=== PATIENT | male | born 1945 | race Caucasian/White ===

== ENCOUNTER 2016-08-02 | Inpatient (IN) | payer MEDICARE, MEDICAID ==
[~2016-08-02] VITALS: Ht 172.7 cm; Wt 75.7 kg
[~2016-08-02] MED LIST: ASCO500C16 GT; CHLO15MO2 MM; CRAN475C GT; DIVA125T2 GT; DOCU-270 GT; DORZ10DR13 EACHEYE; ERGO400C GT; LACT-96 GT; MAGN400O6 GT; MULT473L GT; NA P133E RC; POLY17PO4 GT; SENN-18 GT; SIME80TA15 GT
--- NOTE | 2016-08-04 08:30 | NUR ---
Please see resident's previous account [id number] for all assessments and nurses notes. Originally admitted on 10/05/2012.
[2016-08-04] MEDS ORDERED: PRAVASTATIN SODIUM 20 MG TABLET GT SCH (08:55)
[2016-08-04] MEDS ORDERED: ALBUTEROL HALF STRENGTH 1.25 MG/3 ML VIAL.NEB NEB PRN (08:55)
[2016-08-04] MEDS ORDERED: Z GUARD REMEDY 4 OZ OINT TP PRN (08:55)
[2016-08-04] MEDS ORDERED: PRUNE JUICE GT SCH (08:55)
[2016-08-04] MEDS ORDERED: IPRATROPIUM NEB FS 0.5 MG/2.5 ML AMPUL.NEB NEB PRN (08:55)
[2016-08-04] MEDS ORDERED: LATANOPROST EYE DROP 0.005% 2.5 ML BOTTLE EACHEYE SCH (08:55)
[2016-08-04] MEDS ORDERED: TUBERCULIN,PURIF.PROT.DERIV. 5 TU/0.1 ML VIAL ID SCH (08:55)
[2016-08-04] MEDS ORDERED: ERYTHROMYCIN ETHYLSUCCINATE 200 MG/5 ML SUSPENSION GT PRN (08:55)
[2016-08-04] MEDS ORDERED: ALBUTEROL HALF STRENGTH 1.25 MG/3 ML VIAL.NEB NEB SCH (08:55)
[2016-08-04] MEDS ORDERED: HALOPERIDOL DECANOATE IM 100 MG/ML AMPUL IM SCH (08:55)
[2016-08-04] MEDS ORDERED: METHYLNALTREXONE BROMIDE 12 MG/0.6 ML VIAL SQ SCH (08:55)
[2016-08-04] MEDS ORDERED: HYDROGEN PEROXIDE 480 ML BOTTLE TP PRN (08:55)
[2016-08-04] MEDS ORDERED: NITROGLYCERIN 0.4 MG/TAB BOTTLE SL PRN (08:55)
[2016-08-04] MEDS: POTASSIUM CHLORIDE 10 MEQ GT SCH (09:00)
[2016-08-04] MEDS: CHOLECALCIFEROL (VITAMIN D 3) 400 UNIT TABLET GT SCH ×2 (09:00→20:48)
[2016-08-04] MEDS: HYDROGEN PEROXIDE 480 ML BOTTLE TP SCH ×2 (09:00→20:51)
[2016-08-04] MEDS: PROSOURCE / PROSTAT (PYXIS) 30 ML UDC GT SCH (09:00)
[2016-08-04] MEDS: DOXAZOSIN MESYLATE 8 MG GT SCH (09:00)
[2016-08-04] MEDS: FINASTERIDE (5 MG) 5 MG TABLET GT SCH (09:00)
[2016-08-04] MEDS: Z GUARD REMEDY 4 OZ OINT TP SCH ×2 (09:00→20:51)
[2016-08-04] MEDS: VALACYCLOVIR HCL 500 MG TABLET PEG SCH (09:00)
[2016-08-04] MEDS: VITAMINS A AND D 56.7 GM TUBE TP SCH ×4 (09:00→20:52)
[2016-08-04] MEDS: CICLOPIROX 8% TP SCH (09:00)
[2016-08-04] MEDS: RIFAXIMIN 550 MG TABLET PO SCH ×2 (09:00→17:10)
[2016-08-04] MEDS: ASPIRIN 81 MG TAB.CHEW GT SCH (09:00)
--- NOTE | 2016-08-04 11:09 | NUR ---
Please see resident's previous account [id number] for Social Service assessments, evaluations and notes.
[2016-08-04] MEDS: PRUNE JUICE GT SCH (12:00)
[2016-08-04] MEDS: ALBUTEROL HALF STRENGTH 1.25 MG/3 ML VIAL.NEB NEB SCH ×2 (14:00→20:15)
[2016-08-04 15:48] VITALS: BP 127/77
[2016-08-04] MEDS: CHLORHEXIDINE GLUCONATE 15 ML UDC MM SCH (17:10)
[2016-08-04 20:27] VITALS: BP 120/80
[2016-08-04] MEDS: METHYLNALTREXONE BROMIDE 12 MG/0.6 ML VIAL SQ SCH (20:51)
[2016-08-04] MEDS: PRAVASTATIN SODIUM 20 MG TABLET GT SCH (22:00)
[2016-08-04] MEDS: LATANOPROST EYE DROP 0.005% 2.5 ML BOTTLE EACHEYE SCH (22:00)
[2016-08-05] MEDS: ALBUTEROL HALF STRENGTH 1.25 MG/3 ML VIAL.NEB NEB SCH ×4 (02:28→19:20)
[2016-08-05] MEDS: CHLORHEXIDINE GLUCONATE 15 ML UDC MM SCH ×2 (05:46→17:33)
[2016-08-05 07:45] VITALS: BP 104/66
[2016-08-05] MEDS: CICLOPIROX 8% TP SCH (08:47)
[2016-08-05] MEDS: RIFAXIMIN 550 MG TABLET PO SCH ×2 (08:47→16:15)
[2016-08-05] MEDS: FINASTERIDE (5 MG) 5 MG TABLET GT SCH (08:47)
[2016-08-05] MEDS: VITAMINS A AND D 56.7 GM TUBE TP SCH ×4 (08:47→21:15)
[2016-08-05] MEDS: VALACYCLOVIR HCL 500 MG TABLET PEG SCH (08:47)
[2016-08-05] MEDS: HYDROGEN PEROXIDE 480 ML BOTTLE TP SCH ×2 (08:47→21:15)
[2016-08-05] MEDS: POTASSIUM CHLORIDE 10 MEQ GT SCH (08:47)
[2016-08-05] MEDS: DOXAZOSIN MESYLATE 8 MG GT SCH (08:47)
[2016-08-05] MEDS: Z GUARD REMEDY 4 OZ OINT TP SCH ×2 (08:47→21:15)
[2016-08-05] MEDS: ASPIRIN 81 MG TAB.CHEW GT SCH (08:47)
[2016-08-05] MEDS: PROSOURCE / PROSTAT (PYXIS) 30 ML UDC GT SCH (08:47)
[2016-08-05] MEDS: CHOLECALCIFEROL (VITAMIN D 3) 400 UNIT TABLET GT SCH ×2 (08:47→21:15)
[2016-08-05] MEDS: PRUNE JUICE GT SCH (12:00)
[2016-08-05] MEDS: HYDROCODONE/APAP 7.5/325MG 1 EACH TABLET GT PRN ×2 (16:13→17:33)
[2016-08-05 20:00] VITALS: BP 112/66
[2016-08-05] MEDS: LATANOPROST EYE DROP 0.005% 2.5 ML BOTTLE EACHEYE SCH (21:15)
[2016-08-05] MEDS: PRAVASTATIN SODIUM 20 MG TABLET GT SCH (21:15)
[2016-08-05] MEDS: METHYLNALTREXONE BROMIDE 12 MG/0.6 ML VIAL SQ SCH (21:15)
[2016-08-05] MEDS: FIBERSOURCE HN 1,000 ML BOTTLE GT PRN (21:16)
[2016-08-06] MEDS: ALBUTEROL HALF STRENGTH 1.25 MG/3 ML VIAL.NEB NEB SCH ×4 (01:45→19:56)
[2016-08-06] MEDS: CHLORHEXIDINE GLUCONATE 15 ML UDC MM SCH ×2 (05:43→17:47)
[2016-08-06 07:38] VITALS: BP 117/78
[2016-08-06] MEDS: CICLOPIROX 8% TP SCH (08:23)
[2016-08-06] MEDS: CHOLECALCIFEROL (VITAMIN D 3) 400 UNIT TABLET GT SCH ×2 (08:23→21:33)
[2016-08-06] MEDS: ASPIRIN 81 MG TAB.CHEW GT SCH (08:23)
[2016-08-06] MEDS: Z GUARD REMEDY 4 OZ OINT TP SCH ×2 (08:23→21:33)
[2016-08-06] MEDS: HYDROGEN PEROXIDE 480 ML BOTTLE TP SCH ×2 (08:23→21:33)
[2016-08-06] MEDS: PROSOURCE / PROSTAT (PYXIS) 30 ML UDC GT SCH (08:23)
[2016-08-06] MEDS: FINASTERIDE (5 MG) 5 MG TABLET GT SCH (08:23)
[2016-08-06] MEDS: POTASSIUM CHLORIDE 10 MEQ GT SCH (08:23)
[2016-08-06] MEDS: RIFAXIMIN 550 MG TABLET PO SCH ×2 (08:23→17:47)
[2016-08-06] MEDS: DOXAZOSIN MESYLATE 8 MG GT SCH (08:23)
[2016-08-06] MEDS: VITAMINS A AND D 56.7 GM TUBE TP SCH ×4 (08:23→21:33)
[2016-08-06] MEDS: VALACYCLOVIR HCL 500 MG TABLET PEG SCH (08:23)
[2016-08-06] MEDS: PRUNE JUICE GT SCH (12:00)
--- NOTE | 2016-08-06 20:15 | NUR ---
Pt seen by Denise Pichardo GARDEN EQUIPMENT MECHANIC,no new order.
[2016-08-06 20:40] VITALS: BP 128/79
[2016-08-06] MEDS: FIBERSOURCE HN 1,000 ML BOTTLE GT PRN (20:40)
[2016-08-06] MEDS: METHYLNALTREXONE BROMIDE 12 MG/0.6 ML VIAL SQ SCH (21:33)
[2016-08-06] MEDS: PRAVASTATIN SODIUM 20 MG TABLET GT SCH (21:33)
[2016-08-06] MEDS: LATANOPROST EYE DROP 0.005% 2.5 ML BOTTLE EACHEYE SCH (21:33)
[2016-08-07] MEDS: ALBUTEROL HALF STRENGTH 1.25 MG/3 ML VIAL.NEB NEB SCH ×4 (01:40→19:33)
[2016-08-07] MEDS: CHLORHEXIDINE GLUCONATE 15 ML UDC MM SCH ×2 (05:02→17:02)
[2016-08-07 07:46] VITALS: BP 112/68
[2016-08-07] MEDS: CHOLECALCIFEROL (VITAMIN D 3) 400 UNIT TABLET GT SCH ×2 (08:14→20:57)
[2016-08-07] MEDS: POTASSIUM CHLORIDE 10 MEQ GT SCH (08:14)
[2016-08-07] MEDS: DOXAZOSIN MESYLATE 8 MG GT SCH (08:14)
[2016-08-07] MEDS: PROSOURCE / PROSTAT (PYXIS) 30 ML UDC GT SCH (08:14)
[2016-08-07] MEDS: VALACYCLOVIR HCL 500 MG TABLET PEG SCH (08:14)
[2016-08-07] MEDS: RIFAXIMIN 550 MG TABLET PO SCH ×2 (08:14→17:01)
[2016-08-07] MEDS: FINASTERIDE (5 MG) 5 MG TABLET GT SCH (08:14)
[2016-08-07] MEDS: HYDROGEN PEROXIDE 480 ML BOTTLE TP SCH ×2 (08:14→20:57)
[2016-08-07] MEDS: ASPIRIN 81 MG TAB.CHEW GT SCH (08:14)
[2016-08-07] MEDS: CICLOPIROX 8% TP SCH (08:15)
[2016-08-07] MEDS: VITAMINS A AND D 56.7 GM TUBE TP SCH ×4 (08:15→20:57)
[2016-08-07] MEDS: Z GUARD REMEDY 4 OZ OINT TP SCH ×2 (08:15→20:57)
[2016-08-07] MEDS: PRUNE JUICE GT SCH (12:00)
[2016-08-07 20:01] VITALS: BP 129/80
[2016-08-07] MEDS: HYDROCODONE/APAP 7.5/325MG 1 EACH TABLET GT PRN (20:45)
[2016-08-07] MEDS: METHYLNALTREXONE BROMIDE 12 MG/0.6 ML VIAL SQ SCH (20:57)
[2016-08-07] MEDS: PRAVASTATIN SODIUM 20 MG TABLET GT SCH (21:03)
[2016-08-07] MEDS: LATANOPROST EYE DROP 0.005% 2.5 ML BOTTLE EACHEYE SCH (21:03)
[2016-08-08] MEDS: ALBUTEROL HALF STRENGTH 1.25 MG/3 ML VIAL.NEB NEB SCH ×4 (02:13→19:30)
[2016-08-08] MEDS: CHLORHEXIDINE GLUCONATE 15 ML UDC MM SCH ×2 (05:09→17:38)
[2016-08-08 07:50] VITALS: BP 98/61
[2016-08-08] MEDS: DOXAZOSIN MESYLATE 8 MG GT SCH (09:03)
[2016-08-08] MEDS: ASPIRIN 81 MG TAB.CHEW GT SCH (09:03)
[2016-08-08] MEDS: FINASTERIDE (5 MG) 5 MG TABLET GT SCH (09:04)
[2016-08-08] MEDS: POTASSIUM CHLORIDE 10 MEQ GT SCH (09:04)
[2016-08-08] MEDS: CHOLECALCIFEROL (VITAMIN D 3) 400 UNIT TABLET GT SCH ×2 (09:04→21:04)
[2016-08-08] MEDS: VALACYCLOVIR HCL 500 MG TABLET PEG SCH (09:04)
[2016-08-08] MEDS: RIFAXIMIN 550 MG TABLET PO SCH ×2 (09:04→16:24)
[2016-08-08] MEDS: PROSOURCE / PROSTAT (PYXIS) 30 ML UDC GT SCH (09:04)
[2016-08-08] MEDS: HYDROGEN PEROXIDE 480 ML BOTTLE TP SCH ×2 (09:05→21:04)
[2016-08-08] MEDS: CICLOPIROX 8% TP SCH (09:05)
[2016-08-08] MEDS: Z GUARD REMEDY 4 OZ OINT TP SCH ×2 (09:05→21:04)
[2016-08-08] MEDS: VITAMINS A AND D 56.7 GM TUBE TP SCH ×4 (09:05→21:04)
[2016-08-08] MEDS: PRUNE JUICE GT SCH (11:56)
[2016-08-08 19:42] VITALS: BP 125/82
[2016-08-08] MEDS: METHYLNALTREXONE BROMIDE 12 MG/0.6 ML VIAL SQ SCH (21:04)
[2016-08-08] MEDS: LATANOPROST EYE DROP 0.005% 2.5 ML BOTTLE EACHEYE SCH (21:04)
[2016-08-08] MEDS: PRAVASTATIN SODIUM 20 MG TABLET GT SCH (21:04)
[2016-08-09] MEDS: HYDROCODONE/APAP 7.5/325MG 1 EACH TABLET GT PRN (00:34)
[2016-08-09] MEDS: ALBUTEROL HALF STRENGTH 1.25 MG/3 ML VIAL.NEB NEB SCH ×4 (01:28→20:01)
[2016-08-09] MEDS: CHLORHEXIDINE GLUCONATE 15 ML UDC MM SCH ×2 (05:53→17:33)
[2016-08-09 07:44] VITALS: BP 105/69
[2016-08-09] MEDS: FINASTERIDE (5 MG) 5 MG TABLET GT SCH (08:15)
[2016-08-09] MEDS: DOXAZOSIN MESYLATE 8 MG GT SCH (08:15)
[2016-08-09] MEDS: RIFAXIMIN 550 MG TABLET PO SCH ×2 (08:15→16:35)
[2016-08-09] MEDS: CHOLECALCIFEROL (VITAMIN D 3) 400 UNIT TABLET GT SCH ×2 (08:15→20:38)
[2016-08-09] MEDS: PROSOURCE / PROSTAT (PYXIS) 30 ML UDC GT SCH (08:15)
[2016-08-09] MEDS: ASPIRIN 81 MG TAB.CHEW GT SCH (08:15)
[2016-08-09] MEDS: POTASSIUM CHLORIDE 10 MEQ GT SCH (08:15)
[2016-08-09] MEDS: VALACYCLOVIR HCL 500 MG TABLET PEG SCH (08:15)
[2016-08-09] MEDS: HYDROGEN PEROXIDE 480 ML BOTTLE TP SCH ×2 (09:00→20:40)
[2016-08-09] MEDS: CICLOPIROX 8% TP SCH (09:00)
[2016-08-09] MEDS: VITAMINS A AND D 56.7 GM TUBE TP SCH ×4 (09:00→20:40)
[2016-08-09] MEDS: Z GUARD REMEDY 4 OZ OINT TP SCH ×2 (09:00→20:40)
[2016-08-09] MEDS: PRUNE JUICE GT SCH (12:00)
[2016-08-09 19:51] VITALS: BP 101/65
[2016-08-09] MEDS: METHYLNALTREXONE BROMIDE 12 MG/0.6 ML VIAL SQ SCH (20:40)
[2016-08-09] MEDS: PRAVASTATIN SODIUM 20 MG TABLET GT SCH (21:59)
[2016-08-09] MEDS: LATANOPROST EYE DROP 0.005% 2.5 ML BOTTLE EACHEYE SCH (21:59)
[2016-08-10] MEDS: ALBUTEROL HALF STRENGTH 1.25 MG/3 ML VIAL.NEB NEB SCH ×4 (01:27→19:30)
[2016-08-10] MEDS: CHLORHEXIDINE GLUCONATE 15 ML UDC MM SCH ×2 (05:49→17:28)
[2016-08-10] MEDS: FIBERSOURCE HN 1,000 ML BOTTLE GT PRN (06:37)
[2016-08-10 07:34] VITALS: BP 106/66
[2016-08-10] MEDS: FINASTERIDE (5 MG) 5 MG TABLET GT SCH (09:11)
[2016-08-10] MEDS: CHOLECALCIFEROL (VITAMIN D 3) 400 UNIT TABLET GT SCH ×2 (09:11→21:09)
[2016-08-10] MEDS: VALACYCLOVIR HCL 500 MG TABLET PEG SCH (09:11)
[2016-08-10] MEDS: ASPIRIN 81 MG TAB.CHEW GT SCH (09:11)
[2016-08-10] MEDS: PROSOURCE / PROSTAT (PYXIS) 30 ML UDC GT SCH (09:11)
[2016-08-10] MEDS: POTASSIUM CHLORIDE 10 MEQ GT SCH (09:11)
[2016-08-10] MEDS: DOXAZOSIN MESYLATE 8 MG GT SCH (09:11)
[2016-08-10] MEDS: RIFAXIMIN 550 MG TABLET PO SCH ×2 (09:11→17:28)
[2016-08-10] MEDS: VITAMINS A AND D 56.7 GM TUBE TP SCH ×4 (09:12→21:10)
[2016-08-10] MEDS: HYDROGEN PEROXIDE 480 ML BOTTLE TP SCH ×2 (09:12→21:09)
[2016-08-10] MEDS: CICLOPIROX 8% TP SCH (09:12)
[2016-08-10] MEDS: Z GUARD REMEDY 4 OZ OINT TP SCH ×2 (09:12→21:09)
--- NOTE | 2016-08-10 11:00 | NUR ---
SKIP spoke to resident's as resident's nurse noticed that she was missing her wipes container that was placed on the nursing cart. SW entered resident's room with nurse and found container of wipes hidden behind a picture frame. SKIP notified Mrs. Lopez that she is not allowed to take the container off of the nursing cart, as the nurses use that to wipe their station. Mrs. Lopez became upset stating that she uses those wipes to clean the bed and surroundings. SKIP notified her that EVS has spoken to her about not using those wipes to clean the bed as they can degrade the materials and Mrs. Lopez later stated she does not use those wipes for the bed but only for the tables. SKIP stated that if she needs wipes, she can ask the nurses for them but to please not take the containers off of the nursing carts. Mrs. Lopez disclosed that she feels the staff discriminate against her only however this is not the case and SKIP stated that she has spoken to other families regarding this issue. Mrs. Lopez continued to state that she needs a container of wipes and remained upset. car wash manager was informed and she stated she will talk to her.
[2016-08-10] MEDS: PRUNE JUICE GT SCH (12:00)
[2016-08-10 20:41] VITALS: BP 111/67
[2016-08-10] MEDS: METHYLNALTREXONE BROMIDE 12 MG/0.6 ML VIAL SQ SCH (21:09)
[2016-08-10] MEDS: PRAVASTATIN SODIUM 20 MG TABLET GT SCH (21:10)
[2016-08-10] MEDS: LATANOPROST EYE DROP 0.005% 2.5 ML BOTTLE EACHEYE SCH (21:10)
[2016-08-11] MEDS: ALBUTEROL HALF STRENGTH 1.25 MG/3 ML VIAL.NEB NEB SCH ×5 (01:22→20:27)
[2016-08-11] MEDS: CHLORHEXIDINE GLUCONATE 15 ML UDC MM SCH ×2 (05:17→18:28)
[2016-08-11] MEDS: HYDROCODONE/APAP 7.5/325MG 1 EACH TABLET GT PRN ×2 (05:18→16:58)
[2016-08-11 07:45] VITALS: BP 114/75
[2016-08-11] MEDS: FINASTERIDE (5 MG) 5 MG TABLET GT SCH (08:24)
[2016-08-11] MEDS: VALACYCLOVIR HCL 500 MG TABLET PEG SCH (08:24)
[2016-08-11] MEDS: ASPIRIN 81 MG TAB.CHEW GT SCH (08:24)
[2016-08-11] MEDS: POTASSIUM CHLORIDE 10 MEQ GT SCH (08:24)
[2016-08-11] MEDS: PROSOURCE / PROSTAT (PYXIS) 30 ML UDC GT SCH (08:24)
[2016-08-11] MEDS: RIFAXIMIN 550 MG TABLET PO SCH ×2 (08:24→16:57)
[2016-08-11] MEDS: CHOLECALCIFEROL (VITAMIN D 3) 400 UNIT TABLET GT SCH ×2 (08:24→21:25)
[2016-08-11] MEDS: DOXAZOSIN MESYLATE 8 MG GT SCH (08:24)
[2016-08-11] MEDS: VITAMINS A AND D 56.7 GM TUBE TP SCH ×4 (11:00→21:26)
[2016-08-11] MEDS: CICLOPIROX 8% TP SCH (11:00)
[2016-08-11] MEDS: Z GUARD REMEDY 4 OZ OINT TP SCH ×2 (11:00→21:25)
[2016-08-11] MEDS: HYDROGEN PEROXIDE 480 ML BOTTLE TP SCH ×2 (11:00→21:25)
[2016-08-11] MEDS: PRUNE JUICE GT SCH (11:44)
[2016-08-11 20:35] VITALS: BP 140/80
[2016-08-11] MEDS: METHYLNALTREXONE BROMIDE 12 MG/0.6 ML VIAL SQ SCH (21:25)
[2016-08-11] MEDS: LATANOPROST EYE DROP 0.005% 2.5 ML BOTTLE EACHEYE SCH (21:26)
[2016-08-11] MEDS: PRAVASTATIN SODIUM 20 MG TABLET GT SCH (21:26)
[2016-08-12] MEDS: ALBUTEROL HALF STRENGTH 1.25 MG/3 ML VIAL.NEB NEB SCH ×5 (02:15→20:26)
[2016-08-12] MEDS: CHLORHEXIDINE GLUCONATE 15 ML UDC MM SCH ×2 (06:08→17:05)
[2016-08-12 07:49] VITALS: BP 113/68
[2016-08-12] MEDS: ASPIRIN 81 MG TAB.CHEW GT SCH (09:00)
[2016-08-12] MEDS: FINASTERIDE (5 MG) 5 MG TABLET GT SCH (09:00)
[2016-08-12] MEDS: CHOLECALCIFEROL (VITAMIN D 3) 400 UNIT TABLET GT SCH ×2 (09:00→21:48)
[2016-08-12] MEDS: PROSOURCE / PROSTAT (PYXIS) 30 ML UDC GT SCH (09:00)
[2016-08-12] MEDS: DOXAZOSIN MESYLATE 8 MG GT SCH (09:00)
[2016-08-12] MEDS: POTASSIUM CHLORIDE 10 MEQ GT SCH (09:00)
[2016-08-12] MEDS: RIFAXIMIN 550 MG TABLET PO SCH ×2 (09:00→17:05)
--- NOTE | 2016-08-12 09:07 | NUR ---
Resident was seen by Elizabeth for a haircut.
[2016-08-12] MEDS: Z GUARD REMEDY 4 OZ OINT TP SCH ×2 (09:14→21:48)
[2016-08-12] MEDS: VALACYCLOVIR HCL 500 MG TABLET PEG SCH (09:14)
[2016-08-12] MEDS: CICLOPIROX 8% TP SCH (09:14)
[2016-08-12] MEDS: VITAMINS A AND D 56.7 GM TUBE TP SCH ×4 (09:31→21:48)
[2016-08-12] MEDS: HYDROGEN PEROXIDE 480 ML BOTTLE TP SCH ×2 (09:31→21:48)
--- NOTE | 2016-08-12 11:51 | NUR ---
Resident's ttended support group meeting and addressed concerns present. Concerns will be addressed with appropriate departments (such as PT). SW will follow up with nursing unit clerk regarding concerns.
[2016-08-12] MEDS: PRUNE JUICE GT SCH (12:39)
--- NOTE | 2016-08-12 14:30 | NUR ---
Seen and examined by Denise Pichardo NP, no new order given. Also left a message to Dr. Edwards for PT eval as states that his right foot toes are bending and he needs a brace. Awaiting for order from .
[2016-08-12 19:54] VITALS: BP 119/71
[2016-08-12] MEDS: METHYLNALTREXONE BROMIDE 12 MG/0.6 ML VIAL SQ SCH (21:48)
[2016-08-12] MEDS: PRAVASTATIN SODIUM 20 MG TABLET GT SCH (21:48)
[2016-08-12] MEDS: LATANOPROST EYE DROP 0.005% 2.5 ML BOTTLE EACHEYE SCH (21:48)
[2016-08-12] MEDS: FIBERSOURCE HN 1,000 ML BOTTLE GT PRN (23:51)
[2016-08-13] MEDS: ALBUTEROL HALF STRENGTH 1.25 MG/3 ML VIAL.NEB NEB SCH ×4 (00:51→20:01)
[2016-08-13] MEDS: CHLORHEXIDINE GLUCONATE 15 ML UDC MM SCH ×2 (06:03→17:02)
[2016-08-13 07:32] VITALS: BP 126/59
[2016-08-13] MEDS: DOXAZOSIN MESYLATE 8 MG GT SCH (08:47)
[2016-08-13] MEDS: POTASSIUM CHLORIDE 10 MEQ GT SCH (08:47)
[2016-08-13] MEDS: RIFAXIMIN 550 MG TABLET PO SCH ×2 (08:47→16:51)
[2016-08-13] MEDS: PROSOURCE / PROSTAT (PYXIS) 30 ML UDC GT SCH (08:47)
[2016-08-13] MEDS: ASPIRIN 81 MG TAB.CHEW GT SCH (08:47)
[2016-08-13] MEDS: VALACYCLOVIR HCL 500 MG TABLET PEG SCH (08:47)
[2016-08-13] MEDS: FINASTERIDE (5 MG) 5 MG TABLET GT SCH (08:47)
[2016-08-13] MEDS: CHOLECALCIFEROL (VITAMIN D 3) 400 UNIT TABLET GT SCH ×2 (08:47→20:50)
[2016-08-13] MEDS: HYDROGEN PEROXIDE 480 ML BOTTLE TP SCH ×2 (08:48→20:51)
[2016-08-13] MEDS: CICLOPIROX 8% TP SCH (08:49)
[2016-08-13] MEDS: Z GUARD REMEDY 4 OZ OINT TP SCH ×2 (08:49→20:51)
[2016-08-13] MEDS: VITAMINS A AND D 56.7 GM TUBE TP SCH ×4 (08:49→20:51)
[2016-08-13] MEDS: PRUNE JUICE GT SCH (12:00)
[2016-08-13] MEDS: FIBERSOURCE HN 1,000 ML BOTTLE GT PRN (18:16)
[2016-08-13 19:54] VITALS: BP 131/81
[2016-08-13] MEDS: METHYLNALTREXONE BROMIDE 12 MG/0.6 ML VIAL SQ SCH (20:50)
[2016-08-13] MEDS: LATANOPROST EYE DROP 0.005% 2.5 ML BOTTLE EACHEYE SCH (22:00)
[2016-08-13] MEDS: PRAVASTATIN SODIUM 20 MG TABLET GT SCH (22:00)
[2016-08-14] MEDS: ALBUTEROL HALF STRENGTH 1.25 MG/3 ML VIAL.NEB NEB SCH ×4 (02:19→20:22)
[2016-08-14] MEDS: CHLORHEXIDINE GLUCONATE 15 ML UDC MM SCH (06:06)
[2016-08-14] MEDS: MAGNESIUM HYDROXIDE 30 ML UDC GT PRN (06:31)
[2016-08-14 07:42] VITALS: BP 131/78
[2016-08-14] MEDS: VITAMINS A AND D 56.7 GM TUBE TP SCH ×4 (08:42→21:18)
[2016-08-14] MEDS: CHOLECALCIFEROL (VITAMIN D 3) 400 UNIT TABLET GT SCH ×2 (08:42→21:17)
[2016-08-14] MEDS: Z GUARD REMEDY 4 OZ OINT TP SCH ×2 (08:42→21:18)
[2016-08-14] MEDS: DOXAZOSIN MESYLATE 8 MG GT SCH (08:42)
[2016-08-14] MEDS: FINASTERIDE (5 MG) 5 MG TABLET GT SCH (08:42)
[2016-08-14] MEDS: ASPIRIN 81 MG TAB.CHEW GT SCH (08:42)
[2016-08-14] MEDS: PROSOURCE / PROSTAT (PYXIS) 30 ML UDC GT SCH (08:42)
[2016-08-14] MEDS: RIFAXIMIN 550 MG TABLET PO SCH ×2 (08:42→16:46)
[2016-08-14] MEDS: POTASSIUM CHLORIDE 10 MEQ GT SCH (08:42)
[2016-08-14] MEDS: VALACYCLOVIR HCL 500 MG TABLET PEG SCH (08:42)
[2016-08-14] MEDS: HYDROGEN PEROXIDE 480 ML BOTTLE TP SCH ×2 (08:42→21:17)
[2016-08-14] MEDS: PRUNE JUICE GT SCH (11:21)
[2016-08-14] MEDS: ACETAMINOPHEN 650 MG/20 ML UDC- FOR SA PATIENTS ONLY PO PRN (11:22)
--- NOTE | 2016-08-14 14:25 | NUR ---
INTERDISCIPLINARY TEAM CONFERENCE (IDT) was held today. Resident's did not want to attend. Dr. Mejia and the interdisciplinary team reviewed the current plan of care in detail. New orders were reviewed. No changes were noted and resident remains stable.
[2016-08-14 19:52] VITALS: BP 123/73
[2016-08-14] MEDS: METHYLNALTREXONE BROMIDE 12 MG/0.6 ML VIAL SQ SCH (21:17)
[2016-08-14] MEDS: LATANOPROST EYE DROP 0.005% 2.5 ML BOTTLE EACHEYE SCH (21:17)
[2016-08-14] MEDS: PRAVASTATIN SODIUM 20 MG TABLET GT SCH (21:17)
[2016-08-14] MEDS: HYDROCODONE/APAP 7.5/325MG 1 EACH TABLET GT PRN (23:12)
[2016-08-15] MEDS: ALBUTEROL HALF STRENGTH 1.25 MG/3 ML VIAL.NEB NEB SCH ×4 (01:47→19:30)
[2016-08-15] MEDS: CHLORHEXIDINE GLUCONATE 15 ML UDC MM SCH ×2 (05:05→17:20)
[2016-08-15] MEDS: FIBERSOURCE HN 1,000 ML BOTTLE GT PRN (06:13)
[2016-08-15 08:03] VITALS: BP 124/77
[2016-08-15] MEDS: RIFAXIMIN 550 MG TABLET PO SCH ×2 (08:32→17:20)
[2016-08-15] MEDS: VALACYCLOVIR HCL 500 MG TABLET PEG SCH (08:32)
[2016-08-15] MEDS: ASPIRIN 81 MG TAB.CHEW GT SCH (08:32)
[2016-08-15] MEDS: FINASTERIDE (5 MG) 5 MG TABLET GT SCH (08:32)
[2016-08-15] MEDS: DOXAZOSIN MESYLATE 8 MG GT SCH (08:32)
[2016-08-15] MEDS: CHOLECALCIFEROL (VITAMIN D 3) 400 UNIT TABLET GT SCH ×2 (08:32→21:22)
[2016-08-15] MEDS: PROSOURCE / PROSTAT (PYXIS) 30 ML UDC GT SCH (08:32)
[2016-08-15] MEDS: POTASSIUM CHLORIDE 10 MEQ GT SCH (08:32)
[2016-08-15] MEDS: HYDROGEN PEROXIDE 480 ML BOTTLE TP SCH ×2 (09:00→21:23)
[2016-08-15] MEDS: Z GUARD REMEDY 4 OZ OINT TP SCH ×2 (09:00→21:23)
[2016-08-15] MEDS: VITAMINS A AND D 56.7 GM TUBE TP SCH ×4 (09:00→21:23)
[2016-08-15] MEDS: PRUNE JUICE GT SCH (12:22)
--- NOTE | 2016-08-15 15:10 | NUR ---
Seen and examined by Dr. Edwards, asked if he would like to order PT evaluation, stated that his right foot toes are bending and that he needs a brace. Dr. Edwards stated that what patient needs is an orthosis for the feet and if therapy can evaluate and recommend he is agreeable. New order given for PT eval. All orders noted and carried out.
[2016-08-15 20:01] VITALS: BP 114/71
[2016-08-15] MEDS: METHYLNALTREXONE BROMIDE 12 MG/0.6 ML VIAL SQ SCH (21:22)
[2016-08-15] MEDS: LATANOPROST EYE DROP 0.005% 2.5 ML BOTTLE EACHEYE SCH (21:23)
[2016-08-15] MEDS: PRAVASTATIN SODIUM 20 MG TABLET GT SCH (21:23)
[2016-08-15] MEDS: HYDROCODONE/APAP 7.5/325MG 1 EACH TABLET GT PRN (22:21)
[2016-08-16] MEDS: ALBUTEROL HALF STRENGTH 1.25 MG/3 ML VIAL.NEB NEB SCH ×4 (01:45→19:26)
[2016-08-16] MEDS: FIBERSOURCE HN 1,000 ML BOTTLE GT PRN (03:43)
[2016-08-16] MEDS: CHLORHEXIDINE GLUCONATE 15 ML UDC MM SCH ×2 (05:21→17:47)
[2016-08-16] MEDS: MAGNESIUM HYDROXIDE 30 ML UDC GT PRN (06:16)
[2016-08-16] MEDS: ASPIRIN 81 MG TAB.CHEW GT SCH (08:10)
[2016-08-16] MEDS: PROSOURCE / PROSTAT (PYXIS) 30 ML UDC GT SCH (08:10)
[2016-08-16] MEDS: POTASSIUM CHLORIDE 10 MEQ GT SCH (08:10)
[2016-08-16] MEDS: FINASTERIDE (5 MG) 5 MG TABLET GT SCH (08:10)
[2016-08-16] MEDS: CHOLECALCIFEROL (VITAMIN D 3) 400 UNIT TABLET GT SCH ×2 (08:10→21:07)
[2016-08-16] MEDS: RIFAXIMIN 550 MG TABLET PO SCH ×2 (08:10→17:47)
[2016-08-16] MEDS: DOXAZOSIN MESYLATE 8 MG GT SCH (08:10)
[2016-08-16] MEDS: VALACYCLOVIR HCL 500 MG TABLET PEG SCH (08:10)
[2016-08-16 08:12] VITALS: BP 102/68
[2016-08-16] MEDS: VITAMINS A AND D 56.7 GM TUBE TP SCH ×4 (09:00→21:07)
[2016-08-16] MEDS: Z GUARD REMEDY 4 OZ OINT TP SCH ×2 (09:00→21:07)
[2016-08-16] MEDS: HYDROGEN PEROXIDE 480 ML BOTTLE TP SCH ×2 (09:00→21:07)
[2016-08-16] MEDS: PRUNE JUICE GT SCH (12:09)
[2016-08-16 19:56] VITALS: BP 128/79
[2016-08-16] MEDS: PRAVASTATIN SODIUM 20 MG TABLET GT SCH (21:07)
[2016-08-16] MEDS: LATANOPROST EYE DROP 0.005% 2.5 ML BOTTLE EACHEYE SCH (21:07)
[2016-08-16] MEDS: METHYLNALTREXONE BROMIDE 12 MG/0.6 ML VIAL SQ SCH (21:07)
[2016-08-17] MEDS: ALBUTEROL HALF STRENGTH 1.25 MG/3 ML VIAL.NEB NEB SCH ×4 (01:19→19:11)
[2016-08-17] MEDS: CHLORHEXIDINE GLUCONATE 15 ML UDC MM SCH ×2 (06:07→17:26)
[2016-08-17 08:05] VITALS: BP 133/78
[2016-08-17] MEDS: ASPIRIN 81 MG TAB.CHEW GT SCH (08:53)
[2016-08-17] MEDS: POTASSIUM CHLORIDE 10 MEQ GT SCH (08:55)
[2016-08-17] MEDS: DOXAZOSIN MESYLATE 8 MG GT SCH (08:55)
[2016-08-17] MEDS: FINASTERIDE (5 MG) 5 MG TABLET GT SCH (08:55)
[2016-08-17] MEDS: PROSOURCE / PROSTAT (PYXIS) 30 ML UDC GT SCH (08:56)
[2016-08-17] MEDS: RIFAXIMIN 550 MG TABLET PO SCH ×2 (08:56→17:26)
[2016-08-17] MEDS: VALACYCLOVIR HCL 500 MG TABLET PEG SCH (08:56)
[2016-08-17] MEDS: CHOLECALCIFEROL (VITAMIN D 3) 400 UNIT TABLET GT SCH ×2 (08:57→21:17)
[2016-08-17] MEDS: VITAMINS A AND D 56.7 GM TUBE TP SCH ×4 (08:58→21:17)
[2016-08-17] MEDS: HYDROGEN PEROXIDE 480 ML BOTTLE TP SCH ×2 (08:58→21:17)
[2016-08-17] MEDS: Z GUARD REMEDY 4 OZ OINT TP SCH ×2 (08:58→21:17)
--- NOTE | 2016-08-17 10:00 | NUR ---
Pt was seen by ISSA Jo. She explained to the that there is no brace available just for the pt's toes. ISSA Jo told the to only use the shoes when the pt is walking since there is room inside the shoes for the toes to claw. She also advised the that she can massage the toes. said she will find out what she can use to straighten out the toes.
[2016-08-17] MEDS: PRUNE JUICE GT SCH (12:24)
[2016-08-17 19:44] VITALS: BP 122/77
[2016-08-17] MEDS: PRAVASTATIN SODIUM 20 MG TABLET GT SCH (21:17)
[2016-08-17] MEDS: LATANOPROST EYE DROP 0.005% 2.5 ML BOTTLE EACHEYE SCH (21:17)
[2016-08-17] MEDS: METHYLNALTREXONE BROMIDE 12 MG/0.6 ML VIAL SQ SCH (21:17)
[2016-08-18] MEDS: ALBUTEROL HALF STRENGTH 1.25 MG/3 ML VIAL.NEB NEB SCH ×4 (01:21→19:47)
[2016-08-18] MEDS: CHLORHEXIDINE GLUCONATE 15 ML UDC MM SCH ×2 (06:04→17:30)
[2016-08-18 08:07] VITALS: BP 134/76
[2016-08-18] MEDS: Z GUARD REMEDY 4 OZ OINT TP SCH ×2 (09:00→21:46)
[2016-08-18] MEDS: VITAMINS A AND D 56.7 GM TUBE TP SCH ×4 (09:00→21:46)
[2016-08-18] MEDS: HYDROGEN PEROXIDE 480 ML BOTTLE TP SCH ×2 (09:00→21:46)
[2016-08-18] MEDS: ASPIRIN 81 MG TAB.CHEW GT SCH (09:08)
[2016-08-18] MEDS: DOXAZOSIN MESYLATE 8 MG GT SCH (09:08)
[2016-08-18] MEDS: FINASTERIDE (5 MG) 5 MG TABLET GT SCH (09:09)
[2016-08-18] MEDS: POTASSIUM CHLORIDE 10 MEQ GT SCH (09:09)
[2016-08-18] MEDS: PROSOURCE / PROSTAT (PYXIS) 30 ML UDC GT SCH (09:10)
[2016-08-18] MEDS: CHOLECALCIFEROL (VITAMIN D 3) 400 UNIT TABLET GT SCH ×2 (09:10→21:45)
[2016-08-18] MEDS: VALACYCLOVIR HCL 500 MG TABLET PEG SCH (09:11)
[2016-08-18] MEDS: RIFAXIMIN 550 MG TABLET PO SCH ×2 (09:11→17:30)
--- NOTE | 2016-08-18 12:20 | NUR ---
Seen and examine by Dr. Ibarra, covering for Dr. Edwards, no new order given at this time.
[2016-08-18] MEDS: PRUNE JUICE GT SCH (12:30)
[2016-08-18] MEDS: FIBERSOURCE HN 1,000 ML BOTTLE GT PRN (18:10)
[2016-08-18 19:38] VITALS: BP 139/72
[2016-08-18] MEDS: METHYLNALTREXONE BROMIDE 12 MG/0.6 ML VIAL SQ SCH (21:45)
[2016-08-18] MEDS: LATANOPROST EYE DROP 0.005% 2.5 ML BOTTLE EACHEYE SCH (21:47)
[2016-08-18] MEDS: PRAVASTATIN SODIUM 20 MG TABLET GT SCH (21:47)
[2016-08-19] MEDS: ALBUTEROL HALF STRENGTH 1.25 MG/3 ML VIAL.NEB NEB SCH ×4 (01:34→19:35)
[2016-08-19] MEDS: CHLORHEXIDINE GLUCONATE 15 ML UDC MM SCH ×2 (05:57→17:25)
[2016-08-19] MEDS: HYDROCODONE/APAP 7.5/325MG 1 EACH TABLET GT PRN ×2 (06:02→15:33)
[2016-08-19 07:49] VITALS: BP 128/83
[2016-08-19] MEDS: POTASSIUM CHLORIDE 10 MEQ GT SCH (08:56)
[2016-08-19] MEDS: DOXAZOSIN MESYLATE 8 MG GT SCH (08:56)
[2016-08-19] MEDS: FINASTERIDE (5 MG) 5 MG TABLET GT SCH (08:56)
[2016-08-19] MEDS: CHOLECALCIFEROL (VITAMIN D 3) 400 UNIT TABLET GT SCH ×2 (08:56→21:00)
[2016-08-19] MEDS: PROSOURCE / PROSTAT (PYXIS) 30 ML UDC GT SCH (08:56)
[2016-08-19] MEDS: ASPIRIN 81 MG TAB.CHEW GT SCH (08:56)
[2016-08-19] MEDS: VALACYCLOVIR HCL 500 MG TABLET PEG SCH (08:57)
[2016-08-19] MEDS: Z GUARD REMEDY 4 OZ OINT TP SCH ×2 (08:57→21:00)
[2016-08-19] MEDS: HYDROGEN PEROXIDE 480 ML BOTTLE TP SCH ×2 (08:57→21:00)
[2016-08-19] MEDS: RIFAXIMIN 550 MG TABLET PO SCH ×2 (08:57→16:15)
[2016-08-19] MEDS: VITAMINS A AND D 56.7 GM TUBE TP SCH ×4 (08:57→21:00)
[2016-08-19] MEDS: PRUNE JUICE GT SCH (12:26)
[2016-08-19] MEDS: MAGNESIUM HYDROXIDE 30 ML UDC GT PRN (14:24)
[2016-08-19] MEDS: FIBERSOURCE HN 1,000 ML BOTTLE GT PRN (16:15)
[2016-08-19 19:45] VITALS: BP 114/66
[2016-08-19] MEDS: METHYLNALTREXONE BROMIDE 12 MG/0.6 ML VIAL SQ SCH (21:00)
[2016-08-19] MEDS: PRAVASTATIN SODIUM 20 MG TABLET GT SCH (22:01)
[2016-08-19] MEDS: LATANOPROST EYE DROP 0.005% 2.5 ML BOTTLE EACHEYE SCH (22:01)
[2016-08-20] MEDS: ALBUTEROL HALF STRENGTH 1.25 MG/3 ML VIAL.NEB NEB SCH ×4 (02:25→20:03)
[2016-08-20] MEDS: CHLORHEXIDINE GLUCONATE 15 ML UDC MM SCH ×2 (06:07→16:01)
[2016-08-20] MEDS: FIBERSOURCE HN 1,000 ML BOTTLE GT PRN (06:39)
[2016-08-20 07:40] VITALS: BP 119/56
[2016-08-20] MEDS: ASPIRIN 81 MG TAB.CHEW GT SCH (09:00)
[2016-08-20] MEDS: Z GUARD REMEDY 4 OZ OINT TP SCH ×2 (09:00→21:10)
[2016-08-20] MEDS: FINASTERIDE (5 MG) 5 MG TABLET GT SCH (09:00)
[2016-08-20] MEDS: CHOLECALCIFEROL (VITAMIN D 3) 400 UNIT TABLET GT SCH ×2 (09:00→21:10)
[2016-08-20] MEDS: VITAMINS A AND D 56.7 GM TUBE TP SCH ×4 (09:00→21:10)
[2016-08-20] MEDS: POTASSIUM CHLORIDE 10 MEQ GT SCH (09:00)
[2016-08-20] MEDS: VALACYCLOVIR HCL 500 MG TABLET PEG SCH (09:00)
[2016-08-20] MEDS: HYDROGEN PEROXIDE 480 ML BOTTLE TP SCH ×2 (09:00→21:10)
[2016-08-20] MEDS: PROSOURCE / PROSTAT (PYXIS) 30 ML UDC GT SCH (09:00)
[2016-08-20] MEDS: RIFAXIMIN 550 MG TABLET PO SCH ×2 (09:00→16:00)
[2016-08-20] MEDS: DOXAZOSIN MESYLATE 8 MG GT SCH (09:00)
[2016-08-20] MEDS: HYDROCODONE/APAP 7.5/325MG 1 EACH TABLET GT PRN (11:09)
[2016-08-20] MEDS: PRUNE JUICE GT SCH (12:00)
--- NOTE | 2016-08-20 14:18 | NUR ---
Seen and examined by Denise Pichardo NP, no new order given at this time.
[2016-08-20 20:02] VITALS: BP 118/74
[2016-08-20] MEDS: LATANOPROST EYE DROP 0.005% 2.5 ML BOTTLE EACHEYE SCH (21:10)
[2016-08-20] MEDS: METHYLNALTREXONE BROMIDE 12 MG/0.6 ML VIAL SQ SCH (21:10)
[2016-08-20] MEDS: PRAVASTATIN SODIUM 20 MG TABLET GT SCH (21:11)
[2016-08-21] MEDS: ALBUTEROL HALF STRENGTH 1.25 MG/3 ML VIAL.NEB NEB SCH ×4 (02:28→20:25)
[2016-08-21] MEDS: CHLORHEXIDINE GLUCONATE 15 ML UDC MM SCH ×2 (06:23→17:11)
[2016-08-21] MEDS: FIBERSOURCE HN 1,000 ML BOTTLE GT PRN (06:24)
[2016-08-21 08:08] VITALS: BP 126/75
[2016-08-21] MEDS: ASPIRIN 81 MG TAB.CHEW GT SCH (09:31)
[2016-08-21] MEDS: FINASTERIDE (5 MG) 5 MG TABLET GT SCH (09:31)
[2016-08-21] MEDS: POTASSIUM CHLORIDE 10 MEQ GT SCH (09:31)
[2016-08-21] MEDS: DOXAZOSIN MESYLATE 8 MG GT SCH (09:31)
[2016-08-21] MEDS: PROSOURCE / PROSTAT (PYXIS) 30 ML UDC GT SCH (09:31)
[2016-08-21] MEDS: CHOLECALCIFEROL (VITAMIN D 3) 400 UNIT TABLET GT SCH ×2 (09:32→21:04)
[2016-08-21] MEDS: VALACYCLOVIR HCL 500 MG TABLET PEG SCH (09:32)
[2016-08-21] MEDS: RIFAXIMIN 550 MG TABLET PO SCH ×2 (09:32→17:11)
[2016-08-21] MEDS: VITAMINS A AND D 56.7 GM TUBE TP SCH ×4 (09:32→21:04)
[2016-08-21] MEDS: Z GUARD REMEDY 4 OZ OINT TP SCH ×2 (09:32→21:04)
[2016-08-21] MEDS: HYDROGEN PEROXIDE 480 ML BOTTLE TP SCH ×2 (09:32→21:04)
[2016-08-21] MEDS: PRUNE JUICE GT SCH (11:25)
[2016-08-21 17:43] VITALS: BP 97/45
[2016-08-21] MEDS: METHYLNALTREXONE BROMIDE 12 MG/0.6 ML VIAL SQ SCH (21:04)
[2016-08-21] MEDS: PRAVASTATIN SODIUM 20 MG TABLET GT SCH (21:04)
[2016-08-21] MEDS: LATANOPROST EYE DROP 0.005% 2.5 ML BOTTLE EACHEYE SCH (21:04)
[2016-08-22] MEDS: ALBUTEROL HALF STRENGTH 1.25 MG/3 ML VIAL.NEB NEB SCH ×4 (01:05→19:45)
[2016-08-22] MEDS: FIBERSOURCE HN 1,000 ML BOTTLE GT PRN (04:00)
[2016-08-22] MEDS: CHLORHEXIDINE GLUCONATE 15 ML UDC MM SCH ×2 (05:42→17:06)
[2016-08-22 07:46] VITALS: BP 123/71
[2016-08-22] MEDS: CHOLECALCIFEROL (VITAMIN D 3) 400 UNIT TABLET GT SCH ×2 (08:03→21:11)
[2016-08-22] MEDS: DOXAZOSIN MESYLATE 8 MG GT SCH (08:03)
[2016-08-22] MEDS: POTASSIUM CHLORIDE 10 MEQ GT SCH (08:03)
[2016-08-22] MEDS: RIFAXIMIN 550 MG TABLET PO SCH ×2 (08:03→17:06)
[2016-08-22] MEDS: VALACYCLOVIR HCL 500 MG TABLET PEG SCH (08:03)
[2016-08-22] MEDS: ASPIRIN 81 MG TAB.CHEW GT SCH (08:03)
[2016-08-22] MEDS: PROSOURCE / PROSTAT (PYXIS) 30 ML UDC GT SCH (08:03)
[2016-08-22] MEDS: FINASTERIDE (5 MG) 5 MG TABLET GT SCH (08:03)
[2016-08-22] MEDS: VITAMINS A AND D 56.7 GM TUBE TP SCH ×4 (08:04→21:12)
[2016-08-22] MEDS: Z GUARD REMEDY 4 OZ OINT TP SCH ×2 (08:04→21:12)
[2016-08-22] MEDS ORDERED: HALOPERIDOL DECANOATE IM 100 MG/ML AMPUL IM SCH ×2 (09:00)
[2016-08-22] MEDS: HYDROGEN PEROXIDE 480 ML BOTTLE TP SCH ×2 (09:00→21:12)
[2016-08-22] MEDS: PRUNE JUICE GT SCH (12:52)
[2016-08-22 19:57] VITALS: BP 118/66
[2016-08-22] MEDS: METHYLNALTREXONE BROMIDE 12 MG/0.6 ML VIAL SQ SCH (21:11)
[2016-08-22] MEDS: LATANOPROST EYE DROP 0.005% 2.5 ML BOTTLE EACHEYE SCH (21:12)
[2016-08-22] MEDS: PRAVASTATIN SODIUM 20 MG TABLET GT SCH (21:12)
[2016-08-22] MEDS: HYDROCODONE/APAP 7.5/325MG 1 EACH TABLET GT PRN (22:38)
[2016-08-23] MEDS: ALBUTEROL HALF STRENGTH 1.25 MG/3 ML VIAL.NEB NEB SCH ×4 (00:59→19:29)
[2016-08-23] MEDS: FIBERSOURCE HN 1,000 ML BOTTLE GT PRN (01:44)
[2016-08-23] MEDS: CHLORHEXIDINE GLUCONATE 15 ML UDC MM SCH ×2 (06:04→17:55)
[2016-08-23 07:49] VITALS: BP 124/74
[2016-08-23] MEDS: VALACYCLOVIR HCL 500 MG TABLET PEG SCH (08:23)
[2016-08-23] MEDS: CHOLECALCIFEROL (VITAMIN D 3) 400 UNIT TABLET GT SCH ×2 (08:23→21:12)
[2016-08-23] MEDS: PROSOURCE / PROSTAT (PYXIS) 30 ML UDC GT SCH (08:23)
[2016-08-23] MEDS: ASPIRIN 81 MG TAB.CHEW GT SCH (08:23)
[2016-08-23] MEDS: DOXAZOSIN MESYLATE 8 MG GT SCH (08:23)
[2016-08-23] MEDS: FINASTERIDE (5 MG) 5 MG TABLET GT SCH (08:23)
[2016-08-23] MEDS: POTASSIUM CHLORIDE 10 MEQ GT SCH (08:23)
[2016-08-23] MEDS: RIFAXIMIN 550 MG TABLET PO SCH ×2 (08:39→17:55)
[2016-08-23] MEDS: Z GUARD REMEDY 4 OZ OINT TP SCH ×2 (09:00→21:12)
[2016-08-23] MEDS: VITAMINS A AND D 56.7 GM TUBE TP SCH ×4 (09:00→21:12)
[2016-08-23] MEDS: HYDROGEN PEROXIDE 480 ML BOTTLE TP SCH ×2 (09:00→21:12)
[2016-08-23] MEDS: HYDROCODONE/APAP 7.5/325MG 1 EACH TABLET GT PRN ×2 (12:04→21:31)
[2016-08-23] MEDS: PRUNE JUICE GT SCH (12:25)
[2016-08-23 20:01] VITALS: BP 132/57
[2016-08-23] MEDS: PRAVASTATIN SODIUM 20 MG TABLET GT SCH (21:12)
[2016-08-23] MEDS: LATANOPROST EYE DROP 0.005% 2.5 ML BOTTLE EACHEYE SCH (21:12)
[2016-08-23] MEDS: METHYLNALTREXONE BROMIDE 12 MG/0.6 ML VIAL SQ SCH (21:12)
[2016-08-24] MEDS: ALBUTEROL HALF STRENGTH 1.25 MG/3 ML VIAL.NEB NEB SCH ×4 (01:27→19:30)
[2016-08-24] MEDS: CHLORHEXIDINE GLUCONATE 15 ML UDC MM SCH ×2 (05:32→17:50)
[2016-08-24 07:45] VITALS: BP 101/56
[2016-08-24] MEDS: CHOLECALCIFEROL (VITAMIN D 3) 400 UNIT TABLET GT SCH ×2 (08:41→21:04)
[2016-08-24] MEDS: PROSOURCE / PROSTAT (PYXIS) 30 ML UDC GT SCH (08:41)
[2016-08-24] MEDS: DOXAZOSIN MESYLATE 8 MG GT SCH (08:41)
[2016-08-24] MEDS: VALACYCLOVIR HCL 500 MG TABLET PEG SCH (08:41)
[2016-08-24] MEDS: POTASSIUM CHLORIDE 10 MEQ GT SCH (08:41)
[2016-08-24] MEDS: RIFAXIMIN 550 MG TABLET PO SCH ×2 (08:41→17:49)
[2016-08-24] MEDS: FINASTERIDE (5 MG) 5 MG TABLET GT SCH (08:41)
[2016-08-24] MEDS: Z GUARD REMEDY 4 OZ OINT TP SCH ×2 (08:42→21:04)
[2016-08-24] MEDS: HYDROGEN PEROXIDE 480 ML BOTTLE TP SCH ×2 (08:42→21:04)
[2016-08-24] MEDS: VITAMINS A AND D 56.7 GM TUBE TP SCH ×4 (08:42→21:04)
[2016-08-24] MEDS: ASPIRIN 81 MG TAB.CHEW GT SCH (08:43)
--- NOTE | 2016-08-24 10:40 | NUR ---
Seen and examined by Dr. Mejia, NNO given.
[2016-08-24] MEDS: PRUNE JUICE GT SCH (12:00)
[2016-08-24 19:51] VITALS: BP 125/74
--- NOTE | 2016-08-24 20:40 | NUR ---
RN NOTES Seen and examined by Dr. Ibarra with new orders: CBC,CMP, thyroid stimulating hormone level, noted and carried out. at bedside aware.
[2016-08-24] MEDS: LATANOPROST EYE DROP 0.005% 2.5 ML BOTTLE EACHEYE SCH (21:04)
[2016-08-24] MEDS: PRAVASTATIN SODIUM 20 MG TABLET GT SCH (21:04)
[2016-08-24] MEDS: METHYLNALTREXONE BROMIDE 12 MG/0.6 ML VIAL SQ SCH (21:04)
[2016-08-24] MEDS: MAGNESIUM HYDROXIDE 30 ML UDC GT PRN (22:02)
[2016-08-25] MEDS: ALBUTEROL HALF STRENGTH 1.25 MG/3 ML VIAL.NEB NEB SCH ×4 (00:50→20:21)
[2016-08-25] MEDS: CHLORHEXIDINE GLUCONATE 15 ML UDC MM SCH ×2 (05:34→18:35)
[2016-08-25] MEDS: BISACODYL SUPP (10 MG) 10 MG/SUPP.RECT SUPP.RECT RC PRN (06:41)
[2016-08-25] MEDS: FIBERSOURCE HN 1,000 ML BOTTLE GT PRN (06:42)
[2016-08-25 07:11] LABS: THYROID STIMULATING HORMONE 1.359 uIU/mL (0.358-3.74)
[2016-08-25 07:17] LABS: ALBUMIN 2.7 g/dL (3.4-5.0); BILIRUBIN,TOTAL 0.5 mg/dL (0.2-1.0); CALCIUM, SERUM 8.4 mg/dL (8.5-10.1); CREATININE 0.7 mg/dL (0.6-1.3); POTASSIUM 4.1 mmol/L (3.5-5.1); TOTAL PROTEIN, SERUM 6.5 g/dL (6.4-8.2)
[2016-08-25 07:39] LABS: BASOPHILS % (AUTO) 1.5 % (0.0-2.0); EOSINOPHILS # (AUTO) 0.4 /CMM (0.0-0.7); EOSINOPHILS % (AUTO) 11.5 % (0.0-6.0); HEMATOCRIT 44 % (39-51); HEMOGLOBIN 14.6 g/dL (13.5-17.5); LYMPHOCYTES % (AUTO) 28.3 % (20.0-44.0); MEAN CORPUSCULAR HEMOGLOBIN 33 PG (26.0-33.0); MEAN CORPUSCULAR HGB CONC 34 g/dl (31.0-36.0); MEAN CORPUSCULAR VOLUME 99 fL (80-96); MONOCYTES # (AUTO) 0.4 /CMM (0.1-1.30); MONOCYTES % (AUTO) 11.1 % (2.0-12.0); NEUTROPHILS # (AUTO) 1.6 /CMM (1.8-8.9); NEUTROPHILS % (AUTO) 47.6 % (43.0-81.0); RDW COEFFICIENT OF VARIATION 13.8 (11.5-15.0); WHITE BLOOD COUNT (AUTO) 3.4 K/uL (4.3-11.0)
[2016-08-25 07:59] VITALS: BP 113/77
[2016-08-25] MEDS: PROSOURCE / PROSTAT (PYXIS) 30 ML UDC GT SCH (08:16)
[2016-08-25] MEDS: ASPIRIN 81 MG TAB.CHEW GT SCH (08:16)
[2016-08-25] MEDS: RIFAXIMIN 550 MG TABLET PO SCH ×2 (08:16→17:45)
[2016-08-25] MEDS: CHOLECALCIFEROL (VITAMIN D 3) 400 UNIT TABLET GT SCH ×2 (08:16→21:00)
[2016-08-25] MEDS: DOXAZOSIN MESYLATE 8 MG GT SCH (08:16)
[2016-08-25] MEDS: VALACYCLOVIR HCL 500 MG TABLET PEG SCH (08:16)
[2016-08-25] MEDS: FINASTERIDE (5 MG) 5 MG TABLET GT SCH (08:16)
[2016-08-25] MEDS: POTASSIUM CHLORIDE 10 MEQ GT SCH (08:16)
[2016-08-25 08:20] LABS: PLATELET COUNT (AUTO) 100 /CMM (150-450)
[2016-08-25] MEDS: VITAMINS A AND D 56.7 GM TUBE TP SCH ×4 (09:00→21:00)
[2016-08-25] MEDS: HYDROGEN PEROXIDE 480 ML BOTTLE TP SCH ×2 (09:00→21:00)
[2016-08-25] MEDS: Z GUARD REMEDY 4 OZ OINT TP SCH ×2 (09:00→21:00)
[2016-08-25] MEDS: PRUNE JUICE GT SCH (12:00)
--- NOTE | 2016-08-25 14:00 | NUR ---
Seen by ISABELA Pichardo. She is aware of pt's CBC and BMP results. No new order.
[2016-08-25 20:41] VITALS: BP 117/74
[2016-08-25] MEDS: METHYLNALTREXONE BROMIDE 12 MG/0.6 ML VIAL SQ SCH (21:00)
[2016-08-25] MEDS: PRAVASTATIN SODIUM 20 MG TABLET GT SCH (22:01)
[2016-08-25] MEDS: LATANOPROST EYE DROP 0.005% 2.5 ML BOTTLE EACHEYE SCH (22:01)
[2016-08-26] MEDS: ALBUTEROL HALF STRENGTH 1.25 MG/3 ML VIAL.NEB NEB SCH ×4 (01:29→19:30)
[2016-08-26] MEDS: CHLORHEXIDINE GLUCONATE 15 ML UDC MM SCH ×2 (05:39→17:00)
[2016-08-26 08:06] VITALS: BP 132/83
[2016-08-26] MEDS: POTASSIUM CHLORIDE 10 MEQ GT SCH (09:36)
[2016-08-26] MEDS: FINASTERIDE (5 MG) 5 MG TABLET GT SCH (09:36)
[2016-08-26] MEDS: DOXAZOSIN MESYLATE 8 MG GT SCH (09:36)
[2016-08-26] MEDS: ASPIRIN 81 MG TAB.CHEW GT SCH (09:36)
[2016-08-26] MEDS: VITAMINS A AND D 56.7 GM TUBE TP SCH ×4 (09:36→21:10)
[2016-08-26] MEDS: HYDROGEN PEROXIDE 480 ML BOTTLE TP SCH ×2 (09:36→21:09)
[2016-08-26] MEDS: RIFAXIMIN 550 MG TABLET PO SCH ×2 (09:36→17:00)
[2016-08-26] MEDS: CHOLECALCIFEROL (VITAMIN D 3) 400 UNIT TABLET GT SCH ×2 (09:36→21:09)
[2016-08-26] MEDS: Z GUARD REMEDY 4 OZ OINT TP SCH ×2 (09:36→21:09)
[2016-08-26] MEDS: VALACYCLOVIR HCL 500 MG TABLET PEG SCH (09:36)
[2016-08-26] MEDS: PROSOURCE / PROSTAT (PYXIS) 30 ML UDC GT SCH (09:36)
[2016-08-26] MEDS: PRUNE JUICE GT SCH (12:47)
[2016-08-26 19:48] VITALS: BP 132/85
[2016-08-26] MEDS: METHYLNALTREXONE BROMIDE 12 MG/0.6 ML VIAL SQ SCH (21:09)
[2016-08-26] MEDS: PRAVASTATIN SODIUM 20 MG TABLET GT SCH (21:10)
[2016-08-26] MEDS: LATANOPROST EYE DROP 0.005% 2.5 ML BOTTLE EACHEYE SCH (21:10)
[2016-08-27] MEDS: ALBUTEROL HALF STRENGTH 1.25 MG/3 ML VIAL.NEB NEB SCH ×4 (00:55→19:42)
[2016-08-27] MEDS: FIBERSOURCE HN 1,000 ML BOTTLE GT PRN ×2 (01:27→22:09)
[2016-08-27] MEDS: CHLORHEXIDINE GLUCONATE 15 ML UDC MM SCH ×2 (06:06→17:37)
[2016-08-27 07:45] VITALS: BP_SYST 105; BP_SYST 120; BP_DIAS 64; BP_DIAS 75
[2016-08-27] MEDS: PROSOURCE / PROSTAT (PYXIS) 30 ML UDC GT SCH (08:17)
[2016-08-27] MEDS: POTASSIUM CHLORIDE 10 MEQ GT SCH (08:17)
[2016-08-27] MEDS: ASPIRIN 81 MG TAB.CHEW GT SCH (08:17)
[2016-08-27] MEDS: DOXAZOSIN MESYLATE 8 MG GT SCH (08:17)
[2016-08-27] MEDS: FINASTERIDE (5 MG) 5 MG TABLET GT SCH (08:17)
[2016-08-27] MEDS: CHOLECALCIFEROL (VITAMIN D 3) 400 UNIT TABLET GT SCH ×2 (08:17→20:57)
[2016-08-27] MEDS: Z GUARD REMEDY 4 OZ OINT TP SCH ×2 (08:18→21:47)
[2016-08-27] MEDS: VITAMINS A AND D 56.7 GM TUBE TP SCH ×4 (08:18→21:48)
[2016-08-27] MEDS: RIFAXIMIN 550 MG TABLET PO SCH ×2 (08:18→17:37)
[2016-08-27] MEDS: HYDROGEN PEROXIDE 480 ML BOTTLE TP SCH ×2 (08:18→21:47)
[2016-08-27] MEDS: VALACYCLOVIR HCL 500 MG TABLET PEG SCH (08:18)
[2016-08-27] MEDS: PRUNE JUICE GT SCH (12:00)
--- NOTE | 2016-08-27 16:10 | NUR ---
Seen and examined by Denise Pichardo, OIL HOUSE ATTENDANT, NNO given.
[2016-08-27] MEDS: HYDROCODONE/APAP 7.5/325MG 1 EACH TABLET GT PRN (19:10)
[2016-08-27 20:01] VITALS: BP 134/78
[2016-08-27] MEDS: METHYLNALTREXONE BROMIDE 12 MG/0.6 ML VIAL SQ SCH (20:57)
[2016-08-27] MEDS: PRAVASTATIN SODIUM 20 MG TABLET GT SCH (21:48)
[2016-08-27] MEDS: LATANOPROST EYE DROP 0.005% 2.5 ML BOTTLE EACHEYE SCH (21:48)
[2016-08-28] MEDS: ALBUTEROL HALF STRENGTH 1.25 MG/3 ML VIAL.NEB NEB SCH ×4 (01:29→19:50)
[2016-08-28] MEDS: CHLORHEXIDINE GLUCONATE 15 ML UDC MM SCH ×2 (05:56→17:07)
[2016-08-28 07:45] VITALS: BP 131/85
[2016-08-28] MEDS: ASPIRIN 81 MG TAB.CHEW GT SCH (08:02)
[2016-08-28] MEDS: PROSOURCE / PROSTAT (PYXIS) 30 ML UDC GT SCH (08:03)
[2016-08-28] MEDS: CHOLECALCIFEROL (VITAMIN D 3) 400 UNIT TABLET GT SCH ×2 (08:03→21:12)
[2016-08-28] MEDS: RIFAXIMIN 550 MG TABLET PO SCH ×2 (08:03→17:07)
[2016-08-28] MEDS: DOXAZOSIN MESYLATE 8 MG GT SCH (08:03)
[2016-08-28] MEDS: FINASTERIDE (5 MG) 5 MG TABLET GT SCH (08:03)
[2016-08-28] MEDS: VALACYCLOVIR HCL 500 MG TABLET PEG SCH (08:03)
[2016-08-28] MEDS: POTASSIUM CHLORIDE 10 MEQ GT SCH (08:03)
[2016-08-28] MEDS: VITAMINS A AND D 56.7 GM TUBE TP SCH ×4 (08:04→21:16)
[2016-08-28] MEDS: Z GUARD REMEDY 4 OZ OINT TP SCH ×2 (08:04→21:16)
[2016-08-28] MEDS: HYDROGEN PEROXIDE 480 ML BOTTLE TP SCH ×2 (08:04→21:16)
[2016-08-28] MEDS: PRUNE JUICE GT SCH (12:01)
[2016-08-28] MEDS: FIBERSOURCE HN 1,000 ML BOTTLE GT PRN (15:39)
[2016-08-28] MEDS: HYDROCODONE/APAP 7.5/325MG 1 EACH TABLET GT PRN (18:05)
[2016-08-28 20:06] VITALS: BP 131/81
[2016-08-28] MEDS: METHYLNALTREXONE BROMIDE 12 MG/0.6 ML VIAL SQ SCH (21:16)
[2016-08-28] MEDS: PRAVASTATIN SODIUM 20 MG TABLET GT SCH (21:18)
[2016-08-28] MEDS: LATANOPROST EYE DROP 0.005% 2.5 ML BOTTLE EACHEYE SCH (21:55)
[2016-08-29] MEDS: ALBUTEROL HALF STRENGTH 1.25 MG/3 ML VIAL.NEB NEB SCH ×4 (02:02→19:45)
[2016-08-29] MEDS: CHLORHEXIDINE GLUCONATE 15 ML UDC MM SCH ×2 (06:16→17:22)
[2016-08-29 08:00] VITALS: BP 106/68
[2016-08-29] MEDS: Z GUARD REMEDY 4 OZ OINT TP SCH ×2 (08:44→21:07)
[2016-08-29] MEDS: ASPIRIN 81 MG TAB.CHEW GT SCH (08:44)
[2016-08-29] MEDS: PROSOURCE / PROSTAT (PYXIS) 30 ML UDC GT SCH (08:44)
[2016-08-29] MEDS: VITAMINS A AND D 56.7 GM TUBE TP SCH ×4 (08:44→21:07)
[2016-08-29] MEDS: VALACYCLOVIR HCL 500 MG TABLET PEG SCH (08:44)
[2016-08-29] MEDS: CHOLECALCIFEROL (VITAMIN D 3) 400 UNIT TABLET GT SCH ×2 (08:44→21:07)
[2016-08-29] MEDS: POTASSIUM CHLORIDE 10 MEQ GT SCH (08:44)
[2016-08-29] MEDS: FINASTERIDE (5 MG) 5 MG TABLET GT SCH (08:44)
[2016-08-29] MEDS: DOXAZOSIN MESYLATE 8 MG GT SCH (08:44)
[2016-08-29] MEDS: RIFAXIMIN 550 MG TABLET PO SCH ×2 (08:44→17:22)
[2016-08-29] MEDS: HYDROGEN PEROXIDE 480 ML BOTTLE TP SCH ×2 (08:44→20:33)
[2016-08-29] MEDS: FIBERSOURCE HN 1,000 ML BOTTLE GT PRN (08:47)
[2016-08-29] MEDS: PRUNE JUICE GT SCH (12:21)
[2016-08-29] MEDS: HYDROCODONE/APAP 7.5/325MG 1 EACH TABLET GT PRN (13:44)
--- NOTE | 2016-08-29 15:33 | NUR ---
Seen and examined by Dr. Edwards, no new order given at this time. MD made aware that resident has not been ambulating as he did in the past, according to MD the cause of it is the Haldol. Per MD may discontinue the Haldol and restart Depakote to manage his aggressive behavior. Resident does not manifest aggressive behavior in the past month or so.
--- NOTE | 2016-08-29 16:42 | NUR ---
Received and noted an order from Dr. Edwards to discontinue Haldol IM. Will notify when she comes back.
[2016-08-29 19:55] VITALS: BP 128/75
[2016-08-29] MEDS: METHYLNALTREXONE BROMIDE 12 MG/0.6 ML VIAL SQ SCH (20:33)
[2016-08-29] MEDS: BISACODYL SUPP (10 MG) 10 MG/SUPP.RECT SUPP.RECT RC PRN (20:33)
[2016-08-29] MEDS: PRAVASTATIN SODIUM 20 MG TABLET GT SCH (21:07)
[2016-08-29] MEDS: LATANOPROST EYE DROP 0.005% 2.5 ML BOTTLE EACHEYE SCH (21:07)
[2016-08-30] MEDS: FIBERSOURCE HN 1,000 ML BOTTLE GT PRN ×2 (02:05→18:36)
[2016-08-30] MEDS: ALBUTEROL HALF STRENGTH 1.25 MG/3 ML VIAL.NEB NEB SCH ×4 (02:30→19:35)
[2016-08-30] MEDS: CHLORHEXIDINE GLUCONATE 15 ML UDC MM SCH ×2 (05:29→17:27)
[2016-08-30 08:08] VITALS: BP 122/79
[2016-08-30] MEDS: DOXAZOSIN MESYLATE 8 MG GT SCH (08:34)
[2016-08-30] MEDS: POTASSIUM CHLORIDE 10 MEQ GT SCH (08:34)
[2016-08-30] MEDS: ASPIRIN 81 MG TAB.CHEW GT SCH (08:34)
[2016-08-30] MEDS: PROSOURCE / PROSTAT (PYXIS) 30 ML UDC GT SCH (08:34)
[2016-08-30] MEDS: CHOLECALCIFEROL (VITAMIN D 3) 400 UNIT TABLET GT SCH ×2 (08:34→20:14)
[2016-08-30] MEDS: FINASTERIDE (5 MG) 5 MG TABLET GT SCH (08:34)
[2016-08-30] MEDS: VALACYCLOVIR HCL 500 MG TABLET PEG SCH (08:35)
[2016-08-30] MEDS: RIFAXIMIN 550 MG TABLET PO SCH ×2 (08:35→17:27)
[2016-08-30] MEDS: Z GUARD REMEDY 4 OZ OINT TP SCH ×2 (09:00→20:15)
[2016-08-30] MEDS: VITAMINS A AND D 56.7 GM TUBE TP SCH ×4 (09:00→20:15)
[2016-08-30] MEDS: HYDROGEN PEROXIDE 480 ML BOTTLE TP SCH ×2 (09:00→20:15)
[2016-08-30] MEDS: PRUNE JUICE GT SCH (12:24)
[2016-08-30] MEDS: METHYLNALTREXONE BROMIDE 12 MG/0.6 ML VIAL SQ SCH (20:15)
[2016-08-30 20:22] VITALS: BP 123/77
[2016-08-30] MEDS: LATANOPROST EYE DROP 0.005% 2.5 ML BOTTLE EACHEYE SCH (22:25)
[2016-08-30] MEDS: PRAVASTATIN SODIUM 20 MG TABLET GT SCH (22:25)
[2016-08-31] MEDS: ALBUTEROL HALF STRENGTH 1.25 MG/3 ML VIAL.NEB NEB SCH ×4 (01:37→20:26)
[2016-08-31] MEDS: CHLORHEXIDINE GLUCONATE 15 ML UDC MM SCH ×2 (06:12→17:13)
[2016-08-31 07:42] VITALS: BP_SYST 102; BP_SYST 128; BP_DIAS 62; BP_DIAS 76
[2016-08-31] MEDS: ASPIRIN 81 MG TAB.CHEW GT SCH (08:26)
[2016-08-31] MEDS: FINASTERIDE (5 MG) 5 MG TABLET GT SCH (08:27)
[2016-08-31] MEDS: VALACYCLOVIR HCL 500 MG TABLET PEG SCH (08:27)
[2016-08-31] MEDS: PROSOURCE / PROSTAT (PYXIS) 30 ML UDC GT SCH (08:27)
[2016-08-31] MEDS: Z GUARD REMEDY 4 OZ OINT TP SCH ×2 (08:27→20:16)
[2016-08-31] MEDS: CHOLECALCIFEROL (VITAMIN D 3) 400 UNIT TABLET GT SCH ×2 (08:27→20:16)
[2016-08-31] MEDS: POTASSIUM CHLORIDE 10 MEQ GT SCH (08:27)
[2016-08-31] MEDS: VITAMINS A AND D 56.7 GM TUBE TP SCH ×4 (08:27→20:16)
[2016-08-31] MEDS: RIFAXIMIN 550 MG TABLET PO SCH ×2 (08:27→17:13)
[2016-08-31] MEDS: HYDROGEN PEROXIDE 480 ML BOTTLE TP SCH ×2 (08:27→20:16)
[2016-08-31] MEDS: DOXAZOSIN MESYLATE 8 MG GT SCH (08:27)
[2016-08-31] MEDS: PRUNE JUICE GT SCH (11:50)
[2016-08-31 19:57] VITALS: BP 120/81
[2016-08-31] MEDS: METHYLNALTREXONE BROMIDE 12 MG/0.6 ML VIAL SQ SCH (20:16)
[2016-08-31] MEDS: LATANOPROST EYE DROP 0.005% 2.5 ML BOTTLE EACHEYE SCH (21:05)
[2016-08-31] MEDS: PRAVASTATIN SODIUM 20 MG TABLET GT SCH (21:05)
[2016-09-01] MEDS: ALBUTEROL HALF STRENGTH 1.25 MG/3 ML VIAL.NEB NEB SCH ×4 (02:26→20:14)
[2016-09-01] MEDS: CHLORHEXIDINE GLUCONATE 15 ML UDC MM SCH ×2 (05:54→17:56)
--- NOTE | 2016-09-01 07:45 | NUR ---
RN OPENING RECEIVED PT STABLE. FLACC 0 NO S/S SOB, DIFFICULTY BREATHING. PT LEFT WITH CALL LIGHT IN REACH, TO HEAR TV, BED LOWERED AND LOCKED, RAILS UPX3 FOR SAFETY WITH BED ALARM ON.
[2016-09-01 07:48] VITALS: BP 126/79
[2016-09-01] MEDS: VITAMINS A AND D 56.7 GM TUBE TP SCH ×4 (09:00→20:12)
[2016-09-01] MEDS: PROSOURCE / PROSTAT (PYXIS) 30 ML UDC GT SCH (09:21)
[2016-09-01] MEDS: ASPIRIN 81 MG TAB.CHEW GT SCH (09:21)
[2016-09-01] MEDS: VALACYCLOVIR HCL 500 MG TABLET PEG SCH (09:21)
[2016-09-01] MEDS: FINASTERIDE (5 MG) 5 MG TABLET GT SCH (09:21)
[2016-09-01] MEDS: CHOLECALCIFEROL (VITAMIN D 3) 400 UNIT TABLET GT SCH ×2 (09:22→20:10)
[2016-09-01] MEDS: Z GUARD REMEDY 4 OZ OINT TP SCH ×2 (09:22→20:11)
[2016-09-01] MEDS: HYDROGEN PEROXIDE 480 ML BOTTLE TP SCH ×2 (09:22→20:11)
[2016-09-01] MEDS: DOXAZOSIN MESYLATE 8 MG GT SCH (09:24)
[2016-09-01 09:25] VITALS: BP 126/79
[2016-09-01] MEDS: POTASSIUM CHLORIDE 10 MEQ GT SCH (09:25)
[2016-09-01] MEDS: RIFAXIMIN 550 MG TABLET PO SCH ×2 (09:27→17:56)
--- NOTE | 2016-09-01 11:20 | NUR ---
RN NOTES PAUSED FEEDING WILL RESUME IN 4 HOURS ORDERED
[2016-09-01] MEDS: PRUNE JUICE GT SCH (11:29)
--- NOTE | 2016-09-01 12:00 | NUR ---
RN NOTES AT BEDSIDE. PT UP IN CHAIR
--- NOTE | 2016-09-01 15:20 | NUR ---
RN NOTES RESUMED FEEDING ORDERED. NEW BAG/TUBING. PT STABLE
[2016-09-01] MEDS: FIBERSOURCE HN 1,000 ML BOTTLE GT PRN (15:21)
--- NOTE | 2016-09-01 15:40 | NUR ---
Resident was seen by Dr. Holliday (crew member).
--- NOTE | 2016-09-01 19:12 | NUR ---
RN CLOSING PT STABLE, G TUBE CARE, TRACH CARE COMPLETED PRN. SUCTIONED PRN, TURNED Q2H, SKIN CARE PRN SOILING. NO CHANGES PATIENT STABLE. FEEDING RUNNING ORDERED AND VENT SETTINGS ORDERED
[2016-09-01 19:40] VITALS: BP 130/73
[2016-09-01] MEDS: METHYLNALTREXONE BROMIDE 12 MG/0.6 ML VIAL SQ SCH (20:11)
[2016-09-01] MEDS: PRAVASTATIN SODIUM 20 MG TABLET GT SCH (22:00)
[2016-09-01] MEDS: LATANOPROST EYE DROP 0.005% 2.5 ML BOTTLE EACHEYE SCH (22:00)
[2016-09-02] MEDS: ALBUTEROL HALF STRENGTH 1.25 MG/3 ML VIAL.NEB NEB SCH ×4 (01:17→19:28)
[2016-09-02] MEDS: CHLORHEXIDINE GLUCONATE 15 ML UDC MM SCH ×2 (06:18→17:55)
[2016-09-02 07:45] VITALS: BP 136/83
[2016-09-02] MEDS: HYDROGEN PEROXIDE 480 ML BOTTLE TP SCH ×2 (08:38→20:49)
[2016-09-02] MEDS: POTASSIUM CHLORIDE 10 MEQ GT SCH (08:38)
[2016-09-02] MEDS: FINASTERIDE (5 MG) 5 MG TABLET GT SCH (08:38)
[2016-09-02] MEDS: Z GUARD REMEDY 4 OZ OINT TP SCH ×2 (08:38→20:49)
[2016-09-02] MEDS: RIFAXIMIN 550 MG TABLET PO SCH ×2 (08:38→17:55)
[2016-09-02] MEDS: CHOLECALCIFEROL (VITAMIN D 3) 400 UNIT TABLET GT SCH ×2 (08:38→20:48)
[2016-09-02] MEDS: DOXAZOSIN MESYLATE 8 MG GT SCH (08:38)
[2016-09-02] MEDS: VALACYCLOVIR HCL 500 MG TABLET PEG SCH (08:38)
[2016-09-02] MEDS: ASPIRIN 81 MG TAB.CHEW GT SCH (08:38)
[2016-09-02] MEDS: PROSOURCE / PROSTAT (PYXIS) 30 ML UDC GT SCH (08:38)
[2016-09-02] MEDS: FIBERSOURCE HN 1,000 ML BOTTLE GT PRN (08:39)
[2016-09-02] MEDS: VITAMINS A AND D 56.7 GM TUBE TP SCH ×4 (08:39→20:49)
[2016-09-02] MEDS: PRUNE JUICE GT SCH (11:08)
[2016-09-02] MEDS: BISACODYL SUPP (10 MG) 10 MG/SUPP.RECT SUPP.RECT RC PRN (12:26)
[2016-09-02 19:29] VITALS: BP 120/68
[2016-09-02] MEDS: METHYLNALTREXONE BROMIDE 12 MG/0.6 ML VIAL SQ SCH (20:49)
[2016-09-02] MEDS: LATANOPROST EYE DROP 0.005% 2.5 ML BOTTLE EACHEYE SCH (21:13)
[2016-09-02] MEDS: PRAVASTATIN SODIUM 20 MG TABLET GT SCH (21:13)
[2016-09-03] MEDS: ALBUTEROL HALF STRENGTH 1.25 MG/3 ML VIAL.NEB NEB SCH ×4 (01:50→19:30)
[2016-09-03] MEDS: CHLORHEXIDINE GLUCONATE 15 ML UDC MM SCH ×2 (05:26→18:13)
[2016-09-03] MEDS: FIBERSOURCE HN 1,000 ML BOTTLE GT PRN (05:27)
[2016-09-03 07:43] VITALS: BP 120/77
[2016-09-03] MEDS: RIFAXIMIN 550 MG TABLET PO SCH ×2 (08:27→16:17)
[2016-09-03] MEDS: FINASTERIDE (5 MG) 5 MG TABLET GT SCH (08:27)
[2016-09-03] MEDS: ASPIRIN 81 MG TAB.CHEW GT SCH (08:27)
[2016-09-03] MEDS: POTASSIUM CHLORIDE 10 MEQ GT SCH (08:27)
[2016-09-03] MEDS: DOXAZOSIN MESYLATE 8 MG GT SCH (08:27)
[2016-09-03] MEDS: CHOLECALCIFEROL (VITAMIN D 3) 400 UNIT TABLET GT SCH ×2 (08:27→20:38)
[2016-09-03] MEDS: VALACYCLOVIR HCL 500 MG TABLET PEG SCH (08:27)
[2016-09-03] MEDS: PROSOURCE / PROSTAT (PYXIS) 30 ML UDC GT SCH (08:27)
[2016-09-03] MEDS: Z GUARD REMEDY 4 OZ OINT TP SCH ×2 (08:28→20:38)
[2016-09-03] MEDS: VITAMINS A AND D 56.7 GM TUBE TP SCH ×4 (08:28→20:38)
[2016-09-03] MEDS: HYDROGEN PEROXIDE 480 ML BOTTLE TP SCH ×2 (08:28→20:38)
[2016-09-03] MEDS: HYDROCODONE/APAP 7.5/325MG 1 EACH TABLET GT PRN (11:37)
[2016-09-03] MEDS: PRUNE JUICE GT SCH (11:37)
[2016-09-03] MEDS: METHYLNALTREXONE BROMIDE 12 MG/0.6 ML VIAL SQ SCH (20:38)
[2016-09-03] MEDS: PRAVASTATIN SODIUM 20 MG TABLET GT SCH (21:15)
[2016-09-03] MEDS: LATANOPROST EYE DROP 0.005% 2.5 ML BOTTLE EACHEYE SCH (21:15)
[2016-09-03 22:20] VITALS: BP 131/91
[2016-09-04] MEDS: ALBUTEROL HALF STRENGTH 1.25 MG/3 ML VIAL.NEB NEB SCH ×4 (01:53→19:30)
[2016-09-04] MEDS: FIBERSOURCE HN 1,000 ML BOTTLE GT PRN (05:16)
[2016-09-04] MEDS: CHLORHEXIDINE GLUCONATE 15 ML UDC MM SCH ×2 (05:16→18:00)
[2016-09-04] MEDS: [UNRECOGNIZED DRUG - OTHER] GT PRN (05:16)
[2016-09-04 07:58] VITALS: BP 123/76
[2016-09-04] MEDS: Z GUARD REMEDY 4 OZ OINT TP SCH ×2 (08:10→22:50)
[2016-09-04] MEDS: FINASTERIDE (5 MG) 5 MG TABLET GT SCH (08:10)
[2016-09-04] MEDS: VITAMINS A AND D 56.7 GM TUBE TP SCH ×2 (08:10)
[2016-09-04] MEDS: VALACYCLOVIR HCL 500 MG TABLET PEG SCH (08:10)
[2016-09-04] MEDS: PROSOURCE / PROSTAT (PYXIS) 30 ML UDC GT SCH (08:10)
[2016-09-04] MEDS: DOXAZOSIN MESYLATE 8 MG GT SCH (08:10)
[2016-09-04] MEDS: RIFAXIMIN 550 MG TABLET PO SCH ×2 (08:10→16:21)
[2016-09-04] MEDS: ASPIRIN 81 MG TAB.CHEW GT SCH (08:10)
[2016-09-04] MEDS: POTASSIUM CHLORIDE 10 MEQ GT SCH (08:10)
[2016-09-04] MEDS: CHOLECALCIFEROL (VITAMIN D 3) 400 UNIT TABLET GT SCH ×2 (08:10→21:25)
[2016-09-04] MEDS: HYDROGEN PEROXIDE 480 ML BOTTLE TP SCH (08:10)
[2016-09-04] MEDS: PRUNE JUICE GT SCH (12:53)
[2016-09-04 20:47] VITALS: BP 136/87
[2016-09-04] MEDS: METHYLNALTREXONE BROMIDE 12 MG/0.6 ML VIAL SQ SCH (21:25)
[2016-09-04] MEDS: PRAVASTATIN SODIUM 20 MG TABLET GT SCH (21:25)
[2016-09-04] MEDS: LATANOPROST EYE DROP 0.005% 2.5 ML BOTTLE EACHEYE SCH (21:25)
[2016-09-05] MEDS: ALBUTEROL HALF STRENGTH 1.25 MG/3 ML VIAL.NEB NEB SCH ×4 (01:48→19:30)
[2016-09-05] MEDS: VITAMINS A AND D 56.7 GM TUBE TP SCH ×6 (03:23→20:30)
[2016-09-05] MEDS: HYDROGEN PEROXIDE 480 ML BOTTLE TP SCH ×3 (03:23→20:29)
[2016-09-05] MEDS: CHLORHEXIDINE GLUCONATE 15 ML UDC MM SCH ×2 (07:30→17:48)
[2016-09-05 08:15] VITALS: BP 108/66
[2016-09-05] MEDS: MAGNESIUM HYDROXIDE 30 ML UDC GT PRN (08:19)
[2016-09-05] MEDS: POTASSIUM CHLORIDE 10 MEQ GT SCH (08:55)
[2016-09-05] MEDS: VALACYCLOVIR HCL 500 MG TABLET PEG SCH (08:55)
[2016-09-05] MEDS: ASPIRIN 81 MG TAB.CHEW GT SCH (08:55)
[2016-09-05] MEDS: FINASTERIDE (5 MG) 5 MG TABLET GT SCH (08:55)
[2016-09-05] MEDS: CHOLECALCIFEROL (VITAMIN D 3) 400 UNIT TABLET GT SCH ×2 (08:55→20:29)
[2016-09-05] MEDS: DOXAZOSIN MESYLATE 8 MG GT SCH (08:55)
[2016-09-05] MEDS: PROSOURCE / PROSTAT (PYXIS) 30 ML UDC GT SCH (08:55)
[2016-09-05] MEDS: RIFAXIMIN 550 MG TABLET PO SCH ×2 (08:56→16:58)
[2016-09-05] MEDS: Z GUARD REMEDY 4 OZ OINT TP SCH ×2 (08:56→20:29)
[2016-09-05] MEDS: PRUNE JUICE GT SCH (12:47)
[2016-09-05] MEDS: BISACODYL SUPP (10 MG) 10 MG/SUPP.RECT SUPP.RECT RC PRN (18:46)
[2016-09-05 20:00] VITALS: BP 117/72
[2016-09-05] MEDS: METHYLNALTREXONE BROMIDE 12 MG/0.6 ML VIAL SQ SCH (20:29)
[2016-09-05] MEDS: LATANOPROST EYE DROP 0.005% 2.5 ML BOTTLE EACHEYE SCH (21:09)
[2016-09-05] MEDS: PRAVASTATIN SODIUM 20 MG TABLET GT SCH (21:10)
[2016-09-05] MEDS: FIBERSOURCE HN 1,000 ML BOTTLE GT PRN (21:10)
[2016-09-06] MEDS: ALBUTEROL HALF STRENGTH 1.25 MG/3 ML VIAL.NEB NEB SCH ×4 (02:46→19:52)
[2016-09-06] MEDS: CHLORHEXIDINE GLUCONATE 15 ML UDC MM SCH ×2 (05:13→17:24)
[2016-09-06 08:13] VITALS: BP 129/77
[2016-09-06] MEDS: ASPIRIN 81 MG TAB.CHEW GT SCH (08:18)
[2016-09-06] MEDS: DOXAZOSIN MESYLATE 8 MG GT SCH (08:18)
[2016-09-06] MEDS: CHOLECALCIFEROL (VITAMIN D 3) 400 UNIT TABLET GT SCH ×2 (08:19→20:32)
[2016-09-06] MEDS: PROSOURCE / PROSTAT (PYXIS) 30 ML UDC GT SCH (08:19)
[2016-09-06] MEDS: POTASSIUM CHLORIDE 10 MEQ GT SCH (08:19)
[2016-09-06] MEDS: VALACYCLOVIR HCL 500 MG TABLET PEG SCH (08:19)
[2016-09-06] MEDS: RIFAXIMIN 550 MG TABLET PO SCH ×2 (08:19→16:52)
[2016-09-06] MEDS: FINASTERIDE (5 MG) 5 MG TABLET GT SCH (08:19)
[2016-09-06] MEDS: Z GUARD REMEDY 4 OZ OINT TP SCH ×2 (09:00→20:37)
[2016-09-06] MEDS: HYDROGEN PEROXIDE 480 ML BOTTLE TP SCH ×2 (09:00→20:32)
[2016-09-06] MEDS: VITAMINS A AND D 56.7 GM TUBE TP SCH ×4 (09:00→20:37)
[2016-09-06] MEDS: PRUNE JUICE GT SCH (12:43)
[2016-09-06] MEDS: HYDROCODONE/APAP 7.5/325MG 1 EACH TABLET GT PRN (19:01)
[2016-09-06 20:01] VITALS: BP 129/66
[2016-09-06] MEDS: METHYLNALTREXONE BROMIDE 12 MG/0.6 ML VIAL SQ SCH (20:32)
[2016-09-06] MEDS: LATANOPROST EYE DROP 0.005% 2.5 ML BOTTLE EACHEYE SCH (21:15)
[2016-09-06] MEDS: PRAVASTATIN SODIUM 20 MG TABLET GT SCH (21:15)
[2016-09-07] MEDS: ALBUTEROL HALF STRENGTH 1.25 MG/3 ML VIAL.NEB NEB SCH ×4 (01:28→19:34)
[2016-09-07] MEDS: CHLORHEXIDINE GLUCONATE 15 ML UDC MM SCH ×2 (05:41→17:34)
[2016-09-07 07:40] VITALS: BP 131/80
[2016-09-07] MEDS: HYDROGEN PEROXIDE 480 ML BOTTLE TP SCH ×2 (09:17→21:04)
[2016-09-07] MEDS: ASPIRIN 81 MG TAB.CHEW GT SCH (09:17)
[2016-09-07] MEDS: POTASSIUM CHLORIDE 10 MEQ GT SCH (09:17)
[2016-09-07] MEDS: VALACYCLOVIR HCL 500 MG TABLET PEG SCH (09:17)
[2016-09-07] MEDS: Z GUARD REMEDY 4 OZ OINT TP SCH ×2 (09:17→21:04)
[2016-09-07] MEDS: RIFAXIMIN 550 MG TABLET PO SCH ×2 (09:17→17:34)
[2016-09-07] MEDS: FINASTERIDE (5 MG) 5 MG TABLET GT SCH (09:17)
[2016-09-07] MEDS: PROSOURCE / PROSTAT (PYXIS) 30 ML UDC GT SCH (09:17)
[2016-09-07] MEDS: CHOLECALCIFEROL (VITAMIN D 3) 400 UNIT TABLET GT SCH ×2 (09:17→21:04)
[2016-09-07] MEDS: DOXAZOSIN MESYLATE 8 MG GT SCH (09:17)
[2016-09-07] MEDS: VITAMINS A AND D 56.7 GM TUBE TP SCH ×4 (09:18→21:05)
[2016-09-07] MEDS: PRUNE JUICE GT SCH (12:58)
[2016-09-07 20:00] VITALS: BP 113/75
[2016-09-07] MEDS: METHYLNALTREXONE BROMIDE 12 MG/0.6 ML VIAL SQ SCH (21:04)
[2016-09-07] MEDS: PRAVASTATIN SODIUM 20 MG TABLET GT SCH (21:05)
[2016-09-07] MEDS: LATANOPROST EYE DROP 0.005% 2.5 ML BOTTLE EACHEYE SCH (21:05)
[2016-09-07] MEDS: HYDROCODONE/APAP 7.5/325MG 1 EACH TABLET GT PRN (21:06)
[2016-09-08] MEDS: ALBUTEROL HALF STRENGTH 1.25 MG/3 ML VIAL.NEB NEB SCH ×4 (01:39→19:33)
[2016-09-08] MEDS: CHLORHEXIDINE GLUCONATE 15 ML UDC MM SCH ×2 (05:31→18:00)
[2016-09-08 07:56] VITALS: BP 116/70
[2016-09-08] MEDS: POTASSIUM CHLORIDE 10 MEQ GT SCH (08:57)
[2016-09-08] MEDS: VITAMINS A AND D 56.7 GM TUBE TP SCH ×4 (08:57→20:59)
[2016-09-08] MEDS: RIFAXIMIN 550 MG TABLET PO SCH ×2 (08:57→17:00)
[2016-09-08] MEDS: ASPIRIN 81 MG TAB.CHEW GT SCH (08:57)
[2016-09-08] MEDS: VALACYCLOVIR HCL 500 MG TABLET PEG SCH (08:57)
[2016-09-08] MEDS: FINASTERIDE (5 MG) 5 MG TABLET GT SCH (08:57)
[2016-09-08] MEDS: Z GUARD REMEDY 4 OZ OINT TP SCH ×2 (08:57→20:59)
[2016-09-08] MEDS: DOXAZOSIN MESYLATE 8 MG GT SCH (08:57)
[2016-09-08] MEDS: PROSOURCE / PROSTAT (PYXIS) 30 ML UDC GT SCH (08:57)
[2016-09-08] MEDS: HYDROGEN PEROXIDE 480 ML BOTTLE TP SCH ×2 (08:57→20:59)
[2016-09-08] MEDS: CHOLECALCIFEROL (VITAMIN D 3) 400 UNIT TABLET GT SCH ×2 (08:57→20:59)
[2016-09-08] MEDS: PRUNE JUICE GT SCH (12:00)
[2016-09-08 19:57] VITALS: BP 131/78
[2016-09-08] MEDS: METHYLNALTREXONE BROMIDE 12 MG/0.6 ML VIAL SQ SCH (20:59)
[2016-09-08] MEDS: PRAVASTATIN SODIUM 20 MG TABLET GT SCH (21:05)
[2016-09-08] MEDS: LATANOPROST EYE DROP 0.005% 2.5 ML BOTTLE EACHEYE SCH (21:05)
[2016-09-09] MEDS: ALBUTEROL HALF STRENGTH 1.25 MG/3 ML VIAL.NEB NEB SCH ×4 (01:53→20:26)
[2016-09-09] MEDS: CHLORHEXIDINE GLUCONATE 15 ML UDC MM SCH ×2 (05:37→17:47)
[2016-09-09] MEDS: FIBERSOURCE HN 1,000 ML BOTTLE GT PRN (05:37)
[2016-09-09 08:03] VITALS: BP 126/80
[2016-09-09] MEDS: ASPIRIN 81 MG TAB.CHEW GT SCH (08:26)
[2016-09-09] MEDS: DOXAZOSIN MESYLATE 8 MG GT SCH (08:26)
[2016-09-09] MEDS: CHOLECALCIFEROL (VITAMIN D 3) 400 UNIT TABLET GT SCH ×2 (08:27→20:37)
[2016-09-09] MEDS: VITAMINS A AND D 56.7 GM TUBE TP SCH ×4 (08:27→20:37)
[2016-09-09] MEDS: RIFAXIMIN 550 MG TABLET PO SCH ×2 (08:27→16:48)
[2016-09-09] MEDS: POTASSIUM CHLORIDE 10 MEQ GT SCH (08:27)
[2016-09-09] MEDS: VALACYCLOVIR HCL 500 MG TABLET PEG SCH (08:27)
[2016-09-09] MEDS: Z GUARD REMEDY 4 OZ OINT TP SCH ×2 (08:27→20:37)
[2016-09-09] MEDS: HYDROGEN PEROXIDE 480 ML BOTTLE TP SCH ×2 (08:27→20:37)
[2016-09-09] MEDS: FINASTERIDE (5 MG) 5 MG TABLET GT SCH (08:27)
[2016-09-09] MEDS: PROSOURCE / PROSTAT (PYXIS) 30 ML UDC GT SCH (08:27)
[2016-09-09] MEDS: PRUNE JUICE GT SCH (12:00)
--- NOTE | 2016-09-09 15:13 | NUR ---
attended support group meeting today and was able to express concerns with social group worker.
[2016-09-09] MEDS ORDERED: ERYTHROMYCIN ETHYLSUCCINATE 200 MG/5 ML SUSPENSION GT PRN (15:30)
[2016-09-09 19:52] VITALS: BP 139/84
[2016-09-09] MEDS: METHYLNALTREXONE BROMIDE 12 MG/0.6 ML VIAL SQ SCH (20:37)
[2016-09-09] MEDS: LATANOPROST EYE DROP 0.005% 2.5 ML BOTTLE EACHEYE SCH (21:31)
[2016-09-09] MEDS: PRAVASTATIN SODIUM 20 MG TABLET GT SCH (21:31)
[2016-09-10] MEDS: ALBUTEROL HALF STRENGTH 1.25 MG/3 ML VIAL.NEB NEB SCH ×4 (01:44→20:00)
[2016-09-10] MEDS: FIBERSOURCE HN 1,000 ML BOTTLE GT PRN (05:37)
[2016-09-10] MEDS: CHLORHEXIDINE GLUCONATE 15 ML UDC MM SCH ×2 (05:37→18:09)
[2016-09-10 08:55] VITALS: BP 122/74
[2016-09-10] MEDS: VALACYCLOVIR HCL 500 MG TABLET PEG SCH (09:44)
[2016-09-10] MEDS: CHOLECALCIFEROL (VITAMIN D 3) 400 UNIT TABLET GT SCH ×2 (09:44→21:24)
[2016-09-10] MEDS: VITAMINS A AND D 56.7 GM TUBE TP SCH ×4 (09:44→21:25)
[2016-09-10] MEDS: PROSOURCE / PROSTAT (PYXIS) 30 ML UDC GT SCH (09:44)
[2016-09-10] MEDS: FINASTERIDE (5 MG) 5 MG TABLET GT SCH (09:44)
[2016-09-10] MEDS: POTASSIUM CHLORIDE 10 MEQ GT SCH (09:44)
[2016-09-10] MEDS: DOXAZOSIN MESYLATE 8 MG GT SCH (09:44)
[2016-09-10] MEDS: HYDROGEN PEROXIDE 480 ML BOTTLE TP SCH ×2 (09:44→21:24)
[2016-09-10] MEDS: Z GUARD REMEDY 4 OZ OINT TP SCH ×2 (09:44→21:25)
[2016-09-10] MEDS: RIFAXIMIN 550 MG TABLET PO SCH ×2 (09:44→16:27)
[2016-09-10] MEDS: ASPIRIN 81 MG TAB.CHEW GT SCH (09:44)
[2016-09-10] MEDS: PRUNE JUICE GT SCH (12:00)
--- NOTE | 2016-09-10 12:24 | NUR ---
Social Service Section of [facility] assessment (1st quarter) completed. Resident has a trach and g-tube for feeding. would like for resident to remain in the facility until stable for discharge and would eventually like to take him home. Resident's and his daughter's are his conservators.
--- NOTE | 2016-09-10 14:20 | NUR ---
Seen and examined by Dr. Edwards relayed ammonia level of 108 on 09/09/16 with new order of Zinc Sulfate 220mg via GT QD X 30days noted and carried out. Asha Lopez made aware of the new order.
[2016-09-10] MEDS: HYDROCODONE/APAP 7.5/325MG 1 EACH TABLET GT PRN (16:27)
[2016-09-10 19:52] VITALS: BP 131/61
[2016-09-10] MEDS: METHYLNALTREXONE BROMIDE 12 MG/0.6 ML VIAL SQ SCH (21:24)
[2016-09-10] MEDS: LATANOPROST EYE DROP 0.005% 2.5 ML BOTTLE EACHEYE SCH (21:25)
[2016-09-10] MEDS: PRAVASTATIN SODIUM 20 MG TABLET GT SCH (21:25)
[2016-09-11] MEDS: ALBUTEROL HALF STRENGTH 1.25 MG/3 ML VIAL.NEB NEB SCH ×4 (02:25→19:22)
[2016-09-11] MEDS: FIBERSOURCE HN 1,000 ML BOTTLE GT PRN ×2 (04:23→23:20)
[2016-09-11] MEDS: CHLORHEXIDINE GLUCONATE 15 ML UDC MM SCH ×2 (05:42→18:59)
[2016-09-11 07:55] VITALS: BP 113/73
[2016-09-11] MEDS: FINASTERIDE (5 MG) 5 MG TABLET GT SCH (08:41)
[2016-09-11] MEDS: RIFAXIMIN 550 MG TABLET PO SCH ×2 (08:41→16:56)
[2016-09-11] MEDS: DOXAZOSIN MESYLATE 8 MG GT SCH (08:41)
[2016-09-11] MEDS: HYDROGEN PEROXIDE 480 ML BOTTLE TP SCH ×2 (08:41→20:40)
[2016-09-11] MEDS: VALACYCLOVIR HCL 500 MG TABLET PEG SCH (08:41)
[2016-09-11] MEDS: ASPIRIN 81 MG TAB.CHEW GT SCH (08:41)
[2016-09-11] MEDS: PROSOURCE / PROSTAT (PYXIS) 30 ML UDC GT SCH (08:41)
[2016-09-11] MEDS: POTASSIUM CHLORIDE 10 MEQ GT SCH (08:41)
[2016-09-11] MEDS: ZINC SULFATE 220 MG CAPSULE GT SCH (08:41)
[2016-09-11] MEDS: Z GUARD REMEDY 4 OZ OINT TP SCH ×2 (08:41→20:40)
[2016-09-11] MEDS: VITAMINS A AND D 56.7 GM TUBE TP SCH ×4 (08:41→20:40)
[2016-09-11] MEDS: CHOLECALCIFEROL (VITAMIN D 3) 400 UNIT TABLET GT SCH ×2 (08:41→20:40)
[2016-09-11] MEDS: PRUNE JUICE GT SCH (12:46)
--- NOTE | 2016-09-11 13:33 | NUR ---
IDT meeting held, reviewed current medication and treatment orders. Family invited by SSD but did not attend. No other order given at this time.
[2016-09-11] MEDS: METHYLNALTREXONE BROMIDE 12 MG/0.6 ML VIAL SQ SCH (20:40)
[2016-09-11] MEDS: LATANOPROST EYE DROP 0.005% 2.5 ML BOTTLE EACHEYE SCH (21:25)
[2016-09-11] MEDS: PRAVASTATIN SODIUM 20 MG TABLET GT SCH (21:25)
[2016-09-11 23:47] VITALS: BP 142/91
[2016-09-12] MEDS: ALBUTEROL HALF STRENGTH 1.25 MG/3 ML VIAL.NEB NEB SCH ×4 (01:56→19:36)
[2016-09-12] MEDS: CHLORHEXIDINE GLUCONATE 15 ML UDC MM SCH ×2 (05:26→17:16)
[2016-09-12] MEDS: MAGNESIUM HYDROXIDE 30 ML UDC GT PRN (05:27)
[2016-09-12 07:47] VITALS: BP 124/74
--- NOTE | 2016-09-12 08:00 | NUR ---
Left a message to Dr. Edwards regarding T of 101.8, 124/74, 100%, 20, 91. Cooling measures taken and waiting for Dr. Edwards's return call for orders.
[2016-09-12] MEDS: POTASSIUM CHLORIDE 10 MEQ GT SCH (08:40)
[2016-09-12] MEDS: ASPIRIN 81 MG TAB.CHEW GT SCH (08:40)
[2016-09-12] MEDS: PROSOURCE / PROSTAT (PYXIS) 30 ML UDC GT SCH (08:40)
[2016-09-12] MEDS: RIFAXIMIN 550 MG TABLET PO SCH ×2 (08:40→16:35)
[2016-09-12] MEDS: HYDROGEN PEROXIDE 480 ML BOTTLE TP SCH ×2 (08:40→21:09)
[2016-09-12] MEDS: ZINC SULFATE 220 MG CAPSULE GT SCH (08:40)
[2016-09-12] MEDS: DOXAZOSIN MESYLATE 8 MG GT SCH (08:40)
[2016-09-12] MEDS: CHOLECALCIFEROL (VITAMIN D 3) 400 UNIT TABLET GT SCH ×2 (08:40→21:09)
[2016-09-12] MEDS: FINASTERIDE (5 MG) 5 MG TABLET GT SCH (08:40)
[2016-09-12] MEDS: VITAMINS A AND D 56.7 GM TUBE TP SCH ×4 (08:41→21:09)
[2016-09-12] MEDS: Z GUARD REMEDY 4 OZ OINT TP SCH ×2 (08:41→21:09)
[2016-09-12] MEDS: VALACYCLOVIR HCL 500 MG TABLET PEG SCH (08:41)
--- NOTE | 2016-09-12 09:55 | NUR ---
Dr. Edwards notified of the elevated temp, he stated no Tylenol, no antipyretics but to monitor resident for 24 hours and if persist will order fever work up. Resident had a shower today. notified of resident's fever and what the doctor plans to do. Monitor for now and will do fever work up if fever persist.
[2016-09-12] MEDS: PRUNE JUICE GT SCH (12:56)
--- NOTE | 2016-09-12 14:30 | NUR ---
Seen and examined by Dr. Edwards, reiterated to monitor fever for 24 hours and if it persist to order CBC, BC, UA and C&S and CXRY, resident up in the chair x 2 hours, no agitation or restlessness. Temp 97.8 orally.
[2016-09-12] MEDS: METHYLNALTREXONE BROMIDE 12 MG/0.6 ML VIAL SQ SCH (21:09)
[2016-09-12] MEDS: LATANOPROST EYE DROP 0.005% 2.5 ML BOTTLE EACHEYE SCH (21:10)
[2016-09-12] MEDS: PRAVASTATIN SODIUM 20 MG TABLET GT SCH (21:11)
[2016-09-12 21:39] VITALS: BP 96/62
[2016-09-13 00:05] VITALS: BP 102/61
[2016-09-13] MEDS: ALBUTEROL HALF STRENGTH 1.25 MG/3 ML VIAL.NEB NEB SCH ×4 (01:28→18:38)
[2016-09-13] MEDS: [UNRECOGNIZED DRUG - OTHER] GT PRN (05:19)
[2016-09-13] MEDS: FIBERSOURCE HN 1,000 ML BOTTLE GT PRN (05:19)
[2016-09-13] MEDS: CHLORHEXIDINE GLUCONATE 15 ML UDC MM SCH ×2 (05:19→17:21)
[2016-09-13 05:41] VITALS: BP 127/70
--- NOTE | 2016-09-13 05:42 | NUR ---
Slept good through out the shift, q 4hr v/s monitored and noted wnl, afebrile. Temp at this time 98.0, bp 127/70, hr 64 O2 95%, rr 16, no pain.
[2016-09-13 07:45] VITALS: BP 113/77
[2016-09-13] MEDS: FINASTERIDE (5 MG) 5 MG TABLET GT SCH (09:41)
[2016-09-13] MEDS: ASPIRIN 81 MG TAB.CHEW GT SCH (09:41)
[2016-09-13] MEDS: POTASSIUM CHLORIDE 10 MEQ GT SCH (09:41)
[2016-09-13] MEDS: DOXAZOSIN MESYLATE 8 MG GT SCH (09:41)
[2016-09-13] MEDS: PROSOURCE / PROSTAT (PYXIS) 30 ML UDC GT SCH (09:42)
[2016-09-13] MEDS: ZINC SULFATE 220 MG CAPSULE GT SCH (09:43)
[2016-09-13] MEDS: CHOLECALCIFEROL (VITAMIN D 3) 400 UNIT TABLET GT SCH ×2 (09:43→21:10)
[2016-09-13] MEDS: Z GUARD REMEDY 4 OZ OINT TP SCH ×2 (09:44→21:10)
[2016-09-13] MEDS: HYDROGEN PEROXIDE 480 ML BOTTLE TP SCH ×2 (09:44→21:10)
[2016-09-13] MEDS: RIFAXIMIN 550 MG TABLET PO SCH ×2 (09:44→17:21)
[2016-09-13] MEDS: VALACYCLOVIR HCL 500 MG TABLET PEG SCH (09:44)
[2016-09-13] MEDS: VITAMINS A AND D 56.7 GM TUBE TP SCH ×4 (09:45→21:11)
[2016-09-13] MEDS: PRUNE JUICE GT SCH (12:00)
[2016-09-13 19:44] VITALS: BP 126/76
[2016-09-13] MEDS: METHYLNALTREXONE BROMIDE 12 MG/0.6 ML VIAL SQ SCH (21:10)
[2016-09-13] MEDS: PRAVASTATIN SODIUM 20 MG TABLET GT SCH (21:11)
[2016-09-13] MEDS: LATANOPROST EYE DROP 0.005% 2.5 ML BOTTLE EACHEYE SCH (21:11)
[2016-09-14] MEDS: ALBUTEROL HALF STRENGTH 1.25 MG/3 ML VIAL.NEB NEB SCH ×4 (01:24→21:05)
[2016-09-14] MEDS: CHLORHEXIDINE GLUCONATE 15 ML UDC MM SCH ×2 (05:12→17:29)
[2016-09-14 08:13] VITALS: BP 126/77
[2016-09-14] MEDS: VALACYCLOVIR HCL 500 MG TABLET PEG SCH (08:18)
[2016-09-14] MEDS: POTASSIUM CHLORIDE 10 MEQ GT SCH (08:18)
[2016-09-14] MEDS: ASPIRIN 81 MG TAB.CHEW GT SCH (08:18)
[2016-09-14] MEDS: DOXAZOSIN MESYLATE 8 MG GT SCH (08:18)
[2016-09-14] MEDS: FINASTERIDE (5 MG) 5 MG TABLET GT SCH (08:18)
[2016-09-14] MEDS: PROSOURCE / PROSTAT (PYXIS) 30 ML UDC GT SCH (08:19)
[2016-09-14] MEDS: RIFAXIMIN 550 MG TABLET PO SCH ×2 (08:19→17:29)
[2016-09-14] MEDS: CHOLECALCIFEROL (VITAMIN D 3) 400 UNIT TABLET GT SCH ×2 (08:19→21:24)
[2016-09-14] MEDS: ZINC SULFATE 220 MG CAPSULE GT SCH (08:20)
[2016-09-14] MEDS: Z GUARD REMEDY 4 OZ OINT TP SCH ×2 (09:00→21:24)
[2016-09-14] MEDS: HYDROGEN PEROXIDE 480 ML BOTTLE TP SCH ×2 (09:00→21:24)
[2016-09-14] MEDS: VITAMINS A AND D 56.7 GM TUBE TP SCH ×4 (11:24→21:24)
[2016-09-14] MEDS: HYDROCODONE/APAP 7.5/325MG 1 EACH TABLET GT PRN (11:33)
[2016-09-14] MEDS: PRUNE JUICE GT SCH (11:34)
[2016-09-14 19:49] VITALS: BP 124/79
[2016-09-14] MEDS: METHYLNALTREXONE BROMIDE 12 MG/0.6 ML VIAL SQ SCH (21:24)
[2016-09-14] MEDS: PRAVASTATIN SODIUM 20 MG TABLET GT SCH (21:25)
[2016-09-14] MEDS: LATANOPROST EYE DROP 0.005% 2.5 ML BOTTLE EACHEYE SCH (21:25)
[2016-09-15] MEDS: ALBUTEROL HALF STRENGTH 1.25 MG/3 ML VIAL.NEB NEB SCH ×4 (01:27→20:29)
[2016-09-15] MEDS: CHLORHEXIDINE GLUCONATE 15 ML UDC MM SCH ×2 (05:31→18:11)
--- NOTE | 2016-09-15 07:30 | NUR ---
RN NOTES RECEIVED PT IN BED, SLEEPING COMFORTABLY, NO SIGN OF PAIN OR DISTRESS, GT FEEDING INFUSING WELL, AM CARE RENDERED, TURNED AND REPOSITIONED, KEPT WARM AND COMFORTABLE.
[2016-09-15 07:45] VITALS: BP 132/81
[2016-09-15] MEDS: DOXAZOSIN MESYLATE 8 MG GT SCH (08:24)
[2016-09-15] MEDS: ASPIRIN 81 MG TAB.CHEW GT SCH (08:24)
[2016-09-15] MEDS: POTASSIUM CHLORIDE 10 MEQ GT SCH (08:24)
[2016-09-15] MEDS: FINASTERIDE (5 MG) 5 MG TABLET GT SCH (08:24)
[2016-09-15] MEDS: CHOLECALCIFEROL (VITAMIN D 3) 400 UNIT TABLET GT SCH ×2 (08:24→20:51)
[2016-09-15] MEDS: VALACYCLOVIR HCL 500 MG TABLET PEG SCH (08:24)
[2016-09-15] MEDS: RIFAXIMIN 550 MG TABLET PO SCH ×2 (08:24→16:57)
[2016-09-15] MEDS: VITAMINS A AND D 56.7 GM TUBE TP SCH ×4 (08:25→20:52)
[2016-09-15] MEDS: HYDROGEN PEROXIDE 480 ML BOTTLE TP SCH ×2 (08:26→20:51)
[2016-09-15] MEDS: Z GUARD REMEDY 4 OZ OINT TP SCH ×2 (08:26→20:52)
[2016-09-15] MEDS: PROSOURCE / PROSTAT (PYXIS) 30 ML UDC GT SCH (08:33)
[2016-09-15] MEDS: ZINC SULFATE 220 MG CAPSULE GT SCH (09:07)
[2016-09-15] MEDS: PRUNE JUICE GT SCH (12:00)
--- NOTE | 2016-09-15 14:57 | NUR ---
Notified Dr. Edwards that according to pt's he told her that he will order a medication for her 's increased secretions. Dr. Edwards said he does not want to order anything.
--- NOTE | 2016-09-15 17:49 | NUR ---
RN NOTES PT IN BED, ASLEEP, BREATHING PATTERN NORMAL, NO FACIAL GRIMACING, TOLERATING GT FEEDING WELL, PT ABLE TO WALK WITH RNA TODAY, TOLERATED WELL, PM CARE RENDERED, ALL NEEDS ATTENDED.
[2016-09-15 20:25] VITALS: BP 151/88
[2016-09-15] MEDS: METHYLNALTREXONE BROMIDE 12 MG/0.6 ML VIAL SQ SCH (20:51)
[2016-09-15] MEDS: PRAVASTATIN SODIUM 20 MG TABLET GT SCH (21:20)
[2016-09-15] MEDS: LATANOPROST EYE DROP 0.005% 2.5 ML BOTTLE EACHEYE SCH (21:20)
[2016-09-16] MEDS: ALBUTEROL HALF STRENGTH 1.25 MG/3 ML VIAL.NEB NEB SCH ×4 (02:49→19:38)
[2016-09-16] MEDS: CHLORHEXIDINE GLUCONATE 15 ML UDC MM SCH ×2 (05:34→17:08)
[2016-09-16 07:48] VITALS: BP 130/75
[2016-09-16] MEDS: CHOLECALCIFEROL (VITAMIN D 3) 400 UNIT TABLET GT SCH ×2 (08:33→20:49)
[2016-09-16] MEDS: ZINC SULFATE 220 MG CAPSULE GT SCH (08:33)
[2016-09-16] MEDS: DOXAZOSIN MESYLATE 8 MG GT SCH (08:33)
[2016-09-16] MEDS: ASPIRIN 81 MG TAB.CHEW GT SCH (08:33)
[2016-09-16] MEDS: FINASTERIDE (5 MG) 5 MG TABLET GT SCH (08:33)
[2016-09-16] MEDS: RIFAXIMIN 550 MG TABLET PO SCH ×2 (08:33→17:08)
[2016-09-16] MEDS: POTASSIUM CHLORIDE 10 MEQ GT SCH (08:33)
[2016-09-16] MEDS: PROSOURCE / PROSTAT (PYXIS) 30 ML UDC GT SCH (08:33)
[2016-09-16] MEDS: VALACYCLOVIR HCL 500 MG TABLET PEG SCH (08:33)
[2016-09-16] MEDS: Z GUARD REMEDY 4 OZ OINT TP SCH ×2 (08:34→20:49)
[2016-09-16] MEDS: VITAMINS A AND D 56.7 GM TUBE TP SCH ×4 (08:34→20:49)
[2016-09-16] MEDS: HYDROGEN PEROXIDE 480 ML BOTTLE TP SCH ×2 (08:34→20:49)
[2016-09-16] MEDS: PRUNE JUICE GT SCH (12:40)
[2016-09-16 19:59] VITALS: BP 128/71
[2016-09-16] MEDS: METHYLNALTREXONE BROMIDE 12 MG/0.6 ML VIAL SQ SCH (20:49)
[2016-09-16] MEDS: PRAVASTATIN SODIUM 20 MG TABLET GT SCH (21:51)
[2016-09-16] MEDS: FIBERSOURCE HN 1,000 ML BOTTLE GT PRN (21:51)
[2016-09-16] MEDS: LATANOPROST EYE DROP 0.005% 2.5 ML BOTTLE EACHEYE SCH (21:51)
[2016-09-17] MEDS: ALBUTEROL HALF STRENGTH 1.25 MG/3 ML VIAL.NEB NEB SCH ×4 (01:06→20:01)
[2016-09-17] MEDS: CHLORHEXIDINE GLUCONATE 15 ML UDC MM SCH ×2 (05:48→18:21)
[2016-09-17 07:43] VITALS: BP 124/82
[2016-09-17] MEDS: ZINC SULFATE 220 MG CAPSULE GT SCH (08:23)
[2016-09-17] MEDS: VITAMINS A AND D 56.7 GM TUBE TP SCH ×4 (08:23→21:59)
[2016-09-17] MEDS: FINASTERIDE (5 MG) 5 MG TABLET GT SCH (08:23)
[2016-09-17] MEDS: POTASSIUM CHLORIDE 10 MEQ GT SCH (08:23)
[2016-09-17] MEDS: RIFAXIMIN 550 MG TABLET PO SCH ×2 (08:23→16:48)
[2016-09-17] MEDS: VALACYCLOVIR HCL 500 MG TABLET PEG SCH (08:23)
[2016-09-17] MEDS: DOXAZOSIN MESYLATE 8 MG GT SCH (08:23)
[2016-09-17] MEDS: HYDROGEN PEROXIDE 480 ML BOTTLE TP SCH ×2 (08:23→21:58)
[2016-09-17] MEDS: PROSOURCE / PROSTAT (PYXIS) 30 ML UDC GT SCH (08:23)
[2016-09-17] MEDS: CHOLECALCIFEROL (VITAMIN D 3) 400 UNIT TABLET GT SCH ×2 (08:23→21:58)
[2016-09-17] MEDS: ASPIRIN 81 MG TAB.CHEW GT SCH (08:23)
[2016-09-17] MEDS: Z GUARD REMEDY 4 OZ OINT TP SCH ×2 (08:23→21:59)
[2016-09-17] MEDS: PRUNE JUICE GT SCH (12:07)
--- NOTE | 2016-09-17 15:48 | NUR ---
Seen and examined by Denise Pichardo NP and Dr. Edwards no new order given.
[2016-09-17] MEDS: HYDROCODONE/APAP 7.5/325MG 1 EACH TABLET GT PRN (16:49)
[2016-09-17] MEDS: FIBERSOURCE HN 1,000 ML BOTTLE GT PRN (18:20)
[2016-09-17 19:37] VITALS: BP 120/83
[2016-09-17] MEDS: METHYLNALTREXONE BROMIDE 12 MG/0.6 ML VIAL SQ SCH (21:58)
[2016-09-17] MEDS: PRAVASTATIN SODIUM 20 MG TABLET GT SCH (21:59)
[2016-09-17] MEDS: LATANOPROST EYE DROP 0.005% 2.5 ML BOTTLE EACHEYE SCH (21:59)
[2016-09-18] MEDS: ALBUTEROL HALF STRENGTH 1.25 MG/3 ML VIAL.NEB NEB SCH ×4 (01:29→20:08)
[2016-09-18] MEDS: CHLORHEXIDINE GLUCONATE 15 ML UDC MM SCH ×2 (06:05→18:00)
[2016-09-18 07:29] VITALS: BP 115/76
[2016-09-18] MEDS: PROSOURCE / PROSTAT (PYXIS) 30 ML UDC GT SCH (08:43)
[2016-09-18] MEDS: ZINC SULFATE 220 MG CAPSULE GT SCH (08:43)
[2016-09-18] MEDS: RIFAXIMIN 550 MG TABLET PO SCH ×2 (08:43→17:07)
[2016-09-18] MEDS: DOXAZOSIN MESYLATE 8 MG GT SCH (08:43)
[2016-09-18] MEDS: Z GUARD REMEDY 4 OZ OINT TP SCH ×2 (08:43→21:56)
[2016-09-18] MEDS: VALACYCLOVIR HCL 500 MG TABLET PEG SCH (08:43)
[2016-09-18] MEDS: HYDROGEN PEROXIDE 480 ML BOTTLE TP SCH ×2 (08:43→21:56)
[2016-09-18] MEDS: ASPIRIN 81 MG TAB.CHEW GT SCH (08:43)
[2016-09-18] MEDS: FINASTERIDE (5 MG) 5 MG TABLET GT SCH (08:43)
[2016-09-18] MEDS: VITAMINS A AND D 56.7 GM TUBE TP SCH ×4 (08:43→21:56)
[2016-09-18] MEDS: CHOLECALCIFEROL (VITAMIN D 3) 400 UNIT TABLET GT SCH ×2 (08:43→21:56)
[2016-09-18] MEDS: POTASSIUM CHLORIDE 10 MEQ GT SCH (08:43)
[2016-09-18] MEDS: PRUNE JUICE GT SCH (12:48)
[2016-09-18] MEDS: MAGNESIUM HYDROXIDE 30 ML UDC GT PRN (12:49)
[2016-09-18] MEDS: FIBERSOURCE HN 1,000 ML BOTTLE GT PRN (17:06)
[2016-09-18] MEDS: BISACODYL SUPP (10 MG) 10 MG/SUPP.RECT SUPP.RECT RC PRN (17:07)
[2016-09-18 19:56] VITALS: BP 119/77
[2016-09-18] MEDS: LATANOPROST EYE DROP 0.005% 2.5 ML BOTTLE EACHEYE SCH (21:56)
[2016-09-18] MEDS: METHYLNALTREXONE BROMIDE 12 MG/0.6 ML VIAL SQ SCH (21:56)
[2016-09-18] MEDS: PRAVASTATIN SODIUM 20 MG TABLET GT SCH (21:57)
[2016-09-19] MEDS: ALBUTEROL HALF STRENGTH 1.25 MG/3 ML VIAL.NEB NEB SCH ×4 (01:37→19:40)
[2016-09-19] MEDS: CHLORHEXIDINE GLUCONATE 15 ML UDC MM SCH ×2 (06:14→17:02)
[2016-09-19 07:52] VITALS: BP 115/80
[2016-09-19] MEDS: VALACYCLOVIR HCL 500 MG TABLET PEG SCH (08:34)
[2016-09-19] MEDS: HYDROGEN PEROXIDE 480 ML BOTTLE TP SCH ×2 (08:34→21:09)
[2016-09-19] MEDS: ASPIRIN 81 MG TAB.CHEW GT SCH (08:34)
[2016-09-19] MEDS: CHOLECALCIFEROL (VITAMIN D 3) 400 UNIT TABLET GT SCH ×2 (08:34→21:09)
[2016-09-19] MEDS: FINASTERIDE (5 MG) 5 MG TABLET GT SCH (08:34)
[2016-09-19] MEDS: DOXAZOSIN MESYLATE 8 MG GT SCH (08:34)
[2016-09-19] MEDS: POTASSIUM CHLORIDE 10 MEQ GT SCH (08:34)
[2016-09-19] MEDS: Z GUARD REMEDY 4 OZ OINT TP SCH ×2 (08:34→21:09)
[2016-09-19] MEDS: RIFAXIMIN 550 MG TABLET PO SCH ×2 (08:34→17:02)
[2016-09-19] MEDS: PROSOURCE / PROSTAT (PYXIS) 30 ML UDC GT SCH (08:34)
[2016-09-19] MEDS: VITAMINS A AND D 56.7 GM TUBE TP SCH ×4 (08:34→21:10)
[2016-09-19] MEDS: ZINC SULFATE 220 MG CAPSULE GT SCH (08:34)
[2016-09-19] MEDS: PRUNE JUICE GT SCH (12:27)
[2016-09-19] MEDS: HYDROCODONE/APAP 7.5/325MG 1 EACH TABLET GT PRN (12:27)
[2016-09-19] MEDS: FIBERSOURCE HN 1,000 ML BOTTLE GT PRN (15:33)
[2016-09-19 20:01] VITALS: BP 101/69
[2016-09-19] MEDS: METHYLNALTREXONE BROMIDE 12 MG/0.6 ML VIAL SQ SCH (21:09)
[2016-09-19] MEDS: PRAVASTATIN SODIUM 20 MG TABLET GT SCH (21:10)
[2016-09-19] MEDS: LATANOPROST EYE DROP 0.005% 2.5 ML BOTTLE EACHEYE SCH (21:10)
[2016-09-20] MEDS: ALBUTEROL HALF STRENGTH 1.25 MG/3 ML VIAL.NEB NEB SCH ×4 (01:02→19:19)
[2016-09-20] MEDS: CHLORHEXIDINE GLUCONATE 15 ML UDC MM SCH ×2 (06:08→17:21)
[2016-09-20 07:57] VITALS: BP 122/76
[2016-09-20] MEDS: CHOLECALCIFEROL (VITAMIN D 3) 400 UNIT TABLET GT SCH ×2 (08:23→21:19)
[2016-09-20] MEDS: FINASTERIDE (5 MG) 5 MG TABLET GT SCH (08:23)
[2016-09-20] MEDS: DOXAZOSIN MESYLATE 8 MG GT SCH (08:23)
[2016-09-20] MEDS: PROSOURCE / PROSTAT (PYXIS) 30 ML UDC GT SCH (08:23)
[2016-09-20] MEDS: VALACYCLOVIR HCL 500 MG TABLET PEG SCH (08:23)
[2016-09-20] MEDS: POTASSIUM CHLORIDE 10 MEQ GT SCH (08:23)
[2016-09-20] MEDS: ASPIRIN 81 MG TAB.CHEW GT SCH (08:23)
[2016-09-20] MEDS: ZINC SULFATE 220 MG CAPSULE GT SCH (08:23)
[2016-09-20] MEDS: RIFAXIMIN 550 MG TABLET PO SCH ×2 (08:23→17:21)
[2016-09-20] MEDS: HYDROGEN PEROXIDE 480 ML BOTTLE TP SCH ×2 (09:00→21:19)
[2016-09-20] MEDS: Z GUARD REMEDY 4 OZ OINT TP SCH ×2 (09:00→21:19)
[2016-09-20] MEDS: VITAMINS A AND D 56.7 GM TUBE TP SCH ×4 (09:00→21:20)
[2016-09-20] MEDS: PRUNE JUICE GT SCH (11:26)
[2016-09-20 19:39] VITALS: BP 114/74
[2016-09-20] MEDS: METHYLNALTREXONE BROMIDE 12 MG/0.6 ML VIAL SQ SCH (21:19)
[2016-09-20] MEDS: LATANOPROST EYE DROP 0.005% 2.5 ML BOTTLE EACHEYE SCH (21:20)
[2016-09-20] MEDS: PRAVASTATIN SODIUM 20 MG TABLET GT SCH (21:20)
[2016-09-21] MEDS: ALBUTEROL HALF STRENGTH 1.25 MG/3 ML VIAL.NEB NEB SCH ×4 (01:20→20:27)
[2016-09-21] MEDS: CHLORHEXIDINE GLUCONATE 15 ML UDC MM SCH ×2 (05:48→18:49)
[2016-09-21] MEDS: CHOLECALCIFEROL (VITAMIN D 3) 400 UNIT TABLET GT SCH ×2 (08:14→21:08)
[2016-09-21] MEDS: ASPIRIN 81 MG TAB.CHEW GT SCH (08:14)
[2016-09-21] MEDS: FINASTERIDE (5 MG) 5 MG TABLET GT SCH (08:14)
[2016-09-21] MEDS: RIFAXIMIN 550 MG TABLET PO SCH ×2 (08:14→17:00)
[2016-09-21] MEDS: POTASSIUM CHLORIDE 10 MEQ GT SCH (08:14)
[2016-09-21] MEDS: DOXAZOSIN MESYLATE 8 MG GT SCH (08:14)
[2016-09-21] MEDS: ZINC SULFATE 220 MG CAPSULE GT SCH (08:14)
[2016-09-21] MEDS: PROSOURCE / PROSTAT (PYXIS) 30 ML UDC GT SCH (08:14)
[2016-09-21] MEDS: VALACYCLOVIR HCL 500 MG TABLET PEG SCH (08:14)
[2016-09-21 08:17] VITALS: BP 125/79
--- NOTE | 2016-09-21 08:50 | NUR ---
Spoke with resident's , as SW was informed by charge nurse that was unhappy about ASSISTANT VICE PRESIDENT assignment. became upset and emotional stating that charge nurses have changed the assignments for her in the past, which is not the case as it is against subacute policy. When SW asked to please state who else has requested change assignments and have been granted them, she did not want to answer and stated "if you go ask around, I am sure you will find out." still unhappy and stated "I will just have to be here the entire day to take care of him then." Charge nurse informed.
--- NOTE | 2016-09-21 08:55 | NUR ---
Pt's came to the nurses station upset saying that she does not like the NIGHT COURT MAGISTRATE assigned to the pt and asked for it to be changed. Charge nurse asked her if there is any reason why she does not like the NIGHT COURT MAGISTRATE. just said she does not like her. Charge nurse asked her if there was something that the NIGHT COURT MAGISTRATE did that she did not like and again the said she does not like her. was speaking in Thai and charge nurse could not understand everything she was saying so she asked MICHELINE Merry to translate. insisted that she does not like the NIGHT COURT MAGISTRATE and wanted the assignment to be changed. Charge nurse explained to her that the CNAs have rotations in terms of assignments and it is unfair to change the assignment for no valid reason. said that the charge nurse does not respect her. Charge nurse called social work program coordinator Ella to speak with the . Charge nurse told MICHELINE Medrano to still go to the pt to offer cleaning and repositioning routinely.
--- NOTE | 2016-09-21 10:00 | NUR ---
MICHELINE Medrano and JAY Real were in the pt's room to bring the pt to the shower. Pt's refused for MICHELINE Medrano to take care of her , saying that she does not like her and if the assignment will not be changed, she will give the shower to the pt herself. Charge nurse explained to her that she cannot care for the pt on her own. Explained to her that charge nurse is having RNA Addie help MICHELINE Medrano since she is refusing MICHELINE Medrano, but insisted that MICHELINE Medrano cannot care for the pt. Charge nurse called director social Ella to talk with the . told director social Ella she can care for the pt herself. Charge nurse said she will have MICHELINE Medrano care for the pt in 's presence but still refusing. Told MICHELINE Medrano to still clean and reposition pt. Notified Subacute director Zara. Addendum: 09/21/16 at 1208 by ROSEANNA HARRISON RN Also notified nursing supervisor dry paste Lilian who said she will discuss the matter with AURA Parish.
--- NOTE | 2016-09-21 10:20 | NUR ---
SW spoke with , as she was informed by charge nurse that resident's refusing bath for resident. noted that she does not want assigned REGISTERED APPRAISER under any circumstances to care for her today. Charge nurse was present with SW. Charge nurse contacted nursing supervisor instrument mechanics who will contact CNO regarding issue.
--- NOTE | 2016-09-21 11:22 | NUR ---
SOLEDAD Mendenhall reported to charge nurse that the pt's asked her to disconnect the feeding tube. She disconnected it and asked the if she can already do the trach care and treatments, the said yes. As SOLEDAD Mendenhall was walking away to get the supplies she needed, she saw the pt's lifting the pt from the bed to the wheelchair. She told her not to do it and asked MICHELINE Sousa who was nearby to help transfer the pt from bed to wheelchair. Addendum: 09/21/16 at 1127 by ROSEANNA HARRISON RN Already explained and emphasized to pt's that she cannot do the care for the pt on her own and will have MICHELINE Medrano who is assigned to the pt to do it.
[2016-09-21] MEDS: Z GUARD REMEDY 4 OZ OINT TP SCH ×2 (11:30→21:08)
[2016-09-21] MEDS: VITAMINS A AND D 56.7 GM TUBE TP SCH ×4 (11:30→21:08)
[2016-09-21] MEDS: HYDROGEN PEROXIDE 480 ML BOTTLE TP SCH ×2 (11:30→21:08)
[2016-09-21] MEDS: PRUNE JUICE GT SCH (12:34)
--- NOTE | 2016-09-21 12:42 | NUR ---
Pt's removed all the sheets from pt's bed. Charge nurse asked MICHELINE Medrano to make the bed. Pt ambulating with JAY Real and pt's . Charge nurse saw pt's straightening out the bed sheet and asked MICHELINE Medrano what happened. MICEHLINE Medrano went into the room with fresh linen and when pt's saw her in the room, told her not to make the bed.
--- NOTE | 2016-09-21 15:00 | NUR ---
piece dye worker Ella notified AURA Parish that pt's has been refusing care from the NURSING TECHNICIAN and has been doing the care herself. AURA Parish came to speak with pt's . piece dye worker Ella notified charge nurse that based on CNO and 's conversation, will let the NURSING TECHNICIAN do her job and will not care for the pt on her own.
--- NOTE | 2016-09-21 15:25 | NUR ---
SW and CARLIO spoke with resident's , who has been refusing assistance from MAINS AND SERVICE SUPERVISOR and has been repositioning resident herself (as well as giving him a bed bath). CNO stated that she is not allowed to do the care herself, especially since she has been complaining about back pain due to the fact that she repositions her . CNO stated under no circumstances is she to do the care herself and will allow the MAINS AND SERVICE SUPERVISOR to do her job. continued to state that she does not like MAINS AND SERVICE SUPERVISOR but did not provide specific reason why. CNO will not change rotation. CNO reported hospital will not be responsible if something happens to her, as she is refusing to let staff do their jobs. CNO stated that if charge nurse informs him that she is continuing to refuse staff, her visiting hours will be limited. CNO also stated that he will be calling her daughter Denise to inform her of the discussion that was had today. Charge nurse informed and SW informed her that if is still refusing care from staff, to please notify CARLIO and SKIP.
--- NOTE | 2016-09-21 16:00 | NUR ---
MICHELINE Medrano cleaned and repositioned pt. did not interfere with care.
[2016-09-21 19:43] VITALS: BP 135/76
[2016-09-21] MEDS: METHYLNALTREXONE BROMIDE 12 MG/0.6 ML VIAL SQ SCH (21:08)
[2016-09-21] MEDS: MAGNESIUM HYDROXIDE 30 ML UDC GT PRN (21:09)
[2016-09-21] MEDS: LATANOPROST EYE DROP 0.005% 2.5 ML BOTTLE EACHEYE SCH (21:09)
[2016-09-21] MEDS: PRAVASTATIN SODIUM 20 MG TABLET GT SCH (21:09)
[2016-09-22] MEDS: ALBUTEROL HALF STRENGTH 1.25 MG/3 ML VIAL.NEB NEB SCH ×4 (02:26→20:24)
[2016-09-22] MEDS: CHLORHEXIDINE GLUCONATE 15 ML UDC MM SCH ×2 (05:09→17:26)
[2016-09-22] MEDS: FIBERSOURCE HN 1,000 ML BOTTLE GT PRN (05:23)
[2016-09-22] MEDS: BISACODYL SUPP (10 MG) 10 MG/SUPP.RECT SUPP.RECT RC PRN (06:42)
[2016-09-22 07:36] VITALS: BP 134/73
[2016-09-22] MEDS: VALACYCLOVIR HCL 500 MG TABLET PEG SCH (08:16)
[2016-09-22] MEDS: DOXAZOSIN MESYLATE 8 MG GT SCH (08:16)
[2016-09-22] MEDS: CHOLECALCIFEROL (VITAMIN D 3) 400 UNIT TABLET GT SCH ×2 (08:16→20:47)
[2016-09-22] MEDS: POTASSIUM CHLORIDE 10 MEQ GT SCH (08:16)
[2016-09-22] MEDS: ZINC SULFATE 220 MG CAPSULE GT SCH (08:16)
[2016-09-22] MEDS: FINASTERIDE (5 MG) 5 MG TABLET GT SCH (08:16)
[2016-09-22] MEDS: PROSOURCE / PROSTAT (PYXIS) 30 ML UDC GT SCH (08:16)
[2016-09-22] MEDS: RIFAXIMIN 550 MG TABLET PO SCH ×2 (08:16→17:26)
[2016-09-22] MEDS: ASPIRIN 81 MG TAB.CHEW GT SCH (08:16)
--- NOTE | 2016-09-22 09:56 | NUR ---
Seen by Dr Mejia on bedside stating the pt is having increasing secreations per MD it's part of having a trach and as long as no infection no need to treat right now.
--- NOTE | 2016-09-22 10:10 | NUR ---
Seen by Dr Edwards with no new order.
[2016-09-22] MEDS: HYDROGEN PEROXIDE 480 ML BOTTLE TP SCH ×2 (11:10→20:47)
[2016-09-22] MEDS: VITAMINS A AND D 56.7 GM TUBE TP SCH ×4 (11:15→20:48)
[2016-09-22] MEDS: Z GUARD REMEDY 4 OZ OINT TP SCH ×2 (11:15→20:47)
[2016-09-22] MEDS: PRUNE JUICE GT SCH (11:22)
[2016-09-22] MEDS: SIMETHICONE SUSP 40 MG/0.6 ML BOTTLE GT PRN (11:30)
[2016-09-22] MEDS: HYDROCODONE/APAP 7.5/325MG 1 EACH TABLET GT PRN ×2 (18:39→18:49)
[2016-09-22 20:01] VITALS: BP 124/70
[2016-09-22] MEDS: METHYLNALTREXONE BROMIDE 12 MG/0.6 ML VIAL SQ SCH (20:47)
[2016-09-22] MEDS: LATANOPROST EYE DROP 0.005% 2.5 ML BOTTLE EACHEYE SCH (20:48)
[2016-09-22] MEDS: PRAVASTATIN SODIUM 20 MG TABLET GT SCH (20:48)
[2016-09-23] MEDS: ALBUTEROL HALF STRENGTH 1.25 MG/3 ML VIAL.NEB NEB SCH ×4 (01:21→20:32)
[2016-09-23] MEDS: HYDROCODONE/APAP 7.5/325MG 1 EACH TABLET GT PRN ×2 (03:15→18:00)
[2016-09-23] MEDS: CHLORHEXIDINE GLUCONATE 15 ML UDC MM SCH ×2 (05:46→17:59)
[2016-09-23 07:41] VITALS: BP 115/62
[2016-09-23] MEDS: DOXAZOSIN MESYLATE 8 MG GT SCH (08:23)
[2016-09-23] MEDS: POTASSIUM CHLORIDE 10 MEQ GT SCH (08:23)
[2016-09-23] MEDS: CHOLECALCIFEROL (VITAMIN D 3) 400 UNIT TABLET GT SCH ×2 (08:23→21:22)
[2016-09-23] MEDS: ZINC SULFATE 220 MG CAPSULE GT SCH (08:23)
[2016-09-23] MEDS: PROSOURCE / PROSTAT (PYXIS) 30 ML UDC GT SCH (08:23)
[2016-09-23] MEDS: HYDROGEN PEROXIDE 480 ML BOTTLE TP SCH ×2 (08:23→21:22)
[2016-09-23] MEDS: RIFAXIMIN 550 MG TABLET PO SCH ×2 (08:23→17:59)
[2016-09-23] MEDS: ASPIRIN 81 MG TAB.CHEW GT SCH (08:23)
[2016-09-23] MEDS: Z GUARD REMEDY 4 OZ OINT TP SCH ×2 (08:23→21:22)
[2016-09-23] MEDS: VALACYCLOVIR HCL 500 MG TABLET PEG SCH (08:23)
[2016-09-23] MEDS: FINASTERIDE (5 MG) 5 MG TABLET GT SCH (08:23)
[2016-09-23] MEDS: VITAMINS A AND D 56.7 GM TUBE TP SCH ×4 (08:24→21:22)
[2016-09-23] MEDS: PRUNE JUICE GT SCH (12:33)
[2016-09-23 20:32] VITALS: BP 135/84
[2016-09-23] MEDS: PRAVASTATIN SODIUM 20 MG TABLET GT SCH (21:22)
[2016-09-23] MEDS: LATANOPROST EYE DROP 0.005% 2.5 ML BOTTLE EACHEYE SCH (21:22)
[2016-09-23] MEDS: METHYLNALTREXONE BROMIDE 12 MG/0.6 ML VIAL SQ SCH (21:22)
[2016-09-24] MEDS: ALBUTEROL HALF STRENGTH 1.25 MG/3 ML VIAL.NEB NEB SCH ×4 (02:17→19:47)
[2016-09-24] MEDS: CHLORHEXIDINE GLUCONATE 15 ML UDC MM SCH ×2 (05:01→17:28)
[2016-09-24] MEDS: FIBERSOURCE HN 1,000 ML BOTTLE GT PRN (05:01)
[2016-09-24 07:46] VITALS: BP 111/66
[2016-09-24] MEDS: MAGNESIUM HYDROXIDE 30 ML UDC GT PRN (08:03)
[2016-09-24] MEDS: FINASTERIDE (5 MG) 5 MG TABLET GT SCH (08:56)
[2016-09-24] MEDS: CHOLECALCIFEROL (VITAMIN D 3) 400 UNIT TABLET GT SCH ×2 (08:56→21:38)
[2016-09-24] MEDS: HYDROGEN PEROXIDE 480 ML BOTTLE TP SCH ×2 (08:56→21:38)
[2016-09-24] MEDS: DOXAZOSIN MESYLATE 8 MG GT SCH (08:56)
[2016-09-24] MEDS: POTASSIUM CHLORIDE 10 MEQ GT SCH (08:56)
[2016-09-24] MEDS: VALACYCLOVIR HCL 500 MG TABLET PEG SCH (08:56)
[2016-09-24] MEDS: ZINC SULFATE 220 MG CAPSULE GT SCH (08:56)
[2016-09-24] MEDS: ASPIRIN 81 MG TAB.CHEW GT SCH (08:56)
[2016-09-24] MEDS: RIFAXIMIN 550 MG TABLET PO SCH ×2 (08:56→17:28)
[2016-09-24] MEDS: VITAMINS A AND D 56.7 GM TUBE TP SCH ×4 (08:56→21:38)
[2016-09-24] MEDS: PROSOURCE / PROSTAT (PYXIS) 30 ML UDC GT SCH (08:56)
[2016-09-24] MEDS: Z GUARD REMEDY 4 OZ OINT TP SCH ×2 (08:56→21:38)
[2016-09-24] MEDS: PRUNE JUICE GT SCH (12:38)
--- NOTE | 2016-09-24 13:25 | NUR ---
DR Edwards with new order Azithromycin 250mg via GT daily x 4 days for Bronchitis order noted and carried out.Asha made aware.
--- NOTE | 2016-09-24 13:30 | NUR ---
Seen by Denise Pichardo NP with no new order.
[2016-09-24] MEDS: AZITHROMYCIN 250 MG TABLET GT SCH (14:00)
[2016-09-24] MEDS ORDERED: AZITHROMYCIN 250 MG TABLET PO SCH (14:00)
[2016-09-24] MEDS: HYDROCODONE/APAP 7.5/325MG 1 EACH TABLET GT PRN (15:01)
[2016-09-24 19:49] VITALS: BP 109/72
[2016-09-24] MEDS: LATANOPROST EYE DROP 0.005% 2.5 ML BOTTLE EACHEYE SCH (21:38)
[2016-09-24] MEDS: PRAVASTATIN SODIUM 20 MG TABLET GT SCH (21:38)
[2016-09-24] MEDS: METHYLNALTREXONE BROMIDE 12 MG/0.6 ML VIAL SQ SCH (21:38)
[2016-09-25] MEDS: ALBUTEROL HALF STRENGTH 1.25 MG/3 ML VIAL.NEB NEB SCH ×4 (01:39→19:09)
[2016-09-25] MEDS: CHLORHEXIDINE GLUCONATE 15 ML UDC MM SCH ×2 (05:28→17:36)
[2016-09-25 07:58] VITALS: BP 126/76
[2016-09-25] MEDS: ASPIRIN 81 MG TAB.CHEW GT SCH (08:37)
[2016-09-25] MEDS: FINASTERIDE (5 MG) 5 MG TABLET GT SCH (08:38)
[2016-09-25] MEDS: HYDROGEN PEROXIDE 480 ML BOTTLE TP SCH ×2 (08:38→21:18)
[2016-09-25] MEDS: VITAMINS A AND D 56.7 GM TUBE TP SCH ×4 (08:38→21:18)
[2016-09-25] MEDS: Z GUARD REMEDY 4 OZ OINT TP SCH ×2 (08:38→21:18)
[2016-09-25] MEDS: DOXAZOSIN MESYLATE 8 MG GT SCH (08:38)
[2016-09-25] MEDS: CHOLECALCIFEROL (VITAMIN D 3) 400 UNIT TABLET GT SCH ×2 (08:38→21:17)
[2016-09-25] MEDS: RIFAXIMIN 550 MG TABLET PO SCH ×2 (08:38→17:36)
[2016-09-25] MEDS: VALACYCLOVIR HCL 500 MG TABLET PEG SCH (08:38)
[2016-09-25] MEDS: POTASSIUM CHLORIDE 10 MEQ GT SCH (08:38)
[2016-09-25] MEDS: ZINC SULFATE 220 MG CAPSULE GT SCH (08:38)
[2016-09-25] MEDS: PROSOURCE / PROSTAT (PYXIS) 30 ML UDC GT SCH (08:38)
[2016-09-25] MEDS: BISACODYL SUPP (10 MG) 10 MG/SUPP.RECT SUPP.RECT RC PRN (10:04)
[2016-09-25] MEDS: PRUNE JUICE GT SCH (12:14)
[2016-09-25] MEDS: AZITHROMYCIN 250 MG TABLET GT SCH (14:00)
[2016-09-25 19:42] VITALS: BP 132/81
[2016-09-25] MEDS: LATANOPROST EYE DROP 0.005% 2.5 ML BOTTLE EACHEYE SCH (21:18)
[2016-09-25] MEDS: METHYLNALTREXONE BROMIDE 12 MG/0.6 ML VIAL SQ SCH (21:18)
[2016-09-25] MEDS: PRAVASTATIN SODIUM 20 MG TABLET GT SCH (21:18)
[2016-09-26] MEDS: ALBUTEROL HALF STRENGTH 1.25 MG/3 ML VIAL.NEB NEB SCH ×4 (02:09→20:11)
[2016-09-26] MEDS: FIBERSOURCE HN 1,000 ML BOTTLE GT PRN (05:03)
[2016-09-26] MEDS: CHLORHEXIDINE GLUCONATE 15 ML UDC MM SCH ×2 (05:03→17:39)
[2016-09-26 08:00] VITALS: BP 121/77
[2016-09-26] MEDS: FINASTERIDE (5 MG) 5 MG TABLET GT SCH (08:27)
[2016-09-26] MEDS: POTASSIUM CHLORIDE 10 MEQ GT SCH (08:27)
[2016-09-26] MEDS: PROSOURCE / PROSTAT (PYXIS) 30 ML UDC GT SCH (08:27)
[2016-09-26] MEDS: HYDROGEN PEROXIDE 480 ML BOTTLE TP SCH ×2 (08:27→21:06)
[2016-09-26] MEDS: CHOLECALCIFEROL (VITAMIN D 3) 400 UNIT TABLET GT SCH ×2 (08:27→21:05)
[2016-09-26] MEDS: DOXAZOSIN MESYLATE 8 MG GT SCH (08:27)
[2016-09-26] MEDS: RIFAXIMIN 550 MG TABLET PO SCH ×2 (08:27→17:39)
[2016-09-26] MEDS: VITAMINS A AND D 56.7 GM TUBE TP SCH ×4 (08:27→21:06)
[2016-09-26] MEDS: VALACYCLOVIR HCL 500 MG TABLET PEG SCH (08:27)
[2016-09-26] MEDS: ASPIRIN 81 MG TAB.CHEW GT SCH (08:27)
[2016-09-26] MEDS: Z GUARD REMEDY 4 OZ OINT TP SCH ×2 (08:27→21:06)
[2016-09-26] MEDS: ZINC SULFATE 220 MG CAPSULE GT SCH (08:27)
[2016-09-26] MEDS: PRUNE JUICE GT SCH (12:52)
[2016-09-26] MEDS: AZITHROMYCIN 250 MG TABLET GT SCH (14:00)
--- NOTE | 2016-09-26 14:52 | NUR ---
Seen and examined by Dr. Edwards NNO given. Informed MD that resident is not ambulating well despite discontinuation of Haldol Deconoate. According to Dr. Edwards it will take about two months to get rid of the medication from his body and he will evaluate at that time.
[2016-09-26] MEDS: HYDROCODONE/APAP 7.5/325MG 1 EACH TABLET GT PRN (17:39)
[2016-09-26 19:48] VITALS: BP 133/77
[2016-09-26] MEDS: METHYLNALTREXONE BROMIDE 12 MG/0.6 ML VIAL SQ SCH (21:06)
[2016-09-26] MEDS: LATANOPROST EYE DROP 0.005% 2.5 ML BOTTLE EACHEYE SCH (21:06)
[2016-09-26] MEDS: PRAVASTATIN SODIUM 20 MG TABLET GT SCH (21:06)
[2016-09-27] MEDS: ALBUTEROL HALF STRENGTH 1.25 MG/3 ML VIAL.NEB NEB SCH ×4 (01:35→19:31)
[2016-09-27] MEDS: FIBERSOURCE HN 1,000 ML BOTTLE GT PRN (05:26)
[2016-09-27] MEDS: CHLORHEXIDINE GLUCONATE 15 ML UDC MM SCH ×2 (05:26→17:08)
[2016-09-27 08:15] VITALS: BP 124/68
[2016-09-27] MEDS: ASPIRIN 81 MG TAB.CHEW GT SCH (09:44)
[2016-09-27] MEDS: PROSOURCE / PROSTAT (PYXIS) 30 ML UDC GT SCH (09:44)
[2016-09-27] MEDS: POTASSIUM CHLORIDE 10 MEQ GT SCH (09:44)
[2016-09-27] MEDS: FINASTERIDE (5 MG) 5 MG TABLET GT SCH (09:44)
[2016-09-27] MEDS: DOXAZOSIN MESYLATE 8 MG GT SCH (09:44)
[2016-09-27] MEDS: CHOLECALCIFEROL (VITAMIN D 3) 400 UNIT TABLET GT SCH ×2 (09:45→21:02)
[2016-09-27] MEDS: HYDROGEN PEROXIDE 480 ML BOTTLE TP SCH ×2 (09:45→21:02)
[2016-09-27] MEDS: VITAMINS A AND D 56.7 GM TUBE TP SCH ×4 (09:45→21:02)
[2016-09-27] MEDS: VALACYCLOVIR HCL 500 MG TABLET PEG SCH (09:45)
[2016-09-27] MEDS: ZINC SULFATE 220 MG CAPSULE GT SCH (09:45)
[2016-09-27] MEDS: Z GUARD REMEDY 4 OZ OINT TP SCH ×2 (09:45→21:02)
[2016-09-27] MEDS: RIFAXIMIN 550 MG TABLET PO SCH ×2 (09:45→17:08)
[2016-09-27] MEDS: HYDROCODONE/APAP 7.5/325MG 1 EACH TABLET GT PRN (11:44)
[2016-09-27] MEDS: PRUNE JUICE GT SCH (13:00)
[2016-09-27] MEDS: AZITHROMYCIN 250 MG TABLET GT SCH (13:17)
[2016-09-27 20:10] VITALS: BP 122/76
[2016-09-27] MEDS: METHYLNALTREXONE BROMIDE 12 MG/0.6 ML VIAL SQ SCH (21:02)
[2016-09-27] MEDS: LATANOPROST EYE DROP 0.005% 2.5 ML BOTTLE EACHEYE SCH (21:03)
[2016-09-27] MEDS: PRAVASTATIN SODIUM 20 MG TABLET GT SCH (21:03)
[2016-09-28] MEDS: ALBUTEROL HALF STRENGTH 1.25 MG/3 ML VIAL.NEB NEB SCH ×4 (01:36→19:14)
[2016-09-28] MEDS: CHLORHEXIDINE GLUCONATE 15 ML UDC MM SCH ×2 (05:32→17:40)
[2016-09-28 07:43] VITALS: BP 134/81
[2016-09-28] MEDS: FINASTERIDE (5 MG) 5 MG TABLET GT SCH (08:29)
[2016-09-28] MEDS: ZINC SULFATE 220 MG CAPSULE GT SCH (08:29)
[2016-09-28] MEDS: VALACYCLOVIR HCL 500 MG TABLET PEG SCH (08:29)
[2016-09-28] MEDS: POTASSIUM CHLORIDE 10 MEQ GT SCH (08:29)
[2016-09-28] MEDS: ASPIRIN 81 MG TAB.CHEW GT SCH (08:29)
[2016-09-28] MEDS: DOXAZOSIN MESYLATE 8 MG GT SCH (08:29)
[2016-09-28] MEDS: CHOLECALCIFEROL (VITAMIN D 3) 400 UNIT TABLET GT SCH ×2 (08:29→21:11)
[2016-09-28] MEDS: PROSOURCE / PROSTAT (PYXIS) 30 ML UDC GT SCH (08:29)
[2016-09-28] MEDS: RIFAXIMIN 550 MG TABLET PO SCH ×2 (08:30→17:40)
[2016-09-28] MEDS: VITAMINS A AND D 56.7 GM TUBE TP SCH ×4 (11:30→21:11)
[2016-09-28] MEDS: Z GUARD REMEDY 4 OZ OINT TP SCH ×2 (11:30→21:11)
[2016-09-28] MEDS: HYDROGEN PEROXIDE 480 ML BOTTLE TP SCH ×2 (11:30→21:11)
[2016-09-28] MEDS: PRUNE JUICE GT SCH (12:00)
[2016-09-28 19:57] VITALS: BP 107/71
[2016-09-28] MEDS: PRAVASTATIN SODIUM 20 MG TABLET GT SCH (21:11)
[2016-09-28] MEDS: METHYLNALTREXONE BROMIDE 12 MG/0.6 ML VIAL SQ SCH (21:11)
[2016-09-28] MEDS: LATANOPROST EYE DROP 0.005% 2.5 ML BOTTLE EACHEYE SCH (21:11)
[2016-09-29] MEDS: ALBUTEROL HALF STRENGTH 1.25 MG/3 ML VIAL.NEB NEB SCH ×4 (01:41→19:54)
[2016-09-29] MEDS: CHLORHEXIDINE GLUCONATE 15 ML UDC MM SCH ×2 (05:37→18:11)
[2016-09-29 07:54] VITALS: BP 113/74
[2016-09-29] MEDS: FINASTERIDE (5 MG) 5 MG TABLET GT SCH (08:21)
[2016-09-29] MEDS: POTASSIUM CHLORIDE 10 MEQ GT SCH (08:21)
[2016-09-29] MEDS: ASPIRIN 81 MG TAB.CHEW GT SCH (08:21)
[2016-09-29] MEDS: ZINC SULFATE 220 MG CAPSULE GT SCH (08:21)
[2016-09-29] MEDS: PROSOURCE / PROSTAT (PYXIS) 30 ML UDC GT SCH (08:21)
[2016-09-29] MEDS: CHOLECALCIFEROL (VITAMIN D 3) 400 UNIT TABLET GT SCH ×2 (08:21→20:50)
[2016-09-29] MEDS: DOXAZOSIN MESYLATE 8 MG GT SCH (08:21)
[2016-09-29] MEDS: RIFAXIMIN 550 MG TABLET PO SCH ×2 (08:21→17:00)
[2016-09-29] MEDS: VALACYCLOVIR HCL 500 MG TABLET PEG SCH (08:21)
[2016-09-29] MEDS: VITAMINS A AND D 56.7 GM TUBE TP SCH ×4 (11:00→20:50)
[2016-09-29] MEDS: Z GUARD REMEDY 4 OZ OINT TP SCH ×2 (11:00→20:50)
[2016-09-29] MEDS: HYDROGEN PEROXIDE 480 ML BOTTLE TP SCH ×2 (11:00→20:50)
[2016-09-29] MEDS: PRUNE JUICE GT SCH (11:22)
[2016-09-29] MEDS: MAGNESIUM HYDROXIDE 30 ML UDC GT PRN (18:31)
[2016-09-29 20:06] VITALS: BP 121/80
[2016-09-29] MEDS: METHYLNALTREXONE BROMIDE 12 MG/0.6 ML VIAL SQ SCH (20:50)
[2016-09-29] MEDS: PRAVASTATIN SODIUM 20 MG TABLET GT SCH (21:13)
[2016-09-29] MEDS: LATANOPROST EYE DROP 0.005% 2.5 ML BOTTLE EACHEYE SCH (21:13)
[2016-09-30] MEDS: ALBUTEROL HALF STRENGTH 1.25 MG/3 ML VIAL.NEB NEB SCH ×4 (00:50→19:40)
[2016-09-30] MEDS: CHLORHEXIDINE GLUCONATE 15 ML UDC MM SCH ×2 (05:44→17:19)
[2016-09-30 08:06] VITALS: BP 124/75
[2016-09-30] MEDS: POTASSIUM CHLORIDE 10 MEQ GT SCH (09:04)
[2016-09-30] MEDS: DOXAZOSIN MESYLATE 8 MG GT SCH (09:04)
[2016-09-30] MEDS: FINASTERIDE (5 MG) 5 MG TABLET GT SCH (09:04)
[2016-09-30] MEDS: PROSOURCE / PROSTAT (PYXIS) 30 ML UDC GT SCH (09:04)
[2016-09-30] MEDS: ASPIRIN 81 MG TAB.CHEW GT SCH (09:04)
[2016-09-30] MEDS: Z GUARD REMEDY 4 OZ OINT TP SCH ×2 (09:14→21:17)
[2016-09-30] MEDS: RIFAXIMIN 550 MG TABLET PO SCH ×2 (09:14→17:19)
[2016-09-30] MEDS: CHOLECALCIFEROL (VITAMIN D 3) 400 UNIT TABLET GT SCH ×2 (09:14→21:17)
[2016-09-30] MEDS: VALACYCLOVIR HCL 500 MG TABLET PEG SCH (09:14)
[2016-09-30] MEDS: VITAMINS A AND D 56.7 GM TUBE TP SCH ×4 (09:14→21:18)
[2016-09-30] MEDS: HYDROGEN PEROXIDE 480 ML BOTTLE TP SCH ×2 (09:14→21:17)
[2016-09-30] MEDS: ZINC SULFATE 220 MG CAPSULE GT SCH (09:14)
[2016-09-30] MEDS: PRUNE JUICE GT SCH (12:28)
--- NOTE | 2016-09-30 14:30 | NUR ---
Seen by Dr Edwards with no new order.
--- NOTE | 2016-09-30 17:30 | NUR ---
Seen by Denise Pichardo NP with no new order.
[2016-09-30 20:00] VITALS: BP 132/80
[2016-09-30] MEDS: METHYLNALTREXONE BROMIDE 12 MG/0.6 ML VIAL SQ SCH (21:17)
[2016-09-30] MEDS: FIBERSOURCE HN 1,000 ML BOTTLE GT PRN (21:18)
[2016-09-30] MEDS: LATANOPROST EYE DROP 0.005% 2.5 ML BOTTLE EACHEYE SCH (21:18)
[2016-09-30] MEDS: PRAVASTATIN SODIUM 20 MG TABLET GT SCH (21:18)
[2016-09-30] MEDS: HYDROCODONE/APAP 7.5/325MG 1 EACH TABLET GT PRN (23:36)
[2016-10-01] MEDS: ALBUTEROL HALF STRENGTH 1.25 MG/3 ML VIAL.NEB NEB SCH ×4 (01:30→19:39)
[2016-10-01] MEDS: CHLORHEXIDINE GLUCONATE 15 ML UDC MM SCH ×2 (05:57→17:36)
[2016-10-01 07:40] VITALS: BP 129/65
[2016-10-01] MEDS: PROSOURCE / PROSTAT (PYXIS) 30 ML UDC GT SCH (09:31)
[2016-10-01] MEDS: FINASTERIDE (5 MG) 5 MG TABLET GT SCH (09:31)
[2016-10-01] MEDS: DOXAZOSIN MESYLATE 8 MG GT SCH (09:31)
[2016-10-01] MEDS: POTASSIUM CHLORIDE 10 MEQ GT SCH (09:31)
[2016-10-01] MEDS: ASPIRIN 81 MG TAB.CHEW GT SCH (09:31)
[2016-10-01] MEDS: CHOLECALCIFEROL (VITAMIN D 3) 400 UNIT TABLET GT SCH ×2 (09:32→21:35)
[2016-10-01] MEDS: ZINC SULFATE 220 MG CAPSULE GT SCH (09:32)
[2016-10-01] MEDS: RIFAXIMIN 550 MG TABLET PO SCH ×2 (09:32→17:35)
[2016-10-01] MEDS: Z GUARD REMEDY 4 OZ OINT TP SCH ×2 (09:32→21:35)
[2016-10-01] MEDS: VALACYCLOVIR HCL 500 MG TABLET PEG SCH (09:32)
[2016-10-01] MEDS: HYDROGEN PEROXIDE 480 ML BOTTLE TP SCH ×2 (09:32→21:35)
[2016-10-01] MEDS: VITAMINS A AND D 56.7 GM TUBE TP SCH ×4 (09:33→21:35)
[2016-10-01] MEDS: PRUNE JUICE GT SCH (12:34)
[2016-10-01] MEDS: FIBERSOURCE HN 1,000 ML BOTTLE GT PRN (17:54)
[2016-10-01 19:59] VITALS: BP 131/80
[2016-10-01] MEDS: PRAVASTATIN SODIUM 20 MG TABLET GT SCH (21:35)
[2016-10-01] MEDS: LATANOPROST EYE DROP 0.005% 2.5 ML BOTTLE EACHEYE SCH (21:35)
[2016-10-01] MEDS: METHYLNALTREXONE BROMIDE 12 MG/0.6 ML VIAL SQ SCH (21:35)
[2016-10-02] MEDS: ALBUTEROL HALF STRENGTH 1.25 MG/3 ML VIAL.NEB NEB SCH ×4 (00:49→19:40)
[2016-10-02] MEDS: CHLORHEXIDINE GLUCONATE 15 ML UDC MM SCH ×2 (06:06→17:05)
[2016-10-02] MEDS: BISACODYL SUPP (10 MG) 10 MG/SUPP.RECT SUPP.RECT RC PRN (06:57)
[2016-10-02] MEDS: FIBERSOURCE HN 1,000 ML BOTTLE GT PRN (06:58)
[2016-10-02] MEDS: VALACYCLOVIR HCL 500 MG TABLET PEG SCH (08:00)
[2016-10-02] MEDS: DOXAZOSIN MESYLATE 8 MG GT SCH (08:00)
[2016-10-02] MEDS: PROSOURCE / PROSTAT (PYXIS) 30 ML UDC GT SCH (08:00)
[2016-10-02] MEDS: ASPIRIN 81 MG TAB.CHEW GT SCH (08:00)
[2016-10-02] MEDS: HYDROGEN PEROXIDE 480 ML BOTTLE TP SCH ×2 (08:00→21:35)
[2016-10-02] MEDS: ZINC SULFATE 220 MG CAPSULE GT SCH (08:00)
[2016-10-02] MEDS: POTASSIUM CHLORIDE 10 MEQ GT SCH (08:00)
[2016-10-02] MEDS: CHOLECALCIFEROL (VITAMIN D 3) 400 UNIT TABLET GT SCH ×2 (08:00→21:35)
[2016-10-02] MEDS: FINASTERIDE (5 MG) 5 MG TABLET GT SCH (08:00)
[2016-10-02] MEDS: RIFAXIMIN 550 MG TABLET PO SCH ×2 (08:00→17:06)
[2016-10-02] MEDS: Z GUARD REMEDY 4 OZ OINT TP SCH ×2 (08:00→21:35)
[2016-10-02] MEDS: VITAMINS A AND D 56.7 GM TUBE TP SCH ×4 (08:01→21:36)
[2016-10-02 08:27] VITALS: BP 125/74
[2016-10-02] MEDS: HYDROCODONE/APAP 7.5/325MG 1 EACH TABLET GT PRN (11:25)
[2016-10-02] MEDS: PRUNE JUICE GT SCH (11:25)
--- NOTE | 2016-10-02 13:38 | NUR ---
IDT meeting held, family unable to attend. IDT team reviewed medications, treatment and labs no new order given by .
[2016-10-02 20:00] VITALS: BP 125/78
[2016-10-02] MEDS: METHYLNALTREXONE BROMIDE 12 MG/0.6 ML VIAL SQ SCH (21:35)
[2016-10-02] MEDS: PRAVASTATIN SODIUM 20 MG TABLET GT SCH (21:36)
[2016-10-02] MEDS: LATANOPROST EYE DROP 0.005% 2.5 ML BOTTLE EACHEYE SCH (21:36)
[2016-10-03] MEDS: ALBUTEROL HALF STRENGTH 1.25 MG/3 ML VIAL.NEB NEB SCH ×4 (00:51→19:51)
[2016-10-03] MEDS: CHLORHEXIDINE GLUCONATE 15 ML UDC MM SCH ×2 (06:32→17:02)
[2016-10-03] MEDS: POTASSIUM CHLORIDE 10 MEQ GT SCH (08:40)
[2016-10-03] MEDS: FINASTERIDE (5 MG) 5 MG TABLET GT SCH (08:40)
[2016-10-03] MEDS: VITAMINS A AND D 56.7 GM TUBE TP SCH ×4 (08:40→21:38)
[2016-10-03] MEDS: ZINC SULFATE 220 MG CAPSULE GT SCH (08:40)
[2016-10-03] MEDS: ASPIRIN 81 MG TAB.CHEW GT SCH (08:40)
[2016-10-03] MEDS: Z GUARD REMEDY 4 OZ OINT TP SCH ×2 (08:40→21:37)
[2016-10-03] MEDS: HYDROGEN PEROXIDE 480 ML BOTTLE TP SCH ×2 (08:40→21:37)
[2016-10-03] MEDS: VALACYCLOVIR HCL 500 MG TABLET PEG SCH (08:40)
[2016-10-03] MEDS: DOXAZOSIN MESYLATE 8 MG GT SCH (08:40)
[2016-10-03] MEDS: CHOLECALCIFEROL (VITAMIN D 3) 400 UNIT TABLET GT SCH ×2 (08:40→21:37)
[2016-10-03] MEDS: PROSOURCE / PROSTAT (PYXIS) 30 ML UDC GT SCH (08:40)
[2016-10-03] MEDS: RIFAXIMIN 550 MG TABLET PO SCH ×2 (08:40→17:02)
[2016-10-03 09:00] VITALS: BP 132/82
[2016-10-03] MEDS: PRUNE JUICE GT SCH (12:19)
[2016-10-03] MEDS: FIBERSOURCE HN 1,000 ML BOTTLE GT PRN (12:20)
[2016-10-03] MEDS: HYDROCODONE/APAP 7.5/325MG 1 EACH TABLET GT PRN (18:20)
[2016-10-03 20:03] VITALS: BP 143/86
[2016-10-03] MEDS: METHYLNALTREXONE BROMIDE 12 MG/0.6 ML VIAL SQ SCH (21:37)
[2016-10-03] MEDS: LATANOPROST EYE DROP 0.005% 2.5 ML BOTTLE EACHEYE SCH (21:38)
[2016-10-03] MEDS: PRAVASTATIN SODIUM 20 MG TABLET GT SCH (21:38)
[2016-10-03 23:00] VITALS: BP 119/77
[2016-10-04] MEDS: ALBUTEROL HALF STRENGTH 1.25 MG/3 ML VIAL.NEB NEB SCH ×4 (01:42→19:41)
[2016-10-04 05:23] LABS: EOSINOPHILS # (AUTO) 0.4 /CMM (0.0-0.7); EOSINOPHILS % (AUTO) 10.3 % (0.0-6.0); HEMATOCRIT 45 % (39-51); HEMOGLOBIN 14.7 g/dL (13.5-17.5); LYMPHOCYTES # (AUTO) 1.4 /CMM (0.8-4.8); LYMPHOCYTES % (AUTO) 31.4 % (20.0-44.0); MEAN CORPUSCULAR HEMOGLOBIN 33 PG (26.0-33.0); MEAN CORPUSCULAR HGB CONC 33 g/dl (31.0-36.0); MEAN CORPUSCULAR VOLUME 101 fL (80-96); MONOCYTES # (AUTO) 0.3 /CMM (0.1-1.30); NEUTROPHILS # (AUTO) 2.2 /CMM (1.8-8.9); NEUTROPHILS % (AUTO) 49.3 % (43.0-81.0); PLATELET COUNT (AUTO) 103 /CMM (150-450); RDW COEFFICIENT OF VARIATION 13.8 (11.5-15.0); RED BLOOD CELL COUNT(AUTO) 4.46 MIL/uL (4.5-6.0); WHITE BLOOD COUNT (AUTO) 4.4 K/uL (4.3-11.0)
[2016-10-04 05:52] LABS: ALBUMIN 2.9 g/dL (3.4-5.0); BILIRUBIN,TOTAL 0.6 mg/dL (0.2-1.0); CALCIUM, SERUM 8.6 mg/dL (8.5-10.1); CREATININE 0.8 mg/dL (0.6-1.3); POTASSIUM 4.5 mmol/L (3.5-5.1); TOTAL PROTEIN, SERUM 6.9 g/dL (6.4-8.2)
[2016-10-04] MEDS: CHLORHEXIDINE GLUCONATE 15 ML UDC MM SCH ×2 (06:06→17:26)
[2016-10-04] MEDS: FIBERSOURCE HN 1,000 ML BOTTLE GT PRN (06:06)
[2016-10-04] MEDS: HYDROCODONE/APAP 7.5/325MG 1 EACH TABLET GT PRN (06:07)
[2016-10-04 08:36] VITALS: BP 116/77
[2016-10-04] MEDS: ASPIRIN 81 MG TAB.CHEW GT SCH (08:49)
[2016-10-04] MEDS: DOXAZOSIN MESYLATE 8 MG GT SCH (08:49)
[2016-10-04] MEDS: VALACYCLOVIR HCL 500 MG TABLET PEG SCH (08:50)
[2016-10-04] MEDS: Z GUARD REMEDY 4 OZ OINT TP SCH ×2 (08:50→20:58)
[2016-10-04] MEDS: ZINC SULFATE 220 MG CAPSULE GT SCH (08:50)
[2016-10-04] MEDS: PROSOURCE / PROSTAT (PYXIS) 30 ML UDC GT SCH (08:50)
[2016-10-04] MEDS: CHOLECALCIFEROL (VITAMIN D 3) 400 UNIT TABLET GT SCH ×2 (08:50→20:58)
[2016-10-04] MEDS: HYDROGEN PEROXIDE 480 ML BOTTLE TP SCH ×2 (08:50→20:58)
[2016-10-04] MEDS: FINASTERIDE (5 MG) 5 MG TABLET GT SCH (08:50)
[2016-10-04] MEDS: POTASSIUM CHLORIDE 10 MEQ GT SCH (08:50)
[2016-10-04] MEDS: VITAMINS A AND D 56.7 GM TUBE TP SCH ×4 (08:50→20:59)
[2016-10-04] MEDS: RIFAXIMIN 550 MG TABLET PO SCH ×2 (08:50→17:26)
[2016-10-04] MEDS: PRUNE JUICE GT SCH (12:12)
[2016-10-04 20:10] VITALS: BP 132/87
[2016-10-04] MEDS: METHYLNALTREXONE BROMIDE 12 MG/0.6 ML VIAL SQ SCH (20:58)
[2016-10-04] MEDS: LATANOPROST EYE DROP 0.005% 2.5 ML BOTTLE EACHEYE SCH (22:50)
[2016-10-04] MEDS: PRAVASTATIN SODIUM 20 MG TABLET GT SCH (22:50)
[2016-10-05] MEDS: ALBUTEROL HALF STRENGTH 1.25 MG/3 ML VIAL.NEB NEB SCH ×4 (01:12→19:30)
[2016-10-05] MEDS: CHLORHEXIDINE GLUCONATE 15 ML UDC MM SCH ×2 (05:21→17:54)
[2016-10-05 08:00] VITALS: BP 126/80
[2016-10-05] MEDS: HYDROGEN PEROXIDE 480 ML BOTTLE TP SCH ×2 (09:00→20:54)
[2016-10-05] MEDS: Z GUARD REMEDY 4 OZ OINT TP SCH ×2 (09:00→20:54)
[2016-10-05] MEDS: VITAMINS A AND D 56.7 GM TUBE TP SCH ×4 (09:00→20:54)
[2016-10-05] MEDS: ASPIRIN 81 MG TAB.CHEW GT SCH (09:11)
[2016-10-05] MEDS: ZINC SULFATE 220 MG CAPSULE GT SCH (09:12)
[2016-10-05] MEDS: FINASTERIDE (5 MG) 5 MG TABLET GT SCH (09:12)
[2016-10-05] MEDS: CHOLECALCIFEROL (VITAMIN D 3) 400 UNIT TABLET GT SCH ×2 (09:12→20:53)
[2016-10-05] MEDS: VALACYCLOVIR HCL 500 MG TABLET PEG SCH (09:12)
[2016-10-05] MEDS: PROSOURCE / PROSTAT (PYXIS) 30 ML UDC GT SCH (09:12)
[2016-10-05] MEDS: DOXAZOSIN MESYLATE 8 MG GT SCH (09:12)
[2016-10-05] MEDS: RIFAXIMIN 550 MG TABLET PO SCH ×2 (09:12→17:54)
[2016-10-05] MEDS: POTASSIUM CHLORIDE 10 MEQ GT SCH (09:12)
[2016-10-05] MEDS: PRUNE JUICE GT SCH (12:00)
[2016-10-05 20:02] VITALS: BP 135/81
[2016-10-05] MEDS: METHYLNALTREXONE BROMIDE 12 MG/0.6 ML VIAL SQ SCH (20:53)
[2016-10-05] MEDS: LATANOPROST EYE DROP 0.005% 2.5 ML BOTTLE EACHEYE SCH (22:00)
[2016-10-05] MEDS: PRAVASTATIN SODIUM 20 MG TABLET GT SCH (22:30)
[2016-10-06] MEDS: ALBUTEROL HALF STRENGTH 1.25 MG/3 ML VIAL.NEB NEB SCH ×4 (01:32→19:30)
[2016-10-06] MEDS: CHLORHEXIDINE GLUCONATE 15 ML UDC MM SCH ×2 (05:42→17:15)
[2016-10-06 07:45] VITALS: BP 124/59
[2016-10-06] MEDS: Z GUARD REMEDY 4 OZ OINT TP SCH ×2 (09:00→20:45)
[2016-10-06] MEDS: VITAMINS A AND D 56.7 GM TUBE TP SCH ×4 (09:00→20:45)
[2016-10-06] MEDS: HYDROGEN PEROXIDE 480 ML BOTTLE TP SCH ×2 (09:00→20:44)
[2016-10-06] MEDS: DOXAZOSIN MESYLATE 8 MG GT SCH (09:11)
[2016-10-06] MEDS: ASPIRIN 81 MG TAB.CHEW GT SCH (09:11)
[2016-10-06] MEDS: FINASTERIDE (5 MG) 5 MG TABLET GT SCH (09:11)
[2016-10-06] MEDS: PROSOURCE / PROSTAT (PYXIS) 30 ML UDC GT SCH (09:11)
[2016-10-06] MEDS: ZINC SULFATE 220 MG CAPSULE GT SCH (09:11)
[2016-10-06] MEDS: CHOLECALCIFEROL (VITAMIN D 3) 400 UNIT TABLET GT SCH ×2 (09:11→20:44)
[2016-10-06] MEDS: VALACYCLOVIR HCL 500 MG TABLET PEG SCH (09:11)
[2016-10-06] MEDS: RIFAXIMIN 550 MG TABLET PO SCH ×2 (09:11→16:57)
[2016-10-06] MEDS: POTASSIUM CHLORIDE 10 MEQ GT SCH (09:11)
--- NOTE | 2016-10-06 09:30 | NUR ---
Seen by Dr Mejia with no new order.
[2016-10-06] MEDS: PRUNE JUICE GT SCH (12:00)
[2016-10-06 19:50] VITALS: BP 128/83
[2016-10-06] MEDS: METHYLNALTREXONE BROMIDE 12 MG/0.6 ML VIAL SQ SCH (20:44)
[2016-10-06] MEDS: LATANOPROST EYE DROP 0.005% 2.5 ML BOTTLE EACHEYE SCH (21:16)
[2016-10-06] MEDS: PRAVASTATIN SODIUM 20 MG TABLET GT SCH (21:16)
[2016-10-07] MEDS: ALBUTEROL HALF STRENGTH 1.25 MG/3 ML VIAL.NEB NEB SCH ×4 (01:30→20:45)
[2016-10-07] MEDS: CHLORHEXIDINE GLUCONATE 15 ML UDC MM SCH ×2 (06:10→17:43)
[2016-10-07 08:01] VITALS: BP 122/82
[2016-10-07] MEDS: POTASSIUM CHLORIDE 10 MEQ GT SCH (08:47)
[2016-10-07] MEDS: ASPIRIN 81 MG TAB.CHEW GT SCH (08:47)
[2016-10-07] MEDS: DOXAZOSIN MESYLATE 8 MG GT SCH (08:47)
[2016-10-07] MEDS: VITAMINS A AND D 56.7 GM TUBE TP SCH ×4 (08:47→21:55)
[2016-10-07] MEDS: PROSOURCE / PROSTAT (PYXIS) 30 ML UDC GT SCH (08:47)
[2016-10-07] MEDS: Z GUARD REMEDY 4 OZ OINT TP SCH ×2 (08:47→21:55)
[2016-10-07] MEDS: ZINC SULFATE 220 MG CAPSULE GT SCH (08:47)
[2016-10-07] MEDS: FINASTERIDE (5 MG) 5 MG TABLET GT SCH (08:47)
[2016-10-07] MEDS: VALACYCLOVIR HCL 500 MG TABLET PEG SCH (08:47)
[2016-10-07] MEDS: CHOLECALCIFEROL (VITAMIN D 3) 400 UNIT TABLET GT SCH ×2 (08:47→21:55)
[2016-10-07] MEDS: RIFAXIMIN 550 MG TABLET PO SCH ×2 (08:47→17:43)
[2016-10-07] MEDS: HYDROGEN PEROXIDE 480 ML BOTTLE TP SCH ×2 (08:47→21:55)
[2016-10-07] MEDS: PRUNE JUICE GT SCH (12:48)
[2016-10-07] MEDS: FIBERSOURCE HN 1,000 ML BOTTLE GT PRN (14:00)
[2016-10-07] MEDS: HYDROCODONE/APAP 7.5/325MG 1 EACH TABLET GT PRN (19:48)
[2016-10-07 19:56] VITALS: BP 129/80
[2016-10-07] MEDS: LATANOPROST EYE DROP 0.005% 2.5 ML BOTTLE EACHEYE SCH (21:55)
[2016-10-07] MEDS: METHYLNALTREXONE BROMIDE 12 MG/0.6 ML VIAL SQ SCH (21:55)
[2016-10-07] MEDS: PRAVASTATIN SODIUM 20 MG TABLET GT SCH (21:55)
[2016-10-08] MEDS: ALBUTEROL HALF STRENGTH 1.25 MG/3 ML VIAL.NEB NEB SCH ×4 (01:28→21:19)
[2016-10-08] MEDS: CHLORHEXIDINE GLUCONATE 15 ML UDC MM SCH ×2 (06:12→17:22)
[2016-10-08] MEDS: FIBERSOURCE HN 1,000 ML BOTTLE GT PRN (06:15)
[2016-10-08 07:56] VITALS: BP 129/75
[2016-10-08] MEDS: POTASSIUM CHLORIDE 10 MEQ GT SCH (09:00)
[2016-10-08] MEDS: DOXAZOSIN MESYLATE 8 MG GT SCH (09:00)
[2016-10-08] MEDS: FINASTERIDE (5 MG) 5 MG TABLET GT SCH (09:00)
[2016-10-08] MEDS: PROSOURCE / PROSTAT (PYXIS) 30 ML UDC GT SCH (09:00)
[2016-10-08] MEDS: VITAMINS A AND D 56.7 GM TUBE TP SCH ×4 (09:00→21:47)
[2016-10-08] MEDS: CHOLECALCIFEROL (VITAMIN D 3) 400 UNIT TABLET GT SCH ×2 (09:00→21:47)
[2016-10-08] MEDS: VALACYCLOVIR HCL 500 MG TABLET PEG SCH (09:00)
[2016-10-08] MEDS: ZINC SULFATE 220 MG CAPSULE GT SCH (09:00)
[2016-10-08] MEDS: Z GUARD REMEDY 4 OZ OINT TP SCH ×2 (09:00→21:47)
[2016-10-08] MEDS: ASPIRIN 81 MG TAB.CHEW GT SCH (09:00)
[2016-10-08] MEDS: RIFAXIMIN 550 MG TABLET PO SCH ×2 (09:00→16:52)
[2016-10-08] MEDS: HYDROGEN PEROXIDE 480 ML BOTTLE TP SCH ×2 (09:00→21:47)
[2016-10-08] MEDS: PRUNE JUICE GT SCH (12:32)
[2016-10-08] MEDS: ACETAMINOPHEN 650 MG/20 ML UDC- FOR SA PATIENTS ONLY PO PRN (15:44)
--- NOTE | 2016-10-08 18:10 | NUR ---
RN NOTES PT RESTING COMFORTABLY. NOT IN ANY DISTRESS. COOL AEROSOL, BREATHING EVEN AND UNLABORED. NO SIGN OF PAIN OR FACIAL GRIMACING. GTF ONGOING FIBERSOURCE 60 ML/HR, TOLERATING WELL, O RESIDUAL. AM/PM CARE RENDERED AND PRN. TURNED AND REPOSITIONED. ALL DUE MEDS ADMINISTERED DURING THE SHIFT. ALL NEEDS MET. SAFETY MEASURES, SUCTION INTERMITTENTLY. WILL ENDORSE TO NEXT SHIFT FOR BULMARO.
[2016-10-08 19:57] VITALS: BP 113/72
[2016-10-08] MEDS: LATANOPROST EYE DROP 0.005% 2.5 ML BOTTLE EACHEYE SCH (21:47)
[2016-10-08] MEDS: METHYLNALTREXONE BROMIDE 12 MG/0.6 ML VIAL SQ SCH (21:47)
[2016-10-08] MEDS: PRAVASTATIN SODIUM 20 MG TABLET GT SCH (21:47)
[2016-10-09] MEDS: FIBERSOURCE HN 1,000 ML BOTTLE GT PRN (00:57)
[2016-10-09] MEDS: ALBUTEROL HALF STRENGTH 1.25 MG/3 ML VIAL.NEB NEB SCH ×4 (01:13→19:49)
[2016-10-09] MEDS: CHLORHEXIDINE GLUCONATE 15 ML UDC MM SCH ×2 (06:01→17:39)
[2016-10-09 07:51] VITALS: BP 118/68
[2016-10-09] MEDS: FINASTERIDE (5 MG) 5 MG TABLET GT SCH (09:22)
[2016-10-09] MEDS: POTASSIUM CHLORIDE 10 MEQ GT SCH (09:22)
[2016-10-09] MEDS: DOXAZOSIN MESYLATE 8 MG GT SCH (09:22)
[2016-10-09] MEDS: ASPIRIN 81 MG TAB.CHEW GT SCH (09:22)
[2016-10-09] MEDS: VALACYCLOVIR HCL 500 MG TABLET PEG SCH (09:23)
[2016-10-09] MEDS: HYDROGEN PEROXIDE 480 ML BOTTLE TP SCH ×2 (09:23→21:34)
[2016-10-09] MEDS: ZINC SULFATE 220 MG CAPSULE GT SCH (09:23)
[2016-10-09] MEDS: CHOLECALCIFEROL (VITAMIN D 3) 400 UNIT TABLET GT SCH ×2 (09:23→21:33)
[2016-10-09] MEDS: RIFAXIMIN 550 MG TABLET PO SCH ×2 (09:23→17:39)
[2016-10-09] MEDS: Z GUARD REMEDY 4 OZ OINT TP SCH ×2 (09:23→21:34)
[2016-10-09] MEDS: PROSOURCE / PROSTAT (PYXIS) 30 ML UDC GT SCH (09:23)
[2016-10-09] MEDS: VITAMINS A AND D 56.7 GM TUBE TP SCH ×4 (09:24→21:34)
[2016-10-09] MEDS: PRUNE JUICE GT SCH (12:54)
--- NOTE | 2016-10-09 14:19 | NUR ---
Seen and examined by Dr. Edwards no new order given.
[2016-10-09 19:54] VITALS: BP 133/74
[2016-10-09] MEDS: METHYLNALTREXONE BROMIDE 12 MG/0.6 ML VIAL SQ SCH (21:33)
[2016-10-09] MEDS: LATANOPROST EYE DROP 0.005% 2.5 ML BOTTLE EACHEYE SCH (21:34)
[2016-10-09] MEDS: PRAVASTATIN SODIUM 20 MG TABLET GT SCH (21:34)
[2016-10-10] MEDS: FIBERSOURCE HN 1,000 ML BOTTLE GT PRN ×2 (01:09→21:10)
[2016-10-10] MEDS: ALBUTEROL HALF STRENGTH 1.25 MG/3 ML VIAL.NEB NEB SCH ×4 (01:47→19:30)
[2016-10-10] MEDS: CHLORHEXIDINE GLUCONATE 15 ML UDC MM SCH ×2 (06:23→17:25)
[2016-10-10 07:29] VITALS: BP 130/86
[2016-10-10] MEDS: HYDROGEN PEROXIDE 480 ML BOTTLE TP SCH ×2 (08:41→21:09)
[2016-10-10] MEDS: ZINC SULFATE 220 MG CAPSULE GT SCH (08:41)
[2016-10-10] MEDS: CHOLECALCIFEROL (VITAMIN D 3) 400 UNIT TABLET GT SCH ×2 (08:41→21:09)
[2016-10-10] MEDS: ASPIRIN 81 MG TAB.CHEW GT SCH (08:41)
[2016-10-10] MEDS: FINASTERIDE (5 MG) 5 MG TABLET GT SCH (08:41)
[2016-10-10] MEDS: VALACYCLOVIR HCL 500 MG TABLET PEG SCH (08:41)
[2016-10-10] MEDS: RIFAXIMIN 550 MG TABLET PO SCH ×2 (08:41→17:25)
[2016-10-10] MEDS: POTASSIUM CHLORIDE 10 MEQ GT SCH (08:41)
[2016-10-10] MEDS: DOXAZOSIN MESYLATE 8 MG GT SCH (08:41)
[2016-10-10] MEDS: PROSOURCE / PROSTAT (PYXIS) 30 ML UDC GT SCH (08:41)
[2016-10-10] MEDS: Z GUARD REMEDY 4 OZ OINT TP SCH ×2 (08:42→21:09)
[2016-10-10] MEDS: VITAMINS A AND D 56.7 GM TUBE TP SCH ×4 (08:42→21:09)
[2016-10-10] MEDS: PRUNE JUICE GT SCH (12:06)
[2016-10-10] MEDS: HYDROCODONE/APAP 7.5/325MG 1 EACH TABLET GT PRN (13:42)
[2016-10-10] MEDS: METHYLNALTREXONE BROMIDE 12 MG/0.6 ML VIAL SQ SCH (21:09)
[2016-10-10] MEDS: PRAVASTATIN SODIUM 20 MG TABLET GT SCH (21:10)
[2016-10-10] MEDS: LATANOPROST EYE DROP 0.005% 2.5 ML BOTTLE EACHEYE SCH (21:10)
[2016-10-10 21:26] VITALS: BP 133/80
[2016-10-11] MEDS: ALBUTEROL HALF STRENGTH 1.25 MG/3 ML VIAL.NEB NEB SCH ×4 (02:01→19:57)
[2016-10-11] MEDS: CHLORHEXIDINE GLUCONATE 15 ML UDC MM SCH ×2 (05:15→17:43)
[2016-10-11] MEDS: MAGNESIUM HYDROXIDE 30 ML UDC GT PRN (06:39)
[2016-10-11 08:00] VITALS: BP 136/79
[2016-10-11] MEDS: ASPIRIN 81 MG TAB.CHEW GT SCH (08:50)
[2016-10-11] MEDS: VALACYCLOVIR HCL 500 MG TABLET PEG SCH (08:50)
[2016-10-11] MEDS: VITAMINS A AND D 56.7 GM TUBE TP SCH ×4 (08:50→20:42)
[2016-10-11] MEDS: Z GUARD REMEDY 4 OZ OINT TP SCH ×2 (08:50→20:42)
[2016-10-11] MEDS: PROSOURCE / PROSTAT (PYXIS) 30 ML UDC GT SCH (08:50)
[2016-10-11] MEDS: HYDROGEN PEROXIDE 480 ML BOTTLE TP SCH ×2 (08:50→20:42)
[2016-10-11] MEDS: RIFAXIMIN 550 MG TABLET PO SCH ×2 (08:50→17:43)
[2016-10-11] MEDS: DOXAZOSIN MESYLATE 8 MG GT SCH (08:50)
[2016-10-11] MEDS: FINASTERIDE (5 MG) 5 MG TABLET GT SCH (08:50)
[2016-10-11] MEDS: POTASSIUM CHLORIDE 10 MEQ GT SCH (08:50)
[2016-10-11] MEDS: CHOLECALCIFEROL (VITAMIN D 3) 400 UNIT TABLET GT SCH ×2 (08:50→20:40)
[2016-10-11] MEDS: PRUNE JUICE GT SCH (12:25)
[2016-10-11 20:00] VITALS: BP 125/75
[2016-10-11] MEDS: METHYLNALTREXONE BROMIDE 12 MG/0.6 ML VIAL SQ SCH (20:42)
[2016-10-11] MEDS: LATANOPROST EYE DROP 0.005% 2.5 ML BOTTLE EACHEYE SCH (22:53)
[2016-10-11] MEDS: PRAVASTATIN SODIUM 20 MG TABLET GT SCH (22:53)
[2016-10-12] MEDS: ALBUTEROL HALF STRENGTH 1.25 MG/3 ML VIAL.NEB NEB SCH ×4 (01:08→19:48)
[2016-10-12] MEDS: CHLORHEXIDINE GLUCONATE 15 ML UDC MM SCH ×2 (05:35→17:25)
[2016-10-12 08:06] VITALS: BP 130/82
[2016-10-12] MEDS: FINASTERIDE (5 MG) 5 MG TABLET GT SCH (08:33)
[2016-10-12] MEDS: PROSOURCE / PROSTAT (PYXIS) 30 ML UDC GT SCH (08:33)
[2016-10-12] MEDS: CHOLECALCIFEROL (VITAMIN D 3) 400 UNIT TABLET GT SCH ×2 (08:33→20:51)
[2016-10-12] MEDS: POTASSIUM CHLORIDE 10 MEQ GT SCH (08:33)
[2016-10-12] MEDS: ASPIRIN 81 MG TAB.CHEW GT SCH (08:33)
[2016-10-12] MEDS: VITAMINS A AND D 56.7 GM TUBE TP SCH ×4 (08:33→20:51)
[2016-10-12] MEDS: Z GUARD REMEDY 4 OZ OINT TP SCH ×2 (08:33→20:51)
[2016-10-12] MEDS: DOXAZOSIN MESYLATE 8 MG GT SCH (08:33)
[2016-10-12] MEDS: HYDROGEN PEROXIDE 480 ML BOTTLE TP SCH ×2 (08:33→20:51)
[2016-10-12] MEDS: VALACYCLOVIR HCL 500 MG TABLET PEG SCH (08:33)
[2016-10-12] MEDS: RIFAXIMIN 550 MG TABLET PO SCH ×2 (08:33→16:37)
[2016-10-12] MEDS: PRUNE JUICE GT SCH (12:00)
[2016-10-12 20:10] VITALS: BP 110/69
[2016-10-12] MEDS: METHYLNALTREXONE BROMIDE 12 MG/0.6 ML VIAL SQ SCH (20:51)
[2016-10-12] MEDS: PRAVASTATIN SODIUM 20 MG TABLET GT SCH (22:03)
[2016-10-12] MEDS: LATANOPROST EYE DROP 0.005% 2.5 ML BOTTLE EACHEYE SCH (22:03)
[2016-10-13] MEDS: ALBUTEROL HALF STRENGTH 1.25 MG/3 ML VIAL.NEB NEB SCH ×4 (01:07→19:27)
[2016-10-13] MEDS: CHLORHEXIDINE GLUCONATE 15 ML UDC MM SCH ×2 (05:48→17:08)
[2016-10-13 08:12] VITALS: BP 135/75
[2016-10-13] MEDS: PROSOURCE / PROSTAT (PYXIS) 30 ML UDC GT SCH (08:59)
[2016-10-13] MEDS: RIFAXIMIN 550 MG TABLET PO SCH ×2 (08:59→17:07)
[2016-10-13] MEDS: DOXAZOSIN MESYLATE 8 MG GT SCH (08:59)
[2016-10-13] MEDS: ASPIRIN 81 MG TAB.CHEW GT SCH (08:59)
[2016-10-13] MEDS: VALACYCLOVIR HCL 500 MG TABLET PEG SCH (08:59)
[2016-10-13] MEDS: VITAMINS A AND D 56.7 GM TUBE TP SCH ×4 (08:59→20:30)
[2016-10-13] MEDS: FINASTERIDE (5 MG) 5 MG TABLET GT SCH (08:59)
[2016-10-13] MEDS: HYDROGEN PEROXIDE 480 ML BOTTLE TP SCH ×2 (08:59→20:29)
[2016-10-13] MEDS: CHOLECALCIFEROL (VITAMIN D 3) 400 UNIT TABLET GT SCH ×2 (08:59→20:29)
[2016-10-13] MEDS: POTASSIUM CHLORIDE 10 MEQ GT SCH (08:59)
[2016-10-13] MEDS: Z GUARD REMEDY 4 OZ OINT TP SCH ×2 (08:59→20:29)
[2016-10-13] MEDS: PRUNE JUICE GT SCH (12:00)
[2016-10-13 19:39] VITALS: BP 138/80
[2016-10-13] MEDS: METHYLNALTREXONE BROMIDE 12 MG/0.6 ML VIAL SQ SCH (20:29)
[2016-10-13] MEDS: LATANOPROST EYE DROP 0.005% 2.5 ML BOTTLE EACHEYE SCH (22:26)
[2016-10-13] MEDS: PRAVASTATIN SODIUM 20 MG TABLET GT SCH (22:27)
[2016-10-14] MEDS: ALBUTEROL HALF STRENGTH 1.25 MG/3 ML VIAL.NEB NEB SCH ×4 (01:08→20:33)
[2016-10-14] MEDS: CHLORHEXIDINE GLUCONATE 15 ML UDC MM SCH ×2 (05:23→17:49)
[2016-10-14 07:34] VITALS: BP 135/79
[2016-10-14] MEDS: RIFAXIMIN 550 MG TABLET PO SCH ×2 (09:00→17:49)
[2016-10-14] MEDS: Z GUARD REMEDY 4 OZ OINT TP SCH ×2 (09:00→20:57)
[2016-10-14] MEDS: CHOLECALCIFEROL (VITAMIN D 3) 400 UNIT TABLET GT SCH ×2 (09:00→20:57)
[2016-10-14] MEDS: VALACYCLOVIR HCL 500 MG TABLET PEG SCH (09:00)
[2016-10-14] MEDS: VITAMINS A AND D 56.7 GM TUBE TP SCH ×4 (09:00→20:57)
[2016-10-14] MEDS: POTASSIUM CHLORIDE 10 MEQ GT SCH (09:00)
[2016-10-14] MEDS: DOXAZOSIN MESYLATE 8 MG GT SCH (09:00)
[2016-10-14] MEDS: FINASTERIDE (5 MG) 5 MG TABLET GT SCH (09:00)
[2016-10-14] MEDS: HYDROGEN PEROXIDE 480 ML BOTTLE TP SCH ×2 (09:00→20:57)
[2016-10-14] MEDS: PROSOURCE / PROSTAT (PYXIS) 30 ML UDC GT SCH (09:00)
[2016-10-14] MEDS: ASPIRIN 81 MG TAB.CHEW GT SCH (09:00)
[2016-10-14] MEDS: PRUNE JUICE GT SCH (12:05)
[2016-10-14 19:36] VITALS: BP 135/74
[2016-10-14] MEDS: METHYLNALTREXONE BROMIDE 12 MG/0.6 ML VIAL SQ SCH (20:57)
[2016-10-14] MEDS: LATANOPROST EYE DROP 0.005% 2.5 ML BOTTLE EACHEYE SCH (21:09)
[2016-10-14] MEDS: PRAVASTATIN SODIUM 20 MG TABLET GT SCH (21:09)
[2016-10-15] MEDS: ALBUTEROL HALF STRENGTH 1.25 MG/3 ML VIAL.NEB NEB SCH ×4 (01:47→20:02)
[2016-10-15] MEDS: FIBERSOURCE HN 1,000 ML BOTTLE GT PRN (03:58)
[2016-10-15] MEDS: [UNRECOGNIZED DRUG - OTHER] GT PRN (03:59)
[2016-10-15] MEDS: CHLORHEXIDINE GLUCONATE 15 ML UDC MM SCH ×2 (05:46→17:22)
[2016-10-15 07:47] VITALS: BP 124/83
[2016-10-15] MEDS: ASPIRIN 81 MG TAB.CHEW GT SCH (09:50)
[2016-10-15] MEDS: Z GUARD REMEDY 4 OZ OINT TP SCH ×2 (09:50→20:47)
[2016-10-15] MEDS: DOXAZOSIN MESYLATE 8 MG GT SCH (09:50)
[2016-10-15] MEDS: POTASSIUM CHLORIDE 10 MEQ GT SCH (09:50)
[2016-10-15] MEDS: CHOLECALCIFEROL (VITAMIN D 3) 400 UNIT TABLET GT SCH ×2 (09:50→20:46)
[2016-10-15] MEDS: FINASTERIDE (5 MG) 5 MG TABLET GT SCH (09:50)
[2016-10-15] MEDS: RIFAXIMIN 550 MG TABLET PO SCH ×2 (09:50→17:22)
[2016-10-15] MEDS: VITAMINS A AND D 56.7 GM TUBE TP SCH ×4 (09:50→20:47)
[2016-10-15] MEDS: HYDROGEN PEROXIDE 480 ML BOTTLE TP SCH ×2 (09:50→20:47)
[2016-10-15] MEDS: PROSOURCE / PROSTAT (PYXIS) 30 ML UDC GT SCH (09:50)
[2016-10-15] MEDS: VALACYCLOVIR HCL 500 MG TABLET PEG SCH (09:50)
[2016-10-15] MEDS: PRUNE JUICE GT SCH (12:00)
[2016-10-15 20:39] VITALS: BP 116/70
[2016-10-15] MEDS: METHYLNALTREXONE BROMIDE 12 MG/0.6 ML VIAL SQ SCH (20:46)
[2016-10-15] MEDS: PRAVASTATIN SODIUM 20 MG TABLET GT SCH (21:38)
[2016-10-15] MEDS: LATANOPROST EYE DROP 0.005% 2.5 ML BOTTLE EACHEYE SCH (22:52)
[2016-10-16] MEDS: ALBUTEROL HALF STRENGTH 1.25 MG/3 ML VIAL.NEB NEB SCH ×4 (01:48→19:26)
[2016-10-16] MEDS: SIMETHICONE SUSP 40 MG/0.6 ML BOTTLE GT PRN (05:16)
[2016-10-16] MEDS: CHLORHEXIDINE GLUCONATE 15 ML UDC MM SCH ×2 (05:16→17:16)
[2016-10-16] MEDS: MAGNESIUM HYDROXIDE 30 ML UDC GT PRN (05:16)
[2016-10-16] MEDS: [UNRECOGNIZED DRUG - OTHER] GT PRN (05:16)
[2016-10-16 07:58] VITALS: BP 114/72
[2016-10-16] MEDS: Z GUARD REMEDY 4 OZ OINT TP SCH ×2 (09:08→20:49)
[2016-10-16] MEDS: VALACYCLOVIR HCL 500 MG TABLET PEG SCH (09:08)
[2016-10-16] MEDS: CHOLECALCIFEROL (VITAMIN D 3) 400 UNIT TABLET GT SCH ×2 (09:08→20:48)
[2016-10-16] MEDS: ASPIRIN 81 MG TAB.CHEW GT SCH (09:08)
[2016-10-16] MEDS: VITAMINS A AND D 56.7 GM TUBE TP SCH ×4 (09:08→20:49)
[2016-10-16] MEDS: DOXAZOSIN MESYLATE 8 MG GT SCH (09:08)
[2016-10-16] MEDS: RIFAXIMIN 550 MG TABLET PO SCH ×2 (09:08→17:16)
[2016-10-16] MEDS: PROSOURCE / PROSTAT (PYXIS) 30 ML UDC GT SCH (09:08)
[2016-10-16] MEDS: HYDROGEN PEROXIDE 480 ML BOTTLE TP SCH ×2 (09:08→20:48)
[2016-10-16] MEDS: POTASSIUM CHLORIDE 10 MEQ GT SCH (09:08)
[2016-10-16] MEDS: FINASTERIDE (5 MG) 5 MG TABLET GT SCH (09:08)
[2016-10-16] MEDS: PRUNE JUICE GT SCH (12:36)
[2016-10-16] MEDS: FIBERSOURCE HN 1,000 ML BOTTLE GT PRN (13:37)
[2016-10-16] MEDS: METHYLNALTREXONE BROMIDE 12 MG/0.6 ML VIAL SQ SCH (20:48)
[2016-10-16] MEDS: LATANOPROST EYE DROP 0.005% 2.5 ML BOTTLE EACHEYE SCH (21:12)
[2016-10-16] MEDS: PRAVASTATIN SODIUM 20 MG TABLET GT SCH (21:12)
[2016-10-16 21:39] VITALS: BP 129/84
[2016-10-17] MEDS: ALBUTEROL HALF STRENGTH 1.25 MG/3 ML VIAL.NEB NEB SCH ×4 (01:16→19:18)
[2016-10-17] MEDS: CHLORHEXIDINE GLUCONATE 15 ML UDC MM SCH ×2 (05:21→17:26)
[2016-10-17] MEDS: FIBERSOURCE HN 1,000 ML BOTTLE GT PRN (07:18)
[2016-10-17 07:52] VITALS: BP 123/76
[2016-10-17] MEDS: HYDROGEN PEROXIDE 480 ML BOTTLE TP SCH ×2 (08:17→21:17)
[2016-10-17] MEDS: POTASSIUM CHLORIDE 10 MEQ GT SCH (08:17)
[2016-10-17] MEDS: RIFAXIMIN 550 MG TABLET PO SCH ×2 (08:17→17:25)
[2016-10-17] MEDS: ASPIRIN 81 MG TAB.CHEW GT SCH (08:17)
[2016-10-17] MEDS: CHOLECALCIFEROL (VITAMIN D 3) 400 UNIT TABLET GT SCH ×2 (08:17→21:16)
[2016-10-17] MEDS: DOXAZOSIN MESYLATE 8 MG GT SCH (08:17)
[2016-10-17] MEDS: FINASTERIDE (5 MG) 5 MG TABLET GT SCH (08:17)
[2016-10-17] MEDS: VALACYCLOVIR HCL 500 MG TABLET PEG SCH (08:17)
[2016-10-17] MEDS: PROSOURCE / PROSTAT (PYXIS) 30 ML UDC GT SCH (08:17)
[2016-10-17] MEDS: VITAMINS A AND D 56.7 GM TUBE TP SCH ×4 (08:18→21:18)
[2016-10-17] MEDS: Z GUARD REMEDY 4 OZ OINT TP SCH ×2 (08:18→21:18)
[2016-10-17] MEDS: PRUNE JUICE GT SCH (12:15)
--- NOTE | 2016-10-17 12:58 | NUR ---
Seen and examined by Dr. Edwards and he stated that he is allowing patient's to give a very very small amount of apple sauce, less than 1/2 teaspoon for oral gratification. He does not him to have a swallow eval. He stated that if patient can have this small amount of food and tolerate it, he may have more quality of life. Dr Edwards gave an order for oral gratification.
[2016-10-17] MEDS: METHYLNALTREXONE BROMIDE 12 MG/0.6 ML VIAL SQ SCH (21:16)
[2016-10-17] MEDS: LATANOPROST EYE DROP 0.005% 2.5 ML BOTTLE EACHEYE SCH (21:18)
[2016-10-17] MEDS: PRAVASTATIN SODIUM 20 MG TABLET GT SCH (21:18)
[2016-10-17 21:38] VITALS: BP 125/68
[2016-10-18] MEDS: ALBUTEROL HALF STRENGTH 1.25 MG/3 ML VIAL.NEB NEB SCH ×4 (01:34→20:20)
[2016-10-18] MEDS: CHLORHEXIDINE GLUCONATE 15 ML UDC MM SCH ×2 (05:14→17:34)
[2016-10-18] MEDS: FIBERSOURCE HN 1,000 ML BOTTLE GT PRN (05:14)
[2016-10-18 08:09] VITALS: BP 124/75
[2016-10-18] MEDS: ASPIRIN 81 MG TAB.CHEW GT SCH (09:23)
[2016-10-18] MEDS: RIFAXIMIN 550 MG TABLET PO SCH ×2 (09:24→16:33)
[2016-10-18] MEDS: HYDROGEN PEROXIDE 480 ML BOTTLE TP SCH ×2 (09:24→21:29)
[2016-10-18] MEDS: VITAMINS A AND D 56.7 GM TUBE TP SCH ×4 (09:24→21:29)
[2016-10-18] MEDS: POTASSIUM CHLORIDE 10 MEQ GT SCH (09:24)
[2016-10-18] MEDS: FINASTERIDE (5 MG) 5 MG TABLET GT SCH (09:24)
[2016-10-18] MEDS: PROSOURCE / PROSTAT (PYXIS) 30 ML UDC GT SCH (09:24)
[2016-10-18] MEDS: Z GUARD REMEDY 4 OZ OINT TP SCH ×2 (09:24→21:29)
[2016-10-18] MEDS: CHOLECALCIFEROL (VITAMIN D 3) 400 UNIT TABLET GT SCH ×2 (09:24→21:29)
[2016-10-18] MEDS: VALACYCLOVIR HCL 500 MG TABLET PEG SCH (09:24)
[2016-10-18] MEDS: DOXAZOSIN MESYLATE 8 MG GT SCH (09:24)
[2016-10-18] MEDS: PRUNE JUICE GT SCH (12:00)
[2016-10-18] MEDS: HYDROCODONE/APAP 7.5/325MG 1 EACH TABLET GT PRN ×2 (14:05→22:00)
[2016-10-18 20:26] VITALS: BP 118/69
[2016-10-18] MEDS: LATANOPROST EYE DROP 0.005% 2.5 ML BOTTLE EACHEYE SCH (21:29)
[2016-10-18] MEDS: PRAVASTATIN SODIUM 20 MG TABLET GT SCH (21:29)
[2016-10-18] MEDS: METHYLNALTREXONE BROMIDE 12 MG/0.6 ML VIAL SQ SCH (21:29)
[2016-10-19] MEDS: ALBUTEROL HALF STRENGTH 1.25 MG/3 ML VIAL.NEB NEB SCH ×4 (01:50→19:30)
[2016-10-19] MEDS: FIBERSOURCE HN 1,000 ML BOTTLE GT PRN (02:51)
[2016-10-19] MEDS: CHLORHEXIDINE GLUCONATE 15 ML UDC MM SCH ×2 (05:36→17:40)
[2016-10-19 07:56] VITALS: BP 128/80
[2016-10-19] MEDS: PROSOURCE / PROSTAT (PYXIS) 30 ML UDC GT SCH (08:45)
[2016-10-19] MEDS: VALACYCLOVIR HCL 500 MG TABLET PEG SCH (08:45)
[2016-10-19] MEDS: DOXAZOSIN MESYLATE 8 MG GT SCH (08:45)
[2016-10-19] MEDS: POTASSIUM CHLORIDE 10 MEQ GT SCH (08:45)
[2016-10-19] MEDS: ASPIRIN 81 MG TAB.CHEW GT SCH (08:45)
[2016-10-19] MEDS: CHOLECALCIFEROL (VITAMIN D 3) 400 UNIT TABLET GT SCH ×2 (08:45→20:34)
[2016-10-19] MEDS: FINASTERIDE (5 MG) 5 MG TABLET GT SCH (08:45)
[2016-10-19] MEDS: RIFAXIMIN 550 MG TABLET PO SCH ×2 (08:46→16:36)
[2016-10-19] MEDS: HYDROGEN PEROXIDE 480 ML BOTTLE TP SCH ×2 (09:00→20:34)
[2016-10-19] MEDS: VITAMINS A AND D 56.7 GM TUBE TP SCH ×4 (09:00→20:35)
[2016-10-19] MEDS: Z GUARD REMEDY 4 OZ OINT TP SCH ×2 (09:00→20:34)
[2016-10-19] MEDS: PRUNE JUICE GT SCH (12:37)
[2016-10-19 20:05] VITALS: BP 129/76
[2016-10-19] MEDS: METHYLNALTREXONE BROMIDE 12 MG/0.6 ML VIAL SQ SCH (20:34)
[2016-10-19] MEDS: LATANOPROST EYE DROP 0.005% 2.5 ML BOTTLE EACHEYE SCH (21:27)
[2016-10-19] MEDS: PRAVASTATIN SODIUM 20 MG TABLET GT SCH (21:27)
[2016-10-20] MEDS: ALBUTEROL HALF STRENGTH 1.25 MG/3 ML VIAL.NEB NEB SCH ×4 (01:30→19:30)
[2016-10-20] MEDS: CHLORHEXIDINE GLUCONATE 15 ML UDC MM SCH ×2 (05:21→17:26)
[2016-10-20] MEDS: FIBERSOURCE HN 1,000 ML BOTTLE GT PRN (06:19)
[2016-10-20 07:45] VITALS: BP 117/71
[2016-10-20] MEDS: DOXAZOSIN MESYLATE 8 MG GT SCH (08:53)
[2016-10-20] MEDS: ASPIRIN 81 MG TAB.CHEW GT SCH (08:53)
[2016-10-20] MEDS: FINASTERIDE (5 MG) 5 MG TABLET GT SCH (08:53)
[2016-10-20] MEDS: POTASSIUM CHLORIDE 10 MEQ GT SCH (08:53)
[2016-10-20] MEDS: PROSOURCE / PROSTAT (PYXIS) 30 ML UDC GT SCH (08:54)
[2016-10-20] MEDS: VALACYCLOVIR HCL 500 MG TABLET PEG SCH (08:54)
[2016-10-20] MEDS: RIFAXIMIN 550 MG TABLET PO SCH ×2 (08:54→17:05)
[2016-10-20] MEDS: CHOLECALCIFEROL (VITAMIN D 3) 400 UNIT TABLET GT SCH ×2 (08:54→21:51)
[2016-10-20] MEDS: VITAMINS A AND D 56.7 GM TUBE TP SCH ×4 (09:00→21:44)
[2016-10-20] MEDS: Z GUARD REMEDY 4 OZ OINT TP SCH ×2 (09:00→21:44)
[2016-10-20] MEDS: HYDROGEN PEROXIDE 480 ML BOTTLE TP SCH ×2 (09:00→21:44)
[2016-10-20] MEDS: PRUNE JUICE GT SCH (12:00)
[2016-10-20 19:38] VITALS: BP 128/82
[2016-10-20] MEDS: METHYLNALTREXONE BROMIDE 12 MG/0.6 ML VIAL SQ SCH (21:43)
[2016-10-20] MEDS: LATANOPROST EYE DROP 0.005% 2.5 ML BOTTLE EACHEYE SCH (21:45)
[2016-10-20] MEDS: PRAVASTATIN SODIUM 20 MG TABLET GT SCH (21:46)
[2016-10-21] MEDS: ALBUTEROL HALF STRENGTH 1.25 MG/3 ML VIAL.NEB NEB SCH ×4 (02:18→20:06)
[2016-10-21] MEDS: CHLORHEXIDINE GLUCONATE 15 ML UDC MM SCH ×2 (06:09→18:29)
[2016-10-21 07:53] VITALS: BP 117/71
[2016-10-21] MEDS: Z GUARD REMEDY 4 OZ OINT TP SCH ×2 (09:00→21:10)
[2016-10-21] MEDS: RIFAXIMIN 550 MG TABLET PO SCH ×2 (09:00→17:00)
[2016-10-21] MEDS: VITAMINS A AND D 56.7 GM TUBE TP SCH ×4 (09:00→21:10)
[2016-10-21] MEDS: PROSOURCE / PROSTAT (PYXIS) 30 ML UDC GT SCH (09:00)
[2016-10-21] MEDS: ASPIRIN 81 MG TAB.CHEW GT SCH (09:00)
[2016-10-21] MEDS: FINASTERIDE (5 MG) 5 MG TABLET GT SCH (09:00)
[2016-10-21] MEDS: DOXAZOSIN MESYLATE 8 MG GT SCH (09:00)
[2016-10-21] MEDS: VALACYCLOVIR HCL 500 MG TABLET PEG SCH (09:00)
[2016-10-21] MEDS: CHOLECALCIFEROL (VITAMIN D 3) 400 UNIT TABLET GT SCH ×2 (09:00→21:09)
[2016-10-21] MEDS: POTASSIUM CHLORIDE 10 MEQ GT SCH (09:00)
[2016-10-21] MEDS: HYDROGEN PEROXIDE 480 ML BOTTLE TP SCH ×2 (09:00→21:10)
[2016-10-21] MEDS: PRUNE JUICE GT SCH (12:04)
[2016-10-21] MEDS: MAGNESIUM HYDROXIDE 30 ML UDC GT PRN (16:41)
[2016-10-21 19:36] VITALS: BP 138/80
[2016-10-21] MEDS: METHYLNALTREXONE BROMIDE 12 MG/0.6 ML VIAL SQ SCH (21:09)
[2016-10-21] MEDS: LATANOPROST EYE DROP 0.005% 2.5 ML BOTTLE EACHEYE SCH (21:10)
[2016-10-21] MEDS: PRAVASTATIN SODIUM 20 MG TABLET GT SCH (21:10)
[2016-10-22] MEDS: ALBUTEROL HALF STRENGTH 1.25 MG/3 ML VIAL.NEB NEB SCH ×4 (01:24→20:14)
[2016-10-22] MEDS: CHLORHEXIDINE GLUCONATE 15 ML UDC MM SCH ×2 (05:35→17:22)
[2016-10-22] MEDS: FIBERSOURCE HN 1,000 ML BOTTLE GT PRN (05:59)
[2016-10-22 07:57] VITALS: BP 145/77
[2016-10-22] MEDS: ASPIRIN 81 MG TAB.CHEW GT SCH (08:07)
[2016-10-22] MEDS: DOXAZOSIN MESYLATE 8 MG GT SCH (08:07)
[2016-10-22] MEDS: RIFAXIMIN 550 MG TABLET PO SCH ×2 (08:07→17:22)
[2016-10-22] MEDS: POTASSIUM CHLORIDE 10 MEQ GT SCH (08:07)
[2016-10-22] MEDS: PROSOURCE / PROSTAT (PYXIS) 30 ML UDC GT SCH (08:07)
[2016-10-22] MEDS: VALACYCLOVIR HCL 500 MG TABLET PEG SCH (08:07)
[2016-10-22] MEDS: CHOLECALCIFEROL (VITAMIN D 3) 400 UNIT TABLET GT SCH ×2 (08:07→20:59)
[2016-10-22] MEDS: FINASTERIDE (5 MG) 5 MG TABLET GT SCH (08:07)
[2016-10-22] MEDS: VITAMINS A AND D 56.7 GM TUBE TP SCH ×4 (08:08→21:00)
[2016-10-22] MEDS: Z GUARD REMEDY 4 OZ OINT TP SCH ×2 (08:08→21:00)
[2016-10-22] MEDS: HYDROGEN PEROXIDE 480 ML BOTTLE TP SCH ×2 (08:08→21:00)
[2016-10-22] MEDS: PRUNE JUICE GT SCH (12:00)
[2016-10-22] MEDS: METHYLNALTREXONE BROMIDE 12 MG/0.6 ML VIAL SQ SCH (21:00)
[2016-10-22] MEDS: LATANOPROST EYE DROP 0.005% 2.5 ML BOTTLE EACHEYE SCH (21:00)
[2016-10-22] MEDS: PRAVASTATIN SODIUM 20 MG TABLET GT SCH (21:00)
[2016-10-22 21:34] VITALS: BP 122/79
[2016-10-23] MEDS: ALBUTEROL HALF STRENGTH 1.25 MG/3 ML VIAL.NEB NEB SCH ×4 (01:28→19:38)
[2016-10-23] MEDS: [UNRECOGNIZED DRUG - OTHER] GT PRN (05:19)
[2016-10-23] MEDS: FIBERSOURCE HN 1,000 ML BOTTLE GT PRN (05:19)
[2016-10-23] MEDS: CHLORHEXIDINE GLUCONATE 15 ML UDC MM SCH ×2 (05:19→17:18)
[2016-10-23 07:37] VITALS: BP 123/72
[2016-10-23] MEDS: FINASTERIDE (5 MG) 5 MG TABLET GT SCH (08:15)
[2016-10-23] MEDS: ASPIRIN 81 MG TAB.CHEW GT SCH (08:15)
[2016-10-23] MEDS: CHOLECALCIFEROL (VITAMIN D 3) 400 UNIT TABLET GT SCH ×2 (08:15→20:26)
[2016-10-23] MEDS: VALACYCLOVIR HCL 500 MG TABLET PEG SCH (08:15)
[2016-10-23] MEDS: POTASSIUM CHLORIDE 10 MEQ GT SCH (08:15)
[2016-10-23] MEDS: PROSOURCE / PROSTAT (PYXIS) 30 ML UDC GT SCH (08:15)
[2016-10-23] MEDS: DOXAZOSIN MESYLATE 8 MG GT SCH (08:15)
[2016-10-23] MEDS: RIFAXIMIN 550 MG TABLET PO SCH ×2 (08:15→17:18)
[2016-10-23] MEDS: Z GUARD REMEDY 4 OZ OINT TP SCH ×2 (09:00→20:26)
[2016-10-23] MEDS: VITAMINS A AND D 56.7 GM TUBE TP SCH ×4 (09:00→20:26)
[2016-10-23] MEDS: HYDROGEN PEROXIDE 480 ML BOTTLE TP SCH ×2 (09:00→20:26)
[2016-10-23] MEDS: PRUNE JUICE GT SCH (12:00)
[2016-10-23 20:23] VITALS: BP 115/71
[2016-10-23] MEDS: METHYLNALTREXONE BROMIDE 12 MG/0.6 ML VIAL SQ SCH (20:26)
[2016-10-23] MEDS: LATANOPROST EYE DROP 0.005% 2.5 ML BOTTLE EACHEYE SCH (21:13)
[2016-10-23] MEDS: PRAVASTATIN SODIUM 20 MG TABLET GT SCH (21:13)
[2016-10-24] MEDS: ALBUTEROL HALF STRENGTH 1.25 MG/3 ML VIAL.NEB NEB SCH ×4 (01:13→20:03)
[2016-10-24] MEDS: FIBERSOURCE HN 1,000 ML BOTTLE GT PRN (03:17)
[2016-10-24] MEDS: CHLORHEXIDINE GLUCONATE 15 ML UDC MM SCH ×2 (05:03→18:04)
[2016-10-24] MEDS: DOXAZOSIN MESYLATE 8 MG GT SCH (09:22)
[2016-10-24] MEDS: POTASSIUM CHLORIDE 10 MEQ GT SCH (09:22)
[2016-10-24] MEDS: ASPIRIN 81 MG TAB.CHEW GT SCH (09:22)
[2016-10-24] MEDS: CHOLECALCIFEROL (VITAMIN D 3) 400 UNIT TABLET GT SCH ×2 (09:23→20:30)
[2016-10-24] MEDS: FINASTERIDE (5 MG) 5 MG TABLET GT SCH (09:23)
[2016-10-24] MEDS: PROSOURCE / PROSTAT (PYXIS) 30 ML UDC GT SCH (09:23)
[2016-10-24] MEDS: RIFAXIMIN 550 MG TABLET PO SCH ×2 (09:24→17:00)
[2016-10-24] MEDS: VITAMINS A AND D 56.7 GM TUBE TP SCH ×4 (09:24→20:30)
[2016-10-24] MEDS: HYDROGEN PEROXIDE 480 ML BOTTLE TP SCH ×2 (09:24→20:30)
[2016-10-24] MEDS: VALACYCLOVIR HCL 500 MG TABLET PEG SCH (09:24)
[2016-10-24] MEDS: Z GUARD REMEDY 4 OZ OINT TP SCH ×2 (09:24→20:30)
[2016-10-24] MEDS: PRUNE JUICE GT SCH (12:00)
--- NOTE | 2016-10-24 13:00 | NUR ---
Resident's was observed feeding patient with half teaspoon of vanilla pudding. Explained to resident's in Thai, translated by another staff, that patient should only be getting no more than half a teaspoon, and not half a teaspoon every time she puts the spoon in his mouth. Explained to that patient is drooling and unable to swallow his saliva. reasoned out that patient unable to take the food she puts in his mouth anyway and it just drools down, however emphasized the importance of keeping the portion very very small as ordered by the doctor and total intake is no more than half a teaspoon.
[2016-10-24] MEDS: METHYLNALTREXONE BROMIDE 12 MG/0.6 ML VIAL SQ SCH (20:30)
[2016-10-24] MEDS: PRAVASTATIN SODIUM 20 MG TABLET GT SCH (21:11)
[2016-10-24] MEDS: LATANOPROST EYE DROP 0.005% 2.5 ML BOTTLE EACHEYE SCH (21:11)
[2016-10-24 21:27] VITALS: BP 133/83
[2016-10-25] MEDS: ALBUTEROL HALF STRENGTH 1.25 MG/3 ML VIAL.NEB NEB SCH ×4 (01:32→19:34)
[2016-10-25] MEDS: CHLORHEXIDINE GLUCONATE 15 ML UDC MM SCH ×2 (05:23→18:31)
[2016-10-25] MEDS: FIBERSOURCE HN 1,000 ML BOTTLE GT PRN (05:23)
[2016-10-25 08:01] VITALS: BP 124/73
[2016-10-25] MEDS: ASPIRIN 81 MG TAB.CHEW GT SCH (09:33)
[2016-10-25] MEDS: POTASSIUM CHLORIDE 10 MEQ GT SCH (09:33)
[2016-10-25] MEDS: DOXAZOSIN MESYLATE 8 MG GT SCH (09:33)
[2016-10-25] MEDS: Z GUARD REMEDY 4 OZ OINT TP SCH ×2 (09:34→21:27)
[2016-10-25] MEDS: HYDROGEN PEROXIDE 480 ML BOTTLE TP SCH ×2 (09:34→21:27)
[2016-10-25] MEDS: PROSOURCE / PROSTAT (PYXIS) 30 ML UDC GT SCH (09:34)
[2016-10-25] MEDS: RIFAXIMIN 550 MG TABLET PO SCH ×2 (09:34→17:07)
[2016-10-25] MEDS: CHOLECALCIFEROL (VITAMIN D 3) 400 UNIT TABLET GT SCH ×2 (09:34→21:27)
[2016-10-25] MEDS: VITAMINS A AND D 56.7 GM TUBE TP SCH ×4 (09:34→21:27)
[2016-10-25] MEDS: VALACYCLOVIR HCL 500 MG TABLET PEG SCH (09:34)
[2016-10-25] MEDS: FINASTERIDE (5 MG) 5 MG TABLET GT SCH (09:34)
[2016-10-25] MEDS: PRUNE JUICE GT SCH (12:00)
[2016-10-25 20:04] VITALS: BP 132/88
[2016-10-25] MEDS: PRAVASTATIN SODIUM 20 MG TABLET GT SCH (21:27)
[2016-10-25] MEDS: METHYLNALTREXONE BROMIDE 12 MG/0.6 ML VIAL SQ SCH (21:27)
[2016-10-25] MEDS: LATANOPROST EYE DROP 0.005% 2.5 ML BOTTLE EACHEYE SCH (21:27)
[2016-10-26] MEDS: ALBUTEROL HALF STRENGTH 1.25 MG/3 ML VIAL.NEB NEB SCH ×4 (00:57→19:30)
[2016-10-26] MEDS: CHLORHEXIDINE GLUCONATE 15 ML UDC MM SCH ×2 (06:10→18:55)
[2016-10-26 07:38] VITALS: BP 128/70
[2016-10-26] MEDS: ASPIRIN 81 MG TAB.CHEW GT SCH (08:47)
[2016-10-26] MEDS: VALACYCLOVIR HCL 500 MG TABLET PEG SCH (08:48)
[2016-10-26] MEDS: PROSOURCE / PROSTAT (PYXIS) 30 ML UDC GT SCH (08:48)
[2016-10-26] MEDS: RIFAXIMIN 550 MG TABLET PO SCH ×2 (08:48→16:54)
[2016-10-26] MEDS: POTASSIUM CHLORIDE 10 MEQ GT SCH (08:48)
[2016-10-26] MEDS: FINASTERIDE (5 MG) 5 MG TABLET GT SCH (08:48)
[2016-10-26] MEDS: DOXAZOSIN MESYLATE 8 MG GT SCH (08:48)
[2016-10-26] MEDS: CHOLECALCIFEROL (VITAMIN D 3) 400 UNIT TABLET GT SCH ×2 (08:48→21:05)
[2016-10-26] MEDS: HYDROGEN PEROXIDE 480 ML BOTTLE TP SCH ×2 (09:00→21:05)
[2016-10-26] MEDS: VITAMINS A AND D 56.7 GM TUBE TP SCH ×4 (09:00→21:05)
[2016-10-26] MEDS: Z GUARD REMEDY 4 OZ OINT TP SCH ×2 (09:00→21:05)
--- NOTE | 2016-10-26 11:29 | NUR ---
Spoke to resident's about her feeding resident excessive amounts of pudding. Informed her that resident should get no more than half a teaspoon. stated that she was never told by the doctor the amount of pudding that she should be giving her and that resident is unable to swallow it and that is why she keeps trying again. became upset, stating that she was tired of rumors spreading and that if that was the case she would have the staff feed resident. Charge nurse was informed. Also informed that hairdresser will be coming November 04, 2016 to cut resident's hair.
[2016-10-26] MEDS: PRUNE JUICE GT SCH (12:00)
[2016-10-26 19:41] VITALS: BP 136/76
[2016-10-26] MEDS: LATANOPROST EYE DROP 0.005% 2.5 ML BOTTLE EACHEYE SCH (21:05)
[2016-10-26] MEDS: METHYLNALTREXONE BROMIDE 12 MG/0.6 ML VIAL SQ SCH (21:05)
[2016-10-26] MEDS: PRAVASTATIN SODIUM 20 MG TABLET GT SCH (21:05)
[2016-10-26] MEDS: HYDROCODONE/APAP 7.5/325MG 1 EACH TABLET GT PRN (21:39)
[2016-10-27] MEDS: ALBUTEROL HALF STRENGTH 1.25 MG/3 ML VIAL.NEB NEB SCH ×4 (02:12→19:30)
[2016-10-27] MEDS: CHLORHEXIDINE GLUCONATE 15 ML UDC MM SCH ×2 (05:54→17:09)
[2016-10-27] MEDS: FIBERSOURCE HN 1,000 ML BOTTLE GT PRN (06:40)
[2016-10-27 08:00] VITALS: BP 127/87
[2016-10-27] MEDS: PROSOURCE / PROSTAT (PYXIS) 30 ML UDC GT SCH (08:34)
[2016-10-27] MEDS: DOXAZOSIN MESYLATE 8 MG GT SCH (08:34)
[2016-10-27] MEDS: ASPIRIN 81 MG TAB.CHEW GT SCH (08:34)
[2016-10-27] MEDS: POTASSIUM CHLORIDE 10 MEQ GT SCH (08:34)
[2016-10-27] MEDS: RIFAXIMIN 550 MG TABLET PO SCH ×2 (08:34→17:09)
[2016-10-27] MEDS: CHOLECALCIFEROL (VITAMIN D 3) 400 UNIT TABLET GT SCH ×2 (08:34→21:03)
[2016-10-27] MEDS: FINASTERIDE (5 MG) 5 MG TABLET GT SCH (08:34)
[2016-10-27] MEDS: VALACYCLOVIR HCL 500 MG TABLET PEG SCH (08:34)
[2016-10-27] MEDS: VITAMINS A AND D 56.7 GM TUBE TP SCH ×4 (09:00→21:03)
[2016-10-27] MEDS: HYDROGEN PEROXIDE 480 ML BOTTLE TP SCH ×2 (09:00→21:03)
[2016-10-27] MEDS: Z GUARD REMEDY 4 OZ OINT TP SCH ×2 (09:00→21:03)
--- NOTE | 2016-10-27 09:00 | NUR ---
Seen and examined by Dr Mejia with no new order
--- NOTE | 2016-10-27 09:30 | NUR ---
Seen and examined by Dr. Edwards with new order for Speech Therapy Evaluation noted and carried out. at bedside made aware of the new order.
[2016-10-27] MEDS: PRUNE JUICE GT SCH (12:00)
--- NOTE | 2016-10-27 14:44 | NUR ---
Informed in the morning that well head pumper Dr. Silverio was coming to see resident. Dr. Silverio saw resident and stated that resident's toes have fungus. Dr. Silverio cut resident's nails and no new order was given.
[2016-10-27] MEDS: HYDROCODONE/APAP 7.5/325MG 1 EACH TABLET GT PRN (15:30)
[2016-10-27 20:18] VITALS: BP 133/87
[2016-10-27] MEDS: PRAVASTATIN SODIUM 20 MG TABLET GT SCH (21:03)
[2016-10-27] MEDS: METHYLNALTREXONE BROMIDE 12 MG/0.6 ML VIAL SQ SCH (21:03)
[2016-10-27] MEDS: LATANOPROST EYE DROP 0.005% 2.5 ML BOTTLE EACHEYE SCH (21:03)
[2016-10-28] MEDS: ALBUTEROL HALF STRENGTH 1.25 MG/3 ML VIAL.NEB NEB SCH ×4 (02:15→19:30)
[2016-10-28] MEDS: CHLORHEXIDINE GLUCONATE 15 ML UDC MM SCH ×2 (05:42→17:32)
[2016-10-28] MEDS: FIBERSOURCE HN 1,000 ML BOTTLE GT PRN (06:19)
[2016-10-28 07:17] LABS: CALCIUM, SERUM 8.5 mg/dL (8.5-10.1); CREATININE 0.8 mg/dL (0.6-1.3); POTASSIUM 3.9 mmol/L (3.5-5.1)
[2016-10-28 07:44] VITALS: BP 122/84
[2016-10-28] MEDS: RIFAXIMIN 550 MG TABLET PO SCH ×2 (08:46→16:25)
[2016-10-28] MEDS: Z GUARD REMEDY 4 OZ OINT TP SCH ×2 (08:46→20:32)
[2016-10-28] MEDS: DOXAZOSIN MESYLATE 8 MG GT SCH (08:46)
[2016-10-28] MEDS: ASPIRIN 81 MG TAB.CHEW GT SCH (08:46)
[2016-10-28] MEDS: HYDROGEN PEROXIDE 480 ML BOTTLE TP SCH ×2 (08:46→20:32)
[2016-10-28] MEDS: FINASTERIDE (5 MG) 5 MG TABLET GT SCH (08:46)
[2016-10-28] MEDS: POTASSIUM CHLORIDE 10 MEQ GT SCH (08:46)
[2016-10-28] MEDS: VALACYCLOVIR HCL 500 MG TABLET PEG SCH (08:46)
[2016-10-28] MEDS: CHOLECALCIFEROL (VITAMIN D 3) 400 UNIT TABLET GT SCH ×2 (08:46→20:32)
[2016-10-28] MEDS: PROSOURCE / PROSTAT (PYXIS) 30 ML UDC GT SCH (08:46)
[2016-10-28] MEDS: VITAMINS A AND D 56.7 GM TUBE TP SCH ×4 (08:46→20:32)
[2016-10-28] MEDS: PRUNE JUICE GT SCH (12:00)
--- NOTE | 2016-10-28 13:30 | NUR ---
Seen and examined by Dr. Edwards, he was made aware that patient was seen and evaluated by ST and she recommended to keep patient NPO. Dr. Edwards discontinued the current order of applesauce. not at the bedside, will inform when she returns.
[2016-10-28] MEDS: METHYLNALTREXONE BROMIDE 12 MG/0.6 ML VIAL SQ SCH (20:32)
[2016-10-28 21:26] VITALS: BP 117/80
[2016-10-28] MEDS: PRAVASTATIN SODIUM 20 MG TABLET GT SCH (21:38)
[2016-10-28] MEDS: LATANOPROST EYE DROP 0.005% 2.5 ML BOTTLE EACHEYE SCH (21:38)
[2016-10-29] MEDS: ALBUTEROL HALF STRENGTH 1.25 MG/3 ML VIAL.NEB NEB SCH ×4 (01:52→19:43)
[2016-10-29] MEDS: CHLORHEXIDINE GLUCONATE 15 ML UDC MM SCH ×2 (05:33→18:53)
[2016-10-29] MEDS: FIBERSOURCE HN 1,000 ML BOTTLE GT PRN (06:31)
[2016-10-29 07:35] VITALS: BP 131/81
[2016-10-29] MEDS: POTASSIUM CHLORIDE 10 MEQ GT SCH (08:26)
[2016-10-29] MEDS: ASPIRIN 81 MG TAB.CHEW GT SCH (08:26)
[2016-10-29] MEDS: CHOLECALCIFEROL (VITAMIN D 3) 400 UNIT TABLET GT SCH ×2 (08:26→21:19)
[2016-10-29] MEDS: PROSOURCE / PROSTAT (PYXIS) 30 ML UDC GT SCH (08:26)
[2016-10-29] MEDS: FINASTERIDE (5 MG) 5 MG TABLET GT SCH (08:26)
[2016-10-29] MEDS: Z GUARD REMEDY 4 OZ OINT TP SCH ×2 (08:26→21:19)
[2016-10-29] MEDS: HYDROGEN PEROXIDE 480 ML BOTTLE TP SCH ×2 (08:26→21:19)
[2016-10-29] MEDS: VITAMINS A AND D 56.7 GM TUBE TP SCH ×4 (08:26→21:19)
[2016-10-29] MEDS: VALACYCLOVIR HCL 500 MG TABLET PEG SCH (08:26)
[2016-10-29] MEDS: RIFAXIMIN 550 MG TABLET PO SCH ×2 (08:26→17:00)
[2016-10-29] MEDS: DOXAZOSIN MESYLATE 8 MG GT SCH (08:26)
[2016-10-29] MEDS: PRUNE JUICE GT SCH (12:00)
[2016-10-29 21:00] VITALS: BP 134/70
[2016-10-29] MEDS: METHYLNALTREXONE BROMIDE 12 MG/0.6 ML VIAL SQ SCH (21:19)
[2016-10-29] MEDS: PRAVASTATIN SODIUM 20 MG TABLET GT SCH (21:19)
[2016-10-29] MEDS: LATANOPROST EYE DROP 0.005% 2.5 ML BOTTLE EACHEYE SCH (21:19)
[2016-10-29] MEDS: HYDROCODONE/APAP 7.5/325MG 1 EACH TABLET GT PRN (21:29)
[2016-10-30] MEDS: ALBUTEROL HALF STRENGTH 1.25 MG/3 ML VIAL.NEB NEB SCH ×4 (02:12→19:30)
[2016-10-30] MEDS: CHLORHEXIDINE GLUCONATE 15 ML UDC MM SCH ×2 (05:30→18:30)
[2016-10-30 07:42] VITALS: BP 115/68
[2016-10-30] MEDS ORDERED: TUBERCULIN,PURIF.PROT.DERIV. 5 TU/0.1 ML VIAL ID SCH (09:00)
[2016-10-30] MEDS: RIFAXIMIN 550 MG TABLET PO SCH ×2 (09:29→17:00)
[2016-10-30] MEDS: HYDROGEN PEROXIDE 480 ML BOTTLE TP SCH ×2 (09:29→20:58)
[2016-10-30] MEDS: ASPIRIN 81 MG TAB.CHEW GT SCH (09:29)
[2016-10-30] MEDS: Z GUARD REMEDY 4 OZ OINT TP SCH ×2 (09:29→20:58)
[2016-10-30] MEDS: DOXAZOSIN MESYLATE 8 MG GT SCH (09:29)
[2016-10-30] MEDS: VALACYCLOVIR HCL 500 MG TABLET PEG SCH (09:29)
[2016-10-30] MEDS: CHOLECALCIFEROL (VITAMIN D 3) 400 UNIT TABLET GT SCH ×2 (09:29→20:58)
[2016-10-30] MEDS: FINASTERIDE (5 MG) 5 MG TABLET GT SCH (09:29)
[2016-10-30] MEDS: PROSOURCE / PROSTAT (PYXIS) 30 ML UDC GT SCH (09:29)
[2016-10-30] MEDS: VITAMINS A AND D 56.7 GM TUBE TP SCH ×4 (09:29→20:58)
[2016-10-30] MEDS: POTASSIUM CHLORIDE 10 MEQ GT SCH (09:29)
[2016-10-30] MEDS: PRUNE JUICE GT SCH (12:00)
[2016-10-30 20:01] VITALS: BP 124/58
[2016-10-30] MEDS: METHYLNALTREXONE BROMIDE 12 MG/0.6 ML VIAL SQ SCH (20:58)
[2016-10-30] MEDS: PRAVASTATIN SODIUM 20 MG TABLET GT SCH (21:34)
[2016-10-30] MEDS: LATANOPROST EYE DROP 0.005% 2.5 ML BOTTLE EACHEYE SCH (21:34)
[2016-10-30] MEDS: HYDROCODONE/APAP 7.5/325MG 1 EACH TABLET GT PRN (22:49)
[2016-10-31] MEDS: ALBUTEROL HALF STRENGTH 1.25 MG/3 ML VIAL.NEB NEB SCH ×4 (00:54→19:19)
[2016-10-31] MEDS: CHLORHEXIDINE GLUCONATE 15 ML UDC MM SCH ×2 (06:07→17:39)
[2016-10-31] MEDS: FIBERSOURCE HN 1,000 ML BOTTLE GT PRN (06:07)
[2016-10-31 08:00] VITALS: BP 120/65
[2016-10-31] MEDS: POTASSIUM CHLORIDE 10 MEQ GT SCH (08:17)
[2016-10-31] MEDS: DOXAZOSIN MESYLATE 8 MG GT SCH (08:17)
[2016-10-31] MEDS: VALACYCLOVIR HCL 500 MG TABLET PEG SCH (08:17)
[2016-10-31] MEDS: FINASTERIDE (5 MG) 5 MG TABLET GT SCH (08:17)
[2016-10-31] MEDS: ASPIRIN 81 MG TAB.CHEW GT SCH (08:17)
[2016-10-31] MEDS: PROSOURCE / PROSTAT (PYXIS) 30 ML UDC GT SCH (08:17)
[2016-10-31] MEDS: CHOLECALCIFEROL (VITAMIN D 3) 400 UNIT TABLET GT SCH ×2 (08:17→21:31)
[2016-10-31] MEDS: RIFAXIMIN 550 MG TABLET PO SCH ×2 (08:17→17:39)
[2016-10-31] MEDS: Z GUARD REMEDY 4 OZ OINT TP SCH ×2 (10:45→21:31)
[2016-10-31] MEDS: HYDROGEN PEROXIDE 480 ML BOTTLE TP SCH ×2 (10:45→21:31)
[2016-10-31] MEDS: VITAMINS A AND D 56.7 GM TUBE TP SCH ×4 (10:45→21:32)
[2016-10-31] MEDS: PRUNE JUICE GT SCH (12:00)
[2016-10-31 20:17] VITALS: BP 135/66
[2016-10-31] MEDS: METHYLNALTREXONE BROMIDE 12 MG/0.6 ML VIAL SQ SCH (21:31)
[2016-10-31] MEDS: LATANOPROST EYE DROP 0.005% 2.5 ML BOTTLE EACHEYE SCH (21:32)
[2016-10-31] MEDS: PRAVASTATIN SODIUM 20 MG TABLET GT SCH (21:32)
[2016-11-01] MEDS: ALBUTEROL HALF STRENGTH 1.25 MG/3 ML VIAL.NEB NEB SCH ×4 (02:10→20:29)
[2016-11-01] MEDS: FIBERSOURCE HN 1,000 ML BOTTLE GT PRN (04:15)
[2016-11-01] MEDS: CHLORHEXIDINE GLUCONATE 15 ML UDC MM SCH ×2 (05:56→17:02)
[2016-11-01 08:00] VITALS: BP 116/68
[2016-11-01] MEDS: ASPIRIN 81 MG TAB.CHEW GT SCH (08:28)
[2016-11-01] MEDS: DOXAZOSIN MESYLATE 8 MG GT SCH (08:28)
[2016-11-01] MEDS: VALACYCLOVIR HCL 500 MG TABLET PEG SCH (08:29)
[2016-11-01] MEDS: FINASTERIDE (5 MG) 5 MG TABLET GT SCH (08:29)
[2016-11-01] MEDS: CHOLECALCIFEROL (VITAMIN D 3) 400 UNIT TABLET GT SCH ×2 (08:29→21:09)
[2016-11-01] MEDS: PROSOURCE / PROSTAT (PYXIS) 30 ML UDC GT SCH (08:29)
[2016-11-01] MEDS: POTASSIUM CHLORIDE 10 MEQ GT SCH (08:29)
[2016-11-01] MEDS: RIFAXIMIN 550 MG TABLET PO SCH ×2 (08:29→16:05)
[2016-11-01] MEDS: Z GUARD REMEDY 4 OZ OINT TP SCH ×2 (09:00→21:09)
[2016-11-01] MEDS: HYDROGEN PEROXIDE 480 ML BOTTLE TP SCH ×2 (09:00→21:09)
[2016-11-01] MEDS: VITAMINS A AND D 56.7 GM TUBE TP SCH ×4 (09:00→21:09)
[2016-11-01] MEDS: PRUNE JUICE GT SCH (11:49)
[2016-11-01 19:47] VITALS: BP 133/83
[2016-11-01] MEDS: LATANOPROST EYE DROP 0.005% 2.5 ML BOTTLE EACHEYE SCH (21:09)
[2016-11-01] MEDS: METHYLNALTREXONE BROMIDE 12 MG/0.6 ML VIAL SQ SCH (21:09)
[2016-11-01] MEDS: PRAVASTATIN SODIUM 20 MG TABLET GT SCH (21:10)
[2016-11-02] MEDS: ALBUTEROL HALF STRENGTH 1.25 MG/3 ML VIAL.NEB NEB SCH ×4 (01:30→20:26)
[2016-11-02] MEDS: CHLORHEXIDINE GLUCONATE 15 ML UDC MM SCH ×2 (05:50→17:22)
[2016-11-02 08:00] VITALS: BP 116/68
[2016-11-02] MEDS: DOXAZOSIN MESYLATE 8 MG GT SCH (08:48)
[2016-11-02] MEDS: ASPIRIN 81 MG TAB.CHEW GT SCH (08:48)
[2016-11-02] MEDS: FINASTERIDE (5 MG) 5 MG TABLET GT SCH (08:48)
[2016-11-02] MEDS: RIFAXIMIN 550 MG TABLET PO SCH ×2 (08:48→17:20)
[2016-11-02] MEDS: Z GUARD REMEDY 4 OZ OINT TP SCH ×2 (08:48→21:05)
[2016-11-02] MEDS: CHOLECALCIFEROL (VITAMIN D 3) 400 UNIT TABLET GT SCH ×2 (08:48→21:05)
[2016-11-02] MEDS: HYDROGEN PEROXIDE 480 ML BOTTLE TP SCH ×2 (08:48→21:05)
[2016-11-02] MEDS: VALACYCLOVIR HCL 500 MG TABLET PEG SCH (08:48)
[2016-11-02] MEDS: PROSOURCE / PROSTAT (PYXIS) 30 ML UDC GT SCH (08:48)
[2016-11-02] MEDS: POTASSIUM CHLORIDE 10 MEQ GT SCH (08:48)
[2016-11-02] MEDS: VITAMINS A AND D 56.7 GM TUBE TP SCH ×4 (08:49→21:05)
[2016-11-02] MEDS: PRUNE JUICE GT SCH (12:39)
[2016-11-02] MEDS: MAGNESIUM HYDROXIDE 30 ML UDC GT PRN (19:11)
[2016-11-02 19:47] VITALS: BP 145/81
[2016-11-02] MEDS: METHYLNALTREXONE BROMIDE 12 MG/0.6 ML VIAL SQ SCH (21:05)
[2016-11-02] MEDS: LATANOPROST EYE DROP 0.005% 2.5 ML BOTTLE EACHEYE SCH (21:05)
[2016-11-02] MEDS: PRAVASTATIN SODIUM 20 MG TABLET GT SCH (21:05)
[2016-11-03] MEDS: FIBERSOURCE HN 1,000 ML BOTTLE GT PRN (00:11)
[2016-11-03] MEDS: ALBUTEROL HALF STRENGTH 1.25 MG/3 ML VIAL.NEB NEB SCH ×4 (01:31→19:41)
[2016-11-03] MEDS: CHLORHEXIDINE GLUCONATE 15 ML UDC MM SCH ×2 (05:20→17:24)
[2016-11-03 08:00] VITALS: BP 105/63
[2016-11-03] MEDS: VALACYCLOVIR HCL 500 MG TABLET PEG SCH (08:04)
[2016-11-03] MEDS: PROSOURCE / PROSTAT (PYXIS) 30 ML UDC GT SCH (08:04)
[2016-11-03] MEDS: RIFAXIMIN 550 MG TABLET PO SCH ×2 (08:04→17:24)
[2016-11-03] MEDS: POTASSIUM CHLORIDE 10 MEQ GT SCH (08:04)
[2016-11-03] MEDS: FINASTERIDE (5 MG) 5 MG TABLET GT SCH (08:04)
[2016-11-03] MEDS: CHOLECALCIFEROL (VITAMIN D 3) 400 UNIT TABLET GT SCH ×2 (08:04→21:00)
[2016-11-03] MEDS: DOXAZOSIN MESYLATE 8 MG GT SCH (08:04)
[2016-11-03] MEDS: ASPIRIN 81 MG TAB.CHEW GT SCH (08:04)
--- NOTE | 2016-11-03 10:05 | NUR ---
Seen and examined by Dr Mejia with no new order
[2016-11-03] MEDS: Z GUARD REMEDY 4 OZ OINT TP SCH ×2 (10:30→21:00)
[2016-11-03] MEDS: HYDROGEN PEROXIDE 480 ML BOTTLE TP SCH ×2 (10:30→21:00)
[2016-11-03] MEDS: VITAMINS A AND D 56.7 GM TUBE TP SCH ×4 (10:30→21:00)
[2016-11-03] MEDS: PRUNE JUICE GT SCH (12:00)
[2016-11-03 20:27] VITALS: BP 125/79
[2016-11-03] MEDS: METHYLNALTREXONE BROMIDE 12 MG/0.6 ML VIAL SQ SCH (21:00)
[2016-11-03] MEDS: LATANOPROST EYE DROP 0.005% 2.5 ML BOTTLE EACHEYE SCH (22:52)
[2016-11-03] MEDS: PRAVASTATIN SODIUM 20 MG TABLET GT SCH (22:53)
[2016-11-04] MEDS: ALBUTEROL HALF STRENGTH 1.25 MG/3 ML VIAL.NEB NEB SCH ×4 (01:57→19:44)
[2016-11-04] MEDS: CHLORHEXIDINE GLUCONATE 15 ML UDC MM SCH ×2 (05:56→17:52)
[2016-11-04 08:30] VITALS: BP 114/68
[2016-11-04] MEDS: VITAMINS A AND D 56.7 GM TUBE TP SCH ×4 (08:55→21:06)
[2016-11-04] MEDS: POTASSIUM CHLORIDE 10 MEQ GT SCH (08:55)
[2016-11-04] MEDS: DOXAZOSIN MESYLATE 8 MG GT SCH (08:55)
[2016-11-04] MEDS: FINASTERIDE (5 MG) 5 MG TABLET GT SCH (08:55)
[2016-11-04] MEDS: HYDROGEN PEROXIDE 480 ML BOTTLE TP SCH ×2 (08:55→21:06)
[2016-11-04] MEDS: ASPIRIN 81 MG TAB.CHEW GT SCH (08:55)
[2016-11-04] MEDS: CHOLECALCIFEROL (VITAMIN D 3) 400 UNIT TABLET GT SCH ×2 (08:55→21:06)
[2016-11-04] MEDS: RIFAXIMIN 550 MG TABLET PO SCH ×2 (08:55→16:39)
[2016-11-04] MEDS: Z GUARD REMEDY 4 OZ OINT TP SCH ×2 (08:55→21:06)
[2016-11-04] MEDS: PROSOURCE / PROSTAT (PYXIS) 30 ML UDC GT SCH (08:55)
[2016-11-04] MEDS: VALACYCLOVIR HCL 500 MG TABLET PEG SCH (08:55)
[2016-11-04] MEDS: PRUNE JUICE GT SCH (12:43)
[2016-11-04 20:49] VITALS: BP 100/59
[2016-11-04] MEDS: METHYLNALTREXONE BROMIDE 12 MG/0.6 ML VIAL SQ SCH (21:06)
[2016-11-04] MEDS: LATANOPROST EYE DROP 0.005% 2.5 ML BOTTLE EACHEYE SCH (21:06)
[2016-11-04] MEDS: PRAVASTATIN SODIUM 20 MG TABLET GT SCH (21:06)
[2016-11-04] MEDS: FIBERSOURCE HN 1,000 ML BOTTLE GT PRN (21:30)
[2016-11-05] MEDS: ALBUTEROL HALF STRENGTH 1.25 MG/3 ML VIAL.NEB NEB SCH ×4 (02:06→19:58)
[2016-11-05] MEDS: CHLORHEXIDINE GLUCONATE 15 ML UDC MM SCH ×2 (05:08→17:11)
[2016-11-05 07:41] VITALS: BP 123/70
[2016-11-05] MEDS: MAGNESIUM HYDROXIDE 30 ML UDC GT PRN (08:31)
[2016-11-05] MEDS: FINASTERIDE (5 MG) 5 MG TABLET GT SCH (08:31)
[2016-11-05] MEDS: Z GUARD REMEDY 4 OZ OINT TP SCH ×2 (08:31→20:08)
[2016-11-05] MEDS: RIFAXIMIN 550 MG TABLET PO SCH ×2 (08:31→17:11)
[2016-11-05] MEDS: VALACYCLOVIR HCL 500 MG TABLET PEG SCH (08:31)
[2016-11-05] MEDS: DOXAZOSIN MESYLATE 8 MG GT SCH (08:31)
[2016-11-05] MEDS: PROSOURCE / PROSTAT (PYXIS) 30 ML UDC GT SCH (08:31)
[2016-11-05] MEDS: CHOLECALCIFEROL (VITAMIN D 3) 400 UNIT TABLET GT SCH ×2 (08:31→20:08)
[2016-11-05] MEDS: POTASSIUM CHLORIDE 10 MEQ GT SCH (08:31)
[2016-11-05] MEDS: VITAMINS A AND D 56.7 GM TUBE TP SCH ×4 (08:31→20:08)
[2016-11-05] MEDS: ASPIRIN 81 MG TAB.CHEW GT SCH (08:31)
[2016-11-05] MEDS: HYDROGEN PEROXIDE 480 ML BOTTLE TP SCH ×2 (09:00→20:08)
[2016-11-05] MEDS: PRUNE JUICE GT SCH (12:54)
[2016-11-05] MEDS: METHYLNALTREXONE BROMIDE 12 MG/0.6 ML VIAL SQ SCH (20:08)
[2016-11-05 20:54] VITALS: BP 128/77
[2016-11-05] MEDS: LATANOPROST EYE DROP 0.005% 2.5 ML BOTTLE EACHEYE SCH (22:26)
[2016-11-05] MEDS: PRAVASTATIN SODIUM 20 MG TABLET GT SCH (22:26)
[2016-11-05] MEDS: FIBERSOURCE HN 1,000 ML BOTTLE GT PRN (23:43)
[2016-11-06] MEDS: ALBUTEROL HALF STRENGTH 1.25 MG/3 ML VIAL.NEB NEB SCH ×4 (01:20→19:21)
[2016-11-06] MEDS: CHLORHEXIDINE GLUCONATE 15 ML UDC MM SCH ×2 (06:32→17:46)
[2016-11-06 07:38] VITALS: BP 109/76
[2016-11-06] MEDS: RIFAXIMIN 550 MG TABLET PO SCH ×2 (08:59→17:46)
[2016-11-06] MEDS: POTASSIUM CHLORIDE 10 MEQ GT SCH (08:59)
[2016-11-06] MEDS: PROSOURCE / PROSTAT (PYXIS) 30 ML UDC GT SCH (08:59)
[2016-11-06] MEDS: HYDROGEN PEROXIDE 480 ML BOTTLE TP SCH ×2 (08:59→21:24)
[2016-11-06] MEDS: DOXAZOSIN MESYLATE 8 MG GT SCH (08:59)
[2016-11-06] MEDS: VITAMINS A AND D 56.7 GM TUBE TP SCH ×4 (08:59→21:24)
[2016-11-06] MEDS: VALACYCLOVIR HCL 500 MG TABLET PEG SCH (08:59)
[2016-11-06] MEDS: FINASTERIDE (5 MG) 5 MG TABLET GT SCH (08:59)
[2016-11-06] MEDS: CHOLECALCIFEROL (VITAMIN D 3) 400 UNIT TABLET GT SCH ×2 (08:59→21:24)
[2016-11-06] MEDS: Z GUARD REMEDY 4 OZ OINT TP SCH ×2 (08:59→21:24)
[2016-11-06] MEDS: ASPIRIN 81 MG TAB.CHEW GT SCH (08:59)
[2016-11-06] MEDS: PRUNE JUICE GT SCH (12:22)
--- NOTE | 2016-11-06 12:22 | NUR ---
Seen and examined by Dr. Edwards, saw the redness in the R FA, no new order given. MD made aware that resident pulled GT reinserted back & check for placement by [address]. at the bedside.
[2016-11-06] MEDS: METHYLNALTREXONE BROMIDE 12 MG/0.6 ML VIAL SQ SCH (21:24)
[2016-11-06] MEDS: PRAVASTATIN SODIUM 20 MG TABLET GT SCH (21:25)
[2016-11-06] MEDS: LATANOPROST EYE DROP 0.005% 2.5 ML BOTTLE EACHEYE SCH (21:25)
[2016-11-06 21:30] VITALS: BP 126/72
[2016-11-06] MEDS: FIBERSOURCE HN 1,000 ML BOTTLE GT PRN (21:46)
[2016-11-07] MEDS: ALBUTEROL HALF STRENGTH 1.25 MG/3 ML VIAL.NEB NEB SCH ×4 (01:39→19:45)
[2016-11-07] MEDS: CHLORHEXIDINE GLUCONATE 15 ML UDC MM SCH ×2 (06:29→17:24)
[2016-11-07] MEDS: MAGNESIUM HYDROXIDE 30 ML UDC GT PRN (06:31)
[2016-11-07 07:30] VITALS: BP 112/73
[2016-11-07] MEDS: ASPIRIN 81 MG TAB.CHEW GT SCH (08:49)
[2016-11-07] MEDS: CHOLECALCIFEROL (VITAMIN D 3) 400 UNIT TABLET GT SCH ×2 (08:49→21:10)
[2016-11-07] MEDS: PROSOURCE / PROSTAT (PYXIS) 30 ML UDC GT SCH (08:49)
[2016-11-07] MEDS: FINASTERIDE (5 MG) 5 MG TABLET GT SCH (08:49)
[2016-11-07] MEDS: POTASSIUM CHLORIDE 10 MEQ GT SCH (08:49)
[2016-11-07] MEDS: DOXAZOSIN MESYLATE 8 MG GT SCH (08:49)
[2016-11-07] MEDS: RIFAXIMIN 550 MG TABLET PO SCH ×2 (08:49→17:24)
[2016-11-07] MEDS: HYDROGEN PEROXIDE 480 ML BOTTLE TP SCH ×2 (08:49→21:10)
[2016-11-07] MEDS: Z GUARD REMEDY 4 OZ OINT TP SCH ×2 (08:49→21:10)
[2016-11-07] MEDS: VITAMINS A AND D 56.7 GM TUBE TP SCH ×4 (08:49→21:10)
[2016-11-07] MEDS: VALACYCLOVIR HCL 500 MG TABLET PEG SCH (08:49)
[2016-11-07] MEDS: PRUNE JUICE GT SCH (12:00)
[2016-11-07] MEDS: HYDROCODONE/APAP 7.5/325MG 1 EACH TABLET GT PRN (17:25)
[2016-11-07 19:59] VITALS: BP 124/81
[2016-11-07] MEDS: FIBERSOURCE HN 1,000 ML BOTTLE GT PRN (21:10)
[2016-11-07] MEDS: LATANOPROST EYE DROP 0.005% 2.5 ML BOTTLE EACHEYE SCH (21:10)
[2016-11-07] MEDS: METHYLNALTREXONE BROMIDE 12 MG/0.6 ML VIAL SQ SCH (21:10)
[2016-11-07] MEDS: PRAVASTATIN SODIUM 20 MG TABLET GT SCH (21:10)
[2016-11-08] MEDS: ALBUTEROL HALF STRENGTH 1.25 MG/3 ML VIAL.NEB NEB SCH ×4 (02:12→19:30)
[2016-11-08] MEDS: CHLORHEXIDINE GLUCONATE 15 ML UDC MM SCH ×2 (05:40→17:04)
[2016-11-08 08:00] VITALS: BP 125/77
[2016-11-08] MEDS: POTASSIUM CHLORIDE 10 MEQ GT SCH (08:19)
[2016-11-08] MEDS: DOXAZOSIN MESYLATE 8 MG GT SCH (08:19)
[2016-11-08] MEDS: FINASTERIDE (5 MG) 5 MG TABLET GT SCH (08:19)
[2016-11-08] MEDS: VALACYCLOVIR HCL 500 MG TABLET PEG SCH (08:19)
[2016-11-08] MEDS: ASPIRIN 81 MG TAB.CHEW GT SCH (08:19)
[2016-11-08] MEDS: PROSOURCE / PROSTAT (PYXIS) 30 ML UDC GT SCH (08:19)
[2016-11-08] MEDS: RIFAXIMIN 550 MG TABLET PO SCH ×2 (08:19→17:04)
[2016-11-08] MEDS: CHOLECALCIFEROL (VITAMIN D 3) 400 UNIT TABLET GT SCH ×2 (09:00→21:11)
[2016-11-08] MEDS: Z GUARD REMEDY 4 OZ OINT TP SCH ×2 (09:00→21:12)
[2016-11-08] MEDS: VITAMINS A AND D 56.7 GM TUBE TP SCH ×4 (09:00→21:12)
[2016-11-08] MEDS: HYDROGEN PEROXIDE 480 ML BOTTLE TP SCH ×2 (09:00→21:12)
[2016-11-08] MEDS: PRUNE JUICE GT SCH (12:10)
[2016-11-08] MEDS: HYDROCODONE/APAP 7.5/325MG 1 EACH TABLET GT PRN (18:47)
[2016-11-08 20:02] VITALS: BP 126/76
[2016-11-08] MEDS: METHYLNALTREXONE BROMIDE 12 MG/0.6 ML VIAL SQ SCH (21:11)
[2016-11-08] MEDS: PRAVASTATIN SODIUM 20 MG TABLET GT SCH (21:12)
[2016-11-08] MEDS: LATANOPROST EYE DROP 0.005% 2.5 ML BOTTLE EACHEYE SCH (21:12)
[2016-11-09] MEDS: ALBUTEROL HALF STRENGTH 1.25 MG/3 ML VIAL.NEB NEB SCH ×4 (02:09→20:21)
[2016-11-09] MEDS: CHLORHEXIDINE GLUCONATE 15 ML UDC MM SCH ×2 (06:04→17:50)
[2016-11-09 08:00] VITALS: BP 112/66
[2016-11-09] MEDS: CHOLECALCIFEROL (VITAMIN D 3) 400 UNIT TABLET GT SCH ×2 (08:20→21:17)
[2016-11-09] MEDS: ASPIRIN 81 MG TAB.CHEW GT SCH (08:20)
[2016-11-09] MEDS: FINASTERIDE (5 MG) 5 MG TABLET GT SCH (08:20)
[2016-11-09] MEDS: POTASSIUM CHLORIDE 10 MEQ GT SCH (08:20)
[2016-11-09] MEDS: VALACYCLOVIR HCL 500 MG TABLET PEG SCH (08:20)
[2016-11-09] MEDS: RIFAXIMIN 550 MG TABLET PO SCH ×2 (08:20→16:26)
[2016-11-09] MEDS: DOXAZOSIN MESYLATE 8 MG GT SCH (08:20)
[2016-11-09] MEDS: PROSOURCE / PROSTAT (PYXIS) 30 ML UDC GT SCH (08:20)
[2016-11-09] MEDS: VITAMINS A AND D 56.7 GM TUBE TP SCH ×4 (11:15→21:17)
[2016-11-09] MEDS: Z GUARD REMEDY 4 OZ OINT TP SCH ×2 (11:15→21:17)
[2016-11-09] MEDS: HYDROGEN PEROXIDE 480 ML BOTTLE TP SCH ×2 (11:15→21:17)
[2016-11-09] MEDS: PRUNE JUICE GT SCH (12:00)
[2016-11-09] MEDS: FIBERSOURCE HN 1,000 ML BOTTLE GT PRN (16:27)
[2016-11-09] MEDS: MAGNESIUM HYDROXIDE 30 ML UDC GT PRN (16:43)
[2016-11-09 19:51] VITALS: BP 135/78
[2016-11-09] MEDS: METHYLNALTREXONE BROMIDE 12 MG/0.6 ML VIAL SQ SCH (21:17)
[2016-11-09] MEDS: LATANOPROST EYE DROP 0.005% 2.5 ML BOTTLE EACHEYE SCH (21:17)
[2016-11-09] MEDS: PRAVASTATIN SODIUM 20 MG TABLET GT SCH (21:18)
[2016-11-09] MEDS: HYDROCODONE/APAP 7.5/325MG 1 EACH TABLET GT PRN (22:33)
[2016-11-10] MEDS: ALBUTEROL HALF STRENGTH 1.25 MG/3 ML VIAL.NEB NEB SCH ×4 (01:46→20:12)
[2016-11-10] MEDS: CHLORHEXIDINE GLUCONATE 15 ML UDC MM SCH ×2 (06:04→17:28)
[2016-11-10 08:00] VITALS: BP 117/59
[2016-11-10] MEDS: CHOLECALCIFEROL (VITAMIN D 3) 400 UNIT TABLET GT SCH ×2 (08:05→21:07)
[2016-11-10] MEDS: POTASSIUM CHLORIDE 10 MEQ GT SCH (08:05)
[2016-11-10] MEDS: RIFAXIMIN 550 MG TABLET PO SCH ×2 (08:05→17:28)
[2016-11-10] MEDS: ASPIRIN 81 MG TAB.CHEW GT SCH (08:05)
[2016-11-10] MEDS: DOXAZOSIN MESYLATE 8 MG GT SCH (08:05)
[2016-11-10] MEDS: FINASTERIDE (5 MG) 5 MG TABLET GT SCH (08:05)
[2016-11-10] MEDS: VALACYCLOVIR HCL 500 MG TABLET PEG SCH (08:05)
[2016-11-10] MEDS: PROSOURCE / PROSTAT (PYXIS) 30 ML UDC GT SCH (08:05)
[2016-11-10] MEDS: Z GUARD REMEDY 4 OZ OINT TP SCH ×2 (10:00→21:07)
[2016-11-10] MEDS: HYDROGEN PEROXIDE 480 ML BOTTLE TP SCH ×2 (10:00→21:07)
[2016-11-10] MEDS: VITAMINS A AND D 56.7 GM TUBE TP SCH ×4 (10:00→21:07)
[2016-11-10] MEDS: PRUNE JUICE GT SCH (12:57)
[2016-11-10] MEDS: FIBERSOURCE HN 1,000 ML BOTTLE GT PRN (13:12)
[2016-11-10] MEDS: ACETAMINOPHEN 650 MG/20 ML UDC- FOR SA PATIENTS ONLY PO PRN (13:28)
[2016-11-10 19:44] VITALS: BP 135/75
[2016-11-10] MEDS: METHYLNALTREXONE BROMIDE 12 MG/0.6 ML VIAL SQ SCH (21:07)
[2016-11-10] MEDS: PRAVASTATIN SODIUM 20 MG TABLET GT SCH (21:08)
[2016-11-10] MEDS: LATANOPROST EYE DROP 0.005% 2.5 ML BOTTLE EACHEYE SCH (21:08)
[2016-11-11] MEDS: ALBUTEROL HALF STRENGTH 1.25 MG/3 ML VIAL.NEB NEB SCH ×4 (01:20→21:12)
[2016-11-11] MEDS: CHLORHEXIDINE GLUCONATE 15 ML UDC MM SCH ×2 (05:53→17:54)
[2016-11-11 08:05] VITALS: BP 127/81
[2016-11-11] MEDS: VALACYCLOVIR HCL 500 MG TABLET PEG SCH (08:06)
[2016-11-11] MEDS: Z GUARD REMEDY 4 OZ OINT TP SCH ×2 (08:06→21:36)
[2016-11-11] MEDS: FINASTERIDE (5 MG) 5 MG TABLET GT SCH (08:06)
[2016-11-11] MEDS: CHOLECALCIFEROL (VITAMIN D 3) 400 UNIT TABLET GT SCH ×2 (08:06→21:35)
[2016-11-11] MEDS: ASPIRIN 81 MG TAB.CHEW GT SCH (08:06)
[2016-11-11] MEDS: HYDROGEN PEROXIDE 480 ML BOTTLE TP SCH ×2 (08:06→21:36)
[2016-11-11] MEDS: RIFAXIMIN 550 MG TABLET PO SCH ×2 (08:06→17:54)
[2016-11-11] MEDS: POTASSIUM CHLORIDE 10 MEQ GT SCH (08:06)
[2016-11-11] MEDS: PROSOURCE / PROSTAT (PYXIS) 30 ML UDC GT SCH (08:06)
[2016-11-11] MEDS: DOXAZOSIN MESYLATE 8 MG GT SCH (08:06)
[2016-11-11] MEDS: VITAMINS A AND D 56.7 GM TUBE TP SCH ×4 (08:07→21:36)
[2016-11-11] MEDS: FIBERSOURCE HN 1,000 ML BOTTLE GT PRN (08:09)
[2016-11-11] MEDS: ACETAMINOPHEN 650 MG/20 ML UDC- FOR SA PATIENTS ONLY PO PRN (08:23)
--- NOTE | 2016-11-11 11:07 | NUR ---
Patient noted to have a low grade fever of 100.1 cooling measures provided. Resident made comfortable. Patient noted to have thick secretions coming out from his mouth in small amount, no foul odor noted. Rechecked temperature patient is afebrile 97.[address] Edwards made aware of patient assessment finding with no new order given. Mother at bedside notified.
[2016-11-11] MEDS: PRUNE JUICE GT SCH (12:23)
[2016-11-11 20:00] VITALS: BP 124/78
[2016-11-11] MEDS: METHYLNALTREXONE BROMIDE 12 MG/0.6 ML VIAL SQ SCH (21:35)
[2016-11-11] MEDS: PRAVASTATIN SODIUM 20 MG TABLET GT SCH (21:36)
[2016-11-11] MEDS: LATANOPROST EYE DROP 0.005% 2.5 ML BOTTLE EACHEYE SCH (21:36)
[2016-11-12] MEDS: ALBUTEROL HALF STRENGTH 1.25 MG/3 ML VIAL.NEB NEB SCH ×4 (01:46→19:57)
[2016-11-12] MEDS: CHLORHEXIDINE GLUCONATE 15 ML UDC MM SCH ×2 (05:20→18:04)
[2016-11-12] MEDS: FIBERSOURCE HN 1,000 ML BOTTLE GT PRN (05:20)
[2016-11-12 07:38] VITALS: BP 129/81
[2016-11-12] MEDS: RIFAXIMIN 550 MG TABLET PO SCH ×2 (09:40→17:00)
[2016-11-12] MEDS: FINASTERIDE (5 MG) 5 MG TABLET GT SCH (09:40)
[2016-11-12] MEDS: POTASSIUM CHLORIDE 10 MEQ GT SCH (09:40)
[2016-11-12] MEDS: PROSOURCE / PROSTAT (PYXIS) 30 ML UDC GT SCH (09:40)
[2016-11-12] MEDS: CHOLECALCIFEROL (VITAMIN D 3) 400 UNIT TABLET GT SCH ×2 (09:40→21:24)
[2016-11-12] MEDS: ASPIRIN 81 MG TAB.CHEW GT SCH (09:40)
[2016-11-12] MEDS: DOXAZOSIN MESYLATE 8 MG GT SCH (09:40)
[2016-11-12] MEDS: VALACYCLOVIR HCL 500 MG TABLET PEG SCH (09:40)
[2016-11-12] MEDS: Z GUARD REMEDY 4 OZ OINT TP SCH ×2 (09:41→21:24)
[2016-11-12] MEDS: HYDROGEN PEROXIDE 480 ML BOTTLE TP SCH ×2 (09:41→21:24)
[2016-11-12] MEDS: VITAMINS A AND D 56.7 GM TUBE TP SCH ×4 (09:41→21:24)
[2016-11-12] MEDS: HYDROCODONE/APAP 7.5/325MG 1 EACH TABLET GT PRN (10:11)
[2016-11-12] MEDS: PRUNE JUICE GT SCH (12:44)
[2016-11-12 20:34] VITALS: BP 138/84
[2016-11-12] MEDS: LATANOPROST EYE DROP 0.005% 2.5 ML BOTTLE EACHEYE SCH (21:24)
[2016-11-12] MEDS: PRAVASTATIN SODIUM 20 MG TABLET GT SCH (21:24)
[2016-11-12] MEDS: METHYLNALTREXONE BROMIDE 12 MG/0.6 ML VIAL SQ SCH (21:24)
[2016-11-13] MEDS: ALBUTEROL HALF STRENGTH 1.25 MG/3 ML VIAL.NEB NEB SCH ×4 (01:41→19:30)
[2016-11-13] MEDS: CHLORHEXIDINE GLUCONATE 15 ML UDC MM SCH ×2 (06:00→17:39)
[2016-11-13] MEDS: FIBERSOURCE HN 1,000 ML BOTTLE GT PRN (06:16)
[2016-11-13 08:00] VITALS: BP 138/92
[2016-11-13] MEDS: HYDROGEN PEROXIDE 480 ML BOTTLE TP SCH ×2 (08:57→21:19)
[2016-11-13] MEDS: DOXAZOSIN MESYLATE 8 MG GT SCH (08:57)
[2016-11-13] MEDS: POTASSIUM CHLORIDE 10 MEQ GT SCH (08:57)
[2016-11-13] MEDS: RIFAXIMIN 550 MG TABLET PO SCH ×2 (08:57→17:39)
[2016-11-13] MEDS: ASPIRIN 81 MG TAB.CHEW GT SCH (08:57)
[2016-11-13] MEDS: VITAMINS A AND D 56.7 GM TUBE TP SCH ×4 (08:57→21:19)
[2016-11-13] MEDS: FINASTERIDE (5 MG) 5 MG TABLET GT SCH (08:57)
[2016-11-13] MEDS: PROSOURCE / PROSTAT (PYXIS) 30 ML UDC GT SCH (08:57)
[2016-11-13] MEDS: VALACYCLOVIR HCL 500 MG TABLET PEG SCH (08:57)
[2016-11-13] MEDS: CHOLECALCIFEROL (VITAMIN D 3) 400 UNIT TABLET GT SCH ×2 (08:57→21:19)
[2016-11-13] MEDS: Z GUARD REMEDY 4 OZ OINT TP SCH ×2 (08:57→21:19)
[2016-11-13] MEDS: HYDROCODONE/APAP 7.5/325MG 1 EACH TABLET GT PRN (11:02)
[2016-11-13] MEDS: PRUNE JUICE GT SCH (11:02)
--- NOTE | 2016-11-13 14:00 | NUR ---
IDT meeting was held. Discussed plan of care. No new orders.
[2016-11-13 19:39] VITALS: BP 139/85
[2016-11-13] MEDS: METHYLNALTREXONE BROMIDE 12 MG/0.6 ML VIAL SQ SCH (21:19)
[2016-11-13] MEDS: LATANOPROST EYE DROP 0.005% 2.5 ML BOTTLE EACHEYE SCH (21:19)
[2016-11-13] MEDS: PRAVASTATIN SODIUM 20 MG TABLET GT SCH (21:20)
[2016-11-14] MEDS: ALBUTEROL HALF STRENGTH 1.25 MG/3 ML VIAL.NEB NEB SCH ×4 (02:12→20:10)
[2016-11-14] MEDS: FIBERSOURCE HN 1,000 ML BOTTLE GT PRN (05:05)
[2016-11-14] MEDS: CHLORHEXIDINE GLUCONATE 15 ML UDC MM SCH ×2 (05:05→17:21)
[2016-11-14 07:59] VITALS: BP 117/68
[2016-11-14] MEDS: FINASTERIDE (5 MG) 5 MG TABLET GT SCH (08:15)
[2016-11-14] MEDS: PROSOURCE / PROSTAT (PYXIS) 30 ML UDC GT SCH (08:15)
[2016-11-14] MEDS: DOXAZOSIN MESYLATE 8 MG GT SCH (08:15)
[2016-11-14] MEDS: POTASSIUM CHLORIDE 10 MEQ GT SCH (08:15)
[2016-11-14] MEDS: CHOLECALCIFEROL (VITAMIN D 3) 400 UNIT TABLET GT SCH ×2 (08:15→21:06)
[2016-11-14] MEDS: HYDROGEN PEROXIDE 480 ML BOTTLE TP SCH ×2 (08:15→21:06)
[2016-11-14] MEDS: VALACYCLOVIR HCL 500 MG TABLET PEG SCH (08:15)
[2016-11-14] MEDS: ASPIRIN 81 MG TAB.CHEW GT SCH (08:15)
[2016-11-14] MEDS: Z GUARD REMEDY 4 OZ OINT TP SCH ×2 (08:15→21:06)
[2016-11-14] MEDS: RIFAXIMIN 550 MG TABLET PO SCH ×2 (08:15→17:21)
[2016-11-14] MEDS: VITAMINS A AND D 56.7 GM TUBE TP SCH ×4 (08:16→21:06)
[2016-11-14] MEDS: PRUNE JUICE GT SCH (12:58)
[2016-11-14] MEDS: METHYLNALTREXONE BROMIDE 12 MG/0.6 ML VIAL SQ SCH (21:06)
[2016-11-14] MEDS: LATANOPROST EYE DROP 0.005% 2.5 ML BOTTLE EACHEYE SCH (21:07)
[2016-11-14] MEDS: PRAVASTATIN SODIUM 20 MG TABLET GT SCH (21:07)
[2016-11-15] MEDS: ALBUTEROL HALF STRENGTH 1.25 MG/3 ML VIAL.NEB NEB SCH ×4 (01:34→20:23)
[2016-11-15] MEDS: FIBERSOURCE HN 1,000 ML BOTTLE GT PRN (04:45)
[2016-11-15] MEDS: CHLORHEXIDINE GLUCONATE 15 ML UDC MM SCH ×2 (06:36→16:47)
[2016-11-15 07:56] VITALS: BP 132/80
[2016-11-15] MEDS: ASPIRIN 81 MG TAB.CHEW GT SCH (08:28)
[2016-11-15] MEDS: DOXAZOSIN MESYLATE 8 MG GT SCH (08:29)
[2016-11-15] MEDS: VALACYCLOVIR HCL 500 MG TABLET PEG SCH (08:30)
[2016-11-15] MEDS: CHOLECALCIFEROL (VITAMIN D 3) 400 UNIT TABLET GT SCH ×2 (08:30→20:53)
[2016-11-15] MEDS: POTASSIUM CHLORIDE 10 MEQ GT SCH (08:30)
[2016-11-15] MEDS: RIFAXIMIN 550 MG TABLET PO SCH ×2 (08:30→16:47)
[2016-11-15] MEDS: PROSOURCE / PROSTAT (PYXIS) 30 ML UDC GT SCH (08:32)
[2016-11-15] MEDS: VITAMINS A AND D 56.7 GM TUBE TP SCH ×4 (08:32→20:54)
[2016-11-15] MEDS: Z GUARD REMEDY 4 OZ OINT TP SCH ×2 (08:34→20:54)
[2016-11-15] MEDS: HYDROGEN PEROXIDE 480 ML BOTTLE TP SCH ×2 (08:34→20:54)
[2016-11-15] MEDS: FINASTERIDE (5 MG) 5 MG TABLET GT SCH (09:00)
[2016-11-15] MEDS: PRUNE JUICE GT SCH (14:00)
[2016-11-15] MEDS: HYDROCODONE/APAP 7.5/325MG 1 EACH TABLET GT PRN (18:23)
[2016-11-15 20:05] VITALS: BP 129/82
[2016-11-15] MEDS: METHYLNALTREXONE BROMIDE 12 MG/0.6 ML VIAL SQ SCH (20:53)
[2016-11-15] MEDS: LATANOPROST EYE DROP 0.005% 2.5 ML BOTTLE EACHEYE SCH (21:55)
[2016-11-15] MEDS: PRAVASTATIN SODIUM 20 MG TABLET GT SCH (21:56)
[2016-11-16] MEDS: ALBUTEROL HALF STRENGTH 1.25 MG/3 ML VIAL.NEB NEB SCH ×4 (01:43→20:26)
[2016-11-16] MEDS: CHLORHEXIDINE GLUCONATE 15 ML UDC MM SCH ×2 (05:33→17:13)
[2016-11-16 08:05] VITALS: BP 137/79
[2016-11-16] MEDS: HYDROGEN PEROXIDE 480 ML BOTTLE TP SCH ×2 (09:09→20:40)
[2016-11-16] MEDS: POTASSIUM CHLORIDE 10 MEQ GT SCH (09:09)
[2016-11-16] MEDS: FINASTERIDE (5 MG) 5 MG TABLET GT SCH (09:09)
[2016-11-16] MEDS: ASPIRIN 81 MG TAB.CHEW GT SCH (09:09)
[2016-11-16] MEDS: PROSOURCE / PROSTAT (PYXIS) 30 ML UDC GT SCH (09:09)
[2016-11-16] MEDS: VALACYCLOVIR HCL 500 MG TABLET PEG SCH (09:09)
[2016-11-16] MEDS: CHOLECALCIFEROL (VITAMIN D 3) 400 UNIT TABLET GT SCH ×2 (09:09→20:38)
[2016-11-16] MEDS: VITAMINS A AND D 56.7 GM TUBE TP SCH ×4 (09:09→20:40)
[2016-11-16] MEDS: Z GUARD REMEDY 4 OZ OINT TP SCH ×2 (09:09→20:40)
[2016-11-16] MEDS: DOXAZOSIN MESYLATE 8 MG GT SCH (09:09)
[2016-11-16] MEDS: RIFAXIMIN 550 MG TABLET PO SCH ×2 (09:09→17:13)
[2016-11-16] MEDS: PRUNE JUICE GT SCH (12:30)
[2016-11-16] MEDS: ACETAMINOPHEN 650 MG/20 ML UDC- FOR SA PATIENTS ONLY PO PRN (12:30)
[2016-11-16] MEDS: METHYLNALTREXONE BROMIDE 12 MG/0.6 ML VIAL SQ SCH (20:40)
[2016-11-16] MEDS: LATANOPROST EYE DROP 0.005% 2.5 ML BOTTLE EACHEYE SCH (21:05)
[2016-11-16] MEDS: PRAVASTATIN SODIUM 20 MG TABLET GT SCH (21:06)
[2016-11-17] MEDS: ALBUTEROL HALF STRENGTH 1.25 MG/3 ML VIAL.NEB NEB SCH ×4 (02:20→19:47)
[2016-11-17] MEDS: CHLORHEXIDINE GLUCONATE 15 ML UDC MM SCH ×2 (06:01→17:49)
[2016-11-17 08:00] VITALS: BP 118/76
[2016-11-17] MEDS: Z GUARD REMEDY 4 OZ OINT TP SCH ×2 (08:27→20:50)
[2016-11-17] MEDS: VALACYCLOVIR HCL 500 MG TABLET PEG SCH (08:27)
[2016-11-17] MEDS: PROSOURCE / PROSTAT (PYXIS) 30 ML UDC GT SCH (08:27)
[2016-11-17] MEDS: VITAMINS A AND D 56.7 GM TUBE TP SCH ×4 (08:27→20:50)
[2016-11-17] MEDS: POTASSIUM CHLORIDE 10 MEQ GT SCH (08:27)
[2016-11-17] MEDS: ASPIRIN 81 MG TAB.CHEW GT SCH (08:27)
[2016-11-17] MEDS: DOXAZOSIN MESYLATE 8 MG GT SCH (08:27)
[2016-11-17] MEDS: RIFAXIMIN 550 MG TABLET PO SCH ×2 (08:27→17:49)
[2016-11-17] MEDS: CHOLECALCIFEROL (VITAMIN D 3) 400 UNIT TABLET GT SCH ×2 (08:27→20:48)
[2016-11-17] MEDS: HYDROGEN PEROXIDE 480 ML BOTTLE TP SCH ×2 (08:27→20:50)
[2016-11-17] MEDS: FINASTERIDE (5 MG) 5 MG TABLET GT SCH (08:27)
[2016-11-17] MEDS: PRUNE JUICE GT SCH (12:24)
[2016-11-17 19:43] VITALS: BP 133/73
[2016-11-17] MEDS: METHYLNALTREXONE BROMIDE 12 MG/0.6 ML VIAL SQ SCH (20:48)
[2016-11-17] MEDS: PRAVASTATIN SODIUM 20 MG TABLET GT SCH (22:11)
[2016-11-17] MEDS: LATANOPROST EYE DROP 0.005% 2.5 ML BOTTLE EACHEYE SCH (22:11)
[2016-11-18] MEDS: ALBUTEROL HALF STRENGTH 1.25 MG/3 ML VIAL.NEB NEB SCH ×4 (01:43→20:01)
[2016-11-18] MEDS: CHLORHEXIDINE GLUCONATE 15 ML UDC MM SCH ×2 (05:44→17:02)
[2016-11-18 08:00] VITALS: BP 132/79
[2016-11-18] MEDS: VALACYCLOVIR HCL 500 MG TABLET PEG SCH (08:36)
[2016-11-18] MEDS: PROSOURCE / PROSTAT (PYXIS) 30 ML UDC GT SCH (08:36)
[2016-11-18] MEDS: FINASTERIDE (5 MG) 5 MG TABLET GT SCH (08:36)
[2016-11-18] MEDS: DOXAZOSIN MESYLATE 8 MG GT SCH (08:36)
[2016-11-18] MEDS: POTASSIUM CHLORIDE 10 MEQ GT SCH (08:36)
[2016-11-18] MEDS: ASPIRIN 81 MG TAB.CHEW GT SCH (08:36)
[2016-11-18] MEDS: CHOLECALCIFEROL (VITAMIN D 3) 400 UNIT TABLET GT SCH ×2 (08:36→21:14)
[2016-11-18] MEDS: VITAMINS A AND D 56.7 GM TUBE TP SCH ×4 (08:37→21:14)
[2016-11-18] MEDS: Z GUARD REMEDY 4 OZ OINT TP SCH ×2 (08:37→21:14)
[2016-11-18] MEDS: HYDROGEN PEROXIDE 480 ML BOTTLE TP SCH ×2 (08:37→21:14)
[2016-11-18] MEDS: RIFAXIMIN 550 MG TABLET PO SCH ×2 (08:37→17:02)
[2016-11-18] MEDS: PRUNE JUICE GT SCH (12:14)
[2016-11-18 19:47] VITALS: BP 134/65
[2016-11-18] MEDS: PRAVASTATIN SODIUM 20 MG TABLET GT SCH (21:14)
[2016-11-18] MEDS: METHYLNALTREXONE BROMIDE 12 MG/0.6 ML VIAL SQ SCH (21:14)
[2016-11-18] MEDS: LATANOPROST EYE DROP 0.005% 2.5 ML BOTTLE EACHEYE SCH (21:14)
[2016-11-18] MEDS: FIBERSOURCE HN 1,000 ML BOTTLE GT PRN (21:23)
[2016-11-19] MEDS: ALBUTEROL HALF STRENGTH 1.25 MG/3 ML VIAL.NEB NEB SCH ×4 (01:59→19:45)
[2016-11-19] MEDS: CHLORHEXIDINE GLUCONATE 15 ML UDC MM SCH ×2 (06:13→17:06)
[2016-11-19 08:00] VITALS: BP 106/67
[2016-11-19] MEDS: FINASTERIDE (5 MG) 5 MG TABLET GT SCH (08:25)
[2016-11-19] MEDS: CHOLECALCIFEROL (VITAMIN D 3) 400 UNIT TABLET GT SCH ×2 (08:25→21:18)
[2016-11-19] MEDS: RIFAXIMIN 550 MG TABLET PO SCH ×2 (08:25→16:51)
[2016-11-19] MEDS: Z GUARD REMEDY 4 OZ OINT TP SCH ×2 (08:25→21:18)
[2016-11-19] MEDS: POTASSIUM CHLORIDE 10 MEQ GT SCH (08:25)
[2016-11-19] MEDS: DOXAZOSIN MESYLATE 8 MG GT SCH (08:25)
[2016-11-19] MEDS: VALACYCLOVIR HCL 500 MG TABLET PEG SCH (08:25)
[2016-11-19] MEDS: VITAMINS A AND D 56.7 GM TUBE TP SCH ×4 (08:25→21:19)
[2016-11-19] MEDS: PROSOURCE / PROSTAT (PYXIS) 30 ML UDC GT SCH (08:25)
[2016-11-19] MEDS: ASPIRIN 81 MG TAB.CHEW GT SCH (08:25)
[2016-11-19] MEDS: HYDROGEN PEROXIDE 480 ML BOTTLE TP SCH ×2 (08:25→21:18)
[2016-11-19] MEDS: PRUNE JUICE GT SCH (11:06)
[2016-11-19] MEDS: FIBERSOURCE HN 1,000 ML BOTTLE GT PRN (18:03)
[2016-11-19 20:10] VITALS: BP 129/78
[2016-11-19] MEDS: METHYLNALTREXONE BROMIDE 12 MG/0.6 ML VIAL SQ SCH (21:18)
[2016-11-19] MEDS: PRAVASTATIN SODIUM 20 MG TABLET GT SCH (21:19)
[2016-11-19] MEDS: LATANOPROST EYE DROP 0.005% 2.5 ML BOTTLE EACHEYE SCH (21:19)
[2016-11-20] MEDS: ALBUTEROL HALF STRENGTH 1.25 MG/3 ML VIAL.NEB NEB SCH ×4 (01:31→19:21)
[2016-11-20] MEDS: CHLORHEXIDINE GLUCONATE 15 ML UDC MM SCH ×2 (06:17→17:20)
[2016-11-20] MEDS: MAGNESIUM HYDROXIDE 30 ML UDC GT PRN (06:26)
[2016-11-20 07:57] VITALS: BP 129/82
[2016-11-20] MEDS: VALACYCLOVIR HCL 500 MG TABLET PEG SCH (09:00)
[2016-11-20] MEDS: DOXAZOSIN MESYLATE 8 MG GT SCH (09:11)
[2016-11-20] MEDS: CHOLECALCIFEROL (VITAMIN D 3) 400 UNIT TABLET GT SCH ×2 (09:11→21:29)
[2016-11-20] MEDS: VITAMINS A AND D 56.7 GM TUBE TP SCH ×4 (09:11→21:30)
[2016-11-20] MEDS: Z GUARD REMEDY 4 OZ OINT TP SCH ×2 (09:11→21:30)
[2016-11-20] MEDS: RIFAXIMIN 550 MG TABLET PO SCH ×2 (09:11→17:20)
[2016-11-20] MEDS: HYDROGEN PEROXIDE 480 ML BOTTLE TP SCH ×2 (09:11→21:30)
[2016-11-20] MEDS: ASPIRIN 81 MG TAB.CHEW GT SCH (09:11)
[2016-11-20] MEDS: POTASSIUM CHLORIDE 10 MEQ GT SCH (09:11)
[2016-11-20] MEDS: FINASTERIDE (5 MG) 5 MG TABLET GT SCH (09:11)
[2016-11-20] MEDS: PROSOURCE / PROSTAT (PYXIS) 30 ML UDC GT SCH (09:11)
[2016-11-20] MEDS: PRUNE JUICE GT SCH (12:56)
--- NOTE | 2016-11-20 13:04 | NUR ---
Seen and examined by Dr. Edwards, reported that resident has increased amount of clear secretions. MD with new order to start him with Prednisone 20 mg. x 5 days. Resident's at the bedside and in agreement with plan of care. orders noted and carried out.
[2016-11-20] MEDS: FIBERSOURCE HN 1,000 ML BOTTLE GT PRN (17:20)
[2016-11-20 20:02] VITALS: BP 127/77
[2016-11-20] MEDS: METHYLNALTREXONE BROMIDE 12 MG/0.6 ML VIAL SQ SCH (21:29)
[2016-11-20] MEDS: PRAVASTATIN SODIUM 20 MG TABLET GT SCH (21:30)
[2016-11-20] MEDS: LATANOPROST EYE DROP 0.005% 2.5 ML BOTTLE EACHEYE SCH (21:30)
[2016-11-21] MEDS: ALBUTEROL HALF STRENGTH 1.25 MG/3 ML VIAL.NEB NEB SCH ×4 (01:38→20:03)
--- NOTE | 2016-11-21 03:00 | NUR ---
Rechecked patient temperature 98.2. Resident made comfortable. Water flushing given as ordered, tolerated-well. Addendum: 11/22/16 at 0706 by SUAD JIMENEZ RN Dated 11/22/16 at 0300
[2016-11-21] MEDS: CHLORHEXIDINE GLUCONATE 15 ML UDC MM SCH ×2 (06:07→18:15)
[2016-11-21 07:39] VITALS: BP 109/71
[2016-11-21] MEDS: predniSONE 20 MG TABLET GT SCH (09:00)
[2016-11-21] MEDS: DOXAZOSIN MESYLATE 8 MG GT SCH (09:41)
[2016-11-21] MEDS: POTASSIUM CHLORIDE 10 MEQ GT SCH (09:41)
[2016-11-21] MEDS: FINASTERIDE (5 MG) 5 MG TABLET GT SCH (09:42)
[2016-11-21] MEDS: PROSOURCE / PROSTAT (PYXIS) 30 ML UDC GT SCH (09:42)
[2016-11-21] MEDS: CHOLECALCIFEROL (VITAMIN D 3) 400 UNIT TABLET GT SCH ×2 (09:42→21:09)
[2016-11-21] MEDS: VALACYCLOVIR HCL 500 MG TABLET PEG SCH (09:43)
[2016-11-21] MEDS: RIFAXIMIN 550 MG TABLET PO SCH ×2 (09:43→17:02)
[2016-11-21] MEDS: ASPIRIN 81 MG TAB.CHEW GT SCH (09:48)
[2016-11-21] MEDS: Z GUARD REMEDY 4 OZ OINT TP SCH ×2 (09:49→21:09)
[2016-11-21] MEDS: HYDROGEN PEROXIDE 480 ML BOTTLE TP SCH ×2 (09:49→21:09)
[2016-11-21] MEDS: VITAMINS A AND D 56.7 GM TUBE TP SCH ×4 (09:57→21:09)
[2016-11-21] MEDS: PRUNE JUICE GT SCH (12:28)
[2016-11-21] MEDS: FIBERSOURCE HN 1,000 ML BOTTLE GT PRN (13:55)
[2016-11-21 20:09] VITALS: BP 125/83
--- NOTE | 2016-11-21 21:00 | NUR ---
During HOSTING ENGINEER vital signs round patient noted to have increased temp of 101.0 Further assessment made pt skin is warm to touch no abdominal distention noted. Bowel sounds present in all 4 quadrants. Cooling measures implemented. Extra blanket removed. Rechecked after half an hour temp 99.8 Acetaminophen given as ordered for mild pain and effective after 30 minutes of administration. Resident made comfortable. Dr. Edwards notified of patient change of condition with no new order given at this time. notified at the bedside. Will continue to monitor.
[2016-11-21] MEDS: LATANOPROST EYE DROP 0.005% 2.5 ML BOTTLE EACHEYE SCH (21:09)
[2016-11-21] MEDS: METHYLNALTREXONE BROMIDE 12 MG/0.6 ML VIAL SQ SCH (21:09)
[2016-11-21] MEDS: PRAVASTATIN SODIUM 20 MG TABLET GT SCH (21:09)
[2016-11-21] MEDS: ACETAMINOPHEN 650 MG/20 ML UDC- FOR SA PATIENTS ONLY PO PRN (21:10)
[2016-11-22] MEDS: ACETAMINOPHEN 650 MG/20 ML UDC- FOR SA PATIENTS ONLY PO PRN (01:05)
[2016-11-22] MEDS: ALBUTEROL HALF STRENGTH 1.25 MG/3 ML VIAL.NEB NEB SCH ×4 (01:27→20:08)
[2016-11-22] MEDS: CHLORHEXIDINE GLUCONATE 15 ML UDC MM SCH ×2 (05:45→17:40)
--- NOTE | 2016-11-22 06:30 | NUR ---
Reported by IN STORE BANKER that patient does not have urine output. Further assessment done no abdominal distention noted V/S taken and noted as BP 111/69, P 60, R 18, Temp 98.1. Bladder scan done with 396ml of retained urine. Dr. Edwards notified of patient change of condition. Awaiting call back from .
--- NOTE | 2016-11-22 07:53 | NUR ---
Received order from Dr. Edwards to do in and out catheter or try to prompt the patient void. Went to patient room noted patient diaper soaked and wet approximately 300-400ml of urine. No foul odor noted. Patient is calm and comfortable. Will endorse accordingly.
[2016-11-22 08:00] VITALS: BP 111/70
[2016-11-22] MEDS: VALACYCLOVIR HCL 500 MG TABLET PEG SCH (09:00)
[2016-11-22] MEDS: DOXAZOSIN MESYLATE 8 MG GT SCH (09:00)
[2016-11-22] MEDS: PROSOURCE / PROSTAT (PYXIS) 30 ML UDC GT SCH (09:00)
[2016-11-22] MEDS: CHOLECALCIFEROL (VITAMIN D 3) 400 UNIT TABLET GT SCH ×2 (09:00→20:41)
[2016-11-22] MEDS: FINASTERIDE (5 MG) 5 MG TABLET GT SCH (09:00)
[2016-11-22] MEDS: ASPIRIN 81 MG TAB.CHEW GT SCH (09:00)
[2016-11-22] MEDS: HYDROGEN PEROXIDE 480 ML BOTTLE TP SCH ×2 (09:00→20:41)
[2016-11-22] MEDS: predniSONE 20 MG TABLET GT SCH (09:00)
[2016-11-22] MEDS: POTASSIUM CHLORIDE 10 MEQ GT SCH (09:00)
[2016-11-22] MEDS: RIFAXIMIN 550 MG TABLET PO SCH ×2 (09:00→17:40)
[2016-11-22] MEDS: VITAMINS A AND D 56.7 GM TUBE TP SCH ×4 (09:01→20:41)
[2016-11-22] MEDS: Z GUARD REMEDY 4 OZ OINT TP SCH ×2 (09:01→20:41)
--- NOTE | 2016-11-22 11:40 | NUR ---
Seen and examined by Dr. Edwards, aware that resident developed fever last night, no fever at this time. Reported that resident urinated with adequate urine output. No new order given at this time. Resident's daughter at bedside MICROPHONE OPERATOR updated her of patient's current condition.
[2016-11-22] MEDS: PRUNE JUICE GT SCH (12:28)
[2016-11-22 19:54] VITALS: BP 125/76
[2016-11-22] MEDS: METHYLNALTREXONE BROMIDE 12 MG/0.6 ML VIAL SQ SCH (20:41)
[2016-11-22] MEDS: PRAVASTATIN SODIUM 20 MG TABLET GT SCH (22:00)
[2016-11-22] MEDS: LATANOPROST EYE DROP 0.005% 2.5 ML BOTTLE EACHEYE SCH (22:00)
[2016-11-23] MEDS: ALBUTEROL HALF STRENGTH 1.25 MG/3 ML VIAL.NEB NEB SCH ×4 (01:04→20:16)
[2016-11-23] MEDS: CHLORHEXIDINE GLUCONATE 15 ML UDC MM SCH ×2 (06:10→17:57)
[2016-11-23 06:53] LABS: BASOPHILS % (AUTO) 0.4 % (0.0-2.0); EOSINOPHILS # (AUTO) 0.1 /CMM (0.0-0.7); HEMATOCRIT 42 % (39-51); HEMOGLOBIN 14.1 g/dL (13.5-17.5); LYMPHOCYTES # (AUTO) 1.1 /CMM (0.8-4.8); LYMPHOCYTES % (AUTO) 20.8 % (20.0-44.0); MEAN CORPUSCULAR HEMOGLOBIN 33 PG (26.0-33.0); MEAN CORPUSCULAR HGB CONC 34 g/dl (31.0-36.0); MEAN CORPUSCULAR VOLUME 99 fL (80-96); MONOCYTES # (AUTO) 0.5 /CMM (0.1-1.30); MONOCYTES % (AUTO) 10.1 % (2.0-12.0); NEUTROPHILS # (AUTO) 3.6 /CMM (1.8-8.9); NEUTROPHILS % (AUTO) 67.7 % (43.0-81.0); PLATELET COUNT (AUTO) 85 /CMM (150-450); RDW COEFFICIENT OF VARIATION 13.4 (11.5-15.0); WHITE BLOOD COUNT (AUTO) 5.4 K/uL (4.3-11.0)
[2016-11-23 07:39] LABS: EOSINOPHILS % (MANUAL) 1 % (0-4); LYMPHOCYTES % (MANUAL) 24 % (16-48); MONOCYTES % (MANUAL) 6 % (0-11.0); NEUTROPHILS % (MANUAL) 69 (42-76)
[2016-11-23 07:53] VITALS: BP 123/74
[2016-11-23] MEDS: RIFAXIMIN 550 MG TABLET PO SCH ×2 (08:36→17:57)
[2016-11-23] MEDS: FINASTERIDE (5 MG) 5 MG TABLET GT SCH (08:36)
[2016-11-23] MEDS: predniSONE 20 MG TABLET GT SCH (08:36)
[2016-11-23] MEDS: PROSOURCE / PROSTAT (PYXIS) 30 ML UDC GT SCH (08:36)
[2016-11-23] MEDS: CHOLECALCIFEROL (VITAMIN D 3) 400 UNIT TABLET GT SCH ×2 (08:36→20:33)
[2016-11-23] MEDS: VALACYCLOVIR HCL 500 MG TABLET PEG SCH (08:36)
[2016-11-23] MEDS: DOXAZOSIN MESYLATE 8 MG GT SCH (08:36)
[2016-11-23] MEDS: HYDROGEN PEROXIDE 480 ML BOTTLE TP SCH ×2 (08:36→20:33)
[2016-11-23] MEDS: POTASSIUM CHLORIDE 10 MEQ GT SCH (08:36)
[2016-11-23] MEDS: ASPIRIN 81 MG TAB.CHEW GT SCH (08:36)
[2016-11-23] MEDS: Z GUARD REMEDY 4 OZ OINT TP SCH ×2 (08:36→20:33)
[2016-11-23] MEDS: VITAMINS A AND D 56.7 GM TUBE TP SCH ×4 (08:36→20:34)
[2016-11-23] MEDS: PRUNE JUICE GT SCH (12:38)
[2016-11-23 19:56] VITALS: BP 109/70
[2016-11-23] MEDS: METHYLNALTREXONE BROMIDE 12 MG/0.6 ML VIAL SQ SCH (20:33)
[2016-11-23] MEDS: PRAVASTATIN SODIUM 20 MG TABLET GT SCH (21:59)
[2016-11-23] MEDS: LATANOPROST EYE DROP 0.005% 2.5 ML BOTTLE EACHEYE SCH (21:59)
[2016-11-24] MEDS: ALBUTEROL HALF STRENGTH 1.25 MG/3 ML VIAL.NEB NEB SCH ×4 (02:27→19:30)
[2016-11-24] MEDS: CHLORHEXIDINE GLUCONATE 15 ML UDC MM SCH ×2 (05:43→17:50)
[2016-11-24 08:20] VITALS: BP 130/88
[2016-11-24] MEDS: POTASSIUM CHLORIDE 10 MEQ GT SCH (08:31)
[2016-11-24] MEDS: CHOLECALCIFEROL (VITAMIN D 3) 400 UNIT TABLET GT SCH ×2 (08:31→20:38)
[2016-11-24] MEDS: PROSOURCE / PROSTAT (PYXIS) 30 ML UDC GT SCH (08:31)
[2016-11-24] MEDS: DOXAZOSIN MESYLATE 8 MG GT SCH (08:31)
[2016-11-24] MEDS: predniSONE 20 MG TABLET GT SCH (08:31)
[2016-11-24] MEDS: RIFAXIMIN 550 MG TABLET PO SCH ×2 (08:31→17:48)
[2016-11-24] MEDS: ASPIRIN 81 MG TAB.CHEW GT SCH (08:31)
[2016-11-24] MEDS: FINASTERIDE (5 MG) 5 MG TABLET GT SCH (08:31)
[2016-11-24] MEDS: VALACYCLOVIR HCL 500 MG TABLET PEG SCH (08:31)
[2016-11-24] MEDS: HYDROGEN PEROXIDE 480 ML BOTTLE TP SCH ×2 (08:32→20:38)
[2016-11-24] MEDS: VITAMINS A AND D 56.7 GM TUBE TP SCH ×4 (08:32→20:39)
[2016-11-24] MEDS: Z GUARD REMEDY 4 OZ OINT TP SCH ×2 (08:32→20:39)
[2016-11-24] MEDS: PRUNE JUICE GT SCH (12:34)
[2016-11-24] MEDS: MAGNESIUM HYDROXIDE 30 ML UDC GT PRN (18:17)
[2016-11-24 19:19] VITALS: BP 118/76
[2016-11-24] MEDS: METHYLNALTREXONE BROMIDE 12 MG/0.6 ML VIAL SQ SCH (20:38)
[2016-11-24] MEDS: PRAVASTATIN SODIUM 20 MG TABLET GT SCH (22:00)
[2016-11-24] MEDS: LATANOPROST EYE DROP 0.005% 2.5 ML BOTTLE EACHEYE SCH (22:00)
[2016-11-25] MEDS: ALBUTEROL HALF STRENGTH 1.25 MG/3 ML VIAL.NEB NEB SCH ×4 (00:54→19:54)
[2016-11-25] MEDS: CHLORHEXIDINE GLUCONATE 15 ML UDC MM SCH ×2 (06:20→17:23)
[2016-11-25 08:05] VITALS: BP 132/79
[2016-11-25] MEDS: VITAMINS A AND D 56.7 GM TUBE TP SCH ×4 (08:40→21:24)
[2016-11-25] MEDS: DOXAZOSIN MESYLATE 8 MG GT SCH (08:40)
[2016-11-25] MEDS: PROSOURCE / PROSTAT (PYXIS) 30 ML UDC GT SCH (08:40)
[2016-11-25] MEDS: ASPIRIN 81 MG TAB.CHEW GT SCH (08:40)
[2016-11-25] MEDS: FINASTERIDE (5 MG) 5 MG TABLET GT SCH (08:40)
[2016-11-25] MEDS: CHOLECALCIFEROL (VITAMIN D 3) 400 UNIT TABLET GT SCH ×2 (08:40→21:23)
[2016-11-25] MEDS: VALACYCLOVIR HCL 500 MG TABLET PEG SCH (08:40)
[2016-11-25] MEDS: predniSONE 20 MG TABLET GT SCH (08:40)
[2016-11-25] MEDS: POTASSIUM CHLORIDE 10 MEQ GT SCH (08:40)
[2016-11-25] MEDS: HYDROGEN PEROXIDE 480 ML BOTTLE TP SCH ×2 (08:40→21:23)
[2016-11-25] MEDS: RIFAXIMIN 550 MG TABLET PO SCH ×2 (08:40→16:46)
[2016-11-25] MEDS: Z GUARD REMEDY 4 OZ OINT TP SCH ×2 (08:40→21:23)
[2016-11-25] MEDS: FIBERSOURCE HN 1,000 ML BOTTLE GT PRN (09:00)
[2016-11-25] MEDS: PRUNE JUICE GT SCH (12:09)
[2016-11-25 20:00] VITALS: BP 122/77
[2016-11-25] MEDS: METHYLNALTREXONE BROMIDE 12 MG/0.6 ML VIAL SQ SCH (21:23)
[2016-11-25] MEDS: LATANOPROST EYE DROP 0.005% 2.5 ML BOTTLE EACHEYE SCH (21:24)
[2016-11-25] MEDS: PRAVASTATIN SODIUM 20 MG TABLET GT SCH (21:24)
[2016-11-25] MEDS: MAGNESIUM HYDROXIDE 30 ML UDC GT PRN (23:15)
[2016-11-26] MEDS: ALBUTEROL HALF STRENGTH 1.25 MG/3 ML VIAL.NEB NEB SCH ×4 (00:48→19:30)
[2016-11-26] MEDS: CHLORHEXIDINE GLUCONATE 15 ML UDC MM SCH ×2 (05:17→17:51)
[2016-11-26] MEDS: [UNRECOGNIZED DRUG - OTHER] GT PRN (05:17)
[2016-11-26] MEDS: FIBERSOURCE HN 1,000 ML BOTTLE GT PRN (05:17)
[2016-11-26 08:00] VITALS: BP 115/65
[2016-11-26] MEDS: PROSOURCE / PROSTAT (PYXIS) 30 ML UDC GT SCH (09:01)
[2016-11-26] MEDS: VALACYCLOVIR HCL 500 MG TABLET PEG SCH (09:01)
[2016-11-26] MEDS: VITAMINS A AND D 56.7 GM TUBE TP SCH ×4 (09:01→21:03)
[2016-11-26] MEDS: Z GUARD REMEDY 4 OZ OINT TP SCH ×2 (09:01→21:03)
[2016-11-26] MEDS: FINASTERIDE (5 MG) 5 MG TABLET GT SCH (09:01)
[2016-11-26] MEDS: ASPIRIN 81 MG TAB.CHEW GT SCH (09:01)
[2016-11-26] MEDS: DOXAZOSIN MESYLATE 8 MG GT SCH (09:01)
[2016-11-26] MEDS: POTASSIUM CHLORIDE 10 MEQ GT SCH (09:01)
[2016-11-26] MEDS: HYDROGEN PEROXIDE 480 ML BOTTLE TP SCH ×2 (09:01→21:03)
[2016-11-26] MEDS: RIFAXIMIN 550 MG TABLET PO SCH ×2 (09:01→16:27)
[2016-11-26] MEDS: CHOLECALCIFEROL (VITAMIN D 3) 400 UNIT TABLET GT SCH ×2 (09:01→21:03)
[2016-11-26] MEDS: PRUNE JUICE GT SCH (12:00)
--- NOTE | 2016-11-26 14:30 | NUR ---
Seen by Dr Edwards with no new order.
--- NOTE | 2016-11-26 15:00 | NUR ---
Seen by Denise Pichardo NP with no new order.
[2016-11-26 20:30] VITALS: BP 129/78
[2016-11-26] MEDS: LATANOPROST EYE DROP 0.005% 2.5 ML BOTTLE EACHEYE SCH (21:03)
[2016-11-26] MEDS: METHYLNALTREXONE BROMIDE 12 MG/0.6 ML VIAL SQ SCH (21:03)
[2016-11-26] MEDS: PRAVASTATIN SODIUM 20 MG TABLET GT SCH (21:03)
[2016-11-27] MEDS: ALBUTEROL HALF STRENGTH 1.25 MG/3 ML VIAL.NEB NEB SCH ×4 (01:58→20:11)
[2016-11-27] MEDS: CHLORHEXIDINE GLUCONATE 15 ML UDC MM SCH ×2 (05:14→18:30)
[2016-11-27 07:40] VITALS: BP 109/75
[2016-11-27] MEDS: DOXAZOSIN MESYLATE 8 MG GT SCH (08:47)
[2016-11-27] MEDS: ASPIRIN 81 MG TAB.CHEW GT SCH (08:47)
[2016-11-27] MEDS: HYDROGEN PEROXIDE 480 ML BOTTLE TP SCH ×2 (08:47→20:23)
[2016-11-27] MEDS: CHOLECALCIFEROL (VITAMIN D 3) 400 UNIT TABLET GT SCH ×2 (08:47→20:23)
[2016-11-27] MEDS: VITAMINS A AND D 56.7 GM TUBE TP SCH ×4 (08:47→20:23)
[2016-11-27] MEDS: POTASSIUM CHLORIDE 10 MEQ GT SCH (08:47)
[2016-11-27] MEDS: VALACYCLOVIR HCL 500 MG TABLET PEG SCH (08:47)
[2016-11-27] MEDS: FINASTERIDE (5 MG) 5 MG TABLET GT SCH (08:47)
[2016-11-27] MEDS: Z GUARD REMEDY 4 OZ OINT TP SCH ×2 (08:47→20:23)
[2016-11-27] MEDS: RIFAXIMIN 550 MG TABLET PO SCH ×2 (08:47→16:51)
[2016-11-27] MEDS: PROSOURCE / PROSTAT (PYXIS) 30 ML UDC GT SCH (08:47)
[2016-11-27] MEDS: PRUNE JUICE GT SCH (12:57)
[2016-11-27 19:48] VITALS: BP 119/73
[2016-11-27] MEDS: METHYLNALTREXONE BROMIDE 12 MG/0.6 ML VIAL SQ SCH (20:23)
[2016-11-27] MEDS: LATANOPROST EYE DROP 0.005% 2.5 ML BOTTLE EACHEYE SCH (21:05)
[2016-11-27] MEDS: PRAVASTATIN SODIUM 20 MG TABLET GT SCH (21:05)
[2016-11-28] MEDS: ALBUTEROL HALF STRENGTH 1.25 MG/3 ML VIAL.NEB NEB SCH ×4 (01:36→19:57)
[2016-11-28] MEDS: CHLORHEXIDINE GLUCONATE 15 ML UDC MM SCH ×2 (05:26→17:41)
[2016-11-28] MEDS: FIBERSOURCE HN 1,000 ML BOTTLE GT PRN (05:27)
[2016-11-28 07:36] VITALS: BP 125/74
[2016-11-28] MEDS: HYDROGEN PEROXIDE 480 ML BOTTLE TP SCH ×2 (08:17→21:04)
[2016-11-28] MEDS: PROSOURCE / PROSTAT (PYXIS) 30 ML UDC GT SCH (08:17)
[2016-11-28] MEDS: VALACYCLOVIR HCL 500 MG TABLET PEG SCH (08:17)
[2016-11-28] MEDS: ASPIRIN 81 MG TAB.CHEW GT SCH (08:17)
[2016-11-28] MEDS: POTASSIUM CHLORIDE 10 MEQ GT SCH (08:17)
[2016-11-28] MEDS: FINASTERIDE (5 MG) 5 MG TABLET GT SCH (08:17)
[2016-11-28] MEDS: DOXAZOSIN MESYLATE 8 MG GT SCH (08:17)
[2016-11-28] MEDS: CHOLECALCIFEROL (VITAMIN D 3) 400 UNIT TABLET GT SCH ×2 (08:17→21:04)
[2016-11-28] MEDS: RIFAXIMIN 550 MG TABLET PO SCH ×2 (08:17→16:27)
[2016-11-28] MEDS: Z GUARD REMEDY 4 OZ OINT TP SCH ×2 (08:18→21:04)
[2016-11-28] MEDS: VITAMINS A AND D 56.7 GM TUBE TP SCH ×4 (08:18→21:04)
[2016-11-28] MEDS: PRUNE JUICE GT SCH (12:46)
--- NOTE | 2016-11-28 15:01 | NUR ---
Mrs. Lopez was the nurse if she can have pudding, informed Mrs. Lopez that the oral gratification order was discontinued and Dr. Edwards has not resumed the order. She insisted that it was resumed. Dr. Edwards made rounds and clarified if he gave an order for oral gratification, MD said to go ahead and resume previous order as before. Orders noted and carried out.
[2016-11-28] MEDS: HYDROCODONE/APAP 7.5/325MG 1 EACH TABLET GT PRN ×2 (15:16→21:37)
[2016-11-28 19:31] VITALS: BP 131/87
[2016-11-28] MEDS: SIMETHICONE SUSP 40 MG/0.6 ML BOTTLE GT PRN (21:04)
[2016-11-28] MEDS: LATANOPROST EYE DROP 0.005% 2.5 ML BOTTLE EACHEYE SCH (21:04)
[2016-11-28] MEDS: MAGNESIUM HYDROXIDE 30 ML UDC GT PRN (21:04)
[2016-11-28] MEDS: PRAVASTATIN SODIUM 20 MG TABLET GT SCH (21:04)
[2016-11-28] MEDS: METHYLNALTREXONE BROMIDE 12 MG/0.6 ML VIAL SQ SCH (21:04)
[2016-11-29] MEDS: ALBUTEROL HALF STRENGTH 1.25 MG/3 ML VIAL.NEB NEB SCH ×4 (01:51→19:51)
[2016-11-29] MEDS: FIBERSOURCE HN 1,000 ML BOTTLE GT PRN (05:09)
[2016-11-29] MEDS: CHLORHEXIDINE GLUCONATE 15 ML UDC MM SCH ×2 (05:09→17:44)
[2016-11-29] MEDS: [UNRECOGNIZED DRUG - OTHER] GT PRN (05:09)
[2016-11-29] MEDS: DOXAZOSIN MESYLATE 8 MG GT SCH (08:42)
[2016-11-29] MEDS: ASPIRIN 81 MG TAB.CHEW GT SCH (08:42)
[2016-11-29] MEDS: FINASTERIDE (5 MG) 5 MG TABLET GT SCH (08:42)
[2016-11-29] MEDS: POTASSIUM CHLORIDE 10 MEQ GT SCH (08:42)
[2016-11-29] MEDS: HYDROGEN PEROXIDE 480 ML BOTTLE TP SCH ×2 (08:43→21:18)
[2016-11-29] MEDS: PROSOURCE / PROSTAT (PYXIS) 30 ML UDC GT SCH (08:43)
[2016-11-29] MEDS: RIFAXIMIN 550 MG TABLET PO SCH ×2 (08:43→17:43)
[2016-11-29] MEDS: CHOLECALCIFEROL (VITAMIN D 3) 400 UNIT TABLET GT SCH ×2 (08:43→21:18)
[2016-11-29] MEDS: VALACYCLOVIR HCL 500 MG TABLET PEG SCH (08:43)
[2016-11-29] MEDS: VITAMINS A AND D 56.7 GM TUBE TP SCH ×4 (08:44→21:18)
[2016-11-29] MEDS: Z GUARD REMEDY 4 OZ OINT TP SCH ×2 (08:44→21:18)
[2016-11-29 08:45] VITALS: BP 115/67
[2016-11-29] MEDS: PRUNE JUICE GT SCH (12:00)
[2016-11-29 19:33] VITALS: BP 119/67
[2016-11-29] MEDS: LATANOPROST EYE DROP 0.005% 2.5 ML BOTTLE EACHEYE SCH (21:18)
[2016-11-29] MEDS: PRAVASTATIN SODIUM 20 MG TABLET GT SCH (21:18)
[2016-11-29] MEDS: METHYLNALTREXONE BROMIDE 12 MG/0.6 ML VIAL SQ SCH (21:18)
[2016-11-30] MEDS: FIBERSOURCE HN 1,000 ML BOTTLE GT PRN (00:09)
[2016-11-30] MEDS: ALBUTEROL HALF STRENGTH 1.25 MG/3 ML VIAL.NEB NEB SCH ×4 (01:48→19:30)
[2016-11-30] MEDS: CHLORHEXIDINE GLUCONATE 15 ML UDC MM SCH ×2 (05:26→17:31)
[2016-11-30 07:59] VITALS: BP 123/89
[2016-11-30] MEDS: PROSOURCE / PROSTAT (PYXIS) 30 ML UDC GT SCH (08:37)
[2016-11-30] MEDS: POTASSIUM CHLORIDE 10 MEQ GT SCH (08:37)
[2016-11-30] MEDS: ASPIRIN 81 MG TAB.CHEW GT SCH (08:37)
[2016-11-30] MEDS: DOXAZOSIN MESYLATE 8 MG GT SCH (08:37)
[2016-11-30] MEDS: FINASTERIDE (5 MG) 5 MG TABLET GT SCH (08:37)
[2016-11-30] MEDS: RIFAXIMIN 550 MG TABLET PO SCH ×2 (08:38→17:31)
[2016-11-30] MEDS: CHOLECALCIFEROL (VITAMIN D 3) 400 UNIT TABLET GT SCH ×2 (08:38→21:00)
[2016-11-30] MEDS: VALACYCLOVIR HCL 500 MG TABLET PEG SCH (08:38)
[2016-11-30] MEDS: HYDROGEN PEROXIDE 480 ML BOTTLE TP SCH ×2 (09:00→21:00)
[2016-11-30] MEDS: VITAMINS A AND D 56.7 GM TUBE TP SCH ×4 (09:00→21:01)
[2016-11-30] MEDS: Z GUARD REMEDY 4 OZ OINT TP SCH ×2 (09:00→21:01)
[2016-11-30] MEDS: PRUNE JUICE GT SCH (12:00)
[2016-11-30 19:47] VITALS: BP 120/79
[2016-11-30] MEDS: METHYLNALTREXONE BROMIDE 12 MG/0.6 ML VIAL SQ SCH (21:00)
[2016-11-30] MEDS: LATANOPROST EYE DROP 0.005% 2.5 ML BOTTLE EACHEYE SCH (21:01)
[2016-11-30] MEDS: PRAVASTATIN SODIUM 20 MG TABLET GT SCH (21:01)
[2016-12-01] MEDS: FIBERSOURCE HN 1,000 ML BOTTLE GT PRN (01:32)
[2016-12-01] MEDS: ALBUTEROL HALF STRENGTH 1.25 MG/3 ML VIAL.NEB NEB SCH ×4 (02:06→19:30)
[2016-12-01] MEDS: CHLORHEXIDINE GLUCONATE 15 ML UDC MM SCH ×2 (05:41→17:49)
[2016-12-01 07:56] VITALS: BP 124/72
[2016-12-01] MEDS: ASPIRIN 81 MG TAB.CHEW GT SCH (08:31)
[2016-12-01] MEDS: PROSOURCE / PROSTAT (PYXIS) 30 ML UDC GT SCH (08:31)
[2016-12-01] MEDS: POTASSIUM CHLORIDE 10 MEQ GT SCH (08:31)
[2016-12-01] MEDS: DOXAZOSIN MESYLATE 8 MG GT SCH (08:31)
[2016-12-01] MEDS: FINASTERIDE (5 MG) 5 MG TABLET GT SCH (08:31)
[2016-12-01] MEDS: RIFAXIMIN 550 MG TABLET PO SCH ×2 (08:32→17:49)
[2016-12-01] MEDS: Z GUARD REMEDY 4 OZ OINT TP SCH ×2 (08:32→21:08)
[2016-12-01] MEDS: CHOLECALCIFEROL (VITAMIN D 3) 400 UNIT TABLET GT SCH ×2 (08:32→21:08)
[2016-12-01] MEDS: HYDROGEN PEROXIDE 480 ML BOTTLE TP SCH ×2 (08:32→21:08)
[2016-12-01] MEDS: VALACYCLOVIR HCL 500 MG TABLET PEG SCH (08:32)
[2016-12-01] MEDS: VITAMINS A AND D 56.7 GM TUBE TP SCH ×4 (08:32→21:08)
--- NOTE | 2016-12-01 09:40 | NUR ---
Seen by Dr Mejia with no new order.
[2016-12-01] MEDS: PRUNE JUICE GT SCH (12:46)
[2016-12-01 19:51] VITALS: BP 125/74
[2016-12-01] MEDS: METHYLNALTREXONE BROMIDE 12 MG/0.6 ML VIAL SQ SCH (21:08)
[2016-12-01] MEDS: LATANOPROST EYE DROP 0.005% 2.5 ML BOTTLE EACHEYE SCH (21:08)
[2016-12-01] MEDS: PRAVASTATIN SODIUM 20 MG TABLET GT SCH (21:08)
[2016-12-02] MEDS: ALBUTEROL HALF STRENGTH 1.25 MG/3 ML VIAL.NEB NEB SCH ×4 (02:09→20:13)
[2016-12-02] MEDS: CHLORHEXIDINE GLUCONATE 15 ML UDC MM SCH ×2 (05:44→18:35)
[2016-12-02] MEDS: FIBERSOURCE HN 1,000 ML BOTTLE GT PRN (06:09)
[2016-12-02 07:55] VITALS: BP 123/76
[2016-12-02] MEDS: HYDROGEN PEROXIDE 480 ML BOTTLE TP SCH ×2 (09:00→21:20)
[2016-12-02] MEDS: Z GUARD REMEDY 4 OZ OINT TP SCH ×2 (09:00→21:20)
[2016-12-02] MEDS: ASPIRIN 81 MG TAB.CHEW GT SCH (09:00)
[2016-12-02] MEDS: VITAMINS A AND D 56.7 GM TUBE TP SCH ×4 (09:00→21:20)
[2016-12-02] MEDS: POTASSIUM CHLORIDE 10 MEQ GT SCH (09:00)
[2016-12-02] MEDS: FINASTERIDE (5 MG) 5 MG TABLET GT SCH (09:00)
[2016-12-02] MEDS: DOXAZOSIN MESYLATE 8 MG GT SCH (09:00)
[2016-12-02] MEDS: RIFAXIMIN 550 MG TABLET PO SCH ×2 (09:00→17:19)
[2016-12-02] MEDS: VALACYCLOVIR HCL 500 MG TABLET PEG SCH (09:00)
[2016-12-02] MEDS: PROSOURCE / PROSTAT (PYXIS) 30 ML UDC GT SCH (09:00)
[2016-12-02] MEDS: CHOLECALCIFEROL (VITAMIN D 3) 400 UNIT TABLET GT SCH ×2 (09:00→21:20)
--- NOTE | 2016-12-02 10:10 | NUR ---
AURA Parish and clinical nursing instructor had a meeting with the resident's . It was discussed that resident's has to constantly be on top of the nurses/TRANSIT DEPARTMENT CLERK's and tell them how to do their job correctly. Jem stated a TRANSIT DEPARTMENT CLERK came to him to discuss the way in which resident's spoke to her. He stated that there was also an issue in which resident's told the charge nurse that no care was to be provided to her since she was not going to be arriving in the morning due to car issue. CNO informed her that moving forward, the nurses/senior physical therapist's will not wait until she arrives and will provide the care whether she is there or not. mine engineering manager Valeria Voss stated that she can come directly to her if she has any issues with the way the care is being provided to the resident. AURA also stated that moving forward, resident's is not allowed to be in the room while care is being provided to her . He stated that if her behavior does not change within thirty days, he will provide a notice and will be initiating a transfer to [facility] (which is where the resident came from). CARLIO also addressed that he has heard complaints about throwing things on floor when she is not happy with something and denied this. AURA Parish and clinical nursing instructor Valeria Voss informed charge nurse that going forward, is not to be in the room when care is provided. will to go clinical nursing instructor with any issues regarding the nurses/TRANSIT DEPARTMENT CLERK's.
[2016-12-02] MEDS: PRUNE JUICE GT SCH (12:00)
--- NOTE | 2016-12-02 12:13 | NUR ---
Resident's attended family support group today and concerns related to care were explored. Resident's was vocal and participated during the group meeting. Concerns to be addressed with director of nursing Valeria Voss.
--- NOTE | 2016-12-02 13:00 | NUR ---
Seen and examined by Dr. Edwards, new order given to start patient on Provingil 100mg daily for narcolepsy. Order faxed to pharmacy. [facility] stated they need to call Dr. Edwards to get auth for Provigil.
--- NOTE | 2016-12-02 17:50 | NUR ---
Seen and examined by Denise Pichardo NP for Dr. Mejia, correspondence clerk, NNO given.
[2016-12-02 20:29] VITALS: BP 124/72
[2016-12-02] MEDS: METHYLNALTREXONE BROMIDE 12 MG/0.6 ML VIAL SQ SCH (21:20)
[2016-12-02] MEDS: LATANOPROST EYE DROP 0.005% 2.5 ML BOTTLE EACHEYE SCH (21:20)
[2016-12-02] MEDS: PRAVASTATIN SODIUM 20 MG TABLET GT SCH (21:21)
[2016-12-02] MEDS: ACETAMINOPHEN 650 MG/20 ML UDC- FOR SA PATIENTS ONLY PO PRN (22:16)
[2016-12-03] MEDS: ALBUTEROL HALF STRENGTH 1.25 MG/3 ML VIAL.NEB NEB SCH ×5 (02:24→20:18)
[2016-12-03] MEDS: CHLORHEXIDINE GLUCONATE 15 ML UDC MM SCH ×2 (06:03→18:18)
[2016-12-03] MEDS: FIBERSOURCE HN 1,000 ML BOTTLE GT PRN (06:22)
[2016-12-03 07:51] VITALS: BP 134/72
[2016-12-03] MEDS: FINASTERIDE (5 MG) 5 MG TABLET GT SCH (08:14)
[2016-12-03] MEDS: PROSOURCE / PROSTAT (PYXIS) 30 ML UDC GT SCH (08:14)
[2016-12-03] MEDS: CHOLECALCIFEROL (VITAMIN D 3) 400 UNIT TABLET GT SCH ×2 (08:14→20:10)
[2016-12-03] MEDS: ASPIRIN 81 MG TAB.CHEW GT SCH (08:14)
[2016-12-03] MEDS: HYDROGEN PEROXIDE 480 ML BOTTLE TP SCH ×2 (08:14→20:10)
[2016-12-03] MEDS: POTASSIUM CHLORIDE 10 MEQ GT SCH (08:14)
[2016-12-03] MEDS: VALACYCLOVIR HCL 500 MG TABLET PEG SCH (08:14)
[2016-12-03] MEDS: RIFAXIMIN 550 MG TABLET PO SCH ×2 (08:14→17:00)
[2016-12-03] MEDS: DOXAZOSIN MESYLATE 8 MG GT SCH (08:14)
[2016-12-03] MEDS: Z GUARD REMEDY 4 OZ OINT TP SCH ×2 (08:15→20:10)
[2016-12-03] MEDS: VITAMINS A AND D 56.7 GM TUBE TP SCH ×4 (08:15→20:10)
[2016-12-03] MEDS ORDERED: MODAFINIL 100 MG TABLET GT SCH (09:00)
[2016-12-03] MEDS: PRUNE JUICE GT SCH (12:13)
[2016-12-03] MEDS: METHYLNALTREXONE BROMIDE 12 MG/0.6 ML VIAL SQ SCH (20:10)
[2016-12-03] MEDS: PRAVASTATIN SODIUM 20 MG TABLET GT SCH (21:08)
[2016-12-03] MEDS: LATANOPROST EYE DROP 0.005% 2.5 ML BOTTLE EACHEYE SCH (21:08)
[2016-12-03 21:17] VITALS: BP 106/64
[2016-12-04] MEDS: ALBUTEROL HALF STRENGTH 1.25 MG/3 ML VIAL.NEB NEB SCH ×4 (01:34→19:17)
[2016-12-04] MEDS: [UNRECOGNIZED DRUG - OTHER] GT PRN (05:09)
[2016-12-04] MEDS: CHLORHEXIDINE GLUCONATE 15 ML UDC MM SCH ×2 (05:09→17:54)
[2016-12-04 07:45] VITALS: BP 109/71
[2016-12-04] MEDS: CHOLECALCIFEROL (VITAMIN D 3) 400 UNIT TABLET GT SCH ×2 (08:20→20:20)
[2016-12-04] MEDS: VALACYCLOVIR HCL 500 MG TABLET PEG SCH (08:20)
[2016-12-04] MEDS: RIFAXIMIN 550 MG TABLET PO SCH ×2 (08:20→17:54)
[2016-12-04] MEDS: PROSOURCE / PROSTAT (PYXIS) 30 ML UDC GT SCH (08:20)
[2016-12-04] MEDS: ASPIRIN 81 MG TAB.CHEW GT SCH (08:20)
[2016-12-04] MEDS: DOXAZOSIN MESYLATE 8 MG GT SCH (08:20)
[2016-12-04] MEDS: POTASSIUM CHLORIDE 10 MEQ GT SCH (08:20)
[2016-12-04] MEDS: FINASTERIDE (5 MG) 5 MG TABLET GT SCH (08:20)
[2016-12-04] MEDS: HYDROGEN PEROXIDE 480 ML BOTTLE TP SCH ×2 (08:21→20:20)
[2016-12-04] MEDS: VITAMINS A AND D 56.7 GM TUBE TP SCH ×4 (08:21→20:21)
[2016-12-04] MEDS: Z GUARD REMEDY 4 OZ OINT TP SCH ×2 (08:21→20:21)
[2016-12-04] MEDS: PRUNE JUICE GT SCH (12:00)
--- NOTE | 2016-12-04 14:40 | NUR ---
INTERDISCIPLINARY TEAM CONFERENCE (IDT) was held today. Resident's did not want to attend IDT meeting. Dr. Mejia and the interdisciplinary team reviewed the current plan of care in detail. New orders were reviewed. Resident is taking medications for narcolepsy and pharmacy stated that they need consent from family. Per Dr. Mejia, questions will be deferred to Dr. Edwards. No other changes were noted.
[2016-12-04] MEDS: FIBERSOURCE HN 1,000 ML BOTTLE GT PRN (15:37)
[2016-12-04 17:06] LABS: ALBUMIN 3.1 g/dL (3.4-5.0); BILIRUBIN,TOTAL 0.7 mg/dL (0.2-1.0); CALCIUM, SERUM 8.6 mg/dL (8.5-10.1); CREATININE 0.9 mg/dL (0.6-1.3); POTASSIUM 4.2 mmol/L (3.5-5.1); TOTAL PROTEIN, SERUM 7.1 g/dL (6.4-8.2)
[2016-12-04] MEDS: METHYLNALTREXONE BROMIDE 12 MG/0.6 ML VIAL SQ SCH (20:20)
[2016-12-04] MEDS: MAGNESIUM HYDROXIDE 30 ML UDC GT PRN (20:21)
[2016-12-04 20:32] LABS: APPEARANCE,URINE SL CLOUDY (CLEAR); BILIRUBIN,URINE NEGATIVE (NEGATIVE); BLOOD, URINE TRACE Ery/uL (NEGATIVE); COLOR,URINE YELLOW (YELLOW); KETONES,URINE NEGATIVE (NEGATIVE); LEUKOCYTE ESTERASE ,URINE 3+ (NEGATIVE); NITRITE, URINE POSITIVE (NEGATIVE); PH,URINE 7.5 (5.0-8.0); PROTEIN,URINE NEGATIVE (NEGATIVE); UGLUCOSE NEGATIVE (NEGATIVE); UROBILINOGEN,URINE 0.2 EU/dL (0.2)
[2016-12-04 20:39] LABS: BACTERIA,URINE Moderate /HPF (None Seen); RBC,URINE 0-2 /HPF (0-2); SQUAMOUS EPITHELIAL CELL,UR Rare /HPF (None Seen); WBC,URINE 81-100 /HPF (0-3)
[2016-12-04] MEDS: PRAVASTATIN SODIUM 20 MG TABLET GT SCH (21:19)
[2016-12-04] MEDS: LATANOPROST EYE DROP 0.005% 2.5 ML BOTTLE EACHEYE SCH (21:19)
[2016-12-04 23:23] VITALS: BP 132/91
[2016-12-05] MEDS: ALBUTEROL HALF STRENGTH 1.25 MG/3 ML VIAL.NEB NEB SCH ×4 (00:47→20:10)
[2016-12-05] MEDS: CHLORHEXIDINE GLUCONATE 15 ML UDC MM SCH ×2 (05:27→18:00)
[2016-12-05] MEDS: FIBERSOURCE HN 1,000 ML BOTTLE GT PRN (05:29)
[2016-12-05 07:37] LABS: BASOPHILS # (AUTO) 0.1 /CMM (0.0-0.2); BASOPHILS % (AUTO) 1.2 % (0.0-2.0); EOSINOPHILS # (AUTO) 0.3 /CMM (0.0-0.7); EOSINOPHILS % (AUTO) 6.8 % (0.0-6.0); HEMATOCRIT 43 % (39-51); HEMOGLOBIN 14.4 g/dL (13.5-17.5); LYMPHOCYTES % (AUTO) 22.9 % (20.0-44.0); MEAN CORPUSCULAR HEMOGLOBIN 34 PG (26.0-33.0); MEAN CORPUSCULAR HGB CONC 34 g/dl (31.0-36.0); MEAN CORPUSCULAR VOLUME 100 fL (80-96); MONOCYTES # (AUTO) 0.5 /CMM (0.1-1.30); MONOCYTES % (AUTO) 10.3 % (2.0-12.0); NEUTROPHILS # (AUTO) 2.6 /CMM (1.8-8.9); NEUTROPHILS % (AUTO) 58.8 % (43.0-81.0); PLATELET COUNT (AUTO) 94 /CMM (150-450); RDW COEFFICIENT OF VARIATION 13.7 (11.5-15.0); WHITE BLOOD COUNT (AUTO) 4.4 K/uL (4.3-11.0)
[2016-12-05] MEDS: ASPIRIN 81 MG TAB.CHEW GT SCH (08:25)
[2016-12-05] MEDS: DOXAZOSIN MESYLATE 8 MG GT SCH (08:25)
[2016-12-05] MEDS: PROSOURCE / PROSTAT (PYXIS) 30 ML UDC GT SCH (08:26)
[2016-12-05] MEDS: CHOLECALCIFEROL (VITAMIN D 3) 400 UNIT TABLET GT SCH ×2 (08:26→21:30)
[2016-12-05] MEDS: FINASTERIDE (5 MG) 5 MG TABLET GT SCH (08:26)
[2016-12-05] MEDS: POTASSIUM CHLORIDE 10 MEQ GT SCH (08:26)
[2016-12-05] MEDS: VALACYCLOVIR HCL 500 MG TABLET PEG SCH (08:26)
[2016-12-05] MEDS: RIFAXIMIN 550 MG TABLET PO SCH ×2 (08:26→16:56)
[2016-12-05] MEDS: HYDROGEN PEROXIDE 480 ML BOTTLE TP SCH ×2 (10:00→21:30)
[2016-12-05] MEDS: VITAMINS A AND D 56.7 GM TUBE TP SCH ×4 (10:00→21:30)
[2016-12-05] MEDS: Z GUARD REMEDY 4 OZ OINT TP SCH ×2 (10:00→21:30)
[2016-12-05] MEDS: HYDROCODONE/APAP 7.5/325MG 1 EACH TABLET GT PRN (10:41)
[2016-12-05] MEDS: PRUNE JUICE GT SCH (12:00)
--- NOTE | 2016-12-05 12:35 | NUR ---
Notified Dr. Edwards that CBC, CMP and UA and preliminary urine cx result (gram neg rods) are available in [facility], he stated he will review the result. Asked what was the reason he ordered the labs yesterday? He stated that it is more of routine labs and that the is always complaining that patient is not walking, he is more lethargic etc. Resident's at bedside resident up in the wheelchair, stable not lethargic.
[2016-12-05 20:48] VITALS: BP 134/80
[2016-12-05] MEDS: LATANOPROST EYE DROP 0.005% 2.5 ML BOTTLE EACHEYE SCH (21:30)
[2016-12-05] MEDS: PRAVASTATIN SODIUM 20 MG TABLET GT SCH (21:30)
[2016-12-05] MEDS: METHYLNALTREXONE BROMIDE 12 MG/0.6 ML VIAL SQ SCH (21:30)
[2016-12-06] MEDS: ALBUTEROL HALF STRENGTH 1.25 MG/3 ML VIAL.NEB NEB SCH ×4 (00:59→19:23)
--- NOTE | 2016-12-06 01:11 | NUR ---
EQUIPMENT CHANGED. Addendum: 12/06/16 at 0111 by YOSEF ALVAREZ RT Amended: Links added.
[2016-12-06] MEDS: CHLORHEXIDINE GLUCONATE 15 ML UDC MM SCH ×2 (05:41→17:27)
[2016-12-06] MEDS: FIBERSOURCE HN 1,000 ML BOTTLE GT PRN (06:34)
[2016-12-06 08:27] VITALS: BP 132/80
[2016-12-06] MEDS: FINASTERIDE (5 MG) 5 MG TABLET GT SCH (08:55)
[2016-12-06] MEDS: PROSOURCE / PROSTAT (PYXIS) 30 ML UDC GT SCH (08:55)
[2016-12-06] MEDS: HYDROGEN PEROXIDE 480 ML BOTTLE TP SCH ×2 (08:55→20:27)
[2016-12-06] MEDS: RIFAXIMIN 550 MG TABLET PO SCH ×2 (08:55→16:42)
[2016-12-06] MEDS: DOXAZOSIN MESYLATE 8 MG GT SCH (08:55)
[2016-12-06] MEDS: VALACYCLOVIR HCL 500 MG TABLET PEG SCH (08:55)
[2016-12-06] MEDS: CHOLECALCIFEROL (VITAMIN D 3) 400 UNIT TABLET GT SCH ×2 (08:55→20:27)
[2016-12-06] MEDS: ASPIRIN 81 MG TAB.CHEW GT SCH (08:55)
[2016-12-06] MEDS: Z GUARD REMEDY 4 OZ OINT TP SCH ×2 (08:55→20:27)
[2016-12-06] MEDS: POTASSIUM CHLORIDE 10 MEQ GT SCH (08:55)
[2016-12-06] MEDS: VITAMINS A AND D 56.7 GM TUBE TP SCH ×4 (08:56→20:27)
--- NOTE | 2016-12-06 11:59 | NUR ---
Seen and examined by Dr. Edwards with no new order given.
[2016-12-06] MEDS: PRUNE JUICE GT SCH (12:14)
--- NOTE | 2016-12-06 14:47 | NUR ---
Received urine culture result relayed to Dr. Edwards, organism 1 E. Coli ESBL >100,000 cfu/ml per Dr. Edwards no new order at this time. RP made aware.
[2016-12-06 19:20] VITALS: BP 122/75
[2016-12-06] MEDS: HYDROCODONE/APAP 7.5/325MG 1 EACH TABLET GT PRN (19:48)
[2016-12-06] MEDS: METHYLNALTREXONE BROMIDE 12 MG/0.6 ML VIAL SQ SCH (20:27)
[2016-12-06] MEDS: LATANOPROST EYE DROP 0.005% 2.5 ML BOTTLE EACHEYE SCH (22:00)
[2016-12-06] MEDS: PRAVASTATIN SODIUM 20 MG TABLET GT SCH (22:00)
[2016-12-07] MEDS: ALBUTEROL HALF STRENGTH 1.25 MG/3 ML VIAL.NEB NEB SCH ×4 (01:53→19:16)
[2016-12-07] MEDS: CHLORHEXIDINE GLUCONATE 15 ML UDC MM SCH ×2 (06:02→17:30)
[2016-12-07] MEDS: FIBERSOURCE HN 1,000 ML BOTTLE GT PRN (06:13)
[2016-12-07 08:00] VITALS: BP 119/68
[2016-12-07] MEDS: POTASSIUM CHLORIDE 10 MEQ GT SCH (08:54)
[2016-12-07] MEDS: ASPIRIN 81 MG TAB.CHEW GT SCH (08:54)
[2016-12-07] MEDS: DOXAZOSIN MESYLATE 8 MG GT SCH (08:54)
[2016-12-07] MEDS: RIFAXIMIN 550 MG TABLET PO SCH ×2 (08:55→17:30)
[2016-12-07] MEDS: FINASTERIDE (5 MG) 5 MG TABLET GT SCH (08:55)
[2016-12-07] MEDS: PROSOURCE / PROSTAT (PYXIS) 30 ML UDC GT SCH (08:55)
[2016-12-07] MEDS: CHOLECALCIFEROL (VITAMIN D 3) 400 UNIT TABLET GT SCH ×2 (08:55→20:51)
[2016-12-07] MEDS: VALACYCLOVIR HCL 500 MG TABLET PEG SCH (08:55)
[2016-12-07] MEDS: VITAMINS A AND D 56.7 GM TUBE TP SCH ×4 (09:00→20:59)
[2016-12-07] MEDS: HYDROGEN PEROXIDE 480 ML BOTTLE TP SCH ×2 (09:00→20:51)
[2016-12-07] MEDS: Z GUARD REMEDY 4 OZ OINT TP SCH ×2 (09:00→20:53)
[2016-12-07] MEDS: PRUNE JUICE GT SCH (12:00)
--- NOTE | 2016-12-07 16:00 | NUR ---
Was informed by professional nursing tutor Valeria Voss that CNO had a meeting with resident's and her youngest daughter. It was determined that resident's cannot be in the room while staff are repositioning, cleaning, changing, or bathing him as resident's was constantly interfering with the care being provided to the resident. Daughter understood. The issue will be revisited at the end of three weeks (around December 21) to see if this will be lifted.
[2016-12-07 19:55] VITALS: BP 117/74
[2016-12-07] MEDS: METHYLNALTREXONE BROMIDE 12 MG/0.6 ML VIAL SQ SCH (20:51)
[2016-12-07] MEDS: LATANOPROST EYE DROP 0.005% 2.5 ML BOTTLE EACHEYE SCH (21:01)
[2016-12-07] MEDS: PRAVASTATIN SODIUM 20 MG TABLET GT SCH (21:01)
[2016-12-08] MEDS: ALBUTEROL HALF STRENGTH 1.25 MG/3 ML VIAL.NEB NEB SCH ×4 (01:08→20:20)
[2016-12-08] MEDS: CHLORHEXIDINE GLUCONATE 15 ML UDC MM SCH ×2 (05:42→18:46)
[2016-12-08] MEDS: FIBERSOURCE HN 1,000 ML BOTTLE GT PRN (06:16)
[2016-12-08 08:00] VITALS: BP 109/69
[2016-12-08] MEDS: ASPIRIN 81 MG TAB.CHEW GT SCH (08:32)
[2016-12-08] MEDS: CHOLECALCIFEROL (VITAMIN D 3) 400 UNIT TABLET GT SCH ×2 (08:35→20:48)
[2016-12-08] MEDS: DOXAZOSIN MESYLATE 8 MG GT SCH (08:35)
[2016-12-08] MEDS: VALACYCLOVIR HCL 500 MG TABLET PEG SCH (08:35)
[2016-12-08] MEDS: RIFAXIMIN 550 MG TABLET PO SCH ×2 (08:35→16:56)
[2016-12-08] MEDS: PROSOURCE / PROSTAT (PYXIS) 30 ML UDC GT SCH (08:35)
[2016-12-08] MEDS: POTASSIUM CHLORIDE 10 MEQ GT SCH (08:35)
[2016-12-08] MEDS: FINASTERIDE (5 MG) 5 MG TABLET GT SCH (08:35)
[2016-12-08] MEDS: Z GUARD REMEDY 4 OZ OINT TP SCH ×2 (09:00→20:48)
[2016-12-08] MEDS: HYDROGEN PEROXIDE 480 ML BOTTLE TP SCH ×2 (09:00→20:48)
[2016-12-08] MEDS: VITAMINS A AND D 56.7 GM TUBE TP SCH ×4 (09:00→20:49)
--- NOTE | 2016-12-08 09:30 | NUR ---
Seen by Dr Edwards with no new order.
--- NOTE | 2016-12-08 10:10 | NUR ---
Seen and examined by Dr Mejia with no new order.
[2016-12-08] MEDS: PRUNE JUICE GT SCH (12:59)
[2016-12-08 19:55] VITALS: BP 127/78
[2016-12-08] MEDS: METHYLNALTREXONE BROMIDE 12 MG/0.6 ML VIAL SQ SCH (20:48)
[2016-12-08] MEDS: PRAVASTATIN SODIUM 20 MG TABLET GT SCH (21:31)
[2016-12-08] MEDS: LATANOPROST EYE DROP 0.005% 2.5 ML BOTTLE EACHEYE SCH (21:31)
[2016-12-09] MEDS: ALBUTEROL HALF STRENGTH 1.25 MG/3 ML VIAL.NEB NEB SCH ×4 (01:30→19:56)
[2016-12-09] MEDS: FIBERSOURCE HN 1,000 ML BOTTLE GT PRN (04:41)
[2016-12-09] MEDS: CHLORHEXIDINE GLUCONATE 15 ML UDC MM SCH ×2 (05:20→18:31)
--- NOTE | 2016-12-09 07:55 | NUR ---
Social Service Section of MDS assessment (2nd quarter) completed. Resident has a trach and g-tube for feeding. would like for resident to remain in the facility until stable for discharge and would eventually like to take him home. Resident's and his daughter's are his conservators. is here on a daily basis.
[2016-12-09 08:00] VITALS: BP 136/99
[2016-12-09] MEDS: POTASSIUM CHLORIDE 10 MEQ GT SCH (08:48)
[2016-12-09] MEDS: ASPIRIN 81 MG TAB.CHEW GT SCH (08:48)
[2016-12-09] MEDS: VALACYCLOVIR HCL 500 MG TABLET PEG SCH (08:48)
[2016-12-09] MEDS: PROSOURCE / PROSTAT (PYXIS) 30 ML UDC GT SCH (08:48)
[2016-12-09] MEDS: CHOLECALCIFEROL (VITAMIN D 3) 400 UNIT TABLET GT SCH ×2 (08:48→21:12)
[2016-12-09] MEDS: FINASTERIDE (5 MG) 5 MG TABLET GT SCH (08:48)
[2016-12-09] MEDS: RIFAXIMIN 550 MG TABLET PO SCH ×2 (08:48→17:00)
[2016-12-09] MEDS: DOXAZOSIN MESYLATE 8 MG GT SCH (08:48)
[2016-12-09] MEDS: Z GUARD REMEDY 4 OZ OINT TP SCH ×2 (08:49→21:12)
[2016-12-09] MEDS: HYDROGEN PEROXIDE 480 ML BOTTLE TP SCH ×2 (08:49→21:12)
[2016-12-09] MEDS: VITAMINS A AND D 56.7 GM TUBE TP SCH ×4 (08:49→21:12)
--- NOTE | 2016-12-09 11:41 | NUR ---
Seen and examined by Dr. Edwards, new order to discontinue EES secondary to non usage per pharmacy recommendation.
[2016-12-09] MEDS: PRUNE JUICE GT SCH (12:00)
[2016-12-09 20:15] VITALS: BP 123/75
[2016-12-09] MEDS: PRAVASTATIN SODIUM 20 MG TABLET GT SCH (21:12)
[2016-12-09] MEDS: LATANOPROST EYE DROP 0.005% 2.5 ML BOTTLE EACHEYE SCH (21:12)
[2016-12-09] MEDS: METHYLNALTREXONE BROMIDE 12 MG/0.6 ML VIAL SQ SCH (21:12)
[2016-12-09] MEDS: HYDROCODONE/APAP 7.5/325MG 1 EACH TABLET GT PRN (22:11)
[2016-12-10] MEDS: ALBUTEROL HALF STRENGTH 1.25 MG/3 ML VIAL.NEB NEB SCH ×4 (01:24→20:37)
[2016-12-10] MEDS: CHLORHEXIDINE GLUCONATE 15 ML UDC MM SCH ×2 (05:40→17:12)
[2016-12-10 07:28] VITALS: BP 120/67
[2016-12-10] MEDS: FINASTERIDE (5 MG) 5 MG TABLET GT SCH (08:40)
[2016-12-10] MEDS: CHOLECALCIFEROL (VITAMIN D 3) 400 UNIT TABLET GT SCH ×2 (08:40→21:25)
[2016-12-10] MEDS: RIFAXIMIN 550 MG TABLET PO SCH ×2 (08:40→17:12)
[2016-12-10] MEDS: POTASSIUM CHLORIDE 10 MEQ GT SCH (08:40)
[2016-12-10] MEDS: HYDROGEN PEROXIDE 480 ML BOTTLE TP SCH ×2 (08:40→21:25)
[2016-12-10] MEDS: PROSOURCE / PROSTAT (PYXIS) 30 ML UDC GT SCH (08:40)
[2016-12-10] MEDS: ASPIRIN 81 MG TAB.CHEW GT SCH (08:40)
[2016-12-10] MEDS: Z GUARD REMEDY 4 OZ OINT TP SCH ×2 (08:40→21:24)
[2016-12-10] MEDS: VALACYCLOVIR HCL 500 MG TABLET PEG SCH (08:40)
[2016-12-10] MEDS: DOXAZOSIN MESYLATE 8 MG GT SCH (08:40)
[2016-12-10] MEDS: VITAMINS A AND D 56.7 GM TUBE TP SCH ×4 (08:40→21:24)
[2016-12-10] MEDS: PRUNE JUICE GT SCH (12:00)
[2016-12-10] MEDS: FIBERSOURCE HN 1,000 ML BOTTLE GT PRN (17:12)
[2016-12-10 19:19] VITALS: BP 128/55
[2016-12-10] MEDS: METHYLNALTREXONE BROMIDE 12 MG/0.6 ML VIAL SQ SCH (21:25)
[2016-12-10] MEDS: LATANOPROST EYE DROP 0.005% 2.5 ML BOTTLE EACHEYE SCH (21:25)
[2016-12-10] MEDS: PRAVASTATIN SODIUM 20 MG TABLET GT SCH (21:26)
[2016-12-11] MEDS: ALBUTEROL HALF STRENGTH 1.25 MG/3 ML VIAL.NEB NEB SCH ×4 (01:09→19:30)
[2016-12-11] MEDS: CHLORHEXIDINE GLUCONATE 15 ML UDC MM SCH ×2 (05:42→17:10)
[2016-12-11 07:54] VITALS: BP 109/68
[2016-12-11] MEDS: POTASSIUM CHLORIDE 10 MEQ GT SCH (08:34)
[2016-12-11] MEDS: PROSOURCE / PROSTAT (PYXIS) 30 ML UDC GT SCH (08:34)
[2016-12-11] MEDS: CHOLECALCIFEROL (VITAMIN D 3) 400 UNIT TABLET GT SCH ×2 (08:34→21:14)
[2016-12-11] MEDS: RIFAXIMIN 550 MG TABLET PO SCH ×2 (08:34→16:57)
[2016-12-11] MEDS: FINASTERIDE (5 MG) 5 MG TABLET GT SCH (08:34)
[2016-12-11] MEDS: DOXAZOSIN MESYLATE 8 MG GT SCH (08:34)
[2016-12-11] MEDS: ASPIRIN 81 MG TAB.CHEW GT SCH (08:34)
[2016-12-11] MEDS: VALACYCLOVIR HCL 500 MG TABLET PEG SCH (08:34)
[2016-12-11] MEDS: Z GUARD REMEDY 4 OZ OINT TP SCH ×2 (08:35→21:14)
[2016-12-11] MEDS: VITAMINS A AND D 56.7 GM TUBE TP SCH ×4 (08:35→21:14)
[2016-12-11] MEDS: HYDROGEN PEROXIDE 480 ML BOTTLE TP SCH ×2 (08:35→21:14)
[2016-12-11] MEDS: PRUNE JUICE GT SCH (12:00)
[2016-12-11 19:49] VITALS: BP 133/82
[2016-12-11] MEDS: METHYLNALTREXONE BROMIDE 12 MG/0.6 ML VIAL SQ SCH (21:14)
[2016-12-11] MEDS: LATANOPROST EYE DROP 0.005% 2.5 ML BOTTLE EACHEYE SCH (21:15)
[2016-12-11] MEDS: PRAVASTATIN SODIUM 20 MG TABLET GT SCH (21:15)
[2016-12-12] MEDS: ALBUTEROL HALF STRENGTH 1.25 MG/3 ML VIAL.NEB NEB SCH ×4 (01:02→19:39)
[2016-12-12] MEDS: CHLORHEXIDINE GLUCONATE 15 ML UDC MM SCH ×2 (05:14→17:10)
[2016-12-12 07:45] VITALS: BP 103/67
[2016-12-12] MEDS: FINASTERIDE (5 MG) 5 MG TABLET GT SCH (08:20)
[2016-12-12] MEDS: DOXAZOSIN MESYLATE 8 MG GT SCH (08:20)
[2016-12-12] MEDS: POTASSIUM CHLORIDE 10 MEQ GT SCH (08:20)
[2016-12-12] MEDS: CHOLECALCIFEROL (VITAMIN D 3) 400 UNIT TABLET GT SCH ×2 (08:20→21:00)
[2016-12-12] MEDS: RIFAXIMIN 550 MG TABLET PO SCH ×2 (08:20→17:10)
[2016-12-12] MEDS: PROSOURCE / PROSTAT (PYXIS) 30 ML UDC GT SCH (08:20)
[2016-12-12] MEDS: VALACYCLOVIR HCL 500 MG TABLET PEG SCH (08:20)
[2016-12-12] MEDS: ASPIRIN 81 MG TAB.CHEW GT SCH (08:20)
[2016-12-12] MEDS: VITAMINS A AND D 56.7 GM TUBE TP SCH ×4 (11:00→21:00)
[2016-12-12] MEDS: HYDROGEN PEROXIDE 480 ML BOTTLE TP SCH ×2 (11:00→21:00)
[2016-12-12] MEDS: Z GUARD REMEDY 4 OZ OINT TP SCH ×2 (11:00→21:00)
[2016-12-12] MEDS: PRUNE JUICE GT SCH (12:00)
--- NOTE | 2016-12-12 13:21 | NUR ---
Seen and examined by Dr. Edwards NNO given. Addendum: 12/12/16 at 1443 by SAW MENDIOLA RN Dr. Edwards signed prior authorization request form for Xifaxan 550 mg and faxed back to [place] department of [facility] ([phone]), [facility] pharmacy will be providing medication after current supply is consumed.
[2016-12-12] MEDS: FIBERSOURCE HN 1,000 ML BOTTLE GT PRN (14:54)
[2016-12-12 19:47] VITALS: BP 134/71
[2016-12-12] MEDS: HYDROCODONE/APAP 7.5/325MG 1 EACH TABLET GT PRN (20:27)
[2016-12-12] MEDS: METHYLNALTREXONE BROMIDE 12 MG/0.6 ML VIAL SQ SCH (21:00)
[2016-12-12] MEDS: PRAVASTATIN SODIUM 20 MG TABLET GT SCH (22:03)
[2016-12-12] MEDS: LATANOPROST EYE DROP 0.005% 2.5 ML BOTTLE EACHEYE SCH (22:03)
[2016-12-13] MEDS: ALBUTEROL HALF STRENGTH 1.25 MG/3 ML VIAL.NEB NEB SCH ×4 (01:23→20:28)
[2016-12-13] MEDS: CHLORHEXIDINE GLUCONATE 15 ML UDC MM SCH ×2 (05:22→17:08)
[2016-12-13] MEDS: FIBERSOURCE HN 1,000 ML BOTTLE GT PRN (06:42)
[2016-12-13 07:41] VITALS: BP 124/76
[2016-12-13] MEDS: POTASSIUM CHLORIDE 10 MEQ GT SCH (08:26)
[2016-12-13] MEDS: VALACYCLOVIR HCL 500 MG TABLET PEG SCH (08:26)
[2016-12-13] MEDS: CHOLECALCIFEROL (VITAMIN D 3) 400 UNIT TABLET GT SCH ×2 (08:26→21:10)
[2016-12-13] MEDS: DOXAZOSIN MESYLATE 8 MG GT SCH (08:26)
[2016-12-13] MEDS: FINASTERIDE (5 MG) 5 MG TABLET GT SCH (08:26)
[2016-12-13] MEDS: RIFAXIMIN 550 MG TABLET PO SCH ×2 (08:26→17:07)
[2016-12-13] MEDS: ASPIRIN 81 MG TAB.CHEW GT SCH (08:26)
[2016-12-13] MEDS: PROSOURCE / PROSTAT (PYXIS) 30 ML UDC GT SCH (08:26)
[2016-12-13] MEDS: Z GUARD REMEDY 4 OZ OINT TP SCH ×2 (10:30→21:11)
[2016-12-13] MEDS: HYDROGEN PEROXIDE 480 ML BOTTLE TP SCH ×2 (10:30→21:11)
[2016-12-13] MEDS: VITAMINS A AND D 56.7 GM TUBE TP SCH ×4 (10:30→21:11)
[2016-12-13] MEDS: HYDROCODONE/APAP 7.5/325MG 1 EACH TABLET GT PRN (11:59)
[2016-12-13] MEDS: PRUNE JUICE GT SCH (12:52)
[2016-12-13 19:56] VITALS: BP 85/56
[2016-12-13] MEDS: METHYLNALTREXONE BROMIDE 12 MG/0.6 ML VIAL SQ SCH (21:10)
[2016-12-13] MEDS: LATANOPROST EYE DROP 0.005% 2.5 ML BOTTLE EACHEYE SCH (21:11)
[2016-12-13] MEDS: PRAVASTATIN SODIUM 20 MG TABLET GT SCH (21:11)
[2016-12-14] MEDS: ALBUTEROL HALF STRENGTH 1.25 MG/3 ML VIAL.NEB NEB SCH ×4 (01:35→19:30)
[2016-12-14] MEDS: CHLORHEXIDINE GLUCONATE 15 ML UDC MM SCH ×2 (05:31→17:58)
[2016-12-14] MEDS: HYDROCODONE/APAP 7.5/325MG 1 EACH TABLET GT PRN (05:32)
[2016-12-14 08:06] VITALS: BP 101/68
[2016-12-14] MEDS: FINASTERIDE (5 MG) 5 MG TABLET GT SCH (08:34)
[2016-12-14] MEDS: PROSOURCE / PROSTAT (PYXIS) 30 ML UDC GT SCH (08:34)
[2016-12-14] MEDS: DOXAZOSIN MESYLATE 8 MG GT SCH (08:34)
[2016-12-14] MEDS: RIFAXIMIN 550 MG TABLET PO SCH ×2 (08:34→17:58)
[2016-12-14] MEDS: ASPIRIN 81 MG TAB.CHEW GT SCH (08:34)
[2016-12-14] MEDS: VALACYCLOVIR HCL 500 MG TABLET PEG SCH (08:34)
[2016-12-14] MEDS: POTASSIUM CHLORIDE 10 MEQ GT SCH (08:34)
[2016-12-14] MEDS: CHOLECALCIFEROL (VITAMIN D 3) 400 UNIT TABLET GT SCH ×2 (08:34→21:07)
[2016-12-14] MEDS: VITAMINS A AND D 56.7 GM TUBE TP SCH ×4 (11:00→21:07)
[2016-12-14] MEDS: Z GUARD REMEDY 4 OZ OINT TP SCH ×2 (11:00→21:07)
[2016-12-14] MEDS: HYDROGEN PEROXIDE 480 ML BOTTLE TP SCH ×2 (11:00→21:07)
[2016-12-14] MEDS: PRUNE JUICE GT SCH (12:00)
--- NOTE | 2016-12-14 12:40 | NUR ---
SW asked resident's if she wants a haircut for her . She stated that yes she does. Will inform Elizabeth when she comes to give the haircuts on December 30, 2016.
[2016-12-14] MEDS: FIBERSOURCE HN 1,000 ML BOTTLE GT PRN (15:37)
[2016-12-14 19:54] VITALS: BP 131/78
[2016-12-14] MEDS: METHYLNALTREXONE BROMIDE 12 MG/0.6 ML VIAL SQ SCH (21:07)
[2016-12-14] MEDS: PRAVASTATIN SODIUM 20 MG TABLET GT SCH (21:08)
[2016-12-14] MEDS: LATANOPROST EYE DROP 0.005% 2.5 ML BOTTLE EACHEYE SCH (21:08)
[2016-12-15] MEDS: ALBUTEROL HALF STRENGTH 1.25 MG/3 ML VIAL.NEB NEB SCH ×4 (01:11→19:30)
[2016-12-15] MEDS: CHLORHEXIDINE GLUCONATE 15 ML UDC MM SCH ×2 (05:46→18:20)
[2016-12-15 08:01] VITALS: BP 123/70
[2016-12-15] MEDS: ASPIRIN 81 MG TAB.CHEW GT SCH (09:07)
[2016-12-15] MEDS: RIFAXIMIN 550 MG TABLET PO SCH ×2 (09:12→17:41)
[2016-12-15] MEDS: VALACYCLOVIR HCL 500 MG TABLET PEG SCH (09:12)
[2016-12-15] MEDS: Z GUARD REMEDY 4 OZ OINT TP SCH ×2 (09:12→21:23)
[2016-12-15] MEDS: VITAMINS A AND D 56.7 GM TUBE TP SCH ×4 (09:12→21:23)
[2016-12-15] MEDS: HYDROGEN PEROXIDE 480 ML BOTTLE TP SCH ×2 (09:12→21:22)
[2016-12-15] MEDS: CHOLECALCIFEROL (VITAMIN D 3) 400 UNIT TABLET GT SCH ×2 (09:13→21:21)
[2016-12-15] MEDS: PROSOURCE / PROSTAT (PYXIS) 30 ML UDC GT SCH (09:13)
[2016-12-15] MEDS: POTASSIUM CHLORIDE 10 MEQ GT SCH (09:14)
[2016-12-15] MEDS: FINASTERIDE (5 MG) 5 MG TABLET GT SCH (09:14)
[2016-12-15] MEDS: DOXAZOSIN MESYLATE 8 MG GT SCH (09:15)
[2016-12-15] MEDS: PRUNE JUICE GT SCH (12:09)
--- NOTE | 2016-12-15 13:53 | NUR ---
SKIP called the office of Dr. Silverio, b2b sales professional, as she was informed by charge nurse that has been putting antifungal cream on his toes without an order. SKIP spoke to medical secretary receptionist who stated that Dr. Silverio was out today since he was feeling sick and would be speaking to him later on. She took the SKIP's contact information and she will call back hopefully tomorrow if Dr. Silverio is in.
[2016-12-15] MEDS: ACETAMINOPHEN 650 MG/20 ML UDC- FOR SA PATIENTS ONLY PO PRN (18:15)
[2016-12-15 19:36] VITALS: BP 136/74
[2016-12-15] MEDS: METHYLNALTREXONE BROMIDE 12 MG/0.6 ML VIAL SQ SCH (21:22)
[2016-12-15] MEDS: LATANOPROST EYE DROP 0.005% 2.5 ML BOTTLE EACHEYE SCH (21:23)
[2016-12-15] MEDS: PRAVASTATIN SODIUM 20 MG TABLET GT SCH (21:23)
[2016-12-16] MEDS: ALBUTEROL HALF STRENGTH 1.25 MG/3 ML VIAL.NEB NEB SCH ×4 (01:14→20:20)
[2016-12-16] MEDS: HYDROCODONE/APAP 7.5/325MG 1 EACH TABLET GT PRN ×2 (04:46→23:32)
[2016-12-16] MEDS: CHLORHEXIDINE GLUCONATE 15 ML UDC MM SCH ×2 (06:32→18:49)
[2016-12-16 08:14] VITALS: BP 127/78
[2016-12-16] MEDS: CHOLECALCIFEROL (VITAMIN D 3) 400 UNIT TABLET GT SCH ×2 (08:23→21:04)
[2016-12-16] MEDS: DOXAZOSIN MESYLATE 8 MG GT SCH (08:23)
[2016-12-16] MEDS: ASPIRIN 81 MG TAB.CHEW GT SCH (08:23)
[2016-12-16] MEDS: POTASSIUM CHLORIDE 10 MEQ GT SCH (08:23)
[2016-12-16] MEDS: PROSOURCE / PROSTAT (PYXIS) 30 ML UDC GT SCH (08:23)
[2016-12-16] MEDS: VALACYCLOVIR HCL 500 MG TABLET PEG SCH (08:23)
[2016-12-16] MEDS: FINASTERIDE (5 MG) 5 MG TABLET GT SCH (08:23)
[2016-12-16] MEDS: RIFAXIMIN 550 MG TABLET PO SCH ×2 (08:23→17:00)
[2016-12-16] MEDS: Z GUARD REMEDY 4 OZ OINT TP SCH ×2 (11:15→21:04)
[2016-12-16] MEDS: HYDROGEN PEROXIDE 480 ML BOTTLE TP SCH ×2 (11:15→21:04)
[2016-12-16] MEDS: VITAMINS A AND D 56.7 GM TUBE TP SCH ×4 (11:15→21:05)
[2016-12-16] MEDS: PRUNE JUICE GT SCH (12:00)
[2016-12-16 20:00] VITALS: BP 134/74
[2016-12-16] MEDS: METHYLNALTREXONE BROMIDE 12 MG/0.6 ML VIAL SQ SCH (21:04)
[2016-12-16] MEDS: LATANOPROST EYE DROP 0.005% 2.5 ML BOTTLE EACHEYE SCH (21:05)
[2016-12-16] MEDS: FIBERSOURCE HN 1,000 ML BOTTLE GT PRN (21:06)
[2016-12-16] MEDS: PRAVASTATIN SODIUM 20 MG TABLET GT SCH (21:06)
[2016-12-17] MEDS: ALBUTEROL HALF STRENGTH 1.25 MG/3 ML VIAL.NEB NEB SCH ×4 (01:53→20:24)
[2016-12-17] MEDS: CHLORHEXIDINE GLUCONATE 15 ML UDC MM SCH ×2 (05:19→18:10)
[2016-12-17 08:05] VITALS: BP 123/74
[2016-12-17] MEDS: FINASTERIDE (5 MG) 5 MG TABLET GT SCH (09:13)
[2016-12-17] MEDS: PROSOURCE / PROSTAT (PYXIS) 30 ML UDC GT SCH (09:13)
[2016-12-17] MEDS: ASPIRIN 81 MG TAB.CHEW GT SCH (09:13)
[2016-12-17] MEDS: POTASSIUM CHLORIDE 10 MEQ GT SCH (09:13)
[2016-12-17] MEDS: VALACYCLOVIR HCL 500 MG TABLET PEG SCH (09:13)
[2016-12-17] MEDS: CHOLECALCIFEROL (VITAMIN D 3) 400 UNIT TABLET GT SCH ×2 (09:13→21:49)
[2016-12-17] MEDS: DOXAZOSIN MESYLATE 8 MG GT SCH (09:13)
[2016-12-17] MEDS: HYDROGEN PEROXIDE 480 ML BOTTLE TP SCH ×2 (09:14→21:49)
[2016-12-17] MEDS: RIFAXIMIN 550 MG TABLET PO SCH ×2 (09:14→17:00)
[2016-12-17] MEDS: VITAMINS A AND D 56.7 GM TUBE TP SCH ×4 (09:14→21:49)
[2016-12-17] MEDS: Z GUARD REMEDY 4 OZ OINT TP SCH ×2 (09:14→21:49)
[2016-12-17] MEDS: HYDROCODONE/APAP 7.5/325MG 1 EACH TABLET GT PRN (09:42)
--- NOTE | 2016-12-17 09:51 | NUR ---
Called Jossy at Dr. Silverio's (audit tech) office. She stated that he is not in today but SW can call tomorrow to see if he is available. SW will follow up. Charge nurse informed.
[2016-12-17] MEDS: PRUNE JUICE GT SCH (12:49)
[2016-12-17] MEDS: FIBERSOURCE HN 1,000 ML BOTTLE GT PRN (18:11)
[2016-12-17] MEDS: METHYLNALTREXONE BROMIDE 12 MG/0.6 ML VIAL SQ SCH (21:49)
[2016-12-17] MEDS: LATANOPROST EYE DROP 0.005% 2.5 ML BOTTLE EACHEYE SCH (21:50)
[2016-12-17] MEDS: PRAVASTATIN SODIUM 20 MG TABLET GT SCH (21:50)
[2016-12-17] MEDS: MAGNESIUM HYDROXIDE 30 ML UDC GT PRN (21:50)
[2016-12-18] MEDS: ALBUTEROL HALF STRENGTH 1.25 MG/3 ML VIAL.NEB NEB SCH ×4 (01:34→19:30)
[2016-12-18] MEDS: FIBERSOURCE HN 1,000 ML BOTTLE GT PRN (06:11)
[2016-12-18 08:05] VITALS: BP 114/72
[2016-12-18] MEDS: ASPIRIN 81 MG TAB.CHEW GT SCH (08:16)
[2016-12-18] MEDS: PROSOURCE / PROSTAT (PYXIS) 30 ML UDC GT SCH (08:16)
[2016-12-18] MEDS: VALACYCLOVIR HCL 500 MG TABLET PEG SCH (08:16)
[2016-12-18] MEDS: DOXAZOSIN MESYLATE 8 MG GT SCH (08:16)
[2016-12-18] MEDS: POTASSIUM CHLORIDE 10 MEQ GT SCH (08:16)
[2016-12-18] MEDS: CHOLECALCIFEROL (VITAMIN D 3) 400 UNIT TABLET GT SCH ×2 (08:16→21:34)
[2016-12-18] MEDS: FINASTERIDE (5 MG) 5 MG TABLET GT SCH (08:16)
[2016-12-18] MEDS: RIFAXIMIN 550 MG TABLET PO SCH ×2 (08:24→16:32)
[2016-12-18] MEDS: HYDROGEN PEROXIDE 480 ML BOTTLE TP SCH ×2 (11:56→21:34)
[2016-12-18] MEDS: PRUNE JUICE GT SCH (11:56)
[2016-12-18] MEDS: Z GUARD REMEDY 4 OZ OINT TP SCH ×2 (11:56→21:35)
[2016-12-18] MEDS: VITAMINS A AND D 56.7 GM TUBE TP SCH ×4 (11:56→21:35)
[2016-12-18] MEDS: ACETAMINOPHEN 650 MG/20 ML UDC- FOR SA PATIENTS ONLY PO PRN (11:57)
--- NOTE | 2016-12-18 15:00 | NUR ---
Seen by Dr. Silverio, cafeteria assistant with new order given. at bedside and aware of new order. Dr. Edwards came to see patient NNO given.
[2016-12-18] MEDS: CHLORHEXIDINE GLUCONATE 15 ML UDC MM SCH (17:06)
--- NOTE | 2016-12-18 18:20 | NUR ---
Paged Dr. Silverio to clarify order duration and frequency for Penlac and Clotrimazole cream, awaiting for call back.
--- NOTE | 2016-12-18 18:57 | NUR ---
Received a return call from Dr. Silverio to clarify his order. Clarified order received.
[2016-12-18 19:25] VITALS: BP 129/67
[2016-12-18] MEDS: METHYLNALTREXONE BROMIDE 12 MG/0.6 ML VIAL SQ SCH (21:34)
[2016-12-18] MEDS: PRAVASTATIN SODIUM 20 MG TABLET GT SCH (21:35)
[2016-12-18] MEDS: LATANOPROST EYE DROP 0.005% 2.5 ML BOTTLE EACHEYE SCH (21:35)
[2016-12-18] MEDS: CLOTRIMAZOLE 1% 15 GM TUBE TP SCH (21:36)
[2016-12-18] MEDS: [UNRECOGNIZED DRUG - OTHER] TP SCH (21:36)
[2016-12-18] MEDS: CICLOPIROX TP SCH (21:36)
[2016-12-19] MEDS: ALBUTEROL HALF STRENGTH 1.25 MG/3 ML VIAL.NEB NEB SCH ×4 (01:49→19:55)
[2016-12-19] MEDS: FIBERSOURCE HN 1,000 ML BOTTLE GT PRN (04:25)
[2016-12-19] MEDS: CHLORHEXIDINE GLUCONATE 15 ML UDC MM SCH ×2 (05:49→17:46)
[2016-12-19 07:56] VITALS: BP 120/73
[2016-12-19] MEDS: ASPIRIN 81 MG TAB.CHEW GT SCH (08:21)
[2016-12-19] MEDS: PROSOURCE / PROSTAT (PYXIS) 30 ML UDC GT SCH (08:21)
[2016-12-19] MEDS: CHOLECALCIFEROL (VITAMIN D 3) 400 UNIT TABLET GT SCH ×2 (08:21→21:39)
[2016-12-19] MEDS: DOXAZOSIN MESYLATE 8 MG GT SCH (08:21)
[2016-12-19] MEDS: POTASSIUM CHLORIDE 10 MEQ GT SCH (08:21)
[2016-12-19] MEDS: FINASTERIDE (5 MG) 5 MG TABLET GT SCH (08:21)
[2016-12-19] MEDS: VITAMINS A AND D 56.7 GM TUBE TP SCH ×4 (08:22→21:40)
[2016-12-19] MEDS: VALACYCLOVIR HCL 500 MG TABLET PEG SCH (08:22)
[2016-12-19] MEDS: Z GUARD REMEDY 4 OZ OINT TP SCH ×2 (08:22→21:40)
[2016-12-19] MEDS: HYDROGEN PEROXIDE 480 ML BOTTLE TP SCH ×2 (08:22→21:39)
[2016-12-19] MEDS: RIFAXIMIN 550 MG TABLET PO SCH ×2 (08:22→17:46)
[2016-12-19] MEDS: HYDROCODONE/APAP 7.5/325MG 1 EACH TABLET GT PRN (11:00)
[2016-12-19] MEDS: PRUNE JUICE GT SCH (11:44)
[2016-12-19 19:46] VITALS: BP 133/75
[2016-12-19] MEDS: METHYLNALTREXONE BROMIDE 12 MG/0.6 ML VIAL SQ SCH (21:39)
[2016-12-19] MEDS: CICLOPIROX TP SCH (21:40)
[2016-12-19] MEDS: [UNRECOGNIZED DRUG - OTHER] TP SCH (21:40)
[2016-12-19] MEDS: CLOTRIMAZOLE 1% 15 GM TUBE TP SCH (21:40)
[2016-12-19] MEDS: LATANOPROST EYE DROP 0.005% 2.5 ML BOTTLE EACHEYE SCH (21:40)
[2016-12-19] MEDS: PRAVASTATIN SODIUM 20 MG TABLET GT SCH (21:40)
[2016-12-20] MEDS: ALBUTEROL HALF STRENGTH 1.25 MG/3 ML VIAL.NEB NEB SCH ×4 (01:59→19:08)
[2016-12-20] MEDS: FIBERSOURCE HN 1,000 ML BOTTLE GT PRN (03:10)
[2016-12-20] MEDS: CHLORHEXIDINE GLUCONATE 15 ML UDC MM SCH ×2 (05:44→18:22)
[2016-12-20 08:00] VITALS: BP_SYST 107; BP_SYST 130; BP_DIAS 62; BP_DIAS 79
[2016-12-20] MEDS: RIFAXIMIN 550 MG TABLET PO SCH ×2 (08:39→16:57)
[2016-12-20] MEDS: CHOLECALCIFEROL (VITAMIN D 3) 400 UNIT TABLET GT SCH ×2 (08:39→21:18)
[2016-12-20] MEDS: DOXAZOSIN MESYLATE 8 MG GT SCH (08:39)
[2016-12-20] MEDS: FINASTERIDE (5 MG) 5 MG TABLET GT SCH (08:39)
[2016-12-20] MEDS: PROSOURCE / PROSTAT (PYXIS) 30 ML UDC GT SCH (08:39)
[2016-12-20] MEDS: ASPIRIN 81 MG TAB.CHEW GT SCH (08:39)
[2016-12-20] MEDS: VALACYCLOVIR HCL 500 MG TABLET PEG SCH (08:39)
[2016-12-20] MEDS: POTASSIUM CHLORIDE 10 MEQ GT SCH (08:39)
[2016-12-20] MEDS: HYDROGEN PEROXIDE 480 ML BOTTLE TP SCH ×2 (09:00→21:18)
[2016-12-20] MEDS: Z GUARD REMEDY 4 OZ OINT TP SCH ×2 (09:00→21:18)
[2016-12-20] MEDS: VITAMINS A AND D 56.7 GM TUBE TP SCH ×4 (09:00→21:18)
[2016-12-20] MEDS: PRUNE JUICE GT SCH (12:00)
--- NOTE | 2016-12-20 12:24 | NUR ---
Seen and examined by Dr. Edwards with no new order.
[2016-12-20 19:40] VITALS: BP 127/75
[2016-12-20] MEDS: LATANOPROST EYE DROP 0.005% 2.5 ML BOTTLE EACHEYE SCH (21:18)
[2016-12-20] MEDS: METHYLNALTREXONE BROMIDE 12 MG/0.6 ML VIAL SQ SCH (21:18)
[2016-12-20] MEDS: PRAVASTATIN SODIUM 20 MG TABLET GT SCH (21:18)
[2016-12-20] MEDS: CICLOPIROX TP SCH (21:19)
[2016-12-20] MEDS: [UNRECOGNIZED DRUG - OTHER] TP SCH (21:19)
[2016-12-20] MEDS: CLOTRIMAZOLE 1% 15 GM TUBE TP SCH (21:19)
[2016-12-21] MEDS: HYDROCODONE/APAP 7.5/325MG 1 EACH TABLET GT PRN (00:22)
[2016-12-21] MEDS: ALBUTEROL HALF STRENGTH 1.25 MG/3 ML VIAL.NEB NEB SCH ×4 (01:29→20:06)
[2016-12-21] MEDS: CHLORHEXIDINE GLUCONATE 15 ML UDC MM SCH ×2 (05:42→17:16)
[2016-12-21 08:00] VITALS: BP 110/61
[2016-12-21] MEDS: CHOLECALCIFEROL (VITAMIN D 3) 400 UNIT TABLET GT SCH ×2 (08:41→21:11)
[2016-12-21] MEDS: POTASSIUM CHLORIDE 10 MEQ GT SCH (08:41)
[2016-12-21] MEDS: FINASTERIDE (5 MG) 5 MG TABLET GT SCH (08:41)
[2016-12-21] MEDS: PROSOURCE / PROSTAT (PYXIS) 30 ML UDC GT SCH (08:41)
[2016-12-21] MEDS: DOXAZOSIN MESYLATE 8 MG GT SCH (08:41)
[2016-12-21] MEDS: RIFAXIMIN 550 MG TABLET PO SCH ×2 (08:41→17:16)
[2016-12-21] MEDS: VALACYCLOVIR HCL 500 MG TABLET PEG SCH (08:41)
[2016-12-21] MEDS: ASPIRIN 81 MG TAB.CHEW GT SCH (08:41)
[2016-12-21] MEDS: VITAMINS A AND D 56.7 GM TUBE TP SCH ×4 (10:45→21:12)
[2016-12-21] MEDS: HYDROGEN PEROXIDE 480 ML BOTTLE TP SCH ×2 (10:45→21:11)
[2016-12-21] MEDS: Z GUARD REMEDY 4 OZ OINT TP SCH ×2 (10:45→21:11)
[2016-12-21] MEDS: PRUNE JUICE GT SCH (12:00)
[2016-12-21 19:48] VITALS: BP 115/68
[2016-12-21] MEDS: METHYLNALTREXONE BROMIDE 12 MG/0.6 ML VIAL SQ SCH (21:11)
[2016-12-21] MEDS: CLOTRIMAZOLE 1% 15 GM TUBE TP SCH (21:12)
[2016-12-21] MEDS: [UNRECOGNIZED DRUG - OTHER] TP SCH (21:12)
[2016-12-21] MEDS: CICLOPIROX TP SCH (21:12)
[2016-12-21] MEDS: PRAVASTATIN SODIUM 20 MG TABLET GT SCH (21:12)
[2016-12-21] MEDS: LATANOPROST EYE DROP 0.005% 2.5 ML BOTTLE EACHEYE SCH (21:12)
[2016-12-22] MEDS: ALBUTEROL HALF STRENGTH 1.25 MG/3 ML VIAL.NEB NEB SCH ×4 (00:59→19:30)
[2016-12-22] MEDS: CHLORHEXIDINE GLUCONATE 15 ML UDC MM SCH ×2 (05:33→17:00)
[2016-12-22 08:00] VITALS: BP 119/72
[2016-12-22] MEDS: FINASTERIDE (5 MG) 5 MG TABLET GT SCH (08:52)
[2016-12-22] MEDS: DOXAZOSIN MESYLATE 8 MG GT SCH (08:52)
[2016-12-22] MEDS: RIFAXIMIN 550 MG TABLET PO SCH ×2 (08:52→17:00)
[2016-12-22] MEDS: PROSOURCE / PROSTAT (PYXIS) 30 ML UDC GT SCH (08:52)
[2016-12-22] MEDS: VALACYCLOVIR HCL 500 MG TABLET PEG SCH (08:52)
[2016-12-22] MEDS: POTASSIUM CHLORIDE 10 MEQ GT SCH (08:52)
[2016-12-22] MEDS: ASPIRIN 81 MG TAB.CHEW GT SCH (08:52)
[2016-12-22] MEDS: CHOLECALCIFEROL (VITAMIN D 3) 400 UNIT TABLET GT SCH ×2 (08:52→21:09)
[2016-12-22] MEDS: VITAMINS A AND D 56.7 GM TUBE TP SCH ×4 (09:45→21:10)
[2016-12-22] MEDS: Z GUARD REMEDY 4 OZ OINT TP SCH ×2 (09:45→21:10)
[2016-12-22] MEDS: HYDROGEN PEROXIDE 480 ML BOTTLE TP SCH ×2 (09:45→21:10)
[2016-12-22] MEDS: PRUNE JUICE GT SCH (12:37)
[2016-12-22 19:37] VITALS: BP 126/75
[2016-12-22] MEDS: LATANOPROST EYE DROP 0.005% 2.5 ML BOTTLE EACHEYE SCH (21:10)
[2016-12-22] MEDS: CICLOPIROX TP SCH (21:10)
[2016-12-22] MEDS: CLOTRIMAZOLE 1% 15 GM TUBE TP SCH (21:10)
[2016-12-22] MEDS: PRAVASTATIN SODIUM 20 MG TABLET GT SCH (21:10)
[2016-12-22] MEDS: METHYLNALTREXONE BROMIDE 12 MG/0.6 ML VIAL SQ SCH (21:10)
[2016-12-22] MEDS: [UNRECOGNIZED DRUG - OTHER] TP SCH (21:10)
[2016-12-23] MEDS: ALBUTEROL HALF STRENGTH 1.25 MG/3 ML VIAL.NEB NEB SCH ×4 (01:50→19:57)
[2016-12-23] MEDS: CHLORHEXIDINE GLUCONATE 15 ML UDC MM SCH ×2 (06:04→17:34)
[2016-12-23 07:56] VITALS: BP 136/80
[2016-12-23] MEDS: FINASTERIDE (5 MG) 5 MG TABLET GT SCH (08:44)
[2016-12-23] MEDS: POTASSIUM CHLORIDE 10 MEQ GT SCH (08:44)
[2016-12-23] MEDS: DOXAZOSIN MESYLATE 8 MG GT SCH (08:44)
[2016-12-23] MEDS: CHOLECALCIFEROL (VITAMIN D 3) 400 UNIT TABLET GT SCH ×2 (08:44→21:03)
[2016-12-23] MEDS: PROSOURCE / PROSTAT (PYXIS) 30 ML UDC GT SCH (08:44)
[2016-12-23] MEDS: RIFAXIMIN 550 MG TABLET PO SCH ×2 (08:44→17:34)
[2016-12-23] MEDS: VALACYCLOVIR HCL 500 MG TABLET PEG SCH (08:44)
[2016-12-23] MEDS: ASPIRIN 81 MG TAB.CHEW GT SCH (08:44)
[2016-12-23] MEDS: HYDROGEN PEROXIDE 480 ML BOTTLE TP SCH ×2 (11:39→21:03)
[2016-12-23] MEDS: PRUNE JUICE GT SCH (11:40)
[2016-12-23] MEDS: HYDROCODONE/APAP 7.5/325MG 1 EACH TABLET GT PRN (11:40)
[2016-12-23] MEDS: Z GUARD REMEDY 4 OZ OINT TP SCH ×2 (11:40→21:03)
[2016-12-23] MEDS: VITAMINS A AND D 56.7 GM TUBE TP SCH ×4 (11:40→21:03)
[2016-12-23 20:43] VITALS: BP 130/66
[2016-12-23] MEDS: METHYLNALTREXONE BROMIDE 12 MG/0.6 ML VIAL SQ SCH (21:03)
[2016-12-23] MEDS: LATANOPROST EYE DROP 0.005% 2.5 ML BOTTLE EACHEYE SCH (21:04)
[2016-12-23] MEDS: CICLOPIROX TP SCH (21:04)
[2016-12-23] MEDS: [UNRECOGNIZED DRUG - OTHER] TP SCH (21:04)
[2016-12-23] MEDS: PRAVASTATIN SODIUM 20 MG TABLET GT SCH (21:04)
[2016-12-23] MEDS: CLOTRIMAZOLE 1% 15 GM TUBE TP SCH (21:04)
[2016-12-23] MEDS: MAGNESIUM HYDROXIDE 30 ML UDC GT PRN (21:24)
[2016-12-24] MEDS: FIBERSOURCE HN 1,000 ML BOTTLE GT PRN (02:11)
[2016-12-24] MEDS: ALBUTEROL HALF STRENGTH 1.25 MG/3 ML VIAL.NEB NEB SCH ×4 (02:18→19:37)
[2016-12-24] MEDS: CHLORHEXIDINE GLUCONATE 15 ML UDC MM SCH ×2 (05:12→17:03)
[2016-12-24 07:40] VITALS: BP 125/77
[2016-12-24] MEDS: VALACYCLOVIR HCL 500 MG TABLET PEG SCH (09:00)
[2016-12-24] MEDS: POTASSIUM CHLORIDE 10 MEQ GT SCH (09:00)
[2016-12-24] MEDS: FINASTERIDE (5 MG) 5 MG TABLET GT SCH (09:00)
[2016-12-24] MEDS: HYDROGEN PEROXIDE 480 ML BOTTLE TP SCH ×2 (09:00→21:11)
[2016-12-24] MEDS: DOXAZOSIN MESYLATE 8 MG GT SCH (09:00)
[2016-12-24] MEDS: PROSOURCE / PROSTAT (PYXIS) 30 ML UDC GT SCH (09:00)
[2016-12-24] MEDS: Z GUARD REMEDY 4 OZ OINT TP SCH ×2 (09:00→21:11)
[2016-12-24] MEDS: VITAMINS A AND D 56.7 GM TUBE TP SCH ×4 (09:00→21:11)
[2016-12-24] MEDS: RIFAXIMIN 550 MG TABLET PO SCH ×2 (09:00→17:03)
[2016-12-24] MEDS: CHOLECALCIFEROL (VITAMIN D 3) 400 UNIT TABLET GT SCH ×2 (09:00→21:11)
[2016-12-24] MEDS: ASPIRIN 81 MG TAB.CHEW GT SCH (09:00)
[2016-12-24] MEDS: PRUNE JUICE GT SCH (12:49)
[2016-12-24] MEDS: HYDROCODONE/APAP 7.5/325MG 1 EACH TABLET GT PRN (19:31)
[2016-12-24] MEDS: PRAVASTATIN SODIUM 20 MG TABLET GT SCH (21:11)
[2016-12-24] MEDS: METHYLNALTREXONE BROMIDE 12 MG/0.6 ML VIAL SQ SCH (21:11)
[2016-12-24] MEDS: LATANOPROST EYE DROP 0.005% 2.5 ML BOTTLE EACHEYE SCH (21:11)
[2016-12-24] MEDS: CLOTRIMAZOLE 1% 15 GM TUBE TP SCH (21:12)
[2016-12-24 21:15] VITALS: BP 126/74
[2016-12-24] MEDS: [UNRECOGNIZED DRUG - OTHER] TP SCH (22:48)
[2016-12-24] MEDS: CICLOPIROX TP SCH (22:48)
[2016-12-25] MEDS: FIBERSOURCE HN 1,000 ML BOTTLE GT PRN (01:59)
[2016-12-25] MEDS: ALBUTEROL HALF STRENGTH 1.25 MG/3 ML VIAL.NEB NEB SCH ×4 (02:02→20:26)
[2016-12-25] MEDS: CHLORHEXIDINE GLUCONATE 15 ML UDC MM SCH ×2 (06:15→17:44)
[2016-12-25 07:40] VITALS: BP 113/77
[2016-12-25] MEDS: ASPIRIN 81 MG TAB.CHEW GT SCH (09:00)
[2016-12-25] MEDS: HYDROGEN PEROXIDE 480 ML BOTTLE TP SCH ×2 (09:00→21:13)
[2016-12-25] MEDS: VITAMINS A AND D 56.7 GM TUBE TP SCH ×4 (09:00→21:13)
[2016-12-25] MEDS: RIFAXIMIN 550 MG TABLET PO SCH ×2 (09:00→17:47)
[2016-12-25] MEDS: Z GUARD REMEDY 4 OZ OINT TP SCH ×2 (09:00→21:13)
[2016-12-25] MEDS: DOXAZOSIN MESYLATE 8 MG GT SCH (09:00)
[2016-12-25] MEDS: FINASTERIDE (5 MG) 5 MG TABLET GT SCH (09:00)
[2016-12-25] MEDS: PROSOURCE / PROSTAT (PYXIS) 30 ML UDC GT SCH (09:00)
[2016-12-25] MEDS: CHOLECALCIFEROL (VITAMIN D 3) 400 UNIT TABLET GT SCH ×2 (09:00→21:13)
[2016-12-25] MEDS: VALACYCLOVIR HCL 500 MG TABLET PEG SCH (09:00)
[2016-12-25] MEDS: POTASSIUM CHLORIDE 10 MEQ GT SCH (09:00)
[2016-12-25] MEDS: PRUNE JUICE GT SCH (12:00)
[2016-12-25 19:58] VITALS: BP 121/91
[2016-12-25] MEDS: METHYLNALTREXONE BROMIDE 12 MG/0.6 ML VIAL SQ SCH (21:13)
[2016-12-25] MEDS: PRAVASTATIN SODIUM 20 MG TABLET GT SCH (21:13)
[2016-12-25] MEDS: LATANOPROST EYE DROP 0.005% 2.5 ML BOTTLE EACHEYE SCH (21:13)
[2016-12-25] MEDS: CICLOPIROX TP SCH (21:14)
[2016-12-25] MEDS: CLOTRIMAZOLE 1% 15 GM TUBE TP SCH (21:14)
[2016-12-25] MEDS: [UNRECOGNIZED DRUG - OTHER] TP SCH (21:14)
[2016-12-26] MEDS: FIBERSOURCE HN 1,000 ML BOTTLE GT PRN (01:18)
[2016-12-26] MEDS: ALBUTEROL HALF STRENGTH 1.25 MG/3 ML VIAL.NEB NEB SCH ×4 (01:22→19:39)
[2016-12-26] MEDS: HYDROCODONE/APAP 7.5/325MG 1 EACH TABLET GT PRN (04:38)
[2016-12-26] MEDS: CHLORHEXIDINE GLUCONATE 15 ML UDC MM SCH ×2 (05:46→17:18)
--- NOTE | 2016-12-26 07:30 | NUR ---
NOTES RECEIVED PATIENT IN BED, AWAKE, EYES OPEN. ON TRACH WITH COOL AEROSOL AT 28%, BREATHING EVEN AND NON LABORED. ON GTUBE FEEDING FIBERSOURCE AT 60ML/HR, MAINTAIN HOB ELEVATED. BED LOW AND LOCKED, WILL CONT TO MONITOR.
[2016-12-26 07:32] VITALS: BP 118/73
[2016-12-26 08:00] VITALS: BP 118/73
[2016-12-26] MEDS: VITAMINS A AND D 56.7 GM TUBE TP SCH ×4 (09:00→21:18)
[2016-12-26] MEDS: DOXAZOSIN MESYLATE 8 MG GT SCH (09:08)
[2016-12-26] MEDS: ASPIRIN 81 MG TAB.CHEW GT SCH (09:08)
[2016-12-26] MEDS: POTASSIUM CHLORIDE 10 MEQ GT SCH (09:09)
[2016-12-26] MEDS: PROSOURCE / PROSTAT (PYXIS) 30 ML UDC GT SCH (09:10)
[2016-12-26] MEDS: FINASTERIDE (5 MG) 5 MG TABLET GT SCH (09:10)
[2016-12-26] MEDS: CHOLECALCIFEROL (VITAMIN D 3) 400 UNIT TABLET GT SCH ×2 (09:10→21:18)
[2016-12-26] MEDS: VALACYCLOVIR HCL 500 MG TABLET PEG SCH (09:11)
[2016-12-26] MEDS: RIFAXIMIN 550 MG TABLET PO SCH ×2 (09:13→17:18)
[2016-12-26] MEDS: Z GUARD REMEDY 4 OZ OINT TP SCH ×2 (10:30→21:18)
[2016-12-26] MEDS: HYDROGEN PEROXIDE 480 ML BOTTLE TP SCH ×2 (10:30→21:18)
[2016-12-26] MEDS: PRUNE JUICE GT SCH (13:09)
--- NOTE | 2016-12-26 14:23 | NUR ---
Patient up in his wheelchair in the the room with his at the bedside. Seen and examined by Dr. Jerry rain.
--- NOTE | 2016-12-26 18:45 | NUR ---
NOTES PATIENT IN BED, NOT IN DISTRESS, REMAIN STABLE. PASSY-LUANN VALVE IN PLACE, TOLERATING WELL. WILL ENDORSE TO PBX REPAIRER RN FOR CONTINUITY OF CARE.
[2016-12-26 20:11] VITALS: BP 134/76
[2016-12-26] MEDS: CLOTRIMAZOLE 1% 15 GM TUBE TP SCH (21:18)
[2016-12-26] MEDS: METHYLNALTREXONE BROMIDE 12 MG/0.6 ML VIAL SQ SCH (21:18)
[2016-12-26] MEDS: PRAVASTATIN SODIUM 20 MG TABLET GT SCH (21:18)
[2016-12-26] MEDS: LATANOPROST EYE DROP 0.005% 2.5 ML BOTTLE EACHEYE SCH (21:18)
[2016-12-26] MEDS: [UNRECOGNIZED DRUG - OTHER] TP SCH (21:19)
[2016-12-26] MEDS: CICLOPIROX TP SCH (21:19)
[2016-12-27] MEDS: FIBERSOURCE HN 1,000 ML BOTTLE GT PRN (00:45)
[2016-12-27] MEDS: ALBUTEROL HALF STRENGTH 1.25 MG/3 ML VIAL.NEB NEB SCH ×4 (01:12→19:17)
[2016-12-27] MEDS: CHLORHEXIDINE GLUCONATE 15 ML UDC MM SCH ×2 (05:29→17:11)
--- NOTE | 2016-12-27 07:30 | NUR ---
RN NOTES RECEIVED PATIENT IN BED, AWAKE, EYES OPEN. ON TRACH WITH COOL AEROSOL AT 28%, BREATHING EVEN AND NON LABORED. NO S/S OF ANY RESPIRATORY DISTRESS OR DISCOMFORT NOTED. ON GTUBE FEEDING FIBERSOURCE AT 60ML/HR, MAINTAIN HOB ELEVATED TOLERATING WELL. BED LOW AND LOCKED, WILL CONT TO MONITOR.
[2016-12-27 07:31] VITALS: BP 119/74
[2016-12-27 08:00] VITALS: BP 119/74
[2016-12-27] MEDS: POTASSIUM CHLORIDE 10 MEQ GT SCH (09:05)
[2016-12-27] MEDS: RIFAXIMIN 550 MG TABLET PO SCH ×2 (09:05→16:46)
[2016-12-27] MEDS: VITAMINS A AND D 56.7 GM TUBE TP SCH ×4 (09:05→20:44)
[2016-12-27] MEDS: CHOLECALCIFEROL (VITAMIN D 3) 400 UNIT TABLET GT SCH ×2 (09:05→20:50)
[2016-12-27] MEDS: HYDROGEN PEROXIDE 480 ML BOTTLE TP SCH ×2 (09:05→20:44)
[2016-12-27] MEDS: Z GUARD REMEDY 4 OZ OINT TP SCH ×2 (09:05→20:44)
[2016-12-27] MEDS: FINASTERIDE (5 MG) 5 MG TABLET GT SCH (09:05)
[2016-12-27] MEDS: VALACYCLOVIR HCL 500 MG TABLET PEG SCH (09:05)
[2016-12-27] MEDS: PROSOURCE / PROSTAT (PYXIS) 30 ML UDC GT SCH (09:05)
[2016-12-27] MEDS: DOXAZOSIN MESYLATE 8 MG GT SCH (09:05)
[2016-12-27] MEDS: ASPIRIN 81 MG TAB.CHEW GT SCH (09:05)
[2016-12-27] MEDS: HYDROCODONE/APAP 7.5/325MG 1 EACH TABLET GT PRN ×2 (10:38→17:16)
[2016-12-27] MEDS: PRUNE JUICE GT SCH (12:05)
--- NOTE | 2016-12-27 13:00 | NUR ---
UP IN THE WHEELCHAIR WITH HIS DAUGHTER AT BEDSIDE.
--- NOTE | 2016-12-27 18:30 | NUR ---
RN NOTES ALL NEEDS ATTENDED AND ANTICIPATED. STABLE THE WHOLE SHIFT. ENDORSED TO INCOMING SHIFT FOR CONTINUITY OF CARE.
[2016-12-27 20:00] VITALS: BP 125/75
[2016-12-27] MEDS: METHYLNALTREXONE BROMIDE 12 MG/0.6 ML VIAL SQ SCH (20:44)
[2016-12-27] MEDS: PRAVASTATIN SODIUM 20 MG TABLET GT SCH (22:13)
[2016-12-27] MEDS: [UNRECOGNIZED DRUG - OTHER] TP SCH (22:13)
[2016-12-27] MEDS: CLOTRIMAZOLE 1% 15 GM TUBE TP SCH (22:13)
[2016-12-27] MEDS: LATANOPROST EYE DROP 0.005% 2.5 ML BOTTLE EACHEYE SCH (22:13)
[2016-12-27] MEDS: CICLOPIROX TP SCH (22:13)
[2016-12-28] MEDS: ALBUTEROL HALF STRENGTH 1.25 MG/3 ML VIAL.NEB NEB SCH ×4 (01:03→20:25)
[2016-12-28] MEDS: CHLORHEXIDINE GLUCONATE 15 ML UDC MM SCH ×2 (05:45→17:17)
[2016-12-28 07:54] VITALS: BP 109/73
[2016-12-28] MEDS: DOXAZOSIN MESYLATE 8 MG GT SCH (08:40)
[2016-12-28] MEDS: POTASSIUM CHLORIDE 10 MEQ GT SCH (08:40)
[2016-12-28] MEDS: FINASTERIDE (5 MG) 5 MG TABLET GT SCH (08:40)
[2016-12-28] MEDS: PROSOURCE / PROSTAT (PYXIS) 30 ML UDC GT SCH (08:40)
[2016-12-28] MEDS: ASPIRIN 81 MG TAB.CHEW GT SCH (08:40)
[2016-12-28] MEDS: Z GUARD REMEDY 4 OZ OINT TP SCH ×2 (08:41→20:36)
[2016-12-28] MEDS: VITAMINS A AND D 56.7 GM TUBE TP SCH ×4 (08:41→20:41)
[2016-12-28] MEDS: VALACYCLOVIR HCL 500 MG TABLET PEG SCH (08:41)
[2016-12-28] MEDS: CHOLECALCIFEROL (VITAMIN D 3) 400 UNIT TABLET GT SCH ×2 (08:41→20:35)
[2016-12-28] MEDS: RIFAXIMIN 550 MG TABLET PO SCH ×2 (08:41→17:17)
[2016-12-28] MEDS: HYDROGEN PEROXIDE 480 ML BOTTLE TP SCH ×2 (08:41→20:36)
[2016-12-28] MEDS: PRUNE JUICE GT SCH (11:59)
[2016-12-28] MEDS: METHYLNALTREXONE BROMIDE 12 MG/0.6 ML VIAL SQ SCH (20:35)
[2016-12-28] MEDS: PRAVASTATIN SODIUM 20 MG TABLET GT SCH (21:50)
[2016-12-28] MEDS: CLOTRIMAZOLE 1% 15 GM TUBE TP SCH (21:50)
[2016-12-28] MEDS: [UNRECOGNIZED DRUG - OTHER] TP SCH (21:51)
[2016-12-28] MEDS: CICLOPIROX TP SCH (21:51)
[2016-12-28] MEDS: LATANOPROST EYE DROP 0.005% 2.5 ML BOTTLE EACHEYE SCH (22:00)
[2016-12-29] MEDS: ALBUTEROL HALF STRENGTH 1.25 MG/3 ML VIAL.NEB NEB SCH ×4 (02:06→20:29)
[2016-12-29] MEDS: CHLORHEXIDINE GLUCONATE 15 ML UDC MM SCH ×2 (05:42→17:23)
[2016-12-29 08:00] VITALS: BP 123/73
[2016-12-29] MEDS: FINASTERIDE (5 MG) 5 MG TABLET GT SCH (08:03)
[2016-12-29] MEDS: RIFAXIMIN 550 MG TABLET PO SCH ×2 (08:03→17:23)
[2016-12-29] MEDS: VALACYCLOVIR HCL 500 MG TABLET PEG SCH (08:03)
[2016-12-29] MEDS: ASPIRIN 81 MG TAB.CHEW GT SCH (08:03)
[2016-12-29] MEDS: POTASSIUM CHLORIDE 10 MEQ GT SCH (08:03)
[2016-12-29] MEDS: CHOLECALCIFEROL (VITAMIN D 3) 400 UNIT TABLET GT SCH ×2 (08:03→20:40)
[2016-12-29] MEDS: PROSOURCE / PROSTAT (PYXIS) 30 ML UDC GT SCH (08:03)
[2016-12-29] MEDS: DOXAZOSIN MESYLATE 8 MG GT SCH (08:03)
[2016-12-29] MEDS: HYDROGEN PEROXIDE 480 ML BOTTLE TP SCH ×2 (08:05→20:40)
[2016-12-29] MEDS: VITAMINS A AND D 56.7 GM TUBE TP SCH ×4 (08:05→20:40)
[2016-12-29] MEDS: Z GUARD REMEDY 4 OZ OINT TP SCH ×2 (08:05→20:40)
[2016-12-29] MEDS: PRUNE JUICE GT SCH (12:27)
--- NOTE | 2016-12-29 14:51 | NUR ---
Informed that hairdresser was coming tomorrow. stated that she will be here to help her, as she wants a haircut for the resident.
[2016-12-29 20:06] VITALS: BP 134/92
[2016-12-29] MEDS: METHYLNALTREXONE BROMIDE 12 MG/0.6 ML VIAL SQ SCH (20:40)
[2016-12-29] MEDS: CLOTRIMAZOLE 1% 15 GM TUBE TP SCH (21:05)
[2016-12-29] MEDS: LATANOPROST EYE DROP 0.005% 2.5 ML BOTTLE EACHEYE SCH (21:05)
[2016-12-29] MEDS: PRAVASTATIN SODIUM 20 MG TABLET GT SCH (21:05)
[2016-12-29] MEDS: [UNRECOGNIZED DRUG - OTHER] TP SCH (21:06)
[2016-12-29] MEDS: CICLOPIROX TP SCH (21:06)
[2016-12-30] MEDS: ALBUTEROL HALF STRENGTH 1.25 MG/3 ML VIAL.NEB NEB SCH ×4 (01:37→19:27)
[2016-12-30] MEDS: HYDROCODONE/APAP 7.5/325MG 1 EACH TABLET GT PRN (02:30)
[2016-12-30] MEDS: CHLORHEXIDINE GLUCONATE 15 ML UDC MM SCH ×2 (06:41→18:00)
[2016-12-30 08:09] VITALS: BP 125/73
[2016-12-30] MEDS: POTASSIUM CHLORIDE 10 MEQ GT SCH (08:52)
[2016-12-30] MEDS: CHOLECALCIFEROL (VITAMIN D 3) 400 UNIT TABLET GT SCH ×2 (08:52→21:07)
[2016-12-30] MEDS: ASPIRIN 81 MG TAB.CHEW GT SCH (08:52)
[2016-12-30] MEDS: PROSOURCE / PROSTAT (PYXIS) 30 ML UDC GT SCH (08:52)
[2016-12-30] MEDS: FINASTERIDE (5 MG) 5 MG TABLET GT SCH (08:52)
[2016-12-30] MEDS: DOXAZOSIN MESYLATE 8 MG GT SCH (08:52)
[2016-12-30] MEDS: VITAMINS A AND D 56.7 GM TUBE TP SCH ×4 (08:53→21:07)
[2016-12-30] MEDS: RIFAXIMIN 550 MG TABLET PO SCH ×2 (08:53→17:00)
[2016-12-30] MEDS: Z GUARD REMEDY 4 OZ OINT TP SCH ×2 (08:53→21:07)
[2016-12-30] MEDS: VALACYCLOVIR HCL 500 MG TABLET PEG SCH (08:53)
[2016-12-30] MEDS: HYDROGEN PEROXIDE 480 ML BOTTLE TP SCH ×2 (08:53→21:07)
[2016-12-30] MEDS: ACETAMINOPHEN 650 MG/20 ML UDC- FOR SA PATIENTS ONLY PO PRN (10:02)
--- NOTE | 2016-12-30 11:48 | NUR ---
Resident had his hair cut by Elizabeth (hairdresser).
[2016-12-30] MEDS: PRUNE JUICE GT SCH (12:42)
[2016-12-30] MEDS: BISACODYL SUPP (10 MG) 10 MG/SUPP.RECT SUPP.RECT RC PRN (18:01)
[2016-12-30 20:01] VITALS: BP 127/82
[2016-12-30] MEDS: METHYLNALTREXONE BROMIDE 12 MG/0.6 ML VIAL SQ SCH (21:07)
[2016-12-30] MEDS: LATANOPROST EYE DROP 0.005% 2.5 ML BOTTLE EACHEYE SCH (21:07)
[2016-12-30] MEDS: PRAVASTATIN SODIUM 20 MG TABLET GT SCH (21:07)
[2016-12-30] MEDS: CLOTRIMAZOLE 1% 15 GM TUBE TP SCH (21:08)
[2016-12-30] MEDS: CICLOPIROX TP SCH (21:09)
[2016-12-30] MEDS: [UNRECOGNIZED DRUG - OTHER] TP SCH (21:09)
[2016-12-31] MEDS: ALBUTEROL HALF STRENGTH 1.25 MG/3 ML VIAL.NEB NEB SCH ×4 (02:12→19:46)
[2016-12-31] MEDS: CHLORHEXIDINE GLUCONATE 15 ML UDC MM SCH ×2 (05:59→17:54)
[2016-12-31] MEDS: FIBERSOURCE HN 1,000 ML BOTTLE GT PRN (06:37)
[2016-12-31 08:04] VITALS: BP 126/71
[2016-12-31] MEDS: ASPIRIN 81 MG TAB.CHEW GT SCH (08:37)
[2016-12-31] MEDS: POTASSIUM CHLORIDE 10 MEQ GT SCH (08:38)
[2016-12-31] MEDS: FINASTERIDE (5 MG) 5 MG TABLET GT SCH (08:38)
[2016-12-31] MEDS: RIFAXIMIN 550 MG TABLET PO SCH ×2 (08:38→17:54)
[2016-12-31] MEDS: VALACYCLOVIR HCL 500 MG TABLET PEG SCH (08:38)
[2016-12-31] MEDS: CHOLECALCIFEROL (VITAMIN D 3) 400 UNIT TABLET GT SCH ×2 (08:38→21:19)
[2016-12-31] MEDS: DOXAZOSIN MESYLATE 8 MG GT SCH (08:38)
[2016-12-31] MEDS: PROSOURCE / PROSTAT (PYXIS) 30 ML UDC GT SCH (08:38)
[2016-12-31] MEDS: VITAMINS A AND D 56.7 GM TUBE TP SCH ×4 (11:00→21:20)
[2016-12-31] MEDS: HYDROGEN PEROXIDE 480 ML BOTTLE TP SCH ×2 (11:00→21:20)
[2016-12-31] MEDS: Z GUARD REMEDY 4 OZ OINT TP SCH ×2 (11:00→21:20)
[2016-12-31] MEDS: PRUNE JUICE GT SCH (12:00)
[2016-12-31 20:08] VITALS: BP 126/81
[2016-12-31] MEDS: [UNRECOGNIZED DRUG - OTHER] TP SCH (21:20)
[2016-12-31] MEDS: PRAVASTATIN SODIUM 20 MG TABLET GT SCH (21:20)
[2016-12-31] MEDS: LATANOPROST EYE DROP 0.005% 2.5 ML BOTTLE EACHEYE SCH (21:20)
[2016-12-31] MEDS: CLOTRIMAZOLE 1% 15 GM TUBE TP SCH (21:20)
[2016-12-31] MEDS: CICLOPIROX TP SCH (21:20)
[2016-12-31] MEDS: METHYLNALTREXONE BROMIDE 12 MG/0.6 ML VIAL SQ SCH (21:20)
[2016-12-31] MEDS: HYDROCODONE/APAP 7.5/325MG 1 EACH TABLET GT PRN (21:29)
[2017-01-01] MEDS: ALBUTEROL HALF STRENGTH 1.25 MG/3 ML VIAL.NEB NEB SCH ×4 (02:07→20:22)
[2017-01-01] MEDS: CHLORHEXIDINE GLUCONATE 15 ML UDC MM SCH ×2 (05:29→17:50)
[2017-01-01] MEDS: HYDROCODONE/APAP 7.5/325MG 1 EACH TABLET GT PRN (05:30)
[2017-01-01] MEDS: FIBERSOURCE HN 1,000 ML BOTTLE GT PRN (06:29)
[2017-01-01] MEDS: POTASSIUM CHLORIDE 10 MEQ GT SCH (08:24)
[2017-01-01] MEDS: ASPIRIN 81 MG TAB.CHEW GT SCH (08:24)
[2017-01-01] MEDS: VALACYCLOVIR HCL 500 MG TABLET PEG SCH (08:24)
[2017-01-01] MEDS: RIFAXIMIN 550 MG TABLET PO SCH ×2 (08:24→17:50)
[2017-01-01] MEDS: DOXAZOSIN MESYLATE 8 MG GT SCH (08:24)
[2017-01-01] MEDS: FINASTERIDE (5 MG) 5 MG TABLET GT SCH (08:24)
[2017-01-01] MEDS: CHOLECALCIFEROL (VITAMIN D 3) 400 UNIT TABLET GT SCH ×2 (08:24→21:20)
[2017-01-01 08:35] VITALS: BP 118/69
[2017-01-01] MEDS: PROSOURCE / PROSTAT (PYXIS) 30 ML UDC GT SCH (09:00)
[2017-01-01] MEDS: Z GUARD REMEDY 4 OZ OINT TP SCH ×2 (10:00→21:20)
[2017-01-01] MEDS: VITAMINS A AND D 56.7 GM TUBE TP SCH ×4 (10:00→21:21)
[2017-01-01] MEDS: HYDROGEN PEROXIDE 480 ML BOTTLE TP SCH ×2 (10:00→21:20)
[2017-01-01] MEDS: PRUNE JUICE GT SCH (12:00)
--- NOTE | 2017-01-01 14:02 | NUR ---
IDT meeting held, reviewed current orders, medication and treatment. NNO order given.
[2017-01-01 19:59] VITALS: BP 129/70
[2017-01-01] MEDS: METHYLNALTREXONE BROMIDE 12 MG/0.6 ML VIAL SQ SCH (21:20)
[2017-01-01] MEDS: PRAVASTATIN SODIUM 20 MG TABLET GT SCH (21:21)
[2017-01-01] MEDS: CICLOPIROX TP SCH (21:21)
[2017-01-01] MEDS: [UNRECOGNIZED DRUG - OTHER] TP SCH (21:21)
[2017-01-01] MEDS: LATANOPROST EYE DROP 0.005% 2.5 ML BOTTLE EACHEYE SCH (21:21)
[2017-01-02] MEDS: ALBUTEROL HALF STRENGTH 1.25 MG/3 ML VIAL.NEB NEB SCH ×4 (02:02→19:54)
[2017-01-02] MEDS: CHLORHEXIDINE GLUCONATE 15 ML UDC MM SCH ×2 (05:33→17:50)
[2017-01-02] MEDS: FIBERSOURCE HN 1,000 ML BOTTLE GT PRN (05:38)
[2017-01-02 08:00] VITALS: BP 119/81
[2017-01-02] MEDS: RIFAXIMIN 550 MG TABLET PO SCH ×2 (08:47→17:50)
[2017-01-02] MEDS: FINASTERIDE (5 MG) 5 MG TABLET GT SCH (08:47)
[2017-01-02] MEDS: PROSOURCE / PROSTAT (PYXIS) 30 ML UDC GT SCH (08:47)
[2017-01-02] MEDS: VALACYCLOVIR HCL 500 MG TABLET PEG SCH (08:47)
[2017-01-02] MEDS: ASPIRIN 81 MG TAB.CHEW GT SCH (08:47)
[2017-01-02] MEDS: CHOLECALCIFEROL (VITAMIN D 3) 400 UNIT TABLET GT SCH ×2 (08:47→21:09)
[2017-01-02] MEDS: DOXAZOSIN MESYLATE 8 MG GT SCH (08:47)
[2017-01-02] MEDS: POTASSIUM CHLORIDE 10 MEQ GT SCH (08:47)
[2017-01-02] MEDS: HYDROGEN PEROXIDE 480 ML BOTTLE TP SCH ×2 (11:00→21:09)
[2017-01-02] MEDS: VITAMINS A AND D 56.7 GM TUBE TP SCH ×4 (11:00→21:10)
[2017-01-02] MEDS: Z GUARD REMEDY 4 OZ OINT TP SCH ×2 (11:00→21:09)
[2017-01-02] MEDS: PRUNE JUICE GT SCH (12:00)
[2017-01-02 20:04] VITALS: BP 117/76
[2017-01-02] MEDS: METHYLNALTREXONE BROMIDE 12 MG/0.6 ML VIAL SQ SCH (21:09)
[2017-01-02] MEDS: LATANOPROST EYE DROP 0.005% 2.5 ML BOTTLE EACHEYE SCH (21:10)
[2017-01-02] MEDS: [UNRECOGNIZED DRUG - OTHER] TP SCH (21:10)
[2017-01-02] MEDS: PRAVASTATIN SODIUM 20 MG TABLET GT SCH (21:10)
[2017-01-02] MEDS: CICLOPIROX TP SCH (21:10)
[2017-01-03] MEDS: ALBUTEROL HALF STRENGTH 1.25 MG/3 ML VIAL.NEB NEB SCH ×4 (01:29→19:08)
[2017-01-03] MEDS: CHLORHEXIDINE GLUCONATE 15 ML UDC MM SCH ×2 (06:26→17:14)
[2017-01-03] MEDS: RIFAXIMIN 550 MG TABLET PO SCH ×2 (08:25→17:14)
[2017-01-03] MEDS: POTASSIUM CHLORIDE 10 MEQ GT SCH (08:25)
[2017-01-03] MEDS: PROSOURCE / PROSTAT (PYXIS) 30 ML UDC GT SCH (08:25)
[2017-01-03] MEDS: FINASTERIDE (5 MG) 5 MG TABLET GT SCH (08:25)
[2017-01-03] MEDS: DOXAZOSIN MESYLATE 8 MG GT SCH (08:25)
[2017-01-03] MEDS: ASPIRIN 81 MG TAB.CHEW GT SCH (08:25)
[2017-01-03] MEDS: CHOLECALCIFEROL (VITAMIN D 3) 400 UNIT TABLET GT SCH ×2 (08:25→20:49)
[2017-01-03] MEDS: VALACYCLOVIR HCL 500 MG TABLET PEG SCH (08:25)
[2017-01-03] MEDS: VITAMINS A AND D 56.7 GM TUBE TP SCH ×4 (08:25→20:49)
[2017-01-03] MEDS: Z GUARD REMEDY 4 OZ OINT TP SCH ×2 (08:25→20:49)
[2017-01-03] MEDS: HYDROGEN PEROXIDE 480 ML BOTTLE TP SCH ×2 (08:25→20:49)
[2017-01-03] MEDS: PRUNE JUICE GT SCH (12:00)
[2017-01-03] MEDS: HYDROCODONE/APAP 7.5/325MG 1 EACH TABLET GT PRN (17:00)
[2017-01-03 20:05] VITALS: BP 131/80
[2017-01-03] MEDS: METHYLNALTREXONE BROMIDE 12 MG/0.6 ML VIAL SQ SCH (20:49)
[2017-01-03] MEDS: CICLOPIROX TP SCH (22:48)
[2017-01-03] MEDS: PRAVASTATIN SODIUM 20 MG TABLET GT SCH (22:48)
[2017-01-03] MEDS: [UNRECOGNIZED DRUG - OTHER] TP SCH (22:48)
[2017-01-03] MEDS: LATANOPROST EYE DROP 0.005% 2.5 ML BOTTLE EACHEYE SCH (22:48)
[2017-01-04] MEDS: HYDROCODONE/APAP 7.5/325MG 1 EACH TABLET GT PRN ×2 (00:13→19:45)
[2017-01-04] MEDS: ALBUTEROL HALF STRENGTH 1.25 MG/3 ML VIAL.NEB NEB SCH ×4 (01:30→20:29)
[2017-01-04] MEDS: FIBERSOURCE HN 1,000 ML BOTTLE GT PRN (05:24)
[2017-01-04] MEDS: CHLORHEXIDINE GLUCONATE 15 ML UDC MM SCH ×2 (05:24→17:55)
[2017-01-04 09:28] VITALS: BP 132/80
[2017-01-04] MEDS: CHOLECALCIFEROL (VITAMIN D 3) 400 UNIT TABLET GT SCH ×2 (09:34→20:45)
[2017-01-04] MEDS: ASPIRIN 81 MG TAB.CHEW GT SCH (09:34)
[2017-01-04] MEDS: FINASTERIDE (5 MG) 5 MG TABLET GT SCH (09:34)
[2017-01-04] MEDS: PROSOURCE / PROSTAT (PYXIS) 30 ML UDC GT SCH (09:34)
[2017-01-04] MEDS: RIFAXIMIN 550 MG TABLET PO SCH ×2 (09:34→17:55)
[2017-01-04] MEDS: HYDROGEN PEROXIDE 480 ML BOTTLE TP SCH ×2 (09:34→20:45)
[2017-01-04] MEDS: POTASSIUM CHLORIDE 10 MEQ GT SCH (09:34)
[2017-01-04] MEDS: DOXAZOSIN MESYLATE 8 MG GT SCH (09:34)
[2017-01-04] MEDS: VITAMINS A AND D 56.7 GM TUBE TP SCH ×4 (09:34→20:46)
[2017-01-04] MEDS: VALACYCLOVIR HCL 500 MG TABLET PEG SCH (09:34)
[2017-01-04] MEDS: Z GUARD REMEDY 4 OZ OINT TP SCH ×2 (09:34→20:45)
[2017-01-04] MEDS: PRUNE JUICE GT SCH (12:21)
[2017-01-04 20:11] VITALS: BP 126/83
[2017-01-04] MEDS: METHYLNALTREXONE BROMIDE 12 MG/0.6 ML VIAL SQ SCH (20:45)
[2017-01-04] MEDS: LATANOPROST EYE DROP 0.005% 2.5 ML BOTTLE EACHEYE SCH (22:27)
[2017-01-04] MEDS: CICLOPIROX TP SCH (22:27)
[2017-01-04] MEDS: PRAVASTATIN SODIUM 20 MG TABLET GT SCH (22:27)
[2017-01-04] MEDS: [UNRECOGNIZED DRUG - OTHER] TP SCH (22:27)
[2017-01-05] MEDS: ALBUTEROL HALF STRENGTH 1.25 MG/3 ML VIAL.NEB NEB SCH ×4 (01:30→20:26)
[2017-01-05] MEDS: CHLORHEXIDINE GLUCONATE 15 ML UDC MM SCH ×2 (05:41→17:23)
[2017-01-05] MEDS: FIBERSOURCE HN 1,000 ML BOTTLE GT PRN (06:07)
[2017-01-05 08:00] VITALS: BP 105/67
[2017-01-05] MEDS: CHOLECALCIFEROL (VITAMIN D 3) 400 UNIT TABLET GT SCH ×2 (08:41→20:45)
[2017-01-05] MEDS: RIFAXIMIN 550 MG TABLET PO SCH ×2 (08:41→17:23)
[2017-01-05] MEDS: Z GUARD REMEDY 4 OZ OINT TP SCH ×2 (08:41→20:45)
[2017-01-05] MEDS: PROSOURCE / PROSTAT (PYXIS) 30 ML UDC GT SCH (08:41)
[2017-01-05] MEDS: ASPIRIN 81 MG TAB.CHEW GT SCH (08:41)
[2017-01-05] MEDS: VALACYCLOVIR HCL 500 MG TABLET PEG SCH (08:41)
[2017-01-05] MEDS: HYDROGEN PEROXIDE 480 ML BOTTLE TP SCH ×2 (08:41→20:45)
[2017-01-05] MEDS: FINASTERIDE (5 MG) 5 MG TABLET GT SCH (08:41)
[2017-01-05] MEDS: POTASSIUM CHLORIDE 10 MEQ GT SCH (08:41)
[2017-01-05] MEDS: VITAMINS A AND D 56.7 GM TUBE TP SCH ×4 (08:41→20:46)
[2017-01-05] MEDS: DOXAZOSIN MESYLATE 8 MG GT SCH (08:41)
[2017-01-05] MEDS: PRUNE JUICE GT SCH (12:51)
[2017-01-05 19:54] VITALS: BP 117/73
[2017-01-05] MEDS: METHYLNALTREXONE BROMIDE 12 MG/0.6 ML VIAL SQ SCH (20:45)
[2017-01-05] MEDS: [UNRECOGNIZED DRUG - OTHER] TP SCH (21:28)
[2017-01-05] MEDS: PRAVASTATIN SODIUM 20 MG TABLET GT SCH (21:28)
[2017-01-05] MEDS: CICLOPIROX TP SCH (21:28)
[2017-01-05] MEDS: LATANOPROST EYE DROP 0.005% 2.5 ML BOTTLE EACHEYE SCH (22:04)
[2017-01-06] MEDS: ALBUTEROL HALF STRENGTH 1.25 MG/3 ML VIAL.NEB NEB SCH ×4 (01:57→19:29)
[2017-01-06] MEDS: CHLORHEXIDINE GLUCONATE 15 ML UDC MM SCH ×2 (05:43→18:04)
[2017-01-06] MEDS: FIBERSOURCE HN 1,000 ML BOTTLE GT PRN (06:07)
[2017-01-06 07:34] VITALS: BP 124/67
[2017-01-06] MEDS: FINASTERIDE (5 MG) 5 MG TABLET GT SCH (08:22)
[2017-01-06] MEDS: CHOLECALCIFEROL (VITAMIN D 3) 400 UNIT TABLET GT SCH ×2 (08:22→20:40)
[2017-01-06] MEDS: PROSOURCE / PROSTAT (PYXIS) 30 ML UDC GT SCH (08:22)
[2017-01-06] MEDS: VITAMINS A AND D 56.7 GM TUBE TP SCH ×4 (08:22→20:40)
[2017-01-06] MEDS: VALACYCLOVIR HCL 500 MG TABLET PEG SCH (08:22)
[2017-01-06] MEDS: RIFAXIMIN 550 MG TABLET PO SCH ×2 (08:22→17:00)
[2017-01-06] MEDS: Z GUARD REMEDY 4 OZ OINT TP SCH ×2 (08:22→20:40)
[2017-01-06] MEDS: DOXAZOSIN MESYLATE 8 MG GT SCH (08:22)
[2017-01-06] MEDS: HYDROGEN PEROXIDE 480 ML BOTTLE TP SCH ×2 (08:22→20:40)
[2017-01-06] MEDS: POTASSIUM CHLORIDE 10 MEQ GT SCH (08:22)
[2017-01-06] MEDS: ASPIRIN 81 MG TAB.CHEW GT SCH (08:22)
[2017-01-06] MEDS: HYDROCODONE/APAP 7.5/325MG 1 EACH TABLET GT PRN (12:00)
[2017-01-06] MEDS: PRUNE JUICE GT SCH (12:38)
[2017-01-06 20:22] VITALS: BP 138/78
[2017-01-06] MEDS: METHYLNALTREXONE BROMIDE 12 MG/0.6 ML VIAL SQ SCH (20:40)
[2017-01-06] MEDS: [UNRECOGNIZED DRUG - OTHER] TP SCH (21:11)
[2017-01-06] MEDS: CICLOPIROX TP SCH (21:11)
[2017-01-06] MEDS: LATANOPROST EYE DROP 0.005% 2.5 ML BOTTLE EACHEYE SCH (21:11)
[2017-01-06] MEDS: PRAVASTATIN SODIUM 20 MG TABLET GT SCH (21:11)
[2017-01-07] MEDS: ALBUTEROL HALF STRENGTH 1.25 MG/3 ML VIAL.NEB NEB SCH ×4 (02:11→20:24)
[2017-01-07] MEDS: CHLORHEXIDINE GLUCONATE 15 ML UDC MM SCH ×2 (05:13→17:14)
[2017-01-07] MEDS: FIBERSOURCE HN 1,000 ML BOTTLE GT PRN (05:17)
--- NOTE | 2017-01-07 07:00 | NUR ---
RN NOTES RECIEVED RESIDENT ON BED , TOLERATING TF WELL, CONTINUE TO PROVED CARE .
[2017-01-07 07:32] VITALS: BP 116/69
[2017-01-07] MEDS: ASPIRIN 81 MG TAB.CHEW GT SCH (09:23)
[2017-01-07] MEDS: DOXAZOSIN MESYLATE 8 MG GT SCH (09:23)
[2017-01-07] MEDS: POTASSIUM CHLORIDE 10 MEQ GT SCH (09:24)
[2017-01-07] MEDS: VALACYCLOVIR HCL 500 MG TABLET PEG SCH (09:25)
[2017-01-07] MEDS: FINASTERIDE (5 MG) 5 MG TABLET GT SCH (09:25)
[2017-01-07] MEDS: PROSOURCE / PROSTAT (PYXIS) 30 ML UDC GT SCH (09:25)
[2017-01-07] MEDS: CHOLECALCIFEROL (VITAMIN D 3) 400 UNIT TABLET GT SCH ×2 (09:25→20:42)
[2017-01-07] MEDS: RIFAXIMIN 550 MG TABLET PO SCH ×2 (09:30→17:12)
[2017-01-07] MEDS: HYDROGEN PEROXIDE 480 ML BOTTLE TP SCH ×2 (09:30→20:43)
[2017-01-07] MEDS: VITAMINS A AND D 56.7 GM TUBE TP SCH ×4 (09:30→20:43)
[2017-01-07] MEDS: Z GUARD REMEDY 4 OZ OINT TP SCH ×2 (09:30→20:43)
[2017-01-07] MEDS: PRUNE JUICE GT SCH (12:50)
[2017-01-07 19:38] VITALS: BP 131/78
[2017-01-07] MEDS: METHYLNALTREXONE BROMIDE 12 MG/0.6 ML VIAL SQ SCH (20:42)
[2017-01-07] MEDS: PRAVASTATIN SODIUM 20 MG TABLET GT SCH (21:14)
[2017-01-07] MEDS: LATANOPROST EYE DROP 0.005% 2.5 ML BOTTLE EACHEYE SCH (21:14)
[2017-01-07] MEDS: CICLOPIROX TP SCH (21:14)
[2017-01-07] MEDS: [UNRECOGNIZED DRUG - OTHER] TP SCH (21:14)
[2017-01-08] MEDS: ALBUTEROL HALF STRENGTH 1.25 MG/3 ML VIAL.NEB NEB SCH ×4 (02:15→19:15)
[2017-01-08] MEDS: FIBERSOURCE HN 1,000 ML BOTTLE GT PRN (05:13)
[2017-01-08] MEDS: CHLORHEXIDINE GLUCONATE 15 ML UDC MM SCH ×2 (05:13→17:23)
[2017-01-08] MEDS: MAGNESIUM HYDROXIDE 30 ML UDC GT PRN (05:13)
[2017-01-08 08:11] VITALS: BP 124/74
[2017-01-08] MEDS: ASPIRIN 81 MG TAB.CHEW GT SCH (08:55)
[2017-01-08] MEDS: DOXAZOSIN MESYLATE 8 MG GT SCH (08:55)
[2017-01-08] MEDS: POTASSIUM CHLORIDE 10 MEQ GT SCH (08:56)
[2017-01-08] MEDS: FINASTERIDE (5 MG) 5 MG TABLET GT SCH (08:56)
[2017-01-08] MEDS: RIFAXIMIN 550 MG TABLET PO SCH ×2 (08:58→17:23)
[2017-01-08] MEDS: VALACYCLOVIR HCL 500 MG TABLET PEG SCH (08:58)
[2017-01-08] MEDS: PROSOURCE / PROSTAT (PYXIS) 30 ML UDC GT SCH (08:58)
[2017-01-08] MEDS: CHOLECALCIFEROL (VITAMIN D 3) 400 UNIT TABLET GT SCH ×2 (08:58→20:46)
[2017-01-08] MEDS: VITAMINS A AND D 56.7 GM TUBE TP SCH ×4 (09:00→20:47)
[2017-01-08] MEDS: Z GUARD REMEDY 4 OZ OINT TP SCH ×2 (09:00→20:47)
[2017-01-08] MEDS: HYDROGEN PEROXIDE 480 ML BOTTLE TP SCH ×2 (09:00→20:46)
[2017-01-08] MEDS: HYDROCODONE/APAP 7.5/325MG 1 EACH TABLET GT PRN (10:20)
[2017-01-08] MEDS: PRUNE JUICE GT SCH (12:00)
[2017-01-08] MEDS: METHYLNALTREXONE BROMIDE 12 MG/0.6 ML VIAL SQ SCH (20:46)
[2017-01-08 20:58] VITALS: BP 122/77
[2017-01-08] MEDS: PRAVASTATIN SODIUM 20 MG TABLET GT SCH (22:41)
[2017-01-08] MEDS: LATANOPROST EYE DROP 0.005% 2.5 ML BOTTLE EACHEYE SCH (22:41)
[2017-01-08] MEDS: [UNRECOGNIZED DRUG - OTHER] TP SCH (22:42)
[2017-01-08] MEDS: CICLOPIROX TP SCH (22:42)
--- NOTE | 2017-01-09 01:40 | NUR ---
RN NOTES: NOTED 250 ML RESIDUAL FROM GTUBE. HELD FEEDING FOR AN HOUR AND HELD THE WATER FLUSHING AT THIS TIME. WILL RECHECK IN AN HOUR.
[2017-01-09] MEDS: ALBUTEROL HALF STRENGTH 1.25 MG/3 ML VIAL.NEB NEB SCH ×4 (02:12→18:49)
[2017-01-09] MEDS: CHLORHEXIDINE GLUCONATE 15 ML UDC MM SCH ×2 (06:40→17:40)
[2017-01-09] MEDS: FIBERSOURCE HN 1,000 ML BOTTLE GT PRN (06:40)
[2017-01-09 07:42] VITALS: BP 133/90
[2017-01-09] MEDS: POTASSIUM CHLORIDE 10 MEQ GT SCH (08:29)
[2017-01-09] MEDS: FINASTERIDE (5 MG) 5 MG TABLET GT SCH (08:29)
[2017-01-09] MEDS: PROSOURCE / PROSTAT (PYXIS) 30 ML UDC GT SCH (08:29)
[2017-01-09] MEDS: VALACYCLOVIR HCL 500 MG TABLET PEG SCH (08:29)
[2017-01-09] MEDS: RIFAXIMIN 550 MG TABLET PO SCH ×2 (08:29→17:40)
[2017-01-09] MEDS: DOXAZOSIN MESYLATE 8 MG GT SCH (08:29)
[2017-01-09] MEDS: ASPIRIN 81 MG TAB.CHEW GT SCH (08:29)
[2017-01-09] MEDS: HYDROGEN PEROXIDE 480 ML BOTTLE TP SCH ×2 (08:29→21:01)
[2017-01-09] MEDS: CHOLECALCIFEROL (VITAMIN D 3) 400 UNIT TABLET GT SCH ×2 (08:29→21:01)
[2017-01-09] MEDS: Z GUARD REMEDY 4 OZ OINT TP SCH ×2 (08:30→21:01)
[2017-01-09] MEDS: VITAMINS A AND D 56.7 GM TUBE TP SCH ×4 (08:30→21:01)
[2017-01-09] MEDS: PRUNE JUICE GT SCH (12:21)
--- NOTE | 2017-01-09 13:44 | NUR ---
Seen and examined by Dr. Edwards, NNO given.
[2017-01-09 19:53] VITALS: BP 131/79
[2017-01-09] MEDS: CICLOPIROX TP SCH (21:01)
[2017-01-09] MEDS: PRAVASTATIN SODIUM 20 MG TABLET GT SCH (21:01)
[2017-01-09] MEDS: [UNRECOGNIZED DRUG - OTHER] TP SCH (21:01)
[2017-01-09] MEDS: LATANOPROST EYE DROP 0.005% 2.5 ML BOTTLE EACHEYE SCH (21:01)
[2017-01-09] MEDS: METHYLNALTREXONE BROMIDE 12 MG/0.6 ML VIAL SQ SCH (21:01)
[2017-01-09] MEDS: HYDROCODONE/APAP 7.5/325MG 1 EACH TABLET GT PRN (23:58)
[2017-01-10] MEDS: ALBUTEROL HALF STRENGTH 1.25 MG/3 ML VIAL.NEB NEB SCH ×4 (02:18→20:09)
[2017-01-10] MEDS: CHLORHEXIDINE GLUCONATE 15 ML UDC MM SCH ×2 (05:24→17:15)
[2017-01-10] MEDS: FIBERSOURCE HN 1,000 ML BOTTLE GT PRN (05:24)
[2017-01-10 07:43] VITALS: BP 114/64
[2017-01-10] MEDS: VALACYCLOVIR HCL 500 MG TABLET PEG SCH (09:07)
[2017-01-10] MEDS: VITAMINS A AND D 56.7 GM TUBE TP SCH ×4 (09:07→21:24)
[2017-01-10] MEDS: PROSOURCE / PROSTAT (PYXIS) 30 ML UDC GT SCH (09:07)
[2017-01-10] MEDS: CHOLECALCIFEROL (VITAMIN D 3) 400 UNIT TABLET GT SCH ×2 (09:07→21:23)
[2017-01-10] MEDS: HYDROGEN PEROXIDE 480 ML BOTTLE TP SCH ×2 (09:07→21:23)
[2017-01-10] MEDS: DOXAZOSIN MESYLATE 8 MG GT SCH (09:07)
[2017-01-10] MEDS: FINASTERIDE (5 MG) 5 MG TABLET GT SCH (09:07)
[2017-01-10] MEDS: ASPIRIN 81 MG TAB.CHEW GT SCH (09:07)
[2017-01-10] MEDS: Z GUARD REMEDY 4 OZ OINT TP SCH ×2 (09:07→21:23)
[2017-01-10] MEDS: POTASSIUM CHLORIDE 10 MEQ GT SCH (09:07)
[2017-01-10] MEDS: RIFAXIMIN 550 MG TABLET PO SCH ×2 (09:07→17:15)
[2017-01-10] MEDS: HYDROCODONE/APAP 7.5/325MG 1 EACH TABLET GT PRN (12:00)
[2017-01-10] MEDS: PRUNE JUICE GT SCH (12:00)
[2017-01-10 19:39] VITALS: BP 136/72
[2017-01-10] MEDS: METHYLNALTREXONE BROMIDE 12 MG/0.6 ML VIAL SQ SCH (21:23)
[2017-01-10] MEDS: LATANOPROST EYE DROP 0.005% 2.5 ML BOTTLE EACHEYE SCH (21:24)
[2017-01-10] MEDS: PRAVASTATIN SODIUM 20 MG TABLET GT SCH (21:24)
[2017-01-10] MEDS: [UNRECOGNIZED DRUG - OTHER] TP SCH (22:00)
[2017-01-10] MEDS: CICLOPIROX TP SCH (22:00)
[2017-01-11] MEDS: FIBERSOURCE HN 1,000 ML BOTTLE GT PRN (00:47)
[2017-01-11] MEDS: ALBUTEROL HALF STRENGTH 1.25 MG/3 ML VIAL.NEB NEB SCH ×4 (01:42→20:00)
[2017-01-11] MEDS: CHLORHEXIDINE GLUCONATE 15 ML UDC MM SCH ×2 (05:27→17:26)
[2017-01-11 07:57] VITALS: BP 128/68
[2017-01-11] MEDS: Z GUARD REMEDY 4 OZ OINT TP SCH ×2 (09:00→21:03)
[2017-01-11] MEDS: VITAMINS A AND D 56.7 GM TUBE TP SCH ×4 (09:00→21:03)
[2017-01-11] MEDS: HYDROGEN PEROXIDE 480 ML BOTTLE TP SCH ×2 (09:00→21:03)
[2017-01-11] MEDS: CHOLECALCIFEROL (VITAMIN D 3) 400 UNIT TABLET GT SCH ×2 (09:21→21:03)
[2017-01-11] MEDS: ASPIRIN 81 MG TAB.CHEW GT SCH (09:21)
[2017-01-11] MEDS: FINASTERIDE (5 MG) 5 MG TABLET GT SCH (09:21)
[2017-01-11] MEDS: VALACYCLOVIR HCL 500 MG TABLET PEG SCH (09:21)
[2017-01-11] MEDS: POTASSIUM CHLORIDE 10 MEQ GT SCH (09:21)
[2017-01-11] MEDS: PROSOURCE / PROSTAT (PYXIS) 30 ML UDC GT SCH (09:21)
[2017-01-11] MEDS: DOXAZOSIN MESYLATE 8 MG GT SCH (09:21)
[2017-01-11] MEDS: RIFAXIMIN 550 MG TABLET PO SCH ×2 (09:21→17:25)
[2017-01-11] MEDS: PRUNE JUICE GT SCH (12:00)
[2017-01-11 19:45] VITALS: BP 131/79
[2017-01-11] MEDS: LATANOPROST EYE DROP 0.005% 2.5 ML BOTTLE EACHEYE SCH (21:03)
[2017-01-11] MEDS: PRAVASTATIN SODIUM 20 MG TABLET GT SCH (21:03)
[2017-01-11] MEDS: [UNRECOGNIZED DRUG - OTHER] TP SCH (21:03)
[2017-01-11] MEDS: CICLOPIROX TP SCH (21:03)
[2017-01-11] MEDS: METHYLNALTREXONE BROMIDE 12 MG/0.6 ML VIAL SQ SCH (21:03)
[2017-01-11] MEDS: HYDROCODONE/APAP 7.5/325MG 1 EACH TABLET GT PRN (22:54)
[2017-01-12] MEDS: FIBERSOURCE HN 1,000 ML BOTTLE GT PRN (00:31)
[2017-01-12] MEDS: ALBUTEROL HALF STRENGTH 1.25 MG/3 ML VIAL.NEB NEB SCH ×4 (01:47→19:30)
[2017-01-12] MEDS: CHLORHEXIDINE GLUCONATE 15 ML UDC MM SCH ×2 (05:44→17:58)
[2017-01-12 08:26] VITALS: BP 125/72
[2017-01-12] MEDS: FINASTERIDE (5 MG) 5 MG TABLET GT SCH (09:10)
[2017-01-12] MEDS: CHOLECALCIFEROL (VITAMIN D 3) 400 UNIT TABLET GT SCH ×2 (09:10→20:48)
[2017-01-12] MEDS: POTASSIUM CHLORIDE 10 MEQ GT SCH (09:10)
[2017-01-12] MEDS: PROSOURCE / PROSTAT (PYXIS) 30 ML UDC GT SCH (09:10)
[2017-01-12] MEDS: RIFAXIMIN 550 MG TABLET PO SCH ×2 (09:10→17:58)
[2017-01-12] MEDS: HYDROGEN PEROXIDE 480 ML BOTTLE TP SCH ×2 (09:10→20:48)
[2017-01-12] MEDS: ASPIRIN 81 MG TAB.CHEW GT SCH (09:10)
[2017-01-12] MEDS: VITAMINS A AND D 56.7 GM TUBE TP SCH ×4 (09:10→20:49)
[2017-01-12] MEDS: VALACYCLOVIR HCL 500 MG TABLET PEG SCH (09:10)
[2017-01-12] MEDS: Z GUARD REMEDY 4 OZ OINT TP SCH ×2 (09:10→20:49)
[2017-01-12] MEDS: DOXAZOSIN MESYLATE 8 MG GT SCH (09:10)
[2017-01-12] MEDS: PRUNE JUICE GT SCH (12:00)
[2017-01-12 20:04] VITALS: BP 136/85
[2017-01-12] MEDS: METHYLNALTREXONE BROMIDE 12 MG/0.6 ML VIAL SQ SCH (20:48)
[2017-01-12] MEDS: LATANOPROST EYE DROP 0.005% 2.5 ML BOTTLE EACHEYE SCH (21:15)
[2017-01-12] MEDS: CICLOPIROX TP SCH (21:15)
[2017-01-12] MEDS: PRAVASTATIN SODIUM 20 MG TABLET GT SCH (21:15)
[2017-01-12] MEDS: [UNRECOGNIZED DRUG - OTHER] TP SCH (21:15)
[2017-01-13] MEDS: FIBERSOURCE HN 1,000 ML BOTTLE GT PRN ×2 (00:45→23:31)
[2017-01-13] MEDS: ALBUTEROL HALF STRENGTH 1.25 MG/3 ML VIAL.NEB NEB SCH ×4 (01:27→20:02)
[2017-01-13] MEDS: CHLORHEXIDINE GLUCONATE 15 ML UDC MM SCH ×2 (05:42→17:33)
[2017-01-13 08:06] VITALS: BP 121/65
[2017-01-13] MEDS: POTASSIUM CHLORIDE 10 MEQ GT SCH (08:22)
[2017-01-13] MEDS: ASPIRIN 81 MG TAB.CHEW GT SCH (08:22)
[2017-01-13] MEDS: DOXAZOSIN MESYLATE 8 MG GT SCH (08:22)
[2017-01-13] MEDS: VALACYCLOVIR HCL 500 MG TABLET PEG SCH (08:23)
[2017-01-13] MEDS: CHOLECALCIFEROL (VITAMIN D 3) 400 UNIT TABLET GT SCH ×2 (08:23→20:54)
[2017-01-13] MEDS: PROSOURCE / PROSTAT (PYXIS) 30 ML UDC GT SCH (08:23)
[2017-01-13] MEDS: FINASTERIDE (5 MG) 5 MG TABLET GT SCH (08:23)
[2017-01-13] MEDS: RIFAXIMIN 550 MG TABLET PO SCH ×2 (08:27→17:36)
[2017-01-13] MEDS: Z GUARD REMEDY 4 OZ OINT TP SCH ×2 (08:39→20:54)
[2017-01-13] MEDS: VITAMINS A AND D 56.7 GM TUBE TP SCH ×4 (08:39→20:54)
[2017-01-13] MEDS: HYDROGEN PEROXIDE 480 ML BOTTLE TP SCH ×2 (08:39→20:54)
[2017-01-13] MEDS: PRUNE JUICE GT SCH (12:00)
[2017-01-13 20:00] VITALS: BP 131/75
[2017-01-13] MEDS: METHYLNALTREXONE BROMIDE 12 MG/0.6 ML VIAL SQ SCH (20:54)
[2017-01-13] MEDS: [UNRECOGNIZED DRUG - OTHER] TP SCH (21:17)
[2017-01-13] MEDS: PRAVASTATIN SODIUM 20 MG TABLET GT SCH (21:17)
[2017-01-13] MEDS: LATANOPROST EYE DROP 0.005% 2.5 ML BOTTLE EACHEYE SCH (21:17)
[2017-01-13] MEDS: CICLOPIROX TP SCH (21:17)
[2017-01-13] MEDS: HYDROCODONE/APAP 7.5/325MG 1 EACH TABLET GT PRN (23:31)
[2017-01-14] MEDS: ALBUTEROL HALF STRENGTH 1.25 MG/3 ML VIAL.NEB NEB SCH ×4 (02:19→20:19)
[2017-01-14] MEDS: CHLORHEXIDINE GLUCONATE 15 ML UDC MM SCH ×2 (05:37→17:12)
[2017-01-14 08:02] VITALS: BP 130/84
[2017-01-14] MEDS: VALACYCLOVIR HCL 500 MG TABLET PEG SCH (08:31)
[2017-01-14] MEDS: ASPIRIN 81 MG TAB.CHEW GT SCH (08:31)
[2017-01-14] MEDS: FINASTERIDE (5 MG) 5 MG TABLET GT SCH (08:31)
[2017-01-14] MEDS: POTASSIUM CHLORIDE 10 MEQ GT SCH (08:31)
[2017-01-14] MEDS: CHOLECALCIFEROL (VITAMIN D 3) 400 UNIT TABLET GT SCH ×2 (08:31→21:09)
[2017-01-14] MEDS: DOXAZOSIN MESYLATE 8 MG GT SCH (08:31)
[2017-01-14] MEDS: PROSOURCE / PROSTAT (PYXIS) 30 ML UDC GT SCH (08:31)
[2017-01-14] MEDS: HYDROGEN PEROXIDE 480 ML BOTTLE TP SCH ×2 (08:40→21:09)
[2017-01-14] MEDS: RIFAXIMIN 550 MG TABLET PO SCH ×2 (08:40→17:12)
[2017-01-14] MEDS: Z GUARD REMEDY 4 OZ OINT TP SCH ×2 (08:40→21:10)
[2017-01-14] MEDS: VITAMINS A AND D 56.7 GM TUBE TP SCH ×4 (08:40→21:10)
[2017-01-14] MEDS: PRUNE JUICE GT SCH (12:50)
[2017-01-14] MEDS: METHYLNALTREXONE BROMIDE 12 MG/0.6 ML VIAL SQ SCH (21:09)
[2017-01-14] MEDS: [UNRECOGNIZED DRUG - OTHER] TP SCH (21:10)
[2017-01-14] MEDS: LATANOPROST EYE DROP 0.005% 2.5 ML BOTTLE EACHEYE SCH (21:10)
[2017-01-14] MEDS: CICLOPIROX TP SCH (21:10)
[2017-01-14] MEDS: PRAVASTATIN SODIUM 20 MG TABLET GT SCH (21:10)
[2017-01-14 22:55] VITALS: BP 131/78
[2017-01-15] MEDS: FIBERSOURCE HN 1,000 ML BOTTLE GT PRN (01:24)
[2017-01-15] MEDS: ALBUTEROL HALF STRENGTH 1.25 MG/3 ML VIAL.NEB NEB SCH ×4 (02:07→19:15)
[2017-01-15] MEDS: CHLORHEXIDINE GLUCONATE 15 ML UDC MM SCH ×2 (06:37→17:47)
[2017-01-15] MEDS: VALACYCLOVIR HCL 500 MG TABLET PEG SCH (08:04)
[2017-01-15] MEDS: FINASTERIDE (5 MG) 5 MG TABLET GT SCH (08:04)
[2017-01-15] MEDS: PROSOURCE / PROSTAT (PYXIS) 30 ML UDC GT SCH (08:04)
[2017-01-15] MEDS: DOXAZOSIN MESYLATE 8 MG GT SCH (08:04)
[2017-01-15] MEDS: VITAMINS A AND D 56.7 GM TUBE TP SCH ×4 (08:04→21:13)
[2017-01-15] MEDS: ASPIRIN 81 MG TAB.CHEW GT SCH (08:04)
[2017-01-15] MEDS: CHOLECALCIFEROL (VITAMIN D 3) 400 UNIT TABLET GT SCH ×2 (08:04→21:12)
[2017-01-15] MEDS: HYDROGEN PEROXIDE 480 ML BOTTLE TP SCH ×2 (08:04→21:12)
[2017-01-15] MEDS: RIFAXIMIN 550 MG TABLET PO SCH ×2 (08:04→16:25)
[2017-01-15] MEDS: POTASSIUM CHLORIDE 10 MEQ GT SCH (08:04)
[2017-01-15] MEDS: Z GUARD REMEDY 4 OZ OINT TP SCH ×2 (08:04→21:13)
[2017-01-15 08:11] VITALS: BP 122/72
[2017-01-15] MEDS: PRUNE JUICE GT SCH (12:53)
[2017-01-15] MEDS ORDERED: MISCELLANEOUS MED 1 EA EA XX ONE (14:00)
--- NOTE | 2017-01-15 14:00 | NUR ---
Seen and examined by Dr. Edwards, new order given to give cold coffee via GT in the morning to make him more awake. Order noted and carried out.
[2017-01-15] MEDS: METHYLNALTREXONE BROMIDE 12 MG/0.6 ML VIAL SQ SCH (21:12)
[2017-01-15] MEDS: CICLOPIROX TP SCH (21:13)
[2017-01-15] MEDS: [UNRECOGNIZED DRUG - OTHER] TP SCH (21:13)
[2017-01-15] MEDS: PRAVASTATIN SODIUM 20 MG TABLET GT SCH (21:13)
[2017-01-15] MEDS: LATANOPROST EYE DROP 0.005% 2.5 ML BOTTLE EACHEYE SCH (21:13)
[2017-01-16 01:04] VITALS: BP 112/72
[2017-01-16] MEDS: ALBUTEROL HALF STRENGTH 1.25 MG/3 ML VIAL.NEB NEB SCH ×4 (01:51→19:45)
[2017-01-16] MEDS: FIBERSOURCE HN 1,000 ML BOTTLE GT PRN (02:30)
[2017-01-16] MEDS: CHLORHEXIDINE GLUCONATE 15 ML UDC MM SCH ×2 (05:33→17:27)
[2017-01-16 08:10] VITALS: BP 120/72
[2017-01-16] MEDS: DOXAZOSIN MESYLATE 8 MG GT SCH (08:13)
[2017-01-16] MEDS: FINASTERIDE (5 MG) 5 MG TABLET GT SCH (08:13)
[2017-01-16] MEDS: CHOLECALCIFEROL (VITAMIN D 3) 400 UNIT TABLET GT SCH ×2 (08:13→21:00)
[2017-01-16] MEDS: VALACYCLOVIR HCL 500 MG TABLET PEG SCH (08:13)
[2017-01-16] MEDS: PROSOURCE / PROSTAT (PYXIS) 30 ML UDC GT SCH (08:13)
[2017-01-16] MEDS: POTASSIUM CHLORIDE 10 MEQ GT SCH (08:13)
[2017-01-16] MEDS: ASPIRIN 81 MG TAB.CHEW GT SCH (08:13)
[2017-01-16] MEDS: RIFAXIMIN 550 MG TABLET PO SCH ×2 (08:13→16:47)
[2017-01-16] MEDS: HYDROGEN PEROXIDE 480 ML BOTTLE TP SCH ×2 (09:00→21:00)
[2017-01-16] MEDS: VITAMINS A AND D 56.7 GM TUBE TP SCH ×4 (09:00→21:00)
[2017-01-16] MEDS: Z GUARD REMEDY 4 OZ OINT TP SCH ×2 (09:00→21:00)
[2017-01-16] MEDS: PRUNE JUICE GT SCH (12:00)
[2017-01-16 19:25] VITALS: BP 133/80
[2017-01-16] MEDS: METHYLNALTREXONE BROMIDE 12 MG/0.6 ML VIAL SQ SCH (21:00)
[2017-01-16] MEDS: LATANOPROST EYE DROP 0.005% 2.5 ML BOTTLE EACHEYE SCH (22:10)
[2017-01-16] MEDS: PRAVASTATIN SODIUM 20 MG TABLET GT SCH (22:11)
[2017-01-16] MEDS: [UNRECOGNIZED DRUG - OTHER] TP SCH (22:12)
[2017-01-16] MEDS: CICLOPIROX TP SCH (22:12)
[2017-01-17] MEDS: ALBUTEROL HALF STRENGTH 1.25 MG/3 ML VIAL.NEB NEB SCH ×4 (01:47→19:18)
[2017-01-17] MEDS: HYDROCODONE/APAP 7.5/325MG 1 EACH TABLET GT PRN (03:03)
[2017-01-17] MEDS: CHLORHEXIDINE GLUCONATE 15 ML UDC MM SCH ×2 (06:29→17:07)
[2017-01-17 08:00] VITALS: BP 134/93
[2017-01-17] MEDS: CHOLECALCIFEROL (VITAMIN D 3) 400 UNIT TABLET GT SCH ×2 (08:28→20:54)
[2017-01-17] MEDS: Z GUARD REMEDY 4 OZ OINT TP SCH ×2 (08:28→20:54)
[2017-01-17] MEDS: RIFAXIMIN 550 MG TABLET PO SCH ×2 (08:28→17:06)
[2017-01-17] MEDS: HYDROGEN PEROXIDE 480 ML BOTTLE TP SCH ×2 (08:28→20:54)
[2017-01-17] MEDS: DOXAZOSIN MESYLATE 8 MG GT SCH (08:28)
[2017-01-17] MEDS: PROSOURCE / PROSTAT (PYXIS) 30 ML UDC GT SCH (08:28)
[2017-01-17] MEDS: POTASSIUM CHLORIDE 10 MEQ GT SCH (08:28)
[2017-01-17] MEDS: FINASTERIDE (5 MG) 5 MG TABLET GT SCH (08:28)
[2017-01-17] MEDS: VITAMINS A AND D 56.7 GM TUBE TP SCH ×4 (08:29→20:54)
[2017-01-17] MEDS: ASPIRIN 81 MG TAB.CHEW GT SCH (08:33)
[2017-01-17] MEDS: PRUNE JUICE GT SCH (12:26)
--- NOTE | 2017-01-17 12:30 | NUR ---
Seen and examined by Dr. Edwards with no new order given.
[2017-01-17] MEDS: FIBERSOURCE HN 1,000 ML BOTTLE GT PRN (20:42)
[2017-01-17 20:45] VITALS: BP 122/76
[2017-01-17] MEDS: METHYLNALTREXONE BROMIDE 12 MG/0.6 ML VIAL SQ SCH (20:54)
[2017-01-17] MEDS: LATANOPROST EYE DROP 0.005% 2.5 ML BOTTLE EACHEYE SCH (21:18)
[2017-01-17] MEDS: PRAVASTATIN SODIUM 20 MG TABLET GT SCH (21:18)
[2017-01-18] MEDS: ALBUTEROL HALF STRENGTH 1.25 MG/3 ML VIAL.NEB NEB SCH ×6 (01:08→20:17)
[2017-01-18 08:00] VITALS: BP 100/62
[2017-01-18] MEDS: POTASSIUM CHLORIDE 10 MEQ GT SCH (09:05)
[2017-01-18] MEDS: CHOLECALCIFEROL (VITAMIN D 3) 400 UNIT TABLET GT SCH ×2 (09:05→21:03)
[2017-01-18] MEDS: ASPIRIN 81 MG TAB.CHEW GT SCH (09:05)
[2017-01-18] MEDS: FINASTERIDE (5 MG) 5 MG TABLET GT SCH (09:05)
[2017-01-18] MEDS: DOXAZOSIN MESYLATE 8 MG GT SCH (09:05)
[2017-01-18] MEDS: PROSOURCE / PROSTAT (PYXIS) 30 ML UDC GT SCH (09:05)
[2017-01-18] MEDS: HYDROGEN PEROXIDE 480 ML BOTTLE TP SCH ×2 (09:05→21:03)
[2017-01-18] MEDS: RIFAXIMIN 550 MG TABLET PO SCH ×2 (09:05→17:00)
[2017-01-18] MEDS: Z GUARD REMEDY 4 OZ OINT TP SCH ×2 (09:06→21:03)
[2017-01-18] MEDS: VITAMINS A AND D 56.7 GM TUBE TP SCH ×4 (09:06→21:03)
[2017-01-18] MEDS: PRUNE JUICE GT SCH (12:00)
[2017-01-18] MEDS: CHLORHEXIDINE GLUCONATE 15 ML UDC MM SCH ×2 (18:00→18:46)
--- NOTE | 2017-01-18 19:30 | NUR ---
RN NOTES Seen and examined by Denise Pichardo with NNO.
[2017-01-18 19:44] VITALS: BP 121/78
[2017-01-18] MEDS: PRAVASTATIN SODIUM 20 MG TABLET GT SCH (21:03)
[2017-01-18] MEDS: METHYLNALTREXONE BROMIDE 12 MG/0.6 ML VIAL SQ SCH (21:03)
[2017-01-18] MEDS: LATANOPROST EYE DROP 0.005% 2.5 ML BOTTLE EACHEYE SCH (21:03)
[2017-01-19] MEDS: FIBERSOURCE HN 1,000 ML BOTTLE GT PRN ×2 (00:04→23:26)
[2017-01-19] MEDS: ALBUTEROL HALF STRENGTH 1.25 MG/3 ML VIAL.NEB NEB SCH ×4 (02:01→20:16)
[2017-01-19] MEDS: CHLORHEXIDINE GLUCONATE 15 ML UDC MM SCH ×2 (05:39→17:02)
[2017-01-19] MEDS: FINASTERIDE (5 MG) 5 MG TABLET GT SCH (08:49)
[2017-01-19] MEDS: ASPIRIN 81 MG TAB.CHEW GT SCH (08:49)
[2017-01-19] MEDS: PROSOURCE / PROSTAT (PYXIS) 30 ML UDC GT SCH (08:49)
[2017-01-19] MEDS: CHOLECALCIFEROL (VITAMIN D 3) 400 UNIT TABLET GT SCH ×2 (08:49→21:03)
[2017-01-19] MEDS: DOXAZOSIN MESYLATE 8 MG GT SCH (08:49)
[2017-01-19] MEDS: POTASSIUM CHLORIDE 10 MEQ GT SCH (08:49)
[2017-01-19] MEDS: RIFAXIMIN 550 MG TABLET PO SCH ×2 (08:50→17:02)
[2017-01-19] MEDS: HYDROGEN PEROXIDE 480 ML BOTTLE TP SCH ×2 (08:50→21:03)
[2017-01-19] MEDS: Z GUARD REMEDY 4 OZ OINT TP SCH ×2 (08:50→21:03)
[2017-01-19] MEDS: VITAMINS A AND D 56.7 GM TUBE TP SCH ×4 (08:50→21:03)
--- NOTE | 2017-01-19 10:00 | NUR ---
Seen and examined by VIELKA Hernadez given at this time.
--- NOTE | 2017-01-19 10:00 | NUR ---
Seen and examined by VIELKA Hernadez given at this time.
--- NOTE | 2017-01-19 11:29 | NUR ---
Seen and examined by Dr. Edwards, no new order given.
[2017-01-19] MEDS: PRUNE JUICE GT SCH (12:00)
[2017-01-19] MEDS: HYDROCODONE/APAP 7.5/325MG 1 EACH TABLET GT PRN (14:06)
[2017-01-19 20:39] VITALS: BP 130/76
[2017-01-19] MEDS: PRAVASTATIN SODIUM 20 MG TABLET GT SCH (21:03)
[2017-01-19] MEDS: METHYLNALTREXONE BROMIDE 12 MG/0.6 ML VIAL SQ SCH (21:03)
[2017-01-19] MEDS: LATANOPROST EYE DROP 0.005% 2.5 ML BOTTLE EACHEYE SCH (21:03)
[2017-01-20] MEDS: ALBUTEROL HALF STRENGTH 1.25 MG/3 ML VIAL.NEB NEB SCH ×4 (01:54→19:30)
[2017-01-20] MEDS: CHLORHEXIDINE GLUCONATE 15 ML UDC MM SCH ×2 (05:33→17:19)
[2017-01-20 06:46] LABS: BASOPHILS % (AUTO) 0.9 % (0.0-2.0); EOSINOPHILS # (AUTO) 0.2 /CMM (0.0-0.7); EOSINOPHILS % (AUTO) 4.2 % (0.0-6.0); HEMATOCRIT 43 % (39-51); HEMOGLOBIN 14.6 g/dL (13.5-17.5); LYMPHOCYTES # (AUTO) 1.1 /CMM (0.8-4.8); LYMPHOCYTES % (AUTO) 23.9 % (20.0-44.0); MEAN CORPUSCULAR HEMOGLOBIN 34 PG (26.0-33.0); MEAN CORPUSCULAR HGB CONC 34 g/dl (31.0-36.0); MEAN CORPUSCULAR VOLUME 100 fL (80-96); MONOCYTES # (AUTO) 0.4 /CMM (0.1-1.30); MONOCYTES % (AUTO) 8.5 % (2.0-12.0); NEUTROPHILS # (AUTO) 2.9 /CMM (1.8-8.9); NEUTROPHILS % (AUTO) 62.5 % (43.0-81.0); PLATELET COUNT (AUTO) 77 /CMM (150-450); RDW COEFFICIENT OF VARIATION 13.4 (11.5-15.0); WHITE BLOOD COUNT (AUTO) 4.6 K/uL (4.3-11.0)
[2017-01-20 07:32] VITALS: BP 137/75
[2017-01-20] MEDS: POTASSIUM CHLORIDE 10 MEQ GT SCH (08:04)
[2017-01-20] MEDS: PROSOURCE / PROSTAT (PYXIS) 30 ML UDC GT SCH (08:04)
[2017-01-20] MEDS: DOXAZOSIN MESYLATE 8 MG GT SCH (08:04)
[2017-01-20] MEDS: FINASTERIDE (5 MG) 5 MG TABLET GT SCH (08:04)
[2017-01-20] MEDS: ASPIRIN 81 MG TAB.CHEW GT SCH (08:04)
[2017-01-20] MEDS: CHOLECALCIFEROL (VITAMIN D 3) 400 UNIT TABLET GT SCH ×2 (08:04→20:59)
[2017-01-20] MEDS: VITAMINS A AND D 56.7 GM TUBE TP SCH ×4 (08:05→20:59)
[2017-01-20] MEDS: RIFAXIMIN 550 MG TABLET PO SCH ×2 (08:05→17:19)
[2017-01-20] MEDS: Z GUARD REMEDY 4 OZ OINT TP SCH ×2 (08:05→20:59)
[2017-01-20] MEDS: HYDROGEN PEROXIDE 480 ML BOTTLE TP SCH ×2 (08:05→20:59)
[2017-01-20 08:34] LABS: EOSINOPHILS % (MANUAL) 4 % (0-4); LYMPHOCYTES % (MANUAL) 27 % (16-48); MONOCYTES % (MANUAL) 4 % (0-11.0); NEUTROPHILS % (MANUAL) 65 (42-76)
--- NOTE | 2017-01-20 11:30 | NUR ---
Informed [facility] that and patient's dtr Tamara complaining about not being able to be in the room while care is provided. They stated that it was temporary and have not met with the CNO again to discuss. Reached out to the CNO to see if he is able to speak to the family. However, Tamara stated that she would like to wait for her sister Jonna to be present and will send the SW her availability. [facility] notified.
[2017-01-20] MEDS: PRUNE JUICE GT SCH (12:00)
[2017-01-20] MEDS: HYDROCODONE/APAP 7.5/325MG 1 EACH TABLET GT PRN (13:41)
--- NOTE | 2017-01-20 15:31 | NUR ---
social worker school attended a meeting with the patients daughters Sergio and A[facility]A [facility]. Residents daughters wanted to meet with CNO regarding some concerns that they have. They stated that they wanted to follow up on residents not being able to be in the room while the CNAs are performing their duties for the resident (cleaning, washing, providing oral care, etc). CNO explained that the rule was enforced due to wifes own safety (as she has in the past complained of back pain or almost slipping) and for the staff being able to care for resident without her interference. CARLIO stated that he will talk to the staff members and will revisit the issue to see if the limitation can be lifted. However, he noted that until that time, it will remain in place. He also clarified that the restriction to the activity room from 12pm-2pm is only temporary. CNO stated that the family cannot refuse certain staff members from working with the resident and that staff members rotate assignments on a daily basis. Daughter Jonna to call SW to schedule another meeting with CNO for some time next week.
[2017-01-20 20:09] VITALS: BP 118/76
[2017-01-20] MEDS: METHYLNALTREXONE BROMIDE 12 MG/0.6 ML VIAL SQ SCH (20:59)
[2017-01-20] MEDS: LATANOPROST EYE DROP 0.005% 2.5 ML BOTTLE EACHEYE SCH (21:00)
[2017-01-20] MEDS: PRAVASTATIN SODIUM 20 MG TABLET GT SCH (21:00)
[2017-01-20] MEDS: FIBERSOURCE HN 1,000 ML BOTTLE GT PRN (23:32)
[2017-01-21] MEDS: ALBUTEROL HALF STRENGTH 1.25 MG/3 ML VIAL.NEB NEB SCH ×4 (02:13→20:21)
[2017-01-21] MEDS: CHLORHEXIDINE GLUCONATE 15 ML UDC MM SCH ×2 (05:36→17:44)
[2017-01-21 07:43] VITALS: BP 116/74
[2017-01-21] MEDS: DOXAZOSIN MESYLATE 8 MG GT SCH (08:52)
[2017-01-21] MEDS: ASPIRIN 81 MG TAB.CHEW GT SCH (08:52)
[2017-01-21] MEDS: RIFAXIMIN 550 MG TABLET PO SCH ×2 (09:00→17:44)
[2017-01-21] MEDS: FINASTERIDE (5 MG) 5 MG TABLET GT SCH (09:00)
[2017-01-21] MEDS: HYDROGEN PEROXIDE 480 ML BOTTLE TP SCH ×2 (09:00→20:38)
[2017-01-21] MEDS: PROSOURCE / PROSTAT (PYXIS) 30 ML UDC GT SCH (09:00)
[2017-01-21] MEDS: CHOLECALCIFEROL (VITAMIN D 3) 400 UNIT TABLET GT SCH ×2 (09:00→20:38)
[2017-01-21] MEDS: POTASSIUM CHLORIDE 10 MEQ GT SCH (09:00)
[2017-01-21] MEDS: VITAMINS A AND D 56.7 GM TUBE TP SCH ×4 (09:01→20:38)
[2017-01-21] MEDS: Z GUARD REMEDY 4 OZ OINT TP SCH ×2 (09:01→20:38)
[2017-01-21] MEDS: PRUNE JUICE GT SCH (12:00)
--- NOTE | 2017-01-21 13:50 | NUR ---
Seen and examined by Dr Edwards with order to do urine with c/s for urinary discomfort order noted and carried out.Resident and made aware.Resident no hematuria,no abdominal distention noted.Good perineal care provided.Water flushing as ordered tolerated well.Will continue to monitor.
--- NOTE | 2017-01-21 15:30 | NUR ---
Seen and examined by Denise MAR with no new order.
[2017-01-21 17:44] LABS: BILIRUBIN,URINE NEGATIVE (NEGATIVE); BLOOD, URINE NEGATIVE Ery/uL (NEGATIVE); COLOR,URINE YELLOW (YELLOW); KETONES,URINE NEGATIVE (NEGATIVE); LEUKOCYTE ESTERASE ,URINE 3+ (NEGATIVE); NITRITE, URINE NEGATIVE (NEGATIVE); PH,URINE 7.5 (5.0-8.0); PROTEIN,URINE NEGATIVE (NEGATIVE); UGLUCOSE NEGATIVE (NEGATIVE); UROBILINOGEN,URINE 0.2 EU/dL (0.2)
[2017-01-21 17:56] LABS: APPEARANCE,URINE Slightly Cloudy (CLEAR)
[2017-01-21 17:57] LABS: BACTERIA,URINE Moderate /HPF (None Seen); RBC,URINE 0-2 /HPF (0-2); SQUAMOUS EPITHELIAL CELL,UR Few /HPF (None Seen); WBC,URINE 21-50 /HPF (0-3)
[2017-01-21 19:47] VITALS: BP 134/68
[2017-01-21] MEDS: METHYLNALTREXONE BROMIDE 12 MG/0.6 ML VIAL SQ SCH (20:38)
[2017-01-21] MEDS: PRAVASTATIN SODIUM 20 MG TABLET GT SCH (21:43)
[2017-01-21] MEDS: LATANOPROST EYE DROP 0.005% 2.5 ML BOTTLE EACHEYE SCH (21:43)
[2017-01-22] MEDS: FIBERSOURCE HN 1,000 ML BOTTLE GT PRN ×2 (00:32→21:05)
[2017-01-22] MEDS: ALBUTEROL HALF STRENGTH 1.25 MG/3 ML VIAL.NEB NEB SCH ×4 (02:26→19:43)
[2017-01-22] MEDS: CHLORHEXIDINE GLUCONATE 15 ML UDC MM SCH ×2 (06:00→17:18)
[2017-01-22 07:45] VITALS: BP 118/75
[2017-01-22] MEDS: ASPIRIN 81 MG TAB.CHEW GT SCH (09:03)
[2017-01-22] MEDS: DOXAZOSIN MESYLATE 8 MG GT SCH (09:03)
[2017-01-22] MEDS: PROSOURCE / PROSTAT (PYXIS) 30 ML UDC GT SCH (09:04)
[2017-01-22] MEDS: FINASTERIDE (5 MG) 5 MG TABLET GT SCH (09:04)
[2017-01-22] MEDS: POTASSIUM CHLORIDE 10 MEQ GT SCH (09:04)
[2017-01-22] MEDS: RIFAXIMIN 550 MG TABLET PO SCH ×2 (09:04→17:18)
[2017-01-22] MEDS: CHOLECALCIFEROL (VITAMIN D 3) 400 UNIT TABLET GT SCH ×2 (09:04→21:04)
[2017-01-22] MEDS: Z GUARD REMEDY 4 OZ OINT TP SCH ×2 (09:13→21:05)
[2017-01-22] MEDS: VITAMINS A AND D 56.7 GM TUBE TP SCH ×4 (09:13→21:05)
[2017-01-22] MEDS: HYDROGEN PEROXIDE 480 ML BOTTLE TP SCH ×2 (09:14→21:05)
[2017-01-22] MEDS: HYDROCODONE/APAP 7.5/325MG 1 EACH TABLET GT PRN (10:22)
[2017-01-22] MEDS: PRUNE JUICE GT SCH (12:05)
[2017-01-22 20:45] VITALS: BP 115/70
[2017-01-22] MEDS: PRAVASTATIN SODIUM 20 MG TABLET GT SCH (21:05)
[2017-01-22] MEDS: LATANOPROST EYE DROP 0.005% 2.5 ML BOTTLE EACHEYE SCH (21:05)
[2017-01-22] MEDS: METHYLNALTREXONE BROMIDE 12 MG/0.6 ML VIAL SQ SCH (21:05)
[2017-01-23] MEDS: ALBUTEROL HALF STRENGTH 1.25 MG/3 ML VIAL.NEB NEB SCH ×4 (02:25→19:16)
[2017-01-23] MEDS: CHLORHEXIDINE GLUCONATE 15 ML UDC MM SCH ×2 (05:07→17:26)
[2017-01-23] MEDS: HYDROCODONE/APAP 7.5/325MG 1 EACH TABLET GT PRN (06:31)
[2017-01-23 08:05] VITALS: BP 135/80
[2017-01-23] MEDS: ASPIRIN 81 MG TAB.CHEW GT SCH (08:18)
[2017-01-23] MEDS: DOXAZOSIN MESYLATE 8 MG GT SCH (08:19)
[2017-01-23] MEDS: POTASSIUM CHLORIDE 10 MEQ GT SCH (08:19)
[2017-01-23] MEDS: FINASTERIDE (5 MG) 5 MG TABLET GT SCH (08:19)
[2017-01-23] MEDS: RIFAXIMIN 550 MG TABLET PO SCH ×2 (08:19→17:26)
[2017-01-23] MEDS: PROSOURCE / PROSTAT (PYXIS) 30 ML UDC GT SCH (08:19)
[2017-01-23] MEDS: CHOLECALCIFEROL (VITAMIN D 3) 400 UNIT TABLET GT SCH ×2 (09:33→21:04)
[2017-01-23] MEDS: SIMETHICONE SUSP 40 MG/0.6 ML BOTTLE GT PRN (09:46)
[2017-01-23] MEDS: Z GUARD REMEDY 4 OZ OINT TP SCH ×2 (11:15→21:05)
[2017-01-23] MEDS: HYDROGEN PEROXIDE 480 ML BOTTLE TP SCH ×2 (11:15→21:04)
[2017-01-23] MEDS: VITAMINS A AND D 56.7 GM TUBE TP SCH ×4 (11:15→21:05)
[2017-01-23] MEDS: PRUNE JUICE GT SCH (12:20)
--- NOTE | 2017-01-23 18:15 | NUR ---
Seen and Examined by Dr. Edwards. He ordered for Merrem 500 mg IV Q8H x5 days for UTI. made aware and IV line inserted at Left forearm.
[2017-01-23] MEDS: FIBERSOURCE HN 1,000 ML BOTTLE GT PRN (18:19)
[2017-01-23 20:28] VITALS: BP 119/70
[2017-01-23] MEDS: MEROPENEM 500 MG in IV NS 0.9% 50 ML IV SCH (20:56)
[2017-01-23] MEDS: METHYLNALTREXONE BROMIDE 12 MG/0.6 ML VIAL SQ SCH (21:04)
[2017-01-23] MEDS: LATANOPROST EYE DROP 0.005% 2.5 ML BOTTLE EACHEYE SCH (21:05)
[2017-01-23] MEDS: PRAVASTATIN SODIUM 20 MG TABLET GT SCH (21:05)
--- NOTE | 2017-01-23 22:31 | NUR ---
Pt on contact isolation for ESBL urine.Merrem 500mg given IV no adverse reaction noted.
[2017-01-24] MEDS: ALBUTEROL HALF STRENGTH 1.25 MG/3 ML VIAL.NEB NEB SCH ×4 (00:45→20:19)
[2017-01-24] MEDS: MEROPENEM 500 MG in IV NS 0.9% 50 ML IV SCH ×3 (05:00→21:00)
[2017-01-24] MEDS: CHLORHEXIDINE GLUCONATE 15 ML UDC MM SCH ×2 (05:11→18:22)
[2017-01-24 07:49] VITALS: BP 118/74
[2017-01-24] MEDS: RIFAXIMIN 550 MG TABLET PO SCH ×2 (08:05→17:00)
[2017-01-24] MEDS: POTASSIUM CHLORIDE 10 MEQ GT SCH (08:05)
[2017-01-24] MEDS: HYDROGEN PEROXIDE 480 ML BOTTLE TP SCH ×2 (08:05→21:20)
[2017-01-24] MEDS: CHOLECALCIFEROL (VITAMIN D 3) 400 UNIT TABLET GT SCH ×2 (08:05→21:20)
[2017-01-24] MEDS: FINASTERIDE (5 MG) 5 MG TABLET GT SCH (08:05)
[2017-01-24] MEDS: DOXAZOSIN MESYLATE 8 MG GT SCH (08:05)
[2017-01-24] MEDS: ASPIRIN 81 MG TAB.CHEW GT SCH (08:05)
[2017-01-24] MEDS: PROSOURCE / PROSTAT (PYXIS) 30 ML UDC GT SCH (08:05)
[2017-01-24] MEDS: VITAMINS A AND D 56.7 GM TUBE TP SCH ×4 (08:07→21:20)
[2017-01-24] MEDS: Z GUARD REMEDY 4 OZ OINT TP SCH ×2 (08:07→21:20)
[2017-01-24] MEDS: PRUNE JUICE GT SCH (12:00)
[2017-01-24 20:13] VITALS: BP 117/74
[2017-01-24] MEDS: METHYLNALTREXONE BROMIDE 12 MG/0.6 ML VIAL SQ SCH (21:20)
[2017-01-24] MEDS: PRAVASTATIN SODIUM 20 MG TABLET GT SCH (21:20)
[2017-01-24] MEDS: LATANOPROST EYE DROP 0.005% 2.5 ML BOTTLE EACHEYE SCH (21:20)
[2017-01-25] MEDS: ALBUTEROL HALF STRENGTH 1.25 MG/3 ML VIAL.NEB NEB SCH ×4 (02:25→20:09)
[2017-01-25] MEDS: MEROPENEM 500 MG in IV NS 0.9% 50 ML IV SCH ×3 (05:00→20:12)
[2017-01-25] MEDS: CHLORHEXIDINE GLUCONATE 15 ML UDC MM SCH ×2 (05:52→17:12)
[2017-01-25 07:47] VITALS: BP 130/81
[2017-01-25] MEDS: FINASTERIDE (5 MG) 5 MG TABLET GT SCH (08:41)
[2017-01-25] MEDS: ASPIRIN 81 MG TAB.CHEW GT SCH (08:41)
[2017-01-25] MEDS: PROSOURCE / PROSTAT (PYXIS) 30 ML UDC GT SCH (08:41)
[2017-01-25] MEDS: DOXAZOSIN MESYLATE 8 MG GT SCH (08:41)
[2017-01-25] MEDS: CHOLECALCIFEROL (VITAMIN D 3) 400 UNIT TABLET GT SCH ×2 (08:41→21:24)
[2017-01-25] MEDS: POTASSIUM CHLORIDE 10 MEQ GT SCH (08:41)
[2017-01-25] MEDS: RIFAXIMIN 550 MG TABLET PO SCH ×2 (08:41→17:12)
[2017-01-25] MEDS: VITAMINS A AND D 56.7 GM TUBE TP SCH ×4 (10:00→21:24)
[2017-01-25] MEDS: HYDROGEN PEROXIDE 480 ML BOTTLE TP SCH ×2 (10:00→21:24)
[2017-01-25] MEDS: Z GUARD REMEDY 4 OZ OINT TP SCH ×2 (10:00→21:24)
[2017-01-25] MEDS: FIBERSOURCE HN 1,000 ML BOTTLE GT PRN (11:45)
[2017-01-25] MEDS: PRUNE JUICE GT SCH (11:50)
[2017-01-25] MEDS: HYDROCODONE/APAP 7.5/325MG 1 EACH TABLET GT PRN (12:30)
--- NOTE | 2017-01-25 18:26 | NUR ---
Received order to check pt's BUN and creatinine since pt is on Meropenem IV per IV pharmacist Arabella's recommendation.
[2017-01-25 20:02] VITALS: BP_SYST 109
[2017-01-25] MEDS: METHYLNALTREXONE BROMIDE 12 MG/0.6 ML VIAL SQ SCH (21:24)
[2017-01-25] MEDS: PRAVASTATIN SODIUM 20 MG TABLET GT SCH (21:25)
[2017-01-25] MEDS: LATANOPROST EYE DROP 0.005% 2.5 ML BOTTLE EACHEYE SCH (21:25)
[2017-01-26] MEDS: ALBUTEROL HALF STRENGTH 1.25 MG/3 ML VIAL.NEB NEB SCH ×4 (02:25→20:29)
[2017-01-26] MEDS: CHLORHEXIDINE GLUCONATE 15 ML UDC MM SCH ×2 (06:24→17:37)
[2017-01-26 07:04] LABS: CREATININE 0.6 mg/dL (0.6-1.3)
[2017-01-26 08:00] VITALS: BP 118/68
[2017-01-26] MEDS: FINASTERIDE (5 MG) 5 MG TABLET GT SCH (08:39)
[2017-01-26] MEDS: DOXAZOSIN MESYLATE 8 MG GT SCH (08:39)
[2017-01-26] MEDS: RIFAXIMIN 550 MG TABLET PO SCH ×2 (08:39→17:37)
[2017-01-26] MEDS: POTASSIUM CHLORIDE 10 MEQ GT SCH (08:39)
[2017-01-26] MEDS: PROSOURCE / PROSTAT (PYXIS) 30 ML UDC GT SCH (08:39)
[2017-01-26] MEDS: ASPIRIN 81 MG TAB.CHEW GT SCH (08:39)
[2017-01-26] MEDS: CHOLECALCIFEROL (VITAMIN D 3) 400 UNIT TABLET GT SCH ×2 (08:39→21:02)
[2017-01-26] MEDS: HYDROGEN PEROXIDE 480 ML BOTTLE TP SCH ×2 (10:00→21:02)
[2017-01-26] MEDS: Z GUARD REMEDY 4 OZ OINT TP SCH ×2 (10:00→21:02)
[2017-01-26] MEDS: VITAMINS A AND D 56.7 GM TUBE TP SCH ×4 (10:00→21:02)
[2017-01-26] MEDS: PRUNE JUICE GT SCH (11:40)
[2017-01-26] MEDS: MEROPENEM 500 MG in IV NS 0.9% 50 ML IV SCH ×2 (13:08→20:27)
[2017-01-26] MEDS: FIBERSOURCE HN 1,000 ML BOTTLE GT PRN (13:17)
[2017-01-26] MEDS: HYDROCODONE/APAP 7.5/325MG 1 EACH TABLET GT PRN (15:30)
[2017-01-26 19:58] VITALS: BP 124/75
[2017-01-26] MEDS: LATANOPROST EYE DROP 0.005% 2.5 ML BOTTLE EACHEYE SCH (21:02)
[2017-01-26] MEDS: METHYLNALTREXONE BROMIDE 12 MG/0.6 ML VIAL SQ SCH (21:02)
[2017-01-26] MEDS: PRAVASTATIN SODIUM 20 MG TABLET GT SCH (21:03)
[2017-01-27] MEDS: HYDROCODONE/APAP 7.5/325MG 1 EACH TABLET GT PRN (00:12)
[2017-01-27] MEDS: ALBUTEROL HALF STRENGTH 1.25 MG/3 ML VIAL.NEB NEB SCH ×4 (02:13→19:30)
[2017-01-27] MEDS: CHLORHEXIDINE GLUCONATE 15 ML UDC MM SCH ×2 (06:00→17:19)
[2017-01-27 07:32] VITALS: BP 117/72
[2017-01-27] MEDS: ASPIRIN 81 MG TAB.CHEW GT SCH (08:08)
[2017-01-27] MEDS: HYDROGEN PEROXIDE 480 ML BOTTLE TP SCH ×2 (08:09→21:09)
[2017-01-27] MEDS: PROSOURCE / PROSTAT (PYXIS) 30 ML UDC GT SCH (08:09)
[2017-01-27] MEDS: DOXAZOSIN MESYLATE 8 MG GT SCH (08:09)
[2017-01-27] MEDS: FINASTERIDE (5 MG) 5 MG TABLET GT SCH (08:09)
[2017-01-27] MEDS: VITAMINS A AND D 56.7 GM TUBE TP SCH ×4 (08:09→21:09)
[2017-01-27] MEDS: RIFAXIMIN 550 MG TABLET PO SCH ×2 (08:09→16:32)
[2017-01-27] MEDS: Z GUARD REMEDY 4 OZ OINT TP SCH ×2 (08:09→21:09)
[2017-01-27] MEDS: CHOLECALCIFEROL (VITAMIN D 3) 400 UNIT TABLET GT SCH ×2 (08:09→21:08)
[2017-01-27] MEDS: POTASSIUM CHLORIDE 10 MEQ GT SCH (08:09)
[2017-01-27] MEDS: PRUNE JUICE GT SCH (11:30)
[2017-01-27] MEDS: FIBERSOURCE HN 1,000 ML BOTTLE GT PRN (11:30)
[2017-01-27] MEDS: MEROPENEM 500 MG in IV NS 0.9% 50 ML IV SCH ×3 (13:00→21:54)
[2017-01-27 20:08] VITALS: BP 117/72
[2017-01-27] MEDS: METHYLNALTREXONE BROMIDE 12 MG/0.6 ML VIAL SQ SCH (21:08)
[2017-01-27] MEDS: PRAVASTATIN SODIUM 20 MG TABLET GT SCH (21:09)
[2017-01-27] MEDS: LATANOPROST EYE DROP 0.005% 2.5 ML BOTTLE EACHEYE SCH (21:09)
[2017-01-28] MEDS: ALBUTEROL HALF STRENGTH 1.25 MG/3 ML VIAL.NEB NEB SCH ×4 (00:41→19:30)
[2017-01-28] MEDS: CHLORHEXIDINE GLUCONATE 15 ML UDC MM SCH ×2 (05:04→17:27)
[2017-01-28] MEDS: FIBERSOURCE HN 1,000 ML BOTTLE GT PRN ×2 (05:23→18:17)
[2017-01-28] MEDS: HYDROCODONE/APAP 7.5/325MG 1 EACH TABLET GT PRN (05:24)
[2017-01-28] MEDS: MEROPENEM 500 MG in IV NS 0.9% 50 ML IV SCH ×3 (05:44→20:34)
[2017-01-28 07:47] VITALS: BP 119/73
[2017-01-28] MEDS: PROSOURCE / PROSTAT (PYXIS) 30 ML UDC GT SCH (08:32)
[2017-01-28] MEDS: CHOLECALCIFEROL (VITAMIN D 3) 400 UNIT TABLET GT SCH ×2 (08:32→21:08)
[2017-01-28] MEDS: POTASSIUM CHLORIDE 10 MEQ GT SCH (08:32)
[2017-01-28] MEDS: DOXAZOSIN MESYLATE 8 MG GT SCH (08:32)
[2017-01-28] MEDS: RIFAXIMIN 550 MG TABLET PO SCH ×2 (08:32→17:27)
[2017-01-28] MEDS: ASPIRIN 81 MG TAB.CHEW GT SCH (08:32)
[2017-01-28] MEDS: FINASTERIDE (5 MG) 5 MG TABLET GT SCH (08:32)
[2017-01-28] MEDS: Z GUARD REMEDY 4 OZ OINT TP SCH ×2 (10:00→21:08)
[2017-01-28] MEDS: HYDROGEN PEROXIDE 480 ML BOTTLE TP SCH ×2 (10:00→21:08)
[2017-01-28] MEDS: VITAMINS A AND D 56.7 GM TUBE TP SCH ×4 (10:00→21:08)
[2017-01-28] MEDS: PRUNE JUICE GT SCH (12:00)
[2017-01-28] MEDS: SIMETHICONE SUSP 40 MG/0.6 ML BOTTLE GT PRN ×2 (18:00→18:41)
[2017-01-28 20:02] VITALS: BP 130/81
[2017-01-28] MEDS: LATANOPROST EYE DROP 0.005% 2.5 ML BOTTLE EACHEYE SCH (21:08)
[2017-01-28] MEDS: PRAVASTATIN SODIUM 20 MG TABLET GT SCH (21:08)
[2017-01-28] MEDS: METHYLNALTREXONE BROMIDE 12 MG/0.6 ML VIAL SQ SCH (21:08)
[2017-01-29] MEDS: HYDROCODONE/APAP 7.5/325MG 1 EACH TABLET GT PRN ×2 (00:05→15:15)
[2017-01-29] MEDS: FIBERSOURCE HN 1,000 ML BOTTLE GT PRN (01:09)
[2017-01-29] MEDS: ALBUTEROL HALF STRENGTH 1.25 MG/3 ML VIAL.NEB NEB SCH ×4 (02:01→19:42)
[2017-01-29] MEDS: CHLORHEXIDINE GLUCONATE 15 ML UDC MM SCH ×2 (05:11→17:39)
[2017-01-29 07:37] VITALS: BP 123/73
[2017-01-29] MEDS: RIFAXIMIN 550 MG TABLET PO SCH ×2 (08:04→17:39)
[2017-01-29] MEDS: ASPIRIN 81 MG TAB.CHEW GT SCH (08:04)
[2017-01-29] MEDS: FINASTERIDE (5 MG) 5 MG TABLET GT SCH (08:04)
[2017-01-29] MEDS: DOXAZOSIN MESYLATE 8 MG GT SCH (08:04)
[2017-01-29] MEDS: POTASSIUM CHLORIDE 10 MEQ GT SCH (08:04)
[2017-01-29] MEDS: CHOLECALCIFEROL (VITAMIN D 3) 400 UNIT TABLET GT SCH ×2 (08:04→21:14)
[2017-01-29] MEDS: PROSOURCE / PROSTAT (PYXIS) 30 ML UDC GT SCH (08:04)
[2017-01-29] MEDS: VITAMINS A AND D 56.7 GM TUBE TP SCH ×4 (09:00→21:14)
[2017-01-29] MEDS: Z GUARD REMEDY 4 OZ OINT TP SCH ×2 (09:00→21:14)
[2017-01-29] MEDS: HYDROGEN PEROXIDE 480 ML BOTTLE TP SCH ×2 (09:00→21:14)
[2017-01-29] MEDS: PRUNE JUICE GT SCH (12:14)
[2017-01-29 20:45] VITALS: BP 120/74
[2017-01-29] MEDS: METHYLNALTREXONE BROMIDE 12 MG/0.6 ML VIAL SQ SCH (21:14)
[2017-01-29] MEDS: LATANOPROST EYE DROP 0.005% 2.5 ML BOTTLE EACHEYE SCH (21:15)
[2017-01-29] MEDS: PRAVASTATIN SODIUM 20 MG TABLET GT SCH (21:15)
[2017-01-30] MEDS: ALBUTEROL HALF STRENGTH 1.25 MG/3 ML VIAL.NEB NEB SCH ×4 (01:31→19:57)
[2017-01-30] MEDS: FIBERSOURCE HN 1,000 ML BOTTLE GT PRN (05:02)
[2017-01-30] MEDS: CHLORHEXIDINE GLUCONATE 15 ML UDC MM SCH ×2 (06:34→17:48)
[2017-01-30 07:32] VITALS: BP 115/78
[2017-01-30] MEDS: PROSOURCE / PROSTAT (PYXIS) 30 ML UDC GT SCH (08:11)
[2017-01-30] MEDS: RIFAXIMIN 550 MG TABLET PO SCH ×2 (08:11→16:16)
[2017-01-30] MEDS: ASPIRIN 81 MG TAB.CHEW GT SCH (08:11)
[2017-01-30] MEDS: Z GUARD REMEDY 4 OZ OINT TP SCH ×2 (08:11→21:00)
[2017-01-30] MEDS: DOXAZOSIN MESYLATE 8 MG GT SCH (08:11)
[2017-01-30] MEDS: HYDROGEN PEROXIDE 480 ML BOTTLE TP SCH ×2 (08:11→21:00)
[2017-01-30] MEDS: VITAMINS A AND D 56.7 GM TUBE TP SCH ×4 (08:11→21:00)
[2017-01-30] MEDS: CHOLECALCIFEROL (VITAMIN D 3) 400 UNIT TABLET GT SCH ×2 (08:11→21:00)
[2017-01-30] MEDS: POTASSIUM CHLORIDE 10 MEQ GT SCH (08:11)
[2017-01-30] MEDS: FINASTERIDE (5 MG) 5 MG TABLET GT SCH (08:11)
[2017-01-30] MEDS: HYDROCODONE/APAP 7.5/325MG 1 EACH TABLET GT PRN (10:06)
[2017-01-30] MEDS: PRUNE JUICE GT SCH (12:38)
--- NOTE | 2017-01-30 13:15 | NUR ---
Dr. Edwards came to see pt. He ordered to DC contact isolation for ESBL urine. Explained to him that according to Infection Control's policy, there has to be 3 negative cultures to be able to DC isolation. 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 Dr. Edwards said to DC isolation since pt's ESBL is colonized and that he will talk with Infection Control staff. He notified pt's that he is discontinuing isolation.
[2017-01-30] MEDS: PRAVASTATIN SODIUM 20 MG TABLET GT SCH (21:00)
[2017-01-30] MEDS: METHYLNALTREXONE BROMIDE 12 MG/0.6 ML VIAL SQ SCH (21:00)
[2017-01-30] MEDS: LATANOPROST EYE DROP 0.005% 2.5 ML BOTTLE EACHEYE SCH (21:00)
[2017-01-31] MEDS: ALBUTEROL HALF STRENGTH 1.25 MG/3 ML VIAL.NEB NEB SCH ×4 (02:22→19:32)
[2017-01-31] MEDS: FIBERSOURCE HN 1,000 ML BOTTLE GT PRN (05:15)
[2017-01-31] MEDS: CHLORHEXIDINE GLUCONATE 15 ML UDC MM SCH ×2 (05:15→17:11)
[2017-01-31 08:04] VITALS: BP 119/74
[2017-01-31] MEDS: PROSOURCE / PROSTAT (PYXIS) 30 ML UDC GT SCH (09:52)
[2017-01-31] MEDS: POTASSIUM CHLORIDE 10 MEQ GT SCH (09:52)
[2017-01-31] MEDS: FINASTERIDE (5 MG) 5 MG TABLET GT SCH (09:52)
[2017-01-31] MEDS: CHOLECALCIFEROL (VITAMIN D 3) 400 UNIT TABLET GT SCH ×2 (09:52→21:25)
[2017-01-31] MEDS: ASPIRIN 81 MG TAB.CHEW GT SCH (09:52)
[2017-01-31] MEDS: RIFAXIMIN 550 MG TABLET PO SCH ×2 (09:52→17:10)
[2017-01-31] MEDS: DOXAZOSIN MESYLATE 8 MG GT SCH (09:52)
[2017-01-31] MEDS: Z GUARD REMEDY 4 OZ OINT TP SCH ×2 (09:53→21:26)
[2017-01-31] MEDS: HYDROGEN PEROXIDE 480 ML BOTTLE TP SCH ×2 (09:53→21:26)
[2017-01-31] MEDS: VITAMINS A AND D 56.7 GM TUBE TP SCH ×4 (09:53→21:26)
[2017-01-31] MEDS: PRUNE JUICE GT SCH (11:35)
[2017-01-31] MEDS: HYDROCODONE/APAP 7.5/325MG 1 EACH TABLET GT PRN (11:36)
[2017-01-31 20:28] VITALS: BP 132/71
[2017-01-31] MEDS: METHYLNALTREXONE BROMIDE 12 MG/0.6 ML VIAL SQ SCH (21:25)
[2017-01-31] MEDS: LATANOPROST EYE DROP 0.005% 2.5 ML BOTTLE EACHEYE SCH (21:26)
[2017-01-31] MEDS: PRAVASTATIN SODIUM 20 MG TABLET GT SCH (21:26)
[2017-02-01] MEDS: ALBUTEROL HALF STRENGTH 1.25 MG/3 ML VIAL.NEB NEB SCH ×3 (01:20→19:30)
[2017-02-01] MEDS: CHLORHEXIDINE GLUCONATE 15 ML UDC MM SCH ×2 (05:47→17:03)
[2017-02-01] MEDS: PROSOURCE / PROSTAT (PYXIS) 30 ML UDC GT SCH (08:09)
[2017-02-01] MEDS: RIFAXIMIN 550 MG TABLET PO SCH ×2 (08:09→17:03)
[2017-02-01] MEDS: POTASSIUM CHLORIDE 10 MEQ GT SCH (08:09)
[2017-02-01] MEDS: ASPIRIN 81 MG TAB.CHEW GT SCH (08:09)
[2017-02-01] MEDS: FINASTERIDE (5 MG) 5 MG TABLET GT SCH (08:09)
[2017-02-01] MEDS: CHOLECALCIFEROL (VITAMIN D 3) 400 UNIT TABLET GT SCH ×2 (08:09→21:26)
[2017-02-01] MEDS: DOXAZOSIN MESYLATE 8 MG GT SCH (08:09)
[2017-02-01] MEDS: Z GUARD REMEDY 4 OZ OINT TP SCH ×2 (10:30→21:27)
[2017-02-01] MEDS: HYDROGEN PEROXIDE 480 ML BOTTLE TP SCH ×2 (10:30→21:26)
[2017-02-01] MEDS: VITAMINS A AND D 56.7 GM TUBE TP SCH ×4 (10:30→21:27)
[2017-02-01] MEDS: HYDROCODONE/APAP 7.5/325MG 1 EACH TABLET GT PRN (10:54)
[2017-02-01] MEDS: PRUNE JUICE GT SCH (12:00)
[2017-02-01] MEDS: FIBERSOURCE HN 1,000 ML BOTTLE GT PRN (13:33)
[2017-02-01 20:10] VITALS: BP 117/73
[2017-02-01] MEDS: METHYLNALTREXONE BROMIDE 12 MG/0.6 ML VIAL SQ SCH (21:26)
[2017-02-01] MEDS: PRAVASTATIN SODIUM 20 MG TABLET GT SCH (21:27)
[2017-02-01] MEDS: LATANOPROST EYE DROP 0.005% 2.5 ML BOTTLE EACHEYE SCH (21:27)
[2017-02-02] MEDS: ALBUTEROL HALF STRENGTH 1.25 MG/3 ML VIAL.NEB NEB SCH ×4 (02:16→20:05)
[2017-02-02] MEDS: CHLORHEXIDINE GLUCONATE 15 ML UDC MM SCH ×2 (05:47→16:45)
[2017-02-02] MEDS: FIBERSOURCE HN 1,000 ML BOTTLE GT PRN (07:31)
[2017-02-02 08:00] VITALS: BP 104/64
[2017-02-02] MEDS: ASPIRIN 81 MG TAB.CHEW GT SCH (08:05)
[2017-02-02] MEDS: DOXAZOSIN MESYLATE 8 MG GT SCH (08:05)
[2017-02-02] MEDS: PROSOURCE / PROSTAT (PYXIS) 30 ML UDC GT SCH (08:05)
[2017-02-02] MEDS: POTASSIUM CHLORIDE 10 MEQ GT SCH (08:05)
[2017-02-02] MEDS: FINASTERIDE (5 MG) 5 MG TABLET GT SCH (08:05)
[2017-02-02] MEDS: RIFAXIMIN 550 MG TABLET PO SCH ×2 (08:05→16:45)
[2017-02-02] MEDS: CHOLECALCIFEROL (VITAMIN D 3) 400 UNIT TABLET GT SCH ×2 (08:05→21:32)
[2017-02-02] MEDS: ACETAMINOPHEN 650 MG/20 ML UDC- FOR SA PATIENTS ONLY PO PRN (09:30)
--- NOTE | 2017-02-02 10:45 | NUR ---
Pt was seen by Dr. Mejia. Notified him that pt already completed IV ATB for UTI ESBL urine. Also notified him that pt's had an episode of cloudy urine with sediments as seen in the urinal. Pt remains afebrile. No new order.
[2017-02-02] MEDS: HYDROGEN PEROXIDE 480 ML BOTTLE TP SCH ×2 (11:00→21:32)
[2017-02-02] MEDS: Z GUARD REMEDY 4 OZ OINT TP SCH ×2 (11:00→21:32)
[2017-02-02] MEDS: VITAMINS A AND D 56.7 GM TUBE TP SCH ×4 (11:00→21:32)
[2017-02-02] MEDS: PRUNE JUICE GT SCH (12:21)
[2017-02-02] MEDS: HYDROCODONE/APAP 7.5/325MG 1 EACH TABLET GT PRN (13:00)
[2017-02-02 19:43] VITALS: BP 116/75
[2017-02-02] MEDS: METHYLNALTREXONE BROMIDE 12 MG/0.6 ML VIAL SQ SCH (21:32)
[2017-02-02] MEDS: PRAVASTATIN SODIUM 20 MG TABLET GT SCH (21:33)
[2017-02-02] MEDS: LATANOPROST EYE DROP 0.005% 2.5 ML BOTTLE EACHEYE SCH (21:33)
[2017-02-03] MEDS: ALBUTEROL HALF STRENGTH 1.25 MG/3 ML VIAL.NEB NEB SCH ×4 (01:58→19:45)
[2017-02-03] MEDS: CHLORHEXIDINE GLUCONATE 15 ML UDC MM SCH ×2 (05:45→17:13)
[2017-02-03 07:55] VITALS: BP 124/74
[2017-02-03] MEDS: DOXAZOSIN MESYLATE 8 MG GT SCH (08:38)
[2017-02-03] MEDS: POTASSIUM CHLORIDE 10 MEQ GT SCH (08:38)
[2017-02-03] MEDS: ASPIRIN 81 MG TAB.CHEW GT SCH (08:38)
[2017-02-03] MEDS: CHOLECALCIFEROL (VITAMIN D 3) 400 UNIT TABLET GT SCH ×2 (08:39→21:16)
[2017-02-03] MEDS: RIFAXIMIN 550 MG TABLET PO SCH ×2 (08:39→16:31)
[2017-02-03] MEDS: PROSOURCE / PROSTAT (PYXIS) 30 ML UDC GT SCH (08:39)
[2017-02-03] MEDS: FINASTERIDE (5 MG) 5 MG TABLET GT SCH (08:39)
[2017-02-03] MEDS: HYDROGEN PEROXIDE 480 ML BOTTLE TP SCH ×2 (09:00→21:16)
[2017-02-03] MEDS: Z GUARD REMEDY 4 OZ OINT TP SCH ×2 (09:00→21:16)
[2017-02-03] MEDS: VITAMINS A AND D 56.7 GM TUBE TP SCH ×4 (09:00→21:17)
[2017-02-03] MEDS: PRUNE JUICE GT SCH (12:50)
--- NOTE | 2017-02-03 13:01 | NUR ---
Resident's attended support group meeting and shared her concerns. They will be addressed with subacute director Zara Roy.
[2017-02-03] MEDS: FIBERSOURCE HN 1,000 ML BOTTLE GT PRN (16:31)
[2017-02-03 19:44] VITALS: BP 126/72
[2017-02-03] MEDS: METHYLNALTREXONE BROMIDE 12 MG/0.6 ML VIAL SQ SCH (21:16)
[2017-02-03] MEDS: LATANOPROST EYE DROP 0.005% 2.5 ML BOTTLE EACHEYE SCH (21:17)
[2017-02-03] MEDS: PRAVASTATIN SODIUM 20 MG TABLET GT SCH (21:17)
[2017-02-04] MEDS: ALBUTEROL HALF STRENGTH 1.25 MG/3 ML VIAL.NEB NEB SCH ×4 (01:38→18:59)
[2017-02-04] MEDS: CHLORHEXIDINE GLUCONATE 15 ML UDC MM SCH ×2 (05:37→17:04)
[2017-02-04] MEDS: FIBERSOURCE HN 1,000 ML BOTTLE GT PRN (05:44)
[2017-02-04 07:40] VITALS: BP 132/61
[2017-02-04] MEDS: RIFAXIMIN 550 MG TABLET PO SCH ×2 (08:51→17:04)
[2017-02-04] MEDS: POTASSIUM CHLORIDE 10 MEQ GT SCH (08:51)
[2017-02-04] MEDS: Z GUARD REMEDY 4 OZ OINT TP SCH ×2 (08:51→21:20)
[2017-02-04] MEDS: ASPIRIN 81 MG TAB.CHEW GT SCH (08:51)
[2017-02-04] MEDS: PROSOURCE / PROSTAT (PYXIS) 30 ML UDC GT SCH (08:51)
[2017-02-04] MEDS: HYDROGEN PEROXIDE 480 ML BOTTLE TP SCH ×2 (08:51→21:20)
[2017-02-04] MEDS: VITAMINS A AND D 56.7 GM TUBE TP SCH ×4 (08:51→21:20)
[2017-02-04] MEDS: DOXAZOSIN MESYLATE 8 MG GT SCH (08:51)
[2017-02-04] MEDS: FINASTERIDE (5 MG) 5 MG TABLET GT SCH (08:51)
[2017-02-04] MEDS: CHOLECALCIFEROL (VITAMIN D 3) 400 UNIT TABLET GT SCH ×2 (08:51→21:21)
[2017-02-04] MEDS: HYDROCODONE/APAP 7.5/325MG 1 EACH TABLET GT PRN (10:44)
[2017-02-04] MEDS: PRUNE JUICE GT SCH (12:32)
[2017-02-04 20:48] VITALS: BP 105/63
[2017-02-04] MEDS: PRAVASTATIN SODIUM 20 MG TABLET GT SCH (21:20)
[2017-02-04] MEDS: LATANOPROST EYE DROP 0.005% 2.5 ML BOTTLE EACHEYE SCH (21:20)
[2017-02-04] MEDS: METHYLNALTREXONE BROMIDE 12 MG/0.6 ML VIAL SQ SCH (21:20)
[2017-02-05] MEDS: ALBUTEROL HALF STRENGTH 1.25 MG/3 ML VIAL.NEB NEB SCH ×4 (01:29→19:32)
[2017-02-05] MEDS: CHLORHEXIDINE GLUCONATE 15 ML UDC MM SCH ×2 (06:03→17:00)
[2017-02-05] MEDS: FIBERSOURCE HN 1,000 ML BOTTLE GT PRN (06:35)
[2017-02-05 07:36] VITALS: BP 125/73
[2017-02-05] MEDS: ASPIRIN 81 MG TAB.CHEW GT SCH (08:09)
[2017-02-05] MEDS: RIFAXIMIN 550 MG TABLET PO SCH ×2 (08:09→16:58)
[2017-02-05] MEDS: DOXAZOSIN MESYLATE 8 MG GT SCH (08:09)
[2017-02-05] MEDS: FINASTERIDE (5 MG) 5 MG TABLET GT SCH (08:09)
[2017-02-05] MEDS: PROSOURCE / PROSTAT (PYXIS) 30 ML UDC GT SCH (08:09)
[2017-02-05] MEDS: POTASSIUM CHLORIDE 10 MEQ GT SCH (08:09)
[2017-02-05] MEDS: CHOLECALCIFEROL (VITAMIN D 3) 400 UNIT TABLET GT SCH ×2 (08:09→20:59)
[2017-02-05] MEDS: HYDROGEN PEROXIDE 480 ML BOTTLE TP SCH ×2 (09:00→21:00)
[2017-02-05] MEDS: Z GUARD REMEDY 4 OZ OINT TP SCH ×2 (11:27→21:00)
[2017-02-05] MEDS: VITAMINS A AND D 56.7 GM TUBE TP SCH ×4 (11:27→21:00)
[2017-02-05] MEDS: HYDROCODONE/APAP 7.5/325MG 1 EACH TABLET GT PRN ×2 (11:27→21:01)
[2017-02-05] MEDS: PRUNE JUICE GT SCH (11:27)
[2017-02-05 19:46] VITALS: BP 138/76
[2017-02-05] MEDS: METHYLNALTREXONE BROMIDE 12 MG/0.6 ML VIAL SQ SCH (20:59)
[2017-02-05] MEDS: PRAVASTATIN SODIUM 20 MG TABLET GT SCH (21:00)
[2017-02-05] MEDS: LATANOPROST EYE DROP 0.005% 2.5 ML BOTTLE EACHEYE SCH (21:00)
[2017-02-05] MEDS: MAGNESIUM HYDROXIDE 30 ML UDC GT PRN (21:00)
[2017-02-06] MEDS: ALBUTEROL HALF STRENGTH 1.25 MG/3 ML VIAL.NEB NEB SCH ×4 (01:20→20:21)
[2017-02-06] MEDS: BISACODYL SUPP (10 MG) 10 MG/SUPP.RECT SUPP.RECT RC PRN (03:33)
[2017-02-06] MEDS: CHLORHEXIDINE GLUCONATE 15 ML UDC MM SCH ×2 (05:29→18:16)
[2017-02-06] MEDS: FIBERSOURCE HN 1,000 ML BOTTLE GT PRN (05:32)
[2017-02-06 07:48] VITALS: BP 109/70
[2017-02-06] MEDS: HYDROGEN PEROXIDE 480 ML BOTTLE TP SCH ×2 (09:00→21:15)
[2017-02-06] MEDS: VITAMINS A AND D 56.7 GM TUBE TP SCH ×4 (09:00→21:15)
[2017-02-06] MEDS: Z GUARD REMEDY 4 OZ OINT TP SCH ×2 (09:00→21:15)
[2017-02-06] MEDS: [UNRECOGNIZED DRUG - OTHER] GT SCH (09:26)
[2017-02-06] MEDS: ASPIRIN 81 MG TAB.CHEW GT SCH (09:26)
[2017-02-06] MEDS: DOXAZOSIN MESYLATE 8 MG GT SCH (09:26)
[2017-02-06] MEDS: RIFAXIMIN 550 MG TABLET PO SCH ×2 (09:26→17:00)
[2017-02-06] MEDS: POTASSIUM CHLORIDE 10 MEQ GT SCH (09:26)
[2017-02-06] MEDS: FINASTERIDE (5 MG) 5 MG TABLET GT SCH (09:26)
[2017-02-06] MEDS: PROSOURCE / PROSTAT (PYXIS) 30 ML UDC GT SCH (09:26)
[2017-02-06] MEDS: CHOLECALCIFEROL (VITAMIN D 3) 400 UNIT TABLET GT SCH ×2 (09:26→21:14)
[2017-02-06] MEDS: PRUNE JUICE GT SCH (12:00)
[2017-02-06] MEDS: HYDROCODONE/APAP 7.5/325MG 1 EACH TABLET GT PRN (18:17)
[2017-02-06 19:42] VITALS: BP 111/70
[2017-02-06] MEDS: METHYLNALTREXONE BROMIDE 12 MG/0.6 ML VIAL SQ SCH (21:14)
[2017-02-06] MEDS: PRAVASTATIN SODIUM 20 MG TABLET GT SCH (21:15)
[2017-02-06] MEDS: LATANOPROST EYE DROP 0.005% 2.5 ML BOTTLE EACHEYE SCH (21:15)
[2017-02-07] MEDS: ALBUTEROL HALF STRENGTH 1.25 MG/3 ML VIAL.NEB NEB SCH ×4 (01:36→19:30)
[2017-02-07] MEDS: CHLORHEXIDINE GLUCONATE 15 ML UDC MM SCH ×2 (05:22→17:39)
[2017-02-07] MEDS: FIBERSOURCE HN 1,000 ML BOTTLE GT PRN (05:22)
[2017-02-07 07:52] VITALS: BP 115/61
[2017-02-07] MEDS: ASPIRIN 81 MG TAB.CHEW GT SCH (08:59)
[2017-02-07] MEDS: [UNRECOGNIZED DRUG - OTHER] GT SCH (08:59)
[2017-02-07] MEDS: POTASSIUM CHLORIDE 10 MEQ GT SCH (08:59)
[2017-02-07] MEDS: DOXAZOSIN MESYLATE 8 MG GT SCH (08:59)
[2017-02-07] MEDS: RIFAXIMIN 550 MG TABLET PO SCH ×2 (09:00→17:39)
[2017-02-07] MEDS: Z GUARD REMEDY 4 OZ OINT TP SCH ×2 (09:00→21:00)
[2017-02-07] MEDS: HYDROGEN PEROXIDE 480 ML BOTTLE TP SCH ×2 (09:00→21:00)
[2017-02-07] MEDS: FINASTERIDE (5 MG) 5 MG TABLET GT SCH (09:00)
[2017-02-07] MEDS: PROSOURCE / PROSTAT (PYXIS) 30 ML UDC GT SCH (09:00)
[2017-02-07] MEDS: CHOLECALCIFEROL (VITAMIN D 3) 400 UNIT TABLET GT SCH ×2 (09:00→20:59)
[2017-02-07] MEDS: VITAMINS A AND D 56.7 GM TUBE TP SCH ×4 (09:01→21:00)
[2017-02-07] MEDS: PRUNE JUICE GT SCH (12:00)
--- NOTE | 2017-02-07 13:00 | NUR ---
Seen and examined by Dr. Edwards with no new order given.
[2017-02-07] MEDS: HYDROCODONE/APAP 7.5/325MG 1 EACH TABLET GT PRN (13:49)
[2017-02-07 19:55] VITALS: BP 135/79
[2017-02-07] MEDS: METHYLNALTREXONE BROMIDE 12 MG/0.6 ML VIAL SQ SCH (20:59)
[2017-02-07] MEDS: PRAVASTATIN SODIUM 20 MG TABLET GT SCH (21:29)
[2017-02-07] MEDS: LATANOPROST EYE DROP 0.005% 2.5 ML BOTTLE EACHEYE SCH (21:29)
[2017-02-08] MEDS: ALBUTEROL HALF STRENGTH 1.25 MG/3 ML VIAL.NEB NEB SCH ×4 (02:23→20:04)
[2017-02-08] MEDS: FIBERSOURCE HN 1,000 ML BOTTLE GT PRN (03:26)
[2017-02-08] MEDS: CHLORHEXIDINE GLUCONATE 15 ML UDC MM SCH ×2 (05:47→17:03)
[2017-02-08 08:00] VITALS: BP 112/68
[2017-02-08] MEDS: FINASTERIDE (5 MG) 5 MG TABLET GT SCH (09:12)
[2017-02-08] MEDS: POTASSIUM CHLORIDE 10 MEQ GT SCH (09:12)
[2017-02-08] MEDS: DOXAZOSIN MESYLATE 8 MG GT SCH (09:12)
[2017-02-08] MEDS: PROSOURCE / PROSTAT (PYXIS) 30 ML UDC GT SCH (09:12)
[2017-02-08] MEDS: ASPIRIN 81 MG TAB.CHEW GT SCH (09:12)
[2017-02-08] MEDS: [UNRECOGNIZED DRUG - OTHER] GT SCH (09:12)
[2017-02-08] MEDS: Z GUARD REMEDY 4 OZ OINT TP SCH ×2 (09:13→21:08)
[2017-02-08] MEDS: VITAMINS A AND D 56.7 GM TUBE TP SCH ×4 (09:13→21:08)
[2017-02-08] MEDS: CHOLECALCIFEROL (VITAMIN D 3) 400 UNIT TABLET GT SCH ×2 (09:13→21:07)
[2017-02-08] MEDS: HYDROGEN PEROXIDE 480 ML BOTTLE TP SCH ×2 (09:13→21:07)
[2017-02-08] MEDS: RIFAXIMIN 550 MG TABLET PO SCH ×2 (09:13→17:03)
[2017-02-08] MEDS: PRUNE JUICE GT SCH (12:00)
[2017-02-08 19:51] VITALS: BP 130/82
[2017-02-08] MEDS: METHYLNALTREXONE BROMIDE 12 MG/0.6 ML VIAL SQ SCH (21:07)
[2017-02-08] MEDS: PRAVASTATIN SODIUM 20 MG TABLET GT SCH (21:34)
[2017-02-08] MEDS: LATANOPROST EYE DROP 0.005% 2.5 ML BOTTLE EACHEYE SCH (21:34)
[2017-02-09] MEDS: ALBUTEROL HALF STRENGTH 1.25 MG/3 ML VIAL.NEB NEB SCH ×4 (01:30→20:28)
[2017-02-09] MEDS: CHLORHEXIDINE GLUCONATE 15 ML UDC MM SCH ×2 (05:45→18:26)
[2017-02-09] MEDS: FIBERSOURCE HN 1,000 ML BOTTLE GT PRN (05:45)
[2017-02-09] MEDS: ASPIRIN 81 MG TAB.CHEW GT SCH (08:25)
[2017-02-09] MEDS: DOXAZOSIN MESYLATE 8 MG GT SCH (08:26)
[2017-02-09] MEDS: POTASSIUM CHLORIDE 10 MEQ GT SCH (08:26)
[2017-02-09] MEDS: CHOLECALCIFEROL (VITAMIN D 3) 400 UNIT TABLET GT SCH ×2 (08:26→20:55)
[2017-02-09] MEDS: PROSOURCE / PROSTAT (PYXIS) 30 ML UDC GT SCH (08:26)
[2017-02-09] MEDS: FINASTERIDE (5 MG) 5 MG TABLET GT SCH (08:26)
[2017-02-09] MEDS: [UNRECOGNIZED DRUG - OTHER] GT SCH (08:26)
[2017-02-09] MEDS: RIFAXIMIN 550 MG TABLET PO SCH ×2 (08:26→17:00)
[2017-02-09 08:58] VITALS: BP 114/67
[2017-02-09] MEDS: VITAMINS A AND D 56.7 GM TUBE TP SCH ×4 (09:00→20:56)
[2017-02-09] MEDS: Z GUARD REMEDY 4 OZ OINT TP SCH ×2 (09:00→20:56)
[2017-02-09] MEDS: HYDROGEN PEROXIDE 480 ML BOTTLE TP SCH ×2 (09:00→20:55)
[2017-02-09] MEDS: PRUNE JUICE GT SCH (12:10)
[2017-02-09 19:54] VITALS: BP 146/70
[2017-02-09] MEDS: METHYLNALTREXONE BROMIDE 12 MG/0.6 ML VIAL SQ SCH (20:55)
[2017-02-09] MEDS: PRAVASTATIN SODIUM 20 MG TABLET GT SCH (21:19)
[2017-02-09] MEDS: LATANOPROST EYE DROP 0.005% 2.5 ML BOTTLE EACHEYE SCH (22:24)
[2017-02-10] MEDS: ALBUTEROL HALF STRENGTH 1.25 MG/3 ML VIAL.NEB NEB SCH ×4 (01:49→20:29)
[2017-02-10] MEDS: FIBERSOURCE HN 1,000 ML BOTTLE GT PRN (05:49)
[2017-02-10] MEDS: CHLORHEXIDINE GLUCONATE 15 ML UDC MM SCH ×2 (05:50→18:07)
[2017-02-10 08:00] VITALS: BP 127/74
[2017-02-10] MEDS: Z GUARD REMEDY 4 OZ OINT TP SCH ×2 (09:08→21:28)
[2017-02-10] MEDS: FINASTERIDE (5 MG) 5 MG TABLET GT SCH (09:08)
[2017-02-10] MEDS: POTASSIUM CHLORIDE 10 MEQ GT SCH (09:08)
[2017-02-10] MEDS: RIFAXIMIN 550 MG TABLET PO SCH ×2 (09:08→16:51)
[2017-02-10] MEDS: PROSOURCE / PROSTAT (PYXIS) 30 ML UDC GT SCH (09:08)
[2017-02-10] MEDS: HYDROGEN PEROXIDE 480 ML BOTTLE TP SCH ×2 (09:08→21:28)
[2017-02-10] MEDS: CHOLECALCIFEROL (VITAMIN D 3) 400 UNIT TABLET GT SCH ×2 (09:08→21:28)
[2017-02-10] MEDS: ASPIRIN 81 MG TAB.CHEW GT SCH (09:08)
[2017-02-10] MEDS: DOXAZOSIN MESYLATE 8 MG GT SCH (09:08)
[2017-02-10] MEDS: VITAMINS A AND D 56.7 GM TUBE TP SCH ×4 (09:08→21:28)
[2017-02-10] MEDS: [UNRECOGNIZED DRUG - OTHER] GT SCH (09:20)
[2017-02-10] MEDS: HYDROCODONE/APAP 7.5/325MG 1 EACH TABLET GT PRN ×2 (10:59→18:00)
[2017-02-10] MEDS: PRUNE JUICE GT SCH (12:04)
[2017-02-10 19:57] VITALS: BP 124/80
[2017-02-10] MEDS: METHYLNALTREXONE BROMIDE 12 MG/0.6 ML VIAL SQ SCH (21:28)
[2017-02-10] MEDS: LATANOPROST EYE DROP 0.005% 2.5 ML BOTTLE EACHEYE SCH (21:28)
[2017-02-10] MEDS: PRAVASTATIN SODIUM 20 MG TABLET GT SCH (21:28)
[2017-02-11] MEDS: ALBUTEROL HALF STRENGTH 1.25 MG/3 ML VIAL.NEB NEB SCH ×4 (02:04→19:54)
[2017-02-11] MEDS: CHLORHEXIDINE GLUCONATE 15 ML UDC MM SCH ×2 (05:37→18:32)
[2017-02-11] MEDS: FIBERSOURCE HN 1,000 ML BOTTLE GT PRN (06:28)
[2017-02-11 08:03] VITALS: BP 134/83
[2017-02-11] MEDS: RIFAXIMIN 550 MG TABLET PO SCH ×2 (09:00→17:00)
[2017-02-11] MEDS: CHOLECALCIFEROL (VITAMIN D 3) 400 UNIT TABLET GT SCH ×2 (09:00→20:23)
[2017-02-11] MEDS: [UNRECOGNIZED DRUG - OTHER] GT SCH (09:00)
[2017-02-11] MEDS: Z GUARD REMEDY 4 OZ OINT TP SCH ×2 (09:00→20:24)
[2017-02-11] MEDS: VITAMINS A AND D 56.7 GM TUBE TP SCH ×4 (09:00→20:24)
[2017-02-11] MEDS: FINASTERIDE (5 MG) 5 MG TABLET GT SCH (09:00)
[2017-02-11] MEDS: ASPIRIN 81 MG TAB.CHEW GT SCH (09:00)
[2017-02-11] MEDS: HYDROGEN PEROXIDE 480 ML BOTTLE TP SCH ×2 (09:00→20:24)
[2017-02-11] MEDS: DOXAZOSIN MESYLATE 8 MG GT SCH (09:00)
[2017-02-11] MEDS: PROSOURCE / PROSTAT (PYXIS) 30 ML UDC GT SCH (09:00)
[2017-02-11] MEDS: POTASSIUM CHLORIDE 10 MEQ GT SCH (09:00)
[2017-02-11] MEDS: PRUNE JUICE GT SCH (12:00)
[2017-02-11 19:52] VITALS: BP 117/72
[2017-02-11] MEDS: METHYLNALTREXONE BROMIDE 12 MG/0.6 ML VIAL SQ SCH (20:23)
[2017-02-11] MEDS: HYDROCODONE/APAP 7.5/325MG 1 EACH TABLET GT PRN (20:25)
[2017-02-11] MEDS: PRAVASTATIN SODIUM 20 MG TABLET GT SCH (22:38)
[2017-02-11] MEDS: LATANOPROST EYE DROP 0.005% 2.5 ML BOTTLE EACHEYE SCH (22:38)
[2017-02-12] MEDS: ALBUTEROL HALF STRENGTH 1.25 MG/3 ML VIAL.NEB NEB SCH ×4 (01:33→19:21)
[2017-02-12] MEDS: CHLORHEXIDINE GLUCONATE 15 ML UDC MM SCH ×2 (06:48→17:15)
[2017-02-12 07:43] VITALS: BP 115/76
[2017-02-12] MEDS: PROSOURCE / PROSTAT (PYXIS) 30 ML UDC GT SCH (08:15)
[2017-02-12] MEDS: CHOLECALCIFEROL (VITAMIN D 3) 400 UNIT TABLET GT SCH ×2 (08:15→21:09)
[2017-02-12] MEDS: ASPIRIN 81 MG TAB.CHEW GT SCH (08:15)
[2017-02-12] MEDS: POTASSIUM CHLORIDE 10 MEQ GT SCH (08:15)
[2017-02-12] MEDS: DOXAZOSIN MESYLATE 8 MG GT SCH (08:15)
[2017-02-12] MEDS: FINASTERIDE (5 MG) 5 MG TABLET GT SCH (08:15)
[2017-02-12] MEDS: RIFAXIMIN 550 MG TABLET PO SCH ×2 (08:15→17:15)
[2017-02-12] MEDS: [UNRECOGNIZED DRUG - OTHER] GT SCH (08:15)
[2017-02-12] MEDS: VITAMINS A AND D 56.7 GM TUBE TP SCH ×4 (09:00→21:10)
[2017-02-12] MEDS: Z GUARD REMEDY 4 OZ OINT TP SCH ×2 (12:35→21:10)
[2017-02-12] MEDS: HYDROGEN PEROXIDE 480 ML BOTTLE TP SCH ×2 (12:35→21:10)
[2017-02-12] MEDS: PRUNE JUICE GT SCH (12:36)
[2017-02-12 20:17] VITALS: BP 112/69
[2017-02-12] MEDS: METHYLNALTREXONE BROMIDE 12 MG/0.6 ML VIAL SQ SCH (21:09)
[2017-02-12] MEDS: LATANOPROST EYE DROP 0.005% 2.5 ML BOTTLE EACHEYE SCH (21:10)
[2017-02-12] MEDS: PRAVASTATIN SODIUM 20 MG TABLET GT SCH (21:10)
[2017-02-13] MEDS: ALBUTEROL HALF STRENGTH 1.25 MG/3 ML VIAL.NEB NEB SCH ×4 (01:25→20:05)
[2017-02-13] MEDS: CHLORHEXIDINE GLUCONATE 15 ML UDC MM SCH ×2 (05:38→17:19)
[2017-02-13] MEDS: FIBERSOURCE HN 1,000 ML BOTTLE GT PRN (05:56)
[2017-02-13 08:08] VITALS: BP 136/69
[2017-02-13] MEDS: ASPIRIN 81 MG TAB.CHEW GT SCH (08:59)
[2017-02-13] MEDS: FINASTERIDE (5 MG) 5 MG TABLET GT SCH (08:59)
[2017-02-13] MEDS: Z GUARD REMEDY 4 OZ OINT TP SCH ×2 (09:00→21:03)
[2017-02-13] MEDS: HYDROGEN PEROXIDE 480 ML BOTTLE TP SCH ×2 (09:00→21:03)
[2017-02-13] MEDS: PROSOURCE / PROSTAT (PYXIS) 30 ML UDC GT SCH (09:00)
[2017-02-13] MEDS: CHOLECALCIFEROL (VITAMIN D 3) 400 UNIT TABLET GT SCH ×2 (09:00→20:57)
[2017-02-13] MEDS: POTASSIUM CHLORIDE 10 MEQ GT SCH (09:00)
[2017-02-13] MEDS: DOXAZOSIN MESYLATE 8 MG GT SCH (09:00)
[2017-02-13] MEDS: RIFAXIMIN 550 MG TABLET PO SCH ×2 (09:00→17:19)
[2017-02-13] MEDS: [UNRECOGNIZED DRUG - OTHER] GT SCH (09:00)
[2017-02-13] MEDS: VITAMINS A AND D 56.7 GM TUBE TP SCH ×4 (09:12→21:03)
[2017-02-13] MEDS: PRUNE JUICE GT SCH (12:00)
[2017-02-13 20:04] VITALS: BP 123/74
[2017-02-13] MEDS: METHYLNALTREXONE BROMIDE 12 MG/0.6 ML VIAL SQ SCH (21:01)
[2017-02-13] MEDS: LATANOPROST EYE DROP 0.005% 2.5 ML BOTTLE EACHEYE SCH (21:04)
[2017-02-13] MEDS: PRAVASTATIN SODIUM 20 MG TABLET GT SCH (21:04)
[2017-02-14] MEDS: ALBUTEROL HALF STRENGTH 1.25 MG/3 ML VIAL.NEB NEB SCH ×4 (02:20→19:43)
[2017-02-14] MEDS: FIBERSOURCE HN 1,000 ML BOTTLE GT PRN (03:37)
[2017-02-14] MEDS: CHLORHEXIDINE GLUCONATE 15 ML UDC MM SCH ×2 (05:29→18:10)
[2017-02-14 08:00] VITALS: BP 125/76
[2017-02-14] MEDS: DOXAZOSIN MESYLATE 8 MG GT SCH (08:47)
[2017-02-14] MEDS: ASPIRIN 81 MG TAB.CHEW GT SCH (08:47)
[2017-02-14] MEDS: RIFAXIMIN 550 MG TABLET PO SCH ×2 (08:48→17:00)
[2017-02-14] MEDS: PROSOURCE / PROSTAT (PYXIS) 30 ML UDC GT SCH (08:48)
[2017-02-14] MEDS: FINASTERIDE (5 MG) 5 MG TABLET GT SCH (08:48)
[2017-02-14] MEDS: [UNRECOGNIZED DRUG - OTHER] GT SCH (08:48)
[2017-02-14] MEDS: CHOLECALCIFEROL (VITAMIN D 3) 400 UNIT TABLET GT SCH ×2 (08:48→20:45)
[2017-02-14] MEDS: POTASSIUM CHLORIDE 10 MEQ GT SCH (08:48)
[2017-02-14] MEDS: HYDROGEN PEROXIDE 480 ML BOTTLE TP SCH ×2 (09:37→20:46)
[2017-02-14] MEDS: Z GUARD REMEDY 4 OZ OINT TP SCH ×2 (09:37→20:46)
[2017-02-14] MEDS: VITAMINS A AND D 56.7 GM TUBE TP SCH ×4 (09:37→20:46)
--- NOTE | 2017-02-14 10:00 | NUR ---
Pt noted with lump on left cheek. Pt c/o itchiness on area. Dr. Edwards notified, order obtained for hydrocortisone cream to be applied. Order noted and carried out, Pt's daughter Yisel notified via voicemail.
--- NOTE | 2017-02-14 11:40 | NUR ---
Pt's daughter Denise at bedside, notified her of lump on left cheek and current treatment order.
[2017-02-14] MEDS: PRUNE JUICE GT SCH (12:00)
[2017-02-14] MEDS: HYDROCORTISONE 1% CREAM 30 GM TUBE TP SCH ×2 (12:54→20:46)
[2017-02-14 19:47] VITALS: BP 140/80
[2017-02-14] MEDS: METHYLNALTREXONE BROMIDE 12 MG/0.6 ML VIAL SQ SCH (20:45)
[2017-02-14] MEDS: HYDROCODONE/APAP 7.5/325MG 1 EACH TABLET GT PRN (21:42)
[2017-02-14] MEDS: LATANOPROST EYE DROP 0.005% 2.5 ML BOTTLE EACHEYE SCH (21:57)
[2017-02-14] MEDS: PRAVASTATIN SODIUM 20 MG TABLET GT SCH (21:57)
[2017-02-15] MEDS: FIBERSOURCE HN 1,000 ML BOTTLE GT PRN (01:33)
[2017-02-15] MEDS: ALBUTEROL HALF STRENGTH 1.25 MG/3 ML VIAL.NEB NEB SCH ×4 (02:02→20:03)
[2017-02-15] MEDS: CHLORHEXIDINE GLUCONATE 15 ML UDC MM SCH ×2 (05:58→17:06)
[2017-02-15 08:00] VITALS: BP 127/88
[2017-02-15] MEDS: HYDROCORTISONE 1% CREAM 30 GM TUBE TP SCH ×2 (09:00→20:07)
[2017-02-15] MEDS: Z GUARD REMEDY 4 OZ OINT TP SCH ×2 (09:00→20:11)
[2017-02-15] MEDS: HYDROGEN PEROXIDE 480 ML BOTTLE TP SCH ×2 (09:00→20:11)
[2017-02-15] MEDS: VITAMINS A AND D 56.7 GM TUBE TP SCH ×4 (09:00→20:11)
[2017-02-15] MEDS: [UNRECOGNIZED DRUG - OTHER] GT SCH (09:01)
[2017-02-15] MEDS: DOXAZOSIN MESYLATE 8 MG GT SCH (09:01)
[2017-02-15] MEDS: ASPIRIN 81 MG TAB.CHEW GT SCH (09:01)
[2017-02-15] MEDS: FINASTERIDE (5 MG) 5 MG TABLET GT SCH (09:01)
[2017-02-15] MEDS: RIFAXIMIN 550 MG TABLET PO SCH ×2 (09:01→17:05)
[2017-02-15] MEDS: POTASSIUM CHLORIDE 10 MEQ GT SCH (09:01)
[2017-02-15] MEDS: PROSOURCE / PROSTAT (PYXIS) 30 ML UDC GT SCH (09:01)
[2017-02-15] MEDS: CHOLECALCIFEROL (VITAMIN D 3) 400 UNIT TABLET GT SCH ×2 (09:01→20:06)
[2017-02-15] MEDS: HYDROCODONE/APAP 7.5/325MG 1 EACH TABLET GT PRN (10:31)
[2017-02-15] MEDS: PRUNE JUICE GT SCH (12:00)
--- NOTE | 2017-02-15 13:11 | NUR ---
pt not in room for hhn treatment
[2017-02-15 19:33] VITALS: BP 125/70
--- NOTE | 2017-02-15 19:54 | NUR ---
Nurses Notes: @ around 1930, MANAGER PROCESS reported to Med Nurse that She noticed a discoloration on Pts R upper arm, picture is taken and got informed.
[2017-02-15] MEDS: METHYLNALTREXONE BROMIDE 12 MG/0.6 ML VIAL SQ SCH (20:07)
[2017-02-15] MEDS: PRAVASTATIN SODIUM 20 MG TABLET GT SCH (22:10)
[2017-02-15] MEDS: LATANOPROST EYE DROP 0.005% 2.5 ML BOTTLE EACHEYE SCH (22:10)
[2017-02-16] MEDS: ALBUTEROL HALF STRENGTH 1.25 MG/3 ML VIAL.NEB NEB SCH ×4 (01:30→20:16)
[2017-02-16] MEDS: FIBERSOURCE HN 1,000 ML BOTTLE GT PRN (05:44)
[2017-02-16] MEDS: CHLORHEXIDINE GLUCONATE 15 ML UDC MM SCH ×2 (05:44→18:46)
[2017-02-16] MEDS: [UNRECOGNIZED DRUG - OTHER] GT SCH (08:32)
[2017-02-16] MEDS: DOXAZOSIN MESYLATE 8 MG GT SCH (08:32)
[2017-02-16] MEDS: ASPIRIN 81 MG TAB.CHEW GT SCH (08:32)
[2017-02-16] MEDS: RIFAXIMIN 550 MG TABLET PO SCH ×2 (08:33→17:00)
[2017-02-16] MEDS: CHOLECALCIFEROL (VITAMIN D 3) 400 UNIT TABLET GT SCH ×2 (08:33→20:35)
[2017-02-16] MEDS: FINASTERIDE (5 MG) 5 MG TABLET GT SCH (08:33)
[2017-02-16] MEDS: PROSOURCE / PROSTAT (PYXIS) 30 ML UDC GT SCH (08:33)
[2017-02-16] MEDS: POTASSIUM CHLORIDE 10 MEQ GT SCH (08:33)
[2017-02-16] MEDS: Z GUARD REMEDY 4 OZ OINT TP SCH ×2 (09:00→20:37)
[2017-02-16] MEDS: HYDROGEN PEROXIDE 480 ML BOTTLE TP SCH ×2 (09:00→20:37)
[2017-02-16] MEDS: HYDROCORTISONE 1% CREAM 30 GM TUBE TP SCH ×2 (09:00→20:36)
[2017-02-16] MEDS: VITAMINS A AND D 56.7 GM TUBE TP SCH ×4 (09:00→20:37)
[2017-02-16] MEDS: PRUNE JUICE GT SCH (12:00)
[2017-02-16 20:00] VITALS: BP 115/84
[2017-02-16] MEDS: METHYLNALTREXONE BROMIDE 12 MG/0.6 ML VIAL SQ SCH (20:36)
[2017-02-16] MEDS: PRAVASTATIN SODIUM 20 MG TABLET GT SCH (21:05)
[2017-02-16] MEDS: LATANOPROST EYE DROP 0.005% 2.5 ML BOTTLE EACHEYE SCH (21:05)
[2017-02-17] MEDS: ALBUTEROL HALF STRENGTH 1.25 MG/3 ML VIAL.NEB NEB SCH ×4 (01:00→19:43)
[2017-02-17] MEDS: CHLORHEXIDINE GLUCONATE 15 ML UDC MM SCH ×2 (05:42→17:07)
[2017-02-17 07:56] VITALS: BP 122/78
[2017-02-17] MEDS: HYDROGEN PEROXIDE 480 ML BOTTLE TP SCH ×2 (08:39→21:19)
[2017-02-17] MEDS: POTASSIUM CHLORIDE 10 MEQ GT SCH (08:39)
[2017-02-17] MEDS: HYDROCORTISONE 1% CREAM 30 GM TUBE TP SCH ×2 (08:39→21:19)
[2017-02-17] MEDS: DOXAZOSIN MESYLATE 8 MG GT SCH (08:39)
[2017-02-17] MEDS: ASPIRIN 81 MG TAB.CHEW GT SCH (08:39)
[2017-02-17] MEDS: RIFAXIMIN 550 MG TABLET PO SCH ×2 (08:39→17:07)
[2017-02-17] MEDS: CHOLECALCIFEROL (VITAMIN D 3) 400 UNIT TABLET GT SCH ×2 (08:39→21:19)
[2017-02-17] MEDS: PROSOURCE / PROSTAT (PYXIS) 30 ML UDC GT SCH (08:39)
[2017-02-17] MEDS: VITAMINS A AND D 56.7 GM TUBE TP SCH ×4 (08:39→21:19)
[2017-02-17] MEDS: FINASTERIDE (5 MG) 5 MG TABLET GT SCH (08:39)
[2017-02-17] MEDS: [UNRECOGNIZED DRUG - OTHER] GT SCH (08:39)
[2017-02-17] MEDS: Z GUARD REMEDY 4 OZ OINT TP SCH ×2 (08:39→21:19)
[2017-02-17] MEDS: FIBERSOURCE HN 1,000 ML BOTTLE GT PRN (08:51)
[2017-02-17] MEDS: HYDROCODONE/APAP 7.5/325MG 1 EACH TABLET GT PRN (10:39)
[2017-02-17] MEDS: PRUNE JUICE GT SCH (11:46)
[2017-02-17 20:58] VITALS: BP 128/75
[2017-02-17] MEDS: PRAVASTATIN SODIUM 20 MG TABLET GT SCH (21:19)
[2017-02-17] MEDS: LATANOPROST EYE DROP 0.005% 2.5 ML BOTTLE EACHEYE SCH (21:19)
[2017-02-17] MEDS: METHYLNALTREXONE BROMIDE 12 MG/0.6 ML VIAL SQ SCH (21:19)
[2017-02-18] MEDS: ALBUTEROL HALF STRENGTH 1.25 MG/3 ML VIAL.NEB NEB SCH ×4 (01:28→20:22)
[2017-02-18] MEDS: CHLORHEXIDINE GLUCONATE 15 ML UDC MM SCH ×2 (05:58→17:58)
[2017-02-18] MEDS: FIBERSOURCE HN 1,000 ML BOTTLE GT PRN (06:45)
[2017-02-18 07:53] VITALS: BP 146/89
[2017-02-18] MEDS ORDERED: RIFAXIMIN 550 MG TABLET PO ONE (07:58)
[2017-02-18] MEDS: CHOLECALCIFEROL (VITAMIN D 3) 400 UNIT TABLET GT SCH ×2 (08:05→20:59)
[2017-02-18] MEDS: FINASTERIDE (5 MG) 5 MG TABLET GT SCH ×2 (08:05→09:24)
[2017-02-18] MEDS: PROSOURCE / PROSTAT (PYXIS) 30 ML UDC GT SCH (08:05)
[2017-02-18] MEDS: ASPIRIN 81 MG TAB.CHEW GT SCH ×2 (08:05→09:24)
[2017-02-18] MEDS: POTASSIUM CHLORIDE 10 MEQ GT SCH (08:05)
[2017-02-18] MEDS: [UNRECOGNIZED DRUG - OTHER] GT SCH (08:05)
[2017-02-18] MEDS: DOXAZOSIN MESYLATE 8 MG GT SCH (08:05)
[2017-02-18] MEDS: RIFAXIMIN 550 MG TABLET PO SCH ×3 (08:05→17:58)
[2017-02-18] MEDS: HYDROCORTISONE 1% CREAM 30 GM TUBE TP SCH ×2 (08:05→20:59)
[2017-02-18] MEDS: VITAMINS A AND D 56.7 GM TUBE TP SCH ×4 (08:06→21:00)
[2017-02-18] MEDS: Z GUARD REMEDY 4 OZ OINT TP SCH ×2 (08:06→20:59)
[2017-02-18] MEDS: HYDROGEN PEROXIDE 480 ML BOTTLE TP SCH ×2 (08:06→20:59)
[2017-02-18] MEDS ORDERED: BISACODYL SUPP (10 MG) 10 MG/SUPP.RECT SUPP.RECT RC PRN (09:00)
[2017-02-18] MEDS ORDERED: FINASTERIDE (5 MG) 5 MG TABLET GT SCH (09:00)
--- NOTE | 2017-02-18 10:58 | NUR ---
Qing faxed podiatry referral to Dr. Silverio (cruise counselor- [id number] [facility] [address] [place] [address] , FAX: [phone]) for follow up appt. Informed that wants to be present and to please not see him if the is not there.
[2017-02-18] MEDS: PRUNE JUICE GT SCH (11:59)
[2017-02-18] MEDS: HYDROCODONE/APAP 7.5/325MG 1 EACH TABLET GT PRN (13:11)
[2017-02-18 19:50] VITALS: BP 124/82
[2017-02-18] MEDS: METHYLNALTREXONE BROMIDE 12 MG/0.6 ML VIAL SQ SCH (20:59)
[2017-02-18] MEDS: MAGNESIUM HYDROXIDE 30 ML UDC GT PRN (21:00)
[2017-02-18] MEDS: LATANOPROST EYE DROP 0.005% 2.5 ML BOTTLE EACHEYE SCH (21:00)
[2017-02-18] MEDS: PRAVASTATIN SODIUM 20 MG TABLET GT SCH (21:00)
[2017-02-19] MEDS: ALBUTEROL HALF STRENGTH 1.25 MG/3 ML VIAL.NEB NEB SCH ×4 (02:03→20:07)
[2017-02-19] MEDS: FIBERSOURCE HN 1,000 ML BOTTLE GT PRN ×2 (05:25→11:26)
[2017-02-19] MEDS: [UNRECOGNIZED DRUG - OTHER] GT PRN (05:25)
[2017-02-19] MEDS: SIMETHICONE SUSP 40 MG/0.6 ML BOTTLE GT PRN (05:25)
[2017-02-19] MEDS: CHLORHEXIDINE GLUCONATE 15 ML UDC MM SCH ×2 (05:25→18:17)
[2017-02-19 07:53] VITALS: BP 111/70
[2017-02-19] MEDS: PROSOURCE / PROSTAT (PYXIS) 30 ML UDC GT SCH (08:19)
[2017-02-19] MEDS: [UNRECOGNIZED DRUG - OTHER] GT SCH (08:19)
[2017-02-19] MEDS: POTASSIUM CHLORIDE 10 MEQ GT SCH (08:19)
[2017-02-19] MEDS: ASPIRIN 81 MG TAB.CHEW GT SCH (08:19)
[2017-02-19] MEDS: DOXAZOSIN MESYLATE 8 MG GT SCH (08:19)
[2017-02-19] MEDS: FINASTERIDE (5 MG) 5 MG TABLET GT SCH (08:19)
[2017-02-19] MEDS: RIFAXIMIN 550 MG TABLET PO SCH ×2 (08:19→17:00)
[2017-02-19] MEDS: CHOLECALCIFEROL (VITAMIN D 3) 400 UNIT TABLET GT SCH ×2 (08:19→20:17)
[2017-02-19] MEDS: Z GUARD REMEDY 4 OZ OINT TP SCH ×2 (09:00→20:18)
[2017-02-19] MEDS: HYDROGEN PEROXIDE 480 ML BOTTLE TP SCH ×2 (09:00→20:18)
[2017-02-19] MEDS: HYDROCORTISONE 1% CREAM 30 GM TUBE TP SCH ×2 (09:00→20:17)
[2017-02-19] MEDS: VITAMINS A AND D 56.7 GM TUBE TP SCH ×4 (09:00→20:18)
[2017-02-19] MEDS: PRUNE JUICE GT SCH (12:49)
--- NOTE | 2017-02-19 14:30 | NUR ---
Dr Edwards came and saw resident with new order for bladder scan PRN whenever has concern about abdominal pain or voiding, noted and carried out. at bedside and made aware of new order.
--- NOTE | 2017-02-19 15:05 | NUR ---
INTERDISCIPLINARY PLAN OF CARE CONFERENCE was held today. Resident's family invited but did not attend. Dr. Mejia and the Interdisciplinary Team reviewed the current plan of care in detail. Resident will now have a bladder scan PRN whenever the has a concern about abdominal pain or voiding. Resident is no longer taking any antibiotics. No issues per pharmacy or dietary. No new orders were given.
[2017-02-19] MEDS: METHYLNALTREXONE BROMIDE 12 MG/0.6 ML VIAL SQ SCH (20:17)
[2017-02-19] MEDS: LATANOPROST EYE DROP 0.005% 2.5 ML BOTTLE EACHEYE SCH (21:13)
[2017-02-19] MEDS: PRAVASTATIN SODIUM 20 MG TABLET GT SCH (21:13)
[2017-02-20] MEDS: ALBUTEROL HALF STRENGTH 1.25 MG/3 ML VIAL.NEB NEB SCH ×4 (01:50→20:01)
[2017-02-20] MEDS: CHLORHEXIDINE GLUCONATE 15 ML UDC MM SCH ×2 (05:44→18:57)
[2017-02-20] MEDS: FIBERSOURCE HN 1,000 ML BOTTLE GT PRN (05:44)
[2017-02-20] MEDS: MAGNESIUM HYDROXIDE 30 ML UDC GT PRN (05:44)
[2017-02-20 07:45] VITALS: BP 116/67
[2017-02-20] MEDS: CHOLECALCIFEROL (VITAMIN D 3) 400 UNIT TABLET GT SCH ×2 (08:53→20:29)
[2017-02-20] MEDS: ACETAMINOPHEN 650 MG/20 ML UDC- FOR SA PATIENTS ONLY PO PRN (08:53)
[2017-02-20] MEDS: HYDROCORTISONE 1% CREAM 30 GM TUBE TP SCH ×2 (08:53→20:29)
[2017-02-20] MEDS: POTASSIUM CHLORIDE 10 MEQ GT SCH (08:53)
[2017-02-20] MEDS: ASPIRIN 81 MG TAB.CHEW GT SCH (08:53)
[2017-02-20] MEDS: FINASTERIDE (5 MG) 5 MG TABLET GT SCH (08:53)
[2017-02-20] MEDS: RIFAXIMIN 550 MG TABLET PO SCH ×2 (08:53→16:38)
[2017-02-20] MEDS: PROSOURCE / PROSTAT (PYXIS) 30 ML UDC GT SCH (08:53)
[2017-02-20] MEDS: [UNRECOGNIZED DRUG - OTHER] GT SCH (08:53)
[2017-02-20] MEDS: DOXAZOSIN MESYLATE 8 MG GT SCH (08:53)
[2017-02-20] MEDS: HYDROGEN PEROXIDE 480 ML BOTTLE TP SCH ×2 (09:00→20:29)
[2017-02-20] MEDS: Z GUARD REMEDY 4 OZ OINT TP SCH ×2 (09:00→20:29)
[2017-02-20] MEDS: VITAMINS A AND D 56.7 GM TUBE TP SCH ×4 (09:00→20:29)
--- NOTE | 2017-02-20 09:15 | NUR ---
Called workers' compensation magistrate for Dr. Edwards ([facility]), notified him regarding patients' temp of 100.6, increase secretions, has foamy, whitish to pale yellow secretions. Patients' worried about it. He ordered sputum c and s, portable chest x ray now and CBC, BMP stat. Noted and carried out. Patients' at bedside right now. made her aware of new orders.
[2017-02-20 10:29] LABS: BASOPHILS % (AUTO) 0.2 % (0.0-2.0); EOSINOPHILS # (AUTO) 0.1 /CMM (0.0-0.7); EOSINOPHILS % (AUTO) 2.5 % (0.0-6.0); HEMATOCRIT 42 % (39-51); HEMOGLOBIN 14.3 g/dL (13.5-17.5); LYMPHOCYTES # (AUTO) 0.6 /CMM (0.8-4.8); LYMPHOCYTES % (AUTO) 20.6 % (20.0-44.0); MEAN CORPUSCULAR HEMOGLOBIN 33 PG (26.0-33.0); MEAN CORPUSCULAR HGB CONC 34 g/dl (31.0-36.0); MEAN CORPUSCULAR VOLUME 98 fL (80-96); MONOCYTES # (AUTO) 0.4 /CMM (0.1-1.30); MONOCYTES % (AUTO) 12.8 % (2.0-12.0); NEUTROPHILS # (AUTO) 1.9 /CMM (1.8-8.9); NEUTROPHILS % (AUTO) 63.9 % (43.0-81.0); PLATELET COUNT (AUTO) 75 /CMM (150-450); RDW COEFFICIENT OF VARIATION 12.9 (11.5-15.0); RED BLOOD CELL COUNT(AUTO) 4.29 MIL/uL (4.5-6.0)
[2017-02-20 10:40] LABS: CALCIUM, SERUM 7.8 mg/dL (8.5-10.1); CREATININE 0.8 mg/dL (0.6-1.3); POTASSIUM 4.1 mmol/L (3.5-5.1)
--- NOTE | 2017-02-20 11:45 | NUR ---
Called inserter promotional item for Dr. Edwards ([facility]) relayed all lab results and chest x ray, he ordered Sodium Chloride 1 gm via GT bid for low sodium, repeat BMP on Wednesday02/22/2017. Patients' at bedside made aware. Noted and carried out.
[2017-02-20 11:55] LABS: LYMPHOCYTES % (MANUAL) 15 % (16-48); MONOCYTES % (MANUAL) 10 % (0-11.0); NEUTROPHILS % (MANUAL) 75 (42-76)
[2017-02-20] MEDS: PRUNE JUICE GT SCH (12:19)
[2017-02-20] MEDS: SODIUM CHLORIDE 1000 MG TABLET.SOL GT SCH (16:38)
[2017-02-20] MEDS: HYDROCODONE/APAP 7.5/325MG 1 EACH TABLET GT PRN (16:39)
[2017-02-20 19:52] VITALS: BP 106/63
[2017-02-20] MEDS: METHYLNALTREXONE BROMIDE 12 MG/0.6 ML VIAL SQ SCH (20:29)
[2017-02-20] MEDS: LATANOPROST EYE DROP 0.005% 2.5 ML BOTTLE EACHEYE SCH (21:30)
[2017-02-20] MEDS: PRAVASTATIN SODIUM 20 MG TABLET GT SCH (21:30)
[2017-02-21] MEDS: ALBUTEROL HALF STRENGTH 1.25 MG/3 ML VIAL.NEB NEB SCH ×4 (02:02→20:01)
[2017-02-21] MEDS: CHLORHEXIDINE GLUCONATE 15 ML UDC MM SCH ×2 (05:25→17:37)
[2017-02-21] MEDS: SIMETHICONE SUSP 40 MG/0.6 ML BOTTLE GT PRN (05:25)
[2017-02-21] MEDS: FIBERSOURCE HN 1,000 ML BOTTLE GT PRN (05:25)
[2017-02-21 07:43] VITALS: BP 101/60
[2017-02-21] MEDS: SODIUM CHLORIDE 1000 MG TABLET.SOL GT SCH ×2 (08:29→17:00)
[2017-02-21] MEDS: VITAMINS A AND D 56.7 GM TUBE TP SCH ×4 (08:29→20:36)
[2017-02-21] MEDS: [UNRECOGNIZED DRUG - OTHER] GT SCH (08:29)
[2017-02-21] MEDS: POTASSIUM CHLORIDE 10 MEQ GT SCH (08:29)
[2017-02-21] MEDS: Z GUARD REMEDY 4 OZ OINT TP SCH ×2 (08:29→20:36)
[2017-02-21] MEDS: HYDROGEN PEROXIDE 480 ML BOTTLE TP SCH ×2 (08:29→20:36)
[2017-02-21] MEDS: DOXAZOSIN MESYLATE 8 MG GT SCH (08:29)
[2017-02-21] MEDS: ASPIRIN 81 MG TAB.CHEW GT SCH (08:29)
[2017-02-21] MEDS: PROSOURCE / PROSTAT (PYXIS) 30 ML UDC GT SCH (08:29)
[2017-02-21] MEDS: RIFAXIMIN 550 MG TABLET PO SCH ×2 (08:29→17:36)
[2017-02-21] MEDS: HYDROCORTISONE 1% CREAM 30 GM TUBE TP SCH (08:29)
[2017-02-21] MEDS: FINASTERIDE (5 MG) 5 MG TABLET GT SCH (08:29)
[2017-02-21] MEDS: CHOLECALCIFEROL (VITAMIN D 3) 400 UNIT TABLET GT SCH ×2 (09:00→20:36)
--- NOTE | 2017-02-21 12:30 | NUR ---
Seen and examined by Dr. Edwards and showed respiratory culture preliminary result with no new order.
[2017-02-21] MEDS: PRUNE JUICE GT SCH (12:39)
--- NOTE | 2017-02-21 18:20 | NUR ---
Patient's daughter at bedside reported to primary nurse that she noticed patient is holding/touching his private part. Further assessment made, no open skin noted. Pt able to void freely without any difficulty. No abdominal distention noted. Afebrile. No pain when asked. No facial grimacing noted. Good perineal care provided. Kept clean dry and comfortable. Dr. Edwards made aware with no new order at this time.
[2017-02-21] MEDS: HYDROCODONE/APAP 7.5/325MG 1 EACH TABLET GT PRN (18:35)
[2017-02-21 19:51] VITALS: BP 125/82
[2017-02-21] MEDS: METHYLNALTREXONE BROMIDE 12 MG/0.6 ML VIAL SQ SCH (20:36)
[2017-02-21] MEDS: PRAVASTATIN SODIUM 20 MG TABLET GT SCH (22:00)
[2017-02-21] MEDS: LATANOPROST EYE DROP 0.005% 2.5 ML BOTTLE EACHEYE SCH (22:00)
[2017-02-22] MEDS: HYDROCODONE/APAP 7.5/325MG 1 EACH TABLET GT PRN ×2 (01:01→10:18)
[2017-02-22] MEDS: ALBUTEROL HALF STRENGTH 1.25 MG/3 ML VIAL.NEB NEB SCH ×4 (02:23→19:29)
[2017-02-22] MEDS: CHLORHEXIDINE GLUCONATE 15 ML UDC MM SCH ×2 (05:47→18:04)
[2017-02-22] MEDS: FIBERSOURCE HN 1,000 ML BOTTLE GT PRN (05:47)
[2017-02-22 07:01] LABS: CALCIUM, SERUM 7.9 mg/dL (8.5-10.1); CREATININE 0.7 mg/dL (0.6-1.3); POTASSIUM 4.2 mmol/L (3.5-5.1)
[2017-02-22 08:00] VITALS: BP 135/68
[2017-02-22] MEDS: [UNRECOGNIZED DRUG - OTHER] GT SCH (08:35)
[2017-02-22] MEDS: ASPIRIN 81 MG TAB.CHEW GT SCH (08:35)
[2017-02-22] MEDS: DOXAZOSIN MESYLATE 8 MG GT SCH (08:35)
[2017-02-22] MEDS: PROSOURCE / PROSTAT (PYXIS) 30 ML UDC GT SCH (08:36)
[2017-02-22] MEDS: CHOLECALCIFEROL (VITAMIN D 3) 400 UNIT TABLET GT SCH ×2 (08:36→21:06)
[2017-02-22] MEDS: POTASSIUM CHLORIDE 10 MEQ GT SCH (08:36)
[2017-02-22] MEDS: FINASTERIDE (5 MG) 5 MG TABLET GT SCH (08:36)
[2017-02-22] MEDS: RIFAXIMIN 550 MG TABLET PO SCH (08:36)
[2017-02-22] MEDS ORDERED: SODIUM CHLORIDE 1000 MG TABLET.SOL GT SCH (09:00)
[2017-02-22] MEDS: PRUNE JUICE GT SCH (12:00)
[2017-02-22] MEDS: VITAMINS A AND D 56.7 GM TUBE TP SCH ×4 (12:45→21:06)
[2017-02-22] MEDS: HYDROGEN PEROXIDE 480 ML BOTTLE TP SCH ×2 (12:45→21:06)
[2017-02-22] MEDS: Z GUARD REMEDY 4 OZ OINT TP SCH ×2 (12:45→21:06)
--- NOTE | 2017-02-22 14:13 | NUR ---
Relayed sputum C/S and CXR results to Dr. Edwards. Sputum C/S result shows slight growth of normal eula, slight growth Klebsiella pneumoniae ESBL, slight growth gram negative rods. No new order and no isolation per Dr. Edwards.
[2017-02-22] MEDS ORDERED: NITROGLYCERIN 0.4 MG/TAB BOTTLE SL PRN (18:00)
[2017-02-22] MEDS ORDERED: Z GUARD REMEDY 4 OZ OINT TP PRN (18:00)
[2017-02-22] MEDS ORDERED: ALBUTEROL HALF STRENGTH 1.25 MG/3 ML VIAL.NEB NEB PRN (18:00)
[2017-02-22] MEDS ORDERED: HYDROGEN PEROXIDE 480 ML BOTTLE TP PRN (18:00)
[2017-02-22] MEDS ORDERED: IPRATROPIUM NEB FS 0.5 MG/2.5 ML AMPUL.NEB NEB PRN (18:00)
[2017-02-22] MEDS: METHYLNALTREXONE BROMIDE 12 MG/0.6 ML VIAL SQ SCH (21:06)
[2017-02-22] MEDS: LATANOPROST EYE DROP 0.005% 2.5 ML BOTTLE EACHEYE SCH (21:06)
[2017-02-22] MEDS: PRAVASTATIN SODIUM 20 MG TABLET GT SCH (21:07)
[2017-02-22 21:57] VITALS: BP 130/77
[2017-02-23] MEDS: ALBUTEROL HALF STRENGTH 1.25 MG/3 ML VIAL.NEB NEB SCH ×4 (01:03→19:21)
[2017-02-23] MEDS: CHLORHEXIDINE GLUCONATE 15 ML UDC MM SCH ×2 (05:50→18:12)
[2017-02-23 08:00] VITALS: BP 124/68
[2017-02-23] MEDS: RIFAXIMIN 550 MG TABLET PO SCH ×2 (08:26→17:00)
[2017-02-23] MEDS: CHOLECALCIFEROL (VITAMIN D 3) 400 UNIT TABLET GT SCH ×2 (08:26→21:03)
[2017-02-23] MEDS: PROSOURCE / PROSTAT (PYXIS) 30 ML UDC GT SCH (08:26)
[2017-02-23] MEDS: SODIUM CHLORIDE 1000 MG TABLET.SOL GT SCH ×2 (08:26→17:00)
[2017-02-23] MEDS: FINASTERIDE (5 MG) 5 MG TABLET GT SCH (08:26)
[2017-02-23] MEDS: [UNRECOGNIZED DRUG - OTHER] GT SCH (08:26)
[2017-02-23] MEDS: ASPIRIN 81 MG TAB.CHEW GT SCH (08:26)
[2017-02-23] MEDS: DOXAZOSIN MESYLATE 8 MG GT SCH (08:26)
[2017-02-23] MEDS: POTASSIUM CHLORIDE 10 MEQ GT SCH (08:26)
[2017-02-23] MEDS: VITAMINS A AND D 56.7 GM TUBE TP SCH ×4 (09:00→21:03)
--- NOTE | 2017-02-23 10:29 | NUR ---
Pt sounds congested, he was suctioned and a moderate amount of light yellowish secretions was obtained. concerned about the congestion. Notified Dr. Mejia and received order to do CXR. Notified .
[2017-02-23] MEDS: HYDROGEN PEROXIDE 480 ML BOTTLE TP SCH ×2 (12:30→21:03)
[2017-02-23] MEDS: Z GUARD REMEDY 4 OZ OINT TP SCH ×2 (12:30→21:03)
[2017-02-23] MEDS: PRUNE JUICE GT SCH (12:38)
--- NOTE | 2017-02-23 13:22 | NUR ---
Relayed CXR result to Dr. Mejia. No new order.
--- NOTE | 2017-02-23 16:22 | NUR ---
Late entry for 02/22/17 Seen by PROCESSING TECHNOLOGIST Denise Pichardo. Relayed BMP result to her. No new order.
[2017-02-23 20:03] VITALS: BP 125/73
[2017-02-23] MEDS: METHYLNALTREXONE BROMIDE 12 MG/0.6 ML VIAL SQ SCH (21:03)
[2017-02-23] MEDS: LATANOPROST EYE DROP 0.005% 2.5 ML BOTTLE EACHEYE SCH (21:04)
[2017-02-23] MEDS: PRAVASTATIN SODIUM 20 MG TABLET GT SCH (21:04)
[2017-02-24] MEDS: ALBUTEROL HALF STRENGTH 1.25 MG/3 ML VIAL.NEB NEB SCH ×4 (01:04→19:40)
[2017-02-24] MEDS: CHLORHEXIDINE GLUCONATE 15 ML UDC MM SCH ×2 (05:46→17:37)
[2017-02-24 08:12] VITALS: BP 124/77
[2017-02-24 08:20] VITALS: BP_SYST 128
[2017-02-24] MEDS: POTASSIUM CHLORIDE 10 MEQ GT SCH (08:21)
[2017-02-24] MEDS: SODIUM CHLORIDE 1000 MG TABLET.SOL GT SCH ×2 (08:21→17:37)
[2017-02-24] MEDS: PROSOURCE / PROSTAT (PYXIS) 30 ML UDC GT SCH (08:21)
[2017-02-24] MEDS: FINASTERIDE (5 MG) 5 MG TABLET GT SCH (08:21)
[2017-02-24] MEDS: ASPIRIN 81 MG TAB.CHEW GT SCH (08:21)
[2017-02-24] MEDS: [UNRECOGNIZED DRUG - OTHER] GT SCH (08:21)
[2017-02-24] MEDS: DOXAZOSIN MESYLATE 8 MG GT SCH (08:21)
[2017-02-24] MEDS: RIFAXIMIN 550 MG TABLET PO SCH ×2 (08:24→17:37)
[2017-02-24] MEDS: CHOLECALCIFEROL (VITAMIN D 3) 400 UNIT TABLET GT SCH ×2 (08:24→20:37)
[2017-02-24] MEDS: VITAMINS A AND D 56.7 GM TUBE TP SCH ×4 (08:25→20:37)
[2017-02-24] MEDS: Z GUARD REMEDY 4 OZ OINT TP SCH ×2 (08:25→20:37)
[2017-02-24] MEDS: HYDROGEN PEROXIDE 480 ML BOTTLE TP SCH ×2 (08:25→20:37)
[2017-02-24] MEDS: HYDROCODONE/APAP 7.5/325MG 1 EACH TABLET GT PRN (10:32)
[2017-02-24] MEDS: PRUNE JUICE GT SCH (12:00)
[2017-02-24 19:59] VITALS: BP 125/75
[2017-02-24] MEDS: METHYLNALTREXONE BROMIDE 12 MG/0.6 ML VIAL SQ SCH (20:37)
[2017-02-24] MEDS: PRAVASTATIN SODIUM 20 MG TABLET GT SCH (21:51)
[2017-02-24] MEDS: LATANOPROST EYE DROP 0.005% 2.5 ML BOTTLE EACHEYE SCH (21:51)
[2017-02-25] MEDS: ALBUTEROL HALF STRENGTH 1.25 MG/3 ML VIAL.NEB NEB SCH ×4 (02:06→20:03)
[2017-02-25] MEDS: CHLORHEXIDINE GLUCONATE 15 ML UDC MM SCH ×2 (05:38→18:35)
[2017-02-25 07:42] VITALS: BP 127/78
[2017-02-25] MEDS: ASPIRIN 81 MG TAB.CHEW GT SCH (09:41)
[2017-02-25] MEDS: DOXAZOSIN MESYLATE 8 MG GT SCH (09:41)
[2017-02-25] MEDS: HYDROGEN PEROXIDE 480 ML BOTTLE TP SCH ×2 (09:42→21:27)
[2017-02-25] MEDS: [UNRECOGNIZED DRUG - OTHER] GT SCH (09:42)
[2017-02-25] MEDS: POTASSIUM CHLORIDE 10 MEQ GT SCH (09:42)
[2017-02-25] MEDS: FINASTERIDE (5 MG) 5 MG TABLET GT SCH (09:42)
[2017-02-25] MEDS: CHOLECALCIFEROL (VITAMIN D 3) 400 UNIT TABLET GT SCH ×2 (09:42→21:27)
[2017-02-25] MEDS: PROSOURCE / PROSTAT (PYXIS) 30 ML UDC GT SCH (09:42)
[2017-02-25] MEDS: SODIUM CHLORIDE 1000 MG TABLET.SOL GT SCH ×2 (09:42→17:00)
[2017-02-25] MEDS: RIFAXIMIN 550 MG TABLET PO SCH ×2 (09:42→17:00)
[2017-02-25] MEDS: Z GUARD REMEDY 4 OZ OINT TP SCH ×2 (09:43→21:27)
[2017-02-25] MEDS: VITAMINS A AND D 56.7 GM TUBE TP SCH ×4 (09:43→21:27)
[2017-02-25] MEDS: PRUNE JUICE GT SCH (12:00)
--- NOTE | 2017-02-25 18:24 | NUR ---
Seen by Dr. Edwards. Notified him that pt uses [facility] often and asked him if the pt should be placed on routine pain medication. Dr. Edwards said no.
[2017-02-25 20:15] VITALS: BP 129/80
[2017-02-25] MEDS: METHYLNALTREXONE BROMIDE 12 MG/0.6 ML VIAL SQ SCH (21:27)
[2017-02-25] MEDS: LATANOPROST EYE DROP 0.005% 2.5 ML BOTTLE EACHEYE SCH (21:28)
[2017-02-25] MEDS: FIBERSOURCE HN 1,000 ML BOTTLE GT PRN (21:28)
[2017-02-25] MEDS: PRAVASTATIN SODIUM 20 MG TABLET GT SCH (21:28)
[2017-02-26] MEDS: ALBUTEROL HALF STRENGTH 1.25 MG/3 ML VIAL.NEB NEB SCH ×4 (01:52→19:47)
[2017-02-26] MEDS: FIBERSOURCE HN 1,000 ML BOTTLE GT PRN (05:30)
[2017-02-26] MEDS: CHLORHEXIDINE GLUCONATE 15 ML UDC MM SCH ×2 (05:30→18:13)
[2017-02-26 07:35] VITALS: BP 125/75
[2017-02-26] MEDS: PROSOURCE / PROSTAT (PYXIS) 30 ML UDC GT SCH (08:44)
[2017-02-26] MEDS: [UNRECOGNIZED DRUG - OTHER] GT SCH (08:44)
[2017-02-26] MEDS: POTASSIUM CHLORIDE 10 MEQ GT SCH (08:44)
[2017-02-26] MEDS: FINASTERIDE (5 MG) 5 MG TABLET GT SCH (08:44)
[2017-02-26] MEDS: ASPIRIN 81 MG TAB.CHEW GT SCH (08:44)
[2017-02-26] MEDS: DOXAZOSIN MESYLATE 8 MG GT SCH (08:44)
[2017-02-26] MEDS: SODIUM CHLORIDE 1000 MG TABLET.SOL GT SCH ×2 (08:45→17:00)
[2017-02-26] MEDS: CHOLECALCIFEROL (VITAMIN D 3) 400 UNIT TABLET GT SCH ×2 (08:45→21:06)
[2017-02-26] MEDS: RIFAXIMIN 550 MG TABLET PO SCH ×2 (08:45→17:00)
[2017-02-26] MEDS: HYDROCODONE/APAP 7.5/325MG 1 EACH TABLET GT PRN (08:45)
[2017-02-26] MEDS: Z GUARD REMEDY 4 OZ OINT TP SCH ×2 (09:00→21:06)
[2017-02-26] MEDS: HYDROGEN PEROXIDE 480 ML BOTTLE TP SCH ×2 (09:00→21:06)
[2017-02-26] MEDS: VITAMINS A AND D 56.7 GM TUBE TP SCH ×4 (09:00→21:06)
[2017-02-26] MEDS: PRUNE JUICE GT SCH (12:36)
[2017-02-26] MEDS: METHYLNALTREXONE BROMIDE 12 MG/0.6 ML VIAL SQ SCH (21:06)
[2017-02-26] MEDS: PRAVASTATIN SODIUM 20 MG TABLET GT SCH (21:07)
[2017-02-26] MEDS: LATANOPROST EYE DROP 0.005% 2.5 ML BOTTLE EACHEYE SCH (21:07)
[2017-02-26 22:41] VITALS: BP 113/75
[2017-02-27] MEDS: ALBUTEROL HALF STRENGTH 1.25 MG/3 ML VIAL.NEB NEB SCH ×4 (02:02→19:35)
[2017-02-27] MEDS: CHLORHEXIDINE GLUCONATE 15 ML UDC MM SCH ×2 (05:05→17:26)
[2017-02-27] MEDS: FIBERSOURCE HN 1,000 ML BOTTLE GT PRN (05:05)
[2017-02-27 07:29] VITALS: BP 121/71
[2017-02-27] MEDS: DOXAZOSIN MESYLATE 8 MG GT SCH (08:38)
[2017-02-27] MEDS: FINASTERIDE (5 MG) 5 MG TABLET GT SCH (08:38)
[2017-02-27] MEDS: POTASSIUM CHLORIDE 10 MEQ GT SCH (08:38)
[2017-02-27] MEDS: [UNRECOGNIZED DRUG - OTHER] GT SCH (08:38)
[2017-02-27] MEDS: ASPIRIN 81 MG TAB.CHEW GT SCH (08:38)
[2017-02-27] MEDS: CHOLECALCIFEROL (VITAMIN D 3) 400 UNIT TABLET GT SCH ×2 (08:39→20:48)
[2017-02-27] MEDS: RIFAXIMIN 550 MG TABLET PO SCH ×2 (08:39→17:26)
[2017-02-27] MEDS: SODIUM CHLORIDE 1000 MG TABLET.SOL GT SCH ×2 (08:39→17:26)
[2017-02-27] MEDS: PROSOURCE / PROSTAT (PYXIS) 30 ML UDC GT SCH (08:39)
[2017-02-27] MEDS: VITAMINS A AND D 56.7 GM TUBE TP SCH ×4 (10:00→20:48)
[2017-02-27] MEDS: HYDROGEN PEROXIDE 480 ML BOTTLE TP SCH ×2 (10:00→20:48)
[2017-02-27] MEDS: Z GUARD REMEDY 4 OZ OINT TP SCH ×2 (10:00→20:48)
[2017-02-27] MEDS: ACETAMINOPHEN 650 MG/20 ML UDC- FOR SA PATIENTS ONLY PO PRN (11:50)
[2017-02-27] MEDS: PRUNE JUICE GT SCH (12:34)
[2017-02-27 19:29] VITALS: BP 130/79
[2017-02-27] MEDS: METHYLNALTREXONE BROMIDE 12 MG/0.6 ML VIAL SQ SCH (20:48)
[2017-02-27] MEDS: SIMETHICONE SUSP 40 MG/0.6 ML BOTTLE GT PRN (20:49)
[2017-02-27] MEDS: [UNRECOGNIZED DRUG - OTHER] GT PRN (20:49)
[2017-02-27] MEDS: MAGNESIUM HYDROXIDE 30 ML UDC GT PRN (20:49)
[2017-02-27] MEDS: LATANOPROST EYE DROP 0.005% 2.5 ML BOTTLE EACHEYE SCH (21:02)
[2017-02-27] MEDS: PRAVASTATIN SODIUM 20 MG TABLET GT SCH (21:02)
[2017-02-27] MEDS: HYDROCODONE/APAP 7.5/325MG 1 EACH TABLET GT PRN (22:49)
[2017-02-28] MEDS: FIBERSOURCE HN 1,000 ML BOTTLE GT PRN (00:07)
[2017-02-28] MEDS: ALBUTEROL HALF STRENGTH 1.25 MG/3 ML VIAL.NEB NEB SCH ×4 (00:55→20:10)
[2017-02-28] MEDS: CHLORHEXIDINE GLUCONATE 15 ML UDC MM SCH ×2 (05:23→17:37)
[2017-02-28 07:48] VITALS: BP 135/86
[2017-02-28] MEDS: HYDROGEN PEROXIDE 480 ML BOTTLE TP SCH ×2 (09:02→21:13)
[2017-02-28] MEDS: [UNRECOGNIZED DRUG - OTHER] GT SCH (09:02)
[2017-02-28] MEDS: SODIUM CHLORIDE 1000 MG TABLET.SOL GT SCH ×2 (09:02→17:36)
[2017-02-28] MEDS: PROSOURCE / PROSTAT (PYXIS) 30 ML UDC GT SCH (09:02)
[2017-02-28] MEDS: POTASSIUM CHLORIDE 10 MEQ GT SCH (09:02)
[2017-02-28] MEDS: Z GUARD REMEDY 4 OZ OINT TP SCH ×2 (09:02→21:13)
[2017-02-28] MEDS: CHOLECALCIFEROL (VITAMIN D 3) 400 UNIT TABLET GT SCH ×2 (09:02→21:13)
[2017-02-28] MEDS: ASPIRIN 81 MG TAB.CHEW GT SCH (09:02)
[2017-02-28] MEDS: FINASTERIDE (5 MG) 5 MG TABLET GT SCH (09:02)
[2017-02-28] MEDS: DOXAZOSIN MESYLATE 8 MG GT SCH (09:02)
[2017-02-28] MEDS: VITAMINS A AND D 56.7 GM TUBE TP SCH ×4 (09:02→21:13)
[2017-02-28] MEDS: RIFAXIMIN 550 MG TABLET PO SCH ×2 (09:02→17:36)
[2017-02-28] MEDS: PRUNE JUICE GT SCH (12:00)
[2017-02-28] MEDS: METHYLNALTREXONE BROMIDE 12 MG/0.6 ML VIAL SQ SCH (21:13)
[2017-02-28] MEDS: PRAVASTATIN SODIUM 20 MG TABLET GT SCH (21:13)
[2017-02-28] MEDS: LATANOPROST EYE DROP 0.005% 2.5 ML BOTTLE EACHEYE SCH (21:13)
[2017-02-28] MEDS: BISACODYL SUPP (10 MG) 10 MG/SUPP.RECT SUPP.RECT RC PRN (21:19)
[2017-02-28 22:05] VITALS: BP 139/83
[2017-03-01] MEDS: ALBUTEROL HALF STRENGTH 1.25 MG/3 ML VIAL.NEB NEB SCH ×4 (00:50→20:14)
[2017-03-01] MEDS: CHLORHEXIDINE GLUCONATE 15 ML UDC MM SCH ×2 (05:20→17:39)
[2017-03-01] MEDS: FIBERSOURCE HN 1,000 ML BOTTLE GT PRN (05:20)
[2017-03-01 07:52] VITALS: BP 135/82
[2017-03-01] MEDS: POTASSIUM CHLORIDE 10 MEQ GT SCH (08:05)
[2017-03-01] MEDS: SODIUM CHLORIDE 1000 MG TABLET.SOL GT SCH ×2 (08:05→17:39)
[2017-03-01] MEDS: [UNRECOGNIZED DRUG - OTHER] GT SCH (08:05)
[2017-03-01] MEDS: RIFAXIMIN 550 MG TABLET PO SCH ×2 (08:05→17:39)
[2017-03-01] MEDS: FINASTERIDE (5 MG) 5 MG TABLET GT SCH (08:05)
[2017-03-01] MEDS: CHOLECALCIFEROL (VITAMIN D 3) 400 UNIT TABLET GT SCH ×2 (08:05→21:03)
[2017-03-01] MEDS: ASPIRIN 81 MG TAB.CHEW GT SCH (08:05)
[2017-03-01] MEDS: PROSOURCE / PROSTAT (PYXIS) 30 ML UDC GT SCH (08:05)
[2017-03-01] MEDS: DOXAZOSIN MESYLATE 8 MG GT SCH (08:05)
[2017-03-01] MEDS: HYDROGEN PEROXIDE 480 ML BOTTLE TP SCH ×2 (10:00→21:03)
[2017-03-01] MEDS: Z GUARD REMEDY 4 OZ OINT TP SCH ×2 (10:00→21:03)
[2017-03-01] MEDS: VITAMINS A AND D 56.7 GM TUBE TP SCH ×4 (10:00→21:03)
[2017-03-01] MEDS: PRUNE JUICE GT SCH (12:00)
--- NOTE | 2017-03-01 15:41 | NUR ---
Resident's informed that cellophane casting machine repairer will be coming tomorrow after 2:30pm 03/02/2017. She stated that she will be here. White Lead Grinder not to see resident if is not present and his office was informed of this.
[2017-03-01 20:09] VITALS: BP 129/74
[2017-03-01] MEDS: METHYLNALTREXONE BROMIDE 12 MG/0.6 ML VIAL SQ SCH (21:03)
[2017-03-01] MEDS: PRAVASTATIN SODIUM 20 MG TABLET GT SCH (21:04)
[2017-03-01] MEDS: LATANOPROST EYE DROP 0.005% 2.5 ML BOTTLE EACHEYE SCH (21:04)
[2017-03-02] MEDS: FIBERSOURCE HN 1,000 ML BOTTLE GT PRN (01:15)
[2017-03-02] MEDS: ALBUTEROL HALF STRENGTH 1.25 MG/3 ML VIAL.NEB NEB SCH ×4 (02:03→20:24)
[2017-03-02] MEDS: CHLORHEXIDINE GLUCONATE 15 ML UDC MM SCH ×2 (05:56→17:53)
[2017-03-02 07:37] VITALS: BP 131/75
[2017-03-02] MEDS: DOXAZOSIN MESYLATE 8 MG GT SCH (08:34)
[2017-03-02] MEDS: POTASSIUM CHLORIDE 10 MEQ GT SCH (08:34)
[2017-03-02] MEDS: [UNRECOGNIZED DRUG - OTHER] GT SCH (08:34)
[2017-03-02] MEDS: FINASTERIDE (5 MG) 5 MG TABLET GT SCH (08:34)
[2017-03-02] MEDS: SODIUM CHLORIDE 1000 MG TABLET.SOL GT SCH ×2 (08:34→17:53)
[2017-03-02] MEDS: RIFAXIMIN 550 MG TABLET PO SCH ×2 (08:34→17:53)
[2017-03-02] MEDS: PROSOURCE / PROSTAT (PYXIS) 30 ML UDC GT SCH (08:34)
[2017-03-02] MEDS: CHOLECALCIFEROL (VITAMIN D 3) 400 UNIT TABLET GT SCH ×2 (08:34→21:04)
[2017-03-02] MEDS: ASPIRIN 81 MG TAB.CHEW GT SCH (08:34)
[2017-03-02] MEDS: VITAMINS A AND D 56.7 GM TUBE TP SCH ×4 (09:00→21:04)
--- NOTE | 2017-03-02 09:31 | NUR ---
Received a call from Jossy from the office of Dr. Silverio ([phone]) who stated that Dr. Silverio informed her that he was not going to be able to come and see our hospital patient's anymore. She stated he is getting ready to retire and thinks that its best to find another communications manager for the patient's. SKIP faxed referral to [facility] (tel: [phone] fax: [phone]) for communications manager to be assigned to them. Naeem to follow up with SKIP about which communications manager will be assigned to the patient. Addendum: 03/02/17 at 0935 by JERRY VALDIVIA is informed.
[2017-03-02] MEDS: HYDROGEN PEROXIDE 480 ML BOTTLE TP SCH ×2 (10:30→21:04)
[2017-03-02] MEDS: Z GUARD REMEDY 4 OZ OINT TP SCH ×2 (10:30→21:04)
[2017-03-02] MEDS: HYDROCODONE/APAP 7.5/325MG 1 EACH TABLET GT PRN (10:40)
[2017-03-02] MEDS: PRUNE JUICE GT SCH (12:00)
--- NOTE | 2017-03-02 12:33 | NUR ---
Seen by Dr. Forman. He trimmed pt's toenails. Pt tolerated procedure well. at bedside.
[2017-03-02] MEDS: CLOTRIMAZOLE 1% 15 GM TUBE TP SCH (17:53)
[2017-03-02 20:09] VITALS: BP 116/73
[2017-03-02] MEDS: LATANOPROST EYE DROP 0.005% 2.5 ML BOTTLE EACHEYE SCH (21:04)
[2017-03-02] MEDS: METHYLNALTREXONE BROMIDE 12 MG/0.6 ML VIAL SQ SCH (21:04)
[2017-03-02] MEDS: PRAVASTATIN SODIUM 20 MG TABLET GT SCH (21:04)
[2017-03-03] MEDS: FIBERSOURCE HN 1,000 ML BOTTLE GT PRN ×2 (01:43→23:24)
[2017-03-03] MEDS: ALBUTEROL HALF STRENGTH 1.25 MG/3 ML VIAL.NEB NEB SCH ×4 (02:12→19:52)
[2017-03-03] MEDS: [UNRECOGNIZED DRUG - OTHER] GT SCH (09:39)
[2017-03-03] MEDS: DOXAZOSIN MESYLATE 8 MG GT SCH (09:39)
[2017-03-03] MEDS: POTASSIUM CHLORIDE 10 MEQ GT SCH (09:39)
[2017-03-03] MEDS: FINASTERIDE (5 MG) 5 MG TABLET GT SCH (09:39)
[2017-03-03] MEDS: CHOLECALCIFEROL (VITAMIN D 3) 400 UNIT TABLET GT SCH ×2 (09:39→20:19)
[2017-03-03] MEDS: ASPIRIN 81 MG TAB.CHEW GT SCH (09:39)
[2017-03-03] MEDS: SODIUM CHLORIDE 1000 MG TABLET.SOL GT SCH ×2 (09:39→16:27)
[2017-03-03] MEDS: PROSOURCE / PROSTAT (PYXIS) 30 ML UDC GT SCH (09:39)
[2017-03-03] MEDS: RIFAXIMIN 550 MG TABLET PO SCH ×2 (09:39→17:54)
[2017-03-03] MEDS: CLOTRIMAZOLE 1% 15 GM TUBE TP SCH ×2 (09:40→16:27)
[2017-03-03] MEDS: Z GUARD REMEDY 4 OZ OINT TP SCH ×2 (09:40→20:19)
[2017-03-03] MEDS: VITAMINS A AND D 56.7 GM TUBE TP SCH ×4 (09:40→20:19)
[2017-03-03] MEDS: HYDROGEN PEROXIDE 480 ML BOTTLE TP SCH ×2 (09:40→20:19)
[2017-03-03] MEDS: HYDROCODONE/APAP 7.5/325MG 1 EACH TABLET GT PRN ×2 (09:42→17:56)
[2017-03-03 12:04] VITALS: BP 132/75
[2017-03-03] MEDS: PRUNE JUICE GT SCH (12:49)
--- NOTE | 2017-03-03 14:02 | NUR ---
Resident and his attended the family support group meeting. was able to further explore her feelings about resident being in the hospital and shared her concerns with the SW. SW to address concerns with subacute manager content Jovita.
[2017-03-03] MEDS: ACETAMINOPHEN 650 MG/20 ML UDC- FOR SA PATIENTS ONLY PO PRN (14:36)
[2017-03-03] MEDS: CHLORHEXIDINE GLUCONATE 15 ML UDC MM SCH (18:44)
[2017-03-03] MEDS: BISACODYL SUPP (10 MG) 10 MG/SUPP.RECT SUPP.RECT RC PRN (18:57)
[2017-03-03 20:08] VITALS: BP 128/74
[2017-03-03] MEDS: METHYLNALTREXONE BROMIDE 12 MG/0.6 ML VIAL SQ SCH (20:19)
[2017-03-03] MEDS: PRAVASTATIN SODIUM 20 MG TABLET GT SCH (21:24)
[2017-03-03] MEDS: LATANOPROST EYE DROP 0.005% 2.5 ML BOTTLE EACHEYE SCH (21:24)
[2017-03-04] MEDS: ALBUTEROL HALF STRENGTH 1.25 MG/3 ML VIAL.NEB NEB SCH ×4 (01:56→20:27)
[2017-03-04] MEDS: CHLORHEXIDINE GLUCONATE 15 ML UDC MM SCH ×2 (05:30→18:33)
[2017-03-04 07:49] VITALS: BP 109/74
[2017-03-04] MEDS: PROSOURCE / PROSTAT (PYXIS) 30 ML UDC GT SCH (08:28)
[2017-03-04] MEDS: [UNRECOGNIZED DRUG - OTHER] GT SCH (08:28)
[2017-03-04] MEDS: ASPIRIN 81 MG TAB.CHEW GT SCH (08:28)
[2017-03-04] MEDS: CLOTRIMAZOLE 1% 15 GM TUBE TP SCH (08:28)
[2017-03-04] MEDS: DOXAZOSIN MESYLATE 8 MG GT SCH (08:28)
[2017-03-04] MEDS: Z GUARD REMEDY 4 OZ OINT TP SCH ×2 (08:28→21:23)
[2017-03-04] MEDS: RIFAXIMIN 550 MG TABLET PO SCH ×2 (08:28→16:29)
[2017-03-04] MEDS: VITAMINS A AND D 56.7 GM TUBE TP SCH ×4 (08:28→21:24)
[2017-03-04] MEDS: FINASTERIDE (5 MG) 5 MG TABLET GT SCH (08:28)
[2017-03-04] MEDS: POTASSIUM CHLORIDE 10 MEQ GT SCH (08:28)
[2017-03-04] MEDS: HYDROGEN PEROXIDE 480 ML BOTTLE TP SCH ×2 (08:28→21:23)
[2017-03-04] MEDS: CHOLECALCIFEROL (VITAMIN D 3) 400 UNIT TABLET GT SCH ×2 (08:28→21:23)
[2017-03-04] MEDS: PRUNE JUICE GT SCH (12:00)
[2017-03-04] MEDS: METHYLNALTREXONE BROMIDE 12 MG/0.6 ML VIAL SQ SCH (21:23)
[2017-03-04] MEDS: LATANOPROST EYE DROP 0.005% 2.5 ML BOTTLE EACHEYE SCH (21:24)
[2017-03-04] MEDS: PRAVASTATIN SODIUM 20 MG TABLET GT SCH (21:24)
[2017-03-04 21:25] VITALS: BP 119/77
[2017-03-05] MEDS: FIBERSOURCE HN 1,000 ML BOTTLE GT PRN ×2 (01:44→22:22)
[2017-03-05] MEDS: ALBUTEROL HALF STRENGTH 1.25 MG/3 ML VIAL.NEB NEB SCH ×4 (01:45→18:58)
[2017-03-05] MEDS: CHLORHEXIDINE GLUCONATE 15 ML UDC MM SCH ×2 (05:48→17:59)
[2017-03-05 07:44] VITALS: BP 129/74
[2017-03-05] MEDS: CLOTRIMAZOLE 1% 15 GM TUBE TP SCH (08:35)
[2017-03-05] MEDS: RIFAXIMIN 550 MG TABLET PO SCH ×2 (08:35→16:50)
[2017-03-05] MEDS: POTASSIUM CHLORIDE 10 MEQ GT SCH (08:35)
[2017-03-05] MEDS: ASPIRIN 81 MG TAB.CHEW GT SCH (08:35)
[2017-03-05] MEDS: DOXAZOSIN MESYLATE 8 MG GT SCH (08:35)
[2017-03-05] MEDS: HYDROGEN PEROXIDE 480 ML BOTTLE TP SCH ×2 (08:35→21:19)
[2017-03-05] MEDS: PROSOURCE / PROSTAT (PYXIS) 30 ML UDC GT SCH (08:35)
[2017-03-05] MEDS: VITAMINS A AND D 56.7 GM TUBE TP SCH ×4 (08:35→21:19)
[2017-03-05] MEDS: CHOLECALCIFEROL (VITAMIN D 3) 400 UNIT TABLET GT SCH ×2 (08:35→21:18)
[2017-03-05] MEDS: FINASTERIDE (5 MG) 5 MG TABLET GT SCH (08:35)
[2017-03-05] MEDS: [UNRECOGNIZED DRUG - OTHER] GT SCH (08:35)
[2017-03-05] MEDS: Z GUARD REMEDY 4 OZ OINT TP SCH ×2 (08:35→21:19)
[2017-03-05] MEDS: PRUNE JUICE GT SCH (12:00)
[2017-03-05 20:23] VITALS: BP 130/75
[2017-03-05] MEDS: METHYLNALTREXONE BROMIDE 12 MG/0.6 ML VIAL SQ SCH (21:18)
[2017-03-05] MEDS: LATANOPROST EYE DROP 0.005% 2.5 ML BOTTLE EACHEYE SCH (21:20)
[2017-03-05] MEDS: PRAVASTATIN SODIUM 20 MG TABLET GT SCH (21:20)
[2017-03-06] MEDS: ALBUTEROL HALF STRENGTH 1.25 MG/3 ML VIAL.NEB NEB SCH ×4 (01:18→19:30)
[2017-03-06] MEDS: HYDROCODONE/APAP 7.5/325MG 1 EACH TABLET GT PRN (03:47)
[2017-03-06] MEDS: CHLORHEXIDINE GLUCONATE 15 ML UDC MM SCH ×2 (06:19→18:12)
[2017-03-06 07:51] VITALS: BP 138/81
[2017-03-06] MEDS: POTASSIUM CHLORIDE 10 MEQ GT SCH (08:41)
[2017-03-06] MEDS: RIFAXIMIN 550 MG TABLET PO SCH ×2 (08:41→17:00)
[2017-03-06] MEDS: CHOLECALCIFEROL (VITAMIN D 3) 400 UNIT TABLET GT SCH ×2 (08:41→21:00)
[2017-03-06] MEDS: FINASTERIDE (5 MG) 5 MG TABLET GT SCH (08:41)
[2017-03-06] MEDS: DOXAZOSIN MESYLATE 8 MG GT SCH (08:41)
[2017-03-06] MEDS: PROSOURCE / PROSTAT (PYXIS) 30 ML UDC GT SCH (08:41)
[2017-03-06] MEDS: ASPIRIN 81 MG TAB.CHEW GT SCH (08:41)
[2017-03-06] MEDS: [UNRECOGNIZED DRUG - OTHER] GT SCH (08:41)
[2017-03-06] MEDS: CLOTRIMAZOLE 1% 15 GM TUBE TP SCH (10:00)
[2017-03-06] MEDS: HYDROGEN PEROXIDE 480 ML BOTTLE TP SCH ×2 (10:00→21:00)
[2017-03-06] MEDS: Z GUARD REMEDY 4 OZ OINT TP SCH ×2 (10:00→21:00)
[2017-03-06] MEDS: VITAMINS A AND D 56.7 GM TUBE TP SCH ×4 (10:00→21:00)
[2017-03-06] MEDS: PRUNE JUICE GT SCH (12:00)
--- NOTE | 2017-03-06 13:36 | NUR ---
AMMONIA LEVEL 38 TODAY 03/06/[address] STOVER WITH NO NEW ORDERS AT THIS TIME.
[2017-03-06 20:00] VITALS: BP 134/78
[2017-03-06 20:01] VITALS: BP 134/78
[2017-03-06] MEDS: METHYLNALTREXONE BROMIDE 12 MG/0.6 ML VIAL SQ SCH (21:00)
[2017-03-06] MEDS: PRAVASTATIN SODIUM 20 MG TABLET GT SCH (22:56)
[2017-03-06] MEDS: LATANOPROST EYE DROP 0.005% 2.5 ML BOTTLE EACHEYE SCH (22:56)
[2017-03-06] MEDS: FIBERSOURCE HN 1,000 ML BOTTLE GT PRN (23:30)
[2017-03-07] MEDS: ALBUTEROL HALF STRENGTH 1.25 MG/3 ML VIAL.NEB NEB SCH ×4 (01:06→20:14)
[2017-03-07] MEDS: CHLORHEXIDINE GLUCONATE 15 ML UDC MM SCH ×2 (05:45→17:32)
[2017-03-07 08:10] VITALS: BP 117/70
[2017-03-07] MEDS: VITAMINS A AND D 56.7 GM TUBE TP SCH ×4 (09:00→21:36)
[2017-03-07] MEDS: POTASSIUM CHLORIDE 10 MEQ GT SCH (09:00)
[2017-03-07] MEDS: HYDROGEN PEROXIDE 480 ML BOTTLE TP SCH ×2 (09:00→21:36)
[2017-03-07] MEDS: Z GUARD REMEDY 4 OZ OINT TP SCH ×2 (09:00→21:36)
[2017-03-07] MEDS: [UNRECOGNIZED DRUG - OTHER] GT SCH (09:00)
[2017-03-07] MEDS: DOXAZOSIN MESYLATE 8 MG GT SCH (09:00)
[2017-03-07] MEDS: ASPIRIN 81 MG TAB.CHEW GT SCH (09:00)
[2017-03-07] MEDS: FINASTERIDE (5 MG) 5 MG TABLET GT SCH (09:00)
[2017-03-07] MEDS: CHOLECALCIFEROL (VITAMIN D 3) 400 UNIT TABLET GT SCH ×2 (09:00→21:36)
[2017-03-07] MEDS: CLOTRIMAZOLE 1% 15 GM TUBE TP SCH (09:00)
[2017-03-07] MEDS: PROSOURCE / PROSTAT (PYXIS) 30 ML UDC GT SCH (09:00)
[2017-03-07] MEDS: RIFAXIMIN 550 MG TABLET PO SCH ×2 (09:00→17:32)
[2017-03-07] MEDS: PRUNE JUICE GT SCH (12:04)
[2017-03-07 20:13] VITALS: BP 122/73
[2017-03-07] MEDS: LATANOPROST EYE DROP 0.005% 2.5 ML BOTTLE EACHEYE SCH (21:36)
[2017-03-07] MEDS: METHYLNALTREXONE BROMIDE 12 MG/0.6 ML VIAL SQ SCH (21:36)
[2017-03-07] MEDS: PRAVASTATIN SODIUM 20 MG TABLET GT SCH (21:36)
[2017-03-08] MEDS: ALBUTEROL HALF STRENGTH 1.25 MG/3 ML VIAL.NEB NEB SCH ×4 (01:39→20:16)
[2017-03-08] MEDS: CHLORHEXIDINE GLUCONATE 15 ML UDC MM SCH ×2 (05:50→17:23)
[2017-03-08 07:57] VITALS: BP 129/72
[2017-03-08] MEDS: VITAMINS A AND D 56.7 GM TUBE TP SCH ×4 (09:27→21:18)
[2017-03-08] MEDS: CLOTRIMAZOLE 1% 15 GM TUBE TP SCH (09:27)
[2017-03-08] MEDS: Z GUARD REMEDY 4 OZ OINT TP SCH ×2 (09:27→21:18)
[2017-03-08] MEDS: HYDROGEN PEROXIDE 480 ML BOTTLE TP SCH ×2 (09:28→21:18)
[2017-03-08] MEDS: FINASTERIDE (5 MG) 5 MG TABLET GT SCH (09:31)
[2017-03-08] MEDS: PROSOURCE / PROSTAT (PYXIS) 30 ML UDC GT SCH (09:31)
[2017-03-08] MEDS: CHOLECALCIFEROL (VITAMIN D 3) 400 UNIT TABLET GT SCH ×2 (09:31→21:18)
[2017-03-08] MEDS: POTASSIUM CHLORIDE 10 MEQ GT SCH (09:32)
[2017-03-08] MEDS: [UNRECOGNIZED DRUG - OTHER] GT SCH (09:32)
[2017-03-08] MEDS: ASPIRIN 81 MG TAB.CHEW GT SCH (09:32)
[2017-03-08] MEDS: DOXAZOSIN MESYLATE 8 MG GT SCH (09:32)
[2017-03-08] MEDS: RIFAXIMIN 550 MG TABLET PO SCH ×2 (09:35→17:23)
[2017-03-08] MEDS: PRUNE JUICE GT SCH (12:04)
--- NOTE | 2017-03-08 14:16 | NUR ---
Qing informed by resident's that his wheelchair needs to be adjusted, as it is very loose. QING was told by that she called Esau, the previous [employer] rep and he provided her with the company number but was told that money is still owed on the wheelchair. stated that she did not know what amount was due but she has not been required to make any payments as it was through medicare. QING called [employer] and spoke to [place] [phone]. He checked resident's file and it stated that when resident obtained his wheelchair in 2012, medicare only paid 6 out of the 13 months due to medicare denying the claim residential through. He stated that he will need to contact medicare and to give him a few days to see if the issue can be resolved. QING provided him with her direct telephone number and he stated he will call the 7th grade social studies teacher when he finds out what will happen. Informed him that resident uses his wheelchair on a daily basis, for sitting and also as a support when he walks. He stated that he will get on it and will call the when he has an update. QING will follow up. Resident's is informed as well as the charge nurse.
--- NOTE | 2017-03-08 14:59 | NUR ---
Resident's came back to the unit. Informed again of the wheelchair issue (medicare stopped paying) and [employer] Rep Smith was going to call to see what can be done. Informed that Smith requested a couple of days to get back to the . Informed that can call engineering to see if they can tighten the screws in the mean time. Resident's stated that it is not needed, as wheelchair needs maintenance for the entire thing (tightening bolts, fixing pieces, etc). She said she wanted to wait to see if medicare issue will be taken care of and to see if someone is able to come out to fix his wheelchair. Also informed that hairdrjesusleonard Johnson is coming March 17, 2017 to cut his hair. Appreciated the information.
[2017-03-08 20:11] VITALS: BP 138/94
[2017-03-08] MEDS: METHYLNALTREXONE BROMIDE 12 MG/0.6 ML VIAL SQ SCH (21:18)
[2017-03-08] MEDS: PRAVASTATIN SODIUM 20 MG TABLET GT SCH (21:18)
[2017-03-08] MEDS: LATANOPROST EYE DROP 0.005% 2.5 ML BOTTLE EACHEYE SCH (21:18)
[2017-03-09] MEDS: ALBUTEROL HALF STRENGTH 1.25 MG/3 ML VIAL.NEB NEB SCH ×4 (01:06→19:30)
[2017-03-09] MEDS: CHLORHEXIDINE GLUCONATE 15 ML UDC MM SCH ×2 (05:56→17:49)
[2017-03-09 07:35] VITALS: BP 125/70
[2017-03-09] MEDS: FINASTERIDE (5 MG) 5 MG TABLET GT SCH (09:14)
[2017-03-09] MEDS: RIFAXIMIN 550 MG TABLET PO SCH ×2 (09:14→17:49)
[2017-03-09] MEDS: ASPIRIN 81 MG TAB.CHEW GT SCH (09:14)
[2017-03-09] MEDS: PROSOURCE / PROSTAT (PYXIS) 30 ML UDC GT SCH (09:14)
[2017-03-09] MEDS: DOXAZOSIN MESYLATE 8 MG GT SCH (09:14)
[2017-03-09] MEDS: [UNRECOGNIZED DRUG - OTHER] GT SCH (09:14)
[2017-03-09] MEDS: POTASSIUM CHLORIDE 10 MEQ GT SCH (09:14)
[2017-03-09] MEDS: CHOLECALCIFEROL (VITAMIN D 3) 400 UNIT TABLET GT SCH ×2 (09:14→21:16)
[2017-03-09] MEDS: HYDROGEN PEROXIDE 480 ML BOTTLE TP SCH ×2 (09:20→21:16)
[2017-03-09] MEDS: CLOTRIMAZOLE 1% 15 GM TUBE TP SCH (09:20)
[2017-03-09] MEDS: VITAMINS A AND D 56.7 GM TUBE TP SCH ×4 (09:20→21:16)
[2017-03-09] MEDS: Z GUARD REMEDY 4 OZ OINT TP SCH ×2 (09:20→21:16)
[2017-03-09] MEDS: ACETAMINOPHEN 650 MG/20 ML UDC- FOR SA PATIENTS ONLY PO PRN (11:01)
[2017-03-09] MEDS: PRUNE JUICE GT SCH (12:17)
[2017-03-09 20:00] VITALS: BP 120/70
[2017-03-09] MEDS: PRAVASTATIN SODIUM 20 MG TABLET GT SCH (21:16)
[2017-03-09] MEDS: METHYLNALTREXONE BROMIDE 12 MG/0.6 ML VIAL SQ SCH (21:16)
[2017-03-09] MEDS: LATANOPROST EYE DROP 0.005% 2.5 ML BOTTLE EACHEYE SCH (21:16)
[2017-03-10] MEDS: ALBUTEROL HALF STRENGTH 1.25 MG/3 ML VIAL.NEB NEB SCH ×4 (01:30→19:45)
[2017-03-10] MEDS: CHLORHEXIDINE GLUCONATE 15 ML UDC MM SCH ×2 (05:27→17:19)
[2017-03-10 07:48] VITALS: BP 102/74
[2017-03-10] MEDS: ASPIRIN 81 MG TAB.CHEW GT SCH (08:46)
[2017-03-10] MEDS: DOXAZOSIN MESYLATE 8 MG GT SCH (08:47)
[2017-03-10] MEDS: POTASSIUM CHLORIDE 10 MEQ GT SCH (08:49)
[2017-03-10] MEDS: PROSOURCE / PROSTAT (PYXIS) 30 ML UDC GT SCH (08:50)
[2017-03-10] MEDS: HYDROGEN PEROXIDE 480 ML BOTTLE TP SCH ×2 (08:50→21:14)
[2017-03-10] MEDS: CLOTRIMAZOLE 1% 15 GM TUBE TP SCH (08:50)
[2017-03-10] MEDS: CHOLECALCIFEROL (VITAMIN D 3) 400 UNIT TABLET GT SCH ×2 (08:50→21:14)
[2017-03-10] MEDS: FINASTERIDE (5 MG) 5 MG TABLET GT SCH (08:50)
[2017-03-10] MEDS: Z GUARD REMEDY 4 OZ OINT TP SCH ×2 (08:50→21:15)
[2017-03-10] MEDS: VITAMINS A AND D 56.7 GM TUBE TP SCH ×4 (08:51→21:15)
[2017-03-10] MEDS: RIFAXIMIN 550 MG TABLET PO SCH ×2 (08:52→17:19)
[2017-03-10] MEDS: [UNRECOGNIZED DRUG - OTHER] GT SCH (09:00)
[2017-03-10] MEDS: PRUNE JUICE GT SCH (11:32)
[2017-03-10] MEDS: HYDROCODONE/APAP 7.5/325MG 1 EACH TABLET GT PRN (11:33)
[2017-03-10 20:12] VITALS: BP 123/59
[2017-03-10] MEDS: METHYLNALTREXONE BROMIDE 12 MG/0.6 ML VIAL SQ SCH (21:14)
[2017-03-10] MEDS: PRAVASTATIN SODIUM 20 MG TABLET GT SCH (21:15)
[2017-03-10] MEDS: LATANOPROST EYE DROP 0.005% 2.5 ML BOTTLE EACHEYE SCH (21:15)
[2017-03-11] MEDS: ALBUTEROL HALF STRENGTH 1.25 MG/3 ML VIAL.NEB NEB SCH ×4 (02:21→19:56)
[2017-03-11] MEDS: HYDROCODONE/APAP 7.5/325MG 1 EACH TABLET GT PRN ×2 (03:04→19:35)
[2017-03-11] MEDS: FIBERSOURCE HN 1,000 ML BOTTLE GT PRN (05:44)
[2017-03-11] MEDS: CHLORHEXIDINE GLUCONATE 15 ML UDC MM SCH ×2 (05:44→17:07)
[2017-03-11 08:22] VITALS: BP 130/77
--- NOTE | 2017-03-11 08:33 | NUR ---
Social Service Section of MDS assessment (3rd quarter) completed. Resident has a trach and g-tube for feeding. would like for resident to remain in the facility until stable for discharge and would eventually like to take him home. Resident's and his daughter's are his conservators. Resident was seen by the charge weigher on 09/01/2016, the foil operator on 03/02/2017, and the dentist on 08/24/2016.
[2017-03-11] MEDS: DOXAZOSIN MESYLATE 8 MG GT SCH (08:52)
[2017-03-11] MEDS: CLOTRIMAZOLE 1% 15 GM TUBE TP SCH (08:52)
[2017-03-11] MEDS: POTASSIUM CHLORIDE 10 MEQ GT SCH (08:52)
[2017-03-11] MEDS: CHOLECALCIFEROL (VITAMIN D 3) 400 UNIT TABLET GT SCH ×2 (08:52→21:34)
[2017-03-11] MEDS: ASPIRIN 81 MG TAB.CHEW GT SCH (08:52)
[2017-03-11] MEDS: [UNRECOGNIZED DRUG - OTHER] GT SCH (08:52)
[2017-03-11] MEDS: HYDROGEN PEROXIDE 480 ML BOTTLE TP SCH ×2 (08:52→21:35)
[2017-03-11] MEDS: PROSOURCE / PROSTAT (PYXIS) 30 ML UDC GT SCH (08:52)
[2017-03-11] MEDS: Z GUARD REMEDY 4 OZ OINT TP SCH ×2 (08:52→21:35)
[2017-03-11] MEDS: FINASTERIDE (5 MG) 5 MG TABLET GT SCH (08:52)
[2017-03-11] MEDS: RIFAXIMIN 550 MG TABLET PO SCH ×2 (08:52→17:07)
[2017-03-11] MEDS: VITAMINS A AND D 56.7 GM TUBE TP SCH ×4 (08:53→21:35)
[2017-03-11] MEDS: MAGNESIUM HYDROXIDE 30 ML UDC GT PRN (08:53)
[2017-03-11] MEDS ORDERED: LORATADINE 10 MG TABLET GT SCH (09:00)
--- NOTE | 2017-03-11 09:18 | NUR ---
Nina Munoz from the business office called the SW and stated that resident's medi-carrie needs to be re-instated. Informed her that Zeina Villafuerte is responsible for this and provided her with her email. Victoria informed.
--- NOTE | 2017-03-11 09:57 | NUR ---
Resident's has concern that staff are being rotated incorrectly and that other family member's requests are being honored while hers are not. She also states that her request of two people showering her is not being honored and SW has already discussed this with records analysis manager. She states her daughter will be writing a letter stating their concerns. SKIP stated she can relay the message to the subacute director and records analysis manager. She did make the comment that SW is there to advocate for the families however expects social services assistant to change policy. SKIP informed her that what she can do is arrange a meeting with the director and records analysis manager and Mrs. oLpez noted that she will speak to her daughter first about her availability and will let the social services assistant know.
[2017-03-11] MEDS: PRUNE JUICE GT SCH (12:50)
[2017-03-11] MEDS: BISACODYL SUPP (10 MG) 10 MG/SUPP.RECT SUPP.RECT RC PRN (17:07)
[2017-03-11 20:56] VITALS: BP 130/85
[2017-03-11] MEDS: LATANOPROST EYE DROP 0.005% 2.5 ML BOTTLE EACHEYE SCH (21:35)
[2017-03-11] MEDS: PRAVASTATIN SODIUM 20 MG TABLET GT SCH (21:35)
[2017-03-11] MEDS: METHYLNALTREXONE BROMIDE 12 MG/0.6 ML VIAL SQ SCH (21:35)
[2017-03-12] MEDS: ALBUTEROL HALF STRENGTH 1.25 MG/3 ML VIAL.NEB NEB SCH ×4 (01:19→19:51)
[2017-03-12] MEDS: CHLORHEXIDINE GLUCONATE 15 ML UDC MM SCH (05:54)
[2017-03-12 07:36] VITALS: BP 111/73
[2017-03-12] MEDS: PROSOURCE / PROSTAT (PYXIS) 30 ML UDC GT SCH (09:59)
[2017-03-12] MEDS: DOXAZOSIN MESYLATE 8 MG GT SCH (09:59)
[2017-03-12] MEDS: FINASTERIDE (5 MG) 5 MG TABLET GT SCH (09:59)
[2017-03-12] MEDS: RIFAXIMIN 550 MG TABLET PO SCH ×2 (09:59→17:00)
[2017-03-12] MEDS: [UNRECOGNIZED DRUG - OTHER] GT SCH (09:59)
[2017-03-12] MEDS: CHOLECALCIFEROL (VITAMIN D 3) 400 UNIT TABLET GT SCH ×2 (09:59→21:06)
[2017-03-12] MEDS: POTASSIUM CHLORIDE 10 MEQ GT SCH (09:59)
[2017-03-12] MEDS: ASPIRIN 81 MG TAB.CHEW GT SCH (09:59)
[2017-03-12] MEDS: HYDROGEN PEROXIDE 480 ML BOTTLE TP SCH ×2 (10:00→21:07)
[2017-03-12] MEDS: Z GUARD REMEDY 4 OZ OINT TP SCH ×2 (10:00→21:07)
[2017-03-12] MEDS: VITAMINS A AND D 56.7 GM TUBE TP SCH ×4 (10:00→21:07)
[2017-03-12] MEDS: CLOTRIMAZOLE 1% 15 GM TUBE TP SCH (10:00)
--- NOTE | 2017-03-12 10:03 | NUR ---
Resident's stated that the lotrimin cream is not working well for the resident's toe fungus. She stated she would like for the doctor to prescribe something stronger. Contacted Dr. Forman who stated that refused oral medications and will try ketoconazole 2% bid. Asked him to please call the unit and speak to the charge nurse. Charge nurse informed. Addendum: 03/12/17 at [address] Morales stated that he will put the order in Aunt Bertha.
[2017-03-12] MEDS: PRUNE JUICE GT SCH (12:00)
--- NOTE | 2017-03-12 13:00 | NUR ---
Seen and examined by Dr. Edwards, stated he wants to change the order to give Claritin at night instead of dayshift.
[2017-03-12 20:40] VITALS: BP 117/73
[2017-03-12] MEDS: METHYLNALTREXONE BROMIDE 12 MG/0.6 ML VIAL SQ SCH (21:07)
[2017-03-12] MEDS: LORATADINE 10 MG TABLET GT SCH (21:07)
[2017-03-12] MEDS: LATANOPROST EYE DROP 0.005% 2.5 ML BOTTLE EACHEYE SCH (21:07)
[2017-03-12] MEDS: PRAVASTATIN SODIUM 20 MG TABLET GT SCH (21:08)
[2017-03-13] MEDS: FIBERSOURCE HN 1,000 ML BOTTLE GT PRN (01:51)
[2017-03-13] MEDS: ALBUTEROL HALF STRENGTH 1.25 MG/3 ML VIAL.NEB NEB SCH ×4 (02:25→20:03)
[2017-03-13] MEDS: CHLORHEXIDINE GLUCONATE 15 ML UDC MM SCH ×2 (06:02→17:29)
[2017-03-13 07:41] VITALS: BP 121/71
[2017-03-13] MEDS: DOXAZOSIN MESYLATE 8 MG GT SCH (08:23)
[2017-03-13] MEDS: FINASTERIDE (5 MG) 5 MG TABLET GT SCH (08:23)
[2017-03-13] MEDS: PROSOURCE / PROSTAT (PYXIS) 30 ML UDC GT SCH (08:23)
[2017-03-13] MEDS: [UNRECOGNIZED DRUG - OTHER] GT SCH (08:23)
[2017-03-13] MEDS: POTASSIUM CHLORIDE 10 MEQ GT SCH (08:23)
[2017-03-13] MEDS: ASPIRIN 81 MG TAB.CHEW GT SCH (08:23)
[2017-03-13] MEDS: CHOLECALCIFEROL (VITAMIN D 3) 400 UNIT TABLET GT SCH ×2 (08:23→21:15)
[2017-03-13] MEDS: RIFAXIMIN 550 MG TABLET PO SCH ×2 (08:24→17:29)
[2017-03-13] MEDS: Z GUARD REMEDY 4 OZ OINT TP SCH ×2 (11:30→21:15)
[2017-03-13] MEDS: KETOCONAZOLE 2% CREAM 15 GM TUBE TP SCH (11:30)
[2017-03-13] MEDS: HYDROGEN PEROXIDE 480 ML BOTTLE TP SCH ×2 (11:30→21:15)
[2017-03-13] MEDS: VITAMINS A AND D 56.7 GM TUBE TP SCH ×4 (11:30→21:15)
[2017-03-13] MEDS: PRUNE JUICE GT SCH (12:11)
[2017-03-13] MEDS: HYDROCODONE/APAP 7.5/325MG 1 EACH TABLET GT PRN (12:11)
[2017-03-13 20:05] VITALS: BP 120/76
[2017-03-13] MEDS: METHYLNALTREXONE BROMIDE 12 MG/0.6 ML VIAL SQ SCH (21:15)
[2017-03-13] MEDS: PRAVASTATIN SODIUM 20 MG TABLET GT SCH (21:16)
[2017-03-13] MEDS: LATANOPROST EYE DROP 0.005% 2.5 ML BOTTLE EACHEYE SCH (21:16)
[2017-03-13] MEDS: LORATADINE 10 MG TABLET GT SCH (21:16)
[2017-03-13] MEDS: MAGNESIUM HYDROXIDE 30 ML UDC GT PRN (21:59)
[2017-03-14] MEDS: ALBUTEROL HALF STRENGTH 1.25 MG/3 ML VIAL.NEB NEB SCH ×4 (01:30→20:28)
[2017-03-14] MEDS: FIBERSOURCE HN 1,000 ML BOTTLE GT PRN (02:34)
[2017-03-14] MEDS: CHLORHEXIDINE GLUCONATE 15 ML UDC MM SCH ×2 (05:13→17:23)
[2017-03-14 07:53] VITALS: BP 108/58
[2017-03-14] MEDS: DOXAZOSIN MESYLATE 8 MG GT SCH (09:21)
[2017-03-14] MEDS: [UNRECOGNIZED DRUG - OTHER] GT SCH (09:21)
[2017-03-14] MEDS: ASPIRIN 81 MG TAB.CHEW GT SCH (09:21)
[2017-03-14] MEDS: POTASSIUM CHLORIDE 10 MEQ GT SCH (09:22)
[2017-03-14] MEDS: FINASTERIDE (5 MG) 5 MG TABLET GT SCH (09:22)
[2017-03-14] MEDS: PROSOURCE / PROSTAT (PYXIS) 30 ML UDC GT SCH (09:24)
[2017-03-14] MEDS: Z GUARD REMEDY 4 OZ OINT TP SCH ×2 (09:24→21:11)
[2017-03-14] MEDS: HYDROGEN PEROXIDE 480 ML BOTTLE TP SCH ×2 (09:24→21:11)
[2017-03-14] MEDS: RIFAXIMIN 550 MG TABLET PO SCH ×2 (09:27→17:24)
[2017-03-14] MEDS: CHOLECALCIFEROL (VITAMIN D 3) 400 UNIT TABLET GT SCH ×2 (09:27→21:10)
[2017-03-14] MEDS: KETOCONAZOLE 2% CREAM 15 GM TUBE TP SCH (09:28)
[2017-03-14] MEDS: VITAMINS A AND D 56.7 GM TUBE TP SCH ×4 (09:29→21:11)
[2017-03-14] MEDS: PRUNE JUICE GT SCH (12:00)
[2017-03-14] MEDS: ACETAMINOPHEN 650 MG/20 ML UDC- FOR SA PATIENTS ONLY PO PRN (12:25)
[2017-03-14 20:03] VITALS: BP 134/83
[2017-03-14] MEDS: METHYLNALTREXONE BROMIDE 12 MG/0.6 ML VIAL SQ SCH (21:10)
[2017-03-14] MEDS: LATANOPROST EYE DROP 0.005% 2.5 ML BOTTLE EACHEYE SCH (21:11)
[2017-03-14] MEDS: PRAVASTATIN SODIUM 20 MG TABLET GT SCH (21:12)
[2017-03-14] MEDS: LORATADINE 10 MG TABLET GT SCH (21:12)
[2017-03-15] MEDS: ALBUTEROL HALF STRENGTH 1.25 MG/3 ML VIAL.NEB NEB SCH ×4 (01:35→19:40)
[2017-03-15] MEDS: CHLORHEXIDINE GLUCONATE 15 ML UDC MM SCH ×2 (06:25→18:07)
[2017-03-15 08:03] VITALS: BP 130/77
[2017-03-15] MEDS: ASPIRIN 81 MG TAB.CHEW GT SCH (08:43)
[2017-03-15] MEDS: CHOLECALCIFEROL (VITAMIN D 3) 400 UNIT TABLET GT SCH ×2 (08:43→21:29)
[2017-03-15] MEDS: PROSOURCE / PROSTAT (PYXIS) 30 ML UDC GT SCH (08:43)
[2017-03-15] MEDS: POTASSIUM CHLORIDE 10 MEQ GT SCH (08:43)
[2017-03-15] MEDS: RIFAXIMIN 550 MG TABLET PO SCH ×2 (08:43→17:00)
[2017-03-15] MEDS: [UNRECOGNIZED DRUG - OTHER] GT SCH (08:43)
[2017-03-15] MEDS: FINASTERIDE (5 MG) 5 MG TABLET GT SCH (08:43)
[2017-03-15] MEDS: DOXAZOSIN MESYLATE 8 MG GT SCH (08:43)
[2017-03-15] MEDS: KETOCONAZOLE 2% CREAM 15 GM TUBE TP SCH (08:44)
[2017-03-15] MEDS: VITAMINS A AND D 56.7 GM TUBE TP SCH ×4 (08:44→21:30)
[2017-03-15] MEDS: Z GUARD REMEDY 4 OZ OINT TP SCH ×2 (08:44→21:30)
[2017-03-15] MEDS: HYDROGEN PEROXIDE 480 ML BOTTLE TP SCH ×2 (08:44→21:30)
--- NOTE | 2017-03-15 09:00 | NUR ---
Resident's came up to SKIP after looking at the staffing board. She stated that she is not happy as the staff are not following the rotations. She was under impression that she should be getting Gloria (which she believed was subacute staff and not a floater) and she noted that she was writing everything down. SKIP reminded her and asked her if she has spoken to her daughter so that SKIP can set a meeting with field service manager/director and she stated that her dtr does not have the time. Resident's was upset and walked away. Informed charge nurse that resident's is not happy with the INFORMATION RESOURCES MANAGER assignment.
[2017-03-15] MEDS: PRUNE JUICE GT SCH (12:18)
[2017-03-15] MEDS: HYDROCODONE/APAP 7.5/325MG 1 EACH TABLET GT PRN (12:21)
[2017-03-15 20:01] VITALS: BP 120/70
[2017-03-15] MEDS: METHYLNALTREXONE BROMIDE 12 MG/0.6 ML VIAL SQ SCH (21:29)
[2017-03-15] MEDS: PRAVASTATIN SODIUM 20 MG TABLET GT SCH (21:30)
[2017-03-15] MEDS: LORATADINE 10 MG TABLET GT SCH (21:30)
[2017-03-15] MEDS: LATANOPROST EYE DROP 0.005% 2.5 ML BOTTLE EACHEYE SCH (21:30)
[2017-03-16] MEDS: ALBUTEROL HALF STRENGTH 1.25 MG/3 ML VIAL.NEB NEB SCH ×4 (02:12→20:25)
[2017-03-16] MEDS: CHLORHEXIDINE GLUCONATE 15 ML UDC MM SCH ×2 (06:00→17:19)
[2017-03-16 07:49] VITALS: BP 110/68
[2017-03-16] MEDS: POTASSIUM CHLORIDE 10 MEQ GT SCH (08:17)
[2017-03-16] MEDS: [UNRECOGNIZED DRUG - OTHER] GT SCH (08:17)
[2017-03-16] MEDS: CHOLECALCIFEROL (VITAMIN D 3) 400 UNIT TABLET GT SCH ×2 (08:17→21:08)
[2017-03-16] MEDS: RIFAXIMIN 550 MG TABLET PO SCH ×2 (08:17→17:19)
[2017-03-16] MEDS: PROSOURCE / PROSTAT (PYXIS) 30 ML UDC GT SCH (08:17)
[2017-03-16] MEDS: Z GUARD REMEDY 4 OZ OINT TP SCH ×2 (08:17→21:08)
[2017-03-16] MEDS: FINASTERIDE (5 MG) 5 MG TABLET GT SCH (08:17)
[2017-03-16] MEDS: DOXAZOSIN MESYLATE 8 MG GT SCH (08:17)
[2017-03-16] MEDS: KETOCONAZOLE 2% CREAM 15 GM TUBE TP SCH (08:17)
[2017-03-16] MEDS: ASPIRIN 81 MG TAB.CHEW GT SCH (08:17)
[2017-03-16] MEDS: VITAMINS A AND D 56.7 GM TUBE TP SCH ×4 (08:17→21:08)
[2017-03-16] MEDS: HYDROGEN PEROXIDE 480 ML BOTTLE TP SCH ×2 (08:17→21:08)
--- NOTE | 2017-03-16 11:15 | NUR ---
Resident's reminded that hairdresser is coming tomorrow. Appreciated the information.
[2017-03-16] MEDS: PRUNE JUICE GT SCH (12:51)
[2017-03-16 20:05] VITALS: BP 128/59
[2017-03-16] MEDS: LATANOPROST EYE DROP 0.005% 2.5 ML BOTTLE EACHEYE SCH (21:08)
[2017-03-16] MEDS: METHYLNALTREXONE BROMIDE 12 MG/0.6 ML VIAL SQ SCH (21:08)
[2017-03-16] MEDS: PRAVASTATIN SODIUM 20 MG TABLET GT SCH (21:08)
[2017-03-16] MEDS: LORATADINE 10 MG TABLET GT SCH (21:08)
[2017-03-17] MEDS: ALBUTEROL HALF STRENGTH 1.25 MG/3 ML VIAL.NEB NEB SCH ×4 (01:30→19:58)
[2017-03-17] MEDS: CHLORHEXIDINE GLUCONATE 15 ML UDC MM SCH ×2 (05:25→17:20)
[2017-03-17 07:51] VITALS: BP 121/84
[2017-03-17] MEDS: [UNRECOGNIZED DRUG - OTHER] GT SCH (08:26)
[2017-03-17] MEDS: ASPIRIN 81 MG TAB.CHEW GT SCH (08:26)
[2017-03-17] MEDS: PROSOURCE / PROSTAT (PYXIS) 30 ML UDC GT SCH ×2 (08:26→20:46)
[2017-03-17] MEDS: POTASSIUM CHLORIDE 10 MEQ GT SCH (08:26)
[2017-03-17] MEDS: FINASTERIDE (5 MG) 5 MG TABLET GT SCH (08:26)
[2017-03-17] MEDS: DOXAZOSIN MESYLATE 8 MG GT SCH (08:26)
[2017-03-17] MEDS: CHOLECALCIFEROL (VITAMIN D 3) 400 UNIT TABLET GT SCH ×2 (08:27→20:46)
[2017-03-17] MEDS: RIFAXIMIN 550 MG TABLET PO SCH ×2 (08:27→16:27)
[2017-03-17] MEDS: VITAMINS A AND D 56.7 GM TUBE TP SCH ×4 (09:00→21:04)
[2017-03-17] MEDS: HYDROGEN PEROXIDE 480 ML BOTTLE TP SCH ×2 (09:00→21:03)
[2017-03-17] MEDS: Z GUARD REMEDY 4 OZ OINT TP SCH ×2 (09:00→21:03)
[2017-03-17] MEDS: KETOCONAZOLE 2% CREAM 15 GM TUBE TP SCH (09:00)
[2017-03-17] MEDS: HYDROCODONE/APAP 7.5/325MG 1 EACH TABLET GT PRN (09:23)
--- NOTE | 2017-03-17 10:45 | NUR ---
Resident received haircut by jayashree Johnson.
[2017-03-17] MEDS: PRUNE JUICE GT SCH (12:56)
[2017-03-17] MEDS: FIBERSOURCE HN 1,000 ML BOTTLE GT PRN (14:35)
[2017-03-17 20:08] VITALS: BP 116/71
[2017-03-17] MEDS: METHYLNALTREXONE BROMIDE 12 MG/0.6 ML VIAL SQ SCH (20:47)
[2017-03-17] MEDS: PRAVASTATIN SODIUM 20 MG TABLET GT SCH (21:04)
[2017-03-17] MEDS: LATANOPROST EYE DROP 0.005% 2.5 ML BOTTLE EACHEYE SCH (21:04)
[2017-03-17] MEDS: LORATADINE 10 MG TABLET GT SCH (22:48)
[2017-03-18] MEDS: ALBUTEROL HALF STRENGTH 1.25 MG/3 ML VIAL.NEB NEB SCH ×4 (01:57→20:15)
[2017-03-18] MEDS: CHLORHEXIDINE GLUCONATE 15 ML UDC MM SCH ×2 (06:37→18:50)
[2017-03-18 07:45] VITALS: BP 87/52
[2017-03-18] MEDS: VITAMINS A AND D 56.7 GM TUBE TP SCH ×4 (09:58→21:48)
[2017-03-18] MEDS: Z GUARD REMEDY 4 OZ OINT TP SCH ×2 (09:58→21:48)
[2017-03-18] MEDS: CHOLECALCIFEROL (VITAMIN D 3) 400 UNIT TABLET GT SCH ×2 (09:58→21:48)
[2017-03-18] MEDS: HYDROGEN PEROXIDE 480 ML BOTTLE TP SCH ×2 (09:58→21:48)
[2017-03-18] MEDS: ASPIRIN 81 MG TAB.CHEW GT SCH (09:58)
[2017-03-18] MEDS: RIFAXIMIN 550 MG TABLET PO SCH ×2 (09:58→17:00)
[2017-03-18] MEDS: KETOCONAZOLE 2% CREAM 15 GM TUBE TP SCH (09:58)
[2017-03-18] MEDS: POTASSIUM CHLORIDE 10 MEQ GT SCH (09:58)
[2017-03-18] MEDS: DOXAZOSIN MESYLATE 8 MG GT SCH (09:58)
[2017-03-18] MEDS: FINASTERIDE (5 MG) 5 MG TABLET GT SCH (09:58)
[2017-03-18] MEDS: [UNRECOGNIZED DRUG - OTHER] GT SCH (09:58)
[2017-03-18] MEDS: MAGNESIUM HYDROXIDE 30 ML UDC GT PRN (10:09)
--- NOTE | 2017-03-18 11:41 | NUR ---
Called [employer] and spoke with Ratna. She looked up the resident's account and she stated to me that medicare will not continue paying the resident's wheelchair and they cannot come out to do the repairs. She stated that a specific code for subacute is being used and that is the reason why medicare is not paying. This is not just the case for the resident but other resident's in the subacute unit as well and code cannot be changed per Luisel because resident IS living in a subacute terminal makeup operator care facility. Ratna did state that resident's did call before the social services manager made contact on 03/08/2017, was upset with the information, and before Ratna could explain the options to her, stated she will speak to the social services manager and she hung up. Informed that she will contact engineering to put in an order for the resident's wheelchair. stated she will go to medicare office to inquire about stopped payments and what options she has. SW placed a request for a work order for the resident's wheelchair with engineering. Subacute visual display manager informed.
[2017-03-18] MEDS: PRUNE JUICE GT SCH (12:00)
[2017-03-18 20:05] VITALS: BP 126/73
[2017-03-18] MEDS: METHYLNALTREXONE BROMIDE 12 MG/0.6 ML VIAL SQ SCH (21:48)
[2017-03-18] MEDS: LORATADINE 10 MG TABLET GT SCH (21:48)
[2017-03-18] MEDS: LATANOPROST EYE DROP 0.005% 2.5 ML BOTTLE EACHEYE SCH (21:48)
[2017-03-18] MEDS: PRAVASTATIN SODIUM 20 MG TABLET GT SCH (21:48)
[2017-03-18] MEDS: PROSOURCE / PROSTAT (PYXIS) 30 ML UDC GT SCH (21:48)
[2017-03-18] MEDS: BISACODYL SUPP (10 MG) 10 MG/SUPP.RECT SUPP.RECT RC PRN (22:24)
[2017-03-19] MEDS: ALBUTEROL HALF STRENGTH 1.25 MG/3 ML VIAL.NEB NEB SCH ×4 (02:11→19:23)
[2017-03-19] MEDS: CHLORHEXIDINE GLUCONATE 15 ML UDC MM SCH ×2 (05:28→17:35)
[2017-03-19] MEDS: FIBERSOURCE HN 1,000 ML BOTTLE GT PRN (05:29)
[2017-03-19 07:40] VITALS: BP 130/80
[2017-03-19] MEDS: DOXAZOSIN MESYLATE 8 MG GT SCH (08:04)
[2017-03-19] MEDS: POTASSIUM CHLORIDE 10 MEQ GT SCH (08:04)
[2017-03-19] MEDS: CHOLECALCIFEROL (VITAMIN D 3) 400 UNIT TABLET GT SCH ×2 (08:04→21:15)
[2017-03-19] MEDS: RIFAXIMIN 550 MG TABLET PO SCH ×2 (08:04→17:35)
[2017-03-19] MEDS: FINASTERIDE (5 MG) 5 MG TABLET GT SCH (08:04)
[2017-03-19] MEDS: [UNRECOGNIZED DRUG - OTHER] GT SCH (08:04)
[2017-03-19] MEDS: ASPIRIN 81 MG TAB.CHEW GT SCH (08:04)
[2017-03-19] MEDS: KETOCONAZOLE 2% CREAM 15 GM TUBE TP SCH (09:00)
[2017-03-19] MEDS: HYDROGEN PEROXIDE 480 ML BOTTLE TP SCH ×2 (09:00→21:15)
[2017-03-19] MEDS: Z GUARD REMEDY 4 OZ OINT TP SCH ×2 (09:00→21:16)
[2017-03-19] MEDS: VITAMINS A AND D 56.7 GM TUBE TP SCH ×4 (09:00→21:16)
[2017-03-19] MEDS: PRUNE JUICE GT SCH (12:00)
--- NOTE | 2017-03-19 13:50 | NUR ---
IDT meeting held, family unable to attend the meeting. Reviewed current medication orders, treatment and labs. NNO given at this time.
[2017-03-19] MEDS: HYDROCODONE/APAP 7.5/325MG 1 EACH TABLET GT PRN (17:39)
[2017-03-19 20:09] VITALS: BP 141/88
[2017-03-19] MEDS: METHYLNALTREXONE BROMIDE 12 MG/0.6 ML VIAL SQ SCH (21:15)
[2017-03-19] MEDS: PROSOURCE / PROSTAT (PYXIS) 30 ML UDC GT SCH (21:15)
[2017-03-19] MEDS: PRAVASTATIN SODIUM 20 MG TABLET GT SCH (21:16)
[2017-03-19] MEDS: LATANOPROST EYE DROP 0.005% 2.5 ML BOTTLE EACHEYE SCH (21:16)
[2017-03-19] MEDS: LORATADINE 10 MG TABLET GT SCH (21:16)
[2017-03-20] MEDS: ALBUTEROL HALF STRENGTH 1.25 MG/3 ML VIAL.NEB NEB SCH ×4 (02:15→19:36)
[2017-03-20] MEDS: FIBERSOURCE HN 1,000 ML BOTTLE GT PRN (03:20)
[2017-03-20] MEDS: CHLORHEXIDINE GLUCONATE 15 ML UDC MM SCH ×2 (05:31→17:12)
[2017-03-20 07:40] VITALS: BP 124/78
[2017-03-20] MEDS: DOXAZOSIN MESYLATE 8 MG GT SCH (08:46)
[2017-03-20] MEDS: ASPIRIN 81 MG TAB.CHEW GT SCH (08:46)
[2017-03-20] MEDS: [UNRECOGNIZED DRUG - OTHER] GT SCH (08:46)
[2017-03-20] MEDS: RIFAXIMIN 550 MG TABLET PO SCH ×2 (08:46→17:12)
[2017-03-20] MEDS: CHOLECALCIFEROL (VITAMIN D 3) 400 UNIT TABLET GT SCH ×2 (08:46→20:18)
[2017-03-20] MEDS: FINASTERIDE (5 MG) 5 MG TABLET GT SCH (08:46)
[2017-03-20] MEDS: POTASSIUM CHLORIDE 10 MEQ GT SCH (08:46)
[2017-03-20] MEDS: Z GUARD REMEDY 4 OZ OINT TP SCH ×2 (08:47→20:22)
[2017-03-20] MEDS: VITAMINS A AND D 56.7 GM TUBE TP SCH ×4 (08:47→20:44)
[2017-03-20] MEDS: HYDROGEN PEROXIDE 480 ML BOTTLE TP SCH ×2 (08:47→20:21)
[2017-03-20] MEDS: KETOCONAZOLE 2% CREAM 15 GM TUBE TP SCH (08:47)
[2017-03-20] MEDS: PRUNE JUICE GT SCH (11:38)
[2017-03-20] MEDS: ACETAMINOPHEN 650 MG/20 ML UDC- FOR SA PATIENTS ONLY PO PRN ×2 (12:17→22:47)
--- NOTE | 2017-03-20 15:30 | NUR ---
Seen and examined by Dr. Jerry rain.
[2017-03-20 20:00] VITALS: BP 135/73
[2017-03-20] MEDS: PROSOURCE / PROSTAT (PYXIS) 30 ML UDC GT SCH (20:18)
[2017-03-20] MEDS: METHYLNALTREXONE BROMIDE 12 MG/0.6 ML VIAL SQ SCH (20:21)
[2017-03-20] MEDS: HYDROCODONE/APAP 7.5/325MG 1 EACH TABLET GT PRN (21:01)
[2017-03-20] MEDS: LATANOPROST EYE DROP 0.005% 2.5 ML BOTTLE EACHEYE SCH (21:21)
[2017-03-20] MEDS: PRAVASTATIN SODIUM 20 MG TABLET GT SCH (21:21)
[2017-03-20] MEDS: LORATADINE 10 MG TABLET GT SCH (21:21)
[2017-03-21] MEDS: ALBUTEROL HALF STRENGTH 1.25 MG/3 ML VIAL.NEB NEB SCH ×4 (02:18→20:01)
[2017-03-21] MEDS: CHLORHEXIDINE GLUCONATE 15 ML UDC MM SCH ×2 (06:06→17:31)
[2017-03-21 08:34] VITALS: BP 121/77
[2017-03-21] MEDS: ASPIRIN 81 MG TAB.CHEW GT SCH (08:47)
[2017-03-21] MEDS: DOXAZOSIN MESYLATE 8 MG GT SCH (08:47)
[2017-03-21] MEDS: [UNRECOGNIZED DRUG - OTHER] GT SCH (08:47)
[2017-03-21] MEDS: POTASSIUM CHLORIDE 10 MEQ GT SCH (08:47)
[2017-03-21] MEDS: CHOLECALCIFEROL (VITAMIN D 3) 400 UNIT TABLET GT SCH ×2 (08:48→20:28)
[2017-03-21] MEDS: FINASTERIDE (5 MG) 5 MG TABLET GT SCH (08:48)
[2017-03-21] MEDS: RIFAXIMIN 550 MG TABLET PO SCH ×2 (08:48→17:31)
[2017-03-21] MEDS: KETOCONAZOLE 2% CREAM 15 GM TUBE TP SCH (09:00)
[2017-03-21] MEDS: HYDROGEN PEROXIDE 480 ML BOTTLE TP SCH ×2 (09:00→20:28)
[2017-03-21] MEDS: Z GUARD REMEDY 4 OZ OINT TP SCH ×2 (09:00→20:28)
[2017-03-21] MEDS: VITAMINS A AND D 56.7 GM TUBE TP SCH ×4 (09:00→20:28)
[2017-03-21] MEDS: PRUNE JUICE GT SCH (12:00)
[2017-03-21 19:39] VITALS: BP 130/77
[2017-03-21] MEDS: PROSOURCE / PROSTAT (PYXIS) 30 ML UDC GT SCH (20:28)
[2017-03-21] MEDS: METHYLNALTREXONE BROMIDE 12 MG/0.6 ML VIAL SQ SCH (20:28)
[2017-03-21] MEDS: LORATADINE 10 MG TABLET GT SCH (22:17)
[2017-03-21] MEDS: LATANOPROST EYE DROP 0.005% 2.5 ML BOTTLE EACHEYE SCH (22:17)
[2017-03-21] MEDS: PRAVASTATIN SODIUM 20 MG TABLET GT SCH (22:17)
[2017-03-22] MEDS: ALBUTEROL HALF STRENGTH 1.25 MG/3 ML VIAL.NEB NEB SCH ×4 (01:37→19:14)
[2017-03-22] MEDS: CHLORHEXIDINE GLUCONATE 15 ML UDC MM SCH ×2 (05:50→17:54)
[2017-03-22 07:56] VITALS: BP 129/82
[2017-03-22] MEDS: FINASTERIDE (5 MG) 5 MG TABLET GT SCH (08:13)
[2017-03-22] MEDS: POTASSIUM CHLORIDE 10 MEQ GT SCH (08:13)
[2017-03-22] MEDS: CHOLECALCIFEROL (VITAMIN D 3) 400 UNIT TABLET GT SCH ×2 (08:13→20:42)
[2017-03-22] MEDS: RIFAXIMIN 550 MG TABLET PO SCH ×2 (08:13→17:53)
[2017-03-22] MEDS: DOXAZOSIN MESYLATE 8 MG GT SCH (08:13)
[2017-03-22] MEDS: ASPIRIN 81 MG TAB.CHEW GT SCH (08:13)
[2017-03-22] MEDS: [UNRECOGNIZED DRUG - OTHER] GT SCH (08:13)
[2017-03-22] MEDS: Z GUARD REMEDY 4 OZ OINT TP SCH ×2 (09:00→20:42)
[2017-03-22] MEDS: VITAMINS A AND D 56.7 GM TUBE TP SCH ×4 (09:00→20:42)
[2017-03-22] MEDS: HYDROGEN PEROXIDE 480 ML BOTTLE TP SCH ×2 (09:00→20:42)
[2017-03-22] MEDS: KETOCONAZOLE 2% CREAM 15 GM TUBE TP SCH (09:00)
[2017-03-22] MEDS: PRUNE JUICE GT SCH (12:00)
[2017-03-22] MEDS: MAGNESIUM HYDROXIDE 30 ML UDC GT PRN (14:34)
[2017-03-22] MEDS: FIBERSOURCE HN 1,000 ML BOTTLE GT PRN (14:36)
[2017-03-22 19:48] VITALS: BP 142/88
[2017-03-22] MEDS: METHYLNALTREXONE BROMIDE 12 MG/0.6 ML VIAL SQ SCH (20:42)
[2017-03-22] MEDS: PROSOURCE / PROSTAT (PYXIS) 30 ML UDC GT SCH (20:42)
[2017-03-22] MEDS: LATANOPROST EYE DROP 0.005% 2.5 ML BOTTLE EACHEYE SCH (22:22)
[2017-03-22] MEDS: LORATADINE 10 MG TABLET GT SCH (22:22)
[2017-03-22] MEDS: PRAVASTATIN SODIUM 20 MG TABLET GT SCH (22:22)
[2017-03-23] MEDS: ALBUTEROL HALF STRENGTH 1.25 MG/3 ML VIAL.NEB NEB SCH ×4 (02:14→20:05)
[2017-03-23] MEDS: CHLORHEXIDINE GLUCONATE 15 ML UDC MM SCH ×2 (05:42→16:30)
[2017-03-23] MEDS: FIBERSOURCE HN 1,000 ML BOTTLE GT PRN (06:00)
[2017-03-23 07:45] VITALS: BP 123/74
[2017-03-23] MEDS: [UNRECOGNIZED DRUG - OTHER] GT SCH (08:13)
[2017-03-23] MEDS: DOXAZOSIN MESYLATE 8 MG GT SCH (08:13)
[2017-03-23] MEDS: ASPIRIN 81 MG TAB.CHEW GT SCH (08:13)
[2017-03-23] MEDS: CHOLECALCIFEROL (VITAMIN D 3) 400 UNIT TABLET GT SCH ×2 (08:14→20:38)
[2017-03-23] MEDS: FINASTERIDE (5 MG) 5 MG TABLET GT SCH (08:14)
[2017-03-23] MEDS: POTASSIUM CHLORIDE 10 MEQ GT SCH (08:14)
[2017-03-23] MEDS: RIFAXIMIN 550 MG TABLET PO SCH ×2 (08:14→16:30)
[2017-03-23] MEDS: KETOCONAZOLE 2% CREAM 15 GM TUBE TP SCH (08:14)
--- NOTE | 2017-03-23 08:54 | NUR ---
Art from Engineering came to the social media content specialist and stated that Kurt had come several times (3x) to take the wheelchair for repairs but each time he came, indicated that resident was using it. SW called resident's to confirm it was okay for him to take the wheelchair and she stated that it was. Art took the wheelchair for repair and stated she will notify the social media content specialist when it is done.
[2017-03-23] MEDS: VITAMINS A AND D 56.7 GM TUBE TP SCH ×4 (09:00→20:38)
[2017-03-23] MEDS: HYDROGEN PEROXIDE 480 ML BOTTLE TP SCH ×2 (09:00→20:38)
[2017-03-23] MEDS: Z GUARD REMEDY 4 OZ OINT TP SCH ×2 (09:00→20:38)
--- NOTE | 2017-03-23 09:22 | NUR ---
Art from [employer] came back with the wheelchair. He stated he put a protective covering for the brake handle, as it was missing. He stated that he re-engaged the arm rest locks as this is what was causing them to move forward. will be informed.
[2017-03-23] MEDS: ACETAMINOPHEN 650 MG/20 ML UDC- FOR SA PATIENTS ONLY PO PRN (09:54)
[2017-03-23] MEDS: PRUNE JUICE GT SCH (12:00)
[2017-03-23] MEDS: HYDROCODONE/APAP 7.5/325MG 1 EACH TABLET GT PRN (12:23)
[2017-03-23 19:59] VITALS: BP 132/77
[2017-03-23] MEDS: PROSOURCE / PROSTAT (PYXIS) 30 ML UDC GT SCH (20:38)
[2017-03-23] MEDS: METHYLNALTREXONE BROMIDE 12 MG/0.6 ML VIAL SQ SCH (20:38)
[2017-03-23] MEDS: LORATADINE 10 MG TABLET GT SCH (22:54)
[2017-03-23] MEDS: LATANOPROST EYE DROP 0.005% 2.5 ML BOTTLE EACHEYE SCH (22:54)
[2017-03-23] MEDS: PRAVASTATIN SODIUM 20 MG TABLET GT SCH (22:54)
[2017-03-24] MEDS: ALBUTEROL HALF STRENGTH 1.25 MG/3 ML VIAL.NEB NEB SCH ×4 (02:13→20:15)
[2017-03-24] MEDS: HYDROCODONE/APAP 7.5/325MG 1 EACH TABLET GT PRN (04:07)
[2017-03-24] MEDS: FIBERSOURCE HN 1,000 ML BOTTLE GT PRN (04:16)
[2017-03-24] MEDS: CHLORHEXIDINE GLUCONATE 15 ML UDC MM SCH ×2 (05:44→18:22)
[2017-03-24 07:55] VITALS: BP 119/81
[2017-03-24] MEDS: ASPIRIN 81 MG TAB.CHEW GT SCH (08:30)
[2017-03-24] MEDS: DOXAZOSIN MESYLATE 8 MG GT SCH (08:30)
[2017-03-24] MEDS: Z GUARD REMEDY 4 OZ OINT TP SCH ×2 (08:31→21:43)
[2017-03-24] MEDS: HYDROGEN PEROXIDE 480 ML BOTTLE TP SCH ×2 (08:31→21:43)
[2017-03-24] MEDS: KETOCONAZOLE 2% CREAM 15 GM TUBE TP SCH (08:31)
[2017-03-24] MEDS: RIFAXIMIN 550 MG TABLET PO SCH ×2 (08:31→17:00)
[2017-03-24] MEDS: POTASSIUM CHLORIDE 10 MEQ GT SCH (08:31)
[2017-03-24] MEDS: FINASTERIDE (5 MG) 5 MG TABLET GT SCH (08:31)
[2017-03-24] MEDS: CHOLECALCIFEROL (VITAMIN D 3) 400 UNIT TABLET GT SCH ×2 (08:31→21:43)
[2017-03-24] MEDS: [UNRECOGNIZED DRUG - OTHER] GT SCH (08:31)
[2017-03-24] MEDS: VITAMINS A AND D 56.7 GM TUBE TP SCH ×4 (08:32→21:43)
[2017-03-24] MEDS: PRUNE JUICE GT SCH (12:00)
[2017-03-24 19:49] VITALS: BP 129/78
[2017-03-24] MEDS: PROSOURCE / PROSTAT (PYXIS) 30 ML UDC GT SCH (21:42)
[2017-03-24] MEDS: METHYLNALTREXONE BROMIDE 12 MG/0.6 ML VIAL SQ SCH (21:43)
[2017-03-24] MEDS: LORATADINE 10 MG TABLET GT SCH (21:44)
[2017-03-24] MEDS: PRAVASTATIN SODIUM 20 MG TABLET GT SCH (21:44)
[2017-03-24] MEDS: LATANOPROST EYE DROP 0.005% 2.5 ML BOTTLE EACHEYE SCH (21:44)
[2017-03-25] MEDS: ALBUTEROL HALF STRENGTH 1.25 MG/3 ML VIAL.NEB NEB SCH ×4 (01:56→20:05)
[2017-03-25] MEDS: CHLORHEXIDINE GLUCONATE 15 ML UDC MM SCH ×2 (06:00→17:23)
[2017-03-25] MEDS: FIBERSOURCE HN 1,000 ML BOTTLE GT PRN (06:00)
[2017-03-25 07:57] VITALS: BP 111/66
[2017-03-25] MEDS: POTASSIUM CHLORIDE 10 MEQ GT SCH (09:14)
[2017-03-25] MEDS: ASPIRIN 81 MG TAB.CHEW GT SCH (09:14)
[2017-03-25] MEDS: DOXAZOSIN MESYLATE 8 MG GT SCH (09:14)
[2017-03-25] MEDS: FINASTERIDE (5 MG) 5 MG TABLET GT SCH (09:14)
[2017-03-25] MEDS: [UNRECOGNIZED DRUG - OTHER] GT SCH (09:14)
[2017-03-25] MEDS: RIFAXIMIN 550 MG TABLET PO SCH ×2 (09:15→17:23)
[2017-03-25] MEDS: Z GUARD REMEDY 4 OZ OINT TP SCH ×2 (09:15→21:18)
[2017-03-25] MEDS: HYDROGEN PEROXIDE 480 ML BOTTLE TP SCH ×2 (09:15→21:17)
[2017-03-25] MEDS: CHOLECALCIFEROL (VITAMIN D 3) 400 UNIT TABLET GT SCH ×2 (09:15→21:17)
[2017-03-25] MEDS: KETOCONAZOLE 2% CREAM 15 GM TUBE TP SCH (09:15)
[2017-03-25] MEDS: VITAMINS A AND D 56.7 GM TUBE TP SCH ×4 (09:15→21:18)
[2017-03-25] MEDS: PRUNE JUICE GT SCH (12:00)
[2017-03-25 19:18] VITALS: BP 133/83
[2017-03-25] MEDS: PROSOURCE / PROSTAT (PYXIS) 30 ML UDC GT SCH (21:17)
[2017-03-25] MEDS: METHYLNALTREXONE BROMIDE 12 MG/0.6 ML VIAL SQ SCH (21:17)
[2017-03-25] MEDS: PRAVASTATIN SODIUM 20 MG TABLET GT SCH (21:18)
[2017-03-25] MEDS: LORATADINE 10 MG TABLET GT SCH (21:18)
[2017-03-25] MEDS: LATANOPROST EYE DROP 0.005% 2.5 ML BOTTLE EACHEYE SCH (21:18)
[2017-03-26] MEDS: ALBUTEROL HALF STRENGTH 1.25 MG/3 ML VIAL.NEB NEB SCH ×4 (01:30→19:42)
[2017-03-26] MEDS: FIBERSOURCE HN 1,000 ML BOTTLE GT PRN (03:53)
[2017-03-26] MEDS: CHLORHEXIDINE GLUCONATE 15 ML UDC MM SCH ×2 (05:51→17:45)
[2017-03-26 07:44] VITALS: BP 126/85
[2017-03-26] MEDS: [UNRECOGNIZED DRUG - OTHER] GT SCH (09:37)
[2017-03-26] MEDS: CHOLECALCIFEROL (VITAMIN D 3) 400 UNIT TABLET GT SCH ×2 (09:37→21:21)
[2017-03-26] MEDS: DOXAZOSIN MESYLATE 8 MG GT SCH (09:37)
[2017-03-26] MEDS: POTASSIUM CHLORIDE 10 MEQ GT SCH (09:37)
[2017-03-26] MEDS: FINASTERIDE (5 MG) 5 MG TABLET GT SCH (09:37)
[2017-03-26] MEDS: ASPIRIN 81 MG TAB.CHEW GT SCH (09:37)
[2017-03-26] MEDS: HYDROGEN PEROXIDE 480 ML BOTTLE TP SCH ×2 (09:38→21:21)
[2017-03-26] MEDS: VITAMINS A AND D 56.7 GM TUBE TP SCH ×4 (09:38→21:21)
[2017-03-26] MEDS: Z GUARD REMEDY 4 OZ OINT TP SCH ×2 (09:38→21:21)
[2017-03-26] MEDS: KETOCONAZOLE 2% CREAM 15 GM TUBE TP SCH (09:38)
[2017-03-26] MEDS: RIFAXIMIN 550 MG TABLET PO SCH ×2 (09:38→17:45)
--- NOTE | 2017-03-26 12:10 | NUR ---
Resident was seen by Dr. Walter DDS. concerned that resident's gums are bleeding/irritated. Dr Walter asked if resident is eating food to which replied no. He stated that resident's tooth is hitting his gum when he closes his mouth. Dr Walter explained to this concept and stated that it is due to resident's jaw alignment, poor hygiene, and his tooth. He explained to that the only thing that can minimize this is to brush resident's teeth with toothpaste and a toothbrush. explained that when she is not here the staff do not do that. Dr. Walter stated he will tell the staff. Before leaving, Dr. Walter and aids social worker talked with charge nurse and she stated she will endorse it.
[2017-03-26] MEDS: ACETAMINOPHEN 650 MG/20 ML UDC- FOR SA PATIENTS ONLY PO PRN (12:40)
[2017-03-26] MEDS: PRUNE JUICE GT SCH (12:40)
[2017-03-26 19:23] VITALS: BP 138/80
[2017-03-26] MEDS: PROSOURCE / PROSTAT (PYXIS) 30 ML UDC GT SCH (21:21)
[2017-03-26] MEDS: LATANOPROST EYE DROP 0.005% 2.5 ML BOTTLE EACHEYE SCH (21:21)
[2017-03-26] MEDS: LORATADINE 10 MG TABLET GT SCH (21:21)
[2017-03-26] MEDS: METHYLNALTREXONE BROMIDE 12 MG/0.6 ML VIAL SQ SCH (21:21)
[2017-03-26] MEDS: PRAVASTATIN SODIUM 20 MG TABLET GT SCH (21:21)
[2017-03-27] MEDS: ALBUTEROL HALF STRENGTH 1.25 MG/3 ML VIAL.NEB NEB SCH ×4 (01:45→19:43)
[2017-03-27] MEDS: CHLORHEXIDINE GLUCONATE 15 ML UDC MM SCH ×2 (05:59→18:05)
[2017-03-27] MEDS: MAGNESIUM HYDROXIDE 30 ML UDC GT PRN (06:00)
[2017-03-27] MEDS: FIBERSOURCE HN 1,000 ML BOTTLE GT PRN ×2 (06:02→23:45)
[2017-03-27 07:38] VITALS: BP 128/77
[2017-03-27] MEDS: RIFAXIMIN 550 MG TABLET PO SCH ×2 (08:19→16:53)
[2017-03-27] MEDS: CHOLECALCIFEROL (VITAMIN D 3) 400 UNIT TABLET GT SCH ×2 (08:19→21:32)
[2017-03-27] MEDS: ASPIRIN 81 MG TAB.CHEW GT SCH (08:19)
[2017-03-27] MEDS: HYDROGEN PEROXIDE 480 ML BOTTLE TP SCH ×2 (08:19→21:32)
[2017-03-27] MEDS: FINASTERIDE (5 MG) 5 MG TABLET GT SCH (08:19)
[2017-03-27] MEDS: [UNRECOGNIZED DRUG - OTHER] GT SCH (08:19)
[2017-03-27] MEDS: POTASSIUM CHLORIDE 10 MEQ GT SCH (08:19)
[2017-03-27] MEDS: DOXAZOSIN MESYLATE 8 MG GT SCH (08:19)
[2017-03-27] MEDS: Z GUARD REMEDY 4 OZ OINT TP SCH ×2 (08:19→21:32)
[2017-03-27] MEDS: KETOCONAZOLE 2% CREAM 15 GM TUBE TP SCH (08:19)
[2017-03-27] MEDS: VITAMINS A AND D 56.7 GM TUBE TP SCH ×4 (08:20→21:32)
[2017-03-27] MEDS: PRUNE JUICE GT SCH (12:09)
[2017-03-27] MEDS: ACETAMINOPHEN 650 MG/20 ML UDC- FOR SA PATIENTS ONLY PO PRN (16:53)
[2017-03-27] MEDS: BISACODYL SUPP (10 MG) 10 MG/SUPP.RECT SUPP.RECT RC PRN (18:05)
[2017-03-27] MEDS: HYDROCODONE/APAP 7.5/325MG 1 EACH TABLET GT PRN (18:32)
[2017-03-27 19:38] VITALS: BP 125/82
[2017-03-27] MEDS: PROSOURCE / PROSTAT (PYXIS) 30 ML UDC GT SCH (21:32)
[2017-03-27] MEDS: METHYLNALTREXONE BROMIDE 12 MG/0.6 ML VIAL SQ SCH (21:32)
[2017-03-27] MEDS: LATANOPROST EYE DROP 0.005% 2.5 ML BOTTLE EACHEYE SCH (21:33)
[2017-03-27] MEDS: PRAVASTATIN SODIUM 20 MG TABLET GT SCH (21:34)
[2017-03-27] MEDS: LORATADINE 10 MG TABLET GT SCH (21:36)
[2017-03-28] MEDS: ALBUTEROL HALF STRENGTH 1.25 MG/3 ML VIAL.NEB NEB SCH ×4 (02:06→20:01)
[2017-03-28] MEDS: CHLORHEXIDINE GLUCONATE 15 ML UDC MM SCH ×2 (06:50→17:20)
[2017-03-28 07:52] VITALS: BP 116/67
[2017-03-28] MEDS: ASPIRIN 81 MG TAB.CHEW GT SCH (08:51)
[2017-03-28] MEDS: POTASSIUM CHLORIDE 10 MEQ GT SCH (08:51)
[2017-03-28] MEDS: DOXAZOSIN MESYLATE 8 MG GT SCH (08:51)
[2017-03-28] MEDS: FINASTERIDE (5 MG) 5 MG TABLET GT SCH (08:51)
[2017-03-28] MEDS: [UNRECOGNIZED DRUG - OTHER] GT SCH (08:51)
[2017-03-28] MEDS: CHOLECALCIFEROL (VITAMIN D 3) 400 UNIT TABLET GT SCH ×2 (08:52→20:04)
[2017-03-28] MEDS: HYDROGEN PEROXIDE 480 ML BOTTLE TP SCH ×2 (08:53→20:04)
[2017-03-28] MEDS: RIFAXIMIN 550 MG TABLET PO SCH ×2 (08:53→17:20)
[2017-03-28] MEDS: KETOCONAZOLE 2% CREAM 15 GM TUBE TP SCH (08:54)
[2017-03-28] MEDS: Z GUARD REMEDY 4 OZ OINT TP SCH ×2 (08:54→20:04)
[2017-03-28] MEDS: VITAMINS A AND D 56.7 GM TUBE TP SCH ×4 (08:54→20:04)
[2017-03-28] MEDS: PRUNE JUICE GT SCH (12:00)
[2017-03-28 19:48] VITALS: BP 152/88
[2017-03-28] MEDS: METHYLNALTREXONE BROMIDE 12 MG/0.6 ML VIAL SQ SCH (20:04)
[2017-03-28] MEDS: PROSOURCE / PROSTAT (PYXIS) 30 ML UDC GT SCH (20:04)
[2017-03-28] MEDS: LORATADINE 10 MG TABLET GT SCH (22:23)
[2017-03-28] MEDS: LATANOPROST EYE DROP 0.005% 2.5 ML BOTTLE EACHEYE SCH (22:23)
[2017-03-28] MEDS: PRAVASTATIN SODIUM 20 MG TABLET GT SCH (22:23)
[2017-03-28] MEDS: FIBERSOURCE HN 1,000 ML BOTTLE GT PRN (23:40)
[2017-03-28] MEDS: HYDROCODONE/APAP 7.5/325MG 1 EACH TABLET GT PRN (23:41)
[2017-03-29] MEDS: ALBUTEROL HALF STRENGTH 1.25 MG/3 ML VIAL.NEB NEB SCH ×4 (01:39→20:07)
[2017-03-29] MEDS: CHLORHEXIDINE GLUCONATE 15 ML UDC MM SCH ×2 (05:40→17:06)
[2017-03-29 07:55] VITALS: BP 107/71
[2017-03-29] MEDS: CHOLECALCIFEROL (VITAMIN D 3) 400 UNIT TABLET GT SCH ×2 (08:08→20:30)
[2017-03-29] MEDS: [UNRECOGNIZED DRUG - OTHER] GT SCH (08:08)
[2017-03-29] MEDS: DOXAZOSIN MESYLATE 8 MG GT SCH (08:08)
[2017-03-29] MEDS: RIFAXIMIN 550 MG TABLET PO SCH ×2 (08:08→17:06)
[2017-03-29] MEDS: FINASTERIDE (5 MG) 5 MG TABLET GT SCH (08:08)
[2017-03-29] MEDS: ASPIRIN 81 MG TAB.CHEW GT SCH (08:08)
[2017-03-29] MEDS: POTASSIUM CHLORIDE 10 MEQ GT SCH (08:08)
[2017-03-29] MEDS: HYDROGEN PEROXIDE 480 ML BOTTLE TP SCH ×2 (09:00→20:30)
[2017-03-29] MEDS: KETOCONAZOLE 2% CREAM 15 GM TUBE TP SCH (09:00)
[2017-03-29] MEDS: VITAMINS A AND D 56.7 GM TUBE TP SCH ×4 (09:00→20:30)
[2017-03-29] MEDS: Z GUARD REMEDY 4 OZ OINT TP SCH ×2 (09:00→20:30)
[2017-03-29] MEDS: PRUNE JUICE GT SCH (12:00)
[2017-03-29 19:53] VITALS: BP 124/79
[2017-03-29] MEDS: PROSOURCE / PROSTAT (PYXIS) 30 ML UDC GT SCH (20:30)
[2017-03-29] MEDS: METHYLNALTREXONE BROMIDE 12 MG/0.6 ML VIAL SQ SCH (20:30)
[2017-03-29] MEDS: LATANOPROST EYE DROP 0.005% 2.5 ML BOTTLE EACHEYE SCH (22:00)
[2017-03-29] MEDS: LORATADINE 10 MG TABLET GT SCH (22:00)
[2017-03-29] MEDS: PRAVASTATIN SODIUM 20 MG TABLET GT SCH (22:00)
[2017-03-29] MEDS: FIBERSOURCE HN 1,000 ML BOTTLE GT PRN (23:57)
[2017-03-30] MEDS: ALBUTEROL HALF STRENGTH 1.25 MG/3 ML VIAL.NEB NEB SCH ×4 (02:15→19:49)
[2017-03-30] MEDS: CHLORHEXIDINE GLUCONATE 15 ML UDC MM SCH ×2 (05:44→18:10)
[2017-03-30 07:45] VITALS: BP 124/80
[2017-03-30] MEDS: [UNRECOGNIZED DRUG - OTHER] GT SCH (08:21)
[2017-03-30] MEDS: FINASTERIDE (5 MG) 5 MG TABLET GT SCH (08:21)
[2017-03-30] MEDS: POTASSIUM CHLORIDE 10 MEQ GT SCH (08:21)
[2017-03-30] MEDS: RIFAXIMIN 550 MG TABLET PO SCH ×2 (08:21→17:00)
[2017-03-30] MEDS: HYDROGEN PEROXIDE 480 ML BOTTLE TP SCH ×2 (08:21→20:46)
[2017-03-30] MEDS: DOXAZOSIN MESYLATE 8 MG GT SCH (08:21)
[2017-03-30] MEDS: CHOLECALCIFEROL (VITAMIN D 3) 400 UNIT TABLET GT SCH ×2 (08:21→20:45)
[2017-03-30] MEDS: ASPIRIN 81 MG TAB.CHEW GT SCH (08:21)
[2017-03-30] MEDS: VITAMINS A AND D 56.7 GM TUBE TP SCH ×4 (08:22→20:47)
[2017-03-30] MEDS: Z GUARD REMEDY 4 OZ OINT TP SCH ×2 (08:22→20:46)
[2017-03-30] MEDS: KETOCONAZOLE 2% CREAM 15 GM TUBE TP SCH (08:22)
[2017-03-30] MEDS: SIMETHICONE SUSP 40 MG/0.6 ML BOTTLE GT PRN (12:10)
[2017-03-30] MEDS: PRUNE JUICE GT SCH (12:11)
[2017-03-30] MEDS: MAGNESIUM HYDROXIDE 30 ML UDC GT PRN (17:00)
[2017-03-30 20:04] VITALS: BP 130/80
[2017-03-30] MEDS: PROSOURCE / PROSTAT (PYXIS) 30 ML UDC GT SCH (20:44)
[2017-03-30] MEDS: METHYLNALTREXONE BROMIDE 12 MG/0.6 ML VIAL SQ SCH (20:45)
[2017-03-30] MEDS: FIBERSOURCE HN 1,000 ML BOTTLE GT PRN (21:33)
[2017-03-30] MEDS: LORATADINE 10 MG TABLET GT SCH (21:39)
[2017-03-30] MEDS: LATANOPROST EYE DROP 0.005% 2.5 ML BOTTLE EACHEYE SCH (21:39)
[2017-03-30] MEDS: PRAVASTATIN SODIUM 20 MG TABLET GT SCH (21:39)
[2017-03-31] MEDS: ALBUTEROL HALF STRENGTH 1.25 MG/3 ML VIAL.NEB NEB SCH ×4 (01:52→20:25)
[2017-03-31] MEDS: CHLORHEXIDINE GLUCONATE 15 ML UDC MM SCH ×2 (05:32→17:28)
[2017-03-31 08:02] VITALS: BP 117/70
[2017-03-31] MEDS: DOXAZOSIN MESYLATE 8 MG GT SCH (08:46)
[2017-03-31] MEDS: ASPIRIN 81 MG TAB.CHEW GT SCH (08:46)
[2017-03-31] MEDS: HYDROGEN PEROXIDE 480 ML BOTTLE TP SCH ×2 (08:47→21:28)
[2017-03-31] MEDS: VITAMINS A AND D 56.7 GM TUBE TP SCH ×4 (08:47→21:28)
[2017-03-31] MEDS: CHOLECALCIFEROL (VITAMIN D 3) 400 UNIT TABLET GT SCH ×2 (08:47→21:27)
[2017-03-31] MEDS: [UNRECOGNIZED DRUG - OTHER] GT SCH (08:47)
[2017-03-31] MEDS: KETOCONAZOLE 2% CREAM 15 GM TUBE TP SCH (08:47)
[2017-03-31] MEDS: Z GUARD REMEDY 4 OZ OINT TP SCH ×2 (08:47→21:28)
[2017-03-31] MEDS: FINASTERIDE (5 MG) 5 MG TABLET GT SCH (08:47)
[2017-03-31] MEDS: RIFAXIMIN 550 MG TABLET PO SCH ×2 (08:47→17:28)
[2017-03-31] MEDS: POTASSIUM CHLORIDE 10 MEQ GT SCH (08:47)
[2017-03-31] MEDS: PRUNE JUICE GT SCH (12:00)
[2017-03-31] MEDS: HYDROCODONE/APAP 7.5/325MG 1 EACH TABLET GT PRN (17:29)
[2017-03-31 19:41] VITALS: BP 123/77
[2017-03-31] MEDS: PROSOURCE / PROSTAT (PYXIS) 30 ML UDC GT SCH (21:27)
[2017-03-31] MEDS: METHYLNALTREXONE BROMIDE 12 MG/0.6 ML VIAL SQ SCH (21:27)
[2017-03-31] MEDS: LATANOPROST EYE DROP 0.005% 2.5 ML BOTTLE EACHEYE SCH (21:28)
[2017-03-31] MEDS: SIMETHICONE SUSP 40 MG/0.6 ML BOTTLE GT PRN (21:28)
[2017-03-31] MEDS: PRAVASTATIN SODIUM 20 MG TABLET GT SCH (21:28)
[2017-03-31] MEDS: LORATADINE 10 MG TABLET GT SCH (21:28)
[2017-03-31] MEDS: FIBERSOURCE HN 1,000 ML BOTTLE GT PRN (21:35)
[2017-04-01] MEDS: ALBUTEROL HALF STRENGTH 1.25 MG/3 ML VIAL.NEB NEB SCH ×4 (01:49→20:07)
[2017-04-01] MEDS: CHLORHEXIDINE GLUCONATE 15 ML UDC MM SCH ×2 (05:43→17:15)
[2017-04-01 07:43] VITALS: BP 122/59
[2017-04-01] MEDS: [UNRECOGNIZED DRUG - OTHER] GT SCH (08:39)
[2017-04-01] MEDS: RIFAXIMIN 550 MG TABLET PO SCH ×2 (08:39→16:42)
[2017-04-01] MEDS: POTASSIUM CHLORIDE 10 MEQ GT SCH (08:39)
[2017-04-01] MEDS: ASPIRIN 81 MG TAB.CHEW GT SCH (08:39)
[2017-04-01] MEDS: DOXAZOSIN MESYLATE 8 MG GT SCH (08:39)
[2017-04-01] MEDS: FINASTERIDE (5 MG) 5 MG TABLET GT SCH (08:39)
[2017-04-01] MEDS: CHOLECALCIFEROL (VITAMIN D 3) 400 UNIT TABLET GT SCH ×2 (08:39→21:24)
[2017-04-01] MEDS: Z GUARD REMEDY 4 OZ OINT TP SCH ×2 (08:40→21:25)
[2017-04-01] MEDS: VITAMINS A AND D 56.7 GM TUBE TP SCH ×4 (08:40→21:25)
[2017-04-01] MEDS: HYDROGEN PEROXIDE 480 ML BOTTLE TP SCH ×2 (08:40→21:25)
[2017-04-01] MEDS: KETOCONAZOLE 2% CREAM 15 GM TUBE TP SCH (08:40)
[2017-04-01] MEDS: PRUNE JUICE GT SCH (11:43)
[2017-04-01] MEDS: HYDROCODONE/APAP 7.5/325MG 1 EACH TABLET GT PRN (11:44)
[2017-04-01] MEDS: BISACODYL SUPP (10 MG) 10 MG/SUPP.RECT SUPP.RECT RC PRN (18:13)
[2017-04-01] MEDS: FIBERSOURCE HN 1,000 ML BOTTLE GT PRN (18:13)
[2017-04-01 21:06] VITALS: BP 112/72
[2017-04-01] MEDS: METHYLNALTREXONE BROMIDE 12 MG/0.6 ML VIAL SQ SCH (21:24)
[2017-04-01] MEDS: PROSOURCE / PROSTAT (PYXIS) 30 ML UDC GT SCH (21:24)
[2017-04-01] MEDS: LATANOPROST EYE DROP 0.005% 2.5 ML BOTTLE EACHEYE SCH (21:25)
[2017-04-01] MEDS: LORATADINE 10 MG TABLET GT SCH (21:27)
[2017-04-01] MEDS: SIMETHICONE SUSP 40 MG/0.6 ML BOTTLE GT PRN (21:27)
[2017-04-01] MEDS: PRAVASTATIN SODIUM 20 MG TABLET GT SCH (21:27)
[2017-04-01] MEDS: MAGNESIUM HYDROXIDE 30 ML UDC GT PRN (21:27)
[2017-04-01] MEDS: [UNRECOGNIZED DRUG - OTHER] GT PRN (21:27)
[2017-04-02] MEDS: ALBUTEROL HALF STRENGTH 1.25 MG/3 ML VIAL.NEB NEB SCH ×4 (02:21→19:15)
[2017-04-02] MEDS: CHLORHEXIDINE GLUCONATE 15 ML UDC MM SCH ×2 (05:25→17:16)
[2017-04-02 07:41] VITALS: BP 115/52
[2017-04-02] MEDS: HYDROGEN PEROXIDE 480 ML BOTTLE TP SCH ×2 (09:08→21:08)
[2017-04-02] MEDS: Z GUARD REMEDY 4 OZ OINT TP SCH ×2 (09:08→21:08)
[2017-04-02] MEDS: DOXAZOSIN MESYLATE 8 MG GT SCH (09:08)
[2017-04-02] MEDS: KETOCONAZOLE 2% CREAM 15 GM TUBE TP SCH (09:08)
[2017-04-02] MEDS: [UNRECOGNIZED DRUG - OTHER] GT SCH (09:08)
[2017-04-02] MEDS: ASPIRIN 81 MG TAB.CHEW GT SCH (09:08)
[2017-04-02] MEDS: CHOLECALCIFEROL (VITAMIN D 3) 400 UNIT TABLET GT SCH ×2 (09:08→21:08)
[2017-04-02] MEDS: RIFAXIMIN 550 MG TABLET PO SCH ×2 (09:08→17:16)
[2017-04-02] MEDS: FINASTERIDE (5 MG) 5 MG TABLET GT SCH (09:08)
[2017-04-02] MEDS: POTASSIUM CHLORIDE 10 MEQ GT SCH (09:08)
[2017-04-02] MEDS: VITAMINS A AND D 56.7 GM TUBE TP SCH ×4 (09:08→21:08)
[2017-04-02] MEDS: HYDROCODONE/APAP 7.5/325MG 1 EACH TABLET GT PRN ×2 (10:16→17:16)
[2017-04-02] MEDS: PRUNE JUICE GT SCH (12:19)
[2017-04-02] MEDS: FIBERSOURCE HN 1,000 ML BOTTLE GT PRN (17:16)
[2017-04-02 19:25] VITALS: BP 115/72
[2017-04-02] MEDS: LATANOPROST EYE DROP 0.005% 2.5 ML BOTTLE EACHEYE SCH (21:08)
[2017-04-02] MEDS: METHYLNALTREXONE BROMIDE 12 MG/0.6 ML VIAL SQ SCH (21:08)
[2017-04-02] MEDS: LORATADINE 10 MG TABLET GT SCH (21:08)
[2017-04-02] MEDS: PROSOURCE / PROSTAT (PYXIS) 30 ML UDC GT SCH (21:08)
[2017-04-02] MEDS: PRAVASTATIN SODIUM 20 MG TABLET GT SCH (21:08)
[2017-04-03] MEDS: ALBUTEROL HALF STRENGTH 1.25 MG/3 ML VIAL.NEB NEB SCH ×4 (01:13→19:30)
[2017-04-03] MEDS: CHLORHEXIDINE GLUCONATE 15 ML UDC MM SCH ×2 (05:22→17:20)
[2017-04-03] MEDS: MAGNESIUM HYDROXIDE 30 ML UDC GT PRN (05:22)
[2017-04-03 07:30] VITALS: BP 105/75
[2017-04-03] MEDS: ASPIRIN 81 MG TAB.CHEW GT SCH (09:37)
[2017-04-03] MEDS: [UNRECOGNIZED DRUG - OTHER] GT SCH (09:37)
[2017-04-03] MEDS: DOXAZOSIN MESYLATE 8 MG GT SCH (09:37)
[2017-04-03] MEDS: POTASSIUM CHLORIDE 10 MEQ GT SCH (09:37)
[2017-04-03] MEDS: RIFAXIMIN 550 MG TABLET PO SCH ×2 (09:38→16:46)
[2017-04-03] MEDS: FINASTERIDE (5 MG) 5 MG TABLET GT SCH (09:38)
[2017-04-03] MEDS: CHOLECALCIFEROL (VITAMIN D 3) 400 UNIT TABLET GT SCH ×2 (09:38→21:26)
[2017-04-03] MEDS: VITAMINS A AND D 56.7 GM TUBE TP SCH ×4 (09:38→21:26)
[2017-04-03] MEDS: KETOCONAZOLE 2% CREAM 15 GM TUBE TP SCH (09:38)
[2017-04-03] MEDS: Z GUARD REMEDY 4 OZ OINT TP SCH ×2 (09:38→21:26)
[2017-04-03] MEDS: HYDROGEN PEROXIDE 480 ML BOTTLE TP SCH ×2 (09:38→21:26)
[2017-04-03] MEDS: PRUNE JUICE GT SCH (12:00)
[2017-04-03] MEDS: HYDROCODONE/APAP 7.5/325MG 1 EACH TABLET GT PRN (17:20)
[2017-04-03 19:38] VITALS: BP 126/76
[2017-04-03] MEDS: PROSOURCE / PROSTAT (PYXIS) 30 ML UDC GT SCH (21:26)
[2017-04-03] MEDS: METHYLNALTREXONE BROMIDE 12 MG/0.6 ML VIAL SQ SCH (21:26)
[2017-04-03] MEDS: LATANOPROST EYE DROP 0.005% 2.5 ML BOTTLE EACHEYE SCH (21:26)
[2017-04-03] MEDS: LORATADINE 10 MG TABLET GT SCH (21:26)
[2017-04-03] MEDS: PRAVASTATIN SODIUM 20 MG TABLET GT SCH (21:26)
[2017-04-03] MEDS: FIBERSOURCE HN 1,000 ML BOTTLE GT PRN (23:07)
[2017-04-04] MEDS: HYDROCODONE/APAP 7.5/325MG 1 EACH TABLET GT PRN ×2 (01:16→19:25)
[2017-04-04] MEDS: ALBUTEROL HALF STRENGTH 1.25 MG/3 ML VIAL.NEB NEB SCH ×4 (01:30→19:39)
[2017-04-04] MEDS: CHLORHEXIDINE GLUCONATE 15 ML UDC MM SCH ×2 (05:55→17:03)
[2017-04-04 07:43] VITALS: BP 128/80
[2017-04-04] MEDS: CHOLECALCIFEROL (VITAMIN D 3) 400 UNIT TABLET GT SCH ×2 (08:36→20:46)
[2017-04-04] MEDS: [UNRECOGNIZED DRUG - OTHER] GT SCH (08:36)
[2017-04-04] MEDS: FINASTERIDE (5 MG) 5 MG TABLET GT SCH (08:36)
[2017-04-04] MEDS: POTASSIUM CHLORIDE 10 MEQ GT SCH (08:36)
[2017-04-04] MEDS: ASPIRIN 81 MG TAB.CHEW GT SCH (08:36)
[2017-04-04] MEDS: DOXAZOSIN MESYLATE 8 MG GT SCH (08:36)
[2017-04-04] MEDS: RIFAXIMIN 550 MG TABLET PO SCH ×2 (08:36→17:02)
[2017-04-04] MEDS: KETOCONAZOLE 2% CREAM 15 GM TUBE TP SCH (08:37)
[2017-04-04] MEDS: Z GUARD REMEDY 4 OZ OINT TP SCH ×2 (08:37→20:47)
[2017-04-04] MEDS: VITAMINS A AND D 56.7 GM TUBE TP SCH ×4 (08:37→20:48)
[2017-04-04] MEDS: HYDROGEN PEROXIDE 480 ML BOTTLE TP SCH ×2 (08:37→20:47)
[2017-04-04] MEDS: PRUNE JUICE GT SCH (12:00)
[2017-04-04] MEDS: MAGNESIUM HYDROXIDE 30 ML UDC GT PRN (18:51)
[2017-04-04] MEDS: FIBERSOURCE HN 1,000 ML BOTTLE GT PRN (18:51)
[2017-04-04] MEDS: METHYLNALTREXONE BROMIDE 12 MG/0.6 ML VIAL SQ SCH (20:47)
[2017-04-04] MEDS: PROSOURCE / PROSTAT (PYXIS) 30 ML UDC GT SCH (20:55)
[2017-04-04] MEDS: PRAVASTATIN SODIUM 20 MG TABLET GT SCH (22:04)
[2017-04-04] MEDS: LORATADINE 10 MG TABLET GT SCH (22:04)
[2017-04-04] MEDS: LATANOPROST EYE DROP 0.005% 2.5 ML BOTTLE EACHEYE SCH (22:04)
[2017-04-04 23:21] VITALS: BP 136/97
[2017-04-05] MEDS: ALBUTEROL HALF STRENGTH 1.25 MG/3 ML VIAL.NEB NEB SCH ×4 (01:15→19:39)
[2017-04-05] MEDS: HYDROCODONE/APAP 7.5/325MG 1 EACH TABLET GT PRN (02:50)
[2017-04-05] MEDS: CHLORHEXIDINE GLUCONATE 15 ML UDC MM SCH ×2 (05:29→18:12)
[2017-04-05] MEDS: CHOLECALCIFEROL (VITAMIN D 3) 400 UNIT TABLET GT SCH ×2 (09:34→21:09)
[2017-04-05] MEDS: POTASSIUM CHLORIDE 10 MEQ GT SCH (09:34)
[2017-04-05] MEDS: KETOCONAZOLE 2% CREAM 15 GM TUBE TP SCH (09:34)
[2017-04-05] MEDS: HYDROGEN PEROXIDE 480 ML BOTTLE TP SCH ×2 (09:34→21:09)
[2017-04-05] MEDS: ASPIRIN 81 MG TAB.CHEW GT SCH (09:34)
[2017-04-05] MEDS: RIFAXIMIN 550 MG TABLET PO SCH ×2 (09:34→17:00)
[2017-04-05] MEDS: [UNRECOGNIZED DRUG - OTHER] GT SCH (09:34)
[2017-04-05] MEDS: FINASTERIDE (5 MG) 5 MG TABLET GT SCH (09:34)
[2017-04-05] MEDS: DOXAZOSIN MESYLATE 8 MG GT SCH (09:34)
[2017-04-05] MEDS: VITAMINS A AND D 56.7 GM TUBE TP SCH ×4 (09:35→21:10)
[2017-04-05] MEDS: Z GUARD REMEDY 4 OZ OINT TP SCH ×2 (09:35→21:09)
[2017-04-05] MEDS: PRUNE JUICE GT SCH (12:00)
[2017-04-05] MEDS: FIBERSOURCE HN 1,000 ML BOTTLE GT PRN (18:34)
[2017-04-05 19:50] VITALS: BP 125/79
[2017-04-05] MEDS: PROSOURCE / PROSTAT (PYXIS) 30 ML UDC GT SCH (21:09)
[2017-04-05] MEDS: METHYLNALTREXONE BROMIDE 12 MG/0.6 ML VIAL SQ SCH (21:09)
[2017-04-05] MEDS: LORATADINE 10 MG TABLET GT SCH (21:10)
[2017-04-05] MEDS: PRAVASTATIN SODIUM 20 MG TABLET GT SCH (21:10)
[2017-04-05] MEDS: LATANOPROST EYE DROP 0.005% 2.5 ML BOTTLE EACHEYE SCH (21:10)
[2017-04-06] MEDS: ALBUTEROL HALF STRENGTH 1.25 MG/3 ML VIAL.NEB NEB SCH ×4 (01:07→20:31)
[2017-04-06] MEDS: CHLORHEXIDINE GLUCONATE 15 ML UDC MM SCH ×2 (05:19→18:13)
[2017-04-06 08:00] VITALS: BP 126/72
[2017-04-06] MEDS: CHOLECALCIFEROL (VITAMIN D 3) 400 UNIT TABLET GT SCH ×2 (10:15→21:15)
[2017-04-06] MEDS: FINASTERIDE (5 MG) 5 MG TABLET GT SCH (10:15)
[2017-04-06] MEDS: Z GUARD REMEDY 4 OZ OINT TP SCH ×2 (10:15→21:15)
[2017-04-06] MEDS: [UNRECOGNIZED DRUG - OTHER] GT SCH (10:15)
[2017-04-06] MEDS: ASPIRIN 81 MG TAB.CHEW GT SCH (10:15)
[2017-04-06] MEDS: RIFAXIMIN 550 MG TABLET PO SCH ×2 (10:15→17:00)
[2017-04-06] MEDS: DOXAZOSIN MESYLATE 8 MG GT SCH (10:15)
[2017-04-06] MEDS: HYDROGEN PEROXIDE 480 ML BOTTLE TP SCH ×2 (10:15→21:15)
[2017-04-06] MEDS: VITAMINS A AND D 56.7 GM TUBE TP SCH ×4 (10:15→21:15)
[2017-04-06] MEDS: KETOCONAZOLE 2% CREAM 15 GM TUBE TP SCH (10:15)
[2017-04-06] MEDS: POTASSIUM CHLORIDE 10 MEQ GT SCH (10:15)
[2017-04-06] MEDS: PRUNE JUICE GT SCH (12:00)
[2017-04-06] MEDS: FIBERSOURCE HN 1,000 ML BOTTLE GT PRN (15:43)
[2017-04-06 20:05] VITALS: BP 133/78
[2017-04-06] MEDS: METHYLNALTREXONE BROMIDE 12 MG/0.6 ML VIAL SQ SCH (21:15)
[2017-04-06] MEDS: LORATADINE 10 MG TABLET GT SCH (21:15)
[2017-04-06] MEDS: LATANOPROST EYE DROP 0.005% 2.5 ML BOTTLE EACHEYE SCH (21:15)
[2017-04-06] MEDS: PROSOURCE / PROSTAT (PYXIS) 30 ML UDC GT SCH (21:15)
[2017-04-06] MEDS: PRAVASTATIN SODIUM 20 MG TABLET GT SCH (21:16)
[2017-04-07] MEDS: ALBUTEROL HALF STRENGTH 1.25 MG/3 ML VIAL.NEB NEB SCH ×4 (01:58→19:51)
[2017-04-07] MEDS: CHLORHEXIDINE GLUCONATE 15 ML UDC MM SCH ×2 (05:32→17:07)
[2017-04-07 08:40] VITALS: BP 132/69
[2017-04-07] MEDS: FINASTERIDE (5 MG) 5 MG TABLET GT SCH (09:00)
[2017-04-07] MEDS: CHOLECALCIFEROL (VITAMIN D 3) 400 UNIT TABLET GT SCH ×2 (09:00→20:06)
[2017-04-07] MEDS: KETOCONAZOLE 2% CREAM 15 GM TUBE TP SCH (09:00)
[2017-04-07] MEDS: [UNRECOGNIZED DRUG - OTHER] GT SCH (09:00)
[2017-04-07] MEDS: VITAMINS A AND D 56.7 GM TUBE TP SCH ×4 (09:00→20:07)
[2017-04-07] MEDS: RIFAXIMIN 550 MG TABLET PO SCH ×2 (09:00→16:58)
[2017-04-07] MEDS: ASPIRIN 81 MG TAB.CHEW GT SCH (09:00)
[2017-04-07] MEDS: DOXAZOSIN MESYLATE 8 MG GT SCH (09:00)
[2017-04-07] MEDS: HYDROGEN PEROXIDE 480 ML BOTTLE TP SCH ×2 (09:00→20:06)
[2017-04-07] MEDS: POTASSIUM CHLORIDE 10 MEQ GT SCH (09:00)
[2017-04-07] MEDS: Z GUARD REMEDY 4 OZ OINT TP SCH ×2 (09:00→20:06)
--- NOTE | 2017-04-07 10:00 | NUR ---
Observed resident up in the chair, restless, kicking and pushing himself backward. Asked if he wants to be suctioned, or if he is in pain. Patient pointed at his abdomen. DOWEL MACHINE OPERATOR assigned medicated him with [place]. STALLION KEEPER also reported patient threw dirty towel at her while she was cleaning her. He was taken to activity room for activities.
[2017-04-07] MEDS: PRUNE JUICE GT SCH (12:40)
[2017-04-07] MEDS: HYDROCODONE/APAP 7.5/325MG 1 EACH TABLET GT PRN ×2 (12:41→20:08)
--- NOTE | 2017-04-07 14:40 | NUR ---
Reported by BLUE LINE TRIMMER resident with purplish discoloration in the L lateral thigh, possibly self inflicted due to his episode of restlessness this AM. aware. Dr. Edwards notified that patient's urine has very strong smell, T 97.5, and is receiving 350 ml. water flushing Q [address] Edwards at this time.
[2017-04-07] MEDS: METHYLNALTREXONE BROMIDE 12 MG/0.6 ML VIAL SQ SCH (20:06)
[2017-04-07] MEDS: PROSOURCE / PROSTAT (PYXIS) 30 ML UDC GT SCH (20:06)
--- NOTE | 2017-04-07 20:09 | NUR ---
Resident restless and thrashing in bed. Seen with legs over side rails. Repositioned resident into comfortable position. Asked pt if he is in pain and responded by nodding his head up and down and grasping abdomen. [place] 2 tabs prn provided as ordered. Will continue to monitor pt. Frequent visual check done.
[2017-04-07 20:12] VITALS: BP 128/70
[2017-04-07] MEDS: PRAVASTATIN SODIUM 20 MG TABLET GT SCH (21:18)
[2017-04-07] MEDS: LATANOPROST EYE DROP 0.005% 2.5 ML BOTTLE EACHEYE SCH (21:18)
[2017-04-07] MEDS: LORATADINE 10 MG TABLET GT SCH (21:18)
--- NOTE | 2017-04-07 21:18 | NUR ---
Post 1 hour resident calm and asleep in bed easy to arouse without s/s of any kind of distress. Respiration even and unlabored. TX 0/10. Kept clean, dry, and comfortable. Repositioned q 2hrs and prn. Call light within reach at all times. Frequent visual check done for safety. Will continue to monitor.
[2017-04-08] MEDS: ALBUTEROL HALF STRENGTH 1.25 MG/3 ML VIAL.NEB NEB SCH ×4 (01:50→19:56)
[2017-04-08] MEDS: CHLORHEXIDINE GLUCONATE 15 ML UDC MM SCH ×2 (05:33→17:37)
[2017-04-08] MEDS: FIBERSOURCE HN 1,000 ML BOTTLE GT PRN (06:20)
[2017-04-08 07:54] VITALS: BP 128/78
[2017-04-08] MEDS: FINASTERIDE (5 MG) 5 MG TABLET GT SCH (08:23)
[2017-04-08] MEDS: DOXAZOSIN MESYLATE 8 MG GT SCH (08:23)
[2017-04-08] MEDS: ASPIRIN 81 MG TAB.CHEW GT SCH (08:23)
[2017-04-08] MEDS: [UNRECOGNIZED DRUG - OTHER] GT SCH (08:23)
[2017-04-08] MEDS: CHOLECALCIFEROL (VITAMIN D 3) 400 UNIT TABLET GT SCH ×2 (08:23→21:17)
[2017-04-08] MEDS: POTASSIUM CHLORIDE 10 MEQ GT SCH (08:23)
[2017-04-08] MEDS: RIFAXIMIN 550 MG TABLET PO SCH ×2 (08:23→17:37)
[2017-04-08] MEDS: HYDROGEN PEROXIDE 480 ML BOTTLE TP SCH ×2 (08:24→21:17)
[2017-04-08] MEDS: VITAMINS A AND D 56.7 GM TUBE TP SCH ×4 (09:00→21:17)
[2017-04-08] MEDS: Z GUARD REMEDY 4 OZ OINT TP SCH ×2 (09:00→21:17)
[2017-04-08] MEDS: KETOCONAZOLE 2% CREAM 15 GM TUBE TP SCH (09:00)
[2017-04-08] MEDS: HYDROCODONE/APAP 7.5/325MG 1 EACH TABLET GT PRN ×2 (10:37→17:38)
[2017-04-08] MEDS: PRUNE JUICE GT SCH (12:00)
[2017-04-08 20:00] VITALS: BP 127/76
[2017-04-08] MEDS: LATANOPROST EYE DROP 0.005% 2.5 ML BOTTLE EACHEYE SCH (21:17)
[2017-04-08] MEDS: PROSOURCE / PROSTAT (PYXIS) 30 ML UDC GT SCH (21:17)
[2017-04-08] MEDS: METHYLNALTREXONE BROMIDE 12 MG/0.6 ML VIAL SQ SCH (21:17)
[2017-04-08] MEDS: PRAVASTATIN SODIUM 20 MG TABLET GT SCH (21:18)
[2017-04-08] MEDS: LORATADINE 10 MG TABLET GT SCH (21:18)
[2017-04-09] MEDS: ALBUTEROL HALF STRENGTH 1.25 MG/3 ML VIAL.NEB NEB SCH ×4 (02:24→19:00)
[2017-04-09] MEDS: FIBERSOURCE HN 1,000 ML BOTTLE GT PRN (04:51)
[2017-04-09] MEDS: CHLORHEXIDINE GLUCONATE 15 ML UDC MM SCH ×2 (06:44→17:37)
[2017-04-09 07:03] LABS: BASOPHILS % (AUTO) 0.8 % (0.0-2.0); EOSINOPHILS # (AUTO) 0.2 /CMM (0.0-0.7); EOSINOPHILS % (AUTO) 5.9 % (0.0-6.0); HEMATOCRIT 42 % (39-51); HEMOGLOBIN 14.2 g/dL (13.5-17.5); LYMPHOCYTES % (AUTO) 38.1 % (20.0-44.0); MEAN CORPUSCULAR HEMOGLOBIN 33 PG (26.0-33.0); MEAN CORPUSCULAR HGB CONC 34 g/dl (31.0-36.0); MEAN CORPUSCULAR VOLUME 97 fL (80-96); MONOCYTES # (AUTO) 0.3 /CMM (0.1-1.30); MONOCYTES % (AUTO) 11.6 % (2.0-12.0); NEUTROPHILS # (AUTO) 1.2 /CMM (1.8-8.9); NEUTROPHILS % (AUTO) 43.6 % (43.0-81.0); PLATELET COUNT (AUTO) 76 /CMM (150-450); RDW COEFFICIENT OF VARIATION 13.4 (11.5-15.0); RED BLOOD CELL COUNT(AUTO) 4.33 MIL/uL (4.5-6.0); WHITE BLOOD COUNT (AUTO) 2.7 K/uL (4.3-11.0)
[2017-04-09 07:46] VITALS: BP 120/72
[2017-04-09] MEDS: FINASTERIDE (5 MG) 5 MG TABLET GT SCH (08:19)
[2017-04-09] MEDS: VITAMINS A AND D 56.7 GM TUBE TP SCH ×4 (08:19→20:39)
[2017-04-09] MEDS: KETOCONAZOLE 2% CREAM 15 GM TUBE TP SCH (08:19)
[2017-04-09] MEDS: RIFAXIMIN 550 MG TABLET PO SCH ×2 (08:19→17:37)
[2017-04-09] MEDS: HYDROGEN PEROXIDE 480 ML BOTTLE TP SCH ×2 (08:19→20:39)
[2017-04-09] MEDS: Z GUARD REMEDY 4 OZ OINT TP SCH ×2 (08:19→20:39)
[2017-04-09] MEDS: DOXAZOSIN MESYLATE 8 MG GT SCH (08:19)
[2017-04-09] MEDS: [UNRECOGNIZED DRUG - OTHER] GT SCH (08:19)
[2017-04-09] MEDS: ASPIRIN 81 MG TAB.CHEW GT SCH (08:19)
[2017-04-09] MEDS: POTASSIUM CHLORIDE 10 MEQ GT SCH (08:19)
[2017-04-09] MEDS: CHOLECALCIFEROL (VITAMIN D 3) 400 UNIT TABLET GT SCH ×2 (08:19→20:39)
[2017-04-09 08:52] LABS: EOSINOPHILS % (MANUAL) 3 % (0-4); LYMPHOCYTES % (MANUAL) 37 % (16-48); MONOCYTES % (MANUAL) 9 % (0-11.0); NEUTROPHILS % (MANUAL) 51 (42-76)
--- NOTE | 2017-04-09 11:05 | NUR ---
Seen and examined by Dr. Edwards, aware of CBC and BMP result done 04/09/17, NNO given.
[2017-04-09] MEDS: PRUNE JUICE GT SCH (12:51)
[2017-04-09 20:06] VITALS: BP 127/83
[2017-04-09] MEDS: METHYLNALTREXONE BROMIDE 12 MG/0.6 ML VIAL SQ SCH (20:39)
[2017-04-09] MEDS: PROSOURCE / PROSTAT (PYXIS) 30 ML UDC GT SCH (20:39)
[2017-04-09] MEDS: LORATADINE 10 MG TABLET GT SCH (21:26)
[2017-04-09] MEDS: MAGNESIUM HYDROXIDE 30 ML UDC GT PRN (21:26)
[2017-04-09] MEDS: PRAVASTATIN SODIUM 20 MG TABLET GT SCH (21:26)
[2017-04-09] MEDS: LATANOPROST EYE DROP 0.005% 2.5 ML BOTTLE EACHEYE SCH (21:26)
[2017-04-10] MEDS: ALBUTEROL HALF STRENGTH 1.25 MG/3 ML VIAL.NEB NEB SCH ×4 (02:02→20:27)
[2017-04-10] MEDS: FIBERSOURCE HN 1,000 ML BOTTLE GT PRN (05:53)
[2017-04-10] MEDS: CHLORHEXIDINE GLUCONATE 15 ML UDC MM SCH ×2 (05:53→17:14)
[2017-04-10] MEDS: [UNRECOGNIZED DRUG - OTHER] GT PRN (05:53)
[2017-04-10 07:42] VITALS: BP 130/78
[2017-04-10] MEDS: ASPIRIN 81 MG TAB.CHEW GT SCH (09:18)
[2017-04-10] MEDS: DOXAZOSIN MESYLATE 8 MG GT SCH (09:19)
[2017-04-10] MEDS: POTASSIUM CHLORIDE 10 MEQ GT SCH (09:20)
[2017-04-10] MEDS: [UNRECOGNIZED DRUG - OTHER] GT SCH (09:20)
[2017-04-10] MEDS: FINASTERIDE (5 MG) 5 MG TABLET GT SCH (09:21)
[2017-04-10] MEDS: KETOCONAZOLE 2% CREAM 15 GM TUBE TP SCH (09:21)
[2017-04-10] MEDS: CHOLECALCIFEROL (VITAMIN D 3) 400 UNIT TABLET GT SCH ×2 (09:21→21:09)
[2017-04-10] MEDS: HYDROGEN PEROXIDE 480 ML BOTTLE TP SCH ×2 (09:21→21:09)
[2017-04-10] MEDS: RIFAXIMIN 550 MG TABLET PO SCH ×2 (09:22→17:14)
[2017-04-10] MEDS: VITAMINS A AND D 56.7 GM TUBE TP SCH ×4 (09:22→21:09)
[2017-04-10] MEDS: Z GUARD REMEDY 4 OZ OINT TP SCH ×2 (09:22→21:09)
--- NOTE | 2017-04-10 10:00 | NUR ---
reported patient with L 4th toe discoloration, no noted facial grimacing when touch, claims he is guarded when she is touching his feet. Advised to loosen up the shoe lace when putting his shoes. Will continue to observe and endorsed.
[2017-04-10] MEDS: PRUNE JUICE GT SCH (12:07)
[2017-04-10 20:10] VITALS: BP 131/77
[2017-04-10] MEDS: LATANOPROST EYE DROP 0.005% 2.5 ML BOTTLE EACHEYE SCH (21:09)
[2017-04-10] MEDS: LORATADINE 10 MG TABLET GT SCH (21:09)
[2017-04-10] MEDS: PRAVASTATIN SODIUM 20 MG TABLET GT SCH (21:09)
[2017-04-10] MEDS: METHYLNALTREXONE BROMIDE 12 MG/0.6 ML VIAL SQ SCH (21:09)
[2017-04-10] MEDS: PROSOURCE / PROSTAT (PYXIS) 30 ML UDC GT SCH (21:09)
[2017-04-10] MEDS: MAGNESIUM HYDROXIDE 30 ML UDC GT PRN (21:10)
[2017-04-10] MEDS: SIMETHICONE SUSP 40 MG/0.6 ML BOTTLE GT PRN (21:10)
[2017-04-11] MEDS: ALBUTEROL HALF STRENGTH 1.25 MG/3 ML VIAL.NEB NEB SCH ×4 (01:37→18:57)
[2017-04-11] MEDS: CHLORHEXIDINE GLUCONATE 15 ML UDC MM SCH ×2 (05:10→17:34)
[2017-04-11] MEDS: [UNRECOGNIZED DRUG - OTHER] GT PRN (05:10)
[2017-04-11] MEDS: FIBERSOURCE HN 1,000 ML BOTTLE GT PRN ×2 (05:10→23:58)
[2017-04-11] MEDS: DOXAZOSIN MESYLATE 8 MG GT SCH (08:04)
[2017-04-11] MEDS: [UNRECOGNIZED DRUG - OTHER] GT SCH (08:04)
[2017-04-11] MEDS: ASPIRIN 81 MG TAB.CHEW GT SCH (08:04)
[2017-04-11] MEDS: FINASTERIDE (5 MG) 5 MG TABLET GT SCH (08:05)
[2017-04-11] MEDS: CHOLECALCIFEROL (VITAMIN D 3) 400 UNIT TABLET GT SCH ×2 (08:05→21:07)
[2017-04-11] MEDS: HYDROGEN PEROXIDE 480 ML BOTTLE TP SCH ×2 (08:05→21:08)
[2017-04-11] MEDS: VITAMINS A AND D 56.7 GM TUBE TP SCH ×4 (08:05→21:09)
[2017-04-11] MEDS: RIFAXIMIN 550 MG TABLET PO SCH ×2 (08:05→17:55)
[2017-04-11] MEDS: KETOCONAZOLE 2% CREAM 15 GM TUBE TP SCH (08:05)
[2017-04-11] MEDS: Z GUARD REMEDY 4 OZ OINT TP SCH ×2 (08:05→21:08)
[2017-04-11] MEDS: POTASSIUM CHLORIDE 10 MEQ GT SCH (08:05)
[2017-04-11] MEDS: HYDROCODONE/APAP 7.5/325MG 1 EACH TABLET GT PRN ×2 (10:55→21:10)
[2017-04-11] MEDS: SIMETHICONE SUSP 40 MG/0.6 ML BOTTLE GT PRN (10:55)
[2017-04-11] MEDS: PRUNE JUICE GT SCH (11:52)
[2017-04-11 19:59] VITALS: BP 104/61
[2017-04-11] MEDS: PROSOURCE / PROSTAT (PYXIS) 30 ML UDC GT SCH (21:07)
[2017-04-11] MEDS: METHYLNALTREXONE BROMIDE 12 MG/0.6 ML VIAL SQ SCH (21:08)
[2017-04-11] MEDS: LORATADINE 10 MG TABLET GT SCH (21:09)
[2017-04-11] MEDS: LATANOPROST EYE DROP 0.005% 2.5 ML BOTTLE EACHEYE SCH (21:09)
[2017-04-11] MEDS: PRAVASTATIN SODIUM 20 MG TABLET GT SCH (21:09)
[2017-04-12] MEDS: ALBUTEROL HALF STRENGTH 1.25 MG/3 ML VIAL.NEB NEB SCH ×4 (02:01→19:35)
[2017-04-12] MEDS: HYDROCODONE/APAP 7.5/325MG 1 EACH TABLET GT PRN ×2 (03:16→09:21)
[2017-04-12] MEDS: CHLORHEXIDINE GLUCONATE 15 ML UDC MM SCH ×2 (05:21→17:37)
[2017-04-12 08:00] VITALS: BP 131/87
[2017-04-12] MEDS: ASPIRIN 81 MG TAB.CHEW GT SCH (09:14)
[2017-04-12] MEDS: DOXAZOSIN MESYLATE 8 MG GT SCH (09:15)
[2017-04-12] MEDS: FINASTERIDE (5 MG) 5 MG TABLET GT SCH (09:16)
[2017-04-12] MEDS: POTASSIUM CHLORIDE 10 MEQ GT SCH (09:16)
[2017-04-12] MEDS: [UNRECOGNIZED DRUG - OTHER] GT SCH (09:16)
[2017-04-12] MEDS: CHOLECALCIFEROL (VITAMIN D 3) 400 UNIT TABLET GT SCH ×2 (09:18→21:11)
[2017-04-12] MEDS: RIFAXIMIN 550 MG TABLET PO SCH ×2 (09:36→17:37)
--- NOTE | 2017-04-12 10:00 | NUR ---
Seen by Dr. Mejia. Pt's at bedside and she said that pt is confused, restless, hallucinating. Dr. Mejia ordered UA C&S. aware. Addendum: 04/12/17 at 1657 by ROSEANNA HARRISON RN agreed to in and out catheterization.
[2017-04-12] MEDS: VITAMINS A AND D 56.7 GM TUBE TP SCH ×4 (11:00→21:11)
[2017-04-12] MEDS: KETOCONAZOLE 2% CREAM 15 GM TUBE TP SCH (11:00)
[2017-04-12] MEDS: HYDROGEN PEROXIDE 480 ML BOTTLE TP SCH ×2 (11:00→21:11)
[2017-04-12] MEDS: Z GUARD REMEDY 4 OZ OINT TP SCH ×2 (11:00→21:11)
[2017-04-12] MEDS: PRUNE JUICE GT SCH (12:43)
--- NOTE | 2017-04-12 15:00 | NUR ---
resident has an order for collecting urine sample.but refused to do it.she want to do it tomorrow after she is here with patient.spoke to about risk and benefit about the procedure.she want to collect it only when she is present.
--- NOTE | 2017-04-12 15:52 | NUR ---
Left message to Dr. Edwards to review pt's pain medications. Pt gets [place] PRN often.
--- NOTE | 2017-04-12 17:24 | NUR ---
Dr. Edwards said he will review pt's pain medications.
[2017-04-12 20:16] VITALS: BP 126/83
[2017-04-12] MEDS: PROSOURCE / PROSTAT (PYXIS) 30 ML UDC GT SCH (21:11)
[2017-04-12] MEDS: METHYLNALTREXONE BROMIDE 12 MG/0.6 ML VIAL SQ SCH (21:11)
[2017-04-12] MEDS: PRAVASTATIN SODIUM 20 MG TABLET GT SCH (21:12)
[2017-04-12] MEDS: LORATADINE 10 MG TABLET GT SCH (21:12)
[2017-04-12] MEDS: LATANOPROST EYE DROP 0.005% 2.5 ML BOTTLE EACHEYE SCH (21:12)
[2017-04-13] MEDS: ALBUTEROL HALF STRENGTH 1.25 MG/3 ML VIAL.NEB NEB SCH ×4 (01:31→20:15)
[2017-04-13] MEDS: CHLORHEXIDINE GLUCONATE 15 ML UDC MM SCH ×2 (05:25→17:25)
[2017-04-13 07:58] VITALS: BP 122/77
[2017-04-13] MEDS: ASPIRIN 81 MG TAB.CHEW GT SCH (08:32)
[2017-04-13] MEDS: DOXAZOSIN MESYLATE 8 MG GT SCH (08:32)
[2017-04-13] MEDS: [UNRECOGNIZED DRUG - OTHER] GT SCH (08:33)
[2017-04-13] MEDS: POTASSIUM CHLORIDE 10 MEQ GT SCH (08:33)
[2017-04-13] MEDS: RIFAXIMIN 550 MG TABLET PO SCH ×2 (08:34→17:14)
[2017-04-13] MEDS: FINASTERIDE (5 MG) 5 MG TABLET GT SCH (08:34)
[2017-04-13] MEDS: CHOLECALCIFEROL (VITAMIN D 3) 400 UNIT TABLET GT SCH ×2 (08:34→21:24)
[2017-04-13] MEDS: HYDROGEN PEROXIDE 480 ML BOTTLE TP SCH ×2 (11:30→21:24)
[2017-04-13] MEDS: KETOCONAZOLE 2% CREAM 15 GM TUBE TP SCH (11:40)
[2017-04-13] MEDS: Z GUARD REMEDY 4 OZ OINT TP SCH ×2 (11:40→21:26)
[2017-04-13] MEDS: VITAMINS A AND D 56.7 GM TUBE TP SCH ×4 (11:40→21:26)
[2017-04-13 12:35] LABS: APPEARANCE,URINE SL CLOUDY (CLEAR); BILIRUBIN,URINE NEGATIVE (NEGATIVE); BLOOD, URINE TRACE Ery/uL (NEGATIVE); COLOR,URINE YELLOW (YELLOW); KETONES,URINE NEGATIVE (NEGATIVE); LEUKOCYTE ESTERASE ,URINE TRACE (NEGATIVE); NITRITE, URINE NEGATIVE (NEGATIVE); PROTEIN,URINE NEGATIVE (NEGATIVE); UGLUCOSE NEGATIVE (NEGATIVE); UROBILINOGEN,URINE 0.2 EU/dL (0.2)
[2017-04-13] MEDS: PRUNE JUICE GT SCH (12:37)
[2017-04-13 12:40] LABS: BACTERIA,URINE 2+ /HPF (None Seen); WBC,URINE 21-50 /HPF (0-3)
[2017-04-13 12:41] LABS: MUCUS,URINE Few /LPF (None Seen); URINE AMORPHOUS URATE Few /HPF (None Seen)
[2017-04-13 20:03] VITALS: BP 117/71
[2017-04-13] MEDS: METHYLNALTREXONE BROMIDE 12 MG/0.6 ML VIAL SQ SCH (21:24)
[2017-04-13] MEDS: PROSOURCE / PROSTAT (PYXIS) 30 ML UDC GT SCH (21:24)
[2017-04-13] MEDS: PRAVASTATIN SODIUM 20 MG TABLET GT SCH (21:26)
[2017-04-13] MEDS: LORATADINE 10 MG TABLET GT SCH (21:26)
[2017-04-13] MEDS: LATANOPROST EYE DROP 0.005% 2.5 ML BOTTLE EACHEYE SCH (21:26)
[2017-04-13] MEDS: FIBERSOURCE HN 1,000 ML BOTTLE GT PRN (22:33)
[2017-04-14] MEDS: ALBUTEROL HALF STRENGTH 1.25 MG/3 ML VIAL.NEB NEB SCH ×4 (01:30→19:42)
[2017-04-14] MEDS: CHLORHEXIDINE GLUCONATE 15 ML UDC MM SCH ×2 (05:35→18:22)
[2017-04-14 07:39] VITALS: BP 126/77
[2017-04-14] MEDS: DOXAZOSIN MESYLATE 8 MG GT SCH (08:01)
[2017-04-14] MEDS: FINASTERIDE (5 MG) 5 MG TABLET GT SCH (08:01)
[2017-04-14] MEDS: ASPIRIN 81 MG TAB.CHEW GT SCH (08:01)
[2017-04-14] MEDS: CHOLECALCIFEROL (VITAMIN D 3) 400 UNIT TABLET GT SCH ×2 (08:01→21:00)
[2017-04-14] MEDS: [UNRECOGNIZED DRUG - OTHER] GT SCH (08:01)
[2017-04-14] MEDS: POTASSIUM CHLORIDE 10 MEQ GT SCH (08:01)
[2017-04-14] MEDS: RIFAXIMIN 550 MG TABLET PO SCH ×2 (08:02→17:00)
[2017-04-14] MEDS: VITAMINS A AND D 56.7 GM TUBE TP SCH ×4 (09:00→21:00)
[2017-04-14] MEDS: HYDROGEN PEROXIDE 480 ML BOTTLE TP SCH ×2 (09:00→21:00)
[2017-04-14] MEDS: KETOCONAZOLE 2% CREAM 15 GM TUBE TP SCH (09:00)
[2017-04-14] MEDS: Z GUARD REMEDY 4 OZ OINT TP SCH ×2 (09:00→21:00)
[2017-04-14] MEDS: PRUNE JUICE GT SCH (12:00)
[2017-04-14] MEDS: FIBERSOURCE HN 1,000 ML BOTTLE GT PRN (19:00)
[2017-04-14 20:01] VITALS: BP 126/80
[2017-04-14] MEDS: LATANOPROST EYE DROP 0.005% 2.5 ML BOTTLE EACHEYE SCH (21:00)
[2017-04-14] MEDS: PROSOURCE / PROSTAT (PYXIS) 30 ML UDC GT SCH (21:00)
[2017-04-14] MEDS: LORATADINE 10 MG TABLET GT SCH (21:00)
[2017-04-14] MEDS: METHYLNALTREXONE BROMIDE 12 MG/0.6 ML VIAL SQ SCH (21:00)
[2017-04-14] MEDS: PRAVASTATIN SODIUM 20 MG TABLET GT SCH (21:01)
[2017-04-15] MEDS: ALBUTEROL HALF STRENGTH 1.25 MG/3 ML VIAL.NEB NEB SCH ×4 (01:38→19:40)
[2017-04-15] MEDS: CHLORHEXIDINE GLUCONATE 15 ML UDC MM SCH ×2 (05:29→17:25)
[2017-04-15] MEDS: ASPIRIN 81 MG TAB.CHEW GT SCH (08:22)
[2017-04-15] MEDS: FINASTERIDE (5 MG) 5 MG TABLET GT SCH (08:22)
[2017-04-15] MEDS: CHOLECALCIFEROL (VITAMIN D 3) 400 UNIT TABLET GT SCH ×2 (08:22→21:13)
[2017-04-15] MEDS: RIFAXIMIN 550 MG TABLET PO SCH ×2 (08:22→17:25)
[2017-04-15] MEDS: HYDROGEN PEROXIDE 480 ML BOTTLE TP SCH ×2 (08:22→21:13)
[2017-04-15] MEDS: DOXAZOSIN MESYLATE 8 MG GT SCH (08:22)
[2017-04-15] MEDS: POTASSIUM CHLORIDE 10 MEQ GT SCH (08:22)
[2017-04-15] MEDS: KETOCONAZOLE 2% CREAM 15 GM TUBE TP SCH (08:22)
[2017-04-15] MEDS: [UNRECOGNIZED DRUG - OTHER] GT SCH (08:22)
[2017-04-15] MEDS: VITAMINS A AND D 56.7 GM TUBE TP SCH ×4 (08:23→21:13)
[2017-04-15] MEDS: Z GUARD REMEDY 4 OZ OINT TP SCH ×2 (08:23→21:13)
[2017-04-15] MEDS: HYDROCODONE/APAP 7.5/325MG 1 EACH TABLET GT PRN ×2 (10:13→20:28)
[2017-04-15] MEDS: PRUNE JUICE GT SCH (12:00)
[2017-04-15 12:27] VITALS: BP 145/82
[2017-04-15] MEDS: FIBERSOURCE HN 1,000 ML BOTTLE GT PRN (17:25)
--- NOTE | 2017-04-15 17:34 | NUR ---
Seen by Dr. Edwards. Relayed urine culture result to him. Dr. Edwards said pt is asymptomatic and there is no significant change in mental status, no persistent fevers either hypothermia or hyperthermia, and no significant change in WBCs. He also mentioned that he takes a lot of time explaining to the that pt's guarding his abdomen, or agitation, or hallucinations, etc are not symptoms of a UTI. He said pt is confused and sometimes has to be prompted to void, or sometimes pt might be guarding his abdomen because he is constipated. Dr. Edwards said we need to be conscious of "antibiotic stewardship." No new order.
[2017-04-15 19:30] VITALS: BP 132/76
[2017-04-15] MEDS: PROSOURCE / PROSTAT (PYXIS) 30 ML UDC GT SCH (21:13)
[2017-04-15] MEDS: LATANOPROST EYE DROP 0.005% 2.5 ML BOTTLE EACHEYE SCH (21:13)
[2017-04-15] MEDS: LORATADINE 10 MG TABLET GT SCH (21:13)
[2017-04-15] MEDS: PRAVASTATIN SODIUM 20 MG TABLET GT SCH (21:13)
[2017-04-15] MEDS: METHYLNALTREXONE BROMIDE 12 MG/0.6 ML VIAL SQ SCH (21:13)
[2017-04-16] MEDS: ALBUTEROL HALF STRENGTH 1.25 MG/3 ML VIAL.NEB NEB SCH ×4 (02:18→20:05)
[2017-04-16] MEDS: CHLORHEXIDINE GLUCONATE 15 ML UDC MM SCH ×2 (06:17→17:29)
[2017-04-16] MEDS: MAGNESIUM HYDROXIDE 30 ML UDC GT PRN ×2 (06:50→14:52)
[2017-04-16 08:02] VITALS: BP 135/82
[2017-04-16] MEDS: POTASSIUM CHLORIDE 10 MEQ GT SCH (08:30)
[2017-04-16] MEDS: [UNRECOGNIZED DRUG - OTHER] GT SCH (08:30)
[2017-04-16] MEDS: DOXAZOSIN MESYLATE 8 MG GT SCH (08:30)
[2017-04-16] MEDS: ASPIRIN 81 MG TAB.CHEW GT SCH (08:30)
[2017-04-16] MEDS: FINASTERIDE (5 MG) 5 MG TABLET GT SCH (08:31)
[2017-04-16] MEDS: CHOLECALCIFEROL (VITAMIN D 3) 400 UNIT TABLET GT SCH ×2 (08:31→21:29)
[2017-04-16] MEDS: RIFAXIMIN 550 MG TABLET PO SCH ×2 (08:31→17:29)
[2017-04-16] MEDS: VITAMINS A AND D 56.7 GM TUBE TP SCH ×4 (08:34→21:29)
[2017-04-16] MEDS: KETOCONAZOLE 2% CREAM 15 GM TUBE TP SCH (08:34)
[2017-04-16] MEDS: Z GUARD REMEDY 4 OZ OINT TP SCH ×2 (08:34→21:29)
[2017-04-16] MEDS: HYDROGEN PEROXIDE 480 ML BOTTLE TP SCH ×2 (08:34→21:29)
[2017-04-16] MEDS: PRUNE JUICE GT SCH (12:00)
[2017-04-16] MEDS: FIBERSOURCE HN 1,000 ML BOTTLE GT PRN (14:52)
--- NOTE | 2017-04-16 18:50 | NUR ---
Seen and examined by Denise Pichardo NP, NNO given at this time.
[2017-04-16 20:11] VITALS: BP 125/83
[2017-04-16] MEDS: PROSOURCE / PROSTAT (PYXIS) 30 ML UDC GT SCH (21:29)
[2017-04-16] MEDS: METHYLNALTREXONE BROMIDE 12 MG/0.6 ML VIAL SQ SCH (21:29)
[2017-04-16] MEDS: PRAVASTATIN SODIUM 20 MG TABLET GT SCH (21:30)
[2017-04-16] MEDS: LORATADINE 10 MG TABLET GT SCH (21:30)
[2017-04-16] MEDS: LATANOPROST EYE DROP 0.005% 2.5 ML BOTTLE EACHEYE SCH (21:30)
[2017-04-17] MEDS: ALBUTEROL HALF STRENGTH 1.25 MG/3 ML VIAL.NEB NEB SCH ×4 (01:49→19:40)
[2017-04-17] MEDS: CHLORHEXIDINE GLUCONATE 15 ML UDC MM SCH ×2 (05:05→18:38)
[2017-04-17] MEDS: FIBERSOURCE HN 1,000 ML BOTTLE GT PRN (06:29)
[2017-04-17 07:59] VITALS: BP 124/76
[2017-04-17] MEDS: [UNRECOGNIZED DRUG - OTHER] GT SCH (09:00)
[2017-04-17] MEDS: ASPIRIN 81 MG TAB.CHEW GT SCH (09:57)
[2017-04-17] MEDS: POTASSIUM CHLORIDE 10 MEQ GT SCH (09:57)
[2017-04-17] MEDS: RIFAXIMIN 550 MG TABLET PO SCH ×2 (09:57→17:00)
[2017-04-17] MEDS: DOXAZOSIN MESYLATE 8 MG GT SCH (09:57)
[2017-04-17] MEDS: CHOLECALCIFEROL (VITAMIN D 3) 400 UNIT TABLET GT SCH ×2 (09:57→21:07)
[2017-04-17] MEDS: HYDROGEN PEROXIDE 480 ML BOTTLE TP SCH ×2 (09:57→21:08)
[2017-04-17] MEDS: FINASTERIDE (5 MG) 5 MG TABLET GT SCH (09:57)
[2017-04-17] MEDS: Z GUARD REMEDY 4 OZ OINT TP SCH ×2 (09:58→21:08)
[2017-04-17] MEDS: VITAMINS A AND D 56.7 GM TUBE TP SCH ×4 (09:58→21:08)
[2017-04-17] MEDS: KETOCONAZOLE 2% CREAM 15 GM TUBE TP SCH (09:58)
[2017-04-17] MEDS: PRUNE JUICE GT SCH (12:00)
--- NOTE | 2017-04-17 15:31 | NUR ---
Seen and examined by Dr. Edwards, new order given to discontinue the cold coffee every morning. Order noted and carried out.
[2017-04-17 19:30] VITALS: BP 137/74
[2017-04-17] MEDS: PROSOURCE / PROSTAT (PYXIS) 30 ML UDC GT SCH (21:07)
[2017-04-17] MEDS: METHYLNALTREXONE BROMIDE 12 MG/0.6 ML VIAL SQ SCH (21:07)
[2017-04-17] MEDS: PRAVASTATIN SODIUM 20 MG TABLET GT SCH (21:08)
[2017-04-17] MEDS: LORATADINE 10 MG TABLET GT SCH (21:08)
[2017-04-17] MEDS: HYDROCODONE/APAP 7.5/325MG 1 EACH TABLET GT PRN (21:57)
[2017-04-17] MEDS: LATANOPROST EYE DROP 0.005% 2.5 ML BOTTLE EACHEYE SCH (21:57)
[2017-04-18] MEDS: ALBUTEROL HALF STRENGTH 1.25 MG/3 ML VIAL.NEB NEB SCH ×4 (01:42→19:52)
[2017-04-18] MEDS: FIBERSOURCE HN 1,000 ML BOTTLE GT PRN (04:48)
[2017-04-18] MEDS: CHLORHEXIDINE GLUCONATE 15 ML UDC MM SCH ×2 (05:16→18:08)
[2017-04-18 07:28] LABS: CALCIUM, SERUM 8.5 mg/dL (8.5-10.1); CREATININE 0.6 mg/dL (0.6-1.3)
[2017-04-18 07:44] VITALS: BP 123/72
[2017-04-18] MEDS: ASPIRIN 81 MG TAB.CHEW GT SCH (09:36)
[2017-04-18] MEDS: RIFAXIMIN 550 MG TABLET PO SCH ×2 (09:37→17:00)
[2017-04-18] MEDS: HYDROGEN PEROXIDE 480 ML BOTTLE TP SCH ×2 (09:37→20:57)
[2017-04-18] MEDS: KETOCONAZOLE 2% CREAM 15 GM TUBE TP SCH (09:37)
[2017-04-18] MEDS: CHOLECALCIFEROL (VITAMIN D 3) 400 UNIT TABLET GT SCH ×2 (09:37→20:57)
[2017-04-18] MEDS: POTASSIUM CHLORIDE 10 MEQ GT SCH (09:37)
[2017-04-18] MEDS: Z GUARD REMEDY 4 OZ OINT TP SCH ×2 (09:37→20:58)
[2017-04-18] MEDS: FINASTERIDE (5 MG) 5 MG TABLET GT SCH (09:37)
[2017-04-18] MEDS: [UNRECOGNIZED DRUG - OTHER] GT SCH (09:37)
[2017-04-18] MEDS: DOXAZOSIN MESYLATE 8 MG GT SCH (09:37)
[2017-04-18] MEDS: VITAMINS A AND D 56.7 GM TUBE TP SCH ×4 (09:37→20:58)
[2017-04-18] MEDS: PRUNE JUICE GT SCH (12:21)
--- NOTE | 2017-04-18 13:36 | NUR ---
Seen and examined by Dr. Jerry rain.
[2017-04-18] MEDS: HYDROCODONE/APAP 7.5/325MG 1 EACH TABLET GT PRN (14:30)
[2017-04-18 19:47] VITALS: BP 129/67
[2017-04-18] MEDS: METHYLNALTREXONE BROMIDE 12 MG/0.6 ML VIAL SQ SCH (20:57)
[2017-04-18] MEDS: PROSOURCE / PROSTAT (PYXIS) 30 ML UDC GT SCH (20:57)
[2017-04-18] MEDS: LATANOPROST EYE DROP 0.005% 2.5 ML BOTTLE EACHEYE SCH (21:03)
[2017-04-18] MEDS: LORATADINE 10 MG TABLET GT SCH (21:03)
[2017-04-18] MEDS: PRAVASTATIN SODIUM 20 MG TABLET GT SCH (21:03)
[2017-04-19] MEDS: ALBUTEROL HALF STRENGTH 1.25 MG/3 ML VIAL.NEB NEB SCH ×4 (01:21→20:20)
[2017-04-19] MEDS: CHLORHEXIDINE GLUCONATE 15 ML UDC MM SCH ×2 (05:41→17:04)
[2017-04-19] MEDS: FIBERSOURCE HN 1,000 ML BOTTLE GT PRN ×2 (05:41→21:23)
[2017-04-19] MEDS: BISACODYL SUPP (10 MG) 10 MG/SUPP.RECT SUPP.RECT RC PRN (06:59)
[2017-04-19 08:00] VITALS: BP 123/58
[2017-04-19] MEDS: CHOLECALCIFEROL (VITAMIN D 3) 400 UNIT TABLET GT SCH ×2 (08:01→21:08)
[2017-04-19] MEDS: ASPIRIN 81 MG TAB.CHEW GT SCH (08:01)
[2017-04-19] MEDS: RIFAXIMIN 550 MG TABLET PO SCH ×2 (08:01→16:55)
[2017-04-19] MEDS: POTASSIUM CHLORIDE 10 MEQ GT SCH (08:01)
[2017-04-19] MEDS: DOXAZOSIN MESYLATE 8 MG GT SCH (08:01)
[2017-04-19] MEDS: KETOCONAZOLE 2% CREAM 15 GM TUBE TP SCH (08:02)
[2017-04-19] MEDS: VITAMINS A AND D 56.7 GM TUBE TP SCH ×4 (08:02→21:09)
[2017-04-19] MEDS: Z GUARD REMEDY 4 OZ OINT TP SCH ×2 (08:02→21:09)
[2017-04-19] MEDS: HYDROGEN PEROXIDE 480 ML BOTTLE TP SCH ×2 (08:02→21:08)
[2017-04-19] MEDS: FINASTERIDE (5 MG) 5 MG TABLET GT SCH (08:02)
[2017-04-19] MEDS: PRUNE JUICE GT SCH (11:03)
--- NOTE | 2017-04-19 11:03 | NUR ---
per request no prune juice today.
[2017-04-19] MEDS: HYDROCODONE/APAP 7.5/325MG 1 EACH TABLET GT PRN (14:22)
--- NOTE | 2017-04-19 15:54 | NUR ---
Pt was seen by Dr. Finn (covering for Dr. Edwards). No new order.
[2017-04-19 20:03] VITALS: BP 117/68
[2017-04-19] MEDS: PROSOURCE / PROSTAT (PYXIS) 30 ML UDC GT SCH (21:08)
[2017-04-19] MEDS: METHYLNALTREXONE BROMIDE 12 MG/0.6 ML VIAL SQ SCH (21:08)
[2017-04-19] MEDS: LATANOPROST EYE DROP 0.005% 2.5 ML BOTTLE EACHEYE SCH (21:09)
[2017-04-19] MEDS: PRAVASTATIN SODIUM 20 MG TABLET GT SCH (21:09)
[2017-04-19] MEDS: LORATADINE 10 MG TABLET GT SCH (21:09)
[2017-04-20] MEDS: ALBUTEROL HALF STRENGTH 1.25 MG/3 ML VIAL.NEB NEB SCH ×4 (02:17→20:09)
[2017-04-20] MEDS: CHLORHEXIDINE GLUCONATE 15 ML UDC MM SCH ×2 (05:37→17:46)
[2017-04-20] MEDS: HYDROCODONE/APAP 7.5/325MG 1 EACH TABLET GT PRN (05:38)
[2017-04-20] MEDS: ASPIRIN 81 MG TAB.CHEW GT SCH (08:27)
[2017-04-20] MEDS: DOXAZOSIN MESYLATE 8 MG GT SCH (08:28)
[2017-04-20] MEDS: FINASTERIDE (5 MG) 5 MG TABLET GT SCH (08:28)
[2017-04-20] MEDS: CHOLECALCIFEROL (VITAMIN D 3) 400 UNIT TABLET GT SCH ×2 (08:28→21:04)
[2017-04-20] MEDS: RIFAXIMIN 550 MG TABLET PO SCH ×2 (08:28→17:46)
[2017-04-20] MEDS: POTASSIUM CHLORIDE 10 MEQ GT SCH (08:28)
[2017-04-20] MEDS: KETOCONAZOLE 2% CREAM 15 GM TUBE TP SCH (09:00)
[2017-04-20] MEDS: VITAMINS A AND D 56.7 GM TUBE TP SCH ×4 (09:00→21:05)
[2017-04-20] MEDS: Z GUARD REMEDY 4 OZ OINT TP SCH ×2 (09:00→21:05)
[2017-04-20] MEDS: HYDROGEN PEROXIDE 480 ML BOTTLE TP SCH ×2 (09:00→21:04)
--- NOTE | 2017-04-20 10:00 | NUR ---
Seen by Dr. Mejia. Pt's at bedside and asked Dr. Mejia regarding urine culture result. Dr. Mejia explained to the that the pt does not have UTI. Dr. Mejia said ESBL in the urine is colonized.
[2017-04-20] MEDS: PRUNE JUICE GT SCH (12:33)
[2017-04-20] MEDS: METHYLNALTREXONE BROMIDE 12 MG/0.6 ML VIAL SQ SCH (21:04)
[2017-04-20] MEDS: PROSOURCE / PROSTAT (PYXIS) 30 ML UDC GT SCH (21:04)
[2017-04-20] MEDS: PRAVASTATIN SODIUM 20 MG TABLET GT SCH (21:05)
[2017-04-20] MEDS: LORATADINE 10 MG TABLET GT SCH (21:05)
[2017-04-20] MEDS: LATANOPROST EYE DROP 0.005% 2.5 ML BOTTLE EACHEYE SCH (21:05)
[2017-04-20 21:23] VITALS: BP 135/73
[2017-04-21] MEDS: ALBUTEROL HALF STRENGTH 1.25 MG/3 ML VIAL.NEB NEB SCH ×4 (01:24→19:14)
[2017-04-21] MEDS: CHLORHEXIDINE GLUCONATE 15 ML UDC MM SCH ×2 (05:08→17:03)
[2017-04-21] MEDS: FIBERSOURCE HN 1,000 ML BOTTLE GT PRN (05:47)
[2017-04-21 07:13] VITALS: BP 122/75
[2017-04-21] MEDS: DOXAZOSIN MESYLATE 8 MG GT SCH (09:17)
[2017-04-21] MEDS: CHOLECALCIFEROL (VITAMIN D 3) 400 UNIT TABLET GT SCH ×2 (09:17→21:15)
[2017-04-21] MEDS: ASPIRIN 81 MG TAB.CHEW GT SCH (09:17)
[2017-04-21] MEDS: FINASTERIDE (5 MG) 5 MG TABLET GT SCH (09:17)
[2017-04-21] MEDS: POTASSIUM CHLORIDE 10 MEQ GT SCH (09:17)
[2017-04-21] MEDS: RIFAXIMIN 550 MG TABLET PO SCH ×2 (09:18→17:03)
[2017-04-21] MEDS: KETOCONAZOLE 2% CREAM 15 GM TUBE TP SCH (09:18)
[2017-04-21] MEDS: Z GUARD REMEDY 4 OZ OINT TP SCH ×2 (09:18→21:16)
[2017-04-21] MEDS: VITAMINS A AND D 56.7 GM TUBE TP SCH ×4 (09:18→21:16)
[2017-04-21] MEDS: HYDROGEN PEROXIDE 480 ML BOTTLE TP SCH ×2 (09:18→21:16)
[2017-04-21] MEDS: PRUNE JUICE GT SCH (12:16)
[2017-04-21 20:34] VITALS: BP 125/75
[2017-04-21] MEDS: PROSOURCE / PROSTAT (PYXIS) 30 ML UDC GT SCH (21:15)
[2017-04-21] MEDS: METHYLNALTREXONE BROMIDE 12 MG/0.6 ML VIAL SQ SCH (21:15)
[2017-04-21] MEDS: LATANOPROST EYE DROP 0.005% 2.5 ML BOTTLE EACHEYE SCH (21:16)
[2017-04-21] MEDS: LORATADINE 10 MG TABLET GT SCH (21:16)
[2017-04-21] MEDS: PRAVASTATIN SODIUM 20 MG TABLET GT SCH (21:16)
[2017-04-21] MEDS: MAGNESIUM HYDROXIDE 30 ML UDC GT PRN (23:07)
[2017-04-22] MEDS: ALBUTEROL HALF STRENGTH 1.25 MG/3 ML VIAL.NEB NEB SCH ×4 (00:59→19:37)
[2017-04-22] MEDS: FIBERSOURCE HN 1,000 ML BOTTLE GT PRN (04:04)
[2017-04-22] MEDS: CHLORHEXIDINE GLUCONATE 15 ML UDC MM SCH ×2 (05:45→18:01)
[2017-04-22 07:50] VITALS: BP 121/80
[2017-04-22] MEDS: ASPIRIN 81 MG TAB.CHEW GT SCH (08:56)
[2017-04-22] MEDS: DOXAZOSIN MESYLATE 8 MG GT SCH (08:58)
[2017-04-22] MEDS: FINASTERIDE (5 MG) 5 MG TABLET GT SCH (08:58)
[2017-04-22] MEDS: POTASSIUM CHLORIDE 10 MEQ GT SCH (08:58)
[2017-04-22] MEDS: HYDROGEN PEROXIDE 480 ML BOTTLE TP SCH ×2 (09:00→20:33)
[2017-04-22] MEDS: VITAMINS A AND D 56.7 GM TUBE TP SCH ×4 (09:00→20:33)
[2017-04-22] MEDS: Z GUARD REMEDY 4 OZ OINT TP SCH ×2 (09:00→20:33)
[2017-04-22] MEDS: KETOCONAZOLE 2% CREAM 15 GM TUBE TP SCH (09:00)
[2017-04-22] MEDS: CHOLECALCIFEROL (VITAMIN D 3) 400 UNIT TABLET GT SCH ×2 (09:02→20:33)
[2017-04-22] MEDS: RIFAXIMIN 550 MG TABLET PO SCH ×2 (09:03→17:00)
--- NOTE | 2017-04-22 09:56 | NUR ---
RN NOTES REPORT GIVEN TO [facility] FOR [facility].
[2017-04-22] MEDS: PRUNE JUICE GT SCH (12:07)
[2017-04-22 19:55] VITALS: BP 137/80
[2017-04-22] MEDS: PROSOURCE / PROSTAT (PYXIS) 30 ML UDC GT SCH (20:33)
[2017-04-22] MEDS: METHYLNALTREXONE BROMIDE 12 MG/0.6 ML VIAL SQ SCH (20:33)
[2017-04-22] MEDS: LORATADINE 10 MG TABLET GT SCH (22:58)
[2017-04-22] MEDS: PRAVASTATIN SODIUM 20 MG TABLET GT SCH (22:58)
[2017-04-22] MEDS: LATANOPROST EYE DROP 0.005% 2.5 ML BOTTLE EACHEYE SCH (22:58)
[2017-04-23] MEDS: FIBERSOURCE HN 1,000 ML BOTTLE GT PRN ×2 (01:07→22:14)
[2017-04-23] MEDS: ALBUTEROL HALF STRENGTH 1.25 MG/3 ML VIAL.NEB NEB SCH ×4 (01:42→19:53)
[2017-04-23] MEDS: CHLORHEXIDINE GLUCONATE 15 ML UDC MM SCH ×2 (06:19→17:05)
[2017-04-23 07:46] VITALS: BP 126/73
[2017-04-23] MEDS: DOXAZOSIN MESYLATE 8 MG GT SCH (08:41)
[2017-04-23] MEDS: ASPIRIN 81 MG TAB.CHEW GT SCH (08:41)
[2017-04-23] MEDS: POTASSIUM CHLORIDE 10 MEQ GT SCH (08:42)
[2017-04-23] MEDS: FINASTERIDE (5 MG) 5 MG TABLET GT SCH (08:48)
[2017-04-23] MEDS: CHOLECALCIFEROL (VITAMIN D 3) 400 UNIT TABLET GT SCH ×2 (08:48→21:55)
[2017-04-23] MEDS: RIFAXIMIN 550 MG TABLET PO SCH ×2 (08:58→16:05)
[2017-04-23] MEDS: Z GUARD REMEDY 4 OZ OINT TP SCH ×2 (09:00→21:56)
[2017-04-23] MEDS: VITAMINS A AND D 56.7 GM TUBE TP SCH ×4 (09:00→21:56)
[2017-04-23] MEDS: KETOCONAZOLE 2% CREAM 15 GM TUBE TP SCH (09:00)
[2017-04-23] MEDS: HYDROGEN PEROXIDE 480 ML BOTTLE TP SCH ×2 (11:11→21:55)
[2017-04-23] MEDS: PRUNE JUICE GT SCH (11:12)
[2017-04-23] MEDS: HYDROCODONE/APAP 7.5/325MG 1 EACH TABLET GT PRN (11:13)
--- NOTE | 2017-04-23 13:49 | NUR ---
IDT meeting held, reviewed current and new medications, treatments and labs. Family unable to attend. NNO given by Dr. Mejia.
[2017-04-23] MEDS: ACETAMINOPHEN 650 MG/20 ML UDC- FOR SA PATIENTS ONLY PO PRN (16:06)
[2017-04-23 19:46] VITALS: BP 143/73
[2017-04-23] MEDS: METHYLNALTREXONE BROMIDE 12 MG/0.6 ML VIAL SQ SCH (21:55)
[2017-04-23] MEDS: PROSOURCE / PROSTAT (PYXIS) 30 ML UDC GT SCH (21:55)
[2017-04-23] MEDS: LORATADINE 10 MG TABLET GT SCH (21:56)
[2017-04-23] MEDS: PRAVASTATIN SODIUM 20 MG TABLET GT SCH (21:56)
[2017-04-23] MEDS: LATANOPROST EYE DROP 0.005% 2.5 ML BOTTLE EACHEYE SCH (21:56)
[2017-04-24] MEDS: ALBUTEROL HALF STRENGTH 1.25 MG/3 ML VIAL.NEB NEB SCH ×4 (01:28→20:01)
[2017-04-24] MEDS: CHLORHEXIDINE GLUCONATE 15 ML UDC MM SCH ×2 (05:24→17:13)
[2017-04-24 07:39] VITALS: BP 115/74
[2017-04-24] MEDS: DOXAZOSIN MESYLATE 8 MG GT SCH (08:01)
[2017-04-24] MEDS: ASPIRIN 81 MG TAB.CHEW GT SCH (08:01)
[2017-04-24] MEDS: CHOLECALCIFEROL (VITAMIN D 3) 400 UNIT TABLET GT SCH ×2 (08:02→21:43)
[2017-04-24] MEDS: HYDROGEN PEROXIDE 480 ML BOTTLE TP SCH ×2 (08:02→21:43)
[2017-04-24] MEDS: RIFAXIMIN 550 MG TABLET PO SCH ×2 (08:02→17:13)
[2017-04-24] MEDS: FINASTERIDE (5 MG) 5 MG TABLET GT SCH (08:02)
[2017-04-24] MEDS: POTASSIUM CHLORIDE 10 MEQ GT SCH (08:02)
[2017-04-24] MEDS: HYDROCODONE/APAP 7.5/325MG 1 EACH TABLET GT PRN (08:14)
[2017-04-24] MEDS: Z GUARD REMEDY 4 OZ OINT TP SCH ×2 (09:00→21:43)
[2017-04-24] MEDS: VITAMINS A AND D 56.7 GM TUBE TP SCH ×4 (09:00→21:44)
[2017-04-24] MEDS: KETOCONAZOLE 2% CREAM 15 GM TUBE TP SCH (09:00)
[2017-04-24] MEDS: PRUNE JUICE GT SCH (11:51)
--- NOTE | 2017-04-24 18:30 | NUR ---
Patient awake alert and responsive to verbal stimulation. at bedside. Noted with bleeding gum on right upper oral cavity between teeth. Oral hygiene maintained. C/O tenderness to affected area. Declined pain medication. Patient teaching provided to to be gentle on gums needed to be done due to patient's brushes patients teeth and provides oral care asides from oral care provided by nursing staff. Verbalized understanding. C/O nausea at 12:[address] patent and 150 residual. Gt feeding held. Gt feeding residual checked every hour with the same residual amount until 4 pm noted with no residual. Gt feeding formula restarted, gt flushed as ordered medication given as ordered. at bedside. RN front line supervisor notified. V/S 140/82 54 97.2 18. PA 0/10. HOB elevated aspiration precautions maintained. No further complains of nausea noted.
[2017-04-24 19:25] VITALS: BP 139/83
[2017-04-24] MEDS: PROSOURCE / PROSTAT (PYXIS) 30 ML UDC GT SCH (21:43)
[2017-04-24] MEDS: METHYLNALTREXONE BROMIDE 12 MG/0.6 ML VIAL SQ SCH (21:43)
[2017-04-24] MEDS: LATANOPROST EYE DROP 0.005% 2.5 ML BOTTLE EACHEYE SCH (21:44)
[2017-04-24] MEDS: PRAVASTATIN SODIUM 20 MG TABLET GT SCH (21:44)
[2017-04-24] MEDS: LORATADINE 10 MG TABLET GT SCH (21:44)
[2017-04-25] MEDS: FIBERSOURCE HN 1,000 ML BOTTLE GT PRN ×2 (00:58→23:41)
[2017-04-25] MEDS: ALBUTEROL HALF STRENGTH 1.25 MG/3 ML VIAL.NEB NEB SCH ×4 (01:29→19:30)
[2017-04-25] MEDS: CHLORHEXIDINE GLUCONATE 15 ML UDC MM SCH ×2 (06:09→17:10)
[2017-04-25 07:25] VITALS: BP 131/78
[2017-04-25] MEDS: ASPIRIN 81 MG TAB.CHEW GT SCH (08:18)
[2017-04-25] MEDS: RIFAXIMIN 550 MG TABLET PO SCH ×2 (08:19→17:10)
[2017-04-25] MEDS: POTASSIUM CHLORIDE 10 MEQ GT SCH (08:19)
[2017-04-25] MEDS: FINASTERIDE (5 MG) 5 MG TABLET GT SCH (08:19)
[2017-04-25] MEDS: HYDROGEN PEROXIDE 480 ML BOTTLE TP SCH ×2 (08:19→21:57)
[2017-04-25] MEDS: CHOLECALCIFEROL (VITAMIN D 3) 400 UNIT TABLET GT SCH ×2 (08:19→21:57)
[2017-04-25] MEDS: DOXAZOSIN MESYLATE 8 MG GT SCH (08:19)
[2017-04-25] MEDS: KETOCONAZOLE 2% CREAM 15 GM TUBE TP SCH (08:20)
[2017-04-25] MEDS: Z GUARD REMEDY 4 OZ OINT TP SCH ×2 (08:20→21:57)
[2017-04-25] MEDS: VITAMINS A AND D 56.7 GM TUBE TP SCH ×4 (08:20→21:57)
[2017-04-25] MEDS: PRUNE JUICE GT SCH (12:13)
[2017-04-25 19:40] VITALS: BP 127/79
[2017-04-25] MEDS: LORATADINE 10 MG TABLET GT SCH (21:57)
[2017-04-25] MEDS: PROSOURCE / PROSTAT (PYXIS) 30 ML UDC GT SCH (21:57)
[2017-04-25] MEDS: METHYLNALTREXONE BROMIDE 12 MG/0.6 ML VIAL SQ SCH (21:57)
[2017-04-25] MEDS: LATANOPROST EYE DROP 0.005% 2.5 ML BOTTLE EACHEYE SCH (21:57)
[2017-04-25] MEDS: PRAVASTATIN SODIUM 20 MG TABLET GT SCH (21:57)
[2017-04-26] MEDS: ALBUTEROL HALF STRENGTH 1.25 MG/3 ML VIAL.NEB NEB SCH ×4 (00:52→20:11)
[2017-04-26] MEDS: CHLORHEXIDINE GLUCONATE 15 ML UDC MM SCH ×2 (05:41→17:03)
[2017-04-26 08:07] VITALS: BP 130/71
[2017-04-26] MEDS: FINASTERIDE (5 MG) 5 MG TABLET GT SCH (08:15)
[2017-04-26] MEDS: POTASSIUM CHLORIDE 10 MEQ GT SCH (08:15)
[2017-04-26] MEDS: RIFAXIMIN 550 MG TABLET PO SCH ×2 (08:15→17:03)
[2017-04-26] MEDS: ASPIRIN 81 MG TAB.CHEW GT SCH (08:15)
[2017-04-26] MEDS: DOXAZOSIN MESYLATE 8 MG GT SCH (08:15)
[2017-04-26] MEDS: CHOLECALCIFEROL (VITAMIN D 3) 400 UNIT TABLET GT SCH ×2 (08:15→20:24)
[2017-04-26] MEDS: HYDROCODONE/APAP 7.5/325MG 1 EACH TABLET GT PRN (08:17)
[2017-04-26] MEDS: KETOCONAZOLE 2% CREAM 15 GM TUBE TP SCH (09:00)
[2017-04-26] MEDS: VITAMINS A AND D 56.7 GM TUBE TP SCH ×4 (09:00→20:27)
[2017-04-26] MEDS: Z GUARD REMEDY 4 OZ OINT TP SCH ×2 (09:00→20:25)
[2017-04-26] MEDS: HYDROGEN PEROXIDE 480 ML BOTTLE TP SCH ×2 (09:00→20:24)
[2017-04-26] MEDS: PRUNE JUICE GT SCH (11:31)
[2017-04-26 20:12] VITALS: BP 125/79
[2017-04-26] MEDS: PROSOURCE / PROSTAT (PYXIS) 30 ML UDC GT SCH (20:24)
[2017-04-26] MEDS: METHYLNALTREXONE BROMIDE 12 MG/0.6 ML VIAL SQ SCH (20:24)
[2017-04-26 21:22] VITALS: BP 102/56
[2017-04-26] MEDS: PRAVASTATIN SODIUM 20 MG TABLET GT SCH (22:13)
[2017-04-26] MEDS: LATANOPROST EYE DROP 0.005% 2.5 ML BOTTLE EACHEYE SCH (22:13)
[2017-04-26] MEDS: LORATADINE 10 MG TABLET GT SCH (22:13)
[2017-04-26] MEDS: FIBERSOURCE HN 1,000 ML BOTTLE GT PRN (23:37)
[2017-04-27] MEDS: ALBUTEROL HALF STRENGTH 1.25 MG/3 ML VIAL.NEB NEB SCH ×4 (01:15→19:30)
[2017-04-27] MEDS: CHLORHEXIDINE GLUCONATE 15 ML UDC MM SCH ×2 (05:39→17:02)
--- NOTE | 2017-04-27 06:00 | NUR ---
MANAGER TELEMETRY/NOTES PT BACK TO REST AFTER MORNING CARE DONE WITH THE HELPED OF GYMNASTICS COACH. REPOSITION HIM FOR COMFORT. ALL DUE MEDS GIVEN AND ALL NEEDS MET. STABLE GIOVANNI THE NIGHT. NO SIGNS OF ANY ACUTE DISTRESS OR ANY DISCOMFORT NOTED. G-TUBE FEEDING TOLERATED WELL NO ASPIRATION NOTED. KEPT HIM WARM AND COMFORTABLE AT ALL TIMES. WILL CONTINUE MONITORING.
[2017-04-27 08:07] VITALS: BP 119/77
[2017-04-27] MEDS: RIFAXIMIN 550 MG TABLET PO SCH ×2 (08:38→17:02)
[2017-04-27] MEDS: DOXAZOSIN MESYLATE 8 MG GT SCH (08:38)
[2017-04-27] MEDS: FINASTERIDE (5 MG) 5 MG TABLET GT SCH (08:38)
[2017-04-27] MEDS: ASPIRIN 81 MG TAB.CHEW GT SCH (08:38)
[2017-04-27] MEDS: POTASSIUM CHLORIDE 10 MEQ GT SCH (08:38)
[2017-04-27] MEDS: CHOLECALCIFEROL (VITAMIN D 3) 400 UNIT TABLET GT SCH ×2 (08:38→20:51)
[2017-04-27] MEDS: HYDROGEN PEROXIDE 480 ML BOTTLE TP SCH ×2 (08:38→20:51)
[2017-04-27] MEDS: Z GUARD REMEDY 4 OZ OINT TP SCH ×2 (08:39→20:51)
[2017-04-27] MEDS: KETOCONAZOLE 2% CREAM 15 GM TUBE TP SCH (08:39)
[2017-04-27] MEDS: VITAMINS A AND D 56.7 GM TUBE TP SCH ×4 (08:39→20:51)
[2017-04-27] MEDS: PRUNE JUICE GT SCH (12:50)
--- NOTE | 2017-04-27 14:00 | NUR ---
Seen by Dr. Edwards. Notified him pt had episodes of increased gastric residuals on 04/25/17. He asked if pt vomited. Pt did not vomit. No new order.
[2017-04-27 19:57] VITALS: BP 120/73
[2017-04-27] MEDS: SIMETHICONE SUSP 40 MG/0.6 ML BOTTLE GT PRN (20:51)
[2017-04-27] MEDS: PROSOURCE / PROSTAT (PYXIS) 30 ML UDC GT SCH (20:51)
[2017-04-27] MEDS: MAGNESIUM HYDROXIDE 30 ML UDC GT PRN (20:51)
[2017-04-27] MEDS: METHYLNALTREXONE BROMIDE 12 MG/0.6 ML VIAL SQ SCH (20:51)
[2017-04-27] MEDS: LATANOPROST EYE DROP 0.005% 2.5 ML BOTTLE EACHEYE SCH (21:08)
[2017-04-27] MEDS: PRAVASTATIN SODIUM 20 MG TABLET GT SCH (21:08)
[2017-04-27] MEDS: LORATADINE 10 MG TABLET GT SCH (21:08)
[2017-04-27] MEDS: FIBERSOURCE HN 1,000 ML BOTTLE GT PRN (21:10)
[2017-04-28] MEDS: ALBUTEROL HALF STRENGTH 1.25 MG/3 ML VIAL.NEB NEB SCH ×4 (01:09→19:53)
[2017-04-28] MEDS: CHLORHEXIDINE GLUCONATE 15 ML UDC MM SCH ×2 (05:30→17:06)
[2017-04-28] MEDS: BISACODYL SUPP (10 MG) 10 MG/SUPP.RECT SUPP.RECT RC PRN (05:30)
[2017-04-28 08:06] VITALS: BP 114/63
[2017-04-28] MEDS: RIFAXIMIN 550 MG TABLET PO SCH ×2 (08:12→17:06)
[2017-04-28] MEDS: FINASTERIDE (5 MG) 5 MG TABLET GT SCH (08:12)
[2017-04-28] MEDS: DOXAZOSIN MESYLATE 8 MG GT SCH (08:12)
[2017-04-28] MEDS: ASPIRIN 81 MG TAB.CHEW GT SCH (08:12)
[2017-04-28] MEDS: CHOLECALCIFEROL (VITAMIN D 3) 400 UNIT TABLET GT SCH ×2 (08:12→21:34)
[2017-04-28] MEDS: POTASSIUM CHLORIDE 10 MEQ GT SCH (08:12)
[2017-04-28] MEDS: KETOCONAZOLE 2% CREAM 15 GM TUBE TP SCH (09:00)
[2017-04-28] MEDS: VITAMINS A AND D 56.7 GM TUBE TP SCH ×4 (09:00→21:35)
[2017-04-28] MEDS: Z GUARD REMEDY 4 OZ OINT TP SCH ×2 (09:00→21:34)
[2017-04-28] MEDS: HYDROGEN PEROXIDE 480 ML BOTTLE TP SCH ×2 (12:00→21:34)
[2017-04-28] MEDS: PRUNE JUICE GT SCH (12:00)
[2017-04-28 19:41] VITALS: BP 128/75
[2017-04-28] MEDS: METHYLNALTREXONE BROMIDE 12 MG/0.6 ML VIAL SQ SCH (21:34)
[2017-04-28] MEDS: PROSOURCE / PROSTAT (PYXIS) 30 ML UDC GT SCH (21:34)
[2017-04-28] MEDS: LATANOPROST EYE DROP 0.005% 2.5 ML BOTTLE EACHEYE SCH (21:35)
[2017-04-28] MEDS: LORATADINE 10 MG TABLET GT SCH (21:35)
[2017-04-28] MEDS: PRAVASTATIN SODIUM 20 MG TABLET GT SCH (21:35)
[2017-04-28] MEDS: FIBERSOURCE HN 1,000 ML BOTTLE GT PRN (21:36)
[2017-04-29] MEDS: ALBUTEROL HALF STRENGTH 1.25 MG/3 ML VIAL.NEB NEB SCH ×4 (01:24→20:10)
[2017-04-29] MEDS: CHLORHEXIDINE GLUCONATE 15 ML UDC MM SCH ×2 (05:56→17:07)
[2017-04-29 08:10] VITALS: BP 107/66
[2017-04-29] MEDS: RIFAXIMIN 550 MG TABLET PO SCH ×2 (08:20→17:07)
[2017-04-29] MEDS: CHOLECALCIFEROL (VITAMIN D 3) 400 UNIT TABLET GT SCH ×2 (08:20→21:39)
[2017-04-29] MEDS: FINASTERIDE (5 MG) 5 MG TABLET GT SCH (08:20)
[2017-04-29] MEDS: DOXAZOSIN MESYLATE 8 MG GT SCH (08:20)
[2017-04-29] MEDS: POTASSIUM CHLORIDE 10 MEQ GT SCH (08:20)
[2017-04-29] MEDS: ASPIRIN 81 MG TAB.CHEW GT SCH (08:20)
[2017-04-29] MEDS: HYDROGEN PEROXIDE 480 ML BOTTLE TP SCH ×2 (08:20→21:39)
[2017-04-29] MEDS: VITAMINS A AND D 56.7 GM TUBE TP SCH ×4 (08:21→21:39)
[2017-04-29] MEDS: Z GUARD REMEDY 4 OZ OINT TP SCH ×2 (08:21→21:39)
[2017-04-29] MEDS: KETOCONAZOLE 2% CREAM 15 GM TUBE TP SCH (08:21)
[2017-04-29] MEDS: PRUNE JUICE GT SCH (12:21)
--- NOTE | 2017-04-29 13:34 | NUR ---
Pt c/o of nausea. Gastric residual checked, 350cc GT residual noted. No vomiting, no distress. Feeding off. Will monitor.
--- NOTE | 2017-04-29 15:00 | NUR ---
GT residual 150cc. No c/o of nausea or vomiting, no distress noted. GT feeding still held, will recheck and monitor.
--- NOTE | 2017-04-29 15:45 | NUR ---
GT residual checked, 100cc. Pt awake in bed, no distress, no vomiting or c/o nausea. Feeding turned on.
--- NOTE | 2017-04-29 16:00 | NUR ---
Seen by Dr. Edwards. Notified him pt had gastric residuals of 300 cc earlier today and 150 cc this afternoon. Pt's at bedside and told Dr. Edwards that pt was feeling nauseous. Dr. Edwards said pt sometimes complains of abdominal pain and now nausea but it is difficult to know if the pt is really feeling them or if those are the interpretations of the . Pt did not vomit and had a bowel movement last night. Also notified Dr. Edwards that pt's is concerned about the strong odor of pt's urine, that is also asking why pt is not getting surgery for his prostate. Dr. Edwards explained to the that pt is asymptomatic of UTI, pt does not retain a lot of urine when bladder scan is performed, and that pt had TURP last year.
[2017-04-29] MEDS: FIBERSOURCE HN 1,000 ML BOTTLE GT PRN (17:17)
[2017-04-29 19:34] VITALS: BP 139/78
--- NOTE | 2017-04-29 21:30 | NUR ---
Pt c/o of pain on upper and lower abdominal site area. Residual checked 50 cc noted. HOB up. Suctioned and repositioned. Quiet environment provided. at bedside. Will closely monitor.
[2017-04-29] MEDS: PROSOURCE / PROSTAT (PYXIS) 30 ML UDC GT SCH (21:39)
[2017-04-29] MEDS: LATANOPROST EYE DROP 0.005% 2.5 ML BOTTLE EACHEYE SCH (21:39)
[2017-04-29] MEDS: METHYLNALTREXONE BROMIDE 12 MG/0.6 ML VIAL SQ SCH (21:39)
[2017-04-29] MEDS: LORATADINE 10 MG TABLET GT SCH (21:39)
[2017-04-29] MEDS: PRAVASTATIN SODIUM 20 MG TABLET GT SCH (21:39)
[2017-04-29] MEDS: HYDROCODONE/APAP 7.5/325MG 1 EACH TABLET GT PRN (21:43)
--- NOTE | 2017-04-29 21:45 | NUR ---
Intervention ineffective, [place] 5/325 mg 2 tabs given via gt,with pain scale of 8/10. Will continue to monitor.
--- NOTE | 2017-04-29 22:45 | NUR ---
Pt calm and appears comfortable at this time. Pain 08/11. PRN [place] effective. GT feeding on, HOB up. at bedside.
[2017-04-30] MEDS: ALBUTEROL HALF STRENGTH 1.25 MG/3 ML VIAL.NEB NEB SCH ×4 (01:26→20:03)
[2017-04-30] MEDS: FIBERSOURCE HN 1,000 ML BOTTLE GT PRN (05:47)
[2017-04-30] MEDS: CHLORHEXIDINE GLUCONATE 15 ML UDC MM SCH ×2 (05:47→17:20)
[2017-04-30 06:38] LABS: BASOPHILS % (AUTO) 0.5 % (0.0-2.0); EOSINOPHILS # (AUTO) 0.2 /CMM (0.0-0.7); EOSINOPHILS % (AUTO) 5.8 % (0.0-6.0); HEMATOCRIT 43 % (39-51); HEMOGLOBIN 14.6 g/dL (13.5-17.5); LYMPHOCYTES # (AUTO) 1.3 /CMM (0.8-4.8); MEAN CORPUSCULAR HEMOGLOBIN 33 PG (26.0-33.0); MEAN CORPUSCULAR HGB CONC 34 g/dl (31.0-36.0); MEAN CORPUSCULAR VOLUME 97 fL (80-96); MONOCYTES # (AUTO) 0.3 /CMM (0.1-1.30); MONOCYTES % (AUTO) 8.5 % (2.0-12.0); NEUTROPHILS # (AUTO) 2.1 /CMM (1.8-8.9); NEUTROPHILS % (AUTO) 52.2 % (43.0-81.0); PLATELET COUNT (AUTO) 81 /CMM (150-450); RDW COEFFICIENT OF VARIATION 13.3 (11.5-15.0); RED BLOOD CELL COUNT(AUTO) 4.45 MIL/uL (4.5-6.0)
[2017-04-30 07:44] VITALS: BP 115/64
[2017-04-30] MEDS: CHOLECALCIFEROL (VITAMIN D 3) 400 UNIT TABLET GT SCH ×2 (08:15→21:43)
[2017-04-30] MEDS: DOXAZOSIN MESYLATE 8 MG GT SCH (08:15)
[2017-04-30] MEDS: FINASTERIDE (5 MG) 5 MG TABLET GT SCH (08:15)
[2017-04-30] MEDS: POTASSIUM CHLORIDE 10 MEQ GT SCH (08:15)
[2017-04-30] MEDS: ASPIRIN 81 MG TAB.CHEW GT SCH (08:15)
[2017-04-30] MEDS: RIFAXIMIN 550 MG TABLET PO SCH ×2 (08:16→17:20)
[2017-04-30 08:41] LABS: BAND % (MANUAL) 2 % (0.0-5.0); EOSINOPHILS % (MANUAL) 6 % (0-4); LYMPHOCYTES % (MANUAL) 27 % (16-48); MONOCYTES % (MANUAL) 10 % (0-11.0); NEUTROPHILS % (MANUAL) 54 (42-76); REACTIVE LYMPHOCYTES 1 % (0-0)
[2017-04-30] MEDS: KETOCONAZOLE 2% CREAM 15 GM TUBE TP SCH (09:00)
[2017-04-30] MEDS: VITAMINS A AND D 56.7 GM TUBE TP SCH ×4 (09:00→21:44)
[2017-04-30] MEDS: Z GUARD REMEDY 4 OZ OINT TP SCH ×2 (09:00→21:44)
--- NOTE | 2017-04-30 09:57 | NUR ---
Informed that dentist will be coming on Wednesday to see the resident around 8:30AM. She stated that it was fine and that she will be here.
[2017-04-30] MEDS: PRUNE JUICE GT SCH (12:00)
[2017-04-30] MEDS: HYDROGEN PEROXIDE 480 ML BOTTLE TP SCH ×2 (12:00→21:44)
[2017-04-30 19:37] VITALS: BP 113/68
[2017-04-30] MEDS: PROSOURCE / PROSTAT (PYXIS) 30 ML UDC GT SCH (21:43)
[2017-04-30] MEDS: METHYLNALTREXONE BROMIDE 12 MG/0.6 ML VIAL SQ SCH (21:43)
[2017-04-30] MEDS: PRAVASTATIN SODIUM 20 MG TABLET GT SCH (21:44)
[2017-04-30] MEDS: LORATADINE 10 MG TABLET GT SCH (21:44)
[2017-04-30] MEDS: LATANOPROST EYE DROP 0.005% 2.5 ML BOTTLE EACHEYE SCH (21:44)
[2017-05-01] MEDS: ALBUTEROL HALF STRENGTH 1.25 MG/3 ML VIAL.NEB NEB SCH ×4 (01:46→19:30)
[2017-05-01] MEDS: CHLORHEXIDINE GLUCONATE 15 ML UDC MM SCH ×2 (05:44→17:23)
[2017-05-01] MEDS: FIBERSOURCE HN 1,000 ML BOTTLE GT PRN (06:00)
[2017-05-01 07:14] VITALS: BP 111/75
[2017-05-01] MEDS: VITAMINS A AND D 56.7 GM TUBE TP SCH ×4 (09:00→21:59)
[2017-05-01] MEDS: FINASTERIDE (5 MG) 5 MG TABLET GT SCH (09:00)
[2017-05-01] MEDS: KETOCONAZOLE 2% CREAM 15 GM TUBE TP SCH (09:00)
[2017-05-01] MEDS: ASPIRIN 81 MG TAB.CHEW GT SCH (09:00)
[2017-05-01] MEDS: RIFAXIMIN 550 MG TABLET PO SCH ×2 (09:00→17:23)
[2017-05-01] MEDS: HYDROGEN PEROXIDE 480 ML BOTTLE TP SCH ×2 (09:00→21:59)
[2017-05-01] MEDS: POTASSIUM CHLORIDE 10 MEQ GT SCH (09:00)
[2017-05-01] MEDS: Z GUARD REMEDY 4 OZ OINT TP SCH ×2 (09:00→21:59)
[2017-05-01] MEDS: DOXAZOSIN MESYLATE 8 MG GT SCH (09:00)
[2017-05-01] MEDS: CHOLECALCIFEROL (VITAMIN D 3) 400 UNIT TABLET GT SCH ×2 (09:00→21:59)
[2017-05-01] MEDS: PRUNE JUICE GT SCH (11:29)
[2017-05-01] MEDS: HYDROCODONE/APAP 7.5/325MG 1 EACH TABLET GT PRN (11:30)
--- NOTE | 2017-05-01 11:30 | NUR ---
Pain Management: [place] 7.5/325mg two tabs given via gt for complaint of pubic area pain 10/10 not resolved by non pharmacological interventions such as assisted to bathroom, kept clean and dry. Bladder not distended. Patient was awake, assisted with all routine care, tracheostomy care, respiratory therapy, hygiene and ADL's in am, cooperative, attended dining room for activity, no distress, up in w/c watching television. Patient visited by at 10:30 am. asked who the assigned was, and upset claiming she does not want certain SENIOR MANAGING DIRECTOR's to be moved from caring from her . Spoke to Printing Machine Operator Tape Rules. Assisted as needed. with patient. brought patient to bathroom without asking nursing staff for assistance, only put bathroom call light, went to assist and noted patient very agitated attempting to stand unassisted, assisted to w/c and not allowing nursing staff to complete dressing him up grasping pubic area. C/O 10/10 pain. Patient attempting to kick and nursing staff. Told to please step out while we cared for patient. Patient was explained nursing staff will assist him. Patient requesting pain medication and to go back to bed. Assisted as needed. Safety precautions maintained. Patient teaching provided to to call for assistance at all times for safety precautions. verbalized she knows he has dementia and is confused at this time, because he has those episodes. Per sometimes patients gets upset at her or at whomever and tries to strike out in his moment of confusion. Patient in bed with HOB elevated. Kept clean and comfortable. Per patient he will rest. Gt in place patent and no residual. Call light in reach. at bedside. Refused V/s at this time.
--- NOTE | 2017-05-01 12:30 | NUR ---
Pain Reassessment: Patient is awake, no distress noted. Per patient no pain now. Respirations even and unlabored. HOB elevated. at bedside. said she was sorry of why she was upset at nursing staff for not having certain DICTATING MACHINE TYPIST assigned to her . She verbalized she is aware current DICTATING MACHINE TYPIST assigned is very good and takes good care of her , and that everybody else is. V/S 116/56 18 98.2 PA . Milk Condenser notified.
[2017-05-01 19:38] VITALS: BP 138/72
[2017-05-01] MEDS: LORATADINE 10 MG TABLET GT SCH (21:59)
[2017-05-01] MEDS: PROSOURCE / PROSTAT (PYXIS) 30 ML UDC GT SCH (21:59)
[2017-05-01] MEDS: PRAVASTATIN SODIUM 20 MG TABLET GT SCH (21:59)
[2017-05-01] MEDS: METHYLNALTREXONE BROMIDE 12 MG/0.6 ML VIAL SQ SCH (21:59)
[2017-05-01] MEDS: LATANOPROST EYE DROP 0.005% 2.5 ML BOTTLE EACHEYE SCH (21:59)
[2017-05-02] MEDS: FIBERSOURCE HN 1,000 ML BOTTLE GT PRN ×2 (02:13→23:58)
[2017-05-02] MEDS: ALBUTEROL HALF STRENGTH 1.25 MG/3 ML VIAL.NEB NEB SCH ×4 (03:04→19:43)
[2017-05-02] MEDS: CHLORHEXIDINE GLUCONATE 15 ML UDC MM SCH ×2 (06:38→17:42)
[2017-05-02 07:31] VITALS: BP 129/71
[2017-05-02] MEDS: POTASSIUM CHLORIDE 10 MEQ GT SCH (08:49)
[2017-05-02] MEDS: FINASTERIDE (5 MG) 5 MG TABLET GT SCH (08:49)
[2017-05-02] MEDS: HYDROGEN PEROXIDE 480 ML BOTTLE TP SCH ×2 (08:49→20:27)
[2017-05-02] MEDS: ASPIRIN 81 MG TAB.CHEW GT SCH (08:49)
[2017-05-02] MEDS: RIFAXIMIN 550 MG TABLET PO SCH ×2 (08:49→17:42)
[2017-05-02] MEDS: DOXAZOSIN MESYLATE 8 MG GT SCH (08:49)
[2017-05-02] MEDS: CHOLECALCIFEROL (VITAMIN D 3) 400 UNIT TABLET GT SCH ×2 (08:49→20:27)
[2017-05-02] MEDS: Z GUARD REMEDY 4 OZ OINT TP SCH ×2 (08:55→20:27)
[2017-05-02] MEDS: KETOCONAZOLE 2% CREAM 15 GM TUBE TP SCH (08:55)
[2017-05-02] MEDS: VITAMINS A AND D 56.7 GM TUBE TP SCH ×4 (08:55→20:27)
[2017-05-02] MEDS: PRUNE JUICE GT SCH (12:00)
[2017-05-02] MEDS: HYDROCODONE/APAP 7.5/325MG 1 EACH TABLET GT PRN ×2 (14:43→22:31)
[2017-05-02 20:12] VITALS: BP 102/70
[2017-05-02] MEDS: METHYLNALTREXONE BROMIDE 12 MG/0.6 ML VIAL SQ SCH (20:27)
[2017-05-02] MEDS: PROSOURCE / PROSTAT (PYXIS) 30 ML UDC GT SCH (20:27)
[2017-05-02] MEDS: LORATADINE 10 MG TABLET GT SCH (21:49)
[2017-05-02] MEDS: PRAVASTATIN SODIUM 20 MG TABLET GT SCH (21:49)
[2017-05-02] MEDS: LATANOPROST EYE DROP 0.005% 2.5 ML BOTTLE EACHEYE SCH (21:50)
--- NOTE | 2017-05-02 22:31 | NUR ---
2230 Pain Management: [place] 7.5/325mg two tabs given via gt for complaint of headache 03/11 not resolved by non pharmacological interventions such repositioning and suctioning his secretions. Daughter at bedside also requested for pain medication for his father. 2229 Patients appears starting to calm down, secretion suctioned. no c/o pain or distress. Daughter at bedside. kept clean dry and comfortable. 2299 Patient sleeping comfortably in bed, daughter left the facility.
[2017-05-03] MEDS: ALBUTEROL HALF STRENGTH 1.25 MG/3 ML VIAL.NEB NEB SCH ×4 (01:30→20:07)
[2017-05-03] MEDS: MAGNESIUM HYDROXIDE 30 ML UDC GT PRN (04:31)
[2017-05-03] MEDS: CHLORHEXIDINE GLUCONATE 15 ML UDC MM SCH ×2 (06:41→17:36)
[2017-05-03] MEDS: BISACODYL SUPP (10 MG) 10 MG/SUPP.RECT SUPP.RECT RC PRN (06:41)
[2017-05-03 07:48] VITALS: BP 102/64
[2017-05-03] MEDS: HYDROGEN PEROXIDE 480 ML BOTTLE TP SCH ×2 (09:10→21:00)
[2017-05-03] MEDS: POTASSIUM CHLORIDE 10 MEQ GT SCH (09:10)
[2017-05-03] MEDS: FINASTERIDE (5 MG) 5 MG TABLET GT SCH (09:10)
[2017-05-03] MEDS: ASPIRIN 81 MG TAB.CHEW GT SCH (09:10)
[2017-05-03] MEDS: DOXAZOSIN MESYLATE 8 MG GT SCH (09:10)
[2017-05-03] MEDS: RIFAXIMIN 550 MG TABLET PO SCH ×2 (09:10→17:36)
[2017-05-03] MEDS: CHOLECALCIFEROL (VITAMIN D 3) 400 UNIT TABLET GT SCH ×2 (09:10→21:00)
[2017-05-03] MEDS: KETOCONAZOLE 2% CREAM 15 GM TUBE TP SCH (09:14)
[2017-05-03] MEDS: Z GUARD REMEDY 4 OZ OINT TP SCH ×2 (09:15→21:00)
[2017-05-03] MEDS: VITAMINS A AND D 56.7 GM TUBE TP SCH ×4 (09:15→21:00)
--- NOTE | 2017-05-03 10:10 | NUR ---
Resident's came into the socially responsible investment adviser's office earlier and stated that she has been waiting since 8am for the dentist. SW reminded her that dentist would be arriving around 8:30AM and stated no and that she has been waiting since 8am. stated that she wanted her to be seen first and socially responsible investment adviser informed her that she notified the dentist that would be there for the exam and that he would be seeing those with families last since those take the longest. was rude in the way she communicated with socially responsible investment adviser, even when co-worker was present, and walked out of the room after stating that next time, to schedule the resident to be seen first. Once dentist was done with all of his exams, he notified the socially responsible investment adviser that he went into the resident's room for the exam and was there. He stated that was upset and stated that stated his gums were bleeding and that he was getting ready to go take a shower. She stated to him that resident will not be seen today and dentist did not complete dental exam. Resident was also seen by Dr. Walter on 03/26/2017 for concern about bleeding gums/irritation to which he explained to her that it was due to resident's jaw alignment, poor hygiene, and his tooth. Per dentist, he can come back in a few weeks to do the exam. Addendum: 05/03/17 at 1058 by JERRY VALDIVIA subacute commercial manager, subacute director, CNO, and charge nurse aware.
[2017-05-03] MEDS: PRUNE JUICE GT SCH (12:00)
--- NOTE | 2017-05-03 13:00 | NUR ---
Seen and examined by ISABELA Pichardo with no new orders.
[2017-05-03 19:59] VITALS: BP 126/76
[2017-05-03] MEDS: PROSOURCE / PROSTAT (PYXIS) 30 ML UDC GT SCH (21:00)
[2017-05-03] MEDS: METHYLNALTREXONE BROMIDE 12 MG/0.6 ML VIAL SQ SCH (21:00)
[2017-05-03] MEDS: PRAVASTATIN SODIUM 20 MG TABLET GT SCH (22:00)
[2017-05-03] MEDS: LORATADINE 10 MG TABLET GT SCH (22:00)
[2017-05-03] MEDS: LATANOPROST EYE DROP 0.005% 2.5 ML BOTTLE EACHEYE SCH (22:00)
[2017-05-04] MEDS: FIBERSOURCE HN 1,000 ML BOTTLE GT PRN ×2 (00:51→21:40)
[2017-05-04] MEDS: ALBUTEROL HALF STRENGTH 1.25 MG/3 ML VIAL.NEB NEB SCH ×4 (02:01→19:34)
[2017-05-04] MEDS: CHLORHEXIDINE GLUCONATE 15 ML UDC MM SCH ×2 (06:09→18:05)
[2017-05-04 07:38] VITALS: BP 116/80
[2017-05-04] MEDS: ASPIRIN 81 MG TAB.CHEW GT SCH (08:58)
[2017-05-04] MEDS: FINASTERIDE (5 MG) 5 MG TABLET GT SCH (08:58)
[2017-05-04] MEDS: CHOLECALCIFEROL (VITAMIN D 3) 400 UNIT TABLET GT SCH ×2 (08:58→21:38)
[2017-05-04] MEDS: POTASSIUM CHLORIDE 10 MEQ GT SCH (08:58)
[2017-05-04] MEDS: DOXAZOSIN MESYLATE 8 MG GT SCH (08:58)
[2017-05-04] MEDS: RIFAXIMIN 550 MG TABLET PO SCH ×2 (08:59→17:00)
[2017-05-04] MEDS: Z GUARD REMEDY 4 OZ OINT TP SCH ×2 (08:59→21:39)
[2017-05-04] MEDS: HYDROGEN PEROXIDE 480 ML BOTTLE TP SCH ×2 (08:59→21:38)
[2017-05-04] MEDS: VITAMINS A AND D 56.7 GM TUBE TP SCH ×4 (08:59→21:39)
[2017-05-04] MEDS: KETOCONAZOLE 2% CREAM 15 GM TUBE TP SCH (08:59)
--- NOTE | 2017-05-04 10:09 | NUR ---
Seen and examined by Dr. Mejia, at the bedside, no concern at this time. NNO given.
[2017-05-04] MEDS: PRUNE JUICE GT SCH (12:00)
[2017-05-04 19:51] VITALS: BP 108/69
[2017-05-04] MEDS: PROSOURCE / PROSTAT (PYXIS) 30 ML UDC GT SCH (21:38)
[2017-05-04] MEDS: METHYLNALTREXONE BROMIDE 12 MG/0.6 ML VIAL SQ SCH (21:38)
[2017-05-04] MEDS: LORATADINE 10 MG TABLET GT SCH (21:39)
[2017-05-04] MEDS: PRAVASTATIN SODIUM 20 MG TABLET GT SCH (21:39)
[2017-05-04] MEDS: LATANOPROST EYE DROP 0.005% 2.5 ML BOTTLE EACHEYE SCH (21:39)
[2017-05-05] MEDS: ALBUTEROL HALF STRENGTH 1.25 MG/3 ML VIAL.NEB NEB SCH ×4 (01:15→19:29)
[2017-05-05] MEDS: CHLORHEXIDINE GLUCONATE 15 ML UDC MM SCH ×2 (05:22→17:47)
[2017-05-05 08:27] VITALS: BP 125/78
[2017-05-05] MEDS: RIFAXIMIN 550 MG TABLET PO SCH ×2 (09:00→17:47)
[2017-05-05] MEDS: HYDROGEN PEROXIDE 480 ML BOTTLE TP SCH ×2 (09:00→21:55)
[2017-05-05] MEDS: Z GUARD REMEDY 4 OZ OINT TP SCH ×2 (09:00→21:55)
[2017-05-05] MEDS: KETOCONAZOLE 2% CREAM 15 GM TUBE TP SCH (09:00)
[2017-05-05] MEDS: FINASTERIDE (5 MG) 5 MG TABLET GT SCH (09:00)
[2017-05-05] MEDS: DOXAZOSIN MESYLATE 8 MG GT SCH (09:00)
[2017-05-05] MEDS: CHOLECALCIFEROL (VITAMIN D 3) 400 UNIT TABLET GT SCH ×2 (09:00→21:55)
[2017-05-05] MEDS: ASPIRIN 81 MG TAB.CHEW GT SCH (09:00)
[2017-05-05] MEDS: POTASSIUM CHLORIDE 10 MEQ GT SCH (09:00)
[2017-05-05] MEDS: VITAMINS A AND D 56.7 GM TUBE TP SCH ×4 (09:00→21:56)
--- NOTE | 2017-05-05 10:30 | NUR ---
Resident's saw the neonatal social worker walking in the hallway. She stated that for next time the dentist comes, to please give her a more accurate time of when he will be able to see her . SW informed her that this is a bit difficult because some cleanings take longer than others but that she can inform the dentist of her request. She was much nicer in her approach with this SW.
--- NOTE | 2017-05-05 11:49 | NUR ---
Resident's attended support group meeting. Subacute manager social services Angela also attended the meeting to listen to their concerns. Resident's stated that she would like for rotation schedule to be consistent and would like for two people to always assist the resident when showering. Subacute manager social services noted that she did speak to the staff and also acknowledged that two people have been showering her and that it has gotten a lot better. Subacute manager social services stated that one person can prepare the resident for his shower but that two people will always be in the shower room with her. Resident's stated that she would like to not remind the staff about the two person assist and wants them to be more prepared as to what two people will shower her . Concerns were noted and addressed by subacute manager social services.
[2017-05-05] MEDS: PRUNE JUICE GT SCH (12:32)
--- NOTE | 2017-05-05 14:30 | NUR ---
Dr. Edwards seen and examined resident, he agreed to give flu vaccine to resident, however he prefers patient to receive the high potency. Dr. Edwards stated that if the hospital does not provide this type he will give it to the patient through his office. Resident's consented to administration of the vaccine.
[2017-05-05 20:04] VITALS: BP 122/76
[2017-05-05] MEDS: FIBERSOURCE HN 1,000 ML BOTTLE GT PRN (20:48)
[2017-05-05] MEDS: PROSOURCE / PROSTAT (PYXIS) 30 ML UDC GT SCH (21:55)
[2017-05-05] MEDS: METHYLNALTREXONE BROMIDE 12 MG/0.6 ML VIAL SQ SCH (21:55)
[2017-05-05] MEDS: PRAVASTATIN SODIUM 20 MG TABLET GT SCH (21:56)
[2017-05-05] MEDS: LORATADINE 10 MG TABLET GT SCH (21:56)
[2017-05-05] MEDS: LATANOPROST EYE DROP 0.005% 2.5 ML BOTTLE EACHEYE SCH (21:56)
[2017-05-05] MEDS: HYDROCODONE/APAP 7.5/325MG 1 EACH TABLET GT PRN (22:33)
--- NOTE | 2017-05-05 22:35 | NUR ---
COMB CAPPER Pt agitated and restless with c/o of lower abdominal area, 9/10 pain scale. at bedside comforting pt, still in pain. PRN [place] 2 tabs of 7.5/325 mg given via gt, no residual noted. Continue providing comfort measure and will closely monitor.
--- NOTE | 2017-05-05 22:40 | NUR ---
RT Was called to room 268-2, pt removed trach. Pt at bedside. Trach reinserted w/ no issue. BS bilateral. sx for small mod amt.
--- NOTE | 2017-05-05 23:35 | NUR ---
VIBRATORY PILE DRIVER pT calm and quiet at this time. PRN pain med effective. at bedside providing comfort. Will continue to monitor.
[2017-05-06] MEDS: ALBUTEROL HALF STRENGTH 1.25 MG/3 ML VIAL.NEB NEB SCH ×4 (01:09→19:42)
[2017-05-06] MEDS: CHLORHEXIDINE GLUCONATE 15 ML UDC MM SCH ×2 (06:05→17:42)
[2017-05-06 07:29] VITALS: BP 117/74
[2017-05-06] MEDS: HYDROGEN PEROXIDE 480 ML BOTTLE TP SCH ×2 (08:50→21:08)
[2017-05-06] MEDS: ASPIRIN 81 MG TAB.CHEW GT SCH (08:50)
[2017-05-06] MEDS: KETOCONAZOLE 2% CREAM 15 GM TUBE TP SCH (08:50)
[2017-05-06] MEDS: CHOLECALCIFEROL (VITAMIN D 3) 400 UNIT TABLET GT SCH ×2 (08:50→21:07)
[2017-05-06] MEDS: RIFAXIMIN 550 MG TABLET PO SCH ×2 (08:50→17:42)
[2017-05-06] MEDS: DOXAZOSIN MESYLATE 8 MG GT SCH (08:50)
[2017-05-06] MEDS: FINASTERIDE (5 MG) 5 MG TABLET GT SCH (08:50)
[2017-05-06] MEDS: POTASSIUM CHLORIDE 10 MEQ GT SCH (08:50)
[2017-05-06] MEDS: Z GUARD REMEDY 4 OZ OINT TP SCH ×2 (08:51→21:08)
[2017-05-06] MEDS: VITAMINS A AND D 56.7 GM TUBE TP SCH ×4 (08:51→21:08)
[2017-05-06] MEDS: PRUNE JUICE GT SCH (12:44)
[2017-05-06] MEDS: HYDROCODONE/APAP 7.5/325MG 1 EACH TABLET GT PRN ×2 (13:44→22:07)
[2017-05-06] MEDS: MAGNESIUM HYDROXIDE 30 ML UDC GT PRN (19:00)
--- NOTE | 2017-05-06 20:02 | NUR ---
Resident c/o abdominal pain 5/10, non pharmacological measures not effective, PRN [place] 7.5/325 mg 2 tabs given as ordered, effective post one hour, resident sleeping and relaxed.
[2017-05-06] MEDS: METHYLNALTREXONE BROMIDE 12 MG/0.6 ML VIAL SQ SCH (21:07)
[2017-05-06] MEDS: PROSOURCE / PROSTAT (PYXIS) 30 ML UDC GT SCH (21:07)
[2017-05-06] MEDS: LATANOPROST EYE DROP 0.005% 2.5 ML BOTTLE EACHEYE SCH (21:08)
[2017-05-06] MEDS: LORATADINE 10 MG TABLET GT SCH (21:08)
[2017-05-06] MEDS: PRAVASTATIN SODIUM 20 MG TABLET GT SCH (21:08)
[2017-05-06] MEDS: FIBERSOURCE HN 1,000 ML BOTTLE GT PRN (21:20)
--- NOTE | 2017-05-06 22:07 | NUR ---
Resident c/o headache 03/11, non pharmacological measures not effective, PRN [place] 7.5/325 mg 2 tabs given as ordered, comfort measures rendered by suctioning and repositioning the patient. effective post one hour, resident sleeping and relaxed. Will cont to monitor.
[2017-05-07] MEDS: ALBUTEROL HALF STRENGTH 1.25 MG/3 ML VIAL.NEB NEB SCH ×4 (02:23→20:04)
[2017-05-07] MEDS: CHLORHEXIDINE GLUCONATE 15 ML UDC MM SCH ×2 (05:10→17:34)
[2017-05-07 08:20] VITALS: BP 99/71
[2017-05-07] MEDS: ASPIRIN 81 MG TAB.CHEW GT SCH (08:53)
[2017-05-07] MEDS: DOXAZOSIN MESYLATE 8 MG GT SCH (08:53)
[2017-05-07] MEDS: CHOLECALCIFEROL (VITAMIN D 3) 400 UNIT TABLET GT SCH ×2 (08:53→21:47)
[2017-05-07] MEDS: RIFAXIMIN 550 MG TABLET PO SCH ×2 (08:53→17:34)
[2017-05-07] MEDS: POTASSIUM CHLORIDE 10 MEQ GT SCH (08:53)
[2017-05-07] MEDS: HYDROGEN PEROXIDE 480 ML BOTTLE TP SCH ×2 (08:53→21:47)
[2017-05-07] MEDS: FINASTERIDE (5 MG) 5 MG TABLET GT SCH (08:53)
[2017-05-07] MEDS: VITAMINS A AND D 56.7 GM TUBE TP SCH ×4 (08:54→21:47)
[2017-05-07] MEDS: Z GUARD REMEDY 4 OZ OINT TP SCH ×2 (08:54→21:47)
[2017-05-07] MEDS: KETOCONAZOLE 2% CREAM 15 GM TUBE TP SCH (08:54)
[2017-05-07] MEDS: BISACODYL SUPP (10 MG) 10 MG/SUPP.RECT SUPP.RECT RC PRN (09:07)
[2017-05-07] MEDS: PRUNE JUICE GT SCH (12:00)
[2017-05-07 20:30] VITALS: BP 126/87
[2017-05-07] MEDS: FIBERSOURCE HN 1,000 ML BOTTLE GT PRN (21:03)
[2017-05-07] MEDS: LORATADINE 10 MG TABLET GT SCH (21:47)
[2017-05-07] MEDS: PROSOURCE / PROSTAT (PYXIS) 30 ML UDC GT SCH (21:47)
[2017-05-07] MEDS: METHYLNALTREXONE BROMIDE 12 MG/0.6 ML VIAL SQ SCH (21:47)
[2017-05-07] MEDS: LATANOPROST EYE DROP 0.005% 2.5 ML BOTTLE EACHEYE SCH (21:47)
[2017-05-07] MEDS: PRAVASTATIN SODIUM 20 MG TABLET GT SCH (21:47)
[2017-05-08] MEDS: ALBUTEROL HALF STRENGTH 1.25 MG/3 ML VIAL.NEB NEB SCH ×4 (02:27→20:12)
[2017-05-08] MEDS: CHLORHEXIDINE GLUCONATE 15 ML UDC MM SCH ×2 (06:11→17:44)
[2017-05-08 07:27] VITALS: BP 114/74
[2017-05-08] MEDS: HYDROGEN PEROXIDE 480 ML BOTTLE TP SCH ×2 (08:13→20:23)
[2017-05-08] MEDS: ASPIRIN 81 MG TAB.CHEW GT SCH (08:13)
[2017-05-08] MEDS: CHOLECALCIFEROL (VITAMIN D 3) 400 UNIT TABLET GT SCH ×2 (08:13→20:23)
[2017-05-08] MEDS: RIFAXIMIN 550 MG TABLET PO SCH ×2 (08:13→17:01)
[2017-05-08] MEDS: FINASTERIDE (5 MG) 5 MG TABLET GT SCH (08:13)
[2017-05-08] MEDS: POTASSIUM CHLORIDE 10 MEQ GT SCH (08:13)
[2017-05-08] MEDS: DOXAZOSIN MESYLATE 8 MG GT SCH (08:13)
[2017-05-08] MEDS: VITAMINS A AND D 56.7 GM TUBE TP SCH ×4 (08:14→20:24)
[2017-05-08] MEDS: Z GUARD REMEDY 4 OZ OINT TP SCH ×2 (08:14→20:24)
[2017-05-08] MEDS: KETOCONAZOLE 2% CREAM 15 GM TUBE TP SCH (08:14)
[2017-05-08] MEDS: PRUNE JUICE GT SCH (12:00)
[2017-05-08] MEDS: HYDROCODONE/APAP 7.5/325MG 1 EACH TABLET GT PRN (14:28)
[2017-05-08 19:58] VITALS: BP 130/76
[2017-05-08] MEDS: METHYLNALTREXONE BROMIDE 12 MG/0.6 ML VIAL SQ SCH (20:23)
[2017-05-08] MEDS: PROSOURCE / PROSTAT (PYXIS) 30 ML UDC GT SCH (20:23)
[2017-05-08] MEDS: FIBERSOURCE HN 1,000 ML BOTTLE GT PRN (21:04)
[2017-05-08] MEDS: LORATADINE 10 MG TABLET GT SCH (21:04)
[2017-05-08] MEDS: LATANOPROST EYE DROP 0.005% 2.5 ML BOTTLE EACHEYE SCH (21:04)
[2017-05-08] MEDS: PRAVASTATIN SODIUM 20 MG TABLET GT SCH (21:05)
[2017-05-09] MEDS: ALBUTEROL HALF STRENGTH 1.25 MG/3 ML VIAL.NEB NEB SCH ×4 (01:37→19:30)
[2017-05-09] MEDS: CHLORHEXIDINE GLUCONATE 15 ML UDC MM SCH ×2 (05:33→17:34)
[2017-05-09 08:00] VITALS: BP 141/88
[2017-05-09 08:15] VITALS: BP 137/79
[2017-05-09] MEDS: DOXAZOSIN MESYLATE 8 MG GT SCH (08:43)
[2017-05-09] MEDS: HYDROGEN PEROXIDE 480 ML BOTTLE TP SCH ×2 (08:43→21:48)
[2017-05-09] MEDS: KETOCONAZOLE 2% CREAM 15 GM TUBE TP SCH (08:43)
[2017-05-09] MEDS: POTASSIUM CHLORIDE 10 MEQ GT SCH (08:43)
[2017-05-09] MEDS: VITAMINS A AND D 56.7 GM TUBE TP SCH ×4 (08:43→21:48)
[2017-05-09] MEDS: CHOLECALCIFEROL (VITAMIN D 3) 400 UNIT TABLET GT SCH ×2 (08:43→21:47)
[2017-05-09] MEDS: FINASTERIDE (5 MG) 5 MG TABLET GT SCH (08:43)
[2017-05-09] MEDS: Z GUARD REMEDY 4 OZ OINT TP SCH ×2 (08:43→21:48)
[2017-05-09] MEDS: ASPIRIN 81 MG TAB.CHEW GT SCH (08:43)
[2017-05-09] MEDS: RIFAXIMIN 550 MG TABLET PO SCH ×2 (08:43→16:36)
[2017-05-09] MEDS: PRUNE JUICE GT SCH (12:20)
[2017-05-09] MEDS: FIBERSOURCE HN 1,000 ML BOTTLE GT PRN (17:36)
[2017-05-09] MEDS: HYDROCODONE/APAP 7.5/325MG 1 EACH TABLET GT PRN (18:50)
[2017-05-09] MEDS: PROSOURCE / PROSTAT (PYXIS) 30 ML UDC GT SCH (21:44)
[2017-05-09] MEDS: LATANOPROST EYE DROP 0.005% 2.5 ML BOTTLE EACHEYE SCH (21:48)
[2017-05-09] MEDS: LORATADINE 10 MG TABLET GT SCH (21:48)
[2017-05-09] MEDS: METHYLNALTREXONE BROMIDE 12 MG/0.6 ML VIAL SQ SCH (21:48)
[2017-05-09] MEDS: PRAVASTATIN SODIUM 20 MG TABLET GT SCH (21:49)
[2017-05-10] MEDS: ALBUTEROL HALF STRENGTH 1.25 MG/3 ML VIAL.NEB NEB SCH ×4 (01:52→20:29)
[2017-05-10] MEDS: CHLORHEXIDINE GLUCONATE 15 ML UDC MM SCH ×2 (06:15→18:00)
[2017-05-10] MEDS: ASPIRIN 81 MG TAB.CHEW GT SCH (08:33)
[2017-05-10] MEDS: POTASSIUM CHLORIDE 10 MEQ GT SCH (08:33)
[2017-05-10] MEDS: DOXAZOSIN MESYLATE 8 MG GT SCH (08:33)
[2017-05-10] MEDS: RIFAXIMIN 550 MG TABLET PO SCH ×2 (08:33→17:08)
[2017-05-10] MEDS: CHOLECALCIFEROL (VITAMIN D 3) 400 UNIT TABLET GT SCH ×2 (08:33→21:03)
[2017-05-10] MEDS: FINASTERIDE (5 MG) 5 MG TABLET GT SCH (08:33)
[2017-05-10] MEDS: KETOCONAZOLE 2% CREAM 15 GM TUBE TP SCH (09:00)
[2017-05-10] MEDS: VITAMINS A AND D 56.7 GM TUBE TP SCH ×4 (09:00→21:05)
[2017-05-10] MEDS: Z GUARD REMEDY 4 OZ OINT TP SCH ×2 (09:00→21:05)
[2017-05-10] MEDS: HYDROGEN PEROXIDE 480 ML BOTTLE TP SCH ×2 (09:00→21:05)
[2017-05-10] MEDS: PRUNE JUICE GT SCH (12:00)
[2017-05-10] MEDS: FIBERSOURCE HN 1,000 ML BOTTLE GT PRN (15:39)
[2017-05-10 20:00] VITALS: BP 132/74
[2017-05-10] MEDS: PROSOURCE / PROSTAT (PYXIS) 30 ML UDC GT SCH (21:02)
[2017-05-10] MEDS: METHYLNALTREXONE BROMIDE 12 MG/0.6 ML VIAL SQ SCH (21:05)
[2017-05-10] MEDS: PRAVASTATIN SODIUM 20 MG TABLET GT SCH (21:16)
[2017-05-10] MEDS: LATANOPROST EYE DROP 0.005% 2.5 ML BOTTLE EACHEYE SCH (21:16)
[2017-05-10] MEDS: LORATADINE 10 MG TABLET GT SCH (21:16)
[2017-05-11] MEDS: ALBUTEROL HALF STRENGTH 1.25 MG/3 ML VIAL.NEB NEB SCH ×4 (01:39→19:30)
[2017-05-11] MEDS: CHLORHEXIDINE GLUCONATE 15 ML UDC MM SCH ×2 (06:19→18:00)
[2017-05-11] MEDS: RIFAXIMIN 550 MG TABLET PO SCH ×2 (08:30→17:00)
[2017-05-11] MEDS: POTASSIUM CHLORIDE 10 MEQ GT SCH (08:30)
[2017-05-11] MEDS: CHOLECALCIFEROL (VITAMIN D 3) 400 UNIT TABLET GT SCH ×2 (08:30→21:05)
[2017-05-11] MEDS: DOXAZOSIN MESYLATE 8 MG GT SCH (08:30)
[2017-05-11] MEDS: FINASTERIDE (5 MG) 5 MG TABLET GT SCH (08:30)
[2017-05-11] MEDS: ASPIRIN 81 MG TAB.CHEW GT SCH (08:30)
[2017-05-11] MEDS: HYDROGEN PEROXIDE 480 ML BOTTLE TP SCH ×2 (08:30→21:07)
[2017-05-11] MEDS: VITAMINS A AND D 56.7 GM TUBE TP SCH ×4 (09:00→21:07)
[2017-05-11] MEDS: KETOCONAZOLE 2% CREAM 15 GM TUBE TP SCH (09:00)
[2017-05-11] MEDS: Z GUARD REMEDY 4 OZ OINT TP SCH ×2 (09:00→21:07)
[2017-05-11] MEDS: HYDROCODONE/APAP 7.5/325MG 1 EACH TABLET GT PRN (11:30)
[2017-05-11] MEDS: PRUNE JUICE GT SCH (12:45)
[2017-05-11] MEDS: FIBERSOURCE HN 1,000 ML BOTTLE GT PRN (13:23)
[2017-05-11 20:10] VITALS: BP 128/82
[2017-05-11] MEDS: PROSOURCE / PROSTAT (PYXIS) 30 ML UDC GT SCH (21:05)
[2017-05-11] MEDS: METHYLNALTREXONE BROMIDE 12 MG/0.6 ML VIAL SQ SCH (21:06)
[2017-05-11] MEDS: LORATADINE 10 MG TABLET GT SCH (21:06)
[2017-05-11] MEDS: LATANOPROST EYE DROP 0.005% 2.5 ML BOTTLE EACHEYE SCH (21:08)
[2017-05-11] MEDS: PRAVASTATIN SODIUM 20 MG TABLET GT SCH (21:09)
[2017-05-12] MEDS: ALBUTEROL HALF STRENGTH 1.25 MG/3 ML VIAL.NEB NEB SCH ×4 (01:35→19:43)
[2017-05-12] MEDS: FIBERSOURCE HN 1,000 ML BOTTLE GT PRN (06:09)
[2017-05-12] MEDS: CHLORHEXIDINE GLUCONATE 15 ML UDC MM SCH ×2 (06:09→18:06)
[2017-05-12 07:38] VITALS: BP 129/76
[2017-05-12] MEDS: RIFAXIMIN 550 MG TABLET PO SCH ×2 (08:55→16:42)
[2017-05-12] MEDS: ASPIRIN 81 MG TAB.CHEW GT SCH (08:55)
[2017-05-12] MEDS: KETOCONAZOLE 2% CREAM 15 GM TUBE TP SCH (08:55)
[2017-05-12] MEDS: FINASTERIDE (5 MG) 5 MG TABLET GT SCH (08:55)
[2017-05-12] MEDS: DOXAZOSIN MESYLATE 8 MG GT SCH (08:55)
[2017-05-12] MEDS: Z GUARD REMEDY 4 OZ OINT TP SCH ×2 (08:55→21:06)
[2017-05-12] MEDS: HYDROGEN PEROXIDE 480 ML BOTTLE TP SCH ×2 (08:55→21:06)
[2017-05-12] MEDS: VITAMINS A AND D 56.7 GM TUBE TP SCH ×4 (08:55→21:06)
[2017-05-12] MEDS: CHOLECALCIFEROL (VITAMIN D 3) 400 UNIT TABLET GT SCH ×2 (08:55→21:06)
[2017-05-12] MEDS: POTASSIUM CHLORIDE 10 MEQ GT SCH (08:55)
[2017-05-12] MEDS: PRUNE JUICE GT SCH (12:00)
[2017-05-12] MEDS: MAGNESIUM HYDROXIDE 30 ML UDC GT PRN (13:02)
[2017-05-12] MEDS: HYDROCODONE/APAP 7.5/325MG 1 EACH TABLET GT PRN ×2 (13:03→18:31)
[2017-05-12] MEDS: ACETAMINOPHEN 650 MG/20 ML UDC- FOR SA PATIENTS ONLY PO PRN (16:44)
[2017-05-12 19:57] VITALS: BP 139/82
[2017-05-12] MEDS: BISACODYL SUPP (10 MG) 10 MG/SUPP.RECT SUPP.RECT RC PRN (20:31)
[2017-05-12] MEDS: PRAVASTATIN SODIUM 20 MG TABLET GT SCH (21:06)
[2017-05-12] MEDS: LATANOPROST EYE DROP 0.005% 2.5 ML BOTTLE EACHEYE SCH (21:06)
[2017-05-12] MEDS: PROSOURCE / PROSTAT (PYXIS) 30 ML UDC GT SCH (21:06)
[2017-05-12] MEDS: LORATADINE 10 MG TABLET GT SCH (21:06)
[2017-05-12] MEDS: METHYLNALTREXONE BROMIDE 12 MG/0.6 ML VIAL SQ SCH (21:06)
[2017-05-13] MEDS: HYDROCODONE/APAP 7.5/325MG 1 EACH TABLET GT PRN ×2 (00:59→11:50)
[2017-05-13] MEDS: ALBUTEROL HALF STRENGTH 1.25 MG/3 ML VIAL.NEB NEB SCH ×4 (01:36→19:57)
[2017-05-13] MEDS: CHLORHEXIDINE GLUCONATE 15 ML UDC MM SCH ×2 (05:54→17:37)
[2017-05-13 08:08] VITALS: BP 140/93
[2017-05-13] MEDS: FINASTERIDE (5 MG) 5 MG TABLET GT SCH (08:54)
[2017-05-13] MEDS: DOXAZOSIN MESYLATE 8 MG GT SCH (08:54)
[2017-05-13] MEDS: RIFAXIMIN 550 MG TABLET PO SCH ×2 (08:54→17:37)
[2017-05-13] MEDS: CHOLECALCIFEROL (VITAMIN D 3) 400 UNIT TABLET GT SCH ×2 (08:54→21:43)
[2017-05-13] MEDS: Z GUARD REMEDY 4 OZ OINT TP SCH ×2 (08:54→21:43)
[2017-05-13] MEDS: POTASSIUM CHLORIDE 10 MEQ GT SCH (08:54)
[2017-05-13] MEDS: HYDROGEN PEROXIDE 480 ML BOTTLE TP SCH ×2 (08:54→21:43)
[2017-05-13] MEDS: ASPIRIN 81 MG TAB.CHEW GT SCH (08:54)
[2017-05-13] MEDS: VITAMINS A AND D 56.7 GM TUBE TP SCH ×4 (08:54→21:44)
[2017-05-13] MEDS: PRUNE JUICE GT SCH (11:49)
[2017-05-13] MEDS: PROSOURCE / PROSTAT (PYXIS) 30 ML UDC GT SCH (21:43)
[2017-05-13] MEDS: METHYLNALTREXONE BROMIDE 12 MG/0.6 ML VIAL SQ SCH (21:43)
[2017-05-13] MEDS: PRAVASTATIN SODIUM 20 MG TABLET GT SCH (21:44)
[2017-05-13] MEDS: MAGNESIUM HYDROXIDE 30 ML UDC GT PRN (21:44)
[2017-05-13] MEDS: LATANOPROST EYE DROP 0.005% 2.5 ML BOTTLE EACHEYE SCH (21:44)
[2017-05-13] MEDS: LORATADINE 10 MG TABLET GT SCH (21:44)
[2017-05-13 22:54] VITALS: BP 137/80
[2017-05-14] MEDS: ALBUTEROL HALF STRENGTH 1.25 MG/3 ML VIAL.NEB NEB SCH ×4 (01:51→20:01)
[2017-05-14] MEDS: FIBERSOURCE HN 1,000 ML BOTTLE GT PRN (05:40)
[2017-05-14] MEDS: CHLORHEXIDINE GLUCONATE 15 ML UDC MM SCH ×2 (05:40→18:00)
[2017-05-14] MEDS: [UNRECOGNIZED DRUG - OTHER] GT PRN (05:40)
[2017-05-14 08:00] VITALS: BP 122/75
[2017-05-14] MEDS: ASPIRIN 81 MG TAB.CHEW GT SCH (08:44)
[2017-05-14] MEDS: CHOLECALCIFEROL (VITAMIN D 3) 400 UNIT TABLET GT SCH ×2 (08:44→21:01)
[2017-05-14] MEDS: DOXAZOSIN MESYLATE 8 MG GT SCH (08:44)
[2017-05-14] MEDS: RIFAXIMIN 550 MG TABLET PO SCH ×2 (08:44→17:39)
[2017-05-14] MEDS: POTASSIUM CHLORIDE 10 MEQ GT SCH (08:44)
[2017-05-14] MEDS: FINASTERIDE (5 MG) 5 MG TABLET GT SCH (08:44)
[2017-05-14] MEDS: HYDROGEN PEROXIDE 480 ML BOTTLE TP SCH ×2 (08:44→21:01)
[2017-05-14] MEDS: VITAMINS A AND D 56.7 GM TUBE TP SCH ×4 (08:45→21:01)
[2017-05-14] MEDS: Z GUARD REMEDY 4 OZ OINT TP SCH ×2 (08:45→21:01)
[2017-05-14] MEDS: PRUNE JUICE GT SCH (12:00)
--- NOTE | 2017-05-14 15:20 | NUR ---
IDT meeting held. Resident's or dtrs unable to attend. Current orders, new medications, treatment and plan of care reviewed. Resident will have a dental cleaning on Wednesday. RNA stated that has been requesting for someone to come look at his toes, as they are curling up. PT eval will be ordered for the resident. Charge nurse to confirm if order for toe separator can be d/c.
[2017-05-14] MEDS: LATANOPROST EYE DROP 0.005% 2.5 ML BOTTLE EACHEYE SCH (21:01)
[2017-05-14] MEDS: LORATADINE 10 MG TABLET GT SCH (21:01)
[2017-05-14] MEDS: PROSOURCE / PROSTAT (PYXIS) 30 ML UDC GT SCH (21:01)
[2017-05-14] MEDS: METHYLNALTREXONE BROMIDE 12 MG/0.6 ML VIAL SQ SCH (21:01)
[2017-05-14] MEDS: PRAVASTATIN SODIUM 20 MG TABLET GT SCH (21:02)
[2017-05-14 23:25] VITALS: BP 112/76
[2017-05-15] MEDS: ALBUTEROL HALF STRENGTH 1.25 MG/3 ML VIAL.NEB NEB SCH ×4 (00:41→19:30)
[2017-05-15] MEDS: FIBERSOURCE HN 1,000 ML BOTTLE GT PRN (05:44)
[2017-05-15] MEDS: CHLORHEXIDINE GLUCONATE 15 ML UDC MM SCH ×2 (05:44→17:28)
[2017-05-15 07:43] VITALS: BP 128/69
[2017-05-15] MEDS: VITAMINS A AND D 56.7 GM TUBE TP SCH ×4 (08:47→21:06)
[2017-05-15] MEDS: DOXAZOSIN MESYLATE 8 MG GT SCH (08:47)
[2017-05-15] MEDS: ASPIRIN 81 MG TAB.CHEW GT SCH (08:47)
[2017-05-15] MEDS: POTASSIUM CHLORIDE 10 MEQ GT SCH (08:47)
[2017-05-15] MEDS: Z GUARD REMEDY 4 OZ OINT TP SCH ×2 (08:47→21:06)
[2017-05-15] MEDS: HYDROGEN PEROXIDE 480 ML BOTTLE TP SCH ×2 (08:47→21:05)
[2017-05-15] MEDS: RIFAXIMIN 550 MG TABLET PO SCH ×2 (08:47→17:28)
[2017-05-15] MEDS: CHOLECALCIFEROL (VITAMIN D 3) 400 UNIT TABLET GT SCH ×2 (08:47→21:05)
[2017-05-15] MEDS: FINASTERIDE (5 MG) 5 MG TABLET GT SCH (08:47)
[2017-05-15] MEDS: PRUNE JUICE GT SCH (12:00)
--- NOTE | 2017-05-15 12:00 | NUR ---
Seen and examined by Dr. Jerry rain.
[2017-05-15] MEDS: HYDROCODONE/APAP 7.5/325MG 1 EACH TABLET GT PRN (13:12)
[2017-05-15 17:25] VITALS: BP 126/75
[2017-05-15 19:26] VITALS: BP 126/75
[2017-05-15] MEDS: METHYLNALTREXONE BROMIDE 12 MG/0.6 ML VIAL SQ SCH (21:05)
[2017-05-15] MEDS: PROSOURCE / PROSTAT (PYXIS) 30 ML UDC GT SCH (21:05)
[2017-05-15] MEDS: LORATADINE 10 MG TABLET GT SCH (21:06)
[2017-05-15] MEDS: SIMETHICONE SUSP 40 MG/0.6 ML BOTTLE GT PRN (21:06)
[2017-05-15] MEDS: PRAVASTATIN SODIUM 20 MG TABLET GT SCH (21:06)
[2017-05-15] MEDS: [UNRECOGNIZED DRUG - OTHER] GT PRN (21:06)
[2017-05-15] MEDS: MAGNESIUM HYDROXIDE 30 ML UDC GT PRN (21:06)
[2017-05-15] MEDS: LATANOPROST EYE DROP 0.005% 2.5 ML BOTTLE EACHEYE SCH (21:06)
[2017-05-16] MEDS: ALBUTEROL HALF STRENGTH 1.25 MG/3 ML VIAL.NEB NEB SCH ×4 (02:18→19:31)
[2017-05-16] MEDS: CHLORHEXIDINE GLUCONATE 15 ML UDC MM SCH ×2 (05:18→18:32)
[2017-05-16] MEDS: FIBERSOURCE HN 1,000 ML BOTTLE GT PRN ×2 (05:18→21:38)
[2017-05-16 07:36] VITALS: BP 123/74
[2017-05-16] MEDS: VITAMINS A AND D 56.7 GM TUBE TP SCH ×4 (08:43→21:38)
[2017-05-16] MEDS: DOXAZOSIN MESYLATE 8 MG GT SCH (08:43)
[2017-05-16] MEDS: FINASTERIDE (5 MG) 5 MG TABLET GT SCH (08:43)
[2017-05-16] MEDS: RIFAXIMIN 550 MG TABLET PO SCH ×2 (08:43→17:09)
[2017-05-16] MEDS: ASPIRIN 81 MG TAB.CHEW GT SCH (08:43)
[2017-05-16] MEDS: HYDROGEN PEROXIDE 480 ML BOTTLE TP SCH ×2 (08:43→21:38)
[2017-05-16] MEDS: CHOLECALCIFEROL (VITAMIN D 3) 400 UNIT TABLET GT SCH ×2 (08:43→21:38)
[2017-05-16] MEDS: Z GUARD REMEDY 4 OZ OINT TP SCH ×2 (08:43→21:38)
[2017-05-16] MEDS: POTASSIUM CHLORIDE 10 MEQ GT SCH (08:43)
[2017-05-16] MEDS: PRUNE JUICE GT SCH (12:16)
[2017-05-16] MEDS: HYDROCODONE/APAP 7.5/325MG 1 EACH TABLET GT PRN (12:17)
[2017-05-16] MEDS: MAGNESIUM HYDROXIDE 30 ML UDC GT PRN (17:00)
[2017-05-16 20:17] VITALS: BP 137/83
[2017-05-16] MEDS: LATANOPROST EYE DROP 0.005% 2.5 ML BOTTLE EACHEYE SCH (21:38)
[2017-05-16] MEDS: PRAVASTATIN SODIUM 20 MG TABLET GT SCH (21:38)
[2017-05-16] MEDS: PROSOURCE / PROSTAT (PYXIS) 30 ML UDC GT SCH (21:38)
[2017-05-16] MEDS: METHYLNALTREXONE BROMIDE 12 MG/0.6 ML VIAL SQ SCH (21:38)
[2017-05-16] MEDS: LORATADINE 10 MG TABLET GT SCH (21:38)
[2017-05-16] MEDS: BISACODYL SUPP (10 MG) 10 MG/SUPP.RECT SUPP.RECT RC PRN (23:16)
[2017-05-17] MEDS: ALBUTEROL HALF STRENGTH 1.25 MG/3 ML VIAL.NEB NEB SCH ×4 (00:34→19:30)
[2017-05-17] MEDS: CHLORHEXIDINE GLUCONATE 15 ML UDC MM SCH ×2 (05:40→17:06)
[2017-05-17 07:49] VITALS: BP 143/94
[2017-05-17] MEDS: VITAMINS A AND D 56.7 GM TUBE TP SCH ×4 (09:00→21:23)
[2017-05-17] MEDS: Z GUARD REMEDY 4 OZ OINT TP SCH ×2 (09:00→21:23)
[2017-05-17] MEDS: HYDROGEN PEROXIDE 480 ML BOTTLE TP SCH ×2 (09:00→21:23)
[2017-05-17] MEDS: ASPIRIN 81 MG TAB.CHEW GT SCH (09:23)
[2017-05-17] MEDS: DOXAZOSIN MESYLATE 8 MG GT SCH (09:24)
[2017-05-17] MEDS: RIFAXIMIN 550 MG TABLET PO SCH ×2 (09:24→16:10)
[2017-05-17] MEDS: POTASSIUM CHLORIDE 10 MEQ GT SCH (09:24)
[2017-05-17] MEDS: CHOLECALCIFEROL (VITAMIN D 3) 400 UNIT TABLET GT SCH ×2 (09:24→21:23)
[2017-05-17] MEDS: FINASTERIDE (5 MG) 5 MG TABLET GT SCH (09:24)
[2017-05-17] MEDS: HYDROCODONE/APAP 7.5/325MG 1 EACH TABLET GT PRN (09:26)
--- NOTE | 2017-05-17 09:58 | NUR ---
Seen by Dr. Jose Alberto ASTORGA with present. He was able to do a dental cleaning with the 's assistance.
[2017-05-17] MEDS: PRUNE JUICE GT SCH (12:00)
--- NOTE | 2017-05-17 13:18 | NUR ---
SEEN AND EXAMINED BY ISABELA BUENROSTRO WITH NO NEW ORDERS AT THIS TIME.
[2017-05-17 21:00] VITALS: BP 121/71
[2017-05-17] MEDS: PROSOURCE / PROSTAT (PYXIS) 30 ML UDC GT SCH (21:17)
[2017-05-17] MEDS: METHYLNALTREXONE BROMIDE 12 MG/0.6 ML VIAL SQ SCH (21:23)
[2017-05-17] MEDS: LORATADINE 10 MG TABLET GT SCH (21:23)
[2017-05-17] MEDS: PRAVASTATIN SODIUM 20 MG TABLET GT SCH (21:23)
[2017-05-17] MEDS: LATANOPROST EYE DROP 0.005% 2.5 ML BOTTLE EACHEYE SCH (21:23)
[2017-05-17] MEDS: FIBERSOURCE HN 1,000 ML BOTTLE GT PRN (22:25)
[2017-05-18] MEDS: ALBUTEROL HALF STRENGTH 1.25 MG/3 ML VIAL.NEB NEB SCH ×4 (01:58→19:45)
[2017-05-18] MEDS: CHLORHEXIDINE GLUCONATE 15 ML UDC MM SCH ×2 (05:35→17:31)
[2017-05-18 08:14] VITALS: BP 116/71
[2017-05-18] MEDS: ASPIRIN 81 MG TAB.CHEW GT SCH (08:16)
[2017-05-18] MEDS: DOXAZOSIN MESYLATE 8 MG GT SCH (08:19)
[2017-05-18] MEDS: FINASTERIDE (5 MG) 5 MG TABLET GT SCH (08:19)
[2017-05-18] MEDS: POTASSIUM CHLORIDE 10 MEQ GT SCH (08:19)
[2017-05-18] MEDS: CHOLECALCIFEROL (VITAMIN D 3) 400 UNIT TABLET GT SCH ×2 (08:25→20:27)
[2017-05-18] MEDS: RIFAXIMIN 550 MG TABLET PO SCH ×2 (08:25→17:31)
[2017-05-18] MEDS: VITAMINS A AND D 56.7 GM TUBE TP SCH ×4 (08:26→20:27)
[2017-05-18] MEDS: Z GUARD REMEDY 4 OZ OINT TP SCH ×2 (08:26→20:27)
[2017-05-18] MEDS: HYDROGEN PEROXIDE 480 ML BOTTLE TP SCH ×2 (12:05→20:27)
[2017-05-18] MEDS: PRUNE JUICE GT SCH (12:05)
[2017-05-18] MEDS: PROSOURCE / PROSTAT (PYXIS) 30 ML UDC GT SCH (20:27)
[2017-05-18] MEDS: METHYLNALTREXONE BROMIDE 12 MG/0.6 ML VIAL SQ SCH (20:27)
[2017-05-18 20:41] VITALS: BP 116/74
[2017-05-18] MEDS: PRAVASTATIN SODIUM 20 MG TABLET GT SCH (21:36)
[2017-05-18] MEDS: LORATADINE 10 MG TABLET GT SCH (21:36)
[2017-05-18] MEDS: LATANOPROST EYE DROP 0.005% 2.5 ML BOTTLE EACHEYE SCH (21:36)
[2017-05-18] MEDS: FIBERSOURCE HN 1,000 ML BOTTLE GT PRN (22:35)
[2017-05-19] MEDS: ALBUTEROL HALF STRENGTH 1.25 MG/3 ML VIAL.NEB NEB SCH ×4 (01:22→19:21)
[2017-05-19] MEDS: CHLORHEXIDINE GLUCONATE 15 ML UDC MM SCH ×2 (05:05→18:08)
[2017-05-19] MEDS: RIFAXIMIN 550 MG TABLET PO SCH ×2 (09:00→17:00)
[2017-05-19] MEDS: ASPIRIN 81 MG TAB.CHEW GT SCH (09:00)
[2017-05-19] MEDS: VITAMINS A AND D 56.7 GM TUBE TP SCH ×4 (09:00→20:42)
[2017-05-19] MEDS: FINASTERIDE (5 MG) 5 MG TABLET GT SCH (09:00)
[2017-05-19] MEDS: DOXAZOSIN MESYLATE 8 MG GT SCH (09:00)
[2017-05-19] MEDS: CHOLECALCIFEROL (VITAMIN D 3) 400 UNIT TABLET GT SCH ×2 (09:00→20:42)
[2017-05-19] MEDS: HYDROGEN PEROXIDE 480 ML BOTTLE TP SCH ×2 (09:00→20:42)
[2017-05-19] MEDS: Z GUARD REMEDY 4 OZ OINT TP SCH ×2 (09:00→20:42)
[2017-05-19] MEDS: POTASSIUM CHLORIDE 10 MEQ GT SCH (09:00)
[2017-05-19] MEDS: HYDROCODONE/APAP 7.5/325MG 1 EACH TABLET GT PRN ×2 (09:40→20:43)
[2017-05-19 09:47] VITALS: BP 114/78
[2017-05-19] MEDS: PRUNE JUICE GT SCH (12:00)
--- NOTE | 2017-05-19 15:37 | NUR ---
Seen and examined by VIELKA Rai given.
[2017-05-19 20:32] VITALS: BP 129/78
[2017-05-19] MEDS: PROSOURCE / PROSTAT (PYXIS) 30 ML UDC GT SCH (20:42)
[2017-05-19] MEDS: METHYLNALTREXONE BROMIDE 12 MG/0.6 ML VIAL SQ SCH (20:42)
[2017-05-19] MEDS: PRAVASTATIN SODIUM 20 MG TABLET GT SCH (21:13)
[2017-05-19] MEDS: LORATADINE 10 MG TABLET GT SCH (21:13)
[2017-05-19] MEDS: LATANOPROST EYE DROP 0.005% 2.5 ML BOTTLE EACHEYE SCH (21:13)
[2017-05-19] MEDS: FIBERSOURCE HN 1,000 ML BOTTLE GT PRN (22:29)
[2017-05-20] MEDS: ALBUTEROL HALF STRENGTH 1.25 MG/3 ML VIAL.NEB NEB SCH ×4 (00:49→20:23)
[2017-05-20] MEDS: CHLORHEXIDINE GLUCONATE 15 ML UDC MM SCH ×2 (05:49→17:03)
[2017-05-20] MEDS: BISACODYL SUPP (10 MG) 10 MG/SUPP.RECT SUPP.RECT RC PRN (07:06)
[2017-05-20 07:46] VITALS: BP 120/80
[2017-05-20] MEDS: FIBERSOURCE HN 1,000 ML BOTTLE GT PRN (08:12)
[2017-05-20] MEDS: HYDROGEN PEROXIDE 480 ML BOTTLE TP SCH ×2 (09:05→20:55)
[2017-05-20] MEDS: FINASTERIDE (5 MG) 5 MG TABLET GT SCH (09:05)
[2017-05-20] MEDS: DOXAZOSIN MESYLATE 8 MG GT SCH (09:05)
[2017-05-20] MEDS: RIFAXIMIN 550 MG TABLET PO SCH ×2 (09:05→16:58)
[2017-05-20] MEDS: ASPIRIN 81 MG TAB.CHEW GT SCH (09:05)
[2017-05-20] MEDS: POTASSIUM CHLORIDE 10 MEQ GT SCH (09:05)
[2017-05-20] MEDS: CHOLECALCIFEROL (VITAMIN D 3) 400 UNIT TABLET GT SCH ×2 (09:05→20:55)
[2017-05-20] MEDS: Z GUARD REMEDY 4 OZ OINT TP SCH ×2 (09:06→20:55)
[2017-05-20] MEDS: VITAMINS A AND D 56.7 GM TUBE TP SCH ×4 (09:06→20:55)
[2017-05-20] MEDS: PRUNE JUICE GT SCH (12:02)
--- NOTE | 2017-05-20 13:43 | NUR ---
Pt's brought high potency flu vaccine that she picked up from Dr. Edwards's office. Flu vaccine was given on the right deltoid. No adverse reaction noted at this time.
[2017-05-20] MEDS: HYDROCODONE/APAP 7.5/325MG 1 EACH TABLET GT PRN (17:02)
[2017-05-20 19:58] VITALS: BP 114/62
[2017-05-20] MEDS: PROSOURCE / PROSTAT (PYXIS) 30 ML UDC GT SCH (20:55)
[2017-05-20] MEDS: METHYLNALTREXONE BROMIDE 12 MG/0.6 ML VIAL SQ SCH (20:55)
[2017-05-20] MEDS: PRAVASTATIN SODIUM 20 MG TABLET GT SCH (22:22)
[2017-05-20] MEDS: LORATADINE 10 MG TABLET GT SCH (22:22)
[2017-05-20] MEDS: LATANOPROST EYE DROP 0.005% 2.5 ML BOTTLE EACHEYE SCH (22:22)
[2017-05-21] MEDS: ALBUTEROL HALF STRENGTH 1.25 MG/3 ML VIAL.NEB NEB SCH ×3 (01:38→19:50)
[2017-05-21] MEDS: VITAMINS A AND D 56.7 GM TUBE TP SCH ×4 (09:00→21:21)
[2017-05-21] MEDS: ASPIRIN 81 MG TAB.CHEW GT SCH (09:00)
[2017-05-21] MEDS: DOXAZOSIN MESYLATE 8 MG GT SCH (09:00)
[2017-05-21] MEDS: RIFAXIMIN 550 MG TABLET PO SCH ×2 (09:00→17:25)
[2017-05-21] MEDS: Z GUARD REMEDY 4 OZ OINT TP SCH ×2 (09:00→21:21)
[2017-05-21] MEDS: HYDROGEN PEROXIDE 480 ML BOTTLE TP SCH ×2 (09:00→21:21)
[2017-05-21] MEDS: POTASSIUM CHLORIDE 10 MEQ GT SCH (09:00)
[2017-05-21] MEDS: FINASTERIDE (5 MG) 5 MG TABLET GT SCH (09:00)
[2017-05-21] MEDS: CHOLECALCIFEROL (VITAMIN D 3) 400 UNIT TABLET GT SCH ×2 (09:00→21:21)
[2017-05-21] MEDS: PRUNE JUICE GT SCH (12:00)
--- NOTE | 2017-05-21 15:24 | NUR ---
of resident is requesting pull ups while the resident is walking. She states he will need around 5 per week. SKIP informed the charge nurse. She also stated Dr. Morales never followed up on the medication for the resident's toes. SKIP called the wound center (ext [phone]) and spoke to [place]. He stated that he will inform Dr. Morales.
[2017-05-21] MEDS: CHLORHEXIDINE GLUCONATE 15 ML UDC MM SCH (18:00)
[2017-05-21 20:03] VITALS: BP 130/79
[2017-05-21] MEDS: PROSOURCE / PROSTAT (PYXIS) 30 ML UDC GT SCH (21:20)
[2017-05-21] MEDS: LORATADINE 10 MG TABLET GT SCH (21:21)
[2017-05-21] MEDS: METHYLNALTREXONE BROMIDE 12 MG/0.6 ML VIAL SQ SCH (21:21)
[2017-05-21] MEDS: LATANOPROST EYE DROP 0.005% 2.5 ML BOTTLE EACHEYE SCH (21:21)
[2017-05-21] MEDS: PRAVASTATIN SODIUM 20 MG TABLET GT SCH (21:21)
[2017-05-22] MEDS: ALBUTEROL HALF STRENGTH 1.25 MG/3 ML VIAL.NEB NEB SCH ×4 (01:55→20:26)
[2017-05-22] MEDS: FIBERSOURCE HN 1,000 ML BOTTLE GT PRN (04:09)
[2017-05-22] MEDS: CHLORHEXIDINE GLUCONATE 15 ML UDC MM SCH ×2 (05:26→17:09)
--- NOTE | 2017-05-22 06:46 | NUR ---
No adverse reaction from flu vaccine.Afebrile.will continue to monitor.
[2017-05-22 07:44] VITALS: BP 144/79
[2017-05-22] MEDS: DOXAZOSIN MESYLATE 8 MG GT SCH (08:23)
[2017-05-22] MEDS: POTASSIUM CHLORIDE 10 MEQ GT SCH (08:23)
[2017-05-22] MEDS: Z GUARD REMEDY 4 OZ OINT TP SCH ×2 (08:23→21:27)
[2017-05-22] MEDS: VITAMINS A AND D 56.7 GM TUBE TP SCH ×4 (08:23→21:27)
[2017-05-22] MEDS: CHOLECALCIFEROL (VITAMIN D 3) 400 UNIT TABLET GT SCH ×2 (08:23→21:27)
[2017-05-22] MEDS: HYDROGEN PEROXIDE 480 ML BOTTLE TP SCH ×2 (08:23→21:27)
[2017-05-22] MEDS: FINASTERIDE (5 MG) 5 MG TABLET GT SCH (08:23)
[2017-05-22] MEDS: RIFAXIMIN 550 MG TABLET PO SCH ×2 (08:23→17:09)
[2017-05-22] MEDS: ASPIRIN 81 MG TAB.CHEW GT SCH (08:23)
[2017-05-22] MEDS: PRUNE JUICE GT SCH (12:16)
[2017-05-22 19:54] VITALS: BP 127/76
[2017-05-22] MEDS: PRAVASTATIN SODIUM 20 MG TABLET GT SCH (21:27)
[2017-05-22] MEDS: LATANOPROST EYE DROP 0.005% 2.5 ML BOTTLE EACHEYE SCH (21:27)
[2017-05-22] MEDS: PROSOURCE / PROSTAT (PYXIS) 30 ML UDC GT SCH (21:27)
[2017-05-22] MEDS: METHYLNALTREXONE BROMIDE 12 MG/0.6 ML VIAL SQ SCH (21:27)
[2017-05-22] MEDS: LORATADINE 10 MG TABLET GT SCH (21:27)
[2017-05-23] MEDS: ALBUTEROL HALF STRENGTH 1.25 MG/3 ML VIAL.NEB NEB SCH ×4 (01:23→20:29)
[2017-05-23] MEDS: FIBERSOURCE HN 1,000 ML BOTTLE GT PRN (01:48)
[2017-05-23] MEDS: CHLORHEXIDINE GLUCONATE 15 ML UDC MM SCH ×2 (05:32→18:03)
[2017-05-23] MEDS: MAGNESIUM HYDROXIDE 30 ML UDC GT PRN (06:23)
[2017-05-23 08:37] VITALS: BP 118/70
[2017-05-23] MEDS: ASPIRIN 81 MG TAB.CHEW GT SCH (09:16)
[2017-05-23] MEDS: DOXAZOSIN MESYLATE 8 MG GT SCH (09:19)
[2017-05-23] MEDS: POTASSIUM CHLORIDE 10 MEQ GT SCH (09:20)
[2017-05-23] MEDS: FINASTERIDE (5 MG) 5 MG TABLET GT SCH (09:22)
[2017-05-23] MEDS: RIFAXIMIN 550 MG TABLET PO SCH ×2 (09:28→18:03)
[2017-05-23] MEDS: Z GUARD REMEDY 4 OZ OINT TP SCH ×2 (09:29→21:37)
[2017-05-23] MEDS: HYDROGEN PEROXIDE 480 ML BOTTLE TP SCH ×2 (09:29→21:37)
[2017-05-23] MEDS: VITAMINS A AND D 56.7 GM TUBE TP SCH ×4 (09:29→21:37)
[2017-05-23] MEDS: CHOLECALCIFEROL (VITAMIN D 3) 400 UNIT TABLET GT SCH ×2 (09:29→21:37)
[2017-05-23] MEDS: HYDROCODONE/APAP 7.5/325MG 1 EACH TABLET GT PRN (10:34)
[2017-05-23] MEDS: PRUNE JUICE GT SCH (12:25)
[2017-05-23 19:53] VITALS: BP 138/77
[2017-05-23] MEDS: LORATADINE 10 MG TABLET GT SCH (21:37)
[2017-05-23] MEDS: LATANOPROST EYE DROP 0.005% 2.5 ML BOTTLE EACHEYE SCH (21:37)
[2017-05-23] MEDS: PRAVASTATIN SODIUM 20 MG TABLET GT SCH (21:37)
[2017-05-23] MEDS: METHYLNALTREXONE BROMIDE 12 MG/0.6 ML VIAL SQ SCH (21:37)
[2017-05-23] MEDS: PROSOURCE / PROSTAT (PYXIS) 30 ML UDC GT SCH (21:37)
[2017-05-24] MEDS: ALBUTEROL HALF STRENGTH 1.25 MG/3 ML VIAL.NEB NEB SCH ×4 (01:06→19:53)
[2017-05-24] MEDS: CHLORHEXIDINE GLUCONATE 15 ML UDC MM SCH ×2 (06:16→17:31)
[2017-05-24] MEDS: ASPIRIN 81 MG TAB.CHEW GT SCH (08:00)
[2017-05-24] MEDS: FINASTERIDE (5 MG) 5 MG TABLET GT SCH (08:00)
[2017-05-24] MEDS: RIFAXIMIN 550 MG TABLET PO SCH ×2 (08:00→16:11)
[2017-05-24] MEDS: POTASSIUM CHLORIDE 10 MEQ GT SCH (08:00)
[2017-05-24] MEDS: DOXAZOSIN MESYLATE 8 MG GT SCH (08:00)
[2017-05-24] MEDS: CHOLECALCIFEROL (VITAMIN D 3) 400 UNIT TABLET GT SCH ×2 (08:00→20:05)
[2017-05-24] MEDS: HYDROCODONE/APAP 7.5/325MG 1 EACH TABLET GT PRN ×2 (08:01→20:06)
[2017-05-24 08:16] VITALS: BP 140/84
[2017-05-24] MEDS: HYDROGEN PEROXIDE 480 ML BOTTLE TP SCH ×2 (08:42→20:06)
[2017-05-24] MEDS: VITAMINS A AND D 56.7 GM TUBE TP SCH ×4 (08:42→20:06)
[2017-05-24] MEDS: Z GUARD REMEDY 4 OZ OINT TP SCH ×2 (08:42→20:06)
[2017-05-24] MEDS: PRUNE JUICE GT SCH (12:00)
[2017-05-24] MEDS: PROSOURCE / PROSTAT (PYXIS) 30 ML UDC GT SCH (20:05)
[2017-05-24] MEDS: METHYLNALTREXONE BROMIDE 12 MG/0.6 ML VIAL SQ SCH (20:06)
[2017-05-24 21:00] VITALS: BP 130/86
[2017-05-24] MEDS: LORATADINE 10 MG TABLET GT SCH (21:10)
[2017-05-24] MEDS: LATANOPROST EYE DROP 0.005% 2.5 ML BOTTLE EACHEYE SCH (21:10)
[2017-05-24] MEDS: PRAVASTATIN SODIUM 20 MG TABLET GT SCH (21:10)
[2017-05-24] MEDS: FIBERSOURCE HN 1,000 ML BOTTLE GT PRN (23:52)
[2017-05-25] MEDS: ALBUTEROL HALF STRENGTH 1.25 MG/3 ML VIAL.NEB NEB SCH ×4 (02:16→19:29)
[2017-05-25] MEDS: CHLORHEXIDINE GLUCONATE 15 ML UDC MM SCH (05:37)
--- NOTE | 2017-05-25 07:00 | NUR ---
RN OPENING NOTES HOB ELEVATED. VENT TRACH NON LABORED RESP. TUBE FEED RUNNING. SIDE RAILS X 2. BED LOW LOCKED. CALL LIGHT IN REACH. WILL CONT TO MONITOR. Addendum: 05/25/17 at 1008 by VIVI PIERSON RN CORRECTION: HIGH FLOW TRACH COLLAR.
[2017-05-25 08:08] VITALS: BP 114/68
[2017-05-25] MEDS: POTASSIUM CHLORIDE 10 MEQ GT SCH (08:35)
[2017-05-25] MEDS: DOXAZOSIN MESYLATE 8 MG GT SCH (08:35)
[2017-05-25] MEDS: ASPIRIN 81 MG TAB.CHEW GT SCH (08:35)
[2017-05-25] MEDS: VITAMINS A AND D 56.7 GM TUBE TP SCH ×4 (08:37→21:08)
[2017-05-25] MEDS: FINASTERIDE (5 MG) 5 MG TABLET GT SCH (08:37)
[2017-05-25] MEDS: Z GUARD REMEDY 4 OZ OINT TP SCH ×2 (08:37→21:08)
[2017-05-25] MEDS: CHOLECALCIFEROL (VITAMIN D 3) 400 UNIT TABLET GT SCH ×2 (08:37→21:08)
[2017-05-25] MEDS: HYDROGEN PEROXIDE 480 ML BOTTLE TP SCH ×2 (08:37→21:08)
[2017-05-25] MEDS: RIFAXIMIN 550 MG TABLET PO SCH ×2 (08:39→16:24)
[2017-05-25] MEDS: PRUNE JUICE GT SCH (12:00)
--- NOTE | 2017-05-25 13:50 | NUR ---
Reminded that jayashree was coming tomorrow 05/26/2017 around 8:30AM. She stated she will be here to assist.
[2017-05-25] MEDS: DICLOFENAC TOPICAL 100 GM GEL..GM. TP SCH (16:23)
--- NOTE | 2017-05-25 17:40 | NUR ---
RN CLOSING NOTES HOB ELEVATED. HIGH FLOW TRACH NON LABORED RESP. TUBE FEED RUNNING. SIDE RAILS X 2. BED LOW LOCKED. CALL LIGHT IN REACH. WILL CONT TO MONITOR AND ENDORSE TO NOC RN.
[2017-05-25 20:13] VITALS: BP 119/70
[2017-05-25] MEDS: LATANOPROST EYE DROP 0.005% 2.5 ML BOTTLE EACHEYE SCH (21:08)
[2017-05-25] MEDS: METHYLNALTREXONE BROMIDE 12 MG/0.6 ML VIAL SQ SCH (21:08)
[2017-05-25] MEDS: LORATADINE 10 MG TABLET GT SCH (21:08)
[2017-05-25] MEDS: PROSOURCE / PROSTAT (PYXIS) 30 ML UDC GT SCH (21:08)
[2017-05-25] MEDS: PRAVASTATIN SODIUM 20 MG TABLET GT SCH (21:08)
[2017-05-26] MEDS: ALBUTEROL HALF STRENGTH 1.25 MG/3 ML VIAL.NEB NEB SCH ×4 (00:50→19:48)
[2017-05-26] MEDS: CHLORHEXIDINE GLUCONATE 15 ML UDC MM SCH ×2 (05:08→18:10)
[2017-05-26 07:44] VITALS: BP 115/77
[2017-05-26] MEDS: VITAMINS A AND D 56.7 GM TUBE TP SCH ×4 (08:05→21:11)
[2017-05-26] MEDS: HYDROGEN PEROXIDE 480 ML BOTTLE TP SCH ×2 (08:05→21:11)
[2017-05-26] MEDS: RIFAXIMIN 550 MG TABLET PO SCH ×2 (08:05→17:00)
[2017-05-26] MEDS: ASPIRIN 81 MG TAB.CHEW GT SCH (08:05)
[2017-05-26] MEDS: CHOLECALCIFEROL (VITAMIN D 3) 400 UNIT TABLET GT SCH ×2 (08:05→21:10)
[2017-05-26] MEDS: Z GUARD REMEDY 4 OZ OINT TP SCH ×2 (08:05→21:11)
[2017-05-26] MEDS: FINASTERIDE (5 MG) 5 MG TABLET GT SCH (08:05)
[2017-05-26] MEDS: DOXAZOSIN MESYLATE 8 MG GT SCH (08:05)
[2017-05-26] MEDS: POTASSIUM CHLORIDE 10 MEQ GT SCH (08:05)
[2017-05-26] MEDS: DICLOFENAC TOPICAL 100 GM GEL..GM. TP SCH ×2 (09:00→17:00)
[2017-05-26] MEDS: HYDROCODONE/APAP 7.5/325MG 1 EACH TABLET GT PRN (10:25)
--- NOTE | 2017-05-26 10:45 | NUR ---
Resident received his haircut by jayashree Johnson. was present in the room.
[2017-05-26] MEDS: PRUNE JUICE GT SCH (12:00)
[2017-05-26 20:27] VITALS: BP 127/80
[2017-05-26] MEDS: LORATADINE 10 MG TABLET GT SCH (21:10)
[2017-05-26] MEDS: PROSOURCE / PROSTAT (PYXIS) 30 ML UDC GT SCH (21:11)
[2017-05-26] MEDS: PRAVASTATIN SODIUM 20 MG TABLET GT SCH (21:11)
[2017-05-26] MEDS: LATANOPROST EYE DROP 0.005% 2.5 ML BOTTLE EACHEYE SCH (21:11)
[2017-05-26] MEDS: METHYLNALTREXONE BROMIDE 12 MG/0.6 ML VIAL SQ SCH (21:12)
[2017-05-27] MEDS: ALBUTEROL HALF STRENGTH 1.25 MG/3 ML VIAL.NEB NEB SCH ×4 (00:56→19:27)
[2017-05-27] MEDS: FIBERSOURCE HN 1,000 ML BOTTLE GT PRN (01:30)
[2017-05-27] MEDS: CHLORHEXIDINE GLUCONATE 15 ML UDC MM SCH ×2 (05:42→17:06)
--- NOTE | 2017-05-27 07:02 | NUR ---
SOUND CUTTER /CLOSING NOTES 'PT RESTING COMFORTABLY IN BED WITHOUT ANY ACUTE DISTRESS NOTED GIOVANNI THE NIGHT. SUCTION NEEDED. ALL DUE MEDS GIVEN AND ALL NEEDS MET, REPOSITION Q 2HRS. .KEPT HIM WARM AND COMFORTABLE AT ALL TIMES. ENDORSE TO AM NURSE FOR CONTINUITY OF CARE.
[2017-05-27 07:48] VITALS: BP 127/77
[2017-05-27] MEDS: DOXAZOSIN MESYLATE 8 MG GT SCH (08:17)
[2017-05-27] MEDS: ASPIRIN 81 MG TAB.CHEW GT SCH (08:17)
[2017-05-27] MEDS: CHOLECALCIFEROL (VITAMIN D 3) 400 UNIT TABLET GT SCH ×2 (08:17→20:59)
[2017-05-27] MEDS: POTASSIUM CHLORIDE 10 MEQ GT SCH (08:17)
[2017-05-27] MEDS: RIFAXIMIN 550 MG TABLET PO SCH ×2 (08:17→17:06)
[2017-05-27] MEDS: FINASTERIDE (5 MG) 5 MG TABLET GT SCH (08:17)
[2017-05-27] MEDS: DICLOFENAC TOPICAL 100 GM GEL..GM. TP SCH ×2 (08:25→17:06)
[2017-05-27] MEDS: VITAMINS A AND D 56.7 GM TUBE TP SCH ×4 (08:25→21:02)
[2017-05-27] MEDS: HYDROGEN PEROXIDE 480 ML BOTTLE TP SCH ×2 (08:25→21:00)
[2017-05-27] MEDS: Z GUARD REMEDY 4 OZ OINT TP SCH ×2 (08:25→21:01)
--- NOTE | 2017-05-27 10:00 | NUR ---
Left message for Dr. Forman that Jublia is not covered by pt's insurance.
[2017-05-27] MEDS: PRUNE JUICE GT SCH (12:00)
[2017-05-27 20:00] VITALS: BP 134/74
[2017-05-27] MEDS: PROSOURCE / PROSTAT (PYXIS) 30 ML UDC GT SCH (21:00)
[2017-05-27] MEDS: METHYLNALTREXONE BROMIDE 12 MG/0.6 ML VIAL SQ SCH (21:00)
[2017-05-27] MEDS: LORATADINE 10 MG TABLET GT SCH (21:00)
[2017-05-27] MEDS: PRAVASTATIN SODIUM 20 MG TABLET GT SCH (21:01)
[2017-05-27] MEDS: LATANOPROST EYE DROP 0.005% 2.5 ML BOTTLE EACHEYE SCH (21:02)
[2017-05-28] MEDS: ALBUTEROL HALF STRENGTH 1.25 MG/3 ML VIAL.NEB NEB SCH ×4 (00:56→19:57)
[2017-05-28] MEDS: CHLORHEXIDINE GLUCONATE 15 ML UDC MM SCH ×2 (05:55→17:01)
[2017-05-28] MEDS: DOXAZOSIN MESYLATE 8 MG GT SCH (08:15)
[2017-05-28] MEDS: ASPIRIN 81 MG TAB.CHEW GT SCH (08:15)
[2017-05-28] MEDS: POTASSIUM CHLORIDE 10 MEQ GT SCH (08:16)
[2017-05-28] MEDS: RIFAXIMIN 550 MG TABLET PO SCH ×2 (08:16→17:00)
[2017-05-28] MEDS: FINASTERIDE (5 MG) 5 MG TABLET GT SCH (08:16)
[2017-05-28] MEDS: CHOLECALCIFEROL (VITAMIN D 3) 400 UNIT TABLET GT SCH ×2 (08:16→21:20)
[2017-05-28] MEDS: Z GUARD REMEDY 4 OZ OINT TP SCH ×2 (08:25→21:20)
[2017-05-28] MEDS: HYDROGEN PEROXIDE 480 ML BOTTLE TP SCH ×2 (08:25→21:20)
[2017-05-28] MEDS: VITAMINS A AND D 56.7 GM TUBE TP SCH ×4 (08:26→21:20)
[2017-05-28] MEDS: DICLOFENAC TOPICAL 100 GM GEL..GM. TP SCH ×2 (09:00→17:02)
[2017-05-28] MEDS: PRUNE JUICE GT SCH (12:00)
--- NOTE | 2017-05-28 12:19 | NUR ---
informed SW that she wanted to follow up with OT/PT regarding resident's toes as they seem to be omer. Informed charge nurse. Spoke with PT director Sandro who stated that the PT that provides recommendations for devices will not be here until Friday June 02, 2017. Charge nurse informed.
[2017-05-28 12:51] VITALS: BP 125/74
[2017-05-28 20:04] VITALS: BP 121/76
[2017-05-28] MEDS: METHYLNALTREXONE BROMIDE 12 MG/0.6 ML VIAL SQ SCH (21:20)
[2017-05-28] MEDS: PROSOURCE / PROSTAT (PYXIS) 30 ML UDC GT SCH (21:20)
[2017-05-28] MEDS: PRAVASTATIN SODIUM 20 MG TABLET GT SCH (22:11)
[2017-05-28] MEDS: LORATADINE 10 MG TABLET GT SCH (22:11)
[2017-05-28] MEDS: LATANOPROST EYE DROP 0.005% 2.5 ML BOTTLE EACHEYE SCH (22:11)
[2017-05-29] MEDS: ALBUTEROL HALF STRENGTH 1.25 MG/3 ML VIAL.NEB NEB SCH ×4 (01:23→19:26)
[2017-05-29] MEDS: FIBERSOURCE HN 1,000 ML BOTTLE GT PRN ×3 (02:25→21:05)
[2017-05-29] MEDS: CHLORHEXIDINE GLUCONATE 15 ML UDC MM SCH ×2 (06:50→17:44)
[2017-05-29 07:45] VITALS: BP 117/54
[2017-05-29] MEDS: ASPIRIN 81 MG TAB.CHEW GT SCH (08:31)
[2017-05-29] MEDS: DOXAZOSIN MESYLATE 8 MG GT SCH (08:31)
[2017-05-29] MEDS: POTASSIUM CHLORIDE 10 MEQ GT SCH (08:32)
[2017-05-29] MEDS: FINASTERIDE (5 MG) 5 MG TABLET GT SCH (08:32)
[2017-05-29] MEDS: CHOLECALCIFEROL (VITAMIN D 3) 400 UNIT TABLET GT SCH ×2 (08:32→21:04)
[2017-05-29] MEDS: RIFAXIMIN 550 MG TABLET PO SCH ×2 (08:32→17:46)
[2017-05-29] MEDS: DICLOFENAC TOPICAL 100 GM GEL..GM. TP SCH ×2 (09:00→17:44)
[2017-05-29] MEDS: VITAMINS A AND D 56.7 GM TUBE TP SCH ×4 (09:00→21:05)
[2017-05-29] MEDS: HYDROGEN PEROXIDE 480 ML BOTTLE TP SCH ×2 (09:00→21:04)
[2017-05-29] MEDS: Z GUARD REMEDY 4 OZ OINT TP SCH ×2 (09:00→21:04)
[2017-05-29] MEDS: PRUNE JUICE GT SCH (12:00)
[2017-05-29] MEDS: HYDROCODONE/APAP 7.5/325MG 1 EACH TABLET GT PRN ×2 (14:57→22:29)
[2017-05-29 19:58] VITALS: BP 133/78
[2017-05-29] MEDS: PROSOURCE / PROSTAT (PYXIS) 30 ML UDC GT SCH (21:04)
[2017-05-29] MEDS: METHYLNALTREXONE BROMIDE 12 MG/0.6 ML VIAL SQ SCH (21:04)
[2017-05-29] MEDS: LATANOPROST EYE DROP 0.005% 2.5 ML BOTTLE EACHEYE SCH (21:05)
[2017-05-29] MEDS: PRAVASTATIN SODIUM 20 MG TABLET GT SCH (21:05)
[2017-05-29] MEDS: LORATADINE 10 MG TABLET GT SCH (21:05)
[2017-05-30] MEDS: ALBUTEROL HALF STRENGTH 1.25 MG/3 ML VIAL.NEB NEB SCH ×4 (01:23→19:53)
[2017-05-30] MEDS: CHLORHEXIDINE GLUCONATE 15 ML UDC MM SCH ×2 (05:57→17:41)
[2017-05-30] MEDS: MAGNESIUM HYDROXIDE 30 ML UDC GT PRN (07:03)
[2017-05-30 07:43] VITALS: BP 126/79
[2017-05-30 07:57] LABS: BASOPHILS # (AUTO) 0.1 /CMM (0.0-0.2); BASOPHILS % (AUTO) 1.7 % (0.0-2.0); EOSINOPHILS # (AUTO) 0.3 /CMM (0.0-0.7); EOSINOPHILS % (AUTO) 8.4 % (0.0-6.0); HEMATOCRIT 42 % (39-51); HEMOGLOBIN 14.2 g/dL (13.5-17.5); LYMPHOCYTES # (AUTO) 1.1 /CMM (0.8-4.8); LYMPHOCYTES % (AUTO) 31.8 % (20.0-44.0); MEAN CORPUSCULAR HEMOGLOBIN 33 PG (26.0-33.0); MEAN CORPUSCULAR HGB CONC 34 g/dl (31.0-36.0); MEAN CORPUSCULAR VOLUME 97 fL (80-96); MONOCYTES # (AUTO) 0.4 /CMM (0.1-1.30); MONOCYTES % (AUTO) 10.7 % (2.0-12.0); NEUTROPHILS # (AUTO) 1.6 /CMM (1.8-8.9); NEUTROPHILS % (AUTO) 47.4 % (43.0-81.0); PLATELET COUNT (AUTO) 81 /CMM (150-450); RDW COEFFICIENT OF VARIATION 13.6 (11.5-15.0); RED BLOOD CELL COUNT(AUTO) 4.33 MIL/uL (4.5-6.0); WHITE BLOOD COUNT (AUTO) 3.3 K/uL (4.3-11.0)
[2017-05-30] MEDS: DOXAZOSIN MESYLATE 8 MG GT SCH (08:38)
[2017-05-30] MEDS: ASPIRIN 81 MG TAB.CHEW GT SCH (08:38)
[2017-05-30] MEDS: FINASTERIDE (5 MG) 5 MG TABLET GT SCH (08:39)
[2017-05-30] MEDS: VITAMINS A AND D 56.7 GM TUBE TP SCH ×4 (08:39→21:03)
[2017-05-30] MEDS: RIFAXIMIN 550 MG TABLET PO SCH ×2 (08:39→17:41)
[2017-05-30] MEDS: POTASSIUM CHLORIDE 10 MEQ GT SCH (08:39)
[2017-05-30] MEDS: HYDROGEN PEROXIDE 480 ML BOTTLE TP SCH ×2 (08:39→21:02)
[2017-05-30] MEDS: CHOLECALCIFEROL (VITAMIN D 3) 400 UNIT TABLET GT SCH ×2 (08:39→21:02)
[2017-05-30] MEDS: Z GUARD REMEDY 4 OZ OINT TP SCH ×2 (08:39→21:03)
[2017-05-30] MEDS: DICLOFENAC TOPICAL 100 GM GEL..GM. TP SCH ×2 (09:11→17:41)
[2017-05-30] MEDS: ACETAMINOPHEN 650 MG/20 ML UDC- FOR SA PATIENTS ONLY PO PRN (09:53)
[2017-05-30 09:54] LABS: EOSINOPHILS % (MANUAL) 13 % (0-4); LYMPHOCYTES % (MANUAL) 34 % (16-48); MONOCYTES % (MANUAL) 11 % (0-11.0); NEUTROPHILS % (MANUAL) 42 (42-76)
[2017-05-30] MEDS: PRUNE JUICE GT SCH (12:00)
[2017-05-30] MEDS: FIBERSOURCE HN 1,000 ML BOTTLE GT PRN (16:03)
[2017-05-30] MEDS: BISACODYL SUPP (10 MG) 10 MG/SUPP.RECT SUPP.RECT RC PRN (19:16)
[2017-05-30 20:04] VITALS: BP 107/58
[2017-05-30] MEDS: PROSOURCE / PROSTAT (PYXIS) 30 ML UDC GT SCH (21:00)
[2017-05-30] MEDS: LORATADINE 10 MG TABLET GT SCH (21:00)
[2017-05-30] MEDS: METHYLNALTREXONE BROMIDE 12 MG/0.6 ML VIAL SQ SCH (21:02)
[2017-05-30] MEDS: LATANOPROST EYE DROP 0.005% 2.5 ML BOTTLE EACHEYE SCH (21:03)
[2017-05-30] MEDS: PRAVASTATIN SODIUM 20 MG TABLET GT SCH (21:03)
[2017-05-31] MEDS: ALBUTEROL HALF STRENGTH 1.25 MG/3 ML VIAL.NEB NEB SCH ×4 (01:44→20:20)
[2017-05-31] MEDS: CHLORHEXIDINE GLUCONATE 15 ML UDC MM SCH ×2 (05:53→17:11)
[2017-05-31] MEDS: FIBERSOURCE HN 1,000 ML BOTTLE GT PRN (07:36)
[2017-05-31 08:17] VITALS: BP 134/84
[2017-05-31] MEDS: RIFAXIMIN 550 MG TABLET PO SCH ×2 (08:32→16:59)
[2017-05-31] MEDS: Z GUARD REMEDY 4 OZ OINT TP SCH ×2 (08:32→21:01)
[2017-05-31] MEDS: POTASSIUM CHLORIDE 10 MEQ GT SCH (08:32)
[2017-05-31] MEDS: ASPIRIN 81 MG TAB.CHEW GT SCH (08:32)
[2017-05-31] MEDS: VITAMINS A AND D 56.7 GM TUBE TP SCH ×4 (08:32→21:01)
[2017-05-31] MEDS: CHOLECALCIFEROL (VITAMIN D 3) 400 UNIT TABLET GT SCH ×2 (08:32→20:59)
[2017-05-31] MEDS: HYDROGEN PEROXIDE 480 ML BOTTLE TP SCH ×2 (08:32→21:01)
[2017-05-31] MEDS: FINASTERIDE (5 MG) 5 MG TABLET GT SCH (08:32)
[2017-05-31] MEDS: DOXAZOSIN MESYLATE 8 MG GT SCH (08:32)
[2017-05-31] MEDS: DICLOFENAC TOPICAL 100 GM GEL..GM. TP SCH ×2 (09:00→16:59)
--- NOTE | 2017-05-31 10:07 | NUR ---
Informed Dakota from wound center if Dr. Morales can follow up regarding medication for the resident's toe nails. He will notify Dr. Morales.
[2017-05-31 20:00] VITALS: BP 134/83
[2017-05-31] MEDS: LORATADINE 10 MG TABLET GT SCH (20:59)
[2017-05-31] MEDS: PROSOURCE / PROSTAT (PYXIS) 30 ML UDC GT SCH (20:59)
[2017-05-31] MEDS: METHYLNALTREXONE BROMIDE 12 MG/0.6 ML VIAL SQ SCH (20:59)
[2017-05-31] MEDS: LATANOPROST EYE DROP 0.005% 2.5 ML BOTTLE EACHEYE SCH (21:01)
[2017-05-31] MEDS: PRAVASTATIN SODIUM 20 MG TABLET GT SCH (21:02)
[2017-06-01] MEDS: ALBUTEROL HALF STRENGTH 1.25 MG/3 ML VIAL.NEB NEB SCH ×4 (02:24→19:53)
[2017-06-01] MEDS: CHLORHEXIDINE GLUCONATE 15 ML UDC MM SCH ×2 (06:18→17:18)
[2017-06-01] MEDS: FIBERSOURCE HN 1,000 ML BOTTLE GT PRN (06:26)
[2017-06-01 07:56] VITALS: BP 122/79
[2017-06-01] MEDS: DOXAZOSIN MESYLATE 8 MG GT SCH (08:27)
[2017-06-01] MEDS: ASPIRIN 81 MG TAB.CHEW GT SCH (08:27)
[2017-06-01] MEDS: POTASSIUM CHLORIDE 10 MEQ GT SCH (08:27)
[2017-06-01] MEDS: Z GUARD REMEDY 4 OZ OINT TP SCH ×2 (08:28→20:53)
[2017-06-01] MEDS: FINASTERIDE (5 MG) 5 MG TABLET GT SCH (08:28)
[2017-06-01] MEDS: DICLOFENAC TOPICAL 100 GM GEL..GM. TP SCH ×2 (08:28→17:18)
[2017-06-01] MEDS: HYDROGEN PEROXIDE 480 ML BOTTLE TP SCH ×2 (08:28→20:53)
[2017-06-01] MEDS: VITAMINS A AND D 56.7 GM TUBE TP SCH ×4 (08:28→20:53)
[2017-06-01] MEDS: RIFAXIMIN 550 MG TABLET PO SCH ×2 (08:28→17:18)
[2017-06-01] MEDS: CHOLECALCIFEROL (VITAMIN D 3) 400 UNIT TABLET GT SCH ×2 (08:28→20:51)
[2017-06-01] MEDS: HYDROCODONE/APAP 7.5/325MG 1 EACH TABLET GT PRN (09:47)
[2017-06-01] MEDS: PRUNE JUICE GT SCH (11:00)
--- NOTE | 2017-06-01 13:40 | NUR ---
Pt's said pt's left side of lower lip is swollen and pt is drooling. Swelling is hardly noticeable, pt denied any pain, no redness noted. Reminded that pt is always drooling. Notified Dr. Edwards. He said he will see the pt tomorrow.
--- NOTE | 2017-06-01 18:39 | NUR ---
Pt's came back to visit. Notified her that Dr. Edwards said he will see pt tomorrow.
[2017-06-01 20:11] VITALS: BP 116/69
[2017-06-01] MEDS: PROSOURCE / PROSTAT (PYXIS) 30 ML UDC GT SCH (20:51)
[2017-06-01] MEDS: LORATADINE 10 MG TABLET GT SCH (20:52)
[2017-06-01] MEDS: METHYLNALTREXONE BROMIDE 12 MG/0.6 ML VIAL SQ SCH (20:52)
[2017-06-01] MEDS: PRAVASTATIN SODIUM 20 MG TABLET GT SCH (21:48)
[2017-06-01] MEDS: LATANOPROST EYE DROP 0.005% 2.5 ML BOTTLE EACHEYE SCH (21:48)
[2017-06-02] MEDS: ALBUTEROL HALF STRENGTH 1.25 MG/3 ML VIAL.NEB NEB SCH ×4 (01:08→20:22)
[2017-06-02] MEDS: CHLORHEXIDINE GLUCONATE 15 ML UDC MM SCH ×2 (06:18→18:28)
[2017-06-02 08:11] VITALS: BP 114/67
[2017-06-02] MEDS: POTASSIUM CHLORIDE 10 MEQ GT SCH (08:21)
[2017-06-02] MEDS: VITAMINS A AND D 56.7 GM TUBE TP SCH ×4 (08:21→21:10)
[2017-06-02] MEDS: FINASTERIDE (5 MG) 5 MG TABLET GT SCH (08:21)
[2017-06-02] MEDS: DOXAZOSIN MESYLATE 8 MG GT SCH (08:21)
[2017-06-02] MEDS: ASPIRIN 81 MG TAB.CHEW GT SCH (08:21)
[2017-06-02] MEDS: CHOLECALCIFEROL (VITAMIN D 3) 400 UNIT TABLET GT SCH ×2 (08:21→21:09)
[2017-06-02] MEDS: RIFAXIMIN 550 MG TABLET PO SCH ×2 (08:21→16:43)
[2017-06-02] MEDS: HYDROGEN PEROXIDE 480 ML BOTTLE TP SCH ×2 (08:21→21:09)
[2017-06-02] MEDS: Z GUARD REMEDY 4 OZ OINT TP SCH ×2 (08:21→21:10)
[2017-06-02] MEDS: DICLOFENAC TOPICAL 100 GM GEL..GM. TP SCH ×2 (08:22→16:43)
[2017-06-02] MEDS: PRUNE JUICE GT SCH (11:27)
[2017-06-02] MEDS: ACETAMINOPHEN 650 MG/20 ML UDC- FOR SA PATIENTS ONLY PO PRN (11:27)
--- NOTE | 2017-06-02 15:35 | NUR ---
Received a prescription for Clotrimazole 1% for resident sent by Dr. Meyers, roofer helper vinyl coating. Order faxed to [facility] pharmacy, stated that they will call facility if it is not covered.
[2017-06-02] MEDS: HYDROCODONE/APAP 7.5/325MG 1 EACH TABLET GT PRN (19:01)
[2017-06-02 20:00] VITALS: BP 128/84
[2017-06-02] MEDS: PROSOURCE / PROSTAT (PYXIS) 30 ML UDC GT SCH (21:09)
[2017-06-02] MEDS: METHYLNALTREXONE BROMIDE 12 MG/0.6 ML VIAL SQ SCH (21:09)
[2017-06-02] MEDS: NEOMY SULF/BACITRAC ZN/POLY 15 GM TUBE TP SCH (21:10)
[2017-06-02] MEDS: LORATADINE 10 MG TABLET GT SCH (21:11)
[2017-06-02] MEDS: PRAVASTATIN SODIUM 20 MG TABLET GT SCH (21:11)
[2017-06-02] MEDS: LATANOPROST EYE DROP 0.005% 2.5 ML BOTTLE EACHEYE SCH (21:11)
[2017-06-03] MEDS: ALBUTEROL HALF STRENGTH 1.25 MG/3 ML VIAL.NEB NEB SCH ×4 (01:30→19:48)
[2017-06-03] MEDS: FIBERSOURCE HN 1,000 ML BOTTLE GT PRN (04:08)
[2017-06-03] MEDS: CHLORHEXIDINE GLUCONATE 15 ML UDC MM SCH ×2 (06:02→17:32)
[2017-06-03 07:46] VITALS: BP 121/76
[2017-06-03] MEDS: DOXAZOSIN MESYLATE 8 MG GT SCH (08:57)
[2017-06-03] MEDS: FINASTERIDE (5 MG) 5 MG TABLET GT SCH (08:57)
[2017-06-03] MEDS: CHOLECALCIFEROL (VITAMIN D 3) 400 UNIT TABLET GT SCH ×2 (08:57→21:00)
[2017-06-03] MEDS: ASPIRIN 81 MG TAB.CHEW GT SCH (08:57)
[2017-06-03] MEDS: POTASSIUM CHLORIDE 10 MEQ GT SCH (08:57)
[2017-06-03] MEDS: HYDROGEN PEROXIDE 480 ML BOTTLE TP SCH ×2 (08:58→21:00)
[2017-06-03] MEDS: NEOMY SULF/BACITRAC ZN/POLY 15 GM TUBE TP SCH ×2 (08:58→21:01)
[2017-06-03] MEDS: CLOTRIMAZOLE 1% TP SCH (08:58)
[2017-06-03] MEDS: VITAMINS A AND D 56.7 GM TUBE TP SCH ×4 (08:58→21:01)
[2017-06-03] MEDS: Z GUARD REMEDY 4 OZ OINT TP SCH ×2 (08:58→21:01)
[2017-06-03] MEDS: RIFAXIMIN 550 MG TABLET PO SCH ×2 (08:58→17:32)
[2017-06-03] MEDS: DICLOFENAC TOPICAL 100 GM GEL..GM. TP SCH ×2 (08:58→17:32)
[2017-06-03] MEDS: PRUNE JUICE GT SCH (11:00)
[2017-06-03 20:05] VITALS: BP 116/73
[2017-06-03] MEDS: HYDROCODONE/APAP 7.5/325MG 1 EACH TABLET GT PRN (20:49)
[2017-06-03] MEDS: METHYLNALTREXONE BROMIDE 12 MG/0.6 ML VIAL SQ SCH (21:00)
[2017-06-03] MEDS: PROSOURCE / PROSTAT (PYXIS) 30 ML UDC GT SCH (21:00)
[2017-06-03] MEDS: LORATADINE 10 MG TABLET GT SCH (21:01)
[2017-06-03] MEDS: LATANOPROST EYE DROP 0.005% 2.5 ML BOTTLE EACHEYE SCH (21:01)
[2017-06-03] MEDS: PRAVASTATIN SODIUM 20 MG TABLET GT SCH (21:01)
[2017-06-04] MEDS: ALBUTEROL HALF STRENGTH 1.25 MG/3 ML VIAL.NEB NEB SCH ×4 (02:04→19:57)
[2017-06-04] MEDS: CHLORHEXIDINE GLUCONATE 15 ML UDC MM SCH ×2 (06:01→17:22)
[2017-06-04] MEDS: FIBERSOURCE HN 1,000 ML BOTTLE GT PRN (06:01)
[2017-06-04 08:22] VITALS: BP 119/72
[2017-06-04 08:24] VITALS: BP 109/46
[2017-06-04] MEDS: ASPIRIN 81 MG TAB.CHEW GT SCH (08:42)
[2017-06-04] MEDS: POTASSIUM CHLORIDE 10 MEQ GT SCH (08:43)
[2017-06-04] MEDS: FINASTERIDE (5 MG) 5 MG TABLET GT SCH (08:43)
[2017-06-04] MEDS: DOXAZOSIN MESYLATE 8 MG GT SCH (08:43)
[2017-06-04] MEDS: RIFAXIMIN 550 MG TABLET PO SCH ×2 (08:44→17:21)
[2017-06-04] MEDS: CHOLECALCIFEROL (VITAMIN D 3) 400 UNIT TABLET GT SCH ×2 (08:47→21:04)
[2017-06-04] MEDS: VITAMINS A AND D 56.7 GM TUBE TP SCH ×4 (08:52→21:05)
[2017-06-04] MEDS: Z GUARD REMEDY 4 OZ OINT TP SCH ×2 (08:52→21:05)
[2017-06-04] MEDS: NEOMY SULF/BACITRAC ZN/POLY 15 GM TUBE TP SCH ×2 (08:53→21:05)
[2017-06-04] MEDS: CLOTRIMAZOLE 1% TP SCH (10:15)
[2017-06-04] MEDS: DICLOFENAC TOPICAL 100 GM GEL..GM. TP SCH ×2 (10:15→17:22)
[2017-06-04] MEDS: HYDROGEN PEROXIDE 480 ML BOTTLE TP SCH ×2 (10:30→21:05)
[2017-06-04] MEDS: PRUNE JUICE GT SCH (11:00)
[2017-06-04 20:03] VITALS: BP 133/79
[2017-06-04] MEDS: METHYLNALTREXONE BROMIDE 12 MG/0.6 ML VIAL SQ SCH (21:04)
[2017-06-04] MEDS: PROSOURCE / PROSTAT (PYXIS) 30 ML UDC GT SCH (21:04)
[2017-06-04] MEDS: PRAVASTATIN SODIUM 20 MG TABLET GT SCH (21:05)
[2017-06-04] MEDS: LORATADINE 10 MG TABLET GT SCH (21:05)
[2017-06-04] MEDS: LATANOPROST EYE DROP 0.005% 2.5 ML BOTTLE EACHEYE SCH (21:05)
[2017-06-05] MEDS: ALBUTEROL HALF STRENGTH 1.25 MG/3 ML VIAL.NEB NEB SCH ×4 (01:22→19:54)
[2017-06-05] MEDS: FIBERSOURCE HN 1,000 ML BOTTLE GT PRN (04:15)
[2017-06-05] MEDS: CHLORHEXIDINE GLUCONATE 15 ML UDC MM SCH ×2 (05:49→17:40)
[2017-06-05 07:33] VITALS: BP 133/75
[2017-06-05] MEDS: DOXAZOSIN MESYLATE 8 MG GT SCH (08:38)
[2017-06-05] MEDS: HYDROGEN PEROXIDE 480 ML BOTTLE TP SCH ×2 (08:38→21:58)
[2017-06-05] MEDS: CHOLECALCIFEROL (VITAMIN D 3) 400 UNIT TABLET GT SCH ×2 (08:38→21:58)
[2017-06-05] MEDS: CLOTRIMAZOLE 1% TP SCH (08:38)
[2017-06-05] MEDS: POTASSIUM CHLORIDE 10 MEQ GT SCH (08:38)
[2017-06-05] MEDS: RIFAXIMIN 550 MG TABLET PO SCH ×2 (08:38→17:40)
[2017-06-05] MEDS: FINASTERIDE (5 MG) 5 MG TABLET GT SCH (08:38)
[2017-06-05] MEDS: ASPIRIN 81 MG TAB.CHEW GT SCH (08:38)
[2017-06-05] MEDS: NEOMY SULF/BACITRAC ZN/POLY 15 GM TUBE TP SCH ×2 (08:39→21:58)
[2017-06-05] MEDS: VITAMINS A AND D 56.7 GM TUBE TP SCH ×4 (08:39→21:59)
[2017-06-05] MEDS: DICLOFENAC TOPICAL 100 GM GEL..GM. TP SCH ×2 (08:39→17:40)
[2017-06-05] MEDS: Z GUARD REMEDY 4 OZ OINT TP SCH ×2 (08:39→21:58)
[2017-06-05] MEDS: PRUNE JUICE GT SCH (11:00)
[2017-06-05] MEDS: HYDROCODONE/APAP 7.5/325MG 1 EACH TABLET GT PRN ×2 (12:35)
[2017-06-05 19:52] VITALS: BP 125/73
[2017-06-05] MEDS: PROSOURCE / PROSTAT (PYXIS) 30 ML UDC GT SCH (21:58)
[2017-06-05] MEDS: METHYLNALTREXONE BROMIDE 12 MG/0.6 ML VIAL SQ SCH (21:58)
[2017-06-05] MEDS: LATANOPROST EYE DROP 0.005% 2.5 ML BOTTLE EACHEYE SCH (21:59)
[2017-06-05] MEDS: LORATADINE 10 MG TABLET GT SCH (21:59)
[2017-06-05] MEDS: PRAVASTATIN SODIUM 20 MG TABLET GT SCH (21:59)
[2017-06-06] MEDS: FIBERSOURCE HN 1,000 ML BOTTLE GT PRN ×2 (00:24→18:29)
[2017-06-06] MEDS: ALBUTEROL HALF STRENGTH 1.25 MG/3 ML VIAL.NEB NEB SCH ×4 (01:13→19:49)
[2017-06-06] MEDS: CHLORHEXIDINE GLUCONATE 15 ML UDC MM SCH ×2 (05:31→18:25)
[2017-06-06] MEDS: MAGNESIUM HYDROXIDE 30 ML UDC GT PRN (06:43)
[2017-06-06 07:30] VITALS: BP 116/59
[2017-06-06 07:32] VITALS: BP 98/59
[2017-06-06] MEDS: FINASTERIDE (5 MG) 5 MG TABLET GT SCH (08:06)
[2017-06-06] MEDS: CHOLECALCIFEROL (VITAMIN D 3) 400 UNIT TABLET GT SCH ×2 (08:06→20:51)
[2017-06-06] MEDS: DOXAZOSIN MESYLATE 8 MG GT SCH (08:06)
[2017-06-06] MEDS: POTASSIUM CHLORIDE 10 MEQ GT SCH (08:06)
[2017-06-06] MEDS: RIFAXIMIN 550 MG TABLET PO SCH ×2 (08:06→16:45)
[2017-06-06] MEDS: ASPIRIN 81 MG TAB.CHEW GT SCH (08:06)
[2017-06-06] MEDS: CLOTRIMAZOLE 1% TP SCH (08:07)
[2017-06-06] MEDS: VITAMINS A AND D 56.7 GM TUBE TP SCH ×4 (09:00→20:53)
[2017-06-06] MEDS: Z GUARD REMEDY 4 OZ OINT TP SCH ×2 (09:00→20:53)
[2017-06-06] MEDS: DICLOFENAC TOPICAL 100 GM GEL..GM. TP SCH ×2 (09:00→16:45)
[2017-06-06] MEDS: HYDROGEN PEROXIDE 480 ML BOTTLE TP SCH ×2 (09:00→20:53)
[2017-06-06] MEDS: NEOMY SULF/BACITRAC ZN/POLY 15 GM TUBE TP SCH ×2 (09:00→20:53)
[2017-06-06] MEDS: PRUNE JUICE GT SCH (11:00)
[2017-06-06] MEDS: HYDROCODONE/APAP 7.5/325MG 1 EACH TABLET GT PRN (20:07)
[2017-06-06 20:27] VITALS: BP 124/74
[2017-06-06] MEDS: PROSOURCE / PROSTAT (PYXIS) 30 ML UDC GT SCH (20:51)
[2017-06-06] MEDS: LORATADINE 10 MG TABLET GT SCH (20:52)
[2017-06-06] MEDS: METHYLNALTREXONE BROMIDE 12 MG/0.6 ML VIAL SQ SCH (20:52)
[2017-06-06] MEDS: PRAVASTATIN SODIUM 20 MG TABLET GT SCH (21:53)
[2017-06-06] MEDS: LATANOPROST EYE DROP 0.005% 2.5 ML BOTTLE EACHEYE SCH (21:59)
[2017-06-07] MEDS: ALBUTEROL HALF STRENGTH 1.25 MG/3 ML VIAL.NEB NEB SCH ×4 (01:09→19:30)
[2017-06-07] MEDS: CHLORHEXIDINE GLUCONATE 15 ML UDC MM SCH ×2 (05:57→17:34)
[2017-06-07] MEDS: ASPIRIN 81 MG TAB.CHEW GT SCH (08:06)
[2017-06-07] MEDS: VITAMINS A AND D 56.7 GM TUBE TP SCH ×4 (08:07→20:15)
[2017-06-07] MEDS: Z GUARD REMEDY 4 OZ OINT TP SCH ×2 (08:07→20:15)
[2017-06-07] MEDS: DOXAZOSIN MESYLATE 8 MG GT SCH (08:07)
[2017-06-07] MEDS: RIFAXIMIN 550 MG TABLET PO SCH ×2 (08:07→17:34)
[2017-06-07] MEDS: FINASTERIDE (5 MG) 5 MG TABLET GT SCH (08:07)
[2017-06-07] MEDS: HYDROGEN PEROXIDE 480 ML BOTTLE TP SCH ×2 (08:07→20:15)
[2017-06-07] MEDS: CLOTRIMAZOLE 1% TP SCH (08:07)
[2017-06-07] MEDS: NEOMY SULF/BACITRAC ZN/POLY 15 GM TUBE TP SCH ×2 (08:07→20:15)
[2017-06-07] MEDS: CHOLECALCIFEROL (VITAMIN D 3) 400 UNIT TABLET GT SCH ×2 (08:07→20:14)
[2017-06-07] MEDS: POTASSIUM CHLORIDE 10 MEQ GT SCH (08:07)
[2017-06-07 08:08] VITALS: BP 147/85
[2017-06-07] MEDS: DICLOFENAC TOPICAL 100 GM GEL..GM. TP SCH ×2 (08:08→17:34)
[2017-06-07] MEDS: PRUNE JUICE GT SCH (11:00)
--- NOTE | 2017-06-07 16:33 | NUR ---
SUBACUTE/ROLFER: RECEIVED ORDERS FROM TO DISCONTINUE SEROQUEL GDR. ORDER FAXED TO [facility] AND [facility].
[2017-06-07] MEDS: FIBERSOURCE HN 1,000 ML BOTTLE GT PRN (18:03)
[2017-06-07 19:57] VITALS: BP 130/79
[2017-06-07] MEDS: HYDROCODONE/APAP 7.5/325MG 1 EACH TABLET GT PRN (20:00)
[2017-06-07] MEDS: METHYLNALTREXONE BROMIDE 12 MG/0.6 ML VIAL SQ SCH (20:14)
[2017-06-07] MEDS: PROSOURCE / PROSTAT (PYXIS) 30 ML UDC GT SCH (20:14)
[2017-06-07] MEDS: LATANOPROST EYE DROP 0.005% 2.5 ML BOTTLE EACHEYE SCH (21:46)
[2017-06-07] MEDS: PRAVASTATIN SODIUM 20 MG TABLET GT SCH (21:46)
[2017-06-07] MEDS: LORATADINE 10 MG TABLET GT SCH (21:46)
[2017-06-08] MEDS: ALBUTEROL HALF STRENGTH 1.25 MG/3 ML VIAL.NEB NEB SCH ×4 (02:12→20:26)
[2017-06-08] MEDS: CHLORHEXIDINE GLUCONATE 15 ML UDC MM SCH ×2 (06:07→17:06)
[2017-06-08 07:41] VITALS: BP 120/78
[2017-06-08] MEDS: FINASTERIDE (5 MG) 5 MG TABLET GT SCH (08:19)
[2017-06-08] MEDS: ASPIRIN 81 MG TAB.CHEW GT SCH (08:19)
[2017-06-08] MEDS: POTASSIUM CHLORIDE 10 MEQ GT SCH (08:19)
[2017-06-08] MEDS: CHOLECALCIFEROL (VITAMIN D 3) 400 UNIT TABLET GT SCH ×2 (08:19→21:02)
[2017-06-08] MEDS: HYDROGEN PEROXIDE 480 ML BOTTLE TP SCH ×2 (08:19→21:03)
[2017-06-08] MEDS: DOXAZOSIN MESYLATE 8 MG GT SCH (08:19)
[2017-06-08] MEDS: CLOTRIMAZOLE 1% TP SCH (08:19)
[2017-06-08] MEDS: RIFAXIMIN 550 MG TABLET PO SCH ×2 (08:19→17:06)
[2017-06-08] MEDS: Z GUARD REMEDY 4 OZ OINT TP SCH ×2 (08:20→21:03)
[2017-06-08] MEDS: NEOMY SULF/BACITRAC ZN/POLY 15 GM TUBE TP SCH ×2 (08:20→21:03)
[2017-06-08] MEDS: DICLOFENAC TOPICAL 100 GM GEL..GM. TP SCH ×2 (08:20→17:06)
[2017-06-08] MEDS: VITAMINS A AND D 56.7 GM TUBE TP SCH ×4 (08:20→21:03)
[2017-06-08] MEDS: PRUNE JUICE GT SCH (11:00)
[2017-06-08] MEDS: HYDROCODONE/APAP 7.5/325MG 1 EACH TABLET GT PRN (13:53)
--- NOTE | 2017-06-08 19:30 | NUR ---
STACEY RN INITIAL NOTES RECEIVED PATIENT AWAKE, ALERT, AT BEDSIDE. NO RESPIRATORY DISTRESS NOTED. WITH GT PATENT AND INTACT, WITH GT RESIDUAL 150ML. NO N/V NOTED. ABDOMEN SOFT AND NON-TENDER. WILL CONTINUE TO MONITOR. Addendum: 06/09/17 at 0659 by ESTEFANI BECKMAN RN ADD TO NOTE: PER REQUEST. DON'T ADMINISTER PATIENT ROUTINE WATER FLUSHES.
[2017-06-08 19:59] VITALS: BP 138/84
--- NOTE | 2017-06-08 21:00 | NUR ---
WITH RESIDUAL 150ML, PER ORDER HOLD IF RESIDUAL GREATER THAN 250ML AND CALL PHYSICIAN. NO N/V NOTED. WILL CONTINUE TO MONITOR.
[2017-06-08] MEDS: PROSOURCE / PROSTAT (PYXIS) 30 ML UDC GT SCH (21:01)
[2017-06-08] MEDS: METHYLNALTREXONE BROMIDE 12 MG/0.6 ML VIAL SQ SCH (21:02)
[2017-06-08] MEDS: PRAVASTATIN SODIUM 20 MG TABLET GT SCH (21:03)
[2017-06-08] MEDS: LORATADINE 10 MG TABLET GT SCH (21:03)
[2017-06-08] MEDS: LATANOPROST EYE DROP 0.005% 2.5 ML BOTTLE EACHEYE SCH (21:03)
[2017-06-09] MEDS: ALBUTEROL HALF STRENGTH 1.25 MG/3 ML VIAL.NEB NEB SCH ×4 (01:47→20:05)
[2017-06-09] MEDS: CHLORHEXIDINE GLUCONATE 15 ML UDC MM SCH ×2 (05:02→18:13)
--- NOTE | 2017-06-09 06:57 | NUR ---
STACEY RN CLOSING NOTES PATIENT WITH RESIDUAL 150ML, NO N/V NOTED. NO S/S OF PAIN OR DISCOMFORT. NO RESPIRATORY DISTRESS NOTED. KEPT CLEAN AND DRY. TURNED AND REPOSITIONED Q2 AND PRN. WILL ENDORSE CONTINUITY OF CARE TO AM NURSE.
[2017-06-09] MEDS: DOXAZOSIN MESYLATE 8 MG GT SCH (08:31)
[2017-06-09] MEDS: CHOLECALCIFEROL (VITAMIN D 3) 400 UNIT TABLET GT SCH ×2 (08:31→21:02)
[2017-06-09] MEDS: POTASSIUM CHLORIDE 10 MEQ GT SCH (08:31)
[2017-06-09] MEDS: CLOTRIMAZOLE 1% TP SCH (08:31)
[2017-06-09] MEDS: ASPIRIN 81 MG TAB.CHEW GT SCH (08:31)
[2017-06-09] MEDS: FINASTERIDE (5 MG) 5 MG TABLET GT SCH (08:31)
[2017-06-09] MEDS: RIFAXIMIN 550 MG TABLET PO SCH ×2 (08:31→17:00)
[2017-06-09] MEDS: VITAMINS A AND D 56.7 GM TUBE TP SCH ×4 (08:32→21:02)
[2017-06-09] MEDS: Z GUARD REMEDY 4 OZ OINT TP SCH ×2 (08:32→21:02)
[2017-06-09] MEDS: NEOMY SULF/BACITRAC ZN/POLY 15 GM TUBE TP SCH (08:32)
[2017-06-09] MEDS: HYDROGEN PEROXIDE 480 ML BOTTLE TP SCH ×2 (08:32→21:02)
[2017-06-09] MEDS: DICLOFENAC TOPICAL 100 GM GEL..GM. TP SCH ×2 (08:32→17:00)
[2017-06-09] MEDS: PRUNE JUICE GT SCH (11:42)
--- NOTE | 2017-06-09 13:33 | NUR ---
Subacute family support group meeting was held today at 11AM. Resident's was able to share her concerns with the SW and the subacute inbound sales manager, who was present for the meeting. addressed her feelings about staff rotation, resident's feeding, and availability of staff. Subacute inbound sales manager will monitor the resident's feeding and resident will have a dietary consultation to make sure he is getting the right amount of nutrients.
[2017-06-09 20:00] VITALS: BP 126/79
[2017-06-09] MEDS: PROSOURCE / PROSTAT (PYXIS) 30 ML UDC GT SCH (21:02)
[2017-06-09] MEDS: LORATADINE 10 MG TABLET GT SCH (21:02)
[2017-06-09] MEDS: METHYLNALTREXONE BROMIDE 12 MG/0.6 ML VIAL SQ SCH (21:02)
[2017-06-09] MEDS: LATANOPROST EYE DROP 0.005% 2.5 ML BOTTLE EACHEYE SCH (21:02)
[2017-06-09] MEDS: PRAVASTATIN SODIUM 20 MG TABLET GT SCH (21:02)
[2017-06-09] MEDS: FIBERSOURCE HN 1,000 ML BOTTLE GT PRN (21:55)
[2017-06-10] MEDS: ALBUTEROL HALF STRENGTH 1.25 MG/3 ML VIAL.NEB NEB SCH ×4 (01:56→19:32)
[2017-06-10] MEDS: CHLORHEXIDINE GLUCONATE 15 ML UDC MM SCH ×2 (05:40→16:40)
[2017-06-10] MEDS: MAGNESIUM HYDROXIDE 30 ML UDC GT PRN (06:42)
[2017-06-10 07:45] VITALS: BP 124/79
[2017-06-10] MEDS: HYDROGEN PEROXIDE 480 ML BOTTLE TP SCH ×2 (08:36→21:24)
[2017-06-10] MEDS: DOXAZOSIN MESYLATE 8 MG GT SCH (08:36)
[2017-06-10] MEDS: RIFAXIMIN 550 MG TABLET PO SCH ×2 (08:36→16:39)
[2017-06-10] MEDS: FINASTERIDE (5 MG) 5 MG TABLET GT SCH (08:36)
[2017-06-10] MEDS: ASPIRIN 81 MG TAB.CHEW GT SCH (08:36)
[2017-06-10] MEDS: POTASSIUM CHLORIDE 10 MEQ GT SCH (08:36)
[2017-06-10] MEDS: CLOTRIMAZOLE 1% TP SCH (08:36)
[2017-06-10] MEDS: CHOLECALCIFEROL (VITAMIN D 3) 400 UNIT TABLET GT SCH ×2 (08:36→21:24)
[2017-06-10] MEDS: VITAMINS A AND D 56.7 GM TUBE TP SCH ×4 (08:37→21:24)
[2017-06-10] MEDS: DICLOFENAC TOPICAL 100 GM GEL..GM. TP SCH ×2 (08:37→16:40)
[2017-06-10] MEDS: Z GUARD REMEDY 4 OZ OINT TP SCH ×2 (08:37→21:24)
[2017-06-10] MEDS: ACETAMINOPHEN 650 MG/20 ML UDC- FOR SA PATIENTS ONLY GT PRN (09:10)
[2017-06-10] MEDS: PRUNE JUICE GT SCH (11:00)
--- NOTE | 2017-06-10 12:43 | NUR ---
Pt's G-tube came out and it was replaced immediately. Notified Dr. Edwards and received order to do KUB to verify GT placement. Notified pt's . Also notified Dr. Edwards that is concerned about 6-lb weight loss since March. Dr. Edwards said to do dietary consult, but pt's refused consult. She said to just make sure the pt receives the complete feeding dose per day. Pt out of bed for several hours a day, ambulating and sitting up in wheelchair in the activity room. She said if pt continues to lose weight, then refer to diversional therapist's assistant for consult. Addendum: 06/10/17 at 1248 by ROSEANNA HARRISON RN Notified Dr. Edwards that refused dietary consult.
--- NOTE | 2017-06-10 12:45 | NUR ---
SKIP assisted charge nurse in translating for the resident's . Informed her that dietary consult was ordered to address the 's concern about 6lb weight loss. Resident's informed that this is because the feeding machine is not being turned on once it has been turned off when the resident is out of the room. Charge nurse stated that fisheries specialist can help evaluate resident's current feeding schedule but stated that she does not want to make any changes. She stated that she just wants to make sure that the machine is being turned back on and that she will monitor his weight and feeding rates. She stated that no dietary consult is needed and stated that if resident does not gain weight, consult for dietary can then be completed.
[2017-06-10] MEDS ORDERED: DIATR MEGLU/DIATRIZOATE SODIUM 30 ML BOTTLE (GASTROGRAPHIN) ONE (13:38)
--- NOTE | 2017-06-10 14:55 | NUR ---
Relayed KUB result to Dr. Edwards. Resumed GT feeding and use of GT for medications.
[2017-06-10 20:07] VITALS: BP 129/78
[2017-06-10] MEDS: METHYLNALTREXONE BROMIDE 12 MG/0.6 ML VIAL SQ SCH (21:24)
[2017-06-10] MEDS: PROSOURCE / PROSTAT (PYXIS) 30 ML UDC GT SCH (21:24)
[2017-06-10] MEDS: LATANOPROST EYE DROP 0.005% 2.5 ML BOTTLE EACHEYE SCH (21:24)
[2017-06-10] MEDS: HYDROCODONE/APAP 7.5/325MG 1 EACH TABLET GT PRN (21:25)
[2017-06-10] MEDS: LORATADINE 10 MG TABLET GT SCH (21:25)
[2017-06-10] MEDS: PRAVASTATIN SODIUM 20 MG TABLET GT SCH (21:25)
[2017-06-10] MEDS: FIBERSOURCE HN 1,000 ML BOTTLE GT PRN (21:37)
[2017-06-11] MEDS: ALBUTEROL HALF STRENGTH 1.25 MG/3 ML VIAL.NEB NEB SCH ×4 (01:52→19:44)
[2017-06-11] MEDS: CHLORHEXIDINE GLUCONATE 15 ML UDC MM SCH ×2 (05:39→17:05)
[2017-06-11 07:25] VITALS: BP 124/78
[2017-06-11] MEDS: DICLOFENAC TOPICAL 100 GM GEL..GM. TP SCH ×2 (08:03→17:05)
[2017-06-11] MEDS: Z GUARD REMEDY 4 OZ OINT TP SCH ×2 (08:03→21:05)
[2017-06-11] MEDS: VITAMINS A AND D 56.7 GM TUBE TP SCH ×4 (08:03→21:05)
[2017-06-11] MEDS: CHOLECALCIFEROL (VITAMIN D 3) 400 UNIT TABLET GT SCH ×2 (08:04→21:05)
[2017-06-11] MEDS: RIFAXIMIN 550 MG TABLET PO SCH ×2 (08:04→17:05)
[2017-06-11] MEDS: ASPIRIN 81 MG TAB.CHEW GT SCH (08:04)
[2017-06-11] MEDS: HYDROGEN PEROXIDE 480 ML BOTTLE TP SCH ×2 (08:04→21:05)
[2017-06-11] MEDS: CLOTRIMAZOLE 1% TP SCH (08:04)
[2017-06-11] MEDS: POTASSIUM CHLORIDE 10 MEQ GT SCH (08:04)
[2017-06-11] MEDS: FINASTERIDE (5 MG) 5 MG TABLET GT SCH (08:04)
[2017-06-11] MEDS: DOXAZOSIN MESYLATE 8 MG GT SCH (08:04)
[2017-06-11] MEDS: HYDROCODONE/APAP 7.5/325MG 1 EACH TABLET GT PRN ×2 (09:29→16:09)
--- NOTE | 2017-06-11 10:59 | NUR ---
Social Service Section of [facility] assessment (annual) completed. Resident has a trach and g-tube for feeding. would like for resident to remain in the facility until stable for discharge and would eventually like to take him home. Resident's and his daughter's are his conservators. Resident was seen by the communications tower climber Dr. Holliday on 09/01/2016, the real estate subagent Dr. Morales on 05/12/2017, and he received his annual dental exam and cleaning on 05/17/[address] Jose Alberto ASTORGA.
[2017-06-11] MEDS: PRUNE JUICE GT SCH ×2 (11:00→12:34)
--- NOTE | 2017-06-11 11:00 | NUR ---
Seen and examined by Lesli with no new orders.
[2017-06-11 19:24] VITALS: BP 132/72
[2017-06-11] MEDS: FIBERSOURCE HN 1,000 ML BOTTLE GT PRN (20:17)
[2017-06-11] MEDS: LORATADINE 10 MG TABLET GT SCH (21:05)
[2017-06-11] MEDS: METHYLNALTREXONE BROMIDE 12 MG/0.6 ML VIAL SQ SCH (21:05)
[2017-06-11] MEDS: LATANOPROST EYE DROP 0.005% 2.5 ML BOTTLE EACHEYE SCH (21:05)
[2017-06-11] MEDS: PROSOURCE / PROSTAT (PYXIS) 30 ML UDC GT SCH (21:05)
[2017-06-11] MEDS: PRAVASTATIN SODIUM 20 MG TABLET GT SCH (21:06)
[2017-06-12] MEDS: HYDROCODONE/APAP 7.5/325MG 1 EACH TABLET GT PRN ×2 (00:41→08:34)
[2017-06-12] MEDS: ALBUTEROL HALF STRENGTH 1.25 MG/3 ML VIAL.NEB NEB SCH ×4 (01:19→20:23)
[2017-06-12] MEDS: CHLORHEXIDINE GLUCONATE 15 ML UDC MM SCH ×2 (05:46→17:10)
[2017-06-12 07:57] VITALS: BP 132/72
[2017-06-12] MEDS: ASPIRIN 81 MG TAB.CHEW GT SCH (08:17)
[2017-06-12] MEDS: DOXAZOSIN MESYLATE 8 MG GT SCH (08:17)
[2017-06-12] MEDS: POTASSIUM CHLORIDE 10 MEQ GT SCH (08:18)
[2017-06-12] MEDS: FINASTERIDE (5 MG) 5 MG TABLET GT SCH (08:19)
[2017-06-12] MEDS: CHOLECALCIFEROL (VITAMIN D 3) 400 UNIT TABLET GT SCH ×2 (08:20→21:00)
[2017-06-12] MEDS: Z GUARD REMEDY 4 OZ OINT TP SCH ×2 (08:20→21:00)
[2017-06-12] MEDS: RIFAXIMIN 550 MG TABLET PO SCH ×2 (08:20→16:50)
[2017-06-12] MEDS: DICLOFENAC TOPICAL 100 GM GEL..GM. TP SCH ×2 (08:20→16:50)
[2017-06-12] MEDS: VITAMINS A AND D 56.7 GM TUBE TP SCH ×4 (10:00→21:00)
[2017-06-12] MEDS: HYDROGEN PEROXIDE 480 ML BOTTLE TP SCH ×2 (10:00→21:00)
[2017-06-12] MEDS: CLOTRIMAZOLE 1% TP SCH (10:00)
[2017-06-12] MEDS: PRUNE JUICE GT SCH (11:00)
[2017-06-12] MEDS: FIBERSOURCE HN 1,000 ML BOTTLE GT PRN (19:30)
[2017-06-12 19:36] VITALS: BP 116/59
[2017-06-12] MEDS: METHYLNALTREXONE BROMIDE 12 MG/0.6 ML VIAL SQ SCH ×2 (21:00→22:41)
[2017-06-12] MEDS: PROSOURCE / PROSTAT (PYXIS) 30 ML UDC GT SCH (21:00)
[2017-06-12] MEDS: LATANOPROST EYE DROP 0.005% 2.5 ML BOTTLE EACHEYE SCH (22:20)
[2017-06-12] MEDS: PRAVASTATIN SODIUM 20 MG TABLET GT SCH (22:28)
[2017-06-12] MEDS: LORATADINE 10 MG TABLET GT SCH (22:28)
[2017-06-13] MEDS: ALBUTEROL HALF STRENGTH 1.25 MG/3 ML VIAL.NEB NEB SCH ×4 (01:43→19:47)
[2017-06-13] MEDS: CHLORHEXIDINE GLUCONATE 15 ML UDC MM SCH ×2 (06:22→17:09)
--- NOTE | 2017-06-13 07:00 | NUR ---
SLEPT AT GOOD INTERVALS. AM CARE DONE BY THE NUTRITION EDUCATOR.FEEDING ON PROGRESS.
[2017-06-13] MEDS: DOXAZOSIN MESYLATE 8 MG GT SCH (08:01)
[2017-06-13] MEDS: CLOTRIMAZOLE 1% TP SCH (08:01)
[2017-06-13] MEDS: RIFAXIMIN 550 MG TABLET PO SCH ×2 (08:01→17:08)
[2017-06-13] MEDS: CHOLECALCIFEROL (VITAMIN D 3) 400 UNIT TABLET GT SCH ×2 (08:01→21:19)
[2017-06-13] MEDS: FINASTERIDE (5 MG) 5 MG TABLET GT SCH (08:01)
[2017-06-13] MEDS: Z GUARD REMEDY 4 OZ OINT TP SCH ×2 (08:01→21:19)
[2017-06-13] MEDS: HYDROGEN PEROXIDE 480 ML BOTTLE TP SCH ×2 (08:01→21:19)
[2017-06-13] MEDS: POTASSIUM CHLORIDE 10 MEQ GT SCH (08:01)
[2017-06-13] MEDS: ASPIRIN 81 MG TAB.CHEW GT SCH (08:01)
[2017-06-13] MEDS: VITAMINS A AND D 56.7 GM TUBE TP SCH ×4 (08:02→21:19)
[2017-06-13] MEDS: DICLOFENAC TOPICAL 100 GM GEL..GM. TP SCH ×2 (08:02→17:09)
[2017-06-13 08:25] VITALS: BP 128/73
[2017-06-13] MEDS: PRUNE JUICE GT SCH (11:00)
[2017-06-13] MEDS: FIBERSOURCE HN 1,000 ML BOTTLE GT PRN (14:03)
[2017-06-13 20:06] VITALS: BP 138/82
[2017-06-13] MEDS: PRAVASTATIN SODIUM 20 MG TABLET GT SCH (21:19)
[2017-06-13] MEDS: PROSOURCE / PROSTAT (PYXIS) 30 ML UDC GT SCH (21:19)
[2017-06-13] MEDS: LATANOPROST EYE DROP 0.005% 2.5 ML BOTTLE EACHEYE SCH (21:19)
[2017-06-13] MEDS: LORATADINE 10 MG TABLET GT SCH (21:19)
[2017-06-13] MEDS: HYDROCODONE/APAP 7.5/325MG 1 EACH TABLET GT PRN (21:20)
[2017-06-14] MEDS: ALBUTEROL HALF STRENGTH 1.25 MG/3 ML VIAL.NEB NEB SCH ×4 (02:03→20:31)
[2017-06-14] MEDS: CHLORHEXIDINE GLUCONATE 15 ML UDC MM SCH ×2 (06:07→17:19)
[2017-06-14 07:40] VITALS: BP 136/78
[2017-06-14] MEDS: ASPIRIN 81 MG TAB.CHEW GT SCH (09:44)
[2017-06-14] MEDS: CHOLECALCIFEROL (VITAMIN D 3) 400 UNIT TABLET GT SCH ×2 (09:44→21:25)
[2017-06-14] MEDS: POTASSIUM CHLORIDE 10 MEQ GT SCH (09:44)
[2017-06-14] MEDS: DOXAZOSIN MESYLATE 8 MG GT SCH (09:44)
[2017-06-14] MEDS: FINASTERIDE (5 MG) 5 MG TABLET GT SCH (09:44)
[2017-06-14] MEDS: RIFAXIMIN 550 MG TABLET PO SCH ×2 (09:44→16:40)
[2017-06-14] MEDS: CLOTRIMAZOLE 1% TP SCH (09:52)
[2017-06-14] MEDS: HYDROGEN PEROXIDE 480 ML BOTTLE TP SCH ×2 (09:53→21:25)
[2017-06-14] MEDS: Z GUARD REMEDY 4 OZ OINT TP SCH ×2 (09:53→21:25)
[2017-06-14] MEDS: VITAMINS A AND D 56.7 GM TUBE TP SCH ×4 (09:53→21:25)
[2017-06-14] MEDS: DICLOFENAC TOPICAL 100 GM GEL..GM. TP SCH ×2 (09:53→16:39)
[2017-06-14] MEDS: PRUNE JUICE GT SCH (11:51)
[2017-06-14] MEDS: HYDROCODONE/APAP 7.5/325MG 1 EACH TABLET GT PRN (17:21)
[2017-06-14 20:11] VITALS: BP 131/57
[2017-06-14] MEDS: LORATADINE 10 MG TABLET GT SCH (21:25)
[2017-06-14] MEDS: LATANOPROST EYE DROP 0.005% 2.5 ML BOTTLE EACHEYE SCH (21:25)
[2017-06-14] MEDS: METHYLNALTREXONE BROMIDE 12 MG/0.6 ML VIAL SQ SCH (21:25)
[2017-06-14] MEDS: PRAVASTATIN SODIUM 20 MG TABLET GT SCH (21:25)
[2017-06-14] MEDS: PROSOURCE / PROSTAT (PYXIS) 30 ML UDC GT SCH (21:25)
[2017-06-15] MEDS: ALBUTEROL HALF STRENGTH 1.25 MG/3 ML VIAL.NEB NEB SCH ×4 (02:04→18:58)
[2017-06-15] MEDS: HYDROCODONE/APAP 7.5/325MG 1 EACH TABLET GT PRN ×3 (02:44→22:26)
[2017-06-15] MEDS: CHLORHEXIDINE GLUCONATE 15 ML UDC MM SCH ×2 (06:09→17:15)
[2017-06-15 07:44] VITALS: BP 135/76
[2017-06-15] MEDS: DOXAZOSIN MESYLATE 8 MG GT SCH (08:26)
[2017-06-15] MEDS: CHOLECALCIFEROL (VITAMIN D 3) 400 UNIT TABLET GT SCH ×2 (08:26→21:13)
[2017-06-15] MEDS: FINASTERIDE (5 MG) 5 MG TABLET GT SCH (08:26)
[2017-06-15] MEDS: CLOTRIMAZOLE 1% TP SCH (08:26)
[2017-06-15] MEDS: POTASSIUM CHLORIDE 10 MEQ GT SCH (08:26)
[2017-06-15] MEDS: Z GUARD REMEDY 4 OZ OINT TP SCH ×2 (08:26→21:14)
[2017-06-15] MEDS: RIFAXIMIN 550 MG TABLET PO SCH ×2 (08:26→16:26)
[2017-06-15] MEDS: HYDROGEN PEROXIDE 480 ML BOTTLE TP SCH ×2 (08:26→21:14)
[2017-06-15] MEDS: ASPIRIN 81 MG TAB.CHEW GT SCH (08:26)
[2017-06-15] MEDS: VITAMINS A AND D 56.7 GM TUBE TP SCH ×4 (08:27→21:14)
[2017-06-15] MEDS: DICLOFENAC TOPICAL 100 GM GEL..GM. TP SCH ×2 (08:27→16:26)
[2017-06-15] MEDS: ACETAMINOPHEN 650 MG/20 ML UDC- FOR SA PATIENTS ONLY GT PRN (09:20)
[2017-06-15] MEDS: PRUNE JUICE GT SCH (11:00)
[2017-06-15] MEDS ORDERED: SUMATRIPTAN SUCCINATE 25 MG TABLET GT PRN (14:30)
[2017-06-15 19:10] VITALS: BP 147/78
[2017-06-15] MEDS: METHYLNALTREXONE BROMIDE 12 MG/0.6 ML VIAL SQ SCH (21:13)
[2017-06-15] MEDS: PROSOURCE / PROSTAT (PYXIS) 30 ML UDC GT SCH (21:13)
[2017-06-15] MEDS: PRAVASTATIN SODIUM 20 MG TABLET GT SCH (21:14)
[2017-06-15] MEDS: LORATADINE 10 MG TABLET GT SCH (21:14)
[2017-06-15] MEDS: LATANOPROST EYE DROP 0.005% 2.5 ML BOTTLE EACHEYE SCH (21:14)
[2017-06-16] MEDS: ALBUTEROL HALF STRENGTH 1.25 MG/3 ML VIAL.NEB NEB SCH ×4 (01:24→19:39)
[2017-06-16] MEDS: CHLORHEXIDINE GLUCONATE 15 ML UDC MM SCH ×2 (05:35→17:53)
[2017-06-16 08:00] VITALS: BP 116/72
[2017-06-16] MEDS: RIFAXIMIN 550 MG TABLET PO SCH ×2 (09:00→18:07)
[2017-06-16] MEDS: Z GUARD REMEDY 4 OZ OINT TP SCH ×2 (09:00→21:26)
[2017-06-16] MEDS: POTASSIUM CHLORIDE 10 MEQ GT SCH (09:00)
[2017-06-16] MEDS: HYDROGEN PEROXIDE 480 ML BOTTLE TP SCH ×2 (09:00→21:26)
[2017-06-16] MEDS: CHOLECALCIFEROL (VITAMIN D 3) 400 UNIT TABLET GT SCH ×2 (09:00→21:26)
[2017-06-16] MEDS: ASPIRIN 81 MG TAB.CHEW GT SCH (09:00)
[2017-06-16] MEDS: CLOTRIMAZOLE 1% TP SCH (09:00)
[2017-06-16] MEDS: DICLOFENAC TOPICAL 100 GM GEL..GM. TP SCH ×2 (09:00→17:53)
[2017-06-16] MEDS: FINASTERIDE (5 MG) 5 MG TABLET GT SCH (09:00)
[2017-06-16] MEDS: VITAMINS A AND D 56.7 GM TUBE TP SCH ×4 (09:00→21:26)
[2017-06-16] MEDS: DOXAZOSIN MESYLATE 8 MG GT SCH (09:00)
[2017-06-16] MEDS: PRUNE JUICE GT SCH (11:55)
[2017-06-16] MEDS: FIBERSOURCE HN 1,000 ML BOTTLE GT PRN (18:07)
[2017-06-16 20:10] VITALS: BP 102/62
[2017-06-16] MEDS: MAGNESIUM HYDROXIDE 30 ML UDC GT PRN (21:00)
[2017-06-16] MEDS: METHYLNALTREXONE BROMIDE 12 MG/0.6 ML VIAL SQ SCH (21:26)
[2017-06-16] MEDS: PRAVASTATIN SODIUM 20 MG TABLET GT SCH (21:26)
[2017-06-16] MEDS: PROSOURCE / PROSTAT (PYXIS) 30 ML UDC GT SCH (21:26)
[2017-06-16] MEDS: LORATADINE 10 MG TABLET GT SCH (21:26)
[2017-06-16] MEDS: LATANOPROST EYE DROP 0.005% 2.5 ML BOTTLE EACHEYE SCH (21:26)
[2017-06-17] MEDS: ALBUTEROL HALF STRENGTH 1.25 MG/3 ML VIAL.NEB NEB SCH ×4 (02:18→19:00)
[2017-06-17] MEDS: CHLORHEXIDINE GLUCONATE 15 ML UDC MM SCH ×2 (05:52→18:46)
[2017-06-17 07:47] VITALS: BP 114/78
[2017-06-17] MEDS: ASPIRIN 81 MG TAB.CHEW GT SCH (09:00)
[2017-06-17] MEDS: FINASTERIDE (5 MG) 5 MG TABLET GT SCH (09:00)
[2017-06-17] MEDS: CLOTRIMAZOLE 1% TP SCH (09:00)
[2017-06-17] MEDS: DICLOFENAC TOPICAL 100 GM GEL..GM. TP SCH ×2 (09:00→17:00)
[2017-06-17] MEDS: POTASSIUM CHLORIDE 10 MEQ GT SCH (09:00)
[2017-06-17] MEDS: HYDROGEN PEROXIDE 480 ML BOTTLE TP SCH ×2 (09:00→20:56)
[2017-06-17] MEDS: Z GUARD REMEDY 4 OZ OINT TP SCH ×2 (09:00→20:56)
[2017-06-17] MEDS: VITAMINS A AND D 56.7 GM TUBE TP SCH ×4 (09:00→20:56)
[2017-06-17] MEDS: DOXAZOSIN MESYLATE 8 MG GT SCH (09:00)
[2017-06-17] MEDS: PRUNE JUICE GT SCH (11:33)
[2017-06-17] MEDS: CHOLECALCIFEROL (VITAMIN D 3) 400 UNIT TABLET GT SCH ×2 (11:39→20:56)
[2017-06-17] MEDS: RIFAXIMIN 550 MG TABLET PO SCH ×2 (11:39→18:46)
--- NOTE | 2017-06-17 15:36 | NUR ---
spoke to SW about some concerns that she was having in terms of the feedings and SALES DATA ANALYST's cleaning her . Sw informed her that CNO still wants to speak with her and she stated that she will let SW know when her daughter is available to come to the hospital. expressed dissatisfaction with rotating SALES DATA ANALYST's and not cleaning to her expectations. Informed subacute manager bank Angela Nance.
[2017-06-17] MEDS: FIBERSOURCE HN 1,000 ML BOTTLE GT PRN (20:02)
[2017-06-17] MEDS: METHYLNALTREXONE BROMIDE 12 MG/0.6 ML VIAL SQ SCH (20:56)
[2017-06-17] MEDS: PROSOURCE / PROSTAT (PYXIS) 30 ML UDC GT SCH (20:56)
[2017-06-17] MEDS: HYDROCODONE/APAP 7.5/325MG 1 EACH TABLET GT PRN (20:57)
[2017-06-17 21:42] VITALS: BP 95/59
[2017-06-17] MEDS: LORATADINE 10 MG TABLET GT SCH (22:04)
[2017-06-17] MEDS: PRAVASTATIN SODIUM 20 MG TABLET GT SCH (22:04)
[2017-06-17] MEDS: LATANOPROST EYE DROP 0.005% 2.5 ML BOTTLE EACHEYE SCH (22:04)
[2017-06-18] MEDS: ALBUTEROL HALF STRENGTH 1.25 MG/3 ML VIAL.NEB NEB SCH ×4 (01:47→20:24)
[2017-06-18] MEDS: CHLORHEXIDINE GLUCONATE 15 ML UDC MM SCH ×2 (06:13→17:13)
[2017-06-18 07:43] VITALS: BP 133/86
[2017-06-18] MEDS: RIFAXIMIN 550 MG TABLET PO SCH ×2 (08:17→17:13)
[2017-06-18] MEDS: FINASTERIDE (5 MG) 5 MG TABLET GT SCH (08:17)
[2017-06-18] MEDS: DOXAZOSIN MESYLATE 8 MG GT SCH (08:18)
[2017-06-18] MEDS: POTASSIUM CHLORIDE 10 MEQ GT SCH (08:18)
[2017-06-18] MEDS: ASPIRIN 81 MG TAB.CHEW GT SCH (08:18)
[2017-06-18] MEDS: CHOLECALCIFEROL (VITAMIN D 3) 400 UNIT TABLET GT SCH ×2 (08:19→21:27)
[2017-06-18] MEDS: HYDROGEN PEROXIDE 480 ML BOTTLE TP SCH ×2 (08:20→21:27)
[2017-06-18] MEDS: DICLOFENAC TOPICAL 100 GM GEL..GM. TP SCH ×2 (08:20→17:13)
[2017-06-18] MEDS: CLOTRIMAZOLE 1% TP SCH (08:20)
[2017-06-18] MEDS: VITAMINS A AND D 56.7 GM TUBE TP SCH ×4 (08:20→21:27)
[2017-06-18] MEDS: Z GUARD REMEDY 4 OZ OINT TP SCH ×2 (08:20→21:27)
--- NOTE | 2017-06-18 10:10 | NUR ---
Resident uses bed alarm which was discussed with while resident listens. Explained alarms have the ability to restrain a resident because the sound could scare them and therefore stop them from making any movement. confirms that bed alarm does not bother Mr Andrew Lopez and it does not it any way prevent him from moving on bed. would like to continue use of bed alarm for safety. Remains on early warning EZ release seatbelt when up in wheelchair which resident continues to be able to remove or release without difficulty on command at this time and the sound it makes does not bother resident as well.
[2017-06-18] MEDS: PRUNE JUICE GT SCH (11:00)
--- NOTE | 2017-06-18 14:00 | NUR ---
INTERDISCIPLINARY TEAM CONFERENCE (IDT) was held today.family member did not attend the meeting ,informed about IDT conference. Dr. Mejia and the interdisciplinary team reviewed the current plan of care in detail. New orders were reviewed. Resident will continue the treatment for onychomycosis and started imitrex 25mg tab Q6H PRN for headache.Responsible green party made aware about the new orders and discussions were made on IDT meeting.spoke to in person.
[2017-06-18] MEDS: FIBERSOURCE HN 1,000 ML BOTTLE GT PRN (18:25)
[2017-06-18] MEDS: METHYLNALTREXONE BROMIDE 12 MG/0.6 ML VIAL SQ SCH (21:27)
[2017-06-18] MEDS: LORATADINE 10 MG TABLET GT SCH (21:27)
[2017-06-18] MEDS: PROSOURCE / PROSTAT (PYXIS) 30 ML UDC GT SCH (21:27)
[2017-06-18] MEDS: LATANOPROST EYE DROP 0.005% 2.5 ML BOTTLE EACHEYE SCH (21:27)
[2017-06-18] MEDS: PRAVASTATIN SODIUM 20 MG TABLET GT SCH (21:27)
[2017-06-18 21:38] VITALS: BP 132/87
[2017-06-18] MEDS: BISACODYL SUPP (10 MG) 10 MG/SUPP.RECT SUPP.RECT RC PRN (21:39)
[2017-06-18] MEDS: HYDROCODONE/APAP 7.5/325MG 1 EACH TABLET GT PRN (21:39)
[2017-06-19] MEDS: ALBUTEROL HALF STRENGTH 1.25 MG/3 ML VIAL.NEB NEB SCH ×4 (02:00→19:30)
[2017-06-19] MEDS: CHLORHEXIDINE GLUCONATE 15 ML UDC MM SCH ×2 (05:52→17:04)
[2017-06-19 07:42] VITALS: BP 126/79
[2017-06-19 07:43] VITALS: BP 126/79
[2017-06-19] MEDS: Z GUARD REMEDY 4 OZ OINT TP SCH ×2 (09:00→21:16)
[2017-06-19] MEDS: DICLOFENAC TOPICAL 100 GM GEL..GM. TP SCH ×2 (09:00→16:17)
[2017-06-19] MEDS: ASPIRIN 81 MG TAB.CHEW GT SCH (09:00)
[2017-06-19] MEDS: DOXAZOSIN MESYLATE 8 MG GT SCH (09:00)
[2017-06-19] MEDS: FINASTERIDE (5 MG) 5 MG TABLET GT SCH (09:00)
[2017-06-19] MEDS: CLOTRIMAZOLE 1% TP SCH (09:00)
[2017-06-19] MEDS: VITAMINS A AND D 56.7 GM TUBE TP SCH ×4 (09:00→21:16)
[2017-06-19] MEDS: CHOLECALCIFEROL (VITAMIN D 3) 400 UNIT TABLET GT SCH ×2 (09:00→21:16)
[2017-06-19] MEDS: HYDROGEN PEROXIDE 480 ML BOTTLE TP SCH ×2 (09:00→21:16)
[2017-06-19] MEDS: POTASSIUM CHLORIDE 10 MEQ GT SCH (09:00)
[2017-06-19] MEDS: RIFAXIMIN 550 MG TABLET PO SCH ×2 (09:23→16:17)
[2017-06-19] MEDS: PRUNE JUICE GT SCH (10:04)
[2017-06-19] MEDS: FIBERSOURCE HN 1,000 ML BOTTLE GT PRN (12:50)
[2017-06-19] MEDS: METHYLNALTREXONE BROMIDE 12 MG/0.6 ML VIAL SQ SCH (21:16)
[2017-06-19] MEDS: LORATADINE 10 MG TABLET GT SCH (21:16)
[2017-06-19] MEDS: PRAVASTATIN SODIUM 20 MG TABLET GT SCH (21:16)
[2017-06-19] MEDS: PROSOURCE / PROSTAT (PYXIS) 30 ML UDC GT SCH (21:16)
[2017-06-19] MEDS: LATANOPROST EYE DROP 0.005% 2.5 ML BOTTLE EACHEYE SCH (21:16)
[2017-06-19 21:56] VITALS: BP 122/86
[2017-06-20] MEDS: ALBUTEROL HALF STRENGTH 1.25 MG/3 ML VIAL.NEB NEB SCH ×4 (01:40→20:04)
[2017-06-20] MEDS: CHLORHEXIDINE GLUCONATE 15 ML UDC MM SCH ×2 (05:08→17:30)
[2017-06-20] MEDS: FIBERSOURCE HN 1,000 ML BOTTLE GT PRN (05:14)
[2017-06-20 07:41] VITALS: BP 122/88
[2017-06-20] MEDS: DICLOFENAC TOPICAL 100 GM GEL..GM. TP SCH ×2 (09:00→17:30)
[2017-06-20] MEDS: Z GUARD REMEDY 4 OZ OINT TP SCH ×2 (09:00→21:20)
[2017-06-20] MEDS: POTASSIUM CHLORIDE 10 MEQ GT SCH (09:00)
[2017-06-20] MEDS: CHOLECALCIFEROL (VITAMIN D 3) 400 UNIT TABLET GT SCH ×2 (09:00→21:20)
[2017-06-20] MEDS: HYDROGEN PEROXIDE 480 ML BOTTLE TP SCH ×2 (09:00→21:20)
[2017-06-20] MEDS: CLOTRIMAZOLE 1% TP SCH (09:00)
[2017-06-20] MEDS: FINASTERIDE (5 MG) 5 MG TABLET GT SCH (09:00)
[2017-06-20] MEDS: VITAMINS A AND D 56.7 GM TUBE TP SCH ×4 (09:00→21:20)
[2017-06-20] MEDS: RIFAXIMIN 550 MG TABLET PO SCH ×2 (09:00→17:30)
[2017-06-20] MEDS: ASPIRIN 81 MG TAB.CHEW GT SCH (09:54)
[2017-06-20] MEDS: DOXAZOSIN MESYLATE 8 MG GT SCH (09:54)
[2017-06-20] MEDS: PRUNE JUICE GT SCH (11:00)
[2017-06-20 20:06] VITALS: BP 123/63
[2017-06-20] MEDS: PROSOURCE / PROSTAT (PYXIS) 30 ML UDC GT SCH (21:20)
[2017-06-20] MEDS: LATANOPROST EYE DROP 0.005% 2.5 ML BOTTLE EACHEYE SCH (21:20)
[2017-06-20] MEDS: METHYLNALTREXONE BROMIDE 12 MG/0.6 ML VIAL SQ SCH (21:20)
[2017-06-20] MEDS: PRAVASTATIN SODIUM 20 MG TABLET GT SCH (21:21)
[2017-06-20] MEDS: LORATADINE 10 MG TABLET GT SCH (21:21)
[2017-06-21] MEDS: ALBUTEROL HALF STRENGTH 1.25 MG/3 ML VIAL.NEB NEB SCH ×4 (01:06→19:30)
[2017-06-21] MEDS: CHLORHEXIDINE GLUCONATE 15 ML UDC MM SCH ×2 (06:02→17:24)
[2017-06-21] MEDS: DOXAZOSIN MESYLATE 8 MG GT SCH (08:14)
[2017-06-21] MEDS: CLOTRIMAZOLE 1% TP SCH (08:14)
[2017-06-21] MEDS: RIFAXIMIN 550 MG TABLET PO SCH ×2 (08:14→17:24)
[2017-06-21] MEDS: CHOLECALCIFEROL (VITAMIN D 3) 400 UNIT TABLET GT SCH ×2 (08:14→21:15)
[2017-06-21] MEDS: POTASSIUM CHLORIDE 10 MEQ GT SCH (08:14)
[2017-06-21] MEDS: FINASTERIDE (5 MG) 5 MG TABLET GT SCH (08:14)
[2017-06-21] MEDS: ASPIRIN 81 MG TAB.CHEW GT SCH (08:14)
[2017-06-21 08:45] VITALS: BP 104/60
[2017-06-21] MEDS: Z GUARD REMEDY 4 OZ OINT TP SCH ×2 (09:00→21:15)
[2017-06-21] MEDS: DICLOFENAC TOPICAL 100 GM GEL..GM. TP SCH ×2 (09:00→17:24)
[2017-06-21] MEDS: HYDROGEN PEROXIDE 480 ML BOTTLE TP SCH ×2 (09:00→21:15)
[2017-06-21] MEDS: VITAMINS A AND D 56.7 GM TUBE TP SCH ×4 (09:00→21:15)
[2017-06-21] MEDS: PRUNE JUICE GT SCH (11:00)
--- NOTE | 2017-06-21 14:00 | NUR ---
Resident's claims that patient's R knee "cracks" when patient bends and extends his R knee. Resident ambulated this morning with RNA with no noted discomfort or difficulty. No facial grimacing when asked to bend and extend his knee, no noted swelling of knees. Dr. Edwards notified, NNO at this time, stated he will take a look during his rounds. Resident's aware of MD's response.
[2017-06-21 20:02] VITALS: BP 98/62
[2017-06-21] MEDS: LORATADINE 10 MG TABLET GT SCH (21:15)
[2017-06-21] MEDS: METHYLNALTREXONE BROMIDE 12 MG/0.6 ML VIAL SQ SCH (21:15)
[2017-06-21] MEDS: LATANOPROST EYE DROP 0.005% 2.5 ML BOTTLE EACHEYE SCH (21:15)
[2017-06-21] MEDS: PROSOURCE / PROSTAT (PYXIS) 30 ML UDC GT SCH (21:15)
[2017-06-21] MEDS: PRAVASTATIN SODIUM 20 MG TABLET GT SCH (21:15)
[2017-06-22] MEDS: ALBUTEROL HALF STRENGTH 1.25 MG/3 ML VIAL.NEB NEB SCH ×4 (02:09→19:57)
[2017-06-22] MEDS: CHLORHEXIDINE GLUCONATE 15 ML UDC MM SCH ×2 (05:52→17:12)
[2017-06-22] MEDS: HYDROCODONE/APAP 7.5/325MG 1 EACH TABLET GT PRN ×2 (05:53→21:02)
[2017-06-22] MEDS: POTASSIUM CHLORIDE 10 MEQ GT SCH (08:22)
[2017-06-22] MEDS: DOXAZOSIN MESYLATE 8 MG GT SCH (08:22)
[2017-06-22] MEDS: RIFAXIMIN 550 MG TABLET PO SCH ×2 (08:22→17:12)
[2017-06-22] MEDS: CHOLECALCIFEROL (VITAMIN D 3) 400 UNIT TABLET GT SCH ×2 (08:22→20:58)
[2017-06-22] MEDS: ASPIRIN 81 MG TAB.CHEW GT SCH (08:22)
[2017-06-22] MEDS: FINASTERIDE (5 MG) 5 MG TABLET GT SCH (08:22)
[2017-06-22] MEDS: Z GUARD REMEDY 4 OZ OINT TP SCH ×2 (08:23→20:59)
[2017-06-22] MEDS: CLOTRIMAZOLE 1% TP SCH (08:23)
[2017-06-22] MEDS: DICLOFENAC TOPICAL 100 GM GEL..GM. TP SCH ×2 (08:23→17:12)
[2017-06-22] MEDS: VITAMINS A AND D 56.7 GM TUBE TP SCH ×4 (08:23→20:59)
[2017-06-22] MEDS: HYDROGEN PEROXIDE 480 ML BOTTLE TP SCH ×2 (08:23→20:59)
[2017-06-22] MEDS: SUMATRIPTAN SUCCINATE 25 MG TABLET GT PRN (09:26)
[2017-06-22 10:01] VITALS: BP 135/82
[2017-06-22] MEDS: PRUNE JUICE GT SCH (11:00)
--- NOTE | 2017-06-22 12:41 | NUR ---
Pt was seen by Dr. Edwards. Pt was ambulating and was walking behind the pt. Reminded Dr. Edwards that is concerned about the cracking on the right knee. Dr. Edwards discussed it with pt's . He said to have PT see pt and maybe recommend a soft knee brace to secure the patella.
--- NOTE | 2017-06-22 15:18 | NUR ---
Submitted an engineering work order request as is stating that she wants the wheelchair seat lifted and the feet holders to be placed back onto the wheelchair.
[2017-06-22 20:07] VITALS: BP 134/84
[2017-06-22] MEDS: PROSOURCE / PROSTAT (PYXIS) 30 ML UDC GT SCH (20:58)
[2017-06-22] MEDS: METHYLNALTREXONE BROMIDE 12 MG/0.6 ML VIAL SQ SCH (20:58)
[2017-06-22] MEDS: PRAVASTATIN SODIUM 20 MG TABLET GT SCH (21:01)
[2017-06-22] MEDS: LATANOPROST EYE DROP 0.005% 2.5 ML BOTTLE EACHEYE SCH (21:01)
[2017-06-22] MEDS: LORATADINE 10 MG TABLET GT SCH (21:01)
[2017-06-23] MEDS: ALBUTEROL HALF STRENGTH 1.25 MG/3 ML VIAL.NEB NEB SCH ×4 (00:46→19:45)
[2017-06-23] MEDS: CHLORHEXIDINE GLUCONATE 15 ML UDC MM SCH ×2 (05:39→17:10)
[2017-06-23 08:07] VITALS: BP 102/67
[2017-06-23] MEDS: POTASSIUM CHLORIDE 10 MEQ GT SCH (08:27)
[2017-06-23] MEDS: ASPIRIN 81 MG TAB.CHEW GT SCH (08:27)
[2017-06-23] MEDS: DOXAZOSIN MESYLATE 8 MG GT SCH (08:27)
[2017-06-23] MEDS: RIFAXIMIN 550 MG TABLET PO SCH ×2 (08:28→16:31)
[2017-06-23] MEDS: CHOLECALCIFEROL (VITAMIN D 3) 400 UNIT TABLET GT SCH ×2 (08:28→20:46)
[2017-06-23] MEDS: FINASTERIDE (5 MG) 5 MG TABLET GT SCH (08:28)
[2017-06-23] MEDS: CLOTRIMAZOLE 1% TP SCH (09:00)
[2017-06-23] MEDS: DICLOFENAC TOPICAL 100 GM GEL..GM. TP SCH ×2 (09:00→16:31)
[2017-06-23] MEDS: VITAMINS A AND D 56.7 GM TUBE TP SCH ×4 (09:00→20:47)
[2017-06-23] MEDS: Z GUARD REMEDY 4 OZ OINT TP SCH ×2 (09:00→20:47)
[2017-06-23] MEDS: HYDROGEN PEROXIDE 480 ML BOTTLE TP SCH ×2 (09:00→20:46)
[2017-06-23] MEDS: PRUNE JUICE GT SCH (11:00)
--- NOTE | 2017-06-23 13:57 | NUR ---
Jignesh from Engineering came for the resident's wheelchair. He stated that the seat cannot be put any lower, that it is already at the max. He also placed the resident's footrests on the wheelchair, which is what the had requested. was not available at the time.
--- NOTE | 2017-06-23 19:00 | NUR ---
Seen by Denise Pichardo NP for VIELKA Jackson given at this time. Informed that Engr came to look at the wheelchair and cannot put the seat any lower however she stated that she wants the seat to be higher not lower. Endorsed to follow-up 's request with Charles. department in AM.
[2017-06-23 20:09] VITALS: BP 121/75
[2017-06-23] MEDS: PROSOURCE / PROSTAT (PYXIS) 30 ML UDC GT SCH (20:46)
[2017-06-23] MEDS: METHYLNALTREXONE BROMIDE 12 MG/0.6 ML VIAL SQ SCH (20:46)
[2017-06-23] MEDS: LORATADINE 10 MG TABLET GT SCH (22:09)
[2017-06-23] MEDS: PRAVASTATIN SODIUM 20 MG TABLET GT SCH (22:09)
[2017-06-23] MEDS: LATANOPROST EYE DROP 0.005% 2.5 ML BOTTLE EACHEYE SCH (22:09)
[2017-06-24] MEDS: ALBUTEROL HALF STRENGTH 1.25 MG/3 ML VIAL.NEB NEB SCH ×4 (00:41→19:39)
[2017-06-24] MEDS: FIBERSOURCE HN 1,000 ML BOTTLE GT PRN (00:58)
[2017-06-24] MEDS: CHLORHEXIDINE GLUCONATE 15 ML UDC MM SCH ×2 (05:53→17:58)
[2017-06-24 07:37] VITALS: BP 122/76
[2017-06-24] MEDS: Z GUARD REMEDY 4 OZ OINT TP SCH ×2 (09:24→21:10)
[2017-06-24] MEDS: DOXAZOSIN MESYLATE 8 MG GT SCH (09:24)
[2017-06-24] MEDS: VITAMINS A AND D 56.7 GM TUBE TP SCH ×4 (09:24→21:10)
[2017-06-24] MEDS: CLOTRIMAZOLE 1% TP SCH (09:24)
[2017-06-24] MEDS: RIFAXIMIN 550 MG TABLET PO SCH ×2 (09:24→17:58)
[2017-06-24] MEDS: FINASTERIDE (5 MG) 5 MG TABLET GT SCH (09:24)
[2017-06-24] MEDS: ASPIRIN 81 MG TAB.CHEW GT SCH (09:24)
[2017-06-24] MEDS: POTASSIUM CHLORIDE 10 MEQ GT SCH (09:24)
[2017-06-24] MEDS: HYDROGEN PEROXIDE 480 ML BOTTLE TP SCH ×2 (09:24→21:09)
[2017-06-24] MEDS: CHOLECALCIFEROL (VITAMIN D 3) 400 UNIT TABLET GT SCH ×2 (09:24→21:09)
[2017-06-24] MEDS: DICLOFENAC TOPICAL 100 GM GEL..GM. TP SCH ×2 (09:25→17:58)
[2017-06-24] MEDS: HYDROCODONE/APAP 7.5/325MG 1 EACH TABLET GT PRN (09:30)
[2017-06-24] MEDS: PRUNE JUICE GT SCH (11:00)
[2017-06-24 20:03] VITALS: BP 131/88
[2017-06-24] MEDS: PROSOURCE / PROSTAT (PYXIS) 30 ML UDC GT SCH (21:09)
[2017-06-24] MEDS: METHYLNALTREXONE BROMIDE 12 MG/0.6 ML VIAL SQ SCH (21:09)
[2017-06-24] MEDS: SIMETHICONE SUSP 40 MG/0.6 ML BOTTLE GT PRN (21:10)
[2017-06-24] MEDS: LATANOPROST EYE DROP 0.005% 2.5 ML BOTTLE EACHEYE SCH (21:10)
[2017-06-24] MEDS: MAGNESIUM HYDROXIDE 30 ML UDC GT PRN (21:10)
[2017-06-24] MEDS: LORATADINE 10 MG TABLET GT SCH (21:10)
[2017-06-24] MEDS: PRAVASTATIN SODIUM 20 MG TABLET GT SCH (21:10)
[2017-06-25] MEDS: FIBERSOURCE HN 1,000 ML BOTTLE GT PRN (00:47)
[2017-06-25] MEDS: SUMATRIPTAN SUCCINATE 25 MG TABLET GT PRN (00:48)
[2017-06-25] MEDS: ALBUTEROL HALF STRENGTH 1.25 MG/3 ML VIAL.NEB NEB SCH ×4 (01:57→19:33)
[2017-06-25] MEDS: CHLORHEXIDINE GLUCONATE 15 ML UDC MM SCH ×2 (05:28→17:24)
[2017-06-25] MEDS: [UNRECOGNIZED DRUG - OTHER] GT PRN (05:28)
[2017-06-25] MEDS: Z GUARD REMEDY 4 OZ OINT TP SCH ×2 (09:18→20:34)
[2017-06-25] MEDS: CHOLECALCIFEROL (VITAMIN D 3) 400 UNIT TABLET GT SCH ×2 (09:18→20:34)
[2017-06-25] MEDS: RIFAXIMIN 550 MG TABLET PO SCH ×2 (09:18→17:24)
[2017-06-25] MEDS: POTASSIUM CHLORIDE 10 MEQ GT SCH (09:18)
[2017-06-25] MEDS: ASPIRIN 81 MG TAB.CHEW GT SCH (09:18)
[2017-06-25] MEDS: VITAMINS A AND D 56.7 GM TUBE TP SCH ×4 (09:18→20:34)
[2017-06-25] MEDS: DOXAZOSIN MESYLATE 8 MG GT SCH (09:18)
[2017-06-25] MEDS: HYDROGEN PEROXIDE 480 ML BOTTLE TP SCH ×2 (09:18→20:34)
[2017-06-25] MEDS: CLOTRIMAZOLE 1% TP SCH (09:18)
[2017-06-25] MEDS: FINASTERIDE (5 MG) 5 MG TABLET GT SCH (09:18)
[2017-06-25] MEDS: DICLOFENAC TOPICAL 100 GM GEL..GM. TP SCH ×2 (09:19→17:24)
[2017-06-25] MEDS: HYDROCODONE/APAP 7.5/325MG 1 EACH TABLET GT PRN (09:37)
[2017-06-25] MEDS: PRUNE JUICE GT SCH (11:00)
[2017-06-25] MEDS: BISACODYL SUPP (10 MG) 10 MG/SUPP.RECT SUPP.RECT RC PRN (18:57)
[2017-06-25 20:05] VITALS: BP 141/81
[2017-06-25] MEDS: METHYLNALTREXONE BROMIDE 12 MG/0.6 ML VIAL SQ SCH (20:34)
[2017-06-25] MEDS: MAGNESIUM HYDROXIDE 30 ML UDC GT PRN (20:34)
[2017-06-25] MEDS: PROSOURCE / PROSTAT (PYXIS) 30 ML UDC GT SCH (20:34)
[2017-06-25] MEDS: PRAVASTATIN SODIUM 20 MG TABLET GT SCH (21:14)
[2017-06-25] MEDS: LORATADINE 10 MG TABLET GT SCH (21:14)
[2017-06-25] MEDS: LATANOPROST EYE DROP 0.005% 2.5 ML BOTTLE EACHEYE SCH (21:14)
[2017-06-26] MEDS: FIBERSOURCE HN 1,000 ML BOTTLE GT PRN ×2 (00:15→20:37)
[2017-06-26] MEDS: HYDROCODONE/APAP 7.5/325MG 1 EACH TABLET GT PRN ×2 (00:23→22:06)
[2017-06-26] MEDS: ALBUTEROL HALF STRENGTH 1.25 MG/3 ML VIAL.NEB NEB SCH ×4 (01:56→19:28)
[2017-06-26] MEDS: CHLORHEXIDINE GLUCONATE 15 ML UDC MM SCH ×2 (05:28→17:01)
[2017-06-26 07:36] VITALS: BP 147/85
[2017-06-26] MEDS: DOXAZOSIN MESYLATE 8 MG GT SCH (08:57)
[2017-06-26] MEDS: RIFAXIMIN 550 MG TABLET PO SCH ×2 (08:57→17:01)
[2017-06-26] MEDS: VITAMINS A AND D 56.7 GM TUBE TP SCH ×4 (08:57→20:33)
[2017-06-26] MEDS: FINASTERIDE (5 MG) 5 MG TABLET GT SCH (08:57)
[2017-06-26] MEDS: POTASSIUM CHLORIDE 10 MEQ GT SCH (08:57)
[2017-06-26] MEDS: ASPIRIN 81 MG TAB.CHEW GT SCH (08:57)
[2017-06-26] MEDS: CLOTRIMAZOLE 1% TP SCH (08:57)
[2017-06-26] MEDS: CHOLECALCIFEROL (VITAMIN D 3) 400 UNIT TABLET GT SCH ×2 (08:57→20:33)
[2017-06-26] MEDS: Z GUARD REMEDY 4 OZ OINT TP SCH ×2 (08:57→20:33)
[2017-06-26] MEDS: HYDROGEN PEROXIDE 480 ML BOTTLE TP SCH ×2 (08:57→20:33)
[2017-06-26] MEDS: DICLOFENAC TOPICAL 100 GM GEL..GM. TP SCH ×2 (08:58→17:01)
--- NOTE | 2017-06-26 11:00 | NUR ---
Seen and examined by Dr. Edwards NNO given at this time.
[2017-06-26] MEDS: PRUNE JUICE GT SCH (11:12)
[2017-06-26 19:38] VITALS: BP 121/74
[2017-06-26] MEDS: PROSOURCE / PROSTAT (PYXIS) 30 ML UDC GT SCH (20:33)
[2017-06-26] MEDS: METHYLNALTREXONE BROMIDE 12 MG/0.6 ML VIAL SQ SCH (20:33)
[2017-06-26] MEDS: LATANOPROST EYE DROP 0.005% 2.5 ML BOTTLE EACHEYE SCH (21:23)
[2017-06-26] MEDS: PRAVASTATIN SODIUM 20 MG TABLET GT SCH (21:23)
[2017-06-26] MEDS: LORATADINE 10 MG TABLET GT SCH (21:23)
[2017-06-27] MEDS: ALBUTEROL HALF STRENGTH 1.25 MG/3 ML VIAL.NEB NEB SCH ×4 (01:56→19:50)
[2017-06-27] MEDS: CHLORHEXIDINE GLUCONATE 15 ML UDC MM SCH ×2 (05:18→18:24)
[2017-06-27 07:42] VITALS: BP 126/79
[2017-06-27] MEDS: POTASSIUM CHLORIDE 10 MEQ GT SCH (08:58)
[2017-06-27] MEDS: DOXAZOSIN MESYLATE 8 MG GT SCH (08:58)
[2017-06-27] MEDS: CLOTRIMAZOLE 1% TP SCH (08:58)
[2017-06-27] MEDS: FINASTERIDE (5 MG) 5 MG TABLET GT SCH (08:58)
[2017-06-27] MEDS: ASPIRIN 81 MG TAB.CHEW GT SCH (08:58)
[2017-06-27] MEDS: CHOLECALCIFEROL (VITAMIN D 3) 400 UNIT TABLET GT SCH ×2 (08:58→21:00)
[2017-06-27] MEDS: RIFAXIMIN 550 MG TABLET PO SCH ×2 (08:58→16:39)
[2017-06-27] MEDS: Z GUARD REMEDY 4 OZ OINT TP SCH ×2 (08:59→21:00)
[2017-06-27] MEDS: HYDROGEN PEROXIDE 480 ML BOTTLE TP SCH ×2 (08:59→21:00)
[2017-06-27] MEDS: VITAMINS A AND D 56.7 GM TUBE TP SCH ×4 (08:59→21:00)
[2017-06-27] MEDS: DICLOFENAC TOPICAL 100 GM GEL..GM. TP SCH ×2 (08:59→16:39)
[2017-06-27] MEDS: PRUNE JUICE GT SCH (11:00)
[2017-06-27 19:32] VITALS: BP 126/68
[2017-06-27] MEDS: PROSOURCE / PROSTAT (PYXIS) 30 ML UDC GT SCH (21:00)
[2017-06-27] MEDS: METHYLNALTREXONE BROMIDE 12 MG/0.6 ML VIAL SQ SCH (21:00)
[2017-06-27] MEDS: PRAVASTATIN SODIUM 20 MG TABLET GT SCH (22:16)
[2017-06-27] MEDS: LATANOPROST EYE DROP 0.005% 2.5 ML BOTTLE EACHEYE SCH (22:16)
[2017-06-27] MEDS: LORATADINE 10 MG TABLET GT SCH (22:16)
[2017-06-27] MEDS: FIBERSOURCE HN 1,000 ML BOTTLE GT PRN (22:34)
[2017-06-28] MEDS: ALBUTEROL HALF STRENGTH 1.25 MG/3 ML VIAL.NEB NEB SCH ×4 (01:47→19:45)
[2017-06-28] MEDS: CHLORHEXIDINE GLUCONATE 15 ML UDC MM SCH ×2 (06:26→16:57)
[2017-06-28 07:43] VITALS: BP 116/77
[2017-06-28] MEDS: CHOLECALCIFEROL (VITAMIN D 3) 400 UNIT TABLET GT SCH ×2 (08:20→21:02)
[2017-06-28] MEDS: RIFAXIMIN 550 MG TABLET PO SCH ×2 (08:20→16:57)
[2017-06-28] MEDS: DOXAZOSIN MESYLATE 8 MG GT SCH (08:20)
[2017-06-28] MEDS: HYDROGEN PEROXIDE 480 ML BOTTLE TP SCH ×2 (08:20→21:02)
[2017-06-28] MEDS: CLOTRIMAZOLE 1% TP SCH (08:20)
[2017-06-28] MEDS: ASPIRIN 81 MG TAB.CHEW GT SCH (08:20)
[2017-06-28] MEDS: VITAMINS A AND D 56.7 GM TUBE TP SCH ×4 (08:20→21:02)
[2017-06-28] MEDS: FINASTERIDE (5 MG) 5 MG TABLET GT SCH (08:20)
[2017-06-28] MEDS: Z GUARD REMEDY 4 OZ OINT TP SCH ×2 (08:20→21:02)
[2017-06-28] MEDS: POTASSIUM CHLORIDE 10 MEQ GT SCH (08:20)
[2017-06-28] MEDS: DICLOFENAC TOPICAL 100 GM GEL..GM. TP SCH ×2 (08:21→16:57)
--- NOTE | 2017-06-28 09:30 | NUR ---
Pt was kicking and hitting the 2 CNAs who were giving him a shower. They called SOLEDAD Ray to assist them since pt was combative. SOLEDAD Ray said the pt only became agitated in the shower. Aside from hitting and kicking, pt was also grabbing the towels from CNAs' hands and was throwing the towels at them. Pt was hitting them and scratched MICHELINE Dumont's upper chest. Pt denied pain. Pt calmed down when he was brought back to his room.
--- NOTE | 2017-06-28 10:11 | NUR ---
Resident followed up with Engineering (Kerrie) and informed her that resident's wants the wheelchair seat raised up, not down. Kerrie stated that Jignesh can return at around 11:30AM. Informed and she was in agreement. She stated that she will be here.
[2017-06-28] MEDS: PRUNE JUICE GT SCH (11:00)
--- NOTE | 2017-06-28 12:03 | NUR ---
Jignesh and Jamir from engineering came to take another look at the resident's wheelchair. They stated that they can adjust the seat to be higher but that it may compromise the safety of the resident. SKIP and charge nurse discussed. SKIP will call the supplier [employer] to see what option resident has and will check to see if resident can qualify for a new wheelchair. Resident has had his wheelchair since 07/21/2013. Also faxed referral to [employer] ( ; fax: [phone]). SKIP contacted Esau (previously from [employer]) and he stated the company might be able to do the work repairs through medicare. Spoke to Gloria at [employer] and she stated that medicare is not able to pay for the repairs as the chair has not been paid off. She stated that labor would start at $30.00 but that she cannot provide quote since the chair has to be evaluated. She also noted that the chair would have to be taken in to their warehouse at [address] [place] [address]. SKIP left a message for Lauren from [employer] ( ; fax: [phone]) to follow up on status of referral. He did not answer and SKIP left contact information. SKIP will follow up.
[2017-06-28 20:05] VITALS: BP 142/86
[2017-06-28] MEDS: METHYLNALTREXONE BROMIDE 12 MG/0.6 ML VIAL SQ SCH (21:02)
[2017-06-28] MEDS: LATANOPROST EYE DROP 0.005% 2.5 ML BOTTLE EACHEYE SCH (21:02)
[2017-06-28] MEDS: LORATADINE 10 MG TABLET GT SCH (21:02)
[2017-06-28] MEDS: PROSOURCE / PROSTAT (PYXIS) 30 ML UDC GT SCH (21:02)
[2017-06-28] MEDS: PRAVASTATIN SODIUM 20 MG TABLET GT SCH (21:02)
[2017-06-28] MEDS: FIBERSOURCE HN 1,000 ML BOTTLE GT PRN (21:08)
[2017-06-28] MEDS: HYDROCODONE/APAP 7.5/325MG 1 EACH TABLET GT PRN (23:07)
[2017-06-29] MEDS: ALBUTEROL HALF STRENGTH 1.25 MG/3 ML VIAL.NEB NEB SCH ×4 (00:29→19:24)
[2017-06-29] MEDS: CHLORHEXIDINE GLUCONATE 15 ML UDC MM SCH ×2 (05:20→17:57)
[2017-06-29 07:22] VITALS: BP 131/72
[2017-06-29] MEDS: Z GUARD REMEDY 4 OZ OINT TP SCH ×2 (08:03→21:22)
[2017-06-29] MEDS: FINASTERIDE (5 MG) 5 MG TABLET GT SCH (08:03)
[2017-06-29] MEDS: HYDROGEN PEROXIDE 480 ML BOTTLE TP SCH ×2 (08:03→21:22)
[2017-06-29] MEDS: CLOTRIMAZOLE 1% TP SCH (08:03)
[2017-06-29] MEDS: CHOLECALCIFEROL (VITAMIN D 3) 400 UNIT TABLET GT SCH ×2 (08:03→21:22)
[2017-06-29] MEDS: ASPIRIN 81 MG TAB.CHEW GT SCH (08:03)
[2017-06-29] MEDS: POTASSIUM CHLORIDE 10 MEQ GT SCH (08:03)
[2017-06-29] MEDS: RIFAXIMIN 550 MG TABLET PO SCH ×2 (08:03→17:57)
[2017-06-29] MEDS: DOXAZOSIN MESYLATE 8 MG GT SCH (08:03)
[2017-06-29] MEDS: VITAMINS A AND D 56.7 GM TUBE TP SCH ×4 (08:04→21:22)
[2017-06-29] MEDS: DICLOFENAC TOPICAL 100 GM GEL..GM. TP SCH ×2 (08:05→17:57)
--- NOTE | 2017-06-29 09:44 | NUR ---
Followed up with Lauren from [employer] He stated that they do not have a contract with medicare and cannot provide service to the resident based on his insurance. SKIP called [facility] ([phone]) and left a message, as no one answered. Left contact information. SKIP called [facility] but they stated they are not currently doing wheelchair orders. SKIP called [employer] [facility] [employer] and they asked for pediatric social worker to fax face sheet to check for eligibility. SKIP faxed face sheet to [phone]. SKIP will follow up.
[2017-06-29] MEDS: PRUNE JUICE GT SCH (11:00)
[2017-06-29] MEDS ORDERED: PSEUDOEPHEDRINE HCL 30 MG TABLET PO PRN ×2 (11:00→16:56)
--- NOTE | 2017-06-29 12:06 | NUR ---
Received a call from ED from [employer] [facility] [employer] and he stated that he ran the resident's eligibility and that he does not qualify for a new wheelchair until July 2018. He stated that they are also unable to do the repairs since resident does not qualify. Informed that repairs will be an out of pocket cost and that engineering is able to adjust the chair. She stated that she was told by engineering that chair cannot be adjusted. Art from engineering came and explained to her how they would adjust the chair so that the seat is more lifted and the resident's feet are not dragging. comfortable with explanation of how chair will be adjusted and agreed to have the chair maintained by engineering. Art stated he will take the wheelchair and will work on it after lunch. stated that this was okay.
--- NOTE | 2017-06-29 12:54 | NUR ---
Jignesh from engineering returned the wheelchair. was still present. He explained to her how he lifted the chair. appeared happy and stated that she will see how resident fits into it tomorrow. stated she is able to tilt the back so that it is not pushing forward and resident is comfortable when sitting. She will let community mental health social worker know if any other adjustments need to be made.
[2017-06-29] MEDS: HYDROCODONE/APAP 7.5/325MG 1 EACH TABLET GT PRN (17:59)
[2017-06-29 21:11] VITALS: BP 136/70
[2017-06-29] MEDS: METHYLNALTREXONE BROMIDE 12 MG/0.6 ML VIAL SQ SCH (21:22)
[2017-06-29] MEDS: PROSOURCE / PROSTAT (PYXIS) 30 ML UDC GT SCH (21:22)
[2017-06-29] MEDS: PRAVASTATIN SODIUM 20 MG TABLET GT SCH (21:22)
[2017-06-29] MEDS: LORATADINE 10 MG TABLET GT SCH (21:22)
[2017-06-29] MEDS: LATANOPROST EYE DROP 0.005% 2.5 ML BOTTLE EACHEYE SCH (21:22)
[2017-06-30] MEDS: HYDROCODONE/APAP 7.5/325MG 1 EACH TABLET GT PRN ×2 (00:02→08:24)
[2017-06-30] MEDS: ALBUTEROL HALF STRENGTH 1.25 MG/3 ML VIAL.NEB NEB SCH ×4 (01:58→20:21)
[2017-06-30] MEDS: CHLORHEXIDINE GLUCONATE 15 ML UDC MM SCH ×2 (05:08→17:15)
[2017-06-30] MEDS: FIBERSOURCE HN 1,000 ML BOTTLE GT PRN (06:33)
[2017-06-30 07:42] VITALS: BP 158/91
--- NOTE | 2017-06-30 08:15 | NUR ---
Patient seen as restlessness,anxious and kicking out the staff and facial seen as agitated.The staff approached the patient very calmly and tried to understand the feelings of the patient,explained all the procedures in detail.We suctioned and Found patient has pain on abdomen. According to BOAT PERSON patient urinated and nurse gave the medication for pain.Staff was remained with the patient untill patient"s came.
[2017-06-30] MEDS: ASPIRIN 81 MG TAB.CHEW GT SCH (08:23)
[2017-06-30] MEDS: FINASTERIDE (5 MG) 5 MG TABLET GT SCH (08:23)
[2017-06-30] MEDS: RIFAXIMIN 550 MG TABLET PO SCH ×2 (08:23→17:15)
[2017-06-30] MEDS: POTASSIUM CHLORIDE 10 MEQ GT SCH (08:23)
[2017-06-30] MEDS: CHOLECALCIFEROL (VITAMIN D 3) 400 UNIT TABLET GT SCH ×2 (08:23→21:13)
[2017-06-30] MEDS: DOXAZOSIN MESYLATE 8 MG GT SCH (08:23)
[2017-06-30] MEDS: DICLOFENAC TOPICAL 100 GM GEL..GM. TP SCH ×2 (09:00→17:15)
[2017-06-30] MEDS: VITAMINS A AND D 56.7 GM TUBE TP SCH ×4 (09:00→21:13)
[2017-06-30] MEDS: Z GUARD REMEDY 4 OZ OINT TP SCH ×2 (09:00→21:13)
[2017-06-30] MEDS: CLOTRIMAZOLE 1% TP SCH (09:00)
[2017-06-30] MEDS: HYDROGEN PEROXIDE 480 ML BOTTLE TP SCH ×2 (09:00→21:13)
--- NOTE | 2017-06-30 10:12 | NUR ---
Resident's spoke to social services analyst. She stated that she would like the foot pegs to be lowered. SW informed her that engineering would have to check to see if they can be lowered. Called engineering and spoke to Kerrie, she stated that engineering is a bit busy today and would try to send someone over later today or tomorrow. was okay with this. She also stated that she would like to see what the cost is for new foot pads as one of them is currently cracked. SW to follow up with engineering first and appreciative of the information.
[2017-06-30] MEDS: PRUNE JUICE GT SCH (11:00)
--- NOTE | 2017-06-30 13:30 | NUR ---
came and examined the patient and suspected that the patient has hernia and left message to dr.Sam Beach and refer to quality control technician as the patient"s nail is black in color.New orders noted and carried out.
--- NOTE | 2017-06-30 18:25 | NUR ---
AVIONICS ELECTRICAL ENGINEER for Dr.Sam Beach seen and examined the patient and ordered for CT abdomen/Pelvis with contrast through contrast GT in AM for abdominal/pelvic pain.New orders noted and carried out.
[2017-06-30 20:29] VITALS: BP 126/75
[2017-06-30] MEDS: LATANOPROST EYE DROP 0.005% 2.5 ML BOTTLE EACHEYE SCH (21:13)
[2017-06-30] MEDS: PRAVASTATIN SODIUM 20 MG TABLET GT SCH (21:13)
[2017-06-30] MEDS: PROSOURCE / PROSTAT (PYXIS) 30 ML UDC GT SCH (21:13)
[2017-06-30] MEDS: LORATADINE 10 MG TABLET GT SCH (21:13)
[2017-06-30] MEDS: METHYLNALTREXONE BROMIDE 12 MG/0.6 ML VIAL SQ SCH (21:13)
[2017-07-01] MEDS: ALBUTEROL HALF STRENGTH 1.25 MG/3 ML VIAL.NEB NEB SCH ×4 (00:45→19:01)
[2017-07-01] MEDS: CHLORHEXIDINE GLUCONATE 15 ML UDC MM SCH ×2 (05:32→18:44)
[2017-07-01] MEDS: FIBERSOURCE HN 1,000 ML BOTTLE GT PRN (05:32)
[2017-07-01 07:37] VITALS: BP 130/85
[2017-07-01] MEDS: CLOTRIMAZOLE 1% TP SCH (08:36)
[2017-07-01] MEDS: DOXAZOSIN MESYLATE 8 MG GT SCH (08:36)
[2017-07-01] MEDS: POTASSIUM CHLORIDE 10 MEQ GT SCH (08:36)
[2017-07-01] MEDS: RIFAXIMIN 550 MG TABLET PO SCH ×2 (08:36→16:40)
[2017-07-01] MEDS: Z GUARD REMEDY 4 OZ OINT TP SCH ×2 (08:36→20:54)
[2017-07-01] MEDS: FINASTERIDE (5 MG) 5 MG TABLET GT SCH (08:36)
[2017-07-01] MEDS: HYDROGEN PEROXIDE 480 ML BOTTLE TP SCH ×2 (08:36→20:54)
[2017-07-01] MEDS: VITAMINS A AND D 56.7 GM TUBE TP SCH ×4 (08:36→20:54)
[2017-07-01] MEDS: ASPIRIN 81 MG TAB.CHEW GT SCH (08:36)
[2017-07-01] MEDS: CHOLECALCIFEROL (VITAMIN D 3) 400 UNIT TABLET GT SCH ×2 (08:36→20:54)
[2017-07-01] MEDS: DICLOFENAC TOPICAL 100 GM GEL..GM. TP SCH ×2 (08:37→16:41)
[2017-07-01] MEDS: PRUNE JUICE GT SCH (11:00)
[2017-07-01 19:42] VITALS: BP 144/80
[2017-07-01] MEDS: METHYLNALTREXONE BROMIDE 12 MG/0.6 ML VIAL SQ SCH (20:54)
[2017-07-01] MEDS: PROSOURCE / PROSTAT (PYXIS) 30 ML UDC GT SCH (20:54)
[2017-07-01] MEDS: MAGNESIUM HYDROXIDE 30 ML UDC GT PRN (20:55)
[2017-07-01] MEDS: LORATADINE 10 MG TABLET GT SCH (21:14)
[2017-07-01] MEDS: LATANOPROST EYE DROP 0.005% 2.5 ML BOTTLE EACHEYE SCH (21:14)
[2017-07-01] MEDS: PRAVASTATIN SODIUM 20 MG TABLET GT SCH (21:14)
[2017-07-02] MEDS: ALBUTEROL HALF STRENGTH 1.25 MG/3 ML VIAL.NEB NEB SCH ×4 (01:18→20:28)
[2017-07-02] MEDS: FIBERSOURCE HN 1,000 ML BOTTLE GT PRN (05:30)
[2017-07-02] MEDS: BISACODYL SUPP (10 MG) 10 MG/SUPP.RECT SUPP.RECT RC PRN (05:30)
[2017-07-02] MEDS: CHLORHEXIDINE GLUCONATE 15 ML UDC MM SCH ×2 (05:30→17:43)
[2017-07-02 07:37] VITALS: BP 119/78
[2017-07-02] MEDS: VITAMINS A AND D 56.7 GM TUBE TP SCH ×4 (08:28→20:57)
[2017-07-02] MEDS: ASPIRIN 81 MG TAB.CHEW GT SCH (08:28)
[2017-07-02] MEDS: CLOTRIMAZOLE 1% TP SCH (08:28)
[2017-07-02] MEDS: POTASSIUM CHLORIDE 10 MEQ GT SCH (08:28)
[2017-07-02] MEDS: CHOLECALCIFEROL (VITAMIN D 3) 400 UNIT TABLET GT SCH ×2 (08:28→20:56)
[2017-07-02] MEDS: FINASTERIDE (5 MG) 5 MG TABLET GT SCH (08:28)
[2017-07-02] MEDS: RIFAXIMIN 550 MG TABLET PO SCH ×2 (08:28→17:43)
[2017-07-02] MEDS: DICLOFENAC TOPICAL 100 GM GEL..GM. TP SCH ×2 (08:28→17:43)
[2017-07-02] MEDS: HYDROGEN PEROXIDE 480 ML BOTTLE TP SCH ×2 (08:28→20:57)
[2017-07-02] MEDS: DOXAZOSIN MESYLATE 8 MG GT SCH (08:28)
[2017-07-02] MEDS: Z GUARD REMEDY 4 OZ OINT TP SCH ×2 (08:28→20:57)
[2017-07-02] MEDS: PRUNE JUICE GT SCH (11:00)
--- NOTE | 2017-07-02 14:30 | NUR ---
CT of the abdomen/pelvis completed. Contrast via GT given intermittently. Patient transported in this bed, accompanied patient together with technicians. No respiratory/cardio distress, stable.
--- NOTE | 2017-07-02 17:00 | NUR ---
Service Associate Berkley notified that CT scan of pelvis and abdomen done but result pending. She stated she will be in tomorrow to review the result. Made her aware that this morning, patient was very restless when he was up in the wheelchair. He complain of lower abdominal pain, medicated with PRN Holmen, effective after 30 min. At this time, patient in bed, calm denies any discomfort.
[2017-07-02 20:27] VITALS: BP 142/82
[2017-07-02] MEDS: PROSOURCE / PROSTAT (PYXIS) 30 ML UDC GT SCH (20:56)
[2017-07-02] MEDS: METHYLNALTREXONE BROMIDE 12 MG/0.6 ML VIAL SQ SCH (20:56)
[2017-07-02] MEDS: PRAVASTATIN SODIUM 20 MG TABLET GT SCH (21:27)
[2017-07-02] MEDS: LORATADINE 10 MG TABLET GT SCH (21:27)
[2017-07-02] MEDS: LATANOPROST EYE DROP 0.005% 2.5 ML BOTTLE EACHEYE SCH (21:27)
[2017-07-03] MEDS: ALBUTEROL HALF STRENGTH 1.25 MG/3 ML VIAL.NEB NEB SCH ×4 (02:15→19:33)
[2017-07-03] MEDS: CHLORHEXIDINE GLUCONATE 15 ML UDC MM SCH ×2 (05:24→18:00)
[2017-07-03] MEDS: MAGNESIUM HYDROXIDE 30 ML UDC GT PRN (05:24)
[2017-07-03 07:37] VITALS: BP 133/77
[2017-07-03] MEDS: CLOTRIMAZOLE 1% TP SCH (08:55)
[2017-07-03] MEDS: ASPIRIN 81 MG TAB.CHEW GT SCH (08:55)
[2017-07-03] MEDS: POTASSIUM CHLORIDE 10 MEQ GT SCH (08:55)
[2017-07-03] MEDS: FINASTERIDE (5 MG) 5 MG TABLET GT SCH (08:55)
[2017-07-03] MEDS: VITAMINS A AND D 56.7 GM TUBE TP SCH ×4 (08:55→20:40)
[2017-07-03] MEDS: DOXAZOSIN MESYLATE 8 MG GT SCH (08:55)
[2017-07-03] MEDS: Z GUARD REMEDY 4 OZ OINT TP SCH ×2 (08:55→20:40)
[2017-07-03] MEDS: RIFAXIMIN 550 MG TABLET PO SCH ×2 (08:55→17:00)
[2017-07-03] MEDS: HYDROGEN PEROXIDE 480 ML BOTTLE TP SCH ×2 (08:55→20:40)
[2017-07-03] MEDS: CHOLECALCIFEROL (VITAMIN D 3) 400 UNIT TABLET GT SCH ×2 (08:55→20:40)
[2017-07-03] MEDS: DICLOFENAC TOPICAL 100 GM GEL..GM. TP SCH ×2 (08:56→17:00)
[2017-07-03] MEDS: PRUNE JUICE GT SCH (11:00)
[2017-07-03 19:37] VITALS: BP 139/85
[2017-07-03] MEDS: METHYLNALTREXONE BROMIDE 12 MG/0.6 ML VIAL SQ SCH (20:40)
[2017-07-03] MEDS: PROSOURCE / PROSTAT (PYXIS) 30 ML UDC GT SCH (20:40)
[2017-07-03] MEDS: LORATADINE 10 MG TABLET GT SCH (21:20)
[2017-07-03] MEDS: PRAVASTATIN SODIUM 20 MG TABLET GT SCH (21:20)
[2017-07-03] MEDS: LATANOPROST EYE DROP 0.005% 2.5 ML BOTTLE EACHEYE SCH (21:20)
[2017-07-03] MEDS: HYDROCODONE/APAP 7.5/325MG 1 EACH TABLET GT PRN (21:38)
[2017-07-04] MEDS: ALBUTEROL HALF STRENGTH 1.25 MG/3 ML VIAL.NEB NEB SCH ×4 (02:16→20:06)
[2017-07-04] MEDS: CHLORHEXIDINE GLUCONATE 15 ML UDC MM SCH ×2 (05:26→17:35)
[2017-07-04] MEDS: FIBERSOURCE HN 1,000 ML BOTTLE GT PRN (05:27)
[2017-07-04 08:08] VITALS: BP 116/78
[2017-07-04] MEDS: POTASSIUM CHLORIDE 10 MEQ GT SCH (08:52)
[2017-07-04] MEDS: CLOTRIMAZOLE 1% TP SCH (08:52)
[2017-07-04] MEDS: DOXAZOSIN MESYLATE 8 MG GT SCH (08:52)
[2017-07-04] MEDS: ASPIRIN 81 MG TAB.CHEW GT SCH (08:52)
[2017-07-04] MEDS: RIFAXIMIN 550 MG TABLET PO SCH ×2 (08:52→17:35)
[2017-07-04] MEDS: DICLOFENAC TOPICAL 100 GM GEL..GM. TP SCH ×2 (08:52→17:35)
[2017-07-04] MEDS: FINASTERIDE (5 MG) 5 MG TABLET GT SCH (08:52)
[2017-07-04] MEDS: CHOLECALCIFEROL (VITAMIN D 3) 400 UNIT TABLET GT SCH ×2 (08:52→21:00)
[2017-07-04] MEDS: Z GUARD REMEDY 4 OZ OINT TP SCH ×2 (08:52→21:00)
[2017-07-04] MEDS: VITAMINS A AND D 56.7 GM TUBE TP SCH ×4 (08:52→21:00)
[2017-07-04] MEDS: HYDROGEN PEROXIDE 480 ML BOTTLE TP SCH ×2 (08:52→21:00)
[2017-07-04] MEDS: SUMATRIPTAN SUCCINATE 25 MG TABLET GT PRN (10:31)
[2017-07-04] MEDS: PRUNE JUICE GT SCH (11:35)
[2017-07-04 18:48] LABS: APPEARANCE,URINE CLOUDY (CLEAR); BILIRUBIN,URINE NEGATIVE (NEGATIVE); BLOOD, URINE TRACE Ery/uL (NEGATIVE); COLOR,URINE YELLOW (YELLOW); KETONES,URINE NEGATIVE (NEGATIVE); LEUKOCYTE ESTERASE ,URINE 3+ (NEGATIVE); NITRITE, URINE NEGATIVE (NEGATIVE); PH,URINE 7.5 (5.0-8.0); PROTEIN,URINE NEGATIVE (NEGATIVE); UGLUCOSE NEGATIVE (NEGATIVE); UROBILINOGEN,URINE 0.2 EU/dL (0.2)
[2017-07-04 19:30] LABS: BACTERIA,URINE 4+ /HPF (None Seen); SQUAMOUS EPITHELIAL CELL,UR 0-2 /HPF (None Seen); WBC,URINE TOO NUMEROUS TO COUN /HPF (0-3)
[2017-07-04] MEDS: HYDROCODONE/APAP 7.5/325MG 1 EACH TABLET GT PRN (19:30)
[2017-07-04 20:01] VITALS: BP 129/79
[2017-07-04] MEDS: PRAVASTATIN SODIUM 20 MG TABLET GT SCH (21:00)
[2017-07-04] MEDS: PROSOURCE / PROSTAT (PYXIS) 30 ML UDC GT SCH (21:00)
[2017-07-04] MEDS: LATANOPROST EYE DROP 0.005% 2.5 ML BOTTLE EACHEYE SCH (21:00)
[2017-07-04] MEDS: LORATADINE 10 MG TABLET GT SCH (21:00)
[2017-07-04] MEDS: METHYLNALTREXONE BROMIDE 12 MG/0.6 ML VIAL SQ SCH (21:00)
[2017-07-05] MEDS: ALBUTEROL HALF STRENGTH 1.25 MG/3 ML VIAL.NEB NEB SCH ×4 (02:10→19:53)
[2017-07-05] MEDS: CHLORHEXIDINE GLUCONATE 15 ML UDC MM SCH ×2 (06:05→18:20)
[2017-07-05] MEDS: FIBERSOURCE HN 1,000 ML BOTTLE GT PRN (06:05)
[2017-07-05 08:02] VITALS: BP 147/77
[2017-07-05] MEDS: DICLOFENAC TOPICAL 100 GM GEL..GM. TP SCH ×2 (09:00→17:30)
[2017-07-05] MEDS: VITAMINS A AND D 56.7 GM TUBE TP SCH ×4 (09:00→21:32)
[2017-07-05] MEDS: Z GUARD REMEDY 4 OZ OINT TP SCH ×2 (09:00→21:32)
[2017-07-05] MEDS: ASPIRIN 81 MG TAB.CHEW GT SCH (09:21)
[2017-07-05] MEDS: DOXAZOSIN MESYLATE 8 MG GT SCH (09:23)
[2017-07-05] MEDS: POTASSIUM CHLORIDE 10 MEQ GT SCH (09:24)
[2017-07-05] MEDS: FINASTERIDE (5 MG) 5 MG TABLET GT SCH (09:24)
[2017-07-05] MEDS: CHOLECALCIFEROL (VITAMIN D 3) 400 UNIT TABLET GT SCH ×2 (09:25→21:32)
[2017-07-05] MEDS: CLOTRIMAZOLE 1% TP SCH (09:26)
[2017-07-05] MEDS: RIFAXIMIN 550 MG TABLET PO SCH ×2 (09:30→17:08)
[2017-07-05] MEDS: PRUNE JUICE GT SCH (11:00)
[2017-07-05] MEDS: HYDROGEN PEROXIDE 480 ML BOTTLE TP SCH ×2 (11:00→21:32)
--- NOTE | 2017-07-05 16:21 | NUR ---
Relayed result of CT abdomen and pelvis to ISABELA Quevedo. Also relayed preliminary urine culture to her. She discussed results with Dr. Beach. Dr. Beach spoke with pt's and asked her if she wanted to have the pt undergo surgery for the hernia, but refused. ISABELA Gooden said she will recommend GI consult for proctitis but it is up to Dr. Edwards if he wants to order the GI consult. Dr. Edwards currently on vacation and ISABELA Gooden is aware of it.
--- NOTE | 2017-07-05 18:15 | NUR ---
Pt's daughter Tamara called and said her mother told her that a specialist called her. Notified Tamara that Dr. Beach called her mother regarding result of CT abdomen and pelvis and asked her if she wanted the pt to have surgery for the hernia. Tamara asked for Dr. Beach's office number, gave it to her. She said she will call Dr. Beach tomorrow. She also said that Dr. Beach told her mother that maybe the abdominal pain is caused by pt's UTI. Explained to her that there is no final result for the urine culture yet and that Dr. Edwards has repeatedly mentioned in the past that abdominal pain does not mean the pt has UTI, he will only treat UTI if pt is symptomatic meaning he has a fever and WBC is elevated. Dr. Edwards also said he has explained it to the pt's many times. Notified Tamara that if she is concerned about the UTI and would like the pt to be treated for it, then the structural iron worker doctor for Dr. Edwards can be called and asked for an order. Tamara said she will wait for Dr. Edwards.
[2017-07-05 19:46] VITALS: BP 135/84
[2017-07-05] MEDS: PROSOURCE / PROSTAT (PYXIS) 30 ML UDC GT SCH (21:31)
[2017-07-05] MEDS: LATANOPROST EYE DROP 0.005% 2.5 ML BOTTLE EACHEYE SCH (21:32)
[2017-07-05] MEDS: METHYLNALTREXONE BROMIDE 12 MG/0.6 ML VIAL SQ SCH (21:32)
[2017-07-05] MEDS: PRAVASTATIN SODIUM 20 MG TABLET GT SCH (21:32)
[2017-07-05] MEDS: LORATADINE 10 MG TABLET GT SCH (21:32)
[2017-07-06] MEDS: ALBUTEROL HALF STRENGTH 1.25 MG/3 ML VIAL.NEB NEB SCH ×4 (01:37→19:30)
[2017-07-06] MEDS: CHLORHEXIDINE GLUCONATE 15 ML UDC MM SCH ×2 (05:01→18:21)
[2017-07-06] MEDS: FIBERSOURCE HN 1,000 ML BOTTLE GT PRN (06:30)
[2017-07-06 08:11] VITALS: BP 128/63
[2017-07-06] MEDS: DOXAZOSIN MESYLATE 8 MG GT SCH (09:00)
[2017-07-06] MEDS: FINASTERIDE (5 MG) 5 MG TABLET GT SCH (09:00)
[2017-07-06] MEDS: VITAMINS A AND D 56.7 GM TUBE TP SCH ×4 (09:00→21:25)
[2017-07-06] MEDS: CHOLECALCIFEROL (VITAMIN D 3) 400 UNIT TABLET GT SCH ×2 (09:00→21:25)
[2017-07-06] MEDS: RIFAXIMIN 550 MG TABLET PO SCH ×2 (09:00→17:15)
[2017-07-06] MEDS: ASPIRIN 81 MG TAB.CHEW GT SCH (09:00)
[2017-07-06] MEDS: CLOTRIMAZOLE 1% TP SCH (09:00)
[2017-07-06] MEDS: HYDROGEN PEROXIDE 480 ML BOTTLE TP SCH ×2 (09:00→21:25)
[2017-07-06] MEDS: POTASSIUM CHLORIDE 10 MEQ GT SCH (09:00)
[2017-07-06] MEDS: DICLOFENAC TOPICAL 100 GM GEL..GM. TP SCH ×2 (09:00→17:16)
[2017-07-06] MEDS: Z GUARD REMEDY 4 OZ OINT TP SCH ×2 (09:15→21:25)
[2017-07-06] MEDS: HYDROCODONE/APAP 7.5/325MG 1 EACH TABLET GT PRN ×2 (09:24→15:24)
--- NOTE | 2017-07-06 09:26 | NUR ---
Patient presents with non-verbal s/s of pain such as irritability, moaning, grimacing. Howard administered as prescribed. Will reassess pain after administering the medication to determine the effectiveness of intervention.
[2017-07-06] MEDS: PRUNE JUICE GT SCH (11:30)
--- NOTE | 2017-07-06 12:38 | NUR ---
came to speak with home health care social worker regarding her unhappiness regarding current SECOND BALLER assigned to her. Per , she was told that she cannot be in the room while resident is going to the restroom. This resulted in her getting upset and refusing to leave the room. states that she was calm the entire time however does not approve of her leaving the room. gas systems worker informed AURA Parish and subacute sales and marketing manager Angela. Per , her daughter will call AURA Parish on when she is back in town. gas systems worker informed to speak to the charge nurse about staff assignments.
--- NOTE | 2017-07-06 15:28 | NUR ---
Patient presents with non-verbal s/s of pain. PRN analgesic administered as prescribed. Will continue to monitor
--- NOTE | 2017-07-06 15:32 | NUR ---
RN NOTES relayed urine culture result to ISABELA Quevedo and left the message.Awaiting response.
--- NOTE | 2017-07-06 17:06 | NUR ---
Called Dr.Vera pires who is covering for and relayed urine culture result and dr said she will inform the ID.
--- NOTE | 2017-07-06 17:17 | NUR ---
Called dr.Vera Finn who is covering and she said she will call ID and inform. Addendum: 07/06/17 at 1720 by JUDY HERNANDEZ RN (duplicate charting.)
--- NOTE | 2017-07-06 18:30 | NUR ---
ISABELA Anderson seen the pt and as per urine culture result ordered CBC with differential tomorrow AM and as pt is colonized didnt ordered any antibiotics.No new orders noted and carried out.
[2017-07-06 20:02] VITALS: BP 153/91
[2017-07-06] MEDS: METHYLNALTREXONE BROMIDE 12 MG/0.6 ML VIAL SQ SCH (21:25)
[2017-07-06] MEDS: LATANOPROST EYE DROP 0.005% 2.5 ML BOTTLE EACHEYE SCH (21:25)
[2017-07-06] MEDS: PROSOURCE / PROSTAT (PYXIS) 30 ML UDC GT SCH (21:25)
[2017-07-06] MEDS: PRAVASTATIN SODIUM 20 MG TABLET GT SCH (21:30)
[2017-07-06] MEDS: LORATADINE 10 MG TABLET GT SCH (21:30)
[2017-07-07] MEDS: ALBUTEROL HALF STRENGTH 1.25 MG/3 ML VIAL.NEB NEB SCH ×4 (01:02→20:04)
[2017-07-07] MEDS: CHLORHEXIDINE GLUCONATE 15 ML UDC MM SCH ×2 (05:10→17:27)
[2017-07-07] MEDS: FIBERSOURCE HN 1,000 ML BOTTLE GT PRN (06:41)
[2017-07-07 08:20] VITALS: BP 136/85
--- NOTE | 2017-07-07 08:32 | NUR ---
Engineering (Art) came to look at the resident's wheelchair. He stated that he is not able to lower foot pegs any lower as the piece does not allow for it. SW will inform during today's support group meeting.
[2017-07-07] MEDS: ASPIRIN 81 MG TAB.CHEW GT SCH (08:51)
[2017-07-07 08:52] LABS: BASOPHILS # (AUTO) 0.1 /CMM (0.0-0.2); BASOPHILS % (AUTO) 1.2 % (0.0-2.0); EOSINOPHILS # (AUTO) 0.3 /CMM (0.0-0.7); EOSINOPHILS % (AUTO) 7.2 % (0.0-6.0); HEMATOCRIT 44 % (39-51); HEMOGLOBIN 14.8 g/dL (13.5-17.5); LYMPHOCYTES # (AUTO) 1.2 /CMM (0.8-4.8); LYMPHOCYTES % (AUTO) 27.1 % (20.0-44.0); MEAN CORPUSCULAR HEMOGLOBIN 33 PG (26.0-33.0); MEAN CORPUSCULAR HGB CONC 34 g/dl (31.0-36.0); MEAN CORPUSCULAR VOLUME 97 fL (80-96); MONOCYTES # (AUTO) 0.4 /CMM (0.1-1.30); MONOCYTES % (AUTO) 8.2 % (2.0-12.0); NEUTROPHILS # (AUTO) 2.5 /CMM (1.8-8.9); NEUTROPHILS % (AUTO) 56.3 % (43.0-81.0); PLATELET COUNT (AUTO) 95 /CMM (150-450); RDW COEFFICIENT OF VARIATION 13.2 (11.5-15.0); RED BLOOD CELL COUNT(AUTO) 4.52 MIL/uL (4.5-6.0); WHITE BLOOD COUNT (AUTO) 4.4 K/uL (4.3-11.0)
[2017-07-07] MEDS: DOXAZOSIN MESYLATE 8 MG GT SCH (08:52)
[2017-07-07] MEDS: POTASSIUM CHLORIDE 10 MEQ GT SCH (08:52)
[2017-07-07] MEDS: FINASTERIDE (5 MG) 5 MG TABLET GT SCH (08:52)
[2017-07-07] MEDS: HYDROGEN PEROXIDE 480 ML BOTTLE TP SCH ×2 (08:53→21:17)
[2017-07-07] MEDS: CHOLECALCIFEROL (VITAMIN D 3) 400 UNIT TABLET GT SCH ×2 (08:53→21:17)
[2017-07-07] MEDS: Z GUARD REMEDY 4 OZ OINT TP SCH ×2 (08:53→21:17)
[2017-07-07] MEDS: CLOTRIMAZOLE 1% TP SCH (08:53)
[2017-07-07] MEDS: DICLOFENAC TOPICAL 100 GM GEL..GM. TP SCH ×2 (08:54→17:27)
[2017-07-07] MEDS: VITAMINS A AND D 56.7 GM TUBE TP SCH ×4 (08:54→21:17)
[2017-07-07] MEDS: RIFAXIMIN 550 MG TABLET PO SCH ×2 (09:57→17:27)
[2017-07-07 10:24] LABS: EOSINOPHILS % (MANUAL) 7 % (0-4); LYMPHOCYTES % (MANUAL) 25 % (16-48); MONOCYTES % (MANUAL) 10 % (0-11.0); NEUTROPHILS % (MANUAL) 58 (42-76)
[2017-07-07] MEDS: PRUNE JUICE GT SCH (11:58)
[2017-07-07] MEDS: HYDROCODONE/APAP 7.5/325MG 1 EACH TABLET GT PRN (12:00)
--- NOTE | 2017-07-07 12:07 | NUR ---
Resident's attended the support group meeting that was held today. SW informed her that engineering came to see the wheelchair but that they informed the SW that the foot pegs cannot be lowered anymore. She stated that she will let social media specialist know when her is on the chair to see if the foot pegs can at least be raised a little bit. SKIP informed that resident will be eligible for a new chair in July 2018. expressed concerns regarding staff rotations. She stated that her daughter will be calling AURA Parish tomorrow or Wednesday when she is back in town to address some of her concerns with him. Concerns were also shared with subacute horse farm manager Angela as is requesting certain staff members to work with her .
--- NOTE | 2017-07-07 14:35 | NUR ---
Notified ISABELA Anderson, ID of CBC result taken today (WBC 4.4), no new order given, resident asymptomatic.
[2017-07-07] MEDS: SUMATRIPTAN SUCCINATE 25 MG TABLET GT PRN (18:30)
[2017-07-07 20:06] VITALS: BP_SYST 109; BP_SYST 138; BP_DIAS 60; BP_DIAS 88
[2017-07-07] MEDS: PRAVASTATIN SODIUM 20 MG TABLET GT SCH (21:17)
[2017-07-07] MEDS: LATANOPROST EYE DROP 0.005% 2.5 ML BOTTLE EACHEYE SCH (21:17)
[2017-07-07] MEDS: LORATADINE 10 MG TABLET GT SCH (21:17)
[2017-07-07] MEDS: METHYLNALTREXONE BROMIDE 12 MG/0.6 ML VIAL SQ SCH (21:17)
[2017-07-07] MEDS: PROSOURCE / PROSTAT (PYXIS) 30 ML UDC GT SCH (21:17)
[2017-07-08] MEDS: ALBUTEROL HALF STRENGTH 1.25 MG/3 ML VIAL.NEB NEB SCH ×4 (01:33→19:31)
[2017-07-08] MEDS: CHLORHEXIDINE GLUCONATE 15 ML UDC MM SCH ×2 (05:54→17:12)
[2017-07-08] MEDS: FIBERSOURCE HN 1,000 ML BOTTLE GT PRN (06:17)
[2017-07-08 07:35] VITALS: BP 128/74
[2017-07-08] MEDS: ASPIRIN 81 MG TAB.CHEW GT SCH (09:07)
[2017-07-08] MEDS: DOXAZOSIN MESYLATE 8 MG GT SCH (09:08)
[2017-07-08] MEDS: FINASTERIDE (5 MG) 5 MG TABLET GT SCH (09:10)
[2017-07-08] MEDS: POTASSIUM CHLORIDE 10 MEQ GT SCH (09:11)
[2017-07-08] MEDS: DICLOFENAC TOPICAL 100 GM GEL..GM. TP SCH ×2 (09:14→16:23)
[2017-07-08] MEDS: HYDROGEN PEROXIDE 480 ML BOTTLE TP SCH ×2 (09:14→21:02)
[2017-07-08] MEDS: CLOTRIMAZOLE 1% TP SCH (09:14)
[2017-07-08] MEDS: VITAMINS A AND D 56.7 GM TUBE TP SCH ×4 (09:15→21:02)
[2017-07-08] MEDS: Z GUARD REMEDY 4 OZ OINT TP SCH ×2 (09:15→21:02)
[2017-07-08] MEDS: CHOLECALCIFEROL (VITAMIN D 3) 400 UNIT TABLET GT SCH ×2 (09:15→21:02)
[2017-07-08] MEDS: RIFAXIMIN 550 MG TABLET PO SCH ×2 (09:15→16:24)
[2017-07-08] MEDS: MAGNESIUM HYDROXIDE 30 ML UDC GT PRN (10:40)
[2017-07-08] MEDS: PRUNE JUICE GT SCH (11:46)
[2017-07-08] MEDS: METHYLNALTREXONE BROMIDE 12 MG/0.6 ML VIAL SQ SCH (21:02)
[2017-07-08] MEDS: PROSOURCE / PROSTAT (PYXIS) 30 ML UDC GT SCH (21:02)
[2017-07-08] MEDS: PRAVASTATIN SODIUM 20 MG TABLET GT SCH (21:03)
[2017-07-08] MEDS: LATANOPROST EYE DROP 0.005% 2.5 ML BOTTLE EACHEYE SCH (21:03)
[2017-07-08] MEDS: LORATADINE 10 MG TABLET GT SCH (21:03)
[2017-07-09] MEDS: ALBUTEROL HALF STRENGTH 1.25 MG/3 ML VIAL.NEB NEB SCH ×4 (01:31→20:21)
[2017-07-09 02:28] VITALS: BP 127/78
[2017-07-09] MEDS: FIBERSOURCE HN 1,000 ML BOTTLE GT PRN (06:00)
[2017-07-09] MEDS: CHLORHEXIDINE GLUCONATE 15 ML UDC MM SCH ×2 (06:00→17:46)
[2017-07-09 07:36] VITALS: BP 116/71
[2017-07-09] MEDS: POTASSIUM CHLORIDE 10 MEQ GT SCH (08:16)
[2017-07-09] MEDS: Z GUARD REMEDY 4 OZ OINT TP SCH ×2 (08:16→21:08)
[2017-07-09] MEDS: RIFAXIMIN 550 MG TABLET PO SCH ×2 (08:16→17:45)
[2017-07-09] MEDS: DOXAZOSIN MESYLATE 8 MG GT SCH (08:16)
[2017-07-09] MEDS: CLOTRIMAZOLE 1% TP SCH (08:16)
[2017-07-09] MEDS: VITAMINS A AND D 56.7 GM TUBE TP SCH ×4 (08:16→21:09)
[2017-07-09] MEDS: HYDROGEN PEROXIDE 480 ML BOTTLE TP SCH ×2 (08:16→21:08)
[2017-07-09] MEDS: CHOLECALCIFEROL (VITAMIN D 3) 400 UNIT TABLET GT SCH ×2 (08:16→21:08)
[2017-07-09] MEDS: FINASTERIDE (5 MG) 5 MG TABLET GT SCH (08:16)
[2017-07-09] MEDS: ASPIRIN 81 MG TAB.CHEW GT SCH (08:16)
[2017-07-09] MEDS: DICLOFENAC TOPICAL 100 GM GEL..GM. TP SCH ×2 (08:17→17:46)
[2017-07-09] MEDS: HYDROCODONE/APAP 7.5/325MG 1 EACH TABLET GT PRN (09:31)
[2017-07-09] MEDS: PRUNE JUICE GT SCH (11:00)
--- NOTE | 2017-07-09 14:45 | NUR ---
Seen and examined by Dr. Chi Edwards, NNO given
[2017-07-09] MEDS: BISACODYL SUPP (10 MG) 10 MG/SUPP.RECT SUPP.RECT RC PRN (17:48)
[2017-07-09 20:48] VITALS: BP 142/78
[2017-07-09] MEDS: METHYLNALTREXONE BROMIDE 12 MG/0.6 ML VIAL SQ SCH (21:08)
[2017-07-09] MEDS: PROSOURCE / PROSTAT (PYXIS) 30 ML UDC GT SCH (21:08)
[2017-07-09] MEDS: PRAVASTATIN SODIUM 20 MG TABLET GT SCH (21:09)
[2017-07-09] MEDS: LORATADINE 10 MG TABLET GT SCH (21:09)
[2017-07-09] MEDS: LATANOPROST EYE DROP 0.005% 2.5 ML BOTTLE EACHEYE SCH (21:09)
[2017-07-10] MEDS: ALBUTEROL HALF STRENGTH 1.25 MG/3 ML VIAL.NEB NEB SCH ×5 (01:30→19:43)
[2017-07-10] MEDS: HYDROCODONE/APAP 7.5/325MG 1 EACH TABLET GT PRN ×2 (02:53→21:26)
[2017-07-10] MEDS: CHLORHEXIDINE GLUCONATE 15 ML UDC MM SCH ×2 (05:13→17:07)
[2017-07-10] MEDS: FIBERSOURCE HN 1,000 ML BOTTLE GT PRN (05:13)
[2017-07-10 08:10] VITALS: BP 135/81
[2017-07-10] MEDS: POTASSIUM CHLORIDE 10 MEQ GT SCH (08:47)
[2017-07-10] MEDS: RIFAXIMIN 550 MG TABLET PO SCH ×2 (08:47→17:07)
[2017-07-10] MEDS: CLOTRIMAZOLE 1% TP SCH (08:47)
[2017-07-10] MEDS: FINASTERIDE (5 MG) 5 MG TABLET GT SCH (08:47)
[2017-07-10] MEDS: DOXAZOSIN MESYLATE 8 MG GT SCH (08:47)
[2017-07-10] MEDS: ASPIRIN 81 MG TAB.CHEW GT SCH (08:47)
[2017-07-10] MEDS: CHOLECALCIFEROL (VITAMIN D 3) 400 UNIT TABLET GT SCH ×2 (08:47→21:24)
[2017-07-10] MEDS: VITAMINS A AND D 56.7 GM TUBE TP SCH ×4 (08:48→21:24)
[2017-07-10] MEDS: HYDROGEN PEROXIDE 480 ML BOTTLE TP SCH ×2 (08:48→21:24)
[2017-07-10] MEDS: Z GUARD REMEDY 4 OZ OINT TP SCH ×2 (08:48→21:24)
[2017-07-10] MEDS: DICLOFENAC TOPICAL 100 GM GEL..GM. TP SCH ×2 (08:49→17:07)
[2017-07-10] MEDS: PRUNE JUICE GT SCH (11:43)
[2017-07-10] MEDS: SUMATRIPTAN SUCCINATE 25 MG TABLET GT PRN (12:53)
[2017-07-10] MEDS: PROSOURCE / PROSTAT (PYXIS) 30 ML UDC GT SCH (21:24)
[2017-07-10] MEDS: LATANOPROST EYE DROP 0.005% 2.5 ML BOTTLE EACHEYE SCH (21:24)
[2017-07-10] MEDS: METHYLNALTREXONE BROMIDE 12 MG/0.6 ML VIAL SQ SCH (21:24)
[2017-07-10] MEDS: PRAVASTATIN SODIUM 20 MG TABLET GT SCH (21:25)
[2017-07-10] MEDS: LORATADINE 10 MG TABLET GT SCH (21:25)
[2017-07-10 22:23] VITALS: BP 128/79
[2017-07-11] MEDS: SUMATRIPTAN SUCCINATE 25 MG TABLET GT PRN (00:15)
[2017-07-11] MEDS: ALBUTEROL HALF STRENGTH 1.25 MG/3 ML VIAL.NEB NEB SCH ×4 (01:02→20:00)
[2017-07-11] MEDS: CHLORHEXIDINE GLUCONATE 15 ML UDC MM SCH ×2 (05:33→17:56)
[2017-07-11] MEDS: FIBERSOURCE HN 1,000 ML BOTTLE GT PRN (05:43)
[2017-07-11 08:43] VITALS: BP 113/66
[2017-07-11] MEDS: ASPIRIN 81 MG TAB.CHEW GT SCH (08:49)
[2017-07-11] MEDS: DOXAZOSIN MESYLATE 8 MG GT SCH (08:50)
[2017-07-11] MEDS: FINASTERIDE (5 MG) 5 MG TABLET GT SCH (08:51)
[2017-07-11] MEDS: POTASSIUM CHLORIDE 10 MEQ GT SCH (08:51)
[2017-07-11] MEDS: RIFAXIMIN 550 MG TABLET PO SCH ×2 (08:56→17:56)
[2017-07-11] MEDS: CHOLECALCIFEROL (VITAMIN D 3) 400 UNIT TABLET GT SCH ×2 (08:56→21:10)
[2017-07-11] MEDS: VITAMINS A AND D 56.7 GM TUBE TP SCH ×4 (10:00→21:11)
[2017-07-11] MEDS: CLOTRIMAZOLE 1% TP SCH (10:00)
[2017-07-11] MEDS: Z GUARD REMEDY 4 OZ OINT TP SCH ×2 (10:00→21:11)
[2017-07-11] MEDS: HYDROGEN PEROXIDE 480 ML BOTTLE TP SCH ×2 (11:30→21:11)
[2017-07-11] MEDS: DICLOFENAC TOPICAL 100 GM GEL..GM. TP SCH ×2 (11:30→17:56)
[2017-07-11] MEDS: PRUNE JUICE GT SCH (11:49)
[2017-07-11] MEDS: HYDROCODONE/APAP 7.5/325MG 1 EACH TABLET GT PRN (18:39)
[2017-07-11 19:37] VITALS: BP 118/74
[2017-07-11] MEDS: LORATADINE 10 MG TABLET GT SCH (21:10)
[2017-07-11] MEDS: PROSOURCE / PROSTAT (PYXIS) 30 ML UDC GT SCH (21:10)
[2017-07-11] MEDS: METHYLNALTREXONE BROMIDE 12 MG/0.6 ML VIAL SQ SCH (21:11)
[2017-07-11] MEDS: LATANOPROST EYE DROP 0.005% 2.5 ML BOTTLE EACHEYE SCH (21:12)
[2017-07-11] MEDS: PRAVASTATIN SODIUM 20 MG TABLET GT SCH (21:14)
[2017-07-12] MEDS: ALBUTEROL HALF STRENGTH 1.25 MG/3 ML VIAL.NEB NEB SCH ×4 (02:06→19:56)
[2017-07-12] MEDS: CHLORHEXIDINE GLUCONATE 15 ML UDC MM SCH ×2 (05:27→17:49)
[2017-07-12] MEDS: FIBERSOURCE HN 1,000 ML BOTTLE GT PRN (07:56)
[2017-07-12 08:00] VITALS: BP 126/75
[2017-07-12] MEDS: CLOTRIMAZOLE 1% TP SCH (08:03)
[2017-07-12] MEDS: RIFAXIMIN 550 MG TABLET PO SCH ×2 (08:03→17:49)
[2017-07-12] MEDS: ASPIRIN 81 MG TAB.CHEW GT SCH (08:03)
[2017-07-12] MEDS: DOXAZOSIN MESYLATE 8 MG GT SCH (08:03)
[2017-07-12] MEDS: FINASTERIDE (5 MG) 5 MG TABLET GT SCH (08:03)
[2017-07-12] MEDS: POTASSIUM CHLORIDE 10 MEQ GT SCH (08:03)
[2017-07-12] MEDS: CHOLECALCIFEROL (VITAMIN D 3) 400 UNIT TABLET GT SCH ×2 (08:03→20:50)
[2017-07-12] MEDS: HYDROGEN PEROXIDE 480 ML BOTTLE TP SCH ×2 (08:04→20:52)
[2017-07-12] MEDS: VITAMINS A AND D 56.7 GM TUBE TP SCH ×4 (08:04→20:52)
[2017-07-12] MEDS: DICLOFENAC TOPICAL 100 GM GEL..GM. TP SCH ×2 (08:04→17:49)
[2017-07-12] MEDS: Z GUARD REMEDY 4 OZ OINT TP SCH ×2 (08:04→20:52)
[2017-07-12] MEDS: PRUNE JUICE GT SCH (11:45)
[2017-07-12] MEDS: MAGNESIUM HYDROXIDE 30 ML UDC GT PRN (17:51)
[2017-07-12 19:59] VITALS: BP 128/88
[2017-07-12] MEDS: PROSOURCE / PROSTAT (PYXIS) 30 ML UDC GT SCH (20:51)
[2017-07-12] MEDS: METHYLNALTREXONE BROMIDE 12 MG/0.6 ML VIAL SQ SCH (20:52)
[2017-07-12] MEDS: LORATADINE 10 MG TABLET GT SCH (21:52)
[2017-07-12] MEDS: PRAVASTATIN SODIUM 20 MG TABLET GT SCH (21:52)
[2017-07-12] MEDS: LATANOPROST EYE DROP 0.005% 2.5 ML BOTTLE EACHEYE SCH (21:53)
[2017-07-13] MEDS: ALBUTEROL HALF STRENGTH 1.25 MG/3 ML VIAL.NEB NEB SCH ×4 (01:26→19:48)
[2017-07-13] MEDS: CHLORHEXIDINE GLUCONATE 15 ML UDC MM SCH ×2 (05:51→17:34)
[2017-07-13 07:59] VITALS: BP 130/73
[2017-07-13] MEDS: FINASTERIDE (5 MG) 5 MG TABLET GT SCH (08:52)
[2017-07-13] MEDS: POTASSIUM CHLORIDE 10 MEQ GT SCH (08:52)
[2017-07-13] MEDS: DOXAZOSIN MESYLATE 8 MG GT SCH (08:52)
[2017-07-13] MEDS: CHOLECALCIFEROL (VITAMIN D 3) 400 UNIT TABLET GT SCH ×2 (08:53→20:53)
[2017-07-13] MEDS: CLOTRIMAZOLE 1% TP SCH (08:53)
[2017-07-13] MEDS: RIFAXIMIN 550 MG TABLET PO SCH ×2 (08:53→17:34)
[2017-07-13] MEDS: HYDROGEN PEROXIDE 480 ML BOTTLE TP SCH ×2 (09:38→20:53)
[2017-07-13] MEDS: ASPIRIN 81 MG TAB.CHEW GT SCH (09:38)
[2017-07-13] MEDS: VITAMINS A AND D 56.7 GM TUBE TP SCH ×4 (09:38→20:53)
[2017-07-13] MEDS: DICLOFENAC TOPICAL 100 GM GEL..GM. TP SCH ×2 (09:38→17:34)
[2017-07-13] MEDS: Z GUARD REMEDY 4 OZ OINT TP SCH ×2 (09:38→20:53)
[2017-07-13] MEDS: HYDROCODONE/APAP 7.5/325MG 1 EACH TABLET GT PRN ×2 (10:48→18:52)
[2017-07-13] MEDS: PRUNE JUICE GT SCH (11:00)
--- NOTE | 2017-07-13 13:26 | NUR ---
SKIP spoke to the resident's dtr Denise- [phone]- and she agreed to meet with AURA Parish on Wednesday July 19, 2017 at 12pm. Meeting is to address the 's concerns. Subacute sound effects manager Angela and clinical quality assurance specialist Gloria informed, as meeting will be a care plan meeting.
--- NOTE | 2017-07-13 16:07 | NUR ---
Dr. Edwards ordered GI consult for pt since pt was complaining of abdominal pain and had abnormal results of CT of the abdomen and pelvis. Called Dr. Hill's office and left message with Katarzyna. Pt was seen by Dr. Hill's SUPERVISOR INSECTICIDE Eleanor for GI consult. ISABELA Webster reviewed pt's CT abdomen pelvis result. at bedside when pt was seen. ISABELA Webster said she will start pt on Miralax, but refused it. She also said she will order water flushes for the pt, notified her that pt has water flushes of 250 mL q 4 hours. She said that is fine. ISABELA Webster said she will enter orders for pt in the computer.
[2017-07-13] MEDS: FIBERSOURCE HN 1,000 ML BOTTLE GT PRN (17:35)
[2017-07-13 20:28] VITALS: BP 149/86
[2017-07-13] MEDS: PROSOURCE / PROSTAT (PYXIS) 30 ML UDC GT SCH (20:51)
[2017-07-13] MEDS: METHYLNALTREXONE BROMIDE 12 MG/0.6 ML VIAL SQ SCH (20:53)
[2017-07-13] MEDS: PRAVASTATIN SODIUM 20 MG TABLET GT SCH (22:21)
[2017-07-13] MEDS: LORATADINE 10 MG TABLET GT SCH (22:21)
[2017-07-13] MEDS: LATANOPROST EYE DROP 0.005% 2.5 ML BOTTLE EACHEYE SCH (22:21)
[2017-07-14] MEDS: ALBUTEROL HALF STRENGTH 1.25 MG/3 ML VIAL.NEB NEB SCH ×4 (00:31→20:17)
[2017-07-14] MEDS: CHLORHEXIDINE GLUCONATE 15 ML UDC MM SCH ×2 (06:14→17:28)
[2017-07-14 07:38] VITALS: BP 134/86
[2017-07-14] MEDS: DOXAZOSIN MESYLATE 8 MG GT SCH (08:38)
[2017-07-14] MEDS: ASPIRIN 81 MG TAB.CHEW GT SCH (08:38)
[2017-07-14] MEDS: RIFAXIMIN 550 MG TABLET PO SCH ×2 (08:39→17:28)
[2017-07-14] MEDS: POTASSIUM CHLORIDE 10 MEQ GT SCH (08:39)
[2017-07-14] MEDS: CHOLECALCIFEROL (VITAMIN D 3) 400 UNIT TABLET GT SCH ×2 (08:39→21:16)
[2017-07-14] MEDS: FINASTERIDE (5 MG) 5 MG TABLET GT SCH (08:39)
[2017-07-14] MEDS: DICLOFENAC TOPICAL 100 GM GEL..GM. TP SCH ×2 (08:40→17:28)
[2017-07-14] MEDS: CLOTRIMAZOLE 1% TP SCH (08:40)
[2017-07-14] MEDS: VITAMINS A AND D 56.7 GM TUBE TP SCH ×4 (08:40→21:17)
[2017-07-14] MEDS: Z GUARD REMEDY 4 OZ OINT TP SCH ×2 (08:40→21:16)
[2017-07-14] MEDS: FIBERSOURCE HN 1,000 ML BOTTLE GT PRN (09:47)
[2017-07-14] MEDS: PRUNE JUICE GT SCH (10:03)
[2017-07-14] MEDS: SUMATRIPTAN SUCCINATE 25 MG TABLET GT PRN (10:17)
[2017-07-14] MEDS: HYDROGEN PEROXIDE 480 ML BOTTLE TP SCH ×2 (10:45→21:16)
--- NOTE | 2017-07-14 18:48 | NUR ---
Stool for Occult blood negative.
[2017-07-14 20:05] VITALS: BP 138/77
[2017-07-14] MEDS: PROSOURCE / PROSTAT (PYXIS) 30 ML UDC GT SCH (21:16)
[2017-07-14] MEDS: METHYLNALTREXONE BROMIDE 12 MG/0.6 ML VIAL SQ SCH (21:16)
[2017-07-14] MEDS: LORATADINE 10 MG TABLET GT SCH (21:17)
[2017-07-14] MEDS: LATANOPROST EYE DROP 0.005% 2.5 ML BOTTLE EACHEYE SCH (21:17)
[2017-07-14] MEDS: PRAVASTATIN SODIUM 20 MG TABLET GT SCH (21:17)
[2017-07-14] MEDS: HYDROCODONE/APAP 7.5/325MG 1 EACH TABLET GT PRN (23:08)
[2017-07-15] MEDS: ALBUTEROL HALF STRENGTH 1.25 MG/3 ML VIAL.NEB NEB SCH ×4 (01:33→19:48)
[2017-07-15] MEDS: CHLORHEXIDINE GLUCONATE 15 ML UDC MM SCH ×2 (05:20→17:25)
[2017-07-15] MEDS: FIBERSOURCE HN 1,000 ML BOTTLE GT PRN (05:20)
[2017-07-15 07:35] VITALS: BP 117/77
[2017-07-15] MEDS: FINASTERIDE (5 MG) 5 MG TABLET GT SCH (09:05)
[2017-07-15] MEDS: POTASSIUM CHLORIDE 10 MEQ GT SCH (09:05)
[2017-07-15] MEDS: CLOTRIMAZOLE 1% TP SCH (09:05)
[2017-07-15] MEDS: ASPIRIN 81 MG TAB.CHEW GT SCH (09:05)
[2017-07-15] MEDS: DOXAZOSIN MESYLATE 8 MG GT SCH (09:05)
[2017-07-15] MEDS: Z GUARD REMEDY 4 OZ OINT TP SCH ×2 (09:05→21:36)
[2017-07-15] MEDS: CHOLECALCIFEROL (VITAMIN D 3) 400 UNIT TABLET GT SCH ×2 (09:05→21:36)
[2017-07-15] MEDS: HYDROGEN PEROXIDE 480 ML BOTTLE TP SCH ×2 (09:05→21:36)
[2017-07-15] MEDS: VITAMINS A AND D 56.7 GM TUBE TP SCH ×4 (09:05→21:36)
[2017-07-15] MEDS: RIFAXIMIN 550 MG TABLET PO SCH ×2 (09:05→17:25)
[2017-07-15] MEDS: DICLOFENAC TOPICAL 100 GM GEL..GM. TP SCH ×2 (09:06→17:25)
[2017-07-15] MEDS: PRUNE JUICE GT SCH (11:42)
[2017-07-15 19:42] VITALS: BP 118/89
[2017-07-15] MEDS: METHYLNALTREXONE BROMIDE 12 MG/0.6 ML VIAL SQ SCH (21:36)
[2017-07-15] MEDS: PRAVASTATIN SODIUM 20 MG TABLET GT SCH (21:36)
[2017-07-15] MEDS: LORATADINE 10 MG TABLET GT SCH (21:36)
[2017-07-15] MEDS: PROSOURCE / PROSTAT (PYXIS) 30 ML UDC GT SCH (21:36)
[2017-07-15] MEDS: LATANOPROST EYE DROP 0.005% 2.5 ML BOTTLE EACHEYE SCH (21:36)
[2017-07-16] MEDS: ALBUTEROL HALF STRENGTH 1.25 MG/3 ML VIAL.NEB NEB SCH ×4 (02:23→19:49)
[2017-07-16] MEDS: CHLORHEXIDINE GLUCONATE 15 ML UDC MM SCH ×2 (05:06→17:07)
[2017-07-16] MEDS: FIBERSOURCE HN 1,000 ML BOTTLE GT PRN (05:06)
[2017-07-16 08:00] VITALS: BP 123/78
[2017-07-16] MEDS: ASPIRIN 81 MG TAB.CHEW GT SCH (09:06)
[2017-07-16] MEDS: DOXAZOSIN MESYLATE 8 MG GT SCH (09:06)
[2017-07-16] MEDS: POTASSIUM CHLORIDE 10 MEQ GT SCH (09:07)
[2017-07-16] MEDS: RIFAXIMIN 550 MG TABLET PO SCH ×2 (09:07→17:07)
[2017-07-16] MEDS: FINASTERIDE (5 MG) 5 MG TABLET GT SCH (09:07)
[2017-07-16] MEDS: CHOLECALCIFEROL (VITAMIN D 3) 400 UNIT TABLET GT SCH ×2 (09:07→21:23)
[2017-07-16] MEDS: CLOTRIMAZOLE 1% TP SCH (09:07)
[2017-07-16] MEDS: Z GUARD REMEDY 4 OZ OINT TP SCH ×2 (09:08→21:23)
[2017-07-16] MEDS: VITAMINS A AND D 56.7 GM TUBE TP SCH ×4 (09:08→21:23)
[2017-07-16] MEDS: DICLOFENAC TOPICAL 100 GM GEL..GM. TP SCH ×2 (09:09→17:07)
[2017-07-16] MEDS: HYDROCODONE/APAP 7.5/325MG 1 EACH TABLET GT PRN ×2 (09:34→21:26)
[2017-07-16] MEDS: HYDROGEN PEROXIDE 480 ML BOTTLE TP SCH ×2 (10:15→21:23)
[2017-07-16] MEDS: PRUNE JUICE GT SCH (11:00)
--- NOTE | 2017-07-16 14:13 | NUR ---
IDT meeting held. Resident's or dtrs unable to attend. Dr. Mejia and the interdisciplinary team reviewed the current plan of care in detail. Current orders as well as treatments and medications were reviewed. Per dietary, Dr. Edwards wants biotin supplement however per pharmacy, it is not covered. Charge nurse to ask the family if they want to buy the supplement and bring it in.
[2017-07-16 19:46] VITALS: BP 131/78
[2017-07-16] MEDS: LORATADINE 10 MG TABLET GT SCH (21:23)
[2017-07-16] MEDS: METHYLNALTREXONE BROMIDE 12 MG/0.6 ML VIAL SQ SCH (21:23)
[2017-07-16] MEDS: LATANOPROST EYE DROP 0.005% 2.5 ML BOTTLE EACHEYE SCH (21:23)
[2017-07-16] MEDS: PROSOURCE / PROSTAT (PYXIS) 30 ML UDC GT SCH (21:23)
[2017-07-16] MEDS: PRAVASTATIN SODIUM 20 MG TABLET GT SCH (21:23)
[2017-07-17] MEDS: ALBUTEROL HALF STRENGTH 1.25 MG/3 ML VIAL.NEB NEB SCH ×4 (01:13→20:10)
[2017-07-17] MEDS: FIBERSOURCE HN 1,000 ML BOTTLE GT PRN (03:26)
[2017-07-17] MEDS: CHLORHEXIDINE GLUCONATE 15 ML UDC MM SCH ×2 (05:27→17:47)
[2017-07-17 07:49] VITALS: BP 125/74
[2017-07-17] MEDS: Z GUARD REMEDY 4 OZ OINT TP SCH ×2 (08:32→20:47)
[2017-07-17] MEDS: VITAMINS A AND D 56.7 GM TUBE TP SCH ×4 (08:32→20:47)
[2017-07-17] MEDS: HYDROGEN PEROXIDE 480 ML BOTTLE TP SCH ×2 (08:32→20:47)
[2017-07-17] MEDS: POTASSIUM CHLORIDE 10 MEQ GT SCH (08:32)
[2017-07-17] MEDS: RIFAXIMIN 550 MG TABLET PO SCH ×2 (08:32→16:35)
[2017-07-17] MEDS: CLOTRIMAZOLE 1% TP SCH (08:32)
[2017-07-17] MEDS: DICLOFENAC TOPICAL 100 GM GEL..GM. TP SCH ×2 (08:32→16:35)
[2017-07-17] MEDS: ASPIRIN 81 MG TAB.CHEW GT SCH (08:32)
[2017-07-17] MEDS: CHOLECALCIFEROL (VITAMIN D 3) 400 UNIT TABLET GT SCH ×2 (08:32→20:47)
[2017-07-17] MEDS: DOXAZOSIN MESYLATE 8 MG GT SCH (08:32)
[2017-07-17] MEDS: FINASTERIDE (5 MG) 5 MG TABLET GT SCH (08:32)
--- NOTE | 2017-07-17 10:00 | NUR ---
Spoke with resident's with an court interpreter, asked if she will provide Biotin which door frame builder recommended due to her request for some supplements to improve discoloration in the patient's nails. She said she will provide the medication. Endorsed to f/u with family and obtain order from Dr. Edwards.
[2017-07-17] MEDS: PRUNE JUICE GT SCH (11:00)
[2017-07-17] MEDS: HYDROCODONE/APAP 7.5/325MG 1 EACH TABLET GT PRN (16:35)
[2017-07-17 19:45] VITALS: BP 135/81
[2017-07-17] MEDS: PROSOURCE / PROSTAT (PYXIS) 30 ML UDC GT SCH (20:46)
[2017-07-17] MEDS: METHYLNALTREXONE BROMIDE 12 MG/0.6 ML VIAL SQ SCH (20:47)
[2017-07-17] MEDS: LORATADINE 10 MG TABLET GT SCH (22:30)
[2017-07-17] MEDS: PRAVASTATIN SODIUM 20 MG TABLET GT SCH (22:30)
[2017-07-17] MEDS: LATANOPROST EYE DROP 0.005% 2.5 ML BOTTLE EACHEYE SCH (22:31)
[2017-07-18] MEDS: ALBUTEROL HALF STRENGTH 1.25 MG/3 ML VIAL.NEB NEB SCH ×4 (02:13→20:02)
[2017-07-18] MEDS: CHLORHEXIDINE GLUCONATE 15 ML UDC MM SCH ×2 (05:56→17:54)
[2017-07-18 08:04] VITALS: BP 123/66
[2017-07-18] MEDS: CHOLECALCIFEROL (VITAMIN D 3) 400 UNIT TABLET GT SCH ×2 (09:38→21:01)
[2017-07-18] MEDS: ASPIRIN 81 MG TAB.CHEW GT SCH (09:38)
[2017-07-18] MEDS: DOXAZOSIN MESYLATE 8 MG GT SCH (09:38)
[2017-07-18] MEDS: FINASTERIDE (5 MG) 5 MG TABLET GT SCH (09:38)
[2017-07-18] MEDS: HYDROGEN PEROXIDE 480 ML BOTTLE TP SCH ×2 (09:38→21:01)
[2017-07-18] MEDS: POTASSIUM CHLORIDE 10 MEQ GT SCH (09:38)
[2017-07-18] MEDS: CLOTRIMAZOLE 1% TP SCH (09:38)
[2017-07-18] MEDS: RIFAXIMIN 550 MG TABLET PO SCH ×2 (09:38→17:54)
[2017-07-18] MEDS: Z GUARD REMEDY 4 OZ OINT TP SCH ×2 (09:39→21:02)
[2017-07-18] MEDS: DICLOFENAC TOPICAL 100 GM GEL..GM. TP SCH ×2 (09:39→17:54)
[2017-07-18] MEDS: VITAMINS A AND D 56.7 GM TUBE TP SCH ×4 (09:39→21:02)
[2017-07-18] MEDS: PRUNE JUICE GT SCH (11:00)
[2017-07-18] MEDS: HYDROCODONE/APAP 7.5/325MG 1 EACH TABLET GT PRN (17:30)
[2017-07-18 20:08] VITALS: BP 116/71
[2017-07-18] MEDS: LORATADINE 10 MG TABLET GT SCH (21:01)
[2017-07-18] MEDS: PROSOURCE / PROSTAT (PYXIS) 30 ML UDC GT SCH (21:01)
[2017-07-18] MEDS: METHYLNALTREXONE BROMIDE 12 MG/0.6 ML VIAL SQ SCH (21:01)
[2017-07-18] MEDS: PRAVASTATIN SODIUM 20 MG TABLET GT SCH (21:02)
[2017-07-18] MEDS: LATANOPROST EYE DROP 0.005% 2.5 ML BOTTLE EACHEYE SCH (21:02)
[2017-07-19] MEDS: FIBERSOURCE HN 1,000 ML BOTTLE GT PRN (00:19)
[2017-07-19] MEDS: ALBUTEROL HALF STRENGTH 1.25 MG/3 ML VIAL.NEB NEB SCH ×4 (01:30→20:15)
[2017-07-19] MEDS: CHLORHEXIDINE GLUCONATE 15 ML UDC MM SCH ×2 (06:02→18:48)
[2017-07-19 08:06] VITALS: BP 104/59
[2017-07-19] MEDS: RIFAXIMIN 550 MG TABLET PO SCH ×2 (08:23→17:00)
[2017-07-19] MEDS: POTASSIUM CHLORIDE 10 MEQ GT SCH (08:23)
[2017-07-19] MEDS: CHOLECALCIFEROL (VITAMIN D 3) 400 UNIT TABLET GT SCH ×2 (08:23→20:24)
[2017-07-19] MEDS: ASPIRIN 81 MG TAB.CHEW GT SCH (08:23)
[2017-07-19] MEDS: CLOTRIMAZOLE 1% TP SCH (08:23)
[2017-07-19] MEDS: FINASTERIDE (5 MG) 5 MG TABLET GT SCH (08:23)
[2017-07-19] MEDS: DOXAZOSIN MESYLATE 8 MG GT SCH (08:23)
[2017-07-19] MEDS: HYDROGEN PEROXIDE 480 ML BOTTLE TP SCH ×2 (08:24→20:25)
[2017-07-19] MEDS: VITAMINS A AND D 56.7 GM TUBE TP SCH ×4 (08:24→20:25)
[2017-07-19] MEDS: Z GUARD REMEDY 4 OZ OINT TP SCH ×2 (08:24→20:25)
[2017-07-19] MEDS: DICLOFENAC TOPICAL 100 GM GEL..GM. TP SCH ×2 (08:25→17:00)
[2017-07-19] MEDS: PRUNE JUICE GT SCH (11:00)
--- NOTE | 2017-07-19 11:39 | NUR ---
SW spoke with the charge nurse this morning who informed the social service manager that resident's daughter Tamara is visiting and that during the time that care was being provided, the stepped out of the room but daughter went to nursing station to ask if there was a problem (in reference to her needing to step out). web worker informed charge nurse that family has a meeting today with the CNO and until clarification can be provided, that daughter can remain in the room. SW spoke with the daughter and daughter asked her if they are able to remain in the room when medications are being given. SW stated that they can address that with the CNO during their meeting. Tamara stated that both she and her sister along with the resident's will be attending. Per charge nurse, there were also some possible concerns from staff members of the daughter video recording or taking pictures of the staff however no concrete evidence. SW will address this with AURA Parish. Meeting to be held today 07/19/2017 at 12:00PM.
--- NOTE | 2017-07-19 12:51 | NUR ---
psychiatric social worker, AURA Parish, Subacute Catering Service Manager Angela, and contestant coordinator Gloria met with the resident's and resident's two daughters Tamara and Denise to address family concerns. Family asked AURA Parish if family had to step out when care is being provided to the resident (this includes medication giving, PRECISION LENS TECHNICIAN responsibilities, and suctioning). Per CNO, family members should step out of the room while care is being provided. However, he stated that if some nurses or PRECISION LENS TECHNICIAN's ask for help, that this is okay and family is able to provide assistance. Per CNO, can continue to shave, lotion, and brush the resident's teeth. Family is requesting that before any procedures or routine care, that the staff members introduce themselves and take the time to explain what is being done so that the resident does not become agitated or confused. They also state that resident becomes agitated easily so it helps to use a calm tone of voice while reassuring the resident. Per resident's daughters, resident understands both Burmese and Guyanese and can talk to him in both languages. They would also like for subacute staff to remind floaters from other units that subacute is different and that repositioning is every two hours since procedures are usually different than the acute side of the hospital. Family also addressed staff rotations and per CNO, staff will try to rotate the staff more consistently. also asked if an bilingual teacher aide can be present for when the medical social consultant is not available and staff will utilize the bilingual teacher aide phone when this is kt case. Family was appreciative of the care being provided to the resident.
[2017-07-19] MEDS: SUMATRIPTAN SUCCINATE 25 MG TABLET GT PRN (14:57)
[2017-07-19] MEDS: PROSOURCE / PROSTAT (PYXIS) 30 ML UDC GT SCH (20:24)
[2017-07-19] MEDS: METHYLNALTREXONE BROMIDE 12 MG/0.6 ML VIAL SQ SCH (20:25)
[2017-07-19] MEDS: HYDROCODONE/APAP 7.5/325MG 1 EACH TABLET GT PRN (20:27)
[2017-07-19 20:41] VITALS: BP 127/85
[2017-07-19] MEDS: LATANOPROST EYE DROP 0.005% 2.5 ML BOTTLE EACHEYE SCH (22:00)
[2017-07-19] MEDS: PRAVASTATIN SODIUM 20 MG TABLET GT SCH (22:00)
[2017-07-19] MEDS: LORATADINE 10 MG TABLET GT SCH (22:00)
[2017-07-20] MEDS: FIBERSOURCE HN 1,000 ML BOTTLE GT PRN (01:15)
[2017-07-20] MEDS: ALBUTEROL HALF STRENGTH 1.25 MG/3 ML VIAL.NEB NEB SCH ×4 (01:30→19:50)
[2017-07-20] MEDS: CHLORHEXIDINE GLUCONATE 15 ML UDC MM SCH ×2 (05:47→17:21)
[2017-07-20 07:42] VITALS: BP 124/68
[2017-07-20] MEDS: VITAMINS A AND D 56.7 GM TUBE TP SCH ×4 (09:00→21:10)
[2017-07-20] MEDS: FINASTERIDE (5 MG) 5 MG TABLET GT SCH (09:02)
[2017-07-20] MEDS: CHOLECALCIFEROL (VITAMIN D 3) 400 UNIT TABLET GT SCH ×2 (09:02→21:08)
[2017-07-20] MEDS: CLOTRIMAZOLE 1% TP SCH (09:02)
[2017-07-20] MEDS: POTASSIUM CHLORIDE 10 MEQ GT SCH (09:02)
[2017-07-20] MEDS: HYDROGEN PEROXIDE 480 ML BOTTLE TP SCH ×2 (09:02→21:10)
[2017-07-20] MEDS: ASPIRIN 81 MG TAB.CHEW GT SCH (09:02)
[2017-07-20] MEDS: DOXAZOSIN MESYLATE 8 MG GT SCH (09:02)
[2017-07-20] MEDS: RIFAXIMIN 550 MG TABLET PO SCH ×2 (09:02→17:21)
[2017-07-20] MEDS: Z GUARD REMEDY 4 OZ OINT TP SCH ×2 (09:03→21:10)
[2017-07-20] MEDS: DICLOFENAC TOPICAL 100 GM GEL..GM. TP SCH ×2 (09:03→17:21)
--- NOTE | 2017-07-20 10:15 | NUR ---
hot tamale worker spoke to the resident's who was upset after being asked to leave the room while care is being provided. Per the resident's , SENIOR CLINICAL DATA ANALYST asked for her help and staff asked her to leave the room. SW spoke with the resident's SENIOR CLINICAL DATA ANALYST and X RAY ELECTRONICS WIRING TECHNICIAN who reported that the asked the SENIOR CLINICAL DATA ANALYST if she could stay and help. SENIOR CLINICAL DATA ANALYST said she was put in a position where she felt bad saying no however resident and SENIOR CLINICAL DATA ANALYST were attending to the resident at the same time and 's assistance was not needed. They also stated that the resident is more independent when care is being provided and helps clean himself. They noted there is a higher quality of care when the is not present and prefer for the not to be present. SW spoke to the who was outside the room. She had her daughter Tamara on the phone. SW explained the situation to her and she stated that she understood and would talk to her mom. SW gave her a few minutes and went to the room to speak to resident's after. acknowledged that she did ask the SENIOR CLINICAL DATA ANALYST if she can stay but SW explained to her that the SENIOR CLINICAL DATA ANALYST's have to request help. She understood. informed that per Jem, she cannot be present while care is being provided unless staff request for it. Subacute manager pet Angela notified.
[2017-07-20] MEDS: PRUNE JUICE GT SCH (11:00)
[2017-07-20 20:02] VITALS: BP 126/73
[2017-07-20] MEDS: PROSOURCE / PROSTAT (PYXIS) 30 ML UDC GT SCH (21:07)
[2017-07-20] MEDS: METHYLNALTREXONE BROMIDE 12 MG/0.6 ML VIAL SQ SCH (21:09)
[2017-07-20] MEDS: LATANOPROST EYE DROP 0.005% 2.5 ML BOTTLE EACHEYE SCH (21:10)
[2017-07-20] MEDS: LORATADINE 10 MG TABLET GT SCH (21:10)
[2017-07-20] MEDS: PRAVASTATIN SODIUM 20 MG TABLET GT SCH (21:10)
[2017-07-21] MEDS: ALBUTEROL HALF STRENGTH 1.25 MG/3 ML VIAL.NEB NEB SCH ×4 (00:58→19:30)
[2017-07-21] MEDS: FIBERSOURCE HN 1,000 ML BOTTLE GT PRN (01:26)
[2017-07-21] MEDS: CHLORHEXIDINE GLUCONATE 15 ML UDC MM SCH ×2 (06:01→17:13)
[2017-07-21 08:12] VITALS: BP 135/84
[2017-07-21] MEDS: DICLOFENAC TOPICAL 100 GM GEL..GM. TP SCH ×2 (09:00→17:12)
[2017-07-21] MEDS: DOXAZOSIN MESYLATE 8 MG GT SCH (09:13)
[2017-07-21] MEDS: RIFAXIMIN 550 MG TABLET PO SCH ×2 (09:13→17:12)
[2017-07-21] MEDS: FINASTERIDE (5 MG) 5 MG TABLET GT SCH (09:13)
[2017-07-21] MEDS: ASPIRIN 81 MG TAB.CHEW GT SCH (09:13)
[2017-07-21] MEDS: POTASSIUM CHLORIDE 10 MEQ GT SCH (09:13)
[2017-07-21] MEDS: CHOLECALCIFEROL (VITAMIN D 3) 400 UNIT TABLET GT SCH ×2 (09:13→20:57)
[2017-07-21] MEDS: CLOTRIMAZOLE 1% TP SCH (09:13)
[2017-07-21] MEDS: HYDROGEN PEROXIDE 480 ML BOTTLE TP SCH ×3 (09:14→21:00)
[2017-07-21] MEDS: VITAMINS A AND D 56.7 GM TUBE TP SCH ×6 (09:14→21:00)
[2017-07-21] MEDS: Z GUARD REMEDY 4 OZ OINT TP SCH ×3 (09:14→21:00)
[2017-07-21] MEDS: HYDROCODONE/APAP 7.5/325MG 1 EACH TABLET GT PRN (09:49)
[2017-07-21] MEDS: PRUNE JUICE GT SCH (11:00)
[2017-07-21] MEDS: SUMATRIPTAN SUCCINATE 25 MG TABLET GT PRN (13:13)
[2017-07-21 17:19] LABS: EOSINOPHILS # (AUTO) 0.2 /CMM (0.0-0.7); EOSINOPHILS % (AUTO) 6.5 % (0.0-6.0); HEMATOCRIT 43 % (39-51); HEMOGLOBIN 14.5 g/dL (13.5-17.5); LYMPHOCYTES # (AUTO) 1.1 /CMM (0.8-4.8); LYMPHOCYTES % (AUTO) 30.4 % (20.0-44.0); MEAN CORPUSCULAR HEMOGLOBIN 32 PG (26.0-33.0); MEAN CORPUSCULAR HGB CONC 33 g/dl (31.0-36.0); MEAN CORPUSCULAR VOLUME 97 fL (80-96); MONOCYTES # (AUTO) 0.3 /CMM (0.1-1.30); MONOCYTES % (AUTO) 8.4 % (2.0-12.0); NEUTROPHILS % (AUTO) 53.7 % (43.0-81.0); PLATELET COUNT (AUTO) 74 /CMM (150-450); RDW COEFFICIENT OF VARIATION 12.9 (11.5-15.0); RED BLOOD CELL COUNT(AUTO) 4.47 MIL/uL (4.5-6.0); WHITE BLOOD COUNT (AUTO) 3.7 K/uL (4.3-11.0)
[2017-07-21 18:37] LABS: BAND % (MANUAL) 17 % (0.0-5.0); EOSINOPHILS % (MANUAL) 7 % (0-4); LYMPHOCYTES % (MANUAL) 28 % (16-48); MONOCYTES % (MANUAL) 9 % (0-11.0); NEUTROPHILS % (MANUAL) 39 (42-76)
[2017-07-21 20:21] VITALS: BP 120/73
[2017-07-21] MEDS: PROSOURCE / PROSTAT (PYXIS) 30 ML UDC GT SCH ×2 (20:57→21:00)
[2017-07-21] MEDS: METHYLNALTREXONE BROMIDE 12 MG/0.6 ML VIAL SQ SCH ×2 (20:58→21:00)
[2017-07-21] MEDS: PRAVASTATIN SODIUM 20 MG TABLET GT SCH (22:12)
[2017-07-21] MEDS: LATANOPROST EYE DROP 0.005% 2.5 ML BOTTLE EACHEYE SCH (22:12)
[2017-07-21] MEDS: LORATADINE 10 MG TABLET GT SCH (22:12)
[2017-07-22] MEDS: FIBERSOURCE HN 1,000 ML BOTTLE GT PRN ×2 (00:12→21:47)
[2017-07-22] MEDS: ALBUTEROL HALF STRENGTH 1.25 MG/3 ML VIAL.NEB NEB SCH ×4 (01:02→19:15)
[2017-07-22] MEDS: CHLORHEXIDINE GLUCONATE 15 ML UDC MM SCH ×2 (06:20→17:40)
[2017-07-22] MEDS: MAGNESIUM HYDROXIDE 30 ML UDC GT PRN (06:47)
[2017-07-22 07:30] VITALS: BP 130/80
[2017-07-22] MEDS: RIFAXIMIN 550 MG TABLET PO SCH ×2 (09:15→17:40)
[2017-07-22] MEDS: CHOLECALCIFEROL (VITAMIN D 3) 400 UNIT TABLET GT SCH ×2 (09:15→21:45)
[2017-07-22] MEDS: FINASTERIDE (5 MG) 5 MG TABLET GT SCH (09:15)
[2017-07-22] MEDS: DOXAZOSIN MESYLATE 8 MG GT SCH (09:15)
[2017-07-22] MEDS: CLOTRIMAZOLE 1% TP SCH (09:15)
[2017-07-22] MEDS: POTASSIUM CHLORIDE 10 MEQ GT SCH (09:15)
[2017-07-22] MEDS: ASPIRIN 81 MG TAB.CHEW GT SCH (09:15)
[2017-07-22] MEDS: HYDROGEN PEROXIDE 480 ML BOTTLE TP SCH ×2 (09:15→21:45)
[2017-07-22] MEDS: DICLOFENAC TOPICAL 100 GM GEL..GM. TP SCH ×2 (09:16→17:40)
[2017-07-22] MEDS: Z GUARD REMEDY 4 OZ OINT TP SCH ×2 (09:16→21:45)
[2017-07-22] MEDS: VITAMINS A AND D 56.7 GM TUBE TP SCH ×4 (09:16→21:45)
[2017-07-22] MEDS: PRUNE JUICE GT SCH (11:00)
[2017-07-22] MEDS: HYDROCODONE/APAP 7.5/325MG 1 EACH TABLET GT PRN ×2 (12:53→17:28)
[2017-07-22 20:14] VITALS: BP 109/71
[2017-07-22] MEDS: METHYLNALTREXONE BROMIDE 12 MG/0.6 ML VIAL SQ SCH (21:45)
[2017-07-22] MEDS: PROSOURCE / PROSTAT (PYXIS) 30 ML UDC GT SCH (21:45)
[2017-07-22] MEDS: LATANOPROST EYE DROP 0.005% 2.5 ML BOTTLE EACHEYE SCH (21:46)
[2017-07-22] MEDS: LORATADINE 10 MG TABLET GT SCH (21:46)
[2017-07-22] MEDS: PRAVASTATIN SODIUM 20 MG TABLET GT SCH (21:46)
[2017-07-22] MEDS: BISACODYL SUPP (10 MG) 10 MG/SUPP.RECT SUPP.RECT RC PRN (22:00)
[2017-07-23] MEDS: ALBUTEROL HALF STRENGTH 1.25 MG/3 ML VIAL.NEB NEB SCH ×4 (01:45→19:42)
[2017-07-23] MEDS: CHLORHEXIDINE GLUCONATE 15 ML UDC MM SCH ×2 (06:12→17:26)
[2017-07-23 07:59] VITALS: BP 122/52
[2017-07-23] MEDS: ASPIRIN 81 MG TAB.CHEW GT SCH (08:28)
[2017-07-23] MEDS: DOXAZOSIN MESYLATE 8 MG GT SCH (08:28)
[2017-07-23] MEDS: CHOLECALCIFEROL (VITAMIN D 3) 400 UNIT TABLET GT SCH ×2 (08:29→21:01)
[2017-07-23] MEDS: FINASTERIDE (5 MG) 5 MG TABLET GT SCH (08:29)
[2017-07-23] MEDS: POTASSIUM CHLORIDE 10 MEQ GT SCH (08:29)
[2017-07-23] MEDS: RIFAXIMIN 550 MG TABLET PO SCH ×2 (08:29→17:26)
[2017-07-23] MEDS: VITAMINS A AND D 56.7 GM TUBE TP SCH ×4 (08:30→21:02)
[2017-07-23] MEDS: CLOTRIMAZOLE 1% TP SCH (08:30)
[2017-07-23] MEDS: Z GUARD REMEDY 4 OZ OINT TP SCH ×2 (08:30→21:01)
[2017-07-23] MEDS: DICLOFENAC TOPICAL 100 GM GEL..GM. TP SCH ×2 (08:31→17:26)
[2017-07-23] MEDS: HYDROGEN PEROXIDE 480 ML BOTTLE TP SCH ×2 (10:00→21:01)
[2017-07-23] MEDS: HYDROCODONE/APAP 7.5/325MG 1 EACH TABLET GT PRN ×2 (10:56→22:08)
[2017-07-23] MEDS: PRUNE JUICE GT SCH (11:00)
[2017-07-23 20:08] VITALS: BP 129/74
[2017-07-23] MEDS: METHYLNALTREXONE BROMIDE 12 MG/0.6 ML VIAL SQ SCH (21:01)
[2017-07-23] MEDS: PROSOURCE / PROSTAT (PYXIS) 30 ML UDC GT SCH (21:01)
[2017-07-23] MEDS: LORATADINE 10 MG TABLET GT SCH (21:02)
[2017-07-23] MEDS: PRAVASTATIN SODIUM 20 MG TABLET GT SCH (21:02)
[2017-07-23] MEDS: LATANOPROST EYE DROP 0.005% 2.5 ML BOTTLE EACHEYE SCH (21:02)
[2017-07-23] MEDS: FIBERSOURCE HN 1,000 ML BOTTLE GT PRN (22:07)
[2017-07-24] MEDS: ALBUTEROL HALF STRENGTH 1.25 MG/3 ML VIAL.NEB NEB SCH ×4 (02:00→20:07)
[2017-07-24] MEDS: CHLORHEXIDINE GLUCONATE 15 ML UDC MM SCH ×2 (05:39→18:19)
[2017-07-24 07:30] VITALS: BP 129/77
[2017-07-24] MEDS: ASPIRIN 81 MG TAB.CHEW GT SCH (08:38)
[2017-07-24] MEDS: POTASSIUM CHLORIDE 10 MEQ GT SCH (08:39)
[2017-07-24] MEDS: CLOTRIMAZOLE 1% TP SCH (08:39)
[2017-07-24] MEDS: Z GUARD REMEDY 4 OZ OINT TP SCH ×2 (08:39→21:00)
[2017-07-24] MEDS: HYDROGEN PEROXIDE 480 ML BOTTLE TP SCH ×2 (08:39→21:00)
[2017-07-24] MEDS: CHOLECALCIFEROL (VITAMIN D 3) 400 UNIT TABLET GT SCH ×2 (08:39→21:00)
[2017-07-24] MEDS: DOXAZOSIN MESYLATE 8 MG GT SCH (08:39)
[2017-07-24] MEDS: FINASTERIDE (5 MG) 5 MG TABLET GT SCH (08:39)
[2017-07-24] MEDS: RIFAXIMIN 550 MG TABLET PO SCH ×2 (08:39→17:00)
[2017-07-24] MEDS: DICLOFENAC TOPICAL 100 GM GEL..GM. TP SCH ×2 (08:40→17:00)
[2017-07-24] MEDS: VITAMINS A AND D 56.7 GM TUBE TP SCH ×4 (08:40→21:00)
[2017-07-24] MEDS: PRUNE JUICE GT SCH (11:00)
[2017-07-24 20:25] VITALS: BP 144/83
[2017-07-24] MEDS: PROSOURCE / PROSTAT (PYXIS) 30 ML UDC GT SCH (21:00)
[2017-07-24] MEDS: METHYLNALTREXONE BROMIDE 12 MG/0.6 ML VIAL SQ SCH (21:00)
[2017-07-24] MEDS: FIBERSOURCE HN 1,000 ML BOTTLE GT PRN (21:08)
[2017-07-24] MEDS: PRAVASTATIN SODIUM 20 MG TABLET GT SCH (22:11)
[2017-07-24] MEDS: LATANOPROST EYE DROP 0.005% 2.5 ML BOTTLE EACHEYE SCH (22:11)
[2017-07-24] MEDS: LORATADINE 10 MG TABLET GT SCH (22:11)
[2017-07-25] MEDS: ALBUTEROL HALF STRENGTH 1.25 MG/3 ML VIAL.NEB NEB SCH ×4 (02:18→19:21)
[2017-07-25] MEDS: CHLORHEXIDINE GLUCONATE 15 ML UDC MM SCH ×2 (05:59→18:00)
[2017-07-25 07:57] VITALS: BP 117/79
[2017-07-25] MEDS: CHOLECALCIFEROL (VITAMIN D 3) 400 UNIT TABLET GT SCH ×2 (08:28→21:29)
[2017-07-25] MEDS: DOXAZOSIN MESYLATE 8 MG GT SCH (08:28)
[2017-07-25] MEDS: FINASTERIDE (5 MG) 5 MG TABLET GT SCH (08:28)
[2017-07-25] MEDS: POTASSIUM CHLORIDE 10 MEQ GT SCH (08:28)
[2017-07-25] MEDS: ASPIRIN 81 MG TAB.CHEW GT SCH (08:28)
[2017-07-25] MEDS: Z GUARD REMEDY 4 OZ OINT TP SCH ×2 (08:29→21:29)
[2017-07-25] MEDS: VITAMINS A AND D 56.7 GM TUBE TP SCH ×4 (08:29→21:30)
[2017-07-25] MEDS: CLOTRIMAZOLE 1% TP SCH (08:29)
[2017-07-25] MEDS: RIFAXIMIN 550 MG TABLET PO SCH ×2 (08:29→16:40)
[2017-07-25] MEDS: DICLOFENAC TOPICAL 100 GM GEL..GM. TP SCH ×2 (08:29→16:40)
[2017-07-25] MEDS: HYDROGEN PEROXIDE 480 ML BOTTLE TP SCH ×2 (10:15→21:29)
[2017-07-25] MEDS: HYDROCODONE/APAP 7.5/325MG 1 EACH TABLET GT PRN ×2 (10:56→19:31)
[2017-07-25] MEDS: PRUNE JUICE GT SCH (11:00)
[2017-07-25 20:00] VITALS: BP 131/77
[2017-07-25] MEDS: PROSOURCE / PROSTAT (PYXIS) 30 ML UDC GT SCH (21:29)
[2017-07-25] MEDS: METHYLNALTREXONE BROMIDE 12 MG/0.6 ML VIAL SQ SCH (21:29)
[2017-07-25] MEDS: PRAVASTATIN SODIUM 20 MG TABLET GT SCH (21:30)
[2017-07-25] MEDS: LATANOPROST EYE DROP 0.005% 2.5 ML BOTTLE EACHEYE SCH (21:30)
[2017-07-25] MEDS: LORATADINE 10 MG TABLET GT SCH (21:30)
[2017-07-26] MEDS: ALBUTEROL HALF STRENGTH 1.25 MG/3 ML VIAL.NEB NEB SCH ×4 (01:49→19:30)
[2017-07-26] MEDS: CHLORHEXIDINE GLUCONATE 15 ML UDC MM SCH ×2 (05:10→17:34)
[2017-07-26] MEDS: HYDROCODONE/APAP 7.5/325MG 1 EACH TABLET GT PRN ×2 (05:11→18:31)
[2017-07-26 07:43] VITALS: BP 102/46
[2017-07-26] MEDS: HYDROGEN PEROXIDE 480 ML BOTTLE TP SCH ×2 (09:00→21:14)
[2017-07-26] MEDS: VITAMINS A AND D 56.7 GM TUBE TP SCH ×4 (09:00→21:14)
[2017-07-26] MEDS: POTASSIUM CHLORIDE 10 MEQ GT SCH (09:15)
[2017-07-26] MEDS: RIFAXIMIN 550 MG TABLET PO SCH ×2 (09:15→17:33)
[2017-07-26] MEDS: DICLOFENAC TOPICAL 100 GM GEL..GM. TP SCH ×2 (09:15→17:33)
[2017-07-26] MEDS: CLOTRIMAZOLE 1% TP SCH (09:15)
[2017-07-26] MEDS: CHOLECALCIFEROL (VITAMIN D 3) 400 UNIT TABLET GT SCH ×2 (09:15→21:14)
[2017-07-26] MEDS: ASPIRIN 81 MG TAB.CHEW GT SCH (09:15)
[2017-07-26] MEDS: Z GUARD REMEDY 4 OZ OINT TP SCH ×2 (09:15→21:14)
[2017-07-26] MEDS: FINASTERIDE (5 MG) 5 MG TABLET GT SCH (09:15)
[2017-07-26] MEDS: DOXAZOSIN MESYLATE 8 MG GT SCH (09:15)
[2017-07-26] MEDS: PRUNE JUICE GT SCH (11:00)
[2017-07-26] MEDS: FIBERSOURCE HN 1,000 ML BOTTLE GT PRN (19:04)
[2017-07-26 19:32] VITALS: BP 130/76
[2017-07-26] MEDS: PROSOURCE / PROSTAT (PYXIS) 30 ML UDC GT SCH (21:14)
[2017-07-26] MEDS: PRAVASTATIN SODIUM 20 MG TABLET GT SCH (21:14)
[2017-07-26] MEDS: LATANOPROST EYE DROP 0.005% 2.5 ML BOTTLE EACHEYE SCH (21:14)
[2017-07-26] MEDS: METHYLNALTREXONE BROMIDE 12 MG/0.6 ML VIAL SQ SCH (21:14)
[2017-07-26] MEDS: LORATADINE 10 MG TABLET GT SCH (21:14)
[2017-07-27] MEDS: HYDROCODONE/APAP 7.5/325MG 1 EACH TABLET GT PRN (00:27)
[2017-07-27] MEDS: ALBUTEROL HALF STRENGTH 1.25 MG/3 ML VIAL.NEB NEB SCH ×4 (01:30→19:37)
[2017-07-27] MEDS: CHLORHEXIDINE GLUCONATE 15 ML UDC MM SCH ×2 (06:05→18:18)
[2017-07-27 07:38] VITALS: BP 121/74
[2017-07-27] MEDS: ASPIRIN 81 MG TAB.CHEW GT SCH (08:31)
[2017-07-27] MEDS: CHOLECALCIFEROL (VITAMIN D 3) 400 UNIT TABLET GT SCH ×2 (08:32→21:17)
[2017-07-27] MEDS: DOXAZOSIN MESYLATE 8 MG GT SCH (08:32)
[2017-07-27] MEDS: RIFAXIMIN 550 MG TABLET PO SCH ×2 (08:32→17:00)
[2017-07-27] MEDS: FINASTERIDE (5 MG) 5 MG TABLET GT SCH (08:32)
[2017-07-27] MEDS: POTASSIUM CHLORIDE 10 MEQ GT SCH (08:32)
[2017-07-27] MEDS: Z GUARD REMEDY 4 OZ OINT TP SCH ×2 (08:32→21:17)
[2017-07-27] MEDS: VITAMINS A AND D 56.7 GM TUBE TP SCH ×4 (08:32→21:17)
[2017-07-27] MEDS: CLOTRIMAZOLE 1% TP SCH (08:32)
[2017-07-27] MEDS: HYDROGEN PEROXIDE 480 ML BOTTLE TP SCH ×2 (08:32→21:17)
[2017-07-27] MEDS: DICLOFENAC TOPICAL 100 GM GEL..GM. TP SCH ×2 (08:33→17:00)
[2017-07-27] MEDS: PRUNE JUICE GT SCH (11:00)
[2017-07-27 19:33] VITALS: BP 125/75
[2017-07-27] MEDS: PROSOURCE / PROSTAT (PYXIS) 30 ML UDC GT SCH (21:17)
[2017-07-27] MEDS: METHYLNALTREXONE BROMIDE 12 MG/0.6 ML VIAL SQ SCH (21:17)
[2017-07-27] MEDS: LATANOPROST EYE DROP 0.005% 2.5 ML BOTTLE EACHEYE SCH (21:18)
[2017-07-27] MEDS: LORATADINE 10 MG TABLET GT SCH (21:18)
[2017-07-27] MEDS: PRAVASTATIN SODIUM 20 MG TABLET GT SCH (22:04)
[2017-07-28] MEDS: ALBUTEROL HALF STRENGTH 1.25 MG/3 ML VIAL.NEB NEB SCH ×4 (00:38→18:46)
[2017-07-28] MEDS: HYDROCODONE/APAP 7.5/325MG 1 EACH TABLET GT PRN (03:28)
[2017-07-28] MEDS: CHLORHEXIDINE GLUCONATE 15 ML UDC MM SCH ×2 (05:32→17:40)
[2017-07-28 07:45] VITALS: BP 130/81
[2017-07-28] MEDS: DOXAZOSIN MESYLATE 8 MG GT SCH (08:39)
[2017-07-28] MEDS: POTASSIUM CHLORIDE 10 MEQ GT SCH (08:39)
[2017-07-28] MEDS: FINASTERIDE (5 MG) 5 MG TABLET GT SCH (08:39)
[2017-07-28] MEDS: ASPIRIN 81 MG TAB.CHEW GT SCH (08:39)
[2017-07-28] MEDS: CHOLECALCIFEROL (VITAMIN D 3) 400 UNIT TABLET GT SCH ×2 (08:40→21:20)
[2017-07-28] MEDS: RIFAXIMIN 550 MG TABLET PO SCH ×2 (08:40→16:51)
[2017-07-28] MEDS: VITAMINS A AND D 56.7 GM TUBE TP SCH ×4 (09:00→21:20)
[2017-07-28] MEDS: Z GUARD REMEDY 4 OZ OINT TP SCH ×2 (09:00→21:20)
[2017-07-28] MEDS: CLOTRIMAZOLE 1% TP SCH (09:00)
[2017-07-28] MEDS: HYDROGEN PEROXIDE 480 ML BOTTLE TP SCH ×2 (09:00→21:20)
[2017-07-28] MEDS: DICLOFENAC TOPICAL 100 GM GEL..GM. TP SCH ×2 (09:00→16:55)
[2017-07-28] MEDS: PRUNE JUICE GT SCH (10:43)
[2017-07-28] MEDS: SUMATRIPTAN SUCCINATE 25 MG TABLET GT PRN (10:44)
--- NOTE | 2017-07-28 18:46 | NUR ---
Patient's has been stepping out of the room while routine care is provided to patient throughout day today. Patient's states that she believes he is going to suffer if she is not at the bedside when care is provided. She states that she is needed by him. She is provided reassurance that all care is provided as needed by our professional staff and that our staff knows how to care for him appropriately. and that At 18:10 p.m. C.N.A. assigned had finished providing routine care to patient notified care is completed. Patient's went inside room removed the pillows and removing bedsheets inspecting patient's skin claiming he is not properly positioned. Noted patient to slid down a little. asked nurse for help to reposition him back again with her. Requesting for frame of head of the bed to be removed to pull him up by her and by nurse. Patient teaching provided to patient and that it is not safe to do her request. Notified her that he is able to help when he is repositioned and that he is also able to pull himself up when he is asked. Per she does not want him to make any effort and notified her he will be repositioned again by nursing staff again. Patient kept clean and comfortable by nursing staff. All needs met and attended. RN plant engineering supervisor notified.
[2017-07-28] MEDS: MAGNESIUM HYDROXIDE 30 ML UDC GT PRN (21:00)
[2017-07-28] MEDS: METHYLNALTREXONE BROMIDE 12 MG/0.6 ML VIAL SQ SCH (21:20)
[2017-07-28] MEDS: PROSOURCE / PROSTAT (PYXIS) 30 ML UDC GT SCH (21:20)
[2017-07-28] MEDS: PRAVASTATIN SODIUM 20 MG TABLET GT SCH (21:21)
[2017-07-28] MEDS: LATANOPROST EYE DROP 0.005% 2.5 ML BOTTLE EACHEYE SCH (21:21)
[2017-07-28] MEDS: LORATADINE 10 MG TABLET GT SCH (21:21)
[2017-07-29] MEDS: ALBUTEROL HALF STRENGTH 1.25 MG/3 ML VIAL.NEB NEB SCH ×4 (02:34→20:05)
[2017-07-29] MEDS: CHLORHEXIDINE GLUCONATE 15 ML UDC MM SCH ×2 (06:13→17:33)
[2017-07-29] MEDS: BISACODYL SUPP (10 MG) 10 MG/SUPP.RECT SUPP.RECT RC PRN (06:31)
[2017-07-29 07:38] VITALS: BP 124/74
[2017-07-29] MEDS: DOXAZOSIN MESYLATE 8 MG GT SCH (08:40)
[2017-07-29] MEDS: ASPIRIN 81 MG TAB.CHEW GT SCH (08:40)
[2017-07-29] MEDS: POTASSIUM CHLORIDE 10 MEQ GT SCH (08:40)
[2017-07-29] MEDS: CHOLECALCIFEROL (VITAMIN D 3) 400 UNIT TABLET GT SCH ×2 (08:41→21:05)
[2017-07-29] MEDS: CLOTRIMAZOLE 1% TP SCH (08:41)
[2017-07-29] MEDS: Z GUARD REMEDY 4 OZ OINT TP SCH ×2 (08:41→21:05)
[2017-07-29] MEDS: FINASTERIDE (5 MG) 5 MG TABLET GT SCH (08:41)
[2017-07-29] MEDS: VITAMINS A AND D 56.7 GM TUBE TP SCH ×4 (08:41→21:05)
[2017-07-29] MEDS: HYDROGEN PEROXIDE 480 ML BOTTLE TP SCH ×2 (08:41→21:05)
[2017-07-29] MEDS: RIFAXIMIN 550 MG TABLET PO SCH ×2 (08:41→17:33)
[2017-07-29] MEDS: DICLOFENAC TOPICAL 100 GM GEL..GM. TP SCH ×2 (08:42→17:33)
[2017-07-29] MEDS: HYDROCODONE/APAP 7.5/325MG 1 EACH TABLET GT PRN ×2 (11:22→21:07)
[2017-07-29] MEDS: PRUNE JUICE GT SCH (11:22)
[2017-07-29] MEDS: FIBERSOURCE HN 1,000 ML BOTTLE GT PRN (15:40)
[2017-07-29 20:16] VITALS: BP 139/78
[2017-07-29] MEDS: LORATADINE 10 MG TABLET GT SCH (21:05)
[2017-07-29] MEDS: PROSOURCE / PROSTAT (PYXIS) 30 ML UDC GT SCH (21:05)
[2017-07-29] MEDS: LATANOPROST EYE DROP 0.005% 2.5 ML BOTTLE EACHEYE SCH (21:05)
[2017-07-29] MEDS: PRAVASTATIN SODIUM 20 MG TABLET GT SCH (21:05)
[2017-07-29] MEDS: METHYLNALTREXONE BROMIDE 12 MG/0.6 ML VIAL SQ SCH (21:05)
[2017-07-30] MEDS: ALBUTEROL HALF STRENGTH 1.25 MG/3 ML VIAL.NEB NEB SCH ×4 (01:30→19:44)
[2017-07-30] MEDS: CHLORHEXIDINE GLUCONATE 15 ML UDC MM SCH ×2 (05:30→17:28)
[2017-07-30] MEDS: HYDROCODONE/APAP 7.5/325MG 1 EACH TABLET GT PRN ×2 (06:56→15:54)
[2017-07-30 07:25] VITALS: BP 141/77
[2017-07-30] MEDS: FIBERSOURCE HN 1,000 ML BOTTLE GT PRN (07:28)
[2017-07-30] MEDS: RIFAXIMIN 550 MG TABLET PO SCH ×2 (08:54→17:28)
[2017-07-30] MEDS: ASPIRIN 81 MG TAB.CHEW GT SCH (08:54)
[2017-07-30] MEDS: DOXAZOSIN MESYLATE 8 MG GT SCH (08:54)
[2017-07-30] MEDS: CLOTRIMAZOLE 1% TP SCH (08:54)
[2017-07-30] MEDS: FINASTERIDE (5 MG) 5 MG TABLET GT SCH (08:54)
[2017-07-30] MEDS: HYDROGEN PEROXIDE 480 ML BOTTLE TP SCH ×2 (08:54→21:31)
[2017-07-30] MEDS: CHOLECALCIFEROL (VITAMIN D 3) 400 UNIT TABLET GT SCH ×2 (08:54→21:30)
[2017-07-30] MEDS: POTASSIUM CHLORIDE 10 MEQ GT SCH (08:54)
[2017-07-30] MEDS: VITAMINS A AND D 56.7 GM TUBE TP SCH ×4 (08:55→21:31)
[2017-07-30] MEDS: Z GUARD REMEDY 4 OZ OINT TP SCH ×2 (08:55→21:31)
[2017-07-30] MEDS: DICLOFENAC TOPICAL 100 GM GEL..GM. TP SCH ×2 (08:55→17:28)
[2017-07-30] MEDS: PRUNE JUICE GT SCH (11:00)
[2017-07-30 19:55] VITALS: BP 126/76
[2017-07-30] MEDS: METHYLNALTREXONE BROMIDE 12 MG/0.6 ML VIAL SQ SCH (21:30)
[2017-07-30] MEDS: PROSOURCE / PROSTAT (PYXIS) 30 ML UDC GT SCH (21:30)
[2017-07-30] MEDS: LATANOPROST EYE DROP 0.005% 2.5 ML BOTTLE EACHEYE SCH (21:31)
[2017-07-30] MEDS: PRAVASTATIN SODIUM 20 MG TABLET GT SCH (21:31)
[2017-07-30] MEDS: LORATADINE 10 MG TABLET GT SCH (21:31)
[2017-07-31] MEDS: ALBUTEROL HALF STRENGTH 1.25 MG/3 ML VIAL.NEB NEB SCH ×4 (02:28→19:50)
[2017-07-31] MEDS: CHLORHEXIDINE GLUCONATE 15 ML UDC MM SCH ×2 (05:30→17:21)
[2017-07-31 08:00] VITALS: BP 117/72
[2017-07-31] MEDS: ASPIRIN 81 MG TAB.CHEW GT SCH (09:00)
[2017-07-31] MEDS: DICLOFENAC TOPICAL 100 GM GEL..GM. TP SCH ×2 (09:00→17:21)
[2017-07-31] MEDS: POTASSIUM CHLORIDE 10 MEQ GT SCH (09:00)
[2017-07-31] MEDS: HYDROGEN PEROXIDE 480 ML BOTTLE TP SCH ×2 (09:00→21:14)
[2017-07-31] MEDS: Z GUARD REMEDY 4 OZ OINT TP SCH ×2 (09:00→21:14)
[2017-07-31] MEDS: CLOTRIMAZOLE 1% TP SCH (09:00)
[2017-07-31] MEDS: RIFAXIMIN 550 MG TABLET PO SCH ×2 (09:00→17:21)
[2017-07-31] MEDS: CHOLECALCIFEROL (VITAMIN D 3) 400 UNIT TABLET GT SCH ×2 (09:00→21:14)
[2017-07-31] MEDS: VITAMINS A AND D 56.7 GM TUBE TP SCH ×4 (09:00→21:14)
[2017-07-31] MEDS: DOXAZOSIN MESYLATE 8 MG GT SCH (09:00)
[2017-07-31] MEDS: FINASTERIDE (5 MG) 5 MG TABLET GT SCH (09:00)
[2017-07-31] MEDS: PRUNE JUICE GT SCH (11:00)
[2017-07-31] MEDS: FIBERSOURCE HN 1,000 ML BOTTLE GT PRN (12:50)
[2017-07-31 20:23] VITALS: BP 110/63
[2017-07-31] MEDS: METHYLNALTREXONE BROMIDE 12 MG/0.6 ML VIAL SQ SCH (21:14)
[2017-07-31] MEDS: PRAVASTATIN SODIUM 20 MG TABLET GT SCH (21:14)
[2017-07-31] MEDS: LATANOPROST EYE DROP 0.005% 2.5 ML BOTTLE EACHEYE SCH (21:14)
[2017-07-31] MEDS: PROSOURCE / PROSTAT (PYXIS) 30 ML UDC GT SCH (21:14)
[2017-07-31] MEDS: LORATADINE 10 MG TABLET GT SCH (21:14)
[2017-08-01] MEDS: ALBUTEROL HALF STRENGTH 1.25 MG/3 ML VIAL.NEB NEB SCH ×4 (01:37→19:30)
[2017-08-01] MEDS: CHLORHEXIDINE GLUCONATE 15 ML UDC MM SCH ×2 (05:17→17:39)
[2017-08-01] MEDS: FIBERSOURCE HN 1,000 ML BOTTLE GT PRN (05:19)
[2017-08-01] MEDS: HYDROGEN PEROXIDE 480 ML BOTTLE TP SCH ×2 (08:16→21:14)
[2017-08-01] MEDS: FINASTERIDE (5 MG) 5 MG TABLET GT SCH (08:16)
[2017-08-01] MEDS: RIFAXIMIN 550 MG TABLET PO SCH ×2 (08:16→17:39)
[2017-08-01] MEDS: ASPIRIN 81 MG TAB.CHEW GT SCH (08:16)
[2017-08-01] MEDS: Z GUARD REMEDY 4 OZ OINT TP SCH ×2 (08:16→21:14)
[2017-08-01] MEDS: CHOLECALCIFEROL (VITAMIN D 3) 400 UNIT TABLET GT SCH ×2 (08:16→21:14)
[2017-08-01] MEDS: POTASSIUM CHLORIDE 10 MEQ GT SCH (08:16)
[2017-08-01] MEDS: VITAMINS A AND D 56.7 GM TUBE TP SCH ×4 (08:16→21:15)
[2017-08-01] MEDS: DOXAZOSIN MESYLATE 8 MG GT SCH (08:16)
[2017-08-01] MEDS: DICLOFENAC TOPICAL 100 GM GEL..GM. TP SCH ×2 (08:17→17:39)
[2017-08-01] MEDS: CLOTRIMAZOLE 1% TP SCH (09:00)
[2017-08-01 09:11] VITALS: BP 118/76
[2017-08-01] MEDS: PRUNE JUICE GT SCH (11:00)
--- NOTE | 2017-08-01 11:00 | NUR ---
SCHOOL BUS ATTENDANT PRN - NORCO 7.5/325 Pt was given prn [place] 7.5/325mg (2) tablets via GT. Will re-assess for for effectiveness. Addendum: 08/01/17 at 1756 by LEONARD BREAUX LVN ADDENDUM: RE-ASSESSMENT PT AWAKE COMFORTABLE, NO GRIMACING NOTED, PAIN MEDICATION EFFECTIVE. Addendum: 08/01/17 at 1805 by LEONARD BREAUX LVN Addendum: [place] medication given, witnessed by Charge Nurse
[2017-08-01] MEDS: HYDROCODONE/APAP 7.5/325MG 1 EACH TABLET GT PRN (17:57)
[2017-08-01 20:32] VITALS: BP 135/80
[2017-08-01] MEDS: METHYLNALTREXONE BROMIDE 12 MG/0.6 ML VIAL SQ SCH (21:14)
[2017-08-01] MEDS: PROSOURCE / PROSTAT (PYXIS) 30 ML UDC GT SCH (21:14)
[2017-08-01] MEDS: LATANOPROST EYE DROP 0.005% 2.5 ML BOTTLE EACHEYE SCH (21:15)
[2017-08-01] MEDS: LORATADINE 10 MG TABLET GT SCH (21:16)
[2017-08-01] MEDS: PRAVASTATIN SODIUM 20 MG TABLET GT SCH (21:16)
[2017-08-02] MEDS: HYDROCODONE/APAP 7.5/325MG 1 EACH TABLET GT PRN ×2 (00:45→21:26)
[2017-08-02] MEDS: ALBUTEROL HALF STRENGTH 1.25 MG/3 ML VIAL.NEB NEB SCH ×4 (01:55→19:42)
[2017-08-02] MEDS: CHLORHEXIDINE GLUCONATE 15 ML UDC MM SCH ×2 (06:19→17:24)
[2017-08-02 08:25] VITALS: BP 104/61
[2017-08-02] MEDS: DOXAZOSIN MESYLATE 8 MG GT SCH (09:37)
[2017-08-02] MEDS: ASPIRIN 81 MG TAB.CHEW GT SCH (09:37)
[2017-08-02] MEDS: FINASTERIDE (5 MG) 5 MG TABLET GT SCH (09:37)
[2017-08-02] MEDS: HYDROGEN PEROXIDE 480 ML BOTTLE TP SCH ×2 (09:37→21:25)
[2017-08-02] MEDS: POTASSIUM CHLORIDE 10 MEQ GT SCH (09:37)
[2017-08-02] MEDS: RIFAXIMIN 550 MG TABLET PO SCH ×2 (09:37→17:24)
[2017-08-02] MEDS: CHOLECALCIFEROL (VITAMIN D 3) 400 UNIT TABLET GT SCH ×2 (09:37→21:25)
[2017-08-02] MEDS: Z GUARD REMEDY 4 OZ OINT TP SCH ×2 (09:38→21:25)
[2017-08-02] MEDS: VITAMINS A AND D 56.7 GM TUBE TP SCH ×4 (09:38→21:26)
[2017-08-02] MEDS: DICLOFENAC TOPICAL 100 GM GEL..GM. TP SCH ×2 (09:38→17:24)
[2017-08-02] MEDS: PRUNE JUICE GT SCH (11:00)
--- NOTE | 2017-08-02 11:05 | NUR ---
made rounds and seen the pt and no new orders noted.
[2017-08-02] MEDS ORDERED: MAGNESIUM CITRATE 296 ML BOTTLE PO ONE ×2 (12:30→15:45)
[2017-08-02] MEDS ORDERED: NA PHOS,M-B/NA PHOS,DI-BA 1 EA ENEMA RC PRN ×2 (12:30→13:00)
[2017-08-02] MEDS ORDERED: PEG 3350/NA SULF,BICARB,CL/KCL 4,000 ML BOTTLE GT ONE (12:30)
[2017-08-02] MEDS: SUMATRIPTAN SUCCINATE 25 MG TABLET GT PRN (12:38)
--- NOTE | 2017-08-02 13:30 | NUR ---
seen the pt and no new orders noted. Addendum: 08/02/17 at 1651 by JUDY HERNANDEZ RN ordered some labs in am.
--- NOTE | 2017-08-02 16:15 | NUR ---
ISABELA Webster seen the pt and as pt diagnosed as colitis ,ordered to keep pt NPO except for medications,Normal saline 80cc/hr,Fleet enemax2 PRN .Golytely as pharmacy dosage,Magnesium citrate 296ml bottle one time only,Stool OB,and colonoscopy tomorrow after getting consent from family.New orders noted and carried out. Addendum: 08/02/17 at 1745 by JUDY HERNANDEZ RN also aware about the treatment planning of ISABELA Webster.
--- NOTE | 2017-08-02 17:30 | NUR ---
Iv line inserted on left forearm with first attempt,good blood return and no s/s of phlebitis and iv ns 1 L 80 cc/hr is started.
--- NOTE | 2017-08-02 21:00 | NUR ---
RN NOTES Stool specimen sent to lab for OB.
[2017-08-02] MEDS: METHYLNALTREXONE BROMIDE 12 MG/0.6 ML VIAL SQ SCH (21:25)
[2017-08-02] MEDS: PROSOURCE / PROSTAT (PYXIS) 30 ML UDC GT SCH (21:25)
[2017-08-02] MEDS: LATANOPROST EYE DROP 0.005% 2.5 ML BOTTLE EACHEYE SCH (21:26)
[2017-08-02] MEDS: PRAVASTATIN SODIUM 20 MG TABLET GT SCH (21:26)
[2017-08-02] MEDS: LORATADINE 10 MG TABLET GT SCH (21:26)
[2017-08-02 23:17] VITALS: BP 135/80
[2017-08-03] MEDS: ALBUTEROL HALF STRENGTH 1.25 MG/3 ML VIAL.NEB NEB SCH ×2 (00:40→07:35)
[2017-08-03] MEDS: CHLORHEXIDINE GLUCONATE 15 ML UDC MM SCH (06:01)
[2017-08-03 08:29] LABS: BASOPHILS # (AUTO) 0.1 /CMM (0.0-0.2); BASOPHILS % (AUTO) 1.9 % (0.0-2.0); EOSINOPHILS # (AUTO) 0.2 /CMM (0.0-0.7); EOSINOPHILS % (AUTO) 5.8 % (0.0-6.0); HEMATOCRIT 42 % (39-51); HEMOGLOBIN 14.1 g/dL (13.5-17.5); LYMPHOCYTES # (AUTO) 1.1 /CMM (0.8-4.8); LYMPHOCYTES % (AUTO) 30.2 % (20.0-44.0); MEAN CORPUSCULAR HEMOGLOBIN 32 PG (26.0-33.0); MEAN CORPUSCULAR HGB CONC 34 g/dl (31.0-36.0); MEAN CORPUSCULAR VOLUME 96 fL (80-96); MONOCYTES # (AUTO) 0.3 /CMM (0.1-1.30); MONOCYTES % (AUTO) 7.7 % (2.0-12.0); NEUTROPHILS % (AUTO) 54.4 % (43.0-81.0); PLATELET COUNT (AUTO) 65 /CMM (150-450); RDW COEFFICIENT OF VARIATION 12.6 (11.5-15.0); RED BLOOD CELL COUNT(AUTO) 4.35 MIL/uL (4.5-6.0); WHITE BLOOD COUNT (AUTO) 3.7 K/uL (4.3-11.0)
[2017-08-03 09:35] LABS: ALBUMIN 2.9 g/dL (3.4-5.0); BILIRUBIN,TOTAL 0.8 mg/dL (0.2-1.0); CALCIUM, SERUM 8.3 mg/dL (8.5-10.1); CREATININE 0.7 mg/dL (0.6-1.3); POTASSIUM 4.1 mmol/L (3.5-5.1); TOTAL PROTEIN, SERUM 6.7 g/dL (6.4-8.2)
[2017-08-03 11:07] LABS: EOSINOPHILS % (MANUAL) 2 % (0-4); LYMPHOCYTES % (MANUAL) 33 % (16-48); MONOCYTES % (MANUAL) 4 % (0-11.0); NEUTROPHILS % (MANUAL) 61 (42-76)
== END 2017-08-01 23:59 | disposition other institution (70) | DRG 189 ==
LOC: SA
PROVIDERS: ADMIT Internal Medicine; ATTEND Internal Medicine
DX: J96.10 Chronic respiratory failure, unspecified whether with hypoxia or hypercapnia (principal); G93.40 Encephalopathy, unspecified; D69.6 Thrombocytopenia, unspecified; I49.5 Sick sinus syndrome; R13.10 Dysphagia, unspecified; N39.0 Urinary tract infection, site not specified; K75.81 Nonalcoholic steatohepatitis (NASH); N13.9 Obstructive and reflux uropathy, unspecified; N40.0 Benign prostatic hyperplasia without lower urinary tract symptoms; I25.10 Atherosclerotic heart disease of native coronary artery without angina pectoris; Z86.73 Personal history of transient ischemic attack (TIA), and cerebral infarction without residual deficits; R53.81 Other malaise; R51 Headache; I73.9 Peripheral vascular disease, unspecified; L60.3 Nail dystrophy; K59.00 Constipation, unspecified
CPT/HCPCS: 31720; 36415; 71010-TC; 74000-TC; 80048-TC; 80053-TC; 81000-TC; 82140-TC; 82272-TC; 82565-TC; 82962-TC; 84443-TC; 84520-TC; 85025-TC; 85652-TC; 86140-TC; 86580-TC; 87070-TC; 87086-TC; 87186-TC; 92521; 94640-TC; 94762-TC; 94799-TC; 97001-TC; A4216; A4623; A6402; A7526; J1631; J2185; J2212; L8501; Q9963; Z7610

== ENCOUNTER 2017-07-02 10:10 | Outpatient (CLI) | payer MEDICARE, MEDICAID ==
[2017-07-02] MEDS ORDERED: DIATR MEGLU/DIATRIZOATE SODIUM 120 ML BOTTLE (GASTROGRAPHIN) ONE (10:25)
[2017-07-02] MEDS ORDERED: DIATR MEGLU/DIATRIZOATE SODIUM 30 ML BOTTLE (GASTROGRAPHIN) ONE (10:27)
== END 2017-07-02 23:59 | disposition home or self-care (01) ==
LOC: CT 10:10
PROVIDERS: ATTEND Internal Medicine
DX: K40.90 Unilateral inguinal hernia, without obstruction or gangrene, not specified as recurrent (principal); K76.89 Other specified diseases of liver; I25.10 Atherosclerotic heart disease of native coronary artery without angina pectoris; K57.30 Diverticulosis of large intestine without perforation or abscess without bleeding; Z90.49 Acquired absence of other specified parts of digestive tract
CPT/HCPCS: 74176; Q9963

== ENCOUNTER 2017-08-02 00:01 | Inpatient (IN) | END 2018-08-01 23:59 | disposition still patient (30) | DRG 189 | DX: J96.11 Chronic respiratory failure with hypoxia (principal); A41.9 Sepsis, unspecified organism; G93.40 Encephalopathy, unspecified; E87.3 Alkalosis; R64 Cachexia; D69.6 Thrombocytopenia, unspecified; I49.5 Sick sinus syndrome; R13.10 Dysphagia, unspecified; N13.9 Obstructive and reflux uropathy, unspecified; K75.81 Nonalcoholic steatohepatitis (NASH); I25.10 Atherosclerotic heart disease of native coronary artery without angina pectoris; Z86.73 Personal history of transient ischemic attack (TIA), and cerebral infarction without residual deficits; R53.81 Other malaise; I73.9 Peripheral vascular disease, unspecified; L60.3 Nail dystrophy; K59.00 Constipation, unspecified; A60.00 Herpesviral infection of urogenital system, unspecified; B35.1 Tinea unguium; B96.20 Unspecified Escherichia coli [E. coli] as the cause of diseases classified elsewhere; C44.91 Basal cell carcinoma of skin, unspecified; D64.9 Anemia, unspecified; D72.819 Decreased white blood cell count, unspecified; D73.81 Neutropenic splenomegaly; E55.9 Vitamin D deficiency, unspecified; F02.80 Dementia in other diseases classified elsewhere, unspecified severity, without behavioral disturbance, psychotic disturbance, mood disturbance, and anxiety; G40.409 Other generalized epilepsy and epileptic syndromes, not intractable, without status epilepticus; G43.909 Migraine, unspecified, not intractable, without status migrainosus; I10 Essential (primary) hypertension; I48.0 Paroxysmal atrial fibrillation; K31.84 Gastroparesis; K40.90 Unilateral inguinal hernia, without obstruction or gangrene, not specified as recurrent; T40.605A Adverse effect of unspecified narcotics, initial encounter; K59.03 Drug induced constipation; Y92.89 Other specified places as the place of occurrence of the external cause; N40.1 Benign prostatic hyperplasia with lower urinary tract symptoms; Z93.0 Tracheostomy status; Z93.1 Gastrostomy status; Z68.26 Body mass index [BMI] 26.0-26.9, adult; R32 Unspecified urinary incontinence; M19.90 Unspecified osteoarthritis, unspecified site; K64.8 Other hemorrhoids; L60.0 Ingrowing nail; L85.3 Xerosis cutis; L97.529 Non-pressure chronic ulcer of other part of left foot with unspecified severity; W34.00XS Accidental discharge from unspecified firearms or gun, sequela; S06.9X0S Unspecified intracranial injury without loss of consciousness, sequela; K74.60 Unspecified cirrhosis of liver ==

== ENCOUNTER → 2017-08-03 | Day surgery (SDC) | payer MEDICARE, MEDICAID ==
[~2017-08-03] MED LIST changes: +BACI/NEOM/POLY B OINT PKT 1 UDPKT PACKET TP SCH
== END | disposition home or self-care (01) ==
LOC: DS 09:26
PROVIDERS: ATTEND Internal Medicine Gastroenterology
DX: K57.30 Diverticulosis of large intestine without perforation or abscess without bleeding (principal); K64.8 Other hemorrhoids; D69.6 Thrombocytopenia, unspecified; F03.90 Unspecified dementia, unspecified severity, without behavioral disturbance, psychotic disturbance, mood disturbance, and anxiety
CPT/HCPCS: J2704

== ENCOUNTER 2018-08-02 | Inpatient (IN) | payer MEDICARE, MEDICAID, OTHER ==
[~2018-08-02] VITALS: Ht 172.7 cm; Wt 72.6 kg
[~2018-08-02] MED LIST changes: -BACI/NEOM/POLY B OINT PKT 1 UDPKT PACKET TP SCH
[2018-08-03] MEDS ORDERED: ONDANSETRON 4 MG TAB.RAPDIS GT PRN (08:30)
[2018-08-03] MEDS ORDERED: IPRATROPIUM NEB FS 0.5 MG/2.5 ML AMPUL.NEB NEB PRN (08:30)
[2018-08-03] MEDS ORDERED: Z GUARD REMEDY 4 OZ OINT TP PRN (08:30)
[2018-08-03] MEDS ORDERED: [UNRECOGNIZED DRUG - OTHER] GT PRN (08:30)
[2018-08-03] MEDS ORDERED: NITROGLYCERIN 0.4 MG/TAB BOTTLE SL PRN (08:30)
[2018-08-03] MEDS: ASPIRIN 81 MG TAB.CHEW GT SCH (08:30)
[2018-08-03] MEDS ORDERED: HYDROGEN PEROXIDE 480 ML BOTTLE TP PRN (08:30)
[2018-08-03] MEDS: BIOTIN 5000 MCG GT SCH (09:00)
[2018-08-03] MEDS: DICLOFENAC TOPICAL 100 GM GEL..GM. TP SCH ×2 (09:00→17:03)
[2018-08-03] MEDS: CHOLECALCIFEROL (VITAMIN D 3) 400 UNIT TABLET GT SCH ×2 (09:00→21:49)
[2018-08-03] MEDS: HYDROGEN PEROXIDE 480 ML BOTTLE TP SCH ×2 (09:00→21:49)
[2018-08-03] MEDS: FINASTERIDE (5 MG) 5 MG TABLET GT SCH (09:00)
[2018-08-03] MEDS: Z GUARD REMEDY 4 OZ OINT TP SCH ×2 (09:00→21:49)
[2018-08-03] MEDS: RIFAXIMIN 550 MG TABLET GT SCH ×2 (09:00→17:02)
[2018-08-03] MEDS: POTASSIUM CHLORIDE GT SCH (09:00)
[2018-08-03] MEDS: AMLODIPINE BESYLATE 5 MG TABLET GT SCH (09:00)
[2018-08-03] MEDS: [UNRECOGNIZED DRUG - OTHER] TP SCH ×2 (09:00→21:49)
[2018-08-03] MEDS: VITS A AND D/WHITE PET/LANOLIN 5 GM PACKET TP SCH ×4 (09:00→21:49)
--- NOTE | 2018-08-03 09:07 | NUR ---
Please see resident's previous account [id number] for all assessments and nurses notes. Originally admitted on 10/05/12.
--- NOTE | 2018-08-03 10:40 | NUR ---
Please see resident's previous account [id number] for Social Service assessments, evaluations and notes.
[2018-08-03] MEDS: PRUNE JUICE GT SCH (11:00)
--- NOTE | 2018-08-03 11:54 | NUR ---
airport utility worker called [employer] (medical supplier) and spoke with Denise. Informed her that the resident should be eligible for a new wheelchair. Denise instructed SKIP to fax referral packet to [phone] and she stated she will review and call back SKIP after lunch. SW will follow up. Addendum: 08/04/18 at 1411 by JERRY VALDIVIA airport utility worker received a call from Ratna from [employer]. Ratna noted that they will not be able to fulfill the request for a new wheelchair as the resident is still showing up under receiving [facility] services. She noted that the resident's first chair was never paid out from Medicare as he was still showing up under [facility] services. Ratna noted that the resident would need to be living at home or at a lower level of care (not skilled services) to receive a new wheelchair.
[2018-08-03 12:38] VITALS: BP 126/70
[2018-08-03] MEDS: ALBUTEROL HALF STRENGTH 1.25 MG/3 ML VIAL.NEB NEB SCH ×2 (13:30→19:35)
[2018-08-03] MEDS: JEVITY 1.2 CAL 1,000 ML BOTTLE GT PRN (18:03)
[2018-08-03] MEDS: CHLORHEXIDINE GLUCONATE 15 ML UDC MM SCH (18:05)
[2018-08-03] MEDS: BISACODYL SUPP (10 MG) 10 MG/SUPP.RECT SUPP.RECT RC PRN (18:55)
[2018-08-03 19:38] VITALS: BP 130/80
[2018-08-03] MEDS: LORATADINE 10 MG TABLET GT SCH (21:49)
[2018-08-03] MEDS: LATANOPROST EYE DROP 0.005% 2.5 ML BOTTLE EACHEYE SCH (21:49)
[2018-08-03] MEDS: BENAZEPRIL HCL 5 MG TABLET GT SCH (21:50)
[2018-08-03] MEDS: PRAVASTATIN SODIUM 20 MG TABLET GT SCH (21:50)
[2018-08-04] MEDS: ALBUTEROL HALF STRENGTH 1.25 MG/3 ML VIAL.NEB NEB SCH ×4 (01:57→19:58)
[2018-08-04] MEDS: CHLORHEXIDINE GLUCONATE 15 ML UDC MM SCH ×2 (05:43→18:04)
[2018-08-04] MEDS: JEVITY 1.2 CAL 1,000 ML BOTTLE GT PRN ×2 (06:50→21:44)
[2018-08-04 07:47] VITALS: BP 134/81
[2018-08-04] MEDS: BIOTIN 5000 MCG GT SCH (09:01)
[2018-08-04] MEDS: POTASSIUM CHLORIDE GT SCH (09:01)
[2018-08-04] MEDS: FINASTERIDE (5 MG) 5 MG TABLET GT SCH (09:02)
[2018-08-04] MEDS: AMLODIPINE BESYLATE 5 MG TABLET GT SCH (09:02)
[2018-08-04] MEDS: RIFAXIMIN 550 MG TABLET GT SCH ×2 (09:03→16:41)
[2018-08-04] MEDS: [UNRECOGNIZED DRUG - OTHER] TP SCH ×2 (09:04→20:20)
[2018-08-04] MEDS: CHOLECALCIFEROL (VITAMIN D 3) 400 UNIT TABLET GT SCH ×2 (09:04→20:20)
[2018-08-04] MEDS: HYDROGEN PEROXIDE 480 ML BOTTLE TP SCH ×2 (09:04→20:20)
[2018-08-04] MEDS: Z GUARD REMEDY 4 OZ OINT TP SCH ×2 (09:05→20:20)
[2018-08-04] MEDS: VITS A AND D/WHITE PET/LANOLIN 5 GM PACKET TP SCH ×4 (09:05→20:21)
[2018-08-04] MEDS: DICLOFENAC TOPICAL 100 GM GEL..GM. TP SCH ×2 (09:06→16:41)
[2018-08-04] MEDS: PRUNE JUICE GT SCH (11:02)
--- NOTE | 2018-08-04 14:13 | NUR ---
retail worker sent wheelchair referral to [facility] (tel: [phone], fax: [phone]). retail worker called and left a message on the referral line that referral packet will be sent to see if the resident qualifies for a new wheelchair. Addendum: 08/05/18 at 0956 by JERRY VALDIVIA Received a call back from [facility] who stated that they are not contracted with Medicare and that Medicare is the primary insurance for the resident.
--- NOTE | 2018-08-04 20:30 | NUR ---
Seen by Denise Pichardo no new order.
[2018-08-04 20:47] VITALS: BP 156/74
[2018-08-04] MEDS: LORATADINE 10 MG TABLET GT SCH (21:14)
[2018-08-04] MEDS: PRAVASTATIN SODIUM 20 MG TABLET GT SCH (21:14)
[2018-08-04] MEDS: LATANOPROST EYE DROP 0.005% 2.5 ML BOTTLE EACHEYE SCH (21:14)
[2018-08-04] MEDS: BENAZEPRIL HCL 5 MG TABLET GT SCH (21:14)
[2018-08-04] MEDS: HYDROCODONE/APAP 7.5/325MG 1 EACH TABLET GT PRN (23:32)
[2018-08-05] MEDS: ALBUTEROL HALF STRENGTH 1.25 MG/3 ML VIAL.NEB NEB SCH ×4 (01:40→19:50)
[2018-08-05] MEDS: CHLORHEXIDINE GLUCONATE 15 ML UDC MM SCH ×2 (05:33→18:14)
[2018-08-05 08:02] VITALS: BP 135/87
[2018-08-05] MEDS: ASPIRIN 81 MG TAB.CHEW GT SCH (09:03)
[2018-08-05] MEDS: BIOTIN 5000 MCG GT SCH (09:03)
[2018-08-05] MEDS: POTASSIUM CHLORIDE GT SCH (09:03)
[2018-08-05] MEDS: AMLODIPINE BESYLATE 5 MG TABLET GT SCH (09:04)
[2018-08-05] MEDS: Z GUARD REMEDY 4 OZ OINT TP SCH ×2 (09:04→20:42)
[2018-08-05] MEDS: CHOLECALCIFEROL (VITAMIN D 3) 400 UNIT TABLET GT SCH ×2 (09:04→20:42)
[2018-08-05] MEDS: RIFAXIMIN 550 MG TABLET GT SCH ×2 (09:04→16:21)
[2018-08-05] MEDS: FINASTERIDE (5 MG) 5 MG TABLET GT SCH (09:04)
[2018-08-05] MEDS: [UNRECOGNIZED DRUG - OTHER] TP SCH ×2 (09:04→20:42)
[2018-08-05] MEDS: VITS A AND D/WHITE PET/LANOLIN 5 GM PACKET TP SCH ×4 (09:04→20:42)
[2018-08-05] MEDS: HYDROGEN PEROXIDE 480 ML BOTTLE TP SCH ×2 (09:04→20:42)
[2018-08-05] MEDS: DICLOFENAC TOPICAL 100 GM GEL..GM. TP SCH ×2 (09:05→16:21)
--- NOTE | 2018-08-05 10:07 | NUR ---
SKIP spoke to Marjorie at [employer] [employer] [place] [address] and she asked SKIP to send referral packet so she can verify eligibility (fax: [phone]). line worker will follow up. line worker previously tried calling: [employer] [facility] [employer] However, social science manager was told that high back wheelchairs are considered custom made and Medicare will not cover.
[2018-08-05] MEDS: PRUNE JUICE GT SCH (11:00)
--- NOTE | 2018-08-05 14:39 | NUR ---
glueline worker met with the resident's Asha Lopez to complete intake paperwork (patient rights acknowledgement, documentation of preferred intensity of care, Important Message from Medicare, conditions of admission, [place] Standard Admission Agreement, and voluntary prior express consent form). glueline worker educated the resident's on advanced healthcare directives/conservatorship. Resident's already has conservatorship of the resident and paperwork is placed in the resident's chart. She wishes for the resident to remain full code (CPR with maximum treatment)- NO blood transfusions. Intake paperwork placed into the resident's chart.
[2018-08-05] MEDS: HYDROCODONE/APAP 7.5/325MG 1 EACH TABLET GT PRN (15:29)
--- NOTE | 2018-08-05 16:00 | NUR ---
caseworker intake spoke with the resident's about the wheelchair. caseworker intake indicated that it is most likely that medicare will NOT cover the resident's wheelchair since the resident's first wheelchair was never fully paid by Medicare, as the resident is in nursing home and resident's insurance code is not covered (showing that he is in nursing home care). She asked why other resident's are able to get new wheelchairs and SW indicated that it is because they have different insurance and that it all depends on the insurance type. She was not too happy with the response. SW noted that she would try one other place but assured her that they will also deny since it depends on the insurance and not the medical supplier that is used.
[2018-08-05] MEDS: JEVITY 1.2 CAL 1,000 ML BOTTLE GT PRN (18:28)
--- NOTE | 2018-08-05 18:33 | NUR ---
Seen by ISABELA Pichardo, no new order given.
[2018-08-05 20:50] VITALS: BP 122/74
[2018-08-05] MEDS: BENAZEPRIL HCL 5 MG TABLET GT SCH (21:30)
[2018-08-05] MEDS: LATANOPROST EYE DROP 0.005% 2.5 ML BOTTLE EACHEYE SCH (21:30)
[2018-08-05] MEDS: PRAVASTATIN SODIUM 20 MG TABLET GT SCH (21:30)
[2018-08-05] MEDS: LORATADINE 10 MG TABLET GT SCH (21:30)
[2018-08-06] MEDS: ALBUTEROL HALF STRENGTH 1.25 MG/3 ML VIAL.NEB NEB SCH ×4 (01:52→19:46)
[2018-08-06] MEDS: CHLORHEXIDINE GLUCONATE 15 ML UDC MM SCH ×2 (05:32→17:38)
[2018-08-06] MEDS: MAGNESIUM HYDROXIDE 30 ML UDC GT PRN ×2 (05:32→20:00)
[2018-08-06] MEDS: SIMETHICONE SUSP 40 MG/0.6 ML BOTTLE GT PRN (05:32)
[2018-08-06 07:49] VITALS: BP 119/76
[2018-08-06] MEDS: BIOTIN 5000 MCG GT SCH (08:45)
[2018-08-06] MEDS: POTASSIUM CHLORIDE GT SCH (08:45)
[2018-08-06] MEDS: FINASTERIDE (5 MG) 5 MG TABLET GT SCH (08:46)
[2018-08-06] MEDS: VITS A AND D/WHITE PET/LANOLIN 5 GM PACKET TP SCH ×4 (08:46→20:54)
[2018-08-06] MEDS: Z GUARD REMEDY 4 OZ OINT TP SCH ×2 (08:46→20:54)
[2018-08-06] MEDS: [UNRECOGNIZED DRUG - OTHER] TP SCH ×2 (08:46→20:54)
[2018-08-06] MEDS: DICLOFENAC TOPICAL 100 GM GEL..GM. TP SCH ×2 (08:46→16:27)
[2018-08-06] MEDS: CHOLECALCIFEROL (VITAMIN D 3) 400 UNIT TABLET GT SCH ×2 (08:46→20:54)
[2018-08-06] MEDS: RIFAXIMIN 550 MG TABLET GT SCH ×2 (08:46→16:27)
[2018-08-06] MEDS: HYDROGEN PEROXIDE 480 ML BOTTLE TP SCH ×2 (08:46→20:54)
[2018-08-06] MEDS: AMLODIPINE BESYLATE 5 MG TABLET GT SCH (08:46)
[2018-08-06] MEDS: PRUNE JUICE GT SCH (11:39)
[2018-08-06 19:57] VITALS: BP 117/63
[2018-08-06] MEDS: BENAZEPRIL HCL 5 MG TABLET GT SCH (21:17)
[2018-08-06] MEDS: LATANOPROST EYE DROP 0.005% 2.5 ML BOTTLE EACHEYE SCH (21:17)
[2018-08-06] MEDS: LORATADINE 10 MG TABLET GT SCH (21:17)
[2018-08-06] MEDS: PRAVASTATIN SODIUM 20 MG TABLET GT SCH (21:17)
[2018-08-07] MEDS: ALBUTEROL HALF STRENGTH 1.25 MG/3 ML VIAL.NEB NEB SCH ×4 (00:55→19:36)
[2018-08-07] MEDS: CHLORHEXIDINE GLUCONATE 15 ML UDC MM SCH ×2 (05:34→17:46)
[2018-08-07] MEDS: SIMETHICONE SUSP 40 MG/0.6 ML BOTTLE GT PRN (05:34)
[2018-08-07] MEDS: JEVITY 1.2 CAL 1,000 ML BOTTLE GT PRN (05:35)
--- NOTE | 2018-08-07 07:30 | NUR ---
RT PATIENT REC'D TRACHED ON COOL AEROSOL FRANCIE WELL. PATIENT SUCTIONED WITH MOD AMT OF PALE SEMITHICK SECRETIONS. PATIENT STABLE AND APPEARS COMFORTABLE. NO SOB NOTED. AMBU BAG AT HOB. Addendum: 08/09/18 at 0710 by CURT COLLINS RT Amended: Links added.
[2018-08-07 07:31] VITALS: BP 119/70
[2018-08-07] MEDS: ASPIRIN 81 MG TAB.CHEW GT SCH (08:30)
[2018-08-07] MEDS: DICLOFENAC TOPICAL 100 GM GEL..GM. TP SCH ×2 (09:00→16:48)
[2018-08-07] MEDS: HYDROGEN PEROXIDE 480 ML BOTTLE TP SCH ×2 (09:00→21:26)
[2018-08-07] MEDS: POTASSIUM CHLORIDE GT SCH (09:00)
[2018-08-07] MEDS: VITS A AND D/WHITE PET/LANOLIN 5 GM PACKET TP SCH ×4 (09:00→21:27)
[2018-08-07] MEDS: CHOLECALCIFEROL (VITAMIN D 3) 400 UNIT TABLET GT SCH ×2 (09:00→21:33)
[2018-08-07] MEDS: AMLODIPINE BESYLATE 5 MG TABLET GT SCH (09:00)
[2018-08-07] MEDS: Z GUARD REMEDY 4 OZ OINT TP SCH ×2 (09:00→21:26)
[2018-08-07] MEDS: FINASTERIDE (5 MG) 5 MG TABLET GT SCH (09:00)
[2018-08-07] MEDS: RIFAXIMIN 550 MG TABLET GT SCH ×2 (09:00→16:48)
[2018-08-07] MEDS: BIOTIN 5000 MCG GT SCH (09:00)
[2018-08-07] MEDS: [UNRECOGNIZED DRUG - OTHER] TP SCH ×2 (09:00→21:26)
[2018-08-07] MEDS: PRUNE JUICE GT SCH (11:30)
--- NOTE | 2018-08-07 19:46 | NUR ---
RT NOTE: PLACED TRACH PT BACK ON COOL AEROSOL. AMBU BAG/BACK UP TRACH @ BEDSIDE. Q6 BREATHING TX GIVEN PER MD ORDERS WITH NO ADVERSE REACTION NOTED. SX DONE PRN. TRACH SECURED AND PATENT. NO RESP DISTRESS NOTED AT THIS TIME. WILL CONTINUE TO MONITOR PT. Addendum: 08/08/18 at 0544 by LINNEA TOVAR RT Amended: Links added.
[2018-08-07 20:01] VITALS: BP 142/85
[2018-08-07 20:37] VITALS: BP 119/67
[2018-08-07] MEDS: LATANOPROST EYE DROP 0.005% 2.5 ML BOTTLE EACHEYE SCH (21:29)
[2018-08-07] MEDS: BENAZEPRIL HCL 5 MG TABLET GT SCH (21:31)
[2018-08-07] MEDS: PRAVASTATIN SODIUM 20 MG TABLET GT SCH (21:32)
[2018-08-07] MEDS: LORATADINE 10 MG TABLET GT SCH (21:33)
[2018-08-08] MEDS: HYDROCODONE/APAP 7.5/325MG 1 EACH TABLET GT PRN (00:29)
[2018-08-08] MEDS: ALBUTEROL HALF STRENGTH 1.25 MG/3 ML VIAL.NEB NEB SCH ×4 (01:47→19:27)
[2018-08-08] MEDS: CHLORHEXIDINE GLUCONATE 15 ML UDC MM SCH ×2 (05:50→17:14)
[2018-08-08 07:41] VITALS: BP 114/77
[2018-08-08] MEDS: VITS A AND D/WHITE PET/LANOLIN 5 GM PACKET TP SCH ×4 (09:00→21:12)
[2018-08-08] MEDS: [UNRECOGNIZED DRUG - OTHER] TP SCH ×2 (09:00→21:11)
[2018-08-08] MEDS: HYDROGEN PEROXIDE 480 ML BOTTLE TP SCH ×2 (09:00→21:11)
[2018-08-08] MEDS: Z GUARD REMEDY 4 OZ OINT TP SCH ×2 (09:00→21:11)
[2018-08-08] MEDS: DICLOFENAC TOPICAL 100 GM GEL..GM. TP SCH ×2 (09:00→17:14)
[2018-08-08] MEDS: FINASTERIDE (5 MG) 5 MG TABLET GT SCH (09:15)
[2018-08-08] MEDS: CHOLECALCIFEROL (VITAMIN D 3) 400 UNIT TABLET GT SCH ×2 (09:15→21:11)
[2018-08-08] MEDS: BIOTIN 5000 MCG GT SCH (09:15)
[2018-08-08] MEDS: AMLODIPINE BESYLATE 5 MG TABLET GT SCH (09:15)
[2018-08-08] MEDS: RIFAXIMIN 550 MG TABLET GT SCH ×2 (09:15→17:14)
[2018-08-08] MEDS: POTASSIUM CHLORIDE GT SCH (09:15)
[2018-08-08] MEDS: ACETAMINOPHEN 650 MG/20 ML UDC- SA PATIENTS-PAIN ONLY GT PRN (09:17)
--- NOTE | 2018-08-08 09:41 | NUR ---
inventory worker followed up with Baldomero from [facility] [employer] [place]. [address] [place] [address] . Baldomero noted that they are not able to fulfill the order as resident is not under penitentiary care but rather showing under chcf services. SW informed the charge nurse.
[2018-08-08] MEDS: PRUNE JUICE GT SCH (11:00)
[2018-08-08] MEDS: MAGNESIUM HYDROXIDE 30 ML UDC GT PRN (12:40)
[2018-08-08] MEDS: JEVITY 1.2 CAL 1,000 ML BOTTLE GT PRN (17:14)
[2018-08-08 19:54] VITALS: BP 125/79
[2018-08-08] MEDS: PRAVASTATIN SODIUM 20 MG TABLET GT SCH (21:12)
[2018-08-08] MEDS: LORATADINE 10 MG TABLET GT SCH (21:12)
[2018-08-08] MEDS: LATANOPROST EYE DROP 0.005% 2.5 ML BOTTLE EACHEYE SCH (21:12)
[2018-08-08] MEDS: BENAZEPRIL HCL 5 MG TABLET GT SCH (21:12)
[2018-08-09] MEDS: ALBUTEROL HALF STRENGTH 1.25 MG/3 ML VIAL.NEB NEB SCH ×4 (01:03→19:33)
[2018-08-09] MEDS: CHLORHEXIDINE GLUCONATE 15 ML UDC MM SCH ×2 (05:28→17:23)
[2018-08-09 07:37] VITALS: BP 125/80
[2018-08-09] MEDS: ASPIRIN 81 MG TAB.CHEW GT SCH (08:42)
[2018-08-09] MEDS: POTASSIUM CHLORIDE GT SCH (08:42)
[2018-08-09] MEDS: BIOTIN 5000 MCG GT SCH (08:42)
[2018-08-09] MEDS: RIFAXIMIN 550 MG TABLET GT SCH ×2 (08:43→17:19)
[2018-08-09] MEDS: AMLODIPINE BESYLATE 5 MG TABLET GT SCH (08:43)
[2018-08-09] MEDS: FINASTERIDE (5 MG) 5 MG TABLET GT SCH (08:43)
[2018-08-09] MEDS: CHOLECALCIFEROL (VITAMIN D 3) 400 UNIT TABLET GT SCH ×2 (08:44→21:16)
[2018-08-09] MEDS: [UNRECOGNIZED DRUG - OTHER] TP SCH ×2 (09:00→21:16)
[2018-08-09] MEDS: Z GUARD REMEDY 4 OZ OINT TP SCH ×2 (09:00→21:16)
[2018-08-09] MEDS: DICLOFENAC TOPICAL 100 GM GEL..GM. TP SCH ×2 (09:00→17:19)
[2018-08-09] MEDS: HYDROGEN PEROXIDE 480 ML BOTTLE TP SCH ×2 (09:00→21:16)
[2018-08-09] MEDS: VITS A AND D/WHITE PET/LANOLIN 5 GM PACKET TP SCH ×4 (09:00→21:23)
[2018-08-09] MEDS: PRUNE JUICE GT SCH (11:00)
[2018-08-09] MEDS: MAGNESIUM HYDROXIDE 30 ML UDC GT PRN (12:16)
[2018-08-09] MEDS: HYDROCODONE/APAP 7.5/325MG 1 EACH TABLET GT PRN (12:54)
[2018-08-09] MEDS: JEVITY 1.2 CAL 1,000 ML BOTTLE GT PRN (13:35)
[2018-08-09 20:00] VITALS: BP 136/76
[2018-08-09] MEDS: LATANOPROST EYE DROP 0.005% 2.5 ML BOTTLE EACHEYE SCH (21:23)
[2018-08-09] MEDS: BENAZEPRIL HCL 5 MG TABLET GT SCH (21:23)
[2018-08-09] MEDS: LORATADINE 10 MG TABLET GT SCH (21:23)
[2018-08-09] MEDS: PRAVASTATIN SODIUM 20 MG TABLET GT SCH (21:23)
[2018-08-10] MEDS: ALBUTEROL HALF STRENGTH 1.25 MG/3 ML VIAL.NEB NEB SCH ×4 (01:14→19:30)
[2018-08-10] MEDS: CHLORHEXIDINE GLUCONATE 15 ML UDC MM SCH ×2 (05:32→18:59)
[2018-08-10 07:36] VITALS: BP 109/67
[2018-08-10] MEDS: FINASTERIDE (5 MG) 5 MG TABLET GT SCH (08:32)
[2018-08-10] MEDS: BIOTIN 5000 MCG GT SCH (08:32)
[2018-08-10] MEDS: CHOLECALCIFEROL (VITAMIN D 3) 400 UNIT TABLET GT SCH ×2 (08:32→21:18)
[2018-08-10] MEDS: POTASSIUM CHLORIDE GT SCH (08:32)
[2018-08-10] MEDS: AMLODIPINE BESYLATE 5 MG TABLET GT SCH (08:32)
[2018-08-10] MEDS: RIFAXIMIN 550 MG TABLET GT SCH ×2 (08:32→16:48)
[2018-08-10] MEDS: VITS A AND D/WHITE PET/LANOLIN 5 GM PACKET TP SCH ×4 (08:33→21:18)
[2018-08-10] MEDS: DICLOFENAC TOPICAL 100 GM GEL..GM. TP SCH ×2 (08:33→16:48)
[2018-08-10] MEDS: HYDROGEN PEROXIDE 480 ML BOTTLE TP SCH ×2 (08:33→21:18)
[2018-08-10] MEDS: [UNRECOGNIZED DRUG - OTHER] TP SCH ×2 (08:33→21:18)
[2018-08-10] MEDS: Z GUARD REMEDY 4 OZ OINT TP SCH ×2 (08:33→21:18)
[2018-08-10] MEDS: SUMATRIPTAN SUCCINATE 25 MG TABLET GT PRN (11:50)
[2018-08-10] MEDS: PRUNE JUICE GT SCH (11:50)
[2018-08-10] MEDS: BISACODYL SUPP (10 MG) 10 MG/SUPP.RECT SUPP.RECT RC PRN (13:14)
[2018-08-10] MEDS: JEVITY 1.2 CAL 1,000 ML BOTTLE GT PRN (16:48)
[2018-08-10 20:00] VITALS: BP 112/66
[2018-08-10] MEDS: LORATADINE 10 MG TABLET GT SCH (21:18)
[2018-08-10] MEDS: LATANOPROST EYE DROP 0.005% 2.5 ML BOTTLE EACHEYE SCH (21:18)
[2018-08-10] MEDS: PRAVASTATIN SODIUM 20 MG TABLET GT SCH (21:19)
[2018-08-10] MEDS: BENAZEPRIL HCL 5 MG TABLET GT SCH (21:19)
[2018-08-11] MEDS: ALBUTEROL HALF STRENGTH 1.25 MG/3 ML VIAL.NEB NEB SCH ×4 (01:56→20:14)
[2018-08-11] MEDS: CHLORHEXIDINE GLUCONATE 15 ML UDC MM SCH ×2 (05:39→17:34)
[2018-08-11 07:38] VITALS: BP 111/63
[2018-08-11] MEDS: ASPIRIN 81 MG TAB.CHEW GT SCH (08:30)
[2018-08-11] MEDS: AMLODIPINE BESYLATE 5 MG TABLET GT SCH (09:00)
[2018-08-11] MEDS: CHOLECALCIFEROL (VITAMIN D 3) 400 UNIT TABLET GT SCH ×2 (09:00→21:19)
[2018-08-11] MEDS: HYDROGEN PEROXIDE 480 ML BOTTLE TP SCH ×2 (09:00→21:19)
[2018-08-11] MEDS: RIFAXIMIN 550 MG TABLET GT SCH ×2 (09:00→16:38)
[2018-08-11] MEDS: Z GUARD REMEDY 4 OZ OINT TP SCH ×2 (09:00→21:19)
[2018-08-11] MEDS: VITS A AND D/WHITE PET/LANOLIN 5 GM PACKET TP SCH ×4 (09:00→21:19)
[2018-08-11] MEDS: BIOTIN 5000 MCG GT SCH (09:00)
[2018-08-11] MEDS: DICLOFENAC TOPICAL 100 GM GEL..GM. TP SCH ×2 (09:00→16:38)
[2018-08-11] MEDS: FINASTERIDE (5 MG) 5 MG TABLET GT SCH (09:00)
[2018-08-11] MEDS: POTASSIUM CHLORIDE GT SCH (09:00)
[2018-08-11] MEDS: [UNRECOGNIZED DRUG - OTHER] TP SCH ×2 (09:00→21:19)
[2018-08-11] MEDS: PRUNE JUICE GT SCH (11:58)
[2018-08-11] MEDS: SIMETHICONE SUSP 40 MG/0.6 ML BOTTLE GT PRN (11:58)
[2018-08-11] MEDS: JEVITY 1.2 CAL 1,000 ML BOTTLE GT PRN (11:58)
[2018-08-11] MEDS: HYDROCODONE/APAP 7.5/325MG 1 EACH TABLET GT PRN ×2 (11:59→21:57)
[2018-08-11 19:43] VITALS: BP 145/51
[2018-08-11] MEDS: LATANOPROST EYE DROP 0.005% 2.5 ML BOTTLE EACHEYE SCH (21:19)
[2018-08-11] MEDS: LORATADINE 10 MG TABLET GT SCH (21:19)
[2018-08-11] MEDS: BENAZEPRIL HCL 5 MG TABLET GT SCH (21:20)
[2018-08-11] MEDS: PRAVASTATIN SODIUM 20 MG TABLET GT SCH (21:20)
[2018-08-11] MEDS: MAGNESIUM HYDROXIDE 30 ML UDC GT PRN (21:56)
[2018-08-12] MEDS: ALBUTEROL HALF STRENGTH 1.25 MG/3 ML VIAL.NEB NEB SCH ×4 (02:03→19:55)
[2018-08-12] MEDS: CHLORHEXIDINE GLUCONATE 15 ML UDC MM SCH ×2 (05:47→17:12)
[2018-08-12 08:00] VITALS: BP 119/72
--- NOTE | 2018-08-12 08:30 | NUR ---
Seen and examined by Dr. Jerry rain.
[2018-08-12] MEDS: BIOTIN 5000 MCG GT SCH (09:24)
[2018-08-12] MEDS: [UNRECOGNIZED DRUG - OTHER] TP SCH ×2 (09:24→20:45)
[2018-08-12] MEDS: POTASSIUM CHLORIDE GT SCH (09:24)
[2018-08-12] MEDS: FINASTERIDE (5 MG) 5 MG TABLET GT SCH (09:24)
[2018-08-12] MEDS: Z GUARD REMEDY 4 OZ OINT TP SCH ×2 (09:24→20:45)
[2018-08-12] MEDS: AMLODIPINE BESYLATE 5 MG TABLET GT SCH (09:24)
[2018-08-12] MEDS: HYDROGEN PEROXIDE 480 ML BOTTLE TP SCH ×2 (09:24→20:45)
[2018-08-12] MEDS: RIFAXIMIN 550 MG TABLET GT SCH ×2 (09:24→16:10)
[2018-08-12] MEDS: CHOLECALCIFEROL (VITAMIN D 3) 400 UNIT TABLET GT SCH ×2 (09:24→20:45)
[2018-08-12] MEDS: DICLOFENAC TOPICAL 100 GM GEL..GM. TP SCH ×2 (09:25→16:10)
[2018-08-12] MEDS: VITS A AND D/WHITE PET/LANOLIN 5 GM PACKET TP SCH ×4 (09:25→20:45)
--- NOTE | 2018-08-12 10:08 | NUR ---
healthcare social worker spoke to the resident's per her request. Resident's indicated that she was charged $1,300 for October 2016 (for the resident's SOC) and [facility]. Resident does not have a SOC and resident's was instructed to contact the [facility] social work faculty member to see what happened. She noted that she does have the contact information for her [facility] SW and that his name is Dwayne. She noted she will follow up with him.
[2018-08-12] MEDS: PRUNE JUICE GT SCH (11:35)
[2018-08-12] MEDS: HYDROCODONE/APAP 7.5/325MG 1 EACH TABLET GT PRN ×2 (11:37→19:07)
--- NOTE | 2018-08-12 12:19 | NUR ---
SKIP informed the resident's about upcoming IDT meeting on Sunday August 19, 2018 from 12:30-1:30PM. She stated that she will be attending in person.
[2018-08-12] MEDS: BISACODYL SUPP (10 MG) 10 MG/SUPP.RECT SUPP.RECT RC PRN (18:44)
[2018-08-12] MEDS: JEVITY 1.2 CAL 1,000 ML BOTTLE GT PRN (18:48)
[2018-08-12 19:42] VITALS: BP 149/81
--- NOTE | 2018-08-12 20:03 | NUR ---
Patient received on room and placed back on 28% aerosol t-tube, tolerating with no adverse reactions. Suctioned for minimal, thick, yellow secretions. Given in-line treatments with no adverse reactions. Ambu bag at bedside. Addendum: 08/12/18 at 2004 by MINOO CORRIGAN RT Amended: Links added.
[2018-08-12] MEDS: LORATADINE 10 MG TABLET GT SCH (21:19)
[2018-08-12] MEDS: BENAZEPRIL HCL 5 MG TABLET GT SCH (21:19)
[2018-08-12] MEDS: PRAVASTATIN SODIUM 20 MG TABLET GT SCH (21:19)
[2018-08-12] MEDS: LATANOPROST EYE DROP 0.005% 2.5 ML BOTTLE EACHEYE SCH (21:19)
[2018-08-13] MEDS: ALBUTEROL HALF STRENGTH 1.25 MG/3 ML VIAL.NEB NEB SCH ×4 (02:01→20:07)
[2018-08-13] MEDS: CHLORHEXIDINE GLUCONATE 15 ML UDC MM SCH ×2 (05:01→18:28)
[2018-08-13] MEDS: BISACODYL SUPP (10 MG) 10 MG/SUPP.RECT SUPP.RECT RC PRN (07:09)
[2018-08-13 07:35] VITALS: BP 122/72
[2018-08-13] MEDS: ASPIRIN 81 MG TAB.CHEW GT SCH (08:58)
[2018-08-13] MEDS: POTASSIUM CHLORIDE GT SCH (08:59)
[2018-08-13] MEDS: HYDROGEN PEROXIDE 480 ML BOTTLE TP SCH ×2 (09:00→20:16)
[2018-08-13] MEDS: Z GUARD REMEDY 4 OZ OINT TP SCH ×2 (09:00→20:16)
[2018-08-13] MEDS: AMLODIPINE BESYLATE 5 MG TABLET GT SCH (09:00)
[2018-08-13] MEDS: DICLOFENAC TOPICAL 100 GM GEL..GM. TP SCH ×2 (09:00→17:00)
[2018-08-13] MEDS: VITS A AND D/WHITE PET/LANOLIN 5 GM PACKET TP SCH ×4 (09:00→20:16)
[2018-08-13] MEDS: BIOTIN 5000 MCG GT SCH (09:00)
[2018-08-13] MEDS: [UNRECOGNIZED DRUG - OTHER] TP SCH ×2 (09:00→20:16)
[2018-08-13] MEDS: RIFAXIMIN 550 MG TABLET GT SCH ×2 (09:00→17:00)
[2018-08-13] MEDS: FINASTERIDE (5 MG) 5 MG TABLET GT SCH (09:00)
[2018-08-13] MEDS: CHOLECALCIFEROL (VITAMIN D 3) 400 UNIT TABLET GT SCH ×2 (09:03→20:16)
[2018-08-13] MEDS: JEVITY 1.2 CAL 1,000 ML BOTTLE GT PRN ×2 (09:07→23:41)
[2018-08-13] MEDS: PRUNE JUICE GT SCH (11:00)
[2018-08-13 19:31] VITALS: BP 106/72
[2018-08-13] MEDS: HYDROCODONE/APAP 7.5/325MG 1 EACH TABLET GT PRN (20:16)
--- NOTE | 2018-08-13 20:18 | NUR ---
RT Placed pt back on CA w charted settings per MD order. Trach is secure and patent w tonny @ [facility]. n tx given w no adverse reactions. No respiratory distress noted @ this time. Will continue to monitor. Addendum: 08/13/18 at 2051 by MICHELA ENRIQUEZ RT Amended: Links added.
[2018-08-13] MEDS: LORATADINE 10 MG TABLET GT SCH (21:14)
[2018-08-13] MEDS: LATANOPROST EYE DROP 0.005% 2.5 ML BOTTLE EACHEYE SCH (21:14)
[2018-08-13] MEDS: BENAZEPRIL HCL 5 MG TABLET GT SCH (21:15)
[2018-08-13] MEDS: PRAVASTATIN SODIUM 20 MG TABLET GT SCH (21:15)
[2018-08-14] MEDS: ALBUTEROL HALF STRENGTH 1.25 MG/3 ML VIAL.NEB NEB SCH ×4 (01:30→19:53)
[2018-08-14] MEDS: CHLORHEXIDINE GLUCONATE 15 ML UDC MM SCH ×2 (05:21→17:46)
[2018-08-14 07:50] VITALS: BP 127/82
--- NOTE | 2018-08-14 08:31 | NUR ---
RT PT REC'D TRACHED ON CHARTED SETTINGS, PT IS AWAKE, ALERT, RESPONSIVE TO PAIN, TRACH TUBE PATENT, SECURE, IN PLACE, AMBU BAG @ HOB, NO SOB, NO RESPIRATORY DISTRESS NOTED AT THIS TIME, HHN TX GIVEN WITHOUT ADVERSE REACTION, WILL CONTINUE TO MONITOR. Addendum: 08/14/18 at 0832 by KRYSTLE ELIZABETH RT Amended: Links added.
[2018-08-14] MEDS: POTASSIUM CHLORIDE GT SCH (09:01)
[2018-08-14] MEDS: AMLODIPINE BESYLATE 5 MG TABLET GT SCH (09:01)
[2018-08-14] MEDS: CHOLECALCIFEROL (VITAMIN D 3) 400 UNIT TABLET GT SCH ×2 (09:01→20:47)
[2018-08-14] MEDS: FINASTERIDE (5 MG) 5 MG TABLET GT SCH (09:01)
[2018-08-14] MEDS: BIOTIN 5000 MCG GT SCH (09:01)
[2018-08-14] MEDS: HYDROGEN PEROXIDE 480 ML BOTTLE TP SCH ×2 (09:02→20:47)
[2018-08-14] MEDS: VITS A AND D/WHITE PET/LANOLIN 5 GM PACKET TP SCH ×4 (09:02→20:48)
[2018-08-14] MEDS: Z GUARD REMEDY 4 OZ OINT TP SCH ×2 (09:02→20:47)
[2018-08-14] MEDS: RIFAXIMIN 550 MG TABLET GT SCH ×2 (09:02→17:08)
[2018-08-14] MEDS: [UNRECOGNIZED DRUG - OTHER] TP SCH ×2 (09:02→20:47)
[2018-08-14] MEDS: DICLOFENAC TOPICAL 100 GM GEL..GM. TP SCH ×2 (09:02→17:08)
[2018-08-14] MEDS: PRUNE JUICE GT SCH (11:00)
[2018-08-14] MEDS: HYDROCODONE/APAP 7.5/325MG 1 EACH TABLET GT PRN (17:25)
[2018-08-14] MEDS: JEVITY 1.2 CAL 1,000 ML BOTTLE GT PRN (18:18)
[2018-08-14 19:39] VITALS: BP 139/83
[2018-08-14] MEDS: LORATADINE 10 MG TABLET GT SCH (22:13)
[2018-08-14] MEDS: LATANOPROST EYE DROP 0.005% 2.5 ML BOTTLE EACHEYE SCH (22:13)
[2018-08-14] MEDS: BENAZEPRIL HCL 5 MG TABLET GT SCH (22:14)
[2018-08-14] MEDS: PRAVASTATIN SODIUM 20 MG TABLET GT SCH (22:15)
[2018-08-14] MEDS: SUMATRIPTAN SUCCINATE 25 MG TABLET GT PRN (22:19)
[2018-08-15] MEDS: ALBUTEROL HALF STRENGTH 1.25 MG/3 ML VIAL.NEB NEB SCH ×4 (00:47→18:49)
[2018-08-15] MEDS: CHLORHEXIDINE GLUCONATE 15 ML UDC MM SCH ×2 (05:27→17:35)
[2018-08-15] MEDS: JEVITY 1.2 CAL 1,000 ML BOTTLE GT PRN (06:52)
[2018-08-15] MEDS: ASPIRIN 81 MG TAB.CHEW GT SCH (08:30)
[2018-08-15] MEDS: [UNRECOGNIZED DRUG - OTHER] TP SCH ×2 (09:00→21:06)
[2018-08-15] MEDS: VITS A AND D/WHITE PET/LANOLIN 5 GM PACKET TP SCH ×4 (09:00→21:06)
[2018-08-15] MEDS: HYDROGEN PEROXIDE 480 ML BOTTLE TP SCH ×2 (09:00→21:06)
[2018-08-15] MEDS: Z GUARD REMEDY 4 OZ OINT TP SCH ×2 (09:00→21:06)
[2018-08-15] MEDS: AMLODIPINE BESYLATE 5 MG TABLET GT SCH (09:00)
[2018-08-15] MEDS: POTASSIUM CHLORIDE GT SCH (09:32)
[2018-08-15] MEDS: BIOTIN 5000 MCG GT SCH (09:32)
[2018-08-15] MEDS: RIFAXIMIN 550 MG TABLET GT SCH ×2 (09:33→17:35)
[2018-08-15] MEDS: FINASTERIDE (5 MG) 5 MG TABLET GT SCH (09:33)
[2018-08-15] MEDS: CHOLECALCIFEROL (VITAMIN D 3) 400 UNIT TABLET GT SCH ×2 (09:33→21:06)
[2018-08-15] MEDS: DICLOFENAC TOPICAL 100 GM GEL..GM. TP SCH ×2 (09:33→17:35)
[2018-08-15] MEDS: PRUNE JUICE GT SCH (11:00)
[2018-08-15 13:33] VITALS: BP 98/64
[2018-08-15 19:49] VITALS: BP 134/63
[2018-08-15] MEDS: BENAZEPRIL HCL 5 MG TABLET GT SCH (21:06)
[2018-08-15] MEDS: LATANOPROST EYE DROP 0.005% 2.5 ML BOTTLE EACHEYE SCH (21:06)
[2018-08-15] MEDS: LORATADINE 10 MG TABLET GT SCH (21:06)
[2018-08-15] MEDS: PRAVASTATIN SODIUM 20 MG TABLET GT SCH (21:06)
[2018-08-16] MEDS: ALBUTEROL HALF STRENGTH 1.25 MG/3 ML VIAL.NEB NEB SCH ×4 (01:39→19:08)
[2018-08-16] MEDS: CHLORHEXIDINE GLUCONATE 15 ML UDC MM SCH ×2 (05:31→17:01)
[2018-08-16 07:41] VITALS: BP 101/57
[2018-08-16] MEDS: POTASSIUM CHLORIDE GT SCH (08:38)
[2018-08-16] MEDS: RIFAXIMIN 550 MG TABLET GT SCH ×2 (08:38→17:01)
[2018-08-16] MEDS: CHOLECALCIFEROL (VITAMIN D 3) 400 UNIT TABLET GT SCH ×2 (08:38→20:49)
[2018-08-16] MEDS: BIOTIN 5000 MCG GT SCH (08:38)
[2018-08-16] MEDS: AMLODIPINE BESYLATE 5 MG TABLET GT SCH (08:38)
[2018-08-16] MEDS: FINASTERIDE (5 MG) 5 MG TABLET GT SCH (08:38)
[2018-08-16] MEDS: Z GUARD REMEDY 4 OZ OINT TP SCH ×2 (09:00→20:48)
[2018-08-16] MEDS: VITS A AND D/WHITE PET/LANOLIN 5 GM PACKET TP SCH ×4 (09:00→20:48)
[2018-08-16] MEDS: HYDROGEN PEROXIDE 480 ML BOTTLE TP SCH ×2 (09:00→20:48)
[2018-08-16] MEDS: [UNRECOGNIZED DRUG - OTHER] TP SCH ×2 (09:00→20:48)
[2018-08-16] MEDS: DICLOFENAC TOPICAL 100 GM GEL..GM. TP SCH ×2 (09:00→17:01)
[2018-08-16] MEDS: PRUNE JUICE GT SCH (11:00)
--- NOTE | 2018-08-16 12:03 | NUR ---
Pt was being wheeled around in his wheelchair by his . Staff from engineering and nursing staff saw the pt lying with his head raised off the floor in front of the nurses station. Pt's was in front of him holding his hand. Nursing staff helped the pt back up on his wheelchair. He was brought to his room and placed on the bed. Body assessment was done. No apparent injuries were noted. Pt did not hit his head on the floor. No safety alarm was heard when pt slid off the wheelchair. Pt's said the pt was not wearing his EZ release seatbelt alarm because he removed it. BP 131/80 P 74 R 18 T [address] Edwards. No new order. Addendum: 08/16/18 at 1341 by ROSEANNA HARRISON RN Toileting needs of pt was already provided prior to being wheeled by . No change in mental status noted and pt able to follow simple commands. Addendum: 08/16/18 at 1608 by ROSEANNA HARRISON RN According to pt's , pt did not hit his head on the floor.
--- NOTE | 2018-08-16 17:31 | NUR ---
Pt voided before he was wheeled around by his . His last bowel movement was yesterday. Pt did not complain of pain prior to his wheeling him around the unit. Discussed with pt's not to insist on making the pt do things that he does not feel like doing at the moment. Suggested to her that if she really wants him to do the tasks that she wants him to perform, she can ask him to do them at a later time. Received order for PT evaluation.
--- NOTE | 2018-08-16 20:00 | NUR ---
RN NOTES Received pt in bed awake and alert. No changes in mental status noted.
[2018-08-16 20:47] VITALS: BP 120/64
[2018-08-16] MEDS: LATANOPROST EYE DROP 0.005% 2.5 ML BOTTLE EACHEYE SCH (20:48)
[2018-08-16] MEDS: PRAVASTATIN SODIUM 20 MG TABLET GT SCH (20:49)
[2018-08-16] MEDS: LORATADINE 10 MG TABLET GT SCH (20:49)
[2018-08-16] MEDS: BENAZEPRIL HCL 5 MG TABLET GT SCH (20:49)
[2018-08-17] MEDS: ALBUTEROL HALF STRENGTH 1.25 MG/3 ML VIAL.NEB NEB SCH ×4 (01:19→19:39)
[2018-08-17] MEDS: CHLORHEXIDINE GLUCONATE 15 ML UDC MM SCH ×2 (05:49→18:44)
[2018-08-17 06:31] LABS: BASOPHILS % (AUTO) 0.9 % (0.0-2.0); EOSINOPHILS % (AUTO) 3.4 % (0.0-6.0); HEMATOCRIT 43 % (39-51); HEMOGLOBIN 14.5 g/dL (13.5-17.5); LYMPHOCYTES % (AUTO) 24.6 % (20.0-44.0); MEAN CORPUSCULAR HGB CONC 34 g/dl (31.0-36.0); MEAN CORPUSCULAR VOLUME 98 fL (80-96); MONOCYTES # (AUTO) 0.4 /CMM (0.1-1.30); NEUTROPHILS # (AUTO) 2.6 /CMM (1.8-8.9); NEUTROPHILS % (AUTO) 62.1 % (43.0-81.0); PLATELET COUNT (AUTO) 93 /CMM (150-450); RED BLOOD CELL COUNT(AUTO) 4.36 MIL/uL (4.5-6.0); WHITE BLOOD COUNT (AUTO) 4.2 K/uL (4.3-11.0)
[2018-08-17 07:47] VITALS: BP 138/76
[2018-08-17] MEDS: BIOTIN 5000 MCG GT SCH (08:55)
[2018-08-17] MEDS: POTASSIUM CHLORIDE GT SCH (08:55)
[2018-08-17] MEDS: RIFAXIMIN 550 MG TABLET GT SCH ×2 (08:56→16:24)
[2018-08-17] MEDS: FINASTERIDE (5 MG) 5 MG TABLET GT SCH (08:56)
[2018-08-17] MEDS: CHOLECALCIFEROL (VITAMIN D 3) 400 UNIT TABLET GT SCH ×2 (08:56→21:41)
[2018-08-17] MEDS: AMLODIPINE BESYLATE 5 MG TABLET GT SCH (08:56)
[2018-08-17] MEDS: [UNRECOGNIZED DRUG - OTHER] TP SCH ×2 (09:00→21:41)
[2018-08-17] MEDS: DICLOFENAC TOPICAL 100 GM GEL..GM. TP SCH ×2 (09:00→16:25)
[2018-08-17] MEDS: HYDROGEN PEROXIDE 480 ML BOTTLE TP SCH ×2 (09:00→21:41)
[2018-08-17] MEDS: Z GUARD REMEDY 4 OZ OINT TP SCH ×2 (09:00→21:42)
[2018-08-17] MEDS: VITS A AND D/WHITE PET/LANOLIN 5 GM PACKET TP SCH ×4 (09:00→21:42)
[2018-08-17] MEDS: ASPIRIN 81 MG TAB.CHEW GT SCH (09:04)
[2018-08-17] MEDS: PRUNE JUICE GT SCH (11:00)
[2018-08-17] MEDS: HYDROCODONE/APAP 7.5/325MG 1 EACH TABLET GT PRN (15:51)
--- NOTE | 2018-08-17 19:28 | NUR ---
Resident stable. BP 138/78, DE 60, RR 18, Temp 98. Closely monitored, resident attempts to get out of bed unattended. Walked with RNA and BLOWER MECHANIC's assistance. No signs of pain while walking. Belt used while up in wheelchair with audible chair alarm. with him at all time. Bed alarm while in bed to alert staff. With episodes of aggressive towards and staff. [place] PRN given for complaint of generalized pain, effective. Will continue to monitor.
[2018-08-17 19:43] VITALS: BP 127/75
[2018-08-17] MEDS: SUMATRIPTAN SUCCINATE 25 MG TABLET GT PRN (20:30)
[2018-08-17] MEDS: PRAVASTATIN SODIUM 20 MG TABLET GT SCH (21:42)
[2018-08-17] MEDS: LORATADINE 10 MG TABLET GT SCH (21:42)
[2018-08-17] MEDS: BENAZEPRIL HCL 5 MG TABLET GT SCH (21:42)
[2018-08-17] MEDS: LATANOPROST EYE DROP 0.005% 2.5 ML BOTTLE EACHEYE SCH (21:42)
[2018-08-18] MEDS: JEVITY 1.2 CAL 1,000 ML BOTTLE GT PRN ×2 (00:31→20:31)
[2018-08-18] MEDS: HYDROCODONE/APAP 7.5/325MG 1 EACH TABLET GT PRN ×2 (00:31→22:49)
[2018-08-18] MEDS: ALBUTEROL HALF STRENGTH 1.25 MG/3 ML VIAL.NEB NEB SCH ×4 (01:10→19:45)
[2018-08-18] MEDS: CHLORHEXIDINE GLUCONATE 15 ML UDC MM SCH ×2 (05:26→17:48)
[2018-08-18 08:21] VITALS: BP 122/73
[2018-08-18] MEDS: BIOTIN 5000 MCG GT SCH (08:38)
[2018-08-18] MEDS: POTASSIUM CHLORIDE GT SCH (08:38)
[2018-08-18] MEDS: FINASTERIDE (5 MG) 5 MG TABLET GT SCH (08:39)
[2018-08-18] MEDS: Z GUARD REMEDY 4 OZ OINT TP SCH ×2 (08:39→21:47)
[2018-08-18] MEDS: RIFAXIMIN 550 MG TABLET GT SCH ×2 (08:39→16:11)
[2018-08-18] MEDS: CHOLECALCIFEROL (VITAMIN D 3) 400 UNIT TABLET GT SCH ×2 (08:39→21:46)
[2018-08-18] MEDS: HYDROGEN PEROXIDE 480 ML BOTTLE TP SCH ×2 (08:39→21:46)
[2018-08-18] MEDS: DICLOFENAC TOPICAL 100 GM GEL..GM. TP SCH ×2 (08:39→16:11)
[2018-08-18] MEDS: [UNRECOGNIZED DRUG - OTHER] TP SCH ×2 (08:39→21:47)
[2018-08-18] MEDS: VITS A AND D/WHITE PET/LANOLIN 5 GM PACKET TP SCH ×4 (08:39→21:47)
[2018-08-18] MEDS: AMLODIPINE BESYLATE 5 MG TABLET GT SCH ×2 (08:39→22:27)
[2018-08-18] MEDS: PRUNE JUICE GT SCH (11:00)
--- NOTE | 2018-08-18 12:33 | NUR ---
Seen by Dr Edwards. Pt's at bedside and she mentioned pt's sore throat to Dr Edwards. No new order for complaint of sore throat. Dr Edwards ordered to give both Lotensin and Norvasc at night.
--- NOTE | 2018-08-18 16:00 | NUR ---
Non-skid lining was placed on the pt's wheelchair today to keep him from sliding off the seat. Explained its use to the pt's . Pt has no change in mental status, still no injuries noted from the fall. Pt sat up in his wheelchair and ambulated around the unit.
[2018-08-18 19:22] VITALS: BP 108/62
--- NOTE | 2018-08-18 19:55 | NUR ---
RT NOTE: PT FOUND ON ROOM AIR AND PLACED ON COOL AEROSOL. AMBU BAG/BACK UP TRACH @ BEDSIDE. Q6 BREATHING TX GIVEN PER MD ORDERS WITH NO ADVERSE REACTION NOTED. SX DONE PRN. TRACH PATENT AND SECURED. NO RESP DISTRESS NOTED AT THIS TIME. WILL CONTINUE TO MONITOR PT.
[2018-08-18] MEDS: LORATADINE 10 MG TABLET GT SCH (21:47)
[2018-08-18] MEDS: LATANOPROST EYE DROP 0.005% 2.5 ML BOTTLE EACHEYE SCH (21:47)
[2018-08-18] MEDS: PRAVASTATIN SODIUM 20 MG TABLET GT SCH (21:48)
[2018-08-18] MEDS: BENAZEPRIL HCL 5 MG TABLET GT SCH (22:26)
[2018-08-19] MEDS: ALBUTEROL HALF STRENGTH 1.25 MG/3 ML VIAL.NEB NEB SCH ×4 (01:43→19:34)
[2018-08-19] MEDS: CHLORHEXIDINE GLUCONATE 15 ML UDC MM SCH ×2 (05:46→17:34)
[2018-08-19] MEDS: JEVITY 1.2 CAL 1,000 ML BOTTLE GT PRN (07:01)
[2018-08-19 08:02] VITALS: BP 124/59
[2018-08-19] MEDS: ASPIRIN 81 MG TAB.CHEW GT SCH (08:30)
[2018-08-19] MEDS: BIOTIN 5000 MCG GT SCH (09:00)
[2018-08-19] MEDS: HYDROGEN PEROXIDE 480 ML BOTTLE TP SCH ×2 (09:00→21:11)
[2018-08-19] MEDS: FINASTERIDE (5 MG) 5 MG TABLET GT SCH (09:00)
[2018-08-19] MEDS: POTASSIUM CHLORIDE GT SCH (09:00)
[2018-08-19] MEDS: VITS A AND D/WHITE PET/LANOLIN 5 GM PACKET TP SCH ×4 (09:00→21:11)
[2018-08-19] MEDS: CHOLECALCIFEROL (VITAMIN D 3) 400 UNIT TABLET GT SCH ×2 (09:00→21:10)
[2018-08-19] MEDS: [UNRECOGNIZED DRUG - OTHER] TP SCH ×2 (09:00→21:11)
[2018-08-19] MEDS: RIFAXIMIN 550 MG TABLET GT SCH ×2 (09:00→17:34)
[2018-08-19] MEDS: Z GUARD REMEDY 4 OZ OINT TP SCH ×2 (09:00→21:11)
[2018-08-19] MEDS: DICLOFENAC TOPICAL 100 GM GEL..GM. TP SCH ×2 (09:00→17:34)
[2018-08-19] MEDS: MAGNESIUM HYDROXIDE 30 ML UDC GT PRN (09:00)
[2018-08-19] MEDS: PRUNE JUICE GT SCH (11:00)
--- NOTE | 2018-08-19 17:40 | NUR ---
INTERDISCIPLINARY PLAN OF CARE CONFERENCE was held today. Resident's attended today's IDT meeting. Dr. Mejia and the interdisciplinary team discussed the current plan of care in detail. Current orders as well as treatments and medications were reviewed. Per the charge nurses report to the manager social services, the resident's asked for another PT evaluation to be done (as she continues to state that resident continues to tip-toe when he walks. However, was told that this is his baseline and PT services are not appropriate for the resident.
[2018-08-19] MEDS: BISACODYL SUPP (10 MG) 10 MG/SUPP.RECT SUPP.RECT RC PRN (18:38)
--- NOTE | 2018-08-19 18:40 | NUR ---
electrical linesworker spoke with the resident's regarding resident having a share of cost in 2017 for one month. SW explained to her again what share of cost is and she noted that she forwarded the hospital bill to the [facility] geriatric social worker and he has nothing to do with it. SW informed her to notify the [facility] worker about the share of cost that was charged, as she had only provided him with a bill. She noted she will follow up and will most likely have one of her daughter's call the SW on Wednesday to explain it better.
--- NOTE | 2018-08-19 21:08 | NUR ---
RT NOTE: PATIENT WAS RECEIVED ON COOL AEROSOL. AMBU BAG/BACK UP TRACH @ BEDSIDE. Q6 BREATHING TX GIVEN PER MD ORDERS WITH NO ADVERSE REACTION NOTED. SUCTION DONE PRN. TRACH PATENT AND SECURED. NO RESPIRATORY DISTRESS NOTED AT THIS TIME. WILL CONTINUE TO MONITOR PATIENT Addendum: 08/19/18 at 2109 by LUANN LAFLEUR RT Amended: Links added.
[2018-08-19] MEDS: BENAZEPRIL HCL 5 MG TABLET GT SCH (21:11)
[2018-08-19] MEDS: LORATADINE 10 MG TABLET GT SCH (21:11)
[2018-08-19] MEDS: LATANOPROST EYE DROP 0.005% 2.5 ML BOTTLE EACHEYE SCH (21:11)
[2018-08-19] MEDS: PRAVASTATIN SODIUM 20 MG TABLET GT SCH (21:11)
[2018-08-19] MEDS: AMLODIPINE BESYLATE 5 MG TABLET GT SCH (21:11)
[2018-08-19 21:22] VITALS: BP 120/75
[2018-08-19] MEDS: ACETAMINOPHEN 650 MG/20 ML UDC- SA PATIENTS-PAIN ONLY GT PRN (22:42)
[2018-08-20] MEDS: ALBUTEROL HALF STRENGTH 1.25 MG/3 ML VIAL.NEB NEB SCH ×4 (01:37→19:20)
[2018-08-20] MEDS: JEVITY 1.2 CAL 1,000 ML BOTTLE GT PRN ×2 (02:00→18:09)
[2018-08-20] MEDS: CHLORHEXIDINE GLUCONATE 15 ML UDC MM SCH ×2 (05:46→17:45)
[2018-08-20 07:51] VITALS: BP 115/74
[2018-08-20] MEDS: BIOTIN 5000 MCG GT SCH (09:04)
[2018-08-20] MEDS: Z GUARD REMEDY 4 OZ OINT TP SCH ×2 (09:04→21:24)
[2018-08-20] MEDS: RIFAXIMIN 550 MG TABLET GT SCH ×2 (09:04→17:45)
[2018-08-20] MEDS: CHOLECALCIFEROL (VITAMIN D 3) 400 UNIT TABLET GT SCH ×2 (09:04→21:23)
[2018-08-20] MEDS: HYDROGEN PEROXIDE 480 ML BOTTLE TP SCH ×2 (09:04→21:23)
[2018-08-20] MEDS: POTASSIUM CHLORIDE GT SCH (09:04)
[2018-08-20] MEDS: [UNRECOGNIZED DRUG - OTHER] TP SCH ×2 (09:04→21:24)
[2018-08-20] MEDS: FINASTERIDE (5 MG) 5 MG TABLET GT SCH (09:04)
[2018-08-20] MEDS: VITS A AND D/WHITE PET/LANOLIN 5 GM PACKET TP SCH ×4 (09:05→21:24)
[2018-08-20] MEDS: DICLOFENAC TOPICAL 100 GM GEL..GM. TP SCH ×2 (09:05→17:45)
[2018-08-20] MEDS: PRUNE JUICE GT SCH (11:00)
--- NOTE | 2018-08-20 11:00 | NUR ---
Patient out of bed , up in wheelchair accompanied by his . Prune juice not given, patient was given dulcolax supp for constipation dress fitter. Monitor patients' BM results after dulcolax supp.
--- NOTE | 2018-08-20 12:37 | NUR ---
Patient transferred back to bed, patient had BM good results. Provided good pericare. Kept dry and clean at all times.
[2018-08-20 20:13] VITALS: BP 121/73
[2018-08-20] MEDS: LATANOPROST EYE DROP 0.005% 2.5 ML BOTTLE EACHEYE SCH (21:24)
[2018-08-20] MEDS: LORATADINE 10 MG TABLET GT SCH (21:25)
[2018-08-20] MEDS: PRAVASTATIN SODIUM 20 MG TABLET GT SCH (21:27)
[2018-08-20] MEDS: BENAZEPRIL HCL 5 MG TABLET GT SCH (21:27)
[2018-08-20] MEDS: AMLODIPINE BESYLATE 5 MG TABLET GT SCH (21:27)
[2018-08-21] MEDS: ALBUTEROL HALF STRENGTH 1.25 MG/3 ML VIAL.NEB NEB SCH ×4 (01:30→19:39)
[2018-08-21] MEDS: CHLORHEXIDINE GLUCONATE 15 ML UDC MM SCH ×2 (05:44→17:20)
[2018-08-21] MEDS: JEVITY 1.2 CAL 1,000 ML BOTTLE GT PRN (05:45)
--- NOTE | 2018-08-21 07:07 | NUR ---
RT PATIENT VERY COMBATIVE THIS MORNING AND WOULD NOT ALLOW ME TO PLACE A TX ON. HE RIPPED OFF HIS TRACH MASK. PATIENT IS STABLE WITH NO SOB NOTED.
[2018-08-21 07:30] VITALS: BP 124/74
[2018-08-21] MEDS: ASPIRIN 81 MG TAB.CHEW GT SCH (08:53)
[2018-08-21] MEDS: POTASSIUM CHLORIDE GT SCH (08:54)
[2018-08-21] MEDS: BIOTIN 5000 MCG GT SCH (08:54)
[2018-08-21] MEDS: FINASTERIDE (5 MG) 5 MG TABLET GT SCH (08:55)
[2018-08-21] MEDS: RIFAXIMIN 550 MG TABLET GT SCH ×2 (08:57→16:35)
[2018-08-21] MEDS: [UNRECOGNIZED DRUG - OTHER] TP SCH ×2 (08:58→20:37)
[2018-08-21] MEDS: HYDROGEN PEROXIDE 480 ML BOTTLE TP SCH ×2 (08:58→20:37)
[2018-08-21] MEDS: Z GUARD REMEDY 4 OZ OINT TP SCH ×2 (08:58→20:37)
[2018-08-21] MEDS: VITS A AND D/WHITE PET/LANOLIN 5 GM PACKET TP SCH ×4 (08:59→20:37)
[2018-08-21] MEDS: DICLOFENAC TOPICAL 100 GM GEL..GM. TP SCH ×2 (09:00→16:35)
[2018-08-21] MEDS: CHOLECALCIFEROL (VITAMIN D 3) 400 UNIT TABLET GT SCH ×2 (09:01→20:40)
[2018-08-21] MEDS: HYDROCODONE/APAP 7.5/325MG 1 EACH TABLET GT PRN (10:44)
[2018-08-21] MEDS: PRUNE JUICE GT SCH (11:04)
[2018-08-21] MEDS: SUMATRIPTAN SUCCINATE 25 MG TABLET GT PRN (16:41)
[2018-08-21 19:55] VITALS: BP 141/75
[2018-08-21 20:00] VITALS: BP 141/75
[2018-08-21] MEDS: LORATADINE 10 MG TABLET GT SCH (21:00)
[2018-08-21] MEDS: AMLODIPINE BESYLATE 5 MG TABLET GT SCH (21:00)
[2018-08-21] MEDS: BENAZEPRIL HCL 5 MG TABLET GT SCH (21:00)
[2018-08-21] MEDS: PRAVASTATIN SODIUM 20 MG TABLET GT SCH (21:00)
[2018-08-21] MEDS: LATANOPROST EYE DROP 0.005% 2.5 ML BOTTLE EACHEYE SCH (21:00)
[2018-08-22] MEDS: ALBUTEROL HALF STRENGTH 1.25 MG/3 ML VIAL.NEB NEB SCH ×4 (01:54→19:15)
[2018-08-22] MEDS: JEVITY 1.2 CAL 1,000 ML BOTTLE GT PRN (02:16)
[2018-08-22] MEDS: CHLORHEXIDINE GLUCONATE 15 ML UDC MM SCH ×2 (05:08→18:45)
[2018-08-22 08:01] VITALS: BP 138/80
[2018-08-22] MEDS: POTASSIUM CHLORIDE GT SCH (09:06)
[2018-08-22] MEDS: BIOTIN 5000 MCG GT SCH (09:07)
[2018-08-22] MEDS: FINASTERIDE (5 MG) 5 MG TABLET GT SCH (09:07)
[2018-08-22] MEDS: RIFAXIMIN 550 MG TABLET GT SCH ×2 (09:07→16:56)
[2018-08-22] MEDS: CHOLECALCIFEROL (VITAMIN D 3) 400 UNIT TABLET GT SCH ×2 (09:10→21:20)
[2018-08-22] MEDS: HYDROGEN PEROXIDE 480 ML BOTTLE TP SCH ×2 (09:33→21:20)
[2018-08-22] MEDS: [UNRECOGNIZED DRUG - OTHER] TP SCH ×2 (09:33→21:20)
[2018-08-22] MEDS: Z GUARD REMEDY 4 OZ OINT TP SCH ×2 (09:34→21:20)
[2018-08-22] MEDS: VITS A AND D/WHITE PET/LANOLIN 5 GM PACKET TP SCH ×4 (09:34→21:20)
[2018-08-22] MEDS: DICLOFENAC TOPICAL 100 GM GEL..GM. TP SCH ×2 (09:34→16:56)
[2018-08-22] MEDS: PRUNE JUICE GT SCH (11:00)
[2018-08-22] MEDS: HYDROCODONE/APAP 7.5/325MG 1 EACH TABLET GT PRN (17:32)
[2018-08-22] MEDS: LATANOPROST EYE DROP 0.005% 2.5 ML BOTTLE EACHEYE SCH (21:20)
[2018-08-22] MEDS: LORATADINE 10 MG TABLET GT SCH (21:20)
[2018-08-22] MEDS: BENAZEPRIL HCL 5 MG TABLET GT SCH (21:21)
[2018-08-22] MEDS: PRAVASTATIN SODIUM 20 MG TABLET GT SCH (21:21)
[2018-08-22] MEDS: AMLODIPINE BESYLATE 5 MG TABLET GT SCH (21:21)
[2018-08-23] MEDS: JEVITY 1.2 CAL 1,000 ML BOTTLE GT PRN (00:41)
[2018-08-23] MEDS: ALBUTEROL HALF STRENGTH 1.25 MG/3 ML VIAL.NEB NEB SCH ×4 (01:39→19:30)
[2018-08-23] MEDS: CHLORHEXIDINE GLUCONATE 15 ML UDC MM SCH ×2 (05:43→17:30)
[2018-08-23 07:51] VITALS: BP 115/56
[2018-08-23] MEDS: FINASTERIDE (5 MG) 5 MG TABLET GT SCH (08:45)
[2018-08-23] MEDS: BIOTIN 5000 MCG GT SCH (08:45)
[2018-08-23] MEDS: CHOLECALCIFEROL (VITAMIN D 3) 400 UNIT TABLET GT SCH ×2 (08:45→21:10)
[2018-08-23] MEDS: RIFAXIMIN 550 MG TABLET GT SCH ×2 (08:45→17:30)
[2018-08-23] MEDS: ASPIRIN 81 MG TAB.CHEW GT SCH (08:45)
[2018-08-23] MEDS: POTASSIUM CHLORIDE GT SCH (08:45)
[2018-08-23] MEDS: DICLOFENAC TOPICAL 100 GM GEL..GM. TP SCH ×2 (09:00→17:30)
[2018-08-23] MEDS: HYDROGEN PEROXIDE 480 ML BOTTLE TP SCH ×2 (09:00→21:11)
[2018-08-23] MEDS: Z GUARD REMEDY 4 OZ OINT TP SCH ×2 (09:00→21:11)
[2018-08-23] MEDS: [UNRECOGNIZED DRUG - OTHER] TP SCH ×2 (09:00→21:11)
[2018-08-23] MEDS: VITS A AND D/WHITE PET/LANOLIN 5 GM PACKET TP SCH ×4 (09:00→21:11)
[2018-08-23] MEDS: PRUNE JUICE GT SCH (11:56)
--- NOTE | 2018-08-23 18:49 | NUR ---
Sw assisted the resident's in sending a letter to the [facility] worker (Dwayne Bianchi- [phone]) indicating concern that the resident was charged a SOC for October 2016. Resident's noted that she will follow up with the transition social worker tomorrow to see if the fax was received. SKIP gave the resident's a copy of the fax confirmation page. A copy was also placed in the resident's chart. Charge nurse was informed.
--- NOTE | 2018-08-23 18:52 | NUR ---
SW informed the resident's once again that a new wheelchair will not be covered as the resident is currently under Penitentiary Enrollment. SKIP obtained a letter from [employer] ([phone]) which is the supplier for the first wheelchair who ran the resident's current eligibility. Resident is still under SNF level of care and therefore the supplier will not get paid from Medicare to issue a new wheelchair. There is the additional reason that the first wheelchair was never paid out by Medicare because of the chcf enrollment and the resident's was informed of this. Resident's was provided with a copy of the notice provided by [employer]. Resident's signed Penitentiary Facility Advance Beneficiary notice of Non-coverage (SNFABN) indicating that she does not wish to pursue the wheelchair right now and will go to the Medicare office to verify the information. Resident's was told that if she wants to pay for a new wheelchair, the estimated cost is $1350.00. She wishes to decline at this time. Charge nurse was informed. Copies were placed into the resident's chart and the charge nurse was informed.
[2018-08-23] MEDS: AMLODIPINE BESYLATE 5 MG TABLET GT SCH (21:11)
[2018-08-23] MEDS: PRAVASTATIN SODIUM 20 MG TABLET GT SCH (21:11)
[2018-08-23] MEDS: LORATADINE 10 MG TABLET GT SCH (21:11)
[2018-08-23] MEDS: LATANOPROST EYE DROP 0.005% 2.5 ML BOTTLE EACHEYE SCH (21:11)
[2018-08-23] MEDS: BENAZEPRIL HCL 5 MG TABLET GT SCH (21:11)
[2018-08-23] MEDS: MAGNESIUM HYDROXIDE 30 ML UDC GT PRN (22:30)
[2018-08-24 01:16] VITALS: BP 125/77
[2018-08-24] MEDS: ALBUTEROL HALF STRENGTH 1.25 MG/3 ML VIAL.NEB NEB SCH ×4 (01:39→19:36)
[2018-08-24] MEDS: CHLORHEXIDINE GLUCONATE 15 ML UDC MM SCH ×2 (05:44→17:23)
[2018-08-24] MEDS: BISACODYL SUPP (10 MG) 10 MG/SUPP.RECT SUPP.RECT RC PRN (06:49)
[2018-08-24] MEDS: JEVITY 1.2 CAL 1,000 ML BOTTLE GT PRN ×2 (07:16→17:10)
[2018-08-24 07:37] VITALS: BP 127/72
[2018-08-24] MEDS: RIFAXIMIN 550 MG TABLET GT SCH ×2 (08:45→17:23)
[2018-08-24] MEDS: FINASTERIDE (5 MG) 5 MG TABLET GT SCH (08:45)
[2018-08-24] MEDS: BIOTIN 5000 MCG GT SCH (08:45)
[2018-08-24] MEDS: CHOLECALCIFEROL (VITAMIN D 3) 400 UNIT TABLET GT SCH ×2 (08:45→21:41)
[2018-08-24] MEDS: [UNRECOGNIZED DRUG - OTHER] TP SCH ×2 (08:45→21:41)
[2018-08-24] MEDS: DICLOFENAC TOPICAL 100 GM GEL..GM. TP SCH ×2 (08:45→17:23)
[2018-08-24] MEDS: POTASSIUM CHLORIDE GT SCH (08:45)
[2018-08-24] MEDS: VITS A AND D/WHITE PET/LANOLIN 5 GM PACKET TP SCH ×4 (08:45→21:41)
[2018-08-24] MEDS: Z GUARD REMEDY 4 OZ OINT TP SCH ×2 (08:45→21:41)
[2018-08-24] MEDS: HYDROGEN PEROXIDE 480 ML BOTTLE TP SCH ×2 (08:45→21:41)
[2018-08-24] MEDS: PRUNE JUICE GT SCH (11:54)
[2018-08-24] MEDS: HYDROCODONE/APAP 7.5/325MG 1 EACH TABLET GT PRN (17:00)
--- NOTE | 2018-08-24 19:46 | NUR ---
RT NOTE: PT FOUND ON ROOM AIR AND PLACED ON COOL AEROSOL. AMBU BAG/BACK UP TRACH @ BEDSIDE. Q6 BREATHING TX GIVEN PER MD ORDERS WITH NO ADVERSE REACTION NOTED. SX DONE PRN. TRACH PATENT AND SECURED. NO RESP DISTRESS NOTED AT THIS TIME. WILL CONTINUE TO MONITOR PT. Addendum: 08/24/18 at 2229 by LINNEA TOVAR RT Amended: Links added.
[2018-08-24 21:07] VITALS: BP 138/84
[2018-08-24] MEDS: BENAZEPRIL HCL 5 MG TABLET GT SCH (21:41)
[2018-08-24] MEDS: LATANOPROST EYE DROP 0.005% 2.5 ML BOTTLE EACHEYE SCH (21:41)
[2018-08-24] MEDS: LORATADINE 10 MG TABLET GT SCH (21:41)
[2018-08-24] MEDS: PRAVASTATIN SODIUM 20 MG TABLET GT SCH (21:42)
[2018-08-24] MEDS: AMLODIPINE BESYLATE 5 MG TABLET GT SCH (21:42)
[2018-08-25] MEDS: ALBUTEROL HALF STRENGTH 1.25 MG/3 ML VIAL.NEB NEB SCH ×4 (01:07→19:46)
[2018-08-25] MEDS: CHLORHEXIDINE GLUCONATE 15 ML UDC MM SCH ×2 (05:27→17:22)
[2018-08-25] MEDS: JEVITY 1.2 CAL 1,000 ML BOTTLE GT PRN (05:41)
[2018-08-25] MEDS: BISACODYL SUPP (10 MG) 10 MG/SUPP.RECT SUPP.RECT RC PRN (06:01)
[2018-08-25 07:54] VITALS: BP 134/82
[2018-08-25] MEDS: ASPIRIN 81 MG TAB.CHEW GT SCH (08:15)
[2018-08-25] MEDS: FINASTERIDE (5 MG) 5 MG TABLET GT SCH (08:15)
[2018-08-25] MEDS: Z GUARD REMEDY 4 OZ OINT TP SCH ×2 (08:15→21:19)
[2018-08-25] MEDS: POTASSIUM CHLORIDE GT SCH (08:15)
[2018-08-25] MEDS: DICLOFENAC TOPICAL 100 GM GEL..GM. TP SCH ×2 (08:15→17:22)
[2018-08-25] MEDS: HYDROGEN PEROXIDE 480 ML BOTTLE TP SCH ×2 (08:15→21:19)
[2018-08-25] MEDS: VITS A AND D/WHITE PET/LANOLIN 5 GM PACKET TP SCH ×4 (08:15→21:19)
[2018-08-25] MEDS: [UNRECOGNIZED DRUG - OTHER] TP SCH ×2 (08:15→21:19)
[2018-08-25] MEDS: RIFAXIMIN 550 MG TABLET GT SCH ×2 (08:15→17:22)
[2018-08-25] MEDS: CHOLECALCIFEROL (VITAMIN D 3) 400 UNIT TABLET GT SCH ×2 (08:15→21:19)
[2018-08-25] MEDS: BIOTIN 5000 MCG GT SCH (08:15)
--- NOTE | 2018-08-25 10:27 | NUR ---
SW talked to patient caregiver about the share of cost patient had and redirected caregiver to call Medical and ask the reason patient had a share of cost.
[2018-08-25] MEDS: PRUNE JUICE GT SCH (11:41)
[2018-08-25 20:57] VITALS: BP 137/84
[2018-08-25] MEDS: LORATADINE 10 MG TABLET GT SCH (21:19)
[2018-08-25] MEDS: LATANOPROST EYE DROP 0.005% 2.5 ML BOTTLE EACHEYE SCH (21:19)
[2018-08-25] MEDS: BENAZEPRIL HCL 5 MG TABLET GT SCH (21:20)
[2018-08-25] MEDS: AMLODIPINE BESYLATE 5 MG TABLET GT SCH (21:20)
[2018-08-25] MEDS: PRAVASTATIN SODIUM 20 MG TABLET GT SCH (21:20)
[2018-08-26] MEDS: ALBUTEROL HALF STRENGTH 1.25 MG/3 ML VIAL.NEB NEB SCH ×4 (01:20→19:30)
[2018-08-26] MEDS: JEVITY 1.2 CAL 1,000 ML BOTTLE GT PRN ×2 (01:30→18:16)
[2018-08-26] MEDS: CHLORHEXIDINE GLUCONATE 15 ML UDC MM SCH ×2 (06:19→17:27)
[2018-08-26 08:00] VITALS: BP 113/66
[2018-08-26] MEDS: Z GUARD REMEDY 4 OZ OINT TP SCH ×2 (08:32→21:02)
[2018-08-26] MEDS: VITS A AND D/WHITE PET/LANOLIN 5 GM PACKET TP SCH ×4 (08:32→21:02)
[2018-08-26] MEDS: HYDROGEN PEROXIDE 480 ML BOTTLE TP SCH ×2 (08:32→21:01)
[2018-08-26] MEDS: RIFAXIMIN 550 MG TABLET GT SCH ×2 (08:32→16:45)
[2018-08-26] MEDS: BIOTIN 5000 MCG GT SCH (08:32)
[2018-08-26] MEDS: FINASTERIDE (5 MG) 5 MG TABLET GT SCH (08:32)
[2018-08-26] MEDS: CHOLECALCIFEROL (VITAMIN D 3) 400 UNIT TABLET GT SCH ×2 (08:32→21:01)
[2018-08-26] MEDS: DICLOFENAC TOPICAL 100 GM GEL..GM. TP SCH ×2 (08:32→16:45)
[2018-08-26] MEDS: [UNRECOGNIZED DRUG - OTHER] TP SCH ×2 (08:32→21:02)
[2018-08-26] MEDS: POTASSIUM CHLORIDE GT SCH (08:32)
--- NOTE | 2018-08-26 08:52 | NUR ---
Seen and examined by Dr. Jerry rain.
[2018-08-26] MEDS: PRUNE JUICE GT SCH (11:26)
[2018-08-26] MEDS: HYDROCODONE/APAP 7.5/325MG 1 EACH TABLET GT PRN (13:27)
[2018-08-26 19:52] VITALS: BP 142/69
[2018-08-26] MEDS: LORATADINE 10 MG TABLET GT SCH (21:02)
[2018-08-26] MEDS: PRAVASTATIN SODIUM 20 MG TABLET GT SCH (21:02)
[2018-08-26] MEDS: LATANOPROST EYE DROP 0.005% 2.5 ML BOTTLE EACHEYE SCH (21:02)
[2018-08-26] MEDS: BENAZEPRIL HCL 5 MG TABLET GT SCH (21:02)
[2018-08-26] MEDS: AMLODIPINE BESYLATE 5 MG TABLET GT SCH (21:02)
[2018-08-27] MEDS: ALBUTEROL HALF STRENGTH 1.25 MG/3 ML VIAL.NEB NEB SCH ×4 (01:17→19:25)
[2018-08-27] MEDS: CHLORHEXIDINE GLUCONATE 15 ML UDC MM SCH ×2 (05:27→18:48)
[2018-08-27] MEDS: JEVITY 1.2 CAL 1,000 ML BOTTLE GT PRN (05:39)
[2018-08-27 07:28] VITALS: BP 120/64
[2018-08-27] MEDS: DICLOFENAC TOPICAL 100 GM GEL..GM. TP SCH ×2 (08:33→16:41)
[2018-08-27] MEDS: Z GUARD REMEDY 4 OZ OINT TP SCH ×2 (08:33→21:37)
[2018-08-27] MEDS: HYDROGEN PEROXIDE 480 ML BOTTLE TP SCH ×2 (08:33→21:37)
[2018-08-27] MEDS: RIFAXIMIN 550 MG TABLET GT SCH ×2 (08:33→16:41)
[2018-08-27] MEDS: [UNRECOGNIZED DRUG - OTHER] TP SCH (08:33)
[2018-08-27] MEDS: POTASSIUM CHLORIDE GT SCH (08:33)
[2018-08-27] MEDS: VITS A AND D/WHITE PET/LANOLIN 5 GM PACKET TP SCH ×4 (08:33→21:37)
[2018-08-27] MEDS: FINASTERIDE (5 MG) 5 MG TABLET GT SCH (08:33)
[2018-08-27] MEDS: ASPIRIN 81 MG TAB.CHEW GT SCH (08:33)
[2018-08-27] MEDS: CHOLECALCIFEROL (VITAMIN D 3) 400 UNIT TABLET GT SCH ×2 (08:33→21:37)
[2018-08-27] MEDS: BIOTIN 5000 MCG GT SCH (08:33)
[2018-08-27] MEDS: PRUNE JUICE GT SCH (11:00)
--- NOTE | 2018-08-27 11:03 | NUR ---
PT RCDUKE'D ON COOL AEROSOL WITH CHARTED SETTINGS. HHN TX GIVEN WITH NO ADVERSE REACTION NOTED. SX DONE. PT TRACH PATENT AND SECURE. NO RESPIRATORY DISTRESS NOTED AT THIS TIME. AMBU BAG AT BEDSIDE. WILL CONTINUE TO MONITOR. Addendum: 08/27/18 at 1104 by LISETH MOCK RT Amended: Links added.
[2018-08-27 19:44] VITALS: BP 137/79
[2018-08-27] MEDS: AMLODIPINE BESYLATE 5 MG TABLET GT SCH (21:37)
[2018-08-27] MEDS: BENAZEPRIL HCL 5 MG TABLET GT SCH (21:37)
[2018-08-27] MEDS: LATANOPROST EYE DROP 0.005% 2.5 ML BOTTLE EACHEYE SCH (21:37)
[2018-08-27] MEDS: LORATADINE 10 MG TABLET GT SCH (21:37)
[2018-08-27] MEDS: PRAVASTATIN SODIUM 20 MG TABLET GT SCH (21:37)
--- NOTE | 2018-08-28 00:29 | NUR ---
RT NOTE PATIENT FOUND ON ROOM AIR AND PLACED PATIENT ON 28%COOL AEROSOL, Q6 BREATHING TREATMENT WAS GIVEN, NO ADVERSE REACTION NOTED. PRN SUCTION WAS DONE . TRACH TUBE PATENT AND SECURED. NO RESPIRATORY DISTRESS NOTED AT THIS TIME.WILL CONTINUE TO MONITOR PATIENT.
[2018-08-28] MEDS: ALBUTEROL HALF STRENGTH 1.25 MG/3 ML VIAL.NEB NEB SCH ×4 (01:31→19:35)
[2018-08-28] MEDS: JEVITY 1.2 CAL 1,000 ML BOTTLE GT PRN (02:27)
[2018-08-28] MEDS: CHLORHEXIDINE GLUCONATE 15 ML UDC MM SCH ×2 (05:38→17:13)
[2018-08-28 07:37] VITALS: BP 119/72
[2018-08-28] MEDS: CHOLECALCIFEROL (VITAMIN D 3) 400 UNIT TABLET GT SCH ×2 (08:17→21:05)
[2018-08-28] MEDS: FINASTERIDE (5 MG) 5 MG TABLET GT SCH (08:17)
[2018-08-28] MEDS: POTASSIUM CHLORIDE GT SCH (08:17)
[2018-08-28] MEDS: BIOTIN 5000 MCG GT SCH (08:17)
[2018-08-28] MEDS: RIFAXIMIN 550 MG TABLET GT SCH ×2 (08:17→16:41)
[2018-08-28] MEDS: Z GUARD REMEDY 4 OZ OINT TP SCH ×2 (09:00→21:06)
[2018-08-28] MEDS: DICLOFENAC TOPICAL 100 GM GEL..GM. TP SCH ×2 (09:00→16:41)
[2018-08-28] MEDS: VITS A AND D/WHITE PET/LANOLIN 5 GM PACKET TP SCH ×4 (09:00→21:06)
[2018-08-28] MEDS: HYDROGEN PEROXIDE 480 ML BOTTLE TP SCH ×2 (09:00→21:05)
[2018-08-28] MEDS: PRUNE JUICE GT SCH (11:08)
[2018-08-28] MEDS: [UNRECOGNIZED DRUG - OTHER] TP SCH ×2 (12:13→17:13)
--- NOTE | 2018-08-28 14:00 | NUR ---
Seen and examined by Dr. Edwards, NNO given.
--- NOTE | 2018-08-28 19:45 | NUR ---
RT NOTE: PT FOUND ON ROOM AIR AND PLACED ON COOL AEROSOL. AMBU BAG/BACK UP TRACH @ BEDSIDE. Q6 BREATHING TX GIVEN PER MD ORDERS WITH NO ADVERSE REACTION NOTED. SX DONE PRN. TRACH PATENT AND SECURED. NO RESP DISTRESS NOTED AT THIS TIME. WILL CONTINUE TO MONITOR PT. Addendum: 08/29/18 at 0245 by LINNEA TOVAR RT Amended: Links added.
[2018-08-28 20:00] VITALS: BP_SYST 114; BP_SYST 131; BP_DIAS 74; BP_DIAS 75
[2018-08-28 20:19] VITALS: BP 131/74
[2018-08-28] MEDS: LATANOPROST EYE DROP 0.005% 2.5 ML BOTTLE EACHEYE SCH (21:05)
[2018-08-28] MEDS: LORATADINE 10 MG TABLET GT SCH (21:05)
[2018-08-28] MEDS: PRAVASTATIN SODIUM 20 MG TABLET GT SCH (21:06)
[2018-08-28] MEDS: AMLODIPINE BESYLATE 5 MG TABLET GT SCH (21:06)
[2018-08-28] MEDS: BENAZEPRIL HCL 5 MG TABLET GT SCH (22:00)
[2018-08-29] MEDS: ALBUTEROL HALF STRENGTH 1.25 MG/3 ML VIAL.NEB NEB SCH ×4 (01:32→20:16)
[2018-08-29] MEDS: HYDROCODONE/APAP 7.5/325MG 1 EACH TABLET GT PRN ×2 (02:55→22:10)
[2018-08-29] MEDS: JEVITY 1.2 CAL 1,000 ML BOTTLE GT PRN ×2 (05:42→22:10)
[2018-08-29] MEDS: CHLORHEXIDINE GLUCONATE 15 ML UDC MM SCH ×2 (05:42→17:12)
[2018-08-29 07:40] VITALS: BP 127/75
[2018-08-29] MEDS: FINASTERIDE (5 MG) 5 MG TABLET GT SCH (08:15)
[2018-08-29] MEDS: CHOLECALCIFEROL (VITAMIN D 3) 400 UNIT TABLET GT SCH ×2 (08:15→21:31)
[2018-08-29] MEDS: ASPIRIN 81 MG TAB.CHEW GT SCH (08:15)
[2018-08-29] MEDS: BIOTIN 5000 MCG GT SCH (08:15)
[2018-08-29] MEDS: POTASSIUM CHLORIDE GT SCH (08:15)
[2018-08-29] MEDS: RIFAXIMIN 550 MG TABLET GT SCH ×2 (08:15→16:37)
[2018-08-29] MEDS: Z GUARD REMEDY 4 OZ OINT TP SCH ×2 (09:01→21:31)
[2018-08-29] MEDS: VITS A AND D/WHITE PET/LANOLIN 5 GM PACKET TP SCH ×4 (09:01→21:31)
[2018-08-29] MEDS: DICLOFENAC TOPICAL 100 GM GEL..GM. TP SCH ×2 (09:01→16:37)
[2018-08-29] MEDS: HYDROGEN PEROXIDE 480 ML BOTTLE TP SCH ×2 (09:01→21:31)
[2018-08-29] MEDS: PRUNE JUICE GT SCH (11:00)
[2018-08-29] MEDS: [UNRECOGNIZED DRUG - OTHER] TP SCH ×2 (12:13→17:12)
[2018-08-29 20:34] VITALS: BP 132/87
[2018-08-29] MEDS: AMLODIPINE BESYLATE 5 MG TABLET GT SCH (21:31)
[2018-08-29] MEDS: LORATADINE 10 MG TABLET GT SCH (21:31)
[2018-08-29] MEDS: LATANOPROST EYE DROP 0.005% 2.5 ML BOTTLE EACHEYE SCH (21:31)
[2018-08-29] MEDS: BENAZEPRIL HCL 5 MG TABLET GT SCH (21:31)
[2018-08-29] MEDS: PRAVASTATIN SODIUM 20 MG TABLET GT SCH (21:31)
[2018-08-30] MEDS: ALBUTEROL HALF STRENGTH 1.25 MG/3 ML VIAL.NEB NEB SCH ×4 (02:02→19:13)
[2018-08-30] MEDS: CHLORHEXIDINE GLUCONATE 15 ML UDC MM SCH ×2 (05:27→17:22)
[2018-08-30 07:31] VITALS: BP 137/85
[2018-08-30] MEDS: HYDROGEN PEROXIDE 480 ML BOTTLE TP SCH ×2 (09:11→21:34)
[2018-08-30] MEDS: CHOLECALCIFEROL (VITAMIN D 3) 400 UNIT TABLET GT SCH ×2 (09:11→21:34)
[2018-08-30] MEDS: BIOTIN 5000 MCG GT SCH (09:11)
[2018-08-30] MEDS: FINASTERIDE (5 MG) 5 MG TABLET GT SCH (09:11)
[2018-08-30] MEDS: RIFAXIMIN 550 MG TABLET GT SCH ×2 (09:11→17:22)
[2018-08-30] MEDS: POTASSIUM CHLORIDE GT SCH (09:11)
[2018-08-30] MEDS: Z GUARD REMEDY 4 OZ OINT TP SCH ×2 (09:11→21:34)
[2018-08-30] MEDS: VITS A AND D/WHITE PET/LANOLIN 5 GM PACKET TP SCH ×4 (09:12→21:35)
[2018-08-30] MEDS: DICLOFENAC TOPICAL 100 GM GEL..GM. TP SCH ×2 (09:12→17:22)
[2018-08-30] MEDS: PRUNE JUICE GT SCH (11:58)
[2018-08-30] MEDS: [UNRECOGNIZED DRUG - OTHER] TP SCH ×2 (12:01→17:22)
[2018-08-30] MEDS: HYDROCODONE/APAP 7.5/325MG 1 EACH TABLET GT PRN (14:10)
[2018-08-30] MEDS: JEVITY 1.2 CAL 1,000 ML BOTTLE GT PRN (18:55)
[2018-08-30 20:16] VITALS: BP 133/78
[2018-08-30] MEDS: LORATADINE 10 MG TABLET GT SCH (21:35)
[2018-08-30] MEDS: LATANOPROST EYE DROP 0.005% 2.5 ML BOTTLE EACHEYE SCH (21:35)
[2018-08-30] MEDS: BENAZEPRIL HCL 5 MG TABLET GT SCH (21:35)
[2018-08-30] MEDS: AMLODIPINE BESYLATE 5 MG TABLET GT SCH (21:36)
[2018-08-30] MEDS: PRAVASTATIN SODIUM 20 MG TABLET GT SCH (21:36)
[2018-08-31] MEDS: ALBUTEROL HALF STRENGTH 1.25 MG/3 ML VIAL.NEB NEB SCH ×4 (00:51→19:53)
[2018-08-31] MEDS: CHLORHEXIDINE GLUCONATE 15 ML UDC MM SCH ×2 (05:05→17:22)
[2018-08-31] MEDS: RIFAXIMIN 550 MG TABLET GT SCH ×2 (09:21→16:58)
[2018-08-31] MEDS: ASPIRIN 81 MG TAB.CHEW GT SCH (09:21)
[2018-08-31] MEDS: POTASSIUM CHLORIDE GT SCH (09:21)
[2018-08-31] MEDS: HYDROGEN PEROXIDE 480 ML BOTTLE TP SCH ×2 (09:21→21:27)
[2018-08-31] MEDS: CHOLECALCIFEROL (VITAMIN D 3) 400 UNIT TABLET GT SCH ×2 (09:21→21:27)
[2018-08-31] MEDS: DICLOFENAC TOPICAL 100 GM GEL..GM. TP SCH ×2 (09:21→16:58)
[2018-08-31] MEDS: FINASTERIDE (5 MG) 5 MG TABLET GT SCH (09:21)
[2018-08-31] MEDS: BIOTIN 5000 MCG GT SCH (09:21)
[2018-08-31] MEDS: Z GUARD REMEDY 4 OZ OINT TP SCH ×2 (09:21→21:27)
[2018-08-31] MEDS: VITS A AND D/WHITE PET/LANOLIN 5 GM PACKET TP SCH ×4 (09:21→21:27)
[2018-08-31] MEDS: PRUNE JUICE GT SCH (11:00)
[2018-08-31] MEDS: [UNRECOGNIZED DRUG - OTHER] TP SCH ×2 (12:45→17:22)
[2018-08-31 19:48] VITALS: BP 129/86
[2018-08-31] MEDS: BENAZEPRIL HCL 5 MG TABLET GT SCH (21:27)
[2018-08-31] MEDS: PRAVASTATIN SODIUM 20 MG TABLET GT SCH (21:27)
[2018-08-31] MEDS: LORATADINE 10 MG TABLET GT SCH (21:27)
[2018-08-31] MEDS: AMLODIPINE BESYLATE 5 MG TABLET GT SCH (21:27)
[2018-08-31] MEDS: LATANOPROST EYE DROP 0.005% 2.5 ML BOTTLE EACHEYE SCH (21:27)
[2018-08-31] MEDS: JEVITY 1.2 CAL 1,000 ML BOTTLE GT PRN (21:28)
[2018-09-01] MEDS: ALBUTEROL HALF STRENGTH 1.25 MG/3 ML VIAL.NEB NEB SCH ×4 (02:04→19:34)
[2018-09-01] MEDS: CHLORHEXIDINE GLUCONATE 15 ML UDC MM SCH ×2 (05:30→17:14)
[2018-09-01] MEDS: MAGNESIUM HYDROXIDE 30 ML UDC GT PRN ×2 (07:10→22:05)
[2018-09-01 08:00] VITALS: BP 106/64
[2018-09-01] MEDS: POTASSIUM CHLORIDE GT SCH (09:19)
[2018-09-01] MEDS: DICLOFENAC TOPICAL 100 GM GEL..GM. TP SCH ×2 (09:20→17:14)
[2018-09-01] MEDS: RIFAXIMIN 550 MG TABLET GT SCH ×2 (09:20→17:13)
[2018-09-01] MEDS: FINASTERIDE (5 MG) 5 MG TABLET GT SCH (09:20)
[2018-09-01] MEDS: BIOTIN 5000 MCG GT SCH (09:20)
[2018-09-01] MEDS: CHOLECALCIFEROL (VITAMIN D 3) 400 UNIT TABLET GT SCH ×2 (09:20→21:08)
[2018-09-01] MEDS: Z GUARD REMEDY 4 OZ OINT TP SCH ×2 (09:20→21:08)
[2018-09-01] MEDS: HYDROGEN PEROXIDE 480 ML BOTTLE TP SCH ×2 (09:20→21:08)
[2018-09-01] MEDS: VITS A AND D/WHITE PET/LANOLIN 5 GM PACKET TP SCH ×4 (09:20→21:09)
[2018-09-01] MEDS: PRUNE JUICE GT SCH (11:46)
[2018-09-01] MEDS: [UNRECOGNIZED DRUG - OTHER] TP SCH ×2 (13:21→17:14)
[2018-09-01] MEDS: JEVITY 1.2 CAL 1,000 ML BOTTLE GT PRN (17:14)
[2018-09-01 19:55] VITALS: BP 134/73
[2018-09-01] MEDS: PRAVASTATIN SODIUM 20 MG TABLET GT SCH (21:09)
[2018-09-01] MEDS: BENAZEPRIL HCL 5 MG TABLET GT SCH (21:09)
[2018-09-01] MEDS: LORATADINE 10 MG TABLET GT SCH (21:09)
[2018-09-01] MEDS: AMLODIPINE BESYLATE 5 MG TABLET GT SCH (21:09)
[2018-09-01] MEDS: LATANOPROST EYE DROP 0.005% 2.5 ML BOTTLE EACHEYE SCH (21:09)
[2018-09-02] MEDS: ALBUTEROL HALF STRENGTH 1.25 MG/3 ML VIAL.NEB NEB SCH ×4 (01:17→19:30)
[2018-09-02] MEDS: CHLORHEXIDINE GLUCONATE 15 ML UDC MM SCH ×2 (05:42→17:10)
[2018-09-02] MEDS: JEVITY 1.2 CAL 1,000 ML BOTTLE GT PRN ×2 (05:55→22:31)
[2018-09-02] MEDS: BISACODYL SUPP (10 MG) 10 MG/SUPP.RECT SUPP.RECT RC PRN (06:38)
[2018-09-02 07:46] VITALS: BP 119/80
[2018-09-02] MEDS: BIOTIN 5000 MCG GT SCH (08:35)
[2018-09-02] MEDS: POTASSIUM CHLORIDE GT SCH (08:35)
[2018-09-02] MEDS: CHOLECALCIFEROL (VITAMIN D 3) 400 UNIT TABLET GT SCH ×2 (08:35→21:44)
[2018-09-02] MEDS: RIFAXIMIN 550 MG TABLET GT SCH ×2 (08:35→17:10)
[2018-09-02] MEDS: HYDROGEN PEROXIDE 480 ML BOTTLE TP SCH ×2 (08:35→21:44)
[2018-09-02] MEDS: FINASTERIDE (5 MG) 5 MG TABLET GT SCH (08:35)
[2018-09-02] MEDS: ASPIRIN 81 MG TAB.CHEW GT SCH (08:35)
[2018-09-02] MEDS: Z GUARD REMEDY 4 OZ OINT TP SCH ×2 (08:35→21:44)
[2018-09-02] MEDS: DICLOFENAC TOPICAL 100 GM GEL..GM. TP SCH ×2 (08:36→17:10)
[2018-09-02] MEDS: VITS A AND D/WHITE PET/LANOLIN 5 GM PACKET TP SCH ×4 (08:36→21:45)
[2018-09-02] MEDS: PRUNE JUICE GT SCH (11:00)
[2018-09-02] MEDS: [UNRECOGNIZED DRUG - OTHER] TP SCH ×2 (12:07→17:11)
[2018-09-02] MEDS: HYDROCODONE/APAP 7.5/325MG 1 EACH TABLET GT PRN (18:44)
[2018-09-02 19:58] VITALS: BP 140/78
[2018-09-02] MEDS: LORATADINE 10 MG TABLET GT SCH (21:45)
[2018-09-02] MEDS: AMLODIPINE BESYLATE 5 MG TABLET GT SCH (21:45)
[2018-09-02] MEDS: PRAVASTATIN SODIUM 20 MG TABLET GT SCH (21:45)
[2018-09-02] MEDS: LATANOPROST EYE DROP 0.005% 2.5 ML BOTTLE EACHEYE SCH (21:45)
[2018-09-02] MEDS: BENAZEPRIL HCL 5 MG TABLET GT SCH (21:45)
[2018-09-03] MEDS: ALBUTEROL HALF STRENGTH 1.25 MG/3 ML VIAL.NEB NEB SCH ×4 (01:34→19:35)
[2018-09-03] MEDS: CHLORHEXIDINE GLUCONATE 15 ML UDC MM SCH ×2 (05:32→17:21)
[2018-09-03 08:21] VITALS: BP 125/75
[2018-09-03] MEDS: HYDROGEN PEROXIDE 480 ML BOTTLE TP SCH ×2 (08:56→21:12)
[2018-09-03] MEDS: CHOLECALCIFEROL (VITAMIN D 3) 400 UNIT TABLET GT SCH ×2 (08:56→21:11)
[2018-09-03] MEDS: BIOTIN 5000 MCG GT SCH (08:56)
[2018-09-03] MEDS: FINASTERIDE (5 MG) 5 MG TABLET GT SCH (08:56)
[2018-09-03] MEDS: Z GUARD REMEDY 4 OZ OINT TP SCH ×2 (08:56→21:12)
[2018-09-03] MEDS: POTASSIUM CHLORIDE GT SCH (08:56)
[2018-09-03] MEDS: RIFAXIMIN 550 MG TABLET GT SCH ×2 (08:56→17:21)
[2018-09-03] MEDS: VITS A AND D/WHITE PET/LANOLIN 5 GM PACKET TP SCH ×4 (08:57→21:12)
[2018-09-03] MEDS: DICLOFENAC TOPICAL 100 GM GEL..GM. TP SCH ×2 (08:57→17:21)
[2018-09-03] MEDS: PRUNE JUICE GT SCH (11:00)
[2018-09-03] MEDS: [UNRECOGNIZED DRUG - OTHER] TP SCH ×2 (12:24→17:21)
--- NOTE | 2018-09-03 15:30 | NUR ---
Seen and examined by Dr. Jerry rain.
[2018-09-03] MEDS: JEVITY 1.2 CAL 1,000 ML BOTTLE GT PRN (17:39)
[2018-09-03 20:18] VITALS: BP 123/65
[2018-09-03] MEDS: AMLODIPINE BESYLATE 5 MG TABLET GT SCH (21:14)
[2018-09-03] MEDS: LATANOPROST EYE DROP 0.005% 2.5 ML BOTTLE EACHEYE SCH (21:14)
[2018-09-03] MEDS: BENAZEPRIL HCL 5 MG TABLET GT SCH (21:14)
[2018-09-03] MEDS: LORATADINE 10 MG TABLET GT SCH (21:14)
[2018-09-03] MEDS: PRAVASTATIN SODIUM 20 MG TABLET GT SCH (21:14)
--- NOTE | 2018-09-03 21:59 | NUR ---
RT NOTE PATIENT FOUND ON ROOM AIR AND PLACED PATIENT ON 28%COOL AEROSOL, Q6 BREATHING TREATMENT WAS GIVEN, NO ADVERSE REACTION NOTED. PRN SUCTION WAS DONE . TRACH TUBE PATENT AND SECURED. NO RESPIRATORY DISTRESS NOTED AT THIS TIME.WILL CONTINUE TO MONITOR PATIENT. Addendum: 09/03/18 at 2200 by LUANN LAFLEUR RT Amended: Links added.
[2018-09-04] MEDS: ALBUTEROL HALF STRENGTH 1.25 MG/3 ML VIAL.NEB NEB SCH ×4 (01:42→19:37)
[2018-09-04] MEDS: CHLORHEXIDINE GLUCONATE 15 ML UDC MM SCH ×2 (05:33→17:09)
[2018-09-04] MEDS: JEVITY 1.2 CAL 1,000 ML BOTTLE GT PRN (06:00)
[2018-09-04 07:23] VITALS: BP 120/80
[2018-09-04] MEDS: POTASSIUM CHLORIDE GT SCH (08:35)
[2018-09-04] MEDS: RIFAXIMIN 550 MG TABLET GT SCH ×2 (08:35→17:09)
[2018-09-04] MEDS: ASPIRIN 81 MG TAB.CHEW GT SCH (08:35)
[2018-09-04] MEDS: BIOTIN 5000 MCG GT SCH (08:35)
[2018-09-04] MEDS: FINASTERIDE (5 MG) 5 MG TABLET GT SCH (08:35)
[2018-09-04] MEDS: CHOLECALCIFEROL (VITAMIN D 3) 400 UNIT TABLET GT SCH ×2 (08:35→21:56)
[2018-09-04] MEDS: HYDROGEN PEROXIDE 480 ML BOTTLE TP SCH ×2 (08:35→21:56)
[2018-09-04] MEDS: DICLOFENAC TOPICAL 100 GM GEL..GM. TP SCH ×2 (08:36→17:09)
[2018-09-04] MEDS: VITS A AND D/WHITE PET/LANOLIN 5 GM PACKET TP SCH ×4 (08:50→21:56)
[2018-09-04] MEDS: Z GUARD REMEDY 4 OZ OINT TP SCH ×2 (08:50→21:56)
[2018-09-04] MEDS: PRUNE JUICE GT SCH (11:00)
[2018-09-04] MEDS: [UNRECOGNIZED DRUG - OTHER] TP SCH ×2 (13:00→17:09)
[2018-09-04 20:01] VITALS: BP 126/73
[2018-09-04] MEDS: LATANOPROST EYE DROP 0.005% 2.5 ML BOTTLE EACHEYE SCH (21:56)
[2018-09-04] MEDS: LORATADINE 10 MG TABLET GT SCH (21:56)
[2018-09-04] MEDS: BENAZEPRIL HCL 5 MG TABLET GT SCH (21:56)
[2018-09-04] MEDS: PRAVASTATIN SODIUM 20 MG TABLET GT SCH (21:57)
[2018-09-04] MEDS: AMLODIPINE BESYLATE 5 MG TABLET GT SCH (21:57)
[2018-09-05] MEDS: ALBUTEROL HALF STRENGTH 1.25 MG/3 ML VIAL.NEB NEB SCH ×4 (00:42→20:13)
[2018-09-05] MEDS: CHLORHEXIDINE GLUCONATE 15 ML UDC MM SCH ×2 (06:00→16:43)
[2018-09-05 07:53] VITALS: BP 114/62
[2018-09-05] MEDS: SUMATRIPTAN SUCCINATE 25 MG TABLET GT PRN (08:25)
[2018-09-05] MEDS: RIFAXIMIN 550 MG TABLET GT SCH ×2 (08:28→16:42)
[2018-09-05] MEDS: FINASTERIDE (5 MG) 5 MG TABLET GT SCH (08:28)
[2018-09-05] MEDS: POTASSIUM CHLORIDE GT SCH (08:28)
[2018-09-05] MEDS: BIOTIN 5000 MCG GT SCH (08:28)
[2018-09-05] MEDS: CHOLECALCIFEROL (VITAMIN D 3) 400 UNIT TABLET GT SCH ×2 (08:28→21:21)
[2018-09-05] MEDS: VITS A AND D/WHITE PET/LANOLIN 5 GM PACKET TP SCH ×4 (08:29→21:21)
[2018-09-05] MEDS: HYDROGEN PEROXIDE 480 ML BOTTLE TP SCH ×2 (08:29→21:21)
[2018-09-05] MEDS: Z GUARD REMEDY 4 OZ OINT TP SCH ×2 (08:29→21:21)
[2018-09-05] MEDS: DICLOFENAC TOPICAL 100 GM GEL..GM. TP SCH ×2 (08:30→16:42)
[2018-09-05] MEDS: PRUNE JUICE GT SCH (11:00)
[2018-09-05] MEDS: [UNRECOGNIZED DRUG - OTHER] TP SCH ×2 (12:43→16:43)
--- NOTE | 2018-09-05 15:09 | NUR ---
Resident had a dental cleaning today with Dr. Abrams
[2018-09-05] MEDS: HYDROCODONE/APAP 7.5/325MG 1 EACH TABLET GT PRN (16:15)
[2018-09-05] MEDS: JEVITY 1.2 CAL 1,000 ML BOTTLE GT PRN (19:09)
[2018-09-05 20:13] VITALS: BP 159/86
[2018-09-05] MEDS: LATANOPROST EYE DROP 0.005% 2.5 ML BOTTLE EACHEYE SCH (21:21)
[2018-09-05] MEDS: LORATADINE 10 MG TABLET GT SCH (21:22)
[2018-09-05] MEDS: PRAVASTATIN SODIUM 20 MG TABLET GT SCH (21:22)
[2018-09-05] MEDS: BENAZEPRIL HCL 5 MG TABLET GT SCH (21:22)
[2018-09-06] MEDS: ALBUTEROL HALF STRENGTH 1.25 MG/3 ML VIAL.NEB NEB SCH ×4 (01:17→19:11)
--- NOTE | 2018-09-06 02:02 | NUR ---
PT CHRISTOPHER RICHARDSON'D ON COOL AEROSOL WITH CHARTED SETTINGS. HHN TX GIVEN WITH NO ADVERSE REACTION NOTED. SX DONE. PT TRACH PATENT AND SECURE. NO RESPIRATORY DISTRESS NOTED AT THIS TIME. AMBU BAG AT BEDSIDE. Addendum: 09/06/18 at 0203 by LISETH MOCK RT Amended: Links added.
[2018-09-06] MEDS: CHLORHEXIDINE GLUCONATE 15 ML UDC MM SCH ×2 (06:05→17:57)
[2018-09-06] MEDS: JEVITY 1.2 CAL 1,000 ML BOTTLE GT PRN (08:09)
[2018-09-06] MEDS: FINASTERIDE (5 MG) 5 MG TABLET GT SCH (09:01)
[2018-09-06] MEDS: CHOLECALCIFEROL (VITAMIN D 3) 400 UNIT TABLET GT SCH ×2 (09:01→21:17)
[2018-09-06] MEDS: HYDROGEN PEROXIDE 480 ML BOTTLE TP SCH ×2 (09:01→21:17)
[2018-09-06] MEDS: RIFAXIMIN 550 MG TABLET GT SCH ×2 (09:01→17:57)
[2018-09-06] MEDS: BIOTIN 5000 MCG GT SCH (09:01)
[2018-09-06] MEDS: ASPIRIN 81 MG TAB.CHEW GT SCH (09:01)
[2018-09-06] MEDS: POTASSIUM CHLORIDE GT SCH (09:01)
[2018-09-06] MEDS: Z GUARD REMEDY 4 OZ OINT TP SCH ×2 (09:02→21:17)
[2018-09-06] MEDS: DICLOFENAC TOPICAL 100 GM GEL..GM. TP SCH ×2 (09:02→17:57)
[2018-09-06] MEDS: VITS A AND D/WHITE PET/LANOLIN 5 GM PACKET TP SCH ×4 (09:02→21:17)
--- NOTE | 2018-09-06 09:30 | NUR ---
RT NOTE: NEW TRACH INSERTED DUE TO PATIENT PULLING OUT HIS TRACH. A NEW PORTEX #[address]ED TRACH IS IN PLACE AND SECURED. PATIENT TOLERATED WELL. NO BLEEDING OR REDNESS NOTED. CHARGE NURSE (MIKEL) AWARE.
[2018-09-06] MEDS: PRUNE JUICE GT SCH (11:00)
[2018-09-06] MEDS: HYDROCODONE/APAP 7.5/325MG 1 EACH TABLET GT PRN (13:28)
[2018-09-06] MEDS: [UNRECOGNIZED DRUG - OTHER] TP SCH ×2 (13:29→17:57)
[2018-09-06 19:44] VITALS: BP 142/83
[2018-09-06] MEDS: LORATADINE 10 MG TABLET GT SCH (21:17)
[2018-09-06] MEDS: BENAZEPRIL HCL 5 MG TABLET GT SCH (21:17)
[2018-09-06] MEDS: LATANOPROST EYE DROP 0.005% 2.5 ML BOTTLE EACHEYE SCH (21:17)
[2018-09-06] MEDS: PRAVASTATIN SODIUM 20 MG TABLET GT SCH (21:18)
[2018-09-07] MEDS: ALBUTEROL HALF STRENGTH 1.25 MG/3 ML VIAL.NEB NEB SCH ×4 (02:02→19:27)
[2018-09-07] MEDS: CHLORHEXIDINE GLUCONATE 15 ML UDC MM SCH ×2 (05:50→18:19)
[2018-09-07 07:34] VITALS: BP 118/57
[2018-09-07] MEDS: POTASSIUM CHLORIDE GT SCH (08:33)
[2018-09-07] MEDS: CHOLECALCIFEROL (VITAMIN D 3) 400 UNIT TABLET GT SCH ×2 (08:34→21:13)
[2018-09-07] MEDS: Z GUARD REMEDY 4 OZ OINT TP SCH ×2 (08:34→21:13)
[2018-09-07] MEDS: BIOTIN 5000 MCG GT SCH (08:34)
[2018-09-07] MEDS: VITS A AND D/WHITE PET/LANOLIN 5 GM PACKET TP SCH ×4 (08:34→21:13)
[2018-09-07] MEDS: RIFAXIMIN 550 MG TABLET GT SCH ×2 (08:34→17:00)
[2018-09-07] MEDS: HYDROGEN PEROXIDE 480 ML BOTTLE TP SCH ×2 (08:34→21:13)
[2018-09-07] MEDS: FINASTERIDE (5 MG) 5 MG TABLET GT SCH (08:34)
[2018-09-07] MEDS: DICLOFENAC TOPICAL 100 GM GEL..GM. TP SCH ×2 (08:35→17:00)
[2018-09-07] MEDS: PRUNE JUICE GT SCH (11:00)
[2018-09-07] MEDS: [UNRECOGNIZED DRUG - OTHER] TP SCH ×2 (12:02→18:19)
--- NOTE | 2018-09-07 12:16 | NUR ---
Seen and examined by Dr. Edwards, NNO given.
[2018-09-07 20:33] VITALS: BP 124/72
[2018-09-07] MEDS: LATANOPROST EYE DROP 0.005% 2.5 ML BOTTLE EACHEYE SCH (21:13)
[2018-09-07] MEDS: LORATADINE 10 MG TABLET GT SCH (21:13)
[2018-09-07] MEDS: PRAVASTATIN SODIUM 20 MG TABLET GT SCH (21:13)
[2018-09-07] MEDS: BENAZEPRIL HCL 5 MG TABLET GT SCH (21:14)
[2018-09-08] MEDS: ALBUTEROL HALF STRENGTH 1.25 MG/3 ML VIAL.NEB NEB SCH ×4 (00:48→19:55)
[2018-09-08] MEDS: JEVITY 1.2 CAL 1,000 ML BOTTLE GT PRN ×2 (01:20→19:29)
[2018-09-08] MEDS: CHLORHEXIDINE GLUCONATE 15 ML UDC MM SCH ×2 (06:53→18:26)
[2018-09-08] MEDS: MAGNESIUM HYDROXIDE 30 ML UDC GT PRN (07:18)
[2018-09-08 07:32] VITALS: BP 136/74
[2018-09-08] MEDS: ASPIRIN 81 MG TAB.CHEW GT SCH (08:51)
[2018-09-08] MEDS: BIOTIN 5000 MCG GT SCH (08:51)
[2018-09-08] MEDS: CHOLECALCIFEROL (VITAMIN D 3) 400 UNIT TABLET GT SCH ×2 (08:51→21:11)
[2018-09-08] MEDS: FINASTERIDE (5 MG) 5 MG TABLET GT SCH (08:51)
[2018-09-08] MEDS: RIFAXIMIN 550 MG TABLET GT SCH ×2 (08:51→17:00)
[2018-09-08] MEDS: POTASSIUM CHLORIDE GT SCH (08:51)
[2018-09-08] MEDS: DICLOFENAC TOPICAL 100 GM GEL..GM. TP SCH ×2 (08:52→17:00)
[2018-09-08] MEDS: HYDROGEN PEROXIDE 480 ML BOTTLE TP SCH ×2 (08:52→21:11)
[2018-09-08] MEDS: Z GUARD REMEDY 4 OZ OINT TP SCH ×2 (08:52→21:11)
[2018-09-08] MEDS: VITS A AND D/WHITE PET/LANOLIN 5 GM PACKET TP SCH ×4 (08:52→21:12)
[2018-09-08] MEDS: PRUNE JUICE GT SCH (11:00)
[2018-09-08] MEDS: [UNRECOGNIZED DRUG - OTHER] TP SCH ×2 (12:30→18:26)
--- NOTE | 2018-09-08 13:30 | NUR ---
Seen and examined by Denise Pichardo NP NNO given at this time.
[2018-09-08 19:27] VITALS: BP 126/78
[2018-09-08] MEDS: BENAZEPRIL HCL 5 MG TABLET GT SCH (21:12)
[2018-09-08] MEDS: LATANOPROST EYE DROP 0.005% 2.5 ML BOTTLE EACHEYE SCH (21:12)
[2018-09-08] MEDS: PRAVASTATIN SODIUM 20 MG TABLET GT SCH (21:12)
[2018-09-08] MEDS: LORATADINE 10 MG TABLET GT SCH (21:12)
[2018-09-08] MEDS: HYDROCODONE/APAP 7.5/325MG 1 EACH TABLET GT PRN (22:30)
[2018-09-09] MEDS: ALBUTEROL HALF STRENGTH 1.25 MG/3 ML VIAL.NEB NEB SCH ×4 (00:54→19:37)
[2018-09-09] MEDS: CHLORHEXIDINE GLUCONATE 15 ML UDC MM SCH ×2 (05:16→17:12)
[2018-09-09 07:42] VITALS: BP 139/80
[2018-09-09] MEDS: Z GUARD REMEDY 4 OZ OINT TP SCH ×2 (08:32→21:16)
[2018-09-09] MEDS: FINASTERIDE (5 MG) 5 MG TABLET GT SCH (08:32)
[2018-09-09] MEDS: POTASSIUM CHLORIDE GT SCH (08:32)
[2018-09-09] MEDS: RIFAXIMIN 550 MG TABLET GT SCH ×2 (08:32→17:12)
[2018-09-09] MEDS: CHOLECALCIFEROL (VITAMIN D 3) 400 UNIT TABLET GT SCH ×2 (08:32→21:16)
[2018-09-09] MEDS: VITS A AND D/WHITE PET/LANOLIN 5 GM PACKET TP SCH ×4 (08:32→21:16)
[2018-09-09] MEDS: BIOTIN 5000 MCG GT SCH (08:32)
[2018-09-09] MEDS: HYDROGEN PEROXIDE 480 ML BOTTLE TP SCH ×2 (08:32→21:16)
[2018-09-09] MEDS: DICLOFENAC TOPICAL 100 GM GEL..GM. TP SCH ×2 (08:33→17:12)
[2018-09-09] MEDS: PRUNE JUICE GT SCH (11:00)
[2018-09-09] MEDS: [UNRECOGNIZED DRUG - OTHER] TP SCH ×2 (12:22→17:12)
--- NOTE | 2018-09-09 14:07 | NUR ---
Geometry Teacher Section of [employer] (first quarter) completed. Resident's visits him daily. Resident receives ambulation for 45 min daily. He had a dental cleaning on 09/05/18, and has a podiatry appt. on 09/09/18
[2018-09-09] MEDS: JEVITY 1.2 CAL 1,000 ML BOTTLE GT PRN (17:22)
[2018-09-09 19:35] VITALS: BP 140/86
[2018-09-09] MEDS: LATANOPROST EYE DROP 0.005% 2.5 ML BOTTLE EACHEYE SCH (21:16)
[2018-09-09] MEDS: LORATADINE 10 MG TABLET GT SCH (21:16)
[2018-09-09] MEDS: BENAZEPRIL HCL 5 MG TABLET GT SCH (21:17)
[2018-09-09] MEDS: PRAVASTATIN SODIUM 20 MG TABLET GT SCH (21:17)
--- NOTE | 2018-09-09 21:43 | NUR ---
RT NOTE: PATIENT WAS RECEIVED ON COOL AEROSOL. AMBU BAG/BACK UP TRACH @ BEDSIDE. Q6 BREATHING TX GIVEN PER MD ORDERS WITH NO ADVERSE REACTION NOTED. SUCTION DONE PRN. TRACH PATENT AND SECURED. NO RESPIRATORY DISTRESS NOTED AT THIS TIME. WILL CONTINUE TO MONITOR PATIENT Addendum: 09/09/18 at 2144 by LUANN LAFLEUR RT Amended: Links added.
[2018-09-09] MEDS: HYDROCODONE/APAP 7.5/325MG 1 EACH TABLET GT PRN (23:10)
[2018-09-10] MEDS: ALBUTEROL HALF STRENGTH 1.25 MG/3 ML VIAL.NEB NEB SCH ×4 (01:27→19:30)
[2018-09-10] MEDS: CHLORHEXIDINE GLUCONATE 15 ML UDC MM SCH ×2 (05:31→17:37)
[2018-09-10] MEDS: JEVITY 1.2 CAL 1,000 ML BOTTLE GT PRN (06:00)
[2018-09-10 07:34] VITALS: BP 119/73
[2018-09-10] MEDS: HYDROCODONE/APAP 7.5/325MG 1 EACH TABLET GT PRN (08:00)
[2018-09-10] MEDS: RIFAXIMIN 550 MG TABLET GT SCH ×2 (08:03→17:37)
[2018-09-10] MEDS: FINASTERIDE (5 MG) 5 MG TABLET GT SCH (08:03)
[2018-09-10] MEDS: ASPIRIN 81 MG TAB.CHEW GT SCH (08:03)
[2018-09-10] MEDS: POTASSIUM CHLORIDE GT SCH (08:03)
[2018-09-10] MEDS: Z GUARD REMEDY 4 OZ OINT TP SCH ×2 (08:03→21:35)
[2018-09-10] MEDS: HYDROGEN PEROXIDE 480 ML BOTTLE TP SCH ×2 (08:03→21:35)
[2018-09-10] MEDS: VITS A AND D/WHITE PET/LANOLIN 5 GM PACKET TP SCH ×4 (08:03→21:35)
[2018-09-10] MEDS: BIOTIN 5000 MCG GT SCH (08:03)
[2018-09-10] MEDS: CHOLECALCIFEROL (VITAMIN D 3) 400 UNIT TABLET GT SCH ×2 (08:03→21:35)
[2018-09-10] MEDS: DICLOFENAC TOPICAL 100 GM GEL..GM. TP SCH ×2 (08:04→17:37)
[2018-09-10] MEDS: PRUNE JUICE GT SCH (11:25)
[2018-09-10] MEDS: [UNRECOGNIZED DRUG - OTHER] TP SCH ×2 (12:56→17:37)
[2018-09-10] MEDS: MAGNESIUM HYDROXIDE 30 ML UDC GT PRN (21:00)
[2018-09-10 21:04] VITALS: BP 120/74
[2018-09-10] MEDS: LORATADINE 10 MG TABLET GT SCH (21:35)
[2018-09-10] MEDS: LATANOPROST EYE DROP 0.005% 2.5 ML BOTTLE EACHEYE SCH (21:35)
[2018-09-10] MEDS: BENAZEPRIL HCL 5 MG TABLET GT SCH (21:36)
[2018-09-10] MEDS: PRAVASTATIN SODIUM 20 MG TABLET GT SCH (22:16)
[2018-09-11] MEDS: ALBUTEROL HALF STRENGTH 1.25 MG/3 ML VIAL.NEB NEB SCH ×4 (00:59→19:44)
[2018-09-11] MEDS: CHLORHEXIDINE GLUCONATE 15 ML UDC MM SCH ×2 (06:07→17:07)
[2018-09-11 07:54] VITALS: BP 98/66
[2018-09-11] MEDS: BIOTIN 5000 MCG GT SCH (08:28)
[2018-09-11] MEDS: RIFAXIMIN 550 MG TABLET GT SCH ×2 (08:28→17:07)
[2018-09-11] MEDS: FINASTERIDE (5 MG) 5 MG TABLET GT SCH (08:28)
[2018-09-11] MEDS: POTASSIUM CHLORIDE GT SCH (08:28)
[2018-09-11] MEDS: CHOLECALCIFEROL (VITAMIN D 3) 400 UNIT TABLET GT SCH ×2 (08:28→21:17)
[2018-09-11] MEDS: VITS A AND D/WHITE PET/LANOLIN 5 GM PACKET TP SCH ×4 (08:29→21:18)
[2018-09-11] MEDS: DICLOFENAC TOPICAL 100 GM GEL..GM. TP SCH ×2 (08:29→17:07)
[2018-09-11] MEDS: Z GUARD REMEDY 4 OZ OINT TP SCH ×2 (08:29→21:18)
[2018-09-11] MEDS: HYDROGEN PEROXIDE 480 ML BOTTLE TP SCH ×2 (08:29→21:18)
[2018-09-11] MEDS: PRUNE JUICE GT SCH (11:00)
[2018-09-11] MEDS: [UNRECOGNIZED DRUG - OTHER] TP SCH ×2 (12:29→17:35)
[2018-09-11] MEDS: JEVITY 1.2 CAL 1,000 ML BOTTLE GT PRN ×2 (19:01)
[2018-09-11 19:47] VITALS: BP 122/80
[2018-09-11] MEDS: LORATADINE 10 MG TABLET GT SCH (21:19)
[2018-09-11] MEDS: LATANOPROST EYE DROP 0.005% 2.5 ML BOTTLE EACHEYE SCH (21:20)
[2018-09-11] MEDS: BENAZEPRIL HCL 5 MG TABLET GT SCH (21:21)
[2018-09-11] MEDS: PRAVASTATIN SODIUM 20 MG TABLET GT SCH (21:22)
[2018-09-12] MEDS: ALBUTEROL HALF STRENGTH 1.25 MG/3 ML VIAL.NEB NEB SCH ×4 (00:42→19:24)
[2018-09-12] MEDS: CHLORHEXIDINE GLUCONATE 15 ML UDC MM SCH ×2 (05:28→17:34)
[2018-09-12] MEDS: ASPIRIN 81 MG TAB.CHEW GT SCH (08:30)
[2018-09-12] MEDS: POTASSIUM CHLORIDE GT SCH (09:36)
[2018-09-12] MEDS: BIOTIN 5000 MCG GT SCH (09:36)
[2018-09-12] MEDS: CHOLECALCIFEROL (VITAMIN D 3) 400 UNIT TABLET GT SCH ×2 (09:37→21:05)
[2018-09-12] MEDS: VITS A AND D/WHITE PET/LANOLIN 5 GM PACKET TP SCH ×4 (09:37→21:02)
[2018-09-12] MEDS: RIFAXIMIN 550 MG TABLET GT SCH ×2 (09:37→17:34)
[2018-09-12] MEDS: FINASTERIDE (5 MG) 5 MG TABLET GT SCH (09:37)
[2018-09-12] MEDS: Z GUARD REMEDY 4 OZ OINT TP SCH ×2 (09:37→21:02)
[2018-09-12] MEDS: DICLOFENAC TOPICAL 100 GM GEL..GM. TP SCH ×2 (09:37→17:34)
[2018-09-12] MEDS: HYDROGEN PEROXIDE 480 ML BOTTLE TP SCH ×2 (09:37→21:01)
[2018-09-12] MEDS: HYDROCODONE/APAP 7.5/325MG 1 EACH TABLET GT PRN (09:42)
[2018-09-12] MEDS: PRUNE JUICE GT SCH (11:00)
[2018-09-12 12:16] VITALS: BP 120/81
[2018-09-12] MEDS: [UNRECOGNIZED DRUG - OTHER] TP SCH ×2 (13:00→17:34)
--- NOTE | 2018-09-12 14:20 | NUR ---
Pt. was seeing bny the podiatry Dr. Crespo on 09/09 and an appointment was made for 09/30.
[2018-09-12] MEDS: JEVITY 1.2 CAL 1,000 ML BOTTLE GT PRN (17:50)
[2018-09-12 19:48] VITALS: BP 139/88
[2018-09-12] MEDS: LATANOPROST EYE DROP 0.005% 2.5 ML BOTTLE EACHEYE SCH (21:05)
[2018-09-12] MEDS: LORATADINE 10 MG TABLET GT SCH (21:05)
[2018-09-12] MEDS: BENAZEPRIL HCL 5 MG TABLET GT SCH (21:06)
[2018-09-12] MEDS: PRAVASTATIN SODIUM 20 MG TABLET GT SCH (21:07)
[2018-09-13] MEDS: ALBUTEROL HALF STRENGTH 1.25 MG/3 ML VIAL.NEB NEB SCH ×4 (01:18→19:38)
[2018-09-13] MEDS: CHLORHEXIDINE GLUCONATE 15 ML UDC MM SCH ×2 (05:51→17:04)
[2018-09-13] MEDS: FINASTERIDE (5 MG) 5 MG TABLET GT SCH (09:04)
[2018-09-13] MEDS: POTASSIUM CHLORIDE GT SCH (09:04)
[2018-09-13] MEDS: BIOTIN 5000 MCG GT SCH (09:04)
[2018-09-13] MEDS: RIFAXIMIN 550 MG TABLET GT SCH ×2 (09:05→17:03)
[2018-09-13] MEDS: DICLOFENAC TOPICAL 100 GM GEL..GM. TP SCH ×2 (09:05→17:04)
[2018-09-13] MEDS: HYDROGEN PEROXIDE 480 ML BOTTLE TP SCH ×2 (09:05→21:37)
[2018-09-13] MEDS: CHOLECALCIFEROL (VITAMIN D 3) 400 UNIT TABLET GT SCH ×2 (09:05→21:37)
[2018-09-13] MEDS: Z GUARD REMEDY 4 OZ OINT TP SCH ×2 (09:05→21:37)
[2018-09-13] MEDS: VITS A AND D/WHITE PET/LANOLIN 5 GM PACKET TP SCH ×4 (09:05→21:37)
[2018-09-13] MEDS: PRUNE JUICE GT SCH (11:00)
[2018-09-13 12:17] VITALS: BP 134/73
[2018-09-13] MEDS: [UNRECOGNIZED DRUG - OTHER] TP SCH ×2 (13:00→17:04)
[2018-09-13] MEDS: MAGNESIUM HYDROXIDE 30 ML UDC GT PRN (15:08)
[2018-09-13] MEDS: LATANOPROST EYE DROP 0.005% 2.5 ML BOTTLE EACHEYE SCH (21:37)
[2018-09-13] MEDS: LORATADINE 10 MG TABLET GT SCH (21:37)
[2018-09-13] MEDS: BENAZEPRIL HCL 5 MG TABLET GT SCH (21:38)
[2018-09-13] MEDS: PRAVASTATIN SODIUM 20 MG TABLET GT SCH (21:39)
[2018-09-13] MEDS: HYDROCODONE/APAP 7.5/325MG 1 EACH TABLET GT PRN (23:49)
[2018-09-14] MEDS: ALBUTEROL HALF STRENGTH 1.25 MG/3 ML VIAL.NEB NEB SCH ×4 (01:37→19:56)
[2018-09-14] MEDS: JEVITY 1.2 CAL 1,000 ML BOTTLE GT PRN ×2 (02:22→22:30)
[2018-09-14 05:14] VITALS: BP 139/87
[2018-09-14] MEDS: CHLORHEXIDINE GLUCONATE 15 ML UDC MM SCH ×2 (05:50→17:22)
[2018-09-14 07:39] VITALS: BP 129/71
[2018-09-14] MEDS: Z GUARD REMEDY 4 OZ OINT TP SCH ×2 (09:00→21:16)
[2018-09-14] MEDS: VITS A AND D/WHITE PET/LANOLIN 5 GM PACKET TP SCH ×4 (09:00→21:16)
[2018-09-14] MEDS: DICLOFENAC TOPICAL 100 GM GEL..GM. TP SCH ×2 (09:00→16:38)
[2018-09-14] MEDS: HYDROGEN PEROXIDE 480 ML BOTTLE TP SCH ×2 (09:00→21:16)
[2018-09-14] MEDS: BIOTIN 5000 MCG GT SCH (09:13)
[2018-09-14] MEDS: CHOLECALCIFEROL (VITAMIN D 3) 400 UNIT TABLET GT SCH ×2 (09:13→21:19)
[2018-09-14] MEDS: FINASTERIDE (5 MG) 5 MG TABLET GT SCH (09:13)
[2018-09-14] MEDS: ASPIRIN 81 MG TAB.CHEW GT SCH (09:13)
[2018-09-14] MEDS: RIFAXIMIN 550 MG TABLET GT SCH ×2 (09:13→16:38)
[2018-09-14] MEDS: POTASSIUM CHLORIDE GT SCH (09:13)
[2018-09-14] MEDS: PRUNE JUICE GT SCH (11:00)
--- NOTE | 2018-09-14 11:08 | NUR ---
SW met with resident's today to follow up with previous 's concerns about communication with sub-acute staff. Mrs. Lopez told SW that she was directing her requests to the charge nurse and that she was following the policies such as ( leaving the room when residents is being washed, letting staff make the bed and not keeping extra towels in the drawers) Mrs. Lopez expressed she was happy with SW support and that she would communicate with SW any future concerns.
[2018-09-14] MEDS: [UNRECOGNIZED DRUG - OTHER] TP SCH ×2 (12:56→17:22)
--- NOTE | 2018-09-14 14:00 | NUR ---
Seen and examined by Denise Pichardo NP NNO given. at bedside, no concern reported.
[2018-09-14 19:37] VITALS: BP 144/65
[2018-09-14] MEDS: LATANOPROST EYE DROP 0.005% 2.5 ML BOTTLE EACHEYE SCH (21:16)
[2018-09-14] MEDS: BENAZEPRIL HCL 5 MG TABLET GT SCH (21:18)
[2018-09-14] MEDS: PRAVASTATIN SODIUM 20 MG TABLET GT SCH (21:18)
[2018-09-14] MEDS: LORATADINE 10 MG TABLET GT SCH (21:19)
[2018-09-15] MEDS: ALBUTEROL HALF STRENGTH 1.25 MG/3 ML VIAL.NEB NEB SCH ×4 (02:26→19:47)
[2018-09-15] MEDS: CHLORHEXIDINE GLUCONATE 15 ML UDC MM SCH ×2 (05:04→18:01)
[2018-09-15 07:45] VITALS: BP 123/75
[2018-09-15] MEDS: CHOLECALCIFEROL (VITAMIN D 3) 400 UNIT TABLET GT SCH ×2 (08:16→20:53)
[2018-09-15] MEDS: RIFAXIMIN 550 MG TABLET GT SCH ×2 (08:16→16:52)
[2018-09-15] MEDS: FINASTERIDE (5 MG) 5 MG TABLET GT SCH (08:16)
[2018-09-15] MEDS: BIOTIN 5000 MCG GT SCH (08:16)
[2018-09-15] MEDS: POTASSIUM CHLORIDE GT SCH (08:16)
[2018-09-15] MEDS: HYDROGEN PEROXIDE 480 ML BOTTLE TP SCH ×2 (09:00→20:53)
[2018-09-15] MEDS: Z GUARD REMEDY 4 OZ OINT TP SCH ×2 (09:00→20:53)
[2018-09-15] MEDS: VITS A AND D/WHITE PET/LANOLIN 5 GM PACKET TP SCH ×4 (09:00→20:53)
[2018-09-15] MEDS: DICLOFENAC TOPICAL 100 GM GEL..GM. TP SCH ×2 (09:00→16:53)
[2018-09-15] MEDS: PRUNE JUICE GT SCH (11:31)
[2018-09-15] MEDS: [UNRECOGNIZED DRUG - OTHER] TP SCH ×2 (12:54→18:01)
[2018-09-15] MEDS: JEVITY 1.2 CAL 1,000 ML BOTTLE GT PRN (13:40)
[2018-09-15 19:30] VITALS: BP 138/85
[2018-09-15] MEDS: MAGNESIUM HYDROXIDE 30 ML UDC GT PRN (20:54)
[2018-09-15] MEDS: LATANOPROST EYE DROP 0.005% 2.5 ML BOTTLE EACHEYE SCH (21:01)
[2018-09-15] MEDS: LORATADINE 10 MG TABLET GT SCH (21:01)
[2018-09-15] MEDS: PRAVASTATIN SODIUM 20 MG TABLET GT SCH (21:02)
[2018-09-15] MEDS: BENAZEPRIL HCL 5 MG TABLET GT SCH (21:02)
[2018-09-16] MEDS: ALBUTEROL HALF STRENGTH 1.25 MG/3 ML VIAL.NEB NEB SCH ×4 (01:27→19:43)
[2018-09-16] MEDS: JEVITY 1.2 CAL 1,000 ML BOTTLE GT PRN (05:42)
[2018-09-16] MEDS: CHLORHEXIDINE GLUCONATE 15 ML UDC MM SCH ×2 (05:42→17:21)
[2018-09-16 08:03] VITALS: BP 144/87
[2018-09-16] MEDS: ASPIRIN 81 MG TAB.CHEW GT SCH (08:38)
[2018-09-16] MEDS: CHOLECALCIFEROL (VITAMIN D 3) 400 UNIT TABLET GT SCH ×2 (08:38→21:08)
[2018-09-16] MEDS: BIOTIN 5000 MCG GT SCH (08:38)
[2018-09-16] MEDS: POTASSIUM CHLORIDE GT SCH (08:38)
[2018-09-16] MEDS: FINASTERIDE (5 MG) 5 MG TABLET GT SCH (08:38)
[2018-09-16] MEDS: RIFAXIMIN 550 MG TABLET GT SCH ×2 (08:38→17:21)
[2018-09-16] MEDS: DICLOFENAC TOPICAL 100 GM GEL..GM. TP SCH ×2 (09:00→17:21)
[2018-09-16] MEDS: VITS A AND D/WHITE PET/LANOLIN 5 GM PACKET TP SCH ×4 (09:00→21:10)
[2018-09-16] MEDS: HYDROGEN PEROXIDE 480 ML BOTTLE TP SCH ×2 (09:00→21:10)
[2018-09-16] MEDS: Z GUARD REMEDY 4 OZ OINT TP SCH ×2 (09:00→21:10)
[2018-09-16] MEDS: PRUNE JUICE GT SCH (11:00)
[2018-09-16] MEDS: ACETAMINOPHEN 650 MG/20 ML UDC- SA PATIENTS-PAIN ONLY GT PRN (11:00)
--- NOTE | 2018-09-16 11:14 | NUR ---
Resident's asked SW if resident's mattress could be changed since resident was complaining about it. Mrs. Lopez said that the mattress was too "thin", not adequate for resident's weight. SW was able to provide resident with a new mattress as requested.
[2018-09-16] MEDS: [UNRECOGNIZED DRUG - OTHER] TP SCH ×2 (13:03→17:21)
[2018-09-16] MEDS: HYDROCODONE/APAP 7.5/325MG 1 EACH TABLET GT PRN (17:51)
--- NOTE | 2018-09-16 18:45 | NUR ---
Received a call from resident's daughter Tamara stating that she thinks patient has allergic reaction could be the reason why he has increased secretions. Patient suctioned frequently almost q 15-30 minutes interval with white to light yellow secretions in color. According to daughter she wants the patient to be comfortable if MD can prescribed something to help him. Left a message to Dr. Edwards but apparently he is [place] of [place]. Spoke with MD business liaison officer, Dr. Rivas and made her aware of family's concern but not comfortable to prescribe over the phone, instead suggested to follow-up with Dr. Edwards in AM since it is not emergency. Informed patient's daughter Tamara that this will be followed-up in AM.
[2018-09-16 19:36] VITALS: BP 144/74
[2018-09-16 20:00] VITALS: BP 144/74
[2018-09-16] MEDS: LATANOPROST EYE DROP 0.005% 2.5 ML BOTTLE EACHEYE SCH (21:10)
[2018-09-16] MEDS: PRAVASTATIN SODIUM 20 MG TABLET GT SCH (21:11)
[2018-09-16] MEDS: BENAZEPRIL HCL 5 MG TABLET GT SCH (21:12)
[2018-09-16] MEDS: LORATADINE 10 MG TABLET GT SCH (21:13)
[2018-09-17] MEDS: ALBUTEROL HALF STRENGTH 1.25 MG/3 ML VIAL.NEB NEB SCH ×3 (01:16→13:30)
[2018-09-17] MEDS: HYDROCODONE/APAP 7.5/325MG 1 EACH TABLET GT PRN ×2 (01:24→18:08)
--- NOTE | 2018-09-17 01:37 | NUR ---
RN NOTE PT WITH C/O OF HEADACHE. RESTLESS IN BED. ADMINISTERED PRN NORCO ORDERED. WILL MONITOR FOR EFFECTIVENESS.
[2018-09-17] MEDS: CHLORHEXIDINE GLUCONATE 15 ML UDC MM SCH ×2 (05:27→18:10)
[2018-09-17] MEDS: JEVITY 1.2 CAL 1,000 ML BOTTLE GT PRN ×2 (05:27→21:12)
[2018-09-17 07:58] VITALS: BP 144/81
[2018-09-17] MEDS: BIOTIN 5000 MCG GT SCH (08:19)
[2018-09-17] MEDS: CHOLECALCIFEROL (VITAMIN D 3) 400 UNIT TABLET GT SCH ×2 (08:19→20:43)
[2018-09-17] MEDS: POTASSIUM CHLORIDE GT SCH (08:19)
[2018-09-17] MEDS: FINASTERIDE (5 MG) 5 MG TABLET GT SCH (08:19)
[2018-09-17] MEDS: HYDROGEN PEROXIDE 480 ML BOTTLE TP SCH ×2 (08:20→20:43)
[2018-09-17] MEDS: VITS A AND D/WHITE PET/LANOLIN 5 GM PACKET TP SCH ×4 (08:20→20:43)
[2018-09-17] MEDS: Z GUARD REMEDY 4 OZ OINT TP SCH ×2 (08:20→20:43)
[2018-09-17] MEDS: RIFAXIMIN 550 MG TABLET GT SCH ×2 (08:20→16:12)
[2018-09-17] MEDS: DICLOFENAC TOPICAL 100 GM GEL..GM. TP SCH ×2 (09:00→17:00)
[2018-09-17] MEDS: SUMATRIPTAN SUCCINATE 25 MG TABLET GT PRN (10:45)
[2018-09-17] MEDS: PRUNE JUICE GT SCH (11:09)
[2018-09-17] MEDS: [UNRECOGNIZED DRUG - OTHER] TP SCH ×2 (12:31→18:10)
--- NOTE | 2018-09-17 15:28 | NUR ---
Seen and examined by Dr. Edwards, reported that patient has increased secretions. at bedside and verbalized concern with MD. New order given to start patient on Zythromax for 5 days and changed routine breathing treatment from Albuterol to Atrovent. Order noted and carried out.
[2018-09-17] MEDS: AZITHROMYCIN 250 MG TABLET GT SCH (18:10)
[2018-09-17] MEDS: IPRATROPIUM NEB FS 0.5 MG/2.5 ML AMPUL.NEB NEB SCH (19:55)
[2018-09-17] MEDS: LATANOPROST EYE DROP 0.005% 2.5 ML BOTTLE EACHEYE SCH (21:11)
[2018-09-17] MEDS: PRAVASTATIN SODIUM 20 MG TABLET GT SCH (21:11)
[2018-09-17] MEDS: LORATADINE 10 MG TABLET GT SCH (21:11)
[2018-09-17] MEDS: BENAZEPRIL HCL 5 MG TABLET GT SCH (21:11)
[2018-09-17 22:45] VITALS: BP 121/73
[2018-09-18] MEDS: IPRATROPIUM NEB FS 0.5 MG/2.5 ML AMPUL.NEB NEB SCH ×4 (02:24→19:52)
[2018-09-18] MEDS: MAGNESIUM HYDROXIDE 30 ML UDC GT PRN (05:36)
[2018-09-18] MEDS: CHLORHEXIDINE GLUCONATE 15 ML UDC MM SCH ×2 (05:36→17:48)
[2018-09-18 07:32] VITALS: BP 111/68
[2018-09-18] MEDS: ASPIRIN 81 MG TAB.CHEW GT SCH (08:30)
[2018-09-18] MEDS: DICLOFENAC TOPICAL 100 GM GEL..GM. TP SCH ×2 (09:00→17:47)
[2018-09-18] MEDS: HYDROGEN PEROXIDE 480 ML BOTTLE TP SCH ×2 (09:00→21:19)
[2018-09-18] MEDS: Z GUARD REMEDY 4 OZ OINT TP SCH ×2 (09:00→21:19)
[2018-09-18] MEDS: VITS A AND D/WHITE PET/LANOLIN 5 GM PACKET TP SCH ×4 (09:00→21:19)
[2018-09-18] MEDS: POTASSIUM CHLORIDE GT SCH (09:53)
[2018-09-18] MEDS: CHOLECALCIFEROL (VITAMIN D 3) 400 UNIT TABLET GT SCH ×2 (09:53→21:19)
[2018-09-18] MEDS: BIOTIN 5000 MCG GT SCH (09:53)
[2018-09-18] MEDS: RIFAXIMIN 550 MG TABLET GT SCH ×2 (09:53→17:47)
[2018-09-18] MEDS: FINASTERIDE (5 MG) 5 MG TABLET GT SCH (09:53)
[2018-09-18] MEDS: PRUNE JUICE GT SCH (10:41)
[2018-09-18] MEDS: [UNRECOGNIZED DRUG - OTHER] TP SCH ×2 (12:58→17:49)
[2018-09-18] MEDS: AZITHROMYCIN 250 MG TABLET GT SCH (17:47)
[2018-09-18] MEDS: JEVITY 1.2 CAL 1,000 ML BOTTLE GT PRN (17:50)
[2018-09-18 19:39] VITALS: BP 133/77
[2018-09-18] MEDS: LORATADINE 10 MG TABLET GT SCH (21:19)
[2018-09-18] MEDS: LATANOPROST EYE DROP 0.005% 2.5 ML BOTTLE EACHEYE SCH (21:19)
[2018-09-18] MEDS: PRAVASTATIN SODIUM 20 MG TABLET GT SCH (21:20)
[2018-09-18] MEDS: BENAZEPRIL HCL 5 MG TABLET GT SCH (21:20)
[2018-09-19] MEDS: IPRATROPIUM NEB FS 0.5 MG/2.5 ML AMPUL.NEB NEB SCH ×4 (01:44→19:38)
[2018-09-19] MEDS: CHLORHEXIDINE GLUCONATE 15 ML UDC MM SCH ×2 (06:20→17:08)
[2018-09-19] MEDS: JEVITY 1.2 CAL 1,000 ML BOTTLE GT PRN ×2 (06:28→21:09)
[2018-09-19 07:45] VITALS: BP 128/79
[2018-09-19] MEDS: BIOTIN 5000 MCG GT SCH (08:02)
[2018-09-19] MEDS: POTASSIUM CHLORIDE GT SCH (08:02)
[2018-09-19] MEDS: CHOLECALCIFEROL (VITAMIN D 3) 400 UNIT TABLET GT SCH ×2 (08:02→21:09)
[2018-09-19] MEDS: FINASTERIDE (5 MG) 5 MG TABLET GT SCH (08:02)
[2018-09-19] MEDS: RIFAXIMIN 550 MG TABLET GT SCH ×2 (08:02→17:08)
[2018-09-19] MEDS: Z GUARD REMEDY 4 OZ OINT TP SCH ×2 (09:00→21:09)
[2018-09-19] MEDS: DICLOFENAC TOPICAL 100 GM GEL..GM. TP SCH ×2 (09:00→17:08)
[2018-09-19] MEDS: VITS A AND D/WHITE PET/LANOLIN 5 GM PACKET TP SCH ×4 (09:00→21:09)
[2018-09-19] MEDS: HYDROGEN PEROXIDE 480 ML BOTTLE TP SCH ×2 (09:00→21:09)
[2018-09-19] MEDS: HYDROCODONE/APAP 7.5/325MG 1 EACH TABLET GT PRN ×2 (10:11→21:10)
[2018-09-19] MEDS: PRUNE JUICE GT SCH (11:00)
[2018-09-19] MEDS: [UNRECOGNIZED DRUG - OTHER] TP SCH ×2 (12:12→17:08)
[2018-09-19] MEDS: AZITHROMYCIN 250 MG TABLET GT SCH (17:08)
[2018-09-19 20:05] VITALS: BP 145/83
[2018-09-19] MEDS: LATANOPROST EYE DROP 0.005% 2.5 ML BOTTLE EACHEYE SCH (21:09)
[2018-09-19] MEDS: PRAVASTATIN SODIUM 20 MG TABLET GT SCH (21:09)
[2018-09-19] MEDS: LORATADINE 10 MG TABLET GT SCH (21:09)
[2018-09-19] MEDS: BENAZEPRIL HCL 5 MG TABLET GT SCH (21:09)
[2018-09-20] MEDS: IPRATROPIUM NEB FS 0.5 MG/2.5 ML AMPUL.NEB NEB SCH ×4 (00:59→19:28)
[2018-09-20] MEDS: CHLORHEXIDINE GLUCONATE 15 ML UDC MM SCH ×2 (05:11→17:04)
[2018-09-20 07:40] VITALS: BP 137/78
[2018-09-20] MEDS: CHOLECALCIFEROL (VITAMIN D 3) 400 UNIT TABLET GT SCH ×2 (08:15→21:11)
[2018-09-20] MEDS: VITS A AND D/WHITE PET/LANOLIN 5 GM PACKET TP SCH ×4 (08:15→21:11)
[2018-09-20] MEDS: POTASSIUM CHLORIDE GT SCH (08:15)
[2018-09-20] MEDS: RIFAXIMIN 550 MG TABLET GT SCH ×2 (08:15→17:04)
[2018-09-20] MEDS: Z GUARD REMEDY 4 OZ OINT TP SCH ×2 (08:15→21:11)
[2018-09-20] MEDS: FINASTERIDE (5 MG) 5 MG TABLET GT SCH (08:15)
[2018-09-20] MEDS: BIOTIN 5000 MCG GT SCH (08:15)
[2018-09-20] MEDS: HYDROGEN PEROXIDE 480 ML BOTTLE TP SCH ×2 (08:15→21:11)
[2018-09-20] MEDS: ASPIRIN 81 MG TAB.CHEW GT SCH (08:15)
[2018-09-20] MEDS: DICLOFENAC TOPICAL 100 GM GEL..GM. TP SCH ×2 (08:16→17:04)
--- NOTE | 2018-09-20 09:00 | NUR ---
Seen and examined by Dr. Mejia, no new order given. Cont. on ATB treatment for Bronchitis, no adverse reaction noted. Afebrile. Will continue to monitor.
[2018-09-20] MEDS: PRUNE JUICE GT SCH (11:17)
[2018-09-20] MEDS: [UNRECOGNIZED DRUG - OTHER] TP SCH ×2 (13:12→17:04)
[2018-09-20] MEDS: AZITHROMYCIN 250 MG TABLET GT SCH (17:04)
[2018-09-20 20:21] VITALS: BP 130/76
[2018-09-20] MEDS: LORATADINE 10 MG TABLET GT SCH (21:11)
[2018-09-20] MEDS: LATANOPROST EYE DROP 0.005% 2.5 ML BOTTLE EACHEYE SCH (21:11)
[2018-09-20] MEDS: BENAZEPRIL HCL 5 MG TABLET GT SCH (21:12)
[2018-09-20] MEDS: PRAVASTATIN SODIUM 20 MG TABLET GT SCH (21:12)
[2018-09-21] MEDS: HYDROCODONE/APAP 7.5/325MG 1 EACH TABLET GT PRN ×2 (00:45→07:50)
[2018-09-21] MEDS: IPRATROPIUM NEB FS 0.5 MG/2.5 ML AMPUL.NEB NEB SCH ×4 (01:34→20:08)
[2018-09-21] MEDS: JEVITY 1.2 CAL 1,000 ML BOTTLE GT PRN (03:26)
[2018-09-21] MEDS: CHLORHEXIDINE GLUCONATE 15 ML UDC MM SCH ×2 (05:46→17:17)
[2018-09-21 07:32] VITALS: BP 125/68
[2018-09-21] MEDS: HYDROGEN PEROXIDE 480 ML BOTTLE TP SCH ×2 (09:00→21:17)
[2018-09-21] MEDS: VITS A AND D/WHITE PET/LANOLIN 5 GM PACKET TP SCH ×4 (09:00→21:17)
[2018-09-21] MEDS: CHOLECALCIFEROL (VITAMIN D 3) 400 UNIT TABLET GT SCH ×2 (09:00→21:17)
[2018-09-21] MEDS: DICLOFENAC TOPICAL 100 GM GEL..GM. TP SCH ×2 (09:00→17:17)
[2018-09-21] MEDS: FINASTERIDE (5 MG) 5 MG TABLET GT SCH (09:00)
[2018-09-21] MEDS: BIOTIN 5000 MCG GT SCH (09:00)
[2018-09-21] MEDS: POTASSIUM CHLORIDE GT SCH (09:00)
[2018-09-21] MEDS: Z GUARD REMEDY 4 OZ OINT TP SCH ×2 (09:00→21:17)
[2018-09-21] MEDS: RIFAXIMIN 550 MG TABLET GT SCH ×2 (09:00→17:17)
--- NOTE | 2018-09-21 10:23 | NUR ---
Patient's asked SW for assistance in contacting Medical to get information about patient getting a new wheelchair. showed SW the director of mechanical engineering problems the wheelchair has ( it is not very stable, and has no foot rest). SW will follow up with respective Medicare or Medical.
[2018-09-21] MEDS: PRUNE JUICE GT SCH (11:00)
[2018-09-21] MEDS: [UNRECOGNIZED DRUG - OTHER] TP SCH ×2 (13:06→17:17)
[2018-09-21] MEDS: AZITHROMYCIN 250 MG TABLET GT SCH (17:17)
--- NOTE | 2018-09-21 20:18 | NUR ---
RCVD TRACH PT ON ROOM AIR, PLACED PT BACK ON COOL AEROSOL. AMBU BAG AND BACK UP TRACH @ BEDSIDE. Q6 BREATHING TX GIVEN PER MD ORDERS , NO ADVERSE REACTION NOTED. SX DONE PRN. TRACH SECURED AND PATENT. NO RESP DISTRESS NOTED AT THIS TIME. WILL CONTINUE TO MONITOR PT.
[2018-09-21 20:22] VITALS: BP 130/83
[2018-09-21] MEDS: LATANOPROST EYE DROP 0.005% 2.5 ML BOTTLE EACHEYE SCH (21:17)
[2018-09-21] MEDS: LORATADINE 10 MG TABLET GT SCH (21:17)
[2018-09-21] MEDS: PRAVASTATIN SODIUM 20 MG TABLET GT SCH (21:18)
[2018-09-21] MEDS: BENAZEPRIL HCL 5 MG TABLET GT SCH (21:18)
[2018-09-22] MEDS: IPRATROPIUM NEB FS 0.5 MG/2.5 ML AMPUL.NEB NEB SCH ×4 (01:36→19:50)
[2018-09-22] MEDS: CHLORHEXIDINE GLUCONATE 15 ML UDC MM SCH ×2 (05:33→17:12)
[2018-09-22 07:21] VITALS: BP 148/74
[2018-09-22] MEDS: Z GUARD REMEDY 4 OZ OINT TP SCH ×2 (08:42→20:44)
[2018-09-22] MEDS: RIFAXIMIN 550 MG TABLET GT SCH ×2 (08:42→17:12)
[2018-09-22] MEDS: BIOTIN 5000 MCG GT SCH (08:42)
[2018-09-22] MEDS: POTASSIUM CHLORIDE GT SCH (08:42)
[2018-09-22] MEDS: HYDROGEN PEROXIDE 480 ML BOTTLE TP SCH ×2 (08:42→20:44)
[2018-09-22] MEDS: FINASTERIDE (5 MG) 5 MG TABLET GT SCH (08:42)
[2018-09-22] MEDS: ASPIRIN 81 MG TAB.CHEW GT SCH (08:42)
[2018-09-22] MEDS: CHOLECALCIFEROL (VITAMIN D 3) 400 UNIT TABLET GT SCH ×2 (08:42→20:44)
[2018-09-22] MEDS: VITS A AND D/WHITE PET/LANOLIN 5 GM PACKET TP SCH ×4 (08:43→20:44)
[2018-09-22] MEDS: DICLOFENAC TOPICAL 100 GM GEL..GM. TP SCH ×2 (08:43→17:12)
[2018-09-22] MEDS: PRUNE JUICE GT SCH (11:00)
[2018-09-22] MEDS: [UNRECOGNIZED DRUG - OTHER] TP SCH ×2 (13:00→18:23)
[2018-09-22 20:23] VITALS: BP 118/69
[2018-09-22] MEDS: LATANOPROST EYE DROP 0.005% 2.5 ML BOTTLE EACHEYE SCH (21:10)
[2018-09-22] MEDS: PRAVASTATIN SODIUM 20 MG TABLET GT SCH (21:10)
[2018-09-22] MEDS: BENAZEPRIL HCL 5 MG TABLET GT SCH (21:10)
[2018-09-22] MEDS: LORATADINE 10 MG TABLET GT SCH (21:10)
--- NOTE | 2018-09-22 21:30 | NUR ---
RT NOTE RECEIVED PATIENT ON ROOM AIR.PLACED PATIENT ON 28% COOL AEROSOL PER MD ORDER. HHN INLINE TREATMENT WAS GIVEN, NO ADVERSE REACTION NOTED. AMBUBAG AND SPARE TRACH TRACH AT BEDSIDE. NO RESPIRATORY DISTRESS NOTED AT THIS TIME. WILL CONTINUE TO MONITOR PATIENT. Addendum: 09/22/18 at 2135 by LUANN LAFLEUR RT Amended: Links added.
[2018-09-23] MEDS: IPRATROPIUM NEB FS 0.5 MG/2.5 ML AMPUL.NEB NEB SCH ×4 (01:29→19:24)
[2018-09-23] MEDS: JEVITY 1.2 CAL 1,000 ML BOTTLE GT PRN ×2 (06:17→21:00)
[2018-09-23] MEDS: SIMETHICONE SUSP 40 MG/0.6 ML BOTTLE GT PRN (06:17)
[2018-09-23] MEDS: CHLORHEXIDINE GLUCONATE 15 ML UDC MM SCH ×2 (06:17→18:13)
--- NOTE | 2018-09-23 08:18 | NUR ---
Seen and examined by Dr. Edwards, NNO given.
[2018-09-23] MEDS: FINASTERIDE (5 MG) 5 MG TABLET GT SCH (09:07)
[2018-09-23] MEDS: POTASSIUM CHLORIDE GT SCH (09:07)
[2018-09-23] MEDS: CHOLECALCIFEROL (VITAMIN D 3) 400 UNIT TABLET GT SCH ×2 (09:07→21:00)
[2018-09-23] MEDS: BIOTIN 5000 MCG GT SCH (09:07)
[2018-09-23] MEDS: Z GUARD REMEDY 4 OZ OINT TP SCH ×2 (09:07→21:00)
[2018-09-23] MEDS: HYDROGEN PEROXIDE 480 ML BOTTLE TP SCH ×2 (09:07→21:00)
[2018-09-23] MEDS: RIFAXIMIN 550 MG TABLET GT SCH ×2 (09:07→16:45)
[2018-09-23] MEDS: VITS A AND D/WHITE PET/LANOLIN 5 GM PACKET TP SCH ×4 (09:08→21:00)
[2018-09-23] MEDS: DICLOFENAC TOPICAL 100 GM GEL..GM. TP SCH ×2 (09:08→16:45)
[2018-09-23] MEDS: PRUNE JUICE GT SCH (11:00)
[2018-09-23] MEDS: [UNRECOGNIZED DRUG - OTHER] TP SCH ×2 (13:32→18:14)
--- NOTE | 2018-09-23 14:40 | NUR ---
INTERDISCIPLINARY PLAN OF CARE CONFERENCE was held today. Resident's attended today's IDT meeting. Dr. Mejia and the interdisciplinary team discussed the current plan of care in detail. Current orders as well as treatments and medications were reviewed. Resident's verbalized that she wants him to lose some weight due to 7 lbs weigh gain, but per mobile phone salesperson she will wait for the monthly weight next week and will evaluate feeding. Pharmacy also recommending BMP, Ammonia level and to clarify Xifaxan duration. Will inform Dr. Edwards of pharmacy recommendations.
[2018-09-23 14:49] VITALS: BP 112/48
[2018-09-23 20:03] VITALS: BP 143/69
[2018-09-23] MEDS: HYDROCODONE/APAP 7.5/325MG 1 EACH TABLET GT PRN (20:35)
[2018-09-23] MEDS: BENAZEPRIL HCL 5 MG TABLET GT SCH (21:00)
[2018-09-23] MEDS: LORATADINE 10 MG TABLET GT SCH (21:00)
[2018-09-23] MEDS: PRAVASTATIN SODIUM 20 MG TABLET GT SCH (21:00)
[2018-09-23] MEDS: LATANOPROST EYE DROP 0.005% 2.5 ML BOTTLE EACHEYE SCH (21:00)
[2018-09-24] MEDS: IPRATROPIUM NEB FS 0.5 MG/2.5 ML AMPUL.NEB NEB SCH ×4 (01:08→19:28)
[2018-09-24] MEDS: CHLORHEXIDINE GLUCONATE 15 ML UDC MM SCH ×2 (06:00→17:45)
[2018-09-24 07:26] VITALS: BP 133/74
[2018-09-24] MEDS: VITS A AND D/WHITE PET/LANOLIN 5 GM PACKET TP SCH ×4 (09:00→20:57)
[2018-09-24] MEDS: Z GUARD REMEDY 4 OZ OINT TP SCH ×2 (09:00→20:57)
[2018-09-24] MEDS: HYDROGEN PEROXIDE 480 ML BOTTLE TP SCH ×2 (09:00→20:57)
[2018-09-24] MEDS: DICLOFENAC TOPICAL 100 GM GEL..GM. TP SCH ×2 (09:00→17:45)
[2018-09-24] MEDS: ASPIRIN 81 MG TAB.CHEW GT SCH (09:10)
[2018-09-24] MEDS: POTASSIUM CHLORIDE GT SCH (09:13)
[2018-09-24] MEDS: FINASTERIDE (5 MG) 5 MG TABLET GT SCH (09:14)
[2018-09-24] MEDS: RIFAXIMIN 550 MG TABLET GT SCH ×2 (09:14→17:45)
[2018-09-24] MEDS: BIOTIN 5000 MCG GT SCH (09:14)
[2018-09-24] MEDS: CHOLECALCIFEROL (VITAMIN D 3) 400 UNIT TABLET GT SCH ×2 (09:15→20:57)
--- NOTE | 2018-09-24 09:19 | NUR ---
INTERDISCIPLINARY PLAN OF CARE CONFERENCE was held on 09/23/18. Resident's attended today's IDT meeting. Dr. Mejia and the interdisciplinary team discussed the current plan of care in detail. Current orders as well as treatments and medications were reviewed. Resident's verbalized that she wants him to lose some weight due to 7 lbs weigh gain, but per knot borer she will wait for the monthly weight next week and will evaluate feeding. expressed to the team that the funginail topic cream was not been applied to patient's toe nails daily as recommended by the doctor.
[2018-09-24] MEDS: PRUNE JUICE GT SCH (11:00)
[2018-09-24] MEDS: ACETAMINOPHEN 650 MG/20 ML UDC- SA PATIENTS-PAIN ONLY GT PRN (12:00)
[2018-09-24] MEDS: [UNRECOGNIZED DRUG - OTHER] TP SCH ×2 (13:11→17:45)
[2018-09-24] MEDS: JEVITY 1.2 CAL 1,000 ML BOTTLE GT PRN (14:35)
[2018-09-24 19:57] VITALS: BP 139/84
[2018-09-24] MEDS: LORATADINE 10 MG TABLET GT SCH (21:09)
[2018-09-24] MEDS: LATANOPROST EYE DROP 0.005% 2.5 ML BOTTLE EACHEYE SCH (21:09)
[2018-09-24] MEDS: PRAVASTATIN SODIUM 20 MG TABLET GT SCH (21:09)
[2018-09-24] MEDS: BENAZEPRIL HCL 5 MG TABLET GT SCH (21:09)
[2018-09-24] MEDS: HYDROCODONE/APAP 7.5/325MG 1 EACH TABLET GT PRN (22:57)
[2018-09-25] MEDS: IPRATROPIUM NEB FS 0.5 MG/2.5 ML AMPUL.NEB NEB SCH ×4 (01:31→19:38)
--- NOTE | 2018-09-25 01:49 | NUR ---
RT NOTE PT FOUND ON 3L, PLACED BACK ON 5L. CHARGE NURSE NOTIFIED.
[2018-09-25] MEDS: CHLORHEXIDINE GLUCONATE 15 ML UDC MM SCH ×2 (05:39→18:27)
[2018-09-25 07:42] VITALS: BP 131/82
[2018-09-25] MEDS: POTASSIUM CHLORIDE GT SCH (08:32)
[2018-09-25] MEDS: FINASTERIDE (5 MG) 5 MG TABLET GT SCH (08:33)
[2018-09-25] MEDS: BIOTIN 5000 MCG GT SCH (08:33)
[2018-09-25] MEDS: RIFAXIMIN 550 MG TABLET GT SCH ×2 (08:33→17:04)
[2018-09-25] MEDS: CHOLECALCIFEROL (VITAMIN D 3) 400 UNIT TABLET GT SCH ×2 (08:35→21:46)
[2018-09-25] MEDS: Z GUARD REMEDY 4 OZ OINT TP SCH ×2 (09:00→21:46)
[2018-09-25] MEDS: DICLOFENAC TOPICAL 100 GM GEL..GM. TP SCH ×2 (09:00→17:04)
[2018-09-25] MEDS: VITS A AND D/WHITE PET/LANOLIN 5 GM PACKET TP SCH ×4 (09:00→21:47)
[2018-09-25] MEDS: HYDROGEN PEROXIDE 480 ML BOTTLE TP SCH ×2 (09:00→21:46)
[2018-09-25] MEDS: HYDROCODONE/APAP 7.5/325MG 1 EACH TABLET GT PRN (10:10)
[2018-09-25] MEDS: PRUNE JUICE GT SCH (11:00)
[2018-09-25] MEDS: [UNRECOGNIZED DRUG - OTHER] TP SCH ×2 (13:00→18:27)
--- NOTE | 2018-09-25 14:30 | NUR ---
Seen and examined by Dr. Edwards with new orders. Okay to carry out pharmacy recommendation to do BMP and Ammonia level. Xifaxan will be taken indefinite, no stop date for now.
[2018-09-25] MEDS: MAGNESIUM HYDROXIDE 30 ML UDC GT PRN (17:00)
[2018-09-25 19:41] VITALS: BP 146/74
[2018-09-25 20:00] VITALS: BP 146/74
--- NOTE | 2018-09-25 21:33 | NUR ---
RT NOTE RECEIVED TRACH PATIENT ON ROOM AIR. PLACED PATIENT ON COOL AEROSOL PER MD ORDER. HHN INLINE TREATMENT WAS GIVEN, NO ADVERSE REACTION NOTED. PRN SUCTION WAS DONE. TRACH TUBE PATENT AND SECURED. NO RESPIRATORY DISTRESS NOTED AT THIS TIME. WILL CONTINUE TO MONITOR PATIENT. Addendum: 09/25/18 at 2137 by LUANN LAFLEUR RT Amended: Links added.
[2018-09-25] MEDS: LATANOPROST EYE DROP 0.005% 2.5 ML BOTTLE EACHEYE SCH (21:47)
[2018-09-25] MEDS: BENAZEPRIL HCL 5 MG TABLET GT SCH (21:50)
[2018-09-25] MEDS: LORATADINE 10 MG TABLET GT SCH (21:50)
[2018-09-25] MEDS: PRAVASTATIN SODIUM 20 MG TABLET GT SCH (21:50)
[2018-09-26] MEDS: IPRATROPIUM NEB FS 0.5 MG/2.5 ML AMPUL.NEB NEB SCH ×4 (01:39→20:11)
[2018-09-26] MEDS: JEVITY 1.2 CAL 1,000 ML BOTTLE GT PRN ×2 (01:42→17:59)
[2018-09-26] MEDS: CHLORHEXIDINE GLUCONATE 15 ML UDC MM SCH ×2 (05:05→17:59)
[2018-09-26 07:28] LABS: SERUM AMMONIA 43 umol/L (11-32)
[2018-09-26 07:42] LABS: CALCIUM, SERUM 8.5 mg/dL (8.5-10.1); CARBON DIOXIDE 29 mmol/L (21-32); CHLORIDE 104 mmol/L (98-107); CREATININE 0.7 mg/dL (0.6-1.3); GLUCOSE 114 mg/dL (74-106); SODIUM SERUM 139 mmol/L (136-145); UREA NITROGEN, BLOOD 19 mg/dL (7-18)
[2018-09-26] MEDS: ASPIRIN 81 MG TAB.CHEW GT SCH (08:24)
[2018-09-26] MEDS: POTASSIUM CHLORIDE GT SCH (08:24)
[2018-09-26] MEDS: BIOTIN 5000 MCG GT SCH (08:24)
[2018-09-26] MEDS: RIFAXIMIN 550 MG TABLET GT SCH ×2 (08:25→16:34)
[2018-09-26] MEDS: CHOLECALCIFEROL (VITAMIN D 3) 400 UNIT TABLET GT SCH ×2 (08:25→21:56)
[2018-09-26] MEDS: FINASTERIDE (5 MG) 5 MG TABLET GT SCH (08:25)
[2018-09-26] MEDS: ACETAMINOPHEN 650 MG/20 ML UDC- SA PATIENTS-PAIN ONLY GT PRN (08:26)
[2018-09-26] MEDS: VITS A AND D/WHITE PET/LANOLIN 5 GM PACKET TP SCH ×4 (09:00→21:56)
[2018-09-26] MEDS: HYDROGEN PEROXIDE 480 ML BOTTLE TP SCH ×2 (09:00→21:56)
[2018-09-26] MEDS: Z GUARD REMEDY 4 OZ OINT TP SCH ×2 (09:00→21:56)
[2018-09-26] MEDS: DICLOFENAC TOPICAL 100 GM GEL..GM. TP SCH ×2 (09:00→16:34)
[2018-09-26 11:02] VITALS: BP 143/83
[2018-09-26] MEDS: PRUNE JUICE GT SCH (11:11)
[2018-09-26] MEDS: [UNRECOGNIZED DRUG - OTHER] TP SCH ×2 (13:14→17:59)
[2018-09-26 20:04] VITALS: BP 145/84
[2018-09-26] MEDS: LATANOPROST EYE DROP 0.005% 2.5 ML BOTTLE EACHEYE SCH (21:57)
[2018-09-26] MEDS: PRAVASTATIN SODIUM 20 MG TABLET GT SCH (21:57)
[2018-09-26] MEDS: BENAZEPRIL HCL 5 MG TABLET GT SCH (21:57)
[2018-09-26] MEDS: LORATADINE 10 MG TABLET GT SCH (21:57)
[2018-09-27] MEDS: IPRATROPIUM NEB FS 0.5 MG/2.5 ML AMPUL.NEB NEB SCH ×4 (01:32→20:22)
[2018-09-27] MEDS: CHLORHEXIDINE GLUCONATE 15 ML UDC MM SCH ×2 (06:06→17:37)
[2018-09-27] MEDS: JEVITY 1.2 CAL 1,000 ML BOTTLE GT PRN ×2 (06:06→21:12)
[2018-09-27 07:39] VITALS: BP 152/73
--- NOTE | 2018-09-27 08:30 | NUR ---
Seen and examined by Dr. Edwards, no new order given.
[2018-09-27] MEDS: POTASSIUM CHLORIDE GT SCH (09:23)
[2018-09-27] MEDS: BIOTIN 5000 MCG GT SCH (09:23)
[2018-09-27] MEDS: HYDROGEN PEROXIDE 480 ML BOTTLE TP SCH ×2 (09:24→21:11)
[2018-09-27] MEDS: FINASTERIDE (5 MG) 5 MG TABLET GT SCH (09:24)
[2018-09-27] MEDS: RIFAXIMIN 550 MG TABLET GT SCH ×2 (09:24→17:36)
[2018-09-27] MEDS: DICLOFENAC TOPICAL 100 GM GEL..GM. TP SCH ×2 (09:24→17:36)
[2018-09-27] MEDS: CHOLECALCIFEROL (VITAMIN D 3) 400 UNIT TABLET GT SCH ×2 (09:24→21:11)
[2018-09-27] MEDS: VITS A AND D/WHITE PET/LANOLIN 5 GM PACKET TP SCH ×4 (09:24→21:11)
[2018-09-27] MEDS: Z GUARD REMEDY 4 OZ OINT TP SCH ×2 (09:24→21:11)
--- NOTE | 2018-09-27 09:30 | NUR ---
Seen and examined by Dr. Mejia, no new order given.
[2018-09-27] MEDS: PRUNE JUICE GT SCH (11:00)
[2018-09-27] MEDS: HYDROCODONE/APAP 7.5/325MG 1 EACH TABLET GT PRN ×2 (12:18→21:19)
[2018-09-27] MEDS: [UNRECOGNIZED DRUG - OTHER] TP SCH ×2 (12:18→17:37)
[2018-09-27 20:31] VITALS: BP 133/75
[2018-09-27] MEDS: PRAVASTATIN SODIUM 20 MG TABLET GT SCH (21:12)
[2018-09-27] MEDS: LORATADINE 10 MG TABLET GT SCH (21:12)
[2018-09-27] MEDS: BENAZEPRIL HCL 5 MG TABLET GT SCH (21:12)
[2018-09-27] MEDS: LATANOPROST EYE DROP 0.005% 2.5 ML BOTTLE EACHEYE SCH (21:12)
[2018-09-28] MEDS: IPRATROPIUM NEB FS 0.5 MG/2.5 ML AMPUL.NEB NEB SCH ×4 (02:00→19:54)
[2018-09-28] MEDS: CHLORHEXIDINE GLUCONATE 15 ML UDC MM SCH ×2 (06:13→16:44)
[2018-09-28 08:00] VITALS: BP 144/82
[2018-09-28] MEDS: Z GUARD REMEDY 4 OZ OINT TP SCH ×2 (08:47→21:43)
[2018-09-28] MEDS: HYDROGEN PEROXIDE 480 ML BOTTLE TP SCH ×2 (08:47→21:42)
[2018-09-28] MEDS: ASPIRIN 81 MG TAB.CHEW GT SCH (08:47)
[2018-09-28] MEDS: POTASSIUM CHLORIDE GT SCH (08:47)
[2018-09-28] MEDS: CHOLECALCIFEROL (VITAMIN D 3) 400 UNIT TABLET GT SCH ×2 (08:47→21:42)
[2018-09-28] MEDS: BIOTIN 5000 MCG GT SCH (08:47)
[2018-09-28] MEDS: RIFAXIMIN 550 MG TABLET GT SCH ×2 (08:47→16:44)
[2018-09-28] MEDS: FINASTERIDE (5 MG) 5 MG TABLET GT SCH (08:47)
[2018-09-28] MEDS: DICLOFENAC TOPICAL 100 GM GEL..GM. TP SCH ×2 (08:48→16:44)
[2018-09-28] MEDS: VITS A AND D/WHITE PET/LANOLIN 5 GM PACKET TP SCH ×4 (08:48→21:43)
--- NOTE | 2018-09-28 08:50 | NUR ---
SW called patient's Medicare and Medical to gather information about patient's illegibility to receive a new wheel chair. SKIP was informed that Medicare will not cover wheel chairs of patients in subacute level of care. When talking to Medical SW was informed that patient need to submit claim to Medicare first and if denied, patient should forward rejection letter to Medical with new request and Medical would decide if patient is eligible to a new wheel chair.
[2018-09-28] MEDS: PRUNE JUICE GT SCH (11:00)
[2018-09-28] MEDS: [UNRECOGNIZED DRUG - OTHER] TP SCH ×2 (13:00→18:45)
[2018-09-28] MEDS: SUMATRIPTAN SUCCINATE 25 MG TABLET GT PRN (16:44)
[2018-09-28] MEDS: JEVITY 1.2 CAL 1,000 ML BOTTLE GT PRN (16:44)
[2018-09-28] MEDS: MAGNESIUM HYDROXIDE 30 ML UDC GT PRN (16:44)
[2018-09-28] MEDS: BISACODYL SUPP (10 MG) 10 MG/SUPP.RECT SUPP.RECT RC PRN (18:46)
[2018-09-28 20:36] VITALS: BP 137/84
[2018-09-28] MEDS: PRAVASTATIN SODIUM 20 MG TABLET GT SCH (21:43)
[2018-09-28] MEDS: LORATADINE 10 MG TABLET GT SCH (21:43)
[2018-09-28] MEDS: LATANOPROST EYE DROP 0.005% 2.5 ML BOTTLE EACHEYE SCH (21:43)
[2018-09-28] MEDS: BENAZEPRIL HCL 5 MG TABLET GT SCH (21:43)
[2018-09-29] MEDS: IPRATROPIUM NEB FS 0.5 MG/2.5 ML AMPUL.NEB NEB SCH ×4 (01:39→19:56)
[2018-09-29] MEDS: CHLORHEXIDINE GLUCONATE 15 ML UDC MM SCH ×2 (05:35→17:50)
[2018-09-29] MEDS: JEVITY 1.2 CAL 1,000 ML BOTTLE GT PRN (06:05)
[2018-09-29 07:46] VITALS: BP 121/73
[2018-09-29] MEDS: CHOLECALCIFEROL (VITAMIN D 3) 400 UNIT TABLET GT SCH ×2 (08:23→21:09)
[2018-09-29] MEDS: POTASSIUM CHLORIDE GT SCH (08:23)
[2018-09-29] MEDS: VITS A AND D/WHITE PET/LANOLIN 5 GM PACKET TP SCH ×4 (08:23→21:10)
[2018-09-29] MEDS: BIOTIN 5000 MCG GT SCH (08:23)
[2018-09-29] MEDS: RIFAXIMIN 550 MG TABLET GT SCH ×2 (08:23→17:49)
[2018-09-29] MEDS: DICLOFENAC TOPICAL 100 GM GEL..GM. TP SCH ×2 (08:23→17:50)
[2018-09-29] MEDS: Z GUARD REMEDY 4 OZ OINT TP SCH ×2 (08:23→21:10)
[2018-09-29] MEDS: FINASTERIDE (5 MG) 5 MG TABLET GT SCH (08:23)
[2018-09-29] MEDS: HYDROGEN PEROXIDE 480 ML BOTTLE TP SCH ×2 (08:23→21:10)
[2018-09-29] MEDS: PRUNE JUICE GT SCH (11:00)
[2018-09-29] MEDS: [UNRECOGNIZED DRUG - OTHER] TP SCH ×2 (13:00→17:50)
--- NOTE | 2018-09-29 20:00 | NUR ---
Seen by ISABELA VORA.
[2018-09-29 20:22] VITALS: BP 126/78
[2018-09-29] MEDS: BENAZEPRIL HCL 5 MG TABLET GT SCH (21:10)
[2018-09-29] MEDS: PRAVASTATIN SODIUM 20 MG TABLET GT SCH (21:10)
[2018-09-29] MEDS: LORATADINE 10 MG TABLET GT SCH (21:10)
[2018-09-29] MEDS: LATANOPROST EYE DROP 0.005% 2.5 ML BOTTLE EACHEYE SCH (21:10)
[2018-09-30] MEDS: IPRATROPIUM NEB FS 0.5 MG/2.5 ML AMPUL.NEB NEB SCH ×4 (01:46→19:45)
[2018-09-30] MEDS: CHLORHEXIDINE GLUCONATE 15 ML UDC MM SCH ×2 (06:17→18:22)
[2018-09-30 07:43] VITALS: BP 143/85
[2018-09-30 07:44] VITALS: BP 93/56
--- NOTE | 2018-09-30 08:13 | NUR ---
Seen and examined by ISABELA Pichardo, no new order given.
[2018-09-30] MEDS: ASPIRIN 81 MG TAB.CHEW GT SCH (08:48)
[2018-09-30] MEDS: POTASSIUM CHLORIDE GT SCH (08:49)
[2018-09-30] MEDS: FINASTERIDE (5 MG) 5 MG TABLET GT SCH (08:49)
[2018-09-30] MEDS: RIFAXIMIN 550 MG TABLET GT SCH ×2 (08:49→17:00)
[2018-09-30] MEDS: HYDROGEN PEROXIDE 480 ML BOTTLE TP SCH ×2 (08:49→21:03)
[2018-09-30] MEDS: CHOLECALCIFEROL (VITAMIN D 3) 400 UNIT TABLET GT SCH ×2 (08:49→21:03)
[2018-09-30] MEDS: BIOTIN 5000 MCG GT SCH (08:49)
[2018-09-30] MEDS: Z GUARD REMEDY 4 OZ OINT TP SCH ×2 (08:49→21:03)
[2018-09-30] MEDS: DICLOFENAC TOPICAL 100 GM GEL..GM. TP SCH ×2 (08:49→17:00)
[2018-09-30] MEDS: VITS A AND D/WHITE PET/LANOLIN 5 GM PACKET TP SCH ×4 (08:49→21:03)
[2018-09-30] MEDS: PRUNE JUICE GT SCH (11:00)
[2018-09-30] MEDS: [UNRECOGNIZED DRUG - OTHER] TP SCH ×2 (13:00→18:23)
[2018-09-30 20:23] VITALS: BP 145/93
[2018-09-30] MEDS: LATANOPROST EYE DROP 0.005% 2.5 ML BOTTLE EACHEYE SCH (21:04)
[2018-09-30] MEDS: PRAVASTATIN SODIUM 20 MG TABLET GT SCH (21:04)
[2018-09-30] MEDS: LORATADINE 10 MG TABLET GT SCH (21:04)
[2018-09-30] MEDS: BENAZEPRIL HCL 5 MG TABLET GT SCH (21:04)
[2018-10-01] MEDS: JEVITY 1.2 CAL 1,000 ML BOTTLE GT PRN ×2 (01:30→21:05)
[2018-10-01] MEDS: IPRATROPIUM NEB FS 0.5 MG/2.5 ML AMPUL.NEB NEB SCH ×4 (01:49→19:28)
[2018-10-01] MEDS: CHLORHEXIDINE GLUCONATE 15 ML UDC MM SCH ×2 (05:40→18:13)
[2018-10-01 07:46] VITALS: BP 145/93
[2018-10-01] MEDS: FINASTERIDE (5 MG) 5 MG TABLET GT SCH (08:30)
[2018-10-01] MEDS: BIOTIN 5000 MCG GT SCH (08:30)
[2018-10-01] MEDS: RIFAXIMIN 550 MG TABLET GT SCH ×2 (08:30→16:53)
[2018-10-01] MEDS: POTASSIUM CHLORIDE GT SCH (08:30)
[2018-10-01] MEDS: CHOLECALCIFEROL (VITAMIN D 3) 400 UNIT TABLET GT SCH ×2 (08:32→21:03)
[2018-10-01] MEDS: DICLOFENAC TOPICAL 100 GM GEL..GM. TP SCH ×2 (09:00→16:53)
[2018-10-01] MEDS: Z GUARD REMEDY 4 OZ OINT TP SCH ×2 (09:00→21:03)
[2018-10-01] MEDS: VITS A AND D/WHITE PET/LANOLIN 5 GM PACKET TP SCH ×4 (09:00→21:03)
[2018-10-01] MEDS: HYDROGEN PEROXIDE 480 ML BOTTLE TP SCH ×2 (09:00→21:03)
[2018-10-01] MEDS: PRUNE JUICE GT SCH (11:00)
--- NOTE | 2018-10-01 13:00 | NUR ---
Patients' at bedside, she verbalized concerned for noticing small skin tear on his husbands' right forearm. assessed patients' skin, noted small skin tear to left forearm, measured 2 cm x 1 cm, red in color with discoloration to surrounding area. No bleeding, no swelling noted. Followed skin tear protocol order in [facility] tech. Noted and carried out. Patients' stated "thank you" after providing tx. Patient closely monitored. Patient calm at this time, no episodes of restlessness and agitation since morning. Safety precautions observed at all times.
[2018-10-01] MEDS: [UNRECOGNIZED DRUG - OTHER] TP SCH ×2 (13:11→18:13)
[2018-10-01 21:01] VITALS: BP 141/77
[2018-10-01] MEDS: VITAMINS A AND D 56.7 GM TUBE TP SCH (21:03)
[2018-10-01] MEDS: PRAVASTATIN SODIUM 20 MG TABLET GT SCH (21:04)
[2018-10-01] MEDS: LATANOPROST EYE DROP 0.005% 2.5 ML BOTTLE EACHEYE SCH (21:04)
[2018-10-01] MEDS: LORATADINE 10 MG TABLET GT SCH (21:04)
[2018-10-01] MEDS: BENAZEPRIL HCL 5 MG TABLET GT SCH (21:04)
[2018-10-01] MEDS: SUMATRIPTAN SUCCINATE 25 MG TABLET GT PRN (21:05)
--- NOTE | 2018-10-01 23:21 | NUR ---
PATIENT RECEIVED ON 28% AEROSOL T-TUBE, TOLERATING WITH NO DISTRESS. SUCTIONED FOR MINIMAL, THICK, YELLOW SECRETIONS. GIVEN IN-LINE TREATMENTS WITH NO ADVERSE REACTIONS. AMBU BAG AT BEDSIDE. IN-LINE TUBING, TRACH MASK, DRAINAGE BAG CHANGED. Addendum: 10/01/18 at 2322 by MINOO CORRIGAN RT Amended: Links added.
[2018-10-02] MEDS: IPRATROPIUM NEB FS 0.5 MG/2.5 ML AMPUL.NEB NEB SCH ×4 (00:58→19:48)
[2018-10-02] MEDS: CHLORHEXIDINE GLUCONATE 15 ML UDC MM SCH ×2 (06:00→18:35)
[2018-10-02] MEDS: CHOLECALCIFEROL (VITAMIN D 3) 400 UNIT TABLET GT SCH ×2 (08:31→20:45)
[2018-10-02] MEDS: FINASTERIDE (5 MG) 5 MG TABLET GT SCH (08:31)
[2018-10-02] MEDS: RIFAXIMIN 550 MG TABLET GT SCH ×2 (08:31→16:42)
[2018-10-02] MEDS: POTASSIUM CHLORIDE GT SCH (08:31)
[2018-10-02] MEDS: BIOTIN 5000 MCG GT SCH (08:31)
[2018-10-02] MEDS: ASPIRIN 81 MG TAB.CHEW GT SCH (08:31)
[2018-10-02 08:58] VITALS: BP 106/57
[2018-10-02] MEDS: Z GUARD REMEDY 4 OZ OINT TP SCH ×2 (09:00→20:46)
[2018-10-02] MEDS: HYDROGEN PEROXIDE 480 ML BOTTLE TP SCH ×2 (09:00→20:46)
[2018-10-02] MEDS: VITAMINS A AND D 56.7 GM TUBE TP SCH ×2 (09:00→20:46)
[2018-10-02] MEDS: VITS A AND D/WHITE PET/LANOLIN 5 GM PACKET TP SCH ×4 (09:00→20:46)
[2018-10-02] MEDS: DICLOFENAC TOPICAL 100 GM GEL..GM. TP SCH ×2 (09:00→16:46)
[2018-10-02] MEDS: PRUNE JUICE GT SCH (11:00)
[2018-10-02] MEDS: [UNRECOGNIZED DRUG - OTHER] TP SCH ×2 (12:59→18:35)
[2018-10-02] MEDS: HYDROCODONE/APAP 7.5/325MG 1 EACH TABLET GT PRN ×2 (14:04→22:19)
[2018-10-02] MEDS: JEVITY 1.2 CAL 1,000 ML BOTTLE GT PRN (18:50)
[2018-10-02 20:06] VITALS: BP 131/75
[2018-10-02] MEDS: LATANOPROST EYE DROP 0.005% 2.5 ML BOTTLE EACHEYE SCH (21:42)
[2018-10-02] MEDS: LORATADINE 10 MG TABLET GT SCH (21:42)
[2018-10-02] MEDS: BENAZEPRIL HCL 5 MG TABLET GT SCH (21:42)
[2018-10-02] MEDS: PRAVASTATIN SODIUM 20 MG TABLET GT SCH (21:42)
[2018-10-03] MEDS: IPRATROPIUM NEB FS 0.5 MG/2.5 ML AMPUL.NEB NEB SCH ×4 (01:11→19:55)
[2018-10-03] MEDS: CHLORHEXIDINE GLUCONATE 15 ML UDC MM SCH ×2 (05:50→17:45)
[2018-10-03 07:54] VITALS: BP 126/72
[2018-10-03] MEDS: POTASSIUM CHLORIDE GT SCH (08:55)
[2018-10-03] MEDS: BIOTIN 5000 MCG GT SCH (08:55)
[2018-10-03] MEDS: FINASTERIDE (5 MG) 5 MG TABLET GT SCH (08:56)
[2018-10-03] MEDS: DICLOFENAC TOPICAL 100 GM GEL..GM. TP SCH ×2 (08:56→17:45)
[2018-10-03] MEDS: RIFAXIMIN 550 MG TABLET GT SCH ×2 (08:56→17:45)
[2018-10-03] MEDS: CHOLECALCIFEROL (VITAMIN D 3) 400 UNIT TABLET GT SCH ×2 (08:57→20:59)
[2018-10-03] MEDS: VITS A AND D/WHITE PET/LANOLIN 5 GM PACKET TP SCH ×4 (09:00→21:00)
[2018-10-03] MEDS: Z GUARD REMEDY 4 OZ OINT TP SCH ×2 (09:00→20:59)
[2018-10-03] MEDS: HYDROGEN PEROXIDE 480 ML BOTTLE TP SCH ×2 (09:00→20:59)
[2018-10-03] MEDS: VITAMINS A AND D 56.7 GM TUBE TP SCH ×2 (09:00→21:00)
[2018-10-03] MEDS: PRUNE JUICE GT SCH (11:00)
[2018-10-03] MEDS: [UNRECOGNIZED DRUG - OTHER] TP SCH ×2 (13:00→17:46)
[2018-10-03 21:04] VITALS: BP 143/71
[2018-10-03] MEDS: LORATADINE 10 MG TABLET GT SCH (21:46)
[2018-10-03] MEDS: LATANOPROST EYE DROP 0.005% 2.5 ML BOTTLE EACHEYE SCH (21:46)
[2018-10-03] MEDS: PRAVASTATIN SODIUM 20 MG TABLET GT SCH (21:46)
[2018-10-03] MEDS: BENAZEPRIL HCL 5 MG TABLET GT SCH (21:46)
[2018-10-03] MEDS: JEVITY 1.2 CAL 1,000 ML BOTTLE GT PRN (21:48)
[2018-10-04] MEDS: IPRATROPIUM NEB FS 0.5 MG/2.5 ML AMPUL.NEB NEB SCH ×4 (01:49→20:01)
[2018-10-04] MEDS: CHLORHEXIDINE GLUCONATE 15 ML UDC MM SCH ×2 (06:19→18:00)
[2018-10-04 07:41] VITALS: BP 122/69
[2018-10-04] MEDS: ASPIRIN 81 MG TAB.CHEW GT SCH (08:30)
[2018-10-04] MEDS: Z GUARD REMEDY 4 OZ OINT TP SCH ×2 (09:00→20:52)
[2018-10-04] MEDS: VITAMINS A AND D 56.7 GM TUBE TP SCH ×2 (09:00→20:52)
[2018-10-04] MEDS: CHOLECALCIFEROL (VITAMIN D 3) 400 UNIT TABLET GT SCH ×2 (09:00→20:52)
[2018-10-04] MEDS: HYDROGEN PEROXIDE 480 ML BOTTLE TP SCH ×2 (09:00→20:52)
[2018-10-04] MEDS: RIFAXIMIN 550 MG TABLET GT SCH ×2 (09:00→17:00)
[2018-10-04] MEDS: VITS A AND D/WHITE PET/LANOLIN 5 GM PACKET TP SCH ×4 (09:00→20:52)
[2018-10-04] MEDS: DICLOFENAC TOPICAL 100 GM GEL..GM. TP SCH ×2 (09:00→17:00)
[2018-10-04] MEDS: POTASSIUM CHLORIDE GT SCH (09:00)
[2018-10-04] MEDS: FINASTERIDE (5 MG) 5 MG TABLET GT SCH (09:00)
[2018-10-04] MEDS: BIOTIN 5000 MCG GT SCH (09:00)
[2018-10-04] MEDS: PRUNE JUICE GT SCH (11:00)
[2018-10-04] MEDS: [UNRECOGNIZED DRUG - OTHER] TP SCH ×2 (13:00→18:00)
[2018-10-04] MEDS: JEVITY 1.2 CAL 1,000 ML BOTTLE GT PRN (19:51)
[2018-10-04 19:52] VITALS: BP 147/78
[2018-10-04] MEDS: LORATADINE 10 MG TABLET GT SCH (21:45)
[2018-10-04] MEDS: LATANOPROST EYE DROP 0.005% 2.5 ML BOTTLE EACHEYE SCH (21:45)
[2018-10-04] MEDS: BENAZEPRIL HCL 5 MG TABLET GT SCH (21:46)
[2018-10-04] MEDS: PRAVASTATIN SODIUM 20 MG TABLET GT SCH (21:46)
[2018-10-05] MEDS: IPRATROPIUM NEB FS 0.5 MG/2.5 ML AMPUL.NEB NEB SCH ×4 (00:42→19:42)
[2018-10-05] MEDS: CHLORHEXIDINE GLUCONATE 15 ML UDC MM SCH ×2 (06:18→17:01)
[2018-10-05] MEDS: CHOLECALCIFEROL (VITAMIN D 3) 400 UNIT TABLET GT SCH ×2 (08:32→21:01)
[2018-10-05] MEDS: RIFAXIMIN 550 MG TABLET GT SCH ×2 (08:32→16:53)
[2018-10-05] MEDS: FINASTERIDE (5 MG) 5 MG TABLET GT SCH (08:32)
[2018-10-05] MEDS: BIOTIN 5000 MCG GT SCH (08:32)
[2018-10-05] MEDS: HYDROGEN PEROXIDE 480 ML BOTTLE TP SCH ×2 (08:32→21:01)
[2018-10-05] MEDS: Z GUARD REMEDY 4 OZ OINT TP SCH ×2 (08:32→21:01)
[2018-10-05] MEDS: POTASSIUM CHLORIDE GT SCH (08:32)
[2018-10-05] MEDS: VITS A AND D/WHITE PET/LANOLIN 5 GM PACKET TP SCH ×4 (08:32→21:01)
[2018-10-05] MEDS: DICLOFENAC TOPICAL 100 GM GEL..GM. TP SCH ×2 (08:33→16:53)
[2018-10-05] MEDS: VITAMINS A AND D 56.7 GM TUBE TP SCH ×2 (08:33→21:02)
[2018-10-05 10:17] VITALS: BP 150/85
[2018-10-05] MEDS: PRUNE JUICE GT SCH (11:00)
[2018-10-05] MEDS: [UNRECOGNIZED DRUG - OTHER] TP SCH ×2 (12:32→17:01)
--- NOTE | 2018-10-05 13:12 | NUR ---
SKIP met with patient's for Family support group today. mentioned having some financial difficulties, since she depends on her daughters for help. told SW that she worries about patient constant needs for suction which she believes may have to do with water getting into the tube when patient is bathed. SW will follow up with charge nurse and ask if there is any correlation with patient's coughing and need to be suctioned more often. Patient's thanked SKIP for her support and willingness to help. Addendum: 10/10/18 at 1554 by EDUARDO JACKSON SW spoke to charge nurse Radha to enquire about resident's concerns. Radha told SKIP that the procedure is always to cover the g-track with towels when patient is being bathed (to protect from water getting in the t-tube). The charge nurse said that they will make sure to lift patient's higher. also had prescribed a medication to decrease secretion.
[2018-10-05] MEDS: JEVITY 1.2 CAL 1,000 ML BOTTLE GT PRN (18:59)
[2018-10-05 20:51] VITALS: BP 150/88
[2018-10-05] MEDS: BENAZEPRIL HCL 5 MG TABLET GT SCH (21:02)
[2018-10-05] MEDS: LATANOPROST EYE DROP 0.005% 2.5 ML BOTTLE EACHEYE SCH (21:02)
[2018-10-05] MEDS: PRAVASTATIN SODIUM 20 MG TABLET GT SCH (21:02)
[2018-10-05] MEDS: LORATADINE 10 MG TABLET GT SCH (21:02)
[2018-10-05] MEDS: HYDROCODONE/APAP 7.5/325MG 1 EACH TABLET GT PRN (21:03)
[2018-10-06] MEDS: IPRATROPIUM NEB FS 0.5 MG/2.5 ML AMPUL.NEB NEB SCH ×4 (01:51→19:41)
[2018-10-06] MEDS: CHLORHEXIDINE GLUCONATE 15 ML UDC MM SCH ×2 (05:52→17:06)
[2018-10-06 08:05] VITALS: BP 133/80
[2018-10-06] MEDS: BIOTIN 5000 MCG GT SCH (08:38)
[2018-10-06] MEDS: RIFAXIMIN 550 MG TABLET GT SCH ×2 (08:38→17:06)
[2018-10-06] MEDS: ASPIRIN 81 MG TAB.CHEW GT SCH (08:38)
[2018-10-06] MEDS: CHOLECALCIFEROL (VITAMIN D 3) 400 UNIT TABLET GT SCH ×2 (08:38→21:51)
[2018-10-06] MEDS: POTASSIUM CHLORIDE GT SCH (08:38)
[2018-10-06] MEDS: FINASTERIDE (5 MG) 5 MG TABLET GT SCH (08:38)
[2018-10-06] MEDS: DICLOFENAC TOPICAL 100 GM GEL..GM. TP SCH ×2 (09:00→17:07)
[2018-10-06] MEDS: VITAMINS A AND D 56.7 GM TUBE TP SCH ×2 (09:00→21:51)
[2018-10-06] MEDS: Z GUARD REMEDY 4 OZ OINT TP SCH ×2 (09:00→21:51)
[2018-10-06] MEDS: HYDROGEN PEROXIDE 480 ML BOTTLE TP SCH ×2 (09:00→21:51)
[2018-10-06] MEDS: VITS A AND D/WHITE PET/LANOLIN 5 GM PACKET TP SCH ×4 (09:00→21:51)
[2018-10-06] MEDS: PRUNE JUICE GT SCH (11:00)
[2018-10-06] MEDS: [UNRECOGNIZED DRUG - OTHER] TP SCH ×2 (13:00→17:08)
[2018-10-06] MEDS: HYDROCODONE/APAP 7.5/325MG 1 EACH TABLET GT PRN (17:07)
[2018-10-06] MEDS: JEVITY 1.2 CAL 1,000 ML BOTTLE GT PRN (18:41)
[2018-10-06 20:28] VITALS: BP 149/83
--- NOTE | 2018-10-06 21:13 | NUR ---
RT NOTE RECEIVED TRACH PATIENT ON ROOM AIR. PLACED PATIENT ON COOL AEROSOL PER MD ORDER. HHN INLINE TREATMENT WAS GIVEN, NO ADVERSE REACTION NOTED. PRN SUCTION WAS DONE. TRACH TUBE PATENT AND SECURED. NO RESPIRATORY DISTRESS NOTED AT THIS TIME. WILL CONTINUE TO MONITOR PATIENT. Addendum: 10/06/18 at 2113 by LUANN LAFLEUR RT Amended: Links added.
[2018-10-06] MEDS: LATANOPROST EYE DROP 0.005% 2.5 ML BOTTLE EACHEYE SCH (21:51)
[2018-10-06] MEDS: LORATADINE 10 MG TABLET GT SCH (21:51)
[2018-10-06] MEDS: BENAZEPRIL HCL 5 MG TABLET GT SCH (21:52)
[2018-10-06] MEDS: PRAVASTATIN SODIUM 20 MG TABLET GT SCH (21:52)
[2018-10-07] MEDS: IPRATROPIUM NEB FS 0.5 MG/2.5 ML AMPUL.NEB NEB SCH ×4 (01:19→19:35)
[2018-10-07] MEDS: CHLORHEXIDINE GLUCONATE 15 ML UDC MM SCH ×2 (05:10→17:48)
[2018-10-07] MEDS: SUMATRIPTAN SUCCINATE 25 MG TABLET GT PRN (05:10)
[2018-10-07] MEDS: MAGNESIUM HYDROXIDE 30 ML UDC GT PRN (05:11)
[2018-10-07] MEDS: FINASTERIDE (5 MG) 5 MG TABLET GT SCH (08:35)
[2018-10-07] MEDS: BIOTIN 5000 MCG GT SCH (08:35)
[2018-10-07] MEDS: HYDROGEN PEROXIDE 480 ML BOTTLE TP SCH ×2 (08:35→20:46)
[2018-10-07] MEDS: Z GUARD REMEDY 4 OZ OINT TP SCH ×2 (08:35→20:46)
[2018-10-07] MEDS: CHOLECALCIFEROL (VITAMIN D 3) 400 UNIT TABLET GT SCH ×2 (08:35→20:45)
[2018-10-07] MEDS: RIFAXIMIN 550 MG TABLET GT SCH ×2 (08:35→17:48)
[2018-10-07] MEDS: POTASSIUM CHLORIDE GT SCH (08:35)
[2018-10-07] MEDS: VITAMINS A AND D 56.7 GM TUBE TP SCH ×2 (08:36→20:46)
[2018-10-07] MEDS: DICLOFENAC TOPICAL 100 GM GEL..GM. TP SCH ×2 (08:36→17:48)
[2018-10-07] MEDS: VITS A AND D/WHITE PET/LANOLIN 5 GM PACKET TP SCH ×4 (08:36→20:46)
[2018-10-07 11:06] VITALS: BP 147/83
[2018-10-07] MEDS: PRUNE JUICE GT SCH (11:56)
[2018-10-07] MEDS: [UNRECOGNIZED DRUG - OTHER] TP SCH ×2 (13:00→17:59)
[2018-10-07 19:43] VITALS: BP 119/72
[2018-10-07] MEDS: LATANOPROST EYE DROP 0.005% 2.5 ML BOTTLE EACHEYE SCH (21:36)
[2018-10-07] MEDS: LORATADINE 10 MG TABLET GT SCH (21:36)
[2018-10-07] MEDS: PRAVASTATIN SODIUM 20 MG TABLET GT SCH (21:36)
[2018-10-07] MEDS: BENAZEPRIL HCL 5 MG TABLET GT SCH (21:36)
[2018-10-08] MEDS: IPRATROPIUM NEB FS 0.5 MG/2.5 ML AMPUL.NEB NEB SCH ×4 (01:51→19:30)
[2018-10-08] MEDS: CHLORHEXIDINE GLUCONATE 15 ML UDC MM SCH ×2 (05:52→17:34)
[2018-10-08 07:33] VITALS: BP 145/80
[2018-10-08] MEDS: VITS A AND D/WHITE PET/LANOLIN 5 GM PACKET TP SCH ×4 (08:40→21:00)
[2018-10-08] MEDS: DICLOFENAC TOPICAL 100 GM GEL..GM. TP SCH ×2 (08:40→17:34)
[2018-10-08] MEDS: Z GUARD REMEDY 4 OZ OINT TP SCH ×2 (08:40→21:00)
[2018-10-08] MEDS: RIFAXIMIN 550 MG TABLET GT SCH ×2 (08:40→17:34)
[2018-10-08] MEDS: HYDROGEN PEROXIDE 480 ML BOTTLE TP SCH ×2 (08:40→21:00)
[2018-10-08] MEDS: VITAMINS A AND D 56.7 GM TUBE TP SCH ×2 (08:40→21:00)
[2018-10-08] MEDS: ASPIRIN 81 MG TAB.CHEW GT SCH (08:40)
[2018-10-08] MEDS: CHOLECALCIFEROL (VITAMIN D 3) 400 UNIT TABLET GT SCH ×2 (08:40→21:00)
[2018-10-08] MEDS: POTASSIUM CHLORIDE GT SCH (08:40)
[2018-10-08] MEDS: BIOTIN 5000 MCG GT SCH (08:40)
[2018-10-08] MEDS: FINASTERIDE (5 MG) 5 MG TABLET GT SCH (08:40)
[2018-10-08] MEDS: PRUNE JUICE GT SCH (11:59)
[2018-10-08] MEDS: JEVITY 1.2 CAL 1,000 ML BOTTLE GT PRN (18:21)
[2018-10-08 19:57] VITALS: BP 137/78
[2018-10-08] MEDS: LORATADINE 10 MG TABLET GT SCH (22:08)
[2018-10-08] MEDS: LATANOPROST EYE DROP 0.005% 2.5 ML BOTTLE EACHEYE SCH (22:08)
[2018-10-08] MEDS: BENAZEPRIL HCL 5 MG TABLET GT SCH (22:12)
[2018-10-08] MEDS: PRAVASTATIN SODIUM 20 MG TABLET GT SCH (22:13)
[2018-10-09] MEDS: IPRATROPIUM NEB FS 0.5 MG/2.5 ML AMPUL.NEB NEB SCH ×4 (01:29→19:44)
[2018-10-09] MEDS: CHLORHEXIDINE GLUCONATE 15 ML UDC MM SCH ×2 (05:18→17:29)
[2018-10-09 07:41] VITALS: BP 156/92
[2018-10-09] MEDS: VITAMINS A AND D 56.7 GM TUBE TP SCH ×2 (08:20→20:47)
[2018-10-09] MEDS: RIFAXIMIN 550 MG TABLET GT SCH ×2 (08:20→17:29)
[2018-10-09] MEDS: HYDROGEN PEROXIDE 480 ML BOTTLE TP SCH ×2 (08:20→20:47)
[2018-10-09] MEDS: Z GUARD REMEDY 4 OZ OINT TP SCH ×2 (08:20→20:47)
[2018-10-09] MEDS: VITS A AND D/WHITE PET/LANOLIN 5 GM PACKET TP SCH ×4 (08:20→20:47)
[2018-10-09] MEDS: BIOTIN 5000 MCG GT SCH (08:20)
[2018-10-09] MEDS: DICLOFENAC TOPICAL 100 GM GEL..GM. TP SCH ×2 (08:20→17:29)
[2018-10-09] MEDS: POTASSIUM CHLORIDE GT SCH (08:20)
[2018-10-09] MEDS: FINASTERIDE (5 MG) 5 MG TABLET GT SCH (08:20)
[2018-10-09] MEDS: CHOLECALCIFEROL (VITAMIN D 3) 400 UNIT TABLET GT SCH ×2 (08:20→20:46)
[2018-10-09] MEDS: PRUNE JUICE GT SCH (11:00)
[2018-10-09] MEDS: GLYCOPYRROLATE 1 MG TABLET GT PRN (12:12)
[2018-10-09] MEDS: JEVITY 1.2 CAL 1,000 ML BOTTLE GT PRN (18:56)
[2018-10-09 20:38] VITALS: BP 134/71
[2018-10-09] MEDS: LORATADINE 10 MG TABLET GT SCH (21:46)
[2018-10-09] MEDS: LATANOPROST EYE DROP 0.005% 2.5 ML BOTTLE EACHEYE SCH (21:46)
[2018-10-09] MEDS: PRAVASTATIN SODIUM 20 MG TABLET GT SCH (21:47)
[2018-10-09] MEDS: BENAZEPRIL HCL 5 MG TABLET GT SCH (21:47)
[2018-10-10] MEDS: IPRATROPIUM NEB FS 0.5 MG/2.5 ML AMPUL.NEB NEB SCH ×4 (01:38→20:00)
[2018-10-10] MEDS: CHLORHEXIDINE GLUCONATE 15 ML UDC MM SCH ×2 (05:58→17:54)
[2018-10-10] MEDS: BIOTIN 5000 MCG GT SCH (08:28)
[2018-10-10] MEDS: VITS A AND D/WHITE PET/LANOLIN 5 GM PACKET TP SCH ×4 (08:28→20:43)
[2018-10-10] MEDS: RIFAXIMIN 550 MG TABLET GT SCH ×2 (08:28→17:54)
[2018-10-10] MEDS: DICLOFENAC TOPICAL 100 GM GEL..GM. TP SCH ×2 (08:28→17:54)
[2018-10-10] MEDS: CHOLECALCIFEROL (VITAMIN D 3) 400 UNIT TABLET GT SCH ×2 (08:28→20:42)
[2018-10-10] MEDS: HYDROGEN PEROXIDE 480 ML BOTTLE TP SCH ×2 (08:28→20:43)
[2018-10-10] MEDS: Z GUARD REMEDY 4 OZ OINT TP SCH ×2 (08:28→20:43)
[2018-10-10] MEDS: FINASTERIDE (5 MG) 5 MG TABLET GT SCH (08:28)
[2018-10-10] MEDS: VITAMINS A AND D 56.7 GM TUBE TP SCH ×2 (08:28→20:43)
[2018-10-10] MEDS: ASPIRIN 81 MG TAB.CHEW GT SCH (08:28)
[2018-10-10] MEDS: POTASSIUM CHLORIDE GT SCH (08:28)
[2018-10-10 10:24] VITALS: BP 126/72
[2018-10-10] MEDS: PRUNE JUICE GT SCH (11:24)
[2018-10-10] MEDS: GLYCOPYRROLATE 1 MG TABLET GT PRN (18:01)
[2018-10-10 20:45] VITALS: BP 138/81
[2018-10-10] MEDS: PRAVASTATIN SODIUM 20 MG TABLET GT SCH (21:52)
[2018-10-10] MEDS: LATANOPROST EYE DROP 0.005% 2.5 ML BOTTLE EACHEYE SCH (21:52)
[2018-10-10] MEDS: BENAZEPRIL HCL 5 MG TABLET GT SCH (21:52)
[2018-10-10] MEDS: LORATADINE 10 MG TABLET GT SCH (21:52)
[2018-10-11] MEDS: JEVITY 1.2 CAL 1,000 ML BOTTLE GT PRN ×2 (00:44→22:35)
[2018-10-11] MEDS: IPRATROPIUM NEB FS 0.5 MG/2.5 ML AMPUL.NEB NEB SCH ×4 (01:51→19:32)
[2018-10-11] MEDS: CHLORHEXIDINE GLUCONATE 15 ML UDC MM SCH ×2 (06:01→17:07)
[2018-10-11] MEDS: DICLOFENAC TOPICAL 100 GM GEL..GM. TP SCH ×2 (09:00→17:07)
[2018-10-11] MEDS: Z GUARD REMEDY 4 OZ OINT TP SCH ×2 (09:00→20:44)
[2018-10-11] MEDS: VITAMINS A AND D 56.7 GM TUBE TP SCH ×2 (09:00→20:44)
[2018-10-11] MEDS: VITS A AND D/WHITE PET/LANOLIN 5 GM PACKET TP SCH ×4 (09:00→20:44)
[2018-10-11] MEDS: HYDROGEN PEROXIDE 480 ML BOTTLE TP SCH ×2 (09:00→20:44)
[2018-10-11] MEDS: POTASSIUM CHLORIDE GT SCH (09:01)
[2018-10-11] MEDS: CHOLECALCIFEROL (VITAMIN D 3) 400 UNIT TABLET GT SCH ×2 (09:01→20:43)
[2018-10-11] MEDS: BIOTIN 5000 MCG GT SCH (09:01)
[2018-10-11] MEDS: FINASTERIDE (5 MG) 5 MG TABLET GT SCH (09:01)
[2018-10-11] MEDS: RIFAXIMIN 550 MG TABLET GT SCH ×2 (09:01→17:07)
[2018-10-11] MEDS: PRUNE JUICE GT SCH (11:00)
[2018-10-11 11:32] VITALS: BP 126/70
--- NOTE | 2018-10-11 16:55 | NUR ---
Late entry for 10/10/18 Instructed staff to keep pt's HOB elevated when providing bed bath or showers to prevent water from trickling down pt's trach. Trach is also capped when bed baths or showers are being provided, and a small towel is also being used to prevent water from getting into the trach. No respiratory distress noted throughout the shift.
[2018-10-11 20:22] VITALS: BP 140/84
[2018-10-11] MEDS: BENAZEPRIL HCL 5 MG TABLET GT SCH (21:52)
[2018-10-11] MEDS: LATANOPROST EYE DROP 0.005% 2.5 ML BOTTLE EACHEYE SCH (21:52)
[2018-10-11] MEDS: PRAVASTATIN SODIUM 20 MG TABLET GT SCH (21:52)
[2018-10-11] MEDS: LORATADINE 10 MG TABLET GT SCH (21:52)
[2018-10-11] MEDS: HYDROCODONE/APAP 7.5/325MG 1 EACH TABLET GT PRN (22:17)
[2018-10-12] MEDS: IPRATROPIUM NEB FS 0.5 MG/2.5 ML AMPUL.NEB NEB SCH ×4 (00:59→20:16)
[2018-10-12] MEDS: CHLORHEXIDINE GLUCONATE 15 ML UDC MM SCH ×2 (05:50→17:00)
[2018-10-12 07:47] VITALS: BP 138/72
[2018-10-12] MEDS: BIOTIN 5000 MCG GT SCH (08:17)
[2018-10-12] MEDS: POTASSIUM CHLORIDE GT SCH (08:17)
[2018-10-12] MEDS: ASPIRIN 81 MG TAB.CHEW GT SCH (08:17)
[2018-10-12] MEDS: Z GUARD REMEDY 4 OZ OINT TP SCH ×2 (08:18→21:12)
[2018-10-12] MEDS: CHOLECALCIFEROL (VITAMIN D 3) 400 UNIT TABLET GT SCH ×2 (08:18→21:12)
[2018-10-12] MEDS: DICLOFENAC TOPICAL 100 GM GEL..GM. TP SCH ×2 (08:18→16:48)
[2018-10-12] MEDS: FINASTERIDE (5 MG) 5 MG TABLET GT SCH (08:18)
[2018-10-12] MEDS: VITAMINS A AND D 56.7 GM TUBE TP SCH ×2 (08:18→21:12)
[2018-10-12] MEDS: VITS A AND D/WHITE PET/LANOLIN 5 GM PACKET TP SCH ×4 (08:18→21:12)
[2018-10-12] MEDS: HYDROGEN PEROXIDE 480 ML BOTTLE TP SCH ×2 (08:18→21:12)
[2018-10-12] MEDS: RIFAXIMIN 550 MG TABLET GT SCH ×2 (08:18→16:48)
[2018-10-12] MEDS: PRUNE JUICE GT SCH (11:00)
--- NOTE | 2018-10-12 11:46 | NUR ---
Seen and examined by Dr. Jerry rain.
[2018-10-12] MEDS: ACETAMINOPHEN 650 MG/20 ML UDC- SA PATIENTS-PAIN ONLY GT PRN (17:14)
[2018-10-12] MEDS: HYDROCODONE/APAP 7.5/325MG 1 EACH TABLET GT PRN (17:17)
[2018-10-12 19:52] VITALS: BP 147/86
[2018-10-12] MEDS: PRAVASTATIN SODIUM 20 MG TABLET GT SCH (21:12)
[2018-10-12] MEDS: LORATADINE 10 MG TABLET GT SCH (21:12)
[2018-10-12] MEDS: BENAZEPRIL HCL 5 MG TABLET GT SCH (21:12)
[2018-10-12] MEDS: LATANOPROST EYE DROP 0.005% 2.5 ML BOTTLE EACHEYE SCH (21:12)
[2018-10-12] MEDS: MAGNESIUM HYDROXIDE 30 ML UDC GT PRN (22:30)
[2018-10-12] MEDS: JEVITY 1.2 CAL 1,000 ML BOTTLE GT PRN (22:36)
[2018-10-13] MEDS: IPRATROPIUM NEB FS 0.5 MG/2.5 ML AMPUL.NEB NEB SCH ×4 (01:00→19:49)
[2018-10-13] MEDS: CHLORHEXIDINE GLUCONATE 15 ML UDC MM SCH ×2 (05:25→17:15)
[2018-10-13] MEDS: BISACODYL SUPP (10 MG) 10 MG/SUPP.RECT SUPP.RECT RC PRN (06:33)
[2018-10-13 07:41] VITALS: BP 146/88
[2018-10-13] MEDS: POTASSIUM CHLORIDE GT SCH (09:06)
[2018-10-13] MEDS: Z GUARD REMEDY 4 OZ OINT TP SCH ×2 (09:07→21:08)
[2018-10-13] MEDS: CHOLECALCIFEROL (VITAMIN D 3) 400 UNIT TABLET GT SCH ×2 (09:07→21:08)
[2018-10-13] MEDS: DICLOFENAC TOPICAL 100 GM GEL..GM. TP SCH ×2 (09:07→17:15)
[2018-10-13] MEDS: BIOTIN 5000 MCG GT SCH (09:07)
[2018-10-13] MEDS: VITS A AND D/WHITE PET/LANOLIN 5 GM PACKET TP SCH ×4 (09:07→21:08)
[2018-10-13] MEDS: FINASTERIDE (5 MG) 5 MG TABLET GT SCH (09:07)
[2018-10-13] MEDS: VITAMINS A AND D 56.7 GM TUBE TP SCH ×2 (09:07→21:08)
[2018-10-13] MEDS: RIFAXIMIN 550 MG TABLET GT SCH ×2 (09:07→17:14)
[2018-10-13] MEDS: HYDROGEN PEROXIDE 480 ML BOTTLE TP SCH ×2 (09:07→21:08)
[2018-10-13] MEDS: PRUNE JUICE GT SCH (11:59)
[2018-10-13] MEDS: MAGNESIUM HYDROXIDE 30 ML UDC GT PRN (17:15)
[2018-10-13 19:50] VITALS: BP 96/51
--- NOTE | 2018-10-13 20:33 | NUR ---
PT CHRISTOPHER RICHARDSON'D ON COOL AEROSOL WITH CHARTED SETTINGS. HHN TX GIVEN AND NO ADVERSE REACTION NOTED. SX DONE. PT TRACH PATENT AND SECURE. AMBU BAG AT BEDSIDE. WILL CONTINUE TO MONITOR. Addendum: 10/13/18 at 2033 by LISETH MOCK RT Amended: Links added.
[2018-10-13] MEDS: LORATADINE 10 MG TABLET GT SCH (21:09)
[2018-10-13] MEDS: LATANOPROST EYE DROP 0.005% 2.5 ML BOTTLE EACHEYE SCH (21:09)
[2018-10-13] MEDS: BENAZEPRIL HCL 5 MG TABLET GT SCH (21:09)
[2018-10-13] MEDS: GLYCOPYRROLATE 1 MG TABLET GT PRN (21:09)
[2018-10-13] MEDS: PRAVASTATIN SODIUM 20 MG TABLET GT SCH (21:09)
[2018-10-14] MEDS: JEVITY 1.2 CAL 1,000 ML BOTTLE GT PRN (01:18)
[2018-10-14] MEDS: IPRATROPIUM NEB FS 0.5 MG/2.5 ML AMPUL.NEB NEB SCH ×4 (01:20→19:50)
[2018-10-14] MEDS: CHLORHEXIDINE GLUCONATE 15 ML UDC MM SCH ×2 (05:33→17:09)
[2018-10-14] MEDS: BISACODYL SUPP (10 MG) 10 MG/SUPP.RECT SUPP.RECT RC PRN (06:59)
[2018-10-14 07:36] VITALS: BP 137/79
--- NOTE | 2018-10-14 08:40 | NUR ---
Seen and examined by Dr. Jerry rain.
[2018-10-14] MEDS: HYDROCODONE/APAP 7.5/325MG 1 EACH TABLET GT PRN ×2 (09:18→21:53)
[2018-10-14] MEDS: POTASSIUM CHLORIDE GT SCH (09:19)
[2018-10-14] MEDS: ASPIRIN 81 MG TAB.CHEW GT SCH (09:19)
[2018-10-14] MEDS: FINASTERIDE (5 MG) 5 MG TABLET GT SCH (09:19)
[2018-10-14] MEDS: CHOLECALCIFEROL (VITAMIN D 3) 400 UNIT TABLET GT SCH ×2 (09:19→21:09)
[2018-10-14] MEDS: BIOTIN 5000 MCG GT SCH (09:19)
[2018-10-14] MEDS: RIFAXIMIN 550 MG TABLET GT SCH ×2 (09:19→17:09)
[2018-10-14] MEDS: HYDROGEN PEROXIDE 480 ML BOTTLE TP SCH ×2 (09:20→21:09)
[2018-10-14] MEDS: Z GUARD REMEDY 4 OZ OINT TP SCH ×2 (09:20→21:09)
[2018-10-14] MEDS: VITAMINS A AND D 56.7 GM TUBE TP SCH ×2 (09:20→21:10)
[2018-10-14] MEDS: VITS A AND D/WHITE PET/LANOLIN 5 GM PACKET TP SCH ×4 (09:20→21:09)
[2018-10-14] MEDS: DICLOFENAC TOPICAL 100 GM GEL..GM. TP SCH ×2 (09:21→17:09)
[2018-10-14] MEDS: PRUNE JUICE GT SCH (11:00)
[2018-10-14 20:06] VITALS: BP 139/82
[2018-10-14] MEDS: LORATADINE 10 MG TABLET GT SCH (21:10)
[2018-10-14] MEDS: PRAVASTATIN SODIUM 20 MG TABLET GT SCH (21:10)
[2018-10-14] MEDS: LATANOPROST EYE DROP 0.005% 2.5 ML BOTTLE EACHEYE SCH (21:10)
[2018-10-14] MEDS: BENAZEPRIL HCL 5 MG TABLET GT SCH (21:10)
[2018-10-15] MEDS: IPRATROPIUM NEB FS 0.5 MG/2.5 ML AMPUL.NEB NEB SCH ×4 (01:35→19:46)
[2018-10-15] MEDS: JEVITY 1.2 CAL 1,000 ML BOTTLE GT PRN (03:00)
[2018-10-15] MEDS: CHLORHEXIDINE GLUCONATE 15 ML UDC MM SCH ×2 (05:36→17:27)
[2018-10-15 08:13] VITALS: BP 117/89
[2018-10-15] MEDS: VITS A AND D/WHITE PET/LANOLIN 5 GM PACKET TP SCH ×4 (08:52→21:23)
[2018-10-15] MEDS: VITAMINS A AND D 56.7 GM TUBE TP SCH ×2 (08:52→21:24)
[2018-10-15] MEDS: CHOLECALCIFEROL (VITAMIN D 3) 400 UNIT TABLET GT SCH ×2 (08:52→21:23)
[2018-10-15] MEDS: HYDROGEN PEROXIDE 480 ML BOTTLE TP SCH ×2 (08:52→21:23)
[2018-10-15] MEDS: RIFAXIMIN 550 MG TABLET GT SCH ×2 (08:52→17:27)
[2018-10-15] MEDS: BIOTIN 5000 MCG GT SCH (08:52)
[2018-10-15] MEDS: DICLOFENAC TOPICAL 100 GM GEL..GM. TP SCH ×2 (08:52→17:27)
[2018-10-15] MEDS: FINASTERIDE (5 MG) 5 MG TABLET GT SCH (08:52)
[2018-10-15] MEDS: Z GUARD REMEDY 4 OZ OINT TP SCH ×2 (08:52→21:23)
[2018-10-15] MEDS: POTASSIUM CHLORIDE GT SCH (08:52)
--- NOTE | 2018-10-15 09:03 | NUR ---
RT NOTE RECEIVED TRACH PATIENT ON COOL AEROSOL. PLACED PATIENT ON ROOM AIR PER MD ORDER. HHN INLINE TREATMENT WAS GIVEN, NO ADVERSE REACTION NOTED. PRN SUCTION WAS DONE. TRACH TUBE PATENT AND SECURED. NO RESPIRATORY DISTRESS NOTED AT THIS TIME. WILL CONTINUE TO MONITOR PATIENT. Addendum: 10/15/18 at 0904 by KRYSTLE ELIZABETH RT Amended: Links added.
[2018-10-15] MEDS: PRUNE JUICE GT SCH (11:34)
[2018-10-15 20:04] VITALS: BP 150/83
[2018-10-15] MEDS: LATANOPROST EYE DROP 0.005% 2.5 ML BOTTLE EACHEYE SCH (21:24)
[2018-10-15] MEDS: LORATADINE 10 MG TABLET GT SCH (21:24)
[2018-10-15] MEDS: BENAZEPRIL HCL 5 MG TABLET GT SCH (21:24)
[2018-10-15] MEDS: PRAVASTATIN SODIUM 20 MG TABLET GT SCH (21:24)
[2018-10-15] MEDS: SUMATRIPTAN SUCCINATE 25 MG TABLET GT PRN (21:40)
[2018-10-16] MEDS: HYDROCODONE/APAP 7.5/325MG 1 EACH TABLET GT PRN (00:10)
[2018-10-16] MEDS: IPRATROPIUM NEB FS 0.5 MG/2.5 ML AMPUL.NEB NEB SCH ×4 (01:30→20:06)
[2018-10-16] MEDS: CHLORHEXIDINE GLUCONATE 15 ML UDC MM SCH ×2 (05:53→17:53)
[2018-10-16] MEDS: JEVITY 1.2 CAL 1,000 ML BOTTLE GT PRN (05:56)
[2018-10-16 07:43] VITALS: BP 126/69
[2018-10-16] MEDS: FINASTERIDE (5 MG) 5 MG TABLET GT SCH (08:25)
[2018-10-16] MEDS: POTASSIUM CHLORIDE GT SCH (08:25)
[2018-10-16] MEDS: ASPIRIN 81 MG TAB.CHEW GT SCH (08:25)
[2018-10-16] MEDS: CHOLECALCIFEROL (VITAMIN D 3) 400 UNIT TABLET GT SCH ×2 (08:25→21:33)
[2018-10-16] MEDS: BIOTIN 5000 MCG GT SCH (08:25)
[2018-10-16] MEDS: RIFAXIMIN 550 MG TABLET GT SCH ×2 (08:25→16:42)
[2018-10-16] MEDS: VITAMINS A AND D 56.7 GM TUBE TP SCH ×2 (09:28→21:33)
[2018-10-16] MEDS: DICLOFENAC TOPICAL 100 GM GEL..GM. TP SCH ×2 (09:28→16:42)
[2018-10-16] MEDS: VITS A AND D/WHITE PET/LANOLIN 5 GM PACKET TP SCH ×4 (09:28→21:33)
[2018-10-16] MEDS: HYDROGEN PEROXIDE 480 ML BOTTLE TP SCH ×2 (09:28→21:33)
[2018-10-16] MEDS: Z GUARD REMEDY 4 OZ OINT TP SCH ×2 (09:28→21:33)
[2018-10-16] MEDS: PRUNE JUICE GT SCH (11:46)
[2018-10-16 20:02] VITALS: BP 132/85
[2018-10-16] MEDS: LATANOPROST EYE DROP 0.005% 2.5 ML BOTTLE EACHEYE SCH (21:33)
[2018-10-16] MEDS: LORATADINE 10 MG TABLET GT SCH (21:33)
[2018-10-16] MEDS: BENAZEPRIL HCL 5 MG TABLET GT SCH (21:33)
[2018-10-16] MEDS: PRAVASTATIN SODIUM 20 MG TABLET GT SCH (21:34)
[2018-10-17] MEDS: IPRATROPIUM NEB FS 0.5 MG/2.5 ML AMPUL.NEB NEB SCH ×4 (01:05→19:45)
[2018-10-17] MEDS: JEVITY 1.2 CAL 1,000 ML BOTTLE GT PRN (05:40)
[2018-10-17] MEDS: CHLORHEXIDINE GLUCONATE 15 ML UDC MM SCH ×2 (05:40→17:03)
[2018-10-17] MEDS: POTASSIUM CHLORIDE GT SCH (08:43)
[2018-10-17] MEDS: BIOTIN 5000 MCG GT SCH (08:43)
[2018-10-17] MEDS: FINASTERIDE (5 MG) 5 MG TABLET GT SCH (08:44)
[2018-10-17] MEDS: RIFAXIMIN 550 MG TABLET GT SCH ×2 (08:45→17:03)
[2018-10-17] MEDS: VITAMINS A AND D 56.7 GM TUBE TP SCH ×2 (08:45→21:10)
[2018-10-17] MEDS: CHOLECALCIFEROL (VITAMIN D 3) 400 UNIT TABLET GT SCH ×2 (08:45→21:10)
[2018-10-17] MEDS: HYDROGEN PEROXIDE 480 ML BOTTLE TP SCH ×2 (08:45→21:10)
[2018-10-17] MEDS: DICLOFENAC TOPICAL 100 GM GEL..GM. TP SCH ×2 (08:45→17:03)
[2018-10-17] MEDS: Z GUARD REMEDY 4 OZ OINT TP SCH ×2 (08:45→21:10)
[2018-10-17] MEDS: VITS A AND D/WHITE PET/LANOLIN 5 GM PACKET TP SCH ×4 (08:45→21:10)
[2018-10-17 10:44] VITALS: BP 134/76
[2018-10-17] MEDS: PRUNE JUICE GT SCH (11:51)
[2018-10-17 19:47] VITALS: BP 148/90
[2018-10-17] MEDS: LATANOPROST EYE DROP 0.005% 2.5 ML BOTTLE EACHEYE SCH (21:10)
[2018-10-17] MEDS: LORATADINE 10 MG TABLET GT SCH (21:11)
[2018-10-17] MEDS: PRAVASTATIN SODIUM 20 MG TABLET GT SCH (21:11)
[2018-10-17] MEDS: BENAZEPRIL HCL 5 MG TABLET GT SCH (21:11)
[2018-10-18] MEDS: IPRATROPIUM NEB FS 0.5 MG/2.5 ML AMPUL.NEB NEB SCH ×4 (00:56→20:00)
[2018-10-18] MEDS: CHLORHEXIDINE GLUCONATE 15 ML UDC MM SCH ×2 (05:50→17:47)
[2018-10-18 07:26] VITALS: BP 149/73
[2018-10-18] MEDS: ASPIRIN 81 MG TAB.CHEW GT SCH (08:16)
[2018-10-18] MEDS: DICLOFENAC TOPICAL 100 GM GEL..GM. TP SCH ×2 (08:16→17:47)
[2018-10-18] MEDS: FINASTERIDE (5 MG) 5 MG TABLET GT SCH (08:16)
[2018-10-18] MEDS: POTASSIUM CHLORIDE GT SCH (08:16)
[2018-10-18] MEDS: CHOLECALCIFEROL (VITAMIN D 3) 400 UNIT TABLET GT SCH ×2 (08:16→21:11)
[2018-10-18] MEDS: BIOTIN 5000 MCG GT SCH (08:16)
[2018-10-18] MEDS: RIFAXIMIN 550 MG TABLET GT SCH ×2 (08:16→17:47)
[2018-10-18] MEDS: VITS A AND D/WHITE PET/LANOLIN 5 GM PACKET TP SCH ×4 (09:39→21:12)
[2018-10-18] MEDS: VITAMINS A AND D 56.7 GM TUBE TP SCH ×2 (09:39→21:12)
[2018-10-18] MEDS: HYDROGEN PEROXIDE 480 ML BOTTLE TP SCH ×2 (09:39→21:11)
[2018-10-18] MEDS: Z GUARD REMEDY 4 OZ OINT TP SCH ×2 (09:39→21:11)
[2018-10-18] MEDS: PRUNE JUICE GT SCH (11:00)
--- NOTE | 2018-10-18 15:10 | NUR ---
Pt has redness on his right foot 4th metatarsal. Also noted a scant amount of dried blood on the toenail. Pt's said she saw it last night and that he probably bumped his toes. Received order to apply betadine q shift for 7 days. 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 Informed social services manager Sulema.
[2018-10-18] MEDS: POVIDONE-IODINE OINT 28.4 GM TUBE TP SCH (21:11)
[2018-10-18] MEDS: PRAVASTATIN SODIUM 20 MG TABLET GT SCH (21:12)
[2018-10-18] MEDS: LATANOPROST EYE DROP 0.005% 2.5 ML BOTTLE EACHEYE SCH (21:12)
[2018-10-18] MEDS: LORATADINE 10 MG TABLET GT SCH (21:12)
[2018-10-18] MEDS: BENAZEPRIL HCL 5 MG TABLET GT SCH (21:12)
[2018-10-18 21:47] VITALS: BP 143/77
[2018-10-19] MEDS: IPRATROPIUM NEB FS 0.5 MG/2.5 ML AMPUL.NEB NEB SCH ×4 (01:28→19:57)
[2018-10-19] MEDS: HYDROCODONE/APAP 7.5/325MG 1 EACH TABLET GT PRN ×2 (01:32→09:13)
[2018-10-19] MEDS: CHLORHEXIDINE GLUCONATE 15 ML UDC MM SCH ×2 (05:59→17:36)
[2018-10-19 07:36] VITALS: BP 136/70
[2018-10-19] MEDS: RIFAXIMIN 550 MG TABLET GT SCH ×2 (08:32→17:36)
[2018-10-19] MEDS: FINASTERIDE (5 MG) 5 MG TABLET GT SCH (08:32)
[2018-10-19] MEDS: BIOTIN 5000 MCG GT SCH (08:32)
[2018-10-19] MEDS: POTASSIUM CHLORIDE GT SCH (08:32)
[2018-10-19] MEDS: CHOLECALCIFEROL (VITAMIN D 3) 400 UNIT TABLET GT SCH ×2 (08:32→21:35)
[2018-10-19] MEDS: DICLOFENAC TOPICAL 100 GM GEL..GM. TP SCH ×2 (09:00→17:37)
[2018-10-19] MEDS: VITAMINS A AND D 56.7 GM TUBE TP SCH ×2 (09:00→21:36)
[2018-10-19] MEDS: Z GUARD REMEDY 4 OZ OINT TP SCH ×2 (09:00→21:35)
[2018-10-19] MEDS: HYDROGEN PEROXIDE 480 ML BOTTLE TP SCH ×2 (09:00→21:35)
[2018-10-19] MEDS: VITS A AND D/WHITE PET/LANOLIN 5 GM PACKET TP SCH ×4 (09:00→21:35)
[2018-10-19] MEDS: POVIDONE-IODINE OINT 28.4 GM TUBE TP SCH ×2 (09:00→21:35)
[2018-10-19] MEDS: PRUNE JUICE GT SCH (11:00)
[2018-10-19 21:01] VITALS: BP 157/79
[2018-10-19] MEDS: LATANOPROST EYE DROP 0.005% 2.5 ML BOTTLE EACHEYE SCH (21:36)
[2018-10-19] MEDS: LORATADINE 10 MG TABLET GT SCH (21:36)
[2018-10-19] MEDS: BENAZEPRIL HCL 5 MG TABLET GT SCH (21:36)
[2018-10-19] MEDS: PRAVASTATIN SODIUM 20 MG TABLET GT SCH (21:36)
[2018-10-20] MEDS: IPRATROPIUM NEB FS 0.5 MG/2.5 ML AMPUL.NEB NEB SCH ×4 (01:07→19:34)
--- NOTE | 2018-10-20 01:47 | NUR ---
PT CHRISTOPHER RICHARDSON'D ON COOL AEROSOL WITH CHARTED SETTINGS. HHN TX GIVEN AND NO ADVERSE REACTION NOTED. SX DONE. PT TRACH PATENT AND SECURE. AMBU BAG AT BEDSIDE. WILL CONTINUE TO MONITOR. Addendum: 10/20/18 at 0148 by LISETH MOCK RT Amended: Links added.
[2018-10-20] MEDS: JEVITY 1.2 CAL 1,000 ML BOTTLE GT PRN (04:30)
[2018-10-20] MEDS: CHLORHEXIDINE GLUCONATE 15 ML UDC MM SCH ×2 (05:47→17:09)
[2018-10-20 07:33] VITALS: BP 130/77
[2018-10-20] MEDS: ASPIRIN 81 MG TAB.CHEW GT SCH (08:31)
[2018-10-20] MEDS: FINASTERIDE (5 MG) 5 MG TABLET GT SCH (08:31)
[2018-10-20] MEDS: RIFAXIMIN 550 MG TABLET GT SCH ×2 (08:31→17:09)
[2018-10-20] MEDS: POTASSIUM CHLORIDE GT SCH (08:31)
[2018-10-20] MEDS: BIOTIN 5000 MCG GT SCH (08:31)
[2018-10-20] MEDS: CHOLECALCIFEROL (VITAMIN D 3) 400 UNIT TABLET GT SCH ×2 (08:31→21:21)
[2018-10-20] MEDS: VITAMINS A AND D 56.7 GM TUBE TP SCH ×2 (08:32→21:21)
[2018-10-20] MEDS: Z GUARD REMEDY 4 OZ OINT TP SCH ×2 (08:32→21:21)
[2018-10-20] MEDS: POVIDONE-IODINE OINT 28.4 GM TUBE TP SCH ×2 (08:32→21:21)
[2018-10-20] MEDS: VITS A AND D/WHITE PET/LANOLIN 5 GM PACKET TP SCH ×4 (08:32→21:21)
[2018-10-20] MEDS: DICLOFENAC TOPICAL 100 GM GEL..GM. TP SCH ×2 (08:32→17:09)
[2018-10-20] MEDS: HYDROGEN PEROXIDE 480 ML BOTTLE TP SCH ×2 (08:32→21:21)
[2018-10-20] MEDS: PRUNE JUICE GT SCH (11:35)
[2018-10-20 21:03] VITALS: BP 97/62
[2018-10-20] MEDS: LATANOPROST EYE DROP 0.005% 2.5 ML BOTTLE EACHEYE SCH (21:21)
[2018-10-20] MEDS: LORATADINE 10 MG TABLET GT SCH (21:21)
[2018-10-20] MEDS: BENAZEPRIL HCL 5 MG TABLET GT SCH (21:22)
[2018-10-20] MEDS: PRAVASTATIN SODIUM 20 MG TABLET GT SCH (21:22)
[2018-10-20] MEDS: HYDROCODONE/APAP 7.5/325MG 1 EACH TABLET GT PRN (21:30)
[2018-10-20] MEDS: MAGNESIUM HYDROXIDE 30 ML UDC GT PRN (23:30)
[2018-10-21] MEDS: IPRATROPIUM NEB FS 0.5 MG/2.5 ML AMPUL.NEB NEB SCH ×4 (00:57→19:10)
[2018-10-21] MEDS: JEVITY 1.2 CAL 1,000 ML BOTTLE GT PRN (05:00)
[2018-10-21] MEDS: CHLORHEXIDINE GLUCONATE 15 ML UDC MM SCH ×2 (05:46→17:40)
[2018-10-21] MEDS: HYDROCODONE/APAP 7.5/325MG 1 EACH TABLET GT PRN ×2 (06:30→21:45)
[2018-10-21 07:51] VITALS: BP 139/81
[2018-10-21] MEDS: RIFAXIMIN 550 MG TABLET GT SCH ×2 (08:20→17:40)
[2018-10-21] MEDS: BIOTIN 5000 MCG GT SCH (08:20)
[2018-10-21] MEDS: POTASSIUM CHLORIDE GT SCH (08:20)
[2018-10-21] MEDS: FINASTERIDE (5 MG) 5 MG TABLET GT SCH (08:20)
[2018-10-21] MEDS: CHOLECALCIFEROL (VITAMIN D 3) 400 UNIT TABLET GT SCH ×2 (08:20→21:44)
[2018-10-21] MEDS: HYDROGEN PEROXIDE 480 ML BOTTLE TP SCH ×2 (08:21→21:44)
[2018-10-21] MEDS: VITS A AND D/WHITE PET/LANOLIN 5 GM PACKET TP SCH ×4 (08:21→21:44)
[2018-10-21] MEDS: VITAMINS A AND D 56.7 GM TUBE TP SCH ×2 (08:21→21:44)
[2018-10-21] MEDS: DICLOFENAC TOPICAL 100 GM GEL..GM. TP SCH ×2 (08:21→17:40)
[2018-10-21] MEDS: Z GUARD REMEDY 4 OZ OINT TP SCH ×2 (08:21→21:44)
[2018-10-21] MEDS: POVIDONE-IODINE OINT 28.4 GM TUBE TP SCH ×2 (08:21→21:44)
[2018-10-21] MEDS: PRUNE JUICE GT SCH (11:00)
--- NOTE | 2018-10-21 14:05 | NUR ---
Dr. Crespo seen patient and patient's told MD that patient is no longer getting Funginail. Dr. Crespo ordered Funginail x 1 more year until 10/21/2019. Order noted and carried out. Per [facility] pharmacist order placed and delivery will be tomorrow.
[2018-10-21] MEDS: BISACODYL SUPP (10 MG) 10 MG/SUPP.RECT SUPP.RECT RC PRN (18:55)
[2018-10-21 19:36] VITALS: BP 145/87
[2018-10-21] MEDS: BENAZEPRIL HCL 5 MG TABLET GT SCH (21:44)
[2018-10-21] MEDS: LORATADINE 10 MG TABLET GT SCH (21:44)
[2018-10-21] MEDS: LATANOPROST EYE DROP 0.005% 2.5 ML BOTTLE EACHEYE SCH (21:44)
[2018-10-21] MEDS: PRAVASTATIN SODIUM 20 MG TABLET GT SCH (21:44)
[2018-10-22] MEDS: IPRATROPIUM NEB FS 0.5 MG/2.5 ML AMPUL.NEB NEB SCH ×4 (01:39→19:33)
[2018-10-22] MEDS: JEVITY 1.2 CAL 1,000 ML BOTTLE GT PRN (05:30)
[2018-10-22] MEDS: CHLORHEXIDINE GLUCONATE 15 ML UDC MM SCH ×2 (05:32→17:18)
[2018-10-22 07:40] VITALS: BP 140/79
[2018-10-22] MEDS: RIFAXIMIN 550 MG TABLET GT SCH ×2 (08:45→17:18)
[2018-10-22] MEDS: BIOTIN 5000 MCG GT SCH (08:45)
[2018-10-22] MEDS: POTASSIUM CHLORIDE GT SCH (08:45)
[2018-10-22] MEDS: HYDROGEN PEROXIDE 480 ML BOTTLE TP SCH ×2 (08:45→21:23)
[2018-10-22] MEDS: VITS A AND D/WHITE PET/LANOLIN 5 GM PACKET TP SCH ×4 (08:45→21:23)
[2018-10-22] MEDS: CHOLECALCIFEROL (VITAMIN D 3) 400 UNIT TABLET GT SCH ×2 (08:45→21:23)
[2018-10-22] MEDS: ASPIRIN 81 MG TAB.CHEW GT SCH (08:45)
[2018-10-22] MEDS: Z GUARD REMEDY 4 OZ OINT TP SCH ×2 (08:45→21:23)
[2018-10-22] MEDS: FINASTERIDE (5 MG) 5 MG TABLET GT SCH (08:45)
[2018-10-22] MEDS: POVIDONE-IODINE OINT 28.4 GM TUBE TP SCH ×2 (08:45→21:23)
[2018-10-22] MEDS: VITAMINS A AND D 56.7 GM TUBE TP SCH ×2 (08:45→21:23)
[2018-10-22] MEDS: DICLOFENAC TOPICAL 100 GM GEL..GM. TP SCH ×2 (08:46→17:18)
[2018-10-22] MEDS: PRUNE JUICE GT SCH (11:00)
[2018-10-22] MEDS: [UNRECOGNIZED DRUG - OTHER] TP SCH ×2 (12:25→21:23)
[2018-10-22] MEDS: HYDROCODONE/APAP 7.5/325MG 1 EACH TABLET GT PRN (12:26)
--- NOTE | 2018-10-22 14:11 | NUR ---
Seen and examined by Dr. Edwards, according to , who is at bedside, patient has increase episode of hallucination. New order given to draw CBC, BMP, UA and C/S. Orders noted and carried out.
[2018-10-22 16:06] LABS: BASOPHILS # (AUTO) 0.1 /CMM (0.0-0.2); BASOPHILS % (AUTO) 2.3 % (0.0-2.0); EOSINOPHILS % (AUTO) 6.9 % (0.0-6.0); HEMATOCRIT 43 % (39-51); HEMOGLOBIN 14.8 g/dL (13.5-17.5); LYMPHOCYTES # (AUTO) 0.9 /CMM (0.8-4.8); LYMPHOCYTES % (AUTO) 26.4 % (20.0-44.0); MEAN CORPUSCULAR HGB CONC 34 g/dl (31.0-36.0); MEAN CORPUSCULAR VOLUME 98 fL (80-96); MONOCYTES # (AUTO) 0.3 /CMM (0.1-1.30); MONOCYTES % (AUTO) 7.8 % (2.0-12.0); NEUTROPHILS # (AUTO) 1.9 /CMM (1.8-8.9); NEUTROPHILS % (AUTO) 56.6 % (43.0-81.0); PLATELET COUNT (AUTO) 101 /CMM (150-450); RED BLOOD CELL COUNT(AUTO) 4.43 MIL/uL (4.5-6.0); WHITE BLOOD COUNT (AUTO) 3.4 K/uL (4.3-11.0)
[2018-10-22 16:27] LABS: CALCIUM, SERUM 8.5 mg/dL (8.5-10.1); CARBON DIOXIDE 30 mmol/L (21-32); CHLORIDE 102 mmol/L (98-107); CREATININE 0.8 mg/dL (0.6-1.3); GLUCOSE 109 mg/dL (74-106); POTASSIUM 4.2 mmol/L (3.5-5.1); SODIUM SERUM 132 mmol/L (136-145); UREA NITROGEN, BLOOD 15 mg/dL (7-18)
[2018-10-22 17:06] LABS: APPEARANCE,URINE SL CLOUDY (CLEAR); BILIRUBIN,URINE NEGATIVE (NEGATIVE); BLOOD, URINE NEGATIVE Ery/uL (NEGATIVE); COLOR,URINE YELLOW (YELLOW); KETONES,URINE NEGATIVE (NEGATIVE); LEUKOCYTE ESTERASE ,URINE 1+ (NEGATIVE); NITRITE, URINE NEGATIVE (NEGATIVE); PROTEIN,URINE NEGATIVE (NEGATIVE); UGLUCOSE NEGATIVE (NEGATIVE); UROBILINOGEN,URINE 0.2 EU/dL (0.2)
--- NOTE | 2018-10-22 17:35 | NUR ---
Relayed CBC and BMP result to Dr. Edwards. Awaiting for orders.
[2018-10-22 17:57] LABS: BACTERIA,URINE 4+ /HPF (None Seen); SQUAMOUS EPITHELIAL CELL,UR 0-2 /HPF (None Seen); URINE AMORPHOUS PHOSPHATES Few /HPF (None Seen)
[2018-10-22 19:35] VITALS: BP 131/79
[2018-10-22] MEDS: LATANOPROST EYE DROP 0.005% 2.5 ML BOTTLE EACHEYE SCH (21:23)
[2018-10-22] MEDS: LORATADINE 10 MG TABLET GT SCH (21:23)
[2018-10-22] MEDS: BENAZEPRIL HCL 5 MG TABLET GT SCH (21:24)
[2018-10-22] MEDS: PRAVASTATIN SODIUM 20 MG TABLET GT SCH (21:24)
[2018-10-23] MEDS: IPRATROPIUM NEB FS 0.5 MG/2.5 ML AMPUL.NEB NEB SCH ×4 (00:57→19:45)
[2018-10-23] MEDS: CHLORHEXIDINE GLUCONATE 15 ML UDC MM SCH ×2 (05:40→18:49)
[2018-10-23] MEDS: JEVITY 1.2 CAL 1,000 ML BOTTLE GT PRN (05:45)
[2018-10-23 07:24] VITALS: BP 111/69
[2018-10-23] MEDS: BIOTIN 5000 MCG GT SCH (09:01)
[2018-10-23] MEDS: HYDROGEN PEROXIDE 480 ML BOTTLE TP SCH ×2 (09:01→21:26)
[2018-10-23] MEDS: RIFAXIMIN 550 MG TABLET GT SCH ×2 (09:01→17:02)
[2018-10-23] MEDS: POVIDONE-IODINE OINT 28.4 GM TUBE TP SCH ×2 (09:01→21:26)
[2018-10-23] MEDS: FINASTERIDE (5 MG) 5 MG TABLET GT SCH (09:01)
[2018-10-23] MEDS: CHOLECALCIFEROL (VITAMIN D 3) 400 UNIT TABLET GT SCH ×2 (09:01→21:26)
[2018-10-23] MEDS: POTASSIUM CHLORIDE GT SCH (09:01)
[2018-10-23] MEDS: VITS A AND D/WHITE PET/LANOLIN 5 GM PACKET TP SCH ×4 (09:02→21:26)
[2018-10-23] MEDS: Z GUARD REMEDY 4 OZ OINT TP SCH ×2 (09:02→21:26)
[2018-10-23] MEDS: VITAMINS A AND D 56.7 GM TUBE TP SCH ×2 (09:03→21:26)
[2018-10-23] MEDS: DICLOFENAC TOPICAL 100 GM GEL..GM. TP SCH ×2 (09:03→17:02)
[2018-10-23] MEDS: PRUNE JUICE GT SCH (11:00)
[2018-10-23] MEDS: [UNRECOGNIZED DRUG - OTHER] TP SCH ×2 (12:02→21:26)
--- NOTE | 2018-10-23 19:56 | NUR ---
RT NOTE: PLACED TRACH PT BACK ON COOL AEROSOL. AMBU BAG @ BEDSIDE. Q6 BREATHING TX GIVEN PER MD ORDERS WITH NO ADVERSE REACTION NOTED. SX DONE PRN. TRACH PATENT AND SECURED. NO RESP DISTRESS NOTED AT THIS TIME. WILL CONTINUE TO MONITOR PT. Addendum: 10/24/18 at 0208 by LINNEA TOVAR RT Amended: Links added.
[2018-10-23 20:01] VITALS: BP 122/74
[2018-10-23] MEDS: LORATADINE 10 MG TABLET GT SCH (21:26)
[2018-10-23] MEDS: LATANOPROST EYE DROP 0.005% 2.5 ML BOTTLE EACHEYE SCH (21:26)
[2018-10-23] MEDS: BENAZEPRIL HCL 5 MG TABLET GT SCH (21:26)
[2018-10-23] MEDS: PRAVASTATIN SODIUM 20 MG TABLET GT SCH (21:26)
[2018-10-24] MEDS: IPRATROPIUM NEB FS 0.5 MG/2.5 ML AMPUL.NEB NEB SCH ×4 (01:01→20:06)
[2018-10-24] MEDS: CHLORHEXIDINE GLUCONATE 15 ML UDC MM SCH ×2 (05:52→18:00)
[2018-10-24] MEDS: JEVITY 1.2 CAL 1,000 ML BOTTLE GT PRN (05:52)
[2018-10-24 07:36] VITALS: BP 162/63
[2018-10-24] MEDS: ASPIRIN 81 MG TAB.CHEW GT SCH (08:30)
[2018-10-24] MEDS: RIFAXIMIN 550 MG TABLET GT SCH ×2 (09:47→17:00)
[2018-10-24] MEDS: FINASTERIDE (5 MG) 5 MG TABLET GT SCH (09:47)
[2018-10-24] MEDS: VITS A AND D/WHITE PET/LANOLIN 5 GM PACKET TP SCH ×4 (09:47→21:16)
[2018-10-24] MEDS: POTASSIUM CHLORIDE GT SCH (09:47)
[2018-10-24] MEDS: Z GUARD REMEDY 4 OZ OINT TP SCH ×2 (09:47→21:16)
[2018-10-24] MEDS: BIOTIN 5000 MCG GT SCH (09:47)
[2018-10-24] MEDS: VITAMINS A AND D 56.7 GM TUBE TP SCH ×2 (09:47→21:16)
[2018-10-24] MEDS: CHOLECALCIFEROL (VITAMIN D 3) 400 UNIT TABLET GT SCH ×2 (09:47→21:15)
[2018-10-24] MEDS: HYDROGEN PEROXIDE 480 ML BOTTLE TP SCH ×2 (09:47→21:16)
[2018-10-24] MEDS: DICLOFENAC TOPICAL 100 GM GEL..GM. TP SCH ×2 (09:47→17:00)
[2018-10-24] MEDS: POVIDONE-IODINE OINT 28.4 GM TUBE TP SCH ×2 (09:47→21:16)
[2018-10-24] MEDS: HYDROCODONE/APAP 7.5/325MG 1 EACH TABLET GT PRN (09:50)
[2018-10-24] MEDS: PRUNE JUICE GT SCH (11:00)
[2018-10-24] MEDS: [UNRECOGNIZED DRUG - OTHER] TP SCH ×2 (13:00→21:16)
--- NOTE | 2018-10-24 13:00 | NUR ---
Seen and examined by Trang Pichardo NP, no new order given.
--- NOTE | 2018-10-24 14:00 | NUR ---
Seen and examined by Dr. Edwards with new order of Furosemide 20 mg via GT q D for HTN, carried out.
--- NOTE | 2018-10-24 15:47 | NUR ---
SW communicated with patient's Asha about IDT mt this Saturday 10/28
[2018-10-24 19:48] VITALS: BP 138/75
[2018-10-24] MEDS: LATANOPROST EYE DROP 0.005% 2.5 ML BOTTLE EACHEYE SCH (21:16)
[2018-10-24] MEDS: LORATADINE 10 MG TABLET GT SCH (21:16)
[2018-10-24] MEDS: PRAVASTATIN SODIUM 20 MG TABLET GT SCH (21:16)
[2018-10-24] MEDS: BENAZEPRIL HCL 5 MG TABLET GT SCH (21:16)
[2018-10-25] MEDS: IPRATROPIUM NEB FS 0.5 MG/2.5 ML AMPUL.NEB NEB SCH ×4 (00:59→20:03)
[2018-10-25] MEDS: CHLORHEXIDINE GLUCONATE 15 ML UDC MM SCH ×2 (05:44→17:01)
[2018-10-25] MEDS: JEVITY 1.2 CAL 1,000 ML BOTTLE GT PRN (05:44)
[2018-10-25 07:32] VITALS: BP 134/82
[2018-10-25] MEDS: POTASSIUM CHLORIDE GT SCH (09:42)
[2018-10-25] MEDS: BIOTIN 5000 MCG GT SCH (09:44)
[2018-10-25] MEDS: RIFAXIMIN 550 MG TABLET GT SCH ×2 (09:46→17:00)
[2018-10-25] MEDS: FINASTERIDE (5 MG) 5 MG TABLET GT SCH (09:46)
[2018-10-25] MEDS: POVIDONE-IODINE OINT 28.4 GM TUBE TP SCH (09:47)
[2018-10-25] MEDS: DICLOFENAC TOPICAL 100 GM GEL..GM. TP SCH ×2 (09:47→17:00)
[2018-10-25] MEDS: VITS A AND D/WHITE PET/LANOLIN 5 GM PACKET TP SCH ×4 (09:47→21:15)
[2018-10-25] MEDS: VITAMINS A AND D 56.7 GM TUBE TP SCH ×2 (09:47→21:15)
[2018-10-25] MEDS: Z GUARD REMEDY 4 OZ OINT TP SCH ×2 (09:47→21:15)
[2018-10-25] MEDS: HYDROGEN PEROXIDE 480 ML BOTTLE TP SCH ×2 (09:47→21:14)
[2018-10-25] MEDS: CHOLECALCIFEROL (VITAMIN D 3) 400 UNIT TABLET GT SCH ×2 (09:49→21:14)
[2018-10-25] MEDS: FUROSEMIDE SOLN 40 MG/5 ML UDC GT SCH (09:51)
[2018-10-25] MEDS: HYDROCODONE/APAP 7.5/325MG 1 EACH TABLET GT PRN ×2 (10:38→23:56)
[2018-10-25] MEDS: PRUNE JUICE GT SCH (11:00)
[2018-10-25] MEDS: [UNRECOGNIZED DRUG - OTHER] TP SCH ×2 (12:55→21:14)
[2018-10-25 20:48] VITALS: BP 148/89
[2018-10-25] MEDS: LATANOPROST EYE DROP 0.005% 2.5 ML BOTTLE EACHEYE SCH (21:15)
[2018-10-25] MEDS: LORATADINE 10 MG TABLET GT SCH (21:15)
[2018-10-25] MEDS: PRAVASTATIN SODIUM 20 MG TABLET GT SCH (21:15)
[2018-10-25] MEDS: BENAZEPRIL HCL 5 MG TABLET GT SCH (21:15)
[2018-10-26] MEDS: IPRATROPIUM NEB FS 0.5 MG/2.5 ML AMPUL.NEB NEB SCH ×4 (01:21→19:31)
[2018-10-26] MEDS: CHLORHEXIDINE GLUCONATE 15 ML UDC MM SCH ×2 (06:13→17:22)
[2018-10-26 07:32] VITALS: BP 141/77
[2018-10-26] MEDS: CHOLECALCIFEROL (VITAMIN D 3) 400 UNIT TABLET GT SCH ×2 (08:32→21:17)
[2018-10-26] MEDS: ASPIRIN 81 MG TAB.CHEW GT SCH (08:32)
[2018-10-26] MEDS: POTASSIUM CHLORIDE GT SCH (08:32)
[2018-10-26] MEDS: FUROSEMIDE SOLN 40 MG/5 ML UDC GT SCH (08:34)
[2018-10-26] MEDS: RIFAXIMIN 550 MG TABLET GT SCH ×2 (08:34→16:35)
[2018-10-26] MEDS: FINASTERIDE (5 MG) 5 MG TABLET GT SCH (08:34)
[2018-10-26] MEDS: BIOTIN 5000 MCG GT SCH (08:34)
[2018-10-26] MEDS: VITS A AND D/WHITE PET/LANOLIN 5 GM PACKET TP SCH ×4 (09:00→21:17)
[2018-10-26] MEDS: VITAMINS A AND D 56.7 GM TUBE TP SCH ×2 (09:00→21:17)
[2018-10-26] MEDS: Z GUARD REMEDY 4 OZ OINT TP SCH ×2 (09:00→21:17)
[2018-10-26] MEDS: HYDROGEN PEROXIDE 480 ML BOTTLE TP SCH ×2 (09:00→21:17)
[2018-10-26] MEDS: DICLOFENAC TOPICAL 100 GM GEL..GM. TP SCH ×2 (09:00→16:35)
[2018-10-26] MEDS: PRUNE JUICE GT SCH (11:00)
[2018-10-26] MEDS: HYDROCODONE/APAP 7.5/325MG 1 EACH TABLET GT PRN ×2 (12:28→18:49)
[2018-10-26] MEDS: MAGNESIUM HYDROXIDE 30 ML UDC GT PRN (12:30)
[2018-10-26] MEDS: [UNRECOGNIZED DRUG - OTHER] TP SCH ×2 (13:00→21:17)
[2018-10-26 19:59] VITALS: BP 152/82
[2018-10-26] MEDS: PRAVASTATIN SODIUM 20 MG TABLET GT SCH (21:18)
[2018-10-26] MEDS: LATANOPROST EYE DROP 0.005% 2.5 ML BOTTLE EACHEYE SCH (21:18)
[2018-10-26] MEDS: LORATADINE 10 MG TABLET GT SCH (21:18)
[2018-10-26] MEDS: BENAZEPRIL HCL 5 MG TABLET GT SCH (21:18)
[2018-10-27] MEDS: IPRATROPIUM NEB FS 0.5 MG/2.5 ML AMPUL.NEB NEB SCH ×4 (01:35→19:46)
[2018-10-27] MEDS: CHLORHEXIDINE GLUCONATE 15 ML UDC MM SCH ×2 (05:53→17:23)
[2018-10-27] MEDS: JEVITY 1.2 CAL 1,000 ML BOTTLE GT PRN (06:01)
[2018-10-27 07:51] VITALS: BP 141/76
[2018-10-27] MEDS: Z GUARD REMEDY 4 OZ OINT TP SCH ×2 (08:13→20:14)
[2018-10-27] MEDS: BIOTIN 5000 MCG GT SCH (08:13)
[2018-10-27] MEDS: CHOLECALCIFEROL (VITAMIN D 3) 400 UNIT TABLET GT SCH ×2 (08:13→20:14)
[2018-10-27] MEDS: HYDROGEN PEROXIDE 480 ML BOTTLE TP SCH ×2 (08:13→20:14)
[2018-10-27] MEDS: FINASTERIDE (5 MG) 5 MG TABLET GT SCH (08:13)
[2018-10-27] MEDS: POTASSIUM CHLORIDE GT SCH (08:13)
[2018-10-27] MEDS: DICLOFENAC TOPICAL 100 GM GEL..GM. TP SCH ×2 (08:13→17:23)
[2018-10-27] MEDS: VITS A AND D/WHITE PET/LANOLIN 5 GM PACKET TP SCH ×4 (08:13→20:14)
[2018-10-27] MEDS: RIFAXIMIN 550 MG TABLET GT SCH ×2 (08:13→17:23)
[2018-10-27] MEDS: FUROSEMIDE SOLN 40 MG/5 ML UDC GT SCH (08:13)
[2018-10-27] MEDS: VITAMINS A AND D 56.7 GM TUBE TP SCH ×2 (08:13→20:14)
[2018-10-27] MEDS: PRUNE JUICE GT SCH (11:00)
--- NOTE | 2018-10-27 12:27 | NUR ---
Seen by Dr Edwards. He ordered BMP for tomorrow.
[2018-10-27] MEDS: [UNRECOGNIZED DRUG - OTHER] TP SCH ×2 (13:00→20:14)
--- NOTE | 2018-10-27 15:15 | NUR ---
Dr Edwards ordered Ampicillin 250 mg GT QID for UTI. Pt's told Dr Edwards that pt has pain when he voids and she noticed whitish discharge from pt's urethra.
--- NOTE | 2018-10-27 16:00 | NUR ---
Informed Dr Edwards that according to [facility], there is no available Ampicillin 250 mg, they only have 500 mg. [facility] also said that the Ampicillin can be changed to Amoxicillin 250 mg. Spoke with Sondra of Dr Edwards's office. She said she will relay the message since Dr Edwards is busy seeing patients.
--- NOTE | 2018-10-27 16:50 | NUR ---
Dr Edwards ordered to DC Ampicillin and give Amoxicillin 250 mg GT QID for UTI.
[2018-10-27] MEDS ORDERED: AMPICILLIN TRIHYDRATE 250 MG CAPSULE NG SCH (17:00)
--- NOTE | 2018-10-27 17:50 | NUR ---
Informed Dr Edwards that according to pharmacy, Amoxicillin 250 mg GT should be given q 8 [address] instead of QID. Dr Edwards ordered to change frequency to q 8 hours.
[2018-10-27] MEDS: AMOXICILLIN TRIHYDRATE 250 MG CAPSULE GT SCH (18:38)
[2018-10-27] MEDS: HYDROCODONE/APAP 7.5/325MG 1 EACH TABLET GT PRN (20:14)
[2018-10-27 20:30] VITALS: BP 127/77
--- NOTE | 2018-10-27 20:51 | NUR ---
RT NOTE PATIENT RECEIVED TRACHED ON ROOM AIR. PLACED PATIENT ON COOL AEROSOL @ 28%. AMBU BAG/BACK UP TRACH @ BEDSIDE. TX GIVEN, NO ADVERSE REACTIONS NOTED. SX DONE, TRACH SECURED AND PATENT. NO DISTRESS NOTED. PATIENT STABLE. WATER LEVEL GOOD. WILL MONITOR. Addendum: 10/27/18 at 2052 by CHRISTIANO MCCALL RT Amended: Links added.
[2018-10-27] MEDS: LATANOPROST EYE DROP 0.005% 2.5 ML BOTTLE EACHEYE SCH (21:06)
[2018-10-27] MEDS: BENAZEPRIL HCL 5 MG TABLET GT SCH (21:06)
[2018-10-27] MEDS: LORATADINE 10 MG TABLET GT SCH (21:06)
[2018-10-27] MEDS: PRAVASTATIN SODIUM 20 MG TABLET GT SCH (21:06)
[2018-10-28] MEDS: IPRATROPIUM NEB FS 0.5 MG/2.5 ML AMPUL.NEB NEB SCH ×4 (02:01→20:03)
[2018-10-28] MEDS: AMOXICILLIN TRIHYDRATE 250 MG CAPSULE GT SCH ×3 (02:20→17:34)
[2018-10-28] MEDS: JEVITY 1.2 CAL 1,000 ML BOTTLE GT PRN (05:19)
[2018-10-28] MEDS: MAGNESIUM HYDROXIDE 30 ML UDC GT PRN (05:19)
[2018-10-28] MEDS: CHLORHEXIDINE GLUCONATE 15 ML UDC MM SCH ×2 (05:19→17:34)
[2018-10-28 07:15] LABS: CALCIUM, SERUM 8.2 mg/dL (8.5-10.1); CARBON DIOXIDE 29 mmol/L (21-32); CHLORIDE 98 mmol/L (98-107); CREATININE 0.8 mg/dL (0.6-1.3); GLUCOSE 92 mg/dL (74-106); POTASSIUM 3.8 mmol/L (3.5-5.1); SODIUM SERUM 132 mmol/L (136-145); UREA NITROGEN, BLOOD 20 mg/dL (7-18)
[2018-10-28 07:56] VITALS: BP 129/74
[2018-10-28] MEDS: FUROSEMIDE SOLN 40 MG/5 ML UDC GT SCH (08:42)
[2018-10-28] MEDS: VITS A AND D/WHITE PET/LANOLIN 5 GM PACKET TP SCH ×4 (08:42→20:34)
[2018-10-28] MEDS: Z GUARD REMEDY 4 OZ OINT TP SCH ×2 (08:42→20:34)
[2018-10-28] MEDS: HYDROGEN PEROXIDE 480 ML BOTTLE TP SCH ×2 (08:42→20:34)
[2018-10-28] MEDS: CHOLECALCIFEROL (VITAMIN D 3) 400 UNIT TABLET GT SCH ×2 (08:42→20:34)
[2018-10-28] MEDS: POTASSIUM CHLORIDE GT SCH (08:42)
[2018-10-28] MEDS: FINASTERIDE (5 MG) 5 MG TABLET GT SCH (08:42)
[2018-10-28] MEDS: ASPIRIN 81 MG TAB.CHEW GT SCH (08:42)
[2018-10-28] MEDS: RIFAXIMIN 550 MG TABLET GT SCH ×2 (08:42→17:34)
[2018-10-28] MEDS: BIOTIN 5000 MCG GT SCH (08:42)
[2018-10-28] MEDS: DICLOFENAC TOPICAL 100 GM GEL..GM. TP SCH ×2 (08:43→17:34)
[2018-10-28] MEDS: VITAMINS A AND D 56.7 GM TUBE TP SCH ×2 (08:43→20:34)
[2018-10-28] MEDS: PRUNE JUICE GT SCH (11:00)
[2018-10-28] MEDS: [UNRECOGNIZED DRUG - OTHER] TP SCH ×2 (12:42→20:34)
--- NOTE | 2018-10-28 14:30 | NUR ---
INTERDISCIPLINARY TEAM CONFERENCE was held today. Resident's attended the mtg. Dr. Mejia and the interdisciplinary team reviewed the current plan of care in detail. Orders as well as treatment and medications were reviewed. Patient's has concern about the boots patient is using being tight. PT will reassess. Otherwise patient is urinating well, no adverse reaction from current ATB.
[2018-10-28 19:37] VITALS: BP 141/86
[2018-10-28] MEDS: LATANOPROST EYE DROP 0.005% 2.5 ML BOTTLE EACHEYE SCH (21:14)
[2018-10-28] MEDS: LORATADINE 10 MG TABLET GT SCH (21:14)
[2018-10-28] MEDS: PRAVASTATIN SODIUM 20 MG TABLET GT SCH (21:14)
[2018-10-28] MEDS: BENAZEPRIL HCL 5 MG TABLET GT SCH (21:14)
[2018-10-28] MEDS: HYDROCODONE/APAP 7.5/325MG 1 EACH TABLET GT PRN (23:54)
[2018-10-28] MEDS: GLYCOPYRROLATE 1 MG TABLET GT PRN (23:54)
[2018-10-29] MEDS: IPRATROPIUM NEB FS 0.5 MG/2.5 ML AMPUL.NEB NEB SCH ×4 (01:59→19:37)
[2018-10-29] MEDS: AMOXICILLIN TRIHYDRATE 250 MG CAPSULE GT SCH ×3 (02:00→18:52)
[2018-10-29] MEDS: CHLORHEXIDINE GLUCONATE 15 ML UDC MM SCH ×2 (05:12→18:52)
[2018-10-29 07:40] VITALS: BP 134/78
[2018-10-29] MEDS: POTASSIUM CHLORIDE GT SCH (08:23)
[2018-10-29] MEDS: FUROSEMIDE SOLN 40 MG/5 ML UDC GT SCH (08:25)
[2018-10-29] MEDS: BIOTIN 5000 MCG GT SCH (08:25)
[2018-10-29] MEDS: FINASTERIDE (5 MG) 5 MG TABLET GT SCH (08:26)
[2018-10-29] MEDS: RIFAXIMIN 550 MG TABLET GT SCH ×2 (08:26→16:28)
[2018-10-29] MEDS: JEVITY 1.2 CAL 1,000 ML BOTTLE GT PRN (08:26)
[2018-10-29] MEDS: CHOLECALCIFEROL (VITAMIN D 3) 400 UNIT TABLET GT SCH ×2 (08:29→20:25)
[2018-10-29] MEDS: DICLOFENAC TOPICAL 100 GM GEL..GM. TP SCH ×2 (09:00→16:28)
[2018-10-29] MEDS: HYDROGEN PEROXIDE 480 ML BOTTLE TP SCH ×2 (09:00→20:25)
[2018-10-29] MEDS: VITAMINS A AND D 56.7 GM TUBE TP SCH ×2 (09:00→20:26)
[2018-10-29] MEDS: VITS A AND D/WHITE PET/LANOLIN 5 GM PACKET TP SCH ×4 (09:00→20:26)
[2018-10-29] MEDS: Z GUARD REMEDY 4 OZ OINT TP SCH ×2 (09:00→20:25)
[2018-10-29] MEDS: PRUNE JUICE GT SCH (11:00)
[2018-10-29] MEDS: [UNRECOGNIZED DRUG - OTHER] TP SCH ×2 (13:04→20:25)
--- NOTE | 2018-10-29 14:44 | NUR ---
Seen and examined by Dr. Edwards, aware of the BMP result taken yesterday, Na+132, BUN 20. New order given to DC Lasix and decrease water flush to 250 ml. Q 6 hours. Resident's not in the room at this time, will inform of new order when she returns.
[2018-10-29] MEDS: HYDROCODONE/APAP 7.5/325MG 1 EACH TABLET GT PRN (19:45)
[2018-10-29] MEDS: GLYCOPYRROLATE 1 MG TABLET GT PRN (19:45)
[2018-10-29 19:50] VITALS: BP 136/77
[2018-10-29] MEDS: LATANOPROST EYE DROP 0.005% 2.5 ML BOTTLE EACHEYE SCH (21:09)
[2018-10-29] MEDS: LORATADINE 10 MG TABLET GT SCH (21:10)
[2018-10-29] MEDS: PRAVASTATIN SODIUM 20 MG TABLET GT SCH (21:10)
[2018-10-29] MEDS: BENAZEPRIL HCL 5 MG TABLET GT SCH (21:10)
[2018-10-30] MEDS: IPRATROPIUM NEB FS 0.5 MG/2.5 ML AMPUL.NEB NEB SCH ×4 (01:20→19:30)
[2018-10-30] MEDS: AMOXICILLIN TRIHYDRATE 250 MG CAPSULE GT SCH ×3 (02:00→17:55)
[2018-10-30] MEDS: GLYCOPYRROLATE 1 MG TABLET GT PRN (04:51)
[2018-10-30] MEDS: CHLORHEXIDINE GLUCONATE 15 ML UDC MM SCH ×2 (05:12→17:55)
[2018-10-30 07:42] VITALS: BP 130/71
[2018-10-30] MEDS: RIFAXIMIN 550 MG TABLET GT SCH ×2 (08:30→17:55)
[2018-10-30] MEDS: POTASSIUM CHLORIDE GT SCH (08:30)
[2018-10-30] MEDS: FINASTERIDE (5 MG) 5 MG TABLET GT SCH (08:30)
[2018-10-30] MEDS: ASPIRIN 81 MG TAB.CHEW GT SCH (08:30)
[2018-10-30] MEDS: CHOLECALCIFEROL (VITAMIN D 3) 400 UNIT TABLET GT SCH ×2 (08:30→21:12)
[2018-10-30] MEDS ORDERED: TUBERCULIN,PURIF.PROT.DERIV. 5 TU/0.1 ML VIAL ID SCH (09:00)
[2018-10-30] MEDS: DICLOFENAC TOPICAL 100 GM GEL..GM. TP SCH ×2 (09:00→17:55)
[2018-10-30] MEDS: BIOTIN 5000 MCG GT SCH (09:00)
[2018-10-30] MEDS: Z GUARD REMEDY 4 OZ OINT TP SCH ×2 (09:00→21:12)
[2018-10-30] MEDS: HYDROGEN PEROXIDE 480 ML BOTTLE TP SCH ×2 (09:00→21:12)
[2018-10-30] MEDS: VITAMINS A AND D 56.7 GM TUBE TP SCH ×2 (09:00→21:12)
[2018-10-30] MEDS: VITS A AND D/WHITE PET/LANOLIN 5 GM PACKET TP SCH ×4 (09:00→21:12)
[2018-10-30] MEDS: PRUNE JUICE GT SCH (11:00)
[2018-10-30] MEDS: [UNRECOGNIZED DRUG - OTHER] TP SCH ×2 (12:46→21:12)
[2018-10-30] MEDS: JEVITY 1.2 CAL 1,000 ML BOTTLE GT PRN (17:55)
[2018-10-30 20:28] VITALS: BP 138/86
[2018-10-30] MEDS: LATANOPROST EYE DROP 0.005% 2.5 ML BOTTLE EACHEYE SCH (21:12)
[2018-10-30] MEDS: LORATADINE 10 MG TABLET GT SCH (21:12)
[2018-10-30] MEDS: BENAZEPRIL HCL 5 MG TABLET GT SCH (21:13)
[2018-10-30] MEDS: PRAVASTATIN SODIUM 20 MG TABLET GT SCH (21:13)
[2018-10-31] MEDS: AMOXICILLIN TRIHYDRATE 250 MG CAPSULE GT SCH ×3 (02:00→18:11)
[2018-10-31] MEDS: IPRATROPIUM NEB FS 0.5 MG/2.5 ML AMPUL.NEB NEB SCH ×4 (02:13→19:32)
[2018-10-31] MEDS: CHLORHEXIDINE GLUCONATE 15 ML UDC MM SCH ×2 (05:39→18:11)
[2018-10-31 07:40] VITALS: BP 145/74
[2018-10-31] MEDS: VITS A AND D/WHITE PET/LANOLIN 5 GM PACKET TP SCH ×4 (08:37→20:31)
[2018-10-31] MEDS: BIOTIN 5000 MCG GT SCH (08:37)
[2018-10-31] MEDS: DICLOFENAC TOPICAL 100 GM GEL..GM. TP SCH ×2 (08:37→16:22)
[2018-10-31] MEDS: Z GUARD REMEDY 4 OZ OINT TP SCH ×2 (08:37→20:31)
[2018-10-31] MEDS: CHOLECALCIFEROL (VITAMIN D 3) 400 UNIT TABLET GT SCH ×2 (08:37→20:31)
[2018-10-31] MEDS: HYDROGEN PEROXIDE 480 ML BOTTLE TP SCH ×2 (08:37→20:31)
[2018-10-31] MEDS: FINASTERIDE (5 MG) 5 MG TABLET GT SCH (08:37)
[2018-10-31] MEDS: VITAMINS A AND D 56.7 GM TUBE TP SCH ×2 (08:37→20:31)
[2018-10-31] MEDS: POTASSIUM CHLORIDE GT SCH (08:37)
[2018-10-31] MEDS: RIFAXIMIN 550 MG TABLET GT SCH ×2 (08:37→16:22)
[2018-10-31] MEDS: PRUNE JUICE GT SCH (11:00)
[2018-10-31] MEDS: [UNRECOGNIZED DRUG - OTHER] TP SCH ×2 (13:00→20:31)
--- NOTE | 2018-10-31 13:37 | NUR ---
Pt has a podiatry appoint on 11/04/18
[2018-10-31] MEDS: JEVITY 1.2 CAL 1,000 ML BOTTLE GT PRN (18:11)
[2018-10-31 20:43] VITALS: BP 134/89
[2018-10-31] MEDS: BENAZEPRIL HCL 5 MG TABLET GT SCH (21:31)
[2018-10-31] MEDS: LORATADINE 10 MG TABLET GT SCH (21:31)
[2018-10-31] MEDS: PRAVASTATIN SODIUM 20 MG TABLET GT SCH (21:31)
[2018-10-31] MEDS: LATANOPROST EYE DROP 0.005% 2.5 ML BOTTLE EACHEYE SCH (21:31)
[2018-10-31] MEDS: HYDROCODONE/APAP 7.5/325MG 1 EACH TABLET GT PRN (21:34)
[2018-11-01] MEDS: IPRATROPIUM NEB FS 0.5 MG/2.5 ML AMPUL.NEB NEB SCH ×4 (01:20→19:35)
[2018-11-01] MEDS: AMOXICILLIN TRIHYDRATE 250 MG CAPSULE GT SCH ×2 (02:00→10:00)
[2018-11-01] MEDS: CHLORHEXIDINE GLUCONATE 15 ML UDC MM SCH ×2 (05:41→18:20)
[2018-11-01 07:36] VITALS: BP 129/74
[2018-11-01] MEDS: ASPIRIN 81 MG TAB.CHEW GT SCH (08:27)
[2018-11-01] MEDS: FINASTERIDE (5 MG) 5 MG TABLET GT SCH (08:27)
[2018-11-01] MEDS: CHOLECALCIFEROL (VITAMIN D 3) 400 UNIT TABLET GT SCH ×2 (08:27→21:36)
[2018-11-01] MEDS: RIFAXIMIN 550 MG TABLET GT SCH ×2 (08:27→17:00)
[2018-11-01] MEDS: POTASSIUM CHLORIDE GT SCH (08:27)
[2018-11-01] MEDS: BIOTIN 5000 MCG GT SCH (08:27)
[2018-11-01] MEDS: Z GUARD REMEDY 4 OZ OINT TP SCH ×2 (09:00→21:37)
[2018-11-01] MEDS: VITAMINS A AND D 56.7 GM TUBE TP SCH ×2 (09:00→21:38)
[2018-11-01] MEDS: DICLOFENAC TOPICAL 100 GM GEL..GM. TP SCH ×2 (09:00→17:00)
[2018-11-01] MEDS: VITS A AND D/WHITE PET/LANOLIN 5 GM PACKET TP SCH ×4 (09:00→21:38)
[2018-11-01] MEDS: HYDROGEN PEROXIDE 480 ML BOTTLE TP SCH ×2 (09:00→21:37)
[2018-11-01] MEDS: PRUNE JUICE GT SCH (11:00)
[2018-11-01] MEDS: [UNRECOGNIZED DRUG - OTHER] TP SCH ×2 (13:00→21:37)
[2018-11-01 20:46] VITALS: BP 135/87
[2018-11-01] MEDS: LORATADINE 10 MG TABLET GT SCH (21:38)
[2018-11-01] MEDS: LATANOPROST EYE DROP 0.005% 2.5 ML BOTTLE EACHEYE SCH (21:38)
[2018-11-01] MEDS: BENAZEPRIL HCL 5 MG TABLET GT SCH (21:39)
[2018-11-01] MEDS: PRAVASTATIN SODIUM 20 MG TABLET GT SCH (21:39)
[2018-11-02] MEDS: IPRATROPIUM NEB FS 0.5 MG/2.5 ML AMPUL.NEB NEB SCH ×4 (01:49→19:52)
[2018-11-02] MEDS: CHLORHEXIDINE GLUCONATE 15 ML UDC MM SCH ×2 (05:24→17:14)
[2018-11-02 07:47] VITALS: BP 121/63
[2018-11-02] MEDS: FINASTERIDE (5 MG) 5 MG TABLET GT SCH (08:51)
[2018-11-02] MEDS: CHOLECALCIFEROL (VITAMIN D 3) 400 UNIT TABLET GT SCH ×2 (08:51→21:16)
[2018-11-02] MEDS: POTASSIUM CHLORIDE GT SCH (08:51)
[2018-11-02] MEDS: RIFAXIMIN 550 MG TABLET GT SCH ×2 (08:51→17:14)
[2018-11-02] MEDS: BIOTIN 5000 MCG GT SCH (08:51)
[2018-11-02] MEDS: VITAMINS A AND D 56.7 GM TUBE TP SCH ×2 (09:00→21:17)
[2018-11-02] MEDS: Z GUARD REMEDY 4 OZ OINT TP SCH ×2 (09:00→21:16)
[2018-11-02] MEDS: HYDROGEN PEROXIDE 480 ML BOTTLE TP SCH ×2 (09:00→21:16)
[2018-11-02] MEDS: VITS A AND D/WHITE PET/LANOLIN 5 GM PACKET TP SCH ×4 (09:00→21:17)
[2018-11-02] MEDS: DICLOFENAC TOPICAL 100 GM GEL..GM. TP SCH ×2 (09:00→17:15)
[2018-11-02] MEDS: PRUNE JUICE GT SCH (11:00)
--- NOTE | 2018-11-02 12:08 | NUR ---
Seen and examined by Dr. Jerry rain.
[2018-11-02] MEDS: [UNRECOGNIZED DRUG - OTHER] TP SCH ×2 (13:00→21:16)
[2018-11-02 20:44] VITALS: BP 143/84
[2018-11-02] MEDS: BENAZEPRIL HCL 5 MG TABLET GT SCH (21:17)
[2018-11-02] MEDS: LATANOPROST EYE DROP 0.005% 2.5 ML BOTTLE EACHEYE SCH (21:17)
[2018-11-02] MEDS: LORATADINE 10 MG TABLET GT SCH (21:17)
[2018-11-02] MEDS: PRAVASTATIN SODIUM 20 MG TABLET GT SCH (21:17)
[2018-11-03] MEDS: IPRATROPIUM NEB FS 0.5 MG/2.5 ML AMPUL.NEB NEB SCH ×4 (01:49→19:48)
[2018-11-03] MEDS: CHLORHEXIDINE GLUCONATE 15 ML UDC MM SCH ×2 (05:04→18:26)
[2018-11-03 08:21] VITALS: BP 144/67
[2018-11-03] MEDS: RIFAXIMIN 550 MG TABLET GT SCH ×2 (08:26→16:44)
[2018-11-03] MEDS: VITAMINS A AND D 56.7 GM TUBE TP SCH ×2 (08:26→20:00)
[2018-11-03] MEDS: POTASSIUM CHLORIDE GT SCH (08:26)
[2018-11-03] MEDS: FINASTERIDE (5 MG) 5 MG TABLET GT SCH (08:26)
[2018-11-03] MEDS: VITS A AND D/WHITE PET/LANOLIN 5 GM PACKET TP SCH ×4 (08:26→20:00)
[2018-11-03] MEDS: CHOLECALCIFEROL (VITAMIN D 3) 400 UNIT TABLET GT SCH ×2 (08:26→20:00)
[2018-11-03] MEDS: ASPIRIN 81 MG TAB.CHEW GT SCH (08:26)
[2018-11-03] MEDS: HYDROGEN PEROXIDE 480 ML BOTTLE TP SCH ×2 (08:26→20:00)
[2018-11-03] MEDS: BIOTIN 5000 MCG GT SCH (08:26)
[2018-11-03] MEDS: Z GUARD REMEDY 4 OZ OINT TP SCH ×2 (08:26→20:00)
[2018-11-03] MEDS: DICLOFENAC TOPICAL 100 GM GEL..GM. TP SCH ×2 (08:26→16:44)
[2018-11-03] MEDS ORDERED: ACETAMINOPHEN 160 MG/5 ML ONE (08:58)
[2018-11-03] MEDS ORDERED: ACETAMINOPHEN 650 MG/20.3 ML UDC ONE (08:59)
[2018-11-03] MEDS: PRUNE JUICE GT SCH (11:00)
[2018-11-03] MEDS: [UNRECOGNIZED DRUG - OTHER] TP SCH ×2 (13:58→20:00)
[2018-11-03 19:57] VITALS: BP 134/66
--- NOTE | 2018-11-03 19:58 | NUR ---
RT NOTE: RECEIVED TRACH PT ON ROOM AIR. PLACE PT BACK ON COOL AEROSOL. AMBU BAG @ BEDSIDE. Q6 BREATHING TX GIVEN PER MD ORDERS WITH NO ADVERSE REACTION NOTED. SX DONE PRN. TRACH PATENT AND SECURED. NO RESP DISTRESS NOTED AT THIS TIME. WILL CONTINUE TO MONITOR PT. Addendum: 11/04/18 at 0212 by LINNEA TOVAR RT Amended: Links added.
[2018-11-03] MEDS: GLYCOPYRROLATE 1 MG TABLET GT PRN (20:00)
[2018-11-03] MEDS: HYDROCODONE/APAP 7.5/325MG 1 EACH TABLET GT PRN (20:01)
[2018-11-03] MEDS: LORATADINE 10 MG TABLET GT SCH (21:20)
[2018-11-03] MEDS: BENAZEPRIL HCL 5 MG TABLET GT SCH (21:20)
[2018-11-03] MEDS: PRAVASTATIN SODIUM 20 MG TABLET GT SCH (21:20)
[2018-11-03] MEDS: LATANOPROST EYE DROP 0.005% 2.5 ML BOTTLE EACHEYE SCH (21:20)
[2018-11-04] MEDS: IPRATROPIUM NEB FS 0.5 MG/2.5 ML AMPUL.NEB NEB SCH ×4 (01:07→19:57)
[2018-11-04] MEDS: JEVITY 1.2 CAL 1,000 ML BOTTLE GT PRN ×2 (05:37→18:29)
[2018-11-04] MEDS: SIMETHICONE SUSP 40 MG/0.6 ML BOTTLE GT PRN (05:37)
[2018-11-04] MEDS: CHLORHEXIDINE GLUCONATE 15 ML UDC MM SCH ×2 (05:37→18:28)
[2018-11-04] MEDS: GLYCOPYRROLATE 1 MG TABLET GT PRN (05:38)
[2018-11-04] MEDS: MAGNESIUM HYDROXIDE 30 ML UDC GT PRN (05:38)
[2018-11-04 07:34] VITALS: BP 132/73
--- NOTE | 2018-11-04 08:20 | NUR ---
Seen and examined by Dr. Jerry rain.
[2018-11-04] MEDS: POTASSIUM CHLORIDE GT SCH (08:34)
[2018-11-04] MEDS: RIFAXIMIN 550 MG TABLET GT SCH ×2 (08:34→16:38)
[2018-11-04] MEDS: BIOTIN 5000 MCG GT SCH (08:34)
[2018-11-04] MEDS: CHOLECALCIFEROL (VITAMIN D 3) 400 UNIT TABLET GT SCH ×2 (08:34→20:46)
[2018-11-04] MEDS: FINASTERIDE (5 MG) 5 MG TABLET GT SCH (08:34)
[2018-11-04] MEDS: VITAMINS A AND D 56.7 GM TUBE TP SCH ×2 (08:35→21:31)
[2018-11-04] MEDS: HYDROGEN PEROXIDE 480 ML BOTTLE TP SCH ×2 (08:35→20:47)
[2018-11-04] MEDS: DICLOFENAC TOPICAL 100 GM GEL..GM. TP SCH ×2 (08:35→16:38)
[2018-11-04] MEDS: VITS A AND D/WHITE PET/LANOLIN 5 GM PACKET TP SCH ×4 (08:35→21:31)
[2018-11-04] MEDS: Z GUARD REMEDY 4 OZ OINT TP SCH ×2 (08:35→20:47)
[2018-11-04] MEDS: PRUNE JUICE GT SCH (11:00)
[2018-11-04] MEDS: HYDROCODONE/APAP 7.5/325MG 1 EACH TABLET GT PRN ×2 (13:50→18:29)
[2018-11-04] MEDS: [UNRECOGNIZED DRUG - OTHER] TP SCH ×2 (13:50→21:31)
[2018-11-04 19:40] VITALS: BP 119/65
--- NOTE | 2018-11-04 20:54 | NUR ---
RT PT REC'D TRACH ON ROOM AIR. PLACE PT BACK ON COOL AEROSOL. AMBU BAG @ BEDSIDE. Q6 BREATHING TX GIVEN PER MD ORDERS WITH NO ADVERSE REACTION NOTED. SX DONE PRN. TRACH PATENT AND SECURED. NO RESP DISTRESS NOTED AT THIS TIME. WILL CONTINUE TO MONITOR. Addendum: 11/04/18 at 2054 by KRYSTLE ELIZABETH RT Amended: Links added.
[2018-11-04] MEDS: LORATADINE 10 MG TABLET GT SCH (21:30)
[2018-11-04] MEDS: LATANOPROST EYE DROP 0.005% 2.5 ML BOTTLE EACHEYE SCH (21:30)
[2018-11-04] MEDS: PRAVASTATIN SODIUM 20 MG TABLET GT SCH (21:31)
[2018-11-04] MEDS: BENAZEPRIL HCL 5 MG TABLET GT SCH (21:31)
[2018-11-05] MEDS: IPRATROPIUM NEB FS 0.5 MG/2.5 ML AMPUL.NEB NEB SCH ×5 (01:30→19:30)
[2018-11-05] MEDS: CHLORHEXIDINE GLUCONATE 15 ML UDC MM SCH ×2 (05:08→17:28)
[2018-11-05 07:30] VITALS: BP 113/77
[2018-11-05] MEDS: HYDROCODONE/APAP 7.5/325MG 1 EACH TABLET GT PRN ×2 (07:34→20:01)
[2018-11-05 08:04] LABS: CALCIUM, SERUM 8.5 mg/dL (8.5-10.1); CARBON DIOXIDE 27 mmol/L (21-32); CHLORIDE 100 mmol/L (98-107); CREATININE 0.7 mg/dL (0.6-1.3); GLUCOSE 119 mg/dL (74-106); SODIUM SERUM 135 mmol/L (136-145); UREA NITROGEN, BLOOD 17 mg/dL (7-18)
[2018-11-05] MEDS: VITAMINS A AND D 56.7 GM TUBE TP SCH ×2 (09:00→20:01)
[2018-11-05] MEDS: DICLOFENAC TOPICAL 100 GM GEL..GM. TP SCH ×2 (09:00→17:28)
[2018-11-05] MEDS: VITS A AND D/WHITE PET/LANOLIN 5 GM PACKET TP SCH ×4 (09:00→20:01)
[2018-11-05] MEDS: HYDROGEN PEROXIDE 480 ML BOTTLE TP SCH ×2 (09:00→20:01)
[2018-11-05] MEDS: Z GUARD REMEDY 4 OZ OINT TP SCH ×2 (09:00→20:01)
[2018-11-05] MEDS: ASPIRIN 81 MG TAB.CHEW GT SCH (09:15)
[2018-11-05] MEDS: FINASTERIDE (5 MG) 5 MG TABLET GT SCH (09:16)
[2018-11-05] MEDS: JEVITY 1.2 CAL 1,000 ML BOTTLE GT PRN (09:16)
[2018-11-05] MEDS: CHOLECALCIFEROL (VITAMIN D 3) 400 UNIT TABLET GT SCH ×2 (09:16→20:01)
[2018-11-05] MEDS: RIFAXIMIN 550 MG TABLET GT SCH ×2 (09:16→17:28)
[2018-11-05] MEDS: BIOTIN 5000 MCG GT SCH (09:16)
[2018-11-05] MEDS: POTASSIUM CHLORIDE GT SCH (09:16)
[2018-11-05] MEDS: PRUNE JUICE GT SCH (11:00)
--- NOTE | 2018-11-05 11:38 | NUR ---
Left a message to Dr. Edwards regarding BMP result.
[2018-11-05] MEDS: [UNRECOGNIZED DRUG - OTHER] TP SCH ×2 (12:54→20:01)
[2018-11-05] MEDS: MAGNESIUM HYDROXIDE 30 ML UDC GT PRN (12:54)
[2018-11-05 19:41] VITALS: BP 148/89
[2018-11-05] MEDS: GLYCOPYRROLATE 1 MG TABLET GT PRN (20:02)
[2018-11-05] MEDS: LORATADINE 10 MG TABLET GT SCH (21:12)
[2018-11-05] MEDS: LATANOPROST EYE DROP 0.005% 2.5 ML BOTTLE EACHEYE SCH (21:12)
[2018-11-05] MEDS: BENAZEPRIL HCL 5 MG TABLET GT SCH (21:12)
[2018-11-05] MEDS: PRAVASTATIN SODIUM 20 MG TABLET GT SCH (21:12)
[2018-11-06] MEDS: IPRATROPIUM NEB FS 0.5 MG/2.5 ML AMPUL.NEB NEB SCH ×4 (01:40→19:43)
[2018-11-06] MEDS: CHLORHEXIDINE GLUCONATE 15 ML UDC MM SCH ×2 (05:08→17:46)
[2018-11-06] MEDS: JEVITY 1.2 CAL 1,000 ML BOTTLE GT PRN (05:08)
[2018-11-06 07:54] VITALS: BP 154/95
[2018-11-06] MEDS: BIOTIN 5000 MCG GT SCH (09:00)
[2018-11-06] MEDS: CHOLECALCIFEROL (VITAMIN D 3) 400 UNIT TABLET GT SCH ×2 (09:00→21:11)
[2018-11-06] MEDS: VITS A AND D/WHITE PET/LANOLIN 5 GM PACKET TP SCH ×4 (09:00→21:12)
[2018-11-06] MEDS: HYDROGEN PEROXIDE 480 ML BOTTLE TP SCH ×2 (09:00→21:11)
[2018-11-06] MEDS: VITAMINS A AND D 56.7 GM TUBE TP SCH ×2 (09:00→21:12)
[2018-11-06] MEDS: DICLOFENAC TOPICAL 100 GM GEL..GM. TP SCH ×2 (09:00→17:46)
[2018-11-06] MEDS: POTASSIUM CHLORIDE GT SCH (09:00)
[2018-11-06] MEDS: RIFAXIMIN 550 MG TABLET GT SCH ×2 (09:00→17:46)
[2018-11-06] MEDS: Z GUARD REMEDY 4 OZ OINT TP SCH ×2 (09:00→21:12)
[2018-11-06] MEDS: FINASTERIDE (5 MG) 5 MG TABLET GT SCH (09:00)
[2018-11-06] MEDS: PRUNE JUICE GT SCH (11:28)
[2018-11-06] MEDS: [UNRECOGNIZED DRUG - OTHER] TP SCH ×2 (12:40→21:11)
--- NOTE | 2018-11-06 14:10 | NUR ---
SECURITY SOLUTIONS ENGINEER taking care of the patient reported to this nurse that when they asked patient's daughter who is at the bedside to step out while doing patient care she refused and said "no, we have a permission from the court to be here." Went in the patient's room and explained to daughter Denise, that it has been our protocol that when SECURITY SOLUTIONS ENGINEER's are providing care, family members are waiting outside the room and if they are not satisfied with the care after they are done (i.e. positioning) they inform the SECURITY SOLUTIONS ENGINEER assigned and adjust the position the way family prefers. She said the they have a conservatorship over their father and therefore answerable to the probate officer and should know what is going on with the patient and how care is being provided. She also added that they (family) will speak with CNO to discuss about this. Although she verbalized understanding, suggested to speak with CNO, social service director and nurse grievance manager for clarification.
--- NOTE | 2018-11-06 15:00 | NUR ---
Seen and examined by Dr. Edwards, resident's daughter Denise at bedside, NNO given.
--- NOTE | 2018-11-06 19:54 | NUR ---
RT NOTE: RECEIVED TRACH PT ON ROOM AIR. PLACED PT BACK ON COOL AEROSOL. AMBU BAG @ BEDSIDE. Q6 BREATHING TX GIVEN PER MD ORDERS WITH NO ADVERSE REACTION NOTED. SX DONE PRN. TRACH PATENT AND SECURED. NO RESP DISTRESS NOTED AT THIS TIME. WILL CONTINUE TO MONITOR PT. Addendum: 11/07/18 at 0427 by LINNEA TOVAR RT Amended: Links added.
[2018-11-06 20:25] VITALS: BP 138/77
[2018-11-06] MEDS: BENAZEPRIL HCL 5 MG TABLET GT SCH (21:12)
[2018-11-06] MEDS: PRAVASTATIN SODIUM 20 MG TABLET GT SCH (21:12)
[2018-11-06] MEDS: LORATADINE 10 MG TABLET GT SCH (21:12)
[2018-11-06] MEDS: LATANOPROST EYE DROP 0.005% 2.5 ML BOTTLE EACHEYE SCH (21:12)
[2018-11-06] MEDS: MAGNESIUM HYDROXIDE 30 ML UDC GT PRN (21:57)
[2018-11-07] MEDS: IPRATROPIUM NEB FS 0.5 MG/2.5 ML AMPUL.NEB NEB SCH ×4 (00:54→19:22)
[2018-11-07] MEDS: CHLORHEXIDINE GLUCONATE 15 ML UDC MM SCH ×2 (06:11→17:38)
[2018-11-07] MEDS: JEVITY 1.2 CAL 1,000 ML BOTTLE GT PRN (07:34)
[2018-11-07 08:04] VITALS: BP 127/82
[2018-11-07] MEDS: RIFAXIMIN 550 MG TABLET GT SCH ×2 (08:20→17:38)
[2018-11-07] MEDS: BIOTIN 5000 MCG GT SCH (08:20)
[2018-11-07] MEDS: ASPIRIN 81 MG TAB.CHEW GT SCH (08:20)
[2018-11-07] MEDS: CHOLECALCIFEROL (VITAMIN D 3) 400 UNIT TABLET GT SCH ×2 (08:20→21:10)
[2018-11-07] MEDS: POTASSIUM CHLORIDE GT SCH (08:20)
[2018-11-07] MEDS: FINASTERIDE (5 MG) 5 MG TABLET GT SCH (08:20)
[2018-11-07] MEDS: ACETAMINOPHEN 650 MG/20 ML UDC- SA PATIENTS-PAIN ONLY GT PRN (08:21)
[2018-11-07] MEDS: DICLOFENAC TOPICAL 100 GM GEL..GM. TP SCH ×2 (09:00→17:38)
[2018-11-07] MEDS: VITAMINS A AND D 56.7 GM TUBE TP SCH ×2 (09:00→21:10)
[2018-11-07] MEDS: HYDROGEN PEROXIDE 480 ML BOTTLE TP SCH ×2 (09:00→21:10)
[2018-11-07] MEDS: VITS A AND D/WHITE PET/LANOLIN 5 GM PACKET TP SCH ×4 (09:00→21:10)
[2018-11-07] MEDS: Z GUARD REMEDY 4 OZ OINT TP SCH ×2 (09:00→21:10)
[2018-11-07] MEDS: PRUNE JUICE GT SCH (11:00)
[2018-11-07] MEDS: MAGNESIUM HYDROXIDE 30 ML UDC GT PRN (12:30)
[2018-11-07] MEDS: [UNRECOGNIZED DRUG - OTHER] TP SCH ×2 (12:49→21:10)
[2018-11-07 20:44] VITALS: BP 131/78
[2018-11-07] MEDS: PRAVASTATIN SODIUM 20 MG TABLET GT SCH (21:11)
[2018-11-07] MEDS: LATANOPROST EYE DROP 0.005% 2.5 ML BOTTLE EACHEYE SCH (21:11)
[2018-11-07] MEDS: LORATADINE 10 MG TABLET GT SCH (21:11)
[2018-11-07] MEDS: BENAZEPRIL HCL 5 MG TABLET GT SCH (21:11)
[2018-11-08] MEDS: IPRATROPIUM NEB FS 0.5 MG/2.5 ML AMPUL.NEB NEB SCH ×4 (00:59→19:40)
[2018-11-08] MEDS: CHLORHEXIDINE GLUCONATE 15 ML UDC MM SCH ×2 (05:34→17:46)
[2018-11-08] MEDS: JEVITY 1.2 CAL 1,000 ML BOTTLE GT PRN (06:14)
[2018-11-08] MEDS: DICLOFENAC TOPICAL 100 GM GEL..GM. TP SCH ×2 (09:00→17:46)
--- NOTE | 2018-11-08 09:00 | NUR ---
Seen and examined by Dr. Mejia, no new order given. Will continue with plan of care.
[2018-11-08] MEDS: POTASSIUM CHLORIDE GT SCH (09:12)
[2018-11-08] MEDS: RIFAXIMIN 550 MG TABLET GT SCH ×2 (09:12→17:46)
[2018-11-08] MEDS: FINASTERIDE (5 MG) 5 MG TABLET GT SCH (09:12)
[2018-11-08] MEDS: CHOLECALCIFEROL (VITAMIN D 3) 400 UNIT TABLET GT SCH ×2 (09:12→21:05)
[2018-11-08] MEDS: HYDROGEN PEROXIDE 480 ML BOTTLE TP SCH ×2 (09:26→21:05)
[2018-11-08] MEDS: VITS A AND D/WHITE PET/LANOLIN 5 GM PACKET TP SCH ×4 (09:26→21:05)
[2018-11-08] MEDS: VITAMINS A AND D 56.7 GM TUBE TP SCH ×2 (09:26→21:05)
[2018-11-08] MEDS: Z GUARD REMEDY 4 OZ OINT TP SCH ×2 (09:26→21:05)
[2018-11-08] MEDS: BIOTIN 5000 MCG GT SCH (09:26)
[2018-11-08] MEDS: PRUNE JUICE GT SCH (10:24)
[2018-11-08 11:50] VITALS: BP 146/89
[2018-11-08] MEDS: [UNRECOGNIZED DRUG - OTHER] TP SCH ×2 (12:39→21:05)
[2018-11-08 20:38] VITALS: BP 128/54
[2018-11-08] MEDS: LORATADINE 10 MG TABLET GT SCH (21:05)
[2018-11-08] MEDS: LATANOPROST EYE DROP 0.005% 2.5 ML BOTTLE EACHEYE SCH (21:05)
[2018-11-08] MEDS: PRAVASTATIN SODIUM 20 MG TABLET GT SCH (21:06)
[2018-11-08] MEDS: BENAZEPRIL HCL 5 MG TABLET GT SCH (21:06)
[2018-11-08] MEDS: HYDROCODONE/APAP 7.5/325MG 1 EACH TABLET GT PRN (22:59)
[2018-11-09] MEDS: IPRATROPIUM NEB FS 0.5 MG/2.5 ML AMPUL.NEB NEB SCH ×4 (00:47→19:52)
[2018-11-09] MEDS: CHLORHEXIDINE GLUCONATE 15 ML UDC MM SCH ×2 (06:10→17:17)
[2018-11-09] MEDS: JEVITY 1.2 CAL 1,000 ML BOTTLE GT PRN (06:12)
[2018-11-09 08:00] VITALS: BP 131/78
[2018-11-09] MEDS: RIFAXIMIN 550 MG TABLET GT SCH ×2 (08:22→16:08)
[2018-11-09] MEDS: ASPIRIN 81 MG TAB.CHEW GT SCH (08:22)
[2018-11-09] MEDS: POTASSIUM CHLORIDE GT SCH (08:22)
[2018-11-09] MEDS: CHOLECALCIFEROL (VITAMIN D 3) 400 UNIT TABLET GT SCH ×2 (08:22→20:25)
[2018-11-09] MEDS: HYDROGEN PEROXIDE 480 ML BOTTLE TP SCH ×2 (08:22→20:25)
[2018-11-09] MEDS: VITS A AND D/WHITE PET/LANOLIN 5 GM PACKET TP SCH ×4 (08:22→20:26)
[2018-11-09] MEDS: Z GUARD REMEDY 4 OZ OINT TP SCH ×2 (08:22→20:26)
[2018-11-09] MEDS: BIOTIN 5000 MCG GT SCH (08:22)
[2018-11-09] MEDS: FINASTERIDE (5 MG) 5 MG TABLET GT SCH (08:22)
[2018-11-09] MEDS: DICLOFENAC TOPICAL 100 GM GEL..GM. TP SCH ×2 (08:22→16:08)
[2018-11-09] MEDS: VITAMINS A AND D 56.7 GM TUBE TP SCH ×2 (08:22→20:26)
[2018-11-09] MEDS: PRUNE JUICE GT SCH (11:00)
[2018-11-09] MEDS: [UNRECOGNIZED DRUG - OTHER] TP SCH ×2 (13:00→20:26)
[2018-11-09 20:31] VITALS: BP 137/94
[2018-11-09] MEDS: HYDROCODONE/APAP 7.5/325MG 1 EACH TABLET GT PRN (20:31)
[2018-11-09] MEDS: LATANOPROST EYE DROP 0.005% 2.5 ML BOTTLE EACHEYE SCH (21:32)
[2018-11-09] MEDS: LORATADINE 10 MG TABLET GT SCH (21:32)
[2018-11-09] MEDS: BENAZEPRIL HCL 5 MG TABLET GT SCH (21:33)
[2018-11-09] MEDS: PRAVASTATIN SODIUM 20 MG TABLET GT SCH (21:33)
[2018-11-10] MEDS: JEVITY 1.2 CAL 1,000 ML BOTTLE GT PRN ×2 (01:16→18:51)
[2018-11-10] MEDS: IPRATROPIUM NEB FS 0.5 MG/2.5 ML AMPUL.NEB NEB SCH ×4 (01:40→20:13)
[2018-11-10] MEDS: CHLORHEXIDINE GLUCONATE 15 ML UDC MM SCH ×2 (05:36→17:57)
[2018-11-10] MEDS: BIOTIN 5000 MCG GT SCH (08:16)
[2018-11-10] MEDS: POTASSIUM CHLORIDE GT SCH (08:16)
[2018-11-10] MEDS: FINASTERIDE (5 MG) 5 MG TABLET GT SCH (08:16)
[2018-11-10] MEDS: CHOLECALCIFEROL (VITAMIN D 3) 400 UNIT TABLET GT SCH ×2 (08:17→21:00)
[2018-11-10] MEDS: RIFAXIMIN 550 MG TABLET GT SCH ×2 (08:17→16:39)
[2018-11-10] MEDS: HYDROGEN PEROXIDE 480 ML BOTTLE TP SCH ×2 (09:00→21:00)
[2018-11-10] MEDS: VITS A AND D/WHITE PET/LANOLIN 5 GM PACKET TP SCH ×4 (09:00→21:01)
[2018-11-10] MEDS: DICLOFENAC TOPICAL 100 GM GEL..GM. TP SCH ×2 (09:00→16:39)
[2018-11-10] MEDS: Z GUARD REMEDY 4 OZ OINT TP SCH ×2 (09:00→21:00)
[2018-11-10] MEDS: VITAMINS A AND D 56.7 GM TUBE TP SCH ×2 (09:00→21:01)
[2018-11-10 10:45] VITALS: BP 120/77
[2018-11-10] MEDS: PRUNE JUICE GT SCH (11:00)
[2018-11-10] MEDS: [UNRECOGNIZED DRUG - OTHER] TP SCH ×2 (12:34→21:00)
[2018-11-10] MEDS: SUMATRIPTAN SUCCINATE 25 MG TABLET GT PRN (13:03)
[2018-11-10] MEDS: BISACODYL SUPP (10 MG) 10 MG/SUPP.RECT SUPP.RECT RC PRN (14:41)
[2018-11-10 20:31] VITALS: BP 126/70
[2018-11-10] MEDS: LORATADINE 10 MG TABLET GT SCH (21:01)
[2018-11-10] MEDS: LATANOPROST EYE DROP 0.005% 2.5 ML BOTTLE EACHEYE SCH (21:01)
[2018-11-10] MEDS: BENAZEPRIL HCL 5 MG TABLET GT SCH (21:01)
[2018-11-10] MEDS: PRAVASTATIN SODIUM 20 MG TABLET GT SCH (21:02)
[2018-11-11] MEDS: IPRATROPIUM NEB FS 0.5 MG/2.5 ML AMPUL.NEB NEB SCH ×4 (00:29→19:30)
[2018-11-11] MEDS: CHLORHEXIDINE GLUCONATE 15 ML UDC MM SCH ×2 (06:16→17:07)
[2018-11-11] MEDS: JEVITY 1.2 CAL 1,000 ML BOTTLE GT PRN (06:57)
[2018-11-11 07:51] VITALS: BP 129/75
[2018-11-11] MEDS: ASPIRIN 81 MG TAB.CHEW GT SCH (08:27)
[2018-11-11] MEDS: DICLOFENAC TOPICAL 100 GM GEL..GM. TP SCH ×2 (08:27→16:51)
[2018-11-11] MEDS: FINASTERIDE (5 MG) 5 MG TABLET GT SCH (08:27)
[2018-11-11] MEDS: POTASSIUM CHLORIDE GT SCH (08:27)
[2018-11-11] MEDS: CHOLECALCIFEROL (VITAMIN D 3) 400 UNIT TABLET GT SCH ×2 (08:27→21:09)
[2018-11-11] MEDS: Z GUARD REMEDY 4 OZ OINT TP SCH ×2 (08:27→21:09)
[2018-11-11] MEDS: RIFAXIMIN 550 MG TABLET GT SCH ×2 (08:27→16:51)
[2018-11-11] MEDS: VITS A AND D/WHITE PET/LANOLIN 5 GM PACKET TP SCH ×4 (08:27→21:09)
[2018-11-11] MEDS: BIOTIN 5000 MCG GT SCH (08:27)
[2018-11-11] MEDS: HYDROGEN PEROXIDE 480 ML BOTTLE TP SCH ×2 (08:27→21:09)
[2018-11-11] MEDS: VITAMINS A AND D 56.7 GM TUBE TP SCH ×2 (08:27→21:09)
--- NOTE | 2018-11-11 09:53 | NUR ---
SKIP letf a VM to patient's Asha today following up with issue with conservatorship.
[2018-11-11] MEDS: PRUNE JUICE GT SCH (11:00)
[2018-11-11] MEDS: [UNRECOGNIZED DRUG - OTHER] TP SCH ×2 (12:13→21:09)
[2018-11-11] MEDS: HYDROCODONE/APAP 7.5/325MG 1 EACH TABLET GT PRN ×2 (12:14→21:14)
[2018-11-11] MEDS: ALBUTEROL HALF STRENGTH 1.25 MG/3 ML VIAL.NEB NEB PRN (19:56)
[2018-11-11 20:22] VITALS: BP 141/88
[2018-11-11] MEDS: BENAZEPRIL HCL 5 MG TABLET GT SCH (21:10)
[2018-11-11] MEDS: PRAVASTATIN SODIUM 20 MG TABLET GT SCH (21:10)
[2018-11-11] MEDS: LORATADINE 10 MG TABLET GT SCH (21:10)
[2018-11-11] MEDS: LATANOPROST EYE DROP 0.005% 2.5 ML BOTTLE EACHEYE SCH (21:10)
--- NOTE | 2018-11-11 21:19 | NUR ---
PT RCDUKE'D ON COOL AEROSOL WITH CHARTED SETTINGS. HHN TX TOLERATED WELL. SX DONE. PT TRACH PATENT AND SECURE. AMBU BAG AT BEDSIDE. WILL CONTINUE TO MONITOR. Addendum: 11/11/18 at 2119 by LISETH MOCK RT Amended: Links added.
[2018-11-12] MEDS: IPRATROPIUM NEB FS 0.5 MG/2.5 ML AMPUL.NEB NEB SCH ×4 (01:30→19:48)
[2018-11-12] MEDS: ALBUTEROL HALF STRENGTH 1.25 MG/3 ML VIAL.NEB NEB PRN (01:37)
[2018-11-12] MEDS: JEVITY 1.2 CAL 1,000 ML BOTTLE GT PRN ×2 (02:49→18:57)
[2018-11-12] MEDS: CHLORHEXIDINE GLUCONATE 15 ML UDC MM SCH ×2 (05:23→17:20)
[2018-11-12 07:56] VITALS: BP 140/78
[2018-11-12] MEDS: POTASSIUM CHLORIDE GT SCH (08:23)
[2018-11-12] MEDS: BIOTIN 5000 MCG GT SCH (08:25)
[2018-11-12] MEDS: FINASTERIDE (5 MG) 5 MG TABLET GT SCH (08:25)
[2018-11-12] MEDS: RIFAXIMIN 550 MG TABLET GT SCH ×2 (08:25→17:17)
[2018-11-12] MEDS: CHOLECALCIFEROL (VITAMIN D 3) 400 UNIT TABLET GT SCH ×2 (08:29→21:11)
[2018-11-12] MEDS: DICLOFENAC TOPICAL 100 GM GEL..GM. TP SCH ×2 (09:00→17:20)
[2018-11-12] MEDS: VITS A AND D/WHITE PET/LANOLIN 5 GM PACKET TP SCH ×4 (09:00→21:11)
[2018-11-12] MEDS: HYDROGEN PEROXIDE 480 ML BOTTLE TP SCH ×2 (09:00→21:11)
[2018-11-12] MEDS: Z GUARD REMEDY 4 OZ OINT TP SCH ×2 (09:00→21:11)
[2018-11-12] MEDS: VITAMINS A AND D 56.7 GM TUBE TP SCH ×2 (09:00→21:12)
[2018-11-12] MEDS: PRUNE JUICE GT SCH (11:00)
[2018-11-12] MEDS: [UNRECOGNIZED DRUG - OTHER] TP SCH ×2 (13:00→21:11)
[2018-11-12] MEDS: HYDROCODONE/APAP 7.5/325MG 1 EACH TABLET GT PRN (17:52)
[2018-11-12 19:34] VITALS: BP 148/82
[2018-11-12] MEDS: LATANOPROST EYE DROP 0.005% 2.5 ML BOTTLE EACHEYE SCH (21:12)
[2018-11-12] MEDS: LORATADINE 10 MG TABLET GT SCH (21:12)
[2018-11-12] MEDS: PRAVASTATIN SODIUM 20 MG TABLET GT SCH (21:12)
[2018-11-12] MEDS: BENAZEPRIL HCL 5 MG TABLET GT SCH (21:12)
[2018-11-13] MEDS: IPRATROPIUM NEB FS 0.5 MG/2.5 ML AMPUL.NEB NEB SCH ×4 (02:07→19:34)
[2018-11-13] MEDS: CHLORHEXIDINE GLUCONATE 15 ML UDC MM SCH ×2 (05:36→17:30)
[2018-11-13 07:35] VITALS: BP 135/73
[2018-11-13] MEDS: ASPIRIN 81 MG TAB.CHEW GT SCH (08:45)
[2018-11-13] MEDS: BIOTIN 5000 MCG GT SCH (08:46)
[2018-11-13] MEDS: POTASSIUM CHLORIDE GT SCH (08:46)
[2018-11-13] MEDS: RIFAXIMIN 550 MG TABLET GT SCH ×2 (08:46→17:30)
[2018-11-13] MEDS: FINASTERIDE (5 MG) 5 MG TABLET GT SCH (08:46)
[2018-11-13] MEDS: CHOLECALCIFEROL (VITAMIN D 3) 400 UNIT TABLET GT SCH ×2 (08:49→20:29)
[2018-11-13] MEDS: DICLOFENAC TOPICAL 100 GM GEL..GM. TP SCH ×2 (09:00→17:30)
[2018-11-13] MEDS: Z GUARD REMEDY 4 OZ OINT TP SCH ×2 (09:00→20:29)
[2018-11-13] MEDS: VITS A AND D/WHITE PET/LANOLIN 5 GM PACKET TP SCH ×4 (09:00→20:30)
[2018-11-13] MEDS: VITAMINS A AND D 56.7 GM TUBE TP SCH ×2 (09:00→20:30)
[2018-11-13] MEDS: HYDROGEN PEROXIDE 480 ML BOTTLE TP SCH ×2 (09:00→20:29)
[2018-11-13] MEDS: PRUNE JUICE GT SCH (11:00)
[2018-11-13] MEDS: [UNRECOGNIZED DRUG - OTHER] TP SCH ×2 (12:52→20:29)
[2018-11-13] MEDS: JEVITY 1.2 CAL 1,000 ML BOTTLE GT PRN (18:50)
[2018-11-13 20:24] VITALS: BP 131/78
--- NOTE | 2018-11-13 21:36 | NUR ---
RT NOTE RECEIVED TRACH PATIENT ON ROOM AIR. PLACED PATIENT ON COOL AEROSOL PER MD ORDER. HHN INLINE TREATMENT WAS GIVEN, NO ADVERSE REACTION NOTED. PRN SUCTION WAS DONE. TRACH TUBE PATENT AND SECURED. NO RESPIRATORY DISTRESS NOTED AT THIS TIME. WILL CONTINUE TO MONITOR PATIENT. Addendum: 11/13/18 at 2137 by LUANN LAFLEUR RT Amended: Links added.
[2018-11-13] MEDS: PRAVASTATIN SODIUM 20 MG TABLET GT SCH (21:51)
[2018-11-13] MEDS: LATANOPROST EYE DROP 0.005% 2.5 ML BOTTLE EACHEYE SCH (21:51)
[2018-11-13] MEDS: BENAZEPRIL HCL 5 MG TABLET GT SCH (21:51)
[2018-11-13] MEDS: LORATADINE 10 MG TABLET GT SCH (21:51)
[2018-11-14] MEDS: IPRATROPIUM NEB FS 0.5 MG/2.5 ML AMPUL.NEB NEB SCH ×4 (01:34→19:56)
[2018-11-14] MEDS: CHLORHEXIDINE GLUCONATE 15 ML UDC MM SCH ×2 (05:34→18:38)
[2018-11-14 07:58] VITALS: BP 148/79
[2018-11-14] MEDS: CHOLECALCIFEROL (VITAMIN D 3) 400 UNIT TABLET GT SCH ×2 (08:39→20:29)
[2018-11-14] MEDS: BIOTIN 5000 MCG GT SCH (08:39)
[2018-11-14] MEDS: POTASSIUM CHLORIDE GT SCH (08:39)
[2018-11-14] MEDS: RIFAXIMIN 550 MG TABLET GT SCH ×2 (08:39→16:15)
[2018-11-14] MEDS: FINASTERIDE (5 MG) 5 MG TABLET GT SCH (08:39)
[2018-11-14] MEDS: Z GUARD REMEDY 4 OZ OINT TP SCH ×2 (09:00→20:29)
[2018-11-14] MEDS: VITS A AND D/WHITE PET/LANOLIN 5 GM PACKET TP SCH ×4 (09:00→20:30)
[2018-11-14] MEDS: VITAMINS A AND D 56.7 GM TUBE TP SCH ×2 (09:00→20:30)
[2018-11-14] MEDS: DICLOFENAC TOPICAL 100 GM GEL..GM. TP SCH ×2 (09:00→16:15)
[2018-11-14] MEDS: HYDROGEN PEROXIDE 480 ML BOTTLE TP SCH ×2 (09:00→20:29)
[2018-11-14] MEDS: PRUNE JUICE GT SCH (11:00)
[2018-11-14] MEDS: [UNRECOGNIZED DRUG - OTHER] TP SCH ×2 (13:14→20:29)
[2018-11-14] MEDS: SUMATRIPTAN SUCCINATE 25 MG TABLET GT PRN (14:37)
[2018-11-14] MEDS: JEVITY 1.2 CAL 1,000 ML BOTTLE GT PRN (16:18)
[2018-11-14 20:09] VITALS: BP 132/61
[2018-11-14] MEDS: BENAZEPRIL HCL 5 MG TABLET GT SCH (21:21)
[2018-11-14] MEDS: LORATADINE 10 MG TABLET GT SCH (21:21)
[2018-11-14] MEDS: PRAVASTATIN SODIUM 20 MG TABLET GT SCH (21:21)
[2018-11-14] MEDS: LATANOPROST EYE DROP 0.005% 2.5 ML BOTTLE EACHEYE SCH (21:22)
[2018-11-15] MEDS: IPRATROPIUM NEB FS 0.5 MG/2.5 ML AMPUL.NEB NEB SCH ×4 (02:26→19:12)
[2018-11-15] MEDS: JEVITY 1.2 CAL 1,000 ML BOTTLE GT PRN (06:06)
[2018-11-15] MEDS: CHLORHEXIDINE GLUCONATE 15 ML UDC MM SCH ×2 (06:07→17:03)
[2018-11-15 07:27] VITALS: BP 133/75
[2018-11-15] MEDS: BIOTIN 5000 MCG GT SCH (08:39)
[2018-11-15] MEDS: RIFAXIMIN 550 MG TABLET GT SCH ×2 (08:39→17:03)
[2018-11-15] MEDS: ASPIRIN 81 MG TAB.CHEW GT SCH (08:39)
[2018-11-15] MEDS: CHOLECALCIFEROL (VITAMIN D 3) 400 UNIT TABLET GT SCH ×2 (08:39→20:28)
[2018-11-15] MEDS: FINASTERIDE (5 MG) 5 MG TABLET GT SCH (08:39)
[2018-11-15] MEDS: POTASSIUM CHLORIDE GT SCH (08:39)
[2018-11-15] MEDS: VITS A AND D/WHITE PET/LANOLIN 5 GM PACKET TP SCH ×4 (09:00→20:29)
[2018-11-15] MEDS: HYDROGEN PEROXIDE 480 ML BOTTLE TP SCH ×2 (09:00→20:28)
[2018-11-15] MEDS: Z GUARD REMEDY 4 OZ OINT TP SCH ×2 (09:00→20:28)
[2018-11-15] MEDS: DICLOFENAC TOPICAL 100 GM GEL..GM. TP SCH ×2 (09:00→17:00)
[2018-11-15] MEDS: VITAMINS A AND D 56.7 GM TUBE TP SCH ×2 (09:00→20:29)
[2018-11-15] MEDS: PRUNE JUICE GT SCH (11:00)
[2018-11-15] MEDS: [UNRECOGNIZED DRUG - OTHER] TP SCH ×2 (13:00→20:28)
[2018-11-15] MEDS: HYDROCODONE/APAP 7.5/325MG 1 EACH TABLET GT PRN ×2 (20:30→22:53)
[2018-11-15 20:46] VITALS: BP 144/86
[2018-11-15] MEDS: LORATADINE 10 MG TABLET GT SCH (21:43)
[2018-11-15] MEDS: PRAVASTATIN SODIUM 20 MG TABLET GT SCH (21:45)
[2018-11-15] MEDS: LATANOPROST EYE DROP 0.005% 2.5 ML BOTTLE EACHEYE SCH (21:45)
[2018-11-15] MEDS: BENAZEPRIL HCL 5 MG TABLET GT SCH (21:45)
[2018-11-16] MEDS: IPRATROPIUM NEB FS 0.5 MG/2.5 ML AMPUL.NEB NEB SCH ×4 (00:43→19:42)
[2018-11-16] MEDS: JEVITY 1.2 CAL 1,000 ML BOTTLE GT PRN ×2 (03:44→18:49)
[2018-11-16] MEDS: CHLORHEXIDINE GLUCONATE 15 ML UDC MM SCH ×2 (05:29→17:37)
[2018-11-16 07:38] VITALS: BP 124/73
[2018-11-16] MEDS: POTASSIUM CHLORIDE GT SCH (08:02)
[2018-11-16] MEDS: CHOLECALCIFEROL (VITAMIN D 3) 400 UNIT TABLET GT SCH ×2 (08:02→21:39)
[2018-11-16] MEDS: BIOTIN 5000 MCG GT SCH (08:02)
[2018-11-16] MEDS: FINASTERIDE (5 MG) 5 MG TABLET GT SCH (08:02)
[2018-11-16] MEDS: RIFAXIMIN 550 MG TABLET GT SCH ×2 (08:02→16:28)
[2018-11-16] MEDS: HYDROCODONE/APAP 7.5/325MG 1 EACH TABLET GT PRN (08:17)
[2018-11-16] MEDS: VITAMINS A AND D 56.7 GM TUBE TP SCH ×2 (09:00→21:39)
[2018-11-16] MEDS: HYDROGEN PEROXIDE 480 ML BOTTLE TP SCH ×2 (09:00→21:39)
[2018-11-16] MEDS: VITS A AND D/WHITE PET/LANOLIN 5 GM PACKET TP SCH ×4 (09:00→21:39)
[2018-11-16] MEDS: Z GUARD REMEDY 4 OZ OINT TP SCH ×2 (09:00→21:39)
[2018-11-16] MEDS: DICLOFENAC TOPICAL 100 GM GEL..GM. TP SCH ×2 (09:00→16:28)
[2018-11-16] MEDS: PRUNE JUICE GT SCH (11:00)
[2018-11-16] MEDS: [UNRECOGNIZED DRUG - OTHER] TP SCH ×2 (12:15→21:39)
[2018-11-16] MEDS: ACETAMINOPHEN 650 MG/20 ML UDC- SA PATIENTS-PAIN ONLY GT PRN (18:32)
[2018-11-16 20:07] VITALS: BP 129/76
[2018-11-16] MEDS: LATANOPROST EYE DROP 0.005% 2.5 ML BOTTLE EACHEYE SCH (21:39)
[2018-11-16] MEDS: BENAZEPRIL HCL 5 MG TABLET GT SCH (21:39)
[2018-11-16] MEDS: LORATADINE 10 MG TABLET GT SCH (21:39)
[2018-11-16] MEDS: PRAVASTATIN SODIUM 20 MG TABLET GT SCH (21:39)
[2018-11-17] MEDS: IPRATROPIUM NEB FS 0.5 MG/2.5 ML AMPUL.NEB NEB SCH ×4 (01:40→19:19)
[2018-11-17] MEDS: CHLORHEXIDINE GLUCONATE 15 ML UDC MM SCH ×2 (05:44→17:31)
[2018-11-17] MEDS: JEVITY 1.2 CAL 1,000 ML BOTTLE GT PRN (06:05)
[2018-11-17 07:33] VITALS: BP 134/77
[2018-11-17] MEDS: BIOTIN 5000 MCG GT SCH (08:38)
[2018-11-17] MEDS: ASPIRIN 81 MG TAB.CHEW GT SCH (08:38)
[2018-11-17] MEDS: POTASSIUM CHLORIDE GT SCH (08:38)
[2018-11-17] MEDS: RIFAXIMIN 550 MG TABLET GT SCH ×2 (08:38→16:51)
[2018-11-17] MEDS: FINASTERIDE (5 MG) 5 MG TABLET GT SCH (08:38)
[2018-11-17] MEDS: CHOLECALCIFEROL (VITAMIN D 3) 400 UNIT TABLET GT SCH ×2 (08:39→21:02)
[2018-11-17] MEDS: HYDROGEN PEROXIDE 480 ML BOTTLE TP SCH ×2 (09:00→21:02)
[2018-11-17] MEDS: Z GUARD REMEDY 4 OZ OINT TP SCH ×2 (09:00→21:02)
[2018-11-17] MEDS: DICLOFENAC TOPICAL 100 GM GEL..GM. TP SCH ×2 (09:00→16:52)
[2018-11-17] MEDS: VITAMINS A AND D 56.7 GM TUBE TP SCH ×2 (09:00→21:02)
[2018-11-17] MEDS: VITS A AND D/WHITE PET/LANOLIN 5 GM PACKET TP SCH ×4 (09:00→21:02)
[2018-11-17] MEDS: HYDROCODONE/APAP 7.5/325MG 1 EACH TABLET GT PRN (11:17)
[2018-11-17] MEDS: PRUNE JUICE GT SCH (11:19)
[2018-11-17] MEDS: [UNRECOGNIZED DRUG - OTHER] TP SCH ×2 (13:00→21:02)
--- NOTE | 2018-11-17 16:36 | NUR ---
Seen and examined by Dr. Edwards NNO given at this time.
--- NOTE | 2018-11-17 19:30 | NUR ---
Seen by ISABELA Pichardo no new order.
[2018-11-17 19:59] VITALS: BP 129/62
[2018-11-17] MEDS: LATANOPROST EYE DROP 0.005% 2.5 ML BOTTLE EACHEYE SCH (21:02)
[2018-11-17] MEDS: PRAVASTATIN SODIUM 20 MG TABLET GT SCH (21:03)
[2018-11-17] MEDS: BENAZEPRIL HCL 5 MG TABLET GT SCH (21:03)
[2018-11-17] MEDS: LORATADINE 10 MG TABLET GT SCH (21:03)
[2018-11-18] MEDS: IPRATROPIUM NEB FS 0.5 MG/2.5 ML AMPUL.NEB NEB SCH ×4 (00:59→19:53)
[2018-11-18] MEDS: JEVITY 1.2 CAL 1,000 ML BOTTLE GT PRN ×2 (01:35→16:56)
[2018-11-18] MEDS: CHLORHEXIDINE GLUCONATE 15 ML UDC MM SCH ×2 (05:38→17:06)
[2018-11-18 07:35] VITALS: BP 125/79
--- NOTE | 2018-11-18 08:35 | NUR ---
PT RCDUKE'D ON COOL AEROSOL WITH CHARTED SETTINGS. HHN TX TOLERATED WELL. SX DONE. PT TRACH PATENT AND SECURE. AMBU BAG AT BEDSIDE. WILL CONTINUE TO MONITOR. Addendum: 11/18/18 at 0836 by LISETH MOCK RT Amended: Links added.
[2018-11-18] MEDS: DICLOFENAC TOPICAL 100 GM GEL..GM. TP SCH ×2 (09:00→17:06)
[2018-11-18] MEDS: VITAMINS A AND D 56.7 GM TUBE TP SCH ×2 (09:00→21:00)
[2018-11-18] MEDS: HYDROGEN PEROXIDE 480 ML BOTTLE TP SCH ×2 (09:00→21:00)
[2018-11-18] MEDS: Z GUARD REMEDY 4 OZ OINT TP SCH ×2 (09:00→21:00)
[2018-11-18] MEDS: VITS A AND D/WHITE PET/LANOLIN 5 GM PACKET TP SCH ×4 (09:00→21:00)
[2018-11-18] MEDS: BIOTIN 5000 MCG GT SCH (09:08)
[2018-11-18] MEDS: FINASTERIDE (5 MG) 5 MG TABLET GT SCH (09:08)
[2018-11-18] MEDS: RIFAXIMIN 550 MG TABLET GT SCH ×2 (09:08→16:56)
[2018-11-18] MEDS: CHOLECALCIFEROL (VITAMIN D 3) 400 UNIT TABLET GT SCH ×2 (09:08→21:00)
[2018-11-18] MEDS: POTASSIUM CHLORIDE GT SCH (09:08)
[2018-11-18] MEDS: PRUNE JUICE GT SCH (11:00)
[2018-11-18] MEDS: [UNRECOGNIZED DRUG - OTHER] TP SCH ×2 (13:00→21:00)
[2018-11-18 20:00] VITALS: BP 144/92
[2018-11-18] MEDS: ACETAMINOPHEN 650 MG/20 ML UDC- SA PATIENTS-PAIN ONLY GT PRN (20:07)
[2018-11-18 20:14] VITALS: BP 144/92
[2018-11-18] MEDS: LORATADINE 10 MG TABLET GT SCH (22:16)
[2018-11-18] MEDS: LATANOPROST EYE DROP 0.005% 2.5 ML BOTTLE EACHEYE SCH (22:16)
[2018-11-18] MEDS: PRAVASTATIN SODIUM 20 MG TABLET GT SCH (22:16)
[2018-11-18] MEDS: BENAZEPRIL HCL 5 MG TABLET GT SCH (22:16)
[2018-11-19] MEDS: IPRATROPIUM NEB FS 0.5 MG/2.5 ML AMPUL.NEB NEB SCH ×4 (01:20→19:30)
[2018-11-19] MEDS: HYDROCODONE/APAP 7.5/325MG 1 EACH TABLET GT PRN (01:23)
[2018-11-19] MEDS: CHLORHEXIDINE GLUCONATE 15 ML UDC MM SCH ×2 (06:21→16:47)
[2018-11-19 07:29] VITALS: BP 142/84
[2018-11-19] MEDS: ASPIRIN 81 MG TAB.CHEW GT SCH (08:30)
[2018-11-19] MEDS: POTASSIUM CHLORIDE GT SCH (10:10)
[2018-11-19] MEDS: FINASTERIDE (5 MG) 5 MG TABLET GT SCH (10:11)
[2018-11-19] MEDS: BIOTIN 5000 MCG GT SCH (10:11)
[2018-11-19] MEDS: RIFAXIMIN 550 MG TABLET GT SCH ×2 (10:15→16:47)
[2018-11-19] MEDS: VITAMINS A AND D 56.7 GM TUBE TP SCH ×2 (10:16→20:44)
[2018-11-19] MEDS: DICLOFENAC TOPICAL 100 GM GEL..GM. TP SCH ×2 (10:16→16:47)
[2018-11-19] MEDS: HYDROGEN PEROXIDE 480 ML BOTTLE TP SCH ×2 (10:17→20:43)
[2018-11-19] MEDS: VITS A AND D/WHITE PET/LANOLIN 5 GM PACKET TP SCH ×4 (10:17→20:44)
[2018-11-19] MEDS: Z GUARD REMEDY 4 OZ OINT TP SCH ×2 (10:17→20:44)
[2018-11-19] MEDS: CHOLECALCIFEROL (VITAMIN D 3) 400 UNIT TABLET GT SCH ×2 (10:20→20:43)
[2018-11-19] MEDS: PRUNE JUICE GT SCH ×2 (11:00→11:52)
[2018-11-19] MEDS: [UNRECOGNIZED DRUG - OTHER] TP SCH ×2 (12:24→20:43)
[2018-11-19 19:33] VITALS: BP 147/86
[2018-11-19] MEDS: LATANOPROST EYE DROP 0.005% 2.5 ML BOTTLE EACHEYE SCH (20:44)
[2018-11-19] MEDS: LORATADINE 10 MG TABLET GT SCH (21:01)
[2018-11-19] MEDS: BENAZEPRIL HCL 5 MG TABLET GT SCH (21:02)
[2018-11-19] MEDS: PRAVASTATIN SODIUM 20 MG TABLET GT SCH (21:02)
[2018-11-20] MEDS: IPRATROPIUM NEB FS 0.5 MG/2.5 ML AMPUL.NEB NEB SCH ×4 (02:27→19:43)
[2018-11-20] MEDS: CHLORHEXIDINE GLUCONATE 15 ML UDC MM SCH ×2 (05:41→17:14)
[2018-11-20 07:57] VITALS: BP 133/79
[2018-11-20] MEDS: RIFAXIMIN 550 MG TABLET GT SCH ×2 (08:37→17:14)
[2018-11-20] MEDS: BIOTIN 5000 MCG GT SCH (08:37)
[2018-11-20] MEDS: FINASTERIDE (5 MG) 5 MG TABLET GT SCH (08:37)
[2018-11-20] MEDS: POTASSIUM CHLORIDE GT SCH (08:37)
[2018-11-20] MEDS: CHOLECALCIFEROL (VITAMIN D 3) 400 UNIT TABLET GT SCH ×2 (08:37→20:29)
[2018-11-20] MEDS: Z GUARD REMEDY 4 OZ OINT TP SCH ×2 (08:38→20:30)
[2018-11-20] MEDS: VITS A AND D/WHITE PET/LANOLIN 5 GM PACKET TP SCH ×4 (08:38→20:30)
[2018-11-20] MEDS: HYDROGEN PEROXIDE 480 ML BOTTLE TP SCH ×2 (08:38→20:29)
[2018-11-20] MEDS: VITAMINS A AND D 56.7 GM TUBE TP SCH ×2 (08:38→20:30)
[2018-11-20] MEDS: DICLOFENAC TOPICAL 100 GM GEL..GM. TP SCH ×2 (08:38→17:14)
[2018-11-20] MEDS: PRUNE JUICE GT SCH (11:00)
[2018-11-20] MEDS: [UNRECOGNIZED DRUG - OTHER] TP SCH ×2 (12:33→20:30)
[2018-11-20] MEDS: JEVITY 1.2 CAL 1,000 ML BOTTLE GT PRN (15:07)
[2018-11-20 20:02] VITALS: BP 145/81
[2018-11-20] MEDS: LORATADINE 10 MG TABLET GT SCH (22:16)
[2018-11-20] MEDS: LATANOPROST EYE DROP 0.005% 2.5 ML BOTTLE EACHEYE SCH (22:16)
[2018-11-20] MEDS: BENAZEPRIL HCL 5 MG TABLET GT SCH (22:17)
[2018-11-20] MEDS: PRAVASTATIN SODIUM 20 MG TABLET GT SCH (22:17)
--- NOTE | 2018-11-20 23:41 | NUR ---
PT RCDUKE'D ON COOL AEROSOL WITH CHARTED SETTINGS. HHN TX TOLERATED WELL. SX DONE. PT TRACH PATENT AND SECURE. AMBU BAG AT BEDSIDE. WILL CONTINUE TO MONITOR. Addendum: 11/20/18 at 2342 by LISETH MOCK RT Amended: Links added.
[2018-11-21] MEDS: IPRATROPIUM NEB FS 0.5 MG/2.5 ML AMPUL.NEB NEB SCH ×4 (00:49→20:09)
[2018-11-21] MEDS: JEVITY 1.2 CAL 1,000 ML BOTTLE GT PRN (05:29)
[2018-11-21] MEDS: CHLORHEXIDINE GLUCONATE 15 ML UDC MM SCH ×2 (05:29→17:15)
[2018-11-21 07:25] VITALS: BP 135/79
[2018-11-21] MEDS: CHOLECALCIFEROL (VITAMIN D 3) 400 UNIT TABLET GT SCH ×2 (08:38→20:56)
[2018-11-21] MEDS: BIOTIN 5000 MCG GT SCH (08:38)
[2018-11-21] MEDS: POTASSIUM CHLORIDE GT SCH (08:38)
[2018-11-21] MEDS: FINASTERIDE (5 MG) 5 MG TABLET GT SCH (08:38)
[2018-11-21] MEDS: RIFAXIMIN 550 MG TABLET GT SCH ×2 (08:38→17:14)
[2018-11-21] MEDS: VITS A AND D/WHITE PET/LANOLIN 5 GM PACKET TP SCH ×4 (08:38→20:57)
[2018-11-21] MEDS: ASPIRIN 81 MG TAB.CHEW GT SCH (08:38)
[2018-11-21] MEDS: Z GUARD REMEDY 4 OZ OINT TP SCH ×2 (08:38→20:56)
[2018-11-21] MEDS: HYDROGEN PEROXIDE 480 ML BOTTLE TP SCH ×2 (08:38→20:56)
[2018-11-21] MEDS: VITAMINS A AND D 56.7 GM TUBE TP SCH ×2 (08:39→20:57)
[2018-11-21] MEDS: DICLOFENAC TOPICAL 100 GM GEL..GM. TP SCH ×2 (08:39→17:15)
[2018-11-21] MEDS: PRUNE JUICE GT SCH (11:00)
[2018-11-21] MEDS: [UNRECOGNIZED DRUG - OTHER] TP SCH ×2 (12:13→20:56)
--- NOTE | 2018-11-21 12:36 | NUR ---
SW communicated to patient's sife about this Saturday 11/25 IDT mtg.
[2018-11-21 20:09] VITALS: BP 138/77
[2018-11-21] MEDS: LATANOPROST EYE DROP 0.005% 2.5 ML BOTTLE EACHEYE SCH (21:27)
[2018-11-21] MEDS: LORATADINE 10 MG TABLET GT SCH (21:27)
[2018-11-21] MEDS: PRAVASTATIN SODIUM 20 MG TABLET GT SCH (21:28)
[2018-11-21] MEDS: BENAZEPRIL HCL 5 MG TABLET GT SCH (21:28)
[2018-11-21] MEDS: HYDROCODONE/APAP 7.5/325MG 1 EACH TABLET GT PRN (21:48)
[2018-11-22] MEDS: IPRATROPIUM NEB FS 0.5 MG/2.5 ML AMPUL.NEB NEB SCH ×4 (01:20→19:30)
[2018-11-22] MEDS: JEVITY 1.2 CAL 1,000 ML BOTTLE GT PRN (03:33)
[2018-11-22] MEDS: CHLORHEXIDINE GLUCONATE 15 ML UDC MM SCH ×2 (05:40→17:10)
[2018-11-22 07:54] VITALS: BP 139/78
[2018-11-22] MEDS: CHOLECALCIFEROL (VITAMIN D 3) 400 UNIT TABLET GT SCH ×2 (08:41→20:36)
[2018-11-22] MEDS: BIOTIN 5000 MCG GT SCH (08:41)
[2018-11-22] MEDS: FINASTERIDE (5 MG) 5 MG TABLET GT SCH (08:41)
[2018-11-22] MEDS: POTASSIUM CHLORIDE GT SCH (08:41)
[2018-11-22] MEDS: VITS A AND D/WHITE PET/LANOLIN 5 GM PACKET TP SCH ×4 (08:42→20:37)
[2018-11-22] MEDS: Z GUARD REMEDY 4 OZ OINT TP SCH ×2 (08:42→20:37)
[2018-11-22] MEDS: RIFAXIMIN 550 MG TABLET GT SCH ×2 (08:42→17:10)
[2018-11-22] MEDS: HYDROGEN PEROXIDE 480 ML BOTTLE TP SCH ×2 (08:42→20:37)
[2018-11-22] MEDS: VITAMINS A AND D 56.7 GM TUBE TP SCH ×2 (08:42→20:37)
[2018-11-22] MEDS: DICLOFENAC TOPICAL 100 GM GEL..GM. TP SCH ×2 (08:42→17:10)
[2018-11-22] MEDS: PRUNE JUICE GT SCH (11:00)
[2018-11-22] MEDS: [UNRECOGNIZED DRUG - OTHER] TP SCH ×2 (13:19→20:37)
[2018-11-22 20:33] VITALS: BP 102/65
[2018-11-22] MEDS: LATANOPROST EYE DROP 0.005% 2.5 ML BOTTLE EACHEYE SCH (21:26)
[2018-11-22] MEDS: LORATADINE 10 MG TABLET GT SCH (21:26)
[2018-11-22] MEDS: PRAVASTATIN SODIUM 20 MG TABLET GT SCH (21:27)
[2018-11-22] MEDS: BENAZEPRIL HCL 5 MG TABLET GT SCH (21:27)
[2018-11-23] MEDS: IPRATROPIUM NEB FS 0.5 MG/2.5 ML AMPUL.NEB NEB SCH ×4 (02:22→19:48)
[2018-11-23] MEDS: JEVITY 1.2 CAL 1,000 ML BOTTLE GT PRN (05:59)
[2018-11-23] MEDS: CHLORHEXIDINE GLUCONATE 15 ML UDC MM SCH ×2 (06:00→18:13)
[2018-11-23 08:02] VITALS: BP 147/77
[2018-11-23] MEDS: ASPIRIN 81 MG TAB.CHEW GT SCH (08:59)
[2018-11-23] MEDS: VITAMINS A AND D 56.7 GM TUBE TP SCH ×2 (09:00→21:25)
[2018-11-23] MEDS: Z GUARD REMEDY 4 OZ OINT TP SCH ×2 (09:00→21:25)
[2018-11-23] MEDS: HYDROGEN PEROXIDE 480 ML BOTTLE TP SCH ×2 (09:00→21:25)
[2018-11-23] MEDS: VITS A AND D/WHITE PET/LANOLIN 5 GM PACKET TP SCH ×4 (09:00→21:25)
[2018-11-23] MEDS: DICLOFENAC TOPICAL 100 GM GEL..GM. TP SCH ×2 (09:00→17:00)
[2018-11-23] MEDS: POTASSIUM CHLORIDE GT SCH (09:02)
[2018-11-23] MEDS: BIOTIN 5000 MCG GT SCH (09:02)
[2018-11-23] MEDS: CHOLECALCIFEROL (VITAMIN D 3) 400 UNIT TABLET GT SCH ×2 (09:02→21:25)
[2018-11-23] MEDS: FINASTERIDE (5 MG) 5 MG TABLET GT SCH (09:02)
[2018-11-23] MEDS: RIFAXIMIN 550 MG TABLET GT SCH ×2 (09:02→17:00)
[2018-11-23] MEDS: PRUNE JUICE GT SCH (11:00)
--- NOTE | 2018-11-23 12:30 | NUR ---
Seen and examined by Dr. Jerry rain.
[2018-11-23] MEDS: [UNRECOGNIZED DRUG - OTHER] TP SCH ×2 (12:32→21:25)
[2018-11-23 20:07] VITALS: BP 133/77
[2018-11-23] MEDS: LATANOPROST EYE DROP 0.005% 2.5 ML BOTTLE EACHEYE SCH (21:25)
[2018-11-23] MEDS: LORATADINE 10 MG TABLET GT SCH (21:25)
[2018-11-23] MEDS: BENAZEPRIL HCL 5 MG TABLET GT SCH (21:26)
[2018-11-23] MEDS: GLYCOPYRROLATE 1 MG TABLET GT PRN (21:26)
[2018-11-23] MEDS: PRAVASTATIN SODIUM 20 MG TABLET GT SCH (21:26)
[2018-11-23] MEDS: HYDROCODONE/APAP 7.5/325MG 1 EACH TABLET GT PRN (21:27)
[2018-11-24] MEDS: IPRATROPIUM NEB FS 0.5 MG/2.5 ML AMPUL.NEB NEB SCH ×4 (01:11→19:38)
[2018-11-24] MEDS: JEVITY 1.2 CAL 1,000 ML BOTTLE GT PRN ×2 (02:30→18:40)
[2018-11-24] MEDS: CHLORHEXIDINE GLUCONATE 15 ML UDC MM SCH ×2 (05:49→18:06)
[2018-11-24 07:46] VITALS: BP 126/72
[2018-11-24] MEDS: HYDROGEN PEROXIDE 480 ML BOTTLE TP SCH ×2 (08:22→21:27)
[2018-11-24] MEDS: CHOLECALCIFEROL (VITAMIN D 3) 400 UNIT TABLET GT SCH ×2 (08:22→21:27)
[2018-11-24] MEDS: POTASSIUM CHLORIDE GT SCH (08:22)
[2018-11-24] MEDS: DICLOFENAC TOPICAL 100 GM GEL..GM. TP SCH ×2 (08:22→16:33)
[2018-11-24] MEDS: VITS A AND D/WHITE PET/LANOLIN 5 GM PACKET TP SCH ×4 (08:22→21:27)
[2018-11-24] MEDS: FINASTERIDE (5 MG) 5 MG TABLET GT SCH (08:22)
[2018-11-24] MEDS: Z GUARD REMEDY 4 OZ OINT TP SCH ×2 (08:22→21:27)
[2018-11-24] MEDS: VITAMINS A AND D 56.7 GM TUBE TP SCH ×2 (08:22→21:27)
[2018-11-24] MEDS: BIOTIN 5000 MCG GT SCH (08:22)
[2018-11-24] MEDS: RIFAXIMIN 550 MG TABLET GT SCH ×2 (08:22→16:33)
[2018-11-24] MEDS: PRUNE JUICE GT SCH (11:00)
[2018-11-24] MEDS: [UNRECOGNIZED DRUG - OTHER] TP SCH ×2 (12:40→21:27)
[2018-11-24] MEDS: MAGNESIUM HYDROXIDE 30 ML UDC GT PRN (13:06)
[2018-11-24] MEDS: HYDROCODONE/APAP 7.5/325MG 1 EACH TABLET GT PRN (18:40)
[2018-11-24 20:38] VITALS: BP 144/74
[2018-11-24] MEDS: LORATADINE 10 MG TABLET GT SCH (21:27)
[2018-11-24] MEDS: LATANOPROST EYE DROP 0.005% 2.5 ML BOTTLE EACHEYE SCH (21:27)
[2018-11-24] MEDS: BENAZEPRIL HCL 5 MG TABLET GT SCH (21:28)
[2018-11-24] MEDS: PRAVASTATIN SODIUM 20 MG TABLET GT SCH (21:28)
[2018-11-25] MEDS: IPRATROPIUM NEB FS 0.5 MG/2.5 ML AMPUL.NEB NEB SCH ×4 (01:15→19:33)
[2018-11-25] MEDS: CHLORHEXIDINE GLUCONATE 15 ML UDC MM SCH ×2 (05:22→17:00)
[2018-11-25 07:43] VITALS: BP 146/64
[2018-11-25] MEDS: BIOTIN 5000 MCG GT SCH (08:42)
[2018-11-25] MEDS: ASPIRIN 81 MG TAB.CHEW GT SCH (08:42)
[2018-11-25] MEDS: HYDROGEN PEROXIDE 480 ML BOTTLE TP SCH ×2 (08:42→21:09)
[2018-11-25] MEDS: RIFAXIMIN 550 MG TABLET GT SCH ×2 (08:42→17:00)
[2018-11-25] MEDS: Z GUARD REMEDY 4 OZ OINT TP SCH ×2 (08:42→21:09)
[2018-11-25] MEDS: CHOLECALCIFEROL (VITAMIN D 3) 400 UNIT TABLET GT SCH ×2 (08:42→21:09)
[2018-11-25] MEDS: POTASSIUM CHLORIDE GT SCH (08:42)
[2018-11-25] MEDS: FINASTERIDE (5 MG) 5 MG TABLET GT SCH (08:42)
[2018-11-25] MEDS: VITS A AND D/WHITE PET/LANOLIN 5 GM PACKET TP SCH ×4 (08:43→21:09)
[2018-11-25] MEDS: DICLOFENAC TOPICAL 100 GM GEL..GM. TP SCH ×2 (08:43→17:00)
[2018-11-25] MEDS: VITAMINS A AND D 56.7 GM TUBE TP SCH ×2 (08:43→21:09)
[2018-11-25] MEDS: PRUNE JUICE GT SCH (11:00)
[2018-11-25] MEDS: [UNRECOGNIZED DRUG - OTHER] TP SCH ×2 (13:17→21:09)
[2018-11-25] MEDS: JEVITY 1.2 CAL 1,000 ML BOTTLE GT PRN (17:00)
[2018-11-25] MEDS: GLYCOPYRROLATE 1 MG TABLET GT PRN (17:01)
[2018-11-25 20:08] VITALS: BP 139/80
[2018-11-25] MEDS: LORATADINE 10 MG TABLET GT SCH (21:09)
[2018-11-25] MEDS: BENAZEPRIL HCL 5 MG TABLET GT SCH (21:09)
[2018-11-25] MEDS: LATANOPROST EYE DROP 0.005% 2.5 ML BOTTLE EACHEYE SCH (21:09)
[2018-11-25] MEDS: PRAVASTATIN SODIUM 20 MG TABLET GT SCH (21:10)
[2018-11-26] MEDS: IPRATROPIUM NEB FS 0.5 MG/2.5 ML AMPUL.NEB NEB SCH ×4 (01:15→19:31)
[2018-11-26] MEDS: CHLORHEXIDINE GLUCONATE 15 ML UDC MM SCH ×2 (05:45→17:09)
[2018-11-26] MEDS: FINASTERIDE (5 MG) 5 MG TABLET GT SCH (08:24)
[2018-11-26] MEDS: POTASSIUM CHLORIDE GT SCH (08:24)
[2018-11-26] MEDS: BIOTIN 5000 MCG GT SCH (08:24)
[2018-11-26] MEDS: VITAMINS A AND D 56.7 GM TUBE TP SCH ×2 (08:25→21:59)
[2018-11-26] MEDS: DICLOFENAC TOPICAL 100 GM GEL..GM. TP SCH ×2 (08:25→17:09)
[2018-11-26] MEDS: HYDROGEN PEROXIDE 480 ML BOTTLE TP SCH ×2 (08:25→21:58)
[2018-11-26] MEDS: Z GUARD REMEDY 4 OZ OINT TP SCH ×2 (08:25→21:58)
[2018-11-26] MEDS: VITS A AND D/WHITE PET/LANOLIN 5 GM PACKET TP SCH ×4 (08:25→21:59)
[2018-11-26] MEDS: CHOLECALCIFEROL (VITAMIN D 3) 400 UNIT TABLET GT SCH ×2 (08:25→21:58)
[2018-11-26] MEDS: RIFAXIMIN 550 MG TABLET GT SCH ×2 (08:25→17:09)
[2018-11-26] MEDS: PRUNE JUICE GT SCH (11:00)
[2018-11-26] MEDS: JEVITY 1.2 CAL 1,000 ML BOTTLE GT PRN (12:42)
[2018-11-26] MEDS: [UNRECOGNIZED DRUG - OTHER] TP SCH ×2 (12:42→21:58)
[2018-11-26] MEDS: HYDROCODONE/APAP 7.5/325MG 1 EACH TABLET GT PRN ×2 (12:43→21:00)
--- NOTE | 2018-11-26 13:17 | NUR ---
Spoke with Mrs. Lopez regarding her concern of Funginail administration. According to Mrs. Lopez it is OK with her any time of the day, which could be an hour before or after 1 PM. Endorsed.
[2018-11-26 19:59] VITALS: BP 144/84
[2018-11-26] MEDS: LATANOPROST EYE DROP 0.005% 2.5 ML BOTTLE EACHEYE SCH (21:59)
[2018-11-26] MEDS: PRAVASTATIN SODIUM 20 MG TABLET GT SCH (21:59)
[2018-11-26] MEDS: LORATADINE 10 MG TABLET GT SCH (21:59)
[2018-11-26] MEDS: BENAZEPRIL HCL 5 MG TABLET GT SCH (21:59)
[2018-11-27] MEDS: IPRATROPIUM NEB FS 0.5 MG/2.5 ML AMPUL.NEB NEB SCH ×4 (01:25→19:43)
[2018-11-27] MEDS: JEVITY 1.2 CAL 1,000 ML BOTTLE GT PRN (06:00)
[2018-11-27] MEDS: CHLORHEXIDINE GLUCONATE 15 ML UDC MM SCH ×2 (06:01→16:50)
[2018-11-27 07:50] VITALS: BP 114/73
[2018-11-27] MEDS: POTASSIUM CHLORIDE GT SCH (09:20)
[2018-11-27] MEDS: CHOLECALCIFEROL (VITAMIN D 3) 400 UNIT TABLET GT SCH ×2 (09:20→21:22)
[2018-11-27] MEDS: RIFAXIMIN 550 MG TABLET GT SCH ×2 (09:20→16:50)
[2018-11-27] MEDS: FINASTERIDE (5 MG) 5 MG TABLET GT SCH (09:20)
[2018-11-27] MEDS: Z GUARD REMEDY 4 OZ OINT TP SCH ×2 (09:20→21:22)
[2018-11-27] MEDS: ASPIRIN 81 MG TAB.CHEW GT SCH (09:20)
[2018-11-27] MEDS: BIOTIN 5000 MCG GT SCH (09:20)
[2018-11-27] MEDS: HYDROGEN PEROXIDE 480 ML BOTTLE TP SCH ×2 (09:20→21:22)
[2018-11-27] MEDS: VITS A AND D/WHITE PET/LANOLIN 5 GM PACKET TP SCH ×4 (09:21→21:22)
[2018-11-27] MEDS: DICLOFENAC TOPICAL 100 GM GEL..GM. TP SCH ×2 (09:21→16:50)
[2018-11-27] MEDS: VITAMINS A AND D 56.7 GM TUBE TP SCH ×2 (09:21→21:22)
[2018-11-27] MEDS: PRUNE JUICE GT SCH (11:00)
[2018-11-27] MEDS: [UNRECOGNIZED DRUG - OTHER] TP SCH ×2 (13:00→21:22)
[2018-11-27] MEDS: SUMATRIPTAN SUCCINATE 25 MG TABLET GT PRN (16:49)
[2018-11-27 21:01] VITALS: BP 132/78
[2018-11-27] MEDS: LATANOPROST EYE DROP 0.005% 2.5 ML BOTTLE EACHEYE SCH (21:22)
[2018-11-27] MEDS: LORATADINE 10 MG TABLET GT SCH (21:22)
[2018-11-27] MEDS: BENAZEPRIL HCL 5 MG TABLET GT SCH (21:23)
[2018-11-27] MEDS: PRAVASTATIN SODIUM 20 MG TABLET GT SCH (21:23)
[2018-11-28] MEDS: IPRATROPIUM NEB FS 0.5 MG/2.5 ML AMPUL.NEB NEB SCH ×4 (01:36→19:24)
[2018-11-28] MEDS: CHLORHEXIDINE GLUCONATE 15 ML UDC MM SCH ×2 (05:47→17:03)
[2018-11-28 07:53] VITALS: BP 107/52
[2018-11-28] MEDS: DICLOFENAC TOPICAL 100 GM GEL..GM. TP SCH ×2 (08:29→16:43)
[2018-11-28] MEDS: FINASTERIDE (5 MG) 5 MG TABLET GT SCH (08:29)
[2018-11-28] MEDS: RIFAXIMIN 550 MG TABLET GT SCH ×2 (08:29→16:43)
[2018-11-28] MEDS: CHOLECALCIFEROL (VITAMIN D 3) 400 UNIT TABLET GT SCH ×2 (08:29→21:11)
[2018-11-28] MEDS: HYDROGEN PEROXIDE 480 ML BOTTLE TP SCH ×2 (08:29→21:11)
[2018-11-28] MEDS: Z GUARD REMEDY 4 OZ OINT TP SCH ×2 (08:29→21:11)
[2018-11-28] MEDS: BIOTIN 5000 MCG GT SCH (08:29)
[2018-11-28] MEDS: VITAMINS A AND D 56.7 GM TUBE TP SCH ×2 (08:29→21:11)
[2018-11-28] MEDS: VITS A AND D/WHITE PET/LANOLIN 5 GM PACKET TP SCH ×4 (08:29→21:11)
[2018-11-28] MEDS: POTASSIUM CHLORIDE GT SCH (08:29)
--- NOTE | 2018-11-28 10:12 | NUR ---
IDT meeting was held today. Resident's attended it and expressed concern about the local application of fungi medication. she would like it to be consistently done twice a day as prescribed. Charge nurse Yanira will address it to the staff. Dr. Mejia and the interdisciplinary team discussed the current plan of care in detail. Current orders as well as treatments and medications were reviewed. No new orders.
[2018-11-28] MEDS: PRUNE JUICE GT SCH (11:00)
[2018-11-28] MEDS: [UNRECOGNIZED DRUG - OTHER] TP SCH ×2 (13:00→21:11)
[2018-11-28] MEDS: JEVITY 1.2 CAL 1,000 ML BOTTLE GT PRN (17:04)
[2018-11-28 20:02] VITALS: BP 148/85
[2018-11-28] MEDS: LATANOPROST EYE DROP 0.005% 2.5 ML BOTTLE EACHEYE SCH (21:11)
[2018-11-28] MEDS: LORATADINE 10 MG TABLET GT SCH (21:11)
[2018-11-28] MEDS: BENAZEPRIL HCL 5 MG TABLET GT SCH (21:12)
[2018-11-28] MEDS: PRAVASTATIN SODIUM 20 MG TABLET GT SCH (21:12)
[2018-11-29] MEDS: IPRATROPIUM NEB FS 0.5 MG/2.5 ML AMPUL.NEB NEB SCH ×4 (01:10→19:51)
[2018-11-29] MEDS: HYDROCODONE/APAP 7.5/325MG 1 EACH TABLET GT PRN (03:48)
[2018-11-29] MEDS: CHLORHEXIDINE GLUCONATE 15 ML UDC MM SCH ×2 (06:12→17:31)
[2018-11-29 07:56] VITALS: BP 136/72
[2018-11-29] MEDS: ASPIRIN 81 MG TAB.CHEW GT SCH (08:30)
[2018-11-29] MEDS: POTASSIUM CHLORIDE GT SCH (09:32)
[2018-11-29] MEDS: VITAMINS A AND D 56.7 GM TUBE TP SCH ×2 (09:33→21:14)
[2018-11-29] MEDS: FINASTERIDE (5 MG) 5 MG TABLET GT SCH (09:33)
[2018-11-29] MEDS: RIFAXIMIN 550 MG TABLET GT SCH ×2 (09:33→17:31)
[2018-11-29] MEDS: CHOLECALCIFEROL (VITAMIN D 3) 400 UNIT TABLET GT SCH ×2 (09:33→21:14)
[2018-11-29] MEDS: VITS A AND D/WHITE PET/LANOLIN 5 GM PACKET TP SCH ×4 (09:33→21:14)
[2018-11-29] MEDS: HYDROGEN PEROXIDE 480 ML BOTTLE TP SCH ×2 (09:33→21:14)
[2018-11-29] MEDS: DICLOFENAC TOPICAL 100 GM GEL..GM. TP SCH ×2 (09:33→17:31)
[2018-11-29] MEDS: Z GUARD REMEDY 4 OZ OINT TP SCH ×2 (09:33→21:14)
[2018-11-29] MEDS: BIOTIN 5000 MCG GT SCH (09:33)
[2018-11-29] MEDS: PRUNE JUICE GT SCH (11:00)
[2018-11-29] MEDS: JEVITY 1.2 CAL 1,000 ML BOTTLE GT PRN (11:35)
[2018-11-29] MEDS: [UNRECOGNIZED DRUG - OTHER] TP SCH ×2 (12:36→21:14)
[2018-11-29 20:51] VITALS: BP 154/88
[2018-11-29] MEDS: LATANOPROST EYE DROP 0.005% 2.5 ML BOTTLE EACHEYE SCH (21:14)
[2018-11-29] MEDS: LORATADINE 10 MG TABLET GT SCH (21:14)
[2018-11-29] MEDS: BENAZEPRIL HCL 5 MG TABLET GT SCH (21:15)
[2018-11-29] MEDS: PRAVASTATIN SODIUM 20 MG TABLET GT SCH (21:15)
[2018-11-30] MEDS: IPRATROPIUM NEB FS 0.5 MG/2.5 ML AMPUL.NEB NEB SCH ×4 (01:22→19:58)
[2018-11-30] MEDS: CHLORHEXIDINE GLUCONATE 15 ML UDC MM SCH ×2 (05:51→17:53)
[2018-11-30 07:40] VITALS: BP 130/92
[2018-11-30] MEDS: BIOTIN 5000 MCG GT SCH (08:12)
[2018-11-30] MEDS: FINASTERIDE (5 MG) 5 MG TABLET GT SCH (08:12)
[2018-11-30] MEDS: POTASSIUM CHLORIDE GT SCH (08:12)
[2018-11-30] MEDS: CHOLECALCIFEROL (VITAMIN D 3) 400 UNIT TABLET GT SCH ×2 (08:12→21:09)
[2018-11-30] MEDS: RIFAXIMIN 550 MG TABLET GT SCH ×2 (08:12→16:32)
[2018-11-30] MEDS: DICLOFENAC TOPICAL 100 GM GEL..GM. TP SCH ×2 (09:00→17:53)
[2018-11-30] MEDS: Z GUARD REMEDY 4 OZ OINT TP SCH ×2 (09:00→21:09)
[2018-11-30] MEDS: VITAMINS A AND D 56.7 GM TUBE TP SCH ×2 (09:00→21:10)
[2018-11-30] MEDS: HYDROGEN PEROXIDE 480 ML BOTTLE TP SCH ×2 (09:00→21:09)
[2018-11-30] MEDS: VITS A AND D/WHITE PET/LANOLIN 5 GM PACKET TP SCH ×4 (09:00→21:09)
[2018-11-30] MEDS: HYDROCODONE/APAP 7.5/325MG 1 EACH TABLET GT PRN ×3 (10:02→22:56)
[2018-11-30] MEDS: PRUNE JUICE GT SCH (11:00)
[2018-11-30] MEDS: [UNRECOGNIZED DRUG - OTHER] TP SCH ×2 (12:37→21:09)
[2018-11-30] MEDS: MAGNESIUM HYDROXIDE 30 ML UDC GT PRN (18:40)
[2018-11-30 20:04] VITALS: BP 129/71
--- NOTE | 2018-11-30 20:08 | NUR ---
RECEIVED TRACH PT ON COOL AEROSOL 28% 5L AT THIS TIME. AMBU BAG @ BEDSIDE. Q6 BREATHING TX GIVEN PER MD ORDERS WITH NO ADVERSE REACTION NOTED. SX DONE PRN. TRACH PATENT AND SECURED. NO RESP DISTRESS NOTED AT THIS TIME. WILL CONTINUE TO MONITOR PT.
[2018-11-30] MEDS: LATANOPROST EYE DROP 0.005% 2.5 ML BOTTLE EACHEYE SCH (21:10)
[2018-11-30] MEDS: LORATADINE 10 MG TABLET GT SCH (21:10)
[2018-11-30] MEDS: BENAZEPRIL HCL 5 MG TABLET GT SCH (21:10)
[2018-11-30] MEDS: PRAVASTATIN SODIUM 20 MG TABLET GT SCH (21:10)
[2018-12-01] MEDS: JEVITY 1.2 CAL 1,000 ML BOTTLE GT PRN ×2 (00:21→17:30)
[2018-12-01] MEDS: IPRATROPIUM NEB FS 0.5 MG/2.5 ML AMPUL.NEB NEB SCH ×4 (01:43→19:39)
[2018-12-01] MEDS: CHLORHEXIDINE GLUCONATE 15 ML UDC MM SCH ×2 (05:39→17:29)
[2018-12-01] MEDS: BISACODYL SUPP (10 MG) 10 MG/SUPP.RECT SUPP.RECT RC PRN (06:00)
[2018-12-01 07:47] VITALS: BP 135/75
[2018-12-01] MEDS: ASPIRIN 81 MG TAB.CHEW GT SCH (09:08)
[2018-12-01] MEDS: BIOTIN 5000 MCG GT SCH (09:08)
[2018-12-01] MEDS: Z GUARD REMEDY 4 OZ OINT TP SCH ×2 (09:08→21:14)
[2018-12-01] MEDS: RIFAXIMIN 550 MG TABLET GT SCH ×2 (09:08→17:29)
[2018-12-01] MEDS: POTASSIUM CHLORIDE GT SCH (09:08)
[2018-12-01] MEDS: HYDROGEN PEROXIDE 480 ML BOTTLE TP SCH ×2 (09:08→21:14)
[2018-12-01] MEDS: CHOLECALCIFEROL (VITAMIN D 3) 400 UNIT TABLET GT SCH ×2 (09:08→21:14)
[2018-12-01] MEDS: FINASTERIDE (5 MG) 5 MG TABLET GT SCH (09:08)
[2018-12-01] MEDS: VITS A AND D/WHITE PET/LANOLIN 5 GM PACKET TP SCH ×4 (09:09→21:14)
[2018-12-01] MEDS: DICLOFENAC TOPICAL 100 GM GEL..GM. TP SCH ×2 (09:09→17:29)
[2018-12-01] MEDS: VITAMINS A AND D 56.7 GM TUBE TP SCH ×2 (09:09→21:14)
[2018-12-01] MEDS: PRUNE JUICE GT SCH (11:00)
[2018-12-01] MEDS: [UNRECOGNIZED DRUG - OTHER] TP SCH ×2 (12:35→21:14)
[2018-12-01 19:56] VITALS: BP 129/65
[2018-12-01] MEDS: LATANOPROST EYE DROP 0.005% 2.5 ML BOTTLE EACHEYE SCH (21:15)
[2018-12-01] MEDS: LORATADINE 10 MG TABLET GT SCH (21:15)
[2018-12-01] MEDS: BENAZEPRIL HCL 5 MG TABLET GT SCH (21:15)
[2018-12-01] MEDS: PRAVASTATIN SODIUM 20 MG TABLET GT SCH (21:15)
[2018-12-02] MEDS: IPRATROPIUM NEB FS 0.5 MG/2.5 ML AMPUL.NEB NEB SCH ×4 (01:18→20:10)
[2018-12-02] MEDS: HYDROCODONE/APAP 7.5/325MG 1 EACH TABLET GT PRN (02:31)
[2018-12-02] MEDS: CHLORHEXIDINE GLUCONATE 15 ML UDC MM SCH ×2 (06:57→17:26)
[2018-12-02 07:24] VITALS: BP 140/68
[2018-12-02] MEDS: POTASSIUM CHLORIDE GT SCH (09:05)
[2018-12-02] MEDS: BIOTIN 5000 MCG GT SCH (09:05)
[2018-12-02] MEDS: HYDROGEN PEROXIDE 480 ML BOTTLE TP SCH ×2 (09:05→20:43)
[2018-12-02] MEDS: Z GUARD REMEDY 4 OZ OINT TP SCH ×2 (09:05→20:43)
[2018-12-02] MEDS: RIFAXIMIN 550 MG TABLET GT SCH ×2 (09:05→17:26)
[2018-12-02] MEDS: VITS A AND D/WHITE PET/LANOLIN 5 GM PACKET TP SCH ×4 (09:05→20:43)
[2018-12-02] MEDS: FINASTERIDE (5 MG) 5 MG TABLET GT SCH (09:05)
[2018-12-02] MEDS: VITAMINS A AND D 56.7 GM TUBE TP SCH ×2 (09:05→20:43)
[2018-12-02] MEDS: CHOLECALCIFEROL (VITAMIN D 3) 400 UNIT TABLET GT SCH ×2 (09:05→20:43)
[2018-12-02] MEDS: DICLOFENAC TOPICAL 100 GM GEL..GM. TP SCH ×2 (09:06→17:26)
[2018-12-02] MEDS: PRUNE JUICE GT SCH (11:00)
[2018-12-02] MEDS: [UNRECOGNIZED DRUG - OTHER] TP SCH ×2 (12:03→20:43)
[2018-12-02] MEDS: PRAVASTATIN SODIUM 20 MG TABLET GT SCH (22:14)
[2018-12-02] MEDS: LATANOPROST EYE DROP 0.005% 2.5 ML BOTTLE EACHEYE SCH (22:14)
[2018-12-02] MEDS: LORATADINE 10 MG TABLET GT SCH (22:14)
[2018-12-02] MEDS: BENAZEPRIL HCL 5 MG TABLET GT SCH (22:14)
[2018-12-03] MEDS: IPRATROPIUM NEB FS 0.5 MG/2.5 ML AMPUL.NEB NEB SCH ×4 (02:05→19:51)
[2018-12-03] MEDS: CHLORHEXIDINE GLUCONATE 15 ML UDC MM SCH ×2 (05:56→17:40)
[2018-12-03] MEDS: JEVITY 1.2 CAL 1,000 ML BOTTLE GT PRN (06:02)
[2018-12-03] MEDS: MAGNESIUM HYDROXIDE 30 ML UDC GT PRN (06:14)
[2018-12-03] MEDS: GLYCOPYRROLATE 1 MG TABLET GT PRN ×2 (06:15→21:35)
[2018-12-03 07:47] VITALS: BP 106/67
[2018-12-03] MEDS: BIOTIN 5000 MCG GT SCH (09:05)
[2018-12-03] MEDS: RIFAXIMIN 550 MG TABLET GT SCH ×2 (09:05→17:40)
[2018-12-03] MEDS: VITS A AND D/WHITE PET/LANOLIN 5 GM PACKET TP SCH ×4 (09:05→21:34)
[2018-12-03] MEDS: CHOLECALCIFEROL (VITAMIN D 3) 400 UNIT TABLET GT SCH ×2 (09:05→21:34)
[2018-12-03] MEDS: FINASTERIDE (5 MG) 5 MG TABLET GT SCH (09:05)
[2018-12-03] MEDS: ASPIRIN 81 MG TAB.CHEW GT SCH (09:05)
[2018-12-03] MEDS: POTASSIUM CHLORIDE GT SCH (09:05)
[2018-12-03] MEDS: Z GUARD REMEDY 4 OZ OINT TP SCH ×2 (09:05→21:34)
[2018-12-03] MEDS: VITAMINS A AND D 56.7 GM TUBE TP SCH ×2 (09:05→21:34)
[2018-12-03] MEDS: DICLOFENAC TOPICAL 100 GM GEL..GM. TP SCH ×2 (09:05→17:40)
[2018-12-03] MEDS: HYDROGEN PEROXIDE 480 ML BOTTLE TP SCH ×2 (09:05→21:34)
[2018-12-03] MEDS: PRUNE JUICE GT SCH (11:00)
[2018-12-03] MEDS: [UNRECOGNIZED DRUG - OTHER] TP SCH ×2 (12:54→21:34)
--- NOTE | 2018-12-03 13:07 | NUR ---
Pt's refused prune juice for pt. Explained benefits of giving prune juice regularly to pt but she still refused. She said Dr Edwards told her prune juice should be given as needed, but explained to her that the order is to give it routinely everyday. still refused. She said that prune juice gives her abdominal pain and he does not need it today since he already had a bowel movement.
--- NOTE | 2018-12-03 13:52 | NUR ---
Seen by Dr Edwards. Informed him that pt's refused prune juice because pt already had a bowel movement today. Dr Edwards said he does not have a problem with that and can refuse it. Also informed him that quality improvement coordinator recommended to decrease feeding of Jevity from 75 mL/hr to 65 mL/hr x 20 hours a day. He said it is fine. Addendum: 12/03/18 at 1404 by ROSEANNA HARRISON RN Notified pt's of new feeding rate. Dr Edwards said he gave permission to pt's to apply Superglue to pt's toenails to remove fungus. said she will buy it and apply it herself every week. Dr Edwards said will apply it weekly and file toenails with emery board.
[2018-12-03 19:55] VITALS: BP 143/77
[2018-12-03] MEDS: LATANOPROST EYE DROP 0.005% 2.5 ML BOTTLE EACHEYE SCH (21:34)
[2018-12-03] MEDS: LORATADINE 10 MG TABLET GT SCH (21:34)
[2018-12-03] MEDS: PRAVASTATIN SODIUM 20 MG TABLET GT SCH (21:35)
[2018-12-03] MEDS: BENAZEPRIL HCL 5 MG TABLET GT SCH (21:35)
[2018-12-04] MEDS: IPRATROPIUM NEB FS 0.5 MG/2.5 ML AMPUL.NEB NEB SCH ×4 (01:28→19:34)
[2018-12-04] MEDS: JEVITY 1.2 CAL 1,000 ML BOTTLE GT PRN (05:49)
[2018-12-04] MEDS: CHLORHEXIDINE GLUCONATE 15 ML UDC MM SCH ×2 (05:49→17:10)
[2018-12-04 07:38] VITALS: BP 124/74
[2018-12-04] MEDS: BIOTIN 5000 MCG GT SCH (09:02)
[2018-12-04] MEDS: POTASSIUM CHLORIDE GT SCH (09:02)
[2018-12-04] MEDS: FINASTERIDE (5 MG) 5 MG TABLET GT SCH (09:02)
[2018-12-04] MEDS: DICLOFENAC TOPICAL 100 GM GEL..GM. TP SCH ×2 (09:03→17:10)
[2018-12-04] MEDS: HYDROGEN PEROXIDE 480 ML BOTTLE TP SCH ×2 (09:03→21:17)
[2018-12-04] MEDS: VITS A AND D/WHITE PET/LANOLIN 5 GM PACKET TP SCH ×4 (09:03→21:18)
[2018-12-04] MEDS: VITAMINS A AND D 56.7 GM TUBE TP SCH ×2 (09:03→21:18)
[2018-12-04] MEDS: RIFAXIMIN 550 MG TABLET GT SCH ×2 (09:03→17:10)
[2018-12-04] MEDS: Z GUARD REMEDY 4 OZ OINT TP SCH ×2 (09:03→21:17)
[2018-12-04] MEDS: CHOLECALCIFEROL (VITAMIN D 3) 400 UNIT TABLET GT SCH ×2 (09:03→21:17)
[2018-12-04] MEDS: [UNRECOGNIZED DRUG - OTHER] TP SCH ×2 (13:00→21:17)
--- NOTE | 2018-12-04 13:00 | NUR ---
Seen and examined by Dr. Edwards, no new order given.
[2018-12-04 19:46] VITALS: BP 146/82
[2018-12-04] MEDS: PRAVASTATIN SODIUM 20 MG TABLET GT SCH (21:18)
[2018-12-04] MEDS: LORATADINE 10 MG TABLET GT SCH (21:18)
[2018-12-04] MEDS: BENAZEPRIL HCL 5 MG TABLET GT SCH (21:18)
[2018-12-04] MEDS: LATANOPROST EYE DROP 0.005% 2.5 ML BOTTLE EACHEYE SCH (21:18)
[2018-12-04] MEDS: HYDROCODONE/APAP 7.5/325MG 1 EACH TABLET GT PRN (21:21)
[2018-12-05] MEDS: IPRATROPIUM NEB FS 0.5 MG/2.5 ML AMPUL.NEB NEB SCH ×4 (01:36→20:05)
[2018-12-05] MEDS: CHLORHEXIDINE GLUCONATE 15 ML UDC MM SCH ×2 (05:48→17:10)
[2018-12-05 07:48] VITALS: BP 133/71
[2018-12-05] MEDS: RIFAXIMIN 550 MG TABLET GT SCH ×2 (08:53→17:10)
[2018-12-05] MEDS: HYDROGEN PEROXIDE 480 ML BOTTLE TP SCH ×2 (08:53→21:08)
[2018-12-05] MEDS: CHOLECALCIFEROL (VITAMIN D 3) 400 UNIT TABLET GT SCH ×2 (08:53→21:08)
[2018-12-05] MEDS: Z GUARD REMEDY 4 OZ OINT TP SCH ×2 (08:53→21:09)
[2018-12-05] MEDS: ASPIRIN 81 MG TAB.CHEW GT SCH (08:53)
[2018-12-05] MEDS: BIOTIN 5000 MCG GT SCH (08:53)
[2018-12-05] MEDS: VITS A AND D/WHITE PET/LANOLIN 5 GM PACKET TP SCH ×4 (08:53→21:09)
[2018-12-05] MEDS: POTASSIUM CHLORIDE GT SCH (08:53)
[2018-12-05] MEDS: FINASTERIDE (5 MG) 5 MG TABLET GT SCH (08:53)
[2018-12-05] MEDS: VITAMINS A AND D 56.7 GM TUBE TP SCH ×2 (08:54→21:09)
[2018-12-05] MEDS: DICLOFENAC TOPICAL 100 GM GEL..GM. TP SCH ×2 (08:54→17:10)
[2018-12-05] MEDS: PRUNE JUICE GT SCH (11:00)
[2018-12-05] MEDS: [UNRECOGNIZED DRUG - OTHER] TP SCH ×2 (13:00→21:08)
[2018-12-05] MEDS: HYDROCODONE/APAP 7.5/325MG 1 EACH TABLET GT PRN (14:08)
[2018-12-05 19:49] VITALS: BP 145/88
[2018-12-05] MEDS: PRAVASTATIN SODIUM 20 MG TABLET GT SCH (21:09)
[2018-12-05] MEDS: BENAZEPRIL HCL 5 MG TABLET GT SCH (21:09)
[2018-12-05] MEDS: LORATADINE 10 MG TABLET GT SCH (21:09)
[2018-12-05] MEDS: LATANOPROST EYE DROP 0.005% 2.5 ML BOTTLE EACHEYE SCH (21:09)
[2018-12-06] MEDS: IPRATROPIUM NEB FS 0.5 MG/2.5 ML AMPUL.NEB NEB SCH ×4 (01:09→19:45)
[2018-12-06] MEDS: CHLORHEXIDINE GLUCONATE 15 ML UDC MM SCH ×2 (05:46→18:26)
[2018-12-06 08:10] VITALS: BP 127/79
[2018-12-06] MEDS: VITS A AND D/WHITE PET/LANOLIN 5 GM PACKET TP SCH ×4 (08:57→21:03)
[2018-12-06] MEDS: VITAMINS A AND D 56.7 GM TUBE TP SCH ×2 (08:57→21:04)
[2018-12-06] MEDS: RIFAXIMIN 550 MG TABLET GT SCH ×2 (08:57→16:37)
[2018-12-06] MEDS: HYDROGEN PEROXIDE 480 ML BOTTLE TP SCH ×2 (08:57→21:03)
[2018-12-06] MEDS: POTASSIUM CHLORIDE GT SCH (08:57)
[2018-12-06] MEDS: Z GUARD REMEDY 4 OZ OINT TP SCH ×2 (08:57→21:03)
[2018-12-06] MEDS: FINASTERIDE (5 MG) 5 MG TABLET GT SCH (08:57)
[2018-12-06] MEDS: CHOLECALCIFEROL (VITAMIN D 3) 400 UNIT TABLET GT SCH ×2 (08:57→21:03)
[2018-12-06] MEDS: BIOTIN 5000 MCG GT SCH (08:57)
[2018-12-06] MEDS: DICLOFENAC TOPICAL 100 GM GEL..GM. TP SCH ×2 (08:58→16:37)
--- NOTE | 2018-12-06 10:04 | NUR ---
Seen and examined by Dr. Mejia, NNO given.
[2018-12-06] MEDS: PRUNE JUICE GT SCH (11:00)
[2018-12-06] MEDS: [UNRECOGNIZED DRUG - OTHER] TP SCH ×2 (13:00→21:03)
[2018-12-06] MEDS: JEVITY 1.2 CAL 1,000 ML BOTTLE GT PRN (16:38)
[2018-12-06 20:34] VITALS: BP 138/82
[2018-12-06] MEDS: LATANOPROST EYE DROP 0.005% 2.5 ML BOTTLE EACHEYE SCH (21:04)
[2018-12-06] MEDS: LORATADINE 10 MG TABLET GT SCH (21:04)
[2018-12-06] MEDS: BENAZEPRIL HCL 5 MG TABLET GT SCH (21:04)
[2018-12-06] MEDS: PRAVASTATIN SODIUM 20 MG TABLET GT SCH (21:04)
[2018-12-07] MEDS: IPRATROPIUM NEB FS 0.5 MG/2.5 ML AMPUL.NEB NEB SCH ×4 (01:32→19:26)
[2018-12-07] MEDS: CHLORHEXIDINE GLUCONATE 15 ML UDC MM SCH ×2 (06:11→17:25)
--- NOTE | 2018-12-07 07:45 | NUR ---
RT PATIENT REC'D TRACHED ON COOL AEROSOL FRANCIE WELL. TRACH SECURE AND IN PROPER POSITION. PATIENT SUCTIONED WITH MOD AMT PALE SEMITHICK SECRETIONS. AMBU BAG AT HOB Addendum: 12/07/18 at 0917 by CURT COLLINS RT Amended: Links added.
[2018-12-07] MEDS: ASPIRIN 81 MG TAB.CHEW GT SCH (08:38)
[2018-12-07] MEDS: POTASSIUM CHLORIDE GT SCH (08:38)
[2018-12-07] MEDS: RIFAXIMIN 550 MG TABLET GT SCH ×2 (08:39→17:25)
[2018-12-07] MEDS: BIOTIN 5000 MCG GT SCH (08:39)
[2018-12-07] MEDS: FINASTERIDE (5 MG) 5 MG TABLET GT SCH (08:39)
[2018-12-07] MEDS: CHOLECALCIFEROL (VITAMIN D 3) 400 UNIT TABLET GT SCH ×2 (08:39→21:17)
[2018-12-07] MEDS: HYDROGEN PEROXIDE 480 ML BOTTLE TP SCH ×2 (09:00→21:17)
[2018-12-07] MEDS: VITAMINS A AND D 56.7 GM TUBE TP SCH ×2 (09:00→21:17)
[2018-12-07] MEDS: DICLOFENAC TOPICAL 100 GM GEL..GM. TP SCH ×2 (09:00→17:25)
[2018-12-07] MEDS: VITS A AND D/WHITE PET/LANOLIN 5 GM PACKET TP SCH ×4 (09:00→21:17)
[2018-12-07] MEDS: Z GUARD REMEDY 4 OZ OINT TP SCH ×2 (09:00→21:17)
[2018-12-07] MEDS: PRUNE JUICE GT SCH (11:21)
[2018-12-07] MEDS: JEVITY 1.2 CAL 1,000 ML BOTTLE GT PRN (11:21)
[2018-12-07] MEDS: HYDROCODONE/APAP 7.5/325MG 1 EACH TABLET GT PRN ×2 (11:48→20:51)
[2018-12-07] MEDS: [UNRECOGNIZED DRUG - OTHER] TP SCH ×2 (12:52→21:17)
[2018-12-07 20:25] VITALS: BP 137/79
[2018-12-07] MEDS: GLYCOPYRROLATE 1 MG TABLET GT PRN (20:52)
[2018-12-07] MEDS: LATANOPROST EYE DROP 0.005% 2.5 ML BOTTLE EACHEYE SCH (21:17)
[2018-12-07] MEDS: LORATADINE 10 MG TABLET GT SCH (21:17)
[2018-12-07] MEDS: PRAVASTATIN SODIUM 20 MG TABLET GT SCH (21:18)
[2018-12-07] MEDS: BENAZEPRIL HCL 5 MG TABLET GT SCH (21:18)
[2018-12-08] MEDS: IPRATROPIUM NEB FS 0.5 MG/2.5 ML AMPUL.NEB NEB SCH ×4 (01:26→19:53)
[2018-12-08] MEDS: CHLORHEXIDINE GLUCONATE 15 ML UDC MM SCH ×2 (05:40→18:00)
[2018-12-08] MEDS: JEVITY 1.2 CAL 1,000 ML BOTTLE GT PRN ×2 (05:50→23:35)
[2018-12-08 08:01] VITALS: BP 115/68
[2018-12-08] MEDS: POTASSIUM CHLORIDE GT SCH (09:31)
[2018-12-08] MEDS: BIOTIN 5000 MCG GT SCH (09:31)
[2018-12-08] MEDS: FINASTERIDE (5 MG) 5 MG TABLET GT SCH (09:31)
[2018-12-08] MEDS: Z GUARD REMEDY 4 OZ OINT TP SCH ×2 (09:31→20:33)
[2018-12-08] MEDS: CHOLECALCIFEROL (VITAMIN D 3) 400 UNIT TABLET GT SCH ×2 (09:31→20:33)
[2018-12-08] MEDS: HYDROGEN PEROXIDE 480 ML BOTTLE TP SCH ×2 (09:31→20:33)
[2018-12-08] MEDS: RIFAXIMIN 550 MG TABLET GT SCH ×2 (09:31→17:00)
[2018-12-08] MEDS: DICLOFENAC TOPICAL 100 GM GEL..GM. TP SCH ×2 (09:32→17:00)
[2018-12-08] MEDS: VITS A AND D/WHITE PET/LANOLIN 5 GM PACKET TP SCH ×4 (09:32→20:33)
[2018-12-08] MEDS: VITAMINS A AND D 56.7 GM TUBE TP SCH ×2 (09:32→20:33)
[2018-12-08] MEDS: PRUNE JUICE GT SCH (11:49)
[2018-12-08] MEDS: [UNRECOGNIZED DRUG - OTHER] TP SCH ×2 (12:07→20:33)
[2018-12-08 20:03] VITALS: BP 155/88
[2018-12-08] MEDS: GLYCOPYRROLATE 1 MG TABLET GT PRN (20:33)
[2018-12-08] MEDS: HYDROCODONE/APAP 7.5/325MG 1 EACH TABLET GT PRN (20:34)
[2018-12-08] MEDS: LORATADINE 10 MG TABLET GT SCH (21:12)
[2018-12-08] MEDS: LATANOPROST EYE DROP 0.005% 2.5 ML BOTTLE EACHEYE SCH (21:12)
[2018-12-08] MEDS: BENAZEPRIL HCL 5 MG TABLET GT SCH (21:12)
[2018-12-08] MEDS: PRAVASTATIN SODIUM 20 MG TABLET GT SCH (21:13)
[2018-12-09] MEDS: IPRATROPIUM NEB FS 0.5 MG/2.5 ML AMPUL.NEB NEB SCH ×4 (01:43→19:52)
[2018-12-09] MEDS: CHLORHEXIDINE GLUCONATE 15 ML UDC MM SCH ×2 (05:21→18:41)
[2018-12-09] MEDS: SIMETHICONE SUSP 40 MG/0.6 ML BOTTLE GT PRN (05:22)
[2018-12-09] MEDS: MAGNESIUM HYDROXIDE 30 ML UDC GT PRN (05:22)
[2018-12-09 07:49] VITALS: BP 110/69
[2018-12-09] MEDS: ASPIRIN 81 MG TAB.CHEW GT SCH (08:30)
[2018-12-09] MEDS: DICLOFENAC TOPICAL 100 GM GEL..GM. TP SCH ×2 (09:00→16:52)
[2018-12-09] MEDS: Z GUARD REMEDY 4 OZ OINT TP SCH ×2 (09:00→20:01)
[2018-12-09] MEDS: VITAMINS A AND D 56.7 GM TUBE TP SCH ×2 (09:00→20:01)
[2018-12-09] MEDS: VITS A AND D/WHITE PET/LANOLIN 5 GM PACKET TP SCH ×4 (09:00→20:01)
[2018-12-09] MEDS: HYDROGEN PEROXIDE 480 ML BOTTLE TP SCH ×2 (09:00→20:01)
[2018-12-09] MEDS: FINASTERIDE (5 MG) 5 MG TABLET GT SCH (09:31)
[2018-12-09] MEDS: CHOLECALCIFEROL (VITAMIN D 3) 400 UNIT TABLET GT SCH ×2 (09:31→20:01)
[2018-12-09] MEDS: POTASSIUM CHLORIDE GT SCH (09:31)
[2018-12-09] MEDS: RIFAXIMIN 550 MG TABLET GT SCH ×2 (09:31→16:51)
[2018-12-09] MEDS: BIOTIN 5000 MCG GT SCH (09:31)
[2018-12-09] MEDS: PRUNE JUICE GT SCH (11:00)
[2018-12-09] MEDS: [UNRECOGNIZED DRUG - OTHER] TP SCH ×2 (13:00→20:01)
[2018-12-09] MEDS: ALBUTEROL HALF STRENGTH 1.25 MG/3 ML VIAL.NEB NEB PRN (14:01)
[2018-12-09] MEDS: GLYCOPYRROLATE 1 MG TABLET GT PRN (16:51)
[2018-12-09 20:00] VITALS: BP 130/67
[2018-12-09] MEDS: HYDROCODONE/APAP 7.5/325MG 1 EACH TABLET GT PRN (20:01)
[2018-12-09] MEDS: BENAZEPRIL HCL 5 MG TABLET GT SCH (21:14)
[2018-12-09] MEDS: LORATADINE 10 MG TABLET GT SCH (21:14)
[2018-12-09] MEDS: LATANOPROST EYE DROP 0.005% 2.5 ML BOTTLE EACHEYE SCH (21:14)
[2018-12-09] MEDS: PRAVASTATIN SODIUM 20 MG TABLET GT SCH (21:14)
[2018-12-10] MEDS: JEVITY 1.2 CAL 1,000 ML BOTTLE GT PRN ×2 (01:00→21:14)
[2018-12-10] MEDS: GLYCOPYRROLATE 1 MG TABLET GT PRN ×2 (01:00→19:21)
[2018-12-10] MEDS: IPRATROPIUM NEB FS 0.5 MG/2.5 ML AMPUL.NEB NEB SCH ×4 (02:09→19:25)
[2018-12-10] MEDS: CHLORHEXIDINE GLUCONATE 15 ML UDC MM SCH ×2 (05:39→17:31)
[2018-12-10] MEDS: BISACODYL SUPP (10 MG) 10 MG/SUPP.RECT SUPP.RECT RC PRN (05:42)
[2018-12-10 07:34] VITALS: BP 144/82
[2018-12-10] MEDS: CHOLECALCIFEROL (VITAMIN D 3) 400 UNIT TABLET GT SCH ×2 (08:04→20:05)
[2018-12-10] MEDS: POTASSIUM CHLORIDE GT SCH (08:04)
[2018-12-10] MEDS: RIFAXIMIN 550 MG TABLET GT SCH ×2 (08:04→16:51)
[2018-12-10] MEDS: FINASTERIDE (5 MG) 5 MG TABLET GT SCH (08:04)
[2018-12-10] MEDS: BIOTIN 5000 MCG GT SCH (08:04)
[2018-12-10] MEDS: HYDROGEN PEROXIDE 480 ML BOTTLE TP SCH ×2 (08:05→20:05)
[2018-12-10] MEDS: VITS A AND D/WHITE PET/LANOLIN 5 GM PACKET TP SCH ×4 (09:58→20:06)
[2018-12-10] MEDS: Z GUARD REMEDY 4 OZ OINT TP SCH ×2 (09:58→20:05)
[2018-12-10] MEDS: DICLOFENAC TOPICAL 100 GM GEL..GM. TP SCH ×2 (09:59→16:51)
[2018-12-10] MEDS: VITAMINS A AND D 56.7 GM TUBE TP SCH ×2 (09:59→20:06)
[2018-12-10] MEDS: PRUNE JUICE GT SCH (11:00)
[2018-12-10] MEDS: [UNRECOGNIZED DRUG - OTHER] TP SCH ×2 (12:20→20:05)
[2018-12-10] MEDS: HYDROCODONE/APAP 7.5/325MG 1 EACH TABLET GT PRN (19:21)
[2018-12-10 19:40] VITALS: BP 138/68
[2018-12-10] MEDS: LORATADINE 10 MG TABLET GT SCH (21:14)
[2018-12-10] MEDS: LATANOPROST EYE DROP 0.005% 2.5 ML BOTTLE EACHEYE SCH (21:14)
[2018-12-10] MEDS: PRAVASTATIN SODIUM 20 MG TABLET GT SCH (21:14)
[2018-12-10] MEDS: BENAZEPRIL HCL 5 MG TABLET GT SCH (21:14)
[2018-12-11] MEDS: IPRATROPIUM NEB FS 0.5 MG/2.5 ML AMPUL.NEB NEB SCH ×4 (01:20→20:12)
[2018-12-11] MEDS: GLYCOPYRROLATE 1 MG TABLET GT PRN (04:02)
[2018-12-11] MEDS: HYDROCODONE/APAP 7.5/325MG 1 EACH TABLET GT PRN (04:02)
[2018-12-11] MEDS: CHLORHEXIDINE GLUCONATE 15 ML UDC MM SCH ×2 (05:22→17:47)
--- NOTE | 2018-12-11 07:36 | NUR ---
RT PATIENT REC'D TRACHED ON COOL AEROSOL FRANCIE WELL. TRACH SECURE AND IN PROPER POSITION. PATIENT SUCTIONED WITH MOD AMT PALE SEMITHICK SECRETIONS. AMBU BAG AT HOB Addendum: 12/11/18 at 1559 by CURT COLLINS RT Amended: Links added.
[2018-12-11 07:55] VITALS: BP 144/93
[2018-12-11] MEDS: BIOTIN 5000 MCG GT SCH (08:32)
[2018-12-11] MEDS: POTASSIUM CHLORIDE GT SCH (08:32)
[2018-12-11] MEDS: RIFAXIMIN 550 MG TABLET GT SCH ×2 (08:32→16:17)
[2018-12-11] MEDS: FINASTERIDE (5 MG) 5 MG TABLET GT SCH (08:32)
[2018-12-11] MEDS: CHOLECALCIFEROL (VITAMIN D 3) 400 UNIT TABLET GT SCH ×2 (08:32→20:41)
[2018-12-11] MEDS: ASPIRIN 81 MG TAB.CHEW GT SCH (08:32)
[2018-12-11] MEDS: HYDROGEN PEROXIDE 480 ML BOTTLE TP SCH ×2 (09:43→20:41)
[2018-12-11] MEDS: VITS A AND D/WHITE PET/LANOLIN 5 GM PACKET TP SCH ×4 (09:44→20:41)
[2018-12-11] MEDS: DICLOFENAC TOPICAL 100 GM GEL..GM. TP SCH ×2 (09:44→16:18)
[2018-12-11] MEDS: Z GUARD REMEDY 4 OZ OINT TP SCH ×2 (09:44→20:41)
[2018-12-11] MEDS: VITAMINS A AND D 56.7 GM TUBE TP SCH ×2 (09:44→20:41)
[2018-12-11] MEDS: PRUNE JUICE GT SCH (10:40)
[2018-12-11] MEDS: [UNRECOGNIZED DRUG - OTHER] TP SCH ×2 (12:22→20:41)
[2018-12-11] MEDS: JEVITY 1.2 CAL 1,000 ML BOTTLE GT PRN (16:17)
[2018-12-11 20:07] VITALS: BP 145/77
[2018-12-11] MEDS: LORATADINE 10 MG TABLET GT SCH (22:04)
[2018-12-11] MEDS: LATANOPROST EYE DROP 0.005% 2.5 ML BOTTLE EACHEYE SCH (22:04)
[2018-12-11] MEDS: PRAVASTATIN SODIUM 20 MG TABLET GT SCH (22:05)
[2018-12-11] MEDS: BENAZEPRIL HCL 5 MG TABLET GT SCH (22:05)
[2018-12-12] MEDS: IPRATROPIUM NEB FS 0.5 MG/2.5 ML AMPUL.NEB NEB SCH ×4 (01:43→19:25)
[2018-12-12] MEDS: CHLORHEXIDINE GLUCONATE 15 ML UDC MM SCH ×2 (06:03→17:40)
[2018-12-12 07:45] VITALS: BP 138/67
[2018-12-12] MEDS: FINASTERIDE (5 MG) 5 MG TABLET GT SCH (08:11)
[2018-12-12] MEDS: POTASSIUM CHLORIDE GT SCH (08:11)
[2018-12-12] MEDS: RIFAXIMIN 550 MG TABLET GT SCH ×2 (08:11→17:40)
[2018-12-12] MEDS: BIOTIN 5000 MCG GT SCH (08:11)
[2018-12-12] MEDS: CHOLECALCIFEROL (VITAMIN D 3) 400 UNIT TABLET GT SCH ×2 (08:11→21:33)
[2018-12-12] MEDS: Z GUARD REMEDY 4 OZ OINT TP SCH ×2 (09:30→21:33)
[2018-12-12] MEDS: VITS A AND D/WHITE PET/LANOLIN 5 GM PACKET TP SCH ×4 (09:30→21:33)
[2018-12-12] MEDS: HYDROGEN PEROXIDE 480 ML BOTTLE TP SCH ×2 (09:30→21:33)
[2018-12-12] MEDS: DICLOFENAC TOPICAL 100 GM GEL..GM. TP SCH ×2 (09:31→17:40)
[2018-12-12] MEDS: VITAMINS A AND D 56.7 GM TUBE TP SCH ×2 (09:31→21:34)
[2018-12-12] MEDS: HYDROCODONE/APAP 7.5/325MG 1 EACH TABLET GT PRN (09:31)
[2018-12-12] MEDS: PRUNE JUICE GT SCH (11:00)
[2018-12-12] MEDS: [UNRECOGNIZED DRUG - OTHER] TP SCH ×2 (13:19→21:33)
[2018-12-12] MEDS: JEVITY 1.2 CAL 1,000 ML BOTTLE GT PRN (17:39)
[2018-12-12 20:04] VITALS: BP 140/80
[2018-12-12] MEDS: LATANOPROST EYE DROP 0.005% 2.5 ML BOTTLE EACHEYE SCH (21:34)
[2018-12-12] MEDS: LORATADINE 10 MG TABLET GT SCH (21:34)
[2018-12-12] MEDS: PRAVASTATIN SODIUM 20 MG TABLET GT SCH (21:35)
[2018-12-12] MEDS: BENAZEPRIL HCL 5 MG TABLET GT SCH (21:35)
[2018-12-13] MEDS: IPRATROPIUM NEB FS 0.5 MG/2.5 ML AMPUL.NEB NEB SCH ×4 (02:09→20:54)
[2018-12-13] MEDS: CHLORHEXIDINE GLUCONATE 15 ML UDC MM SCH ×2 (05:52→17:33)
[2018-12-13 07:30] VITALS: BP 159/72
[2018-12-13 08:00] VITALS: BP 159/72
[2018-12-13] MEDS: HYDROGEN PEROXIDE 480 ML BOTTLE TP SCH ×2 (09:00→21:27)
[2018-12-13] MEDS: VITAMINS A AND D 56.7 GM TUBE TP SCH ×2 (09:00→21:28)
[2018-12-13] MEDS: VITS A AND D/WHITE PET/LANOLIN 5 GM PACKET TP SCH ×4 (09:00→21:28)
[2018-12-13] MEDS: Z GUARD REMEDY 4 OZ OINT TP SCH ×2 (09:00→21:27)
[2018-12-13] MEDS: ASPIRIN 81 MG TAB.CHEW GT SCH (09:10)
[2018-12-13] MEDS: POTASSIUM CHLORIDE GT SCH (09:12)
[2018-12-13] MEDS: BIOTIN 5000 MCG GT SCH (09:12)
[2018-12-13] MEDS: FINASTERIDE (5 MG) 5 MG TABLET GT SCH (09:12)
[2018-12-13] MEDS: RIFAXIMIN 550 MG TABLET GT SCH ×2 (09:13→17:31)
[2018-12-13] MEDS: CHOLECALCIFEROL (VITAMIN D 3) 400 UNIT TABLET GT SCH ×2 (09:16→21:27)
[2018-12-13] MEDS: DICLOFENAC TOPICAL 100 GM GEL..GM. TP SCH ×2 (09:18→17:33)
--- NOTE | 2018-12-13 09:20 | NUR ---
Seen and examined by Dr. Mejia, NNO given.
[2018-12-13] MEDS: PRUNE JUICE GT SCH (11:09)
[2018-12-13] MEDS: [UNRECOGNIZED DRUG - OTHER] TP SCH ×2 (13:47→21:27)
--- NOTE | 2018-12-13 14:00 | NUR ---
When resident was up in wheelchair, was asked to release EZ belt and able to do so on command without difficulty, even attempts to put it back. present and wants to continue with EZ belt order as well as continue use of bed alarm for safety. Per staff observation sound of bed alarm does not deter resident from moving on bed.
[2018-12-13] MEDS: JEVITY 1.2 CAL 1,000 ML BOTTLE GT PRN (17:30)
[2018-12-13] MEDS: PRAVASTATIN SODIUM 20 MG TABLET GT SCH (21:28)
[2018-12-13] MEDS: LORATADINE 10 MG TABLET GT SCH (21:28)
[2018-12-13] MEDS: LATANOPROST EYE DROP 0.005% 2.5 ML BOTTLE EACHEYE SCH (21:28)
[2018-12-13] MEDS: BENAZEPRIL HCL 5 MG TABLET GT SCH (21:28)
[2018-12-13] MEDS: GLYCOPYRROLATE 1 MG TABLET GT PRN (22:28)
[2018-12-13 23:04] VITALS: BP 106/66
[2018-12-14] MEDS: IPRATROPIUM NEB FS 0.5 MG/2.5 ML AMPUL.NEB NEB SCH ×4 (01:04→19:49)
[2018-12-14] MEDS: CHLORHEXIDINE GLUCONATE 15 ML UDC MM SCH ×2 (05:37→17:21)
[2018-12-14 08:00] VITALS: BP 116/78
--- NOTE | 2018-12-14 09:08 | NUR ---
RT NOTE PATIENT REC'D TRACHED ON COOL AEROSOL FRANCIE WELL. TRACH SECURE AND IN PROPER POSITION. PATIENT SUCTIONED WITH MOD AMT PALE SEMITHICK SECRETIONS. AMBU BAG AT HOB Addendum: 12/14/18 at 0908 by KRYSTLE ELIZABETH RT Amended: Links added.
[2018-12-14] MEDS: DICLOFENAC TOPICAL 100 GM GEL..GM. TP SCH ×2 (09:09→17:21)
[2018-12-14] MEDS: POTASSIUM CHLORIDE GT SCH (09:09)
[2018-12-14] MEDS: FINASTERIDE (5 MG) 5 MG TABLET GT SCH (09:09)
[2018-12-14] MEDS: HYDROGEN PEROXIDE 480 ML BOTTLE TP SCH ×2 (09:09→21:09)
[2018-12-14] MEDS: VITS A AND D/WHITE PET/LANOLIN 5 GM PACKET TP SCH ×4 (09:09→21:09)
[2018-12-14] MEDS: Z GUARD REMEDY 4 OZ OINT TP SCH ×2 (09:09→21:09)
[2018-12-14] MEDS: RIFAXIMIN 550 MG TABLET GT SCH ×2 (09:09→17:21)
[2018-12-14] MEDS: VITAMINS A AND D 56.7 GM TUBE TP SCH ×2 (09:09→21:09)
[2018-12-14] MEDS: CHOLECALCIFEROL (VITAMIN D 3) 400 UNIT TABLET GT SCH ×2 (09:09→21:08)
[2018-12-14] MEDS: BIOTIN 5000 MCG GT SCH (09:09)
[2018-12-14] MEDS: PRUNE JUICE GT SCH (11:00)
[2018-12-14] MEDS: [UNRECOGNIZED DRUG - OTHER] TP SCH ×2 (13:00→21:09)
[2018-12-14] MEDS: MAGNESIUM HYDROXIDE 30 ML UDC GT PRN (18:41)
[2018-12-14] MEDS: BISACODYL SUPP (10 MG) 10 MG/SUPP.RECT SUPP.RECT RC PRN (18:41)
[2018-12-14 20:03] VITALS: BP 152/89
[2018-12-14] MEDS: BENAZEPRIL HCL 5 MG TABLET GT SCH (21:09)
[2018-12-14] MEDS: LORATADINE 10 MG TABLET GT SCH (21:09)
[2018-12-14] MEDS: PRAVASTATIN SODIUM 20 MG TABLET GT SCH (21:09)
[2018-12-14] MEDS: LATANOPROST EYE DROP 0.005% 2.5 ML BOTTLE EACHEYE SCH (21:09)
[2018-12-14] MEDS: HYDROCODONE/APAP 7.5/325MG 1 EACH TABLET GT PRN (22:36)
[2018-12-15] MEDS: IPRATROPIUM NEB FS 0.5 MG/2.5 ML AMPUL.NEB NEB SCH ×4 (01:27→19:47)
[2018-12-15] MEDS: CHLORHEXIDINE GLUCONATE 15 ML UDC MM SCH ×2 (05:33→17:41)
[2018-12-15] MEDS: JEVITY 1.2 CAL 1,000 ML BOTTLE GT PRN (05:33)
[2018-12-15 07:51] VITALS: BP 137/74
[2018-12-15] MEDS: CHOLECALCIFEROL (VITAMIN D 3) 400 UNIT TABLET GT SCH ×2 (08:02→20:23)
[2018-12-15] MEDS: POTASSIUM CHLORIDE GT SCH (08:02)
[2018-12-15] MEDS: BIOTIN 5000 MCG GT SCH (08:02)
[2018-12-15] MEDS: ASPIRIN 81 MG TAB.CHEW GT SCH (08:02)
[2018-12-15] MEDS: RIFAXIMIN 550 MG TABLET GT SCH ×2 (08:02→16:56)
[2018-12-15] MEDS: HYDROGEN PEROXIDE 480 ML BOTTLE TP SCH ×2 (08:02→20:23)
[2018-12-15] MEDS: FINASTERIDE (5 MG) 5 MG TABLET GT SCH (08:02)
[2018-12-15] MEDS: Z GUARD REMEDY 4 OZ OINT TP SCH ×2 (08:02→20:23)
[2018-12-15] MEDS: VITAMINS A AND D 56.7 GM TUBE TP SCH ×2 (08:02→20:24)
[2018-12-15] MEDS: VITS A AND D/WHITE PET/LANOLIN 5 GM PACKET TP SCH ×4 (08:02→20:23)
[2018-12-15] MEDS: DICLOFENAC TOPICAL 100 GM GEL..GM. TP SCH ×2 (08:03→16:56)
[2018-12-15] MEDS: PRUNE JUICE GT SCH (11:00)
[2018-12-15] MEDS: [UNRECOGNIZED DRUG - OTHER] TP SCH ×2 (12:19→20:23)
[2018-12-15] MEDS: HYDROCODONE/APAP 7.5/325MG 1 EACH TABLET GT PRN (12:20)
[2018-12-15 20:32] VITALS: BP 145/71
[2018-12-15] MEDS: BENAZEPRIL HCL 5 MG TABLET GT SCH (21:35)
[2018-12-15] MEDS: PRAVASTATIN SODIUM 20 MG TABLET GT SCH (21:35)
[2018-12-15] MEDS: LATANOPROST EYE DROP 0.005% 2.5 ML BOTTLE EACHEYE SCH (21:35)
[2018-12-15] MEDS: LORATADINE 10 MG TABLET GT SCH (21:35)
[2018-12-15] MEDS: GLYCOPYRROLATE 1 MG TABLET GT PRN (21:36)
--- NOTE | 2018-12-15 22:39 | NUR ---
PT RCVD DEBRA'D ON COOL AEROSOL. TX FRANCIE WELL. SX DONE. PT DEBRA IS PATENT AND SECURE. AMBU BAG AT BEDSIDE. Addendum: 12/15/18 at 2241 by LISETH MOCK RT Amended: Links added.
[2018-12-16] MEDS: IPRATROPIUM NEB FS 0.5 MG/2.5 ML AMPUL.NEB NEB SCH ×4 (01:04→19:35)
[2018-12-16] MEDS: CHLORHEXIDINE GLUCONATE 15 ML UDC MM SCH ×2 (05:31→18:18)
[2018-12-16] MEDS: JEVITY 1.2 CAL 1,000 ML BOTTLE GT PRN (05:32)
[2018-12-16] MEDS: GLYCOPYRROLATE 1 MG TABLET GT PRN ×2 (05:32→20:46)
[2018-12-16 07:44] VITALS: BP 142/90
[2018-12-16] MEDS: HYDROGEN PEROXIDE 480 ML BOTTLE TP SCH ×2 (08:24→20:42)
[2018-12-16] MEDS: VITS A AND D/WHITE PET/LANOLIN 5 GM PACKET TP SCH ×4 (08:24→20:42)
[2018-12-16] MEDS: RIFAXIMIN 550 MG TABLET GT SCH ×2 (08:24→17:00)
[2018-12-16] MEDS: POTASSIUM CHLORIDE GT SCH (08:24)
[2018-12-16] MEDS: FINASTERIDE (5 MG) 5 MG TABLET GT SCH (08:24)
[2018-12-16] MEDS: CHOLECALCIFEROL (VITAMIN D 3) 400 UNIT TABLET GT SCH ×2 (08:24→20:42)
[2018-12-16] MEDS: Z GUARD REMEDY 4 OZ OINT TP SCH ×2 (08:24→20:42)
[2018-12-16] MEDS: BIOTIN 5000 MCG GT SCH (08:24)
[2018-12-16] MEDS: VITAMINS A AND D 56.7 GM TUBE TP SCH ×2 (08:25→20:42)
[2018-12-16] MEDS: DICLOFENAC TOPICAL 100 GM GEL..GM. TP SCH ×2 (08:25→17:00)
[2018-12-16] MEDS: PRUNE JUICE GT SCH (11:00)
[2018-12-16] MEDS: [UNRECOGNIZED DRUG - OTHER] TP SCH ×2 (13:39→20:42)
--- NOTE | 2018-12-16 14:02 | NUR ---
SKIP made an appointment with brick kiln worker Dr. Holliday for 12/23/18
--- NOTE | 2018-12-16 20:06 | NUR ---
PT RCVD DEBRA'D ON COOL AEROSOL. TX FRANCIE WELL. SX DONE. PT DEBRA IS PATENT AND SECURE. AMBU BAG AT BEDSIDE. Addendum: 12/16/18 at 2006 by LISETH MOCK RT Amended: Links added.
[2018-12-16] MEDS: HYDROCODONE/APAP 7.5/325MG 1 EACH TABLET GT PRN (20:46)
[2018-12-16] MEDS: LATANOPROST EYE DROP 0.005% 2.5 ML BOTTLE EACHEYE SCH (21:32)
[2018-12-16] MEDS: LORATADINE 10 MG TABLET GT SCH (21:32)
[2018-12-16] MEDS: PRAVASTATIN SODIUM 20 MG TABLET GT SCH (21:33)
[2018-12-16] MEDS: BENAZEPRIL HCL 5 MG TABLET GT SCH (21:33)
[2018-12-16 23:01] VITALS: BP 145/62
[2018-12-17] MEDS: IPRATROPIUM NEB FS 0.5 MG/2.5 ML AMPUL.NEB NEB SCH ×4 (00:47→19:40)
[2018-12-17] MEDS: JEVITY 1.2 CAL 1,000 ML BOTTLE GT PRN ×2 (05:02→20:26)
[2018-12-17] MEDS: CHLORHEXIDINE GLUCONATE 15 ML UDC MM SCH ×2 (05:02→17:57)
[2018-12-17 08:00] VITALS: BP 126/77
[2018-12-17] MEDS: ASPIRIN 81 MG TAB.CHEW GT SCH (08:58)
[2018-12-17] MEDS: FINASTERIDE (5 MG) 5 MG TABLET GT SCH (08:59)
[2018-12-17] MEDS: RIFAXIMIN 550 MG TABLET GT SCH ×2 (08:59→17:57)
[2018-12-17] MEDS: CHOLECALCIFEROL (VITAMIN D 3) 400 UNIT TABLET GT SCH ×2 (08:59→20:25)
[2018-12-17] MEDS: POTASSIUM CHLORIDE GT SCH (08:59)
[2018-12-17] MEDS: BIOTIN 5000 MCG GT SCH (08:59)
[2018-12-17] MEDS: VITAMINS A AND D 56.7 GM TUBE TP SCH ×2 (09:00→20:25)
[2018-12-17] MEDS: DICLOFENAC TOPICAL 100 GM GEL..GM. TP SCH ×2 (09:00→17:57)
[2018-12-17] MEDS: HYDROGEN PEROXIDE 480 ML BOTTLE TP SCH ×2 (09:00→20:25)
[2018-12-17] MEDS: Z GUARD REMEDY 4 OZ OINT TP SCH ×2 (09:00→20:25)
[2018-12-17] MEDS: VITS A AND D/WHITE PET/LANOLIN 5 GM PACKET TP SCH ×4 (09:00→20:25)
[2018-12-17] MEDS: PRUNE JUICE GT SCH (11:00)
[2018-12-17] MEDS: [UNRECOGNIZED DRUG - OTHER] TP SCH ×2 (13:40→20:25)
[2018-12-17 19:45] VITALS: BP 143/84
[2018-12-17] MEDS: GLYCOPYRROLATE 1 MG TABLET GT PRN (20:26)
[2018-12-17] MEDS: BENAZEPRIL HCL 5 MG TABLET GT SCH (22:24)
[2018-12-17] MEDS: LORATADINE 10 MG TABLET GT SCH (22:24)
[2018-12-17] MEDS: PRAVASTATIN SODIUM 20 MG TABLET GT SCH (22:24)
[2018-12-17] MEDS: LATANOPROST EYE DROP 0.005% 2.5 ML BOTTLE EACHEYE SCH (22:24)
[2018-12-18] MEDS: IPRATROPIUM NEB FS 0.5 MG/2.5 ML AMPUL.NEB NEB SCH ×4 (01:21→19:45)
--- NOTE | 2018-12-18 02:42 | NUR ---
PATIENT RECEIVED ON ROOM ARE THEN PLACED BACK ON 28% COOL AEROSOL WITH TRACH MASK. SUCTIONED FOR MINIMAL, THICK, YELLOW SECRETIONS. GIVEN IN-LINE TREATMENTS WITH NO ADVERSE REACTIONS. AMBU BAG AT BEDSIDE. Addendum: 12/18/18 at 0243 by MINOO CORRIGAN RT Amended: Links added.
[2018-12-18] MEDS: GLYCOPYRROLATE 1 MG TABLET GT PRN (05:13)
[2018-12-18] MEDS: CHLORHEXIDINE GLUCONATE 15 ML UDC MM SCH ×2 (05:13→17:08)
[2018-12-18 08:45] VITALS: BP 144/95
--- NOTE | 2018-12-18 09:00 | NUR ---
Seen and examined by Dr. Edwards, no new order given.
[2018-12-18] MEDS: RIFAXIMIN 550 MG TABLET GT SCH ×2 (09:58→16:56)
[2018-12-18] MEDS: POTASSIUM CHLORIDE GT SCH (09:58)
[2018-12-18] MEDS: Z GUARD REMEDY 4 OZ OINT TP SCH ×2 (09:58→20:13)
[2018-12-18] MEDS: BIOTIN 5000 MCG GT SCH (09:58)
[2018-12-18] MEDS: HYDROGEN PEROXIDE 480 ML BOTTLE TP SCH ×2 (09:58→20:13)
[2018-12-18] MEDS: FINASTERIDE (5 MG) 5 MG TABLET GT SCH (09:58)
[2018-12-18] MEDS: CHOLECALCIFEROL (VITAMIN D 3) 400 UNIT TABLET GT SCH ×2 (09:58→20:13)
[2018-12-18] MEDS: DICLOFENAC TOPICAL 100 GM GEL..GM. TP SCH ×2 (09:59→16:56)
[2018-12-18] MEDS: VITAMINS A AND D 56.7 GM TUBE TP SCH ×2 (09:59→20:14)
[2018-12-18] MEDS: VITS A AND D/WHITE PET/LANOLIN 5 GM PACKET TP SCH ×4 (09:59→20:14)
[2018-12-18] MEDS: PRUNE JUICE GT SCH (11:00)
[2018-12-18] MEDS: [UNRECOGNIZED DRUG - OTHER] TP SCH ×2 (12:45→20:13)
[2018-12-18] MEDS: JEVITY 1.2 CAL 1,000 ML BOTTLE GT PRN (16:57)
[2018-12-18 20:40] VITALS: BP 145/87
[2018-12-18] MEDS: LORATADINE 10 MG TABLET GT SCH (21:40)
[2018-12-18] MEDS: LATANOPROST EYE DROP 0.005% 2.5 ML BOTTLE EACHEYE SCH (21:40)
[2018-12-18] MEDS: BENAZEPRIL HCL 5 MG TABLET GT SCH (21:40)
[2018-12-18] MEDS: PRAVASTATIN SODIUM 20 MG TABLET GT SCH (21:40)
[2018-12-19] MEDS: IPRATROPIUM NEB FS 0.5 MG/2.5 ML AMPUL.NEB NEB SCH ×4 (01:35→19:13)
[2018-12-19] MEDS: CHLORHEXIDINE GLUCONATE 15 ML UDC MM SCH ×2 (06:16→17:14)
[2018-12-19 07:58] VITALS: BP 145/84
[2018-12-19] MEDS: ASPIRIN 81 MG TAB.CHEW GT SCH (08:26)
[2018-12-19] MEDS: RIFAXIMIN 550 MG TABLET GT SCH ×2 (08:26→17:14)
[2018-12-19] MEDS: POTASSIUM CHLORIDE GT SCH (08:26)
[2018-12-19] MEDS: BIOTIN 5000 MCG GT SCH (08:26)
[2018-12-19] MEDS: DICLOFENAC TOPICAL 100 GM GEL..GM. TP SCH ×2 (08:26→17:14)
[2018-12-19] MEDS: VITS A AND D/WHITE PET/LANOLIN 5 GM PACKET TP SCH ×4 (08:26→21:12)
[2018-12-19] MEDS: CHOLECALCIFEROL (VITAMIN D 3) 400 UNIT TABLET GT SCH ×2 (08:26→21:11)
[2018-12-19] MEDS: HYDROGEN PEROXIDE 480 ML BOTTLE TP SCH ×2 (08:26→21:12)
[2018-12-19] MEDS: Z GUARD REMEDY 4 OZ OINT TP SCH ×2 (08:26→21:12)
[2018-12-19] MEDS: VITAMINS A AND D 56.7 GM TUBE TP SCH ×2 (08:26→21:12)
[2018-12-19] MEDS: FINASTERIDE (5 MG) 5 MG TABLET GT SCH (08:26)
[2018-12-19] MEDS: PRUNE JUICE GT SCH (11:59)
[2018-12-19] MEDS: [UNRECOGNIZED DRUG - OTHER] TP SCH ×2 (12:44→21:12)
[2018-12-19] MEDS: SUMATRIPTAN SUCCINATE 25 MG TABLET GT PRN (13:31)
[2018-12-19 19:58] VITALS: BP 142/79
[2018-12-19] MEDS: LORATADINE 10 MG TABLET GT SCH (21:12)
[2018-12-19] MEDS: LATANOPROST EYE DROP 0.005% 2.5 ML BOTTLE EACHEYE SCH (21:12)
[2018-12-19] MEDS: BENAZEPRIL HCL 5 MG TABLET GT SCH (21:15)
[2018-12-19] MEDS: PRAVASTATIN SODIUM 20 MG TABLET GT SCH (21:15)
[2018-12-19] MEDS: HYDROCODONE/APAP 7.5/325MG 1 EACH TABLET GT PRN (22:08)
[2018-12-20] MEDS: IPRATROPIUM NEB FS 0.5 MG/2.5 ML AMPUL.NEB NEB SCH ×4 (01:53→19:52)
[2018-12-20] MEDS: CHLORHEXIDINE GLUCONATE 15 ML UDC MM SCH ×2 (05:37→17:09)
[2018-12-20 08:36] VITALS: BP 140/70
[2018-12-20] MEDS: RIFAXIMIN 550 MG TABLET GT SCH ×2 (08:56→17:09)
[2018-12-20] MEDS: CHOLECALCIFEROL (VITAMIN D 3) 400 UNIT TABLET GT SCH ×2 (08:56→21:16)
[2018-12-20] MEDS: FINASTERIDE (5 MG) 5 MG TABLET GT SCH (08:56)
[2018-12-20] MEDS: POTASSIUM CHLORIDE GT SCH (08:56)
[2018-12-20] MEDS: VITS A AND D/WHITE PET/LANOLIN 5 GM PACKET TP SCH ×4 (08:56→21:17)
[2018-12-20] MEDS: Z GUARD REMEDY 4 OZ OINT TP SCH ×2 (08:56→21:16)
[2018-12-20] MEDS: DICLOFENAC TOPICAL 100 GM GEL..GM. TP SCH ×2 (08:56→17:09)
[2018-12-20] MEDS: BIOTIN 5000 MCG GT SCH (08:56)
[2018-12-20] MEDS: HYDROGEN PEROXIDE 480 ML BOTTLE TP SCH ×2 (08:56→21:16)
[2018-12-20] MEDS: VITAMINS A AND D 56.7 GM TUBE TP SCH ×2 (08:56→21:17)
--- NOTE | 2018-12-20 09:00 | NUR ---
Seen and examined by Dr. Mejia, no new order given.
[2018-12-20] MEDS: PRUNE JUICE GT SCH (11:00)
[2018-12-20] MEDS: HYDROCODONE/APAP 7.5/325MG 1 EACH TABLET GT PRN (12:59)
[2018-12-20] MEDS: [UNRECOGNIZED DRUG - OTHER] TP SCH ×2 (13:00→21:16)
--- NOTE | 2018-12-20 13:00 | NUR ---
Seen and examined by Dr. Edwards, no new order given.
[2018-12-20] MEDS: JEVITY 1.2 CAL 1,000 ML BOTTLE GT PRN (15:13)
[2018-12-20] MEDS: LORATADINE 10 MG TABLET GT SCH (21:17)
[2018-12-20] MEDS: LATANOPROST EYE DROP 0.005% 2.5 ML BOTTLE EACHEYE SCH (21:17)
[2018-12-20] MEDS: GLYCOPYRROLATE 1 MG TABLET GT PRN (21:18)
[2018-12-20] MEDS: BENAZEPRIL HCL 5 MG TABLET GT SCH (21:18)
[2018-12-20] MEDS: PRAVASTATIN SODIUM 20 MG TABLET GT SCH (21:18)
[2018-12-21] MEDS: IPRATROPIUM NEB FS 0.5 MG/2.5 ML AMPUL.NEB NEB SCH ×4 (01:07→20:07)
[2018-12-21] MEDS: CHLORHEXIDINE GLUCONATE 15 ML UDC MM SCH ×2 (06:09→17:35)
[2018-12-21 07:02] VITALS: BP 105/53
[2018-12-21] MEDS: CHOLECALCIFEROL (VITAMIN D 3) 400 UNIT TABLET GT SCH ×2 (08:37→21:18)
[2018-12-21] MEDS: VITS A AND D/WHITE PET/LANOLIN 5 GM PACKET TP SCH ×4 (08:37→21:18)
[2018-12-21] MEDS: HYDROGEN PEROXIDE 480 ML BOTTLE TP SCH ×2 (08:37→21:18)
[2018-12-21] MEDS: VITAMINS A AND D 56.7 GM TUBE TP SCH ×2 (08:37→21:18)
[2018-12-21] MEDS: RIFAXIMIN 550 MG TABLET GT SCH ×2 (08:37→17:34)
[2018-12-21] MEDS: DICLOFENAC TOPICAL 100 GM GEL..GM. TP SCH ×2 (08:37→17:35)
[2018-12-21] MEDS: FINASTERIDE (5 MG) 5 MG TABLET GT SCH (08:37)
[2018-12-21] MEDS: ASPIRIN 81 MG TAB.CHEW GT SCH (08:37)
[2018-12-21] MEDS: BIOTIN 5000 MCG GT SCH (08:37)
[2018-12-21] MEDS: POTASSIUM CHLORIDE GT SCH (08:37)
[2018-12-21] MEDS: Z GUARD REMEDY 4 OZ OINT TP SCH ×2 (08:37→21:18)
[2018-12-21] MEDS: PRUNE JUICE GT SCH (11:00)
[2018-12-21 12:06] VITALS: BP 121/70
[2018-12-21] MEDS: [UNRECOGNIZED DRUG - OTHER] TP SCH ×2 (13:00→21:18)
[2018-12-21] MEDS: BISACODYL SUPP (10 MG) 10 MG/SUPP.RECT SUPP.RECT RC PRN (18:48)
[2018-12-21] MEDS: MAGNESIUM HYDROXIDE 30 ML UDC GT PRN (18:48)
[2018-12-21 20:04] VITALS: BP 148/78
[2018-12-21] MEDS: PRAVASTATIN SODIUM 20 MG TABLET GT SCH (21:18)
[2018-12-21] MEDS: LORATADINE 10 MG TABLET GT SCH (21:18)
[2018-12-21] MEDS: LATANOPROST EYE DROP 0.005% 2.5 ML BOTTLE EACHEYE SCH (21:18)
[2018-12-21] MEDS: BENAZEPRIL HCL 5 MG TABLET GT SCH (21:18)
[2018-12-22] MEDS: IPRATROPIUM NEB FS 0.5 MG/2.5 ML AMPUL.NEB NEB SCH ×4 (02:03→20:13)
[2018-12-22] MEDS: CHLORHEXIDINE GLUCONATE 15 ML UDC MM SCH ×2 (05:44→17:40)
[2018-12-22 07:57] VITALS: BP 119/64
[2018-12-22] MEDS: VITAMINS A AND D 56.7 GM TUBE TP SCH ×2 (09:13→21:00)
[2018-12-22] MEDS: BIOTIN 5000 MCG GT SCH (09:13)
[2018-12-22] MEDS: CHOLECALCIFEROL (VITAMIN D 3) 400 UNIT TABLET GT SCH ×2 (09:13→21:00)
[2018-12-22] MEDS: HYDROGEN PEROXIDE 480 ML BOTTLE TP SCH ×2 (09:13→21:00)
[2018-12-22] MEDS: Z GUARD REMEDY 4 OZ OINT TP SCH ×2 (09:13→21:00)
[2018-12-22] MEDS: RIFAXIMIN 550 MG TABLET GT SCH ×2 (09:13→17:40)
[2018-12-22] MEDS: FINASTERIDE (5 MG) 5 MG TABLET GT SCH (09:13)
[2018-12-22] MEDS: POTASSIUM CHLORIDE GT SCH (09:13)
[2018-12-22] MEDS: VITS A AND D/WHITE PET/LANOLIN 5 GM PACKET TP SCH ×4 (09:13→21:00)
[2018-12-22] MEDS: DICLOFENAC TOPICAL 100 GM GEL..GM. TP SCH ×2 (09:13→17:40)
[2018-12-22] MEDS: PRUNE JUICE GT SCH (11:00)
[2018-12-22] MEDS: [UNRECOGNIZED DRUG - OTHER] TP SCH ×2 (12:57→21:00)
[2018-12-22] MEDS: JEVITY 1.2 CAL 1,000 ML BOTTLE GT PRN (17:40)
[2018-12-22] MEDS: GLYCOPYRROLATE 1 MG TABLET GT PRN (20:30)
[2018-12-22 20:33] VITALS: BP 149/78
[2018-12-22] MEDS: LORATADINE 10 MG TABLET GT SCH (22:58)
[2018-12-22] MEDS: LATANOPROST EYE DROP 0.005% 2.5 ML BOTTLE EACHEYE SCH (22:58)
[2018-12-22] MEDS: BENAZEPRIL HCL 5 MG TABLET GT SCH (22:59)
[2018-12-22] MEDS: PRAVASTATIN SODIUM 20 MG TABLET GT SCH (22:59)
[2018-12-23] MEDS: IPRATROPIUM NEB FS 0.5 MG/2.5 ML AMPUL.NEB NEB SCH ×4 (01:51→20:01)
[2018-12-23] MEDS: CHLORHEXIDINE GLUCONATE 15 ML UDC MM SCH ×2 (06:10→17:29)
[2018-12-23] MEDS: JEVITY 1.2 CAL 1,000 ML BOTTLE GT PRN (06:59)
[2018-12-23 07:27] VITALS: BP 139/79
[2018-12-23] MEDS: POTASSIUM CHLORIDE GT SCH (08:26)
[2018-12-23] MEDS: RIFAXIMIN 550 MG TABLET GT SCH ×2 (08:26→16:26)
[2018-12-23] MEDS: FINASTERIDE (5 MG) 5 MG TABLET GT SCH (08:26)
[2018-12-23] MEDS: VITS A AND D/WHITE PET/LANOLIN 5 GM PACKET TP SCH ×4 (08:26→21:37)
[2018-12-23] MEDS: BIOTIN 5000 MCG GT SCH (08:26)
[2018-12-23] MEDS: ASPIRIN 81 MG TAB.CHEW GT SCH (08:26)
[2018-12-23] MEDS: CHOLECALCIFEROL (VITAMIN D 3) 400 UNIT TABLET GT SCH ×2 (08:26→21:37)
[2018-12-23] MEDS: HYDROGEN PEROXIDE 480 ML BOTTLE TP SCH ×2 (08:26→21:37)
[2018-12-23] MEDS: Z GUARD REMEDY 4 OZ OINT TP SCH ×2 (08:26→21:37)
[2018-12-23] MEDS: VITAMINS A AND D 56.7 GM TUBE TP SCH ×2 (08:27→21:37)
[2018-12-23] MEDS: DICLOFENAC TOPICAL 100 GM GEL..GM. TP SCH ×2 (08:27→16:26)
[2018-12-23] MEDS: PRUNE JUICE GT SCH (10:35)
[2018-12-23] MEDS: HYDROCODONE/APAP 7.5/325MG 1 EACH TABLET GT PRN ×2 (10:36→21:48)
--- NOTE | 2018-12-23 11:00 | NUR ---
Seen and examined by Dr. Holliday, window trimmer apprentice with new order given for Ciprofloxacin eye drops. Resident's informed.
[2018-12-23] MEDS: [UNRECOGNIZED DRUG - OTHER] TP SCH ×2 (13:00→21:37)
[2018-12-23] MEDS: CIPROFLOXACIN HCL 0.3% 5 ML BOTTLE EACHEYE SCH ×3 (13:00→21:37)
[2018-12-23 21:28] VITALS: BP 148/86
[2018-12-23] MEDS: LORATADINE 10 MG TABLET GT SCH (21:37)
[2018-12-23] MEDS: LATANOPROST EYE DROP 0.005% 2.5 ML BOTTLE EACHEYE SCH (21:37)
[2018-12-23] MEDS: BENAZEPRIL HCL 5 MG TABLET GT SCH (21:38)
[2018-12-23] MEDS: PRAVASTATIN SODIUM 20 MG TABLET GT SCH (21:38)
[2018-12-23] MEDS: GLYCOPYRROLATE 1 MG TABLET GT PRN (21:38)
[2018-12-24] MEDS: IPRATROPIUM NEB FS 0.5 MG/2.5 ML AMPUL.NEB NEB SCH ×4 (01:35→19:23)
[2018-12-24] MEDS: CHLORHEXIDINE GLUCONATE 15 ML UDC MM SCH ×2 (05:34→17:14)
[2018-12-24] MEDS: JEVITY 1.2 CAL 1,000 ML BOTTLE GT PRN (05:54)
[2018-12-24 07:30] VITALS: BP 146/76
[2018-12-24] MEDS: CHOLECALCIFEROL (VITAMIN D 3) 400 UNIT TABLET GT SCH ×2 (09:29→21:08)
[2018-12-24] MEDS: CIPROFLOXACIN HCL 0.3% 5 ML BOTTLE EACHEYE SCH ×4 (09:29→21:08)
[2018-12-24] MEDS: POTASSIUM CHLORIDE GT SCH (09:29)
[2018-12-24] MEDS: HYDROGEN PEROXIDE 480 ML BOTTLE TP SCH ×2 (09:29→21:09)
[2018-12-24] MEDS: FINASTERIDE (5 MG) 5 MG TABLET GT SCH (09:29)
[2018-12-24] MEDS: Z GUARD REMEDY 4 OZ OINT TP SCH ×2 (09:29→21:09)
[2018-12-24] MEDS: BIOTIN 5000 MCG GT SCH (09:29)
[2018-12-24] MEDS: VITS A AND D/WHITE PET/LANOLIN 5 GM PACKET TP SCH ×4 (09:29→21:09)
[2018-12-24] MEDS: RIFAXIMIN 550 MG TABLET GT SCH ×2 (09:29→17:14)
[2018-12-24] MEDS: VITAMINS A AND D 56.7 GM TUBE TP SCH ×2 (09:59→21:09)
[2018-12-24] MEDS: DICLOFENAC TOPICAL 100 GM GEL..GM. TP SCH ×2 (09:59→17:14)
[2018-12-24] MEDS: PRUNE JUICE GT SCH (10:31)
[2018-12-24] MEDS: HYDROCODONE/APAP 7.5/325MG 1 EACH TABLET GT PRN (10:31)
[2018-12-24] MEDS: MAGNESIUM HYDROXIDE 30 ML UDC GT PRN (10:31)
[2018-12-24] MEDS: [UNRECOGNIZED DRUG - OTHER] TP SCH ×2 (13:00→21:09)
--- NOTE | 2018-12-24 14:30 | NUR ---
Seen and examined by Dr. Jerry rain.
[2018-12-24 20:43] VITALS: BP 142/85
[2018-12-24] MEDS: BENAZEPRIL HCL 5 MG TABLET GT SCH (21:09)
[2018-12-24] MEDS: LATANOPROST EYE DROP 0.005% 2.5 ML BOTTLE EACHEYE SCH (21:09)
[2018-12-24] MEDS: PRAVASTATIN SODIUM 20 MG TABLET GT SCH (21:09)
[2018-12-24] MEDS: LORATADINE 10 MG TABLET GT SCH (21:09)
[2018-12-25] MEDS: IPRATROPIUM NEB FS 0.5 MG/2.5 ML AMPUL.NEB NEB SCH ×4 (01:23→19:35)
[2018-12-25] MEDS: CHLORHEXIDINE GLUCONATE 15 ML UDC MM SCH ×2 (05:44→18:08)
[2018-12-25] MEDS: JEVITY 1.2 CAL 1,000 ML BOTTLE GT PRN (05:44)
[2018-12-25 07:28] VITALS: BP 123/74
[2018-12-25] MEDS: ASPIRIN 81 MG TAB.CHEW GT SCH (08:53)
[2018-12-25] MEDS: RIFAXIMIN 550 MG TABLET GT SCH ×2 (08:53→17:00)
[2018-12-25] MEDS: CIPROFLOXACIN HCL 0.3% 5 ML BOTTLE EACHEYE SCH ×4 (08:53→21:46)
[2018-12-25] MEDS: Z GUARD REMEDY 4 OZ OINT TP SCH ×2 (08:53→21:46)
[2018-12-25] MEDS: BIOTIN 5000 MCG GT SCH (08:53)
[2018-12-25] MEDS: CHOLECALCIFEROL (VITAMIN D 3) 400 UNIT TABLET GT SCH ×2 (08:53→21:46)
[2018-12-25] MEDS: FINASTERIDE (5 MG) 5 MG TABLET GT SCH (08:53)
[2018-12-25] MEDS: POTASSIUM CHLORIDE GT SCH (08:53)
[2018-12-25] MEDS: HYDROGEN PEROXIDE 480 ML BOTTLE TP SCH ×2 (08:53→21:46)
[2018-12-25] MEDS: VITS A AND D/WHITE PET/LANOLIN 5 GM PACKET TP SCH ×4 (08:53→21:46)
[2018-12-25] MEDS: VITAMINS A AND D 56.7 GM TUBE TP SCH ×2 (08:54→21:46)
[2018-12-25] MEDS: DICLOFENAC TOPICAL 100 GM GEL..GM. TP SCH ×2 (08:54→17:00)
[2018-12-25] MEDS: PRUNE JUICE GT SCH (11:00)
[2018-12-25] MEDS: [UNRECOGNIZED DRUG - OTHER] TP SCH ×2 (13:00→21:46)
[2018-12-25 20:25] VITALS: BP 126/55
[2018-12-25] MEDS: LORATADINE 10 MG TABLET GT SCH (21:46)
[2018-12-25] MEDS: LATANOPROST EYE DROP 0.005% 2.5 ML BOTTLE EACHEYE SCH (21:46)
[2018-12-25] MEDS: PRAVASTATIN SODIUM 20 MG TABLET GT SCH (21:47)
[2018-12-25] MEDS: BENAZEPRIL HCL 5 MG TABLET GT SCH (21:47)
[2018-12-26] MEDS: JEVITY 1.2 CAL 1,000 ML BOTTLE GT PRN (01:11)
[2018-12-26] MEDS: IPRATROPIUM NEB FS 0.5 MG/2.5 ML AMPUL.NEB NEB SCH ×4 (01:47→19:18)
[2018-12-26] MEDS: CHLORHEXIDINE GLUCONATE 15 ML UDC MM SCH ×2 (05:02→17:15)
[2018-12-26 07:46] VITALS: BP 140/84
[2018-12-26] MEDS: CIPROFLOXACIN HCL 0.3% 5 ML BOTTLE EACHEYE SCH ×4 (08:55→20:37)
[2018-12-26] MEDS: BIOTIN 5000 MCG GT SCH (08:55)
[2018-12-26] MEDS: RIFAXIMIN 550 MG TABLET GT SCH ×2 (08:55→17:15)
[2018-12-26] MEDS: FINASTERIDE (5 MG) 5 MG TABLET GT SCH (08:55)
[2018-12-26] MEDS: POTASSIUM CHLORIDE GT SCH (08:55)
[2018-12-26] MEDS: CHOLECALCIFEROL (VITAMIN D 3) 400 UNIT TABLET GT SCH ×2 (08:55→20:37)
[2018-12-26] MEDS: Z GUARD REMEDY 4 OZ OINT TP SCH ×2 (08:56→20:37)
[2018-12-26] MEDS: VITAMINS A AND D 56.7 GM TUBE TP SCH ×2 (08:56→20:38)
[2018-12-26] MEDS: HYDROGEN PEROXIDE 480 ML BOTTLE TP SCH ×2 (08:56→20:37)
[2018-12-26] MEDS: VITS A AND D/WHITE PET/LANOLIN 5 GM PACKET TP SCH ×4 (08:56→20:37)
[2018-12-26] MEDS: DICLOFENAC TOPICAL 100 GM GEL..GM. TP SCH ×2 (08:56→17:15)
[2018-12-26] MEDS: PRUNE JUICE GT SCH (11:00)
[2018-12-26] MEDS: HYDROCODONE/APAP 7.5/325MG 1 EACH TABLET GT PRN (13:15)
[2018-12-26] MEDS: [UNRECOGNIZED DRUG - OTHER] TP SCH ×2 (13:23→20:37)
[2018-12-26 20:31] VITALS: BP 148/75
[2018-12-26] MEDS: LORATADINE 10 MG TABLET GT SCH (22:51)
[2018-12-26] MEDS: LATANOPROST EYE DROP 0.005% 2.5 ML BOTTLE EACHEYE SCH (22:51)
[2018-12-26] MEDS: PRAVASTATIN SODIUM 20 MG TABLET GT SCH (22:52)
[2018-12-26] MEDS: BENAZEPRIL HCL 5 MG TABLET GT SCH (22:52)
[2018-12-27] MEDS: JEVITY 1.2 CAL 1,000 ML BOTTLE GT PRN (00:33)
[2018-12-27] MEDS: IPRATROPIUM NEB FS 0.5 MG/2.5 ML AMPUL.NEB NEB SCH ×4 (01:04→19:46)
[2018-12-27] MEDS: CHLORHEXIDINE GLUCONATE 15 ML UDC MM SCH ×2 (05:41→18:31)
[2018-12-27 07:51] VITALS: BP 126/80
[2018-12-27] MEDS: CHOLECALCIFEROL (VITAMIN D 3) 400 UNIT TABLET GT SCH ×2 (08:35→20:36)
[2018-12-27] MEDS: POTASSIUM CHLORIDE GT SCH (08:35)
[2018-12-27] MEDS: FINASTERIDE (5 MG) 5 MG TABLET GT SCH (08:35)
[2018-12-27] MEDS: HYDROGEN PEROXIDE 480 ML BOTTLE TP SCH ×2 (08:35→20:38)
[2018-12-27] MEDS: Z GUARD REMEDY 4 OZ OINT TP SCH (08:35)
[2018-12-27] MEDS: ASPIRIN 81 MG TAB.CHEW GT SCH (08:35)
[2018-12-27] MEDS: BIOTIN 5000 MCG GT SCH (08:35)
[2018-12-27] MEDS: CIPROFLOXACIN HCL 0.3% 5 ML BOTTLE EACHEYE SCH ×4 (08:35→20:38)
[2018-12-27] MEDS: RIFAXIMIN 550 MG TABLET GT SCH ×2 (08:35→16:42)
[2018-12-27] MEDS: VITAMINS A AND D 56.7 GM TUBE TP SCH ×2 (08:36→20:38)
[2018-12-27] MEDS: VITS A AND D/WHITE PET/LANOLIN 5 GM PACKET TP SCH ×4 (08:36→20:38)
[2018-12-27] MEDS: DICLOFENAC TOPICAL 100 GM GEL..GM. TP SCH ×2 (08:36→16:42)
[2018-12-27] MEDS: PRUNE JUICE GT SCH (11:00)
[2018-12-27] MEDS: [UNRECOGNIZED DRUG - OTHER] TP SCH ×2 (13:00→20:38)
[2018-12-27 19:58] VITALS: BP 136/94
[2018-12-27] MEDS: LORATADINE 10 MG TABLET GT SCH (21:25)
[2018-12-27] MEDS: LATANOPROST EYE DROP 0.005% 2.5 ML BOTTLE EACHEYE SCH (21:25)
[2018-12-27] MEDS: BENAZEPRIL HCL 5 MG TABLET GT SCH (21:25)
[2018-12-27] MEDS: PRAVASTATIN SODIUM 20 MG TABLET GT SCH (21:25)
[2018-12-28] MEDS: IPRATROPIUM NEB FS 0.5 MG/2.5 ML AMPUL.NEB NEB SCH ×4 (01:36→19:03)
[2018-12-28] MEDS: CHLORHEXIDINE GLUCONATE 15 ML UDC MM SCH ×2 (05:43→18:00)
[2018-12-28 07:24] VITALS: BP 162/94
[2018-12-28] MEDS: VITAMINS A AND D 56.7 GM TUBE TP SCH ×2 (09:00→21:01)
[2018-12-28] MEDS: DICLOFENAC TOPICAL 100 GM GEL..GM. TP SCH ×2 (09:00→16:10)
[2018-12-28] MEDS: VITS A AND D/WHITE PET/LANOLIN 5 GM PACKET TP SCH ×4 (09:00→21:01)
[2018-12-28] MEDS: HYDROGEN PEROXIDE 480 ML BOTTLE TP SCH ×2 (09:00→21:01)
[2018-12-28] MEDS: CHOLECALCIFEROL (VITAMIN D 3) 400 UNIT TABLET GT SCH ×2 (09:20→21:01)
[2018-12-28] MEDS: RIFAXIMIN 550 MG TABLET GT SCH ×2 (09:20→16:10)
[2018-12-28] MEDS: BIOTIN 5000 MCG GT SCH (09:20)
[2018-12-28] MEDS: CIPROFLOXACIN HCL 0.3% 5 ML BOTTLE EACHEYE SCH ×4 (09:20→21:00)
[2018-12-28] MEDS: FINASTERIDE (5 MG) 5 MG TABLET GT SCH (09:20)
[2018-12-28] MEDS: POTASSIUM CHLORIDE GT SCH (09:20)
--- NOTE | 2018-12-28 10:08 | NUR ---
Patient seen by Dr. Mejia, no new orders at this time. Vital signs stable, patient lying down comfortably. Bed at the lowest setting. BMV at bedside.
[2018-12-28] MEDS: MAGNESIUM HYDROXIDE 30 ML UDC GT PRN (10:30)
[2018-12-28] MEDS: PRUNE JUICE GT SCH (11:00)
--- NOTE | 2018-12-28 11:09 | NUR ---
SW communicated to pt's Asha about this Wednesday iDT mtg. will not be able to attend it.
[2018-12-28] MEDS: [UNRECOGNIZED DRUG - OTHER] TP SCH ×2 (13:00→21:01)
[2018-12-28] MEDS: JEVITY 1.2 CAL 1,000 ML BOTTLE GT PRN (16:07)
[2018-12-28 20:02] VITALS: BP 131/72
[2018-12-28] MEDS: BENAZEPRIL HCL 5 MG TABLET GT SCH (21:01)
[2018-12-28] MEDS: LORATADINE 10 MG TABLET GT SCH (21:01)
[2018-12-28] MEDS: LATANOPROST EYE DROP 0.005% 2.5 ML BOTTLE EACHEYE SCH (21:01)
[2018-12-28] MEDS: PRAVASTATIN SODIUM 20 MG TABLET GT SCH (21:01)
[2018-12-28] MEDS: GLYCOPYRROLATE 1 MG TABLET GT PRN (21:02)
[2018-12-29] MEDS: IPRATROPIUM NEB FS 0.5 MG/2.5 ML AMPUL.NEB NEB SCH ×4 (01:24→20:01)
[2018-12-29] MEDS: CHLORHEXIDINE GLUCONATE 15 ML UDC MM SCH ×2 (05:40→18:09)
[2018-12-29 07:53] VITALS: BP 123/81
[2018-12-29] MEDS: FINASTERIDE (5 MG) 5 MG TABLET GT SCH (08:15)
[2018-12-29] MEDS: RIFAXIMIN 550 MG TABLET GT SCH ×2 (08:15→16:56)
[2018-12-29] MEDS: BIOTIN 5000 MCG GT SCH (08:15)
[2018-12-29] MEDS: CIPROFLOXACIN HCL 0.3% 5 ML BOTTLE EACHEYE SCH ×4 (08:15→21:15)
[2018-12-29] MEDS: ASPIRIN 81 MG TAB.CHEW GT SCH (08:15)
[2018-12-29] MEDS: POTASSIUM CHLORIDE GT SCH (08:15)
[2018-12-29] MEDS: CHOLECALCIFEROL (VITAMIN D 3) 400 UNIT TABLET GT SCH ×2 (08:15→21:15)
[2018-12-29] MEDS: VITAMINS A AND D 56.7 GM TUBE TP SCH ×2 (09:00→21:16)
[2018-12-29] MEDS: HYDROGEN PEROXIDE 480 ML BOTTLE TP SCH ×2 (09:00→21:15)
[2018-12-29] MEDS: VITS A AND D/WHITE PET/LANOLIN 5 GM PACKET TP SCH ×4 (09:00→21:16)
[2018-12-29] MEDS: DICLOFENAC TOPICAL 100 GM GEL..GM. TP SCH ×2 (09:00→16:57)
[2018-12-29] MEDS: PRUNE JUICE GT SCH (11:00)
[2018-12-29] MEDS: HYDROCODONE/APAP 7.5/325MG 1 EACH TABLET GT PRN (12:19)
[2018-12-29] MEDS: JEVITY 1.2 CAL 1,000 ML BOTTLE GT PRN (12:30)
[2018-12-29] MEDS: [UNRECOGNIZED DRUG - OTHER] TP SCH ×2 (13:00→21:15)
[2018-12-29 20:03] VITALS: BP 128/73
--- NOTE | 2018-12-29 20:45 | NUR ---
PT RCVD DEBRA'D ON COOL AEROSOL. TX FRANCIE WELL. SX DONE. PT DEBRA IS PATENT AND SECURE. AMBU BAG AT BEDSIDE. Addendum: 12/29/18 at 2045 by LISETH MOCK RT Amended: Links added.
[2018-12-29] MEDS: PRAVASTATIN SODIUM 20 MG TABLET GT SCH (21:16)
[2018-12-29] MEDS: BENAZEPRIL HCL 5 MG TABLET GT SCH (21:16)
[2018-12-29] MEDS: LORATADINE 10 MG TABLET GT SCH (21:16)
[2018-12-29] MEDS: LATANOPROST EYE DROP 0.005% 2.5 ML BOTTLE EACHEYE SCH (21:16)
[2018-12-30] MEDS: IPRATROPIUM NEB FS 0.5 MG/2.5 ML AMPUL.NEB NEB SCH ×4 (01:01→19:58)
[2018-12-30] MEDS: JEVITY 1.2 CAL 1,000 ML BOTTLE GT PRN ×2 (03:20→22:28)
[2018-12-30] MEDS: CHLORHEXIDINE GLUCONATE 15 ML UDC MM SCH ×2 (05:41→18:14)
[2018-12-30 07:47] VITALS: BP 138/83
[2018-12-30] MEDS: FINASTERIDE (5 MG) 5 MG TABLET GT SCH (08:42)
[2018-12-30] MEDS: POTASSIUM CHLORIDE GT SCH (08:42)
[2018-12-30] MEDS: CHOLECALCIFEROL (VITAMIN D 3) 400 UNIT TABLET GT SCH ×2 (08:42→21:05)
[2018-12-30] MEDS: BIOTIN 5000 MCG GT SCH (08:42)
[2018-12-30] MEDS: RIFAXIMIN 550 MG TABLET GT SCH ×2 (08:42→16:47)
[2018-12-30] MEDS: DICLOFENAC TOPICAL 100 GM GEL..GM. TP SCH ×2 (09:00→16:47)
[2018-12-30] MEDS: VITS A AND D/WHITE PET/LANOLIN 5 GM PACKET TP SCH ×4 (09:00→21:06)
[2018-12-30] MEDS: HYDROGEN PEROXIDE 480 ML BOTTLE TP SCH ×2 (09:00→21:06)
[2018-12-30] MEDS: CIPROFLOXACIN HCL 0.3% 5 ML BOTTLE EACHEYE SCH (09:00)
[2018-12-30] MEDS: VITAMINS A AND D 56.7 GM TUBE TP SCH ×2 (09:00→21:06)
[2018-12-30] MEDS: PRUNE JUICE GT SCH (11:00)
--- NOTE | 2018-12-30 11:31 | NUR ---
INTERDISCIPLINARY PLAN OF CARE CONFERENCE was held today Resident's did not attend. Dr. Mejia and the interdisciplinary team discussed the current plan of care in detail. Current orders as well as treatments and medications were reviewed. Patient lost 5 pounds. Pt continue to use a prescribed eye drops. No new orders.
[2018-12-30] MEDS: [UNRECOGNIZED DRUG - OTHER] TP SCH ×2 (12:15→21:06)
[2018-12-30] MEDS: HYDROCODONE/APAP 7.5/325MG 1 EACH TABLET GT PRN ×3 (12:16→21:08)
--- NOTE | 2018-12-30 18:35 | NUR ---
NEW MEDICATION WAS ORDERED PER DR. STOVER, D-MANNOSE 500MG, PER INSURANCE NOT COVERED, SPOKE TO , PER SHE WILL PROVIDE THE MEDICATION.
[2018-12-30 20:52] VITALS: BP 140/70
[2018-12-30] MEDS: LATANOPROST EYE DROP 0.005% 2.5 ML BOTTLE EACHEYE SCH (21:06)
[2018-12-30] MEDS: LORATADINE 10 MG TABLET GT SCH (21:06)
[2018-12-30] MEDS: PRAVASTATIN SODIUM 20 MG TABLET GT SCH (21:06)
[2018-12-30] MEDS: BENAZEPRIL HCL 5 MG TABLET GT SCH (21:06)
[2018-12-30] MEDS: MAGNESIUM HYDROXIDE 30 ML UDC GT PRN (22:28)
[2018-12-31] MEDS: IPRATROPIUM NEB FS 0.5 MG/2.5 ML AMPUL.NEB NEB SCH ×4 (00:52→18:52)
[2018-12-31] MEDS: CHLORHEXIDINE GLUCONATE 15 ML UDC MM SCH ×2 (05:40→17:13)
[2018-12-31] MEDS: BISACODYL SUPP (10 MG) 10 MG/SUPP.RECT SUPP.RECT RC PRN (06:50)
[2018-12-31] MEDS: VITAMINS A AND D 56.7 GM TUBE TP SCH ×2 (09:00→20:42)
[2018-12-31] MEDS: DICLOFENAC TOPICAL 100 GM GEL..GM. TP SCH ×2 (09:00→16:49)
[2018-12-31] MEDS: VITS A AND D/WHITE PET/LANOLIN 5 GM PACKET TP SCH ×4 (09:00→20:42)
[2018-12-31] MEDS: HYDROGEN PEROXIDE 480 ML BOTTLE TP SCH ×2 (09:00→20:42)
[2018-12-31] MEDS: RIFAXIMIN 550 MG TABLET GT SCH ×2 (09:08→16:42)
[2018-12-31] MEDS: FINASTERIDE (5 MG) 5 MG TABLET GT SCH (09:08)
[2018-12-31] MEDS: BIOTIN 5000 MCG GT SCH (09:08)
[2018-12-31] MEDS: CHOLECALCIFEROL (VITAMIN D 3) 400 UNIT TABLET GT SCH ×2 (09:08→20:42)
[2018-12-31] MEDS: POTASSIUM CHLORIDE GT SCH (09:08)
[2018-12-31] MEDS: HYDROCODONE/APAP 7.5/325MG 1 EACH TABLET GT PRN (10:30)
[2018-12-31] MEDS: PRUNE JUICE GT SCH (11:00)
[2018-12-31 12:37] VITALS: BP 142/74
[2018-12-31] MEDS: [UNRECOGNIZED DRUG - OTHER] TP SCH ×2 (13:00→20:42)
--- NOTE | 2018-12-31 16:00 | NUR ---
Seen and examined by Dr. Edwards no new orders, D-mannose 500mg is not available, asked when she will bring medication, she will bring it tomorrow 01/01/19.
--- NOTE | 2018-12-31 16:47 | NUR ---
D-Mannose 500mg still not available, spoke to patient's she said she will bring it georgina. 01/01/19.
[2018-12-31 19:59] VITALS: BP 138/78
[2018-12-31] MEDS: JEVITY 1.2 CAL 1,000 ML BOTTLE GT PRN (20:42)
[2018-12-31] MEDS: BENAZEPRIL HCL 5 MG TABLET GT SCH (22:31)
[2018-12-31] MEDS: PRAVASTATIN SODIUM 20 MG TABLET GT SCH (22:31)
[2018-12-31] MEDS: LATANOPROST EYE DROP 0.005% 2.5 ML BOTTLE EACHEYE SCH (22:31)
[2018-12-31] MEDS: LORATADINE 10 MG TABLET GT SCH (22:31)
[2019-01-01] MEDS: IPRATROPIUM NEB FS 0.5 MG/2.5 ML AMPUL.NEB NEB SCH ×4 (00:45→20:00)
[2019-01-01] MEDS: CHLORHEXIDINE GLUCONATE 15 ML UDC MM SCH ×2 (06:08→17:03)
[2019-01-01] MEDS: MAGNESIUM HYDROXIDE 30 ML UDC GT PRN (06:20)
[2019-01-01 07:39] VITALS: BP 126/85
[2019-01-01] MEDS: BIOTIN 5000 MCG GT SCH (09:02)
[2019-01-01] MEDS: VITS A AND D/WHITE PET/LANOLIN 5 GM PACKET TP SCH ×4 (09:02→20:28)
[2019-01-01] MEDS: FINASTERIDE (5 MG) 5 MG TABLET GT SCH (09:02)
[2019-01-01] MEDS: CHOLECALCIFEROL (VITAMIN D 3) 400 UNIT TABLET GT SCH ×2 (09:02→20:28)
[2019-01-01] MEDS: RIFAXIMIN 550 MG TABLET GT SCH ×2 (09:02→17:03)
[2019-01-01] MEDS: HYDROGEN PEROXIDE 480 ML BOTTLE TP SCH ×2 (09:02→20:28)
[2019-01-01] MEDS: POTASSIUM CHLORIDE GT SCH (09:02)
[2019-01-01] MEDS: DICLOFENAC TOPICAL 100 GM GEL..GM. TP SCH ×2 (09:03→17:03)
[2019-01-01] MEDS: VITAMINS A AND D 56.7 GM TUBE TP SCH ×2 (09:03→20:29)
[2019-01-01] MEDS: PRUNE JUICE GT SCH (11:00)
[2019-01-01] MEDS: [UNRECOGNIZED DRUG - OTHER] TP SCH ×2 (13:00→20:28)
[2019-01-01] MEDS: JEVITY 1.2 CAL 1,000 ML BOTTLE GT PRN (14:13)
[2019-01-01 19:51] VITALS: BP 129/75
[2019-01-01] MEDS: PRAVASTATIN SODIUM 20 MG TABLET GT SCH (22:25)
[2019-01-01] MEDS: LORATADINE 10 MG TABLET GT SCH (22:25)
[2019-01-01] MEDS: BENAZEPRIL HCL 5 MG TABLET GT SCH (22:25)
[2019-01-01] MEDS: LATANOPROST EYE DROP 0.005% 2.5 ML BOTTLE EACHEYE SCH (22:25)
[2019-01-02] MEDS: IPRATROPIUM NEB FS 0.5 MG/2.5 ML AMPUL.NEB NEB SCH ×4 (01:49→19:21)
[2019-01-02] MEDS: HYDROCODONE/APAP 7.5/325MG 1 EACH TABLET GT PRN (02:19)
[2019-01-02] MEDS: CHLORHEXIDINE GLUCONATE 15 ML UDC MM SCH ×2 (05:51→18:44)
[2019-01-02 08:06] VITALS: BP 119/70
[2019-01-02] MEDS: SUMATRIPTAN SUCCINATE 25 MG TABLET GT PRN (09:21)
[2019-01-02] MEDS: BIOTIN 5000 MCG GT SCH (09:23)
[2019-01-02] MEDS: POTASSIUM CHLORIDE GT SCH (09:23)
[2019-01-02] MEDS: FINASTERIDE (5 MG) 5 MG TABLET GT SCH (09:23)
[2019-01-02] MEDS: HYDROGEN PEROXIDE 480 ML BOTTLE TP SCH ×2 (09:28→21:12)
[2019-01-02] MEDS: CHOLECALCIFEROL (VITAMIN D 3) 400 UNIT TABLET GT SCH ×2 (09:28→21:15)
[2019-01-02] MEDS: RIFAXIMIN 550 MG TABLET GT SCH ×2 (09:28→17:00)
[2019-01-02] MEDS: VITS A AND D/WHITE PET/LANOLIN 5 GM PACKET TP SCH ×4 (09:29→21:13)
[2019-01-02] MEDS: VITAMINS A AND D 56.7 GM TUBE TP SCH ×2 (09:29→21:13)
[2019-01-02] MEDS: DICLOFENAC TOPICAL 100 GM GEL..GM. TP SCH ×2 (09:29→17:00)
[2019-01-02] MEDS: PRUNE JUICE GT SCH (11:00)
[2019-01-02] MEDS: [UNRECOGNIZED DRUG - OTHER] TP SCH ×2 (13:00→21:13)
[2019-01-02] MEDS: JEVITY 1.2 CAL 1,000 ML BOTTLE GT PRN (14:58)
[2019-01-02 19:54] VITALS: BP 136/78
[2019-01-02] MEDS: PRAVASTATIN SODIUM 20 MG TABLET GT SCH (21:11)
[2019-01-02] MEDS: BENAZEPRIL HCL 5 MG TABLET GT SCH (21:12)
[2019-01-02] MEDS: LATANOPROST EYE DROP 0.005% 2.5 ML BOTTLE EACHEYE SCH (21:13)
[2019-01-02] MEDS: LORATADINE 10 MG TABLET GT SCH (21:15)
[2019-01-03] MEDS: IPRATROPIUM NEB FS 0.5 MG/2.5 ML AMPUL.NEB NEB SCH ×4 (00:43→19:32)
[2019-01-03] MEDS: CHLORHEXIDINE GLUCONATE 15 ML UDC MM SCH ×2 (05:35→16:53)
[2019-01-03 07:35] VITALS: BP 132/79
[2019-01-03] MEDS: BIOTIN 5000 MCG GT SCH (09:39)
[2019-01-03] MEDS: RIFAXIMIN 550 MG TABLET GT SCH ×2 (09:39→16:53)
[2019-01-03] MEDS: CHOLECALCIFEROL (VITAMIN D 3) 400 UNIT TABLET GT SCH ×2 (09:39→20:32)
[2019-01-03] MEDS: HYDROGEN PEROXIDE 480 ML BOTTLE TP SCH ×2 (09:39→20:32)
[2019-01-03] MEDS: DICLOFENAC TOPICAL 100 GM GEL..GM. TP SCH ×2 (09:39→16:53)
[2019-01-03] MEDS: POTASSIUM CHLORIDE GT SCH (09:39)
[2019-01-03] MEDS: FINASTERIDE (5 MG) 5 MG TABLET GT SCH (09:39)
[2019-01-03] MEDS: VITAMINS A AND D 56.7 GM TUBE TP SCH ×2 (09:39→20:33)
[2019-01-03] MEDS: VITS A AND D/WHITE PET/LANOLIN 5 GM PACKET TP SCH ×4 (09:39→20:33)
[2019-01-03] MEDS: PRUNE JUICE GT SCH (11:00)
[2019-01-03] MEDS: BISACODYL SUPP (10 MG) 10 MG/SUPP.RECT SUPP.RECT RC PRN (12:38)
[2019-01-03] MEDS: [UNRECOGNIZED DRUG - OTHER] TP SCH ×2 (13:00→20:32)
[2019-01-03] MEDS: JEVITY 1.2 CAL 1,000 ML BOTTLE GT PRN (14:31)
[2019-01-03 20:40] VITALS: BP 135/80
[2019-01-03] MEDS: PRAVASTATIN SODIUM 20 MG TABLET GT SCH (21:21)
[2019-01-03] MEDS: LORATADINE 10 MG TABLET GT SCH (21:21)
[2019-01-03] MEDS: LATANOPROST EYE DROP 0.005% 2.5 ML BOTTLE EACHEYE SCH (21:21)
[2019-01-03] MEDS: BENAZEPRIL HCL 5 MG TABLET GT SCH (21:21)
[2019-01-04] MEDS: IPRATROPIUM NEB FS 0.5 MG/2.5 ML AMPUL.NEB NEB SCH ×4 (01:58→19:45)
[2019-01-04] MEDS: CHLORHEXIDINE GLUCONATE 15 ML UDC MM SCH ×2 (05:50→18:41)
[2019-01-04] MEDS: JEVITY 1.2 CAL 1,000 ML BOTTLE GT PRN (06:29)
[2019-01-04] MEDS: CHOLECALCIFEROL (VITAMIN D 3) 400 UNIT TABLET GT SCH ×2 (08:04→20:36)
[2019-01-04] MEDS: POTASSIUM CHLORIDE GT SCH (08:04)
[2019-01-04] MEDS: RIFAXIMIN 550 MG TABLET GT SCH ×2 (08:04→16:32)
[2019-01-04] MEDS: FINASTERIDE (5 MG) 5 MG TABLET GT SCH (08:04)
[2019-01-04] MEDS: BIOTIN 5000 MCG GT SCH (08:04)
[2019-01-04 08:06] VITALS: BP 128/76
[2019-01-04] MEDS: HYDROGEN PEROXIDE 480 ML BOTTLE TP SCH ×2 (09:00→20:36)
[2019-01-04] MEDS: VITS A AND D/WHITE PET/LANOLIN 5 GM PACKET TP SCH ×4 (09:00→20:37)
[2019-01-04] MEDS: VITAMINS A AND D 56.7 GM TUBE TP SCH ×2 (09:00→20:37)
[2019-01-04] MEDS: DICLOFENAC TOPICAL 100 GM GEL..GM. TP SCH ×2 (09:00→16:32)
[2019-01-04] MEDS: PRUNE JUICE GT SCH (11:00)
[2019-01-04] MEDS: [UNRECOGNIZED DRUG - OTHER] TP SCH ×2 (12:13→20:36)
--- NOTE | 2019-01-04 14:32 | NUR ---
SPOKE TO , REGARDING MEDICATION D-MANNOSE 500MG NOT AVAILABLE, SHE WILL GO BUY MEDICATION TODAY.
[2019-01-04 20:00] VITALS: BP 137/79
[2019-01-04] MEDS: LORATADINE 10 MG TABLET GT SCH (21:22)
[2019-01-04] MEDS: LATANOPROST EYE DROP 0.005% 2.5 ML BOTTLE EACHEYE SCH (21:22)
[2019-01-04] MEDS: BENAZEPRIL HCL 5 MG TABLET GT SCH (21:23)
[2019-01-04] MEDS: PRAVASTATIN SODIUM 20 MG TABLET GT SCH (21:23)
[2019-01-05] MEDS: IPRATROPIUM NEB FS 0.5 MG/2.5 ML AMPUL.NEB NEB SCH ×4 (01:35→19:33)
[2019-01-05] MEDS: JEVITY 1.2 CAL 1,000 ML BOTTLE GT PRN (03:45)
[2019-01-05] MEDS: CHLORHEXIDINE GLUCONATE 15 ML UDC MM SCH ×2 (05:39→17:25)
[2019-01-05 07:39] VITALS: BP 129/75
--- NOTE | 2019-01-05 08:54 | NUR ---
Late entry for 01/03/[address] Edwards that D Mannose is still unavailable.
[2019-01-05] MEDS: FINASTERIDE (5 MG) 5 MG TABLET GT SCH (08:59)
[2019-01-05] MEDS: VITAMINS A AND D 56.7 GM TUBE TP SCH ×2 (08:59→22:00)
[2019-01-05] MEDS: HYDROGEN PEROXIDE 480 ML BOTTLE TP SCH ×2 (08:59→22:00)
[2019-01-05] MEDS: VITS A AND D/WHITE PET/LANOLIN 5 GM PACKET TP SCH ×4 (08:59→22:00)
[2019-01-05] MEDS: BIOTIN 5000 MCG GT SCH (08:59)
[2019-01-05] MEDS: POTASSIUM CHLORIDE GT SCH (08:59)
[2019-01-05] MEDS: CHOLECALCIFEROL (VITAMIN D 3) 400 UNIT TABLET GT SCH ×2 (08:59→22:00)
[2019-01-05] MEDS: RIFAXIMIN 550 MG TABLET GT SCH ×2 (08:59→17:24)
[2019-01-05] MEDS: DICLOFENAC TOPICAL 100 GM GEL..GM. TP SCH ×2 (09:00→17:24)
[2019-01-05] MEDS: PRUNE JUICE GT SCH (11:00)
[2019-01-05] MEDS: [UNRECOGNIZED DRUG - OTHER] TP SCH ×2 (13:00→22:00)
[2019-01-05 20:26] VITALS: BP 136/87
[2019-01-05] MEDS: BENAZEPRIL HCL 5 MG TABLET GT SCH (22:06)
[2019-01-05] MEDS: PRAVASTATIN SODIUM 20 MG TABLET GT SCH (22:06)
[2019-01-05] MEDS: LATANOPROST EYE DROP 0.005% 2.5 ML BOTTLE EACHEYE SCH (22:06)
[2019-01-05] MEDS: LORATADINE 10 MG TABLET GT SCH (22:06)
[2019-01-05] MEDS: HYDROCODONE/APAP 7.5/325MG 1 EACH TABLET GT PRN (22:30)
[2019-01-05] MEDS: GLYCOPYRROLATE 1 MG TABLET GT PRN (23:41)
[2019-01-06] MEDS: JEVITY 1.2 CAL 1,000 ML BOTTLE GT PRN ×2 (00:30→18:01)
[2019-01-06] MEDS: IPRATROPIUM NEB FS 0.5 MG/2.5 ML AMPUL.NEB NEB SCH ×4 (01:41→19:48)
[2019-01-06] MEDS: CHLORHEXIDINE GLUCONATE 15 ML UDC MM SCH ×2 (05:33→17:46)
[2019-01-06 07:47] VITALS: BP 119/70
[2019-01-06] MEDS: VITAMINS A AND D 56.7 GM TUBE TP SCH ×2 (08:52→21:05)
[2019-01-06] MEDS: RIFAXIMIN 550 MG TABLET GT SCH ×2 (08:52→17:46)
[2019-01-06] MEDS: HYDROGEN PEROXIDE 480 ML BOTTLE TP SCH ×2 (08:52→21:05)
[2019-01-06] MEDS: CHOLECALCIFEROL (VITAMIN D 3) 400 UNIT TABLET GT SCH ×2 (08:52→21:05)
[2019-01-06] MEDS: BIOTIN 5000 MCG GT SCH (08:52)
[2019-01-06] MEDS: FINASTERIDE (5 MG) 5 MG TABLET GT SCH (08:52)
[2019-01-06] MEDS: POTASSIUM CHLORIDE GT SCH (08:52)
[2019-01-06] MEDS: DICLOFENAC TOPICAL 100 GM GEL..GM. TP SCH ×2 (08:52→17:46)
[2019-01-06] MEDS: VITS A AND D/WHITE PET/LANOLIN 5 GM PACKET TP SCH ×4 (08:52→21:05)
--- NOTE | 2019-01-06 09:30 | NUR ---
Seen and examined by Dr. Jerry rain.
[2019-01-06] MEDS: PRUNE JUICE GT SCH (11:00)
[2019-01-06] MEDS: [UNRECOGNIZED DRUG - OTHER] TP SCH ×2 (12:54→21:05)
[2019-01-06] MEDS: GLYCOPYRROLATE 1 MG TABLET GT PRN (18:01)
[2019-01-06 20:25] VITALS: BP 128/81
--- NOTE | 2019-01-06 20:38 | NUR ---
RT NOTE PT RCVD DEBRA'D ON COOL AEROSOL. TX FRANCIE WELL. SX DONE. PT DEBRA IS PATENT AND SECURE. AMBU BAG AT BEDSIDE. Addendum: 01/06/19 at 2037 by LISETH MOCK RT Amended: Links added.
[2019-01-06] MEDS: LATANOPROST EYE DROP 0.005% 2.5 ML BOTTLE EACHEYE SCH (21:07)
[2019-01-06] MEDS: BENAZEPRIL HCL 5 MG TABLET GT SCH (21:07)
[2019-01-06] MEDS: PRAVASTATIN SODIUM 20 MG TABLET GT SCH (21:08)
[2019-01-06] MEDS: LORATADINE 10 MG TABLET GT SCH (21:09)
[2019-01-07] MEDS: IPRATROPIUM NEB FS 0.5 MG/2.5 ML AMPUL.NEB NEB SCH ×4 (01:04→19:49)
[2019-01-07] MEDS: HYDROCODONE/APAP 7.5/325MG 1 EACH TABLET GT PRN ×2 (02:49→13:39)
[2019-01-07] MEDS: CHLORHEXIDINE GLUCONATE 15 ML UDC MM SCH ×2 (05:23→17:00)
[2019-01-07 08:02] VITALS: BP 125/71
[2019-01-07] MEDS: VITAMINS A AND D 56.7 GM TUBE TP SCH ×2 (09:11→22:20)
[2019-01-07] MEDS: FINASTERIDE (5 MG) 5 MG TABLET GT SCH (09:11)
[2019-01-07] MEDS: CHOLECALCIFEROL (VITAMIN D 3) 400 UNIT TABLET GT SCH ×2 (09:11→20:51)
[2019-01-07] MEDS: RIFAXIMIN 550 MG TABLET GT SCH ×2 (09:11→17:00)
[2019-01-07] MEDS: DICLOFENAC TOPICAL 100 GM GEL..GM. TP SCH ×2 (09:11→17:00)
[2019-01-07] MEDS: VITS A AND D/WHITE PET/LANOLIN 5 GM PACKET TP SCH ×4 (09:11→22:20)
[2019-01-07] MEDS: BIOTIN 5000 MCG GT SCH (09:11)
[2019-01-07] MEDS: POTASSIUM CHLORIDE GT SCH (09:11)
[2019-01-07] MEDS: HYDROGEN PEROXIDE 480 ML BOTTLE TP SCH ×2 (09:11→22:20)
[2019-01-07] MEDS: PRUNE JUICE GT SCH (11:00)
[2019-01-07] MEDS: [UNRECOGNIZED DRUG - OTHER] TP SCH ×2 (13:31→20:52)
[2019-01-07] MEDS: JEVITY 1.2 CAL 1,000 ML BOTTLE GT PRN (15:52)
[2019-01-07 19:38] VITALS: BP 140/93
[2019-01-07] MEDS: LATANOPROST EYE DROP 0.005% 2.5 ML BOTTLE EACHEYE SCH (22:21)
[2019-01-07] MEDS: LORATADINE 10 MG TABLET GT SCH (22:21)
[2019-01-07] MEDS: BENAZEPRIL HCL 5 MG TABLET GT SCH (22:22)
[2019-01-07] MEDS: PRAVASTATIN SODIUM 20 MG TABLET GT SCH (22:22)
[2019-01-08] MEDS: IPRATROPIUM NEB FS 0.5 MG/2.5 ML AMPUL.NEB NEB SCH ×4 (02:20→19:54)
[2019-01-08] MEDS: CHLORHEXIDINE GLUCONATE 15 ML UDC MM SCH ×2 (05:47→17:56)
[2019-01-08 07:27] VITALS: BP 131/73
[2019-01-08] MEDS: FINASTERIDE (5 MG) 5 MG TABLET GT SCH (08:52)
[2019-01-08] MEDS: CHOLECALCIFEROL (VITAMIN D 3) 400 UNIT TABLET GT SCH ×2 (08:52→21:13)
[2019-01-08] MEDS: DICLOFENAC TOPICAL 100 GM GEL..GM. TP SCH ×2 (08:52→17:55)
[2019-01-08] MEDS: POTASSIUM CHLORIDE GT SCH (08:52)
[2019-01-08] MEDS: VITS A AND D/WHITE PET/LANOLIN 5 GM PACKET TP SCH ×4 (08:52→21:13)
[2019-01-08] MEDS: VITAMINS A AND D 56.7 GM TUBE TP SCH ×2 (08:52→21:14)
[2019-01-08] MEDS: BIOTIN 5000 MCG GT SCH (08:52)
[2019-01-08] MEDS: RIFAXIMIN 550 MG TABLET GT SCH ×2 (08:52→17:55)
[2019-01-08] MEDS: HYDROGEN PEROXIDE 480 ML BOTTLE TP SCH ×2 (08:52→21:13)
[2019-01-08] MEDS: PRUNE JUICE GT SCH (11:00)
[2019-01-08] MEDS: [UNRECOGNIZED DRUG - OTHER] TP SCH ×2 (13:17→21:13)
[2019-01-08] MEDS: JEVITY 1.2 CAL 1,000 ML BOTTLE GT PRN (13:17)
--- NOTE | 2019-01-08 13:20 | NUR ---
Seen and examined by Dr. Edwards, no new orders, family member at the bedside no concerns at this time.
[2019-01-08] MEDS: HYDROCODONE/APAP 7.5/325MG 1 EACH TABLET GT PRN ×2 (14:58→22:42)
--- NOTE | 2019-01-08 18:16 | NUR ---
Spoke to family member Denise (daughter) regarding if her mom ordered medication D-mannose 500mg, per Denise she ordered the medication today by [employer] [employer], as soon as she receives it she will provide us with the medication.
[2019-01-08 19:40] VITALS: BP 136/89
[2019-01-08] MEDS: PRAVASTATIN SODIUM 20 MG TABLET GT SCH (21:14)
[2019-01-08] MEDS: BENAZEPRIL HCL 5 MG TABLET GT SCH (21:14)
[2019-01-08] MEDS: LORATADINE 10 MG TABLET GT SCH (21:14)
[2019-01-08] MEDS: LATANOPROST EYE DROP 0.005% 2.5 ML BOTTLE EACHEYE SCH (21:14)
[2019-01-09] MEDS: IPRATROPIUM NEB FS 0.5 MG/2.5 ML AMPUL.NEB NEB SCH ×4 (01:38→19:20)
[2019-01-09] MEDS: CHLORHEXIDINE GLUCONATE 15 ML UDC MM SCH ×2 (05:38→18:53)
[2019-01-09] MEDS: BIOTIN 5000 MCG GT SCH (09:14)
[2019-01-09] MEDS: POTASSIUM CHLORIDE GT SCH (09:14)
[2019-01-09] MEDS: VITS A AND D/WHITE PET/LANOLIN 5 GM PACKET TP SCH ×4 (09:14→21:11)
[2019-01-09] MEDS: FINASTERIDE (5 MG) 5 MG TABLET GT SCH (09:14)
[2019-01-09] MEDS: VITAMINS A AND D 56.7 GM TUBE TP SCH ×2 (09:14→21:11)
[2019-01-09] MEDS: DICLOFENAC TOPICAL 100 GM GEL..GM. TP SCH ×2 (09:14→16:36)
[2019-01-09] MEDS: CHOLECALCIFEROL (VITAMIN D 3) 400 UNIT TABLET GT SCH ×2 (09:14→21:10)
[2019-01-09] MEDS: HYDROGEN PEROXIDE 480 ML BOTTLE TP SCH ×2 (09:14→21:10)
[2019-01-09] MEDS: RIFAXIMIN 550 MG TABLET GT SCH ×2 (09:14→16:36)
[2019-01-09] MEDS: PRUNE JUICE GT SCH (11:00)
[2019-01-09 11:44] VITALS: BP 116/76
[2019-01-09] MEDS: [UNRECOGNIZED DRUG - OTHER] TP SCH ×2 (13:00→21:10)
[2019-01-09] MEDS: MAGNESIUM HYDROXIDE 30 ML UDC GT PRN (18:53)
[2019-01-09 19:45] VITALS: BP 123/75
[2019-01-09] MEDS: BENAZEPRIL HCL 5 MG TABLET GT SCH (21:11)
[2019-01-09] MEDS: LATANOPROST EYE DROP 0.005% 2.5 ML BOTTLE EACHEYE SCH (21:11)
[2019-01-09] MEDS: LORATADINE 10 MG TABLET GT SCH (21:11)
[2019-01-09] MEDS: PRAVASTATIN SODIUM 20 MG TABLET GT SCH (21:12)
[2019-01-10] MEDS: IPRATROPIUM NEB FS 0.5 MG/2.5 ML AMPUL.NEB NEB SCH ×4 (00:45→19:24)
[2019-01-10] MEDS: CHLORHEXIDINE GLUCONATE 15 ML UDC MM SCH ×2 (05:52→17:25)
[2019-01-10 07:53] VITALS: BP 128/79
[2019-01-10] MEDS: BIOTIN 5000 MCG GT SCH (08:55)
[2019-01-10] MEDS: VITAMINS A AND D 56.7 GM TUBE TP SCH ×2 (08:55→20:20)
[2019-01-10] MEDS: DICLOFENAC TOPICAL 100 GM GEL..GM. TP SCH ×2 (08:55→17:25)
[2019-01-10] MEDS: POTASSIUM CHLORIDE GT SCH (08:55)
[2019-01-10] MEDS: HYDROGEN PEROXIDE 480 ML BOTTLE TP SCH ×2 (08:55→20:22)
[2019-01-10] MEDS: FINASTERIDE (5 MG) 5 MG TABLET GT SCH (08:55)
[2019-01-10] MEDS: CHOLECALCIFEROL (VITAMIN D 3) 400 UNIT TABLET GT SCH ×2 (08:55→20:28)
[2019-01-10] MEDS: RIFAXIMIN 550 MG TABLET GT SCH ×2 (08:55→17:25)
[2019-01-10] MEDS: VITS A AND D/WHITE PET/LANOLIN 5 GM PACKET TP SCH ×4 (08:55→20:19)
[2019-01-10] MEDS: PRUNE JUICE GT SCH (11:00)
--- NOTE | 2019-01-10 11:35 | NUR ---
Pt's said she ordered D Mannose from [employer] and she is expecting it to be delivered today.
[2019-01-10] MEDS: [UNRECOGNIZED DRUG - OTHER] TP SCH ×2 (13:00→20:19)
[2019-01-10 20:23] VITALS: BP 139/83
[2019-01-10] MEDS: HYDROCODONE/APAP 7.5/325MG 1 EACH TABLET GT PRN (20:24)
[2019-01-10] MEDS: LORATADINE 10 MG TABLET GT SCH (21:04)
[2019-01-10] MEDS: LATANOPROST EYE DROP 0.005% 2.5 ML BOTTLE EACHEYE SCH (21:04)
[2019-01-10] MEDS: BENAZEPRIL HCL 5 MG TABLET GT SCH (21:05)
[2019-01-10] MEDS: PRAVASTATIN SODIUM 20 MG TABLET GT SCH (21:07)
[2019-01-11] MEDS: IPRATROPIUM NEB FS 0.5 MG/2.5 ML AMPUL.NEB NEB SCH ×4 (01:34→20:00)
[2019-01-11] MEDS: CHLORHEXIDINE GLUCONATE 15 ML UDC MM SCH ×2 (05:07→17:00)
[2019-01-11 07:54] VITALS: BP 132/81
[2019-01-11] MEDS: FINASTERIDE (5 MG) 5 MG TABLET GT SCH (08:44)
[2019-01-11] MEDS: POTASSIUM CHLORIDE GT SCH (08:44)
[2019-01-11] MEDS: RIFAXIMIN 550 MG TABLET GT SCH ×2 (08:44→16:59)
[2019-01-11] MEDS: HYDROGEN PEROXIDE 480 ML BOTTLE TP SCH ×2 (08:44→21:13)
[2019-01-11] MEDS: BIOTIN 5000 MCG GT SCH (08:44)
[2019-01-11] MEDS: CHOLECALCIFEROL (VITAMIN D 3) 400 UNIT TABLET GT SCH ×2 (08:44→21:13)
[2019-01-11] MEDS: VITS A AND D/WHITE PET/LANOLIN 5 GM PACKET TP SCH ×4 (08:44→21:14)
[2019-01-11] MEDS: VITAMINS A AND D 56.7 GM TUBE TP SCH ×2 (08:45→21:14)
[2019-01-11] MEDS: DICLOFENAC TOPICAL 100 GM GEL..GM. TP SCH ×2 (08:45→16:59)
[2019-01-11] MEDS: JEVITY 1.2 CAL 1,000 ML BOTTLE GT PRN (08:55)
[2019-01-11] MEDS: PRUNE JUICE GT SCH (11:00)
[2019-01-11] MEDS: [UNRECOGNIZED DRUG - OTHER] TP SCH ×2 (13:00→21:13)
--- NOTE | 2019-01-11 17:01 | NUR ---
Patients' new medication D-Mannose c/o patients' , started this evening.
[2019-01-11 20:33] VITALS: BP 145/91
[2019-01-11] MEDS: LATANOPROST EYE DROP 0.005% 2.5 ML BOTTLE EACHEYE SCH (21:14)
[2019-01-11] MEDS: BENAZEPRIL HCL 5 MG TABLET GT SCH (21:14)
[2019-01-11] MEDS: PRAVASTATIN SODIUM 20 MG TABLET GT SCH (21:14)
[2019-01-11] MEDS: LORATADINE 10 MG TABLET GT SCH (21:14)
[2019-01-11] MEDS: HYDROCODONE/APAP 7.5/325MG 1 EACH TABLET GT PRN (21:36)
[2019-01-12] MEDS: IPRATROPIUM NEB FS 0.5 MG/2.5 ML AMPUL.NEB NEB SCH ×4 (01:16→19:48)
[2019-01-12] MEDS: CHLORHEXIDINE GLUCONATE 15 ML UDC MM SCH ×2 (05:44→17:39)
[2019-01-12] MEDS: JEVITY 1.2 CAL 1,000 ML BOTTLE GT PRN (06:04)
[2019-01-12 07:50] VITALS: BP 127/88
[2019-01-12] MEDS: POTASSIUM CHLORIDE GT SCH (08:40)
[2019-01-12] MEDS: VITS A AND D/WHITE PET/LANOLIN 5 GM PACKET TP SCH ×4 (08:41→21:20)
[2019-01-12] MEDS: FINASTERIDE (5 MG) 5 MG TABLET GT SCH (08:41)
[2019-01-12] MEDS: HYDROCODONE/APAP 7.5/325MG 1 EACH TABLET GT PRN ×2 (08:41→16:03)
[2019-01-12] MEDS: VITAMINS A AND D 56.7 GM TUBE TP SCH ×2 (08:41→21:20)
[2019-01-12] MEDS: CHOLECALCIFEROL (VITAMIN D 3) 400 UNIT TABLET GT SCH ×2 (08:41→21:20)
[2019-01-12] MEDS: HYDROGEN PEROXIDE 480 ML BOTTLE TP SCH ×2 (08:41→21:20)
[2019-01-12] MEDS: BIOTIN 5000 MCG GT SCH (08:41)
[2019-01-12] MEDS: DICLOFENAC TOPICAL 100 GM GEL..GM. TP SCH ×2 (08:41→16:02)
[2019-01-12] MEDS: RIFAXIMIN 550 MG TABLET GT SCH ×2 (08:41→16:02)
[2019-01-12] MEDS: PRUNE JUICE GT SCH (11:00)
[2019-01-12] MEDS: [UNRECOGNIZED DRUG - OTHER] TP SCH ×2 (13:15→21:20)
[2019-01-12 20:22] VITALS: BP 135/83
[2019-01-12] MEDS: PRAVASTATIN SODIUM 20 MG TABLET GT SCH (21:20)
[2019-01-12] MEDS: LORATADINE 10 MG TABLET GT SCH (21:20)
[2019-01-12] MEDS: BENAZEPRIL HCL 5 MG TABLET GT SCH (21:20)
[2019-01-12] MEDS: LATANOPROST EYE DROP 0.005% 2.5 ML BOTTLE EACHEYE SCH (21:20)
[2019-01-13] MEDS: IPRATROPIUM NEB FS 0.5 MG/2.5 ML AMPUL.NEB NEB SCH ×4 (00:44→19:41)
[2019-01-13] MEDS: JEVITY 1.2 CAL 1,000 ML BOTTLE GT PRN (06:00)
[2019-01-13] MEDS: CHLORHEXIDINE GLUCONATE 15 ML UDC MM SCH ×2 (06:24→18:50)
[2019-01-13] MEDS: MAGNESIUM HYDROXIDE 30 ML UDC GT PRN (06:32)
[2019-01-13 07:33] VITALS: BP 140/87
[2019-01-13] MEDS: POTASSIUM CHLORIDE GT SCH (09:00)
[2019-01-13] MEDS: VITAMINS A AND D 56.7 GM TUBE TP SCH ×2 (09:00→21:17)
[2019-01-13] MEDS: HYDROGEN PEROXIDE 480 ML BOTTLE TP SCH ×2 (09:00→21:17)
[2019-01-13] MEDS: CHOLECALCIFEROL (VITAMIN D 3) 400 UNIT TABLET GT SCH ×2 (09:00→21:17)
[2019-01-13] MEDS: RIFAXIMIN 550 MG TABLET GT SCH ×2 (09:00→16:12)
[2019-01-13] MEDS: VITS A AND D/WHITE PET/LANOLIN 5 GM PACKET TP SCH ×4 (09:00→21:17)
[2019-01-13] MEDS: BIOTIN 5000 MCG GT SCH (09:00)
[2019-01-13] MEDS: FINASTERIDE (5 MG) 5 MG TABLET GT SCH (09:00)
[2019-01-13] MEDS: DICLOFENAC TOPICAL 100 GM GEL..GM. TP SCH ×2 (09:01→16:12)
[2019-01-13] MEDS: PRUNE JUICE GT SCH (11:19)
[2019-01-13] MEDS: [UNRECOGNIZED DRUG - OTHER] TP SCH ×2 (13:00→21:17)
[2019-01-13 20:04] VITALS: BP 109/73
[2019-01-13] MEDS: LATANOPROST EYE DROP 0.005% 2.5 ML BOTTLE EACHEYE SCH (21:17)
[2019-01-13] MEDS: LORATADINE 10 MG TABLET GT SCH (21:17)
[2019-01-13] MEDS: PRAVASTATIN SODIUM 20 MG TABLET GT SCH (21:18)
[2019-01-13] MEDS: BENAZEPRIL HCL 5 MG TABLET GT SCH (21:18)
[2019-01-13] MEDS: GLYCOPYRROLATE 1 MG TABLET GT PRN (21:18)
[2019-01-14] MEDS: IPRATROPIUM NEB FS 0.5 MG/2.5 ML AMPUL.NEB NEB SCH ×4 (01:41→19:42)
[2019-01-14] MEDS: JEVITY 1.2 CAL 1,000 ML BOTTLE GT PRN (02:02)
[2019-01-14] MEDS: CHLORHEXIDINE GLUCONATE 15 ML UDC MM SCH ×2 (05:25→17:23)
[2019-01-14 08:00] VITALS: BP 135/87
[2019-01-14] MEDS: RIFAXIMIN 550 MG TABLET GT SCH ×2 (08:53→16:32)
[2019-01-14] MEDS: FINASTERIDE (5 MG) 5 MG TABLET GT SCH (08:53)
[2019-01-14] MEDS: CHOLECALCIFEROL (VITAMIN D 3) 400 UNIT TABLET GT SCH ×2 (08:53→21:14)
[2019-01-14] MEDS: BIOTIN 5000 MCG GT SCH (08:53)
[2019-01-14] MEDS: POTASSIUM CHLORIDE GT SCH (08:53)
[2019-01-14] MEDS: DICLOFENAC TOPICAL 100 GM GEL..GM. TP SCH ×2 (08:54→16:32)
[2019-01-14] MEDS: VITS A AND D/WHITE PET/LANOLIN 5 GM PACKET TP SCH ×4 (08:54→21:14)
[2019-01-14] MEDS: VITAMINS A AND D 56.7 GM TUBE TP SCH ×2 (08:54→21:14)
[2019-01-14] MEDS: HYDROGEN PEROXIDE 480 ML BOTTLE TP SCH ×2 (08:54→21:14)
[2019-01-14] MEDS: HYDROCODONE/APAP 7.5/325MG 1 EACH TABLET GT PRN ×2 (09:42→22:07)
[2019-01-14] MEDS: PRUNE JUICE GT SCH (11:00)
[2019-01-14] MEDS: [UNRECOGNIZED DRUG - OTHER] TP SCH ×2 (13:00→21:14)
[2019-01-14 19:35] VITALS: BP 150/98
[2019-01-14] MEDS: LATANOPROST EYE DROP 0.005% 2.5 ML BOTTLE EACHEYE SCH (21:14)
[2019-01-14] MEDS: PRAVASTATIN SODIUM 20 MG TABLET GT SCH (21:15)
[2019-01-14] MEDS: LORATADINE 10 MG TABLET GT SCH (21:15)
[2019-01-14] MEDS: BENAZEPRIL HCL 5 MG TABLET GT SCH (21:15)
[2019-01-14 21:30] VITALS: BP 138/72
[2019-01-15] MEDS: JEVITY 1.2 CAL 1,000 ML BOTTLE GT PRN ×2 (00:38→17:34)
[2019-01-15] MEDS: IPRATROPIUM NEB FS 0.5 MG/2.5 ML AMPUL.NEB NEB SCH ×4 (01:41→20:13)
[2019-01-15] MEDS: CHLORHEXIDINE GLUCONATE 15 ML UDC MM SCH ×2 (05:47→18:17)
[2019-01-15 08:00] VITALS: BP 124/71
[2019-01-15] MEDS: VITS A AND D/WHITE PET/LANOLIN 5 GM PACKET TP SCH ×4 (08:20→21:00)
[2019-01-15] MEDS: VITAMINS A AND D 56.7 GM TUBE TP SCH ×2 (08:20→21:00)
[2019-01-15] MEDS: CHOLECALCIFEROL (VITAMIN D 3) 400 UNIT TABLET GT SCH ×2 (08:20→21:16)
[2019-01-15] MEDS: POTASSIUM CHLORIDE GT SCH (08:20)
[2019-01-15] MEDS: BIOTIN 5000 MCG GT SCH (08:20)
[2019-01-15] MEDS: HYDROGEN PEROXIDE 480 ML BOTTLE TP SCH ×2 (08:20→21:00)
[2019-01-15] MEDS: DICLOFENAC TOPICAL 100 GM GEL..GM. TP SCH ×2 (08:20→17:34)
[2019-01-15] MEDS: RIFAXIMIN 550 MG TABLET GT SCH ×2 (08:20→17:34)
[2019-01-15] MEDS: FINASTERIDE (5 MG) 5 MG TABLET GT SCH (08:20)
[2019-01-15] MEDS: PRUNE JUICE GT SCH (11:43)
[2019-01-15] MEDS: [UNRECOGNIZED DRUG - OTHER] TP SCH ×2 (13:00→21:00)
[2019-01-15] MEDS: ACETAMINOPHEN 650 MG/20 ML UDC- SA PATIENTS-PAIN ONLY GT PRN (15:00)
[2019-01-15] MEDS: HYDROCODONE/APAP 7.5/325MG 1 EACH TABLET GT PRN (16:45)
[2019-01-15 19:32] VITALS: BP 157/97
--- NOTE | 2019-01-15 19:55 | NUR ---
charge nurse informed that the feeding residual is more that 120ml.ordered to stop the feeding and will observe closely
[2019-01-15] MEDS: PRAVASTATIN SODIUM 20 MG TABLET GT SCH (21:16)
[2019-01-15] MEDS: BENAZEPRIL HCL 5 MG TABLET GT SCH (21:16)
[2019-01-15] MEDS: LORATADINE 10 MG TABLET GT SCH (21:16)
[2019-01-15] MEDS: LATANOPROST EYE DROP 0.005% 2.5 ML BOTTLE EACHEYE SCH (21:58)
--- NOTE | 2019-01-15 22:47 | NUR ---
RESIDUALS RECHECKED MORE THAT 200 ML.DIEGO NURSE IS INFORMED , EXPRESS THE NECASSITY TO INFOM THE PHYSICIAN ABOUT THE HIGH RESIDUALS
--- NOTE | 2019-01-16 00:27 | NUR ---
CHARGE NURSE INFORMED THAT THE FEEDING RESIDUAL IS STILL 200ML AND ABOVE. ASK IF CAN CALL THE PHYSICIAN AND ORDERED TO INFORM THE PHYSICIAN IN THE MORNING, THE FEEDING IS OFF DUE TO HIGH RESIDUALS,
[2019-01-16] MEDS: IPRATROPIUM NEB FS 0.5 MG/2.5 ML AMPUL.NEB NEB SCH ×4 (00:55→20:04)
--- NOTE | 2019-01-16 02:19 | NUR ---
RESIDUALS CHECKED 50 ML. FEEDING RESTATED
[2019-01-16] MEDS: CHLORHEXIDINE GLUCONATE 15 ML UDC MM SCH ×2 (05:31→18:23)
[2019-01-16 07:56] VITALS: BP 128/61
[2019-01-16] MEDS: HYDROGEN PEROXIDE 480 ML BOTTLE TP SCH ×2 (09:00→21:00)
[2019-01-16] MEDS: POTASSIUM CHLORIDE GT SCH (09:05)
[2019-01-16] MEDS: BIOTIN 5000 MCG GT SCH (09:05)
[2019-01-16] MEDS: FINASTERIDE (5 MG) 5 MG TABLET GT SCH (09:06)
[2019-01-16] MEDS: RIFAXIMIN 550 MG TABLET GT SCH ×2 (09:06→17:00)
[2019-01-16] MEDS: CHOLECALCIFEROL (VITAMIN D 3) 400 UNIT TABLET GT SCH ×2 (09:06→21:00)
[2019-01-16] MEDS: VITAMINS A AND D 56.7 GM TUBE TP SCH ×2 (09:07→21:00)
[2019-01-16] MEDS: VITS A AND D/WHITE PET/LANOLIN 5 GM PACKET TP SCH ×4 (09:07→21:00)
[2019-01-16] MEDS: DICLOFENAC TOPICAL 100 GM GEL..GM. TP SCH ×2 (09:07→17:00)
[2019-01-16] MEDS: PRUNE JUICE GT SCH (11:15)
--- NOTE | 2019-01-16 12:24 | NUR ---
INNER CANNULA, TRACH TIE AND GAUZE CHANGED BY RT AND RN. NO ADVERSE REACTIONS, NO RESP DISTRESS NOTED.
[2019-01-16] MEDS: [UNRECOGNIZED DRUG - OTHER] TP SCH ×2 (13:07→21:00)
[2019-01-16] MEDS: JEVITY 1.2 CAL 1,000 ML BOTTLE GT PRN (18:36)
[2019-01-16 20:42] VITALS: BP 125/78
[2019-01-16] MEDS: LORATADINE 10 MG TABLET GT SCH (22:00)
[2019-01-16] MEDS: PRAVASTATIN SODIUM 20 MG TABLET GT SCH (22:00)
[2019-01-16] MEDS: BENAZEPRIL HCL 5 MG TABLET GT SCH (22:00)
[2019-01-16] MEDS: LATANOPROST EYE DROP 0.005% 2.5 ML BOTTLE EACHEYE SCH (22:00)
[2019-01-17] MEDS: IPRATROPIUM NEB FS 0.5 MG/2.5 ML AMPUL.NEB NEB SCH ×4 (01:51→20:12)
[2019-01-17] MEDS: CHLORHEXIDINE GLUCONATE 15 ML UDC MM SCH ×2 (05:56→17:37)
[2019-01-17 07:34] VITALS: BP 136/75
[2019-01-17] MEDS: HYDROGEN PEROXIDE 480 ML BOTTLE TP SCH ×2 (08:20→21:02)
[2019-01-17] MEDS: RIFAXIMIN 550 MG TABLET GT SCH ×2 (08:20→16:15)
[2019-01-17] MEDS: FINASTERIDE (5 MG) 5 MG TABLET GT SCH (08:20)
[2019-01-17] MEDS: BIOTIN 5000 MCG GT SCH (08:20)
[2019-01-17] MEDS: POTASSIUM CHLORIDE GT SCH (08:20)
[2019-01-17] MEDS: CHOLECALCIFEROL (VITAMIN D 3) 400 UNIT TABLET GT SCH ×2 (08:20→21:02)
[2019-01-17] MEDS: VITAMINS A AND D 56.7 GM TUBE TP SCH ×2 (08:21→21:02)
[2019-01-17] MEDS: VITS A AND D/WHITE PET/LANOLIN 5 GM PACKET TP SCH ×4 (08:21→21:02)
[2019-01-17] MEDS: DICLOFENAC TOPICAL 100 GM GEL..GM. TP SCH ×2 (08:21→16:15)
--- NOTE | 2019-01-17 09:30 | NUR ---
Seen and examined by Dr. Mejia, cherry cutter. NNO given at this time.
[2019-01-17] MEDS: PRUNE JUICE GT SCH (11:00)
--- NOTE | 2019-01-17 12:35 | NUR ---
Seen and examined by Dr. Edwards, NNO given.
[2019-01-17] MEDS: [UNRECOGNIZED DRUG - OTHER] TP SCH ×2 (12:52→21:02)
[2019-01-17] MEDS: GLYCOPYRROLATE 1 MG TABLET GT PRN (17:37)
[2019-01-17 20:41] VITALS: BP 144/88
[2019-01-17] MEDS: PRAVASTATIN SODIUM 20 MG TABLET GT SCH (21:02)
[2019-01-17] MEDS: BENAZEPRIL HCL 5 MG TABLET GT SCH (21:02)
[2019-01-17] MEDS: LATANOPROST EYE DROP 0.005% 2.5 ML BOTTLE EACHEYE SCH (21:02)
[2019-01-17] MEDS: LORATADINE 10 MG TABLET GT SCH (21:02)
[2019-01-18] MEDS: HYDROCODONE/APAP 7.5/325MG 1 EACH TABLET GT PRN ×3 (00:19→22:38)
[2019-01-18] MEDS: IPRATROPIUM NEB FS 0.5 MG/2.5 ML AMPUL.NEB NEB SCH ×4 (01:19→19:45)
[2019-01-18] MEDS: GLYCOPYRROLATE 1 MG TABLET GT PRN ×2 (04:20→20:28)
[2019-01-18] MEDS: CHLORHEXIDINE GLUCONATE 15 ML UDC MM SCH ×2 (05:36→18:00)
[2019-01-18] MEDS: JEVITY 1.2 CAL 1,000 ML BOTTLE GT PRN (06:05)
[2019-01-18 07:47] VITALS: BP 133/79
[2019-01-18] MEDS: BIOTIN 5000 MCG GT SCH (08:55)
[2019-01-18] MEDS: CHOLECALCIFEROL (VITAMIN D 3) 400 UNIT TABLET GT SCH ×2 (08:55→21:16)
[2019-01-18] MEDS: FINASTERIDE (5 MG) 5 MG TABLET GT SCH (08:55)
[2019-01-18] MEDS: RIFAXIMIN 550 MG TABLET GT SCH ×2 (08:55→17:00)
[2019-01-18] MEDS: POTASSIUM CHLORIDE GT SCH (08:55)
[2019-01-18] MEDS: DICLOFENAC TOPICAL 100 GM GEL..GM. TP SCH ×2 (09:00→17:00)
[2019-01-18] MEDS: VITAMINS A AND D 56.7 GM TUBE TP SCH ×2 (09:00→21:17)
[2019-01-18] MEDS: VITS A AND D/WHITE PET/LANOLIN 5 GM PACKET TP SCH ×4 (09:00→21:17)
[2019-01-18] MEDS: PRUNE JUICE GT SCH (11:00)
[2019-01-18] MEDS: [UNRECOGNIZED DRUG - OTHER] TP SCH ×2 (13:25→21:16)
--- NOTE | 2019-01-18 15:04 | NUR ---
Seen and examined by Dr. Jerry VORA given at this time.
[2019-01-18 20:29] VITALS: BP 156/90
[2019-01-18] MEDS: BENAZEPRIL HCL 5 MG TABLET GT SCH (21:17)
[2019-01-18] MEDS: LATANOPROST EYE DROP 0.005% 2.5 ML BOTTLE EACHEYE SCH (21:17)
[2019-01-18] MEDS: LORATADINE 10 MG TABLET GT SCH (21:17)
[2019-01-18] MEDS: PRAVASTATIN SODIUM 20 MG TABLET GT SCH (21:17)
[2019-01-18] MEDS: HYDROGEN PEROXIDE 480 ML BOTTLE TP SCH (22:02)
[2019-01-19] MEDS: IPRATROPIUM NEB FS 0.5 MG/2.5 ML AMPUL.NEB NEB SCH ×4 (00:45→20:22)
[2019-01-19] MEDS: JEVITY 1.2 CAL 1,000 ML BOTTLE GT PRN ×2 (01:04→18:05)
[2019-01-19] MEDS: CHLORHEXIDINE GLUCONATE 15 ML UDC MM SCH ×2 (05:48→17:27)
[2019-01-19 07:57] VITALS: BP 145/86
[2019-01-19] MEDS: FINASTERIDE (5 MG) 5 MG TABLET GT SCH (08:46)
[2019-01-19] MEDS: RIFAXIMIN 550 MG TABLET GT SCH ×2 (08:46→17:26)
[2019-01-19] MEDS: POTASSIUM CHLORIDE GT SCH (08:47)
[2019-01-19] MEDS: DICLOFENAC TOPICAL 100 GM GEL..GM. TP SCH ×2 (08:47→17:27)
[2019-01-19] MEDS: BIOTIN 5000 MCG GT SCH (08:48)
[2019-01-19] MEDS: VITAMINS A AND D 56.7 GM TUBE TP SCH ×2 (08:48→21:45)
[2019-01-19] MEDS: VITS A AND D/WHITE PET/LANOLIN 5 GM PACKET TP SCH ×4 (08:48→21:45)
[2019-01-19] MEDS: CHOLECALCIFEROL (VITAMIN D 3) 400 UNIT TABLET GT SCH ×2 (08:52→21:45)
[2019-01-19] MEDS: HYDROGEN PEROXIDE 480 ML BOTTLE TP SCH ×2 (09:50→21:45)
[2019-01-19] MEDS: PRUNE JUICE GT SCH (12:00)
[2019-01-19] MEDS: [UNRECOGNIZED DRUG - OTHER] TP SCH ×2 (12:03→21:45)
--- NOTE | 2019-01-19 19:30 | NUR ---
Seen and examined by Denise Pichardo NP nno.
[2019-01-19 21:28] VITALS: BP 146/92
[2019-01-19] MEDS: LORATADINE 10 MG TABLET GT SCH (21:45)
[2019-01-19] MEDS: LATANOPROST EYE DROP 0.005% 2.5 ML BOTTLE EACHEYE SCH (21:45)
[2019-01-19] MEDS: BENAZEPRIL HCL 5 MG TABLET GT SCH (21:46)
[2019-01-19] MEDS: MAGNESIUM HYDROXIDE 30 ML UDC GT PRN (21:46)
[2019-01-19] MEDS: PRAVASTATIN SODIUM 20 MG TABLET GT SCH (21:46)
[2019-01-20] MEDS: IPRATROPIUM NEB FS 0.5 MG/2.5 ML AMPUL.NEB NEB SCH ×4 (01:57→20:10)
[2019-01-20] MEDS: CHLORHEXIDINE GLUCONATE 15 ML UDC MM SCH ×2 (05:21→18:15)
[2019-01-20] MEDS: GLYCOPYRROLATE 1 MG TABLET GT PRN (05:21)
[2019-01-20] MEDS: SIMETHICONE SUSP 40 MG/0.6 ML BOTTLE GT PRN (05:21)
[2019-01-20] MEDS: BISACODYL SUPP (10 MG) 10 MG/SUPP.RECT SUPP.RECT RC PRN (06:20)
[2019-01-20 07:40] VITALS: BP 120/73
[2019-01-20] MEDS: POTASSIUM CHLORIDE GT SCH (09:24)
[2019-01-20] MEDS: BIOTIN 5000 MCG GT SCH (09:25)
[2019-01-20] MEDS: CHOLECALCIFEROL (VITAMIN D 3) 400 UNIT TABLET GT SCH ×2 (09:26→21:51)
[2019-01-20] MEDS: FINASTERIDE (5 MG) 5 MG TABLET GT SCH (09:26)
[2019-01-20] MEDS: RIFAXIMIN 550 MG TABLET GT SCH ×2 (09:27→16:38)
[2019-01-20] MEDS: VITS A AND D/WHITE PET/LANOLIN 5 GM PACKET TP SCH ×4 (09:28→21:52)
[2019-01-20] MEDS: HYDROGEN PEROXIDE 480 ML BOTTLE TP SCH ×2 (09:28→21:00)
[2019-01-20] MEDS: VITAMINS A AND D 56.7 GM TUBE TP SCH ×2 (09:28→21:52)
[2019-01-20] MEDS: DICLOFENAC TOPICAL 100 GM GEL..GM. TP SCH ×2 (09:29→16:38)
[2019-01-20] MEDS: PRUNE JUICE GT SCH (11:00)
[2019-01-20] MEDS: JEVITY 1.2 CAL 1,000 ML BOTTLE GT PRN (13:26)
[2019-01-20] MEDS: [UNRECOGNIZED DRUG - OTHER] TP SCH ×2 (13:51→21:52)
--- NOTE | 2019-01-20 14:30 | NUR ---
INTERDISCIPLINARY PLAN OF CARE CONFERENCE was held today Resident's did not attend. Dr. Mejia and the interdisciplinary team discussed the current plan of care in detail. Current orders as well as treatments and medications were reviewed. Resident ambulates with RNA with 2 person assist as tolerated. No change in condition, NNO given.
[2019-01-20 19:54] VITALS: BP 142/82
[2019-01-20] MEDS: LATANOPROST EYE DROP 0.005% 2.5 ML BOTTLE EACHEYE SCH (21:52)
[2019-01-20] MEDS: BENAZEPRIL HCL 5 MG TABLET GT SCH (21:52)
[2019-01-20] MEDS: LORATADINE 10 MG TABLET GT SCH (21:52)
[2019-01-20] MEDS: PRAVASTATIN SODIUM 20 MG TABLET GT SCH (21:53)
[2019-01-21] MEDS: IPRATROPIUM NEB FS 0.5 MG/2.5 ML AMPUL.NEB NEB SCH ×4 (01:16→19:36)
[2019-01-21] MEDS: JEVITY 1.2 CAL 1,000 ML BOTTLE GT PRN (05:46)
[2019-01-21] MEDS: CHLORHEXIDINE GLUCONATE 15 ML UDC MM SCH ×2 (05:46→17:23)
[2019-01-21 08:05] VITALS: BP 153/75
[2019-01-21] MEDS: BIOTIN 5000 MCG GT SCH (08:24)
[2019-01-21] MEDS: FINASTERIDE (5 MG) 5 MG TABLET GT SCH (08:24)
[2019-01-21] MEDS: RIFAXIMIN 550 MG TABLET GT SCH ×2 (08:24→16:20)
[2019-01-21] MEDS: CHOLECALCIFEROL (VITAMIN D 3) 400 UNIT TABLET GT SCH ×2 (08:24→20:30)
[2019-01-21] MEDS: POTASSIUM CHLORIDE GT SCH (08:24)
[2019-01-21] MEDS: HYDROGEN PEROXIDE 480 ML BOTTLE TP SCH ×2 (09:00→20:30)
[2019-01-21] MEDS: DICLOFENAC TOPICAL 100 GM GEL..GM. TP SCH ×2 (09:00→16:20)
[2019-01-21] MEDS: VITAMINS A AND D 56.7 GM TUBE TP SCH ×2 (09:00→20:30)
[2019-01-21] MEDS: VITS A AND D/WHITE PET/LANOLIN 5 GM PACKET TP SCH ×4 (09:00→20:30)
[2019-01-21] MEDS: PRUNE JUICE GT SCH (11:00)
[2019-01-21] MEDS: [UNRECOGNIZED DRUG - OTHER] TP SCH ×2 (12:55→20:30)
[2019-01-21] MEDS: MAGNESIUM HYDROXIDE 30 ML UDC GT PRN (13:23)
[2019-01-21] MEDS: GLYCOPYRROLATE 1 MG TABLET GT PRN (20:00)
[2019-01-21] MEDS: PRAVASTATIN SODIUM 20 MG TABLET GT SCH (21:02)
[2019-01-21] MEDS: LORATADINE 10 MG TABLET GT SCH (21:02)
[2019-01-21] MEDS: LATANOPROST EYE DROP 0.005% 2.5 ML BOTTLE EACHEYE SCH (21:02)
[2019-01-21] MEDS: BENAZEPRIL HCL 5 MG TABLET GT SCH (21:02)
[2019-01-21] MEDS: HYDROCODONE/APAP 7.5/325MG 1 EACH TABLET GT PRN (23:20)
[2019-01-22] MEDS: IPRATROPIUM NEB FS 0.5 MG/2.5 ML AMPUL.NEB NEB SCH ×4 (01:23→19:26)
[2019-01-22] MEDS: CHLORHEXIDINE GLUCONATE 15 ML UDC MM SCH ×2 (05:37→18:13)
[2019-01-22] MEDS: GLYCOPYRROLATE 1 MG TABLET GT PRN (05:37)
[2019-01-22] MEDS: JEVITY 1.2 CAL 1,000 ML BOTTLE GT PRN ×2 (05:37→23:35)
[2019-01-22] MEDS: POTASSIUM CHLORIDE GT SCH (08:45)
[2019-01-22] MEDS: RIFAXIMIN 550 MG TABLET GT SCH ×2 (08:46→17:01)
[2019-01-22] MEDS: BIOTIN 5000 MCG GT SCH (08:46)
[2019-01-22] MEDS: FINASTERIDE (5 MG) 5 MG TABLET GT SCH (08:46)
[2019-01-22] MEDS: CHOLECALCIFEROL (VITAMIN D 3) 400 UNIT TABLET GT SCH ×2 (08:49→20:53)
[2019-01-22] MEDS: HYDROGEN PEROXIDE 480 ML BOTTLE TP SCH ×2 (09:00→20:53)
[2019-01-22] MEDS: DICLOFENAC TOPICAL 100 GM GEL..GM. TP SCH ×2 (09:00→17:01)
[2019-01-22] MEDS: VITAMINS A AND D 56.7 GM TUBE TP SCH ×2 (09:00→20:53)
[2019-01-22] MEDS: VITS A AND D/WHITE PET/LANOLIN 5 GM PACKET TP SCH ×4 (09:00→20:53)
[2019-01-22] MEDS: PRUNE JUICE GT SCH (11:00)
[2019-01-22] MEDS: [UNRECOGNIZED DRUG - OTHER] TP SCH ×2 (12:36→20:53)
--- NOTE | 2019-01-22 16:00 | NUR ---
Seen and examined by Dr. Jerry rain.
[2019-01-22 20:45] VITALS: BP 146/79
[2019-01-22] MEDS: LORATADINE 10 MG TABLET GT SCH (22:47)
[2019-01-22] MEDS: BENAZEPRIL HCL 5 MG TABLET GT SCH (22:47)
[2019-01-22] MEDS: PRAVASTATIN SODIUM 20 MG TABLET GT SCH (22:47)
[2019-01-22] MEDS: LATANOPROST EYE DROP 0.005% 2.5 ML BOTTLE EACHEYE SCH (22:47)
[2019-01-23] MEDS: IPRATROPIUM NEB FS 0.5 MG/2.5 ML AMPUL.NEB NEB SCH ×4 (01:29→19:24)
[2019-01-23] MEDS: CHLORHEXIDINE GLUCONATE 15 ML UDC MM SCH ×2 (06:03→17:50)
[2019-01-23 08:02] VITALS: BP 136/70
[2019-01-23] MEDS: POTASSIUM CHLORIDE GT SCH (08:38)
[2019-01-23] MEDS: FINASTERIDE (5 MG) 5 MG TABLET GT SCH (08:38)
[2019-01-23] MEDS: BIOTIN 5000 MCG GT SCH (08:38)
[2019-01-23] MEDS: CHOLECALCIFEROL (VITAMIN D 3) 400 UNIT TABLET GT SCH ×2 (08:39→21:23)
[2019-01-23] MEDS: RIFAXIMIN 550 MG TABLET GT SCH ×2 (08:39→17:50)
[2019-01-23] MEDS: DICLOFENAC TOPICAL 100 GM GEL..GM. TP SCH ×2 (09:00→17:50)
[2019-01-23] MEDS: VITS A AND D/WHITE PET/LANOLIN 5 GM PACKET TP SCH ×4 (09:00→21:23)
[2019-01-23] MEDS: VITAMINS A AND D 56.7 GM TUBE TP SCH ×2 (09:00→21:24)
[2019-01-23] MEDS: HYDROGEN PEROXIDE 480 ML BOTTLE TP SCH ×2 (09:00→21:23)
[2019-01-23] MEDS: PRUNE JUICE GT SCH (11:00)
[2019-01-23] MEDS: [UNRECOGNIZED DRUG - OTHER] TP SCH ×2 (13:00→21:23)
[2019-01-23] MEDS: JEVITY 1.2 CAL 1,000 ML BOTTLE GT PRN (17:53)
[2019-01-23 20:51] VITALS: BP 145/90
[2019-01-23] MEDS: PRAVASTATIN SODIUM 20 MG TABLET GT SCH (21:24)
[2019-01-23] MEDS: BENAZEPRIL HCL 5 MG TABLET GT SCH (21:24)
[2019-01-23] MEDS: LATANOPROST EYE DROP 0.005% 2.5 ML BOTTLE EACHEYE SCH (21:24)
[2019-01-23] MEDS: LORATADINE 10 MG TABLET GT SCH (21:24)
[2019-01-23] MEDS: HYDROCODONE/APAP 7.5/325MG 1 EACH TABLET GT PRN (21:25)
[2019-01-24] MEDS: IPRATROPIUM NEB FS 0.5 MG/2.5 ML AMPUL.NEB NEB SCH ×4 (01:39→20:19)
[2019-01-24] MEDS: CHLORHEXIDINE GLUCONATE 15 ML UDC MM SCH ×2 (05:52→18:01)
[2019-01-24 08:31] VITALS: BP 134/78
[2019-01-24] MEDS: VITS A AND D/WHITE PET/LANOLIN 5 GM PACKET TP SCH ×4 (08:56→21:50)
[2019-01-24] MEDS: BIOTIN 5000 MCG GT SCH (08:56)
[2019-01-24] MEDS: POTASSIUM CHLORIDE GT SCH (08:56)
[2019-01-24] MEDS: CHOLECALCIFEROL (VITAMIN D 3) 400 UNIT TABLET GT SCH ×2 (08:56→21:50)
[2019-01-24] MEDS: RIFAXIMIN 550 MG TABLET GT SCH ×2 (08:56→16:46)
[2019-01-24] MEDS: FINASTERIDE (5 MG) 5 MG TABLET GT SCH (08:56)
[2019-01-24] MEDS: VITAMINS A AND D 56.7 GM TUBE TP SCH ×2 (08:57→21:50)
[2019-01-24] MEDS: DICLOFENAC TOPICAL 100 GM GEL..GM. TP SCH ×2 (08:57→16:46)
[2019-01-24] MEDS: HYDROGEN PEROXIDE 480 ML BOTTLE TP SCH ×2 (09:00→20:19)
[2019-01-24] MEDS: PRUNE JUICE GT SCH (11:00)
[2019-01-24] MEDS: [UNRECOGNIZED DRUG - OTHER] TP SCH ×2 (13:22→21:50)
[2019-01-24 20:33] VITALS: BP 154/88
[2019-01-24] MEDS: LATANOPROST EYE DROP 0.005% 2.5 ML BOTTLE EACHEYE SCH (21:50)
[2019-01-24] MEDS: PRAVASTATIN SODIUM 20 MG TABLET GT SCH (21:51)
[2019-01-24] MEDS: LORATADINE 10 MG TABLET GT SCH (21:51)
[2019-01-24] MEDS: BENAZEPRIL HCL 5 MG TABLET GT SCH (21:51)
[2019-01-24] MEDS: HYDROCODONE/APAP 7.5/325MG 1 EACH TABLET GT PRN (21:53)
[2019-01-25] MEDS: IPRATROPIUM NEB FS 0.5 MG/2.5 ML AMPUL.NEB NEB SCH ×4 (01:51→20:06)
[2019-01-25] MEDS: CHLORHEXIDINE GLUCONATE 15 ML UDC MM SCH ×2 (05:59→17:54)
[2019-01-25] MEDS: JEVITY 1.2 CAL 1,000 ML BOTTLE GT PRN (05:59)
[2019-01-25 07:55] VITALS: BP 127/78
[2019-01-25] MEDS: POTASSIUM CHLORIDE GT SCH (08:25)
[2019-01-25] MEDS: RIFAXIMIN 550 MG TABLET GT SCH ×2 (08:25→17:54)
[2019-01-25] MEDS: VITS A AND D/WHITE PET/LANOLIN 5 GM PACKET TP SCH ×4 (08:25→22:00)
[2019-01-25] MEDS: FINASTERIDE (5 MG) 5 MG TABLET GT SCH (08:25)
[2019-01-25] MEDS: BIOTIN 5000 MCG GT SCH (08:25)
[2019-01-25] MEDS: CHOLECALCIFEROL (VITAMIN D 3) 400 UNIT TABLET GT SCH ×2 (08:25→21:59)
[2019-01-25] MEDS: DICLOFENAC TOPICAL 100 GM GEL..GM. TP SCH ×2 (08:26→17:54)
[2019-01-25] MEDS: VITAMINS A AND D 56.7 GM TUBE TP SCH ×2 (08:26→21:00)
[2019-01-25] MEDS: PRUNE JUICE GT SCH (11:00)
[2019-01-25] MEDS: [UNRECOGNIZED DRUG - OTHER] TP SCH ×2 (12:40→21:00)
[2019-01-25 19:59] VITALS: BP 139/92
[2019-01-25] MEDS: HYDROGEN PEROXIDE 480 ML BOTTLE TP SCH (21:00)
[2019-01-25] MEDS: LORATADINE 10 MG TABLET GT SCH (21:59)
[2019-01-25] MEDS: LATANOPROST EYE DROP 0.005% 2.5 ML BOTTLE EACHEYE SCH (22:03)
[2019-01-25] MEDS: BENAZEPRIL HCL 5 MG TABLET GT SCH (22:04)
[2019-01-25] MEDS: PRAVASTATIN SODIUM 20 MG TABLET GT SCH (22:05)
[2019-01-26] MEDS: IPRATROPIUM NEB FS 0.5 MG/2.5 ML AMPUL.NEB NEB SCH ×4 (01:22→19:43)
[2019-01-26] MEDS: CHLORHEXIDINE GLUCONATE 15 ML UDC MM SCH ×2 (05:49→17:04)
[2019-01-26 07:45] VITALS: BP 144/88
[2019-01-26] MEDS: FINASTERIDE (5 MG) 5 MG TABLET GT SCH (09:22)
[2019-01-26] MEDS: CHOLECALCIFEROL (VITAMIN D 3) 400 UNIT TABLET GT SCH ×2 (09:22→20:30)
[2019-01-26] MEDS: POTASSIUM CHLORIDE GT SCH (09:22)
[2019-01-26] MEDS: BIOTIN 5000 MCG GT SCH (09:22)
[2019-01-26] MEDS: VITS A AND D/WHITE PET/LANOLIN 5 GM PACKET TP SCH ×4 (09:23→20:31)
[2019-01-26] MEDS: VITAMINS A AND D 56.7 GM TUBE TP SCH ×2 (09:23→20:31)
[2019-01-26] MEDS: HYDROGEN PEROXIDE 480 ML BOTTLE TP SCH ×2 (09:23→20:30)
[2019-01-26] MEDS: DICLOFENAC TOPICAL 100 GM GEL..GM. TP SCH ×2 (09:23→17:04)
[2019-01-26] MEDS: RIFAXIMIN 550 MG TABLET GT SCH ×2 (09:23→17:04)
[2019-01-26] MEDS: PRUNE JUICE GT SCH (11:00)
[2019-01-26] MEDS: [UNRECOGNIZED DRUG - OTHER] TP SCH ×2 (13:29→20:30)
[2019-01-26 20:24] VITALS: BP 123/73
[2019-01-26] MEDS: LORATADINE 10 MG TABLET GT SCH (21:06)
[2019-01-26] MEDS: PRAVASTATIN SODIUM 20 MG TABLET GT SCH (21:06)
[2019-01-26] MEDS: LATANOPROST EYE DROP 0.005% 2.5 ML BOTTLE EACHEYE SCH (21:06)
[2019-01-26] MEDS: BENAZEPRIL HCL 5 MG TABLET GT SCH (21:06)
[2019-01-26] MEDS: GLYCOPYRROLATE 1 MG TABLET GT PRN (23:48)
[2019-01-26] MEDS: JEVITY 1.2 CAL 1,000 ML BOTTLE GT PRN (23:48)
[2019-01-26] MEDS: MAGNESIUM HYDROXIDE 30 ML UDC GT PRN (23:48)
[2019-01-26] MEDS: SIMETHICONE SUSP 40 MG/0.6 ML BOTTLE GT PRN (23:48)
[2019-01-27] MEDS: IPRATROPIUM NEB FS 0.5 MG/2.5 ML AMPUL.NEB NEB SCH ×4 (00:41→20:11)
[2019-01-27] MEDS: CHLORHEXIDINE GLUCONATE 15 ML UDC MM SCH ×2 (05:16→17:02)
[2019-01-27 08:00] VITALS: BP 119/54
--- NOTE | 2019-01-27 08:20 | NUR ---
Seen and examined by Dr. Jerry VORA given at this time. Informed MD that patient with episode of agitation, he is trying to get out of bed. Kept bed in a low position, bed alarm activated and frequent visual checks done, patient is dry.
[2019-01-27] MEDS: HYDROGEN PEROXIDE 480 ML BOTTLE TP SCH ×2 (09:00→20:27)
[2019-01-27] MEDS: RIFAXIMIN 550 MG TABLET GT SCH ×2 (09:09→16:19)
[2019-01-27] MEDS: FINASTERIDE (5 MG) 5 MG TABLET GT SCH (09:09)
[2019-01-27] MEDS: POTASSIUM CHLORIDE GT SCH (09:09)
[2019-01-27] MEDS: CHOLECALCIFEROL (VITAMIN D 3) 400 UNIT TABLET GT SCH ×2 (09:09→20:27)
[2019-01-27] MEDS: BIOTIN 5000 MCG GT SCH (09:09)
[2019-01-27] MEDS: VITS A AND D/WHITE PET/LANOLIN 5 GM PACKET TP SCH ×4 (09:09→20:27)
[2019-01-27] MEDS: DICLOFENAC TOPICAL 100 GM GEL..GM. TP SCH ×2 (09:10→16:19)
[2019-01-27] MEDS: HYDROCODONE/APAP 7.5/325MG 1 EACH TABLET GT PRN (09:10)
[2019-01-27] MEDS: VITAMINS A AND D 56.7 GM TUBE TP SCH ×2 (09:10→20:27)
[2019-01-27] MEDS: PRUNE JUICE GT SCH (11:00)
[2019-01-27] MEDS: [UNRECOGNIZED DRUG - OTHER] TP SCH ×2 (13:00→20:27)
[2019-01-27] MEDS: GLYCOPYRROLATE 1 MG TABLET GT PRN (19:59)
[2019-01-27] MEDS: BISACODYL SUPP (10 MG) 10 MG/SUPP.RECT SUPP.RECT RC PRN (20:00)
[2019-01-27 20:12] VITALS: BP 145/83
[2019-01-27] MEDS: LORATADINE 10 MG TABLET GT SCH (21:04)
[2019-01-27] MEDS: LATANOPROST EYE DROP 0.005% 2.5 ML BOTTLE EACHEYE SCH (21:04)
[2019-01-27] MEDS: BENAZEPRIL HCL 5 MG TABLET GT SCH (21:05)
[2019-01-27] MEDS: PRAVASTATIN SODIUM 20 MG TABLET GT SCH (21:05)
[2019-01-27] MEDS: JEVITY 1.2 CAL 1,000 ML BOTTLE GT PRN (23:20)
[2019-01-28] MEDS: IPRATROPIUM NEB FS 0.5 MG/2.5 ML AMPUL.NEB NEB SCH ×4 (01:31→19:30)
[2019-01-28] MEDS: GLYCOPYRROLATE 1 MG TABLET GT PRN ×3 (02:00→19:55)
[2019-01-28] MEDS: CHLORHEXIDINE GLUCONATE 15 ML UDC MM SCH ×2 (05:37→18:33)
[2019-01-28 07:46] VITALS: BP 158/89
[2019-01-28] MEDS: POTASSIUM CHLORIDE GT SCH (08:31)
[2019-01-28] MEDS: FINASTERIDE (5 MG) 5 MG TABLET GT SCH (08:31)
[2019-01-28] MEDS: BIOTIN 5000 MCG GT SCH (08:31)
[2019-01-28] MEDS: RIFAXIMIN 550 MG TABLET GT SCH ×2 (08:31→16:50)
[2019-01-28] MEDS: CHOLECALCIFEROL (VITAMIN D 3) 400 UNIT TABLET GT SCH ×2 (08:35→20:31)
[2019-01-28] MEDS: DICLOFENAC TOPICAL 100 GM GEL..GM. TP SCH ×2 (09:00→16:51)
[2019-01-28] MEDS: HYDROGEN PEROXIDE 480 ML BOTTLE TP SCH ×2 (09:00→20:31)
[2019-01-28] MEDS: VITS A AND D/WHITE PET/LANOLIN 5 GM PACKET TP SCH ×4 (09:00→20:31)
[2019-01-28] MEDS: VITAMINS A AND D 56.7 GM TUBE TP SCH ×2 (09:00→20:31)
[2019-01-28] MEDS: PRUNE JUICE GT SCH (10:54)
[2019-01-28] MEDS: HYDROCODONE/APAP 7.5/325MG 1 EACH TABLET GT PRN ×2 (11:52→19:46)
[2019-01-28] MEDS: [UNRECOGNIZED DRUG - OTHER] TP SCH ×2 (13:00→20:31)
[2019-01-28] MEDS: JEVITY 1.2 CAL 1,000 ML BOTTLE GT PRN (18:33)
[2019-01-28 19:41] VITALS: BP 148/92
[2019-01-28] MEDS: LORATADINE 10 MG TABLET GT SCH (21:01)
[2019-01-28] MEDS: BENAZEPRIL HCL 5 MG TABLET GT SCH (21:02)
[2019-01-28] MEDS: PRAVASTATIN SODIUM 20 MG TABLET GT SCH (21:02)
[2019-01-28] MEDS: LATANOPROST EYE DROP 0.005% 2.5 ML BOTTLE EACHEYE SCH (21:03)
[2019-01-29] MEDS: IPRATROPIUM NEB FS 0.5 MG/2.5 ML AMPUL.NEB NEB SCH ×4 (01:24→19:49)
[2019-01-29] MEDS: CHLORHEXIDINE GLUCONATE 15 ML UDC MM SCH ×2 (05:13→17:47)
[2019-01-29 07:35] VITALS: BP 133/77
[2019-01-29] MEDS: CHOLECALCIFEROL (VITAMIN D 3) 400 UNIT TABLET GT SCH ×2 (08:48→21:25)
[2019-01-29] MEDS: VITS A AND D/WHITE PET/LANOLIN 5 GM PACKET TP SCH ×4 (08:48→22:13)
[2019-01-29] MEDS: POTASSIUM CHLORIDE GT SCH (08:48)
[2019-01-29] MEDS: RIFAXIMIN 550 MG TABLET GT SCH ×2 (08:48→17:47)
[2019-01-29] MEDS: VITAMINS A AND D 56.7 GM TUBE TP SCH ×2 (08:48→22:13)
[2019-01-29] MEDS: BIOTIN 5000 MCG GT SCH (08:48)
[2019-01-29] MEDS: FINASTERIDE (5 MG) 5 MG TABLET GT SCH (08:48)
[2019-01-29] MEDS: DICLOFENAC TOPICAL 100 GM GEL..GM. TP SCH ×2 (08:49→17:47)
[2019-01-29] MEDS: PRUNE JUICE GT SCH (11:00)
[2019-01-29] MEDS: [UNRECOGNIZED DRUG - OTHER] TP SCH ×2 (12:26→22:13)
--- NOTE | 2019-01-29 14:00 | NUR ---
Seen and examined by Dr. Edwards, no new order given.
[2019-01-29] MEDS: JEVITY 1.2 CAL 1,000 ML BOTTLE GT PRN (18:30)
[2019-01-29] MEDS: HYDROGEN PEROXIDE 480 ML BOTTLE TP SCH (20:47)
[2019-01-29 20:48] VITALS: BP 143/81
[2019-01-29] MEDS: LATANOPROST EYE DROP 0.005% 2.5 ML BOTTLE EACHEYE SCH (21:19)
[2019-01-29] MEDS: BENAZEPRIL HCL 5 MG TABLET GT SCH (21:20)
[2019-01-29] MEDS: PRAVASTATIN SODIUM 20 MG TABLET GT SCH (21:22)
[2019-01-29] MEDS: LORATADINE 10 MG TABLET GT SCH (21:26)
--- NOTE | 2019-01-29 23:38 | NUR ---
RT NOTES RECEIVED TRACH PT ON COOL AEROSOL 28% 5L. NO SIGNS OF RESP DISTRESS NOTED AT THIS TIME. AIRWAY PATENT AND SECURED. PT SUCTIONED. HHN TX GIVEN WITH NO ADVERSE REACTION NOTED. WILL CONTINUE TO MONITOR.
[2019-01-30] MEDS: IPRATROPIUM NEB FS 0.5 MG/2.5 ML AMPUL.NEB NEB SCH ×4 (01:35→19:43)
[2019-01-30] MEDS: HYDROCODONE/APAP 7.5/325MG 1 EACH TABLET GT PRN (02:26)
[2019-01-30] MEDS: CHLORHEXIDINE GLUCONATE 15 ML UDC MM SCH ×2 (06:25→17:31)
[2019-01-30 07:37] VITALS: BP 104/71
[2019-01-30] MEDS: POTASSIUM CHLORIDE GT SCH (08:45)
[2019-01-30] MEDS: FINASTERIDE (5 MG) 5 MG TABLET GT SCH (08:45)
[2019-01-30] MEDS: VITAMINS A AND D 56.7 GM TUBE TP SCH ×2 (08:45→21:28)
[2019-01-30] MEDS: BIOTIN 5000 MCG GT SCH (08:45)
[2019-01-30] MEDS: VITS A AND D/WHITE PET/LANOLIN 5 GM PACKET TP SCH ×4 (08:45→21:28)
[2019-01-30] MEDS: DICLOFENAC TOPICAL 100 GM GEL..GM. TP SCH ×2 (08:45→17:31)
[2019-01-30] MEDS: RIFAXIMIN 550 MG TABLET GT SCH ×2 (08:45→17:31)
[2019-01-30] MEDS: CHOLECALCIFEROL (VITAMIN D 3) 400 UNIT TABLET GT SCH ×2 (08:45→21:27)
[2019-01-30] MEDS: HYDROGEN PEROXIDE 480 ML BOTTLE TP SCH ×2 (09:00→21:06)
[2019-01-30] MEDS: MAGNESIUM HYDROXIDE 30 ML UDC GT PRN (11:30)
[2019-01-30] MEDS: PRUNE JUICE GT SCH (11:45)
[2019-01-30] MEDS: JEVITY 1.2 CAL 1,000 ML BOTTLE GT PRN (12:10)
[2019-01-30] MEDS: [UNRECOGNIZED DRUG - OTHER] TP SCH ×2 (12:29→21:27)
[2019-01-30 20:38] VITALS: BP 130/83
[2019-01-30] MEDS: PRAVASTATIN SODIUM 20 MG TABLET GT SCH (21:28)
[2019-01-30] MEDS: LATANOPROST EYE DROP 0.005% 2.5 ML BOTTLE EACHEYE SCH (21:28)
[2019-01-30] MEDS: BENAZEPRIL HCL 5 MG TABLET GT SCH (21:28)
[2019-01-30] MEDS: LORATADINE 10 MG TABLET GT SCH (21:28)
[2019-01-31] MEDS: IPRATROPIUM NEB FS 0.5 MG/2.5 ML AMPUL.NEB NEB SCH ×4 (01:41→19:53)
[2019-01-31] MEDS: CHLORHEXIDINE GLUCONATE 15 ML UDC MM SCH ×2 (05:50→17:03)
[2019-01-31] MEDS: JEVITY 1.2 CAL 1,000 ML BOTTLE GT PRN (05:50)
[2019-01-31 07:57] VITALS: BP 155/96
[2019-01-31] MEDS: FINASTERIDE (5 MG) 5 MG TABLET GT SCH (08:54)
[2019-01-31] MEDS: BIOTIN 5000 MCG GT SCH (08:54)
[2019-01-31] MEDS: CHOLECALCIFEROL (VITAMIN D 3) 400 UNIT TABLET GT SCH ×2 (08:54→21:37)
[2019-01-31] MEDS: POTASSIUM CHLORIDE GT SCH (08:54)
[2019-01-31] MEDS: RIFAXIMIN 550 MG TABLET GT SCH ×2 (08:54→17:03)
[2019-01-31] MEDS: VITAMINS A AND D 56.7 GM TUBE TP SCH ×2 (09:00→21:38)
[2019-01-31] MEDS: DICLOFENAC TOPICAL 100 GM GEL..GM. TP SCH ×2 (09:00→17:03)
[2019-01-31] MEDS: HYDROGEN PEROXIDE 480 ML BOTTLE TP SCH ×2 (09:00→21:33)
[2019-01-31] MEDS: VITS A AND D/WHITE PET/LANOLIN 5 GM PACKET TP SCH ×4 (09:00→21:38)
[2019-01-31] MEDS: PRUNE JUICE GT SCH (11:00)
[2019-01-31] MEDS: [UNRECOGNIZED DRUG - OTHER] TP SCH ×2 (12:32→21:37)
[2019-01-31] MEDS: HYDROCODONE/APAP 7.5/325MG 1 EACH TABLET GT PRN (13:21)
--- NOTE | 2019-01-31 14:35 | NUR ---
Seen by Dr Edwards. at bedside. Informed Dr Edwards that pt has not been using soft AFO boots. Received order to DC soft AFO boots. aware.
[2019-01-31 20:15] VITALS: BP 144/86
[2019-01-31] MEDS: LORATADINE 10 MG TABLET GT SCH (21:38)
[2019-01-31] MEDS: PRAVASTATIN SODIUM 20 MG TABLET GT SCH (21:38)
[2019-01-31] MEDS: BENAZEPRIL HCL 5 MG TABLET GT SCH (21:38)
[2019-01-31] MEDS: LATANOPROST EYE DROP 0.005% 2.5 ML BOTTLE EACHEYE SCH (21:38)
[2019-02-01] MEDS: IPRATROPIUM NEB FS 0.5 MG/2.5 ML AMPUL.NEB NEB SCH ×4 (01:16→19:55)
[2019-02-01] MEDS: CHLORHEXIDINE GLUCONATE 15 ML UDC MM SCH ×2 (05:50→17:24)
[2019-02-01 07:36] VITALS: BP 159/98
[2019-02-01] MEDS: VITS A AND D/WHITE PET/LANOLIN 5 GM PACKET TP SCH ×4 (08:59→21:11)
[2019-02-01] MEDS: POTASSIUM CHLORIDE GT SCH (08:59)
[2019-02-01] MEDS: VITAMINS A AND D 56.7 GM TUBE TP SCH ×2 (08:59→21:11)
[2019-02-01] MEDS: CHOLECALCIFEROL (VITAMIN D 3) 400 UNIT TABLET GT SCH ×2 (08:59→21:11)
[2019-02-01] MEDS: FINASTERIDE (5 MG) 5 MG TABLET GT SCH (08:59)
[2019-02-01] MEDS: BIOTIN 5000 MCG GT SCH (08:59)
[2019-02-01] MEDS: RIFAXIMIN 550 MG TABLET GT SCH ×2 (08:59→17:23)
[2019-02-01] MEDS: DICLOFENAC TOPICAL 100 GM GEL..GM. TP SCH ×2 (09:00→17:24)
[2019-02-01] MEDS: HYDROGEN PEROXIDE 480 ML BOTTLE TP SCH ×2 (09:07→22:16)
[2019-02-01] MEDS: PRUNE JUICE GT SCH (11:00)
[2019-02-01] MEDS: [UNRECOGNIZED DRUG - OTHER] TP SCH ×2 (13:00→21:11)
[2019-02-01 20:15] VITALS: BP 139/86
[2019-02-01] MEDS: PRAVASTATIN SODIUM 20 MG TABLET GT SCH (21:11)
[2019-02-01] MEDS: BENAZEPRIL HCL 5 MG TABLET GT SCH (21:11)
[2019-02-01] MEDS: LORATADINE 10 MG TABLET GT SCH (21:11)
[2019-02-01] MEDS: LATANOPROST EYE DROP 0.005% 2.5 ML BOTTLE EACHEYE SCH (21:11)
[2019-02-01] MEDS: GLYCOPYRROLATE 1 MG TABLET GT PRN (21:47)
[2019-02-01] MEDS: HYDROCODONE/APAP 7.5/325MG 1 EACH TABLET GT PRN (22:37)
[2019-02-02] MEDS: IPRATROPIUM NEB FS 0.5 MG/2.5 ML AMPUL.NEB NEB SCH ×4 (00:57→19:52)
[2019-02-02] MEDS: CHLORHEXIDINE GLUCONATE 15 ML UDC MM SCH ×2 (05:32→17:19)
[2019-02-02] MEDS: JEVITY 1.2 CAL 1,000 ML BOTTLE GT PRN (05:32)
[2019-02-02 07:33] VITALS: BP 127/80
[2019-02-02] MEDS: POTASSIUM CHLORIDE GT SCH (08:37)
[2019-02-02] MEDS: BIOTIN 5000 MCG GT SCH (08:37)
[2019-02-02] MEDS: DICLOFENAC TOPICAL 100 GM GEL..GM. TP SCH ×2 (08:38→17:19)
[2019-02-02] MEDS: FINASTERIDE (5 MG) 5 MG TABLET GT SCH (08:38)
[2019-02-02] MEDS: VITS A AND D/WHITE PET/LANOLIN 5 GM PACKET TP SCH ×4 (08:38→21:29)
[2019-02-02] MEDS: VITAMINS A AND D 56.7 GM TUBE TP SCH ×2 (08:38→21:29)
[2019-02-02] MEDS: CHOLECALCIFEROL (VITAMIN D 3) 400 UNIT TABLET GT SCH ×2 (08:38→21:28)
[2019-02-02] MEDS: RIFAXIMIN 550 MG TABLET GT SCH ×2 (08:38→17:19)
[2019-02-02] MEDS: HYDROGEN PEROXIDE 480 ML BOTTLE TP SCH ×2 (09:48→21:00)
[2019-02-02] MEDS: PRUNE JUICE GT SCH (11:00)
[2019-02-02] MEDS: [UNRECOGNIZED DRUG - OTHER] TP SCH ×2 (13:01→21:29)
[2019-02-02 20:12] VITALS: BP 145/74
[2019-02-02] MEDS: LATANOPROST EYE DROP 0.005% 2.5 ML BOTTLE EACHEYE SCH (21:29)
[2019-02-02] MEDS: PRAVASTATIN SODIUM 20 MG TABLET GT SCH (21:29)
[2019-02-02] MEDS: LORATADINE 10 MG TABLET GT SCH (21:29)
[2019-02-02] MEDS: BENAZEPRIL HCL 5 MG TABLET GT SCH (21:29)
[2019-02-03] MEDS: IPRATROPIUM NEB FS 0.5 MG/2.5 ML AMPUL.NEB NEB SCH ×4 (02:05→19:23)
[2019-02-03] MEDS: CHLORHEXIDINE GLUCONATE 15 ML UDC MM SCH ×2 (05:33→17:22)
[2019-02-03] MEDS: JEVITY 1.2 CAL 1,000 ML BOTTLE GT PRN (05:33)
[2019-02-03] MEDS: MAGNESIUM HYDROXIDE 30 ML UDC GT PRN (06:36)
[2019-02-03] MEDS: HYDROGEN PEROXIDE 480 ML BOTTLE TP SCH ×2 (07:08→21:30)
[2019-02-03 07:39] VITALS: BP 127/75
[2019-02-03] MEDS: POTASSIUM CHLORIDE GT SCH (08:54)
[2019-02-03] MEDS: RIFAXIMIN 550 MG TABLET GT SCH ×2 (08:54→17:22)
[2019-02-03] MEDS: VITS A AND D/WHITE PET/LANOLIN 5 GM PACKET TP SCH ×4 (08:54→21:18)
[2019-02-03] MEDS: VITAMINS A AND D 56.7 GM TUBE TP SCH ×2 (08:54→21:18)
[2019-02-03] MEDS: FINASTERIDE (5 MG) 5 MG TABLET GT SCH (08:54)
[2019-02-03] MEDS: DICLOFENAC TOPICAL 100 GM GEL..GM. TP SCH ×2 (08:54→17:22)
[2019-02-03] MEDS: BIOTIN 5000 MCG GT SCH (08:54)
[2019-02-03] MEDS: CHOLECALCIFEROL (VITAMIN D 3) 400 UNIT TABLET GT SCH ×2 (08:54→21:17)
--- NOTE | 2019-02-03 09:32 | NUR ---
RT PATIENT REC'D TRACHED ON ORDERED MODALITY TOLERATED WELL. ALL SAFETY MEASURES CHECKED. TRACH PATENT AND SECURE IN PROPER POSITION. TRACH CARE DONE. TRACH TIES, GAUZE AND INNER CANNULA CHANGED. NO SOB OR DISTRESS NOTED. WILL CONTINUE CURRENT PLAN OF CARE. Addendum: 02/03/19 at 0932 by CURT COLLINS RT Amended: Links added.
[2019-02-03] MEDS: PRUNE JUICE GT SCH (11:00)
[2019-02-03] MEDS: [UNRECOGNIZED DRUG - OTHER] TP SCH ×2 (13:30→21:17)
[2019-02-03] MEDS: GLYCOPYRROLATE 1 MG TABLET GT PRN (17:28)
[2019-02-03 20:13] VITALS: BP 140/73
[2019-02-03] MEDS: LORATADINE 10 MG TABLET GT SCH (21:18)
[2019-02-03] MEDS: LATANOPROST EYE DROP 0.005% 2.5 ML BOTTLE EACHEYE SCH (21:18)
[2019-02-03] MEDS: BENAZEPRIL HCL 5 MG TABLET GT SCH (21:18)
[2019-02-03] MEDS: PRAVASTATIN SODIUM 20 MG TABLET GT SCH (21:19)
[2019-02-03] MEDS: HYDROCODONE/APAP 7.5/325MG 1 EACH TABLET GT PRN (22:30)
[2019-02-04] MEDS: IPRATROPIUM NEB FS 0.5 MG/2.5 ML AMPUL.NEB NEB SCH ×4 (01:56→19:33)
[2019-02-04] MEDS: JEVITY 1.2 CAL 1,000 ML BOTTLE GT PRN (02:25)
[2019-02-04] MEDS: CHLORHEXIDINE GLUCONATE 15 ML UDC MM SCH ×2 (05:38→16:14)
[2019-02-04 07:55] VITALS: BP 118/69
[2019-02-04] MEDS: POTASSIUM CHLORIDE GT SCH (09:00)
[2019-02-04] MEDS: BIOTIN 5000 MCG GT SCH (09:00)
[2019-02-04] MEDS: VITAMINS A AND D 56.7 GM TUBE TP SCH ×2 (09:00→21:22)
[2019-02-04] MEDS: FINASTERIDE (5 MG) 5 MG TABLET GT SCH (09:00)
[2019-02-04] MEDS: VITS A AND D/WHITE PET/LANOLIN 5 GM PACKET TP SCH ×4 (09:00→21:21)
[2019-02-04] MEDS: CHOLECALCIFEROL (VITAMIN D 3) 400 UNIT TABLET GT SCH ×2 (09:00→21:21)
[2019-02-04] MEDS: RIFAXIMIN 550 MG TABLET GT SCH ×2 (09:00→16:14)
[2019-02-04] MEDS: DICLOFENAC TOPICAL 100 GM GEL..GM. TP SCH ×2 (09:00→16:14)
[2019-02-04] MEDS: HYDROGEN PEROXIDE 480 ML BOTTLE TP SCH ×2 (09:53→19:33)
[2019-02-04] MEDS: PRUNE JUICE GT SCH (10:08)
[2019-02-04] MEDS: [UNRECOGNIZED DRUG - OTHER] TP SCH ×2 (12:24→21:21)
[2019-02-04] MEDS: HYDROCODONE/APAP 7.5/325MG 1 EACH TABLET GT PRN (18:14)
[2019-02-04 20:57] VITALS: BP 138/76
[2019-02-04] MEDS: LORATADINE 10 MG TABLET GT SCH (21:22)
[2019-02-04] MEDS: LATANOPROST EYE DROP 0.005% 2.5 ML BOTTLE EACHEYE SCH (21:22)
[2019-02-04] MEDS: BENAZEPRIL HCL 5 MG TABLET GT SCH (21:23)
[2019-02-04] MEDS: PRAVASTATIN SODIUM 20 MG TABLET GT SCH (21:23)
[2019-02-04] MEDS: GLYCOPYRROLATE 1 MG TABLET GT PRN (21:25)
--- NOTE | 2019-02-04 23:23 | NUR ---
PATIENT RECEIVED ON ROOM AIR THEN PLACED BACK ON 28% AEROSOL T-TUBE. SUCTIONED FOR MINIMAL, THIN, YELLOW SECRETIONS. GIVEN IN-LINE TREATMENTS WITH NO ADVERSE REACTIONS. AMBU BAG AT BEDSIDE. Addendum: 02/04/19 at 2325 by MINOO CORRIGAN RT Amended: Links added. Addendum: 02/04/19 at 2342 by MINOO Magana SULIT RT PATIENT RECEIVED ON ROOM AIR THEN PLACED BACK ON 28% AEROSOL T-COLLAR, TOLERATING WITH NO DISTRESS NOTED. SUCTIONED FOR MINIMAL, THIN, YELLOW SECRETIONS. GIVEN IN-LINE TREATMENTS WITH NO ADVERSE REACTIONS. AMBU BAG AT BEDSIDE.
[2019-02-05] MEDS: JEVITY 1.2 CAL 1,000 ML BOTTLE GT PRN (00:06)
[2019-02-05] MEDS: IPRATROPIUM NEB FS 0.5 MG/2.5 ML AMPUL.NEB NEB SCH ×4 (01:32→19:10)
[2019-02-05] MEDS: HYDROCODONE/APAP 7.5/325MG 1 EACH TABLET GT PRN ×2 (03:37→17:20)
[2019-02-05] MEDS: CHLORHEXIDINE GLUCONATE 15 ML UDC MM SCH ×2 (05:51→16:41)
[2019-02-05 07:41] VITALS: BP 148/64
[2019-02-05] MEDS: HYDROGEN PEROXIDE 480 ML BOTTLE TP SCH ×2 (09:00→20:46)
[2019-02-05] MEDS: POTASSIUM CHLORIDE GT SCH (09:32)
[2019-02-05] MEDS: FINASTERIDE (5 MG) 5 MG TABLET GT SCH (09:32)
[2019-02-05] MEDS: BIOTIN 5000 MCG GT SCH (09:32)
[2019-02-05] MEDS: VITAMINS A AND D 56.7 GM TUBE TP SCH ×2 (09:35→20:47)
[2019-02-05] MEDS: VITS A AND D/WHITE PET/LANOLIN 5 GM PACKET TP SCH ×4 (09:35→20:47)
[2019-02-05] MEDS: RIFAXIMIN 550 MG TABLET GT SCH ×2 (09:35→16:41)
[2019-02-05] MEDS: CHOLECALCIFEROL (VITAMIN D 3) 400 UNIT TABLET GT SCH ×2 (09:35→20:46)
[2019-02-05] MEDS: DICLOFENAC TOPICAL 100 GM GEL..GM. TP SCH ×2 (09:35→16:41)
[2019-02-05] MEDS: PRUNE JUICE GT SCH (11:00)
[2019-02-05] MEDS: [UNRECOGNIZED DRUG - OTHER] TP SCH ×2 (13:00→20:46)
[2019-02-05 20:34] VITALS: BP 152/84
[2019-02-05] MEDS: LATANOPROST EYE DROP 0.005% 2.5 ML BOTTLE EACHEYE SCH (21:57)
[2019-02-05] MEDS: LORATADINE 10 MG TABLET GT SCH (21:57)
[2019-02-05] MEDS: PRAVASTATIN SODIUM 20 MG TABLET GT SCH (21:58)
[2019-02-05] MEDS: BENAZEPRIL HCL 5 MG TABLET GT SCH (21:58)
[2019-02-06] MEDS: JEVITY 1.2 CAL 1,000 ML BOTTLE GT PRN (00:12)
[2019-02-06] MEDS: IPRATROPIUM NEB FS 0.5 MG/2.5 ML AMPUL.NEB NEB SCH ×4 (01:15→19:18)
[2019-02-06] MEDS: CHLORHEXIDINE GLUCONATE 15 ML UDC MM SCH ×2 (05:48→17:02)
[2019-02-06] MEDS: HYDROGEN PEROXIDE 480 ML BOTTLE TP SCH ×2 (09:00→21:28)
[2019-02-06] MEDS: BIOTIN 5000 MCG GT SCH (09:10)
[2019-02-06] MEDS: POTASSIUM CHLORIDE GT SCH (09:10)
[2019-02-06] MEDS: CHOLECALCIFEROL (VITAMIN D 3) 400 UNIT TABLET GT SCH ×2 (09:11→20:44)
[2019-02-06] MEDS: RIFAXIMIN 550 MG TABLET GT SCH ×2 (09:11→17:02)
[2019-02-06] MEDS: FINASTERIDE (5 MG) 5 MG TABLET GT SCH (09:11)
[2019-02-06] MEDS: DICLOFENAC TOPICAL 100 GM GEL..GM. TP SCH ×2 (09:12→17:02)
[2019-02-06] MEDS: VITS A AND D/WHITE PET/LANOLIN 5 GM PACKET TP SCH ×4 (09:12→20:45)
[2019-02-06] MEDS: VITAMINS A AND D 56.7 GM TUBE TP SCH ×2 (09:12→20:45)
[2019-02-06 09:50] VITALS: BP 133/72
[2019-02-06] MEDS: PRUNE JUICE GT SCH (11:00)
[2019-02-06] MEDS: [UNRECOGNIZED DRUG - OTHER] TP SCH ×2 (12:16→20:44)
--- NOTE | 2019-02-06 20:00 | NUR ---
RN NOTES Seen by Denise Pichardo NP, with no new orders.
[2019-02-06 20:42] VITALS: BP 135/88
[2019-02-06] MEDS: LORATADINE 10 MG TABLET GT SCH (21:49)
[2019-02-06] MEDS: LATANOPROST EYE DROP 0.005% 2.5 ML BOTTLE EACHEYE SCH (21:49)
[2019-02-06] MEDS: BENAZEPRIL HCL 5 MG TABLET GT SCH (21:49)
[2019-02-06] MEDS: PRAVASTATIN SODIUM 20 MG TABLET GT SCH (21:49)
[2019-02-07] MEDS: JEVITY 1.2 CAL 1,000 ML BOTTLE GT PRN ×2 (00:33→19:16)
[2019-02-07] MEDS: IPRATROPIUM NEB FS 0.5 MG/2.5 ML AMPUL.NEB NEB SCH ×4 (00:58→19:42)
[2019-02-07] MEDS: CHLORHEXIDINE GLUCONATE 15 ML UDC MM SCH ×2 (05:22→17:05)
[2019-02-07 07:57] VITALS: BP 143/84
[2019-02-07] MEDS: VITS A AND D/WHITE PET/LANOLIN 5 GM PACKET TP SCH ×4 (08:48→20:34)
[2019-02-07] MEDS: RIFAXIMIN 550 MG TABLET GT SCH ×2 (08:48→17:05)
[2019-02-07] MEDS: BIOTIN 5000 MCG GT SCH (08:48)
[2019-02-07] MEDS: CHOLECALCIFEROL (VITAMIN D 3) 400 UNIT TABLET GT SCH ×2 (08:48→20:33)
[2019-02-07] MEDS: FINASTERIDE (5 MG) 5 MG TABLET GT SCH (08:48)
[2019-02-07] MEDS: POTASSIUM CHLORIDE GT SCH (08:48)
[2019-02-07] MEDS: VITAMINS A AND D 56.7 GM TUBE TP SCH ×2 (08:49→20:34)
[2019-02-07] MEDS: DICLOFENAC TOPICAL 100 GM GEL..GM. TP SCH ×2 (08:49→17:05)
[2019-02-07] MEDS: HYDROGEN PEROXIDE 480 ML BOTTLE TP SCH ×2 (09:00→21:00)
[2019-02-07] MEDS: PRUNE JUICE GT SCH (11:00)
[2019-02-07] MEDS: [UNRECOGNIZED DRUG - OTHER] TP SCH ×2 (13:00→20:33)
[2019-02-07] MEDS: GLYCOPYRROLATE 1 MG TABLET GT PRN (20:34)
[2019-02-07 20:58] VITALS: BP 139/93
[2019-02-07] MEDS: HYDROCODONE/APAP 7.5/325MG 1 EACH TABLET GT PRN (21:17)
[2019-02-07] MEDS: LATANOPROST EYE DROP 0.005% 2.5 ML BOTTLE EACHEYE SCH (21:20)
[2019-02-07] MEDS: LORATADINE 10 MG TABLET GT SCH (21:20)
[2019-02-07] MEDS: PRAVASTATIN SODIUM 20 MG TABLET GT SCH (21:21)
[2019-02-07] MEDS: BENAZEPRIL HCL 5 MG TABLET GT SCH (21:21)
[2019-02-08] MEDS: IPRATROPIUM NEB FS 0.5 MG/2.5 ML AMPUL.NEB NEB SCH ×4 (01:26→19:57)
[2019-02-08] MEDS: CHLORHEXIDINE GLUCONATE 15 ML UDC MM SCH ×2 (05:47→17:18)
[2019-02-08 07:53] VITALS: BP 130/84
[2019-02-08] MEDS: DICLOFENAC TOPICAL 100 GM GEL..GM. TP SCH ×2 (09:00→17:17)
[2019-02-08] MEDS: VITAMINS A AND D 56.7 GM TUBE TP SCH ×2 (09:00→21:39)
[2019-02-08] MEDS: VITS A AND D/WHITE PET/LANOLIN 5 GM PACKET TP SCH ×4 (09:00→21:38)
[2019-02-08] MEDS: POTASSIUM CHLORIDE GT SCH (09:05)
[2019-02-08] MEDS: BIOTIN 5000 MCG GT SCH (09:05)
[2019-02-08] MEDS: FINASTERIDE (5 MG) 5 MG TABLET GT SCH (09:05)
[2019-02-08] MEDS: RIFAXIMIN 550 MG TABLET GT SCH ×2 (09:06→17:17)
[2019-02-08] MEDS: CHOLECALCIFEROL (VITAMIN D 3) 400 UNIT TABLET GT SCH ×2 (09:06→21:38)
[2019-02-08] MEDS: HYDROGEN PEROXIDE 480 ML BOTTLE TP SCH ×2 (09:06→20:40)
[2019-02-08] MEDS: PRUNE JUICE GT SCH (11:00)
[2019-02-08] MEDS: [UNRECOGNIZED DRUG - OTHER] TP SCH ×2 (12:56→21:38)
[2019-02-08 20:40] VITALS: BP 143/83
[2019-02-08] MEDS: BENAZEPRIL HCL 5 MG TABLET GT SCH (21:39)
[2019-02-08] MEDS: LATANOPROST EYE DROP 0.005% 2.5 ML BOTTLE EACHEYE SCH (21:39)
[2019-02-08] MEDS: LORATADINE 10 MG TABLET GT SCH (21:39)
[2019-02-08] MEDS: PRAVASTATIN SODIUM 20 MG TABLET GT SCH (21:40)
[2019-02-08] MEDS: GLYCOPYRROLATE 1 MG TABLET GT PRN (22:11)
[2019-02-08] MEDS: HYDROCODONE/APAP 7.5/325MG 1 EACH TABLET GT PRN (22:12)
[2019-02-09] MEDS: IPRATROPIUM NEB FS 0.5 MG/2.5 ML AMPUL.NEB NEB SCH ×4 (01:35→19:55)
[2019-02-09] MEDS: CHLORHEXIDINE GLUCONATE 15 ML UDC MM SCH ×2 (05:31→17:50)
[2019-02-09 07:44] VITALS: BP 131/85
[2019-02-09] MEDS: HYDROGEN PEROXIDE 480 ML BOTTLE TP SCH ×2 (09:00→21:00)
[2019-02-09] MEDS: VITAMINS A AND D 56.7 GM TUBE TP SCH ×2 (09:00→21:28)
[2019-02-09] MEDS: DICLOFENAC TOPICAL 100 GM GEL..GM. TP SCH ×2 (09:00→17:52)
[2019-02-09] MEDS: VITS A AND D/WHITE PET/LANOLIN 5 GM PACKET TP SCH ×4 (09:00→21:28)
[2019-02-09] MEDS: BIOTIN 5000 MCG GT SCH (09:48)
[2019-02-09] MEDS: FINASTERIDE (5 MG) 5 MG TABLET GT SCH (09:48)
[2019-02-09] MEDS: POTASSIUM CHLORIDE GT SCH (09:48)
[2019-02-09] MEDS: RIFAXIMIN 550 MG TABLET GT SCH ×2 (09:49→17:50)
[2019-02-09] MEDS: CHOLECALCIFEROL (VITAMIN D 3) 400 UNIT TABLET GT SCH ×2 (09:49→21:46)
[2019-02-09] MEDS: PRUNE JUICE GT SCH (11:00)
[2019-02-09] MEDS: SUMATRIPTAN SUCCINATE 25 MG TABLET GT PRN (12:22)
[2019-02-09] MEDS: [UNRECOGNIZED DRUG - OTHER] TP SCH ×2 (13:00→21:27)
[2019-02-09] MEDS: JEVITY 1.2 CAL 1,000 ML BOTTLE GT PRN (13:29)
--- NOTE | 2019-02-09 13:40 | NUR ---
Seen and examined by Dr. Jrery rain.
[2019-02-09 20:31] VITALS: BP 119/74
[2019-02-09] MEDS: LATANOPROST EYE DROP 0.005% 2.5 ML BOTTLE EACHEYE SCH (21:29)
[2019-02-09] MEDS: BENAZEPRIL HCL 5 MG TABLET GT SCH (21:33)
[2019-02-09] MEDS: PRAVASTATIN SODIUM 20 MG TABLET GT SCH (21:33)
[2019-02-09] MEDS: LORATADINE 10 MG TABLET GT SCH (22:01)
[2019-02-10] MEDS: IPRATROPIUM NEB FS 0.5 MG/2.5 ML AMPUL.NEB NEB SCH ×4 (01:50→19:21)
[2019-02-10] MEDS: CHLORHEXIDINE GLUCONATE 15 ML UDC MM SCH ×2 (05:03→17:42)
[2019-02-10] MEDS: JEVITY 1.2 CAL 1,000 ML BOTTLE GT PRN (06:50)
[2019-02-10 07:56] VITALS: BP 126/75
[2019-02-10] MEDS: HYDROGEN PEROXIDE 480 ML BOTTLE TP SCH ×2 (09:00→21:00)
[2019-02-10] MEDS: DICLOFENAC TOPICAL 100 GM GEL..GM. TP SCH ×2 (09:12→17:42)
[2019-02-10] MEDS: POTASSIUM CHLORIDE GT SCH (09:12)
[2019-02-10] MEDS: RIFAXIMIN 550 MG TABLET GT SCH ×2 (09:12→17:42)
[2019-02-10] MEDS: VITAMINS A AND D 56.7 GM TUBE TP SCH ×2 (09:12→21:22)
[2019-02-10] MEDS: FINASTERIDE (5 MG) 5 MG TABLET GT SCH (09:12)
[2019-02-10] MEDS: BIOTIN 5000 MCG GT SCH (09:12)
[2019-02-10] MEDS: VITS A AND D/WHITE PET/LANOLIN 5 GM PACKET TP SCH ×4 (09:12→21:22)
[2019-02-10] MEDS: CHOLECALCIFEROL (VITAMIN D 3) 400 UNIT TABLET GT SCH ×2 (09:12→21:22)
[2019-02-10] MEDS: PRUNE JUICE GT SCH (11:00)
[2019-02-10] MEDS: [UNRECOGNIZED DRUG - OTHER] TP SCH ×2 (12:07→21:22)
[2019-02-10 19:56] VITALS: BP 145/69
[2019-02-10] MEDS: HYDROCODONE/APAP 7.5/325MG 1 EACH TABLET GT PRN (20:09)
[2019-02-10] MEDS: LORATADINE 10 MG TABLET GT SCH (21:22)
[2019-02-10] MEDS: LATANOPROST EYE DROP 0.005% 2.5 ML BOTTLE EACHEYE SCH (21:22)
[2019-02-10] MEDS: PRAVASTATIN SODIUM 20 MG TABLET GT SCH (21:23)
[2019-02-10] MEDS: BENAZEPRIL HCL 5 MG TABLET GT SCH (21:23)
[2019-02-10] MEDS: GLYCOPYRROLATE 1 MG TABLET GT PRN (21:33)
[2019-02-11] MEDS: IPRATROPIUM NEB FS 0.5 MG/2.5 ML AMPUL.NEB NEB SCH ×4 (00:43→19:50)
[2019-02-11] MEDS: CHLORHEXIDINE GLUCONATE 15 ML UDC MM SCH ×2 (05:53→17:54)
[2019-02-11] MEDS: JEVITY 1.2 CAL 1,000 ML BOTTLE GT PRN (05:53)
[2019-02-11 07:56] VITALS: BP 128/80
[2019-02-11] MEDS: FINASTERIDE (5 MG) 5 MG TABLET GT SCH (08:37)
[2019-02-11] MEDS: VITS A AND D/WHITE PET/LANOLIN 5 GM PACKET TP SCH ×4 (08:37→21:07)
[2019-02-11] MEDS: POTASSIUM CHLORIDE GT SCH (08:37)
[2019-02-11] MEDS: CHOLECALCIFEROL (VITAMIN D 3) 400 UNIT TABLET GT SCH ×2 (08:37→21:07)
[2019-02-11] MEDS: BIOTIN 5000 MCG GT SCH (08:37)
[2019-02-11] MEDS: RIFAXIMIN 550 MG TABLET GT SCH ×2 (08:37→16:46)
[2019-02-11] MEDS: DICLOFENAC TOPICAL 100 GM GEL..GM. TP SCH ×2 (08:38→16:46)
[2019-02-11] MEDS: VITAMINS A AND D 56.7 GM TUBE TP SCH ×2 (08:38→21:07)
[2019-02-11] MEDS: PRUNE JUICE GT SCH (11:00)
[2019-02-11] MEDS: HYDROGEN PEROXIDE 480 ML BOTTLE TP SCH ×2 (11:08→21:00)
[2019-02-11] MEDS: GLYCOPYRROLATE 1 MG TABLET GT PRN ×2 (12:37→21:09)
[2019-02-11] MEDS: [UNRECOGNIZED DRUG - OTHER] TP SCH ×2 (12:37→21:07)
[2019-02-11] MEDS: HYDROCODONE/APAP 7.5/325MG 1 EACH TABLET GT PRN ×2 (12:38→21:10)
[2019-02-11 20:45] VITALS: BP 140/79
[2019-02-11] MEDS: LORATADINE 10 MG TABLET GT SCH (21:07)
[2019-02-11] MEDS: PRAVASTATIN SODIUM 20 MG TABLET GT SCH (21:07)
[2019-02-11] MEDS: BENAZEPRIL HCL 5 MG TABLET GT SCH (21:07)
[2019-02-11] MEDS: LATANOPROST EYE DROP 0.005% 2.5 ML BOTTLE EACHEYE SCH (21:07)
[2019-02-12] MEDS: JEVITY 1.2 CAL 1,000 ML BOTTLE GT PRN (01:27)
[2019-02-12] MEDS: IPRATROPIUM NEB FS 0.5 MG/2.5 ML AMPUL.NEB NEB SCH ×4 (01:30→19:40)
[2019-02-12] MEDS: CHLORHEXIDINE GLUCONATE 15 ML UDC MM SCH ×2 (06:07→17:32)
[2019-02-12 07:29] VITALS: BP 133/92
[2019-02-12] MEDS: CHOLECALCIFEROL (VITAMIN D 3) 400 UNIT TABLET GT SCH ×2 (08:48→21:27)
[2019-02-12] MEDS: RIFAXIMIN 550 MG TABLET GT SCH ×2 (08:48→17:32)
[2019-02-12] MEDS: POTASSIUM CHLORIDE GT SCH (08:48)
[2019-02-12] MEDS: VITAMINS A AND D 56.7 GM TUBE TP SCH ×2 (08:48→21:28)
[2019-02-12] MEDS: BIOTIN 5000 MCG GT SCH (08:48)
[2019-02-12] MEDS: DICLOFENAC TOPICAL 100 GM GEL..GM. TP SCH ×2 (08:48→17:32)
[2019-02-12] MEDS: FINASTERIDE (5 MG) 5 MG TABLET GT SCH (08:48)
[2019-02-12] MEDS: VITS A AND D/WHITE PET/LANOLIN 5 GM PACKET TP SCH ×4 (08:48→21:28)
[2019-02-12] MEDS: HYDROGEN PEROXIDE 480 ML BOTTLE TP SCH ×2 (09:00→21:00)
[2019-02-12] MEDS: PRUNE JUICE GT SCH (11:00)
[2019-02-12] MEDS: [UNRECOGNIZED DRUG - OTHER] TP SCH ×2 (13:00→21:27)
[2019-02-12 20:02] VITALS: BP 137/74
[2019-02-12] MEDS: LATANOPROST EYE DROP 0.005% 2.5 ML BOTTLE EACHEYE SCH (21:28)
[2019-02-12] MEDS: LORATADINE 10 MG TABLET GT SCH (21:29)
[2019-02-12] MEDS: BENAZEPRIL HCL 5 MG TABLET GT SCH (21:30)
[2019-02-12] MEDS: PRAVASTATIN SODIUM 20 MG TABLET GT SCH (21:30)
[2019-02-13] MEDS: JEVITY 1.2 CAL 1,000 ML BOTTLE GT PRN ×2 (00:50→22:44)
[2019-02-13] MEDS: IPRATROPIUM NEB FS 0.5 MG/2.5 ML AMPUL.NEB NEB SCH ×4 (01:06→19:38)
[2019-02-13] MEDS: CHLORHEXIDINE GLUCONATE 15 ML UDC MM SCH ×2 (05:37→17:32)
[2019-02-13 07:32] VITALS: BP 132/85
[2019-02-13] MEDS: VITAMINS A AND D 56.7 GM TUBE TP SCH ×2 (08:39→20:02)
[2019-02-13] MEDS: CHOLECALCIFEROL (VITAMIN D 3) 400 UNIT TABLET GT SCH ×2 (08:39→20:02)
[2019-02-13] MEDS: POTASSIUM CHLORIDE GT SCH (08:39)
[2019-02-13] MEDS: VITS A AND D/WHITE PET/LANOLIN 5 GM PACKET TP SCH ×4 (08:39→20:02)
[2019-02-13] MEDS: FINASTERIDE (5 MG) 5 MG TABLET GT SCH (08:39)
[2019-02-13] MEDS: BIOTIN 5000 MCG GT SCH (08:39)
[2019-02-13] MEDS: DICLOFENAC TOPICAL 100 GM GEL..GM. TP SCH ×2 (08:39→17:32)
[2019-02-13] MEDS: RIFAXIMIN 550 MG TABLET GT SCH ×2 (08:39→17:32)
[2019-02-13] MEDS: HYDROGEN PEROXIDE 480 ML BOTTLE TP SCH ×2 (09:00→19:39)
[2019-02-13] MEDS: PRUNE JUICE GT SCH (11:00)
[2019-02-13] MEDS: [UNRECOGNIZED DRUG - OTHER] TP SCH ×2 (12:06→20:02)
[2019-02-13] MEDS: HYDROCODONE/APAP 7.5/325MG 1 EACH TABLET GT PRN (15:35)
[2019-02-13 20:16] VITALS: BP 142/76
[2019-02-13] MEDS: LATANOPROST EYE DROP 0.005% 2.5 ML BOTTLE EACHEYE SCH (21:18)
[2019-02-13] MEDS: LORATADINE 10 MG TABLET GT SCH (21:18)
[2019-02-13] MEDS: BENAZEPRIL HCL 5 MG TABLET GT SCH (21:19)
[2019-02-13] MEDS: PRAVASTATIN SODIUM 20 MG TABLET GT SCH (21:19)
[2019-02-14] MEDS: IPRATROPIUM NEB FS 0.5 MG/2.5 ML AMPUL.NEB NEB SCH ×4 (00:58→19:46)
--- NOTE | 2019-02-14 04:38 | NUR ---
PATIENT RECEIVED ON RA THEN PLACED BACK ON 28% AEROSOL T-COLLAR. SUCTIONED FOR MINIMAL, THIN, YELLOW SECRETIONS. GIVEN IN-LINE TREATMENTS WITH NO ADVERSE REACTIONS. AMBU BAG AT BEDSIDE. Addendum: 02/14/19 at 0442 by MINOO CRORIGAN RT Amended: Links added.
[2019-02-14] MEDS: CHLORHEXIDINE GLUCONATE 15 ML UDC MM SCH ×2 (05:52→16:51)
[2019-02-14] MEDS: HYDROGEN PEROXIDE 480 ML BOTTLE TP SCH ×2 (06:57→19:46)
[2019-02-14 07:46] VITALS: BP 132/82
[2019-02-14] MEDS: BIOTIN 5000 MCG GT SCH (08:41)
[2019-02-14] MEDS: POTASSIUM CHLORIDE GT SCH (08:41)
[2019-02-14] MEDS: CHOLECALCIFEROL (VITAMIN D 3) 400 UNIT TABLET GT SCH ×2 (08:42→20:15)
[2019-02-14] MEDS: FINASTERIDE (5 MG) 5 MG TABLET GT SCH (08:42)
[2019-02-14] MEDS: RIFAXIMIN 550 MG TABLET GT SCH ×2 (08:43→16:51)
[2019-02-14] MEDS: VITAMINS A AND D 56.7 GM TUBE TP SCH ×2 (08:43→20:19)
[2019-02-14] MEDS: VITS A AND D/WHITE PET/LANOLIN 5 GM PACKET TP SCH ×4 (08:43→20:19)
[2019-02-14] MEDS: DICLOFENAC TOPICAL 100 GM GEL..GM. TP SCH ×2 (08:43→16:51)
--- NOTE | 2019-02-14 09:00 | NUR ---
Seen and examined by Dr. Mejia, no new order given.
[2019-02-14] MEDS: PRUNE JUICE GT SCH (11:48)
[2019-02-14] MEDS: [UNRECOGNIZED DRUG - OTHER] TP SCH ×2 (12:17→20:19)
[2019-02-14] MEDS: JEVITY 1.2 CAL 1,000 ML BOTTLE GT PRN (16:52)
[2019-02-14 20:59] VITALS: BP 142/81
[2019-02-14 21:01] VITALS: BP 142/81
[2019-02-14] MEDS: LATANOPROST EYE DROP 0.005% 2.5 ML BOTTLE EACHEYE SCH (21:17)
[2019-02-14] MEDS: PRAVASTATIN SODIUM 20 MG TABLET GT SCH (21:18)
[2019-02-14] MEDS: LORATADINE 10 MG TABLET GT SCH (21:18)
[2019-02-14] MEDS: BENAZEPRIL HCL 5 MG TABLET GT SCH (21:18)
[2019-02-14] MEDS: HYDROCODONE/APAP 7.5/325MG 1 EACH TABLET GT PRN (22:55)
[2019-02-15] MEDS: IPRATROPIUM NEB FS 0.5 MG/2.5 ML AMPUL.NEB NEB SCH ×4 (01:37→19:44)
[2019-02-15] MEDS: CHLORHEXIDINE GLUCONATE 15 ML UDC MM SCH ×2 (06:01→18:11)
[2019-02-15 07:58] VITALS: BP 127/75
[2019-02-15] MEDS: CHOLECALCIFEROL (VITAMIN D 3) 400 UNIT TABLET GT SCH ×2 (08:18→20:22)
[2019-02-15] MEDS: VITAMINS A AND D 56.7 GM TUBE TP SCH ×2 (08:18→20:23)
[2019-02-15] MEDS: VITS A AND D/WHITE PET/LANOLIN 5 GM PACKET TP SCH ×4 (08:18→20:23)
[2019-02-15] MEDS: BIOTIN 5000 MCG GT SCH (08:18)
[2019-02-15] MEDS: FINASTERIDE (5 MG) 5 MG TABLET GT SCH (08:18)
[2019-02-15] MEDS: POTASSIUM CHLORIDE GT SCH (08:18)
[2019-02-15] MEDS: RIFAXIMIN 550 MG TABLET GT SCH ×2 (08:18→16:56)
[2019-02-15] MEDS: DICLOFENAC TOPICAL 100 GM GEL..GM. TP SCH ×2 (08:19→16:57)
[2019-02-15] MEDS: HYDROGEN PEROXIDE 480 ML BOTTLE TP SCH ×2 (08:46→21:59)
[2019-02-15] MEDS: PRUNE JUICE GT SCH (11:00)
[2019-02-15] MEDS: [UNRECOGNIZED DRUG - OTHER] TP SCH ×2 (12:45→20:23)
[2019-02-15] MEDS: JEVITY 1.2 CAL 1,000 ML BOTTLE GT PRN (16:56)
--- NOTE | 2019-02-15 18:31 | NUR ---
11am prune juice held per family request
[2019-02-15 20:45] VITALS: BP 135/84
[2019-02-15] MEDS: PRAVASTATIN SODIUM 20 MG TABLET GT SCH (22:18)
[2019-02-15] MEDS: BENAZEPRIL HCL 5 MG TABLET GT SCH (22:18)
[2019-02-15] MEDS: LATANOPROST EYE DROP 0.005% 2.5 ML BOTTLE EACHEYE SCH (22:18)
[2019-02-15] MEDS: LORATADINE 10 MG TABLET GT SCH (22:18)
[2019-02-16] MEDS: IPRATROPIUM NEB FS 0.5 MG/2.5 ML AMPUL.NEB NEB SCH ×4 (01:51→19:58)
[2019-02-16] MEDS: CHLORHEXIDINE GLUCONATE 15 ML UDC MM SCH ×2 (05:43→18:02)
[2019-02-16 07:37] VITALS: BP 131/78
[2019-02-16] MEDS: HYDROGEN PEROXIDE 480 ML BOTTLE TP SCH ×2 (09:00→21:00)
[2019-02-16] MEDS: FINASTERIDE (5 MG) 5 MG TABLET GT SCH (09:23)
[2019-02-16] MEDS: CHOLECALCIFEROL (VITAMIN D 3) 400 UNIT TABLET GT SCH ×2 (09:23→21:44)
[2019-02-16] MEDS: BIOTIN 5000 MCG GT SCH (09:23)
[2019-02-16] MEDS: POTASSIUM CHLORIDE GT SCH (09:23)
[2019-02-16] MEDS: VITAMINS A AND D 56.7 GM TUBE TP SCH ×2 (09:24→21:44)
[2019-02-16] MEDS: RIFAXIMIN 550 MG TABLET GT SCH ×2 (09:24→17:00)
[2019-02-16] MEDS: VITS A AND D/WHITE PET/LANOLIN 5 GM PACKET TP SCH ×4 (09:24→21:44)
[2019-02-16] MEDS: DICLOFENAC TOPICAL 100 GM GEL..GM. TP SCH ×2 (09:24→17:00)
[2019-02-16] MEDS: PRUNE JUICE GT SCH (11:00)
[2019-02-16] MEDS: [UNRECOGNIZED DRUG - OTHER] TP SCH ×2 (12:38→21:44)
[2019-02-16] MEDS: JEVITY 1.2 CAL 1,000 ML BOTTLE GT PRN (12:40)
[2019-02-16] MEDS: MAGNESIUM HYDROXIDE 30 ML UDC GT PRN (18:50)
[2019-02-16 20:45] VITALS: BP 131/62
[2019-02-16] MEDS: LATANOPROST EYE DROP 0.005% 2.5 ML BOTTLE EACHEYE SCH (21:44)
[2019-02-16] MEDS: LORATADINE 10 MG TABLET GT SCH (21:44)
[2019-02-16] MEDS: BENAZEPRIL HCL 5 MG TABLET GT SCH (21:45)
[2019-02-16] MEDS: PRAVASTATIN SODIUM 20 MG TABLET GT SCH (21:45)
[2019-02-16] MEDS: GLYCOPYRROLATE 1 MG TABLET GT PRN (22:59)
[2019-02-17] MEDS: IPRATROPIUM NEB FS 0.5 MG/2.5 ML AMPUL.NEB NEB SCH ×4 (01:27→19:10)
[2019-02-17] MEDS: CHLORHEXIDINE GLUCONATE 15 ML UDC MM SCH ×2 (05:26→18:05)
[2019-02-17] MEDS: JEVITY 1.2 CAL 1,000 ML BOTTLE GT PRN (05:52)
[2019-02-17 07:43] VITALS: BP 138/73
[2019-02-17] MEDS: HYDROGEN PEROXIDE 480 ML BOTTLE TP SCH ×2 (09:00→21:00)
[2019-02-17] MEDS: CHOLECALCIFEROL (VITAMIN D 3) 400 UNIT TABLET GT SCH ×2 (09:19→21:35)
[2019-02-17] MEDS: RIFAXIMIN 550 MG TABLET GT SCH ×2 (09:19→17:00)
[2019-02-17] MEDS: POTASSIUM CHLORIDE GT SCH (09:19)
[2019-02-17] MEDS: BIOTIN 5000 MCG GT SCH (09:19)
[2019-02-17] MEDS: VITS A AND D/WHITE PET/LANOLIN 5 GM PACKET TP SCH ×4 (09:19→21:35)
[2019-02-17] MEDS: FINASTERIDE (5 MG) 5 MG TABLET GT SCH (09:19)
[2019-02-17] MEDS: DICLOFENAC TOPICAL 100 GM GEL..GM. TP SCH ×2 (09:20→17:00)
[2019-02-17] MEDS: VITAMINS A AND D 56.7 GM TUBE TP SCH ×2 (09:20→21:35)
[2019-02-17] MEDS: PRUNE JUICE GT SCH (11:35)
[2019-02-17] MEDS: [UNRECOGNIZED DRUG - OTHER] TP SCH ×2 (13:00→21:35)
--- NOTE | 2019-02-17 14:41 | NUR ---
Patients , Asha Lopez [phone] informed SW that the patient has a [facility] and would like to know if SW needs copy of it. SW informed lower in supervisor, Victoria. Victoria stated that she is aware and already has new insurance information for patient. SW updated patients responsible democrat that no further documents are needed regarding new insurance. SKIP used the time to build rapport with Asha. SKIP educated Asha about SW role and that SW is available to support Asha with short term counseling, facilitating conversations with other staff, monthly support group, and connecting patient with additional resources as needed. Asha expressed being content that SW is here to support patients rehabilitation and shared patient's health background with SW. SKIP thanked Asha for sharing the patient's journey with SKIP.SKIP will be available to support Asha and pt. as needed.
[2019-02-17] MEDS: GLYCOPYRROLATE 1 MG TABLET GT PRN (21:30)
[2019-02-17] MEDS: LORATADINE 10 MG TABLET GT SCH (21:35)
[2019-02-17] MEDS: LATANOPROST EYE DROP 0.005% 2.5 ML BOTTLE EACHEYE SCH (21:35)
[2019-02-17] MEDS: PRAVASTATIN SODIUM 20 MG TABLET GT SCH (21:38)
[2019-02-17] MEDS: BENAZEPRIL HCL 5 MG TABLET GT SCH (21:38)
[2019-02-17 21:52] VITALS: BP 127/71
[2019-02-18] MEDS: IPRATROPIUM NEB FS 0.5 MG/2.5 ML AMPUL.NEB NEB SCH ×4 (01:22→19:11)
[2019-02-18] MEDS: CHLORHEXIDINE GLUCONATE 15 ML UDC MM SCH ×2 (06:21→18:23)
[2019-02-18] MEDS: HYDROCODONE/APAP 7.5/325MG 1 EACH TABLET GT PRN (06:22)
[2019-02-18] MEDS: JEVITY 1.2 CAL 1,000 ML BOTTLE GT PRN (06:22)
[2019-02-18 07:44] VITALS: BP 132/73
[2019-02-18] MEDS: FINASTERIDE (5 MG) 5 MG TABLET GT SCH (08:52)
[2019-02-18] MEDS: POTASSIUM CHLORIDE GT SCH (08:52)
[2019-02-18] MEDS: CHOLECALCIFEROL (VITAMIN D 3) 400 UNIT TABLET GT SCH ×2 (08:52→20:43)
[2019-02-18] MEDS: BIOTIN 5000 MCG GT SCH (08:52)
[2019-02-18] MEDS: RIFAXIMIN 550 MG TABLET GT SCH ×2 (08:52→16:42)
[2019-02-18] MEDS: DICLOFENAC TOPICAL 100 GM GEL..GM. TP SCH ×2 (08:53→16:43)
[2019-02-18] MEDS: VITAMINS A AND D 56.7 GM TUBE TP SCH ×2 (08:53→20:44)
[2019-02-18] MEDS: VITS A AND D/WHITE PET/LANOLIN 5 GM PACKET TP SCH ×4 (08:53→20:44)
[2019-02-18] MEDS: HYDROGEN PEROXIDE 480 ML BOTTLE TP SCH ×2 (09:00→20:44)
[2019-02-18] MEDS: PRUNE JUICE GT SCH (11:00)
--- NOTE | 2019-02-18 12:39 | NUR ---
refused the prune juice to be give to the patient, explained risks and benefits x3 but still refused, charge nurse made aware, will inform , resident on stable condition
[2019-02-18] MEDS: [UNRECOGNIZED DRUG - OTHER] TP SCH ×2 (13:00→20:44)
[2019-02-18 21:09] VITALS: BP 141/85
[2019-02-18] MEDS: LATANOPROST EYE DROP 0.005% 2.5 ML BOTTLE EACHEYE SCH (21:33)
[2019-02-18] MEDS: LORATADINE 10 MG TABLET GT SCH (21:33)
[2019-02-18] MEDS: PRAVASTATIN SODIUM 20 MG TABLET GT SCH (21:34)
[2019-02-18] MEDS: BENAZEPRIL HCL 5 MG TABLET GT SCH (21:34)
[2019-02-19] MEDS: IPRATROPIUM NEB FS 0.5 MG/2.5 ML AMPUL.NEB NEB SCH ×4 (01:35→19:56)
[2019-02-19] MEDS: CHLORHEXIDINE GLUCONATE 15 ML UDC MM SCH ×2 (05:06→18:53)
[2019-02-19] MEDS: HYDROGEN PEROXIDE 480 ML BOTTLE TP SCH ×2 (07:31→19:56)
[2019-02-19 07:44] VITALS: BP 132/63
[2019-02-19] MEDS: POTASSIUM CHLORIDE GT SCH (08:41)
[2019-02-19] MEDS: RIFAXIMIN 550 MG TABLET GT SCH ×2 (08:41→16:58)
[2019-02-19] MEDS: FINASTERIDE (5 MG) 5 MG TABLET GT SCH (08:41)
[2019-02-19] MEDS: BIOTIN 5000 MCG GT SCH (08:41)
[2019-02-19] MEDS: CHOLECALCIFEROL (VITAMIN D 3) 400 UNIT TABLET GT SCH ×2 (08:50→21:27)
[2019-02-19] MEDS: VITS A AND D/WHITE PET/LANOLIN 5 GM PACKET TP SCH ×4 (09:00→21:28)
[2019-02-19] MEDS: VITAMINS A AND D 56.7 GM TUBE TP SCH ×2 (09:00→21:28)
[2019-02-19] MEDS: DICLOFENAC TOPICAL 100 GM GEL..GM. TP SCH ×2 (09:00→16:58)
[2019-02-19] MEDS: HYDROCODONE/APAP 7.5/325MG 1 EACH TABLET GT PRN (09:42)
[2019-02-19] MEDS: PRUNE JUICE GT SCH (11:00)
[2019-02-19] MEDS: [UNRECOGNIZED DRUG - OTHER] TP SCH ×2 (12:57→21:28)
--- NOTE | 2019-02-19 15:48 | NUR ---
RT NOTE: RECEIVED PT ON 28% COOL AEROSOL. NO RESPIRATORY DISTRESS NOTED. TRACH CHECKED SECURE AND PATENT. SXD AND LAVAGED PT Q ROUND AND NEEDED. TXS GIVEN ORDERED WITH NO ADVERSE REACTIONS NOTED. TRACH CARE DONE. SPARE TRACH AND AMBU BAG @ BEDSIDE. ALARMS CHECKED.
--- NOTE | 2019-02-19 15:49 | NUR ---
RT NOTE: RECEIVED PT ON ORDERED NOTED VENT SETTINGS. NO RESPIRATORY DISTRESS NOTED. TRACH CHECKED SECURE AND PATENT. SXD AND LAVAGED PT Q ROUND AND NEEDED. TXS GIVEN ORDERED WITH NO ADVERSE REACTIONS NOTED. TRACH CARE DONE. ROMERO RICHARDSON AND YENNY MARTINES @ BEDSIDE. Addendum: 02/19/19 at 1549 by IJEOMA MOORE RT Amended: Links added.
[2019-02-19] MEDS: JEVITY 1.2 CAL 1,000 ML BOTTLE GT PRN (18:53)
[2019-02-19 20:48] VITALS: BP 142/87
[2019-02-19] MEDS: LORATADINE 10 MG TABLET GT SCH (21:28)
[2019-02-19] MEDS: PRAVASTATIN SODIUM 20 MG TABLET GT SCH (21:28)
[2019-02-19] MEDS: LATANOPROST EYE DROP 0.005% 2.5 ML BOTTLE EACHEYE SCH (21:28)
[2019-02-19] MEDS: BENAZEPRIL HCL 5 MG TABLET GT SCH (21:28)
[2019-02-20] MEDS: IPRATROPIUM NEB FS 0.5 MG/2.5 ML AMPUL.NEB NEB SCH ×4 (01:56→19:31)
[2019-02-20] MEDS: CHLORHEXIDINE GLUCONATE 15 ML UDC MM SCH ×2 (05:51→17:00)
[2019-02-20 07:39] VITALS: BP 132/74
[2019-02-20] MEDS: HYDROGEN PEROXIDE 480 ML BOTTLE TP SCH ×2 (08:03→21:16)
[2019-02-20] MEDS: DICLOFENAC TOPICAL 100 GM GEL..GM. TP SCH ×2 (09:03→16:54)
[2019-02-20] MEDS: CHOLECALCIFEROL (VITAMIN D 3) 400 UNIT TABLET GT SCH ×2 (09:03→21:16)
[2019-02-20] MEDS: VITS A AND D/WHITE PET/LANOLIN 5 GM PACKET TP SCH ×4 (09:03→21:17)
[2019-02-20] MEDS: VITAMINS A AND D 56.7 GM TUBE TP SCH ×2 (09:03→21:17)
[2019-02-20] MEDS: FINASTERIDE (5 MG) 5 MG TABLET GT SCH (09:03)
[2019-02-20] MEDS: POTASSIUM CHLORIDE GT SCH (09:03)
[2019-02-20] MEDS: RIFAXIMIN 550 MG TABLET GT SCH ×2 (09:03→16:53)
[2019-02-20] MEDS: BIOTIN 5000 MCG GT SCH (09:03)
[2019-02-20] MEDS: HYDROCODONE/APAP 7.5/325MG 1 EACH TABLET GT PRN ×2 (09:04→17:01)
[2019-02-20] MEDS: PRUNE JUICE GT SCH (11:00)
[2019-02-20] MEDS: [UNRECOGNIZED DRUG - OTHER] TP SCH ×2 (12:08→21:17)
[2019-02-20] MEDS: MAGNESIUM HYDROXIDE 30 ML UDC GT PRN (17:39)
[2019-02-20 20:44] VITALS: BP 133/81
[2019-02-20] MEDS: PRAVASTATIN SODIUM 20 MG TABLET GT SCH (21:17)
[2019-02-20] MEDS: LORATADINE 10 MG TABLET GT SCH (21:17)
[2019-02-20] MEDS: LATANOPROST EYE DROP 0.005% 2.5 ML BOTTLE EACHEYE SCH (21:17)
[2019-02-20] MEDS: BENAZEPRIL HCL 5 MG TABLET GT SCH (21:17)
[2019-02-21] MEDS: IPRATROPIUM NEB FS 0.5 MG/2.5 ML AMPUL.NEB NEB SCH ×4 (00:33→19:33)
[2019-02-21] MEDS: CHLORHEXIDINE GLUCONATE 15 ML UDC MM SCH ×2 (05:43→17:16)
[2019-02-21 07:41] VITALS: BP 124/76
[2019-02-21] MEDS: VITS A AND D/WHITE PET/LANOLIN 5 GM PACKET TP SCH ×4 (08:51→21:12)
[2019-02-21] MEDS: CHOLECALCIFEROL (VITAMIN D 3) 400 UNIT TABLET GT SCH ×2 (08:51→21:12)
[2019-02-21] MEDS: POTASSIUM CHLORIDE GT SCH (08:51)
[2019-02-21] MEDS: RIFAXIMIN 550 MG TABLET GT SCH ×2 (08:51→17:15)
[2019-02-21] MEDS: BIOTIN 5000 MCG GT SCH (08:51)
[2019-02-21] MEDS: FINASTERIDE (5 MG) 5 MG TABLET GT SCH (08:51)
[2019-02-21] MEDS: DICLOFENAC TOPICAL 100 GM GEL..GM. TP SCH ×2 (08:52→17:15)
[2019-02-21] MEDS: VITAMINS A AND D 56.7 GM TUBE TP SCH ×2 (08:52→21:12)
[2019-02-21] MEDS: HYDROGEN PEROXIDE 480 ML BOTTLE TP SCH ×2 (09:52→21:12)
[2019-02-21] MEDS: PRUNE JUICE GT SCH (11:41)
[2019-02-21] MEDS: [UNRECOGNIZED DRUG - OTHER] TP SCH ×2 (13:04→21:12)
--- NOTE | 2019-02-21 15:35 | NUR ---
11: 20 am--SKIP contacted patients responsible constitution party, - Asha Lopez [phone] to invite her to attend IDT meeting being held this Sunday, February 24, 2019 at 12:30-1:30pm. SKIP was not able to reach Asha but left a voicemail with call back number. SKIP will continue attempts to reach Asha. 3:30 pmSW attempted to get in contact with Asha Lopez [phone] with no success. SKIP left Asha a voicemail detailing the IDT meeting time and location.
[2019-02-21] MEDS: LATANOPROST EYE DROP 0.005% 2.5 ML BOTTLE EACHEYE SCH (21:12)
[2019-02-21] MEDS: BENAZEPRIL HCL 5 MG TABLET GT SCH (21:12)
[2019-02-21] MEDS: LORATADINE 10 MG TABLET GT SCH (21:12)
[2019-02-21] MEDS: PRAVASTATIN SODIUM 20 MG TABLET GT SCH (21:13)
[2019-02-22] MEDS: IPRATROPIUM NEB FS 0.5 MG/2.5 ML AMPUL.NEB NEB SCH ×4 (01:30→19:57)
[2019-02-22 04:46] VITALS: BP 127/64
[2019-02-22] MEDS: CHLORHEXIDINE GLUCONATE 15 ML UDC MM SCH ×2 (05:42→18:00)
[2019-02-22 07:40] VITALS: BP 119/68
[2019-02-22] MEDS: BIOTIN 5000 MCG GT SCH (08:01)
[2019-02-22] MEDS: FINASTERIDE (5 MG) 5 MG TABLET GT SCH (08:01)
[2019-02-22] MEDS: CHOLECALCIFEROL (VITAMIN D 3) 400 UNIT TABLET GT SCH ×2 (08:01→21:16)
[2019-02-22] MEDS: POTASSIUM CHLORIDE GT SCH (08:01)
[2019-02-22] MEDS: DICLOFENAC TOPICAL 100 GM GEL..GM. TP SCH ×2 (08:01→16:46)
[2019-02-22] MEDS: RIFAXIMIN 550 MG TABLET GT SCH ×2 (08:01→16:46)
[2019-02-22] MEDS: VITS A AND D/WHITE PET/LANOLIN 5 GM PACKET TP SCH ×4 (09:00→21:16)
[2019-02-22] MEDS: HYDROGEN PEROXIDE 480 ML BOTTLE TP SCH ×2 (09:00→19:57)
[2019-02-22] MEDS: VITAMINS A AND D 56.7 GM TUBE TP SCH ×2 (09:00→21:16)
[2019-02-22] MEDS: PRUNE JUICE GT SCH (11:00)
[2019-02-22] MEDS: [UNRECOGNIZED DRUG - OTHER] TP SCH ×2 (12:59→21:16)
[2019-02-22 20:22] VITALS: BP 129/75
[2019-02-22] MEDS: LATANOPROST EYE DROP 0.005% 2.5 ML BOTTLE EACHEYE SCH (21:16)
[2019-02-22] MEDS: LORATADINE 10 MG TABLET GT SCH (21:16)
[2019-02-22] MEDS: BENAZEPRIL HCL 5 MG TABLET GT SCH (21:17)
[2019-02-22] MEDS: PRAVASTATIN SODIUM 20 MG TABLET GT SCH (21:17)
[2019-02-22] MEDS: JEVITY 1.2 CAL 1,000 ML BOTTLE GT PRN (22:30)
[2019-02-23] MEDS: IPRATROPIUM NEB FS 0.5 MG/2.5 ML AMPUL.NEB NEB SCH ×4 (01:48→19:30)
[2019-02-23] MEDS: CHLORHEXIDINE GLUCONATE 15 ML UDC MM SCH ×2 (06:00→18:35)
[2019-02-23 07:34] VITALS: BP 114/73
[2019-02-23] MEDS: BIOTIN 5000 MCG GT SCH (08:09)
[2019-02-23] MEDS: POTASSIUM CHLORIDE GT SCH (08:09)
[2019-02-23] MEDS: FINASTERIDE (5 MG) 5 MG TABLET GT SCH (08:09)
[2019-02-23] MEDS: CHOLECALCIFEROL (VITAMIN D 3) 400 UNIT TABLET GT SCH ×2 (08:09→20:56)
[2019-02-23] MEDS: VITS A AND D/WHITE PET/LANOLIN 5 GM PACKET TP SCH ×4 (08:09→20:56)
[2019-02-23] MEDS: RIFAXIMIN 550 MG TABLET GT SCH ×2 (08:09→16:50)
[2019-02-23] MEDS: VITAMINS A AND D 56.7 GM TUBE TP SCH ×2 (08:10→20:56)
[2019-02-23] MEDS: DICLOFENAC TOPICAL 100 GM GEL..GM. TP SCH ×2 (08:10→16:50)
[2019-02-23] MEDS: HYDROGEN PEROXIDE 480 ML BOTTLE TP SCH ×2 (09:43→21:00)
--- NOTE | 2019-02-23 11:45 | NUR ---
Seen by Dr Edwards. He said pt's requested not to give prune juice anymore. Dr Edwards ordered to DC prune juice.
[2019-02-23] MEDS: [UNRECOGNIZED DRUG - OTHER] TP SCH ×2 (13:58→20:56)
[2019-02-23 15:38] LABS: ALANINE AMINOTRANSFERASE 26 U/L (12-78); ALBUMIN 3.2 g/dL (3.4-5.0); ALKALINE PHOSPHATASE 101 U/L (46-116); ASPARTATE AMINOTRANSFERASE 26 U/L (15-37); BILIRUBIN,TOTAL 0.8 mg/dL (0.2-1.0); CALCIUM, SERUM 9.1 mg/dL (8.5-10.1); CARBON DIOXIDE 26 mmol/L (21-32); CHLORIDE 101 mmol/L (98-107); CREATININE 0.8 mg/dL (0.6-1.3); GLUCOSE 91 mg/dL (74-106); POTASSIUM 4.1 mmol/L (3.5-5.1); SODIUM SERUM 137 mmol/L (136-145); TOTAL PROTEIN, SERUM 7.2 g/dL (6.4-8.2); UREA NITROGEN, BLOOD 17 mg/dL (7-18)
[2019-02-23] MEDS: LORATADINE 10 MG TABLET GT SCH (21:32)
[2019-02-23] MEDS: LATANOPROST EYE DROP 0.005% 2.5 ML BOTTLE EACHEYE SCH (21:32)
[2019-02-23] MEDS: BENAZEPRIL HCL 5 MG TABLET GT SCH (21:33)
[2019-02-23] MEDS: PRAVASTATIN SODIUM 20 MG TABLET GT SCH (21:33)
--- NOTE | 2019-02-23 21:40 | NUR ---
Seen and examined by ISABELA Pichrado no new orders.
[2019-02-23] MEDS: JEVITY 1.2 CAL 1,000 ML BOTTLE GT PRN (23:26)
[2019-02-23] MEDS: HYDROCODONE/APAP 7.5/325MG 1 EACH TABLET GT PRN (23:29)
[2019-02-24] MEDS: IPRATROPIUM NEB FS 0.5 MG/2.5 ML AMPUL.NEB NEB SCH ×4 (01:51→19:27)
[2019-02-24 02:53] VITALS: BP 127/79
[2019-02-24] MEDS: CHLORHEXIDINE GLUCONATE 15 ML UDC MM SCH ×2 (05:39→17:35)
[2019-02-24 06:13] LABS: EOSINOPHILS % (AUTO) 4.7 % (0.0-6.0); HEMATOCRIT 42 % (39-51); HEMOGLOBIN 14.6 g/dL (13.5-17.5); LYMPHOCYTES # (AUTO) 1.3 /CMM (0.8-4.8); LYMPHOCYTES % (AUTO) 33.3 % (20.0-44.0); MEAN CORPUSCULAR HGB CONC 35 g/dl (31.0-36.0); MEAN CORPUSCULAR VOLUME 96 fL (80-96); MONOCYTES # (AUTO) 0.4 /CMM (0.1-1.30); MONOCYTES % (AUTO) 9.4 % (2.0-12.0); NEUTROPHILS # (AUTO) 1.9 /CMM (1.8-8.9); NEUTROPHILS % (AUTO) 51.6 % (43.0-81.0); PLATELET COUNT (AUTO) 89 /CMM (150-450); RED BLOOD CELL COUNT(AUTO) 4.38 MIL/uL (4.5-6.0); WHITE BLOOD COUNT (AUTO) 3.8 K/uL (4.3-11.0)
[2019-02-24 06:28] LABS: THYROID STIMULATING HORMONE 4.691 uIU/mL (0.358-3.74)
[2019-02-24 08:01] VITALS: BP 116/62
--- NOTE | 2019-02-24 08:31 | NUR ---
Seen and examined by Dr. Edwards, NNO given.
[2019-02-24] MEDS: FINASTERIDE (5 MG) 5 MG TABLET GT SCH (08:49)
[2019-02-24] MEDS: RIFAXIMIN 550 MG TABLET GT SCH ×2 (08:49→17:35)
[2019-02-24] MEDS: POTASSIUM CHLORIDE GT SCH (08:49)
[2019-02-24] MEDS: VITS A AND D/WHITE PET/LANOLIN 5 GM PACKET TP SCH ×4 (08:49→21:13)
[2019-02-24] MEDS: CHOLECALCIFEROL (VITAMIN D 3) 400 UNIT TABLET GT SCH ×2 (08:49→21:13)
[2019-02-24] MEDS: VITAMINS A AND D 56.7 GM TUBE TP SCH ×2 (08:49→21:13)
[2019-02-24] MEDS: DICLOFENAC TOPICAL 100 GM GEL..GM. TP SCH ×2 (08:49→17:35)
[2019-02-24] MEDS: BIOTIN 5000 MCG GT SCH (08:49)
[2019-02-24 09:48] LABS: EOSINOPHILS % (MANUAL) 6 % (0-4); LYMPHOCYTES % (MANUAL) 32 % (16-48); MONOCYTES % (MANUAL) 8 % (0-11.0); NEUTROPHILS % (MANUAL) 54 (42-76)
[2019-02-24] MEDS: HYDROGEN PEROXIDE 480 ML BOTTLE TP SCH ×2 (10:01→20:29)
[2019-02-24] MEDS: [UNRECOGNIZED DRUG - OTHER] TP SCH ×2 (12:20→21:13)
[2019-02-24] MEDS: SUMATRIPTAN SUCCINATE 25 MG TABLET GT PRN (14:20)
--- NOTE | 2019-02-24 15:17 | NUR ---
INTERDISCIPLINARY PLAN OF CARE CONFERENCE was held today. The patients responsible libertarian/ Asha Lopez [phone] was not able to attend nor participate via phone conference. Dr. Mejia and interdisciplinary team discussed the current plan of care in detail. Current orders as well as treatments and medications were reviewed. No new orders. See other disciplines note for further details.
[2019-02-24] MEDS: JEVITY 1.2 CAL 1,000 ML BOTTLE GT PRN (21:00)
[2019-02-24 21:06] VITALS: BP 138/88
[2019-02-24] MEDS: LORATADINE 10 MG TABLET GT SCH (21:13)
[2019-02-24] MEDS: LATANOPROST EYE DROP 0.005% 2.5 ML BOTTLE EACHEYE SCH (21:13)
[2019-02-24] MEDS: PRAVASTATIN SODIUM 20 MG TABLET GT SCH (21:14)
[2019-02-24] MEDS: BENAZEPRIL HCL 5 MG TABLET GT SCH (21:14)
[2019-02-24] MEDS: GLYCOPYRROLATE 1 MG TABLET GT PRN (21:28)
[2019-02-25] MEDS: IPRATROPIUM NEB FS 0.5 MG/2.5 ML AMPUL.NEB NEB SCH ×4 (00:43→19:42)
[2019-02-25] MEDS: CHLORHEXIDINE GLUCONATE 15 ML UDC MM SCH ×2 (05:55→17:56)
[2019-02-25 08:18] VITALS: BP 118/74
[2019-02-25] MEDS: HYDROGEN PEROXIDE 480 ML BOTTLE TP SCH ×2 (09:03→21:34)
[2019-02-25] MEDS: FINASTERIDE (5 MG) 5 MG TABLET GT SCH (09:05)
[2019-02-25] MEDS: BIOTIN 5000 MCG GT SCH (09:05)
[2019-02-25] MEDS: CHOLECALCIFEROL (VITAMIN D 3) 400 UNIT TABLET GT SCH ×2 (09:05→21:34)
[2019-02-25] MEDS: VITS A AND D/WHITE PET/LANOLIN 5 GM PACKET TP SCH ×4 (09:05→21:34)
[2019-02-25] MEDS: RIFAXIMIN 550 MG TABLET GT SCH ×2 (09:05→17:56)
[2019-02-25] MEDS: DICLOFENAC TOPICAL 100 GM GEL..GM. TP SCH ×2 (09:05→17:56)
[2019-02-25] MEDS: POTASSIUM CHLORIDE GT SCH (09:05)
[2019-02-25] MEDS: VITAMINS A AND D 56.7 GM TUBE TP SCH ×2 (09:05→21:34)
[2019-02-25] MEDS: [UNRECOGNIZED DRUG - OTHER] TP SCH ×2 (12:32→21:34)
[2019-02-25] MEDS: JEVITY 1.2 CAL 1,000 ML BOTTLE GT PRN (18:24)
[2019-02-25 21:00] VITALS: BP 138/85
[2019-02-25] MEDS: LATANOPROST EYE DROP 0.005% 2.5 ML BOTTLE EACHEYE SCH (21:34)
[2019-02-25] MEDS: BENAZEPRIL HCL 5 MG TABLET GT SCH (21:34)
[2019-02-25] MEDS: LORATADINE 10 MG TABLET GT SCH (21:34)
[2019-02-25] MEDS: PRAVASTATIN SODIUM 20 MG TABLET GT SCH (21:35)
[2019-02-26] MEDS: HYDROCODONE/APAP 7.5/325MG 1 EACH TABLET GT PRN (00:08)
[2019-02-26] MEDS: IPRATROPIUM NEB FS 0.5 MG/2.5 ML AMPUL.NEB NEB SCH ×4 (00:34→19:39)
[2019-02-26] MEDS: CHLORHEXIDINE GLUCONATE 15 ML UDC MM SCH ×2 (05:44→17:28)
[2019-02-26 07:32] VITALS: BP 128/94
[2019-02-26] MEDS: HYDROGEN PEROXIDE 480 ML BOTTLE TP SCH ×2 (09:00→21:32)
[2019-02-26] MEDS: BIOTIN 5000 MCG GT SCH (09:39)
[2019-02-26] MEDS: VITS A AND D/WHITE PET/LANOLIN 5 GM PACKET TP SCH ×4 (09:39→20:21)
[2019-02-26] MEDS: CHOLECALCIFEROL (VITAMIN D 3) 400 UNIT TABLET GT SCH ×2 (09:39→20:23)
[2019-02-26] MEDS: POTASSIUM CHLORIDE GT SCH (09:39)
[2019-02-26] MEDS: RIFAXIMIN 550 MG TABLET GT SCH ×2 (09:39→17:28)
[2019-02-26] MEDS: FINASTERIDE (5 MG) 5 MG TABLET GT SCH (09:39)
[2019-02-26] MEDS: DICLOFENAC TOPICAL 100 GM GEL..GM. TP SCH ×2 (09:40→17:28)
[2019-02-26] MEDS: VITAMINS A AND D 56.7 GM TUBE TP SCH ×2 (09:40→20:21)
[2019-02-26] MEDS: [UNRECOGNIZED DRUG - OTHER] TP SCH ×2 (12:22→20:20)
[2019-02-26] MEDS: JEVITY 1.2 CAL 1,000 ML BOTTLE GT PRN (17:28)
[2019-02-26 20:48] VITALS: BP 134/88
[2019-02-26] MEDS: BENAZEPRIL HCL 5 MG TABLET GT SCH (21:04)
[2019-02-26] MEDS: PRAVASTATIN SODIUM 20 MG TABLET GT SCH (21:04)
[2019-02-26] MEDS: LORATADINE 10 MG TABLET GT SCH (22:38)
[2019-02-26] MEDS: LATANOPROST EYE DROP 0.005% 2.5 ML BOTTLE EACHEYE SCH (22:38)
[2019-02-27] MEDS: IPRATROPIUM NEB FS 0.5 MG/2.5 ML AMPUL.NEB NEB SCH ×4 (01:43→19:41)
[2019-02-27] MEDS: CHLORHEXIDINE GLUCONATE 15 ML UDC MM SCH ×2 (05:40→17:41)
[2019-02-27] MEDS: HYDROGEN PEROXIDE 480 ML BOTTLE TP SCH ×2 (09:00→21:43)
[2019-02-27] MEDS: POTASSIUM CHLORIDE GT SCH (09:48)
[2019-02-27] MEDS: CHOLECALCIFEROL (VITAMIN D 3) 400 UNIT TABLET GT SCH ×2 (09:48→22:03)
[2019-02-27] MEDS: VITS A AND D/WHITE PET/LANOLIN 5 GM PACKET TP SCH ×4 (09:48→21:43)
[2019-02-27] MEDS: BIOTIN 5000 MCG GT SCH (09:48)
[2019-02-27] MEDS: VITAMINS A AND D 56.7 GM TUBE TP SCH ×2 (09:48→21:43)
[2019-02-27] MEDS: DICLOFENAC TOPICAL 100 GM GEL..GM. TP SCH ×2 (09:48→17:41)
[2019-02-27] MEDS: FINASTERIDE (5 MG) 5 MG TABLET GT SCH (09:48)
[2019-02-27] MEDS: RIFAXIMIN 550 MG TABLET GT SCH ×2 (09:48→17:41)
[2019-02-27 11:29] VITALS: BP 116/67
[2019-02-27] MEDS: [UNRECOGNIZED DRUG - OTHER] TP SCH ×2 (12:48→21:43)
[2019-02-27] MEDS: JEVITY 1.2 CAL 1,000 ML BOTTLE GT PRN (15:00)
[2019-02-27 20:31] VITALS: BP 128/79
[2019-02-27] MEDS: LATANOPROST EYE DROP 0.005% 2.5 ML BOTTLE EACHEYE SCH (21:43)
[2019-02-27] MEDS: PRAVASTATIN SODIUM 20 MG TABLET GT SCH (21:44)
[2019-02-27] MEDS: BENAZEPRIL HCL 5 MG TABLET GT SCH (22:03)
[2019-02-27] MEDS: LORATADINE 10 MG TABLET GT SCH (22:03)
[2019-02-27] MEDS: HYDROCODONE/APAP 7.5/325MG 1 EACH TABLET GT PRN (22:14)
[2019-02-28] MEDS: IPRATROPIUM NEB FS 0.5 MG/2.5 ML AMPUL.NEB NEB SCH ×4 (01:45→19:45)
[2019-02-28] MEDS: CHLORHEXIDINE GLUCONATE 15 ML UDC MM SCH ×2 (05:24→18:12)
[2019-02-28] MEDS: DICLOFENAC TOPICAL 100 GM GEL..GM. TP SCH ×2 (09:00→16:41)
[2019-02-28] MEDS: HYDROGEN PEROXIDE 480 ML BOTTLE TP SCH ×2 (09:00→19:45)
[2019-02-28] MEDS: VITS A AND D/WHITE PET/LANOLIN 5 GM PACKET TP SCH ×4 (09:36→21:21)
[2019-02-28] MEDS: RIFAXIMIN 550 MG TABLET GT SCH ×2 (09:36→16:41)
[2019-02-28] MEDS: POTASSIUM CHLORIDE GT SCH (09:36)
[2019-02-28] MEDS: VITAMINS A AND D 56.7 GM TUBE TP SCH ×2 (09:36→21:21)
[2019-02-28] MEDS: CHOLECALCIFEROL (VITAMIN D 3) 400 UNIT TABLET GT SCH ×2 (09:36→21:21)
[2019-02-28] MEDS: FINASTERIDE (5 MG) 5 MG TABLET GT SCH (09:36)
[2019-02-28] MEDS: BIOTIN 5000 MCG GT SCH (09:36)
[2019-02-28] MEDS: [UNRECOGNIZED DRUG - OTHER] TP SCH ×2 (12:14→21:21)
[2019-02-28 15:26] VITALS: BP 135/74
[2019-02-28] MEDS: JEVITY 1.2 CAL 1,000 ML BOTTLE GT PRN (17:06)
[2019-02-28 20:53] VITALS: BP 145/94
[2019-02-28] MEDS: LATANOPROST EYE DROP 0.005% 2.5 ML BOTTLE EACHEYE SCH (21:21)
[2019-02-28] MEDS: BENAZEPRIL HCL 5 MG TABLET GT SCH (21:21)
[2019-02-28] MEDS: LORATADINE 10 MG TABLET GT SCH (21:21)
[2019-02-28] MEDS: PRAVASTATIN SODIUM 20 MG TABLET GT SCH (21:21)
[2019-03-01] MEDS: IPRATROPIUM NEB FS 0.5 MG/2.5 ML AMPUL.NEB NEB SCH ×4 (01:42→19:37)
[2019-03-01] MEDS: CHLORHEXIDINE GLUCONATE 15 ML UDC MM SCH ×2 (05:55→17:28)
[2019-03-01 07:52] VITALS: BP 137/87
[2019-03-01] MEDS: POTASSIUM CHLORIDE GT SCH (08:13)
[2019-03-01] MEDS: FINASTERIDE (5 MG) 5 MG TABLET GT SCH (08:15)
[2019-03-01] MEDS: CHOLECALCIFEROL (VITAMIN D 3) 400 UNIT TABLET GT SCH ×2 (08:15→21:00)
[2019-03-01] MEDS: BIOTIN 5000 MCG GT SCH (08:15)
[2019-03-01] MEDS: RIFAXIMIN 550 MG TABLET GT SCH ×2 (08:15→16:51)
[2019-03-01] MEDS: HYDROGEN PEROXIDE 480 ML BOTTLE TP SCH ×2 (09:00→21:00)
[2019-03-01] MEDS: DICLOFENAC TOPICAL 100 GM GEL..GM. TP SCH ×2 (09:00→16:51)
[2019-03-01] MEDS: VITAMINS A AND D 56.7 GM TUBE TP SCH ×2 (09:00→21:00)
[2019-03-01] MEDS: VITS A AND D/WHITE PET/LANOLIN 5 GM PACKET TP SCH ×4 (09:00→21:00)
--- NOTE | 2019-03-01 09:45 | NUR ---
RT PATIENT REC'D TRACHED ON ORDERED MODALITY TOLERATED WELL. PATIENT APPEARS COMFORTABLE AND IN NO DISTRESS AT THIS TIME. ALL SAFETY MEASURES CHECKED. WILL CONTINUE TO MONITOR CLOSELY. CONTINUE CURRENT PLAN OF RESP CARE. Addendum: 03/01/19 at 0946 by CURT COLLINS RT Amended: Links added.
[2019-03-01] MEDS: [UNRECOGNIZED DRUG - OTHER] TP SCH ×2 (12:34→21:00)
[2019-03-01] MEDS: HYDROCODONE/APAP 7.5/325MG 1 EACH TABLET GT PRN ×2 (13:22→21:03)
[2019-03-01] MEDS: JEVITY 1.2 CAL 1,000 ML BOTTLE GT PRN (14:26)
[2019-03-01 19:57] VITALS: BP 120/73
[2019-03-01] MEDS: LORATADINE 10 MG TABLET GT SCH (21:00)
[2019-03-01] MEDS: LATANOPROST EYE DROP 0.005% 2.5 ML BOTTLE EACHEYE SCH (21:00)
[2019-03-01] MEDS: BENAZEPRIL HCL 5 MG TABLET GT SCH (21:01)
[2019-03-01] MEDS: PRAVASTATIN SODIUM 20 MG TABLET GT SCH (21:01)
[2019-03-02] MEDS: IPRATROPIUM NEB FS 0.5 MG/2.5 ML AMPUL.NEB NEB SCH ×4 (01:47→19:53)
[2019-03-02] MEDS: JEVITY 1.2 CAL 1,000 ML BOTTLE GT PRN (05:49)
[2019-03-02] MEDS: CHLORHEXIDINE GLUCONATE 15 ML UDC MM SCH ×2 (05:49→17:25)
[2019-03-02 07:47] VITALS: BP 153/80
[2019-03-02] MEDS: VITS A AND D/WHITE PET/LANOLIN 5 GM PACKET TP SCH ×4 (08:43→20:34)
[2019-03-02] MEDS: DICLOFENAC TOPICAL 100 GM GEL..GM. TP SCH ×2 (08:43→17:25)
[2019-03-02] MEDS: BIOTIN 5000 MCG GT SCH (08:43)
[2019-03-02] MEDS: VITAMINS A AND D 56.7 GM TUBE TP SCH ×2 (08:43→20:34)
[2019-03-02] MEDS: CHOLECALCIFEROL (VITAMIN D 3) 400 UNIT TABLET GT SCH ×2 (08:43→20:34)
[2019-03-02] MEDS: FINASTERIDE (5 MG) 5 MG TABLET GT SCH (08:43)
[2019-03-02] MEDS: RIFAXIMIN 550 MG TABLET GT SCH ×2 (08:43→17:25)
[2019-03-02] MEDS: POTASSIUM CHLORIDE GT SCH (08:43)
[2019-03-02] MEDS: HYDROGEN PEROXIDE 480 ML BOTTLE TP SCH ×2 (09:00→20:34)
[2019-03-02] MEDS: [UNRECOGNIZED DRUG - OTHER] TP SCH ×2 (12:12→20:34)
[2019-03-02 20:25] VITALS: BP 100/65
[2019-03-02] MEDS: GLYCOPYRROLATE 1 MG TABLET GT PRN (20:34)
[2019-03-02] MEDS: MAGNESIUM HYDROXIDE 30 ML UDC GT PRN (20:34)
[2019-03-02] MEDS: BENAZEPRIL HCL 5 MG TABLET GT SCH (21:02)
[2019-03-02] MEDS: LORATADINE 10 MG TABLET GT SCH (21:02)
[2019-03-02] MEDS: PRAVASTATIN SODIUM 20 MG TABLET GT SCH (21:02)
[2019-03-02] MEDS: LATANOPROST EYE DROP 0.005% 2.5 ML BOTTLE EACHEYE SCH (21:02)
[2019-03-03] MEDS: IPRATROPIUM NEB FS 0.5 MG/2.5 ML AMPUL.NEB NEB SCH ×4 (01:22→19:59)
[2019-03-03] MEDS: JEVITY 1.2 CAL 1,000 ML BOTTLE GT PRN (05:10)
[2019-03-03] MEDS: SIMETHICONE SUSP 40 MG/0.6 ML BOTTLE GT PRN (05:10)
[2019-03-03] MEDS: CHLORHEXIDINE GLUCONATE 15 ML UDC MM SCH ×2 (05:10→17:46)
[2019-03-03] MEDS: GLYCOPYRROLATE 1 MG TABLET GT PRN (05:10)
[2019-03-03 08:42] VITALS: BP 143/95
[2019-03-03] MEDS: RIFAXIMIN 550 MG TABLET GT SCH ×2 (09:05→17:45)
[2019-03-03] MEDS: VITS A AND D/WHITE PET/LANOLIN 5 GM PACKET TP SCH ×4 (09:05→20:49)
[2019-03-03] MEDS: DICLOFENAC TOPICAL 100 GM GEL..GM. TP SCH ×2 (09:05→17:45)
[2019-03-03] MEDS: BIOTIN 5000 MCG GT SCH (09:05)
[2019-03-03] MEDS: VITAMINS A AND D 56.7 GM TUBE TP SCH ×2 (09:05→20:49)
[2019-03-03] MEDS: POTASSIUM CHLORIDE GT SCH (09:05)
[2019-03-03] MEDS: CHOLECALCIFEROL (VITAMIN D 3) 400 UNIT TABLET GT SCH ×2 (09:05→20:49)
[2019-03-03] MEDS: FINASTERIDE (5 MG) 5 MG TABLET GT SCH (09:05)
[2019-03-03] MEDS: HYDROGEN PEROXIDE 480 ML BOTTLE TP SCH ×2 (09:23→20:33)
[2019-03-03] MEDS: [UNRECOGNIZED DRUG - OTHER] TP SCH ×2 (13:00→20:49)
[2019-03-03 20:02] VITALS: BP 133/69
[2019-03-03] MEDS: HYDROCODONE/APAP 7.5/325MG 1 EACH TABLET GT PRN (20:48)
[2019-03-03] MEDS: LORATADINE 10 MG TABLET GT SCH (21:52)
[2019-03-03] MEDS: LATANOPROST EYE DROP 0.005% 2.5 ML BOTTLE EACHEYE SCH (21:52)
[2019-03-03] MEDS: BENAZEPRIL HCL 5 MG TABLET GT SCH (21:52)
[2019-03-03] MEDS: PRAVASTATIN SODIUM 20 MG TABLET GT SCH (21:52)
[2019-03-04] MEDS: IPRATROPIUM NEB FS 0.5 MG/2.5 ML AMPUL.NEB NEB SCH ×4 (00:56→19:44)
[2019-03-04] MEDS: CHLORHEXIDINE GLUCONATE 15 ML UDC MM SCH ×2 (05:27→18:00)
[2019-03-04 07:31] VITALS: BP 130/70
[2019-03-04] MEDS: POTASSIUM CHLORIDE GT SCH (08:00)
[2019-03-04] MEDS: BIOTIN 5000 MCG GT SCH (08:00)
[2019-03-04] MEDS: FINASTERIDE (5 MG) 5 MG TABLET GT SCH (08:00)
[2019-03-04] MEDS: RIFAXIMIN 550 MG TABLET GT SCH ×2 (08:01→16:07)
[2019-03-04] MEDS: CHOLECALCIFEROL (VITAMIN D 3) 400 UNIT TABLET GT SCH ×2 (08:01→20:21)
[2019-03-04] MEDS: HYDROCODONE/APAP 7.5/325MG 1 EACH TABLET GT PRN ×2 (08:01→23:04)
[2019-03-04] MEDS: VITAMINS A AND D 56.7 GM TUBE TP SCH ×2 (09:00→20:21)
[2019-03-04] MEDS: VITS A AND D/WHITE PET/LANOLIN 5 GM PACKET TP SCH ×4 (09:00→20:21)
[2019-03-04] MEDS: HYDROGEN PEROXIDE 480 ML BOTTLE TP SCH ×2 (09:00→20:21)
[2019-03-04] MEDS: DICLOFENAC TOPICAL 100 GM GEL..GM. TP SCH ×2 (09:00→16:08)
[2019-03-04] MEDS: [UNRECOGNIZED DRUG - OTHER] TP SCH ×2 (13:24→20:21)
--- NOTE | 2019-03-04 14:24 | NUR ---
Noted patient with small cut on the middle upper lip. Per she shaved him this morning and came to see patient earlier. Kept clean and dry. Patient did not have a razor cut prior to shaving patient. Asked patient what happened and he just Nodded "I dont know". Per AUTOMATIC NAILING MACHINE FEEDER's patient did not have anything prior to shaving patient. RN supervisor electronics inspection notified.
--- NOTE | 2019-03-04 14:39 | NUR ---
Addendum: Patient teaching provided to that nursing staff will shave patient but she said she always shaves him and she never cuts him. Risk vs benefits explained. All needs met and attended. Kept clean and comfortable.
[2019-03-04] MEDS: JEVITY 1.2 CAL 1,000 ML BOTTLE GT PRN (16:13)
[2019-03-04 20:06] VITALS: BP 139/91
[2019-03-04] MEDS: GLYCOPYRROLATE 1 MG TABLET GT PRN (20:21)
[2019-03-04] MEDS: BENAZEPRIL HCL 5 MG TABLET GT SCH (21:14)
[2019-03-04] MEDS: PRAVASTATIN SODIUM 20 MG TABLET GT SCH (21:14)
[2019-03-04] MEDS: LATANOPROST EYE DROP 0.005% 2.5 ML BOTTLE EACHEYE SCH (21:14)
[2019-03-04] MEDS: LORATADINE 10 MG TABLET GT SCH (21:14)
[2019-03-05] MEDS: IPRATROPIUM NEB FS 0.5 MG/2.5 ML AMPUL.NEB NEB SCH ×4 (01:25→19:43)
[2019-03-05] MEDS: CHLORHEXIDINE GLUCONATE 15 ML UDC MM SCH ×2 (05:31→17:02)
[2019-03-05] MEDS: MAGNESIUM HYDROXIDE 30 ML UDC GT PRN (06:40)
[2019-03-05 07:52] VITALS: BP 121/75
[2019-03-05] MEDS: POTASSIUM CHLORIDE GT SCH (08:48)
[2019-03-05] MEDS: BIOTIN 5000 MCG GT SCH (08:49)
[2019-03-05] MEDS: RIFAXIMIN 550 MG TABLET GT SCH ×2 (08:50→16:54)
[2019-03-05] MEDS: FINASTERIDE (5 MG) 5 MG TABLET GT SCH (08:50)
[2019-03-05] MEDS: CHOLECALCIFEROL (VITAMIN D 3) 400 UNIT TABLET GT SCH ×2 (08:54→21:35)
[2019-03-05] MEDS: DICLOFENAC TOPICAL 100 GM GEL..GM. TP SCH ×2 (09:00→16:54)
[2019-03-05] MEDS: VITS A AND D/WHITE PET/LANOLIN 5 GM PACKET TP SCH ×4 (09:00→21:35)
[2019-03-05] MEDS: HYDROGEN PEROXIDE 480 ML BOTTLE TP SCH ×2 (09:00→19:43)
[2019-03-05] MEDS: VITAMINS A AND D 56.7 GM TUBE TP SCH ×2 (09:00→21:35)
[2019-03-05] MEDS: HYDROCODONE/APAP 7.5/325MG 1 EACH TABLET GT PRN (11:00)
[2019-03-05] MEDS: JEVITY 1.2 CAL 1,000 ML BOTTLE GT PRN (12:35)
[2019-03-05] MEDS: [UNRECOGNIZED DRUG - OTHER] TP SCH ×2 (13:00→21:35)
[2019-03-05] MEDS: BISACODYL SUPP (10 MG) 10 MG/SUPP.RECT SUPP.RECT RC PRN (18:00)
[2019-03-05] MEDS: LORATADINE 10 MG TABLET GT SCH (21:35)
[2019-03-05] MEDS: LATANOPROST EYE DROP 0.005% 2.5 ML BOTTLE EACHEYE SCH (21:35)
[2019-03-05 21:36] VITALS: BP 131/73
[2019-03-05] MEDS: BENAZEPRIL HCL 5 MG TABLET GT SCH (21:36)
[2019-03-05] MEDS: PRAVASTATIN SODIUM 20 MG TABLET GT SCH (21:36)
--- NOTE | 2019-03-05 23:22 | NUR ---
PATIENT RECEIVED ON RA THEN PLACED BACK ON 28% AEROSOL T-COLLAR. SUCTIONED WITH LAVAGE FOR MODERATE, THICK, YELLOW-CREAM SECRETIONS. GIVEN IN-LINE TREATMENTS WITH NO ADVERSE REACTIONS. AMBU BAG AT BEDSIDE. Addendum: 03/05/19 at 2323 by MINOO CORRIGAN RT Amended: Links added.
[2019-03-06] MEDS: IPRATROPIUM NEB FS 0.5 MG/2.5 ML AMPUL.NEB NEB SCH ×4 (01:16→19:53)
[2019-03-06] MEDS: CHLORHEXIDINE GLUCONATE 15 ML UDC MM SCH ×2 (06:14→18:47)
[2019-03-06 07:46] VITALS: BP 126/76
[2019-03-06] MEDS: POTASSIUM CHLORIDE GT SCH (09:00)
[2019-03-06] MEDS: DICLOFENAC TOPICAL 100 GM GEL..GM. TP SCH ×2 (09:00→16:35)
[2019-03-06] MEDS: RIFAXIMIN 550 MG TABLET GT SCH ×2 (09:00→16:35)
[2019-03-06] MEDS: VITS A AND D/WHITE PET/LANOLIN 5 GM PACKET TP SCH ×4 (09:00→21:14)
[2019-03-06] MEDS: CHOLECALCIFEROL (VITAMIN D 3) 400 UNIT TABLET GT SCH ×2 (09:00→21:12)
[2019-03-06] MEDS: BIOTIN 5000 MCG GT SCH (09:00)
[2019-03-06] MEDS: VITAMINS A AND D 56.7 GM TUBE TP SCH ×2 (09:00→21:14)
[2019-03-06] MEDS: HYDROGEN PEROXIDE 480 ML BOTTLE TP SCH ×2 (09:07→19:53)
[2019-03-06] MEDS: FINASTERIDE (5 MG) 5 MG TABLET GT SCH (10:00)
[2019-03-06] MEDS: [UNRECOGNIZED DRUG - OTHER] TP SCH ×2 (13:12→21:14)
[2019-03-06] MEDS: JEVITY 1.2 CAL 1,000 ML BOTTLE GT PRN (15:53)
[2019-03-06 21:04] VITALS: BP 126/71
[2019-03-06] MEDS: LATANOPROST EYE DROP 0.005% 2.5 ML BOTTLE EACHEYE SCH (21:14)
[2019-03-06] MEDS: LORATADINE 10 MG TABLET GT SCH (21:15)
[2019-03-06] MEDS: BENAZEPRIL HCL 5 MG TABLET GT SCH (21:15)
[2019-03-06] MEDS: PRAVASTATIN SODIUM 20 MG TABLET GT SCH (21:15)
[2019-03-06] MEDS: HYDROCODONE/APAP 7.5/325MG 1 EACH TABLET GT PRN (21:45)
[2019-03-07] MEDS: IPRATROPIUM NEB FS 0.5 MG/2.5 ML AMPUL.NEB NEB SCH ×4 (01:23→20:08)
[2019-03-07] MEDS: CHLORHEXIDINE GLUCONATE 15 ML UDC MM SCH (05:37)
[2019-03-07 07:32] VITALS: BP 131/73
[2019-03-07 07:33] VITALS: BP 132/72
[2019-03-07] MEDS: HYDROGEN PEROXIDE 480 ML BOTTLE TP SCH ×2 (09:00→20:58)
[2019-03-07] MEDS: FINASTERIDE (5 MG) 5 MG TABLET GT SCH (09:27)
[2019-03-07] MEDS: RIFAXIMIN 550 MG TABLET GT SCH ×2 (09:27→16:15)
[2019-03-07] MEDS: BIOTIN 5000 MCG GT SCH (09:27)
[2019-03-07] MEDS: POTASSIUM CHLORIDE GT SCH (09:27)
[2019-03-07] MEDS: DICLOFENAC TOPICAL 100 GM GEL..GM. TP SCH ×2 (09:27→16:15)
[2019-03-07] MEDS: CHOLECALCIFEROL (VITAMIN D 3) 400 UNIT TABLET GT SCH ×2 (09:27→21:32)
[2019-03-07] MEDS: VITS A AND D/WHITE PET/LANOLIN 5 GM PACKET TP SCH ×4 (09:28→21:32)
[2019-03-07] MEDS: VITAMINS A AND D 56.7 GM TUBE TP SCH ×2 (09:28→21:32)
--- NOTE | 2019-03-07 11:58 | NUR ---
Invitation to Family Support Group: SW called patients responsible constitution party / Asha Lopez [phone] to invite them to attend the family support group being held tomorrow March 08, 2019 from 11 am-12pm in the old admin. conference room in the first floor. Per Asha, she will be in attendance. No further action required.
[2019-03-07] MEDS: SUMATRIPTAN SUCCINATE 25 MG TABLET GT PRN (12:21)
[2019-03-07] MEDS: GLYCOPYRROLATE 1 MG TABLET GT PRN (12:22)
[2019-03-07] MEDS: [UNRECOGNIZED DRUG - OTHER] TP SCH ×2 (13:00→21:32)
[2019-03-07] MEDS: JEVITY 1.2 CAL 1,000 ML BOTTLE GT PRN (16:13)
[2019-03-07 20:45] VITALS: BP 142/98
[2019-03-07] MEDS: LORATADINE 10 MG TABLET GT SCH (21:33)
[2019-03-07] MEDS: BENAZEPRIL HCL 5 MG TABLET GT SCH (21:33)
[2019-03-07] MEDS: PRAVASTATIN SODIUM 20 MG TABLET GT SCH (21:33)
[2019-03-07] MEDS: LATANOPROST EYE DROP 0.005% 2.5 ML BOTTLE EACHEYE SCH (21:33)
[2019-03-08] MEDS: IPRATROPIUM NEB FS 0.5 MG/2.5 ML AMPUL.NEB NEB SCH ×4 (01:44→19:51)
[2019-03-08] MEDS: CHLORHEXIDINE GLUCONATE 15 ML UDC MM SCH ×2 (05:34→18:23)
[2019-03-08 07:42] VITALS: BP 115/70
[2019-03-08] MEDS: HYDROGEN PEROXIDE 480 ML BOTTLE TP SCH ×2 (08:18→21:06)
[2019-03-08] MEDS: POTASSIUM CHLORIDE GT SCH (09:16)
[2019-03-08] MEDS: FINASTERIDE (5 MG) 5 MG TABLET GT SCH (09:17)
[2019-03-08] MEDS: VITAMINS A AND D 56.7 GM TUBE TP SCH ×2 (09:17→21:22)
[2019-03-08] MEDS: RIFAXIMIN 550 MG TABLET GT SCH ×2 (09:17→16:57)
[2019-03-08] MEDS: BIOTIN 5000 MCG GT SCH (09:17)
[2019-03-08] MEDS: DICLOFENAC TOPICAL 100 GM GEL..GM. TP SCH ×2 (09:17→16:57)
[2019-03-08] MEDS: VITS A AND D/WHITE PET/LANOLIN 5 GM PACKET TP SCH ×4 (09:17→21:22)
[2019-03-08] MEDS: CHOLECALCIFEROL (VITAMIN D 3) 400 UNIT TABLET GT SCH ×2 (09:17→21:22)
[2019-03-08] MEDS: [UNRECOGNIZED DRUG - OTHER] TP SCH ×2 (13:27→21:22)
--- NOTE | 2019-03-08 15:30 | NUR ---
Family Suppport Group Note: Goal: Residents family will attend family support group held Friday, March 08, 2019 from 11 am-12 pm. Intervention: SW facilitated family support group. SW explained a social workers role in subacute and purpose of the family support group. SW met the family where they were at and encouraged responsible democrat to attend the interdisciplinary plan of care conference to communicate the goal she has for resident. SW educated family that SW cannot give a response regarding patients health care as it is not within the SW scope. SW provided validation, used reflective listening, reinforced familys current support for resident as family visit resident daily. SW encouraged responsible democrat to keep advocating for residents health care rights. SW explored whether the families concerns were detrimental in resident health or well-being. Response: Asha is East Timorese speaking only. Asha expressed understanding SW role and purpose of support group. Asha expressed concerns about pt. care. Asha expressed understanding that IDT can supply her with professional recommendations regarding pt. care and rehabilitation and was agreeable to being more involved in IDT meetings to voice her goal for pt. Asha expressed that her concerns are not detrimental to the residents health or well-being and instead are preferences with care. Asha stated, thank you for hearing us out. Plan: Family will be invited to attend next family support Group held April 05, 2019 11 am-12 pm.
[2019-03-08] MEDS: JEVITY 1.2 CAL 1,000 ML BOTTLE GT PRN (16:57)
[2019-03-08] MEDS: MAGNESIUM HYDROXIDE 30 ML UDC GT PRN (16:58)
[2019-03-08] MEDS: BISACODYL SUPP (10 MG) 10 MG/SUPP.RECT SUPP.RECT RC PRN (18:38)
[2019-03-08] MEDS: LATANOPROST EYE DROP 0.005% 2.5 ML BOTTLE EACHEYE SCH (21:22)
[2019-03-08] MEDS: LORATADINE 10 MG TABLET GT SCH (21:22)
[2019-03-08] MEDS: BENAZEPRIL HCL 5 MG TABLET GT SCH (21:23)
[2019-03-08] MEDS: PRAVASTATIN SODIUM 20 MG TABLET GT SCH (21:23)
[2019-03-08] MEDS: GLYCOPYRROLATE 1 MG TABLET GT PRN (21:23)
[2019-03-08 21:29] VITALS: BP 145/84
[2019-03-09] MEDS: IPRATROPIUM NEB FS 0.5 MG/2.5 ML AMPUL.NEB NEB SCH ×4 (01:33→19:39)
[2019-03-09] MEDS: CHLORHEXIDINE GLUCONATE 15 ML UDC MM SCH ×2 (05:38→18:21)
[2019-03-09 07:54] VITALS: BP 133/78
[2019-03-09] MEDS: FINASTERIDE (5 MG) 5 MG TABLET GT SCH (08:17)
[2019-03-09] MEDS: VITAMINS A AND D 56.7 GM TUBE TP SCH ×2 (08:17→20:18)
[2019-03-09] MEDS: CHOLECALCIFEROL (VITAMIN D 3) 400 UNIT TABLET GT SCH ×2 (08:17→20:18)
[2019-03-09] MEDS: VITS A AND D/WHITE PET/LANOLIN 5 GM PACKET TP SCH ×4 (08:17→20:18)
[2019-03-09] MEDS: BIOTIN 5000 MCG GT SCH (08:17)
[2019-03-09] MEDS: DICLOFENAC TOPICAL 100 GM GEL..GM. TP SCH ×2 (08:17→16:30)
[2019-03-09] MEDS: RIFAXIMIN 550 MG TABLET GT SCH ×2 (08:17→16:30)
[2019-03-09] MEDS: POTASSIUM CHLORIDE GT SCH (08:17)
[2019-03-09] MEDS: HYDROGEN PEROXIDE 480 ML BOTTLE TP SCH ×2 (09:00→20:18)
[2019-03-09] MEDS: [UNRECOGNIZED DRUG - OTHER] TP SCH ×2 (13:27→20:18)
--- NOTE | 2019-03-09 14:21 | NUR ---
MDS Note: SKIP completed SS portion of 3rd quarter MDS. The residents , Asha Lopez [phone] is conservator and visits daily. Resident receives ambulation for 45 min daily. Pt. had dental cleaning on September 05, 2018. The resident is Full Code and has periods of confusion. Resident is not verbal, however, pt. was able to nod his head to communicate with SW.
[2019-03-09] MEDS: JEVITY 1.2 CAL 1,000 ML BOTTLE GT PRN (18:22)
[2019-03-09] MEDS: GLYCOPYRROLATE 1 MG TABLET GT PRN (18:22)
[2019-03-09] MEDS: HYDROCODONE/APAP 7.5/325MG 1 EACH TABLET GT PRN (19:58)
[2019-03-09 20:37] VITALS: BP 134/90
[2019-03-09] MEDS: PRAVASTATIN SODIUM 20 MG TABLET GT SCH (21:13)
[2019-03-09] MEDS: LORATADINE 10 MG TABLET GT SCH (21:13)
[2019-03-09] MEDS: LATANOPROST EYE DROP 0.005% 2.5 ML BOTTLE EACHEYE SCH (21:13)
[2019-03-09] MEDS: BENAZEPRIL HCL 5 MG TABLET GT SCH (21:13)
--- NOTE | 2019-03-09 22:00 | NUR ---
Nurse call by pt's TRAFFIC INVESTIGATOR and @ Bs, as pt noted with open skin to L and R Groin area , no bleeding noted. Cleansed with mild soap and h20 gently pat dry, photo taken - will show to MD during rounds in am. Reported to Labor Operator Nurse.
[2019-03-10] MEDS: IPRATROPIUM NEB FS 0.5 MG/2.5 ML AMPUL.NEB NEB SCH ×4 (00:45→20:04)
[2019-03-10] MEDS: CHLORHEXIDINE GLUCONATE 15 ML UDC MM SCH ×2 (05:20→18:19)
[2019-03-10] MEDS: GLYCOPYRROLATE 1 MG TABLET GT PRN ×2 (05:40→20:31)
[2019-03-10] MEDS: HYDROCODONE/APAP 7.5/325MG 1 EACH TABLET GT PRN (05:40)
[2019-03-10 07:37] VITALS: BP 159/85
[2019-03-10] MEDS: BIOTIN 5000 MCG GT SCH (08:38)
[2019-03-10] MEDS: FINASTERIDE (5 MG) 5 MG TABLET GT SCH (08:38)
[2019-03-10] MEDS: POTASSIUM CHLORIDE GT SCH (08:38)
[2019-03-10] MEDS: DICLOFENAC TOPICAL 100 GM GEL..GM. TP SCH ×2 (08:38→17:00)
[2019-03-10] MEDS: CHOLECALCIFEROL (VITAMIN D 3) 400 UNIT TABLET GT SCH ×2 (08:38→20:30)
[2019-03-10] MEDS: RIFAXIMIN 550 MG TABLET GT SCH ×2 (08:38→17:00)
[2019-03-10] MEDS: VITAMINS A AND D 56.7 GM TUBE TP SCH ×2 (08:38→20:30)
[2019-03-10] MEDS: VITS A AND D/WHITE PET/LANOLIN 5 GM PACKET TP SCH ×4 (08:38→20:30)
[2019-03-10] MEDS: HYDROGEN PEROXIDE 480 ML BOTTLE TP SCH ×2 (09:00→20:30)
--- NOTE | 2019-03-10 11:30 | NUR ---
Dr. Edwards notified of the bilateral groin redness with open skin. Ordered to apply Vaseline to the area QS and leave open to air for 14 days. Order carried out.
[2019-03-10] MEDS: [UNRECOGNIZED DRUG - OTHER] TP SCH ×2 (13:00→20:30)
[2019-03-10 20:24] VITALS: BP 99/49
[2019-03-10 20:29] VITALS: BP 137/89
[2019-03-10] MEDS: LATANOPROST EYE DROP 0.005% 2.5 ML BOTTLE EACHEYE SCH (21:05)
[2019-03-10] MEDS: PRAVASTATIN SODIUM 20 MG TABLET GT SCH (21:05)
[2019-03-10] MEDS: LORATADINE 10 MG TABLET GT SCH (21:05)
[2019-03-10] MEDS: BENAZEPRIL HCL 5 MG TABLET GT SCH (21:05)
[2019-03-11] MEDS: HYDROCODONE/APAP 7.5/325MG 1 EACH TABLET GT PRN (00:20)
[2019-03-11] MEDS: JEVITY 1.2 CAL 1,000 ML BOTTLE GT PRN ×2 (00:20→15:22)
[2019-03-11] MEDS: IPRATROPIUM NEB FS 0.5 MG/2.5 ML AMPUL.NEB NEB SCH ×4 (01:40→19:41)
[2019-03-11] MEDS: CHLORHEXIDINE GLUCONATE 15 ML UDC MM SCH ×2 (05:31→17:05)
[2019-03-11] MEDS: MAGNESIUM HYDROXIDE 30 ML UDC GT PRN (05:32)
[2019-03-11] MEDS: GLYCOPYRROLATE 1 MG TABLET GT PRN ×2 (05:32→20:37)
[2019-03-11 07:45] VITALS: BP 124/74
[2019-03-11] MEDS: POTASSIUM CHLORIDE GT SCH (08:42)
[2019-03-11] MEDS: BIOTIN 5000 MCG GT SCH (08:42)
[2019-03-11] MEDS: FINASTERIDE (5 MG) 5 MG TABLET GT SCH (08:43)
[2019-03-11] MEDS: RIFAXIMIN 550 MG TABLET GT SCH ×2 (08:43→17:05)
[2019-03-11] MEDS: CHOLECALCIFEROL (VITAMIN D 3) 400 UNIT TABLET GT SCH ×2 (08:44→20:36)
[2019-03-11] MEDS: HYDROGEN PEROXIDE 480 ML BOTTLE TP SCH ×2 (09:00→20:36)
[2019-03-11] MEDS: VITS A AND D/WHITE PET/LANOLIN 5 GM PACKET TP SCH ×4 (09:00→20:36)
[2019-03-11] MEDS: VITAMINS A AND D 56.7 GM TUBE TP SCH ×2 (09:00→20:36)
[2019-03-11] MEDS ORDERED: PETROLATUM,WHITE PACKET 5 GM PACKET TP SCH (09:00)
[2019-03-11] MEDS: DICLOFENAC TOPICAL 100 GM GEL..GM. TP SCH ×2 (09:00→17:05)
[2019-03-11] MEDS: [UNRECOGNIZED DRUG - OTHER] TP SCH ×2 (13:00→20:36)
--- NOTE | 2019-03-11 15:24 | NUR ---
Seen and examined by Dr. Edwards, made aware that Mrs. Lopez prefer to use the medicated powder instead of Vaseline as treatment in the bilateral groin open area. Dr. Edwards take a look at the bottle and said that it is OK to use. Order carried out.
[2019-03-11 20:26] VITALS: BP 139/85
[2019-03-11] MEDS: [UNRECOGNIZED DRUG - OTHER] TP SCH (20:36)
[2019-03-11] MEDS: LORATADINE 10 MG TABLET GT SCH (21:41)
[2019-03-11] MEDS: LATANOPROST EYE DROP 0.005% 2.5 ML BOTTLE EACHEYE SCH (21:41)
[2019-03-11] MEDS: PRAVASTATIN SODIUM 20 MG TABLET GT SCH (21:41)
[2019-03-11] MEDS: BENAZEPRIL HCL 5 MG TABLET GT SCH (21:41)
[2019-03-12] MEDS: IPRATROPIUM NEB FS 0.5 MG/2.5 ML AMPUL.NEB NEB SCH ×4 (01:51→19:47)
[2019-03-12] MEDS: CHLORHEXIDINE GLUCONATE 15 ML UDC MM SCH ×2 (05:21→17:13)
[2019-03-12] MEDS: BISACODYL SUPP (10 MG) 10 MG/SUPP.RECT SUPP.RECT RC PRN (05:21)
[2019-03-12 07:34] VITALS: BP 125/76
[2019-03-12] MEDS: VITS A AND D/WHITE PET/LANOLIN 5 GM PACKET TP SCH ×4 (09:00→21:00)
[2019-03-12] MEDS: [UNRECOGNIZED DRUG - OTHER] TP SCH ×2 (09:00→21:00)
[2019-03-12] MEDS: HYDROGEN PEROXIDE 480 ML BOTTLE TP SCH ×2 (09:00→21:06)
[2019-03-12] MEDS: POTASSIUM CHLORIDE GT SCH (09:25)
[2019-03-12] MEDS: BIOTIN 5000 MCG GT SCH (09:25)
[2019-03-12] MEDS: RIFAXIMIN 550 MG TABLET GT SCH ×2 (09:26→17:12)
[2019-03-12] MEDS: FINASTERIDE (5 MG) 5 MG TABLET GT SCH (09:26)
[2019-03-12] MEDS: DICLOFENAC TOPICAL 100 GM GEL..GM. TP SCH ×2 (09:26→17:12)
[2019-03-12] MEDS: CHOLECALCIFEROL (VITAMIN D 3) 400 UNIT TABLET GT SCH ×2 (09:26→21:00)
[2019-03-12] MEDS: VITAMINS A AND D 56.7 GM TUBE TP SCH ×2 (09:26→21:00)
[2019-03-12] MEDS: HYDROCODONE/APAP 7.5/325MG 1 EACH TABLET GT PRN (10:55)
[2019-03-12] MEDS: [UNRECOGNIZED DRUG - OTHER] TP SCH ×2 (13:00→21:00)
[2019-03-12] MEDS: JEVITY 1.2 CAL 1,000 ML BOTTLE GT PRN (14:49)
[2019-03-12 20:00] VITALS: BP 138/80
[2019-03-12] MEDS: LATANOPROST EYE DROP 0.005% 2.5 ML BOTTLE EACHEYE SCH (21:07)
[2019-03-12] MEDS: BENAZEPRIL HCL 5 MG TABLET GT SCH (21:08)
[2019-03-12] MEDS: PRAVASTATIN SODIUM 20 MG TABLET GT SCH (21:09)
[2019-03-12] MEDS: LORATADINE 10 MG TABLET GT SCH (21:16)
[2019-03-13] MEDS: HYDROCODONE/APAP 7.5/325MG 1 EACH TABLET GT PRN ×2 (00:38→10:40)
[2019-03-13] MEDS: IPRATROPIUM NEB FS 0.5 MG/2.5 ML AMPUL.NEB NEB SCH ×4 (01:36→20:19)
[2019-03-13] MEDS: JEVITY 1.2 CAL 1,000 ML BOTTLE GT PRN (05:14)
[2019-03-13] MEDS: CHLORHEXIDINE GLUCONATE 15 ML UDC MM SCH ×2 (06:20→17:52)
[2019-03-13] MEDS: MAGNESIUM HYDROXIDE 30 ML UDC GT PRN (06:59)
[2019-03-13 08:15] VITALS: BP 126/81
[2019-03-13] MEDS: HYDROGEN PEROXIDE 480 ML BOTTLE TP SCH ×2 (09:00→20:19)
[2019-03-13] MEDS: [UNRECOGNIZED DRUG - OTHER] TP SCH ×2 (09:00→21:46)
--- NOTE | 2019-03-13 09:00 | NUR ---
Completed 3rd Quarter MDS on 03/09/19. Resident was able to participate in BIMS. Was asked to remove early warning EZ release seatbelt and able to do so without difficulty while bed alarm on does not stop nor discourage resident from making movements on bed per this observation period. would like to continue with EZ release seatbelt and verbalized resident benefits from it for safety. No falls noted past quarter. Resident continues to ambulate with RNA 5x/week Wednesday to Wednesday and seen in activity room at times for programs and socialization. Urinal seen kept in the bathroom for resident and offered every shift. Remains frequently incontinent of bladder with bladder incontinence daily but able to use urinal at least once or twice/week. Assisted to bathroom prn and remains frequently incontinent of bowel with bathroom use for bm at least once this observation period. Care plans updated.
[2019-03-13] MEDS: BIOTIN 5000 MCG GT SCH (09:02)
[2019-03-13] MEDS: POTASSIUM CHLORIDE GT SCH (09:02)
[2019-03-13] MEDS: CHOLECALCIFEROL (VITAMIN D 3) 400 UNIT TABLET GT SCH ×2 (09:03→21:45)
[2019-03-13] MEDS: VITS A AND D/WHITE PET/LANOLIN 5 GM PACKET TP SCH ×4 (09:03→21:46)
[2019-03-13] MEDS: RIFAXIMIN 550 MG TABLET GT SCH ×2 (09:03→17:52)
[2019-03-13] MEDS: FINASTERIDE (5 MG) 5 MG TABLET GT SCH (09:03)
[2019-03-13] MEDS: VITAMINS A AND D 56.7 GM TUBE TP SCH ×2 (09:04→21:46)
[2019-03-13] MEDS: DICLOFENAC TOPICAL 100 GM GEL..GM. TP SCH ×2 (09:04→17:52)
[2019-03-13] MEDS: [UNRECOGNIZED DRUG - OTHER] TP SCH ×2 (13:00→21:46)
[2019-03-13 20:43] VITALS: BP 144/85
[2019-03-13] MEDS: LATANOPROST EYE DROP 0.005% 2.5 ML BOTTLE EACHEYE SCH (21:46)
[2019-03-13] MEDS: BENAZEPRIL HCL 5 MG TABLET GT SCH (21:46)
[2019-03-13] MEDS: LORATADINE 10 MG TABLET GT SCH (21:46)
[2019-03-13] MEDS: PRAVASTATIN SODIUM 20 MG TABLET GT SCH (21:47)
[2019-03-14] MEDS: IPRATROPIUM NEB FS 0.5 MG/2.5 ML AMPUL.NEB NEB SCH ×4 (02:17→19:57)
[2019-03-14] MEDS: CHLORHEXIDINE GLUCONATE 15 ML UDC MM SCH ×2 (05:43→16:43)
[2019-03-14] MEDS: MAGNESIUM HYDROXIDE 30 ML UDC GT PRN (06:54)
[2019-03-14 07:41] VITALS: BP 149/86
[2019-03-14] MEDS: HYDROGEN PEROXIDE 480 ML BOTTLE TP SCH ×2 (08:36→19:57)
[2019-03-14] MEDS: POTASSIUM CHLORIDE GT SCH (08:54)
[2019-03-14] MEDS: RIFAXIMIN 550 MG TABLET GT SCH ×2 (08:54→16:43)
[2019-03-14] MEDS: CHOLECALCIFEROL (VITAMIN D 3) 400 UNIT TABLET GT SCH ×2 (08:54→21:33)
[2019-03-14] MEDS: BIOTIN 5000 MCG GT SCH (08:54)
[2019-03-14] MEDS: FINASTERIDE (5 MG) 5 MG TABLET GT SCH (08:54)
[2019-03-14] MEDS: VITAMINS A AND D 56.7 GM TUBE TP SCH ×2 (08:55→21:33)
[2019-03-14] MEDS: VITS A AND D/WHITE PET/LANOLIN 5 GM PACKET TP SCH ×4 (08:55→21:33)
[2019-03-14] MEDS: DICLOFENAC TOPICAL 100 GM GEL..GM. TP SCH ×2 (08:55→16:43)
[2019-03-14] MEDS: [UNRECOGNIZED DRUG - OTHER] TP SCH ×2 (09:00→21:33)
[2019-03-14] MEDS: [UNRECOGNIZED DRUG - OTHER] TP SCH ×2 (13:00→21:33)
--- NOTE | 2019-03-14 15:20 | NUR ---
IDT Plan of Care Conference Invitation to family: SKIP communicated to pt.s , Asha John at pt.s bed side that the next IDT meeting will be taking place this March 17 from 12:30-1:30pm in the SA activities room. Asha was agreeable to plan.
--- NOTE | 2019-03-14 16:23 | NUR ---
Pt has no more available D-Mannose at this time. D-Mannose is being provided by pt's family. Pt's has been reminded to bring more before the supply ran out. She said she is ordering the medication. Notified Dr Edwards.
[2019-03-14 20:29] VITALS: BP 115/77
[2019-03-14] MEDS: LATANOPROST EYE DROP 0.005% 2.5 ML BOTTLE EACHEYE SCH (21:33)
[2019-03-14] MEDS: LORATADINE 10 MG TABLET GT SCH (21:33)
[2019-03-14] MEDS: PRAVASTATIN SODIUM 20 MG TABLET GT SCH (21:34)
[2019-03-14] MEDS: BENAZEPRIL HCL 5 MG TABLET GT SCH (21:34)
[2019-03-15] MEDS: IPRATROPIUM NEB FS 0.5 MG/2.5 ML AMPUL.NEB NEB SCH ×4 (01:30→20:03)
[2019-03-15] MEDS: CHLORHEXIDINE GLUCONATE 15 ML UDC MM SCH ×2 (05:28→18:52)
[2019-03-15 08:00] VITALS: BP 145/78
[2019-03-15] MEDS: [UNRECOGNIZED DRUG - OTHER] TP SCH ×2 (09:00→21:54)
[2019-03-15] MEDS: HYDROGEN PEROXIDE 480 ML BOTTLE TP SCH ×2 (09:00→20:04)
[2019-03-15] MEDS: RIFAXIMIN 550 MG TABLET GT SCH ×2 (09:01→16:47)
[2019-03-15] MEDS: FINASTERIDE (5 MG) 5 MG TABLET GT SCH (09:01)
[2019-03-15] MEDS: BIOTIN 5000 MCG GT SCH (09:01)
[2019-03-15] MEDS: POTASSIUM CHLORIDE GT SCH (09:01)
[2019-03-15] MEDS: CHOLECALCIFEROL (VITAMIN D 3) 400 UNIT TABLET GT SCH ×2 (09:01→21:54)
[2019-03-15] MEDS: VITS A AND D/WHITE PET/LANOLIN 5 GM PACKET TP SCH ×4 (09:58→21:54)
[2019-03-15] MEDS: DICLOFENAC TOPICAL 100 GM GEL..GM. TP SCH ×2 (09:59→16:47)
[2019-03-15] MEDS: VITAMINS A AND D 56.7 GM TUBE TP SCH ×2 (09:59→21:54)
--- NOTE | 2019-03-15 13:00 | NUR ---
Seen and examined by Denise Pichardo NP no new order given.
[2019-03-15] MEDS: [UNRECOGNIZED DRUG - OTHER] TP SCH ×2 (13:01→21:54)
[2019-03-15 20:28] VITALS: BP 149/78
[2019-03-15] MEDS: LORATADINE 10 MG TABLET GT SCH (21:54)
[2019-03-15] MEDS: LATANOPROST EYE DROP 0.005% 2.5 ML BOTTLE EACHEYE SCH (21:54)
[2019-03-15] MEDS: PRAVASTATIN SODIUM 20 MG TABLET GT SCH (21:55)
[2019-03-15] MEDS: BENAZEPRIL HCL 5 MG TABLET GT SCH (21:55)
[2019-03-16] MEDS: HYDROCODONE/APAP 7.5/325MG 1 EACH TABLET GT PRN (00:23)
[2019-03-16] MEDS: IPRATROPIUM NEB FS 0.5 MG/2.5 ML AMPUL.NEB NEB SCH ×4 (01:40→20:09)
[2019-03-16] MEDS: CHLORHEXIDINE GLUCONATE 15 ML UDC MM SCH ×2 (05:21→17:53)
[2019-03-16] MEDS: JEVITY 1.2 CAL 1,000 ML BOTTLE GT PRN (05:21)
[2019-03-16 08:04] VITALS: BP 141/89
[2019-03-16] MEDS: VITAMINS A AND D 56.7 GM TUBE TP SCH ×2 (08:27→21:25)
[2019-03-16] MEDS: FINASTERIDE (5 MG) 5 MG TABLET GT SCH (08:27)
[2019-03-16] MEDS: POTASSIUM CHLORIDE GT SCH (08:27)
[2019-03-16] MEDS: VITS A AND D/WHITE PET/LANOLIN 5 GM PACKET TP SCH ×4 (08:27→21:24)
[2019-03-16] MEDS: DICLOFENAC TOPICAL 100 GM GEL..GM. TP SCH ×2 (08:27→17:53)
[2019-03-16] MEDS: RIFAXIMIN 550 MG TABLET GT SCH ×2 (08:27→17:53)
[2019-03-16] MEDS: BIOTIN 5000 MCG GT SCH (08:27)
[2019-03-16] MEDS: [UNRECOGNIZED DRUG - OTHER] TP SCH ×2 (08:27→21:24)
[2019-03-16] MEDS: CHOLECALCIFEROL (VITAMIN D 3) 400 UNIT TABLET GT SCH ×2 (08:27→21:24)
[2019-03-16] MEDS: HYDROGEN PEROXIDE 480 ML BOTTLE TP SCH ×2 (09:00→20:09)
[2019-03-16] MEDS: [UNRECOGNIZED DRUG - OTHER] TP SCH ×2 (13:00→21:24)
[2019-03-16] MEDS: GLYCOPYRROLATE 1 MG TABLET GT PRN (17:53)
[2019-03-16 20:45] VITALS: BP 146/90
--- NOTE | 2019-03-16 21:10 | NUR ---
seen and examined by Denise VORA.
[2019-03-16] MEDS: LATANOPROST EYE DROP 0.005% 2.5 ML BOTTLE EACHEYE SCH (21:25)
[2019-03-16] MEDS: LORATADINE 10 MG TABLET GT SCH (21:25)
[2019-03-16] MEDS: BENAZEPRIL HCL 5 MG TABLET GT SCH (21:25)
[2019-03-16] MEDS: PRAVASTATIN SODIUM 20 MG TABLET GT SCH (21:25)
[2019-03-17] MEDS: IPRATROPIUM NEB FS 0.5 MG/2.5 ML AMPUL.NEB NEB SCH ×4 (00:49→20:05)
[2019-03-17] MEDS: SUMATRIPTAN SUCCINATE 25 MG TABLET GT PRN (03:37)
[2019-03-17] MEDS: JEVITY 1.2 CAL 1,000 ML BOTTLE GT PRN ×2 (04:34→23:21)
[2019-03-17] MEDS: CHLORHEXIDINE GLUCONATE 15 ML UDC MM SCH ×2 (06:12→18:29)
[2019-03-17 07:41] VITALS: BP 134/78
[2019-03-17] MEDS: HYDROGEN PEROXIDE 480 ML BOTTLE TP SCH ×2 (09:00→20:05)
[2019-03-17] MEDS: [UNRECOGNIZED DRUG - OTHER] TP SCH ×2 (09:10→21:13)
[2019-03-17] MEDS: CHOLECALCIFEROL (VITAMIN D 3) 400 UNIT TABLET GT SCH ×2 (09:10→21:13)
[2019-03-17] MEDS: VITS A AND D/WHITE PET/LANOLIN 5 GM PACKET TP SCH ×4 (09:10→21:15)
[2019-03-17] MEDS: DICLOFENAC TOPICAL 100 GM GEL..GM. TP SCH ×2 (09:10→16:34)
[2019-03-17] MEDS: VITAMINS A AND D 56.7 GM TUBE TP SCH ×2 (09:10→21:15)
[2019-03-17] MEDS: RIFAXIMIN 550 MG TABLET GT SCH ×2 (09:10→16:34)
[2019-03-17] MEDS: BIOTIN 5000 MCG GT SCH (09:10)
[2019-03-17] MEDS: FINASTERIDE (5 MG) 5 MG TABLET GT SCH (09:10)
[2019-03-17] MEDS: POTASSIUM CHLORIDE GT SCH (09:10)
[2019-03-17] MEDS: [UNRECOGNIZED DRUG - OTHER] TP SCH ×2 (13:00→21:14)
--- NOTE | 2019-03-17 15:22 | NUR ---
INTERDISCIPLINARY TEAM PLAN OF CARE CONFERENCE was held today. The patient's responsible green party/ Asha Lopez [phone] could not attend or participate via phone conference. Charge nurse communicated about pt.s redness and open skin to the left and right of groin and 's order to apply Vaseline to the area QS and leave open to air for 14 days. Per Mrs. Lopez preference, medicated powder to be used instead of Vaseline; Dr. Edwards was agreeable. Dr. Mejia and interdisciplinary team discussed the current plan of care in detail. Current orders as well as treatments and medications were reviewed. See other discipline's IDT notes for further details.
[2019-03-17 20:11] VITALS: BP 140/92
[2019-03-17] MEDS: BENAZEPRIL HCL 5 MG TABLET GT SCH (21:15)
[2019-03-17] MEDS: LORATADINE 10 MG TABLET GT SCH (21:15)
[2019-03-17] MEDS: PRAVASTATIN SODIUM 20 MG TABLET GT SCH (21:15)
[2019-03-17] MEDS: LATANOPROST EYE DROP 0.005% 2.5 ML BOTTLE EACHEYE SCH (21:15)
[2019-03-18] MEDS: IPRATROPIUM NEB FS 0.5 MG/2.5 ML AMPUL.NEB NEB SCH ×4 (02:03→19:51)
[2019-03-18] MEDS: CHLORHEXIDINE GLUCONATE 15 ML UDC MM SCH ×2 (05:41→17:01)
[2019-03-18 07:41] VITALS: BP 122/68
[2019-03-18] MEDS: VITS A AND D/WHITE PET/LANOLIN 5 GM PACKET TP SCH ×4 (08:40→21:07)
[2019-03-18] MEDS: POTASSIUM CHLORIDE GT SCH (08:40)
[2019-03-18] MEDS: VITAMINS A AND D 56.7 GM TUBE TP SCH ×2 (08:40→21:07)
[2019-03-18] MEDS: FINASTERIDE (5 MG) 5 MG TABLET GT SCH (08:40)
[2019-03-18] MEDS: CHOLECALCIFEROL (VITAMIN D 3) 400 UNIT TABLET GT SCH ×2 (08:40→21:10)
[2019-03-18] MEDS: BIOTIN 5000 MCG GT SCH (08:40)
[2019-03-18] MEDS: [UNRECOGNIZED DRUG - OTHER] TP SCH ×2 (08:40→21:10)
[2019-03-18] MEDS: RIFAXIMIN 550 MG TABLET GT SCH ×2 (08:40→17:01)
[2019-03-18] MEDS: DICLOFENAC TOPICAL 100 GM GEL..GM. TP SCH ×2 (08:41→17:01)
[2019-03-18] MEDS: HYDROGEN PEROXIDE 480 ML BOTTLE TP SCH ×2 (09:00→19:51)
[2019-03-18] MEDS: [UNRECOGNIZED DRUG - OTHER] TP SCH ×2 (13:00→21:06)
[2019-03-18 20:00] VITALS: BP 143/85
[2019-03-18 20:52] VITALS: BP 143/85
[2019-03-18] MEDS: LATANOPROST EYE DROP 0.005% 2.5 ML BOTTLE EACHEYE SCH (21:07)
[2019-03-18] MEDS: BENAZEPRIL HCL 5 MG TABLET GT SCH (21:08)
[2019-03-18] MEDS: PRAVASTATIN SODIUM 20 MG TABLET GT SCH (21:09)
[2019-03-18] MEDS: LORATADINE 10 MG TABLET GT SCH (21:10)
[2019-03-18] MEDS: GLYCOPYRROLATE 1 MG TABLET GT PRN (22:10)
--- NOTE | 2019-03-18 22:10 | NUR ---
RN NOTE AT FIRST AT BEDSIDE REQUESTED FOR GLYCOPYRROLATE THAN CHANGED HER MIND STATES " HES OKAY RIGHT NOW GIVE IT LATER" RETURNED MEDICATION TO OMNICELL. AT THIS TIME NOTED PATIENT WITH SECRETIONS AND NOW WANTS GLYCOPYRROLATE TO BE GIVEN , PRN GIVEN ORDERED, RT CALLED FOR SUCTION PRN, PATIENT REMAINS COMFORTABLE.
[2019-03-18] MEDS: JEVITY 1.2 CAL 1,000 ML BOTTLE GT PRN (22:48)
[2019-03-19] MEDS: IPRATROPIUM NEB FS 0.5 MG/2.5 ML AMPUL.NEB NEB SCH ×4 (02:00→19:54)
[2019-03-19] MEDS: CHLORHEXIDINE GLUCONATE 15 ML UDC MM SCH ×2 (05:11→17:20)
[2019-03-19 07:41] VITALS: BP 143/81
[2019-03-19] MEDS: HYDROGEN PEROXIDE 480 ML BOTTLE TP SCH ×2 (08:16→21:00)
[2019-03-19] MEDS: POTASSIUM CHLORIDE GT SCH (08:51)
[2019-03-19] MEDS: [UNRECOGNIZED DRUG - OTHER] TP SCH ×2 (08:51→20:46)
[2019-03-19] MEDS: BIOTIN 5000 MCG GT SCH (08:51)
[2019-03-19] MEDS: FINASTERIDE (5 MG) 5 MG TABLET GT SCH (08:51)
[2019-03-19] MEDS: RIFAXIMIN 550 MG TABLET GT SCH ×2 (08:51→17:20)
[2019-03-19] MEDS: CHOLECALCIFEROL (VITAMIN D 3) 400 UNIT TABLET GT SCH ×2 (08:51→20:45)
[2019-03-19] MEDS: VITAMINS A AND D 56.7 GM TUBE TP SCH ×2 (08:52→20:47)
[2019-03-19] MEDS: VITS A AND D/WHITE PET/LANOLIN 5 GM PACKET TP SCH ×4 (08:52→20:47)
[2019-03-19] MEDS: DICLOFENAC TOPICAL 100 GM GEL..GM. TP SCH ×2 (08:52→17:20)
[2019-03-19] MEDS: HYDROCODONE/APAP 7.5/325MG 1 EACH TABLET GT PRN (11:04)
[2019-03-19] MEDS: [UNRECOGNIZED DRUG - OTHER] TP SCH ×2 (13:00→20:46)
[2019-03-19 20:40] VITALS: BP 129/76
[2019-03-19] MEDS: LORATADINE 10 MG TABLET GT SCH (21:35)
[2019-03-19] MEDS: LATANOPROST EYE DROP 0.005% 2.5 ML BOTTLE EACHEYE SCH (21:35)
[2019-03-19] MEDS: PRAVASTATIN SODIUM 20 MG TABLET GT SCH (21:35)
[2019-03-19] MEDS: BENAZEPRIL HCL 5 MG TABLET GT SCH (21:35)
[2019-03-20] MEDS: IPRATROPIUM NEB FS 0.5 MG/2.5 ML AMPUL.NEB NEB SCH ×4 (01:27→20:00)
[2019-03-20] MEDS: CHLORHEXIDINE GLUCONATE 15 ML UDC MM SCH ×2 (06:12→18:53)
[2019-03-20 07:45] VITALS: BP 128/90
[2019-03-20] MEDS: POTASSIUM CHLORIDE GT SCH ×2 (08:32→09:00)
[2019-03-20] MEDS: BIOTIN 5000 MCG GT SCH ×2 (08:33→09:00)
[2019-03-20] MEDS: VITS A AND D/WHITE PET/LANOLIN 5 GM PACKET TP SCH ×4 (08:34→21:07)
[2019-03-20] MEDS: FINASTERIDE (5 MG) 5 MG TABLET GT SCH ×2 (08:34→09:00)
[2019-03-20] MEDS: [UNRECOGNIZED DRUG - OTHER] TP SCH ×2 (08:34→21:06)
[2019-03-20] MEDS: RIFAXIMIN 550 MG TABLET GT SCH ×3 (08:34→16:49)
[2019-03-20] MEDS: DICLOFENAC TOPICAL 100 GM GEL..GM. TP SCH ×2 (08:35→16:50)
[2019-03-20] MEDS: VITAMINS A AND D 56.7 GM TUBE TP SCH ×2 (08:35→21:07)
[2019-03-20] MEDS: CHOLECALCIFEROL (VITAMIN D 3) 400 UNIT TABLET GT SCH ×3 (08:36→21:06)
--- NOTE | 2019-03-20 08:45 | NUR ---
NOTED WITH 420 ML OF GASTRIC RESIDUAL,ABDOMEN IS SOFT NON TENDER,HAD ONE BOWEL MOVEMENT LAST NIGHT,HOLD THE AM MEDICINES AND G TUBE FEEDING FOR NOW.CHARGE NURSE MADE AWARE.CONTINUE TO MONITOR THE PT CLOSELY.
[2019-03-20] MEDS: HYDROGEN PEROXIDE 480 ML BOTTLE TP SCH ×2 (09:00→20:01)
--- NOTE | 2019-03-20 12:30 | NUR ---
noted wit gastric residual 60ml,resume gtube medicines and g tube feeding,pt tolerated well.
[2019-03-20] MEDS: [UNRECOGNIZED DRUG - OTHER] TP SCH ×2 (12:33→21:06)
[2019-03-20] MEDS: HYDROCODONE/APAP 7.5/325MG 1 EACH TABLET GT PRN (12:33)
[2019-03-20] MEDS: JEVITY 1.2 CAL 1,000 ML BOTTLE GT PRN (18:00)
[2019-03-20 20:25] VITALS: BP 127/76
[2019-03-20] MEDS: LATANOPROST EYE DROP 0.005% 2.5 ML BOTTLE EACHEYE SCH (21:07)
[2019-03-20] MEDS: LORATADINE 10 MG TABLET GT SCH (21:09)
[2019-03-20] MEDS: PRAVASTATIN SODIUM 20 MG TABLET GT SCH (21:10)
[2019-03-20] MEDS: BENAZEPRIL HCL 5 MG TABLET GT SCH (21:10)
[2019-03-21] MEDS: IPRATROPIUM NEB FS 0.5 MG/2.5 ML AMPUL.NEB NEB SCH ×4 (01:57→19:33)
[2019-03-21] MEDS: CHLORHEXIDINE GLUCONATE 15 ML UDC MM SCH ×2 (05:55→17:04)
[2019-03-21 08:23] VITALS: BP 121/76
[2019-03-21] MEDS: POTASSIUM CHLORIDE GT SCH (08:36)
[2019-03-21] MEDS: RIFAXIMIN 550 MG TABLET GT SCH ×2 (08:36→17:04)
[2019-03-21] MEDS: VITS A AND D/WHITE PET/LANOLIN 5 GM PACKET TP SCH ×4 (08:36→20:58)
[2019-03-21] MEDS: CHOLECALCIFEROL (VITAMIN D 3) 400 UNIT TABLET GT SCH ×2 (08:36→20:57)
[2019-03-21] MEDS: FINASTERIDE (5 MG) 5 MG TABLET GT SCH (08:36)
[2019-03-21] MEDS: BIOTIN 5000 MCG GT SCH (08:36)
[2019-03-21] MEDS: [UNRECOGNIZED DRUG - OTHER] TP SCH ×2 (08:36→20:57)
[2019-03-21] MEDS: VITAMINS A AND D 56.7 GM TUBE TP SCH ×2 (08:37→20:58)
[2019-03-21] MEDS: DICLOFENAC TOPICAL 100 GM GEL..GM. TP SCH ×2 (08:37→17:04)
[2019-03-21] MEDS: HYDROGEN PEROXIDE 480 ML BOTTLE TP SCH ×2 (09:00→19:33)
[2019-03-21] MEDS: HYDROCODONE/APAP 7.5/325MG 1 EACH TABLET GT PRN ×2 (11:33→21:39)
[2019-03-21] MEDS: [UNRECOGNIZED DRUG - OTHER] TP SCH ×2 (13:00→20:57)
[2019-03-21 20:23] VITALS: BP 132/87
[2019-03-21] MEDS: LATANOPROST EYE DROP 0.005% 2.5 ML BOTTLE EACHEYE SCH (21:37)
[2019-03-21] MEDS: BENAZEPRIL HCL 5 MG TABLET GT SCH (21:38)
[2019-03-21] MEDS: LORATADINE 10 MG TABLET GT SCH (21:38)
[2019-03-21] MEDS: PRAVASTATIN SODIUM 20 MG TABLET GT SCH (21:38)
[2019-03-22] MEDS: IPRATROPIUM NEB FS 0.5 MG/2.5 ML AMPUL.NEB NEB SCH ×4 (01:30→20:01)
[2019-03-22] MEDS: JEVITY 1.2 CAL 1,000 ML BOTTLE GT PRN (02:21)
[2019-03-22] MEDS: CHLORHEXIDINE GLUCONATE 15 ML UDC MM SCH ×2 (05:57→18:50)
[2019-03-22 07:38] VITALS: BP 133/77
[2019-03-22] MEDS: BIOTIN 5000 MCG GT SCH (08:03)
[2019-03-22] MEDS: CHOLECALCIFEROL (VITAMIN D 3) 400 UNIT TABLET GT SCH ×2 (08:03→21:57)
[2019-03-22] MEDS: FINASTERIDE (5 MG) 5 MG TABLET GT SCH (08:03)
[2019-03-22] MEDS: POTASSIUM CHLORIDE GT SCH (08:03)
[2019-03-22] MEDS: RIFAXIMIN 550 MG TABLET GT SCH ×2 (08:03→16:35)
[2019-03-22] MEDS: HYDROCODONE/APAP 7.5/325MG 1 EACH TABLET GT PRN (08:27)
[2019-03-22] MEDS: [UNRECOGNIZED DRUG - OTHER] TP SCH ×2 (09:00→21:57)
[2019-03-22] MEDS: DICLOFENAC TOPICAL 100 GM GEL..GM. TP SCH ×2 (09:00→16:36)
[2019-03-22] MEDS: HYDROGEN PEROXIDE 480 ML BOTTLE TP SCH ×2 (09:00→20:01)
[2019-03-22] MEDS: VITAMINS A AND D 56.7 GM TUBE TP SCH ×2 (09:00→21:58)
[2019-03-22] MEDS: VITS A AND D/WHITE PET/LANOLIN 5 GM PACKET TP SCH ×4 (09:00→21:58)
[2019-03-22] MEDS: MAGNESIUM HYDROXIDE 30 ML UDC GT PRN (12:03)
[2019-03-22] MEDS: [UNRECOGNIZED DRUG - OTHER] TP SCH ×2 (13:00→21:57)
[2019-03-22] MEDS: BISACODYL SUPP (10 MG) 10 MG/SUPP.RECT SUPP.RECT RC PRN (18:51)
[2019-03-22 20:11] VITALS: BP 143/77
[2019-03-22] MEDS: PRAVASTATIN SODIUM 20 MG TABLET GT SCH (21:58)
[2019-03-22] MEDS: LORATADINE 10 MG TABLET GT SCH (21:58)
[2019-03-22] MEDS: BENAZEPRIL HCL 5 MG TABLET GT SCH (21:58)
[2019-03-22] MEDS: LATANOPROST EYE DROP 0.005% 2.5 ML BOTTLE EACHEYE SCH (21:58)
[2019-03-23] MEDS: IPRATROPIUM NEB FS 0.5 MG/2.5 ML AMPUL.NEB NEB SCH ×4 (01:50→19:30)
[2019-03-23] MEDS: JEVITY 1.2 CAL 1,000 ML BOTTLE GT PRN (05:59)
[2019-03-23] MEDS: CHLORHEXIDINE GLUCONATE 15 ML UDC MM SCH ×2 (05:59→17:52)
[2019-03-23 07:52] VITALS: BP 127/70
[2019-03-23] MEDS: VITS A AND D/WHITE PET/LANOLIN 5 GM PACKET TP SCH ×4 (09:00→21:20)
[2019-03-23] MEDS: VITAMINS A AND D 56.7 GM TUBE TP SCH ×2 (09:00→21:20)
[2019-03-23] MEDS: DICLOFENAC TOPICAL 100 GM GEL..GM. TP SCH ×2 (09:00→17:53)
[2019-03-23] MEDS: HYDROGEN PEROXIDE 480 ML BOTTLE TP SCH ×2 (09:00→19:30)
[2019-03-23] MEDS: [UNRECOGNIZED DRUG - OTHER] TP SCH ×2 (09:00→21:20)
[2019-03-23] MEDS: FINASTERIDE (5 MG) 5 MG TABLET GT SCH (09:57)
[2019-03-23] MEDS: CHOLECALCIFEROL (VITAMIN D 3) 400 UNIT TABLET GT SCH ×2 (09:57→21:20)
[2019-03-23] MEDS: RIFAXIMIN 550 MG TABLET GT SCH ×2 (09:57→17:52)
[2019-03-23] MEDS: BIOTIN 5000 MCG GT SCH (09:57)
[2019-03-23] MEDS: POTASSIUM CHLORIDE GT SCH (09:57)
[2019-03-23] MEDS: [UNRECOGNIZED DRUG - OTHER] TP SCH ×2 (13:00→21:20)
[2019-03-23] MEDS: MAGNESIUM HYDROXIDE 30 ML UDC GT PRN (18:53)
[2019-03-23 20:31] VITALS: BP 132/84
[2019-03-23] MEDS: LATANOPROST EYE DROP 0.005% 2.5 ML BOTTLE EACHEYE SCH (21:20)
[2019-03-23] MEDS: LORATADINE 10 MG TABLET GT SCH (21:20)
[2019-03-23] MEDS: PRAVASTATIN SODIUM 20 MG TABLET GT SCH (21:21)
[2019-03-23] MEDS: BENAZEPRIL HCL 5 MG TABLET GT SCH (21:21)
[2019-03-24] MEDS: IPRATROPIUM NEB FS 0.5 MG/2.5 ML AMPUL.NEB NEB SCH ×4 (01:48→19:40)
[2019-03-24] MEDS: JEVITY 1.2 CAL 1,000 ML BOTTLE GT PRN ×2 (03:03→22:24)
[2019-03-24] MEDS: HYDROCODONE/APAP 7.5/325MG 1 EACH TABLET GT PRN ×2 (03:03→22:24)
[2019-03-24] MEDS: CHLORHEXIDINE GLUCONATE 15 ML UDC MM SCH ×2 (05:47→17:15)
[2019-03-24] MEDS: BISACODYL SUPP (10 MG) 10 MG/SUPP.RECT SUPP.RECT RC PRN (06:51)
[2019-03-24 07:56] VITALS: BP 134/82
[2019-03-24] MEDS: BIOTIN 5000 MCG GT SCH (08:17)
[2019-03-24] MEDS: POTASSIUM CHLORIDE GT SCH (08:17)
[2019-03-24] MEDS: VITAMINS A AND D 56.7 GM TUBE TP SCH ×2 (08:18→21:40)
[2019-03-24] MEDS: CHOLECALCIFEROL (VITAMIN D 3) 400 UNIT TABLET GT SCH ×2 (08:18→21:40)
[2019-03-24] MEDS: FINASTERIDE (5 MG) 5 MG TABLET GT SCH (08:18)
[2019-03-24] MEDS: VITS A AND D/WHITE PET/LANOLIN 5 GM PACKET TP SCH ×4 (08:18→21:40)
[2019-03-24] MEDS: DICLOFENAC TOPICAL 100 GM GEL..GM. TP SCH ×2 (08:18→17:14)
[2019-03-24] MEDS: RIFAXIMIN 550 MG TABLET GT SCH ×2 (08:18→17:14)
[2019-03-24] MEDS: [UNRECOGNIZED DRUG - OTHER] TP SCH ×2 (09:00→21:40)
[2019-03-24] MEDS: HYDROGEN PEROXIDE 480 ML BOTTLE TP SCH ×2 (09:00→21:00)
[2019-03-24] MEDS: [UNRECOGNIZED DRUG - OTHER] TP SCH ×2 (13:00→21:40)
[2019-03-24 20:25] VITALS: BP 129/82
[2019-03-24] MEDS: LORATADINE 10 MG TABLET GT SCH (21:40)
[2019-03-24] MEDS: LATANOPROST EYE DROP 0.005% 2.5 ML BOTTLE EACHEYE SCH (21:40)
[2019-03-24] MEDS: PRAVASTATIN SODIUM 20 MG TABLET GT SCH (21:41)
[2019-03-24] MEDS: BENAZEPRIL HCL 5 MG TABLET GT SCH (21:41)
[2019-03-24] MEDS: GLYCOPYRROLATE 1 MG TABLET GT PRN (22:24)
--- NOTE | 2019-03-25 00:21 | NUR ---
Seen and examined by ISABELA Pichardo no new order.
[2019-03-25] MEDS: IPRATROPIUM NEB FS 0.5 MG/2.5 ML AMPUL.NEB NEB SCH ×4 (01:14→20:10)
[2019-03-25] MEDS: CHLORHEXIDINE GLUCONATE 15 ML UDC MM SCH ×2 (06:04→17:46)
[2019-03-25 07:55] VITALS: BP 124/75
[2019-03-25] MEDS: FINASTERIDE (5 MG) 5 MG TABLET GT SCH (08:19)
[2019-03-25] MEDS: [UNRECOGNIZED DRUG - OTHER] TP SCH (08:19)
[2019-03-25] MEDS: VITS A AND D/WHITE PET/LANOLIN 5 GM PACKET TP SCH ×4 (08:19→21:22)
[2019-03-25] MEDS: RIFAXIMIN 550 MG TABLET GT SCH ×2 (08:19→17:46)
[2019-03-25] MEDS: CHOLECALCIFEROL (VITAMIN D 3) 400 UNIT TABLET GT SCH ×2 (08:19→21:24)
[2019-03-25] MEDS: BIOTIN 5000 MCG GT SCH (08:19)
[2019-03-25] MEDS: DICLOFENAC TOPICAL 100 GM GEL..GM. TP SCH ×2 (08:19→17:46)
[2019-03-25] MEDS: POTASSIUM CHLORIDE GT SCH (08:19)
[2019-03-25] MEDS: VITAMINS A AND D 56.7 GM TUBE TP SCH ×2 (08:19→21:24)
[2019-03-25] MEDS: HYDROGEN PEROXIDE 480 ML BOTTLE TP SCH ×2 (09:00→21:18)
[2019-03-25] MEDS: [UNRECOGNIZED DRUG - OTHER] TP SCH ×2 (12:28→21:22)
[2019-03-25] MEDS: HYDROCODONE/APAP 7.5/325MG 1 EACH TABLET GT PRN (12:37)
[2019-03-25 20:35] VITALS: BP 99/60
[2019-03-25] MEDS: LATANOPROST EYE DROP 0.005% 2.5 ML BOTTLE EACHEYE SCH (21:22)
[2019-03-25] MEDS: BENAZEPRIL HCL 5 MG TABLET GT SCH (21:23)
[2019-03-25] MEDS: LORATADINE 10 MG TABLET GT SCH (21:24)
[2019-03-25] MEDS: PRAVASTATIN SODIUM 20 MG TABLET GT SCH (21:27)
[2019-03-25] MEDS: JEVITY 1.2 CAL 1,000 ML BOTTLE GT PRN (23:54)
[2019-03-26] MEDS: IPRATROPIUM NEB FS 0.5 MG/2.5 ML AMPUL.NEB NEB SCH ×4 (01:33→19:18)
[2019-03-26] MEDS: CHLORHEXIDINE GLUCONATE 15 ML UDC MM SCH ×2 (05:49→18:49)
[2019-03-26 07:35] VITALS: BP 131/84
[2019-03-26] MEDS: BIOTIN 5000 MCG GT SCH (08:29)
[2019-03-26] MEDS: CHOLECALCIFEROL (VITAMIN D 3) 400 UNIT TABLET GT SCH ×2 (08:29→20:43)
[2019-03-26] MEDS: FINASTERIDE (5 MG) 5 MG TABLET GT SCH (08:29)
[2019-03-26] MEDS: RIFAXIMIN 550 MG TABLET GT SCH ×2 (08:29→16:42)
[2019-03-26] MEDS: VITAMINS A AND D 56.7 GM TUBE TP SCH ×2 (08:29→20:44)
[2019-03-26] MEDS: POTASSIUM CHLORIDE GT SCH (08:29)
[2019-03-26] MEDS: VITS A AND D/WHITE PET/LANOLIN 5 GM PACKET TP SCH ×4 (08:29→20:44)
[2019-03-26] MEDS: DICLOFENAC TOPICAL 100 GM GEL..GM. TP SCH ×2 (08:30→16:42)
[2019-03-26] MEDS: HYDROGEN PEROXIDE 480 ML BOTTLE TP SCH ×2 (09:00→21:00)
[2019-03-26] MEDS: [UNRECOGNIZED DRUG - OTHER] TP SCH ×2 (12:27→20:44)
[2019-03-26 20:43] VITALS: BP 141/87
[2019-03-26] MEDS: LATANOPROST EYE DROP 0.005% 2.5 ML BOTTLE EACHEYE SCH (21:56)
[2019-03-26] MEDS: LORATADINE 10 MG TABLET GT SCH (21:56)
[2019-03-26] MEDS: BENAZEPRIL HCL 5 MG TABLET GT SCH (21:57)
[2019-03-26] MEDS: PRAVASTATIN SODIUM 20 MG TABLET GT SCH (21:57)
[2019-03-27] MEDS: IPRATROPIUM NEB FS 0.5 MG/2.5 ML AMPUL.NEB NEB SCH ×4 (01:30→19:37)
[2019-03-27] MEDS: CHLORHEXIDINE GLUCONATE 15 ML UDC MM SCH ×2 (06:40→17:19)
[2019-03-27 08:06] VITALS: BP 111/74
[2019-03-27] MEDS: FINASTERIDE (5 MG) 5 MG TABLET GT SCH (08:11)
[2019-03-27] MEDS: POTASSIUM CHLORIDE GT SCH (08:11)
[2019-03-27] MEDS: BIOTIN 5000 MCG GT SCH (08:11)
[2019-03-27] MEDS: RIFAXIMIN 550 MG TABLET GT SCH ×2 (08:11→16:22)
[2019-03-27] MEDS: VITS A AND D/WHITE PET/LANOLIN 5 GM PACKET TP SCH ×4 (08:11→20:11)
[2019-03-27] MEDS: VITAMINS A AND D 56.7 GM TUBE TP SCH ×2 (08:11→20:11)
[2019-03-27] MEDS: CHOLECALCIFEROL (VITAMIN D 3) 400 UNIT TABLET GT SCH ×2 (08:11→20:11)
[2019-03-27] MEDS: DICLOFENAC TOPICAL 100 GM GEL..GM. TP SCH ×2 (08:11→16:22)
[2019-03-27] MEDS: HYDROGEN PEROXIDE 480 ML BOTTLE TP SCH ×2 (09:00→21:00)
[2019-03-27] MEDS: [UNRECOGNIZED DRUG - OTHER] TP SCH ×2 (12:40→20:11)
[2019-03-27] MEDS: JEVITY 1.2 CAL 1,000 ML BOTTLE GT PRN ×2 (14:00→22:35)
[2019-03-27 21:08] VITALS: BP 137/81
[2019-03-27] MEDS: PRAVASTATIN SODIUM 20 MG TABLET GT SCH (21:23)
[2019-03-27] MEDS: LORATADINE 10 MG TABLET GT SCH (21:23)
[2019-03-27] MEDS: LATANOPROST EYE DROP 0.005% 2.5 ML BOTTLE EACHEYE SCH (21:23)
[2019-03-27] MEDS: BENAZEPRIL HCL 5 MG TABLET GT SCH (21:23)
[2019-03-28] MEDS: IPRATROPIUM NEB FS 0.5 MG/2.5 ML AMPUL.NEB NEB SCH ×4 (01:15→19:58)
[2019-03-28] MEDS: CHLORHEXIDINE GLUCONATE 15 ML UDC MM SCH ×2 (06:07→17:23)
[2019-03-28] MEDS: HYDROCODONE/APAP 7.5/325MG 1 EACH TABLET GT PRN (06:08)
[2019-03-28 07:51] VITALS: BP 121/81
[2019-03-28] MEDS: BIOTIN 5000 MCG GT SCH (08:55)
[2019-03-28] MEDS: RIFAXIMIN 550 MG TABLET GT SCH ×2 (08:55→17:23)
[2019-03-28] MEDS: VITS A AND D/WHITE PET/LANOLIN 5 GM PACKET TP SCH ×4 (08:55→20:17)
[2019-03-28] MEDS: FINASTERIDE (5 MG) 5 MG TABLET GT SCH (08:55)
[2019-03-28] MEDS: POTASSIUM CHLORIDE GT SCH (08:55)
[2019-03-28] MEDS: CHOLECALCIFEROL (VITAMIN D 3) 400 UNIT TABLET GT SCH ×2 (08:55→20:16)
[2019-03-28] MEDS: DICLOFENAC TOPICAL 100 GM GEL..GM. TP SCH ×2 (08:56→17:23)
[2019-03-28] MEDS: VITAMINS A AND D 56.7 GM TUBE TP SCH ×2 (08:56→20:17)
[2019-03-28] MEDS: HYDROGEN PEROXIDE 480 ML BOTTLE TP SCH ×2 (09:00→21:23)
[2019-03-28] MEDS: [UNRECOGNIZED DRUG - OTHER] TP SCH ×2 (13:40→20:16)
[2019-03-28 19:52] VITALS: BP 133/80
[2019-03-28] MEDS: LATANOPROST EYE DROP 0.005% 2.5 ML BOTTLE EACHEYE SCH (21:42)
[2019-03-28] MEDS: LORATADINE 10 MG TABLET GT SCH (21:42)
[2019-03-28] MEDS: PRAVASTATIN SODIUM 20 MG TABLET GT SCH (21:42)
[2019-03-28] MEDS: BENAZEPRIL HCL 5 MG TABLET GT SCH (21:42)
[2019-03-29] MEDS: IPRATROPIUM NEB FS 0.5 MG/2.5 ML AMPUL.NEB NEB SCH ×4 (01:05→19:57)
[2019-03-29] MEDS: JEVITY 1.2 CAL 1,000 ML BOTTLE GT PRN (05:27)
[2019-03-29] MEDS: CHLORHEXIDINE GLUCONATE 15 ML UDC MM SCH (05:27)
[2019-03-29 07:50] VITALS: BP 130/76
[2019-03-29] MEDS: POTASSIUM CHLORIDE GT SCH (08:17)
[2019-03-29] MEDS: RIFAXIMIN 550 MG TABLET GT SCH ×2 (08:18→16:23)
[2019-03-29] MEDS: VITAMINS A AND D 56.7 GM TUBE TP SCH ×2 (08:18→20:26)
[2019-03-29] MEDS: BIOTIN 5000 MCG GT SCH (08:18)
[2019-03-29] MEDS: VITS A AND D/WHITE PET/LANOLIN 5 GM PACKET TP SCH ×4 (08:18→20:26)
[2019-03-29] MEDS: CHOLECALCIFEROL (VITAMIN D 3) 400 UNIT TABLET GT SCH ×2 (08:18→20:26)
[2019-03-29] MEDS: DICLOFENAC TOPICAL 100 GM GEL..GM. TP SCH ×2 (08:18→16:23)
[2019-03-29] MEDS: FINASTERIDE (5 MG) 5 MG TABLET GT SCH (08:18)
[2019-03-29] MEDS: HYDROCODONE/APAP 7.5/325MG 1 EACH TABLET GT PRN (08:19)
[2019-03-29] MEDS: HYDROGEN PEROXIDE 480 ML BOTTLE TP SCH ×2 (09:02→20:29)
[2019-03-29] MEDS: [UNRECOGNIZED DRUG - OTHER] TP SCH ×2 (13:00→20:26)
[2019-03-29 20:43] VITALS: BP 125/75
[2019-03-29] MEDS: LATANOPROST EYE DROP 0.005% 2.5 ML BOTTLE EACHEYE SCH (21:58)
[2019-03-29] MEDS: LORATADINE 10 MG TABLET GT SCH (21:58)
[2019-03-29] MEDS: BENAZEPRIL HCL 5 MG TABLET GT SCH (21:58)
[2019-03-29] MEDS: PRAVASTATIN SODIUM 20 MG TABLET GT SCH (21:58)
[2019-03-29] MEDS: MAGNESIUM HYDROXIDE 30 ML UDC GT PRN (23:07)
[2019-03-30] MEDS: IPRATROPIUM NEB FS 0.5 MG/2.5 ML AMPUL.NEB NEB SCH ×4 (01:08→20:03)
[2019-03-30] MEDS: JEVITY 1.2 CAL 1,000 ML BOTTLE GT PRN (05:50)
[2019-03-30] MEDS: CHLORHEXIDINE GLUCONATE 15 ML UDC MM SCH ×2 (05:57→18:00)
[2019-03-30 07:29] VITALS: BP 121/76
[2019-03-30] MEDS: HYDROGEN PEROXIDE 480 ML BOTTLE TP SCH ×2 (09:00→20:04)
[2019-03-30] MEDS: CHOLECALCIFEROL (VITAMIN D 3) 400 UNIT TABLET GT SCH ×2 (09:11→21:12)
[2019-03-30] MEDS: DICLOFENAC TOPICAL 100 GM GEL..GM. TP SCH ×2 (09:11→16:52)
[2019-03-30] MEDS: BIOTIN 5000 MCG GT SCH (09:11)
[2019-03-30] MEDS: VITAMINS A AND D 56.7 GM TUBE TP SCH ×2 (09:11→21:12)
[2019-03-30] MEDS: POTASSIUM CHLORIDE GT SCH (09:11)
[2019-03-30] MEDS: RIFAXIMIN 550 MG TABLET GT SCH ×2 (09:11→16:52)
[2019-03-30] MEDS: FINASTERIDE (5 MG) 5 MG TABLET GT SCH (09:11)
[2019-03-30] MEDS: VITS A AND D/WHITE PET/LANOLIN 5 GM PACKET TP SCH ×4 (09:11→21:12)
[2019-03-30] MEDS: [UNRECOGNIZED DRUG - OTHER] TP SCH ×2 (12:26→21:12)
[2019-03-30 20:10] VITALS: BP 130/79
[2019-03-30] MEDS: HYDROCODONE/APAP 7.5/325MG 1 EACH TABLET GT PRN (20:33)
[2019-03-30] MEDS: BENAZEPRIL HCL 5 MG TABLET GT SCH (21:12)
[2019-03-30] MEDS: PRAVASTATIN SODIUM 20 MG TABLET GT SCH (21:12)
[2019-03-30] MEDS: LATANOPROST EYE DROP 0.005% 2.5 ML BOTTLE EACHEYE SCH (21:12)
[2019-03-30] MEDS: LORATADINE 10 MG TABLET GT SCH (21:12)
[2019-03-30] MEDS: GLYCOPYRROLATE 1 MG TABLET GT PRN (21:13)
[2019-03-31] MEDS: IPRATROPIUM NEB FS 0.5 MG/2.5 ML AMPUL.NEB NEB SCH ×4 (01:57→19:42)
[2019-03-31] MEDS: JEVITY 1.2 CAL 1,000 ML BOTTLE GT PRN (03:00)
[2019-03-31] MEDS: CHLORHEXIDINE GLUCONATE 15 ML UDC MM SCH ×2 (05:46→17:43)
[2019-03-31] MEDS: SUMATRIPTAN SUCCINATE 25 MG TABLET GT PRN (05:46)
[2019-03-31 08:01] VITALS: BP 131/81
[2019-03-31] MEDS: BIOTIN 5000 MCG GT SCH (08:09)
[2019-03-31] MEDS: FINASTERIDE (5 MG) 5 MG TABLET GT SCH (08:09)
[2019-03-31] MEDS: CHOLECALCIFEROL (VITAMIN D 3) 400 UNIT TABLET GT SCH ×2 (08:09→20:40)
[2019-03-31] MEDS: RIFAXIMIN 550 MG TABLET GT SCH ×2 (08:09→17:42)
[2019-03-31] MEDS: POTASSIUM CHLORIDE GT SCH (08:09)
[2019-03-31] MEDS: HYDROGEN PEROXIDE 480 ML BOTTLE TP SCH ×2 (08:22→21:00)
[2019-03-31] MEDS: DICLOFENAC TOPICAL 100 GM GEL..GM. TP SCH ×2 (09:00→17:50)
[2019-03-31] MEDS: VITAMINS A AND D 56.7 GM TUBE TP SCH ×2 (09:00→20:40)
[2019-03-31] MEDS: VITS A AND D/WHITE PET/LANOLIN 5 GM PACKET TP SCH ×4 (09:00→20:40)
--- NOTE | 2019-03-31 09:00 | NUR ---
Resident will be weight on Wednesday04/03/19. Addendum: 04/02/19 at 1855 by MALLORY CHRISTOPHER RN Amended: Links added.
--- NOTE | 2019-03-31 09:20 | NUR ---
Seen and examined by Dr. Edwards, made aware that patient having low grade temperature of 100.3, with high gastric residual of 180 ml. According to patient's , patient complained of abdominal pain yesterday. Dr. Edwards did not order anything at this time, but said to monitor for patient 24 hours for now. Endorsed.
[2019-03-31] MEDS: ACETAMINOPHEN 650 MG/20 ML UDC- SA PATIENTS-PAIN ONLY GT PRN ×2 (11:41→20:44)
[2019-03-31] MEDS: [UNRECOGNIZED DRUG - OTHER] TP SCH ×2 (13:00→20:40)
[2019-03-31 20:26] VITALS: BP 102/62
--- NOTE | 2019-03-31 20:35 | NUR ---
pt temp 100.1, no c/o pain noted. no s/s of distress. offered cooling measures, refused. given tylenol 650 mg via gt per wifes request. all comfort measures rendered. will monitor closely.
[2019-03-31] MEDS: LORATADINE 10 MG TABLET GT SCH (21:21)
[2019-03-31] MEDS: BENAZEPRIL HCL 5 MG TABLET GT SCH (21:21)
[2019-03-31] MEDS: PRAVASTATIN SODIUM 20 MG TABLET GT SCH (21:21)
[2019-03-31] MEDS: LATANOPROST EYE DROP 0.005% 2.5 ML BOTTLE EACHEYE SCH (21:21)
--- NOTE | 2019-03-31 21:30 | NUR ---
pt appears calm and comfortable. no discomfort noted. temp 99.5. will continue to monitor.
[2019-04-01] MEDS: IPRATROPIUM NEB FS 0.5 MG/2.5 ML AMPUL.NEB NEB SCH ×4 (01:45→20:06)
[2019-04-01] MEDS: JEVITY 1.2 CAL 1,000 ML BOTTLE GT PRN (03:54)
[2019-04-01] MEDS: CHLORHEXIDINE GLUCONATE 15 ML UDC MM SCH ×2 (05:38→18:37)
--- NOTE | 2019-04-01 06:34 | NUR ---
pt asleep, calm. no s/s of discomfort. temp 98.5. all needs attended. will endorse to oncoming shift.
[2019-04-01 08:01] VITALS: BP 117/81
[2019-04-01] MEDS: FINASTERIDE (5 MG) 5 MG TABLET GT SCH (08:56)
[2019-04-01] MEDS: VITS A AND D/WHITE PET/LANOLIN 5 GM PACKET TP SCH ×4 (08:56→21:00)
[2019-04-01] MEDS: CHOLECALCIFEROL (VITAMIN D 3) 400 UNIT TABLET GT SCH ×2 (08:56→21:00)
[2019-04-01] MEDS: VITAMINS A AND D 56.7 GM TUBE TP SCH ×2 (08:56→21:00)
[2019-04-01] MEDS: RIFAXIMIN 550 MG TABLET GT SCH ×2 (08:56→16:15)
[2019-04-01] MEDS: DICLOFENAC TOPICAL 100 GM GEL..GM. TP SCH ×2 (08:56→16:15)
[2019-04-01] MEDS: POTASSIUM CHLORIDE GT SCH (08:56)
[2019-04-01] MEDS: BIOTIN 5000 MCG GT SCH (08:56)
[2019-04-01] MEDS: HYDROGEN PEROXIDE 480 ML BOTTLE TP SCH ×2 (09:00→21:00)
--- NOTE | 2019-04-01 11:30 | NUR ---
Left a message to Dr. Edwards that per night worker resident has low grade fever, medicated with Tylenol per 's request PRN for pain. Urine output with foul odor, awaiting for MD's response, current T 98.5.
[2019-04-01] MEDS: [UNRECOGNIZED DRUG - OTHER] TP SCH ×2 (13:14→21:00)
--- NOTE | 2019-04-01 19:28 | NUR ---
RESIDENT HAD LOW GRADE TEMP LAST NIGHT, DURING MY SHIFT TEMP AXILLARY WAS 98.5, NO COMPLAIN OF PAIN OR DISCOMFORT, RESIDENT UP IN WHEELCHAIR WENT DOWN TO THE [place]FETERIA WITH , TOLERATED WELL. @7PM LATEST TEMP 98.8F, WILL CONTINUE TO MONITOR RESIDENT.
[2019-04-01 20:04] VITALS: BP 125/73
[2019-04-01] MEDS: LORATADINE 10 MG TABLET GT SCH (22:00)
[2019-04-01] MEDS: PRAVASTATIN SODIUM 20 MG TABLET GT SCH (22:00)
[2019-04-01] MEDS: BENAZEPRIL HCL 5 MG TABLET GT SCH (22:00)
[2019-04-01] MEDS: LATANOPROST EYE DROP 0.005% 2.5 ML BOTTLE EACHEYE SCH (22:00)
--- NOTE | 2019-04-02 01:24 | NUR ---
Gastric residual 350ml yellowish in color,held feeding per order @ 2200.Re check gastric residual @ 200ml,re started feeding ,HOB elevated will continue to monitor.Will continue to monitor.
[2019-04-02] MEDS: IPRATROPIUM NEB FS 0.5 MG/2.5 ML AMPUL.NEB NEB SCH ×4 (02:08→19:30)
[2019-04-02] MEDS: CHLORHEXIDINE GLUCONATE 15 ML UDC MM SCH ×2 (05:43→17:50)
[2019-04-02 07:51] VITALS: BP 137/92
[2019-04-02] MEDS: POTASSIUM CHLORIDE GT SCH (08:36)
[2019-04-02] MEDS: BIOTIN 5000 MCG GT SCH (08:37)
[2019-04-02] MEDS: CHOLECALCIFEROL (VITAMIN D 3) 400 UNIT TABLET GT SCH ×2 (08:37→21:29)
[2019-04-02] MEDS: FINASTERIDE (5 MG) 5 MG TABLET GT SCH (08:37)
[2019-04-02] MEDS: RIFAXIMIN 550 MG TABLET GT SCH ×2 (08:37→17:49)
[2019-04-02] MEDS: HYDROGEN PEROXIDE 480 ML BOTTLE TP SCH ×2 (09:00→21:29)
[2019-04-02] MEDS: VITS A AND D/WHITE PET/LANOLIN 5 GM PACKET TP SCH ×4 (09:05→21:30)
[2019-04-02] MEDS: VITAMINS A AND D 56.7 GM TUBE TP SCH ×2 (09:06→21:30)
[2019-04-02] MEDS: DICLOFENAC TOPICAL 100 GM GEL..GM. TP SCH ×2 (09:06→17:49)
[2019-04-02] MEDS: [UNRECOGNIZED DRUG - OTHER] TP SCH ×2 (13:00→21:30)
--- NOTE | 2019-04-02 15:27 | NUR ---
Pt was seen by Dr Edwards. Informed him of pt's gastric residual of 350 mL last night and 60 mL today. Pt's at bedside. Dr Edwards ordered to give Reglan 5 mg GT q 6 hours PRN for abdominal discomfort.
[2019-04-02 20:47] VITALS: BP 145/70
[2019-04-02] MEDS: BENAZEPRIL HCL 5 MG TABLET GT SCH (21:30)
[2019-04-02] MEDS: PRAVASTATIN SODIUM 20 MG TABLET GT SCH (21:30)
[2019-04-02] MEDS: LATANOPROST EYE DROP 0.005% 2.5 ML BOTTLE EACHEYE SCH (21:30)
[2019-04-02] MEDS: LORATADINE 10 MG TABLET GT SCH (21:30)
[2019-04-03] MEDS: IPRATROPIUM NEB FS 0.5 MG/2.5 ML AMPUL.NEB NEB SCH ×4 (00:48→19:40)
[2019-04-03] MEDS: CHLORHEXIDINE GLUCONATE 15 ML UDC MM SCH ×2 (06:19→18:07)
[2019-04-03] MEDS: JEVITY 1.2 CAL 1,000 ML BOTTLE GT PRN (07:44)
[2019-04-03 07:58] VITALS: BP 142/81
[2019-04-03] MEDS: HYDROGEN PEROXIDE 480 ML BOTTLE TP SCH ×2 (08:20→21:11)
[2019-04-03] MEDS: BIOTIN 5000 MCG GT SCH (08:24)
[2019-04-03] MEDS: CHOLECALCIFEROL (VITAMIN D 3) 400 UNIT TABLET GT SCH ×2 (08:24→21:10)
[2019-04-03] MEDS: POTASSIUM CHLORIDE GT SCH (08:24)
[2019-04-03] MEDS: VITS A AND D/WHITE PET/LANOLIN 5 GM PACKET TP SCH ×4 (08:24→21:11)
[2019-04-03] MEDS: RIFAXIMIN 550 MG TABLET GT SCH ×2 (08:24→17:00)
[2019-04-03] MEDS: FINASTERIDE (5 MG) 5 MG TABLET GT SCH (08:24)
[2019-04-03] MEDS: VITAMINS A AND D 56.7 GM TUBE TP SCH ×2 (08:25→21:11)
[2019-04-03] MEDS: DICLOFENAC TOPICAL 100 GM GEL..GM. TP SCH ×2 (08:25→17:00)
[2019-04-03] MEDS: [UNRECOGNIZED DRUG - OTHER] TP SCH ×2 (13:45→21:11)
--- NOTE | 2019-04-03 14:30 | NUR ---
Seen by Dr Edwards. SOLEDAD Kinsey informed him that pt's gastric residual is [address] Edwards said to give Reglan and do a bladder scan. Bladder scan showed 240 mL or urine.
[2019-04-03] MEDS: METOCLOPRAMIDE HCL 10 MG TABLET GT PRN (14:57)
[2019-04-03 20:41] VITALS: BP 125/82
[2019-04-03] MEDS: LORATADINE 10 MG TABLET GT SCH (21:11)
[2019-04-03] MEDS: LATANOPROST EYE DROP 0.005% 2.5 ML BOTTLE EACHEYE SCH (21:11)
[2019-04-03] MEDS: PRAVASTATIN SODIUM 20 MG TABLET GT SCH (21:15)
[2019-04-03] MEDS: BENAZEPRIL HCL 5 MG TABLET GT SCH (21:15)
[2019-04-04] MEDS: IPRATROPIUM NEB FS 0.5 MG/2.5 ML AMPUL.NEB NEB SCH ×4 (00:53→19:53)
[2019-04-04] MEDS: CHLORHEXIDINE GLUCONATE 15 ML UDC MM SCH ×2 (05:37→17:50)
[2019-04-04 07:45] VITALS: BP 147/87
[2019-04-04] MEDS: POTASSIUM CHLORIDE GT SCH (08:01)
[2019-04-04] MEDS: CHOLECALCIFEROL (VITAMIN D 3) 400 UNIT TABLET GT SCH ×2 (08:01→21:19)
[2019-04-04] MEDS: RIFAXIMIN 550 MG TABLET GT SCH ×2 (08:01→16:23)
[2019-04-04] MEDS: BIOTIN 5000 MCG GT SCH (08:01)
[2019-04-04] MEDS: FINASTERIDE (5 MG) 5 MG TABLET GT SCH (08:01)
[2019-04-04] MEDS: METOCLOPRAMIDE HCL 10 MG TABLET GT PRN (08:02)
--- NOTE | 2019-04-04 08:02 | NUR ---
Resident complaining of abdominal discomfort, abdomen soft, gtube patent, gastric residual 340ml, feeding on hold, and reglan 5mg prn was given, charge nurse aware.
[2019-04-04] MEDS: DICLOFENAC TOPICAL 100 GM GEL..GM. TP SCH ×2 (09:00→16:23)
[2019-04-04] MEDS: HYDROGEN PEROXIDE 480 ML BOTTLE TP SCH ×2 (09:00→20:22)
[2019-04-04] MEDS: VITAMINS A AND D 56.7 GM TUBE TP SCH ×2 (09:00→21:20)
[2019-04-04] MEDS: VITS A AND D/WHITE PET/LANOLIN 5 GM PACKET TP SCH ×4 (09:00→21:20)
--- NOTE | 2019-04-04 10:00 | NUR ---
RECHECKED GASTRIC RESIDUAL 240ML, FEEDING WILL REMAIN OFF. CHARGE NURSE AWARE.
--- NOTE | 2019-04-04 12:00 | NUR ---
RE-ASSESS RESIDENT REGARDING GASTRIC RESIDUAL, 250ML, FEEDING HOLD PER ORDER, COLOR OF RESIDUAL YELLOW, NO VOMITING, ABDOMEN SOFT, NON-DISTENDED, CHARGE NURSE AWARE.
[2019-04-04] MEDS: [UNRECOGNIZED DRUG - OTHER] TP SCH ×2 (12:40→21:20)
--- NOTE | 2019-04-04 14:00 | NUR ---
RE-ASSESS RESIDENT, GASTRIC RESIDUAL HAS DECREASED TO 60ML, ABDOMEN SOFT NON-DISTENDED, NO VOMITING, WILL RESUME FEEDING, CHARGE NURSE AWARE, AND AWARE, AT BEDSIDE.
--- NOTE | 2019-04-04 15:47 | NUR ---
Left a message to Dr. Edwards that patient has high gastric residual at 8am = 340 ml, Reglan given and feeding held. At 1530, gastric residual = 250 ml, Reglan given. Will continue to monitor gastric residual and resume feeding as indicated.
[2019-04-04] MEDS: MAGNESIUM HYDROXIDE 30 ML UDC GT PRN (18:48)
--- NOTE | 2019-04-04 19:14 | NUR ---
SEEN AND EXAMINED BY ISABELA BUENROSTRO. FISH PACKER IS MADE AWARE OF CURRENT WEIGHT. ISABELA GOLL WITH NO NEW ORDERS.
[2019-04-04] MEDS: PRAVASTATIN SODIUM 20 MG TABLET GT SCH (21:20)
[2019-04-04] MEDS: BENAZEPRIL HCL 5 MG TABLET GT SCH (21:20)
[2019-04-04] MEDS: LATANOPROST EYE DROP 0.005% 2.5 ML BOTTLE EACHEYE SCH (21:20)
[2019-04-04] MEDS: LORATADINE 10 MG TABLET GT SCH (21:20)
[2019-04-05] MEDS: IPRATROPIUM NEB FS 0.5 MG/2.5 ML AMPUL.NEB NEB SCH ×4 (01:09→20:06)
[2019-04-05] MEDS: CHLORHEXIDINE GLUCONATE 15 ML UDC MM SCH ×2 (05:54→18:35)
[2019-04-05 07:55] VITALS: BP 130/91
[2019-04-05] MEDS: POTASSIUM CHLORIDE GT SCH (08:38)
[2019-04-05] MEDS: BIOTIN 5000 MCG GT SCH (08:38)
[2019-04-05] MEDS: FINASTERIDE (5 MG) 5 MG TABLET GT SCH (08:38)
[2019-04-05] MEDS: RIFAXIMIN 550 MG TABLET GT SCH ×2 (08:39→16:41)
[2019-04-05] MEDS: CHOLECALCIFEROL (VITAMIN D 3) 400 UNIT TABLET GT SCH ×2 (08:39→20:51)
--- NOTE | 2019-04-05 08:59 | NUR ---
[facility] Family Support Group late entry for 04/04/19: SW reminded patient's responsible alliance party,Asha [phone] of the [facility] Family Support group taking place 04/05/19 from 11am-12pm in the old admin. conference room. Per Asha, she will try to make it.
[2019-04-05] MEDS: DICLOFENAC TOPICAL 100 GM GEL..GM. TP SCH ×2 (09:00→16:41)
[2019-04-05] MEDS: VITS A AND D/WHITE PET/LANOLIN 5 GM PACKET TP SCH ×4 (09:00→20:51)
[2019-04-05] MEDS: HYDROGEN PEROXIDE 480 ML BOTTLE TP SCH ×2 (09:00→21:00)
[2019-04-05] MEDS: VITAMINS A AND D 56.7 GM TUBE TP SCH ×2 (09:00→20:51)
--- NOTE | 2019-04-05 11:00 | NUR ---
Patients' verbalized concern that her is very weak, patients' still wants her to be out of bed and up in wheelchair. Patient up in wheel chair, unable to ambulate with RNA, Patient sleepy too at this time. Temp this morning was 98. Per med nurse GT residual checked was 20 ml only. Abdomen soft to touch and not distended. Voiding freely. Patients' feeding off at this time while up in wheel chair. Explained to patients' that MD has been notified of GT residual and has orders. vital signs now 132/95, 76,20, temp 97.8. Reiterated to patients' that patient needs to stay in bed at this time due to sleepiness and weakness. Patient opened his eyes when his name called. Per she stated that her will be back to bed. Patient closely monitored.
--- NOTE | 2019-04-05 11:30 | NUR ---
Patient put back to bed, he is alert, not in distress, suctioned and has moderate amount of pale yellow thick secretions. Kept HOB elevated at all times. Patients' residual at this time 120, resumed GT feeding, tolerating well. No nausea and vomiting. Abdomen soft to touch and not distended. RT put patient on cool aerosol 28% at this time for comfort measures 02 sat 91%. Patient closely monitored. Patients' at bedside.
--- NOTE | 2019-04-05 11:30 | NUR ---
PLACED BACK TO 28% FIO2 VIA COOL AEROSOL DUE TO 91 - 93% SPO2 IN ROOM AIR. Addendum: 04/05/19 at 1235 by TELLY AGRAWAL RT Amended: Links added.
[2019-04-05] MEDS: [UNRECOGNIZED DRUG - OTHER] TP SCH ×2 (12:16→20:51)
--- NOTE | 2019-04-05 12:46 | NUR ---
FAMILY SUPPORT GROUP NOTE: Goal: Residents family will attend family support group held Friday, April 05, 2019 from 11 am-12 pm. Intervention: SW facilitated family support group. SW defined the function of the family support group. SW explored the familys support systems. SW provided validation, used reflective listening. SW explored familys positive coping mechanisms when dealing with stress. SW educated family on other positive coping mechanisms that can be used including: journaling, venting to a close friend or family and moderate exercise. SW recognized Asha for her openness and honesty. Response: Asha is Albanian speaking only. Asha expressed understanding support group functions. Asha expressed that her support system consists of her three daughters. However, per Asha, she does not like to share a lot of her worries with her daughters as she does not want to stress them out. Per Asha, she uses praying and crying as positive coping mechanisms to deal with stress. Asha stated, Those are good ideas, I should walk more to de-stress as it also benefits my health. Plan: Family will be invited to attend next family support Group held May 03 20192018 11 am-12 pm.
[2019-04-05 20:06] VITALS: BP 143/94
[2019-04-05] MEDS: METOCLOPRAMIDE HCL 10 MG TABLET GT PRN (21:00)
--- NOTE | 2019-04-05 21:00 | NUR ---
Gastric residual 225ml,Reglan 5mg vis gt given PRN for abdominal discomfort. at bedside and requesting if we can ask the doctor to order blood works because patient been weak and episodes aonf increased residual and BP on high side than usual.Will notify MD in AM and will endorsed.
[2019-04-05] MEDS: LATANOPROST EYE DROP 0.005% 2.5 ML BOTTLE EACHEYE SCH (22:01)
[2019-04-05] MEDS: LORATADINE 10 MG TABLET GT SCH (22:01)
[2019-04-05] MEDS: BENAZEPRIL HCL 5 MG TABLET GT SCH (22:02)
[2019-04-05] MEDS: PRAVASTATIN SODIUM 20 MG TABLET GT SCH (22:02)
[2019-04-06] MEDS: JEVITY 1.2 CAL 1,000 ML BOTTLE GT PRN (00:48)
--- NOTE | 2019-04-06 02:00 | NUR ---
Patient temp 100.2 ,increased secretions noted. Cooling measures provided.Patients looks weak.No distress noted.Per RT needs to increased Fi02 to 40% d/t low O2 sats low 90's.Will continue to monitor.
[2019-04-06] MEDS: IPRATROPIUM NEB FS 0.5 MG/2.5 ML AMPUL.NEB NEB SCH ×4 (02:15→19:46)
--- NOTE | 2019-04-06 06:02 | NUR ---
Temp re check 99.8.Residual 350ml hold feeding for now and will check again in one hour.HOB elevated to prevent aspiration,no emesis noted. Will continue to monitor.
[2019-04-06] MEDS: CHLORHEXIDINE GLUCONATE 15 ML UDC MM SCH ×2 (06:28→17:42)
[2019-04-06 08:01] VITALS: BP 147/92
[2019-04-06] MEDS: HYDROGEN PEROXIDE 480 ML BOTTLE TP SCH ×2 (08:07→20:09)
[2019-04-06] MEDS: VITS A AND D/WHITE PET/LANOLIN 5 GM PACKET TP SCH ×4 (08:52→21:03)
[2019-04-06] MEDS: RIFAXIMIN 550 MG TABLET GT SCH ×2 (08:52→17:41)
[2019-04-06] MEDS: BIOTIN 5000 MCG GT SCH (08:52)
[2019-04-06] MEDS: CHOLECALCIFEROL (VITAMIN D 3) 400 UNIT TABLET GT SCH ×2 (08:52→21:03)
[2019-04-06] MEDS: FINASTERIDE (5 MG) 5 MG TABLET GT SCH (08:52)
[2019-04-06] MEDS: POTASSIUM CHLORIDE GT SCH (08:52)
[2019-04-06] MEDS: DICLOFENAC TOPICAL 100 GM GEL..GM. TP SCH ×2 (08:53→17:42)
[2019-04-06] MEDS: VITAMINS A AND D 56.7 GM TUBE TP SCH ×2 (08:53→21:03)
[2019-04-06] MEDS: [UNRECOGNIZED DRUG - OTHER] TP SCH ×2 (13:36→21:03)
[2019-04-06] MEDS: LATANOPROST EYE DROP 0.005% 2.5 ML BOTTLE EACHEYE SCH (21:03)
[2019-04-06] MEDS: LORATADINE 10 MG TABLET GT SCH (21:04)
[2019-04-06] MEDS: PRAVASTATIN SODIUM 20 MG TABLET GT SCH (21:04)
[2019-04-06] MEDS: BENAZEPRIL HCL 5 MG TABLET GT SCH (22:29)
[2019-04-07] MEDS: IPRATROPIUM NEB FS 0.5 MG/2.5 ML AMPUL.NEB NEB SCH ×3 (00:51→13:04)
[2019-04-07 04:44] VITALS: BP 128/83
[2019-04-07] MEDS: CHLORHEXIDINE GLUCONATE 15 ML UDC MM SCH (05:35)
[2019-04-07] MEDS: METOCLOPRAMIDE HCL 10 MG TABLET GT PRN (05:36)
[2019-04-07] MEDS: ACETAMINOPHEN 650 MG/20 ML UDC- SA PATIENTS-PAIN ONLY GT PRN (05:41)
--- NOTE | 2019-04-07 06:11 | NUR ---
PT NOTED SHIVERING,TEMP 101.2 ,HR 114,BP 124/78,02 SATS 97% ON 28%.COOLING MEASURES PROVIDED AND TYLENOL GIVEN VIA GT.GASTRIC RESIDUAL 275ML,HOLD FEEDING AND REGLAN 5MG VIA GT GIVEN.HOB ELEVATED.WILL CONTINUE TO MONITOR AND WILL ENDORSED.
--- NOTE | 2019-04-07 07:45 | NUR ---
Notified Dr. Edwards of patient's elevated temp 101.8, HR 115, RR 14, )2 sat 95%, BP 136/81. Gastric residual at 5211=303 ml., cooling measures provided. Awaiting for MD's response.
[2019-04-07 07:49] VITALS: BP 136/81
[2019-04-07] MEDS: HYDROGEN PEROXIDE 480 ML BOTTLE TP SCH (08:14)
[2019-04-07] MEDS: CHOLECALCIFEROL (VITAMIN D 3) 400 UNIT TABLET GT SCH (09:03)
[2019-04-07] MEDS: FINASTERIDE (5 MG) 5 MG TABLET GT SCH (09:03)
[2019-04-07] MEDS: POTASSIUM CHLORIDE GT SCH (09:03)
[2019-04-07] MEDS: VITAMINS A AND D 56.7 GM TUBE TP SCH (09:03)
[2019-04-07] MEDS: BIOTIN 5000 MCG GT SCH (09:03)
[2019-04-07] MEDS: DICLOFENAC TOPICAL 100 GM GEL..GM. TP SCH (09:03)
[2019-04-07] MEDS: VITS A AND D/WHITE PET/LANOLIN 5 GM PACKET TP SCH ×2 (09:03)
[2019-04-07] MEDS: RIFAXIMIN 550 MG TABLET GT SCH (09:03)
--- NOTE | 2019-04-07 09:20 | NUR ---
Placed a call to Dr. Edwards's office, requesting MD to be paged. According to staff, Dr Valentin is covering for Dr. Edwards. Awaiting for to call back to relay patient's condition.
--- NOTE | 2019-04-07 10:19 | NUR ---
Placed a follow-up call to Dr. Edwards's salon professional, spoke with Zamzam to report patient's condition. Awaiting for call back. Meanwhile resident's informed.
--- NOTE | 2019-04-07 10:25 | NUR ---
Received a call back from Dr. Valentin and reported patient's condition with elevated T 101.8, HR 115-116, gastric residual 300ml. Dr. Valentin ordered to give Tylenol Q 4hours PRN for T>99. BC x2, CBC, BMP, UA and CS and portable X-ray. According to Dr. Valentin, will treat underlying cause of tachycardia, meanwhile to notify MD of lab result and will go from there. Resident's informed.
[2019-04-07 11:41] VITALS: BP 102/58
[2019-04-07 11:47] LABS: BASOPHILS # (AUTO) 0.3 /CMM (0.0-0.2); BASOPHILS % (AUTO) 1.3 % (0.0-2.0); EOSINOPHILS % (AUTO) 0.1 % (0.0-6.0); HEMATOCRIT 48 % (39-51); LYMPHOCYTES # (AUTO) 0.5 /CMM (0.8-4.8); LYMPHOCYTES % (AUTO) 2.5 % (20.0-44.0); MEAN CORPUSCULAR HGB CONC 34 g/dl (31.0-36.0); MEAN CORPUSCULAR VOLUME 98 fL (80-96); MONOCYTES # (AUTO) 0.8 /CMM (0.1-1.30); MONOCYTES % (AUTO) 4.1 % (2.0-12.0); NEUTROPHILS # (AUTO) 17.8 /CMM (1.8-8.9); PLATELET COUNT (AUTO) 127 /CMM (150-450); RED BLOOD CELL COUNT(AUTO) 4.88 MIL/uL (4.5-6.0); WHITE BLOOD COUNT (AUTO) 19.3 K/uL (4.3-11.0)
[2019-04-07] MEDS ORDERED: ACETAMINOPHEN 650 MG/20 ML UDC- SA PATIENTS-FEVER ONLY GT PRN (12:00)
[2019-04-07 12:25] LABS: CARBON DIOXIDE 25 mmol/L (21-32); CHLORIDE 103 mmol/L (98-107); CREATININE 1.1 mg/dL (0.6-1.3); GLUCOSE 140 mg/dL (74-106); SODIUM SERUM 136 mmol/L (136-145); UREA NITROGEN, BLOOD 27 mg/dL (7-18)
[2019-04-07 13:02] LABS: BAND % (MANUAL) 6 % (0.0-5.0); LYMPHOCYTES % (MANUAL) 2 % (16-48); MONOCYTES % (MANUAL) 3 % (0-11.0); NEUTROPHILS % (MANUAL) 89 (42-76)
[2019-04-07] MEDS: [UNRECOGNIZED DRUG - OTHER] TP SCH (13:19)
--- NOTE | 2019-04-07 14:07 | NUR ---
Left a message to Dr. Meza re: CBC, BMP and Chest X ray result with WBC of 19.3, Awaiting for call back. Resident in bed, lethargic, at bedside.
[2019-04-07 15:08] LABS: APPEARANCE,URINE SL CLOUDY (CLEAR); BILIRUBIN,URINE NEGATIVE (NEGATIVE); BLOOD, URINE 2+ Ery/uL (NEGATIVE); COLOR,URINE YELLOW (YELLOW); KETONES,URINE TRACE (NEGATIVE); LEUKOCYTE ESTERASE ,URINE 1+ (NEGATIVE); NITRITE, URINE POSITIVE (NEGATIVE); PROTEIN,URINE 1+ mg/dl (NEGATIVE); UGLUCOSE NEGATIVE (NEGATIVE)
[2019-04-07 15:16] LABS: RBC,URINE 21-50 /HPF (0-2); WBC,URINE 81-100 /HPF (0-3)
[2019-04-07 15:17] LABS: BACTERIA,URINE 4+ /HPF (None Seen); SQUAMOUS EPITHELIAL CELL,UR Few /HPF (None Seen)
--- NOTE | 2019-04-07 15:20 | NUR ---
Spoke with Dr. Meza and reported CBC, BMP and CXRY result, WBC 19.3, UA pending. With order to transfer patient to ER for evaluation due to fever, leukocytosis and possibly UTI. Resident's at bedside and explained to Mrs. Lopez the the reason for transfer. Nursing supervisor body assembly informed and report given to SOLE Longoria in ED.
--- NOTE | 2019-04-07 16:00 | NUR ---
Resident transferred to ER via bed, accompanied by an RT, RN and CORRECTIONAL PROGRAM OFFICER during transport. Report given to receiving RN Jacob, patient with episode of high gastric residual, urine specimen collected, result pending. Patient responsive to stimulation, lethargic and weak. No s/s of acute respiratory cardio distress. Stable at this time, 112/76, 87, 98.3, RR16, O2 sat. 96% at Fi02 28%.
[2019-04-07] MEDS ORDERED: POTA20LI5 GT (16:31)
[2019-04-07] MEDS ORDERED: PRAV20TA4 GT (16:31)
[2019-04-07] MEDS ORDERED: FINA5TAB11 GT (16:31)
[2019-04-07] MEDS ORDERED: CHOL400T11 GT (16:31)
[2019-04-07] MEDS ORDERED: SUMA100T16 GT (16:31)
[2019-04-07] MEDS ORDERED: ALBU1.257 IH (16:31)
[2019-04-07] MEDS ORDERED: ACET-868 GT (16:31)
[2019-04-07] MEDS ORDERED: LORA10TA7 GT (16:31)
[2019-04-07] MEDS ORDERED: BENA20TA9 GT (16:31)
[2019-04-07] MEDS ORDERED: BIOT25008 GT (16:31)
[2019-04-07] MEDS ORDERED: DICL100G16 TP (16:31)
[2019-04-07] MEDS ORDERED: HYDR-3976 GT (16:31)
[2019-04-07] MEDS ORDERED: ONDA4TAB5 GT (16:31)
[2019-04-07] MEDS ORDERED: BISA10SU12 RC (16:31)
[2019-04-07] MEDS ORDERED: RIFA550T GT (16:31)
[2019-04-07] MEDS ORDERED: GLYC2TAB21 GT (16:31)
[2019-04-07] MEDS ORDERED: NITR0.4T48 SL (16:31)
[2019-04-07] MEDS ORDERED: VITA56.7 TP (16:31)
[2019-04-07] MEDS ORDERED: IPRA0.2S9 IH ×2 (16:31)
[2019-04-07] MEDS ORDERED: LATA2.5D7 EACHEYE (16:31)
[2019-04-07] MEDS ORDERED: METO5SOL GT (16:31)
[2019-04-07] MEDS ORDERED: HYDR1SOL TP (16:31)
--- NOTE | 2019-04-11 13:30 | NUR ---
Readmitted pt from [facility]. Pt was awake upon admission, at bedside. Pt on cool aerosol 28% FiO2, no respiratory distress noted. T 97.7 BP 140/76 HR 53 R 16 O2 sat 99%. Started GT feeding Jevity 1.2 at 40 mL/hr, goal rate is 60 mL/hr. According to report from [facility] nurse Milli, pt had gastric residuals of 400 and 200 mL this morning, and to recheck gastric residual again at 1815. She also reported that pt had a soft bowel movement today. Pt made clean and comfortable in bed. HOB elevated as aspiration precaution. No pain or discomfort noted. Orders verified with Dr Meza (java consultant for Dr Edwards). Dr Meza ordered to give Amoxicillin until 04/22/19. He also said to continue SCD to bilateral lower extremities.
--- NOTE | 2019-04-11 13:40 | NUR ---
RT RECD PT FROM [facility], SET -UP SX CA ON 28% 5L SX THIN YELLOW MOD SECRETIONS NO RESP DISTRESS TRACH CARE DONE SPARE TRACH AND BAG MASK AT [facility] WILL CONT OT MONITOR
[2019-04-11] MEDS: JEVITY 1.2 CAL 1,000 ML BOTTLE GT PRN (14:00)
[2019-04-11 15:37] VITALS: BP 140/76
[2019-04-11] MEDS ORDERED: ALBUTEROL HALF STRENGTH 1.25 MG/3 ML VIAL.NEB NEB PRN (16:30)
[2019-04-11] MEDS ORDERED: IPRATROPIUM NEB FS 0.5 MG/2.5 ML AMPUL.NEB NEB PRN (16:30)
[2019-04-11] MEDS ORDERED: ONDANSETRON 4 MG TAB.RAPDIS GT PRN (16:30)
[2019-04-11] MEDS ORDERED: NITROGLYCERIN 0.4 MG/TAB BOTTLE SL PRN (16:30)
[2019-04-11] MEDS ORDERED: ACETAMINOPHEN 650 MG/20 ML UDC- SA PATIENTS-FEVER ONLY GT PRN (16:30)
[2019-04-11] MEDS ORDERED: HYDROGEN PEROXIDE 480 ML BOTTLE TP PRN (16:30)
[2019-04-11] MEDS: RIFAXIMIN 550 MG TABLET GT SCH (17:23)
[2019-04-11] MEDS: LACTOBACILLUS RHAMNOSUS GG 1 EACH CAP.SPRINK GT SCH (17:23)
--- NOTE | 2019-04-11 18:00 | NUR ---
Gastric residual 50 mL.
[2019-04-11] MEDS: CHLORHEXIDINE GLUCONATE 15 ML UDC MM SCH (18:13)
[2019-04-11] MEDS: DICLOFENAC TOPICAL 100 GM GEL..GM. TP SCH (18:13)
[2019-04-11] MEDS: IPRATROPIUM NEB FS 0.5 MG/2.5 ML AMPUL.NEB NEB SCH (19:11)
[2019-04-11 20:11] VITALS: BP 135/85
[2019-04-11] MEDS ORDERED: DIVALPROEX SODIUM 125 MG CAP.SPRINK GT SCH (21:00)
[2019-04-11] MEDS: AMOXICILLIN TRIHYDRATE 250 MG CAPSULE GT SCH (21:00)
[2019-04-11] MEDS ORDERED: ENOXAPARIN SODIUM 40 MG/0.4 ML DISP.SYRIN SQ SCH (21:00)
[2019-04-11] MEDS: [UNRECOGNIZED DRUG - OTHER] TP SCH (21:35)
[2019-04-11] MEDS: CHOLECALCIFEROL (VITAMIN D 3) 400 UNIT TABLET GT SCH (21:35)
[2019-04-11] MEDS: HYDROGEN PEROXIDE 480 ML BOTTLE TP SCH (21:35)
[2019-04-11] MEDS: VITS A AND D/WHITE PET/LANOLIN 5 GM PACKET TP SCH ×2 (21:36)
[2019-04-11] MEDS: VITAMINS A AND D 56.7 GM TUBE TP SCH (21:36)
[2019-04-11] MEDS: BENAZEPRIL HCL 5 MG TABLET GT SCH (21:36)
[2019-04-11] MEDS: LORATADINE 10 MG TABLET GT SCH (21:36)
[2019-04-11] MEDS: LATANOPROST EYE DROP 0.005% 2.5 ML BOTTLE EACHEYE SCH (21:36)
[2019-04-11] MEDS: PRAVASTATIN SODIUM 20 MG TABLET GT SCH (21:37)
[2019-04-12] MEDS: IPRATROPIUM NEB FS 0.5 MG/2.5 ML AMPUL.NEB NEB SCH ×4 (01:33→19:32)
[2019-04-12] MEDS: CHLORHEXIDINE GLUCONATE 15 ML UDC MM SCH ×2 (05:55→17:40)
[2019-04-12] MEDS: AMOXICILLIN TRIHYDRATE 250 MG CAPSULE GT SCH ×3 (05:55→21:33)
[2019-04-12 08:06] VITALS: BP 176/88
[2019-04-12] MEDS: LACTOBACILLUS RHAMNOSUS GG 1 EACH CAP.SPRINK GT SCH ×2 (08:16→17:40)
[2019-04-12] MEDS: POTASSIUM CHLORIDE GT SCH (08:17)
[2019-04-12] MEDS: BIOTIN 5000 MCG GT SCH (08:17)
[2019-04-12] MEDS: FINASTERIDE (5 MG) 5 MG TABLET GT SCH (08:18)
[2019-04-12] MEDS: CHOLECALCIFEROL (VITAMIN D 3) 400 UNIT TABLET GT SCH ×2 (08:18→21:32)
[2019-04-12] MEDS: DICLOFENAC TOPICAL 100 GM GEL..GM. TP SCH ×2 (08:18→17:40)
[2019-04-12] MEDS: RIFAXIMIN 550 MG TABLET GT SCH ×2 (08:18→17:40)
[2019-04-12] MEDS: HYDROGEN PEROXIDE 480 ML BOTTLE TP SCH ×2 (09:00→19:32)
[2019-04-12] MEDS ORDERED: TIMOLOL 0.5% SOLN OPHTH 5 ML BOTTLE EACHEYE SCH (09:00)
[2019-04-12] MEDS: VITAMINS A AND D 56.7 GM TUBE TP SCH ×2 (09:00→21:33)
[2019-04-12] MEDS: VITS A AND D/WHITE PET/LANOLIN 5 GM PACKET TP SCH ×4 (09:00→21:33)
[2019-04-12] MEDS ORDERED: [UNRECOGNIZED DRUG - OTHER] TP SCH ×2 (13:00→18:13)
[2019-04-12] MEDS: [UNRECOGNIZED DRUG - OTHER] TP SCH ×2 (13:13→21:37)
--- NOTE | 2019-04-12 16:10 | NUR ---
RT Pt received on cool aerosol. Trach care done and hhn txs given w no adverse reactions. trach tube patent and secure, No sob or respiratory distress noted at this time. will continue to monitor. Addendum: 04/12/19 at 1610 by KRYSTLE ELIZABETH RT Amended: Links added.
[2019-04-12] MEDS: JEVITY 1.2 CAL 1,000 ML BOTTLE GT PRN (17:36)
[2019-04-12] MEDS: METOCLOPRAMIDE HCL 10 MG TABLET GT PRN (18:50)
[2019-04-12] MEDS: ACETAMINOPHEN 650 MG/20 ML UDC- SA PATIENTS-PAIN ONLY GT PRN (19:01)
--- NOTE | 2019-04-12 19:32 | NUR ---
RT NOTE: RECEIVED TRACH PT ON ROOM AIR. PLACED PT BACK ON COOL AEROSOL. AMBU BAG @ BEDSIDE. Q6 BREATHING TX GIVEN PER MD ORDERS WITH NO ADVERSE REACTION NOTED. SX DONE PRN. TRACH CARE DONE. TRACH PATENT AND SECURED. NO RESP DISTRESS NOTED AT THIS TIME. WILL CONTINUE TO MONITOR PT. Addendum: 04/13/19 at 0234 by LINNEA TOVAR RT Amended: Links added.
[2019-04-12] MEDS: LATANOPROST EYE DROP 0.005% 2.5 ML BOTTLE EACHEYE SCH (21:36)
[2019-04-12] MEDS: LORATADINE 10 MG TABLET GT SCH (21:36)
[2019-04-12] MEDS: BENAZEPRIL HCL 5 MG TABLET GT SCH (21:36)
[2019-04-12] MEDS: PRAVASTATIN SODIUM 20 MG TABLET GT SCH (21:37)
[2019-04-12 21:41] VITALS: BP 137/85
[2019-04-12] MEDS: HYDROCODONE/APAP 7.5/325MG 1 EACH TABLET GT PRN (21:44)
[2019-04-13] MEDS: IPRATROPIUM NEB FS 0.5 MG/2.5 ML AMPUL.NEB NEB SCH ×4 (01:28→19:52)
[2019-04-13] MEDS: CHLORHEXIDINE GLUCONATE 15 ML UDC MM SCH ×2 (05:54→17:56)
[2019-04-13] MEDS: AMOXICILLIN TRIHYDRATE 250 MG CAPSULE GT SCH ×3 (05:54→21:43)
[2019-04-13 08:02] VITALS: BP 153/97
[2019-04-13] MEDS: BIOTIN 5000 MCG GT SCH (08:27)
[2019-04-13] MEDS: CHOLECALCIFEROL (VITAMIN D 3) 400 UNIT TABLET GT SCH ×2 (08:27→21:41)
[2019-04-13] MEDS: FINASTERIDE (5 MG) 5 MG TABLET GT SCH (08:27)
[2019-04-13] MEDS: RIFAXIMIN 550 MG TABLET GT SCH ×2 (08:27→17:56)
[2019-04-13] MEDS: LACTOBACILLUS RHAMNOSUS GG 1 EACH CAP.SPRINK GT SCH ×2 (08:27→17:56)
[2019-04-13] MEDS: POTASSIUM CHLORIDE GT SCH (08:27)
[2019-04-13] MEDS: VITS A AND D/WHITE PET/LANOLIN 5 GM PACKET TP SCH ×4 (08:27→21:43)
[2019-04-13] MEDS: VITAMINS A AND D 56.7 GM TUBE TP SCH ×2 (08:28→21:43)
[2019-04-13] MEDS: DICLOFENAC TOPICAL 100 GM GEL..GM. TP SCH ×2 (08:28→17:56)
[2019-04-13] MEDS: HYDROGEN PEROXIDE 480 ML BOTTLE TP SCH ×2 (09:00→21:04)
[2019-04-13] MEDS: [UNRECOGNIZED DRUG - OTHER] TP SCH ×2 (12:46→21:43)
[2019-04-13] MEDS: HYDROCODONE/APAP 7.5/325MG 1 EACH TABLET GT PRN (12:47)
[2019-04-13] MEDS: MAGNESIUM HYDROXIDE 30 ML UDC GT PRN (13:35)
[2019-04-13] MEDS: LORATADINE 10 MG TABLET GT SCH (21:41)
[2019-04-13] MEDS: LATANOPROST EYE DROP 0.005% 2.5 ML BOTTLE EACHEYE SCH (21:43)
[2019-04-13] MEDS: BENAZEPRIL HCL 5 MG TABLET GT SCH (21:45)
[2019-04-13] MEDS: PRAVASTATIN SODIUM 20 MG TABLET GT SCH (21:45)
[2019-04-13 21:46] VITALS: BP 114/67
[2019-04-14] MEDS: IPRATROPIUM NEB FS 0.5 MG/2.5 ML AMPUL.NEB NEB SCH ×4 (01:35→19:49)
[2019-04-14] MEDS: AMOXICILLIN TRIHYDRATE 250 MG CAPSULE GT SCH ×3 (05:00→21:11)
[2019-04-14] MEDS: CHLORHEXIDINE GLUCONATE 15 ML UDC MM SCH ×2 (06:22→17:42)
[2019-04-14] MEDS: JEVITY 1.2 CAL 1,000 ML BOTTLE GT PRN (06:22)
[2019-04-14] MEDS: HYDROGEN PEROXIDE 480 ML BOTTLE TP SCH ×2 (07:21→21:22)
[2019-04-14 07:51] VITALS: BP 109/67
[2019-04-14] MEDS: BIOTIN 5000 MCG GT SCH (09:00)
[2019-04-14] MEDS: RIFAXIMIN 550 MG TABLET GT SCH ×2 (09:00→16:17)
[2019-04-14] MEDS: VITAMINS A AND D 56.7 GM TUBE TP SCH ×2 (09:00→21:11)
[2019-04-14] MEDS: CHOLECALCIFEROL (VITAMIN D 3) 400 UNIT TABLET GT SCH ×2 (09:00→21:11)
[2019-04-14] MEDS: DICLOFENAC TOPICAL 100 GM GEL..GM. TP SCH ×2 (09:00→16:17)
[2019-04-14] MEDS: LACTOBACILLUS RHAMNOSUS GG 1 EACH CAP.SPRINK GT SCH ×2 (09:00→16:17)
[2019-04-14] MEDS: VITS A AND D/WHITE PET/LANOLIN 5 GM PACKET TP SCH ×4 (09:00→21:11)
[2019-04-14] MEDS: POTASSIUM CHLORIDE GT SCH (09:00)
[2019-04-14] MEDS: FINASTERIDE (5 MG) 5 MG TABLET GT SCH (09:00)
[2019-04-14] MEDS: [UNRECOGNIZED DRUG - OTHER] TP SCH ×2 (12:36→21:11)
--- NOTE | 2019-04-14 16:02 | NUR ---
RT NOTE: RECEIVED PT ON 28% COOL AEROSOL. @ BEDSIDE PUT PT ON ROOM AIR. RN AWARE. NO RESPIRATORY DISTRESS NOTED. TRACH CHECKED SECURE AND PATENT. SXD AND LAVAGED PT Q ROUND AND NEEDED. TXS GIVEN ORDERED WITH NO ADVERSE REACTIONS NOTED. TRACH CARE DONE. SPARE TRACH AND AMBU BAG @ BEDSIDE.
[2019-04-14 19:52] VITALS: BP 139/84
[2019-04-14] MEDS: LORATADINE 10 MG TABLET GT SCH (21:11)
[2019-04-14] MEDS: LATANOPROST EYE DROP 0.005% 2.5 ML BOTTLE EACHEYE SCH (21:11)
[2019-04-14] MEDS: PRAVASTATIN SODIUM 20 MG TABLET GT SCH (21:11)
[2019-04-14] MEDS: BENAZEPRIL HCL 5 MG TABLET GT SCH (21:11)
[2019-04-15] MEDS: IPRATROPIUM NEB FS 0.5 MG/2.5 ML AMPUL.NEB NEB SCH ×4 (02:04→19:47)
--- NOTE | 2019-04-15 02:14 | NUR ---
RT NOTE PATIENT RECEIVED ON COOL AEROSOL. NO SIGNS OF RESPIRATORY DISTRESS NOTED. TRACH IS MIDLINE, PATENT AND SECURE. EMERGENCY EQUIPMENT AT PATIENT BEDSIDE. WILL CONTINUE TO MONITOR. Addendum: 04/15/19 at 0459 by MARIANNA MÁRQUEZ RT Amended: Links added.
[2019-04-15] MEDS: CHLORHEXIDINE GLUCONATE 15 ML UDC MM SCH ×2 (05:56→17:29)
[2019-04-15] MEDS: JEVITY 1.2 CAL 1,000 ML BOTTLE GT PRN (05:56)
[2019-04-15] MEDS: AMOXICILLIN TRIHYDRATE 250 MG CAPSULE GT SCH ×3 (05:56→21:14)
[2019-04-15] MEDS: POTASSIUM CHLORIDE GT SCH (08:24)
[2019-04-15] MEDS: LACTOBACILLUS RHAMNOSUS GG 1 EACH CAP.SPRINK GT SCH ×2 (08:24→17:29)
[2019-04-15] MEDS: RIFAXIMIN 550 MG TABLET GT SCH ×2 (08:26→17:29)
[2019-04-15] MEDS: CHOLECALCIFEROL (VITAMIN D 3) 400 UNIT TABLET GT SCH ×2 (08:26→21:14)
[2019-04-15] MEDS: FINASTERIDE (5 MG) 5 MG TABLET GT SCH (08:26)
[2019-04-15] MEDS: BIOTIN 5000 MCG GT SCH (08:26)
[2019-04-15] MEDS: METOCLOPRAMIDE HCL 10 MG TABLET GT PRN (08:36)
[2019-04-15] MEDS: VITS A AND D/WHITE PET/LANOLIN 5 GM PACKET TP SCH ×4 (09:00→21:14)
[2019-04-15] MEDS: HYDROGEN PEROXIDE 480 ML BOTTLE TP SCH ×2 (09:00→19:47)
[2019-04-15] MEDS: VITAMINS A AND D 56.7 GM TUBE TP SCH ×2 (09:00→21:14)
[2019-04-15] MEDS: DICLOFENAC TOPICAL 100 GM GEL..GM. TP SCH ×2 (09:00→17:29)
[2019-04-15 11:48] VITALS: BP 121/75
[2019-04-15] MEDS: [UNRECOGNIZED DRUG - OTHER] TP SCH ×2 (12:09→21:14)
--- NOTE | 2019-04-15 19:57 | NUR ---
RT NOTE: PLACED TRACH PT ON COOL AEROSOL AT THIS TIME. AMBU BAG @ BEDSIDE. Q6 BREATHING TX GIVEN PER MD ORDERS WITH NO ADVERSE REACTION NOTED. SX DONE PRN. TRACH PATENT AND SECURED. TRACH CARE DONE. NO RESP DISTRESS NOTED AT THIS TIME. WILL CONTINUE TO MONITOR PT. Addendum: 04/15/19 at 2036 by LINNEA TOVAR RT Amended: Links added.
[2019-04-15 20:03] VITALS: BP 138/87
[2019-04-15] MEDS: LORATADINE 10 MG TABLET GT SCH (21:15)
[2019-04-15] MEDS: BENAZEPRIL HCL 5 MG TABLET GT SCH (21:15)
[2019-04-15] MEDS: PRAVASTATIN SODIUM 20 MG TABLET GT SCH (21:15)
[2019-04-15] MEDS: LATANOPROST EYE DROP 0.005% 2.5 ML BOTTLE EACHEYE SCH (21:15)
[2019-04-16] MEDS: HYDROCODONE/APAP 7.5/325MG 1 EACH TABLET GT PRN ×3 (00:50→21:16)
[2019-04-16] MEDS: GLYCOPYRROLATE 1 MG TABLET GT PRN (00:51)
[2019-04-16] MEDS: IPRATROPIUM NEB FS 0.5 MG/2.5 ML AMPUL.NEB NEB SCH ×4 (01:41→19:48)
[2019-04-16] MEDS: CHLORHEXIDINE GLUCONATE 15 ML UDC MM SCH ×2 (05:28→17:36)
[2019-04-16] MEDS: AMOXICILLIN TRIHYDRATE 250 MG CAPSULE GT SCH ×2 (05:28→13:00)
[2019-04-16] MEDS: JEVITY 1.2 CAL 1,000 ML BOTTLE GT PRN ×2 (06:48→17:44)
[2019-04-16 07:50] VITALS: BP 101/70
[2019-04-16] MEDS: HYDROGEN PEROXIDE 480 ML BOTTLE TP SCH ×2 (08:16→19:48)
[2019-04-16] MEDS: DICLOFENAC TOPICAL 100 GM GEL..GM. TP SCH ×2 (08:41→17:36)
[2019-04-16] MEDS: RIFAXIMIN 550 MG TABLET GT SCH ×2 (08:41→17:35)
[2019-04-16] MEDS: VITS A AND D/WHITE PET/LANOLIN 5 GM PACKET TP SCH ×4 (08:41→21:06)
[2019-04-16] MEDS: LACTOBACILLUS RHAMNOSUS GG 1 EACH CAP.SPRINK GT SCH ×2 (08:41→17:35)
[2019-04-16] MEDS: CHOLECALCIFEROL (VITAMIN D 3) 400 UNIT TABLET GT SCH ×3 (08:41→21:12)
[2019-04-16] MEDS: BIOTIN 5000 MCG GT SCH (08:41)
[2019-04-16] MEDS: VITAMINS A AND D 56.7 GM TUBE TP SCH ×2 (08:41→21:06)
[2019-04-16] MEDS: FINASTERIDE (5 MG) 5 MG TABLET GT SCH (08:41)
[2019-04-16] MEDS: POTASSIUM CHLORIDE GT SCH (08:41)
--- NOTE | 2019-04-16 10:20 | NUR ---
Seen and examined by Dr. Edwards, no new order given. Informed Dr. Edwards that patient was transferred to [facility] for evaluation due to fever and Dr. Meza was covering for him at that time. Patient currently on ATB Amoxicillin Q8h for UTI until 04/22. Dr. Edwards said he will review duration of ATB on his next visit. Endorsed.
[2019-04-16] MEDS: [UNRECOGNIZED DRUG - OTHER] TP SCH ×2 (13:00→21:06)
--- NOTE | 2019-04-16 19:58 | NUR ---
RT NOTE: PLACED TRACH PT ON COOL AEROSOL AT THIS TIME. AMBU BAG @ BEDSIDE. Q6 BREATHING TX GIVEN PER MD ORDERS WITH NO ADVERSE REACTION NOTED. SX DONE PRN. TRACH PATENT AND SECURED. TRACH CARE DONE. NO RESP DISTRESS NOTED AT THIS TIME. WILL CONTINUE TO MONITOR PT. Addendum: 04/16/19 at 2215 by LINNEA TOVAR RT Amended: Links added.
[2019-04-16 20:32] VITALS: BP 129/86
[2019-04-16] MEDS: LATANOPROST EYE DROP 0.005% 2.5 ML BOTTLE EACHEYE SCH (21:06)
[2019-04-16] MEDS: PRAVASTATIN SODIUM 20 MG TABLET GT SCH (21:07)
[2019-04-16] MEDS: LORATADINE 10 MG TABLET GT SCH ×2 (21:07→21:12)
[2019-04-16] MEDS: BENAZEPRIL HCL 5 MG TABLET GT SCH (21:07)
[2019-04-17] MEDS: IPRATROPIUM NEB FS 0.5 MG/2.5 ML AMPUL.NEB NEB SCH ×4 (02:07→20:22)
[2019-04-17] MEDS: CHLORHEXIDINE GLUCONATE 15 ML UDC MM SCH ×2 (05:28→17:18)
[2019-04-17 06:47] LABS: BASOPHILS # (AUTO) 0.1 /CMM (0.0-0.2); BASOPHILS % (AUTO) 1.1 % (0.0-2.0); EOSINOPHILS % (AUTO) 4.4 % (0.0-6.0); HEMATOCRIT 44 % (39-51); HEMOGLOBIN 14.9 g/dL (13.5-17.5); LYMPHOCYTES # (AUTO) 1.7 /CMM (0.8-4.8); LYMPHOCYTES % (AUTO) 27.8 % (20.0-44.0); MEAN CORPUSCULAR HGB CONC 34 g/dl (31.0-36.0); MEAN CORPUSCULAR VOLUME 99 fL (80-96); MONOCYTES # (AUTO) 0.5 /CMM (0.1-1.30); MONOCYTES % (AUTO) 8.6 % (2.0-12.0); NEUTROPHILS # (AUTO) 3.6 /CMM (1.8-8.9); NEUTROPHILS % (AUTO) 58.1 % (43.0-81.0); PLATELET COUNT (AUTO) 186 /CMM (150-450); RED BLOOD CELL COUNT(AUTO) 4.47 MIL/uL (4.5-6.0); WHITE BLOOD COUNT (AUTO) 6.1 K/uL (4.3-11.0)
[2019-04-17 07:43] VITALS: BP 116/76
[2019-04-17] MEDS: BIOTIN 5000 MCG GT SCH (08:27)
[2019-04-17] MEDS: RIFAXIMIN 550 MG TABLET GT SCH ×2 (08:27→17:18)
[2019-04-17] MEDS: CHOLECALCIFEROL (VITAMIN D 3) 400 UNIT TABLET GT SCH ×2 (08:27→22:00)
[2019-04-17] MEDS: FINASTERIDE (5 MG) 5 MG TABLET GT SCH (08:27)
[2019-04-17] MEDS: VITAMINS A AND D 56.7 GM TUBE TP SCH ×2 (08:27→22:10)
[2019-04-17] MEDS: LACTOBACILLUS RHAMNOSUS GG 1 EACH CAP.SPRINK GT SCH ×2 (08:27→17:18)
[2019-04-17] MEDS: VITS A AND D/WHITE PET/LANOLIN 5 GM PACKET TP SCH ×4 (08:27→22:10)
[2019-04-17] MEDS: POTASSIUM CHLORIDE GT SCH (08:27)
[2019-04-17] MEDS: DICLOFENAC TOPICAL 100 GM GEL..GM. TP SCH ×2 (08:28→17:18)
[2019-04-17] MEDS: HYDROGEN PEROXIDE 480 ML BOTTLE TP SCH ×2 (08:45→21:00)
[2019-04-17] MEDS: [UNRECOGNIZED DRUG - OTHER] TP SCH ×2 (13:00→22:10)
--- NOTE | 2019-04-17 14:20 | NUR ---
RT Pt received on cool aerosol. Trach care done and hhn txs given w no adverse reactions. Pt stable. No sob or respiratory distress noted through out shift. Addendum: 04/17/19 at 2236 by MICHELA ENRIQUEZ RT Amended: Links added.
[2019-04-17] MEDS: JEVITY 1.2 CAL 1,000 ML BOTTLE GT PRN (17:44)
[2019-04-17 19:45] VITALS: BP 132/79
[2019-04-17] MEDS: BENAZEPRIL HCL 5 MG TABLET GT SCH (22:21)
[2019-04-17] MEDS: PRAVASTATIN SODIUM 20 MG TABLET GT SCH (22:21)
[2019-04-17] MEDS: LORATADINE 10 MG TABLET GT SCH (22:21)
[2019-04-17] MEDS: LATANOPROST EYE DROP 0.005% 2.5 ML BOTTLE EACHEYE SCH (22:22)
[2019-04-18] MEDS: IPRATROPIUM NEB FS 0.5 MG/2.5 ML AMPUL.NEB NEB SCH ×4 (00:53→19:10)
--- NOTE | 2019-04-18 04:05 | NUR ---
PT RCVD DEBRA'D ON COOL AEROSOL WITH CHARTED SETTINGS. SX DONE. PT TRACH IS PATENT AND SECURE. AMBU BAG AT BEDSIDE. Addendum: 04/18/19 at 0406 by LISETH MOCK RT Amended: Links added.
[2019-04-18] MEDS: CHLORHEXIDINE GLUCONATE 15 ML UDC MM SCH ×2 (05:32→17:30)
[2019-04-18 07:27] VITALS: BP 138/89
[2019-04-18] MEDS: LACTOBACILLUS RHAMNOSUS GG 1 EACH CAP.SPRINK GT SCH ×2 (08:08→16:20)
[2019-04-18] MEDS: CHOLECALCIFEROL (VITAMIN D 3) 400 UNIT TABLET GT SCH ×2 (08:08→21:15)
[2019-04-18] MEDS: POTASSIUM CHLORIDE GT SCH (08:08)
[2019-04-18] MEDS: BIOTIN 5000 MCG GT SCH (08:08)
[2019-04-18] MEDS: FINASTERIDE (5 MG) 5 MG TABLET GT SCH (08:08)
[2019-04-18] MEDS: RIFAXIMIN 550 MG TABLET GT SCH ×2 (08:08→16:20)
--- NOTE | 2019-04-18 08:49 | NUR ---
RT NOTE: RECEIVED TRACH PATIENT ON COOL AERSOL THEN PLACED ROOM AIR. TRACH CARE DONE AT THIS TIME. TRACH IS PATENT AND SECURE. NO RESP DISTRESS NOTED. WILL CONT TO MONITOR PT. Addendum: 04/18/19 at 0850 by KRYSTLE ELIZABETH RT Amended: Links added.
[2019-04-18] MEDS: HYDROGEN PEROXIDE 480 ML BOTTLE TP SCH ×2 (09:00→21:58)
[2019-04-18] MEDS: VITS A AND D/WHITE PET/LANOLIN 5 GM PACKET TP SCH ×4 (09:00→21:16)
[2019-04-18] MEDS: DICLOFENAC TOPICAL 100 GM GEL..GM. TP SCH ×2 (09:00→16:20)
[2019-04-18] MEDS: VITAMINS A AND D 56.7 GM TUBE TP SCH ×2 (09:00→21:16)
[2019-04-18] MEDS: [UNRECOGNIZED DRUG - OTHER] TP SCH ×2 (12:02→21:15)
[2019-04-18 21:03] VITALS: BP 104/72
[2019-04-18] MEDS: BENAZEPRIL HCL 5 MG TABLET GT SCH (21:16)
[2019-04-18] MEDS: LATANOPROST EYE DROP 0.005% 2.5 ML BOTTLE EACHEYE SCH (21:16)
[2019-04-18] MEDS: LORATADINE 10 MG TABLET GT SCH (21:16)
[2019-04-18] MEDS: PRAVASTATIN SODIUM 20 MG TABLET GT SCH (21:16)
[2019-04-18] MEDS: JEVITY 1.2 CAL 1,000 ML BOTTLE GT PRN (21:34)
[2019-04-19] MEDS: IPRATROPIUM NEB FS 0.5 MG/2.5 ML AMPUL.NEB NEB SCH ×4 (01:35→19:51)
[2019-04-19] MEDS: CHLORHEXIDINE GLUCONATE 15 ML UDC MM SCH ×2 (05:39→17:23)
[2019-04-19 07:39] VITALS: BP 139/87
[2019-04-19] MEDS: HYDROGEN PEROXIDE 480 ML BOTTLE TP SCH ×2 (08:16→19:51)
[2019-04-19] MEDS: LACTOBACILLUS RHAMNOSUS GG 1 EACH CAP.SPRINK GT SCH ×2 (09:49→17:23)
[2019-04-19] MEDS: POTASSIUM CHLORIDE GT SCH (09:50)
[2019-04-19] MEDS: BIOTIN 5000 MCG GT SCH (09:50)
[2019-04-19] MEDS: VITS A AND D/WHITE PET/LANOLIN 5 GM PACKET TP SCH ×4 (09:50→21:12)
[2019-04-19] MEDS: CHOLECALCIFEROL (VITAMIN D 3) 400 UNIT TABLET GT SCH ×2 (09:50→21:11)
[2019-04-19] MEDS: VITAMINS A AND D 56.7 GM TUBE TP SCH ×2 (09:50→21:12)
[2019-04-19] MEDS: RIFAXIMIN 550 MG TABLET GT SCH ×2 (09:50→17:23)
[2019-04-19] MEDS: DICLOFENAC TOPICAL 100 GM GEL..GM. TP SCH ×2 (09:50→17:23)
[2019-04-19] MEDS: FINASTERIDE (5 MG) 5 MG TABLET GT SCH (09:50)
[2019-04-19] MEDS: [UNRECOGNIZED DRUG - OTHER] TP SCH ×2 (13:00→21:12)
[2019-04-19] MEDS: GLYCOPYRROLATE 1 MG TABLET GT PRN (17:25)
[2019-04-19] MEDS: JEVITY 1.2 CAL 1,000 ML BOTTLE GT PRN (17:26)
[2019-04-19 19:47] VITALS: BP 137/68
--- NOTE | 2019-04-19 20:01 | NUR ---
RT NOTE: PLACED TRACH PT ON COOL AEROSOL AT THIS TIME. AMBU BAG @ BEDSIDE. Q6 BREATHING TX GIVEN PER MD ORDERS WITH NO ADVERSE REACTION NOTED. SX DONE PRN. TRACH PATENT AND SECURED. TRACH CARE DONE. NO RESP DISTRESS NOTED AT THIS TIME. WILL CONTINUE TO MONITOR PT. Addendum: 04/20/19 at 0300 by LINNEA TOVAR RT Amended: Links added.
[2019-04-19] MEDS: LATANOPROST EYE DROP 0.005% 2.5 ML BOTTLE EACHEYE SCH (21:12)
[2019-04-19] MEDS: LORATADINE 10 MG TABLET GT SCH (21:12)
[2019-04-19] MEDS: PRAVASTATIN SODIUM 20 MG TABLET GT SCH (21:12)
[2019-04-19] MEDS: BENAZEPRIL HCL 5 MG TABLET GT SCH (21:12)
[2019-04-20] MEDS: IPRATROPIUM NEB FS 0.5 MG/2.5 ML AMPUL.NEB NEB SCH ×4 (01:34→19:54)
[2019-04-20] MEDS: CHLORHEXIDINE GLUCONATE 15 ML UDC MM SCH ×2 (05:43→17:28)
[2019-04-20 07:49] VITALS: BP 123/88
[2019-04-20] MEDS: FINASTERIDE (5 MG) 5 MG TABLET GT SCH (08:09)
[2019-04-20] MEDS: LACTOBACILLUS RHAMNOSUS GG 1 EACH CAP.SPRINK GT SCH ×2 (08:09→17:28)
[2019-04-20] MEDS: CHOLECALCIFEROL (VITAMIN D 3) 400 UNIT TABLET GT SCH ×2 (08:09→21:00)
[2019-04-20] MEDS: RIFAXIMIN 550 MG TABLET GT SCH ×2 (08:09→17:28)
[2019-04-20] MEDS: BIOTIN 5000 MCG GT SCH (08:09)
[2019-04-20] MEDS: POTASSIUM CHLORIDE GT SCH (08:09)
[2019-04-20] MEDS: DICLOFENAC TOPICAL 100 GM GEL..GM. TP SCH ×2 (09:00→17:28)
[2019-04-20] MEDS: HYDROGEN PEROXIDE 480 ML BOTTLE TP SCH ×2 (09:00→20:17)
[2019-04-20] MEDS: VITS A AND D/WHITE PET/LANOLIN 5 GM PACKET TP SCH ×4 (09:00→20:54)
[2019-04-20] MEDS: VITAMINS A AND D 56.7 GM TUBE TP SCH ×2 (09:00→20:54)
[2019-04-20] MEDS: HYDROCODONE/APAP 7.5/325MG 1 EACH TABLET GT PRN (10:07)
[2019-04-20] MEDS: [UNRECOGNIZED DRUG - OTHER] TP SCH ×2 (12:39→20:54)
--- NOTE | 2019-04-20 12:45 | NUR ---
Flu vaccine was offered and Latvian educational material was provided to pt's . She said she wants pt to receive flu vaccine once it is available.
--- NOTE | 2019-04-20 16:44 | NUR ---
RT NOTE: RECEIVED PT ON 28% AEROSOL. PLACED ON ROOM AIR PER 'S REQUEST. RN AWARE. NO RESPIRATORY DISTRESS NOTED. TRACH CHECKED SECURE AND PATENT. SXD AND LAVAGED Q ROUND AND NEEDED. TXS GIVEN ORDERED WITH NO ADVERSE REACTIONS NOTED. TRACH CARE DONE. SPARE TRACH AND AMBU BAG @ BEDSIDE.
[2019-04-20] MEDS: MAGNESIUM HYDROXIDE 30 ML UDC GT PRN (18:39)
[2019-04-20] MEDS: JEVITY 1.2 CAL 1,000 ML BOTTLE GT PRN (18:54)
[2019-04-20 19:55] VITALS: BP 119/74
[2019-04-20 20:00] VITALS: BP 119/74
--- NOTE | 2019-04-20 20:40 | NUR ---
PT RCVD TRACH'D ON COOL AEROSOL WITH CHARTED SETTINGS. PT FRANCIE TX WELL. SX DONE. PT TRACH IS PATENT AND SECURE. AMBU BAG AT BEDSIDE. Addendum: 04/20/19 at 2039 by LISETH MOCK RT Amended: Links added.
[2019-04-20] MEDS: LATANOPROST EYE DROP 0.005% 2.5 ML BOTTLE EACHEYE SCH (22:11)
[2019-04-20] MEDS: LORATADINE 10 MG TABLET GT SCH (22:11)
[2019-04-20] MEDS: PRAVASTATIN SODIUM 20 MG TABLET GT SCH (22:12)
[2019-04-20] MEDS: BENAZEPRIL HCL 5 MG TABLET GT SCH (22:12)
[2019-04-21] MEDS: IPRATROPIUM NEB FS 0.5 MG/2.5 ML AMPUL.NEB NEB SCH ×4 (01:03→20:02)
[2019-04-21] MEDS: CHLORHEXIDINE GLUCONATE 15 ML UDC MM SCH ×2 (05:51→17:10)
[2019-04-21 07:37] VITALS: BP 133/82
[2019-04-21] MEDS: HYDROGEN PEROXIDE 480 ML BOTTLE TP SCH ×2 (08:05→20:02)
[2019-04-21] MEDS: FINASTERIDE (5 MG) 5 MG TABLET GT SCH (08:39)
[2019-04-21] MEDS: POTASSIUM CHLORIDE GT SCH (08:39)
[2019-04-21] MEDS: RIFAXIMIN 550 MG TABLET GT SCH ×2 (08:39→17:10)
[2019-04-21] MEDS: LACTOBACILLUS RHAMNOSUS GG 1 EACH CAP.SPRINK GT SCH ×2 (08:39→17:10)
[2019-04-21] MEDS: BIOTIN 5000 MCG GT SCH (08:39)
[2019-04-21] MEDS: CHOLECALCIFEROL (VITAMIN D 3) 400 UNIT TABLET GT SCH ×2 (08:39→20:49)
[2019-04-21] MEDS: DICLOFENAC TOPICAL 100 GM GEL..GM. TP SCH ×2 (09:00→17:10)
[2019-04-21] MEDS: VITAMINS A AND D 56.7 GM TUBE TP SCH ×2 (09:00→20:49)
[2019-04-21] MEDS: VITS A AND D/WHITE PET/LANOLIN 5 GM PACKET TP SCH ×4 (09:00→20:49)
[2019-04-21] MEDS: [UNRECOGNIZED DRUG - OTHER] TP SCH ×2 (12:41→20:49)
[2019-04-21] MEDS: MAGNESIUM HYDROXIDE 30 ML UDC GT PRN (14:04)
[2019-04-21] MEDS: HYDROCODONE/APAP 7.5/325MG 1 EACH TABLET GT PRN (17:04)
[2019-04-21] MEDS: BISACODYL SUPP (10 MG) 10 MG/SUPP.RECT SUPP.RECT RC PRN (18:12)
--- NOTE | 2019-04-21 18:31 | NUR ---
RT NOTE PT IS COMFORTABLE NO SOB NOTED. TRACH CARE DONE. TRACH IS PATEN AND CLEAN. EXTRA TRACH AT BEDSIDE AND AMBU BAG. NO ADVERSE REACTIONS TO BREATHING TXS. SX MODERATE AMOUNT OF THIN WHITE SECRETIONS. Addendum: 04/21/19 at 1834 by JENNY PEOPLES RT Amended: Links added.
[2019-04-21 20:12] VITALS: BP 132/92
[2019-04-21] MEDS: GLYCOPYRROLATE 1 MG TABLET GT PRN (20:49)
--- NOTE | 2019-04-21 20:50 | NUR ---
PT RCVD TRACH'D ON COOL AEROSOL WITH CHARTED SETTINGS. PT FRANCIE TX WELL. SX DONE. PT TRACH IS PATENT AND SECURE. AMBU BAG AT BEDSIDE. Addendum: 04/21/19 at 2050 by LISETH MOCK RT Amended: Links added.
[2019-04-21] MEDS: BENAZEPRIL HCL 5 MG TABLET GT SCH (21:12)
[2019-04-21] MEDS: PRAVASTATIN SODIUM 20 MG TABLET GT SCH (21:12)
[2019-04-21] MEDS: LORATADINE 10 MG TABLET GT SCH (21:12)
[2019-04-21] MEDS: LATANOPROST EYE DROP 0.005% 2.5 ML BOTTLE EACHEYE SCH (21:12)
[2019-04-21] MEDS: JEVITY 1.2 CAL 1,000 ML BOTTLE GT PRN (23:50)
[2019-04-22] MEDS: IPRATROPIUM NEB FS 0.5 MG/2.5 ML AMPUL.NEB NEB SCH ×4 (00:48→19:55)
[2019-04-22] MEDS: GLYCOPYRROLATE 1 MG TABLET GT PRN (05:07)
[2019-04-22] MEDS: CHLORHEXIDINE GLUCONATE 15 ML UDC MM SCH ×2 (05:07→17:26)
[2019-04-22] MEDS: HYDROGEN PEROXIDE 480 ML BOTTLE TP SCH ×2 (07:53→20:13)
[2019-04-22 07:59] VITALS: BP 123/53
[2019-04-22] MEDS: LACTOBACILLUS RHAMNOSUS GG 1 EACH CAP.SPRINK GT SCH ×2 (08:42→16:28)
[2019-04-22] MEDS: POTASSIUM CHLORIDE GT SCH (08:42)
[2019-04-22] MEDS: BIOTIN 5000 MCG GT SCH (08:42)
[2019-04-22] MEDS: RIFAXIMIN 550 MG TABLET GT SCH ×2 (08:42→16:28)
[2019-04-22] MEDS: DICLOFENAC TOPICAL 100 GM GEL..GM. TP SCH ×2 (08:42→16:28)
[2019-04-22] MEDS: VITAMINS A AND D 56.7 GM TUBE TP SCH ×2 (08:42→20:13)
[2019-04-22] MEDS: FINASTERIDE (5 MG) 5 MG TABLET GT SCH (08:42)
[2019-04-22] MEDS: CHOLECALCIFEROL (VITAMIN D 3) 400 UNIT TABLET GT SCH ×2 (08:42→20:13)
[2019-04-22] MEDS: VITS A AND D/WHITE PET/LANOLIN 5 GM PACKET TP SCH ×4 (08:42→20:13)
--- NOTE | 2019-04-22 10:00 | NUR ---
Patient is awake. Moist oral mucosa. Responsive to verbal stimuli. Trach with cool aerosol as ordered. GT in place patent no residual. Tolerating GT formula well. HOB elevated. Aspiration precautions maintained. Patient had not moved bowels for four days. Noted patient with stool in the hands. Patient is able to move bilateral upper and lower extremities. Noted patient has moved bowels. Explained to that he had not moved bowels in four days and that he is moving his bowels now. No gastric residual today. Explained to that he was cleaned and repositioned at 8 am and routine medications at 9 am and that he was cleaned. GAS ANALYST's in room explained to that they are going to clean the patient. is asked to please wait outside while care is rendered. starts to clean patient herself and stated that they will not do a good job. Stated that she will clean the patient herself. Explained to that the nursing staff and GAS ANALYST's are there to provide care and reassured her that he will be cleaned adequately. declined to wait outside and stated that she will clean the patient herself. Explained to that nursing staff will be available when she is done so care will be provided to patient. Everything is explained is [place]ib[place]ian. RN parking lot supervisor notified.
--- NOTE | 2019-04-22 11:00 | NUR ---
Patient is awake. Able to respond to verbal stimuli. Per she cleaned patient five times. dressed patient up and allowed Nursing (INTERNATIONAL TRADE MANAGER) to transfer patient to w/c.
[2019-04-22] MEDS: [UNRECOGNIZED DRUG - OTHER] TP SCH ×2 (12:11→20:13)
[2019-04-22 20:30] VITALS: BP 120/77
[2019-04-22] MEDS: LORATADINE 10 MG TABLET GT SCH (21:08)
[2019-04-22] MEDS: LATANOPROST EYE DROP 0.005% 2.5 ML BOTTLE EACHEYE SCH (21:09)
[2019-04-22] MEDS: PRAVASTATIN SODIUM 20 MG TABLET GT SCH (21:12)
[2019-04-22] MEDS: BENAZEPRIL HCL 5 MG TABLET GT SCH (21:12)
[2019-04-23] MEDS: JEVITY 1.2 CAL 1,000 ML BOTTLE GT PRN ×2 (00:31→16:55)
[2019-04-23] MEDS: IPRATROPIUM NEB FS 0.5 MG/2.5 ML AMPUL.NEB NEB SCH ×4 (01:29→19:27)
[2019-04-23] MEDS: CHLORHEXIDINE GLUCONATE 15 ML UDC MM SCH ×2 (05:36→18:59)
[2019-04-23] MEDS: MAGNESIUM HYDROXIDE 30 ML UDC GT PRN (05:37)
--- NOTE | 2019-04-23 06:10 | NUR ---
RT PATIENT WAS RECEIVED ON 28% COOL AEROSOL . AIRWAY PATENT AND SECURED. PATIENT STABLE THROUGHOUT THE SHIFT. WILL CONTINUE TO MONITOR. Addendum: 04/23/19 at 0610 by LUANN LAFLEUR RT Amended: Links added.
[2019-04-23 07:46] VITALS: BP 133/58
[2019-04-23] MEDS: HYDROGEN PEROXIDE 480 ML BOTTLE TP SCH ×2 (09:00→21:10)
[2019-04-23] MEDS: POTASSIUM CHLORIDE GT SCH (09:16)
[2019-04-23] MEDS: LACTOBACILLUS RHAMNOSUS GG 1 EACH CAP.SPRINK GT SCH ×2 (09:16→16:34)
[2019-04-23] MEDS: CHOLECALCIFEROL (VITAMIN D 3) 400 UNIT TABLET GT SCH ×2 (09:16→21:55)
[2019-04-23] MEDS: BIOTIN 5000 MCG GT SCH (09:16)
[2019-04-23] MEDS: FINASTERIDE (5 MG) 5 MG TABLET GT SCH (09:16)
[2019-04-23] MEDS: RIFAXIMIN 550 MG TABLET GT SCH ×2 (09:16→16:35)
[2019-04-23] MEDS: VITS A AND D/WHITE PET/LANOLIN 5 GM PACKET TP SCH ×4 (09:16→21:55)
[2019-04-23] MEDS: DICLOFENAC TOPICAL 100 GM GEL..GM. TP SCH ×2 (09:17→16:35)
[2019-04-23] MEDS: VITAMINS A AND D 56.7 GM TUBE TP SCH ×2 (09:17→21:55)
[2019-04-23] MEDS: [UNRECOGNIZED DRUG - OTHER] TP SCH ×2 (13:00→21:55)
[2019-04-23] MEDS: HYDROCODONE/APAP 7.5/325MG 1 EACH TABLET GT PRN (21:00)
[2019-04-23] MEDS: GLYCOPYRROLATE 1 MG TABLET GT PRN (21:00)
[2019-04-23 21:06] VITALS: BP 119/89
[2019-04-23] MEDS: BENAZEPRIL HCL 5 MG TABLET GT SCH (21:56)
[2019-04-23] MEDS: PRAVASTATIN SODIUM 20 MG TABLET GT SCH (21:56)
[2019-04-23] MEDS: LATANOPROST EYE DROP 0.005% 2.5 ML BOTTLE EACHEYE SCH (21:56)
[2019-04-23] MEDS: LORATADINE 10 MG TABLET GT SCH (21:56)
[2019-04-24] MEDS: IPRATROPIUM NEB FS 0.5 MG/2.5 ML AMPUL.NEB NEB SCH ×4 (01:33→19:22)
[2019-04-24] MEDS: CHLORHEXIDINE GLUCONATE 15 ML UDC MM SCH ×2 (06:01→18:22)
[2019-04-24 07:48] VITALS: BP 139/76
[2019-04-24] MEDS: LACTOBACILLUS RHAMNOSUS GG 1 EACH CAP.SPRINK GT SCH ×2 (08:28→16:59)
[2019-04-24] MEDS: BIOTIN 5000 MCG GT SCH (08:28)
[2019-04-24] MEDS: POTASSIUM CHLORIDE GT SCH (08:28)
[2019-04-24] MEDS: VITS A AND D/WHITE PET/LANOLIN 5 GM PACKET TP SCH ×4 (08:29→21:08)
[2019-04-24] MEDS: DICLOFENAC TOPICAL 100 GM GEL..GM. TP SCH ×2 (08:29→16:59)
[2019-04-24] MEDS: VITAMINS A AND D 56.7 GM TUBE TP SCH ×2 (08:29→21:08)
[2019-04-24] MEDS: FINASTERIDE (5 MG) 5 MG TABLET GT SCH (08:29)
[2019-04-24] MEDS: CHOLECALCIFEROL (VITAMIN D 3) 400 UNIT TABLET GT SCH ×2 (08:29→21:07)
[2019-04-24] MEDS: RIFAXIMIN 550 MG TABLET GT SCH ×2 (08:29→16:59)
[2019-04-24] MEDS: HYDROGEN PEROXIDE 480 ML BOTTLE TP SCH ×2 (09:00→21:00)
[2019-04-24] MEDS: HYDROCODONE/APAP 7.5/325MG 1 EACH TABLET GT PRN (09:23)
--- NOTE | 2019-04-24 10:31 | NUR ---
Pt's refusing for RNA to place soft AFO boots. She said it does not do anything for the pt. Pt ambulates during the day with RNA. Notified Dr Edwards. Received order to DC soft AFO boots.
[2019-04-24] MEDS: [UNRECOGNIZED DRUG - OTHER] TP SCH ×2 (13:00→21:07)
[2019-04-24] MEDS: JEVITY 1.2 CAL 1,000 ML BOTTLE GT PRN (17:01)
[2019-04-24 19:49] VITALS: BP 130/83
[2019-04-24] MEDS: LORATADINE 10 MG TABLET GT SCH (21:08)
[2019-04-24] MEDS: PRAVASTATIN SODIUM 20 MG TABLET GT SCH (21:08)
[2019-04-24] MEDS: LATANOPROST EYE DROP 0.005% 2.5 ML BOTTLE EACHEYE SCH (21:08)
[2019-04-24] MEDS: BENAZEPRIL HCL 5 MG TABLET GT SCH (21:08)
[2019-04-25] MEDS: IPRATROPIUM NEB FS 0.5 MG/2.5 ML AMPUL.NEB NEB SCH ×4 (00:49→19:52)
[2019-04-25] MEDS: CHLORHEXIDINE GLUCONATE 15 ML UDC MM SCH ×2 (05:46→17:11)
[2019-04-25 07:52] VITALS: BP 116/71
[2019-04-25] MEDS: FINASTERIDE (5 MG) 5 MG TABLET GT SCH (08:29)
[2019-04-25] MEDS: RIFAXIMIN 550 MG TABLET GT SCH ×2 (08:29→17:10)
[2019-04-25] MEDS: POTASSIUM CHLORIDE GT SCH (08:29)
[2019-04-25] MEDS: VITS A AND D/WHITE PET/LANOLIN 5 GM PACKET TP SCH ×4 (08:29→21:22)
[2019-04-25] MEDS: LACTOBACILLUS RHAMNOSUS GG 1 EACH CAP.SPRINK GT SCH ×2 (08:29→17:10)
[2019-04-25] MEDS: CHOLECALCIFEROL (VITAMIN D 3) 400 UNIT TABLET GT SCH ×2 (08:29→21:22)
[2019-04-25] MEDS: BIOTIN 5000 MCG GT SCH (08:29)
[2019-04-25] MEDS: DICLOFENAC TOPICAL 100 GM GEL..GM. TP SCH ×2 (08:30→17:11)
[2019-04-25] MEDS: VITAMINS A AND D 56.7 GM TUBE TP SCH ×2 (08:30→21:22)
[2019-04-25] MEDS: HYDROGEN PEROXIDE 480 ML BOTTLE TP SCH ×2 (09:56→19:52)
[2019-04-25] MEDS: [UNRECOGNIZED DRUG - OTHER] TP SCH ×2 (13:00→21:22)
[2019-04-25] MEDS: BISACODYL SUPP (10 MG) 10 MG/SUPP.RECT SUPP.RECT RC PRN (14:11)
--- NOTE | 2019-04-25 14:51 | NUR ---
SW called and left a voicemail for family/, Asha [phone] to invite them to IDT meeting taking place this Wednesday, April 28, 2019 from 12:30pm-1:30pm in the SA activities room or participate via phone conference.
[2019-04-25] MEDS: JEVITY 1.2 CAL 1,000 ML BOTTLE GT PRN (17:16)
--- NOTE | 2019-04-25 20:02 | NUR ---
RT NOTE: PLACED TRACH PT ON COOL AEROSOL AT THIS TIME. AMBU BAG @ BEDSIDE. Q6 BREATHING TX GIVEN PER MD ORDERS WITH NO ADVERSE REACTION NOTED. SX DONE PRN. TRACH PATENT AND SECURED. TRACH CARE DONE. NO RESP DISTRESS NOTED AT THIS TIME. WILL CONTINUE TO MONITOR PT. Addendum: 04/26/19 at 0240 by LINNEA TOVAR RT Amended: Links added.
[2019-04-25 20:13] VITALS: BP 124/77
[2019-04-25] MEDS: PRAVASTATIN SODIUM 20 MG TABLET GT SCH (21:22)
[2019-04-25] MEDS: BENAZEPRIL HCL 5 MG TABLET GT SCH (21:22)
[2019-04-25] MEDS: LORATADINE 10 MG TABLET GT SCH (21:22)
[2019-04-25] MEDS: LATANOPROST EYE DROP 0.005% 2.5 ML BOTTLE EACHEYE SCH (21:22)
[2019-04-25] MEDS: HYDROCODONE/APAP 7.5/325MG 1 EACH TABLET GT PRN (21:23)
[2019-04-26] MEDS: IPRATROPIUM NEB FS 0.5 MG/2.5 ML AMPUL.NEB NEB SCH ×4 (01:41→19:40)
[2019-04-26] MEDS: CHLORHEXIDINE GLUCONATE 15 ML UDC MM SCH ×2 (05:53→17:33)
[2019-04-26] MEDS: MAGNESIUM HYDROXIDE 30 ML UDC GT PRN (07:07)
[2019-04-26] MEDS: HYDROGEN PEROXIDE 480 ML BOTTLE TP SCH ×2 (08:05→19:40)
[2019-04-26 08:07] VITALS: BP 112/61
[2019-04-26] MEDS: LACTOBACILLUS RHAMNOSUS GG 1 EACH CAP.SPRINK GT SCH ×2 (09:52→17:33)
[2019-04-26] MEDS: FINASTERIDE (5 MG) 5 MG TABLET GT SCH (09:52)
[2019-04-26] MEDS: CHOLECALCIFEROL (VITAMIN D 3) 400 UNIT TABLET GT SCH ×2 (09:52→21:28)
[2019-04-26] MEDS: VITAMINS A AND D 56.7 GM TUBE TP SCH ×2 (09:52→21:28)
[2019-04-26] MEDS: RIFAXIMIN 550 MG TABLET GT SCH ×2 (09:52→17:33)
[2019-04-26] MEDS: BIOTIN 5000 MCG GT SCH (09:52)
[2019-04-26] MEDS: POTASSIUM CHLORIDE GT SCH (09:52)
[2019-04-26] MEDS: VITS A AND D/WHITE PET/LANOLIN 5 GM PACKET TP SCH ×4 (09:52→21:28)
[2019-04-26] MEDS: DICLOFENAC TOPICAL 100 GM GEL..GM. TP SCH ×2 (09:52→17:33)
[2019-04-26] MEDS: [UNRECOGNIZED DRUG - OTHER] TP SCH ×2 (13:24→21:28)
[2019-04-26] MEDS: JEVITY 1.2 CAL 1,000 ML BOTTLE GT PRN (17:34)
--- NOTE | 2019-04-26 19:50 | NUR ---
RT NOTE: PLACED TRACH PT ON COOL AEROSOL AT THIS TIME. AMBU BAG @ BEDSIDE. Q6 BREATHING TX GIVEN PER MD ORDERS WITH NO ADVERSE REACTION NOTED. SX DONE PRN. TRACH PATENT AND SECURED. TRACH CARE DONE. NO RESP DISTRESS NOTED AT THIS TIME. WILL CONTINUE TO MONITOR PT. Addendum: 04/27/19 at 0245 by LINNEA TOVAR RT Amended: Links added.
[2019-04-26 19:54] VITALS: BP 120/77
[2019-04-26] MEDS: LATANOPROST EYE DROP 0.005% 2.5 ML BOTTLE EACHEYE SCH (21:28)
[2019-04-26] MEDS: LORATADINE 10 MG TABLET GT SCH (21:28)
[2019-04-26] MEDS: BENAZEPRIL HCL 5 MG TABLET GT SCH (21:29)
[2019-04-26] MEDS: PRAVASTATIN SODIUM 20 MG TABLET GT SCH (21:29)
[2019-04-27] MEDS: IPRATROPIUM NEB FS 0.5 MG/2.5 ML AMPUL.NEB NEB SCH ×4 (01:37→20:07)
[2019-04-27] MEDS: CHLORHEXIDINE GLUCONATE 15 ML UDC MM SCH ×2 (05:43→17:00)
[2019-04-27 07:40] VITALS: BP 124/74
[2019-04-27] MEDS: HYDROGEN PEROXIDE 480 ML BOTTLE TP SCH ×2 (07:58→20:08)
[2019-04-27] MEDS: RIFAXIMIN 550 MG TABLET GT SCH ×2 (09:26→17:00)
[2019-04-27] MEDS: POTASSIUM CHLORIDE GT SCH (09:26)
[2019-04-27] MEDS: VITAMINS A AND D 56.7 GM TUBE TP SCH ×2 (09:26→21:14)
[2019-04-27] MEDS: LACTOBACILLUS RHAMNOSUS GG 1 EACH CAP.SPRINK GT SCH ×2 (09:26→17:00)
[2019-04-27] MEDS: BIOTIN 5000 MCG GT SCH (09:26)
[2019-04-27] MEDS: CHOLECALCIFEROL (VITAMIN D 3) 400 UNIT TABLET GT SCH ×2 (09:26→21:14)
[2019-04-27] MEDS: VITS A AND D/WHITE PET/LANOLIN 5 GM PACKET TP SCH ×4 (09:26→21:14)
[2019-04-27] MEDS: DICLOFENAC TOPICAL 100 GM GEL..GM. TP SCH ×2 (09:26→17:00)
[2019-04-27] MEDS: FINASTERIDE (5 MG) 5 MG TABLET GT SCH (09:26)
[2019-04-27] MEDS: HYDROCODONE/APAP 7.5/325MG 1 EACH TABLET GT PRN ×2 (11:56→23:12)
[2019-04-27] MEDS: [UNRECOGNIZED DRUG - OTHER] TP SCH ×2 (13:00→21:14)
[2019-04-27] MEDS: JEVITY 1.2 CAL 1,000 ML BOTTLE GT PRN (17:00)
[2019-04-27 19:59] VITALS: BP 120/75
[2019-04-27] MEDS: PRAVASTATIN SODIUM 20 MG TABLET GT SCH (21:14)
[2019-04-27] MEDS: BENAZEPRIL HCL 5 MG TABLET GT SCH (21:14)
[2019-04-27] MEDS: LATANOPROST EYE DROP 0.005% 2.5 ML BOTTLE EACHEYE SCH (21:14)
[2019-04-27] MEDS: LORATADINE 10 MG TABLET GT SCH (21:14)
--- NOTE | 2019-04-27 23:59 | NUR ---
PT RCVD TRACH'D ON COOL AEROSOL WITH CHARTED SETTINGS. PT FRANCIE TX WELL. SX DONE. PT TRACH IS PATENT AND SECURE. AMBU BAG AT BEDSIDE. Addendum: 04/27/19 at 2359 by LISETH MOCK RT Amended: Links added.
[2019-04-28] MEDS: IPRATROPIUM NEB FS 0.5 MG/2.5 ML AMPUL.NEB NEB SCH ×4 (00:44→19:39)
[2019-04-28] MEDS: CHLORHEXIDINE GLUCONATE 15 ML UDC MM SCH ×2 (05:30→18:38)
[2019-04-28 07:54] VITALS: BP 124/69
[2019-04-28] MEDS: HYDROGEN PEROXIDE 480 ML BOTTLE TP SCH ×2 (09:00→20:08)
--- NOTE | 2019-04-28 09:20 | NUR ---
Seen and examined by Dr. Edwards no new order given.
[2019-04-28] MEDS: FINASTERIDE (5 MG) 5 MG TABLET GT SCH (09:44)
[2019-04-28] MEDS: BIOTIN 5000 MCG GT SCH (09:44)
[2019-04-28] MEDS: RIFAXIMIN 550 MG TABLET GT SCH ×2 (09:44→16:52)
[2019-04-28] MEDS: CHOLECALCIFEROL (VITAMIN D 3) 400 UNIT TABLET GT SCH ×2 (09:44→21:05)
[2019-04-28] MEDS: POTASSIUM CHLORIDE GT SCH (09:44)
[2019-04-28] MEDS: LACTOBACILLUS RHAMNOSUS GG 1 EACH CAP.SPRINK GT SCH ×2 (09:44→16:52)
[2019-04-28] MEDS: VITS A AND D/WHITE PET/LANOLIN 5 GM PACKET TP SCH ×4 (09:44→21:05)
[2019-04-28] MEDS: DICLOFENAC TOPICAL 100 GM GEL..GM. TP SCH ×2 (09:45→16:52)
[2019-04-28] MEDS: VITAMINS A AND D 56.7 GM TUBE TP SCH ×2 (09:45→21:05)
--- NOTE | 2019-04-28 11:12 | NUR ---
SS Intervention: Per charge nurse, Akshat lewis, SKIP met with patients , Asha at pt.s bedside to discuss why Asha chose to clean the patient herself 04/22/19 after pt. had a bowel movement as opposed to allowing the CNAs to clean him. Asha expressed that the patient has soiled himself and allegedly got feces on his hand when he attempted to remove his diaper. Asha stated, sometimes when that happens he gets feces under fingernails and can touch the trach or his mouth, so I prefer to do it because I am thorough, I had to wash his hand 5 times. SW reassured Asha that CNAs are trained to properly clean and assist the pt. SW encouraged Asha to allow the CNAs to do their job and verbally state any concerns she may have. SW educated Asha that her actions may be interpreted as interfering with patient care. Asha expressed understanding and expressed that she would allow the nurses to provide appropriate care for the patient and verbally express any concerns she might have.
[2019-04-28] MEDS: [UNRECOGNIZED DRUG - OTHER] TP SCH ×2 (13:00→21:05)
--- NOTE | 2019-04-28 15:45 | NUR ---
INTERDISCIPLINARY TEAM PLAN OF CARE CONFERENCE was held today. The patient's responsible libertarian/ aunt, Krystal Gee [phone] could not attend or participate via phone conference. Charge nurse discussed previous transfer to ER, existing order to discontinue RNA because pt. has not had fever as of late and is ambulating. Per Charge Nurse, patient is stable. Dr. Mejia and interdisciplinary team discussed the current plan of care in detail. Current orders as well as treatments and medications were reviewed. See other discipline's IDT notes for further details. Addendum: 05/01/19 at 0819 by KALI VALDIVIA Corrected note : INTERDISCIPLINARY TEAM PLAN OF CARE CONFERENCE was held today. The patient's responsible libertarian/ , Asha Lopez [phone] could not attend or participate via phone conference. Charge nurse discussed previous transfer to ER, existing order to discontinue RNA because pt. has not had fever as of late and is ambulating. Per Charge Nurse, patient is stable. Dr. Mejia and interdisciplinary team discussed the current plan of care in detail. Current orders as well as treatments and medications were reviewed. See other discipline's IDT notes for further details.
[2019-04-28] MEDS: JEVITY 1.2 CAL 1,000 ML BOTTLE GT PRN (16:54)
[2019-04-28] MEDS: MAGNESIUM HYDROXIDE 30 ML UDC GT PRN (18:50)
--- NOTE | 2019-04-28 20:22 | NUR ---
PT RCVD TRACH'D ON COOL AEROSOL WITH CHARTED SETTINGS. PT FRANCIE TX WELL. SX DONE. PT TRACH IS PATENT AND SECURE. AMBU BAG AT BEDSIDE. Addendum: 04/28/19 at 2021 by LISETH MOCK RT Amended: Links added.
[2019-04-28 20:38] VITALS: BP 132/74
[2019-04-28] MEDS: LATANOPROST EYE DROP 0.005% 2.5 ML BOTTLE EACHEYE SCH (21:06)
[2019-04-28] MEDS: PRAVASTATIN SODIUM 20 MG TABLET GT SCH (21:06)
[2019-04-28] MEDS: LORATADINE 10 MG TABLET GT SCH (21:06)
[2019-04-28] MEDS: BENAZEPRIL HCL 5 MG TABLET GT SCH (21:06)
[2019-04-28] MEDS: HYDROCODONE/APAP 7.5/325MG 1 EACH TABLET GT PRN (23:01)
[2019-04-29] MEDS: IPRATROPIUM NEB FS 0.5 MG/2.5 ML AMPUL.NEB NEB SCH ×4 (00:40→20:12)
[2019-04-29] MEDS: CHLORHEXIDINE GLUCONATE 15 ML UDC MM SCH ×2 (05:32→18:02)
[2019-04-29 07:56] VITALS: BP 109/71
[2019-04-29] MEDS: VITS A AND D/WHITE PET/LANOLIN 5 GM PACKET TP SCH ×4 (09:00→21:02)
[2019-04-29] MEDS: VITAMINS A AND D 56.7 GM TUBE TP SCH ×2 (09:00→21:02)
[2019-04-29] MEDS: FINASTERIDE (5 MG) 5 MG TABLET GT SCH (09:37)
[2019-04-29] MEDS: POTASSIUM CHLORIDE GT SCH (09:37)
[2019-04-29] MEDS: LACTOBACILLUS RHAMNOSUS GG 1 EACH CAP.SPRINK GT SCH ×2 (09:37→17:00)
[2019-04-29] MEDS: BIOTIN 5000 MCG GT SCH (09:37)
[2019-04-29] MEDS: CHOLECALCIFEROL (VITAMIN D 3) 400 UNIT TABLET GT SCH ×2 (09:38→20:57)
[2019-04-29] MEDS: DICLOFENAC TOPICAL 100 GM GEL..GM. TP SCH ×2 (09:38→17:00)
[2019-04-29] MEDS: RIFAXIMIN 550 MG TABLET GT SCH ×2 (09:38→17:00)
[2019-04-29] MEDS: [UNRECOGNIZED DRUG - OTHER] TP SCH ×2 (12:40→20:58)
[2019-04-29] MEDS: JEVITY 1.2 CAL 1,000 ML BOTTLE GT PRN (15:12)
[2019-04-29 20:10] VITALS: BP 129/82
[2019-04-29] MEDS: HYDROGEN PEROXIDE 480 ML BOTTLE TP SCH (20:12)
[2019-04-29] MEDS: LORATADINE 10 MG TABLET GT SCH (21:02)
[2019-04-29] MEDS: LATANOPROST EYE DROP 0.005% 2.5 ML BOTTLE EACHEYE SCH (21:02)
[2019-04-29] MEDS: PRAVASTATIN SODIUM 20 MG TABLET GT SCH (21:03)
[2019-04-29] MEDS: BENAZEPRIL HCL 5 MG TABLET GT SCH (21:03)
[2019-04-30] MEDS: IPRATROPIUM NEB FS 0.5 MG/2.5 ML AMPUL.NEB NEB SCH ×4 (01:37→19:43)
[2019-04-30] MEDS: CHLORHEXIDINE GLUCONATE 15 ML UDC MM SCH ×2 (06:32→17:44)
[2019-04-30] MEDS: JEVITY 1.2 CAL 1,000 ML BOTTLE GT PRN (06:36)
[2019-04-30 07:42] VITALS: BP 117/72
[2019-04-30] MEDS: VITS A AND D/WHITE PET/LANOLIN 5 GM PACKET TP SCH ×4 (09:33→20:17)
[2019-04-30] MEDS: FINASTERIDE (5 MG) 5 MG TABLET GT SCH (09:33)
[2019-04-30] MEDS: RIFAXIMIN 550 MG TABLET GT SCH ×2 (09:33→16:33)
[2019-04-30] MEDS: BIOTIN 5000 MCG GT SCH (09:33)
[2019-04-30] MEDS: CHOLECALCIFEROL (VITAMIN D 3) 400 UNIT TABLET GT SCH ×2 (09:33→20:17)
[2019-04-30] MEDS: POTASSIUM CHLORIDE GT SCH (09:33)
[2019-04-30] MEDS: LACTOBACILLUS RHAMNOSUS GG 1 EACH CAP.SPRINK GT SCH ×2 (09:33→16:33)
[2019-04-30] MEDS: DICLOFENAC TOPICAL 100 GM GEL..GM. TP SCH ×2 (09:34→16:33)
[2019-04-30] MEDS: VITAMINS A AND D 56.7 GM TUBE TP SCH ×2 (09:34→20:18)
[2019-04-30] MEDS: [UNRECOGNIZED DRUG - OTHER] TP SCH ×2 (12:04→20:17)
[2019-04-30] MEDS: HYDROGEN PEROXIDE 480 ML BOTTLE TP SCH ×2 (16:13→19:43)
--- NOTE | 2019-04-30 19:53 | NUR ---
RT NOTE: PLACED TRACH PT ON COOL AEROSOL AT THIS TIME. AMBU BAG @ BEDSIDE. Q6 BREATHING TX GIVEN PER MD ORDERS WITH NO ADVERSE REACTION NOTED. SX DONE PRN. TRACH PATENT AND SECURED. TRACH CARE DONE. NO RESP DISTRESS NOTED AT THIS TIME. WILL CONTINUE TO MONITOR PT. Addendum: 05/01/19 at 0237 by LINNEA TOVAR RT Amended: Links added.
[2019-04-30 20:11] VITALS: BP 128/71
[2019-04-30] MEDS: LATANOPROST EYE DROP 0.005% 2.5 ML BOTTLE EACHEYE SCH (21:37)
[2019-04-30] MEDS: BENAZEPRIL HCL 5 MG TABLET GT SCH (21:37)
[2019-04-30] MEDS: LORATADINE 10 MG TABLET GT SCH (21:37)
[2019-04-30] MEDS: PRAVASTATIN SODIUM 20 MG TABLET GT SCH (21:40)
[2019-05-01] MEDS: IPRATROPIUM NEB FS 0.5 MG/2.5 ML AMPUL.NEB NEB SCH ×4 (01:43→18:59)
[2019-05-01] MEDS: CHLORHEXIDINE GLUCONATE 15 ML UDC MM SCH ×2 (05:07→17:35)
[2019-05-01] MEDS: JEVITY 1.2 CAL 1,000 ML BOTTLE GT PRN (05:07)
[2019-05-01 07:49] VITALS: BP 135/78
[2019-05-01] MEDS: POTASSIUM CHLORIDE GT SCH (08:15)
[2019-05-01] MEDS: FINASTERIDE (5 MG) 5 MG TABLET GT SCH (08:15)
[2019-05-01] MEDS: CHOLECALCIFEROL (VITAMIN D 3) 400 UNIT TABLET GT SCH ×2 (08:15→20:39)
[2019-05-01] MEDS: LACTOBACILLUS RHAMNOSUS GG 1 EACH CAP.SPRINK GT SCH ×2 (08:15→17:35)
[2019-05-01] MEDS: RIFAXIMIN 550 MG TABLET GT SCH ×2 (08:15→17:35)
[2019-05-01] MEDS: BIOTIN 5000 MCG GT SCH (08:15)
[2019-05-01] MEDS: VITAMINS A AND D 56.7 GM TUBE TP SCH ×2 (08:16→20:39)
[2019-05-01] MEDS: VITS A AND D/WHITE PET/LANOLIN 5 GM PACKET TP SCH ×4 (08:16→20:39)
[2019-05-01] MEDS: DICLOFENAC TOPICAL 100 GM GEL..GM. TP SCH ×2 (08:16→17:35)
[2019-05-01] MEDS: HYDROCODONE/APAP 7.5/325MG 1 EACH TABLET GT PRN (08:21)
--- NOTE | 2019-05-01 08:46 | NUR ---
RT NOTE: REC'D TRACH PT ON COOL AEROSOL THEN PLACED ON ROOM AIR PER MD ORDERS. GUILLEU BAG @ BEDSIDE. Q6 BREATHING TX GIVEN PER MD ORDERS WITH NO ADVERSE REACTION NOTED. SX DONE PRN. TRACH PATENT AND SECURED. TRACH CARE DONE. NO SOB NOTED AT THIS TIME. WILL CONTINUE TO MONITOR. Addendum: 05/01/19 at 0847 by KRYSTLE ELIZABETH RT Amended: Links added.
[2019-05-01] MEDS: HYDROGEN PEROXIDE 480 ML BOTTLE TP SCH ×2 (09:00→21:00)
[2019-05-01] MEDS: [UNRECOGNIZED DRUG - OTHER] TP SCH ×2 (13:44→20:39)
--- NOTE | 2019-05-01 16:30 | NUR ---
SURGICAL BRACE MAKER assigned had turned and repositioned patient. SURGICAL BRACE MAKER assigned asked to go check how she left the patient repositioned. Went inside patient room patient was repositioned properly to the left side clean and dry. No distress noted. Pillows properly positioned. HOB elevated. Trach with cool aerosol as ordered. GT in place patent no residual. Explained to I needed to double check how SURGICAL BRACE MAKER had repositioned patient. stated "I did not like how she repositioned him" started to remove pillow between the knees and she moved his lower extremities to her side. She was in the left side of the patient bed. Later approached me and stated that the SURGICAL BRACE MAKER had not put the head pillow properly. Reminded that I had gone myself right after the SURGICAL BRACE MAKER had repositioned him. claims patient did not move and that she did not moved the pillow. RN spa supervisor notified. Sales Development Representative notified. Patient kept clean and comfortable. All needs met and attended.
[2019-05-01] MEDS: MAGNESIUM HYDROXIDE 30 ML UDC GT PRN (17:36)
[2019-05-01] MEDS: METOCLOPRAMIDE HCL 10 MG TABLET GT PRN (17:36)
[2019-05-01 21:07] VITALS: BP 144/79
[2019-05-01] MEDS: LORATADINE 10 MG TABLET GT SCH (21:33)
[2019-05-01] MEDS: BENAZEPRIL HCL 5 MG TABLET GT SCH (21:33)
[2019-05-01] MEDS: LATANOPROST EYE DROP 0.005% 2.5 ML BOTTLE EACHEYE SCH (21:33)
[2019-05-01] MEDS: PRAVASTATIN SODIUM 20 MG TABLET GT SCH (21:34)
[2019-05-02] MEDS: IPRATROPIUM NEB FS 0.5 MG/2.5 ML AMPUL.NEB NEB SCH ×4 (00:37→20:01)
[2019-05-02] MEDS: CHLORHEXIDINE GLUCONATE 15 ML UDC MM SCH ×2 (05:38→18:01)
[2019-05-02] MEDS: BISACODYL SUPP (10 MG) 10 MG/SUPP.RECT SUPP.RECT RC PRN (06:47)
[2019-05-02] MEDS: JEVITY 1.2 CAL 1,000 ML BOTTLE GT PRN (07:30)
[2019-05-02] MEDS: HYDROGEN PEROXIDE 480 ML BOTTLE TP SCH ×2 (08:15→21:00)
[2019-05-02] MEDS: FINASTERIDE (5 MG) 5 MG TABLET GT SCH (08:59)
[2019-05-02] MEDS: RIFAXIMIN 550 MG TABLET GT SCH ×2 (08:59→17:00)
[2019-05-02] MEDS: VITS A AND D/WHITE PET/LANOLIN 5 GM PACKET TP SCH ×4 (08:59→20:34)
[2019-05-02] MEDS: BIOTIN 5000 MCG GT SCH (08:59)
[2019-05-02] MEDS: POTASSIUM CHLORIDE GT SCH (08:59)
[2019-05-02] MEDS: LACTOBACILLUS RHAMNOSUS GG 1 EACH CAP.SPRINK GT SCH ×2 (08:59→17:00)
[2019-05-02] MEDS: DICLOFENAC TOPICAL 100 GM GEL..GM. TP SCH ×2 (08:59→17:00)
[2019-05-02] MEDS: CHOLECALCIFEROL (VITAMIN D 3) 400 UNIT TABLET GT SCH ×2 (08:59→20:33)
[2019-05-02] MEDS: VITAMINS A AND D 56.7 GM TUBE TP SCH ×2 (08:59→20:34)
[2019-05-02 10:21] VITALS: BP 135/86
[2019-05-02] MEDS: [UNRECOGNIZED DRUG - OTHER] TP SCH ×2 (12:55→20:34)
[2019-05-02] MEDS: HYDROCODONE/APAP 7.5/325MG 1 EACH TABLET GT PRN (13:06)
[2019-05-02 20:24] VITALS: BP 137/84
[2019-05-02] MEDS: LATANOPROST EYE DROP 0.005% 2.5 ML BOTTLE EACHEYE SCH (21:26)
[2019-05-02] MEDS: BENAZEPRIL HCL 5 MG TABLET GT SCH (21:26)
[2019-05-02] MEDS: PRAVASTATIN SODIUM 20 MG TABLET GT SCH (21:26)
[2019-05-02] MEDS: LORATADINE 10 MG TABLET GT SCH (21:26)
--- NOTE | 2019-05-02 22:51 | NUR ---
RT NOTE PT RECEIVED TRACHED ON ROOM AIR. PLACED PT ON TRACH COLLAR ON COOL AEROSOL @ 28%. PORTEX [address] AMBU BAG/BACK UP TRACH @ BEDSIDE. TX GIVEN, NO ADVERSE REACTIONS NOTED. SX DONE, TRACH SECURED AND PATENT. WATER LEVEL GOOD. NO SOB NOTED. WILL MONITOR T/O SHIFT. Addendum: 05/02/19 at 2252 by CHRISTIANO MCCALL RT Amended: Links added.
[2019-05-03] MEDS: IPRATROPIUM NEB FS 0.5 MG/2.5 ML AMPUL.NEB NEB SCH ×4 (02:10→19:36)
[2019-05-03] MEDS: CHLORHEXIDINE GLUCONATE 15 ML UDC MM SCH ×2 (05:22→18:00)
[2019-05-03] MEDS: JEVITY 1.2 CAL 1,000 ML BOTTLE GT PRN (05:23)
[2019-05-03 08:02] VITALS: BP 149/86
[2019-05-03] MEDS: BIOTIN 5000 MCG GT SCH (08:33)
[2019-05-03] MEDS: CHOLECALCIFEROL (VITAMIN D 3) 400 UNIT TABLET GT SCH ×2 (08:33→21:07)
[2019-05-03] MEDS: RIFAXIMIN 550 MG TABLET GT SCH ×2 (08:33→16:34)
[2019-05-03] MEDS: LACTOBACILLUS RHAMNOSUS GG 1 EACH CAP.SPRINK GT SCH ×2 (08:33→16:34)
[2019-05-03] MEDS: FINASTERIDE (5 MG) 5 MG TABLET GT SCH (08:33)
[2019-05-03] MEDS: POTASSIUM CHLORIDE GT SCH (08:33)
[2019-05-03] MEDS: HYDROGEN PEROXIDE 480 ML BOTTLE TP SCH ×2 (09:00→19:36)
[2019-05-03] MEDS: DICLOFENAC TOPICAL 100 GM GEL..GM. TP SCH ×2 (09:00→16:34)
[2019-05-03] MEDS: VITS A AND D/WHITE PET/LANOLIN 5 GM PACKET TP SCH ×4 (09:00→21:07)
[2019-05-03] MEDS: VITAMINS A AND D 56.7 GM TUBE TP SCH ×2 (09:00→21:07)
[2019-05-03] MEDS: [UNRECOGNIZED DRUG - OTHER] TP SCH ×2 (13:35→21:07)
--- NOTE | 2019-05-03 16:02 | NUR ---
May Family Support Group Note Goal: Residents family will attend family support group held Friday, May 03, 2019 from 11 am-12 pm. Intervention: SW facilitated family support group and started off with icebreaker consisting of acknowledgements and listing an adjective that described how the family felt at the moment. W explored how family destresses and educated family on a range of additional de-stressors. SW explored the familys support systems and how they are shown support. SW provided validation, used reflective listening. SW recognized Asha for her willingness to attend and support for the patient. Response: Asha is Honduran speaking only. Asha expressed that in the moment she felt: sick but expressed that she is getting better. Asha expressed that her support group consists of her daughters. Per Asha, she cries to destress when feeling overwhelmed. Asha stated, thank you for having us, we enjoyed this group. Plan: Family was invited to attend next family support Group held June 07, 2019, 11 am-12 pm.
--- NOTE | 2019-05-03 19:46 | NUR ---
RT NOTE: PLACED TRACH PT ON COOL AEROSOL AT THIS TIME. AMBU BAG @ BEDSIDE. Q6 BREATHING TX GIVEN PER MD ORDERS WITH NO ADVERSE REACTION NOTED. SX DONE PRN. TRACH PATENT AND SECURED. TRACH CARE DONE. NO RESP DISTRESS NOTED AT THIS TIME. WILL CONTINUE TO MONITOR PT. Addendum: 05/04/19 at 0234 by LINNEA TOVAR RT Amended: Links added.
[2019-05-03 20:27] VITALS: BP 128/68
[2019-05-03] MEDS: BENAZEPRIL HCL 5 MG TABLET GT SCH (21:08)
[2019-05-03] MEDS: LORATADINE 10 MG TABLET GT SCH (21:08)
[2019-05-03] MEDS: LATANOPROST EYE DROP 0.005% 2.5 ML BOTTLE EACHEYE SCH (21:08)
[2019-05-03] MEDS: PRAVASTATIN SODIUM 20 MG TABLET GT SCH (21:08)
[2019-05-04] MEDS: IPRATROPIUM NEB FS 0.5 MG/2.5 ML AMPUL.NEB NEB SCH ×4 (01:22→19:47)
[2019-05-04] MEDS: JEVITY 1.2 CAL 1,000 ML BOTTLE GT PRN (04:01)
[2019-05-04] MEDS: CHLORHEXIDINE GLUCONATE 15 ML UDC MM SCH ×2 (05:26→18:32)
--- NOTE | 2019-05-04 07:00 | NUR ---
RESIDENT REMOVED DIAPER,CLOTHING,THREW PILLOWS AND BLANKET ON THE FLOOR.REMOVED SIDE RAILS PADDING.BESSEMER CONVERTER BLOWER NOTED THE LEFT LOWER ARM WITH OPEN SKIN ABRASIONS WITH BLEEDING NOTED MINIMAL AMOUNT.TREATMENT INITIATED WITH TRIPLE ATB COVER WITH NON ADHERENT DRESSING.NOTIFIED DAUGHTER ABHI WITH BULMARO AND SHE SAID SHE WILL INFORM HER MOTHER.WILL ENDORSE.
[2019-05-04 08:11] VITALS: BP 129/88
--- NOTE | 2019-05-04 08:42 | NUR ---
Seen and examined by Dr. Edwards, NNO given at this time. Mrs. Lopez informed of the open skin in the L lower arm she said that she is aware already.
[2019-05-04] MEDS: LACTOBACILLUS RHAMNOSUS GG 1 EACH CAP.SPRINK GT SCH ×2 (08:49→16:38)
[2019-05-04] MEDS: CHOLECALCIFEROL (VITAMIN D 3) 400 UNIT TABLET GT SCH ×2 (08:49→21:48)
[2019-05-04] MEDS: BIOTIN 5000 MCG GT SCH (08:49)
[2019-05-04] MEDS: FINASTERIDE (5 MG) 5 MG TABLET GT SCH (08:49)
[2019-05-04] MEDS: RIFAXIMIN 550 MG TABLET GT SCH ×2 (08:49→16:38)
[2019-05-04] MEDS: POTASSIUM CHLORIDE GT SCH (08:49)
--- NOTE | 2019-05-04 09:08 | NUR ---
RT NOTE: REC'D TRACH PT ON COOL AEROSOL THEN PLACED ON ROOM AIR PER MD ORDER. GUILLEU BAG @ BEDSIDE. Q6 BREATHING TX GIVEN PER MD ORDERS W NO ADVERSE REACTION NOTED. SX DONE PRN. TRACH PATENT AND SECURED. TRACH CARE DONE. NO RESP DISTRESS NOTED AT THIS TIME. WILL CONTINUE TO MONITOR. Addendum: 05/04/19 at 0909 by KRYSTLE ELIZABETH RT Amended: Links added.
[2019-05-04] MEDS: DICLOFENAC TOPICAL 100 GM GEL..GM. TP SCH ×2 (09:10→16:38)
[2019-05-04] MEDS: VITAMINS A AND D 56.7 GM TUBE TP SCH ×2 (09:10→21:48)
[2019-05-04] MEDS: VITS A AND D/WHITE PET/LANOLIN 5 GM PACKET TP SCH ×4 (09:10→21:48)
[2019-05-04] MEDS: HYDROGEN PEROXIDE 480 ML BOTTLE TP SCH ×2 (09:15→19:47)
[2019-05-04] MEDS: [UNRECOGNIZED DRUG - OTHER] TP SCH ×2 (13:00→21:48)
--- NOTE | 2019-05-04 19:20 | NUR ---
Seen and examined by ISABELA VORA.
[2019-05-04 19:42] VITALS: BP 129/85
--- NOTE | 2019-05-04 19:57 | NUR ---
RT NOTE: RECEIVED TRACH PT ON ROOM AIR. PLACE PT ON COOL AEROSOL AT THIS TIME. AMBU BAG @ BEDSIDE. Q6 BREATHING TX GIVEN PER MD ORDERS WITH NO ADVERSE REACTION NOTED. SX DONE PRN. TRACH PATENT AND SECURED. TRACH CARE DONE. NO RESP DISTRESS NOTED AT THIS TIME. WILL CONTINUE TO MONITOR PT Addendum: 05/05/19 at 0211 by LINNEA TOVAR RT Amended: Links added.
[2019-05-04] MEDS: PRAVASTATIN SODIUM 20 MG TABLET GT SCH (21:48)
[2019-05-04] MEDS: LATANOPROST EYE DROP 0.005% 2.5 ML BOTTLE EACHEYE SCH (21:48)
[2019-05-04] MEDS: BENAZEPRIL HCL 5 MG TABLET GT SCH (21:48)
[2019-05-04] MEDS: LORATADINE 10 MG TABLET GT SCH (21:48)
[2019-05-05] MEDS: IPRATROPIUM NEB FS 0.5 MG/2.5 ML AMPUL.NEB NEB SCH ×4 (01:44→20:04)
[2019-05-05] MEDS: CHLORHEXIDINE GLUCONATE 15 ML UDC MM SCH (06:25)
[2019-05-05 07:58] VITALS: BP 132/72
[2019-05-05] MEDS: HYDROGEN PEROXIDE 480 ML BOTTLE TP SCH ×2 (09:09→21:02)
[2019-05-05] MEDS: VITAMINS A AND D 56.7 GM TUBE TP SCH ×2 (09:21→20:26)
[2019-05-05] MEDS: BIOTIN 5000 MCG GT SCH (09:21)
[2019-05-05] MEDS: RIFAXIMIN 550 MG TABLET GT SCH ×2 (09:21→16:43)
[2019-05-05] MEDS: POTASSIUM CHLORIDE GT SCH (09:21)
[2019-05-05] MEDS: LACTOBACILLUS RHAMNOSUS GG 1 EACH CAP.SPRINK GT SCH ×2 (09:21→16:43)
[2019-05-05] MEDS: CHOLECALCIFEROL (VITAMIN D 3) 400 UNIT TABLET GT SCH ×2 (09:21→20:23)
[2019-05-05] MEDS: FINASTERIDE (5 MG) 5 MG TABLET GT SCH (09:21)
[2019-05-05] MEDS: DICLOFENAC TOPICAL 100 GM GEL..GM. TP SCH ×2 (09:21→16:43)
[2019-05-05] MEDS: VITS A AND D/WHITE PET/LANOLIN 5 GM PACKET TP SCH ×4 (09:21→20:26)
[2019-05-05] MEDS ORDERED: INFLUENZA VACCINE 2019-20 0.5 ML DISP.SYRIN IM ONE (10:00)
[2019-05-05] MEDS: [UNRECOGNIZED DRUG - OTHER] TP SCH ×2 (12:40→20:26)
--- NOTE | 2019-05-05 17:38 | NUR ---
RT PATIENT WAS RECEIVED ON 28% COOL AEROSOL . AIRWAY PATENT AND SECURED. PATIENT STABLE THROUGHOUT THE SHIFT. WILL CONTINUE TO MONITOR. Addendum: 05/05/19 at 1738 by LUANN LAFLEUR RT Amended: Links added.
[2019-05-05 20:03] VITALS: BP 133/80
[2019-05-05] MEDS: BENAZEPRIL HCL 5 MG TABLET GT SCH (21:41)
[2019-05-05] MEDS: LORATADINE 10 MG TABLET GT SCH (21:41)
[2019-05-05] MEDS: LATANOPROST EYE DROP 0.005% 2.5 ML BOTTLE EACHEYE SCH (21:41)
[2019-05-05] MEDS: PRAVASTATIN SODIUM 20 MG TABLET GT SCH (21:42)
[2019-05-05] MEDS: GLYCOPYRROLATE 1 MG TABLET GT PRN (22:07)
[2019-05-05] MEDS: JEVITY 1.2 CAL 1,000 ML BOTTLE GT PRN (22:39)
[2019-05-06] MEDS: IPRATROPIUM NEB FS 0.5 MG/2.5 ML AMPUL.NEB NEB SCH ×4 (02:06→19:42)
--- NOTE | 2019-05-06 06:05 | NUR ---
S/P Flu vaccination - afebrile.
[2019-05-06] MEDS: CHLORHEXIDINE GLUCONATE 15 ML UDC MM SCH ×2 (06:24→17:02)
[2019-05-06] MEDS: HYDROGEN PEROXIDE 480 ML BOTTLE TP SCH ×2 (08:16→21:55)
[2019-05-06] MEDS: BIOTIN 5000 MCG GT SCH (08:50)
[2019-05-06] MEDS: FINASTERIDE (5 MG) 5 MG TABLET GT SCH (08:50)
[2019-05-06] MEDS: LACTOBACILLUS RHAMNOSUS GG 1 EACH CAP.SPRINK GT SCH ×2 (08:50→16:59)
[2019-05-06] MEDS: POTASSIUM CHLORIDE GT SCH (08:50)
[2019-05-06] MEDS: VITAMINS A AND D 56.7 GM TUBE TP SCH ×2 (08:50→21:31)
[2019-05-06] MEDS: VITS A AND D/WHITE PET/LANOLIN 5 GM PACKET TP SCH ×4 (08:50→21:31)
[2019-05-06] MEDS: DICLOFENAC TOPICAL 100 GM GEL..GM. TP SCH ×2 (08:50→16:59)
[2019-05-06] MEDS: RIFAXIMIN 550 MG TABLET GT SCH ×2 (08:50→16:59)
[2019-05-06] MEDS: CHOLECALCIFEROL (VITAMIN D 3) 400 UNIT TABLET GT SCH ×2 (08:50→21:30)
[2019-05-06 11:12] VITALS: BP 125/80
--- NOTE | 2019-05-06 11:27 | NUR ---
Notified pt's that pt received the flu vaccine. No adverse reactions to flu vaccine noted.
[2019-05-06] MEDS: [UNRECOGNIZED DRUG - OTHER] TP SCH ×2 (12:36→21:31)
[2019-05-06] MEDS: JEVITY 1.2 CAL 1,000 ML BOTTLE GT PRN (17:03)
[2019-05-06] MEDS: HYDROCODONE/APAP 7.5/325MG 1 EACH TABLET GT PRN (17:58)
[2019-05-06 21:31] VITALS: BP 135/81
[2019-05-06] MEDS: LORATADINE 10 MG TABLET GT SCH (21:32)
[2019-05-06] MEDS: LATANOPROST EYE DROP 0.005% 2.5 ML BOTTLE EACHEYE SCH (21:32)
[2019-05-06] MEDS: PRAVASTATIN SODIUM 20 MG TABLET GT SCH (21:32)
[2019-05-06] MEDS: BENAZEPRIL HCL 5 MG TABLET GT SCH (21:32)
[2019-05-07] MEDS: IPRATROPIUM NEB FS 0.5 MG/2.5 ML AMPUL.NEB NEB SCH ×4 (01:38→19:32)
[2019-05-07] MEDS: CHLORHEXIDINE GLUCONATE 15 ML UDC MM SCH ×2 (05:30→18:18)
[2019-05-07] MEDS: JEVITY 1.2 CAL 1,000 ML BOTTLE GT PRN (06:34)
[2019-05-07 08:04] VITALS: BP 126/65
[2019-05-07] MEDS: HYDROGEN PEROXIDE 480 ML BOTTLE TP SCH ×2 (08:11→21:08)
[2019-05-07] MEDS: VITS A AND D/WHITE PET/LANOLIN 5 GM PACKET TP SCH ×4 (09:12→20:55)
[2019-05-07] MEDS: CHOLECALCIFEROL (VITAMIN D 3) 400 UNIT TABLET GT SCH ×2 (09:12→20:54)
[2019-05-07] MEDS: VITAMINS A AND D 56.7 GM TUBE TP SCH ×2 (09:12→20:55)
[2019-05-07] MEDS: FINASTERIDE (5 MG) 5 MG TABLET GT SCH (09:12)
[2019-05-07] MEDS: BIOTIN 5000 MCG GT SCH (09:12)
[2019-05-07] MEDS: LACTOBACILLUS RHAMNOSUS GG 1 EACH CAP.SPRINK GT SCH ×2 (09:12→16:57)
[2019-05-07] MEDS: DICLOFENAC TOPICAL 100 GM GEL..GM. TP SCH ×2 (09:12→16:57)
[2019-05-07] MEDS: RIFAXIMIN 550 MG TABLET GT SCH ×2 (09:12→16:57)
[2019-05-07] MEDS: POTASSIUM CHLORIDE GT SCH (09:12)
[2019-05-07] MEDS: [UNRECOGNIZED DRUG - OTHER] TP SCH ×2 (12:45→20:55)
[2019-05-07 20:58] VITALS: BP 137/85
--- NOTE | 2019-05-07 21:02 | NUR ---
RN NOTES S/P flu vaccine with no A/R noted. Will continue to monitor.
[2019-05-07] MEDS: LATANOPROST EYE DROP 0.005% 2.5 ML BOTTLE EACHEYE SCH (22:20)
[2019-05-07] MEDS: PRAVASTATIN SODIUM 20 MG TABLET GT SCH (22:20)
[2019-05-07] MEDS: LORATADINE 10 MG TABLET GT SCH (22:20)
[2019-05-07] MEDS: BENAZEPRIL HCL 5 MG TABLET GT SCH (22:20)
[2019-05-08] MEDS: IPRATROPIUM NEB FS 0.5 MG/2.5 ML AMPUL.NEB NEB SCH ×4 (01:50→19:18)
[2019-05-08] MEDS: JEVITY 1.2 CAL 1,000 ML BOTTLE GT PRN (05:35)
[2019-05-08] MEDS: CHLORHEXIDINE GLUCONATE 15 ML UDC MM SCH ×2 (05:36→17:30)
--- NOTE | 2019-05-08 05:51 | NUR ---
RT PATIENT WAS RECEIVED ON 28% COOL AEROSOL . AIRWAY PATENT AND SECURED. PATIENT STABLE THROUGHOUT THE SHIFT. WILL CONTINUE TO MONITOR. Addendum: 05/08/19 at 0551 by LUANN LAFLEUR RT Amended: Links added.
[2019-05-08 07:38] VITALS: BP 133/76
[2019-05-08] MEDS: CHOLECALCIFEROL (VITAMIN D 3) 400 UNIT TABLET GT SCH ×2 (08:01→20:55)
[2019-05-08] MEDS: FINASTERIDE (5 MG) 5 MG TABLET GT SCH (08:01)
[2019-05-08] MEDS: RIFAXIMIN 550 MG TABLET GT SCH ×2 (08:01→17:29)
[2019-05-08] MEDS: BIOTIN 5000 MCG GT SCH (08:01)
[2019-05-08] MEDS: LACTOBACILLUS RHAMNOSUS GG 1 EACH CAP.SPRINK GT SCH ×2 (08:01→17:29)
[2019-05-08] MEDS: VITS A AND D/WHITE PET/LANOLIN 5 GM PACKET TP SCH ×4 (08:01→21:05)
[2019-05-08] MEDS: POTASSIUM CHLORIDE GT SCH (08:01)
[2019-05-08] MEDS: VITAMINS A AND D 56.7 GM TUBE TP SCH ×2 (08:01→21:05)
[2019-05-08] MEDS: DICLOFENAC TOPICAL 100 GM GEL..GM. TP SCH ×2 (08:01→17:29)
--- NOTE | 2019-05-08 08:41 | NUR ---
RT NOTE: REC'D TRACH PT ON COOL AEROSOL THEN PLACED ON ROOM AIR PER MD ORDERS. GUILLEU BAG @ BEDSIDE. Q6 BREATHING TX GIVEN PER MD ORDERS WITH NO ADVERSE REACTION NOTED. SX DONE PRN. TRACH PATENT AND SECURED. TRACH CARE DONE. NO SOB NOTED AT THIS TIME. WILL CONTINUE TO MONITOR. Addendum: 05/08/19 at 0842 by KRYSTLE ELIZABETH RT Amended: Links added.
[2019-05-08] MEDS: HYDROGEN PEROXIDE 480 ML BOTTLE TP SCH ×2 (09:00→21:00)
[2019-05-08] MEDS: [UNRECOGNIZED DRUG - OTHER] TP SCH ×2 (12:51→21:05)
--- NOTE | 2019-05-08 17:01 | NUR ---
No adverse reaction to flu vaccine noted.
[2019-05-08 20:38] VITALS: BP 126/78
[2019-05-08] MEDS: LORATADINE 10 MG TABLET GT SCH (21:05)
[2019-05-08] MEDS: LATANOPROST EYE DROP 0.005% 2.5 ML BOTTLE EACHEYE SCH (21:05)
[2019-05-08] MEDS: BENAZEPRIL HCL 5 MG TABLET GT SCH (21:06)
[2019-05-08] MEDS: PRAVASTATIN SODIUM 20 MG TABLET GT SCH (21:27)
[2019-05-09] MEDS: IPRATROPIUM NEB FS 0.5 MG/2.5 ML AMPUL.NEB NEB SCH ×4 (01:15→19:47)
[2019-05-09] MEDS: JEVITY 1.2 CAL 1,000 ML BOTTLE GT PRN (01:38)
[2019-05-09] MEDS: CHLORHEXIDINE GLUCONATE 15 ML UDC MM SCH ×2 (05:32→17:16)
[2019-05-09 07:35] VITALS: BP 122/83
[2019-05-09] MEDS: RIFAXIMIN 550 MG TABLET GT SCH ×2 (08:08→16:42)
[2019-05-09] MEDS: POTASSIUM CHLORIDE GT SCH (08:08)
[2019-05-09] MEDS: BIOTIN 5000 MCG GT SCH (08:08)
[2019-05-09] MEDS: LACTOBACILLUS RHAMNOSUS GG 1 EACH CAP.SPRINK GT SCH ×2 (08:08→16:42)
[2019-05-09] MEDS: FINASTERIDE (5 MG) 5 MG TABLET GT SCH (08:08)
[2019-05-09] MEDS: CHOLECALCIFEROL (VITAMIN D 3) 400 UNIT TABLET GT SCH ×2 (08:08→20:31)
[2019-05-09] MEDS: HYDROGEN PEROXIDE 480 ML BOTTLE TP SCH ×2 (08:33→19:47)
[2019-05-09] MEDS: DICLOFENAC TOPICAL 100 GM GEL..GM. TP SCH ×2 (09:00→16:42)
[2019-05-09] MEDS: VITAMINS A AND D 56.7 GM TUBE TP SCH ×2 (09:00→20:32)
[2019-05-09] MEDS: VITS A AND D/WHITE PET/LANOLIN 5 GM PACKET TP SCH ×4 (09:00→20:32)
[2019-05-09] MEDS: [UNRECOGNIZED DRUG - OTHER] TP SCH ×2 (13:00→20:32)
[2019-05-09] MEDS: MAGNESIUM HYDROXIDE 30 ML UDC GT PRN ×2 (16:49→16:51)
--- NOTE | 2019-05-09 18:04 | NUR ---
Dr Edwards ordered to DC SCD. Pt ambulates.
--- NOTE | 2019-05-09 19:58 | NUR ---
RT NOTE: RECEIVED TRACH PT ON ROOM AIR. PLACE PT ON COOL AEROSOL AT THIS TIME. AMBU BAG @ BEDSIDE. Q6 BREATHING TX GIVEN PER MD ORDERS WITH NO ADVERSE REACTION NOTED. SX DONE PRN. TRACH PATENT AND SECURED. TRACH CARE DONE. NO RESP DISTRESS NOTED AT THIS TIME. WILL CONTINUE TO MONITOR PT Addendum: 05/10/19 at 0306 by LINNEA TOVAR RT Amended: Links added.
[2019-05-09 20:07] VITALS: BP 135/80
[2019-05-09] MEDS: BENAZEPRIL HCL 5 MG TABLET GT SCH (22:17)
[2019-05-09] MEDS: LORATADINE 10 MG TABLET GT SCH (22:17)
[2019-05-09] MEDS: PRAVASTATIN SODIUM 20 MG TABLET GT SCH (22:17)
[2019-05-09] MEDS: LATANOPROST EYE DROP 0.005% 2.5 ML BOTTLE EACHEYE SCH (22:17)
[2019-05-10] MEDS: IPRATROPIUM NEB FS 0.5 MG/2.5 ML AMPUL.NEB NEB SCH ×4 (01:48→19:25)
[2019-05-10] MEDS: CHLORHEXIDINE GLUCONATE 15 ML UDC MM SCH ×2 (05:42→17:32)
[2019-05-10] MEDS: JEVITY 1.2 CAL 1,000 ML BOTTLE GT PRN (07:04)
[2019-05-10] MEDS: LACTOBACILLUS RHAMNOSUS GG 1 EACH CAP.SPRINK GT SCH ×2 (08:00→17:32)
[2019-05-10] MEDS: POTASSIUM CHLORIDE GT SCH (08:01)
[2019-05-10] MEDS: RIFAXIMIN 550 MG TABLET GT SCH ×2 (08:03→17:32)
[2019-05-10] MEDS: CHOLECALCIFEROL (VITAMIN D 3) 400 UNIT TABLET GT SCH ×2 (08:03→20:57)
[2019-05-10] MEDS: VITAMINS A AND D 56.7 GM TUBE TP SCH ×2 (08:03→20:57)
[2019-05-10] MEDS: DICLOFENAC TOPICAL 100 GM GEL..GM. TP SCH ×2 (08:03→17:32)
[2019-05-10] MEDS: BIOTIN 5000 MCG GT SCH (08:03)
[2019-05-10] MEDS: VITS A AND D/WHITE PET/LANOLIN 5 GM PACKET TP SCH ×4 (08:03→20:57)
[2019-05-10] MEDS: FINASTERIDE (5 MG) 5 MG TABLET GT SCH (08:03)
[2019-05-10] MEDS: MAGNESIUM HYDROXIDE 30 ML UDC GT PRN (08:04)
[2019-05-10 08:05] VITALS: BP 129/80
[2019-05-10] MEDS: HYDROGEN PEROXIDE 480 ML BOTTLE TP SCH ×2 (08:13→21:00)
--- NOTE | 2019-05-10 12:35 | NUR ---
During suction procedure, in room moving side to side of recliner w/c looking at patient facing him almost going around him and almost getting on top of bed behind the w/c telling him, you will go to bed soon (Irish Speaking). Patient was next to right side of bed facing the wall. Bedside table to the left of the patient with the suction kit on top. This nurse in front of patient during procedure. W/C locked. Suctioned patient three times with moderate amount of clear secretions. About to put back the inner cannula back when suddenly patient leaned forward and got up. Patient in that moment moved the w/c out and patient went backward falling on his buttocks and bilateral hands touching the floor. Attempted to catch patient but was too late. Patient trying to get up. Told to wait, noted very impulsive started to grab patient from the the pants and left hand getting patient up, told to wait, that she had to wait, patient shelter up she put him in bed by herself she could not wait for help. This nurse was trying to maintain patient patient safety throughout her getting the patient up since she did not stop. does not follow instructions that she has to wait for assessment and put patient back to bed by nursing staffl.Once up standing sat in bed and she put him in bed impulsively not giving a chance to properly assist patient. Once in bed, this nurse put side rails up. HOB. RN customer records division supervisor notified. Marketer notified. gas systems worker notified. Patient teaching provided to that next time even for suctioning to please she needs to wait outside for patient safety, she got upset and stated "I did not move the chair, I just removed the breaks". "I dont have to got out when he is suctioned" ROM adequate. No new skin abnormalities noted per body assessment. Declines pain. Per patient, unable to make needs known of why he got up. Patient is able to move backwards and forward when in bed propelling self at times.
[2019-05-10 12:50] VITALS: BP 122/79
[2019-05-10] MEDS: [UNRECOGNIZED DRUG - OTHER] TP SCH ×2 (13:08→20:57)
--- NOTE | 2019-05-10 15:55 | NUR ---
SW was informed of resident's fall from nurseAmelie via voicemail. SW met with nursing staff at 2:30pm to discuss the matter and could not meet with pt.'s , Asha as she had left the facility. SW unavailable prior to 2:30pm as was in a professional development training. SW to meet with pt.'s , Asha to process the matter and educate family about patient safety, stepping outside while nursing staff service the patient, and not interfering with resident care.
--- NOTE | 2019-05-10 16:00 | NUR ---
Notified Dr. Edwards of fall incident. Body checked done no injuries noted, no bruising or bump noted. Patient able to do ROM without any c/o pain or facial grimacing. Dr. Edwards also made aware that patient's urine has very strong odor despite GT flushing of 250 ml [id number]. No new order given at this time.
[2019-05-10 20:28] VITALS: BP 141/92
[2019-05-10] MEDS: PRAVASTATIN SODIUM 20 MG TABLET GT SCH (21:17)
[2019-05-10] MEDS: LATANOPROST EYE DROP 0.005% 2.5 ML BOTTLE EACHEYE SCH (21:17)
[2019-05-10] MEDS: LORATADINE 10 MG TABLET GT SCH (21:17)
[2019-05-10] MEDS: BENAZEPRIL HCL 5 MG TABLET GT SCH (21:17)
[2019-05-11] MEDS: IPRATROPIUM NEB FS 0.5 MG/2.5 ML AMPUL.NEB NEB SCH ×4 (00:24→20:11)
[2019-05-11] MEDS: JEVITY 1.2 CAL 1,000 ML BOTTLE GT PRN (03:00)
[2019-05-11] MEDS: CHLORHEXIDINE GLUCONATE 15 ML UDC MM SCH ×2 (05:38→17:49)
--- NOTE | 2019-05-11 07:01 | NUR ---
Patient vitals sign stable,awake and alert.Denies pain.Slept well during the night.Will continue to monitor.
[2019-05-11 07:39] VITALS: BP 134/79
[2019-05-11] MEDS: HYDROGEN PEROXIDE 480 ML BOTTLE TP SCH ×2 (08:16→21:45)
[2019-05-11] MEDS: DICLOFENAC TOPICAL 100 GM GEL..GM. TP SCH ×2 (08:49→17:49)
[2019-05-11] MEDS: RIFAXIMIN 550 MG TABLET GT SCH ×2 (08:49→17:49)
[2019-05-11] MEDS: LACTOBACILLUS RHAMNOSUS GG 1 EACH CAP.SPRINK GT SCH ×2 (08:49→17:49)
[2019-05-11] MEDS: FINASTERIDE (5 MG) 5 MG TABLET GT SCH (08:49)
[2019-05-11] MEDS: CHOLECALCIFEROL (VITAMIN D 3) 400 UNIT TABLET GT SCH ×2 (08:49→21:00)
[2019-05-11] MEDS: VITAMINS A AND D 56.7 GM TUBE TP SCH ×2 (08:49→21:00)
[2019-05-11] MEDS: BIOTIN 5000 MCG GT SCH (08:49)
[2019-05-11] MEDS: POTASSIUM CHLORIDE GT SCH (08:49)
[2019-05-11] MEDS: VITS A AND D/WHITE PET/LANOLIN 5 GM PACKET TP SCH ×4 (08:49→21:00)
[2019-05-11] MEDS: [UNRECOGNIZED DRUG - OTHER] TP SCH ×2 (12:28→21:00)
[2019-05-11] MEDS: GLYCOPYRROLATE 1 MG TABLET GT PRN (17:49)
[2019-05-11 20:02] VITALS: BP 133/74
[2019-05-11] MEDS: HYDROCODONE/APAP 7.5/325MG 1 EACH TABLET GT PRN (21:00)
[2019-05-11] MEDS: PRAVASTATIN SODIUM 20 MG TABLET GT SCH (22:11)
[2019-05-11] MEDS: LORATADINE 10 MG TABLET GT SCH (22:11)
[2019-05-11] MEDS: LATANOPROST EYE DROP 0.005% 2.5 ML BOTTLE EACHEYE SCH (22:11)
[2019-05-11] MEDS: BENAZEPRIL HCL 5 MG TABLET GT SCH (22:11)
[2019-05-12] MEDS: IPRATROPIUM NEB FS 0.5 MG/2.5 ML AMPUL.NEB NEB SCH ×4 (01:32→19:51)
[2019-05-12] MEDS: JEVITY 1.2 CAL 1,000 ML BOTTLE GT PRN (02:55)
[2019-05-12] MEDS: CHLORHEXIDINE GLUCONATE 15 ML UDC MM SCH ×2 (06:21→17:08)
[2019-05-12 07:27] VITALS: BP 122/90
[2019-05-12] MEDS: DICLOFENAC TOPICAL 100 GM GEL..GM. TP SCH ×2 (08:45→17:08)
[2019-05-12] MEDS: BIOTIN 5000 MCG GT SCH (08:45)
[2019-05-12] MEDS: POTASSIUM CHLORIDE GT SCH (08:45)
[2019-05-12] MEDS: RIFAXIMIN 550 MG TABLET GT SCH ×2 (08:45→17:08)
[2019-05-12] MEDS: FINASTERIDE (5 MG) 5 MG TABLET GT SCH (08:45)
[2019-05-12] MEDS: VITS A AND D/WHITE PET/LANOLIN 5 GM PACKET TP SCH ×4 (08:45→21:19)
[2019-05-12] MEDS: LACTOBACILLUS RHAMNOSUS GG 1 EACH CAP.SPRINK GT SCH ×2 (08:45→17:08)
[2019-05-12] MEDS: VITAMINS A AND D 56.7 GM TUBE TP SCH ×2 (08:45→21:19)
[2019-05-12] MEDS: CHOLECALCIFEROL (VITAMIN D 3) 400 UNIT TABLET GT SCH ×2 (08:45→21:18)
[2019-05-12] MEDS: HYDROGEN PEROXIDE 480 ML BOTTLE TP SCH ×2 (09:20→21:33)
[2019-05-12] MEDS: [UNRECOGNIZED DRUG - OTHER] TP SCH ×2 (12:58→21:19)
--- NOTE | 2019-05-12 15:55 | NUR ---
SW met with the pt.'s , Asha at patient's bedside to discuss the incident that occurred 05/10/19 in Sinhala (see previous note). SW educate family about patient safety, stepping outside while nursing staff service the patient, and not interfering with resident care. Per Asha, she did unlock the patients wheelchair and the patient allegedly pushed the chair with his legs as he got up and proceeded to fall. Per Asha, she held his back so that he may slide down slowly. SW stressed the importance of waiting for nurses to assist the pt. with transfers and asked family that they step outside while the patient is being serviced to prevent incidents like this from re-occurring. Asha expressed understanding and stated, I will ask nurses to assist with transfers in the future, and do my best to stay out of their way outside the room.
--- NOTE | 2019-05-12 18:06 | NUR ---
RT PATIENT WAS RECEIVED ON 28% COOL AEROSOL . HHN TREATMENT WAS GIVEN, NO ADVERSE REACTION NOTED.AIRWAY PATENT AND SECURED. PATIENT STABLE THROUGHOUT THE SHIFT. WILL CONTINUE TO MONITOR. Addendum: 05/12/19 at 1807 by LUANN LAFLEUR RT Amended: Links added.
[2019-05-12] MEDS: MAGNESIUM HYDROXIDE 30 ML UDC GT PRN (18:12)
[2019-05-12 20:25] VITALS: BP 138/80
[2019-05-12] MEDS: LORATADINE 10 MG TABLET GT SCH (21:19)
[2019-05-12] MEDS: PRAVASTATIN SODIUM 20 MG TABLET GT SCH (21:19)
[2019-05-12] MEDS: BENAZEPRIL HCL 5 MG TABLET GT SCH (21:19)
[2019-05-12] MEDS: LATANOPROST EYE DROP 0.005% 2.5 ML BOTTLE EACHEYE SCH (21:19)
[2019-05-13] MEDS: IPRATROPIUM NEB FS 0.5 MG/2.5 ML AMPUL.NEB NEB SCH ×4 (00:29→20:12)
[2019-05-13] MEDS: CHLORHEXIDINE GLUCONATE 15 ML UDC MM SCH ×2 (05:47→17:00)
[2019-05-13] MEDS: BIOTIN 5000 MCG GT SCH (08:15)
[2019-05-13] MEDS: FINASTERIDE (5 MG) 5 MG TABLET GT SCH (08:15)
[2019-05-13] MEDS: LACTOBACILLUS RHAMNOSUS GG 1 EACH CAP.SPRINK GT SCH ×2 (08:15→17:00)
[2019-05-13] MEDS: POTASSIUM CHLORIDE GT SCH (08:15)
[2019-05-13] MEDS: DICLOFENAC TOPICAL 100 GM GEL..GM. TP SCH ×2 (08:29→17:00)
[2019-05-13] MEDS: RIFAXIMIN 550 MG TABLET GT SCH ×2 (08:29→17:00)
[2019-05-13] MEDS: VITS A AND D/WHITE PET/LANOLIN 5 GM PACKET TP SCH ×4 (08:29→21:00)
[2019-05-13] MEDS: VITAMINS A AND D 56.7 GM TUBE TP SCH ×2 (08:29→21:00)
[2019-05-13] MEDS: CHOLECALCIFEROL (VITAMIN D 3) 400 UNIT TABLET GT SCH ×2 (08:29→21:00)
[2019-05-13 08:38] VITALS: BP 122/73
[2019-05-13] MEDS: HYDROGEN PEROXIDE 480 ML BOTTLE TP SCH ×2 (09:37→21:00)
[2019-05-13] MEDS: [UNRECOGNIZED DRUG - OTHER] TP SCH ×2 (13:39→21:00)
--- NOTE | 2019-05-13 14:48 | NUR ---
Seen and examined by Dr. Edwards, patient's at bedside. NNO given.
[2019-05-13] MEDS: MAGNESIUM HYDROXIDE 30 ML UDC GT PRN (17:00)
[2019-05-13 20:32] VITALS: BP 105/67
[2019-05-13] MEDS: JEVITY 1.2 CAL 1,000 ML BOTTLE GT PRN (21:00)
[2019-05-13] MEDS: BENAZEPRIL HCL 5 MG TABLET GT SCH (22:43)
[2019-05-13] MEDS: PRAVASTATIN SODIUM 20 MG TABLET GT SCH (22:43)
[2019-05-13] MEDS: LATANOPROST EYE DROP 0.005% 2.5 ML BOTTLE EACHEYE SCH (22:43)
[2019-05-13] MEDS: LORATADINE 10 MG TABLET GT SCH (22:43)
[2019-05-14] MEDS: HYDROCODONE/APAP 7.5/325MG 1 EACH TABLET GT PRN ×2 (01:00→11:29)
[2019-05-14] MEDS: IPRATROPIUM NEB FS 0.5 MG/2.5 ML AMPUL.NEB NEB SCH ×4 (01:51→19:31)
[2019-05-14] MEDS: CHLORHEXIDINE GLUCONATE 15 ML UDC MM SCH ×2 (05:29→17:34)
[2019-05-14] MEDS: BISACODYL SUPP (10 MG) 10 MG/SUPP.RECT SUPP.RECT RC PRN (06:54)
[2019-05-14 08:01] VITALS: BP 138/76
[2019-05-14] MEDS: HYDROGEN PEROXIDE 480 ML BOTTLE TP SCH ×2 (08:20→21:12)
[2019-05-14] MEDS: FINASTERIDE (5 MG) 5 MG TABLET GT SCH (09:00)
[2019-05-14] MEDS: DICLOFENAC TOPICAL 100 GM GEL..GM. TP SCH ×2 (09:00→17:34)
[2019-05-14] MEDS: POTASSIUM CHLORIDE GT SCH (09:00)
[2019-05-14] MEDS: CHOLECALCIFEROL (VITAMIN D 3) 400 UNIT TABLET GT SCH ×2 (09:00→21:21)
[2019-05-14] MEDS: VITAMINS A AND D 56.7 GM TUBE TP SCH ×2 (09:00→21:21)
[2019-05-14] MEDS: RIFAXIMIN 550 MG TABLET GT SCH ×2 (09:00→17:34)
[2019-05-14] MEDS: VITS A AND D/WHITE PET/LANOLIN 5 GM PACKET TP SCH ×4 (09:00→21:21)
[2019-05-14] MEDS: BIOTIN 5000 MCG GT SCH (09:00)
[2019-05-14] MEDS: LACTOBACILLUS RHAMNOSUS GG 1 EACH CAP.SPRINK GT SCH ×2 (09:00→17:34)
[2019-05-14] MEDS: [UNRECOGNIZED DRUG - OTHER] TP SCH ×2 (13:07→21:21)
[2019-05-14] MEDS: JEVITY 1.2 CAL 1,000 ML BOTTLE GT PRN (17:34)
[2019-05-14 19:40] VITALS: BP 141/75
[2019-05-14] MEDS: BENAZEPRIL HCL 5 MG TABLET GT SCH (21:21)
[2019-05-14] MEDS: LATANOPROST EYE DROP 0.005% 2.5 ML BOTTLE EACHEYE SCH (21:21)
[2019-05-14] MEDS: PRAVASTATIN SODIUM 20 MG TABLET GT SCH (21:21)
[2019-05-14] MEDS: LORATADINE 10 MG TABLET GT SCH (21:21)
[2019-05-15] MEDS: IPRATROPIUM NEB FS 0.5 MG/2.5 ML AMPUL.NEB NEB SCH ×4 (01:40→19:46)
--- NOTE | 2019-05-15 05:26 | NUR ---
RT PATIENT WAS RECEIVED ON 28% COOL AEROSOL . AIRWAY PATENT AND SECURED. PATIENT STABLE THROUGHOUT THE SHIFT. WILL CONTINUE TO MONITOR. Addendum: 05/15/19 at 0526 by LUANN LAFLEUR RT Amended: Links added.
[2019-05-15] MEDS: CHLORHEXIDINE GLUCONATE 15 ML UDC MM SCH ×2 (05:28→17:34)
[2019-05-15] MEDS: HYDROGEN PEROXIDE 480 ML BOTTLE TP SCH ×2 (08:33→19:47)
[2019-05-15] MEDS: LACTOBACILLUS RHAMNOSUS GG 1 EACH CAP.SPRINK GT SCH ×2 (09:00→16:56)
[2019-05-15] MEDS: CHOLECALCIFEROL (VITAMIN D 3) 400 UNIT TABLET GT SCH ×2 (09:27→20:38)
[2019-05-15] MEDS: BIOTIN 5000 MCG GT SCH (09:27)
[2019-05-15] MEDS: POTASSIUM CHLORIDE GT SCH (09:27)
[2019-05-15] MEDS: RIFAXIMIN 550 MG TABLET GT SCH ×2 (09:27→16:56)
[2019-05-15] MEDS: FINASTERIDE (5 MG) 5 MG TABLET GT SCH (09:27)
[2019-05-15] MEDS: VITAMINS A AND D 56.7 GM TUBE TP SCH ×2 (09:28→20:38)
[2019-05-15] MEDS: DICLOFENAC TOPICAL 100 GM GEL..GM. TP SCH ×2 (09:28→16:56)
[2019-05-15] MEDS: VITS A AND D/WHITE PET/LANOLIN 5 GM PACKET TP SCH ×4 (09:28→20:38)
[2019-05-15] MEDS: HYDROCODONE/APAP 7.5/325MG 1 EACH TABLET GT PRN (10:09)
[2019-05-15 10:37] VITALS: BP 149/82
[2019-05-15] MEDS: [UNRECOGNIZED DRUG - OTHER] TP SCH ×2 (12:48→20:38)
[2019-05-15] MEDS: JEVITY 1.2 CAL 1,000 ML BOTTLE GT PRN (15:00)
[2019-05-15] MEDS: GLYCOPYRROLATE 1 MG TABLET GT PRN (20:39)
[2019-05-15 20:46] VITALS: BP 134/85
[2019-05-15] MEDS: PRAVASTATIN SODIUM 20 MG TABLET GT SCH (21:27)
[2019-05-15] MEDS: LORATADINE 10 MG TABLET GT SCH (21:27)
[2019-05-15] MEDS: LATANOPROST EYE DROP 0.005% 2.5 ML BOTTLE EACHEYE SCH (21:27)
[2019-05-15] MEDS: BENAZEPRIL HCL 5 MG TABLET GT SCH (21:27)
[2019-05-16] MEDS: IPRATROPIUM NEB FS 0.5 MG/2.5 ML AMPUL.NEB NEB SCH ×4 (01:32→20:08)
--- NOTE | 2019-05-16 04:25 | NUR ---
PATIENT RECEIVED ON RA THEN PLACED BACK ON 28% AEROSOL T-COLLAR, TOLERATING WITH NO DISTRESS/SOB NOTED. SUCTIONED WITH LAVAGE FOR MINIMAL, THICK, YELLOW SECRETIONS. GIVEN IN-LINE TREATMENTS WITH NO ADVERSE REACTIONS. AMBU BAG AT BEDSIDE. Addendum: 05/16/19 at 0427 by MINOO CORRIGAN RT Amended: Links added.
[2019-05-16] MEDS: CHLORHEXIDINE GLUCONATE 15 ML UDC MM SCH ×2 (05:38→17:03)
[2019-05-16] MEDS: JEVITY 1.2 CAL 1,000 ML BOTTLE GT PRN (05:39)
[2019-05-16 07:56] VITALS: BP 109/61
[2019-05-16] MEDS: HYDROGEN PEROXIDE 480 ML BOTTLE TP SCH ×2 (08:13→20:08)
[2019-05-16] MEDS: POTASSIUM CHLORIDE GT SCH (08:47)
[2019-05-16] MEDS: CHOLECALCIFEROL (VITAMIN D 3) 400 UNIT TABLET GT SCH ×2 (08:47→21:02)
[2019-05-16] MEDS: BIOTIN 5000 MCG GT SCH (08:47)
[2019-05-16] MEDS: RIFAXIMIN 550 MG TABLET GT SCH ×2 (08:47→17:00)
[2019-05-16] MEDS: LACTOBACILLUS RHAMNOSUS GG 1 EACH CAP.SPRINK GT SCH ×2 (08:47→17:00)
[2019-05-16] MEDS: VITS A AND D/WHITE PET/LANOLIN 5 GM PACKET TP SCH ×4 (08:47→21:02)
[2019-05-16] MEDS: FINASTERIDE (5 MG) 5 MG TABLET GT SCH (08:47)
[2019-05-16] MEDS: VITAMINS A AND D 56.7 GM TUBE TP SCH ×2 (08:48→21:02)
[2019-05-16] MEDS: DICLOFENAC TOPICAL 100 GM GEL..GM. TP SCH ×2 (08:48→17:03)
[2019-05-16] MEDS: [UNRECOGNIZED DRUG - OTHER] TP SCH ×2 (12:23→21:02)
[2019-05-16] MEDS: MAGNESIUM HYDROXIDE 30 ML UDC GT PRN (17:16)
--- NOTE | 2019-05-16 20:19 | NUR ---
RT NOTE: RECEIVED PT ON ROOM AIR. PLACED TRACH PT ON COOL AEROSOL AT THIS TIME. AMBU BAG @ BEDSIDE. Q6 BREATHING TX GIVEN PER MD ORDERS WITH NO ADVERSE REACTION NOTED. SX DONE PRN. TRACH PATENT AND SECURED. TRACH CARE DONE. NO RESP DISTRESS NOTED AT THIS TIME. WILL CONTINUE TO MONITOR PT Addendum: 05/17/19 at 0253 by LINNEA TOVAR RT Amended: Links added.
[2019-05-16 20:28] VITALS: BP 131/75
[2019-05-16] MEDS: LATANOPROST EYE DROP 0.005% 2.5 ML BOTTLE EACHEYE SCH (21:02)
[2019-05-16] MEDS: PRAVASTATIN SODIUM 20 MG TABLET GT SCH (21:03)
[2019-05-16] MEDS: BENAZEPRIL HCL 5 MG TABLET GT SCH (21:03)
[2019-05-17] MEDS: IPRATROPIUM NEB FS 0.5 MG/2.5 ML AMPUL.NEB NEB SCH ×4 (01:52→19:29)
[2019-05-17] MEDS: CHLORHEXIDINE GLUCONATE 15 ML UDC MM SCH ×2 (05:44→17:50)
[2019-05-17] MEDS: JEVITY 1.2 CAL 1,000 ML BOTTLE GT PRN (05:44)
[2019-05-17] MEDS: MAGNESIUM HYDROXIDE 30 ML UDC GT PRN (07:00)
[2019-05-17 07:58] VITALS: BP 109/76
[2019-05-17] MEDS: HYDROGEN PEROXIDE 480 ML BOTTLE TP SCH ×2 (08:12→21:00)
[2019-05-17] MEDS: POTASSIUM CHLORIDE GT SCH (08:17)
[2019-05-17] MEDS: LACTOBACILLUS RHAMNOSUS GG 1 EACH CAP.SPRINK GT SCH ×2 (08:17→17:50)
[2019-05-17] MEDS: BIOTIN 5000 MCG GT SCH (08:17)
[2019-05-17] MEDS: FINASTERIDE (5 MG) 5 MG TABLET GT SCH (08:18)
[2019-05-17] MEDS: DICLOFENAC TOPICAL 100 GM GEL..GM. TP SCH ×2 (08:19→17:50)
[2019-05-17] MEDS: RIFAXIMIN 550 MG TABLET GT SCH ×2 (08:19→17:50)
[2019-05-17] MEDS: VITS A AND D/WHITE PET/LANOLIN 5 GM PACKET TP SCH ×4 (08:19→21:14)
[2019-05-17] MEDS: CHOLECALCIFEROL (VITAMIN D 3) 400 UNIT TABLET GT SCH ×2 (08:19→21:14)
[2019-05-17] MEDS: VITAMINS A AND D 56.7 GM TUBE TP SCH ×2 (08:19→21:14)
[2019-05-17] MEDS: [UNRECOGNIZED DRUG - OTHER] TP SCH ×2 (13:00→21:14)
[2019-05-17 20:12] VITALS: BP 119/74
[2019-05-17] MEDS: BENAZEPRIL HCL 5 MG TABLET GT SCH (21:14)
[2019-05-17] MEDS: LATANOPROST EYE DROP 0.005% 2.5 ML BOTTLE EACHEYE SCH (21:14)
[2019-05-17] MEDS: PRAVASTATIN SODIUM 20 MG TABLET GT SCH (21:14)
[2019-05-18] MEDS: IPRATROPIUM NEB FS 0.5 MG/2.5 ML AMPUL.NEB NEB SCH ×4 (01:01→20:02)
[2019-05-18] MEDS: CHLORHEXIDINE GLUCONATE 15 ML UDC MM SCH ×2 (05:31→17:15)
[2019-05-18] MEDS: HYDROGEN PEROXIDE 480 ML BOTTLE TP SCH ×2 (07:52→20:23)
[2019-05-18 08:00] VITALS: BP 124/73
[2019-05-18] MEDS: LACTOBACILLUS RHAMNOSUS GG 1 EACH CAP.SPRINK GT SCH ×2 (08:51→16:35)
[2019-05-18] MEDS: CHOLECALCIFEROL (VITAMIN D 3) 400 UNIT TABLET GT SCH ×2 (08:51→21:32)
[2019-05-18] MEDS: RIFAXIMIN 550 MG TABLET GT SCH ×2 (08:51→16:35)
[2019-05-18] MEDS: BIOTIN 5000 MCG GT SCH (08:51)
[2019-05-18] MEDS: FINASTERIDE (5 MG) 5 MG TABLET GT SCH (08:51)
[2019-05-18] MEDS: POTASSIUM CHLORIDE GT SCH (08:51)
[2019-05-18] MEDS: VITS A AND D/WHITE PET/LANOLIN 5 GM PACKET TP SCH ×4 (08:52→21:33)
[2019-05-18] MEDS: VITAMINS A AND D 56.7 GM TUBE TP SCH ×2 (08:52→21:33)
[2019-05-18] MEDS: DICLOFENAC TOPICAL 100 GM GEL..GM. TP SCH ×2 (08:52→16:35)
[2019-05-18] MEDS: [UNRECOGNIZED DRUG - OTHER] TP SCH ×2 (13:03→21:32)
--- NOTE | 2019-05-18 14:38 | NUR ---
SKIP contacted customer services coordinator office to schedule apt. with Dr. Holliday [phone] and spoke to Rasheeda. Per [facility], Dr. Holliday is available to service the pt. tomorrow 05/19/19 after 10 am. SKIP informed charge nurse and patients , Asha [phone] who was agreeable to plan. SKIP faxed residents face sheet to FAX: [phone] and received completed fax receipt.
--- NOTE | 2019-05-18 20:21 | NUR ---
Seen and examined by ISABELA Picahrdo no new order.
[2019-05-18 20:45] VITALS: BP 140/73
[2019-05-18] MEDS: GLYCOPYRROLATE 1 MG TABLET GT PRN (21:31)
[2019-05-18] MEDS: LATANOPROST EYE DROP 0.005% 2.5 ML BOTTLE EACHEYE SCH (21:33)
[2019-05-18] MEDS: BENAZEPRIL HCL 5 MG TABLET GT SCH (21:34)
[2019-05-18] MEDS: PRAVASTATIN SODIUM 20 MG TABLET GT SCH (21:34)
[2019-05-19] MEDS: IPRATROPIUM NEB FS 0.5 MG/2.5 ML AMPUL.NEB NEB SCH ×4 (00:54→19:38)
--- NOTE | 2019-05-19 01:48 | NUR ---
PT RCVD TRACH'D ON COOL AEROSOL WITH CHARTED SETTINGS. SX DONE. PT FRANCIE TX WELL. AMBU BAG AT BEDSIDE. Addendum: 05/19/19 at 0148 by LISETH MOCK RT Amended: Links added.
[2019-05-19] MEDS: CHLORHEXIDINE GLUCONATE 15 ML UDC MM SCH ×2 (05:48→17:20)
[2019-05-19] MEDS: JEVITY 1.2 CAL 1,000 ML BOTTLE GT PRN (06:05)
[2019-05-19 07:32] VITALS: BP 114/71
[2019-05-19] MEDS: FINASTERIDE (5 MG) 5 MG TABLET GT SCH (09:39)
[2019-05-19] MEDS: LACTOBACILLUS RHAMNOSUS GG 1 EACH CAP.SPRINK GT SCH ×2 (09:39→17:19)
[2019-05-19] MEDS: POTASSIUM CHLORIDE GT SCH (09:39)
[2019-05-19] MEDS: VITS A AND D/WHITE PET/LANOLIN 5 GM PACKET TP SCH ×4 (09:39→21:03)
[2019-05-19] MEDS: BIOTIN 5000 MCG GT SCH (09:39)
[2019-05-19] MEDS: RIFAXIMIN 550 MG TABLET GT SCH ×2 (09:39→17:19)
[2019-05-19] MEDS: CHOLECALCIFEROL (VITAMIN D 3) 400 UNIT TABLET GT SCH ×2 (09:39→21:03)
[2019-05-19] MEDS: VITAMINS A AND D 56.7 GM TUBE TP SCH ×2 (09:40→21:04)
[2019-05-19] MEDS: DICLOFENAC TOPICAL 100 GM GEL..GM. TP SCH ×2 (09:40→17:20)
[2019-05-19] MEDS: HYDROGEN PEROXIDE 480 ML BOTTLE TP SCH ×2 (09:50→20:18)
[2019-05-19] MEDS: [UNRECOGNIZED DRUG - OTHER] TP SCH ×2 (13:21→21:03)
--- NOTE | 2019-05-19 14:40 | NUR ---
Seen and examined by Dr. Chi Edwards. Reported patient with high gastric residual of 400 ml. during restaurant shift supervisor with order to give PRN Reglan for gastric residual greater than 300ml. Dr. Edwards said that he discontinue patient's Claritin that was ordered when he was in acute hospital because Mrs. Lopez brought to his attention that patient has been very sleepy.
[2019-05-19] MEDS ORDERED: METOCLOPRAMIDE HCL 10 MG/10 ML UDC GT PRN (15:00)
--- NOTE | 2019-05-19 15:12 | NUR ---
The patient had their optometry exam today conducted by Dr. Holliday [phone] at patient's bedside. NNO. The patients , Asha [phone] was informed and expressed being grateful for update. Per Asha, she would like to know what can be done about the pt.'s Cataract. SKIP informed Asha, that SW will call Dr. Holliday and have him explain. Asha was agreeable to plan. The optometry note was filed in patients chart.
--- NOTE | 2019-05-19 16:44 | NUR ---
RT Patient was received on 28% cool aerosol .Breathing treatment was given. Airway patent and secured. Patient stable throughout the shift.Will continue to monitor Addendum: 05/19/19 at 1644 by LUANN LAFLEUR RT Amended: Links added.
[2019-05-19 19:29] VITALS: BP 135/73
--- NOTE | 2019-05-19 19:40 | NUR ---
RT NOTE RECEIVED TRACH PT ON C/A ON NOTED SETTINGS. PT FRANCIE. HHN TX WELL. NO RESP. DISTRESS NOTED. WILL CONTINUE TO MONITOR. Addendum: 05/20/19 at 0515 by OZZY BORGES RT Amended: Links added.
[2019-05-19] MEDS: BENAZEPRIL HCL 5 MG TABLET GT SCH (21:04)
[2019-05-19] MEDS: LATANOPROST EYE DROP 0.005% 2.5 ML BOTTLE EACHEYE SCH (21:04)
[2019-05-19] MEDS: PRAVASTATIN SODIUM 20 MG TABLET GT SCH (21:04)
[2019-05-20] MEDS: IPRATROPIUM NEB FS 0.5 MG/2.5 ML AMPUL.NEB NEB SCH ×4 (01:32→19:35)
[2019-05-20] MEDS: CHLORHEXIDINE GLUCONATE 15 ML UDC MM SCH ×2 (05:38→17:13)
[2019-05-20] MEDS: JEVITY 1.2 CAL 1,000 ML BOTTLE GT PRN (06:00)
[2019-05-20] MEDS: LACTOBACILLUS RHAMNOSUS GG 1 EACH CAP.SPRINK GT SCH ×2 (08:15→16:23)
[2019-05-20] MEDS: RIFAXIMIN 550 MG TABLET GT SCH ×2 (08:15→16:23)
[2019-05-20] MEDS: CHOLECALCIFEROL (VITAMIN D 3) 400 UNIT TABLET GT SCH ×2 (08:15→21:10)
[2019-05-20] MEDS: BIOTIN 5000 MCG GT SCH (08:15)
[2019-05-20] MEDS: FINASTERIDE (5 MG) 5 MG TABLET GT SCH (08:15)
[2019-05-20] MEDS: POTASSIUM CHLORIDE GT SCH (08:15)
[2019-05-20] MEDS: VITS A AND D/WHITE PET/LANOLIN 5 GM PACKET TP SCH ×4 (09:00→21:10)
[2019-05-20] MEDS: DICLOFENAC TOPICAL 100 GM GEL..GM. TP SCH ×2 (09:00→16:23)
[2019-05-20] MEDS: VITAMINS A AND D 56.7 GM TUBE TP SCH ×2 (09:00→21:10)
[2019-05-20] MEDS: HYDROGEN PEROXIDE 480 ML BOTTLE TP SCH ×2 (09:36→21:11)
--- NOTE | 2019-05-20 10:01 | NUR ---
RT NOTE PT RECEIVED TRACHED ON COOL AEROSOL @ 28%. AMBU BAG/BACK UP TRACH @ BEDSIDE. TX GIVEN, NO ADVERSE REACTIONS NOTED. SX DONE, TRACH SECURED AND PATENT. WATER LEVEL GOOD. NO SOB NOTED. Addendum: 05/20/19 at 1002 by CHRISTIANO MCCALL RT Amended: Links added.
[2019-05-20 11:03] VITALS: BP 138/97
[2019-05-20] MEDS: [UNRECOGNIZED DRUG - OTHER] TP SCH ×2 (12:45→21:10)
[2019-05-20 19:53] VITALS: BP 131/83
[2019-05-20] MEDS: BENAZEPRIL HCL 5 MG TABLET GT SCH (21:11)
[2019-05-20] MEDS: LATANOPROST EYE DROP 0.005% 2.5 ML BOTTLE EACHEYE SCH (21:11)
[2019-05-20] MEDS: PRAVASTATIN SODIUM 20 MG TABLET GT SCH (21:11)
[2019-05-21] MEDS: IPRATROPIUM NEB FS 0.5 MG/2.5 ML AMPUL.NEB NEB SCH ×4 (01:40→19:41)
[2019-05-21] MEDS: JEVITY 1.2 CAL 1,000 ML BOTTLE GT PRN (02:17)
--- NOTE | 2019-05-21 03:42 | NUR ---
RT Patient was received on 28% cool aerosol .Breathing treatment was given. Airway patent and secured. Patient stable throughout the shift.Will continue to monitor Addendum: 05/21/19 at 0342 by LUANN LAFLEUR RT Amended: Links added.
[2019-05-21] MEDS: CHLORHEXIDINE GLUCONATE 15 ML UDC MM SCH ×2 (05:30→17:21)
[2019-05-21] MEDS: MAGNESIUM HYDROXIDE 30 ML UDC GT PRN (06:47)
[2019-05-21 07:48] VITALS: BP 117/76
[2019-05-21] MEDS: FINASTERIDE (5 MG) 5 MG TABLET GT SCH (09:05)
[2019-05-21] MEDS: DICLOFENAC TOPICAL 100 GM GEL..GM. TP SCH ×2 (09:05→17:21)
[2019-05-21] MEDS: VITAMINS A AND D 56.7 GM TUBE TP SCH ×2 (09:05→21:11)
[2019-05-21] MEDS: RIFAXIMIN 550 MG TABLET GT SCH ×2 (09:05→17:21)
[2019-05-21] MEDS: BIOTIN 5000 MCG GT SCH (09:05)
[2019-05-21] MEDS: POTASSIUM CHLORIDE GT SCH (09:05)
[2019-05-21] MEDS: VITS A AND D/WHITE PET/LANOLIN 5 GM PACKET TP SCH ×4 (09:05→21:11)
[2019-05-21] MEDS: LACTOBACILLUS RHAMNOSUS GG 1 EACH CAP.SPRINK GT SCH ×2 (09:05→17:21)
[2019-05-21] MEDS: CHOLECALCIFEROL (VITAMIN D 3) 400 UNIT TABLET GT SCH ×2 (09:05→21:11)
[2019-05-21] MEDS: HYDROGEN PEROXIDE 480 ML BOTTLE TP SCH ×2 (09:40→19:41)
[2019-05-21] MEDS: SUMATRIPTAN SUCCINATE 25 MG TABLET GT PRN (10:29)
[2019-05-21] MEDS: [UNRECOGNIZED DRUG - OTHER] TP SCH ×2 (12:18→21:11)
[2019-05-21 19:35] VITALS: BP 142/82
--- NOTE | 2019-05-21 19:40 | NUR ---
RT NOTE RECEIVED PT ON 28% C/A WITH THE NOTED CONDITION IN [id number]. PT FRANCIE. TX WELL. NO RESP. DISTRESS NOTED. WILL CONTINUE WITH THE CURRENT PLAN OF CARE. Addendum: 05/22/19 at 0223 by OZZY BORGES RT Amended: Links added.
[2019-05-21] MEDS: BENAZEPRIL HCL 5 MG TABLET GT SCH (21:11)
[2019-05-21] MEDS: PRAVASTATIN SODIUM 20 MG TABLET GT SCH (21:11)
[2019-05-21] MEDS: LATANOPROST EYE DROP 0.005% 2.5 ML BOTTLE EACHEYE SCH (21:11)
[2019-05-22] MEDS: IPRATROPIUM NEB FS 0.5 MG/2.5 ML AMPUL.NEB NEB SCH ×4 (01:12→19:32)
[2019-05-22] MEDS: CHLORHEXIDINE GLUCONATE 15 ML UDC MM SCH ×2 (05:30→17:53)
[2019-05-22 07:41] VITALS: BP 141/93
[2019-05-22] MEDS: POTASSIUM CHLORIDE GT SCH (09:00)
[2019-05-22] MEDS: VITS A AND D/WHITE PET/LANOLIN 5 GM PACKET TP SCH ×4 (09:00→21:38)
[2019-05-22] MEDS: HYDROGEN PEROXIDE 480 ML BOTTLE TP SCH ×2 (09:00→21:38)
[2019-05-22] MEDS: BIOTIN 5000 MCG GT SCH (09:00)
[2019-05-22] MEDS: FINASTERIDE (5 MG) 5 MG TABLET GT SCH (09:00)
[2019-05-22] MEDS: RIFAXIMIN 550 MG TABLET GT SCH ×2 (09:00→16:43)
[2019-05-22] MEDS: CHOLECALCIFEROL (VITAMIN D 3) 400 UNIT TABLET GT SCH ×2 (09:00→21:40)
[2019-05-22] MEDS: LACTOBACILLUS RHAMNOSUS GG 1 EACH CAP.SPRINK GT SCH ×2 (09:00→16:43)
[2019-05-22] MEDS: DICLOFENAC TOPICAL 100 GM GEL..GM. TP SCH ×2 (09:01→16:43)
[2019-05-22] MEDS: VITAMINS A AND D 56.7 GM TUBE TP SCH ×2 (09:01→21:38)
[2019-05-22] MEDS: [UNRECOGNIZED DRUG - OTHER] TP SCH ×2 (13:00→21:38)
--- NOTE | 2019-05-22 16:25 | NUR ---
SKIP left voicemail to patient's , Asha to inform [phone] family that the Interdisciplinary Plan of Care Conference will be taking place this 05/26/19 and that they may attend or participate via phone conference.
[2019-05-22 20:46] VITALS: BP 130/89
[2019-05-22] MEDS: PRAVASTATIN SODIUM 20 MG TABLET GT SCH (21:36)
[2019-05-22] MEDS: BENAZEPRIL HCL 5 MG TABLET GT SCH (21:37)
[2019-05-22] MEDS: LATANOPROST EYE DROP 0.005% 2.5 ML BOTTLE EACHEYE SCH (21:37)
[2019-05-23] MEDS: IPRATROPIUM NEB FS 0.5 MG/2.5 ML AMPUL.NEB NEB SCH ×4 (01:15→20:23)
[2019-05-23] MEDS: JEVITY 1.2 CAL 1,000 ML BOTTLE GT PRN (02:57)
[2019-05-23] MEDS: CHLORHEXIDINE GLUCONATE 15 ML UDC MM SCH ×2 (06:04→17:27)
[2019-05-23 07:35] VITALS: BP 129/89
[2019-05-23] MEDS: HYDROGEN PEROXIDE 480 ML BOTTLE TP SCH ×2 (08:18→21:00)
[2019-05-23] MEDS: DICLOFENAC TOPICAL 100 GM GEL..GM. TP SCH ×2 (09:38→17:27)
[2019-05-23] MEDS: BIOTIN 5000 MCG GT SCH (09:38)
[2019-05-23] MEDS: LACTOBACILLUS RHAMNOSUS GG 1 EACH CAP.SPRINK GT SCH ×2 (09:38→17:27)
[2019-05-23] MEDS: POTASSIUM CHLORIDE GT SCH (09:38)
[2019-05-23] MEDS: VITAMINS A AND D 56.7 GM TUBE TP SCH ×2 (09:38→21:12)
[2019-05-23] MEDS: FINASTERIDE (5 MG) 5 MG TABLET GT SCH (09:38)
[2019-05-23] MEDS: CHOLECALCIFEROL (VITAMIN D 3) 400 UNIT TABLET GT SCH ×2 (09:38→21:11)
[2019-05-23] MEDS: VITS A AND D/WHITE PET/LANOLIN 5 GM PACKET TP SCH ×4 (09:38→21:11)
[2019-05-23] MEDS: RIFAXIMIN 550 MG TABLET GT SCH ×2 (09:38→17:27)
[2019-05-23] MEDS ORDERED: ERYTHROMYCIN BASE (250 MG) 250 MG CAPSULE.DR PO PRN (13:00)
[2019-05-23] MEDS: [UNRECOGNIZED DRUG - OTHER] TP SCH ×2 (13:45→21:11)
[2019-05-23] MEDS: ACETAMINOPHEN 650 MG/20 ML UDC- SA PATIENTS-PAIN ONLY GT PRN (18:36)
[2019-05-23 20:43] VITALS: BP 121/80
--- NOTE | 2019-05-23 20:55 | NUR ---
RT NOTE Late Note Pt found with dislodge trach. Emergency bedside trach used to place trach back in place. Trach is patent and secured. Pt appears comfortable and shows no signs of respiratory distress. Sx'd for thick mod amt of clear secretions. Breath sounds clear. Will continue to monitor.
[2019-05-23] MEDS: PRAVASTATIN SODIUM 20 MG TABLET GT SCH (21:12)
[2019-05-23] MEDS: LATANOPROST EYE DROP 0.005% 2.5 ML BOTTLE EACHEYE SCH (21:12)
[2019-05-23] MEDS: BENAZEPRIL HCL 5 MG TABLET GT SCH (21:12)
[2019-05-23] MEDS: MAGNESIUM HYDROXIDE 30 ML UDC GT PRN (21:13)
[2019-05-24] MEDS: IPRATROPIUM NEB FS 0.5 MG/2.5 ML AMPUL.NEB NEB SCH ×4 (02:23→20:21)
[2019-05-24] MEDS: CHLORHEXIDINE GLUCONATE 15 ML UDC MM SCH ×2 (05:42→17:18)
[2019-05-24 07:53] VITALS: BP 119/75
[2019-05-24] MEDS: BIOTIN 5000 MCG GT SCH (08:07)
[2019-05-24] MEDS: POTASSIUM CHLORIDE GT SCH (08:07)
[2019-05-24] MEDS: LACTOBACILLUS RHAMNOSUS GG 1 EACH CAP.SPRINK GT SCH ×2 (08:07→16:11)
[2019-05-24] MEDS: FINASTERIDE (5 MG) 5 MG TABLET GT SCH (08:09)
[2019-05-24] MEDS: CHOLECALCIFEROL (VITAMIN D 3) 400 UNIT TABLET GT SCH ×2 (08:09→20:18)
[2019-05-24] MEDS: RIFAXIMIN 550 MG TABLET GT SCH ×2 (08:09→16:11)
[2019-05-24] MEDS: HYDROCODONE/APAP 7.5/325MG 1 EACH TABLET GT PRN (08:10)
[2019-05-24] MEDS: DICLOFENAC TOPICAL 100 GM GEL..GM. TP SCH ×2 (09:00→16:11)
[2019-05-24] MEDS: VITAMINS A AND D 56.7 GM TUBE TP SCH ×2 (09:00→20:19)
[2019-05-24] MEDS: VITS A AND D/WHITE PET/LANOLIN 5 GM PACKET TP SCH ×4 (09:00→20:19)
--- NOTE | 2019-05-24 09:02 | NUR ---
RT NOTE: REC'D TRACH PT ON COOL AEROSOL. GUILLEOneyda BAG @ BEDSIDE. SX DONE PRN. TRACH PATENT AND SECURED. TRACH CARE DONE. NO RESP DISTRESS NOTED AT THIS TIME. WILL CONTINUE TO MONITOR. Addendum: 05/24/19 at 0903 by KRYSTLE ELIZABETH RT Amended: Links added.
[2019-05-24] MEDS: HYDROGEN PEROXIDE 480 ML BOTTLE TP SCH ×2 (09:10→21:17)
[2019-05-24] MEDS: [UNRECOGNIZED DRUG - OTHER] TP SCH ×2 (12:05→20:19)
[2019-05-24 20:48] VITALS: BP 126/75
[2019-05-24] MEDS: LATANOPROST EYE DROP 0.005% 2.5 ML BOTTLE EACHEYE SCH (21:06)
[2019-05-24] MEDS: PRAVASTATIN SODIUM 20 MG TABLET GT SCH (21:07)
[2019-05-24] MEDS: BENAZEPRIL HCL 5 MG TABLET GT SCH (21:07)
--- NOTE | 2019-05-24 21:09 | NUR ---
RN NOTES BP 98/62mmHg. Held Benazepril as ordered.
[2019-05-25] MEDS: IPRATROPIUM NEB FS 0.5 MG/2.5 ML AMPUL.NEB NEB SCH ×4 (01:04→19:51)
[2019-05-25] MEDS: JEVITY 1.2 CAL 1,000 ML BOTTLE GT PRN (02:26)
[2019-05-25] MEDS: CHLORHEXIDINE GLUCONATE 15 ML UDC MM SCH ×2 (05:14→17:20)
[2019-05-25 07:50] VITALS: BP 135/85
[2019-05-25] MEDS: HYDROGEN PEROXIDE 480 ML BOTTLE TP SCH ×2 (09:00→20:20)
[2019-05-25] MEDS: VITAMINS A AND D 56.7 GM TUBE TP SCH ×2 (09:53→20:45)
[2019-05-25] MEDS: BIOTIN 5000 MCG GT SCH (09:53)
[2019-05-25] MEDS: VITS A AND D/WHITE PET/LANOLIN 5 GM PACKET TP SCH ×4 (09:53→20:45)
[2019-05-25] MEDS: RIFAXIMIN 550 MG TABLET GT SCH ×2 (09:53→17:20)
[2019-05-25] MEDS: FINASTERIDE (5 MG) 5 MG TABLET GT SCH (09:53)
[2019-05-25] MEDS: CHOLECALCIFEROL (VITAMIN D 3) 400 UNIT TABLET GT SCH ×2 (09:53→20:44)
[2019-05-25] MEDS: LACTOBACILLUS RHAMNOSUS GG 1 EACH CAP.SPRINK GT SCH ×2 (09:53→17:20)
[2019-05-25] MEDS: POTASSIUM CHLORIDE GT SCH (09:53)
[2019-05-25] MEDS: DICLOFENAC TOPICAL 100 GM GEL..GM. TP SCH ×2 (09:54→17:20)
--- NOTE | 2019-05-25 11:36 | NUR ---
RT NOTE: REC'D TRACH PT ON COOL AEROSOL THEN PLACED ON ROOM AIR PER MD ORDER. YENNY BAG @ BEDSIDE. SX DONE PRN. TRACH PATENT AND SECURED. TRACH CARE DONE. NO RESP DISTRESS NOTED AT THIS TIME. WILL CONTINUE TO MONITOR. Addendum: 05/25/19 at 1137 by KRYSTLE ELIZABETH RT Amended: Links added.
[2019-05-25] MEDS: [UNRECOGNIZED DRUG - OTHER] TP SCH ×2 (12:02→20:45)
[2019-05-25] MEDS: MAGNESIUM HYDROXIDE 30 ML UDC GT PRN (14:18)
--- NOTE | 2019-05-25 20:31 | NUR ---
PT RCVD TRACH'D ON COOL AEROSOL WITH CHARTED SETTINGS. PT FRANCIE TX WELL. SX DONE. PT TRACH IS PATENT AND SECURE. AMBU BAG AT BEDSIDE. Addendum: 05/25/19 at 2030 by LISETH MOCK RT Amended: Links added.
[2019-05-25 21:01] VITALS: BP 121/71
[2019-05-25] MEDS: BENAZEPRIL HCL 5 MG TABLET GT SCH (21:04)
[2019-05-25] MEDS: LATANOPROST EYE DROP 0.005% 2.5 ML BOTTLE EACHEYE SCH (21:04)
[2019-05-25] MEDS: PRAVASTATIN SODIUM 20 MG TABLET GT SCH (21:04)
[2019-05-25] MEDS: HYDROCODONE/APAP 7.5/325MG 1 EACH TABLET GT PRN (21:48)
[2019-05-25] MEDS: SIMETHICONE SUSP 40 MG/0.6 ML BOTTLE GT PRN (23:49)
[2019-05-26] MEDS: IPRATROPIUM NEB FS 0.5 MG/2.5 ML AMPUL.NEB NEB SCH ×4 (00:43→19:57)
[2019-05-26] MEDS: CHLORHEXIDINE GLUCONATE 15 ML UDC MM SCH ×2 (05:36→17:06)
[2019-05-26] MEDS: JEVITY 1.2 CAL 1,000 ML BOTTLE GT PRN ×2 (06:25→18:25)
[2019-05-26] MEDS: BISACODYL SUPP (10 MG) 10 MG/SUPP.RECT SUPP.RECT RC PRN (06:25)
[2019-05-26 07:54] VITALS: BP 134/78
[2019-05-26] MEDS: FINASTERIDE (5 MG) 5 MG TABLET GT SCH (08:38)
[2019-05-26] MEDS: RIFAXIMIN 550 MG TABLET GT SCH ×2 (08:38→17:06)
[2019-05-26] MEDS: LACTOBACILLUS RHAMNOSUS GG 1 EACH CAP.SPRINK GT SCH ×2 (08:38→17:06)
[2019-05-26] MEDS: DICLOFENAC TOPICAL 100 GM GEL..GM. TP SCH ×2 (08:38→17:06)
[2019-05-26] MEDS: POTASSIUM CHLORIDE GT SCH (08:38)
[2019-05-26] MEDS: BIOTIN 5000 MCG GT SCH (08:38)
[2019-05-26] MEDS: CHOLECALCIFEROL (VITAMIN D 3) 400 UNIT TABLET GT SCH ×2 (08:38→21:05)
[2019-05-26] MEDS: GLYCOPYRROLATE 1 MG TABLET GT PRN (08:42)
[2019-05-26] MEDS: VITAMINS A AND D 56.7 GM TUBE TP SCH ×2 (09:00→21:05)
[2019-05-26] MEDS: VITS A AND D/WHITE PET/LANOLIN 5 GM PACKET TP SCH ×4 (09:00→21:05)
[2019-05-26] MEDS: HYDROGEN PEROXIDE 480 ML BOTTLE TP SCH ×2 (09:47→21:05)
[2019-05-26] MEDS: [UNRECOGNIZED DRUG - OTHER] TP SCH ×2 (13:00→21:05)
--- NOTE | 2019-05-26 15:00 | NUR ---
Seen and examined by Dr. Edwards, made aware that during IDT meeting, resident's is requesting to decrease GT feeding rate to 60 cc/hr as previously ordered because she wants his weight to stay at [address] Edwards also said to refer 's concern regarding patient's R great toe. Will inform skid road man.
--- NOTE | 2019-05-26 15:48 | NUR ---
INTERDISCIPLINARY PLAN OF CARE CONFERENCE took place today. The patients responsible democrat/ Asha Lopez [phone] was in attendance. The IDT answered all of familys questions. Charge nurse discussed order from of PRN Reglan for gastric residual greater than 300ml. Dr. Mejia and Interdisciplinary team discussed the plan of care in detail. Current orders as well as treatments and medications were reviewed. Please see other disciplines IDT notes for further details.
[2019-05-26 19:50] VITALS: BP 115/80
[2019-05-26] MEDS: LATANOPROST EYE DROP 0.005% 2.5 ML BOTTLE EACHEYE SCH (21:05)
[2019-05-26] MEDS: BENAZEPRIL HCL 5 MG TABLET GT SCH (21:06)
[2019-05-26] MEDS: PRAVASTATIN SODIUM 20 MG TABLET GT SCH (21:06)
[2019-05-27] MEDS: IPRATROPIUM NEB FS 0.5 MG/2.5 ML AMPUL.NEB NEB SCH ×4 (01:37→19:43)
[2019-05-27] MEDS: CHLORHEXIDINE GLUCONATE 15 ML UDC MM SCH ×2 (05:18→17:59)
[2019-05-27 07:34] VITALS: BP 128/61
[2019-05-27] MEDS: POTASSIUM CHLORIDE GT SCH (08:47)
[2019-05-27] MEDS: FINASTERIDE (5 MG) 5 MG TABLET GT SCH (08:48)
[2019-05-27] MEDS: RIFAXIMIN 550 MG TABLET GT SCH ×2 (08:48→16:38)
[2019-05-27] MEDS: BIOTIN 5000 MCG GT SCH (08:48)
[2019-05-27] MEDS: CHOLECALCIFEROL (VITAMIN D 3) 400 UNIT TABLET GT SCH ×2 (08:51→20:06)
[2019-05-27] MEDS: LACTOBACILLUS RHAMNOSUS GG 1 EACH CAP.SPRINK GT SCH ×2 (08:51→16:38)
[2019-05-27] MEDS: VITAMINS A AND D 56.7 GM TUBE TP SCH ×2 (09:00→20:06)
[2019-05-27] MEDS: VITS A AND D/WHITE PET/LANOLIN 5 GM PACKET TP SCH ×4 (09:00→20:06)
[2019-05-27] MEDS: DICLOFENAC TOPICAL 100 GM GEL..GM. TP SCH ×2 (09:00→16:38)
[2019-05-27] MEDS: HYDROGEN PEROXIDE 480 ML BOTTLE TP SCH ×2 (09:34→20:06)
[2019-05-27] MEDS: [UNRECOGNIZED DRUG - OTHER] TP SCH ×2 (12:30→20:06)
[2019-05-27] MEDS: ACETAMINOPHEN 650 MG/20 ML UDC- SA PATIENTS-PAIN ONLY GT PRN (12:37)
[2019-05-27] MEDS: JEVITY 1.2 CAL 1,000 ML BOTTLE GT PRN (16:33)
[2019-05-27 19:44] VITALS: BP 133/74
[2019-05-27] MEDS: GLYCOPYRROLATE 1 MG TABLET GT PRN (20:07)
[2019-05-27] MEDS: MAGNESIUM HYDROXIDE 30 ML UDC GT PRN (21:07)
[2019-05-27] MEDS: PRAVASTATIN SODIUM 20 MG TABLET GT SCH (21:07)
[2019-05-27] MEDS: BENAZEPRIL HCL 5 MG TABLET GT SCH (21:07)
[2019-05-27] MEDS: LATANOPROST EYE DROP 0.005% 2.5 ML BOTTLE EACHEYE SCH (21:07)
[2019-05-28] MEDS: IPRATROPIUM NEB FS 0.5 MG/2.5 ML AMPUL.NEB NEB SCH ×4 (01:20→19:51)
[2019-05-28] MEDS: CHLORHEXIDINE GLUCONATE 15 ML UDC MM SCH ×2 (05:20→18:00)
[2019-05-28 07:29] VITALS: BP 127/73
[2019-05-28] MEDS: HYDROGEN PEROXIDE 480 ML BOTTLE TP SCH ×2 (07:56→19:51)
[2019-05-28] MEDS: RIFAXIMIN 550 MG TABLET GT SCH ×2 (08:17→16:35)
[2019-05-28] MEDS: FINASTERIDE (5 MG) 5 MG TABLET GT SCH (08:17)
[2019-05-28] MEDS: BIOTIN 5000 MCG GT SCH (08:17)
[2019-05-28] MEDS: POTASSIUM CHLORIDE GT SCH (08:17)
[2019-05-28] MEDS: CHOLECALCIFEROL (VITAMIN D 3) 400 UNIT TABLET GT SCH ×2 (08:23→21:23)
[2019-05-28] MEDS: LACTOBACILLUS RHAMNOSUS GG 1 EACH CAP.SPRINK GT SCH ×2 (08:23→16:35)
[2019-05-28] MEDS: VITS A AND D/WHITE PET/LANOLIN 5 GM PACKET TP SCH ×4 (08:23→21:23)
[2019-05-28] MEDS: DICLOFENAC TOPICAL 100 GM GEL..GM. TP SCH ×2 (09:00→16:35)
[2019-05-28] MEDS: VITAMINS A AND D 56.7 GM TUBE TP SCH ×2 (09:00→21:23)
[2019-05-28] MEDS: MAGNESIUM HYDROXIDE 30 ML UDC GT PRN (11:00)
[2019-05-28] MEDS: HYDROCODONE/APAP 7.5/325MG 1 EACH TABLET GT PRN (11:11)
[2019-05-28] MEDS: [UNRECOGNIZED DRUG - OTHER] TP SCH ×2 (12:19→21:23)
[2019-05-28] MEDS: JEVITY 1.2 CAL 1,000 ML BOTTLE GT PRN (16:30)
[2019-05-28] MEDS: BISACODYL SUPP (10 MG) 10 MG/SUPP.RECT SUPP.RECT RC PRN (18:47)
[2019-05-28 19:48] VITALS: BP 135/78
--- NOTE | 2019-05-28 20:02 | NUR ---
RT NOTE: RECEIVED PT ON ROOM AIR. PLACED TRACH PT ON COOL AEROSOL AT THIS TIME. AMBU BAG @ BEDSIDE. Q6 BREATHING TX GIVEN PER MD ORDERS WITH NO ADVERSE REACTION NOTED. SX DONE PRN. TRACH PATENT AND SECURED. TRACH CARE DONE. NO RESP DISTRESS NOTED AT THIS TIME. WILL CONTINUE TO MONITOR PT Addendum: 05/29/19 at 0532 by LINNEA TOVAR RT Amended: Links added.
[2019-05-28] MEDS: BENAZEPRIL HCL 5 MG TABLET GT SCH (21:23)
[2019-05-28] MEDS: LATANOPROST EYE DROP 0.005% 2.5 ML BOTTLE EACHEYE SCH (21:23)
[2019-05-28] MEDS: PRAVASTATIN SODIUM 20 MG TABLET GT SCH (21:23)
[2019-05-29] MEDS: IPRATROPIUM NEB FS 0.5 MG/2.5 ML AMPUL.NEB NEB SCH ×4 (01:55→19:30)
[2019-05-29] MEDS: CHLORHEXIDINE GLUCONATE 15 ML UDC MM SCH ×2 (05:03→18:26)
[2019-05-29] MEDS: JEVITY 1.2 CAL 1,000 ML BOTTLE GT PRN (05:22)
[2019-05-29] MEDS: HYDROCODONE/APAP 7.5/325MG 1 EACH TABLET GT PRN ×2 (05:27→12:25)
[2019-05-29] MEDS: LACTOBACILLUS RHAMNOSUS GG 1 EACH CAP.SPRINK GT SCH ×2 (09:03→16:56)
[2019-05-29] MEDS: CHOLECALCIFEROL (VITAMIN D 3) 400 UNIT TABLET GT SCH ×2 (09:03→21:42)
[2019-05-29] MEDS: RIFAXIMIN 550 MG TABLET GT SCH ×2 (09:03→16:56)
[2019-05-29] MEDS: POTASSIUM CHLORIDE GT SCH (09:03)
[2019-05-29] MEDS: FINASTERIDE (5 MG) 5 MG TABLET GT SCH (09:03)
[2019-05-29] MEDS: BIOTIN 5000 MCG GT SCH (09:03)
[2019-05-29] MEDS: DICLOFENAC TOPICAL 100 GM GEL..GM. TP SCH ×2 (09:04→16:56)
[2019-05-29] MEDS: VITAMINS A AND D 56.7 GM TUBE TP SCH ×2 (09:04→21:43)
[2019-05-29] MEDS: VITS A AND D/WHITE PET/LANOLIN 5 GM PACKET TP SCH ×4 (09:04→21:42)
[2019-05-29] MEDS: HYDROGEN PEROXIDE 480 ML BOTTLE TP SCH ×2 (09:45→20:31)
[2019-05-29 11:04] VITALS: BP 113/76
--- NOTE | 2019-05-29 13:39 | NUR ---
The patients Asha spoke to SW requesting that nursing staff be reminded that residents teeth should be brushed with special toothpaste recommended by dentist, Dr. Walter to help with patient's bleeding gums. Per Asha, the toothpaste which is stored on the pt.s side table. SW use reflective listening to ensure accuracy of information relayed and assured Asha that staff will be reminded. Asha expressed appreciation for SW assistance. SW relayed information to charge nurse.
[2019-05-29] MEDS: [UNRECOGNIZED DRUG - OTHER] TP SCH ×2 (13:40→21:42)
[2019-05-29 19:59] VITALS: BP 134/85
[2019-05-29] MEDS: BENAZEPRIL HCL 20 MG TABLET GT SCH (21:43)
[2019-05-29] MEDS: PRAVASTATIN SODIUM 20 MG TABLET GT SCH (21:43)
[2019-05-29] MEDS: LATANOPROST EYE DROP 0.005% 2.5 ML BOTTLE EACHEYE SCH (21:43)
[2019-05-30] MEDS: IPRATROPIUM NEB FS 0.5 MG/2.5 ML AMPUL.NEB NEB SCH ×4 (02:11→19:46)
[2019-05-30] MEDS: CHLORHEXIDINE GLUCONATE 15 ML UDC MM SCH ×2 (05:30→17:18)
[2019-05-30] MEDS: JEVITY 1.2 CAL 1,000 ML BOTTLE GT PRN (06:08)
[2019-05-30 07:55] VITALS: BP 102/69
[2019-05-30] MEDS: VITS A AND D/WHITE PET/LANOLIN 5 GM PACKET TP SCH ×4 (09:00→21:51)
[2019-05-30] MEDS: VITAMINS A AND D 56.7 GM TUBE TP SCH ×2 (09:00→21:51)
[2019-05-30] MEDS: DICLOFENAC TOPICAL 100 GM GEL..GM. TP SCH ×2 (09:00→16:26)
[2019-05-30] MEDS: HYDROGEN PEROXIDE 480 ML BOTTLE TP SCH ×2 (09:21→19:46)
[2019-05-30] MEDS: FINASTERIDE (5 MG) 5 MG TABLET GT SCH (09:43)
[2019-05-30] MEDS: CHOLECALCIFEROL (VITAMIN D 3) 400 UNIT TABLET GT SCH ×2 (09:43→21:51)
[2019-05-30] MEDS: BIOTIN 5000 MCG GT SCH (09:43)
[2019-05-30] MEDS: LACTOBACILLUS RHAMNOSUS GG 1 EACH CAP.SPRINK GT SCH ×2 (09:43→16:26)
[2019-05-30] MEDS: POTASSIUM CHLORIDE GT SCH (09:43)
[2019-05-30] MEDS: RIFAXIMIN 550 MG TABLET GT SCH ×2 (09:43→16:26)
[2019-05-30] MEDS: HYDROCODONE/APAP 7.5/325MG 1 EACH TABLET GT PRN (09:51)
[2019-05-30] MEDS: [UNRECOGNIZED DRUG - OTHER] TP SCH ×2 (12:34→21:51)
--- NOTE | 2019-05-30 19:56 | NUR ---
RT NOTE: RECEIVED PT ON ROOM AIR. PLACED TRACH PT ON COOL AEROSOL AT THIS TIME. AMBU BAG @ BEDSIDE. Q6 BREATHING TX GIVEN PER MD ORDERS WITH NO ADVERSE REACTION NOTED. SX DONE PRN. TRACH PATENT AND SECURED. TRACH CARE DONE. NO RESP DISTRESS NOTED AT THIS TIME. WILL CONTINUE TO MONITOR PT Addendum: 05/31/19 at 0355 by LINNEA TOVAR RT Amended: Links added.
[2019-05-30 20:42] VITALS: BP 122/76
[2019-05-30] MEDS: BENAZEPRIL HCL 20 MG TABLET GT SCH (21:51)
[2019-05-30] MEDS: PRAVASTATIN SODIUM 20 MG TABLET GT SCH (21:51)
[2019-05-30] MEDS: LATANOPROST EYE DROP 0.005% 2.5 ML BOTTLE EACHEYE SCH (21:51)
[2019-05-31] MEDS: IPRATROPIUM NEB FS 0.5 MG/2.5 ML AMPUL.NEB NEB SCH ×4 (01:48→19:40)
[2019-05-31] MEDS: CHLORHEXIDINE GLUCONATE 15 ML UDC MM SCH ×2 (05:25→17:31)
[2019-05-31] MEDS: JEVITY 1.2 CAL 1,000 ML BOTTLE GT PRN (06:32)
[2019-05-31 07:54] VITALS: BP 119/66
[2019-05-31] MEDS: HYDROGEN PEROXIDE 480 ML BOTTLE TP SCH ×2 (08:31→19:40)
[2019-05-31] MEDS: VITS A AND D/WHITE PET/LANOLIN 5 GM PACKET TP SCH ×4 (09:00→21:50)
[2019-05-31] MEDS: DICLOFENAC TOPICAL 100 GM GEL..GM. TP SCH ×2 (09:00→17:31)
[2019-05-31] MEDS: CHOLECALCIFEROL (VITAMIN D 3) 400 UNIT TABLET GT SCH ×2 (09:00→21:49)
[2019-05-31] MEDS: VITAMINS A AND D 56.7 GM TUBE TP SCH ×2 (09:00→21:50)
[2019-05-31] MEDS: BIOTIN 5000 MCG GT SCH (09:00)
[2019-05-31] MEDS: RIFAXIMIN 550 MG TABLET GT SCH ×2 (09:00→17:31)
[2019-05-31] MEDS: FINASTERIDE (5 MG) 5 MG TABLET GT SCH (09:00)
[2019-05-31] MEDS: LACTOBACILLUS RHAMNOSUS GG 1 EACH CAP.SPRINK GT SCH ×2 (09:00→17:31)
[2019-05-31] MEDS: POTASSIUM CHLORIDE GT SCH (09:00)
[2019-05-31] MEDS: [UNRECOGNIZED DRUG - OTHER] TP SCH ×2 (12:16→21:49)
--- NOTE | 2019-05-31 13:50 | NUR ---
SW invited the patients , Asha [phone] to family support group in person. Per Asha, she will be in attendance. Noted.
[2019-05-31 20:03] VITALS: BP 117/66
[2019-05-31] MEDS: LATANOPROST EYE DROP 0.005% 2.5 ML BOTTLE EACHEYE SCH (21:50)
[2019-05-31] MEDS: BENAZEPRIL HCL 20 MG TABLET GT SCH (21:53)
[2019-05-31] MEDS: PRAVASTATIN SODIUM 20 MG TABLET GT SCH (21:53)
[2019-06-01] MEDS: IPRATROPIUM NEB FS 0.5 MG/2.5 ML AMPUL.NEB NEB SCH ×4 (01:40→20:25)
[2019-06-01] MEDS: CHLORHEXIDINE GLUCONATE 15 ML UDC MM SCH ×2 (05:32→17:05)
[2019-06-01] MEDS: JEVITY 1.2 CAL 1,000 ML BOTTLE GT PRN (06:02)
[2019-06-01 08:07] VITALS: BP 119/76
[2019-06-01] MEDS: POTASSIUM CHLORIDE GT SCH (09:00)
[2019-06-01] MEDS: BIOTIN 5000 MCG GT SCH (09:00)
[2019-06-01] MEDS: VITS A AND D/WHITE PET/LANOLIN 5 GM PACKET TP SCH ×4 (09:00→20:27)
[2019-06-01] MEDS: CHOLECALCIFEROL (VITAMIN D 3) 400 UNIT TABLET GT SCH ×2 (09:00→20:27)
[2019-06-01] MEDS: HYDROGEN PEROXIDE 480 ML BOTTLE TP SCH ×2 (09:00→20:27)
[2019-06-01] MEDS: LACTOBACILLUS RHAMNOSUS GG 1 EACH CAP.SPRINK GT SCH ×2 (09:00→17:05)
[2019-06-01] MEDS: FINASTERIDE (5 MG) 5 MG TABLET GT SCH (09:00)
[2019-06-01] MEDS: VITAMINS A AND D 56.7 GM TUBE TP SCH ×2 (09:00→20:27)
[2019-06-01] MEDS: DICLOFENAC TOPICAL 100 GM GEL..GM. TP SCH ×2 (09:00→17:05)
[2019-06-01] MEDS: RIFAXIMIN 550 MG TABLET GT SCH ×2 (09:00→17:05)
[2019-06-01] MEDS: [UNRECOGNIZED DRUG - OTHER] TP SCH ×2 (13:00→20:27)
--- NOTE | 2019-06-01 13:17 | NUR ---
SKIP was notified by charge nurse that the pt.s , Asha asked the maintenance staff to clean the pt.s mattress with bleach because it was soiled. Per Charge Nurse, the sap plant maintenance consultant did not consult with any nursing staff before cleaning the pt.s mattress with bleach. Nursing staff were not alerted and the pt.s remained in the room while the cleaning happened. SKIP spoke with pt.s at pt.s bedside and informed her that bleach cannot be used to clean the patients mattress and that the pt.s must be taken out of the room if bleach is ever used to clean anything inside the room. SKIP informed Asha, that it is a health hazard for pt.s to breath in the fumes. SKIP informed Asha that alternative solutions are used to disinfect the mattress when soiled and requested that Asha should inform charge nurse when mattress requires cleaning in the future. Asha was agreeable to plan. Asha denied asking maintenance staff to clean the mattress with bleach. However, Maintenance staff told SKIP that Asha asked them to clean the mattress with bleach. SKIP educated Maintenance staff that mattress cannot not be cleaned with Bleach and if Maintenance staff ever receive request from families, they should refer them to charge nurse. Maintenance staff apologized and was agreeable to plan.
[2019-06-01] MEDS: BISACODYL SUPP (10 MG) 10 MG/SUPP.RECT SUPP.RECT RC PRN (15:06)
--- NOTE | 2019-06-01 20:06 | NUR ---
Seen and examined by ISABELA Pichardo no new orders.
[2019-06-01] MEDS: GLYCOPYRROLATE 1 MG TABLET GT PRN (20:28)
[2019-06-01 20:59] VITALS: BP 123/77
[2019-06-01] MEDS: LATANOPROST EYE DROP 0.005% 2.5 ML BOTTLE EACHEYE SCH (21:07)
[2019-06-01] MEDS: BENAZEPRIL HCL 20 MG TABLET GT SCH (21:08)
[2019-06-01] MEDS: PRAVASTATIN SODIUM 20 MG TABLET GT SCH (21:08)
--- NOTE | 2019-06-01 21:11 | NUR ---
PT RCVD TRACH'D ON COOL AEROSOL WITH CHARTED SETTINGS. PT FRANCIE TX WELL. SX DONE. PT TRACH IS PATENT AND SECURE. AMBU BAG AT BEDSIDE. NO SOB NOTED. Addendum: 06/01/19 at 2111 by LISETH MOCK RT Amended: Links added.
[2019-06-01] MEDS: HYDROCODONE/APAP 7.5/325MG 1 EACH TABLET GT PRN (23:42)
[2019-06-02] MEDS: IPRATROPIUM NEB FS 0.5 MG/2.5 ML AMPUL.NEB NEB SCH ×4 (00:56→20:13)
[2019-06-02] MEDS: CHLORHEXIDINE GLUCONATE 15 ML UDC MM SCH ×2 (05:15→17:11)
[2019-06-02] MEDS: JEVITY 1.2 CAL 1,000 ML BOTTLE GT PRN (05:15)
[2019-06-02 06:46] VITALS: BP 134/74
[2019-06-02] MEDS: HYDROGEN PEROXIDE 480 ML BOTTLE TP SCH ×2 (09:00→20:13)
[2019-06-02] MEDS: BIOTIN 5000 MCG GT SCH (09:10)
[2019-06-02] MEDS: RIFAXIMIN 550 MG TABLET GT SCH ×2 (09:10→16:58)
[2019-06-02] MEDS: FINASTERIDE (5 MG) 5 MG TABLET GT SCH (09:10)
[2019-06-02] MEDS: CHOLECALCIFEROL (VITAMIN D 3) 400 UNIT TABLET GT SCH ×2 (09:10→20:21)
[2019-06-02] MEDS: VITAMINS A AND D 56.7 GM TUBE TP SCH ×2 (09:10→20:22)
[2019-06-02] MEDS: VITS A AND D/WHITE PET/LANOLIN 5 GM PACKET TP SCH ×4 (09:10→20:22)
[2019-06-02] MEDS: POTASSIUM CHLORIDE GT SCH (09:10)
[2019-06-02] MEDS: LACTOBACILLUS RHAMNOSUS GG 1 EACH CAP.SPRINK GT SCH ×2 (09:10→16:58)
[2019-06-02] MEDS: DICLOFENAC TOPICAL 100 GM GEL..GM. TP SCH ×2 (09:11→16:58)
--- NOTE | 2019-06-02 12:21 | NUR ---
Seen and examined by Dr. Sarah, industrial energy engineer made aware of the referral by Dr. Edwards regarding concern regarding patient's R big toe. She said that his toe curls inside when he ambulates. MD assessed patient's gait. She said she will consult with her colleague of the best thing to do but she would like a conservative approach by using B/L AFO to help with equinus however he may need surgery if AFO boots will not work. Resident's informed.
[2019-06-02] MEDS: [UNRECOGNIZED DRUG - OTHER] TP SCH ×2 (13:00→20:21)
[2019-06-02] MEDS: HYDROCODONE/APAP 7.5/325MG 1 EACH TABLET GT PRN (19:04)
[2019-06-02 19:58] VITALS: BP 131/89
[2019-06-02] MEDS: LATANOPROST EYE DROP 0.005% 2.5 ML BOTTLE EACHEYE SCH (21:09)
[2019-06-02] MEDS: BENAZEPRIL HCL 20 MG TABLET GT SCH (21:09)
[2019-06-02] MEDS: PRAVASTATIN SODIUM 20 MG TABLET GT SCH (21:09)
[2019-06-03] MEDS: IPRATROPIUM NEB FS 0.5 MG/2.5 ML AMPUL.NEB NEB SCH ×4 (01:37→20:07)
[2019-06-03] MEDS: CHLORHEXIDINE GLUCONATE 15 ML UDC MM SCH ×2 (05:33→18:53)
[2019-06-03] MEDS: SIMETHICONE SUSP 40 MG/0.6 ML BOTTLE GT PRN (05:33)
[2019-06-03] MEDS: JEVITY 1.2 CAL 1,000 ML BOTTLE GT PRN (05:34)
[2019-06-03] MEDS: GLYCOPYRROLATE 1 MG TABLET GT PRN (05:34)
[2019-06-03] MEDS: SUMATRIPTAN SUCCINATE 25 MG TABLET GT PRN (05:34)
[2019-06-03 07:50] VITALS: BP 124/78
[2019-06-03] MEDS: POTASSIUM CHLORIDE GT SCH (08:39)
[2019-06-03] MEDS: LACTOBACILLUS RHAMNOSUS GG 1 EACH CAP.SPRINK GT SCH ×2 (08:39→16:54)
[2019-06-03] MEDS: BIOTIN 5000 MCG GT SCH (08:40)
[2019-06-03] MEDS: RIFAXIMIN 550 MG TABLET GT SCH ×2 (08:40→16:54)
[2019-06-03] MEDS: FINASTERIDE (5 MG) 5 MG TABLET GT SCH (08:40)
[2019-06-03] MEDS: VITS A AND D/WHITE PET/LANOLIN 5 GM PACKET TP SCH ×4 (08:42→20:12)
[2019-06-03] MEDS: CHOLECALCIFEROL (VITAMIN D 3) 400 UNIT TABLET GT SCH ×2 (09:00→20:08)
[2019-06-03] MEDS: HYDROGEN PEROXIDE 480 ML BOTTLE TP SCH ×2 (09:00→20:08)
[2019-06-03] MEDS: DICLOFENAC TOPICAL 100 GM GEL..GM. TP SCH ×2 (09:00→16:55)
[2019-06-03] MEDS: VITAMINS A AND D 56.7 GM TUBE TP SCH ×2 (09:00→20:12)
[2019-06-03] MEDS: [UNRECOGNIZED DRUG - OTHER] TP SCH ×2 (12:20→20:08)
--- NOTE | 2019-06-03 15:12 | NUR ---
Seen and examined by Dr. Edwards made aware that patient was referred to Dr. Sarah, gas engineer regarding 's concern of patient's R big toe contracture. Informed Dr. Edwards that per Dr. Sarah, she is recommending B/L AFO to help with equinus and gait and if this does not help she said patient may need surgery.
[2019-06-03] MEDS: HYDROCODONE/APAP 7.5/325MG 1 EACH TABLET GT PRN (19:27)
[2019-06-03 20:38] VITALS: BP 139/90
[2019-06-03] MEDS: LATANOPROST EYE DROP 0.005% 2.5 ML BOTTLE EACHEYE SCH (21:07)
[2019-06-03] MEDS: BENAZEPRIL HCL 20 MG TABLET GT SCH (21:07)
[2019-06-03] MEDS: PRAVASTATIN SODIUM 20 MG TABLET GT SCH (21:07)
[2019-06-04] MEDS: IPRATROPIUM NEB FS 0.5 MG/2.5 ML AMPUL.NEB NEB SCH ×4 (01:27→20:05)
[2019-06-04] MEDS: MAGNESIUM HYDROXIDE 30 ML UDC GT PRN (05:09)
[2019-06-04] MEDS: JEVITY 1.2 CAL 1,000 ML BOTTLE GT PRN (05:09)
[2019-06-04] MEDS: GLYCOPYRROLATE 1 MG TABLET GT PRN (05:09)
[2019-06-04] MEDS: CHLORHEXIDINE GLUCONATE 15 ML UDC MM SCH ×2 (05:09→18:47)
[2019-06-04 08:12] VITALS: BP 130/76
--- NOTE | 2019-06-04 08:19 | NUR ---
RT NOTE: REC'D TRACH PT ON COOL AEROSOL THEN PLACED ON ROOM AIR PER MD ORDER. YENNY BAG @ BEDSIDE. SX DONE PRN. TRACH PATENT AND SECURED. TRACH CARE DONE. NO RESP DISTRESS NOTED AT THIS TIME. WILL CONTINUE TO MONITOR. Addendum: 06/04/19 at 0819 by KRYSTLE ELIZABETH RT Amended: Links added.
[2019-06-04] MEDS: POTASSIUM CHLORIDE GT SCH (08:38)
[2019-06-04] MEDS: LACTOBACILLUS RHAMNOSUS GG 1 EACH CAP.SPRINK GT SCH ×2 (08:39→17:09)
[2019-06-04] MEDS: BIOTIN 5000 MCG GT SCH (08:39)
[2019-06-04] MEDS: FINASTERIDE (5 MG) 5 MG TABLET GT SCH (08:39)
[2019-06-04] MEDS: RIFAXIMIN 550 MG TABLET GT SCH ×2 (08:39→17:11)
[2019-06-04] MEDS: CHOLECALCIFEROL (VITAMIN D 3) 400 UNIT TABLET GT SCH ×2 (08:40→21:48)
[2019-06-04] MEDS: VITS A AND D/WHITE PET/LANOLIN 5 GM PACKET TP SCH ×4 (08:40→21:49)
[2019-06-04] MEDS: VITAMINS A AND D 56.7 GM TUBE TP SCH ×2 (08:40→21:49)
[2019-06-04] MEDS: DICLOFENAC TOPICAL 100 GM GEL..GM. TP SCH ×2 (09:00→17:11)
[2019-06-04] MEDS: HYDROGEN PEROXIDE 480 ML BOTTLE TP SCH ×2 (09:53→20:05)
[2019-06-04] MEDS: [UNRECOGNIZED DRUG - OTHER] TP SCH ×2 (12:11→21:49)
[2019-06-04] MEDS: ACETAMINOPHEN 650 MG/20 ML UDC- SA PATIENTS-PAIN ONLY GT PRN (14:30)
[2019-06-04 20:04] VITALS: BP 125/80
[2019-06-04] MEDS: PRAVASTATIN SODIUM 20 MG TABLET GT SCH (21:49)
[2019-06-04] MEDS: BENAZEPRIL HCL 20 MG TABLET GT SCH (21:49)
[2019-06-04] MEDS: LATANOPROST EYE DROP 0.005% 2.5 ML BOTTLE EACHEYE SCH (21:49)
[2019-06-05] MEDS: JEVITY 1.2 CAL 1,000 ML BOTTLE GT PRN (01:00)
[2019-06-05] MEDS: IPRATROPIUM NEB FS 0.5 MG/2.5 ML AMPUL.NEB NEB SCH ×4 (01:25→19:56)
[2019-06-05] MEDS: CHLORHEXIDINE GLUCONATE 15 ML UDC MM SCH ×2 (06:14→17:10)
[2019-06-05 07:56] VITALS: BP 108/75
[2019-06-05] MEDS: FINASTERIDE (5 MG) 5 MG TABLET GT SCH (08:39)
[2019-06-05] MEDS: CHOLECALCIFEROL (VITAMIN D 3) 400 UNIT TABLET GT SCH ×2 (08:39→21:16)
[2019-06-05] MEDS: LACTOBACILLUS RHAMNOSUS GG 1 EACH CAP.SPRINK GT SCH ×2 (08:39→16:28)
[2019-06-05] MEDS: POTASSIUM CHLORIDE GT SCH (08:39)
[2019-06-05] MEDS: VITS A AND D/WHITE PET/LANOLIN 5 GM PACKET TP SCH ×4 (08:39→21:16)
[2019-06-05] MEDS: BIOTIN 5000 MCG GT SCH (08:39)
[2019-06-05] MEDS: RIFAXIMIN 550 MG TABLET GT SCH ×2 (08:39→16:28)
[2019-06-05] MEDS: VITAMINS A AND D 56.7 GM TUBE TP SCH ×2 (08:40→21:17)
[2019-06-05] MEDS: DICLOFENAC TOPICAL 100 GM GEL..GM. TP SCH ×2 (08:40→16:28)
[2019-06-05] MEDS: HYDROGEN PEROXIDE 480 ML BOTTLE TP SCH ×2 (09:00→20:17)
[2019-06-05] MEDS: [UNRECOGNIZED DRUG - OTHER] TP SCH ×2 (12:19→21:16)
[2019-06-05 19:53] VITALS: BP 120/85
--- NOTE | 2019-06-05 20:48 | NUR ---
PT RCVD TRACH'D ON COOL AEROSOL WITH CHARTED SETTINGS. PT FRANCIE TX WELL. SX DONE. PT TRACH IS PATENT AND SECURE. AMBU BAG AT BEDSIDE. NO SOB NOTED. Addendum: 06/05/19 at 2047 by LISETH MOCK RT Amended: Links added.
[2019-06-05] MEDS: BENAZEPRIL HCL 20 MG TABLET GT SCH (21:17)
[2019-06-05] MEDS: LATANOPROST EYE DROP 0.005% 2.5 ML BOTTLE EACHEYE SCH (21:17)
[2019-06-05] MEDS: PRAVASTATIN SODIUM 20 MG TABLET GT SCH (21:17)
[2019-06-06] MEDS: IPRATROPIUM NEB FS 0.5 MG/2.5 ML AMPUL.NEB NEB SCH ×4 (00:56→19:29)
[2019-06-06] MEDS: MAGNESIUM HYDROXIDE 30 ML UDC GT PRN (04:11)
[2019-06-06] MEDS: HYDROCODONE/APAP 7.5/325MG 1 EACH TABLET GT PRN (04:12)
[2019-06-06] MEDS: CHLORHEXIDINE GLUCONATE 15 ML UDC MM SCH ×2 (05:34→17:00)
[2019-06-06] MEDS: JEVITY 1.2 CAL 1,000 ML BOTTLE GT PRN (05:35)
[2019-06-06 08:14] VITALS: BP 130/89
[2019-06-06] MEDS: CHOLECALCIFEROL (VITAMIN D 3) 400 UNIT TABLET GT SCH ×2 (09:10→21:45)
[2019-06-06] MEDS: LACTOBACILLUS RHAMNOSUS GG 1 EACH CAP.SPRINK GT SCH ×2 (09:10→16:58)
[2019-06-06] MEDS: BIOTIN 5000 MCG GT SCH (09:10)
[2019-06-06] MEDS: FINASTERIDE (5 MG) 5 MG TABLET GT SCH (09:10)
[2019-06-06] MEDS: POTASSIUM CHLORIDE GT SCH (09:10)
[2019-06-06] MEDS: RIFAXIMIN 550 MG TABLET GT SCH ×2 (09:10→16:58)
[2019-06-06] MEDS: DICLOFENAC TOPICAL 100 GM GEL..GM. TP SCH ×2 (09:11→16:58)
[2019-06-06] MEDS: VITAMINS A AND D 56.7 GM TUBE TP SCH ×2 (09:11→21:45)
[2019-06-06] MEDS: VITS A AND D/WHITE PET/LANOLIN 5 GM PACKET TP SCH ×4 (09:11→21:45)
[2019-06-06] MEDS: HYDROGEN PEROXIDE 480 ML BOTTLE TP SCH ×2 (09:58→21:00)
--- NOTE | 2019-06-06 10:16 | NUR ---
RT NOTE: REC'D TRACH PT ON COOL AEROSOL THEN PLACED ON ROOM AIR PER MD ORDER. YENNY BAG @ BEDSIDE. SX DONE PRN. TRACH PATENT AND SECURED. TRACH CARE DONE. NO RESP DISTRESS NOTED AT THIS TIME. WILL CONTINUE TO MONITOR. Addendum: 06/06/19 at 1016 by KRYSTLE ELIZABETH RT Amended: Links added.
[2019-06-06] MEDS: [UNRECOGNIZED DRUG - OTHER] TP SCH ×2 (13:19→21:45)
[2019-06-06 20:12] VITALS: BP 133/83
[2019-06-06] MEDS: BENAZEPRIL HCL 20 MG TABLET GT SCH (21:45)
[2019-06-06] MEDS: LATANOPROST EYE DROP 0.005% 2.5 ML BOTTLE EACHEYE SCH (21:45)
[2019-06-06] MEDS: PRAVASTATIN SODIUM 20 MG TABLET GT SCH (21:45)
[2019-06-07] MEDS: IPRATROPIUM NEB FS 0.5 MG/2.5 ML AMPUL.NEB NEB SCH ×4 (00:39→20:17)
[2019-06-07] MEDS: HYDROCODONE/APAP 7.5/325MG 1 EACH TABLET GT PRN ×2 (01:00→13:53)
[2019-06-07] MEDS: CHLORHEXIDINE GLUCONATE 15 ML UDC MM SCH ×2 (05:30→17:18)
[2019-06-07] MEDS: JEVITY 1.2 CAL 1,000 ML BOTTLE GT PRN (05:31)
[2019-06-07] MEDS: HYDROGEN PEROXIDE 480 ML BOTTLE TP SCH ×2 (07:53→21:00)
[2019-06-07 08:00] VITALS: BP 134/85
[2019-06-07] MEDS: BIOTIN 5000 MCG GT SCH (08:12)
[2019-06-07] MEDS: POTASSIUM CHLORIDE GT SCH (08:12)
[2019-06-07] MEDS: FINASTERIDE (5 MG) 5 MG TABLET GT SCH (08:12)
[2019-06-07] MEDS: LACTOBACILLUS RHAMNOSUS GG 1 EACH CAP.SPRINK GT SCH ×2 (08:12→17:18)
[2019-06-07] MEDS: VITAMINS A AND D 56.7 GM TUBE TP SCH ×2 (08:12→21:46)
[2019-06-07] MEDS: RIFAXIMIN 550 MG TABLET GT SCH ×2 (08:12→17:18)
[2019-06-07] MEDS: CHOLECALCIFEROL (VITAMIN D 3) 400 UNIT TABLET GT SCH ×2 (08:12→21:46)
[2019-06-07] MEDS: VITS A AND D/WHITE PET/LANOLIN 5 GM PACKET TP SCH ×4 (08:12→21:46)
[2019-06-07] MEDS: DICLOFENAC TOPICAL 100 GM GEL..GM. TP SCH ×2 (08:12→17:18)
--- NOTE | 2019-06-07 11:00 | NUR ---
Asked Dr. Sarah, java integration developer the type of AFO she is recommending, she said "hinged AFO", Informed PT and requested an orthosis which can be contacted. Informed SSD.
[2019-06-07] MEDS: [UNRECOGNIZED DRUG - OTHER] TP SCH ×2 (12:53→21:46)
--- NOTE | 2019-06-07 13:40 | NUR ---
RT NOTE ROUTINE MONTHLY TRACH CHANGE PER RT PROTOCOL DONE. PATIENT TOLERATED PROCEDURE WELL. NO SOB NOTED. PATIENT HAS EQUAL CHEST RISE WITH CLEAR BILATERAL BREATH SOUNDS. NO REDNESS ON THE STOMA AND NO BLEEDING. PATIENT CURRENTLY ON ROOM AIR. WILL CONTINUE TO MONITOR. Addendum: 06/07/19 at 1625 by JENNY PEOPLES RT Amended: Links added.
[2019-06-07] MEDS: SUMATRIPTAN SUCCINATE 25 MG TABLET GT PRN (15:27)
--- NOTE | 2019-06-07 16:08 | NUR ---
June Family Support Group Note: Goal: Residents Asha will attend family support group held Friday, June 07, 2019 from 11 am-12 pm. Intervention: SW facilitated family support group and explored how and if family celebrates for the holiday season. SW educated Asha about the Fall and Winter Blues causes and ways to prevent and treat it. SW encouraged Asha to see a doctor because her health is the priority. SW acknowledged Asha for always taking care of the resident. SW also stressed the importance of Ahsa taking care of herself so that she and continue to care for the pt. Response: The patients Asha attended the Family Support Group. Asha is Mongolian peaking only. Asha stated that she and her family are Jehovahs Witness and they dont celebrate [place] or Thanksgiving. Per Asha she does not go through the stress of shopping for all her family members. Asha discussed previous losses that she has had in her life and stated that her kiersten helps her get through those hard times. Asha was gratefully for tips. Asha expressed that she hasnt been herself lately and has been feeling ill. Asha stated thats he will follow up with a doctor to ensure she is well. Plan: Family was invited to attend next family support Group held July 05, 2019, 11 am-12 pm.
[2019-06-07 20:17] VITALS: BP 131/88
[2019-06-07] MEDS: LATANOPROST EYE DROP 0.005% 2.5 ML BOTTLE EACHEYE SCH (21:46)
[2019-06-07] MEDS: BENAZEPRIL HCL 20 MG TABLET GT SCH (21:47)
[2019-06-07] MEDS: PRAVASTATIN SODIUM 20 MG TABLET GT SCH (21:47)
[2019-06-08] MEDS: IPRATROPIUM NEB FS 0.5 MG/2.5 ML AMPUL.NEB NEB SCH ×4 (00:55→20:25)
[2019-06-08] MEDS: CHLORHEXIDINE GLUCONATE 15 ML UDC MM SCH ×2 (05:35→18:50)
[2019-06-08] MEDS: JEVITY 1.2 CAL 1,000 ML BOTTLE GT PRN (05:49)
[2019-06-08 07:37] VITALS: BP 141/81
[2019-06-08] MEDS: HYDROGEN PEROXIDE 480 ML BOTTLE TP SCH ×2 (08:14→21:56)
[2019-06-08] MEDS: LACTOBACILLUS RHAMNOSUS GG 1 EACH CAP.SPRINK GT SCH ×2 (09:40→16:33)
[2019-06-08] MEDS: POTASSIUM CHLORIDE GT SCH (09:40)
[2019-06-08] MEDS: VITS A AND D/WHITE PET/LANOLIN 5 GM PACKET TP SCH ×4 (09:41→21:56)
[2019-06-08] MEDS: VITAMINS A AND D 56.7 GM TUBE TP SCH ×2 (09:41→21:56)
[2019-06-08] MEDS: CHOLECALCIFEROL (VITAMIN D 3) 400 UNIT TABLET GT SCH ×2 (09:41→21:56)
[2019-06-08] MEDS: RIFAXIMIN 550 MG TABLET GT SCH ×2 (09:41→16:33)
[2019-06-08] MEDS: BIOTIN 5000 MCG GT SCH (09:41)
[2019-06-08] MEDS: DICLOFENAC TOPICAL 100 GM GEL..GM. TP SCH ×2 (09:41→16:33)
[2019-06-08] MEDS: FINASTERIDE (5 MG) 5 MG TABLET GT SCH (09:41)
--- NOTE | 2019-06-08 11:35 | NUR ---
RT NOTE PATIENT DISLODGE TRACH. NEW TRACH WAS PLACED WITH NO COMPLICATIONS. PATIENT IS COMFORTABLE WITH NO SIGNS OF RESPIRATORY DISTRESS. SPO2 IS 92% ON ROOM AIR AND HR IS 65 BPM. PATIENT HAS EQUAL CHEST RISE AND CLEAR BILATERAL BREATH SOUNDS. WILL CONTINUE TO MONITOR. Addendum: 06/08/19 at 1210 by JENNY PEOPLES RT Amended: Links added.
--- NOTE | 2019-06-08 12:18 | NUR ---
Per Charge Nurse, Akshat lewis, SKIP called [facility] and spoke with Norberto to inquire about Hinge AFO Boots for resident. Per Norberto, they do not have them in stock at his office but will have to order them. Per Norberto, [facility] and SKIP should call his Office: [phone] to find out pricing. SKIP called [employer] [employer] office and spoke to Merry who informed SKIP that the Hinge AFO Boots cervantes is $100.00. SKIP will ask family if they are willing to pay out of pocket.
[2019-06-08] MEDS: [UNRECOGNIZED DRUG - OTHER] TP SCH ×2 (12:27→21:56)
[2019-06-08] MEDS: HYDROCODONE/APAP 7.5/325MG 1 EACH TABLET GT PRN ×2 (12:30→20:00)
[2019-06-08] MEDS: MAGNESIUM HYDROXIDE 30 ML UDC GT PRN (13:00)
--- NOTE | 2019-06-08 16:46 | NUR ---
PATIENT RECEIVED ON COOL AEROSOL. TRACH IS PATENT AND SECURED. SPARE TRACH AND BVM IS AT BEDSIDE. PT. HAS EQUAL CHEST RISE WITH CLEAR AND DIMINISHED BREATH SOUNDS. SX. SMALL AMOUNT OF CLEAR TO WHITE THIN SECRETIONS T/O THE DAY. PT TOLERATED BREATHING TX'S WELL. TRACH CARE WAS DONE. Addendum: 06/08/19 at 1647 by JENNY PEOPLES RT Amended: Links added.
--- NOTE | 2019-06-08 17:30 | NUR ---
MANAGER OF COMPENSATION reported that she is unable to reposition patient because he is agitated at this time despite explaining to patient what she will do. Went inside patient's room and asked if he is in pain, did not respond but rather become aggressive. Left patient alone. Kept bed in low position, bed alarm on and frequent visual rounds done. MANAGER OF COMPENSATION returned after an hour and resident allowed MANAGER OF COMPENSATION to change him.
[2019-06-08 20:33] VITALS: BP 117/65
[2019-06-08] MEDS: LATANOPROST EYE DROP 0.005% 2.5 ML BOTTLE EACHEYE SCH (21:56)
[2019-06-08] MEDS: BENAZEPRIL HCL 20 MG TABLET GT SCH (21:57)
[2019-06-08] MEDS: PRAVASTATIN SODIUM 20 MG TABLET GT SCH (21:57)
[2019-06-09] MEDS: MAGNESIUM HYDROXIDE 30 ML UDC GT PRN
[2019-06-09] MEDS: IPRATROPIUM NEB FS 0.5 MG/2.5 ML AMPUL.NEB NEB SCH ×4 (00:38→19:33)
[2019-06-09] MEDS: CHLORHEXIDINE GLUCONATE 15 ML UDC MM SCH ×2 (05:19→18:31)
[2019-06-09] MEDS: JEVITY 1.2 CAL 1,000 ML BOTTLE GT PRN (05:21)
[2019-06-09 08:14] VITALS: BP 131/90
[2019-06-09] MEDS: HYDROGEN PEROXIDE 480 ML BOTTLE TP SCH ×2 (09:00→21:09)
[2019-06-09] MEDS: POTASSIUM CHLORIDE GT SCH (09:10)
[2019-06-09] MEDS: BIOTIN 5000 MCG GT SCH (09:10)
[2019-06-09] MEDS: LACTOBACILLUS RHAMNOSUS GG 1 EACH CAP.SPRINK GT SCH ×2 (09:10→16:47)
[2019-06-09] MEDS: DICLOFENAC TOPICAL 100 GM GEL..GM. TP SCH ×2 (09:10→16:48)
[2019-06-09] MEDS: RIFAXIMIN 550 MG TABLET GT SCH ×2 (09:10→16:47)
[2019-06-09] MEDS: VITS A AND D/WHITE PET/LANOLIN 5 GM PACKET TP SCH ×4 (09:10→20:40)
[2019-06-09] MEDS: CHOLECALCIFEROL (VITAMIN D 3) 400 UNIT TABLET GT SCH ×2 (09:10→20:40)
[2019-06-09] MEDS: FINASTERIDE (5 MG) 5 MG TABLET GT SCH (09:10)
[2019-06-09] MEDS: VITAMINS A AND D 56.7 GM TUBE TP SCH ×2 (09:10→20:40)
[2019-06-09] MEDS: [UNRECOGNIZED DRUG - OTHER] TP SCH ×2 (12:25→20:40)
--- NOTE | 2019-06-09 13:38 | NUR ---
SW completed the SS portion of Annual MDS assessment. The patients responsible alliance party is his , Asha Lopez [phone]. The pt. is awake, alert and confused at times.The pt. can communicate via mouthing, gestures and nodding. Th pt. is Full Code, non-vent with trach and gtube (feeding: PEG Jevity 1.2 at 60ml/hr x 20 hr; per EMR). Residents last dental apt. with Dr. Walter was on 09/05/18. The pt.s last Optometry apt. with Dr. Holliday was on 05/19/19 and the pt.s last podiatry apt. with Dr. Booker was on 06/07/19.
[2019-06-09] MEDS: HYDROCODONE/APAP 7.5/325MG 1 EACH TABLET GT PRN (18:31)
[2019-06-09] MEDS: GLYCOPYRROLATE 1 MG TABLET GT PRN (18:31)
[2019-06-09 20:20] VITALS: BP 130/70
[2019-06-09] MEDS: LATANOPROST EYE DROP 0.005% 2.5 ML BOTTLE EACHEYE SCH (21:14)
[2019-06-09] MEDS: PRAVASTATIN SODIUM 20 MG TABLET GT SCH (21:15)
[2019-06-09] MEDS: BENAZEPRIL HCL 20 MG TABLET GT SCH (21:15)
[2019-06-10] MEDS: IPRATROPIUM NEB FS 0.5 MG/2.5 ML AMPUL.NEB NEB SCH ×4 (01:29→19:53)
[2019-06-10] MEDS: JEVITY 1.2 CAL 1,000 ML BOTTLE GT PRN (05:21)
[2019-06-10] MEDS: CHLORHEXIDINE GLUCONATE 15 ML UDC MM SCH ×2 (05:21→17:36)
[2019-06-10] MEDS: HYDROGEN PEROXIDE 480 ML BOTTLE TP SCH ×2 (08:06→21:20)
[2019-06-10 08:24] VITALS: BP 133/76
[2019-06-10] MEDS: LACTOBACILLUS RHAMNOSUS GG 1 EACH CAP.SPRINK GT SCH ×2 (09:44→16:46)
[2019-06-10] MEDS: BIOTIN 5000 MCG GT SCH (09:44)
[2019-06-10] MEDS: POTASSIUM CHLORIDE GT SCH (09:44)
[2019-06-10] MEDS: DICLOFENAC TOPICAL 100 GM GEL..GM. TP SCH ×2 (09:45→16:46)
[2019-06-10] MEDS: CHOLECALCIFEROL (VITAMIN D 3) 400 UNIT TABLET GT SCH ×2 (09:45→20:21)
[2019-06-10] MEDS: VITS A AND D/WHITE PET/LANOLIN 5 GM PACKET TP SCH ×4 (09:45→20:21)
[2019-06-10] MEDS: FINASTERIDE (5 MG) 5 MG TABLET GT SCH (09:45)
[2019-06-10] MEDS: VITAMINS A AND D 56.7 GM TUBE TP SCH ×2 (09:45→20:22)
[2019-06-10] MEDS: RIFAXIMIN 550 MG TABLET GT SCH ×2 (09:45→16:46)
[2019-06-10] MEDS: [UNRECOGNIZED DRUG - OTHER] TP SCH ×2 (13:00→20:21)
[2019-06-10 20:27] VITALS: BP 110/72
[2019-06-10] MEDS: BENAZEPRIL HCL 20 MG TABLET GT SCH (22:09)
[2019-06-10] MEDS: LATANOPROST EYE DROP 0.005% 2.5 ML BOTTLE EACHEYE SCH (22:09)
[2019-06-10] MEDS: PRAVASTATIN SODIUM 20 MG TABLET GT SCH (22:09)
[2019-06-11] MEDS: IPRATROPIUM NEB FS 0.5 MG/2.5 ML AMPUL.NEB NEB SCH ×4 (01:22→19:38)
[2019-06-11] MEDS: CHLORHEXIDINE GLUCONATE 15 ML UDC MM SCH ×2 (05:33→17:39)
[2019-06-11] MEDS: JEVITY 1.2 CAL 1,000 ML BOTTLE GT PRN (05:34)
[2019-06-11] MEDS: MODAFINIL 100 MG TABLET GT SCH (07:00)
[2019-06-11 08:04] VITALS: BP 119/72
[2019-06-11] MEDS: BIOTIN 5000 MCG GT SCH (08:41)
[2019-06-11] MEDS: POTASSIUM CHLORIDE GT SCH (08:41)
[2019-06-11] MEDS: FINASTERIDE (5 MG) 5 MG TABLET GT SCH (08:42)
[2019-06-11] MEDS: RIFAXIMIN 550 MG TABLET GT SCH ×2 (08:43→16:17)
[2019-06-11] MEDS: CHOLECALCIFEROL (VITAMIN D 3) 400 UNIT TABLET GT SCH ×2 (08:48→20:32)
[2019-06-11] MEDS: LACTOBACILLUS RHAMNOSUS GG 1 EACH CAP.SPRINK GT SCH ×2 (08:49→16:17)
[2019-06-11] MEDS: VITS A AND D/WHITE PET/LANOLIN 5 GM PACKET TP SCH ×4 (08:49→20:32)
[2019-06-11] MEDS: VITAMINS A AND D 56.7 GM TUBE TP SCH ×2 (09:00→20:33)
[2019-06-11] MEDS: HYDROGEN PEROXIDE 480 ML BOTTLE TP SCH ×2 (09:00→21:05)
[2019-06-11] MEDS: DICLOFENAC TOPICAL 100 GM GEL..GM. TP SCH ×2 (09:00→16:17)
[2019-06-11] MEDS: [UNRECOGNIZED DRUG - OTHER] TP SCH ×2 (13:00→20:32)
[2019-06-11 20:41] VITALS: BP 136/84
[2019-06-11] MEDS: LATANOPROST EYE DROP 0.005% 2.5 ML BOTTLE EACHEYE SCH (21:07)
[2019-06-11] MEDS: PRAVASTATIN SODIUM 20 MG TABLET GT SCH (21:08)
[2019-06-11] MEDS: BENAZEPRIL HCL 20 MG TABLET GT SCH (21:08)
[2019-06-12] MEDS: IPRATROPIUM NEB FS 0.5 MG/2.5 ML AMPUL.NEB NEB SCH ×4 (01:39→19:22)
[2019-06-12] MEDS: JEVITY 1.2 CAL 1,000 ML BOTTLE GT PRN (04:30)
[2019-06-12] MEDS: CHLORHEXIDINE GLUCONATE 15 ML UDC MM SCH ×2 (05:17→17:49)
[2019-06-12] MEDS: MODAFINIL 100 MG TABLET GT SCH (05:18)
[2019-06-12] MEDS: HYDROGEN PEROXIDE 480 ML BOTTLE TP SCH ×2 (09:00→21:00)
--- NOTE | 2019-06-12 09:10 | NUR ---
RT NOTE: REC'D TRACH PT ON COOL AEROSOL THEN PLACED ON ROOM AIR PER MD ORDER. YENNY BAG @ BEDSIDE. SX DONE PRN. TRACH PATENT AND SECURED. TRACH CARE DONE. NO RESP DISTRESS NOTED AT THIS TIME. WILL CONTINUE TO MONITOR. Addendum: 06/12/19 at 0910 by KRYSTLE ELIZABETH RT Amended: Links added.
[2019-06-12] MEDS: BIOTIN 5000 MCG GT SCH (09:27)
[2019-06-12] MEDS: RIFAXIMIN 550 MG TABLET GT SCH ×2 (09:27→17:49)
[2019-06-12] MEDS: POTASSIUM CHLORIDE GT SCH (09:27)
[2019-06-12] MEDS: FINASTERIDE (5 MG) 5 MG TABLET GT SCH (09:27)
[2019-06-12] MEDS: CHOLECALCIFEROL (VITAMIN D 3) 400 UNIT TABLET GT SCH ×2 (09:27→20:30)
[2019-06-12] MEDS: LACTOBACILLUS RHAMNOSUS GG 1 EACH CAP.SPRINK GT SCH ×2 (09:27→17:49)
[2019-06-12] MEDS: VITAMINS A AND D 56.7 GM TUBE TP SCH ×2 (09:28→20:31)
[2019-06-12] MEDS: VITS A AND D/WHITE PET/LANOLIN 5 GM PACKET TP SCH ×4 (09:28→20:31)
[2019-06-12] MEDS: DICLOFENAC TOPICAL 100 GM GEL..GM. TP SCH ×2 (09:28→17:49)
[2019-06-12 11:21] VITALS: BP 111/79
[2019-06-12] MEDS: SUMATRIPTAN SUCCINATE 25 MG TABLET GT PRN ×2 (12:25→21:26)
[2019-06-12] MEDS: [UNRECOGNIZED DRUG - OTHER] TP SCH ×2 (12:25→20:30)
[2019-06-12 20:08] VITALS: BP 133/76
[2019-06-12] MEDS: LATANOPROST EYE DROP 0.005% 2.5 ML BOTTLE EACHEYE SCH (21:32)
[2019-06-12] MEDS: PRAVASTATIN SODIUM 20 MG TABLET GT SCH (21:32)
[2019-06-12] MEDS: BENAZEPRIL HCL 20 MG TABLET GT SCH (21:32)
[2019-06-13] MEDS: IPRATROPIUM NEB FS 0.5 MG/2.5 ML AMPUL.NEB NEB SCH ×4 (01:23→20:18)
[2019-06-13] MEDS: CHLORHEXIDINE GLUCONATE 15 ML UDC MM SCH ×2 (05:29→17:37)
[2019-06-13] MEDS: JEVITY 1.2 CAL 1,000 ML BOTTLE GT PRN (05:29)
[2019-06-13] MEDS: MODAFINIL 100 MG TABLET GT SCH (06:16)
[2019-06-13 07:39] VITALS: BP 139/86
[2019-06-13] MEDS: HYDROGEN PEROXIDE 480 ML BOTTLE TP SCH ×2 (09:00→21:07)
[2019-06-13] MEDS: VITS A AND D/WHITE PET/LANOLIN 5 GM PACKET TP SCH ×4 (09:03→20:33)
[2019-06-13] MEDS: LACTOBACILLUS RHAMNOSUS GG 1 EACH CAP.SPRINK GT SCH ×2 (09:03→17:37)
[2019-06-13] MEDS: VITAMINS A AND D 56.7 GM TUBE TP SCH ×2 (09:03→20:33)
[2019-06-13] MEDS: CHOLECALCIFEROL (VITAMIN D 3) 400 UNIT TABLET GT SCH ×2 (09:03→20:33)
[2019-06-13] MEDS: BIOTIN 5000 MCG GT SCH (09:03)
[2019-06-13] MEDS: FINASTERIDE (5 MG) 5 MG TABLET GT SCH (09:03)
[2019-06-13] MEDS: POTASSIUM CHLORIDE GT SCH (09:03)
[2019-06-13] MEDS: RIFAXIMIN 550 MG TABLET GT SCH ×2 (09:03→17:37)
[2019-06-13] MEDS: DICLOFENAC TOPICAL 100 GM GEL..GM. TP SCH ×2 (09:04→17:37)
[2019-06-13] MEDS: HYDROCODONE/APAP 7.5/325MG 1 EACH TABLET GT PRN ×3 (10:00→22:30)
--- NOTE | 2019-06-13 12:24 | NUR ---
Called [facility] this morning to follow up Provigil and spoke with Lucina. She said according to their documentation, Dr Edwards denied authorization for Provigil on 06/10/19. They called the line production cook MD on 06/11/19 and they were told that it was not his patient so he also denied authorization. Clarified with Dr Edwards and he said he did not deny authorization for Provigil. Dr Edwards signed Schedule II Controlled Substance form. Notified Dr Edwards that Provigil has not been given yet.
--- NOTE | 2019-06-13 12:32 | NUR ---
Family Satisfaction Survey: SW provided the pt.'s , Asha with Family Satisfaction Survey and explained the purpose. Asha stated that she will take survey home so that her daughters can assist her with filling it out since it is in [place]i. SW informed Asha that if they cannot assist, SW can also translate the questions for her. Asha was agreeable to Plan and took took the survey home. SW to collect it when completed.
[2019-06-13] MEDS: [UNRECOGNIZED DRUG - OTHER] TP SCH ×2 (13:00→20:33)
[2019-06-13 20:14] VITALS: BP 128/71
[2019-06-13] MEDS: LATANOPROST EYE DROP 0.005% 2.5 ML BOTTLE EACHEYE SCH (21:40)
[2019-06-13] MEDS: PRAVASTATIN SODIUM 20 MG TABLET GT SCH (21:41)
[2019-06-13] MEDS: BENAZEPRIL HCL 20 MG TABLET GT SCH (21:41)
[2019-06-13] MEDS: SUMATRIPTAN SUCCINATE 25 MG TABLET GT PRN (21:50)
[2019-06-14] MEDS: IPRATROPIUM NEB FS 0.5 MG/2.5 ML AMPUL.NEB NEB SCH ×4 (00:46→19:54)
[2019-06-14] MEDS: CHLORHEXIDINE GLUCONATE 15 ML UDC MM SCH ×2 (05:19→17:34)
[2019-06-14] MEDS: JEVITY 1.2 CAL 1,000 ML BOTTLE GT PRN (05:39)
[2019-06-14] MEDS: MODAFINIL 100 MG TABLET GT SCH (06:03)
[2019-06-14] MEDS: POTASSIUM CHLORIDE GT SCH (09:57)
[2019-06-14] MEDS: VITAMINS A AND D 56.7 GM TUBE TP SCH ×2 (09:57→20:25)
[2019-06-14] MEDS: LACTOBACILLUS RHAMNOSUS GG 1 EACH CAP.SPRINK GT SCH ×2 (09:57→17:34)
[2019-06-14] MEDS: VITS A AND D/WHITE PET/LANOLIN 5 GM PACKET TP SCH ×4 (09:57→20:25)
[2019-06-14] MEDS: BIOTIN 5000 MCG GT SCH (09:57)
[2019-06-14] MEDS: FINASTERIDE (5 MG) 5 MG TABLET GT SCH (09:57)
[2019-06-14] MEDS: CHOLECALCIFEROL (VITAMIN D 3) 400 UNIT TABLET GT SCH ×2 (09:57→20:25)
[2019-06-14] MEDS: RIFAXIMIN 550 MG TABLET GT SCH ×2 (09:57→17:34)
[2019-06-14] MEDS: DICLOFENAC TOPICAL 100 GM GEL..GM. TP SCH ×2 (09:58→17:34)
--- NOTE | 2019-06-14 10:07 | NUR ---
RT NOTE: REC'D TRACH PT ON COOL AEROSOL THEN PLACED ON ROOM AIR PER MD ORDER. YENNY BAG @ BEDSIDE. SX DONE PRN. TRACH PATENT AND SECURED. TRACH CARE DONE. NO RESP DISTRESS NOTED AT THIS TIME. WILL CONTINUE TO MONITOR. Addendum: 06/14/19 at 1007 by KRYSTLE ELIZABETH RT Amended: Links added.
[2019-06-14 11:49] VITALS: BP 117/82
[2019-06-14] MEDS: HYDROGEN PEROXIDE 480 ML BOTTLE TP SCH ×2 (12:55→21:04)
[2019-06-14] MEDS: [UNRECOGNIZED DRUG - OTHER] TP SCH ×2 (13:05→20:25)
[2019-06-14] MEDS: MAGNESIUM HYDROXIDE 30 ML UDC GT PRN (18:40)
[2019-06-14 19:51] VITALS: BP 132/83
--- NOTE | 2019-06-14 21:29 | NUR ---
RT NOTE PT RECEIVED TRACHED ON ROOM AIR. PLACED ON COOL AEROSOL @ 28%. AMBU BAG/BACK UP TRACH @ BEDSIDE. TX GIVEN, NO ADVERSE REACTIONS NOTED. SX DONE, TRACH SECURED AND PATENT. WATER LEVEL GOOD. NO SOB NOTED. WILL MONITOR. Addendum: 06/14/19 at 2130 by CHRISTIANO MCCALL RT Amended: Links added.
[2019-06-14] MEDS: LATANOPROST EYE DROP 0.005% 2.5 ML BOTTLE EACHEYE SCH (21:43)
[2019-06-14] MEDS: PRAVASTATIN SODIUM 20 MG TABLET GT SCH (21:43)
[2019-06-14] MEDS: BENAZEPRIL HCL 20 MG TABLET GT SCH (21:43)
[2019-06-15] MEDS: IPRATROPIUM NEB FS 0.5 MG/2.5 ML AMPUL.NEB NEB SCH ×4 (01:37→20:14)
[2019-06-15] MEDS: JEVITY 1.2 CAL 1,000 ML BOTTLE GT PRN (04:31)
[2019-06-15] MEDS: CHLORHEXIDINE GLUCONATE 15 ML UDC MM SCH ×2 (05:13→17:01)
[2019-06-15 08:12] VITALS: BP 117/79
[2019-06-15] MEDS: VITS A AND D/WHITE PET/LANOLIN 5 GM PACKET TP SCH ×4 (09:00→21:16)
[2019-06-15] MEDS: DICLOFENAC TOPICAL 100 GM GEL..GM. TP SCH ×2 (09:00→17:01)
[2019-06-15] MEDS: VITAMINS A AND D 56.7 GM TUBE TP SCH ×2 (09:00→21:17)
[2019-06-15] MEDS: RIFAXIMIN 550 MG TABLET GT SCH ×2 (09:01→17:01)
[2019-06-15] MEDS: POTASSIUM CHLORIDE GT SCH (09:01)
[2019-06-15] MEDS: CHOLECALCIFEROL (VITAMIN D 3) 400 UNIT TABLET GT SCH ×2 (09:01→21:16)
[2019-06-15] MEDS: LACTOBACILLUS RHAMNOSUS GG 1 EACH CAP.SPRINK GT SCH ×2 (09:01→17:01)
[2019-06-15] MEDS: FINASTERIDE (5 MG) 5 MG TABLET GT SCH (09:01)
[2019-06-15] MEDS: BIOTIN 5000 MCG GT SCH (09:01)
[2019-06-15] MEDS: HYDROGEN PEROXIDE 480 ML BOTTLE TP SCH ×2 (09:40→20:14)
[2019-06-15] MEDS: [UNRECOGNIZED DRUG - OTHER] TP SCH ×2 (13:00→21:16)
[2019-06-15] MEDS: BISACODYL SUPP (10 MG) 10 MG/SUPP.RECT SUPP.RECT RC PRN (14:18)
--- NOTE | 2019-06-15 16:15 | NUR ---
Pt's CHIEF WRITER Zara Perez reported while providing care for the pt, pt's arm accidentally landed on her eyeglasses. Pt was agitated, flailing his extremities, and care had to be provided because pt had a large bowel movement. Pt and CHIEF WRITER did not incur any injuries. Pt's stayed with pt at bedside.
--- NOTE | 2019-06-15 16:30 | NUR ---
Late entry for 06/13/19 Pt was seen pulling the curtains at bedside and trying to get out of bed, dangling his legs over the siderail. Calmly asked pt to bring his legs back into the bed, asked him if he needed to be suctioned, or if he had pain. Also checked if pt is wet with urine or BM. Pt was dry, no urine or BM noted. Pt was suctioned. Given pain medicine since pt kept nodding yes when asked if he had pain. Pt attempted several times to still get out of bed, dangling his legs over siderail. Asked MICHELINE Cifuentes to sit with pt.
--- NOTE | 2019-06-15 16:52 | NUR ---
Left message for Dr Edwards today that pt's Provigil is not covered by insurance. Pt mostly awake during the day, participates in activities provided by lookback coordinator, and ambulates with RNA.
[2019-06-15 20:19] VITALS: BP 126/77
[2019-06-15] MEDS: LATANOPROST EYE DROP 0.005% 2.5 ML BOTTLE EACHEYE SCH (21:17)
[2019-06-15] MEDS: PRAVASTATIN SODIUM 20 MG TABLET GT SCH (21:17)
[2019-06-15] MEDS: BENAZEPRIL HCL 20 MG TABLET GT SCH (21:17)
[2019-06-15] MEDS: HYDROCODONE/APAP 7.5/325MG 1 EACH TABLET GT PRN (21:18)
[2019-06-16] MEDS: IPRATROPIUM NEB FS 0.5 MG/2.5 ML AMPUL.NEB NEB SCH ×4 (01:40→19:48)
[2019-06-16] MEDS: CHLORHEXIDINE GLUCONATE 15 ML UDC MM SCH ×2 (05:31→18:00)
[2019-06-16] MEDS: JEVITY 1.2 CAL 1,000 ML BOTTLE GT PRN (05:33)
[2019-06-16] MEDS: MODAFINIL 100 MG TABLET GT SCH (07:00)
[2019-06-16 08:05] VITALS: BP 116/70
[2019-06-16] MEDS: LACTOBACILLUS RHAMNOSUS GG 1 EACH CAP.SPRINK GT SCH ×2 (08:36→16:31)
[2019-06-16] MEDS: FINASTERIDE (5 MG) 5 MG TABLET GT SCH (08:36)
[2019-06-16] MEDS: BIOTIN 5000 MCG GT SCH (08:36)
[2019-06-16] MEDS: RIFAXIMIN 550 MG TABLET GT SCH ×2 (08:36→16:31)
[2019-06-16] MEDS: CHOLECALCIFEROL (VITAMIN D 3) 400 UNIT TABLET GT SCH ×2 (08:36→21:35)
[2019-06-16] MEDS: POTASSIUM CHLORIDE GT SCH (08:36)
[2019-06-16] MEDS: DICLOFENAC TOPICAL 100 GM GEL..GM. TP SCH ×2 (09:00→16:31)
[2019-06-16] MEDS: VITAMINS A AND D 56.7 GM TUBE TP SCH ×2 (09:00→21:36)
[2019-06-16] MEDS: VITS A AND D/WHITE PET/LANOLIN 5 GM PACKET TP SCH ×4 (09:00→21:35)
[2019-06-16] MEDS: HYDROGEN PEROXIDE 480 ML BOTTLE TP SCH ×2 (09:00→21:25)
--- NOTE | 2019-06-16 10:21 | NUR ---
SKIP spoke to Asha at pt.s bedside regarding Family Satisfaction Survey. SKIP informed Asha that SKIP can verbally translate he document to assist her if needed. Asha Stated that her daughters will be able to help her fill it out an expressed gratitude for SKIP offering to help. SKIP was agreeable to plan.
--- NOTE | 2019-06-16 11:41 | NUR ---
Resident up in the wheelchair, in the activity room for activities and ambulates with RNA.
[2019-06-16] MEDS: [UNRECOGNIZED DRUG - OTHER] TP SCH ×2 (13:00→21:35)
--- NOTE | 2019-06-16 16:20 | NUR ---
Intervention for Episode of Agitation: The pt. became increasingly agitated while SW spoke with pt.'s , Asha at pt.'s bedside. Per EMR, pt. has a Hx of Dementia. The pt. was restless, anxious and grabbing his 's arm. SW called out the pt.s name and reminded him that his Asha, was sitting next to him to help ground him. However, the pt. was hallucinating as evidenced by him pointing at the corner of the ceiling and covering his eyes, sitting up in his bed. Pt.s provided a reassuring touch to pt. and held his hand. Asha stated that she is concerned that medication been receiving has been getting the pt.more agitated than normal. SW encouraged Asha to communicate concern to pt.s MD and Asha was agreeable. SW explored solutions that have worked in the past. Per Asha, covering the pt.s eyes with a face towel usually helps. Asha placed a small towel over pt.s eyes, however, pt. quickly removed it. Asha, stated that she usually stays at pt.s bedside and comforts him until he is calm and begins to rest. SW informed Asha that per EMR, the pt. has dementia which it is a progressive disease and medication might exacerbate the dementia symptoms. Asha expressed understanding. Asha stated she does not know much about Dementia and believes his agitation is solely caused by his environment and medication. SW offered to provide education on Dementia to Asha so she can recognize symptoms, triggers and be able to react accordingly to the pt.s needs. Asha was agreeable to plan. SKIP will provide education on Dementia to families on next family support group taking place 07/05/19.
[2019-06-16 20:33] VITALS: BP 131/81
[2019-06-16] MEDS: LATANOPROST EYE DROP 0.005% 2.5 ML BOTTLE EACHEYE SCH (21:36)
[2019-06-16] MEDS: BENAZEPRIL HCL 20 MG TABLET GT SCH (21:36)
[2019-06-16] MEDS: PRAVASTATIN SODIUM 20 MG TABLET GT SCH (21:36)
[2019-06-16] MEDS: HYDROCODONE/APAP 7.5/325MG 1 EACH TABLET GT PRN (21:45)
[2019-06-17] MEDS: JEVITY 1.2 CAL 1,000 ML BOTTLE GT PRN (00:50)
[2019-06-17] MEDS: IPRATROPIUM NEB FS 0.5 MG/2.5 ML AMPUL.NEB NEB SCH ×4 (01:43→19:46)
[2019-06-17] MEDS: CHLORHEXIDINE GLUCONATE 15 ML UDC MM SCH ×2 (05:09→17:32)
[2019-06-17] MEDS: MODAFINIL 100 MG TABLET GT SCH (07:00)
[2019-06-17] MEDS: HYDROGEN PEROXIDE 480 ML BOTTLE TP SCH ×2 (08:50→21:48)
[2019-06-17] MEDS: LACTOBACILLUS RHAMNOSUS GG 1 EACH CAP.SPRINK GT SCH ×2 (09:08→16:39)
[2019-06-17] MEDS: POTASSIUM CHLORIDE GT SCH (09:09)
[2019-06-17] MEDS: FINASTERIDE (5 MG) 5 MG TABLET GT SCH (09:10)
[2019-06-17] MEDS: BIOTIN 5000 MCG GT SCH (09:10)
[2019-06-17] MEDS: CHOLECALCIFEROL (VITAMIN D 3) 400 UNIT TABLET GT SCH ×2 (09:11→21:22)
[2019-06-17] MEDS: RIFAXIMIN 550 MG TABLET GT SCH ×2 (09:11→16:40)
[2019-06-17] MEDS: DICLOFENAC TOPICAL 100 GM GEL..GM. TP SCH ×2 (09:13→16:40)
[2019-06-17] MEDS: VITAMINS A AND D 56.7 GM TUBE TP SCH ×2 (09:13→21:22)
[2019-06-17] MEDS: VITS A AND D/WHITE PET/LANOLIN 5 GM PACKET TP SCH ×4 (09:13→21:22)
[2019-06-17 10:29] VITALS: BP 108/65
--- NOTE | 2019-06-17 11:43 | NUR ---
Seen and examined by Dr. Edwards, he was informed that patient's insurance does not cover Provigil and requires prior authorization. Dr. Edwards signed prior authorization request and faxed to [facility] . Informed Anne that signed PA has been faxed to PA department, she said that she will make a note of it. Resident's is aware that Provigil has not given.
[2019-06-17] MEDS: [UNRECOGNIZED DRUG - OTHER] TP SCH ×2 (13:24→21:22)
[2019-06-17] MEDS: HYDROCODONE/APAP 7.5/325MG 1 EACH TABLET GT PRN ×2 (14:03→22:27)
--- NOTE | 2019-06-17 19:57 | NUR ---
RCVD TRACH PT ON ROOM AIR, PLACED PT BACK ON COOL AEROSOL. AMBU BAG AND BACK UP TRACH @ BEDSIDE. Q6 BREATHING TX GIVEN PER MD ORDERS , NO ADVERSE REACTION NOTED. SX DONE PRN. TRACH SECURED AND PATENT. NO RESP DISTRESS NOTED AT THIS TIME. WILL CONTINUE TO MONITOR PT T/O SHIFT.
[2019-06-17 20:31] VITALS: BP 122/86
[2019-06-17] MEDS: LATANOPROST EYE DROP 0.005% 2.5 ML BOTTLE EACHEYE SCH (21:23)
[2019-06-17] MEDS: BENAZEPRIL HCL 20 MG TABLET GT SCH (21:23)
[2019-06-17] MEDS: PRAVASTATIN SODIUM 20 MG TABLET GT SCH (21:23)
[2019-06-17] MEDS: GLYCOPYRROLATE 1 MG TABLET GT PRN (21:24)
[2019-06-18] MEDS: IPRATROPIUM NEB FS 0.5 MG/2.5 ML AMPUL.NEB NEB SCH ×4 (01:12→19:30)
[2019-06-18] MEDS: CHLORHEXIDINE GLUCONATE 15 ML UDC MM SCH ×2 (05:24→17:39)
[2019-06-18] MEDS: MODAFINIL 100 MG TABLET GT SCH (06:47)
[2019-06-18 07:31] VITALS: BP 118/69
[2019-06-18] MEDS: HYDROGEN PEROXIDE 480 ML BOTTLE TP SCH ×2 (09:00→19:30)
[2019-06-18] MEDS: CHOLECALCIFEROL (VITAMIN D 3) 400 UNIT TABLET GT SCH ×2 (09:46→20:31)
[2019-06-18] MEDS: RIFAXIMIN 550 MG TABLET GT SCH ×2 (09:46→16:47)
[2019-06-18] MEDS: LACTOBACILLUS RHAMNOSUS GG 1 EACH CAP.SPRINK GT SCH ×2 (09:46→16:47)
[2019-06-18] MEDS: FINASTERIDE (5 MG) 5 MG TABLET GT SCH (09:46)
[2019-06-18] MEDS: VITAMINS A AND D 56.7 GM TUBE TP SCH ×2 (09:46→20:32)
[2019-06-18] MEDS: DICLOFENAC TOPICAL 100 GM GEL..GM. TP SCH ×2 (09:46→16:47)
[2019-06-18] MEDS: VITS A AND D/WHITE PET/LANOLIN 5 GM PACKET TP SCH ×4 (09:46→20:32)
[2019-06-18] MEDS: POTASSIUM CHLORIDE GT SCH (09:46)
[2019-06-18] MEDS: BIOTIN 5000 MCG GT SCH (09:46)
[2019-06-18] MEDS: BISACODYL SUPP (10 MG) 10 MG/SUPP.RECT SUPP.RECT RC PRN (10:40)
[2019-06-18] MEDS: [UNRECOGNIZED DRUG - OTHER] TP SCH ×2 (12:13→20:31)
--- NOTE | 2019-06-18 13:00 | NUR ---
Seen and examined by Dr. Edwards, no new order given.
[2019-06-18] MEDS: JEVITY 1.2 CAL 1,000 ML BOTTLE GT PRN (17:52)
[2019-06-18 20:24] VITALS: BP 131/71
[2019-06-18] MEDS: LATANOPROST EYE DROP 0.005% 2.5 ML BOTTLE EACHEYE SCH (20:32)
[2019-06-18] MEDS: PRAVASTATIN SODIUM 20 MG TABLET GT SCH (22:38)
[2019-06-18] MEDS: BENAZEPRIL HCL 20 MG TABLET GT SCH (22:38)
[2019-06-19] MEDS: IPRATROPIUM NEB FS 0.5 MG/2.5 ML AMPUL.NEB NEB SCH ×4 (02:04→19:23)
--- NOTE | 2019-06-19 03:38 | NUR ---
PATIENT RECEIVED WITH PORTEX 6 TRACH TUBE ON ROOM AIR THEN PLACED ON 28% AEROSOL T-COLLAR, TOLERATING WITH NO DISTRESS/SOB NOTED. SUCTIONED FOR MINIMAL, THIN, YELLOW SECRETIONS. GIVEN IN-LINE TREATMENTS WITH NO ADVERSE REACTIONS. AMBU BAG AT BEDSIDE. TRACH CARE DONE. Addendum: 06/19/19 at 0340 by MINOO CORRIGAN RT Amended: Links added.
[2019-06-19] MEDS: CHLORHEXIDINE GLUCONATE 15 ML UDC MM SCH ×2 (05:35→17:25)
[2019-06-19] MEDS: MODAFINIL 100 MG TABLET GT SCH (07:00)
[2019-06-19 07:55] VITALS: BP 117/58
[2019-06-19] MEDS: POTASSIUM CHLORIDE GT SCH (09:23)
[2019-06-19] MEDS: LACTOBACILLUS RHAMNOSUS GG 1 EACH CAP.SPRINK GT SCH ×2 (09:23→16:14)
[2019-06-19] MEDS: FINASTERIDE (5 MG) 5 MG TABLET GT SCH (09:24)
[2019-06-19] MEDS: DICLOFENAC TOPICAL 100 GM GEL..GM. TP SCH ×2 (09:24→16:14)
[2019-06-19] MEDS: RIFAXIMIN 550 MG TABLET GT SCH ×2 (09:24→16:14)
[2019-06-19] MEDS: HYDROGEN PEROXIDE 480 ML BOTTLE TP SCH ×2 (09:24→21:44)
[2019-06-19] MEDS: VITS A AND D/WHITE PET/LANOLIN 5 GM PACKET TP SCH ×4 (09:24→20:53)
[2019-06-19] MEDS: BIOTIN 5000 MCG GT SCH (09:24)
[2019-06-19] MEDS: VITAMINS A AND D 56.7 GM TUBE TP SCH ×2 (09:24→20:53)
[2019-06-19] MEDS: CHOLECALCIFEROL (VITAMIN D 3) 400 UNIT TABLET GT SCH ×2 (09:24→20:52)
[2019-06-19] MEDS: [UNRECOGNIZED DRUG - OTHER] TP SCH ×2 (13:00→20:52)
--- NOTE | 2019-06-19 14:08 | NUR ---
Informed Dr Edwards that Provigil is still not being given. [employer] is applying for prior authorization. According to Lana of [facility], approval is still pending and she cannot give a date on when it will be approved. Also informed Dr Edwards that pt is mostly awake throughout the day and has episodes of agitation. Dr Edwards said he wants to try Provigil for the pt. Addendum: 06/19/19 at 1414 by ROSEANNA HARRISON RN Pt ambulated with RNA today.
[2019-06-19] MEDS: JEVITY 1.2 CAL 1,000 ML BOTTLE GT PRN (16:13)
[2019-06-19 20:32] VITALS: BP 125/73
[2019-06-19] MEDS: PRAVASTATIN SODIUM 20 MG TABLET GT SCH (21:19)
[2019-06-19] MEDS: LATANOPROST EYE DROP 0.005% 2.5 ML BOTTLE EACHEYE SCH (21:19)
[2019-06-19] MEDS: BENAZEPRIL HCL 20 MG TABLET GT SCH (21:19)
[2019-06-20] MEDS: IPRATROPIUM NEB FS 0.5 MG/2.5 ML AMPUL.NEB NEB SCH ×4 (01:46→20:06)
[2019-06-20] MEDS: CHLORHEXIDINE GLUCONATE 15 ML UDC MM SCH ×2 (05:35→18:05)
[2019-06-20 07:28] VITALS: BP 113/81
[2019-06-20] MEDS: HYDROGEN PEROXIDE 480 ML BOTTLE TP SCH ×2 (09:00→21:00)
[2019-06-20] MEDS: CHOLECALCIFEROL (VITAMIN D 3) 400 UNIT TABLET GT SCH ×2 (09:48→21:47)
[2019-06-20] MEDS: POTASSIUM CHLORIDE GT SCH (09:48)
[2019-06-20] MEDS: RIFAXIMIN 550 MG TABLET GT SCH ×2 (09:48→16:56)
[2019-06-20] MEDS: DICLOFENAC TOPICAL 100 GM GEL..GM. TP SCH ×2 (09:48→16:56)
[2019-06-20] MEDS: VITAMINS A AND D 56.7 GM TUBE TP SCH ×2 (09:48→21:47)
[2019-06-20] MEDS: FINASTERIDE (5 MG) 5 MG TABLET GT SCH (09:48)
[2019-06-20] MEDS: VITS A AND D/WHITE PET/LANOLIN 5 GM PACKET TP SCH ×4 (09:48→21:47)
[2019-06-20] MEDS: BIOTIN 5000 MCG GT SCH (09:48)
[2019-06-20] MEDS: LACTOBACILLUS RHAMNOSUS GG 1 EACH CAP.SPRINK GT SCH ×2 (09:48→16:56)
[2019-06-20] MEDS: JEVITY 1.2 CAL 1,000 ML BOTTLE GT PRN (12:39)
[2019-06-20] MEDS: [UNRECOGNIZED DRUG - OTHER] TP SCH ×2 (13:49→21:47)
[2019-06-20 20:20] VITALS: BP 145/85
[2019-06-20] MEDS: LATANOPROST EYE DROP 0.005% 2.5 ML BOTTLE EACHEYE SCH (21:48)
[2019-06-20] MEDS: PRAVASTATIN SODIUM 20 MG TABLET GT SCH (21:48)
[2019-06-20] MEDS: BENAZEPRIL HCL 20 MG TABLET GT SCH (21:48)
[2019-06-21] MEDS: IPRATROPIUM NEB FS 0.5 MG/2.5 ML AMPUL.NEB NEB SCH ×4 (01:10→19:35)
[2019-06-21] MEDS: HYDROCODONE/APAP 7.5/325MG 1 EACH TABLET GT PRN (04:11)
[2019-06-21] MEDS: CHLORHEXIDINE GLUCONATE 15 ML UDC MM SCH ×2 (05:28→17:45)
[2019-06-21 07:45] VITALS: BP 129/84
[2019-06-21] MEDS: HYDROGEN PEROXIDE 480 ML BOTTLE TP SCH ×2 (09:21→20:08)
[2019-06-21] MEDS: VITS A AND D/WHITE PET/LANOLIN 5 GM PACKET TP SCH ×4 (09:57→21:33)
[2019-06-21] MEDS: POTASSIUM CHLORIDE GT SCH (09:57)
[2019-06-21] MEDS: FINASTERIDE (5 MG) 5 MG TABLET GT SCH (09:57)
[2019-06-21] MEDS: CHOLECALCIFEROL (VITAMIN D 3) 400 UNIT TABLET GT SCH ×2 (09:57→21:34)
[2019-06-21] MEDS: LACTOBACILLUS RHAMNOSUS GG 1 EACH CAP.SPRINK GT SCH ×2 (09:57→16:33)
[2019-06-21] MEDS: RIFAXIMIN 550 MG TABLET GT SCH ×2 (09:57→16:33)
[2019-06-21] MEDS: BIOTIN 5000 MCG GT SCH (09:57)
[2019-06-21] MEDS: DICLOFENAC TOPICAL 100 GM GEL..GM. TP SCH ×2 (09:58→16:33)
[2019-06-21] MEDS: VITAMINS A AND D 56.7 GM TUBE TP SCH ×2 (09:58→21:33)
[2019-06-21] MEDS: [UNRECOGNIZED DRUG - OTHER] TP SCH ×2 (12:50→21:32)
--- NOTE | 2019-06-21 15:49 | NUR ---
DME REFERRAL:SKIP contacted [facility] [[address] [place] [address]; [phone]] and spoke to Kimberley to verify if they supply [employer]. Per Kimberley, they do not. SKIP contacted [facility] [[address] [place] [address] ] to verify if they supply [employer]inge [employer]. Call went to [email or web address] and SKIP left detailed message with call back number.
[2019-06-21] MEDS: JEVITY 1.2 CAL 1,000 ML BOTTLE GT PRN (16:33)
[2019-06-21 20:03] VITALS: BP 134/85
--- NOTE | 2019-06-21 20:18 | NUR ---
PT RCVD TRACH'D ON COOL AEROSOL WITH CHARTED SETTINGS. PT FRANCIE TX WELL. SX DONE. PT TRACH IS PATENT AND SECURE. AMBU BAG AT BEDSIDE. NO SOB NOTED. Addendum: 06/21/19 at 2018 by LISETH MASTERS Amended: Links added. Addendum: 06/21/19 at 2020 by LISETH MOCK RT CORRECT NOTE PT RCVD TRACH'D ON ROOM AIR. PLACED PT ON COOL AEROSOL WITH CHARTED SETTINGS. PT FRANCIE TX WELL. SX DONE. PT TRACH IS PATENT AND SECURE. AMBU BAG AT BEDSIDE. NO SOB NOTED.
[2019-06-21] MEDS: LATANOPROST EYE DROP 0.005% 2.5 ML BOTTLE EACHEYE SCH (21:33)
[2019-06-21] MEDS: BENAZEPRIL HCL 20 MG TABLET GT SCH (21:33)
[2019-06-21] MEDS: PRAVASTATIN SODIUM 20 MG TABLET GT SCH (21:33)
[2019-06-22] MEDS: IPRATROPIUM NEB FS 0.5 MG/2.5 ML AMPUL.NEB NEB SCH ×4 (00:50→20:01)
[2019-06-22] MEDS: CHLORHEXIDINE GLUCONATE 15 ML UDC MM SCH ×2 (05:35→18:13)
[2019-06-22 07:55] VITALS: BP 132/69
[2019-06-22] MEDS: VITS A AND D/WHITE PET/LANOLIN 5 GM PACKET TP SCH ×4 (08:49→21:12)
[2019-06-22] MEDS: BIOTIN 5000 MCG GT SCH (08:49)
[2019-06-22] MEDS: DICLOFENAC TOPICAL 100 GM GEL..GM. TP SCH ×2 (08:49→16:52)
[2019-06-22] MEDS: POTASSIUM CHLORIDE GT SCH (08:49)
[2019-06-22] MEDS: RIFAXIMIN 550 MG TABLET GT SCH ×2 (08:49→16:52)
[2019-06-22] MEDS: VITAMINS A AND D 56.7 GM TUBE TP SCH ×2 (08:49→21:13)
[2019-06-22] MEDS: CHOLECALCIFEROL (VITAMIN D 3) 400 UNIT TABLET GT SCH ×2 (08:49→21:12)
[2019-06-22] MEDS: FINASTERIDE (5 MG) 5 MG TABLET GT SCH (08:49)
[2019-06-22] MEDS: LACTOBACILLUS RHAMNOSUS GG 1 EACH CAP.SPRINK GT SCH ×2 (08:49→16:52)
[2019-06-22] MEDS: HYDROGEN PEROXIDE 480 ML BOTTLE TP SCH ×2 (09:49→20:31)
--- NOTE | 2019-06-22 09:49 | NUR ---
RT NOTE: REC'D TRACH PT ON COOL AEROSOL THEN PLACED ON ROOM AIR PER MD ORDER. YENNY BAG @ BEDSIDE. SX DONE PRN. TRACH PATENT AND SECURED. TRACH CARE DONE. NO RESP DISTRESS NOTED AT THIS TIME. WILL CONTINUE TO MONITOR. Addendum: 06/22/19 at 0950 by KRYSTLE ELIZABETH RT Amended: Links added.
[2019-06-22 12:02] VITALS: BP 132/69
[2019-06-22] MEDS: [UNRECOGNIZED DRUG - OTHER] TP SCH ×3 (13:00→21:12)
[2019-06-22] MEDS: JEVITY 1.2 CAL 1,000 ML BOTTLE GT PRN (14:06)
--- NOTE | 2019-06-22 16:03 | NUR ---
[employer] REFERRAL: SW contacted [facility] [[address] [place] [place] [address] ] to verify if they supply [employer]inge [employer]. Per Information Developer, they do not make them and did not know of another company that might. Family informed.
[2019-06-22] MEDS: HYDROCODONE/APAP 7.5/325MG 1 EACH TABLET GT PRN ×2 (16:53→23:00)
[2019-06-22] MEDS: GLYCOPYRROLATE 1 MG TABLET GT PRN (16:53)
[2019-06-22 19:47] VITALS: BP 142/85
[2019-06-22] MEDS: BENAZEPRIL HCL 20 MG TABLET GT SCH (21:13)
[2019-06-22] MEDS: LATANOPROST EYE DROP 0.005% 2.5 ML BOTTLE EACHEYE SCH (21:13)
[2019-06-22] MEDS: PRAVASTATIN SODIUM 20 MG TABLET GT SCH (21:13)
[2019-06-23] MEDS: IPRATROPIUM NEB FS 0.5 MG/2.5 ML AMPUL.NEB NEB SCH ×4 (01:17→20:04)
[2019-06-23] MEDS: JEVITY 1.2 CAL 1,000 ML BOTTLE GT PRN (04:47)
[2019-06-23] MEDS: HYDROCODONE/APAP 7.5/325MG 1 EACH TABLET GT PRN ×2 (05:13→18:24)
[2019-06-23] MEDS: CHLORHEXIDINE GLUCONATE 15 ML UDC MM SCH ×2 (05:41→18:09)
[2019-06-23] MEDS: BISACODYL SUPP (10 MG) 10 MG/SUPP.RECT SUPP.RECT RC PRN (06:31)
[2019-06-23] MEDS: HYDROGEN PEROXIDE 480 ML BOTTLE TP SCH ×2 (07:24→20:45)
[2019-06-23 07:58] VITALS: BP 129/74
[2019-06-23] MEDS: POTASSIUM CHLORIDE GT SCH (08:56)
[2019-06-23] MEDS: BIOTIN 5000 MCG GT SCH (08:56)
[2019-06-23] MEDS: RIFAXIMIN 550 MG TABLET GT SCH ×2 (08:56→16:28)
[2019-06-23] MEDS: FINASTERIDE (5 MG) 5 MG TABLET GT SCH (08:56)
[2019-06-23] MEDS: CHOLECALCIFEROL (VITAMIN D 3) 400 UNIT TABLET GT SCH ×2 (08:56→21:02)
[2019-06-23] MEDS: LACTOBACILLUS RHAMNOSUS GG 1 EACH CAP.SPRINK GT SCH ×2 (08:56→16:28)
[2019-06-23] MEDS: VITS A AND D/WHITE PET/LANOLIN 5 GM PACKET TP SCH ×4 (08:56→21:02)
[2019-06-23] MEDS: VITAMINS A AND D 56.7 GM TUBE TP SCH ×2 (08:56→21:02)
[2019-06-23] MEDS: DICLOFENAC TOPICAL 100 GM GEL..GM. TP SCH ×2 (08:56→16:28)
[2019-06-23] MEDS: [UNRECOGNIZED DRUG - OTHER] TP SCH ×2 (12:28→21:02)
--- NOTE | 2019-06-23 15:14 | NUR ---
INTERDISCIPLINARY PLAN OF CARE CONFERENCE took place today. The patients responsible green party/ Asha Lopez [phone] was not able to attend or participate via phone conference. Charge nurse discussed Provigil 100 mg via GT daily for narcolepsy to start when available. Dr. Mejia and Interdisciplinary team discussed the plan of care in detail. Current orders as well as treatments and medications were reviewed. Please see other disciplines IDT notes for further details.
--- NOTE | 2019-06-23 15:21 | NUR ---
RT NOTE: RECEIVED PT ON COOL AEROSOL. NO RESPIRATORY DISTRESS NOTED. TRACH CHECKED SECURE AND PATENT. SXD AND LAVAGED Q ROUND AND NEEDED. TXS GIVEN ORDERED WITH NO ADVERSE REACTIONS NOTED. TRACH CARE DONE. SPARE TRACH AND AMBU BAG @ BEDSIDE.
[2019-06-23] MEDS: MAGNESIUM HYDROXIDE 30 ML UDC GT PRN ×2 (19:01)
[2019-06-23 20:01] VITALS: BP 123/73
--- NOTE | 2019-06-23 20:20 | NUR ---
RT PT RECEIVED TRACHED ON COOL AEROSOL WITH CURRENT SETTINGS. PT TOLERATED TREATMENT WELL. SUCTION PERFORMED. PT IN NO DISTRESS. TRACH IS PATENT AND SECURE. AMBU BAG AT HEAD OF BED. WILL CONTINUE TO MONITOR. Addendum: 06/23/19 at 2107 by SEAN RAYA RT Amended: Links added.
[2019-06-23] MEDS: LATANOPROST EYE DROP 0.005% 2.5 ML BOTTLE EACHEYE SCH (21:03)
[2019-06-23] MEDS: BENAZEPRIL HCL 20 MG TABLET GT SCH (21:03)
[2019-06-23] MEDS: PRAVASTATIN SODIUM 20 MG TABLET GT SCH (21:03)
[2019-06-24] MEDS: IPRATROPIUM NEB FS 0.5 MG/2.5 ML AMPUL.NEB NEB SCH ×4 (01:28→19:43)
[2019-06-24] MEDS: JEVITY 1.2 CAL 1,000 ML BOTTLE GT PRN (03:30)
[2019-06-24] MEDS: CHLORHEXIDINE GLUCONATE 15 ML UDC MM SCH ×2 (05:46→17:11)
[2019-06-24] MEDS: BISACODYL SUPP (10 MG) 10 MG/SUPP.RECT SUPP.RECT RC PRN (07:18)
[2019-06-24 08:11] VITALS: BP 147/69
[2019-06-24] MEDS: POTASSIUM CHLORIDE GT SCH (08:47)
[2019-06-24] MEDS: FINASTERIDE (5 MG) 5 MG TABLET GT SCH (08:47)
[2019-06-24] MEDS: RIFAXIMIN 550 MG TABLET GT SCH ×2 (08:47→17:11)
[2019-06-24] MEDS: MODAFINIL 100 MG TABLET GT SCH (08:47)
[2019-06-24] MEDS: CHOLECALCIFEROL (VITAMIN D 3) 400 UNIT TABLET GT SCH ×2 (08:47→21:01)
[2019-06-24] MEDS: LACTOBACILLUS RHAMNOSUS GG 1 EACH CAP.SPRINK GT SCH ×2 (08:47→17:11)
[2019-06-24] MEDS: BIOTIN 5000 MCG GT SCH (08:47)
[2019-06-24] MEDS: VITS A AND D/WHITE PET/LANOLIN 5 GM PACKET TP SCH ×4 (08:47→21:01)
[2019-06-24] MEDS: VITAMINS A AND D 56.7 GM TUBE TP SCH ×2 (08:47→21:01)
[2019-06-24] MEDS: DICLOFENAC TOPICAL 100 GM GEL..GM. TP SCH ×2 (08:47→17:11)
[2019-06-24] MEDS: HYDROGEN PEROXIDE 480 ML BOTTLE TP SCH ×2 (09:00→19:43)
[2019-06-24] MEDS: [UNRECOGNIZED DRUG - OTHER] TP SCH ×2 (13:00→21:01)
[2019-06-24] MEDS: LATANOPROST EYE DROP 0.005% 2.5 ML BOTTLE EACHEYE SCH (21:01)
[2019-06-24] MEDS: BENAZEPRIL HCL 20 MG TABLET GT SCH (21:02)
[2019-06-24] MEDS: PRAVASTATIN SODIUM 20 MG TABLET GT SCH (21:02)
[2019-06-24 21:07] VITALS: BP 133/78
[2019-06-25] MEDS: IPRATROPIUM NEB FS 0.5 MG/2.5 ML AMPUL.NEB NEB SCH ×4 (00:56→19:59)
[2019-06-25] MEDS: CHLORHEXIDINE GLUCONATE 15 ML UDC MM SCH ×2 (05:33→17:54)
[2019-06-25] MEDS: JEVITY 1.2 CAL 1,000 ML BOTTLE GT PRN (05:33)
[2019-06-25 07:57] VITALS: BP 131/74
[2019-06-25] MEDS: BIOTIN 5000 MCG GT SCH (08:27)
[2019-06-25] MEDS: POTASSIUM CHLORIDE GT SCH (08:27)
[2019-06-25] MEDS: RIFAXIMIN 550 MG TABLET GT SCH ×2 (08:27→17:54)
[2019-06-25] MEDS: CHOLECALCIFEROL (VITAMIN D 3) 400 UNIT TABLET GT SCH ×2 (08:27→21:44)
[2019-06-25] MEDS: VITS A AND D/WHITE PET/LANOLIN 5 GM PACKET TP SCH ×4 (08:27→21:45)
[2019-06-25] MEDS: FINASTERIDE (5 MG) 5 MG TABLET GT SCH (08:27)
[2019-06-25] MEDS: LACTOBACILLUS RHAMNOSUS GG 1 EACH CAP.SPRINK GT SCH ×2 (08:27→17:54)
[2019-06-25] MEDS: DICLOFENAC TOPICAL 100 GM GEL..GM. TP SCH ×2 (08:28→17:54)
[2019-06-25] MEDS: VITAMINS A AND D 56.7 GM TUBE TP SCH ×2 (08:28→21:45)
[2019-06-25] MEDS: MODAFINIL 100 MG TABLET GT SCH (08:30)
[2019-06-25] MEDS: HYDROGEN PEROXIDE 480 ML BOTTLE TP SCH ×2 (09:00→20:52)
[2019-06-25] MEDS: [UNRECOGNIZED DRUG - OTHER] TP SCH ×2 (12:17→21:44)
[2019-06-25 19:48] VITALS: BP 125/80
[2019-06-25] MEDS: HYDROCODONE/APAP 7.5/325MG 1 EACH TABLET GT PRN (20:30)
[2019-06-25] MEDS: PRAVASTATIN SODIUM 20 MG TABLET GT SCH (21:45)
[2019-06-25] MEDS: LATANOPROST EYE DROP 0.005% 2.5 ML BOTTLE EACHEYE SCH (21:45)
[2019-06-25] MEDS: BENAZEPRIL HCL 20 MG TABLET GT SCH (21:45)
[2019-06-26] MEDS: IPRATROPIUM NEB FS 0.5 MG/2.5 ML AMPUL.NEB NEB SCH ×4 (01:35→19:49)
[2019-06-26] MEDS: CHLORHEXIDINE GLUCONATE 15 ML UDC MM SCH ×2 (05:22→17:00)
[2019-06-26] MEDS: HYDROCODONE/APAP 7.5/325MG 1 EACH TABLET GT PRN (06:46)
[2019-06-26 07:43] VITALS: BP 149/79
[2019-06-26] MEDS: MODAFINIL 100 MG TABLET GT SCH (08:45)
[2019-06-26] MEDS: BIOTIN 5000 MCG GT SCH (08:45)
[2019-06-26] MEDS: LACTOBACILLUS RHAMNOSUS GG 1 EACH CAP.SPRINK GT SCH ×2 (08:45→17:00)
[2019-06-26] MEDS: POTASSIUM CHLORIDE GT SCH (08:45)
[2019-06-26] MEDS: RIFAXIMIN 550 MG TABLET GT SCH ×2 (08:45→17:00)
[2019-06-26] MEDS: CHOLECALCIFEROL (VITAMIN D 3) 400 UNIT TABLET GT SCH ×2 (08:45→21:31)
[2019-06-26] MEDS: VITS A AND D/WHITE PET/LANOLIN 5 GM PACKET TP SCH ×4 (08:45→21:32)
[2019-06-26] MEDS: FINASTERIDE (5 MG) 5 MG TABLET GT SCH (08:45)
[2019-06-26] MEDS: DICLOFENAC TOPICAL 100 GM GEL..GM. TP SCH ×2 (08:46→17:00)
[2019-06-26] MEDS: VITAMINS A AND D 56.7 GM TUBE TP SCH ×2 (08:46→21:32)
--- NOTE | 2019-06-26 09:12 | NUR ---
RT NOTE: REC'D TRACH PT ON COOL AEROSOL THEN PLACED ON ROOM AIR PER MD ORDER. YENNY BAG @ BEDSIDE. SX DONE PRN. TRACH PATENT AND SECURED. TRACH CARE DONE. NO RESP DISTRESS NOTED AT THIS TIME. WILL CONTINUE TO MONITOR. Addendum: 06/26/19 at 0912 by KRYSTLE ELIZABETH RT Amended: Links added.
[2019-06-26] MEDS: HYDROGEN PEROXIDE 480 ML BOTTLE TP SCH ×2 (09:18→20:20)
[2019-06-26] MEDS: [UNRECOGNIZED DRUG - OTHER] TP SCH ×2 (13:08→21:31)
[2019-06-26 20:17] VITALS: BP 132/74
[2019-06-26] MEDS: BENAZEPRIL HCL 20 MG TABLET GT SCH (21:32)
[2019-06-26] MEDS: PRAVASTATIN SODIUM 20 MG TABLET GT SCH (21:32)
[2019-06-26] MEDS: LATANOPROST EYE DROP 0.005% 2.5 ML BOTTLE EACHEYE SCH (21:32)
--- NOTE | 2019-06-26 23:34 | NUR ---
PT RCVD TRACH'D ON COOL AEROSOL WITH CHARTED SETTINGS. PT FRANCIE TX WELL. SX DONE. PT TRACH IS PATENT AND SECURE. AMBU BAG AT BEDSIDE. NO SOB NOTED. Addendum: 06/26/19 at 2335 by LISETH MOCK RT Amended: Links added.
[2019-06-27] MEDS: IPRATROPIUM NEB FS 0.5 MG/2.5 ML AMPUL.NEB NEB SCH ×4 (01:27→19:30)
[2019-06-27] MEDS: CHLORHEXIDINE GLUCONATE 15 ML UDC MM SCH ×2 (05:42→17:51)
[2019-06-27 07:59] VITALS: BP 121/72
[2019-06-27] MEDS: MODAFINIL 100 MG TABLET GT SCH (08:06)
[2019-06-27] MEDS: FINASTERIDE (5 MG) 5 MG TABLET GT SCH (08:06)
[2019-06-27] MEDS: CHOLECALCIFEROL (VITAMIN D 3) 400 UNIT TABLET GT SCH ×2 (08:06→21:08)
[2019-06-27] MEDS: RIFAXIMIN 550 MG TABLET GT SCH ×2 (08:06→17:50)
[2019-06-27] MEDS: POTASSIUM CHLORIDE GT SCH (08:06)
[2019-06-27] MEDS: BIOTIN 5000 MCG GT SCH (08:06)
[2019-06-27] MEDS: LACTOBACILLUS RHAMNOSUS GG 1 EACH CAP.SPRINK GT SCH ×2 (08:06→17:50)
[2019-06-27] MEDS: VITAMINS A AND D 56.7 GM TUBE TP SCH ×2 (09:00→21:09)
[2019-06-27] MEDS: VITS A AND D/WHITE PET/LANOLIN 5 GM PACKET TP SCH ×4 (09:00→21:09)
[2019-06-27] MEDS: DICLOFENAC TOPICAL 100 GM GEL..GM. TP SCH ×2 (09:00→17:51)
[2019-06-27] MEDS: HYDROGEN PEROXIDE 480 ML BOTTLE TP SCH ×2 (09:29→23:35)
[2019-06-27] MEDS: [UNRECOGNIZED DRUG - OTHER] TP SCH ×2 (12:15→21:09)
[2019-06-27] MEDS: SUMATRIPTAN SUCCINATE 25 MG TABLET GT PRN (15:35)
--- NOTE | 2019-06-27 15:39 | NUR ---
Per the patient's , Asha's [phone] request, SKIP contacted Dr. Walter's dental office and spoke with Mystery to ask when pt. would be eligible for dental exam and cleaning. Per Mystery, the pt. had their last dental cleaning in September 2018 and is eligible to have exam and cleaning as of August 2019. Per Mystery, if family would like to pay out of pocket to have exam and cleaning this year it would cost $125 for exama nd $150 for cleaning. SKIP informed Asha and she was agreeable to waiting until August to schedule the pt.'s annual dental exam and cleaning. Noted. SW to follow up in 08/2019.
[2019-06-27] MEDS: BENAZEPRIL HCL 20 MG TABLET GT SCH (21:09)
[2019-06-27] MEDS: PRAVASTATIN SODIUM 20 MG TABLET GT SCH (21:09)
[2019-06-27] MEDS: LATANOPROST EYE DROP 0.005% 2.5 ML BOTTLE EACHEYE SCH (21:09)
[2019-06-27 21:17] VITALS: BP 146/97
[2019-06-27] MEDS: GLYCOPYRROLATE 1 MG TABLET GT PRN (22:18)
[2019-06-28] MEDS: IPRATROPIUM NEB FS 0.5 MG/2.5 ML AMPUL.NEB NEB SCH ×4 (01:04→19:47)
--- NOTE | 2019-06-28 01:47 | NUR ---
PT RCVD TRACH'D ON COOL AEROSOL WITH CHARTED SETTINGS. PT FRANCIE TX WELL. SX DONE. PT TRACH IS PATENT AND SECURE. AMBU BAG AT BEDSIDE. NO SOB NOTED. Addendum: 06/28/19 at 0147 by LISETH MOCK RT Amended: Links added.
[2019-06-28] MEDS: CHLORHEXIDINE GLUCONATE 15 ML UDC MM SCH ×2 (05:48→17:37)
[2019-06-28 07:49] VITALS: BP 147/87
[2019-06-28] MEDS: CHOLECALCIFEROL (VITAMIN D 3) 400 UNIT TABLET GT SCH ×2 (08:07→21:17)
[2019-06-28] MEDS: POTASSIUM CHLORIDE GT SCH (08:07)
[2019-06-28] MEDS: VITS A AND D/WHITE PET/LANOLIN 5 GM PACKET TP SCH ×4 (08:07→21:17)
[2019-06-28] MEDS: MODAFINIL 100 MG TABLET GT SCH (08:07)
[2019-06-28] MEDS: VITAMINS A AND D 56.7 GM TUBE TP SCH ×2 (08:07→21:17)
[2019-06-28] MEDS: LACTOBACILLUS RHAMNOSUS GG 1 EACH CAP.SPRINK GT SCH ×2 (08:07→17:37)
[2019-06-28] MEDS: BIOTIN 5000 MCG GT SCH (08:07)
[2019-06-28] MEDS: FINASTERIDE (5 MG) 5 MG TABLET GT SCH (08:07)
[2019-06-28] MEDS: RIFAXIMIN 550 MG TABLET GT SCH ×2 (08:07→17:37)
[2019-06-28] MEDS: DICLOFENAC TOPICAL 100 GM GEL..GM. TP SCH ×2 (08:08→17:37)
[2019-06-28] MEDS: HYDROGEN PEROXIDE 480 ML BOTTLE TP SCH ×2 (09:00→19:48)
--- NOTE | 2019-06-28 12:50 | NUR ---
Seen and examined by Denise Pichardo, PALLIATIVE SENIOR NP, NNO given.
[2019-06-28] MEDS: [UNRECOGNIZED DRUG - OTHER] TP SCH ×2 (13:38→21:17)
[2019-06-28] MEDS: HYDROCODONE/APAP 7.5/325MG 1 EACH TABLET GT PRN ×2 (15:02→21:20)
[2019-06-28 20:00] VITALS: BP 145/94
--- NOTE | 2019-06-28 21:15 | NUR ---
PATIENT SELF-DECANNULATED AND RT RE-INSERTED PORTEX #6 UNCUFFED. RN ADMINISTERED MEDICATION TO CALM THE PATIENT. PATIENT ASSESSED AND NO DISTRESS NOTED AFTER TRACH TUBE IS RE-INSERTED. Addendum: 06/28/19 at 2118 by MINOO CORRIGAN RT Amended: Links added.
[2019-06-28] MEDS: LATANOPROST EYE DROP 0.005% 2.5 ML BOTTLE EACHEYE SCH (21:17)
[2019-06-28] MEDS: BENAZEPRIL HCL 20 MG TABLET GT SCH (21:17)
[2019-06-28] MEDS: PRAVASTATIN SODIUM 20 MG TABLET GT SCH (21:17)
[2019-06-29] MEDS: IPRATROPIUM NEB FS 0.5 MG/2.5 ML AMPUL.NEB NEB SCH ×4 (01:44→20:09)
[2019-06-29] MEDS: JEVITY 1.2 CAL 1,000 ML BOTTLE GT PRN ×2 (02:30→22:00)
--- NOTE | 2019-06-29 05:24 | NUR ---
PATIENT RECEIVED ON TRACH ROOM AIR THEN PLACED BACK ON 28% AEROSOL T-COLLAR. SUCTIONED FOR MINIMAL, THIN, YELLOW-CREAM SECRETIONS. GIVEN IN-LINE TREATMENTS WITH NO ADVERSE REACTIONS. AMBU BAG AT BEDSIDE. Addendum: 06/29/19 at 0525 by MINOO CORRIGAN RT Amended: Links added.
[2019-06-29] MEDS: CHLORHEXIDINE GLUCONATE 15 ML UDC MM SCH ×2 (05:51→18:01)
[2019-06-29] MEDS: MAGNESIUM HYDROXIDE 30 ML UDC GT PRN (07:00)
[2019-06-29 08:05] VITALS: BP 157/92
[2019-06-29] MEDS: LACTOBACILLUS RHAMNOSUS GG 1 EACH CAP.SPRINK GT SCH ×2 (08:54→16:44)
[2019-06-29] MEDS: MODAFINIL 100 MG TABLET GT SCH (08:54)
[2019-06-29] MEDS: VITS A AND D/WHITE PET/LANOLIN 5 GM PACKET TP SCH ×4 (08:54→21:09)
[2019-06-29] MEDS: VITAMINS A AND D 56.7 GM TUBE TP SCH ×2 (08:54→21:10)
[2019-06-29] MEDS: FINASTERIDE (5 MG) 5 MG TABLET GT SCH (08:54)
[2019-06-29] MEDS: CHOLECALCIFEROL (VITAMIN D 3) 400 UNIT TABLET GT SCH ×2 (08:54→21:09)
[2019-06-29] MEDS: POTASSIUM CHLORIDE GT SCH (08:54)
[2019-06-29] MEDS: BIOTIN 5000 MCG GT SCH (08:54)
[2019-06-29] MEDS: DICLOFENAC TOPICAL 100 GM GEL..GM. TP SCH ×2 (08:54→16:44)
[2019-06-29] MEDS: RIFAXIMIN 550 MG TABLET GT SCH ×2 (08:54→16:44)
[2019-06-29] MEDS: HYDROGEN PEROXIDE 480 ML BOTTLE TP SCH ×2 (09:00→21:00)
[2019-06-29] MEDS: [UNRECOGNIZED DRUG - OTHER] TP SCH ×2 (13:10→21:09)
[2019-06-29] MEDS: GLYCOPYRROLATE 1 MG TABLET GT PRN (19:11)
--- NOTE | 2019-06-29 20:20 | NUR ---
RCVD PT ON COOL AEROSOL AT THIS TIME. AMBU BAG AND BACK UP TRACH @ BEDSIDE. Q6 BREATHING TX GIVEN PER MD ORDERS , NO ADVERSE REACTION NOTED. SX DONE PRN. TRACH SECURED AND PATENT. NO RESP DISTRESS NOTED AT THIS TIME. WILL CONTINUE TO MONITOR PT T/O SHIFT.
[2019-06-29 20:22] VITALS: BP 125/77
[2019-06-29] MEDS: PRAVASTATIN SODIUM 20 MG TABLET GT SCH (21:10)
[2019-06-29] MEDS: BENAZEPRIL HCL 20 MG TABLET GT SCH (21:10)
[2019-06-29] MEDS: LATANOPROST EYE DROP 0.005% 2.5 ML BOTTLE EACHEYE SCH (21:10)
[2019-06-30] MEDS: HYDROCODONE/APAP 7.5/325MG 1 EACH TABLET GT PRN ×2 (00:01→07:48)
[2019-06-30] MEDS: IPRATROPIUM NEB FS 0.5 MG/2.5 ML AMPUL.NEB NEB SCH ×4 (01:38→19:46)
[2019-06-30] MEDS: CHLORHEXIDINE GLUCONATE 15 ML UDC MM SCH ×2 (06:15→18:08)
[2019-06-30 07:23] VITALS: BP 119/75
[2019-06-30] MEDS: VITS A AND D/WHITE PET/LANOLIN 5 GM PACKET TP SCH ×4 (09:05→21:12)
[2019-06-30] MEDS: VITAMINS A AND D 56.7 GM TUBE TP SCH ×2 (09:05→21:13)
[2019-06-30] MEDS: MODAFINIL 100 MG TABLET GT SCH (09:05)
[2019-06-30] MEDS: POTASSIUM CHLORIDE GT SCH (09:05)
[2019-06-30] MEDS: FINASTERIDE (5 MG) 5 MG TABLET GT SCH (09:05)
[2019-06-30] MEDS: DICLOFENAC TOPICAL 100 GM GEL..GM. TP SCH ×2 (09:05→16:32)
[2019-06-30] MEDS: LACTOBACILLUS RHAMNOSUS GG 1 EACH CAP.SPRINK GT SCH ×2 (09:05→16:32)
[2019-06-30] MEDS: RIFAXIMIN 550 MG TABLET GT SCH ×2 (09:05→16:32)
[2019-06-30] MEDS: BIOTIN 5000 MCG GT SCH (09:05)
[2019-06-30] MEDS: CHOLECALCIFEROL (VITAMIN D 3) 400 UNIT TABLET GT SCH ×2 (09:05→21:12)
[2019-06-30] MEDS: HYDROGEN PEROXIDE 480 ML BOTTLE TP SCH ×2 (09:15→21:22)
[2019-06-30] MEDS: [UNRECOGNIZED DRUG - OTHER] TP SCH ×2 (12:57→21:12)
--- NOTE | 2019-06-30 17:04 | NUR ---
PT RECEIVE STABLE ON C/A @ 28% FIO2, TRACH PATENT AND SECURED, BACK UP DEBRA AND YENNY BAG IS AT BEDSIDE, WILL CONTINUE TO MONITOR Addendum: 06/30/19 at 1704 by JW LENNON RT Amended: Links added.
[2019-06-30 19:37] VITALS: BP 138/78
[2019-06-30] MEDS: PRAVASTATIN SODIUM 20 MG TABLET GT SCH (21:13)
[2019-06-30] MEDS: BENAZEPRIL HCL 20 MG TABLET GT SCH (21:13)
[2019-06-30] MEDS: LATANOPROST EYE DROP 0.005% 2.5 ML BOTTLE EACHEYE SCH (21:13)
[2019-06-30] MEDS: JEVITY 1.2 CAL 1,000 ML BOTTLE GT PRN (22:30)
[2019-07-01] MEDS: IPRATROPIUM NEB FS 0.5 MG/2.5 ML AMPUL.NEB NEB SCH ×4 (01:32→19:48)
--- NOTE | 2019-07-01 05:33 | NUR ---
RT Patient was received on 28% cool aerosol .Breathing treatment was given. Airway patent and secured. Patient stable throughout the shift.Will continue to monitor Addendum: 07/01/19 at 0534 by LUANN LAFLEUR RT Amended: Links added.
[2019-07-01] MEDS: CHLORHEXIDINE GLUCONATE 15 ML UDC MM SCH ×2 (06:13→16:53)
[2019-07-01 07:53] VITALS: BP 120/70
--- NOTE | 2019-07-01 08:41 | NUR ---
RT NOTE: REC'D TRACH PT ON COOL AEROSOL THEN PLACED ON ROOM AIR PER MD ORDER. YENNY BAG @ BEDSIDE. SX DONE PRN. TRACH PATENT AND SECURED. TRACH CARE DONE. NO RESP DISTRESS NOTED AT THIS TIME. WILL CONTINUE TO MONITOR. Addendum: 07/01/19 at 0841 by KRYSTLE ELIZABETH RT Amended: Links added.
[2019-07-01] MEDS: CHOLECALCIFEROL (VITAMIN D 3) 400 UNIT TABLET GT SCH ×2 (08:53→21:13)
[2019-07-01] MEDS: DICLOFENAC TOPICAL 100 GM GEL..GM. TP SCH ×2 (08:53→16:53)
[2019-07-01] MEDS: BIOTIN 5000 MCG GT SCH (08:53)
[2019-07-01] MEDS: FINASTERIDE (5 MG) 5 MG TABLET GT SCH (08:53)
[2019-07-01] MEDS: VITAMINS A AND D 56.7 GM TUBE TP SCH ×2 (08:53→21:13)
[2019-07-01] MEDS: POTASSIUM CHLORIDE GT SCH (08:53)
[2019-07-01] MEDS: RIFAXIMIN 550 MG TABLET GT SCH ×2 (08:53→16:53)
[2019-07-01] MEDS: VITS A AND D/WHITE PET/LANOLIN 5 GM PACKET TP SCH ×4 (08:53→21:13)
[2019-07-01] MEDS: LACTOBACILLUS RHAMNOSUS GG 1 EACH CAP.SPRINK GT SCH ×2 (08:53→16:53)
[2019-07-01] MEDS: MODAFINIL 100 MG TABLET GT SCH (08:53)
[2019-07-01] MEDS: HYDROGEN PEROXIDE 480 ML BOTTLE TP SCH ×2 (09:00→21:09)
[2019-07-01] MEDS: [UNRECOGNIZED DRUG - OTHER] TP SCH ×2 (13:00→21:13)
[2019-07-01 20:04] VITALS: BP 128/77
[2019-07-01] MEDS: LATANOPROST EYE DROP 0.005% 2.5 ML BOTTLE EACHEYE SCH (21:13)
[2019-07-01] MEDS: BENAZEPRIL HCL 20 MG TABLET GT SCH (21:14)
[2019-07-01] MEDS: PRAVASTATIN SODIUM 20 MG TABLET GT SCH (21:14)
[2019-07-02] MEDS: IPRATROPIUM NEB FS 0.5 MG/2.5 ML AMPUL.NEB NEB SCH ×4 (01:37→19:35)
[2019-07-02] MEDS: CHLORHEXIDINE GLUCONATE 15 ML UDC MM SCH ×2 (05:35→17:44)
[2019-07-02 07:34] VITALS: BP 123/63
[2019-07-02] MEDS: POTASSIUM CHLORIDE GT SCH (08:51)
[2019-07-02] MEDS: LACTOBACILLUS RHAMNOSUS GG 1 EACH CAP.SPRINK GT SCH ×2 (08:51→17:44)
[2019-07-02] MEDS: FINASTERIDE (5 MG) 5 MG TABLET GT SCH (08:51)
[2019-07-02] MEDS: BIOTIN 5000 MCG GT SCH (08:51)
[2019-07-02] MEDS: CHOLECALCIFEROL (VITAMIN D 3) 400 UNIT TABLET GT SCH ×2 (08:52→21:10)
[2019-07-02] MEDS: MODAFINIL 100 MG TABLET GT SCH (08:54)
[2019-07-02] MEDS: RIFAXIMIN 550 MG TABLET GT SCH ×2 (08:54→17:44)
[2019-07-02] MEDS: VITS A AND D/WHITE PET/LANOLIN 5 GM PACKET TP SCH ×4 (08:54→21:11)
[2019-07-02] MEDS: VITAMINS A AND D 56.7 GM TUBE TP SCH ×2 (08:55→21:11)
[2019-07-02] MEDS: DICLOFENAC TOPICAL 100 GM GEL..GM. TP SCH ×2 (08:55→17:44)
[2019-07-02] MEDS: HYDROGEN PEROXIDE 480 ML BOTTLE TP SCH ×2 (09:00→21:40)
[2019-07-02] MEDS: HYDROCODONE/APAP 7.5/325MG 1 EACH TABLET GT PRN (10:30)
[2019-07-02] MEDS: [UNRECOGNIZED DRUG - OTHER] TP SCH ×2 (13:07→21:10)
[2019-07-02] MEDS: JEVITY 1.2 CAL 1,000 ML BOTTLE GT PRN (18:52)
[2019-07-02 19:53] VITALS: BP 138/84
[2019-07-02] MEDS: PRAVASTATIN SODIUM 20 MG TABLET GT SCH (21:11)
[2019-07-02] MEDS: LATANOPROST EYE DROP 0.005% 2.5 ML BOTTLE EACHEYE SCH (21:11)
[2019-07-02] MEDS: BENAZEPRIL HCL 20 MG TABLET GT SCH (21:11)
[2019-07-03] MEDS: IPRATROPIUM NEB FS 0.5 MG/2.5 ML AMPUL.NEB NEB SCH ×4 (02:00→19:47)
[2019-07-03] MEDS: CHLORHEXIDINE GLUCONATE 15 ML UDC MM SCH ×2 (05:38→17:08)
[2019-07-03] MEDS: HYDROGEN PEROXIDE 480 ML BOTTLE TP SCH ×2 (09:00→21:00)
[2019-07-03] MEDS: MODAFINIL 100 MG TABLET GT SCH (09:55)
[2019-07-03] MEDS: LACTOBACILLUS RHAMNOSUS GG 1 EACH CAP.SPRINK GT SCH ×2 (09:55→17:08)
[2019-07-03] MEDS: FINASTERIDE (5 MG) 5 MG TABLET GT SCH (09:55)
[2019-07-03] MEDS: DICLOFENAC TOPICAL 100 GM GEL..GM. TP SCH ×2 (09:55→17:08)
[2019-07-03] MEDS: VITAMINS A AND D 56.7 GM TUBE TP SCH ×2 (09:55→21:23)
[2019-07-03] MEDS: BIOTIN 5000 MCG GT SCH (09:55)
[2019-07-03] MEDS: VITS A AND D/WHITE PET/LANOLIN 5 GM PACKET TP SCH ×4 (09:55→21:23)
[2019-07-03] MEDS: RIFAXIMIN 550 MG TABLET GT SCH ×2 (09:55→17:08)
[2019-07-03] MEDS: CHOLECALCIFEROL (VITAMIN D 3) 400 UNIT TABLET GT SCH ×2 (09:55→21:23)
[2019-07-03] MEDS: POTASSIUM CHLORIDE GT SCH (09:55)
[2019-07-03] MEDS: SUMATRIPTAN SUCCINATE 25 MG TABLET GT PRN (10:43)
[2019-07-03 10:45] VITALS: BP 129/72
[2019-07-03] MEDS: [UNRECOGNIZED DRUG - OTHER] TP SCH ×2 (12:47→21:23)
[2019-07-03] MEDS: HYDROCODONE/APAP 7.5/325MG 1 EACH TABLET GT PRN (17:09)
[2019-07-03] MEDS: JEVITY 1.2 CAL 1,000 ML BOTTLE GT PRN (19:13)
[2019-07-03 21:07] VITALS: BP 139/81
[2019-07-03] MEDS: LATANOPROST EYE DROP 0.005% 2.5 ML BOTTLE EACHEYE SCH (21:23)
[2019-07-03] MEDS: BENAZEPRIL HCL 20 MG TABLET GT SCH (21:24)
[2019-07-03] MEDS: PRAVASTATIN SODIUM 20 MG TABLET GT SCH (21:24)
[2019-07-04] MEDS: IPRATROPIUM NEB FS 0.5 MG/2.5 ML AMPUL.NEB NEB SCH ×4 (02:09→19:55)
[2019-07-04] MEDS: CHLORHEXIDINE GLUCONATE 15 ML UDC MM SCH ×2 (05:40→17:38)
[2019-07-04 07:54] VITALS: BP 155/81
[2019-07-04] MEDS: HYDROGEN PEROXIDE 480 ML BOTTLE TP SCH ×2 (09:17→19:55)
--- NOTE | 2019-07-04 09:26 | NUR ---
RT NOTE: REC'D TRACH PT ON COOL AEROSOL THEN PLACED ON ROOM AIR PER MD ORDER. YENNY BAG @ BEDSIDE. SX DONE PRN. TRACH PATENT AND SECURED. TRACH CARE DONE. NO RESP DISTRESS NOTED AT THIS TIME. WILL CONTINUE TO MONITOR. Addendum: 07/04/19 at 0926 by KRYSTLE ELIZABETH RT Amended: Links added.
[2019-07-04] MEDS: BIOTIN 5000 MCG GT SCH (09:47)
[2019-07-04] MEDS: VITS A AND D/WHITE PET/LANOLIN 5 GM PACKET TP SCH ×4 (09:47→21:19)
[2019-07-04] MEDS: FINASTERIDE (5 MG) 5 MG TABLET GT SCH (09:47)
[2019-07-04] MEDS: MODAFINIL 100 MG TABLET GT SCH (09:47)
[2019-07-04] MEDS: CHOLECALCIFEROL (VITAMIN D 3) 400 UNIT TABLET GT SCH ×2 (09:47→21:19)
[2019-07-04] MEDS: LACTOBACILLUS RHAMNOSUS GG 1 EACH CAP.SPRINK GT SCH (09:47)
[2019-07-04] MEDS: POTASSIUM CHLORIDE GT SCH (09:47)
[2019-07-04] MEDS: DICLOFENAC TOPICAL 100 GM GEL..GM. TP SCH ×2 (09:47→16:56)
[2019-07-04] MEDS: VITAMINS A AND D 56.7 GM TUBE TP SCH ×2 (09:47→21:19)
[2019-07-04] MEDS: RIFAXIMIN 550 MG TABLET GT SCH ×2 (09:47→16:56)
[2019-07-04] MEDS: HYDROCODONE/APAP 7.5/325MG 1 EACH TABLET GT PRN (11:45)
[2019-07-04] MEDS: [UNRECOGNIZED DRUG - OTHER] TP SCH ×2 (12:59→21:19)
--- NOTE | 2019-07-04 13:55 | NUR ---
Seen by Dr Edwards. He ordered to DC Culturelle and resume D-Mannose once available. Notified pt's . She said she will buy the D-Mannose.
[2019-07-04] MEDS: JEVITY 1.2 CAL 1,000 ML BOTTLE GT PRN (14:40)
--- NOTE | 2019-07-04 20:06 | NUR ---
RT NOTE: RECEIVED TRACH PT ON ROOM. PLACE PT ON COOL AEROSOL AT THIS TIME. AMBU BAG @ BEDSIDE. Q6 BREATHING TX GIVEN PER MD ORDERS WITH NO ADVERSE REACTION NOTED. SX DONE PRN. TRACH PATENT AND SECURED. TRACH CARE DONE. NO RESP DISTRESS NOTED AT THIS TIME. WILL CONTINUE TO MONITOR PT Addendum: 07/05/19 at 0313 by LINNEA TOVAR RT Amended: Links added.
[2019-07-04 20:58] VITALS: BP 145/74
[2019-07-04] MEDS: LATANOPROST EYE DROP 0.005% 2.5 ML BOTTLE EACHEYE SCH (21:19)
[2019-07-04] MEDS: PRAVASTATIN SODIUM 20 MG TABLET GT SCH (21:20)
[2019-07-04] MEDS: BENAZEPRIL HCL 20 MG TABLET GT SCH (21:20)
[2019-07-05] MEDS: IPRATROPIUM NEB FS 0.5 MG/2.5 ML AMPUL.NEB NEB SCH ×4 (02:04→19:45)
[2019-07-05] MEDS: CHLORHEXIDINE GLUCONATE 15 ML UDC MM SCH ×2 (05:43→17:10)
[2019-07-05 07:30] VITALS: BP 119/69
[2019-07-05] MEDS: HYDROGEN PEROXIDE 480 ML BOTTLE TP SCH ×2 (08:16→21:00)
[2019-07-05] MEDS: RIFAXIMIN 550 MG TABLET GT SCH ×2 (08:58→17:10)
[2019-07-05] MEDS: POTASSIUM CHLORIDE GT SCH (08:58)
[2019-07-05] MEDS: BIOTIN 5000 MCG GT SCH (08:58)
[2019-07-05] MEDS: FINASTERIDE (5 MG) 5 MG TABLET GT SCH (08:58)
[2019-07-05] MEDS: CHOLECALCIFEROL (VITAMIN D 3) 400 UNIT TABLET GT SCH ×2 (09:01→21:36)
[2019-07-05] MEDS: MODAFINIL 100 MG TABLET GT SCH (09:04)
[2019-07-05] MEDS: VITS A AND D/WHITE PET/LANOLIN 5 GM PACKET TP SCH ×4 (09:05→21:37)
[2019-07-05] MEDS: VITAMINS A AND D 56.7 GM TUBE TP SCH ×2 (09:05→21:37)
[2019-07-05] MEDS: DICLOFENAC TOPICAL 100 GM GEL..GM. TP SCH ×2 (09:05→17:10)
[2019-07-05] MEDS: JEVITY 1.2 CAL 1,000 ML BOTTLE GT PRN (09:39)
[2019-07-05] MEDS: [UNRECOGNIZED DRUG - OTHER] TP SCH ×2 (12:09→21:37)
--- NOTE | 2019-07-05 12:23 | NUR ---
Family was not able to attend July Family Support Group today held from 11 am-12 noon. Family will be invited and encouraged to attend next month's Family Support Group.
--- NOTE | 2019-07-05 14:56 | NUR ---
Seen and examined by Denise Pichardo, MEDIA STRATEGIST, NNO given.
[2019-07-05] MEDS: BENAZEPRIL HCL 20 MG TABLET GT SCH (21:37)
[2019-07-05] MEDS: PRAVASTATIN SODIUM 20 MG TABLET GT SCH (21:37)
[2019-07-05] MEDS: LATANOPROST EYE DROP 0.005% 2.5 ML BOTTLE EACHEYE SCH (21:37)
[2019-07-05 22:42] VITALS: BP 143/99
[2019-07-06] MEDS: GLYCOPYRROLATE 1 MG TABLET GT PRN (00:10)
[2019-07-06] MEDS: IPRATROPIUM NEB FS 0.5 MG/2.5 ML AMPUL.NEB NEB SCH ×4 (01:40→19:39)
[2019-07-06] MEDS: JEVITY 1.2 CAL 1,000 ML BOTTLE GT PRN (04:12)
[2019-07-06] MEDS: CHLORHEXIDINE GLUCONATE 15 ML UDC MM SCH ×2 (05:25→17:22)
[2019-07-06] MEDS: BISACODYL SUPP (10 MG) 10 MG/SUPP.RECT SUPP.RECT RC PRN (06:59)
[2019-07-06 07:39] VITALS: BP 124/73
[2019-07-06] MEDS: FINASTERIDE (5 MG) 5 MG TABLET GT SCH (08:29)
[2019-07-06] MEDS: VITS A AND D/WHITE PET/LANOLIN 5 GM PACKET TP SCH ×4 (08:29→21:00)
[2019-07-06] MEDS: POTASSIUM CHLORIDE GT SCH (08:29)
[2019-07-06] MEDS: CHOLECALCIFEROL (VITAMIN D 3) 400 UNIT TABLET GT SCH ×2 (08:29→21:00)
[2019-07-06] MEDS: MODAFINIL 100 MG TABLET GT SCH (08:29)
[2019-07-06] MEDS: RIFAXIMIN 550 MG TABLET GT SCH ×2 (08:29→17:22)
[2019-07-06] MEDS: BIOTIN 5000 MCG GT SCH (08:29)
[2019-07-06] MEDS: VITAMINS A AND D 56.7 GM TUBE TP SCH ×2 (08:30→21:00)
[2019-07-06] MEDS: DICLOFENAC TOPICAL 100 GM GEL..GM. TP SCH ×2 (08:30→17:22)
--- NOTE | 2019-07-06 08:59 | NUR ---
RT NOTE: REC'D TRACH PT ON COOL AEROSOL THEN PLACED ON ROOM AIR PER MD ORDER. YENNY BAG @ BEDSIDE. SX DONE PRN. TRACH PATENT AND SECURED. TRACH CARE DONE. NO RESP DISTRESS NOTED AT THIS TIME. WILL CONTINUE TO MONITOR. Addendum: 07/06/19 at 0859 by KRYSTLE ELIZBAETH RT Amended: Links added.
[2019-07-06] MEDS: HYDROGEN PEROXIDE 480 ML BOTTLE TP SCH ×2 (09:04→21:20)
[2019-07-06] MEDS: HYDROCODONE/APAP 7.5/325MG 1 EACH TABLET GT PRN ×2 (10:37→20:00)
[2019-07-06] MEDS: [UNRECOGNIZED DRUG - OTHER] TP SCH ×2 (12:24→21:00)
--- NOTE | 2019-07-06 12:25 | NUR ---
Pt's asked if Provigil can be DC'd. She thinks pt has been more agitated and combative since he started on Provigil. This morning pt was seen kicking and throwing his arms, sliding off his wheelchair, moving restlessly, and even scratching his on the upper chest. She said pt undresses himself and throws things on the floor at night. Asked Dr Edwards to evaluate use of Provigil. Dr Edwards ordered to DC Provigil. Informed pt's .
--- NOTE | 2019-07-06 16:08 | NUR ---
Wheelchair request: Motion Graphics Artist called [facility], Kimberley [phone] to inquire about getting replacement wheelchair for resident per his wifes request as they accept insurance. SKIP provided Kimberley with pt.s Medicare and Medi-Michael number. However, Kimberley stated the pt.s Medi-Michael indicated the resident is not currently eligible for benefits. SKIP left voicemail for Hogshead Head Matcher, Victoria Pineda ext.#[phone] to inquire about the pt.s insurance status. SKIP will follow up with Kimberley.
[2019-07-06 20:24] VITALS: BP 135/73
[2019-07-06] MEDS: MAGNESIUM HYDROXIDE 30 ML UDC GT PRN (21:00)
[2019-07-06] MEDS: SUMATRIPTAN SUCCINATE 25 MG TABLET GT PRN (22:00)
[2019-07-06] MEDS: LATANOPROST EYE DROP 0.005% 2.5 ML BOTTLE EACHEYE SCH (22:19)
[2019-07-06] MEDS: PRAVASTATIN SODIUM 20 MG TABLET GT SCH (22:19)
[2019-07-06] MEDS: BENAZEPRIL HCL 20 MG TABLET GT SCH (22:19)
[2019-07-07] MEDS: IPRATROPIUM NEB FS 0.5 MG/2.5 ML AMPUL.NEB NEB SCH ×4 (01:36→19:30)
[2019-07-07] MEDS: CHLORHEXIDINE GLUCONATE 15 ML UDC MM SCH ×2 (05:24→18:00)
[2019-07-07 08:00] VITALS: BP 120/71
--- NOTE | 2019-07-07 08:17 | NUR ---
Seen and examined by Dr. Jerry rain.
[2019-07-07] MEDS: DICLOFENAC TOPICAL 100 GM GEL..GM. TP SCH ×2 (08:49→16:28)
[2019-07-07] MEDS: CHOLECALCIFEROL (VITAMIN D 3) 400 UNIT TABLET GT SCH ×2 (08:49→20:30)
[2019-07-07] MEDS: FINASTERIDE (5 MG) 5 MG TABLET GT SCH (08:49)
[2019-07-07] MEDS: RIFAXIMIN 550 MG TABLET GT SCH ×2 (08:49→16:28)
[2019-07-07] MEDS: POTASSIUM CHLORIDE GT SCH (08:49)
[2019-07-07] MEDS: BIOTIN 5000 MCG GT SCH (08:49)
[2019-07-07] MEDS: VITS A AND D/WHITE PET/LANOLIN 5 GM PACKET TP SCH ×4 (08:49→20:31)
[2019-07-07] MEDS: HYDROGEN PEROXIDE 480 ML BOTTLE TP SCH ×2 (08:49→20:30)
[2019-07-07] MEDS: VITAMINS A AND D 56.7 GM TUBE TP SCH ×2 (08:49→20:31)
[2019-07-07] MEDS: [UNRECOGNIZED DRUG - OTHER] TP SCH ×2 (13:00→20:30)
[2019-07-07] MEDS: JEVITY 1.2 CAL 1,000 ML BOTTLE GT PRN ×2 (16:29)
[2019-07-07 20:25] VITALS: BP 134/87
[2019-07-07] MEDS: SIMETHICONE SUSP 40 MG/0.6 ML BOTTLE GT PRN (20:31)
[2019-07-07] MEDS: GLYCOPYRROLATE 1 MG TABLET GT PRN (20:31)
[2019-07-07] MEDS: HYDROCODONE/APAP 7.5/325MG 1 EACH TABLET GT PRN (20:32)
[2019-07-07] MEDS: LATANOPROST EYE DROP 0.005% 2.5 ML BOTTLE EACHEYE SCH (21:01)
[2019-07-07] MEDS: PRAVASTATIN SODIUM 20 MG TABLET GT SCH (21:02)
[2019-07-07] MEDS: BENAZEPRIL HCL 20 MG TABLET GT SCH (21:02)
[2019-07-08] MEDS: IPRATROPIUM NEB FS 0.5 MG/2.5 ML AMPUL.NEB NEB SCH ×5 (01:03→23:53)
[2019-07-08] MEDS: CHLORHEXIDINE GLUCONATE 15 ML UDC MM SCH ×2 (05:11→18:45)
[2019-07-08 07:59] VITALS: BP 100/57
[2019-07-08] MEDS: HYDROGEN PEROXIDE 480 ML BOTTLE TP SCH ×2 (08:01→20:19)
[2019-07-08] MEDS: BIOTIN 5000 MCG GT SCH (09:20)
[2019-07-08] MEDS: POTASSIUM CHLORIDE GT SCH (09:20)
[2019-07-08] MEDS: RIFAXIMIN 550 MG TABLET GT SCH ×2 (09:21→16:38)
[2019-07-08] MEDS: VITS A AND D/WHITE PET/LANOLIN 5 GM PACKET TP SCH ×4 (09:21→20:20)
[2019-07-08] MEDS: FINASTERIDE (5 MG) 5 MG TABLET GT SCH (09:21)
--- NOTE | 2019-07-08 09:24 | NUR ---
RT NOTE: REC'D TRACH PT ON COOL AEROSOL THEN PLACED ON ROOM AIR PER MD ORDER. YENNY BAG @ BEDSIDE. SX DONE PRN. TRACH PATENT AND SECURED. TRACH CARE DONE. NO RESP DISTRESS NOTED AT THIS TIME. WILL CONTINUE TO MONITOR. Addendum: 07/08/19 at 0925 by KRYSTLE ELIZABETH RT Amended: Links added.
[2019-07-08] MEDS: CHOLECALCIFEROL (VITAMIN D 3) 400 UNIT TABLET GT SCH ×2 (09:25→20:19)
[2019-07-08] MEDS: VITAMINS A AND D 56.7 GM TUBE TP SCH ×2 (09:25→20:20)
[2019-07-08] MEDS: DICLOFENAC TOPICAL 100 GM GEL..GM. TP SCH ×2 (09:25→16:38)
[2019-07-08] MEDS: [UNRECOGNIZED DRUG - OTHER] TP SCH ×2 (13:00→20:20)
[2019-07-08] MEDS: JEVITY 1.2 CAL 1,000 ML BOTTLE GT PRN (16:39)
[2019-07-08] MEDS: LATANOPROST EYE DROP 0.005% 2.5 ML BOTTLE EACHEYE SCH (21:10)
[2019-07-08] MEDS: BENAZEPRIL HCL 20 MG TABLET GT SCH (21:11)
[2019-07-08] MEDS: PRAVASTATIN SODIUM 20 MG TABLET GT SCH (21:11)
[2019-07-09 01:53] VITALS: BP 111/79
[2019-07-09] MEDS: CHLORHEXIDINE GLUCONATE 15 ML UDC MM SCH ×2 (05:03→18:11)
[2019-07-09] MEDS: IPRATROPIUM NEB FS 0.5 MG/2.5 ML AMPUL.NEB NEB SCH ×3 (07:43→19:45)
[2019-07-09 07:56] VITALS: BP 97/65
[2019-07-09] MEDS: HYDROGEN PEROXIDE 480 ML BOTTLE TP SCH ×2 (09:00→21:09)
[2019-07-09] MEDS: POTASSIUM CHLORIDE GT SCH (09:07)
[2019-07-09] MEDS: RIFAXIMIN 550 MG TABLET GT SCH ×2 (09:07→16:57)
[2019-07-09] MEDS: CHOLECALCIFEROL (VITAMIN D 3) 400 UNIT TABLET GT SCH ×2 (09:07→20:27)
[2019-07-09] MEDS: FINASTERIDE (5 MG) 5 MG TABLET GT SCH (09:07)
[2019-07-09] MEDS: BIOTIN 5000 MCG GT SCH (09:07)
[2019-07-09] MEDS: DICLOFENAC TOPICAL 100 GM GEL..GM. TP SCH ×2 (09:11→16:58)
[2019-07-09] MEDS: VITS A AND D/WHITE PET/LANOLIN 5 GM PACKET TP SCH ×4 (09:11→20:28)
[2019-07-09] MEDS: VITAMINS A AND D 56.7 GM TUBE TP SCH ×2 (09:11→20:28)
[2019-07-09] MEDS: JEVITY 1.2 CAL 1,000 ML BOTTLE GT PRN (12:02)
[2019-07-09] MEDS: [UNRECOGNIZED DRUG - OTHER] TP SCH ×2 (12:02→20:27)
[2019-07-09] MEDS: HYDROCODONE/APAP 7.5/325MG 1 EACH TABLET GT PRN (12:02)
[2019-07-09] MEDS: MAGNESIUM HYDROXIDE 30 ML UDC GT PRN (18:40)
[2019-07-09 20:46] VITALS: BP 135/89
[2019-07-09] MEDS: LATANOPROST EYE DROP 0.005% 2.5 ML BOTTLE EACHEYE SCH (22:45)
[2019-07-09] MEDS: BENAZEPRIL HCL 20 MG TABLET GT SCH (22:45)
[2019-07-09] MEDS: PRAVASTATIN SODIUM 20 MG TABLET GT SCH (22:45)
[2019-07-10] MEDS: MAGNESIUM HYDROXIDE 30 ML UDC GT PRN
[2019-07-10] MEDS: IPRATROPIUM NEB FS 0.5 MG/2.5 ML AMPUL.NEB NEB SCH ×4 (01:38→19:58)
[2019-07-10] MEDS: CHLORHEXIDINE GLUCONATE 15 ML UDC MM SCH ×2 (06:06→17:55)
[2019-07-10] MEDS: JEVITY 1.2 CAL 1,000 ML BOTTLE GT PRN (06:07)
[2019-07-10] MEDS: CHOLECALCIFEROL (VITAMIN D 3) 400 UNIT TABLET GT SCH ×2 (08:25→21:28)
[2019-07-10] MEDS: BIOTIN 5000 MCG GT SCH (08:25)
[2019-07-10] MEDS: FINASTERIDE (5 MG) 5 MG TABLET GT SCH (08:25)
[2019-07-10] MEDS: POTASSIUM CHLORIDE GT SCH (08:25)
[2019-07-10] MEDS: VITAMINS A AND D 56.7 GM TUBE TP SCH ×2 (08:25→21:28)
[2019-07-10] MEDS: RIFAXIMIN 550 MG TABLET GT SCH ×2 (08:25→17:55)
[2019-07-10] MEDS: VITS A AND D/WHITE PET/LANOLIN 5 GM PACKET TP SCH ×4 (08:25→21:28)
[2019-07-10] MEDS: DICLOFENAC TOPICAL 100 GM GEL..GM. TP SCH ×2 (08:26→17:55)
[2019-07-10] MEDS: HYDROCODONE/APAP 7.5/325MG 1 EACH TABLET GT PRN ×2 (08:37→21:35)
[2019-07-10] MEDS: HYDROGEN PEROXIDE 480 ML BOTTLE TP SCH ×2 (09:00→19:58)
--- NOTE | 2019-07-10 10:40 | NUR ---
Pt's brought D-Mannose. Received order to give D-Mannose 500 mg GT BID as supplement/for UTI prophylaxis.
[2019-07-10 11:32] VITALS: BP 132/87
[2019-07-10] MEDS: [UNRECOGNIZED DRUG - OTHER] TP SCH ×2 (13:24→21:28)
[2019-07-10] MEDS: D MANNOSE 500 MG GT SCH (17:55)
[2019-07-10] MEDS: BISACODYL SUPP (10 MG) 10 MG/SUPP.RECT SUPP.RECT RC PRN (18:21)
[2019-07-10 21:23] VITALS: BP 130/74
[2019-07-10] MEDS: LATANOPROST EYE DROP 0.005% 2.5 ML BOTTLE EACHEYE SCH (21:28)
[2019-07-10] MEDS: BENAZEPRIL HCL 20 MG TABLET GT SCH (21:29)
[2019-07-10] MEDS: PRAVASTATIN SODIUM 20 MG TABLET GT SCH (21:29)
[2019-07-11] MEDS: IPRATROPIUM NEB FS 0.5 MG/2.5 ML AMPUL.NEB NEB SCH ×4 (01:51→19:41)
[2019-07-11] MEDS: CHLORHEXIDINE GLUCONATE 15 ML UDC MM SCH (05:50)
[2019-07-11 07:55] VITALS: BP 113/76
[2019-07-11] MEDS: BIOTIN 5000 MCG GT SCH (08:38)
[2019-07-11] MEDS: FINASTERIDE (5 MG) 5 MG TABLET GT SCH (08:38)
[2019-07-11] MEDS: CHOLECALCIFEROL (VITAMIN D 3) 400 UNIT TABLET GT SCH ×2 (08:38→20:43)
[2019-07-11] MEDS: RIFAXIMIN 550 MG TABLET GT SCH ×2 (08:38→16:39)
[2019-07-11] MEDS: POTASSIUM CHLORIDE GT SCH (08:38)
[2019-07-11] MEDS: D MANNOSE 500 MG GT SCH ×2 (08:38→16:39)
[2019-07-11] MEDS: JEVITY 1.2 CAL 1,000 ML BOTTLE GT PRN (08:49)
[2019-07-11] MEDS: DICLOFENAC TOPICAL 100 GM GEL..GM. TP SCH ×2 (09:00→16:39)
[2019-07-11] MEDS: VITAMINS A AND D 56.7 GM TUBE TP SCH ×2 (09:00→20:44)
[2019-07-11] MEDS: VITS A AND D/WHITE PET/LANOLIN 5 GM PACKET TP SCH ×4 (09:00→20:44)
[2019-07-11] MEDS: HYDROGEN PEROXIDE 480 ML BOTTLE TP SCH ×2 (09:18→21:00)
--- NOTE | 2019-07-11 10:32 | NUR ---
RT NOTE: REC'D TRACH PT ON COOL AEROSOL THEN PLACED ON ROOM AIR PER MD ORDER. YENNY BAG @ BEDSIDE. SX DONE PRN. TRACH PATENT AND SECURED. TRACH CARE DONE. NO RESP DISTRESS NOTED AT THIS TIME. WILL CONTINUE TO MONITOR. Addendum: 07/11/19 at 1032 by KRYSTLE ELIZABETH RT Amended: Links added.
[2019-07-11] MEDS: [UNRECOGNIZED DRUG - OTHER] TP SCH ×2 (13:00→20:44)
[2019-07-11 20:11] VITALS: BP 132/85
[2019-07-11] MEDS: SUMATRIPTAN SUCCINATE 25 MG TABLET GT PRN (21:41)
[2019-07-11] MEDS: LATANOPROST EYE DROP 0.005% 2.5 ML BOTTLE EACHEYE SCH (21:57)
[2019-07-11] MEDS: BENAZEPRIL HCL 20 MG TABLET GT SCH (21:58)
[2019-07-11] MEDS: PRAVASTATIN SODIUM 20 MG TABLET GT SCH (21:58)
[2019-07-12] MEDS: IPRATROPIUM NEB FS 0.5 MG/2.5 ML AMPUL.NEB NEB SCH ×4 (02:07→19:47)
[2019-07-12] MEDS: CHLORHEXIDINE GLUCONATE 15 ML UDC MM SCH ×2 (05:32→17:57)
[2019-07-12] MEDS: JEVITY 1.2 CAL 1,000 ML BOTTLE GT PRN (05:33)
[2019-07-12 07:51] VITALS: BP 145/88
[2019-07-12] MEDS: HYDROGEN PEROXIDE 480 ML BOTTLE TP SCH ×2 (09:00→19:47)
[2019-07-12] MEDS: FINASTERIDE (5 MG) 5 MG TABLET GT SCH (09:00)
[2019-07-12] MEDS: RIFAXIMIN 550 MG TABLET GT SCH ×2 (09:00→17:57)
[2019-07-12] MEDS: POTASSIUM CHLORIDE GT SCH (09:00)
[2019-07-12] MEDS: VITAMINS A AND D 56.7 GM TUBE TP SCH ×2 (09:00→21:40)
[2019-07-12] MEDS: CHOLECALCIFEROL (VITAMIN D 3) 400 UNIT TABLET GT SCH ×2 (09:00→21:40)
[2019-07-12] MEDS: BIOTIN 5000 MCG GT SCH (09:00)
[2019-07-12] MEDS: VITS A AND D/WHITE PET/LANOLIN 5 GM PACKET TP SCH ×4 (09:00→21:40)
[2019-07-12] MEDS: D MANNOSE 500 MG GT SCH ×2 (09:00→17:57)
[2019-07-12] MEDS: DICLOFENAC TOPICAL 100 GM GEL..GM. TP SCH ×2 (09:00→17:57)
[2019-07-12] MEDS: HYDROCODONE/APAP 7.5/325MG 1 EACH TABLET GT PRN ×2 (10:54→23:11)
[2019-07-12] MEDS: [UNRECOGNIZED DRUG - OTHER] TP SCH ×2 (13:06→21:40)
--- NOTE | 2019-07-12 15:30 | NUR ---
Seen and examined by Denise Pichardo NP no new order given.
--- NOTE | 2019-07-12 19:57 | NUR ---
RT NOTE: RECEIVED TRACH PT ON ROOM AIR. PLACED ON COOL AEROSOL AT THIS TIME. AMBU BAG @ BEDSIDE. Q6 BREATHING TX GIVEN PER MD ORDERS WITH NO ADVERSE REACTION NOTED. SX DONE PRN. TRACH PATENT AND SECURED. TRACH CARE DONE. NO RESP DISTRESS NOTED AT THIS TIME. WILL CONTINUE TO MONITOR PT Addendum: 07/13/19 at 0219 by LNINEA TOVAR RT Amended: Links added.
[2019-07-12 20:27] VITALS: BP 142/76
[2019-07-12] MEDS: LATANOPROST EYE DROP 0.005% 2.5 ML BOTTLE EACHEYE SCH (21:41)
[2019-07-12] MEDS: BENAZEPRIL HCL 20 MG TABLET GT SCH (21:41)
[2019-07-12] MEDS: PRAVASTATIN SODIUM 20 MG TABLET GT SCH (21:41)
[2019-07-13] MEDS: IPRATROPIUM NEB FS 0.5 MG/2.5 ML AMPUL.NEB NEB SCH ×4 (01:27→19:43)
[2019-07-13] MEDS: CHLORHEXIDINE GLUCONATE 15 ML UDC MM SCH ×2 (05:32→18:15)
[2019-07-13] MEDS: JEVITY 1.2 CAL 1,000 ML BOTTLE GT PRN (05:32)
[2019-07-13] MEDS: HYDROGEN PEROXIDE 480 ML BOTTLE TP SCH ×2 (07:29→19:43)
[2019-07-13 07:41] VITALS: BP 127/77
[2019-07-13] MEDS: D MANNOSE 500 MG GT SCH ×2 (08:31→16:39)
[2019-07-13] MEDS: POTASSIUM CHLORIDE GT SCH (08:31)
[2019-07-13] MEDS: BIOTIN 5000 MCG GT SCH (08:32)
[2019-07-13] MEDS: VITAMINS A AND D 56.7 GM TUBE TP SCH ×2 (08:32→20:09)
[2019-07-13] MEDS: FINASTERIDE (5 MG) 5 MG TABLET GT SCH (08:32)
[2019-07-13] MEDS: DICLOFENAC TOPICAL 100 GM GEL..GM. TP SCH ×2 (08:32→16:40)
[2019-07-13] MEDS: RIFAXIMIN 550 MG TABLET GT SCH ×2 (08:32→16:39)
[2019-07-13] MEDS: VITS A AND D/WHITE PET/LANOLIN 5 GM PACKET TP SCH ×4 (08:32→20:09)
[2019-07-13] MEDS: CHOLECALCIFEROL (VITAMIN D 3) 400 UNIT TABLET GT SCH ×2 (08:32→20:09)
--- NOTE | 2019-07-13 11:36 | NUR ---
Family Invitation to Holiday Lunch-In: SKIP spoke to the patients Asha, at pt.s bedside to invite her to the Holiday Lunch provided for Families on 07/20/19 from 11:30 am-1pm in the activities room. Asha stated that she would be in attendance. SKIP also provided the patients , Asha the business card as she requested.
--- NOTE | 2019-07-13 11:36 | NUR ---
Family Invitation to IDT: SKIP invited the patients , Asha [phone] to the next Interdisciplinary Plan of Care Conference taking place 07/21/19 from 12:30-1:30pm in the activities room. Asha was agreeable to plan and stated she would try to make it.
[2019-07-13] MEDS: [UNRECOGNIZED DRUG - OTHER] TP SCH ×2 (12:50→20:09)
--- NOTE | 2019-07-13 15:04 | NUR ---
Wheelchair request: Per patients Hitesh Steele request, SKIP contacted [facility] [phone] and spoke to Refugio to determine if they can provide a new cushion for the pt.s wheelchair. Per Refugio, [facility] can repair and replace any of the wheelchair parts so the WC is restored to almost new condition. Per Refugio, [facility] would assess what needs to be replaced or repaired on the WC and then require a doctors order for WC repair and an order for a new WC cushion. The patients Asha, completed an Authorization to Use and Disclose Health Information Form to [facility]. The form was filed in the patients chart. Per Edgars request, SKIP faxed over the pt.s facesheet and Medicare #. Refugio will contact SKIP to inform if insurance will cover costs.
--- NOTE | 2019-07-13 17:02 | NUR ---
RT NOTE: RECEIVED TRACH PT ON ORDERED COOL AEROSOL. PT WAS PLACED ON ROOM AIR WHEN ARRIVED. NO RESPIRATORY DISTRESS NOTED. TRACH CHECKED SECURE AND PATENT. SXD AND LAVAGE PT Q ROUND AND NEEDED. TXS GIVEN ORDERED WITH NO ADVERSE REACTIONS NOTED. TRACH CARE DONE. SPARE TRACH AND AMBU BAG @ BEDSIDE.
--- NOTE | 2019-07-13 19:30 | NUR ---
Seen by ISABELA Pichardo no new orders.
[2019-07-13 20:01] VITALS: BP 123/87
[2019-07-13] MEDS: MAGNESIUM HYDROXIDE 30 ML UDC GT PRN (20:09)
[2019-07-13] MEDS: GLYCOPYRROLATE 1 MG TABLET GT PRN (20:10)
[2019-07-13] MEDS: BENAZEPRIL HCL 20 MG TABLET GT SCH (21:07)
[2019-07-13] MEDS: LATANOPROST EYE DROP 0.005% 2.5 ML BOTTLE EACHEYE SCH (21:07)
[2019-07-13] MEDS: PRAVASTATIN SODIUM 20 MG TABLET GT SCH (21:07)
[2019-07-14] MEDS: IPRATROPIUM NEB FS 0.5 MG/2.5 ML AMPUL.NEB NEB SCH ×4 (01:57→19:48)
[2019-07-14] MEDS: CHLORHEXIDINE GLUCONATE 15 ML UDC MM SCH ×2 (05:08→17:24)
[2019-07-14 07:51] VITALS: BP 123/75
[2019-07-14] MEDS: HYDROGEN PEROXIDE 480 ML BOTTLE TP SCH ×2 (08:13→21:27)
[2019-07-14] MEDS: POTASSIUM CHLORIDE GT SCH (08:51)
[2019-07-14] MEDS: D MANNOSE 500 MG GT SCH ×2 (08:51→17:24)
[2019-07-14] MEDS: BIOTIN 5000 MCG GT SCH (08:52)
[2019-07-14] MEDS: VITS A AND D/WHITE PET/LANOLIN 5 GM PACKET TP SCH ×4 (08:52→21:27)
[2019-07-14] MEDS: CHOLECALCIFEROL (VITAMIN D 3) 400 UNIT TABLET GT SCH ×2 (08:52→21:27)
[2019-07-14] MEDS: FINASTERIDE (5 MG) 5 MG TABLET GT SCH (08:52)
[2019-07-14] MEDS: RIFAXIMIN 550 MG TABLET GT SCH ×2 (08:52→17:24)
[2019-07-14] MEDS: VITAMINS A AND D 56.7 GM TUBE TP SCH ×2 (08:53→21:27)
[2019-07-14] MEDS: DICLOFENAC TOPICAL 100 GM GEL..GM. TP SCH ×2 (08:53→17:24)
[2019-07-14] MEDS: [UNRECOGNIZED DRUG - OTHER] TP SCH ×2 (13:00→21:27)
--- NOTE | 2019-07-14 16:53 | NUR ---
RT NOTE RECEIVED PATIENT ON TRACH WITH COOL AEROSOL. TRACH IS PATENT AND SECURED. SPARE TRACH AND BVM IS AT BEDSIDE. PATIENT HAS EQUAL CHEST RISE AND COARSE BILATERAL BREATH SOUNDS. SUCTION SMALL AMOUNT OF THIN GREEN SECRETIONS THROUGH OUT THE DAY. NO SOB NOTED. Addendum: 07/14/19 at 1653 by JENNY PEOPLES RT Amended: Links added.
[2019-07-14 20:48] VITALS: BP 138/88
[2019-07-14] MEDS: LATANOPROST EYE DROP 0.005% 2.5 ML BOTTLE EACHEYE SCH (21:27)
[2019-07-14] MEDS: BENAZEPRIL HCL 20 MG TABLET GT SCH (21:28)
[2019-07-14] MEDS: SIMETHICONE SUSP 40 MG/0.6 ML BOTTLE GT PRN (21:28)
[2019-07-14] MEDS: GLYCOPYRROLATE 1 MG TABLET GT PRN (21:28)
[2019-07-14] MEDS: PRAVASTATIN SODIUM 20 MG TABLET GT SCH (21:28)
[2019-07-14] MEDS: HYDROCODONE/APAP 7.5/325MG 1 EACH TABLET GT PRN (22:31)
[2019-07-15] MEDS: IPRATROPIUM NEB FS 0.5 MG/2.5 ML AMPUL.NEB NEB SCH ×4 (01:47→19:37)
[2019-07-15] MEDS: CHLORHEXIDINE GLUCONATE 15 ML UDC MM SCH ×2 (05:37→17:43)
[2019-07-15] MEDS: JEVITY 1.2 CAL 1,000 ML BOTTLE GT PRN (05:41)
[2019-07-15] MEDS: HYDROGEN PEROXIDE 480 ML BOTTLE TP SCH ×2 (07:33→21:02)
[2019-07-15 08:03] VITALS: BP 127/73
[2019-07-15] MEDS: CHOLECALCIFEROL (VITAMIN D 3) 400 UNIT TABLET GT SCH ×2 (08:34→20:06)
[2019-07-15] MEDS: RIFAXIMIN 550 MG TABLET GT SCH ×2 (08:34→17:43)
[2019-07-15] MEDS: D MANNOSE 500 MG GT SCH ×2 (08:34→17:43)
[2019-07-15] MEDS: FINASTERIDE (5 MG) 5 MG TABLET GT SCH (08:34)
[2019-07-15] MEDS: VITS A AND D/WHITE PET/LANOLIN 5 GM PACKET TP SCH ×4 (08:34→20:06)
[2019-07-15] MEDS: DICLOFENAC TOPICAL 100 GM GEL..GM. TP SCH ×2 (08:34→17:43)
[2019-07-15] MEDS: BIOTIN 5000 MCG GT SCH (08:34)
[2019-07-15] MEDS: POTASSIUM CHLORIDE GT SCH (08:34)
[2019-07-15] MEDS: VITAMINS A AND D 56.7 GM TUBE TP SCH ×2 (08:34→20:06)
[2019-07-15] MEDS: [UNRECOGNIZED DRUG - OTHER] TP SCH ×2 (13:55→20:06)
--- NOTE | 2019-07-15 17:04 | NUR ---
RT NOTE RECEIVED PATIENT ON TRACH WITH COOL AEROSOL. TRACH IS PATENT AND SECURED. SPARE TRACH AND BVM IS AT BEDSIDE. PATIENT HAS EQUAL CHEST RISE AND COARSE BILATERAL BREATH SOUNDS. SUCTION SMALL AMOUNT OF THIN GREEN SECRETIONS THROUGH OUT THE DAY. NO SOB NOTED. Addendum: 07/15/19 at 1705 by JENNY PEOPLES RT Amended: Links added.
[2019-07-15] MEDS: MAGNESIUM HYDROXIDE 30 ML UDC GT PRN (20:07)
[2019-07-15] MEDS: SIMETHICONE SUSP 40 MG/0.6 ML BOTTLE GT PRN (20:07)
[2019-07-15] MEDS: GLYCOPYRROLATE 1 MG TABLET GT PRN (20:07)
[2019-07-15 20:56] VITALS: BP 135/82
[2019-07-15] MEDS: PRAVASTATIN SODIUM 20 MG TABLET GT SCH (21:18)
[2019-07-15] MEDS: BENAZEPRIL HCL 20 MG TABLET GT SCH (21:18)
[2019-07-15] MEDS: LATANOPROST EYE DROP 0.005% 2.5 ML BOTTLE EACHEYE SCH (21:18)
[2019-07-16] MEDS: IPRATROPIUM NEB FS 0.5 MG/2.5 ML AMPUL.NEB NEB SCH ×4 (01:45→20:07)
[2019-07-16] MEDS: CHLORHEXIDINE GLUCONATE 15 ML UDC MM SCH ×2 (05:05→17:12)
[2019-07-16] MEDS: JEVITY 1.2 CAL 1,000 ML BOTTLE GT PRN (05:06)
[2019-07-16 07:42] VITALS: BP 131/77
[2019-07-16] MEDS: HYDROGEN PEROXIDE 480 ML BOTTLE TP SCH ×2 (08:14→20:07)
[2019-07-16] MEDS: D MANNOSE 500 MG GT SCH ×2 (09:34→17:12)
[2019-07-16] MEDS: CHOLECALCIFEROL (VITAMIN D 3) 400 UNIT TABLET GT SCH ×2 (09:35→20:30)
[2019-07-16] MEDS: FINASTERIDE (5 MG) 5 MG TABLET GT SCH (09:35)
[2019-07-16] MEDS: VITAMINS A AND D 56.7 GM TUBE TP SCH ×2 (09:35→20:30)
[2019-07-16] MEDS: BIOTIN 5000 MCG GT SCH (09:35)
[2019-07-16] MEDS: VITS A AND D/WHITE PET/LANOLIN 5 GM PACKET TP SCH ×4 (09:35→20:30)
[2019-07-16] MEDS: POTASSIUM CHLORIDE GT SCH (09:35)
[2019-07-16] MEDS: RIFAXIMIN 550 MG TABLET GT SCH ×2 (09:35→17:12)
[2019-07-16] MEDS: DICLOFENAC TOPICAL 100 GM GEL..GM. TP SCH ×2 (09:42→17:12)
[2019-07-16] MEDS: HYDROCODONE/APAP 7.5/325MG 1 EACH TABLET GT PRN ×3 (09:43→22:38)
[2019-07-16] MEDS: [UNRECOGNIZED DRUG - OTHER] TP SCH ×2 (12:58→20:30)
--- NOTE | 2019-07-16 13:46 | NUR ---
Seen and examined by Dr. Edwards no new orders.
[2019-07-16 20:56] VITALS: BP 142/85
[2019-07-16] MEDS: BENAZEPRIL HCL 20 MG TABLET GT SCH (21:41)
[2019-07-16] MEDS: LATANOPROST EYE DROP 0.005% 2.5 ML BOTTLE EACHEYE SCH (21:41)
[2019-07-16] MEDS: PRAVASTATIN SODIUM 20 MG TABLET GT SCH (21:41)
--- NOTE | 2019-07-17 00:18 | NUR ---
RT PT RECEIVED ON COOL AEROSOL AT 5 LPM. TRACHED WITH PORTEX 6. AMBU BAG AT HEAD OF BED. SPARE TRACH AT BED SIDE. NO RESPIRATORY DISTRESS. WILL CONTINUE TO MONITOR. Addendum: 07/17/19 at 0018 by SEAN RAYA RT Amended: Links added.
[2019-07-17] MEDS: IPRATROPIUM NEB FS 0.5 MG/2.5 ML AMPUL.NEB NEB SCH ×4 (01:20→20:05)
[2019-07-17] MEDS: JEVITY 1.2 CAL 1,000 ML BOTTLE GT PRN (03:55)
[2019-07-17] MEDS: CHLORHEXIDINE GLUCONATE 15 ML UDC MM SCH ×2 (05:51→17:38)
[2019-07-17 07:54] VITALS: BP 119/72
[2019-07-17] MEDS: HYDROGEN PEROXIDE 480 ML BOTTLE TP SCH ×2 (09:00→21:00)
[2019-07-17] MEDS: POTASSIUM CHLORIDE GT SCH (09:40)
[2019-07-17] MEDS: BIOTIN 5000 MCG GT SCH (09:40)
[2019-07-17] MEDS: D MANNOSE 500 MG GT SCH ×2 (09:40→17:38)
[2019-07-17] MEDS: FINASTERIDE (5 MG) 5 MG TABLET GT SCH (09:40)
[2019-07-17] MEDS: VITAMINS A AND D 56.7 GM TUBE TP SCH ×2 (09:41→20:52)
[2019-07-17] MEDS: RIFAXIMIN 550 MG TABLET GT SCH ×2 (09:41→17:38)
[2019-07-17] MEDS: VITS A AND D/WHITE PET/LANOLIN 5 GM PACKET TP SCH ×4 (09:41→20:52)
[2019-07-17] MEDS: CHOLECALCIFEROL (VITAMIN D 3) 400 UNIT TABLET GT SCH ×2 (09:41→20:51)
[2019-07-17] MEDS: DICLOFENAC TOPICAL 100 GM GEL..GM. TP SCH ×2 (09:41→17:38)
[2019-07-17] MEDS: [UNRECOGNIZED DRUG - OTHER] TP SCH ×2 (12:48→20:52)
[2019-07-17] MEDS: BISACODYL SUPP (10 MG) 10 MG/SUPP.RECT SUPP.RECT RC PRN (18:48)
[2019-07-17 20:41] VITALS: BP 140/83
[2019-07-17] MEDS: BENAZEPRIL HCL 20 MG TABLET GT SCH (21:19)
[2019-07-17] MEDS: LATANOPROST EYE DROP 0.005% 2.5 ML BOTTLE EACHEYE SCH (21:19)
[2019-07-17] MEDS: PRAVASTATIN SODIUM 20 MG TABLET GT SCH (21:20)
[2019-07-18] MEDS: IPRATROPIUM NEB FS 0.5 MG/2.5 ML AMPUL.NEB NEB SCH ×4 (01:21→19:47)
[2019-07-18] MEDS: HYDROGEN PEROXIDE 480 ML BOTTLE TP SCH ×2 (09:00→21:00)
[2019-07-18] MEDS: POTASSIUM CHLORIDE GT SCH (09:55)
[2019-07-18] MEDS: BIOTIN 5000 MCG GT SCH (09:55)
[2019-07-18] MEDS: D MANNOSE 500 MG GT SCH ×2 (09:55→17:02)
[2019-07-18] MEDS: FINASTERIDE (5 MG) 5 MG TABLET GT SCH (09:55)
[2019-07-18] MEDS: CHOLECALCIFEROL (VITAMIN D 3) 400 UNIT TABLET GT SCH ×2 (09:55→21:17)
[2019-07-18] MEDS: RIFAXIMIN 550 MG TABLET GT SCH ×2 (09:56→17:02)
[2019-07-18] MEDS: DICLOFENAC TOPICAL 100 GM GEL..GM. TP SCH ×2 (09:56→17:02)
[2019-07-18] MEDS: VITS A AND D/WHITE PET/LANOLIN 5 GM PACKET TP SCH ×4 (09:56→21:17)
[2019-07-18] MEDS: VITAMINS A AND D 56.7 GM TUBE TP SCH ×2 (09:56→21:17)
--- NOTE | 2019-07-18 11:30 | NUR ---
Seen by Dr Mejia this morning. Received order for RT to give Mucomyst for 7 days for thick secretions. aware.
[2019-07-18] MEDS: [UNRECOGNIZED DRUG - OTHER] TP SCH ×2 (12:24→21:17)
[2019-07-18] MEDS: HYDROCODONE/APAP 7.5/325MG 1 EACH TABLET GT PRN (12:25)
[2019-07-18 12:31] VITALS: BP 146/77
[2019-07-18] MEDS ORDERED: ACETYLCYSTEINE 10% SOLN 400 MG/4 ML VIAL NEB ONE (14:00)
[2019-07-18] MEDS: ACETYLCYSTEINE 10% SOLN 400 MG/4 ML VIAL NEB SCH ×2 (14:53→23:30)
[2019-07-18] MEDS: CHLORHEXIDINE GLUCONATE 15 ML UDC MM SCH (17:02)
[2019-07-18 20:54] VITALS: BP 140/80
[2019-07-18] MEDS: LATANOPROST EYE DROP 0.005% 2.5 ML BOTTLE EACHEYE SCH (21:17)
[2019-07-18] MEDS: MAGNESIUM HYDROXIDE 30 ML UDC GT PRN (21:18)
[2019-07-18] MEDS: PRAVASTATIN SODIUM 20 MG TABLET GT SCH (21:18)
[2019-07-18] MEDS: BENAZEPRIL HCL 20 MG TABLET GT SCH (21:18)
[2019-07-19] MEDS: HYDROCODONE/APAP 7.5/325MG 1 EACH TABLET GT PRN ×2 (01:21→20:32)
[2019-07-19] MEDS: IPRATROPIUM NEB FS 0.5 MG/2.5 ML AMPUL.NEB NEB SCH ×4 (01:22→20:01)
[2019-07-19] MEDS: CHLORHEXIDINE GLUCONATE 15 ML UDC MM SCH ×2 (05:38→18:37)
[2019-07-19] MEDS: JEVITY 1.2 CAL 1,000 ML BOTTLE GT PRN (06:37)
[2019-07-19 07:44] VITALS: BP 131/75
[2019-07-19] MEDS: ACETYLCYSTEINE 10% SOLN 400 MG/4 ML VIAL NEB SCH ×2 (07:47→15:34)
[2019-07-19] MEDS: D MANNOSE 500 MG GT SCH ×2 (08:37→16:33)
[2019-07-19] MEDS: CHOLECALCIFEROL (VITAMIN D 3) 400 UNIT TABLET GT SCH ×2 (08:37→20:30)
[2019-07-19] MEDS: BIOTIN 5000 MCG GT SCH (08:37)
[2019-07-19] MEDS: POTASSIUM CHLORIDE GT SCH (08:37)
[2019-07-19] MEDS: RIFAXIMIN 550 MG TABLET GT SCH ×2 (08:37→16:33)
[2019-07-19] MEDS: FINASTERIDE (5 MG) 5 MG TABLET GT SCH (08:37)
[2019-07-19] MEDS: VITS A AND D/WHITE PET/LANOLIN 5 GM PACKET TP SCH ×4 (08:38→20:31)
[2019-07-19] MEDS: VITAMINS A AND D 56.7 GM TUBE TP SCH ×2 (08:39→20:31)
[2019-07-19] MEDS: DICLOFENAC TOPICAL 100 GM GEL..GM. TP SCH ×2 (08:39→16:33)
[2019-07-19] MEDS: HYDROGEN PEROXIDE 480 ML BOTTLE TP SCH ×2 (09:00→20:01)
--- NOTE | 2019-07-19 09:16 | NUR ---
RT NOTE: REC'D TRACH PT ON COOL AEROSOL THEN PLACED ON ROOM AIR PER MD ORDER. YENNY BAG @ BEDSIDE. SX DONE PRN. TRACH PATENT AND SECURED. TRACH CARE DONE. NO RESP DISTRESS NOTED AT THIS TIME. WILL CONTINUE TO MONITOR. Addendum: 07/19/19 at 0916 by KRYSTLE ELIZABETH RT Amended: Links added.
[2019-07-19] MEDS: [UNRECOGNIZED DRUG - OTHER] TP SCH ×2 (13:00→20:31)
--- NOTE | 2019-07-19 20:11 | NUR ---
RT NOTE: RECEIVED TRACH PT ON ROOM AIR. PLACED PT ON COOL AEROSOL AT THIS TIME. AMBU BAG @ BEDSIDE. BREATHING TX GIVEN PER MD ORDERS WITH NO ADVERSE REACTION NOTED. SX DONE PRN. TRACH PATENT AND SECURED. TRACH CARE DONE. NO RESP DISTRESS NOTED AT THIS TIME. WILL CONTINUE TO MONITOR PT Addendum: 07/19/19 at 2020 by LINNEA TOVAR RT Amended: Links added.
[2019-07-19 21:06] VITALS: BP 163/94
[2019-07-19] MEDS: LATANOPROST EYE DROP 0.005% 2.5 ML BOTTLE EACHEYE SCH (21:41)
[2019-07-19] MEDS: BENAZEPRIL HCL 20 MG TABLET GT SCH (21:41)
[2019-07-19] MEDS: PRAVASTATIN SODIUM 20 MG TABLET GT SCH (21:41)
[2019-07-20] MEDS: ACETYLCYSTEINE 10% SOLN 400 MG/4 ML VIAL NEB SCH ×4 (00:27→23:30)
[2019-07-20] MEDS: IPRATROPIUM NEB FS 0.5 MG/2.5 ML AMPUL.NEB NEB SCH ×4 (00:30→19:53)
[2019-07-20] MEDS: ACETAMINOPHEN 650 MG/20 ML UDC- SA PATIENTS-PAIN ONLY GT PRN (06:09)
[2019-07-20] MEDS: CHLORHEXIDINE GLUCONATE 15 ML UDC MM SCH ×2 (06:09→17:33)
[2019-07-20 07:44] VITALS: BP 134/81
[2019-07-20] MEDS: HYDROGEN PEROXIDE 480 ML BOTTLE TP SCH ×2 (08:11→20:52)
[2019-07-20] MEDS: POTASSIUM CHLORIDE GT SCH (08:27)
[2019-07-20] MEDS: FINASTERIDE (5 MG) 5 MG TABLET GT SCH (08:27)
[2019-07-20] MEDS: CHOLECALCIFEROL (VITAMIN D 3) 400 UNIT TABLET GT SCH ×2 (08:27→21:27)
[2019-07-20] MEDS: BIOTIN 5000 MCG GT SCH (08:27)
[2019-07-20] MEDS: D MANNOSE 500 MG GT SCH ×2 (08:27→17:33)
[2019-07-20] MEDS: RIFAXIMIN 550 MG TABLET GT SCH ×2 (08:28→17:33)
[2019-07-20] MEDS: DICLOFENAC TOPICAL 100 GM GEL..GM. TP SCH ×2 (08:28→17:33)
[2019-07-20] MEDS: VITAMINS A AND D 56.7 GM TUBE TP SCH ×2 (08:28→21:27)
[2019-07-20] MEDS: VITS A AND D/WHITE PET/LANOLIN 5 GM PACKET TP SCH ×4 (08:28→21:27)
--- NOTE | 2019-07-20 09:00 | NUR ---
Pt has been agitated this morning, dangling legs over the siderails, kicking, trying to get up from bed, throwing pillows on the floor. Pt pulled trach tube out. RT Yovani replaced it. Pt's diaper dry. TAPE SEWING MACHINE OPERATOR repositioned pt. Complained of pain. Nurse administered [place].
[2019-07-20] MEDS: HYDROCODONE/APAP 7.5/325MG 1 EACH TABLET GT PRN ×2 (09:02→22:00)
[2019-07-20] MEDS: [UNRECOGNIZED DRUG - OTHER] TP SCH ×2 (12:40→21:27)
[2019-07-20] MEDS: GLYCOPYRROLATE 1 MG TABLET GT PRN (17:34)
[2019-07-20 20:44] VITALS: BP 136/82
--- NOTE | 2019-07-20 20:50 | NUR ---
RT NOTE PT RECEIVED TRACHED ON COOL AEROSOL. AMBU BAG/BACK UP TRACH @ BEDSIDE. TX GIVEN, NO ADVERSE REACTIONS NOTED. SX DONE, TRACH SECURED AND PATENT. WATER LEVEL GOOD. NO SOB NOTED. Addendum: 07/20/19 at 2051 by CHRISTIANO MCCALL RT Amended: Links added.
[2019-07-20] MEDS: LATANOPROST EYE DROP 0.005% 2.5 ML BOTTLE EACHEYE SCH (21:27)
[2019-07-20] MEDS: PRAVASTATIN SODIUM 20 MG TABLET GT SCH (21:28)
[2019-07-20] MEDS: BENAZEPRIL HCL 20 MG TABLET GT SCH (21:28)
[2019-07-21] MEDS: ACETYLCYSTEINE 10% SOLN 400 MG/4 ML VIAL NEB SCH ×3 (00:37→13:03)
[2019-07-21] MEDS: GLYCOPYRROLATE 1 MG TABLET GT PRN ×2 (00:45→21:23)
[2019-07-21] MEDS: IPRATROPIUM NEB FS 0.5 MG/2.5 ML AMPUL.NEB NEB SCH ×4 (02:17→20:03)
[2019-07-21] MEDS: CHLORHEXIDINE GLUCONATE 15 ML UDC MM SCH ×2 (05:36→17:26)
[2019-07-21] MEDS: JEVITY 1.2 CAL 1,000 ML BOTTLE GT PRN (05:36)
[2019-07-21 08:01] VITALS: BP 143/73
[2019-07-21] MEDS: VITAMINS A AND D 56.7 GM TUBE TP SCH ×2 (09:00→21:22)
[2019-07-21] MEDS: HYDROGEN PEROXIDE 480 ML BOTTLE TP SCH ×2 (09:00→20:03)
[2019-07-21] MEDS: D MANNOSE 500 MG GT SCH ×2 (09:00→17:26)
[2019-07-21] MEDS: CHOLECALCIFEROL (VITAMIN D 3) 400 UNIT TABLET GT SCH ×2 (09:00→21:22)
[2019-07-21] MEDS: DICLOFENAC TOPICAL 100 GM GEL..GM. TP SCH ×2 (09:00→17:26)
[2019-07-21] MEDS: FINASTERIDE (5 MG) 5 MG TABLET GT SCH (09:00)
[2019-07-21] MEDS: BIOTIN 5000 MCG GT SCH (09:00)
[2019-07-21] MEDS: VITS A AND D/WHITE PET/LANOLIN 5 GM PACKET TP SCH ×4 (09:00→21:22)
[2019-07-21] MEDS: POTASSIUM CHLORIDE GT SCH (09:00)
[2019-07-21] MEDS: RIFAXIMIN 550 MG TABLET GT SCH ×2 (09:00→17:26)
[2019-07-21] MEDS: [UNRECOGNIZED DRUG - OTHER] TP SCH ×2 (13:25→21:22)
--- NOTE | 2019-07-21 14:22 | NUR ---
INTERDISCIPLINARY PLAN OF CARE CONFERENCE took place today. The patients responsible alliance party/ Asha Lopez [phone] was not able to attend or participate via phone conference. Per Charge Nurse, the pt. is stable. Dr. Mejia and Interdisciplinary team discussed the plan of care in detail. Current orders as well as treatments and medications were reviewed. Please see other disciplines IDT notes for further details.
[2019-07-21 20:21] VITALS: BP 138/88
--- NOTE | 2019-07-21 20:36 | NUR ---
PT RCVD TRACH'D ON COOL AEROSOL WITH CHARTED SETTINGS. PT FRANCIE TX WELL. SX DONE. PT TRACH IS PATENT AND SECURE. AMBU BAG AT BEDSIDE. NO SOB NOTED. Addendum: 07/21/19 at 2036 by LISETH MOCK RT Amended: Links added.
[2019-07-21] MEDS: LATANOPROST EYE DROP 0.005% 2.5 ML BOTTLE EACHEYE SCH (21:22)
[2019-07-21] MEDS: BENAZEPRIL HCL 20 MG TABLET GT SCH (21:23)
[2019-07-21] MEDS: PRAVASTATIN SODIUM 20 MG TABLET GT SCH (21:23)
[2019-07-22] MEDS: IPRATROPIUM NEB FS 0.5 MG/2.5 ML AMPUL.NEB NEB SCH ×4 (00:36→19:45)
[2019-07-22] MEDS: CHLORHEXIDINE GLUCONATE 15 ML UDC MM SCH ×2 (05:43→17:09)
[2019-07-22] MEDS: JEVITY 1.2 CAL 1,000 ML BOTTLE GT PRN (05:44)
[2019-07-22] MEDS: MAGNESIUM HYDROXIDE 30 ML UDC GT PRN (05:44)
[2019-07-22] MEDS: HYDROGEN PEROXIDE 480 ML BOTTLE TP SCH ×2 (07:22→19:45)
[2019-07-22] MEDS: ACETYLCYSTEINE 10% SOLN 400 MG/4 ML VIAL NEB SCH ×2 (07:22→14:57)
[2019-07-22] MEDS: POTASSIUM CHLORIDE GT SCH (08:03)
[2019-07-22] MEDS: CHOLECALCIFEROL (VITAMIN D 3) 400 UNIT TABLET GT SCH ×2 (08:03→20:42)
[2019-07-22] MEDS: VITS A AND D/WHITE PET/LANOLIN 5 GM PACKET TP SCH ×4 (08:03→20:43)
[2019-07-22] MEDS: FINASTERIDE (5 MG) 5 MG TABLET GT SCH (08:03)
[2019-07-22] MEDS: BIOTIN 5000 MCG GT SCH (08:03)
[2019-07-22] MEDS: VITAMINS A AND D 56.7 GM TUBE TP SCH ×2 (08:03→20:43)
[2019-07-22] MEDS: D MANNOSE 500 MG GT SCH ×2 (08:03→16:48)
[2019-07-22] MEDS: DICLOFENAC TOPICAL 100 GM GEL..GM. TP SCH ×2 (08:03→16:48)
[2019-07-22] MEDS: RIFAXIMIN 550 MG TABLET GT SCH ×2 (08:03→16:48)
[2019-07-22 08:38] VITALS: BP 123/71
[2019-07-22] MEDS: [UNRECOGNIZED DRUG - OTHER] TP SCH ×2 (13:00→20:43)
--- NOTE | 2019-07-22 19:56 | NUR ---
RT NOTE: RECEIVED TRACH PT ON ROOM AIR. PLACED PT ON COOL AEROSOL AT THIS TIME. AMBU BAG @ BEDSIDE. Q6 BREATHING TX GIVEN PER MD ORDERS WITH NO ADVERSE REACTION NOTED. SX DONE PRN. TRACH PATENT AND SECURED. TRACH CARE DONE. NO RESP DISTRESS NOTED AT THIS TIME. WILL CONTINUE TO MONITOR PT Addendum: 07/23/19 at 0113 by LINNEA TOVAR RT Amended: Links added.
[2019-07-22 20:41] VITALS: BP 130/59
[2019-07-22] MEDS: GLYCOPYRROLATE 1 MG TABLET GT PRN (20:43)
[2019-07-22] MEDS: LATANOPROST EYE DROP 0.005% 2.5 ML BOTTLE EACHEYE SCH (21:13)
[2019-07-22] MEDS: BENAZEPRIL HCL 20 MG TABLET GT SCH (21:14)
[2019-07-22] MEDS: PRAVASTATIN SODIUM 20 MG TABLET GT SCH (21:14)
--- NOTE | 2019-07-22 21:47 | NUR ---
NOTIFIED BY RN THAT PATIENT PULLED HIS TRACH OUT. TRACH WAS SUCCESSFULLY PLACED BACK WITH NO BLEEDING. TRACH CARE WAS DONE AT THIS TIME AND SX SMALL AMOUNT OF THICK WHITE SECRETIONS. PT IS IN NO RESP DISTRESS. WILL CONT TO MONITOR PT.
[2019-07-23] MEDS: ACETYLCYSTEINE 10% SOLN 400 MG/4 ML VIAL NEB SCH ×4 (00:27→23:37)
[2019-07-23] MEDS: IPRATROPIUM NEB FS 0.5 MG/2.5 ML AMPUL.NEB NEB SCH ×4 (00:30→19:45)
[2019-07-23] MEDS: CHLORHEXIDINE GLUCONATE 15 ML UDC MM SCH ×2 (05:53→17:00)
[2019-07-23] MEDS: JEVITY 1.2 CAL 1,000 ML BOTTLE GT PRN (05:54)
[2019-07-23 07:31] VITALS: BP 131/77
[2019-07-23] MEDS: HYDROGEN PEROXIDE 480 ML BOTTLE TP SCH ×2 (08:20→21:52)
[2019-07-23] MEDS: D MANNOSE 500 MG GT SCH ×2 (09:13→17:00)
[2019-07-23] MEDS: VITAMINS A AND D 56.7 GM TUBE TP SCH ×2 (09:13→21:52)
[2019-07-23] MEDS: POTASSIUM CHLORIDE GT SCH (09:13)
[2019-07-23] MEDS: DICLOFENAC TOPICAL 100 GM GEL..GM. TP SCH ×2 (09:13→17:00)
[2019-07-23] MEDS: BIOTIN 5000 MCG GT SCH (09:13)
[2019-07-23] MEDS: RIFAXIMIN 550 MG TABLET GT SCH ×2 (09:13→17:00)
[2019-07-23] MEDS: VITS A AND D/WHITE PET/LANOLIN 5 GM PACKET TP SCH ×4 (09:13→21:52)
[2019-07-23] MEDS: FINASTERIDE (5 MG) 5 MG TABLET GT SCH (09:13)
[2019-07-23] MEDS: CHOLECALCIFEROL (VITAMIN D 3) 400 UNIT TABLET GT SCH ×2 (09:13→21:52)
[2019-07-23] MEDS: [UNRECOGNIZED DRUG - OTHER] TP SCH ×2 (13:00→21:52)
[2019-07-23] MEDS: HYDROCODONE/APAP 7.5/325MG 1 EACH TABLET GT PRN (15:26)
[2019-07-23 19:52] VITALS: BP 137/82
[2019-07-23] MEDS: LATANOPROST EYE DROP 0.005% 2.5 ML BOTTLE EACHEYE SCH (21:52)
[2019-07-23] MEDS: BENAZEPRIL HCL 20 MG TABLET GT SCH (21:53)
[2019-07-23] MEDS: PRAVASTATIN SODIUM 20 MG TABLET GT SCH (21:53)
[2019-07-24] MEDS: JEVITY 1.2 CAL 1,000 ML BOTTLE GT PRN (00:54)
[2019-07-24] MEDS: IPRATROPIUM NEB FS 0.5 MG/2.5 ML AMPUL.NEB NEB SCH ×4 (02:08→19:53)
[2019-07-24] MEDS: CHLORHEXIDINE GLUCONATE 15 ML UDC MM SCH ×2 (06:05→17:16)
[2019-07-24 07:47] VITALS: BP 122/69
[2019-07-24] MEDS: HYDROGEN PEROXIDE 480 ML BOTTLE TP SCH ×2 (07:53→21:00)
[2019-07-24] MEDS: ACETYLCYSTEINE 10% SOLN 400 MG/4 ML VIAL NEB SCH ×3 (07:53→23:07)
[2019-07-24] MEDS: POTASSIUM CHLORIDE GT SCH (09:34)
[2019-07-24] MEDS: FINASTERIDE (5 MG) 5 MG TABLET GT SCH (09:34)
[2019-07-24] MEDS: VITS A AND D/WHITE PET/LANOLIN 5 GM PACKET TP SCH ×4 (09:34→21:42)
[2019-07-24] MEDS: BIOTIN 5000 MCG GT SCH (09:34)
[2019-07-24] MEDS: D MANNOSE 500 MG GT SCH ×2 (09:34→17:16)
[2019-07-24] MEDS: CHOLECALCIFEROL (VITAMIN D 3) 400 UNIT TABLET GT SCH ×2 (09:34→21:41)
[2019-07-24] MEDS: RIFAXIMIN 550 MG TABLET GT SCH ×2 (09:34→17:16)
[2019-07-24] MEDS: DICLOFENAC TOPICAL 100 GM GEL..GM. TP SCH ×2 (09:35→17:16)
[2019-07-24] MEDS: VITAMINS A AND D 56.7 GM TUBE TP SCH ×2 (09:35→21:42)
[2019-07-24] MEDS: GLYCOPYRROLATE 1 MG TABLET GT PRN (10:08)
[2019-07-24] MEDS: SUMATRIPTAN SUCCINATE 25 MG TABLET GT PRN (12:14)
[2019-07-24] MEDS: [UNRECOGNIZED DRUG - OTHER] TP SCH ×2 (13:55→21:42)
[2019-07-24 20:50] VITALS: BP 134/89
[2019-07-24] MEDS: PRAVASTATIN SODIUM 20 MG TABLET GT SCH (21:42)
[2019-07-24] MEDS: LATANOPROST EYE DROP 0.005% 2.5 ML BOTTLE EACHEYE SCH (21:42)
[2019-07-24] MEDS: BENAZEPRIL HCL 20 MG TABLET GT SCH (21:42)
[2019-07-24] MEDS: HYDROCODONE/APAP 7.5/325MG 1 EACH TABLET GT PRN (22:40)
[2019-07-25] MEDS: IPRATROPIUM NEB FS 0.5 MG/2.5 ML AMPUL.NEB NEB SCH ×4 (02:29→19:50)
[2019-07-25] MEDS: CHLORHEXIDINE GLUCONATE 15 ML UDC MM SCH ×2 (05:54→18:04)
[2019-07-25 07:58] VITALS: BP 114/62
[2019-07-25] MEDS: ACETYLCYSTEINE 10% SOLN 400 MG/4 ML VIAL NEB SCH (08:16)
[2019-07-25] MEDS: FINASTERIDE (5 MG) 5 MG TABLET GT SCH (09:14)
[2019-07-25] MEDS: POTASSIUM CHLORIDE GT SCH (09:14)
[2019-07-25] MEDS: RIFAXIMIN 550 MG TABLET GT SCH ×2 (09:14→16:52)
[2019-07-25] MEDS: BIOTIN 5000 MCG GT SCH (09:14)
[2019-07-25] MEDS: CHOLECALCIFEROL (VITAMIN D 3) 400 UNIT TABLET GT SCH ×2 (09:14→21:55)
[2019-07-25] MEDS: D MANNOSE 500 MG GT SCH ×2 (09:14→16:52)
[2019-07-25] MEDS: DICLOFENAC TOPICAL 100 GM GEL..GM. TP SCH ×2 (09:15→16:52)
[2019-07-25] MEDS: VITS A AND D/WHITE PET/LANOLIN 5 GM PACKET TP SCH ×4 (09:15→21:55)
[2019-07-25] MEDS: VITAMINS A AND D 56.7 GM TUBE TP SCH ×2 (09:15→21:55)
[2019-07-25] MEDS: HYDROCODONE/APAP 7.5/325MG 1 EACH TABLET GT PRN ×2 (09:16→13:24)
--- NOTE | 2019-07-25 09:20 | NUR ---
Seen and examined by Dr. Mejia, reported today is the last day for Mucomyst order and per RT patient's secretions is thin and there is no need to extend the treatment. NNO given by .
[2019-07-25] MEDS: HYDROGEN PEROXIDE 480 ML BOTTLE TP SCH ×2 (09:33→20:10)
[2019-07-25] MEDS: [UNRECOGNIZED DRUG - OTHER] TP SCH ×2 (13:08→21:55)
--- NOTE | 2019-07-25 14:20 | NUR ---
Resident taken to the bathroom for bowel and bladder elimination, noted to be moaning and holding onto his genitals confirming he is in pain. Upon urinating, noted with dark tea color urine. Resident's daughter Tamara called and spoke with this nurse explaining what his father might be going through, requesting that doctor be notified. Informed daughter that this nurse is in the process of leaving a message to Dr. Edwards, however no response from MD. Spoke with Dr. Edwards's staff who said that Dr. Pendleton is covering for Dr. Edwards's patients. Resident denies any pain after he was able to pass his urine.
--- NOTE | 2019-07-25 14:46 | NUR ---
Notified Dr. Pendleton, covering for Dr. Edwards that patient has a lot of pain when urinating. Patient's would like to know if there is something else that can be done aside from PRN pain medication. New order given to send urine for UA and culture, and Pyridium 200 mg Q8 x 3 days. Order carried out. Resident's informed of new order.
[2019-07-25] MEDS: PHENAZOPYRIDINE HCL 200 MG TABLET PO SCH (18:17)
[2019-07-25 19:33] LABS: APPEARANCE,URINE CLOUDY (CLEAR); BILIRUBIN,URINE NEGATIVE (NEGATIVE); BLOOD, URINE LARGE Ery/uL (NEGATIVE); COLOR,URINE YELLOW (YELLOW); KETONES,URINE NEGATIVE (NEGATIVE); LEUKOCYTE ESTERASE ,URINE LARGE (NEGATIVE); NITRITE, URINE NEGATIVE (NEGATIVE); PROTEIN,URINE 30 mg/dl (NEGATIVE); UGLUCOSE NEGATIVE (NEGATIVE); UROBILINOGEN,URINE 0.2 EU/dL (0.2)
[2019-07-25 19:44] VITALS: BP 134/72
[2019-07-25 19:45] LABS: BACTERIA,URINE 4+ /HPF (None Seen); RBC,URINE 21-50 /HPF (0-2); SQUAMOUS EPITHELIAL CELL,UR Few /HPF (None Seen); WBC,URINE TOO NUMEROUS TO COUN /HPF (0-3)
--- NOTE | 2019-07-25 20:23 | NUR ---
PT RCVD TRACH'D ON COOL AEROSOL WITH CHARTED SETTINGS. PT FRANCIE TX WELL. SX DONE. PT TRACH IS PATENT AND SECURE. AMBU BAG AT BEDSIDE. NO SOB NOTED. Addendum: 07/25/19 at 2022 by LISETH MOCK RT Amended: Links added.
[2019-07-25] MEDS: LATANOPROST EYE DROP 0.005% 2.5 ML BOTTLE EACHEYE SCH (21:55)
[2019-07-25] MEDS: BENAZEPRIL HCL 20 MG TABLET GT SCH (21:58)
[2019-07-25] MEDS: PRAVASTATIN SODIUM 20 MG TABLET GT SCH (21:59)
[2019-07-26] MEDS: IPRATROPIUM NEB FS 0.5 MG/2.5 ML AMPUL.NEB NEB SCH ×4 (01:01→20:04)
[2019-07-26] MEDS: CHLORHEXIDINE GLUCONATE 15 ML UDC MM SCH ×2 (06:21→17:35)
[2019-07-26] MEDS: MAGNESIUM HYDROXIDE 30 ML UDC GT PRN (07:04)
[2019-07-26] MEDS: HYDROGEN PEROXIDE 480 ML BOTTLE TP SCH ×2 (07:31→20:04)
[2019-07-26 07:51] VITALS: BP 121/80
[2019-07-26] MEDS: CHOLECALCIFEROL (VITAMIN D 3) 400 UNIT TABLET GT SCH ×2 (08:25→21:21)
[2019-07-26] MEDS: D MANNOSE 500 MG GT SCH ×2 (08:25→17:35)
[2019-07-26] MEDS: FINASTERIDE (5 MG) 5 MG TABLET GT SCH (08:25)
[2019-07-26] MEDS: RIFAXIMIN 550 MG TABLET GT SCH ×2 (08:25→17:35)
[2019-07-26] MEDS: BIOTIN 5000 MCG GT SCH (08:25)
[2019-07-26] MEDS: POTASSIUM CHLORIDE GT SCH (08:25)
[2019-07-26] MEDS: VITS A AND D/WHITE PET/LANOLIN 5 GM PACKET TP SCH ×4 (08:26→21:21)
[2019-07-26] MEDS: VITAMINS A AND D 56.7 GM TUBE TP SCH ×2 (08:26→21:21)
[2019-07-26] MEDS: DICLOFENAC TOPICAL 100 GM GEL..GM. TP SCH ×2 (08:26→17:35)
[2019-07-26] MEDS: HYDROCODONE/APAP 7.5/325MG 1 EACH TABLET GT PRN (08:27)
--- NOTE | 2019-07-26 08:30 | NUR ---
RT NOTE PATIENT SELF DECANNULATED. RE INSERTED A NEW TRACH PORTEX 6 UNCUFFED WITH NO REDNESS NOTED AND NO BLEEDING. TRACH IS NOW PATENT AND SECURED. SPARE TRACH AND AMBU BAG IS AT BEDSIDE. PATIENT WAS GIVEN PAIN MED. PATIENT IS NOW COMFORTABLE. PATIENT HAS EQUAL CHEST RISE AND CLEAR BILATERAL BREATH SOUNDS. PATIENT IS ON ROOM AIR SATURATION 92 % AND HR 55 BPM AND RR 14 BPM. WILL CONTINUE TO MONITOR.
[2019-07-26] MEDS: PHENAZOPYRIDINE HCL 200 MG TABLET PO SCH ×3 (09:00→17:00)
[2019-07-26] MEDS: [UNRECOGNIZED DRUG - OTHER] TP SCH ×2 (12:25→21:21)
[2019-07-26] MEDS: JEVITY 1.2 CAL 1,000 ML BOTTLE GT PRN (13:42)
[2019-07-26] MEDS: BISACODYL SUPP (10 MG) 10 MG/SUPP.RECT SUPP.RECT RC PRN (15:39)
--- NOTE | 2019-07-26 16:47 | NUR ---
RT NOTE RECEIVED PATIENT ON TRACH WITH COOL AEROSOL. TRACH IS PATENT AND SECURED. SPARE TRACH AND BVM IS AT BEDSIDE. PATIENT HAS EQUAL CHEST RISE WITH CLEAR TO DIMINISHED BILATERAL BREATH SOUNDS. PATIENT IS COMFORTABLE. Q6 BREATHING TREATMENTS GIVEN WITH NO ADVERSE REACTIONS. SUCTION SMALL THIN GREEN/WHITE SECRETIONS THROUGH OUT THE DAY. NO SOB NOTED. Addendum: 07/26/19 at 1648 by JENNY PEOPLES RT Amended: Links added.
[2019-07-26] MEDS: LATANOPROST EYE DROP 0.005% 2.5 ML BOTTLE EACHEYE SCH (21:22)
[2019-07-26] MEDS: PRAVASTATIN SODIUM 20 MG TABLET GT SCH (21:22)
[2019-07-26] MEDS: BENAZEPRIL HCL 20 MG TABLET GT SCH (21:22)
[2019-07-26 21:28] VITALS: BP 141/89
[2019-07-27] MEDS: IPRATROPIUM NEB FS 0.5 MG/2.5 ML AMPUL.NEB NEB SCH ×4 (01:28→20:28)
--- NOTE | 2019-07-27 02:33 | NUR ---
PATIENT RECEIVED ON RA TRACHED THEN PLACED ON 28% AEROSOL T-COLLAR FOR THE NIGHT, TOLERATING WITH NO DISTRESS/SOB NOTED. SUCTIONED FOR MINIMAL, THICK, YELLOW SECRETIONS. GIVEN IN-LINE TREATMENTS WITH NO ADVERSE REACTIONS. AMBU BAG AT BEDSIDE. TRACH CARE DONE. Addendum: 07/27/19 at 0235 by MINOO CORRIGAN RT Amended: Links added.
[2019-07-27] MEDS: CHLORHEXIDINE GLUCONATE 15 ML UDC MM SCH ×2 (05:36→17:51)
[2019-07-27] MEDS: JEVITY 1.2 CAL 1,000 ML BOTTLE GT PRN (05:49)
[2019-07-27 07:51] VITALS: BP 131/71
[2019-07-27] MEDS: POTASSIUM CHLORIDE GT SCH (08:26)
[2019-07-27] MEDS: CHOLECALCIFEROL (VITAMIN D 3) 400 UNIT TABLET GT SCH ×2 (08:26→21:18)
[2019-07-27] MEDS: BIOTIN 5000 MCG GT SCH (08:26)
[2019-07-27] MEDS: D MANNOSE 500 MG GT SCH ×2 (08:26→17:51)
[2019-07-27] MEDS: FINASTERIDE (5 MG) 5 MG TABLET GT SCH (08:26)
[2019-07-27] MEDS: RIFAXIMIN 550 MG TABLET GT SCH ×2 (08:26→17:51)
[2019-07-27] MEDS: PHENAZOPYRIDINE HCL 200 MG TABLET PO SCH ×3 (08:27→17:51)
[2019-07-27] MEDS: VITS A AND D/WHITE PET/LANOLIN 5 GM PACKET TP SCH ×4 (09:00→21:18)
[2019-07-27] MEDS: HYDROGEN PEROXIDE 480 ML BOTTLE TP SCH ×2 (09:00→20:28)
[2019-07-27] MEDS: DICLOFENAC TOPICAL 100 GM GEL..GM. TP SCH ×2 (09:00→17:51)
[2019-07-27] MEDS: VITAMINS A AND D 56.7 GM TUBE TP SCH ×2 (09:00→21:19)
[2019-07-27] MEDS: [UNRECOGNIZED DRUG - OTHER] TP SCH ×2 (13:25→21:18)
[2019-07-27] MEDS: CEPHALEXIN MONOHYDRATE 250 MG/5 ML BOTTLE GT SCH ×2 (13:25→18:39)
--- NOTE | 2019-07-27 14:58 | NUR ---
Relayed urine culture result to Dr Pendleton. He ordered to give Keflex 500 mg GT q 6 hours for 5 days for UTI. Notified pt's .
[2019-07-27 20:40] VITALS: BP 136/54
[2019-07-27] MEDS: GLYCOPYRROLATE 1 MG TABLET GT PRN (21:19)
[2019-07-27] MEDS: LATANOPROST EYE DROP 0.005% 2.5 ML BOTTLE EACHEYE SCH (21:19)
[2019-07-27] MEDS: BENAZEPRIL HCL 20 MG TABLET GT SCH (21:19)
[2019-07-27] MEDS: PRAVASTATIN SODIUM 20 MG TABLET GT SCH (21:19)
[2019-07-27] MEDS: HYDROCODONE/APAP 7.5/325MG 1 EACH TABLET GT PRN (21:20)
[2019-07-28] MEDS: CEPHALEXIN MONOHYDRATE 250 MG/5 ML BOTTLE GT SCH ×4 (00:45→18:15)
[2019-07-28] MEDS: IPRATROPIUM NEB FS 0.5 MG/2.5 ML AMPUL.NEB NEB SCH ×4 (01:48→18:50)
[2019-07-28] MEDS: JEVITY 1.2 CAL 1,000 ML BOTTLE GT PRN ×2 (01:54→22:31)
[2019-07-28] MEDS: CHLORHEXIDINE GLUCONATE 15 ML UDC MM SCH ×2 (06:19→17:13)
[2019-07-28 07:42] VITALS: BP 134/86
[2019-07-28] MEDS: HYDROGEN PEROXIDE 480 ML BOTTLE TP SCH ×2 (09:00→21:00)
[2019-07-28] MEDS: D MANNOSE 500 MG GT SCH ×2 (09:06→17:15)
[2019-07-28] MEDS: BIOTIN 5000 MCG GT SCH (09:07)
[2019-07-28] MEDS: POTASSIUM CHLORIDE GT SCH (09:07)
[2019-07-28] MEDS: FINASTERIDE (5 MG) 5 MG TABLET GT SCH (09:08)
[2019-07-28] MEDS: RIFAXIMIN 550 MG TABLET GT SCH ×2 (09:08→17:13)
[2019-07-28] MEDS: VITAMINS A AND D 56.7 GM TUBE TP SCH ×2 (09:09→21:01)
[2019-07-28] MEDS: PHENAZOPYRIDINE HCL 200 MG TABLET PO SCH ×2 (09:09→12:31)
[2019-07-28] MEDS: VITS A AND D/WHITE PET/LANOLIN 5 GM PACKET TP SCH ×4 (09:09→21:01)
[2019-07-28] MEDS: DICLOFENAC TOPICAL 100 GM GEL..GM. TP SCH ×2 (09:09→17:13)
[2019-07-28] MEDS: CHOLECALCIFEROL (VITAMIN D 3) 400 UNIT TABLET GT SCH ×2 (09:12→21:01)
[2019-07-28] MEDS: [UNRECOGNIZED DRUG - OTHER] TP SCH ×2 (12:32→21:01)
[2019-07-28 20:03] VITALS: BP 142/88
[2019-07-28] MEDS: LATANOPROST EYE DROP 0.005% 2.5 ML BOTTLE EACHEYE SCH (21:01)
[2019-07-28] MEDS: PRAVASTATIN SODIUM 20 MG TABLET GT SCH (21:02)
[2019-07-28] MEDS: HYDROCODONE/APAP 7.5/325MG 1 EACH TABLET GT PRN (21:02)
[2019-07-28] MEDS: BENAZEPRIL HCL 20 MG TABLET GT SCH (21:02)
[2019-07-28] MEDS: GLYCOPYRROLATE 1 MG TABLET GT PRN (22:30)
[2019-07-29] MEDS: CEPHALEXIN MONOHYDRATE 250 MG/5 ML BOTTLE GT SCH ×4 (01:29→18:39)
[2019-07-29] MEDS: IPRATROPIUM NEB FS 0.5 MG/2.5 ML AMPUL.NEB NEB SCH ×4 (01:54→19:32)
[2019-07-29] MEDS: CHLORHEXIDINE GLUCONATE 15 ML UDC MM SCH ×2 (06:17→18:39)
[2019-07-29 08:00] VITALS: BP 142/87
[2019-07-29] MEDS: HYDROGEN PEROXIDE 480 ML BOTTLE TP SCH ×2 (09:00→21:00)
[2019-07-29] MEDS: RIFAXIMIN 550 MG TABLET GT SCH ×2 (09:15→16:27)
[2019-07-29] MEDS: FINASTERIDE (5 MG) 5 MG TABLET GT SCH (09:15)
[2019-07-29] MEDS: CHOLECALCIFEROL (VITAMIN D 3) 400 UNIT TABLET GT SCH ×2 (09:15→21:14)
[2019-07-29] MEDS: VITS A AND D/WHITE PET/LANOLIN 5 GM PACKET TP SCH ×4 (09:15→21:15)
[2019-07-29] MEDS: BIOTIN 5000 MCG GT SCH (09:15)
[2019-07-29] MEDS: POTASSIUM CHLORIDE GT SCH (09:15)
[2019-07-29] MEDS: D MANNOSE 500 MG GT SCH ×2 (09:15→16:27)
[2019-07-29] MEDS: DICLOFENAC TOPICAL 100 GM GEL..GM. TP SCH ×2 (09:18→16:27)
[2019-07-29] MEDS: VITAMINS A AND D 56.7 GM TUBE TP SCH ×2 (09:18→21:15)
[2019-07-29] MEDS: HYDROCODONE/APAP 7.5/325MG 1 EACH TABLET GT PRN (11:11)
[2019-07-29] MEDS: [UNRECOGNIZED DRUG - OTHER] TP SCH ×2 (12:53→21:15)
--- NOTE | 2019-07-29 15:30 | NUR ---
Patient pulled out tracheostomy tube, tracheostomy tube was inserted right away without difficulty, no bleeding, patient tolerated well, saturation ranging between 96-98%, no sob, at the bedside, will continue to monitor patient.
[2019-07-29] MEDS: BISACODYL SUPP (10 MG) 10 MG/SUPP.RECT SUPP.RECT RC PRN (16:11)
[2019-07-29] MEDS: JEVITY 1.2 CAL 1,000 ML BOTTLE GT PRN (18:53)
[2019-07-29 20:24] VITALS: BP 133/85
[2019-07-29] MEDS: LATANOPROST EYE DROP 0.005% 2.5 ML BOTTLE EACHEYE SCH (21:15)
[2019-07-29] MEDS: PRAVASTATIN SODIUM 20 MG TABLET GT SCH (21:15)
[2019-07-29] MEDS: BENAZEPRIL HCL 20 MG TABLET GT SCH (21:15)
[2019-07-30] MEDS: CEPHALEXIN MONOHYDRATE 250 MG/5 ML BOTTLE GT SCH ×4 (01:02→19:00)
[2019-07-30] MEDS: IPRATROPIUM NEB FS 0.5 MG/2.5 ML AMPUL.NEB NEB SCH ×4 (02:13→19:23)
[2019-07-30] MEDS: CHLORHEXIDINE GLUCONATE 15 ML UDC MM SCH ×2 (06:04→17:21)
[2019-07-30 07:24] VITALS: BP 129/58
[2019-07-30] MEDS: VITS A AND D/WHITE PET/LANOLIN 5 GM PACKET TP SCH ×4 (09:00→21:14)
[2019-07-30] MEDS: POTASSIUM CHLORIDE GT SCH (09:00)
[2019-07-30] MEDS: BIOTIN 5000 MCG GT SCH (09:00)
[2019-07-30] MEDS: FINASTERIDE (5 MG) 5 MG TABLET GT SCH (09:00)
[2019-07-30] MEDS: CHOLECALCIFEROL (VITAMIN D 3) 400 UNIT TABLET GT SCH ×2 (09:00→21:13)
[2019-07-30] MEDS: HYDROGEN PEROXIDE 480 ML BOTTLE TP SCH ×2 (09:00→21:00)
[2019-07-30] MEDS: VITAMINS A AND D 56.7 GM TUBE TP SCH ×2 (09:00→21:14)
[2019-07-30] MEDS: D MANNOSE 500 MG GT SCH ×2 (09:00→17:20)
[2019-07-30] MEDS: DICLOFENAC TOPICAL 100 GM GEL..GM. TP SCH ×2 (09:00→17:20)
[2019-07-30] MEDS: RIFAXIMIN 550 MG TABLET GT SCH ×2 (09:00→17:20)
[2019-07-30] MEDS: [UNRECOGNIZED DRUG - OTHER] TP SCH ×2 (12:51→21:13)
[2019-07-30] MEDS: JEVITY 1.2 CAL 1,000 ML BOTTLE GT PRN (14:57)
[2019-07-30 19:52] VITALS: BP 134/82
[2019-07-30] MEDS: PRAVASTATIN SODIUM 20 MG TABLET GT SCH (21:14)
[2019-07-30] MEDS: BENAZEPRIL HCL 20 MG TABLET GT SCH (21:14)
[2019-07-30] MEDS: LATANOPROST EYE DROP 0.005% 2.5 ML BOTTLE EACHEYE SCH (21:14)
[2019-07-31] MEDS: CEPHALEXIN MONOHYDRATE 250 MG/5 ML BOTTLE GT SCH ×4 (00:11→18:01)
[2019-07-31] MEDS: IPRATROPIUM NEB FS 0.5 MG/2.5 ML AMPUL.NEB NEB SCH ×4 (01:35→19:42)
[2019-07-31] MEDS: CHLORHEXIDINE GLUCONATE 15 ML UDC MM SCH ×2 (05:51→17:11)
[2019-07-31 07:35] VITALS: BP 116/77
[2019-07-31] MEDS: HYDROGEN PEROXIDE 480 ML BOTTLE TP SCH ×2 (08:07→20:13)
[2019-07-31] MEDS: VITS A AND D/WHITE PET/LANOLIN 5 GM PACKET TP SCH ×4 (08:46→20:35)
[2019-07-31] MEDS: VITAMINS A AND D 56.7 GM TUBE TP SCH ×2 (08:46→20:35)
[2019-07-31] MEDS: DICLOFENAC TOPICAL 100 GM GEL..GM. TP SCH ×2 (08:46→17:11)
[2019-07-31] MEDS: CHOLECALCIFEROL (VITAMIN D 3) 400 UNIT TABLET GT SCH ×2 (08:46→20:34)
[2019-07-31] MEDS: D MANNOSE 500 MG GT SCH ×2 (08:47→17:11)
[2019-07-31] MEDS: BIOTIN 5000 MCG GT SCH (08:47)
[2019-07-31] MEDS: POTASSIUM CHLORIDE GT SCH (08:47)
[2019-07-31] MEDS: FINASTERIDE (5 MG) 5 MG TABLET GT SCH (08:48)
[2019-07-31] MEDS: RIFAXIMIN 550 MG TABLET GT SCH ×2 (08:48→17:11)
--- NOTE | 2019-07-31 10:44 | NUR ---
RT NOTE RECEIVED PATIENT ON TRACH WITH COOL AEROSOL. TRACH IS PATENT AND SECURED. SPARE TRACH AND BVM IS AT BEDSIDE. PATIENT HAS EQUAL CHEST RISE AND CLEAR UPPER AND DIMINISHED LOWER BILATERAL BREATH SOUNDS. SUCTION SMALL AMOUNT OF WHITE THIN SECRETIONS. PATIENT IS COMFORTABLE. WILL CONTINUE TO MONITOR. Addendum: 07/31/19 at 1045 by JENNY PEOPLES RT Amended: Links added.
[2019-07-31] MEDS: HYDROCODONE/APAP 7.5/325MG 1 EACH TABLET GT PRN (11:23)
[2019-07-31] MEDS: [UNRECOGNIZED DRUG - OTHER] TP SCH ×2 (13:17→20:34)
[2019-07-31] MEDS: JEVITY 1.2 CAL 1,000 ML BOTTLE GT PRN (15:27)
[2019-07-31 20:00] VITALS: BP 146/91
[2019-07-31] MEDS: LATANOPROST EYE DROP 0.005% 2.5 ML BOTTLE EACHEYE SCH (20:35)
--- NOTE | 2019-07-31 20:56 | NUR ---
PT RCVD TRACH'D ON COOL AEROSOL WITH CHARTED SETTINGS. PT FRANCIE TX WELL. SX DONE. PT TRACH IS PATENT AND SECURE. AMBU BAG AT BEDSIDE. NO SOB NOTED. Addendum: 07/31/19 at 2055 by LISETH MOCK RT Amended: Links added.
[2019-07-31] MEDS: BENAZEPRIL HCL 20 MG TABLET GT SCH (21:42)
[2019-07-31] MEDS: PRAVASTATIN SODIUM 20 MG TABLET GT SCH (21:42)
[2019-08-01] MEDS: CEPHALEXIN MONOHYDRATE 250 MG/5 ML BOTTLE GT SCH ×2 (00:03→05:49)
[2019-08-01] MEDS: IPRATROPIUM NEB FS 0.5 MG/2.5 ML AMPUL.NEB NEB SCH ×4 (00:52→19:56)
[2019-08-01] MEDS: CHLORHEXIDINE GLUCONATE 15 ML UDC MM SCH ×2 (05:46→18:12)
[2019-08-01] MEDS: JEVITY 1.2 CAL 1,000 ML BOTTLE GT PRN (05:49)
[2019-08-01 07:33] VITALS: BP 147/92
[2019-08-01] MEDS: HYDROGEN PEROXIDE 480 ML BOTTLE TP SCH ×2 (08:37→21:00)
[2019-08-01] MEDS: D MANNOSE 500 MG GT SCH ×2 (08:57→16:43)
[2019-08-01] MEDS: BIOTIN 5000 MCG GT SCH (08:57)
[2019-08-01] MEDS: RIFAXIMIN 550 MG TABLET GT SCH ×2 (08:57→16:43)
[2019-08-01] MEDS: VITAMINS A AND D 56.7 GM TUBE TP SCH ×2 (08:57→20:42)
[2019-08-01] MEDS: POTASSIUM CHLORIDE GT SCH (08:57)
[2019-08-01] MEDS: VITS A AND D/WHITE PET/LANOLIN 5 GM PACKET TP SCH ×4 (08:57→20:42)
[2019-08-01] MEDS: FINASTERIDE (5 MG) 5 MG TABLET GT SCH (08:57)
[2019-08-01] MEDS: DICLOFENAC TOPICAL 100 GM GEL..GM. TP SCH ×2 (08:57→16:43)
[2019-08-01] MEDS: CHOLECALCIFEROL (VITAMIN D 3) 400 UNIT TABLET GT SCH ×2 (08:57→20:41)
[2019-08-01] MEDS: [UNRECOGNIZED DRUG - OTHER] TP SCH ×2 (13:17→20:42)
[2019-08-01 19:54] VITALS: BP 135/86
[2019-08-01] MEDS: LATANOPROST EYE DROP 0.005% 2.5 ML BOTTLE EACHEYE SCH (21:34)
[2019-08-01] MEDS: BENAZEPRIL HCL 20 MG TABLET GT SCH (21:35)
[2019-08-01] MEDS: PRAVASTATIN SODIUM 20 MG TABLET GT SCH (21:35)
[2019-08-02] MEDS: IPRATROPIUM NEB FS 0.5 MG/2.5 ML AMPUL.NEB NEB SCH ×4 (01:37→19:22)
[2019-08-02] MEDS: JEVITY 1.2 CAL 1,000 ML BOTTLE GT PRN (03:56)
[2019-08-02] MEDS: CHLORHEXIDINE GLUCONATE 15 ML UDC MM SCH ×2 (05:41→17:22)
[2019-08-02 07:59] VITALS: BP 132/71
[2019-08-02] MEDS: HYDROGEN PEROXIDE 480 ML BOTTLE TP SCH ×2 (08:15→19:23)
[2019-08-02] MEDS: RIFAXIMIN 550 MG TABLET GT SCH ×2 (09:00→17:22)
[2019-08-02] MEDS: POTASSIUM CHLORIDE GT SCH (09:00)
[2019-08-02] MEDS: BIOTIN 5000 MCG GT SCH (09:00)
[2019-08-02] MEDS: DICLOFENAC TOPICAL 100 GM GEL..GM. TP SCH ×2 (09:00→17:22)
[2019-08-02] MEDS: D MANNOSE 500 MG GT SCH ×2 (09:00→17:22)
[2019-08-02] MEDS: VITS A AND D/WHITE PET/LANOLIN 5 GM PACKET TP SCH ×4 (09:00→20:54)
[2019-08-02] MEDS: VITAMINS A AND D 56.7 GM TUBE TP SCH ×2 (09:00→20:54)
[2019-08-02] MEDS: FINASTERIDE (5 MG) 5 MG TABLET GT SCH (09:00)
[2019-08-02] MEDS: CHOLECALCIFEROL (VITAMIN D 3) 400 UNIT TABLET GT SCH ×2 (09:00→20:53)
[2019-08-02] MEDS: [UNRECOGNIZED DRUG - OTHER] TP SCH ×2 (12:11→20:53)
[2019-08-02] MEDS: HYDROCODONE/APAP 7.5/325MG 1 EACH TABLET GT PRN (17:23)
[2019-08-02 20:25] VITALS: BP 116/78
[2019-08-02] MEDS: GLYCOPYRROLATE 1 MG TABLET GT PRN (20:54)
[2019-08-02] MEDS: BENAZEPRIL HCL 20 MG TABLET GT SCH (21:41)
[2019-08-02] MEDS: LATANOPROST EYE DROP 0.005% 2.5 ML BOTTLE EACHEYE SCH (21:41)
[2019-08-02] MEDS: PRAVASTATIN SODIUM 20 MG TABLET GT SCH (21:42)
[2019-08-03] MEDS: IPRATROPIUM NEB FS 0.5 MG/2.5 ML AMPUL.NEB NEB SCH (02:01)
[2019-08-03] MEDS: JEVITY 1.2 CAL 1,000 ML BOTTLE GT PRN (05:28)
[2019-08-03] MEDS: CHLORHEXIDINE GLUCONATE 15 ML UDC MM SCH (05:28)
--- NOTE | 2019-08-03 05:45 | NUR ---
PATIENT RECEIVED ON ROOM AIR TRACHED THEN PLACED ON 28% AEROSOL T-COLLAR FOR THE NIGHT. SUCTIONED FOR MINIMAL, THIN, WHITE SECRETIONS. GIVEN IN-LINE TREATMENTS WITH NO ADVERSE REACTIONS. AMBU BAG AT BEDSIDE. TRACH CARE DONE. Addendum: 08/03/19 at 0546 by MINOO CORRIGAN RT Amended: Links added.
[2019-08-03 07:45] VITALS: BP 130/76
== END 2019-08-01 23:59 | disposition still patient (30) | DRG 189 ==
LOC: SA
PROVIDERS: ADMIT Internal Medicine; ATTEND Internal Medicine
DX: J96.11 Chronic respiratory failure with hypoxia (principal); J18.9 Pneumonia, unspecified organism; G93.40 Encephalopathy, unspecified; R64 Cachexia; E87.1 Hypo-osmolality and hyponatremia; N13.8 Other obstructive and reflux uropathy; R44.3 Hallucinations, unspecified; N39.0 Urinary tract infection, site not specified; I11.0 Hypertensive heart disease with heart failure; Z93.0 Tracheostomy status; D69.6 Thrombocytopenia, unspecified; D73.81 Neutropenic splenomegaly; G40.409 Other generalized epilepsy and epileptic syndromes, not intractable, without status epilepticus; K31.84 Gastroparesis; I50.9 Heart failure, unspecified; I49.5 Sick sinus syndrome; R13.10 Dysphagia, unspecified; N13.9 Obstructive and reflux uropathy, unspecified; K75.81 Nonalcoholic steatohepatitis (NASH); I25.10 Atherosclerotic heart disease of native coronary artery without angina pectoris; Z86.73 Personal history of transient ischemic attack (TIA), and cerebral infarction without residual deficits; R53.81 Other malaise; I73.9 Peripheral vascular disease, unspecified; L60.3 Nail dystrophy; A60.00 Herpesviral infection of urogenital system, unspecified; C44.91 Basal cell carcinoma of skin, unspecified; D64.9 Anemia, unspecified; D72.819 Decreased white blood cell count, unspecified; E55.9 Vitamin D deficiency, unspecified; F02.80 Dementia in other diseases classified elsewhere, unspecified severity, without behavioral disturbance, psychotic disturbance, mood disturbance, and anxiety; G43.909 Migraine, unspecified, not intractable, without status migrainosus; I48.0 Paroxysmal atrial fibrillation; K40.90 Unilateral inguinal hernia, without obstruction or gangrene, not specified as recurrent; T40.605A Adverse effect of unspecified narcotics, initial encounter; K59.03 Drug induced constipation; Y92.89 Other specified places as the place of occurrence of the external cause; N40.1 Benign prostatic hyperplasia with lower urinary tract symptoms; Z93.1 Gastrostomy status; Z68.26 Body mass index [BMI] 26.0-26.9, adult; R32 Unspecified urinary incontinence; M19.90 Unspecified osteoarthritis, unspecified site; K64.8 Other hemorrhoids; L97.529 Non-pressure chronic ulcer of other part of left foot with unspecified severity; W34.00XS Accidental discharge from unspecified firearms or gun, sequela; S06.9X0S Unspecified intracranial injury without loss of consciousness, sequela; K74.60 Unspecified cirrhosis of liver; D63.8 Anemia in other chronic diseases classified elsewhere; K59.09 Other constipation; Z82.49 Family history of ischemic heart disease and other diseases of the circulatory system; Z87.440 Personal history of urinary (tract) infections; Z90.79 Acquired absence of other genital organ(s); R26.2 Difficulty in walking, not elsewhere classified; R44.1 Visual hallucinations; F03.90 Unspecified dementia, unspecified severity, without behavioral disturbance, psychotic disturbance, mood disturbance, and anxiety; B96.20 Unspecified Escherichia coli [E. coli] as the cause of diseases classified elsewhere; J20.9 Acute bronchitis, unspecified; R14.0 Abdominal distension (gaseous)
CPT/HCPCS: 31720; 36415; 71045-TC; 80048-TC; 80053-TC; 81000-TC; 82140-TC; 82962-TC; 84443-TC; 85025-TC; 86580-TC; 87040-TC; 87086-TC; 87186-TC; 94640-TC; 94760-TC; 94799-TC; 99082-TC; A4217; A4623; A4624; A6253; A7526; G0008; L8501; Q2036

== ENCOUNTER 2019-04-07 15:50 | Inpatient (IN) | payer MEDICARE, OTHER ==
[~2019-04-07] VITALS: Ht 180.3 cm; Wt 78.9 kg
--- NOTE | 2019-04-07 15:54 | NUR ---
PT TRANSFERRED FROM SUB ACUTE FOR FEVER AND WEAKNESS X 8 DAYS, PT IS AAOX0 WITHDRAWS TO PAIN, NOT IN RESPIRATORY DISTRESS, HOOKED TO MONITOR, KEPT RESTED AND COMFORTABLE, WILL CONTINUE TO MONITOR.
--- NOTE | 2019-04-07 16:15 | NUR ---
SEEN AND EXAMINED BY .
--- NOTE | 2019-04-07 16:20 | NUR ---
IV LINE ESTABLISHED, BLOOD DRAWNED AND SENT TO LAB.
[2019-04-07] MEDS ORDERED: IV NS 0.9% 1,000 ML BAG IV ONE (16:30)
[2019-04-07] MEDS ORDERED: ACETAMINOPHEN 650 MG/SUPP.RECT RC ONE ×2 (16:30→16:44)
[2019-04-07] MEDS ORDERED: PIPERACILLIN /TAZOBACTAM 3.375 G in IV D5W 50 ML IV ONE (16:30)
[2019-04-07] MEDS ORDERED: VANCOMYCIN 1 GM in IV D5W 250 ML IV ONE (16:30)
--- NOTE | 2019-04-07 16:30 | NUR ---
URINE SPECIMEN COLLECTED AND SENT TO LAB.
[2019-04-07] MEDS ORDERED: LORA10TA7 GT (16:31)
[2019-04-07] MEDS ORDERED: METO5SOL GT (16:31)
[2019-04-07] MEDS ORDERED: RIFA550T GT (16:31)
[2019-04-07] MEDS ORDERED: DICL100G16 TP (16:31)
[2019-04-07] MEDS ORDERED: CHOL400T11 GT (16:31)
[2019-04-07] MEDS ORDERED: ACET-868 GT (16:31)
[2019-04-07] MEDS ORDERED: NITR0.4T48 SL (16:31)
[2019-04-07] MEDS ORDERED: VITA56.7 TP (16:31)
[2019-04-07] MEDS ORDERED: ONDA4TAB5 GT (16:31)
[2019-04-07] MEDS ORDERED: BENA20TA9 GT (16:31)
[2019-04-07] MEDS ORDERED: FINA5TAB11 GT (16:31)
[2019-04-07] MEDS ORDERED: LATA2.5D7 EACHEYE (16:31)
[2019-04-07] MEDS ORDERED: HYDR1SOL TP (16:31)
[2019-04-07] MEDS ORDERED: PRAV20TA4 GT (16:31)
[2019-04-07] MEDS ORDERED: GLYC2TAB21 GT (16:31)
[2019-04-07] MEDS ORDERED: POTA20LI5 GT (16:31)
[2019-04-07] MEDS ORDERED: SUMA100T16 GT (16:31)
[2019-04-07] MEDS ORDERED: ALBU1.257 IH (16:31)
[2019-04-07] MEDS ORDERED: BISA10SU12 RC (16:31)
[2019-04-07] MEDS ORDERED: BIOT25008 GT (16:31)
[2019-04-07] MEDS ORDERED: IPRA0.2S9 IH ×2 (16:31)
[2019-04-07] MEDS ORDERED: HYDR-3976 GT (16:31)
[2019-04-07 16:34] LABS: BASOPHILS # (AUTO) 0.1 /CMM (0.0-0.2); BASOPHILS % (AUTO) 0.6 % (0.0-2.0); EOSINOPHILS % (AUTO) 0.1 % (0.0-6.0); HEMATOCRIT 48 % (39-51); HEMOGLOBIN 16.2 g/dL (13.5-17.5); LYMPHOCYTES # (AUTO) 1.1 /CMM (0.8-4.8); LYMPHOCYTES % (AUTO) 6.5 % (20.0-44.0); MEAN CORPUSCULAR HGB CONC 34 g/dl (31.0-36.0); MEAN CORPUSCULAR VOLUME 98 fL (80-96); MONOCYTES # (AUTO) 0.8 /CMM (0.1-1.30); MONOCYTES % (AUTO) 4.4 % (2.0-12.0); NEUTROPHILS # (AUTO) 15.2 /CMM (1.8-8.9); NEUTROPHILS % (AUTO) 88.4 % (43.0-81.0); PLATELET COUNT (AUTO) 141 /CMM (150-450); RED BLOOD CELL COUNT(AUTO) 4.89 MIL/uL (4.5-6.0); WHITE BLOOD COUNT (AUTO) 17.2 K/uL (4.3-11.0)
--- NOTE | 2019-04-07 16:38 | NUR ---
ORAL PATHOLOGIST AT BEDSIDE FOR XRAY.
[2019-04-07 16:40] LABS: APPEARANCE,URINE Cloudy (CLEAR); BILIRUBIN,URINE SMALL (NEGATIVE); BLOOD, URINE Moderate Ery/uL (NEGATIVE); COLOR,URINE Yellow (YELLOW); KETONES,URINE Negative (NEGATIVE); LEUKOCYTE ESTERASE ,URINE Small (NEGATIVE); NITRITE, URINE Negative (NEGATIVE); PROTEIN,URINE 100 mg/dl (NEGATIVE); UGLUCOSE Negative (NEGATIVE)
[2019-04-07 16:43] LABS: CALCIUM, SERUM 8.9 mg/dL (8.5-10.1); CREATININE 1.1 mg/dL (0.6-1.3); POTASSIUM 4.5 mmol/L (3.5-5.1)
[2019-04-07] MEDS ORDERED: ACETAMINOPHEN 120 MG/SUPP.RECT RC ONE (16:44)
[2019-04-07 16:49] LABS: ALBUMIN 2.5 g/dL (3.4-5.0); BILIRUBIN,DIRECT 0.2 mg/dL (0.0-0.2); BILIRUBIN,TOTAL 0.8 mg/dL (0.2-1.0)
[2019-04-07 16:58] LABS: BACTERIA,URINE 1+ /HPF (None Seen); SQUAMOUS EPITHELIAL CELL,UR Few /HPF (None Seen)
--- NOTE | 2019-04-07 18:06 | NUR ---
CALLED CARDIO IT DR. MORROW
[2019-04-07] MEDS ORDERED: ASPIRIN 300 MG/SUPP.RECT RC ONE ×2 (19:00→19:08)
--- NOTE | 2019-04-07 19:40 | NUR ---
PT RECEIVED FROM PATTI RN FOR BULMARO. PT IN BED, NO DISTRESS NOTED
--- NOTE | 2019-04-07 19:46 | NUR ---
CALLED CK BARREL BUILDER [phone]
--- NOTE | 2019-04-07 20:12 | NUR ---
bed assigned 105
--- NOTE | 2019-04-07 20:28 | NUR ---
REPORT GIVEN TO SOLE DOOLEY FOR BULMARO. PT TO 105
--- NOTE | 2019-04-07 21:06 | NUR ---
ROVING TESTER LABORATORYDRUG AND ALCOHOL COUNSELOR RECEIVED PATIENT FROM ER BY MEET WITH ADMITTING DIAGNOSIS UTI/ SEPSIS. PATIENT IS NON VERBAL, OPENS EYES. NO ACUTE DISTRESS NOTED. NO FACIAL GRIMACING OR ANY SIGNS OF PAIN. ON COOL AEROSOL 5LPM FIO2 28%, SATURATING WELL. ON TELE MONITOR SINUS RHYTHM HR OF 74. PATIENT HAS AN IV ON RIGHT ANTECUBITAL GAUGE 18 FLUSHING WELL NO SIGNS OF INFILTRATION. PERTINENT ASSESSMENT DONE. REDNESS NOTED ON PENIS, PICTURE TAKEN AND PLACES ON CHART. ADMISSION ORDERS GIVEN BY DR. BYRNE, WITH READ BACK COMPLETED, ORDERS CARRIED OUT AND DONE. KEPT CLEAN AND COMFORTABLE. WILL CONTINUE TO MONITOR PATIENT.
--- NOTE | 2019-04-07 21:09 | NUR ---
pPT TRANSPORTED TO UNIT ON GURNEY WITH EMT AND RN AT BEDSIDE W/ ACLS PROTOCOL. NAD NOTED DURING TRANSPORT.
[2019-04-07 22:04] VITALS: BP 97/62
[2019-04-07 22:20] VITALS: BP 97/62
[2019-04-07] MEDS: IV D5/0.45 NACL 1,000 ML IV PRN (23:25)
[2019-04-08] MEDS ORDERED: PIPERACILLIN /TAZOBACTAM 2.25 G in IV D5W 50 ML IV SCH ×2
[2019-04-08] MEDS ORDERED: PIPERACILLIN /TAZOBACTAM 2.25 G VIAL IV ONE ×2 (00:29→04:20)
[2019-04-08] MEDS: PIPERACILLIN /TAZOBACTAM 2.25 G in IV D5W 50 ML IV SCH ×2 (00:33→06:08)
[2019-04-08] MEDS ORDERED: VANCOMYCIN 1 GM VIAL ONE (04:20)
[2019-04-08] MEDS ORDERED: VANCOMYCIN 1 GM in IV D5W 250ml IV ONE (05:00)
[2019-04-08 06:51] LABS: CALCIUM, SERUM 7.9 mg/dL (8.5-10.1); POTASSIUM 3.5 mmol/L (3.5-5.1)
[2019-04-08 06:52] LABS: BASOPHILS % (AUTO) 0.3 % (0.0-2.0); HEMATOCRIT 41 % (39-51); HEMOGLOBIN 13.7 g/dL (13.5-17.5); LYMPHOCYTES # (AUTO) 1.5 /CMM (0.8-4.8); LYMPHOCYTES % (AUTO) 12.3 % (20.0-44.0); MEAN CORPUSCULAR HGB CONC 34 g/dl (31.0-36.0); MEAN CORPUSCULAR VOLUME 98 fL (80-96); MONOCYTES # (AUTO) 0.9 /CMM (0.1-1.30); NEUTROPHILS # (AUTO) 9.8 /CMM (1.8-8.9); NEUTROPHILS % (AUTO) 79.4 % (43.0-81.0); PLATELET COUNT (AUTO) 125 /CMM (150-450); RED BLOOD CELL COUNT(AUTO) 4.13 MIL/uL (4.5-6.0); WHITE BLOOD COUNT (AUTO) 12.3 K/uL (4.3-11.0)
--- NOTE | 2019-04-08 07:28 | NUR ---
SENIOR LABEL SPECIALIST NOTE: NO CHANGES NOTED THROUGHOUT THE SHIFT. NO APPARENT DISTRESS NOTED. NO FACIAL GRIMACING OR ANY SIGNS OF PAIN NOTED. ON TELE MONITOR SINUS RHYTHM HR 61BPM. IV ON RIGHT ANTECUBITAL #18 INTACT AND PATENT, IVF INFUSING WELL. KEPT CLEAN, DRY AND COMFORTABLE. SAFETY AND FALL PRECAUTIONS OBSERVED AND MAINTAINED. ENDORSED TO DAY SHIFT FOR CONTINUITY OF CARE.
[2019-04-08 08:00] VITALS: BP 106/60
[2019-04-08] MEDS ORDERED: FEE PK DOSING 1 MIN EA MC ONE (08:21)
--- NOTE | 2019-04-08 09:46 | NUR ---
rn notes 0730-received patient from rn. patient opens eyes to voice, follows 1 simple command this time. no sign of pain. trach care done, suctioned secretions. IVF infusing well via peripheral IV line. PEG tube clamped, patent 0930-patient visits, updated her of patient status.continue monitor patient status
[2019-04-08] MEDS: PIPERACILLIN /TAZOBACTAM 3.375 G in IV D5W 100 ML IV SCH ×2 (11:04→20:21)
[2019-04-08 12:00] VITALS: BP 135/71
--- NOTE | 2019-04-08 13:42 | NUR ---
rn notes 1200-patient at bedside, very much involved in care. patient suctioned safely.secretions suctioned from trache.
[2019-04-08 16:00] VITALS: BP 141/75
[2019-04-08 16:53] LABS: APPEARANCE,URINE SL CLOUDY (CLEAR); BILIRUBIN,URINE NEGATIVE (NEGATIVE); BLOOD, URINE 2+ Ery/uL (NEGATIVE); COLOR,URINE YELLOW (YELLOW); KETONES,URINE NEGATIVE (NEGATIVE); LEUKOCYTE ESTERASE ,URINE 2+ (NEGATIVE); NITRITE, URINE POSITIVE (NEGATIVE); PROTEIN,URINE TRACE mg/dl (NEGATIVE); UGLUCOSE NEGATIVE (NEGATIVE); UROBILINOGEN,URINE 0.2 EU/dL (0.2)
[2019-04-08] MEDS: VANCOMYCIN 1 GM in IV D5W 250ml IV SCH (16:58)
[2019-04-08] MEDS ORDERED: IPRATROPIUM NEB FS 0.5 MG/2.5 ML AMPUL.NEB IH PRN (17:00)
[2019-04-08] MEDS: RIFAXIMIN 550 MG TABLET GT SCH (17:00)
[2019-04-08] MEDS ORDERED: VANCOMYCIN 1 GM in IV D5W 250 ML IV SCH (17:00)
[2019-04-08] MEDS ORDERED: MAGNESIUM HYDROXIDE 30 ML UDC GT PRN (17:00)
[2019-04-08] MEDS ORDERED: ALBUTEROL HALF STRENGTH 1.25 MG/3 ML VIAL.NEB IH PRN (17:00)
[2019-04-08 17:09] LABS: BACTERIA,URINE 3+ /HPF (None Seen); SQUAMOUS EPITHELIAL CELL,UR 0-2 /HPF (None Seen)
[2019-04-08] MEDS: ACETAMINOPHEN 325 MG TABLET PO PRN (18:03)
[2019-04-08] MEDS: JEVITY 1.2 CAL 1,000 ML BOTTLE GT PRN (18:35)
[2019-04-08 19:32] LABS: BASOPHILS # (AUTO) 0.1 /CMM (0.0-0.2); BASOPHILS % (AUTO) 0.9 % (0.0-2.0); CALCIUM, SERUM 7.8 mg/dL (8.5-10.1); CREATININE 0.9 mg/dL (0.6-1.3); EOSINOPHILS % (AUTO) 2.3 % (0.0-6.0); HEMATOCRIT 43 % (39-51); HEMOGLOBIN 14.4 g/dL (13.5-17.5); LYMPHOCYTES # (AUTO) 1.1 /CMM (0.8-4.8); LYMPHOCYTES % (AUTO) 13.8 % (20.0-44.0); MEAN CORPUSCULAR HGB CONC 34 g/dl (31.0-36.0); MEAN CORPUSCULAR VOLUME 99 fL (80-96); MONOCYTES # (AUTO) 0.6 /CMM (0.1-1.30); MONOCYTES % (AUTO) 7.5 % (2.0-12.0); NEUTROPHILS # (AUTO) 5.9 /CMM (1.8-8.9); NEUTROPHILS % (AUTO) 75.5 % (43.0-81.0); PLATELET COUNT (AUTO) 122 /CMM (150-450); POTASSIUM 3.6 mmol/L (3.5-5.1); RED BLOOD CELL COUNT(AUTO) 4.29 MIL/uL (4.5-6.0); WHITE BLOOD COUNT (AUTO) 7.9 K/uL (4.3-11.0)
--- NOTE | 2019-04-08 19:36 | NUR ---
rn notes 1700-seen by Dr. Allan MD with orders, he also spoke to patient .urine specimen recollected as ordered by MD, informed 1900-feedings started as ordered. report given to rn for further care
[2019-04-08] MEDS: IPRATROPIUM NEB FS 0.5 MG/2.5 ML AMPUL.NEB IH SCH (19:50)
[2019-04-08 20:00] VITALS: BP 135/84
--- NOTE | 2019-04-08 20:00 | NUR ---
RADIOLOGY THERAPIST NOTE PATIENT IS NON VERBAL RESTING WITH HOB ELEVATED, NO CARDIAC OR RESPIRATORY DISTRESS NOTED, FAMILY AT BEDSIDE, SR ON MONITOR, NO PAIN NOTED VIA FLACC, SKIN KEPT CLEAN AND DRY, RAC#18G WITH D51/2NS AT 50 ML/HR AND LFA 20G SL, BOTH IV PATENT FLUSHING WELL, JEVITY AT 60 ML/HR, TOLERATING WELL, WILL CONTINUE TO MONITOR FOR RESIDUAL, SAFETY MAINTAINED AT ALL TIMES, BED IN LOW LOCKED POSITION, CALL LIGHT WITHIN REACH, WILL CONTINUE TO MONITOR FOR ANY CHANGES.
[2019-04-08] MEDS: BENAZEPRIL HCL 20 MG TABLET GT SCH (21:58)
[2019-04-08] MEDS: LATANOPROST EYE DROP 0.005% 2.5 ML BOTTLE EACHEYE SCH (21:59)
[2019-04-09] VITALS: BP 132/78
[2019-04-09] MEDS ORDERED: HYDROCODONE/APAP 5/325MG 1 EACH TABLET PO PRN (00:30)
--- NOTE | 2019-04-09 00:30 | NUR ---
FORKLIFT WHEEL LOADER NOTE PT IS REQUESTING NORCO 5/325MG FOR PAIN MGT, PT RESTLESS AFTER SUCTION, CALL TO ONCALL PROVIDER, LIONEL MAR, ORDER FOR ONE TIME DOSE OF NORCO 5/325 FOR PAIN.
[2019-04-09] MEDS: IPRATROPIUM NEB FS 0.5 MG/2.5 ML AMPUL.NEB IH SCH ×4 (01:06→19:44)
[2019-04-09 04:00] VITALS: BP 123/77
[2019-04-09] MEDS: PIPERACILLIN /TAZOBACTAM 3.375 G in IV D5W 100 ML IV SCH ×3 (04:12→20:03)
[2019-04-09 04:54] LABS: BASOPHILS % (AUTO) 0.6 % (0.0-2.0); EOSINOPHILS % (AUTO) 3.1 % (0.0-6.0); HEMATOCRIT 43 % (39-51); HEMOGLOBIN 14.5 g/dL (13.5-17.5); LYMPHOCYTES # (AUTO) 1.2 /CMM (0.8-4.8); LYMPHOCYTES % (AUTO) 15.5 % (20.0-44.0); MEAN CORPUSCULAR HGB CONC 34 g/dl (31.0-36.0); MEAN CORPUSCULAR VOLUME 98 fL (80-96); MONOCYTES # (AUTO) 0.6 /CMM (0.1-1.30); MONOCYTES % (AUTO) 7.9 % (2.0-12.0); NEUTROPHILS # (AUTO) 5.4 /CMM (1.8-8.9); NEUTROPHILS % (AUTO) 72.9 % (43.0-81.0); PLATELET COUNT (AUTO) 126 /CMM (150-450); RED BLOOD CELL COUNT(AUTO) 4.32 MIL/uL (4.5-6.0); WHITE BLOOD COUNT (AUTO) 7.5 K/uL (4.3-11.0)
[2019-04-09 05:00] LABS: CREATININE 0.9 mg/dL (0.6-1.3); POTASSIUM 3.6 mmol/L (3.5-5.1)
[2019-04-09] MEDS: VANCOMYCIN 1 GM in IV D5W 250ml IV SCH (05:30)
--- NOTE | 2019-04-09 07:30 | NUR ---
RN NOTES RECEIVED PATIENT IN BED, WITH SPONTANEOUS EYE OPENING. NON VERBAL BUT ABLE TO RESPOND THROUGH GESTURES. PATIENT WITH TRACH MASK WITH OXYGEN AT 5LPM. NO INDICATION OF PAIN NOTED AT THIS TIME. PATIENT SINUS DAYNA WITH HR ON THE 55 ON THE MONITOR. WITH ONGOING GTF OF JEVITY 1.2 AT 10CC AT THIS TIME, GOAL AT 60 CC. PER REPORT PATIENT HAD AN EPISODE OF GASTRIC RESIDUAL AT 300CC. PLACEMENT VERIFIED BY AUSCULTATING, WILL RECHECK RESIDUAL IN A LITTLE WHILE. HOB KEPT ELEVATED FOR ASPIRATION PRECAUTION. SAFETY MEASURES OBSERVED AND MAINTAINED. SRX2 RAISED. BED LOW AD LOCKED POSITION. BED ALARM ON. CALL LIGHT PLACED WITHIN REACH. WILL CONTINUE TO MONITOR PATIENT AND ANTICIPATE NEEDS Addendum: 04/09/19 at 0822 by ODALYS RONDON RN NOTED IV LINE ON THE LFA G 20 AND RAC G 18, BOTH IN PLACE, DRESSING INTACT. FLUSHES WELL. NO SIGN OF INFECTION AND INFILTRATION. VANCOMYCIN AND ZOSYN BOTH INFUSING AT THIS TIME
--- NOTE | 2019-04-09 07:45 | NUR ---
RN NOTES RT AT BEDSIDE, SUCTIONING THE PATIENT WHEN PATIENT PULLED OUT THE IV CATHETER ON THE LEFT FOREARM. BLEEDING CONTROLLED. PATIENT CLEANED. WILL REINSERT A NEW ONE.
[2019-04-09 08:00] VITALS: BP_SYST 115; BP_SYST 121; BP_DIAS 63; BP_DIAS 70
[2019-04-09] MEDS: RIFAXIMIN 550 MG TABLET GT SCH ×2 (09:51→16:55)
[2019-04-09] MEDS: DIVALPROEX SODIUM 125 MG CAP.SPRINK GT SCH ×2 (09:51→16:55)
[2019-04-09] MEDS: FINASTERIDE (5 MG) 5 MG TABLET GT SCH (09:51)
[2019-04-09] MEDS: TIMOLOL 0.5% SOLN OPHTH 5 ML BOTTLE EACHEYE SCH (10:21)
[2019-04-09 12:00] VITALS: BP 120/70
[2019-04-09 16:00] VITALS: BP 118/62
[2019-04-09] MEDS: LACTOBACILLUS RHAMNOSUS GG 1 EACH CAP.SPRINK GT SCH (16:55)
[2019-04-09] MEDS ORDERED: VANCOMYCIN HCL 0.75 GM in IV D5W 250 ML IV SCH (17:00)
--- NOTE | 2019-04-09 18:00 | NUR ---
RN NOTES SEEN AND EXAMINED BY DR. BYRNE. WITH VERBAL ORDERS TO CONTINUE ALL HOME MEDICATIONS. TMS FORM PRINTED AND SENT TO PHARMACY
[2019-04-09] MEDS: ENOXAPARIN SODIUM 40 MG/0.4 ML DISP.SYRIN SQ SCH (18:39)
--- NOTE | 2019-04-09 19:26 | NUR ---
RN NOTES ENDORSED FOR CONTINUITY OF CARE. NOT ON ANY FORM OF DISTRESS. ALL NURSING NEEDS ATTENDED AND MET. SAFETY MEASURES IN PLACE AT ALL TIMES. CALL LIGHT PLACED WITHIN REACH
[2019-04-09 20:00] VITALS: BP 156/89
--- NOTE | 2019-04-09 20:00 | NUR ---
MARKET INVESTIGATOR NOTE RECEIVED PT IN BED AWAKE. ABLE TO COMMUNICATED WITH HEAD MOVEMENTS. DTR AT BED SIDE. PT IS C/O HEADACHE, TYLENOL 650 MG VIA GT GIVEN. PT WITH TRACH PROTEX #6 COOL AEROSOL 28% FIO2. 100% O2 SAT AT THIS TIME. ON TELE MONITOR SR SB HR 59. GT INTACT AND PATENT INFUSING JEVITY AT 50 ML/HR, 0 ML RESIDUAL NOTED. GOAL IS 60 ML/HR. D5 1/2 NS AT 50 ML/HR, NO S/S OF INFILTRATION NOTED. REPOSITION HIM FOR SKIN MANAGEMENT AND COMFORT. KEPT HIM DRY AND CLEAN. ALL NEEDS ATTENDED. VSS. CONTINUE TO MONITOR HIM.
[2019-04-09] MEDS: IV D5/0.45 NACL 1,000 ML IV PRN (20:04)
[2019-04-09] MEDS: ACETAMINOPHEN 325 MG TABLET PO PRN (20:07)
[2019-04-09] MEDS: LATANOPROST EYE DROP 0.005% 2.5 ML BOTTLE EACHEYE SCH (22:00)
[2019-04-09] MEDS: ATORVASTATIN 10 MG TABLET GT SCH (22:19)
[2019-04-09] MEDS: BENAZEPRIL HCL 20 MG TABLET GT SCH (22:19)
[2019-04-10] VITALS (8 sets, daily range): BP systolic 139–167; BP diastolic 68–93
[2019-04-10] MEDS: IPRATROPIUM NEB FS 0.5 MG/2.5 ML AMPUL.NEB IH SCH ×4 (01:23→19:53)
[2019-04-10] MEDS: PIPERACILLIN /TAZOBACTAM 3.375 G in IV D5W 100 ML IV SCH ×2 (04:35→11:14)
[2019-04-10] MEDS: JEVITY 1.2 CAL 1,000 ML BOTTLE GT PRN (05:25)
[2019-04-10 06:19] LABS: BASOPHILS # (AUTO) 0.1 /CMM (0.0-0.2); BASOPHILS % (AUTO) 1.2 % (0.0-2.0); EOSINOPHILS % (AUTO) 4.9 % (0.0-6.0); HEMATOCRIT 45 % (39-51); HEMOGLOBIN 15.2 g/dL (13.5-17.5); LYMPHOCYTES # (AUTO) 1.1 /CMM (0.8-4.8); LYMPHOCYTES % (AUTO) 19.4 % (20.0-44.0); MEAN CORPUSCULAR HGB CONC 34 g/dl (31.0-36.0); MEAN CORPUSCULAR VOLUME 97 fL (80-96); MONOCYTES # (AUTO) 0.4 /CMM (0.1-1.30); MONOCYTES % (AUTO) 7.6 % (2.0-12.0); NEUTROPHILS # (AUTO) 3.7 /CMM (1.8-8.9); NEUTROPHILS % (AUTO) 66.9 % (43.0-81.0); PLATELET COUNT (AUTO) 138 /CMM (150-450); RED BLOOD CELL COUNT(AUTO) 4.61 MIL/uL (4.5-6.0); WHITE BLOOD COUNT (AUTO) 5.5 K/uL (4.3-11.0)
[2019-04-10 06:37] LABS: CALCIUM, SERUM 8.3 mg/dL (8.5-10.1); CREATININE 0.8 mg/dL (0.6-1.3); POTASSIUM 3.3 mmol/L (3.5-5.1)
--- NOTE | 2019-04-10 06:44 | NUR ---
SPECIFICATIONS WRITER NOTE PT IN BED ASLEEP, AROUSABLE. NO DISTRESS OR DISCOMFORT NOTED. NO S/S OF PAIN NOTED. ON TELE MONITOR SR/SB WITH OCCASIONALLY PAC HR 52. REMAIN ON COOL AEROSOL 28%. SIDE RAILS UP X 2. CALL LIGHT WITHIN REACH. VSS. WILL ENDORSE TO DAY SHIFT NURSE FOR CONTINUE TO CARE.
--- NOTE | 2019-04-10 07:15 | NUR ---
REPROGRAPHICS ASSOCIATE OPENING NOTES RECEIVED REPORT FROM PM NURSE.PT IN BED AWAKE. ABLE TO COMMUNICATED WITH HEAD MOVEMENTS. WITH TRACH PROTEX #6 COOL AEROSOL 28% FIO2. 100% O2 SAT AT THIS TIME. ON TELE MONITOR SR HR 60. GT INTACT AND PATENT INFUSING JEVITY AT 60 ML/HR.D5 1/2 NS AT 50 ML/HR, NO S/S OF INFILTRATION NOTED. ASPIRATION AND SAFETY MEASURES IN PLACE.BED ALARM ON.BED IS LOCKED AND IN LOW POSITION.CALL LIGHT IN REACH.WILL CONTINUE TO MONITOR.
[2019-04-10] MEDS: RIFAXIMIN 550 MG TABLET GT SCH ×2 (08:24→16:25)
[2019-04-10] MEDS: DIVALPROEX SODIUM 125 MG CAP.SPRINK GT SCH ×2 (08:24→16:25)
[2019-04-10] MEDS: FINASTERIDE (5 MG) 5 MG TABLET GT SCH (08:24)
[2019-04-10] MEDS: TIMOLOL 0.5% SOLN OPHTH 5 ML BOTTLE EACHEYE SCH (08:25)
[2019-04-10] MEDS: LACTOBACILLUS RHAMNOSUS GG 1 EACH CAP.SPRINK GT SCH ×2 (08:25→16:25)
[2019-04-10] MEDS ORDERED: POTASSIUM CHLORIDE 20 MEQ TAB.PRT.SR PO SCH (10:00)
[2019-04-10] MEDS ORDERED: Z GUARD REMEDY 2 OZ OINT TP PRN (10:00)
[2019-04-10] MEDS: Z GUARD REMEDY 2 OZ OINT TP SCH (10:00)
--- NOTE | 2019-04-10 10:01 | NUR ---
WOUND CARE CONSULT: PT PRESENTS WITH SLIGHT REDNESS TO PENIS AND SACRAL SCARRING WHICH EXTENDS TO BUTTOCKS, PRESENT ON ADMISSION. RECOMMENDATIONS MADE FOR SKIN PROTECTION. DISCUSSED WITH NURSING STAFF. ISOFLEX LOW AIRLOSS BED TO BE PLACED WHEN AVAILABLE. WILL SEE PRN. JONES IN AGREEMENT WITH PLAN OF CARE. Addendum: 04/10/19 at 1002 by CALI THORNE WNDNU Amended: Links added.
[2019-04-10] MEDS: POTASSIUM CHLORIDE 20 MEQ POWDER PACKET GT SCH ×2 (11:14→12:37)
[2019-04-10] MEDS ORDERED: DIATR MEGLU/DIATRIZOATE SODIUM 30 ML BOTTLE (GASTROGRAPHIN) ONE (13:59)
--- NOTE | 2019-04-10 14:00 | NUR ---
STAVE INSPECTOR NOTE PATIENT GT COME OFF.BALLOON WAS BROKEN.REINSERTED WITH 20FR. MADE AWARE.GOT NEW ORDER FOR GI CONSULT.WILL CONTINUE TO MONITOR.
--- NOTE | 2019-04-10 19:16 | NUR ---
DURALUMIN MECHANIC CLOSING NOTES PT IN BED AWAKE. ABLE TO COMMUNICATED WITH HEAD MOVEMENTS. AT BEDSIDE.AWAITING FOR GI CONSULT.BARGEMAN LISANDRO MADE AWARE. WITH TRACH PROTEX #6 COOL AEROSOL 28% FIO2. 100% O2 SAT AT THIS TIME. ON TELE MONITOR SR HR 62. RELAYED KUB RESULT TO .WAIT FOR GI TO ASSESS PATIENT BEFORE START FEEDING..D5 1/2 NS AT 50 ML/HR, NO S/S OF INFILTRATION NOTED. ASPIRATION AND SAFETY MEASURES IN PLACE.BED ALARM ON.BED IS LOCKED AND IN LOW POSITION.SKIN INTACT .NO WOUNDS.SACRAL OLD SCARING AND PENIS REDNESS FROM OLD HEALED OPEN SKIN. CALL LIGHT IN REACH.ENDORSED TO PM NURSE FOR BULMARO.
[2019-04-10] MEDS ORDERED: POTASSIUM CHLORIDE 10 MEQ/50 ML PREMIXED IVPB FOR PERIPHERAL LINE IV ONE (20:00)
--- NOTE | 2019-04-10 20:00 | NUR ---
CREATIVE SERVICES INTERN NOTE PT IN BED ASLEEP, AROUSABLE. ABLE TO COMMUNICATE WITH FACIAL EXPRESSIONS. ON COOL AEROSOL 28 % FIO2 PORTEX 6 AND O2 5LPM. O2 SAT 100%. NO DISTRESS OR DISCOMFORT NOTED. NO S/S OF PAIN NOTED. DR BYRNE VISITED THE PT AND OK TO CONTINUE THE GT FEEDING AT 60 ML/HR, 0 ML RESIDUAL NOTED. IVF D5 1/2 NS @ 50 ML/HR, NO S/S OF INFILTRATION NOTED. ON TELE SR HR 60. KEPT HOB ELEVATED. SIDE RAILS UP X 2 AND CALL LIGHT WITHIN REACH. VSS CONTINUE TO MONITOR HIM.
[2019-04-10] MEDS: POTASSIUM CL. PREMIX PERIPHER. 50 ML IV SCH ×2 (20:30→21:28)
[2019-04-10] MEDS: ENOXAPARIN SODIUM 40 MG/0.4 ML DISP.SYRIN SQ SCH ×2 (21:00→21:57)
[2019-04-10] MEDS: BENAZEPRIL HCL 20 MG TABLET GT SCH (21:27)
[2019-04-10] MEDS: ATORVASTATIN 10 MG TABLET GT SCH (21:27)
[2019-04-10] MEDS: LATANOPROST EYE DROP 0.005% 2.5 ML BOTTLE EACHEYE SCH (21:28)
[2019-04-10] MEDS: AMOXICILLIN TRIHYDRATE 250 MG CAPSULE PO SCH (21:29)
--- NOTE | 2019-04-10 21:30 | NUR ---
WAREHOUSE GUARD NOTE PT PULLED THE IV LINE OUT FROM RT HAND MINOR BLEEDING NOTED. SECURED THE SITE WITH 2X2 GAUZE. ALSO LISANDRO MAR CAME TO INFORM CANCEL NPO STATUS AFTER MIDNIGHT AND DISREGARD EGD IN AM.
--- NOTE | 2019-04-10 22:00 | NUR ---
MANAGER NICU NOTE CHARMAINE CHARGE NURSE INSERTED 20G SL IN LFA RESUMED IVF ORDERED.
[2019-04-11] VITALS: BP 134/72
[2019-04-11] MEDS: IPRATROPIUM NEB FS 0.5 MG/2.5 ML AMPUL.NEB IH SCH ×2 (01:18→08:04)
[2019-04-11 04:00] VITALS: BP 139/81
[2019-04-11] MEDS: AMOXICILLIN TRIHYDRATE 250 MG CAPSULE PO SCH ×2 (05:22→13:01)
[2019-04-11] MEDS: IV D5/0.45 NACL 1,000 ML IV PRN (06:01)
[2019-04-11] MEDS: JEVITY 1.2 CAL 1,000 ML BOTTLE GT PRN (06:01)
--- NOTE | 2019-04-11 06:23 | NUR ---
BUILDER'S LABOURER NOTE PT IN BED ASLEEP, AROUSABLE. NO DISTRESS OR DISCOMFORT NOTED. NO S/S OF PAIN NOTED. ON TELE MONITOR SR/SB. REMAIN ON COOL AEROSOL 28%. SIDE RAILS UP X 2. CALL LIGHT WITHIN REACH. VSS. WILL ENDORSE TO DAY SHIFT NURSE FOR CONTINUE TO CARE.
[2019-04-11 06:42] LABS: BASOPHILS % (AUTO) 0.8 % (0.0-2.0); EOSINOPHILS % (AUTO) 2.7 % (0.0-6.0); HEMATOCRIT 45 % (39-51); HEMOGLOBIN 15.4 g/dL (13.5-17.5); LYMPHOCYTES % (AUTO) 22.6 % (20.0-44.0); MEAN CORPUSCULAR HGB CONC 34 g/dl (31.0-36.0); MEAN CORPUSCULAR VOLUME 97 fL (80-96); MONOCYTES # (AUTO) 0.3 /CMM (0.1-1.30); MONOCYTES % (AUTO) 6.8 % (2.0-12.0); NEUTROPHILS % (AUTO) 67.1 % (43.0-81.0); PLATELET COUNT (AUTO) 168 /CMM (150-450); RED BLOOD CELL COUNT(AUTO) 4.61 MIL/uL (4.5-6.0); WHITE BLOOD COUNT (AUTO) 4.5 K/uL (4.3-11.0)
[2019-04-11 06:50] LABS: CALCIUM, SERUM 8.6 mg/dL (8.5-10.1); CREATININE 0.7 mg/dL (0.6-1.3); POTASSIUM 4.2 mmol/L (3.5-5.1)
--- NOTE | 2019-04-11 07:08 | NUR ---
BURR MILL OPERATOR NOTE NOTED GTF RESIDUAL 400 ML, HELD THE FEEDING. ENDORSE TO NURSE PILLAR TO FOLLOW UP.
--- NOTE | 2019-04-11 07:22 | NUR ---
WOUND CARE CONSULT WOUND CARE RECEIVED CONSULT FOR FOOT/SACRAL REDNESS. WOUND CARE WILL DEFER CONSULT AND ANY TREATMENT PLANS TO PLASTIC SURGICAL TEAM INCLUDING DPM DR BALBUENA WHO ARE CURRENTLY FOLLOWING THIS PATIENT. PATIENT WITH RUBÉN AT 20, WILL SEE PRN.
--- NOTE | 2019-04-11 07:56 | NUR ---
TELE1/RN AM SHIFT INITIAL NOTES RECEIVED PT ASLEEP IN BED, PT OPEN EYES, NO GRIMACING NOTED, NO ACUTE CHANGE OF CONDITION. ON T-PIECE WITH 28% FIO2, SATURATING @ 98%, RESPIRATIONS EVEN & UNLABORED, LUNG SOUNDS DIMINISHED, SUCTION FOR AIRWAY CLEARANCE. ON TELE WITH SINUS DAYNA, HR 58. WITH ON GOING IV INFUSION OF D5 1/2NS @ 50CC/HR, IV SITE PATENT WITH NO S/S INFECTION. GT FEEDING HELD D/T LARGE AMOUNTS OF RESIDUAL WILL RE-CHECK IN AN HOUR. PT IS COMFORTABLE AT THIS TIME, SCHEDULED AM MEDS TO BE GIVEN. CL WITHIN REACHED AND SAFETY MAINTAINED. ON GOING MONITORING.
[2019-04-11 08:00] VITALS: BP 130/74
[2019-04-11] MEDS: LACTOBACILLUS RHAMNOSUS GG 1 EACH CAP.SPRINK GT SCH (08:29)
[2019-04-11] MEDS: TIMOLOL 0.5% SOLN OPHTH 5 ML BOTTLE EACHEYE SCH (08:29)
[2019-04-11] MEDS: DIVALPROEX SODIUM 125 MG CAP.SPRINK GT SCH (08:29)
[2019-04-11] MEDS: FINASTERIDE (5 MG) 5 MG TABLET GT SCH (08:29)
[2019-04-11] MEDS: Z GUARD REMEDY 2 OZ OINT TP SCH (08:30)
[2019-04-11] MEDS: RIFAXIMIN 550 MG TABLET GT SCH (08:30)
--- NOTE | 2019-04-11 08:56 | NUR ---
TELE1/RN MD BRAKE HOLDER PT PULLED OUT HIS IV LINE AGAIN, HARD STICK. CALLED MD BRAKE HOLDER FOR REQUEST FOR MIDLINE. AWAITING FOR RETURN CALL.
--- NOTE | 2019-04-11 10:05 | NUR ---
WOUND CARE: PER NURSING STAFF, PT IS MOVING ABOUT IN BED. AT BEDSIDE. FIRST STEP MATTRESS DISCONTINUED AT THIS TIME. PT'S REFUSING ISOFLEX BED AT THIS TIME. SPOKE WITH PMO ANALYST ABOUT RE-EVALUATING PT'S RUBÉN SCORE. WILL SEE PRN.
--- NOTE | 2019-04-11 10:47 | NUR ---
TELE1/RN FOLLOW-UP SPOKE TO DR. KAUFMAN TO FOLLOW-UP REQUEST FOR MIDLINE FOR PT. PER MD TO D/C IV HYDRATION AND OK WITH NO IV ACCESS. CHARGE NURSE MADE AWARE. MONITORING.
--- NOTE | 2019-04-11 11:15 | NUR ---
MS1/RN GASTRIC RESIDUAL PT NOTED STILL WITH HIGH GASTRIC RESIDUAL ABOUT 200CC, NOTIFIED DR. KAUFMAN WITH NEW ORDER TO RE-START FEEDING @ 40CC/HR AND CHECK RESIDUAL AFTER 6 HOURS (1814). ORDER NOTED AND CARRIED.
--- NOTE | 2019-04-11 13:10 | NUR ---
MS1/SOCIAL WORK ADMINISTRATOR TO [facility] REPORT GIVEN TO CHARGE NURSE MIKEL FOR PT TO BE RE-ADMITTED TO [facility]. REPORT GIVEN TO CONTINUE GT FEEDING @ 40CC/HR (GOAL OF 60CC/HR) AND RECHECK GASTRIC RESIDUAL @ 1815. PT TO BE DISCHARGE SOON.
--- NOTE | 2019-04-11 13:27 | NUR ---
MS1/GAMBRELER PT TRANSFERRED TO [facility] VIA BED IN STABLE CONDITION.
== END 2019-04-11 13:22 | DRG 871 ==
LOC: ER 15:56 → TELE1 20:34 → MEDSG1 04-11 11:14
PROVIDERS: ADMIT Internal Medicine; ATTEND Internal Medicine
DX: A41.9 Sepsis, unspecified organism (principal); J69.0 Pneumonitis due to inhalation of food and vomit; G93.40 Encephalopathy, unspecified; N39.0 Urinary tract infection, site not specified; J96.10 Chronic respiratory failure, unspecified whether with hypoxia or hypercapnia; Z93.0 Tracheostomy status; I11.0 Hypertensive heart disease with heart failure; Z93.1 Gastrostomy status; E86.0 Dehydration; Z86.73 Personal history of transient ischemic attack (TIA), and cerebral infarction without residual deficits; R13.10 Dysphagia, unspecified; Z79.51 Long term (current) use of inhaled steroids; B96.89 Other specified bacterial agents as the cause of diseases classified elsewhere; I25.119 Atherosclerotic heart disease of native coronary artery with unspecified angina pectoris; Z90.79 Acquired absence of other genital organ(s); Z86.718 Personal history of other venous thrombosis and embolism; Z74.01 Bed confinement status; J44.9 Chronic obstructive pulmonary disease, unspecified; F09 Unspecified mental disorder due to known physiological condition; B35.1 Tinea unguium; F03.90 Unspecified dementia, unspecified severity, without behavioral disturbance, psychotic disturbance, mood disturbance, and anxiety; K59.03 Drug induced constipation; T40.605A Adverse effect of unspecified narcotics, initial encounter; Y92.129 Unspecified place in nursing home as the place of occurrence of the external cause; R65.20 Severe sepsis without septic shock; K74.60 Unspecified cirrhosis of liver; H40.9 Unspecified glaucoma; N40.0 Benign prostatic hyperplasia without lower urinary tract symptoms; B96.20 Unspecified Escherichia coli [E. coli] as the cause of diseases classified elsewhere; G40.909 Epilepsy, unspecified, not intractable, without status epilepticus; K72.90 Hepatic failure, unspecified without coma; K75.81 Nonalcoholic steatohepatitis (NASH); G47.419 Narcolepsy without cataplexy
CPT/HCPCS: 31720; 36415; 71045-TC; 74018; 80048-TC; 80076-TC; 80202-TC; 81000-TC; 83605-TC; 84484-TC; 85025-TC; 85730-TC; 87040-TC; 87081-TC; 87086-TC; 87186-TC; 94640-TC; 94664-TC; A4623; A6403; A7526; G0378; J1650; J2543; J3370; J3480; J3490; J7030; J7042; J7050; J7060; Q9963

== ENCOUNTER 2019-08-17 08:59 | Outpatient (CLI) | payer MEDICARE, OTHER ==
[~2019-08-17 08:59] MED LIST changes: +ACET-868 GT; +ALBU1.257 IH; -ASCO500C16 GT; +BENA20TA9 GT; -CHLO15MO2 MM; -CRAN475C GT; -DIVA125T2 GT; -DOCU-270 GT; -DORZ10DR13 EACHEYE; -ERGO400C GT; +FINA5TAB11 GT; +IPRA0.2S9 IH; -LACT-96 GT; +LATA2.5D7 EACHEYE; -MULT473L GT; -NA P133E RC; -POLY17PO4 GT; +PRAV20TA4 GT; +RIFA550T GT; -SENN-18 GT; -SIME80TA15 GT
[2019-08-17] MEDS ORDERED: MIDAZOLAM HCL 5MG/ML VIAL 25 MG/5 ML VIAL IV ONE (12:30)
[2019-08-17] MEDS ORDERED: NALOXONE PREFILLED SYRINGE 2 MG/2 ML SYRINGE IV ONE (12:30)
[2019-08-17] MEDS ORDERED: FENTANYL PF 250MCG/5ML AMPUL IV ONE (12:30)
== END 2019-08-17 23:59 | disposition home or self-care (01) ==
LOC: RAD 08:59
PROVIDERS: ATTEND Internal Medicine
DX: N13.30 Unspecified hydronephrosis (principal); Z46.6 Encounter for fitting and adjustment of urinary device
CPT/HCPCS: 75989; J2250; J2310; J3010

== ENCOUNTER 2020-12-05 09:55 | Outpatient (CLI) | payer MEDICARE, OTHER ==
[~2020-12-05 09:55] MED LIST changes: +LATA2.5D15 EACHEYE; -LATA2.5D7 EACHEYE
== END 2020-12-05 23:59 | disposition home or self-care (01) ==
LOC: CT 09:55
PROVIDERS: ATTEND Internal Medicine
DX: K76.89 Other specified diseases of liver (principal); K56.609 Unspecified intestinal obstruction, unspecified as to partial versus complete obstruction; N13.2 Hydronephrosis with renal and ureteral calculous obstruction; I70.0 Atherosclerosis of aorta; M47.819 Spondylosis without myelopathy or radiculopathy, site unspecified; Z93.1 Gastrostomy status

== ENCOUNTER 2022-05-15 14:12 | Outpatient (CLI) | payer MEDICARE, OTHER | END 2022-05-15 23:59 | disposition home or self-care (01) | LOC: CT 14:12 | PROVIDERS: ATTEND Internal Medicine | DX: N20.0 Calculus of kidney (principal); N20.1 Calculus of ureter; N13.30 Unspecified hydronephrosis; K80.20 Calculus of gallbladder without cholecystitis without obstruction; N32.3 Diverticulum of bladder; N32.89 Other specified disorders of bladder; K80.50 Calculus of bile duct without cholangitis or cholecystitis without obstruction; I70.0 Atherosclerosis of aorta; J98.11 Atelectasis; J98.6 Disorders of diaphragm; K76.89 Other specified diseases of liver; M47.819 Spondylosis without myelopathy or radiculopathy, site unspecified; Z96.0 Presence of urogenital implants ==

== ENCOUNTER → 2024-08-01 23:59 | Inpatient (IN) | payer MEDICARE, OTHER ==
[2023-08-03] VITALS (11 sets, daily range): BP systolic 109–139; BP diastolic 67–80; TEMP 97.9–98.3; O2SAT 96–100
[2023-08-03] MEDS: ERYTHROMYCIN ETHYLSUCCINATE 200 MG/5 ML SUSPENSION GT SCH (12:00)
[2023-08-03] MEDS: IPRATROPIUM NEB FS 0.5 MG/2.5 ML AMPUL.NEB NEB SCH (13:33)
[2023-08-03] MEDS: ALBUTEROL FS 2.5 MG/3 ML VIAL.NEB NEB SCH (13:33)
[2023-08-03] MEDS: CHLORHEXIDINE GLUCONATE 15 ML UDC MM SCH (17:22)
[2023-08-03] MEDS: RIFAXIMIN 550 MG TABLET GT SCH (17:22)
[2023-08-03] MEDS: JEVITY 1.5 CAL LIQUID 1,000 ML BOTTLE GT PRN (19:04)
[2023-08-03] MEDS: BENEFIBER 4 GM 1 EA PACKET GT SCH (21:01)
[2023-08-03] MEDS: VITS A AND D/WHITE PET/LANOLIN 5 GM PACKET TP SCH ×2 (21:03)
[2023-08-03] MEDS: CHOLECALCIFEROL (VITAMIN D 3) 400 UNIT TABLET GT SCH (21:03)
[2023-08-03] MEDS: LATANOPROST EYE DROP 0.005% 2.5 ML BOTTLE EACHEYE SCH (21:03)
[2023-08-03] MEDS: BENAZEPRIL HCL 20 MG TABLET PO SCH (21:04)
[2023-08-03] MEDS: HYDROGEN PEROXIDE 480 ML BOTTLE TP SCH (21:21)
[2023-08-04] VITALS (14 sets, daily range): BP systolic 120–134; BP diastolic 67–72; TEMP 97.6–98.1; O2SAT 94–100
[2023-08-04] MEDS: PENLAC TP SCH (09:00)
[2023-08-04] MEDS: D MANNOSE GT SCH (09:00)
[2023-08-04] MEDS: CRANBERRY GT SCH (09:00)
[2023-08-04] MEDS: HYDROCHLOROTHIAZIDE 25 MG TABLET GT SCH (09:49)
[2023-08-04] MEDS: POTASSIUM CHLORIDE GT SCH (09:49)
[2023-08-04] MEDS: AMLODIPINE BESYLATE 5 MG TABLET GT SCH (09:50)
[2023-08-04] MEDS: FINASTERIDE (5 MG) 5 MG TABLET GT SCH (09:50)
[2023-08-04] MEDS: POLYETHYLENE GLYCOL 3350 17 GM POWD.PACK GT SCH (09:50)
[2023-08-04] MEDS: BIOTIN 5000 MCG GT SCH (09:50)
[2023-08-04] MEDS: SENNOSIDES 8.6 MG TABLET GT SCH (09:51)
[2023-08-04] MEDS: GLYCOPYRROLATE 1 MG TABLET GT PRN (23:42)
[2023-08-05] VITALS (13 sets, daily range): BP systolic 115–145; BP diastolic 76; TEMP 97.2–98.8; O2SAT 95–100
[2023-08-05] MEDS: ACETAMINOPHEN 650 MG/20 ML UDC- SA PATIENTS-PAIN ONLY GT PRN (08:36)
[2023-08-05] MEDS: PHENAZOPYRIDINE HCL 200 MG TABLET GT PRN (15:38)
[2023-08-05] MEDS: HYDROCODONE/APAP 5/325MG TABLET GT PRN (17:48)
[2023-08-06] VITALS (11 sets, daily range): BP systolic 126; BP diastolic 73; TEMP 97.2; O2SAT 96–99
[2023-08-06] MEDS: SUMATRIPTAN SUCCINATE 25 MG TABLET GT PRN (05:20)
[2023-08-06] MEDS: MAGNESIUM HYDROXIDE 30 ML UDC GT PRN (20:00)
[2023-08-07] VITALS (14 sets, daily range): BP systolic 124–140; BP diastolic 69–92; RESP 18; TEMP 97.6–98.8; O2SAT 96–100
[2023-08-07] MEDS: BISACODYL SUPP (10 MG) 10 MG/SUPP.RECT SUPP.RECT RC PRN (06:51)
[2023-08-08] VITALS (12 sets, daily range): BP systolic 118–133; BP diastolic 72–84; TEMP 97.3–97.8; O2SAT 96–99
[2023-08-09] VITALS (12 sets, daily range): BP systolic 127–135; BP diastolic 78–80; TEMP 97.5–97.8; O2SAT 94–99
[2023-08-10] VITALS (11 sets, daily range): BP systolic 124–137; BP diastolic 79–81; TEMP 97.6; O2SAT 96–99
[2023-08-11] VITALS (14 sets, daily range): BP systolic 118–138; BP diastolic 77–80; TEMP 97.9–98; O2SAT 97–100
[2023-08-12] VITALS (15 sets, daily range): BP systolic 122–133; BP diastolic 70–88; TEMP 97.4–98.8; O2SAT 96–100
[2023-08-13] VITALS (14 sets, daily range): BP systolic 115–119; BP diastolic 75–77; TEMP 96.8–97.4; O2SAT 97–100
[2023-08-13] MEDS: ERYTHROMYCIN ETHYLSUCCINATE 200 MG/5 ML SUSPENSION GT SCH (17:43)
[2023-08-13] MEDS: PHENAZOPYRIDINE HCL 200 MG TABLET GT PRN (20:21)
[2023-08-14] VITALS (13 sets, daily range): BP systolic 128–134; BP diastolic 79–82; TEMP 98; O2SAT 95–99
[2023-08-15] VITALS (14 sets, daily range): BP systolic 106–125; BP diastolic 76–81; TEMP 97.8–98.3; O2SAT 95–99
[2023-08-16] VITALS (12 sets, daily range): BP systolic 109–129; BP diastolic 71–87; TEMP 97.1–98; O2SAT 96–100
[2023-08-17] VITALS (11 sets, daily range): BP systolic 122–127; BP diastolic 82–85; TEMP 96.9–97.5; O2SAT 96–98
[2023-08-18] VITALS (11 sets, daily range): BP systolic 114–121; BP diastolic 73–83; TEMP 97.5–98.6; O2SAT 96–99
[2023-08-19] VITALS (14 sets, daily range): BP systolic 118–137; BP diastolic 83–87; TEMP 97.5; O2SAT 93–99
[2023-08-19] MEDS: JEVITY 1.5 CAL LIQUID 1,000 ML BOTTLE GT PRN (05:40)
[2023-08-20] VITALS (12 sets, daily range): BP systolic 107–131; BP diastolic 72–76; TEMP 97.5–98.2; O2SAT 97–99
[2023-08-21] VITALS (15 sets, daily range): BP systolic 113–148; BP diastolic 75–89; TEMP 97.4–98; O2SAT 97–100
[2023-08-22] VITALS (12 sets, daily range): BP systolic 117–131; BP diastolic 84–92; TEMP 97.3–97.8; O2SAT 96–100
[2023-08-23] VITALS (12 sets, daily range): BP systolic 127–132; BP diastolic 62–77; TEMP 98–98.1; O2SAT 96–100
[2023-08-24] VITALS (13 sets, daily range): BP systolic 121–124; BP diastolic 78–81; TEMP 96.4–98; O2SAT 97–99
[2023-08-25] VITALS (14 sets, daily range): BP systolic 117–123; BP diastolic 69–79; TEMP 98.1–98.8; O2SAT 96–99
[2023-08-26] VITALS (12 sets, daily range): BP systolic 120–136; BP diastolic 76–86; TEMP 97.5–98.3; O2SAT 94–98
[2023-08-27] VITALS (12 sets, daily range): BP systolic 104–127; BP diastolic 66–79; TEMP 97.5–98; O2SAT 96–100
[2023-08-28] VITALS (13 sets, daily range): BP systolic 117–130; BP diastolic 72–74; TEMP 98.2; O2SAT 96–99
[2023-08-29] VITALS (13 sets, daily range): BP systolic 117–136; BP diastolic 79–82; TEMP 97.3–98.4; O2SAT 95–100
[2023-08-30] VITALS (12 sets, daily range): BP systolic 115–121; BP diastolic 79–80; TEMP 97.5–97.9; O2SAT 96–98
[2023-08-31] VITALS (13 sets, daily range): BP systolic 125–134; BP diastolic 63–87; TEMP 97.6–98.8; O2SAT 96–100
[2023-09-01] VITALS (13 sets, daily range): BP systolic 112–126; BP diastolic 71–78; TEMP 98.2–98.3; O2SAT 96–100
[2023-09-02] VITALS (11 sets, daily range): BP systolic 126–135; BP diastolic 86–88; TEMP 97.7–98.1; O2SAT 96–98
[2023-09-03] VITALS (15 sets, daily range): BP systolic 118–128; BP diastolic 68–85; TEMP 98.1–98.3; O2SAT 96–99
[2023-09-04] VITALS (13 sets, daily range): BP systolic 127–140; BP diastolic 68–73; TEMP 97.5–99; O2SAT 95–99
[2023-09-05] VITALS (12 sets, daily range): BP systolic 125–151; BP diastolic 70–85; TEMP 97.7–98; O2SAT 97–99
[2023-09-06] VITALS (12 sets, daily range): BP systolic 136–144; BP diastolic 66–73; TEMP 98.2; O2SAT 96–99
[2023-09-07] VITALS (12 sets, daily range): BP systolic 122–128; BP diastolic 75–79; RESP 18; TEMP 97.5–97.9; O2SAT 96–99
[2023-09-08] VITALS (14 sets, daily range): BP systolic 99–132; BP diastolic 60–69; TEMP 98.1–98.4; O2SAT 97–99
[2023-09-09] VITALS (12 sets, daily range): BP systolic 127–132; BP diastolic 78–81; TEMP 97.5–98.3; O2SAT 96–100
[2023-09-10] VITALS (12 sets, daily range): BP systolic 144–145; BP diastolic 78–88; TEMP 97.5–98.1; O2SAT 96–100
[2023-09-11] VITALS (14 sets, daily range): BP systolic 105–137; BP diastolic 59–84; TEMP 97.5–98.1; O2SAT 96–100
[2023-09-11] MEDS: SIMETHICONE SUSP 40 MG/0.6 ML BOTTLE GT PRN (20:57)
[2023-09-12] VITALS (14 sets, daily range): BP systolic 128; BP diastolic 73; TEMP 97.8–98.3; O2SAT 96–98
[2023-09-13] VITALS (12 sets, daily range): BP systolic 115–135; BP diastolic 66–74; TEMP 97.7; O2SAT 96–100
[2023-09-14] VITALS (12 sets, daily range): BP systolic 116–118; BP diastolic 69; TEMP 96.6–97.7; O2SAT 96–100
[2023-09-15] VITALS (12 sets, daily range): BP systolic 122–143; BP diastolic 78–81; TEMP 97.7; O2SAT 95–100
[2023-09-16] VITALS (13 sets, daily range): BP systolic 124–132; BP diastolic 77–92; TEMP 97.6–98.2; O2SAT 94–100
[2023-09-17] VITALS (12 sets, daily range): BP systolic 113–139; BP diastolic 69–72; TEMP 97.2–97.7; O2SAT 96–99
[2023-09-18] VITALS (14 sets, daily range): BP systolic 122–133; BP diastolic 67–68; TEMP 98–98.8; O2SAT 96–100
[2023-09-18] MEDS: PETROLATUM,WHITE PACKET 5 GM PACKET TP SCH (09:00)
[2023-09-19] VITALS (14 sets, daily range): BP systolic 113–132; BP diastolic 62–63; TEMP 97.8–98.2; O2SAT 96–100
[2023-09-19] MEDS: MINERAL OIL 133 ML (PYXIS) 1 EA ENEMA RC PRN (07:09)
[2023-09-20] VITALS (11 sets, daily range): BP systolic 110–134; BP diastolic 61–71; TEMP 98.1–98.3; O2SAT 56–99
[2023-09-21] VITALS (13 sets, daily range): BP systolic 110–124; BP diastolic 70–85; TEMP 98.1; O2SAT 96–100
[2023-09-22] VITALS (13 sets, daily range): BP systolic 106–131; BP diastolic 64–74; TEMP 97–97.5; O2SAT 96–100
[2023-09-22] MEDS: GUAIFENESIN 300 MG/15 ML UDC GT PRN (04:39)
[2023-09-23] VITALS (12 sets, daily range): BP systolic 109; BP diastolic 70; TEMP 97.9; O2SAT 96–100
[2023-09-24] VITALS (13 sets, daily range): BP systolic 127–138; BP diastolic 70–80; TEMP 97.5–97.9; O2SAT 96–100
[2023-09-25] VITALS (13 sets, daily range): BP systolic 116–120; BP diastolic 79–85; TEMP 97.2–98.1; O2SAT 97–100
[2023-09-26] VITALS (12 sets, daily range): BP systolic 111–117; BP diastolic 61–73; TEMP 96.9–98.1; O2SAT 95–99
[2023-09-27] VITALS (15 sets, daily range): BP systolic 123–134; BP diastolic 62–74; TEMP 97.3–98.8; O2SAT 95–99
[2023-09-28] VITALS (13 sets, daily range): BP systolic 131; BP diastolic 83; TEMP 97.5; O2SAT 97–99
[2023-09-29] VITALS (12 sets, daily range): BP systolic 137–140; BP diastolic 75–86; TEMP 97.5–98.8; O2SAT 95–100
[2023-09-30] VITALS (14 sets, daily range): BP systolic 116–158; BP diastolic 72–84; TEMP 97.5–98.8; O2SAT 94–99
[2023-10-01] VITALS (13 sets, daily range): BP systolic 124–127; BP diastolic 68–75; TEMP 97.6–98.8; O2SAT 95–99
[2023-10-02] VITALS (14 sets, daily range): BP systolic 110; BP diastolic 75; TEMP 94.5–97; O2SAT 94–98
[2023-10-03] VITALS (14 sets, daily range): BP systolic 120–128; BP diastolic 69–73; TEMP 97.5–98.8; O2SAT 95–100
[2023-10-04] VITALS (10 sets, daily range): BP systolic 109–122; BP diastolic 75–77; TEMP 97.1–98.1; O2SAT 95–98
[2023-10-04 07:12] LABS: BASOPHILS % (AUTO) 0.9 % (0.0-2.0); EOSINOPHILS # (AUTO) 0.3 K/uL (0.0-0.7); EOSINOPHILS % (AUTO) 8.2 % (0.0-6.0); HEMATOCRIT 38 % (39-51); HEMOGLOBIN 13.1 g/dL (13.5-17.5); LYMPHOCYTES # (AUTO) 1.2 K/uL (0.8-4.8); LYMPHOCYTES % (AUTO) 30.1 % (20.0-44.0); MEAN CORPUSCULAR HEMOGLOBIN 33 PG (26.0-33.0); MEAN CORPUSCULAR HGB CONC 35 g/dl (31.0-36.0); MEAN CORPUSCULAR VOLUME 96 fL (80-96); MONOCYTES # (AUTO) 0.4 K/uL (0.1-1.30); MONOCYTES % (AUTO) 10.6 % (2.0-12.0); NEUTROPHILS % (AUTO) 50.2 % (43.0-81.0); PLATELET COUNT (AUTO) 113 K/uL (150-450); RED BLOOD CELL COUNT(AUTO) 3.96 MIL/uL (4.5-6.0); RED CELL DISTRIBUTION WIDTH 14.2 % (11.5-15.0)
[2023-10-04 07:50] LABS: CALCIUM, SERUM 9.3 mg/dL (8.5-10.1); CARBON DIOXIDE 25 mmol/L (21-32); CHLORIDE 101 mmol/L (98-107); CREATININE 0.8 mg/dL (0.6-1.3); GLUCOSE 97 mg/dL (74-106); POTASSIUM 3.9 mmol/L (3.5-5.1); SODIUM SERUM 136 mmol/L (136-145); UREA NITROGEN, BLOOD 24 mg/dL (7-18)
[2023-10-05] VITALS (13 sets, daily range): BP systolic 127–133; BP diastolic 77–86; TEMP 97.5–97.6; O2SAT 96–100
[2023-10-06] VITALS (16 sets, daily range): BP systolic 107–114; BP diastolic 67–85; RESP 18; TEMP 97.5–97.9; O2SAT 95–100
[2023-10-07] VITALS (13 sets, daily range): BP systolic 105–108; BP diastolic 75–80; TEMP 98.1–98.3; O2SAT 95–100
[2023-10-08] VITALS (12 sets, daily range): BP systolic 106–121; BP diastolic 73–74; TEMP 97.7–98.2; O2SAT 95–100
[2023-10-09] VITALS (13 sets, daily range): BP systolic 116–121; BP diastolic 70–71; TEMP 97.8–98.1; O2SAT 96–99
[2023-10-10] VITALS (13 sets, daily range): BP systolic 107–129; BP diastolic 68–79; TEMP 97.5–99; O2SAT 95–99
[2023-10-11] VITALS (11 sets, daily range): BP systolic 117–142; BP diastolic 74–82; TEMP 97–98.8; O2SAT 95–100
[2023-10-12] VITALS (13 sets, daily range): BP systolic 96–137; BP diastolic 65–67; RESP 18; TEMP 97.3–98.8; O2SAT 96–100
[2023-10-13] VITALS (12 sets, daily range): BP systolic 105–108; BP diastolic 65–68; TEMP 97.8; O2SAT 95–100
[2023-10-14] VITALS (12 sets, daily range): BP systolic 110–120; BP diastolic 73–75; TEMP 94.3–97.7; O2SAT 95–99
[2023-10-15] VITALS (13 sets, daily range): BP systolic 124–131; BP diastolic 73–76; TEMP 97.8–98; O2SAT 96–99
[2023-10-16] VITALS (13 sets, daily range): BP systolic 99–137; BP diastolic 63–90; TEMP 97.5–98.2; O2SAT 96–100
[2023-10-17] VITALS (13 sets, daily range): BP systolic 120–130; BP diastolic 70–75; TEMP 97.9–98.8; O2SAT 96–100
[2023-10-17] MEDS: ASCORBIC ACID 500 MG TABLET GT SCH (09:35)
[2023-10-18] VITALS (11 sets, daily range): BP systolic 101–113; BP diastolic 62–70; TEMP 97.3–98.8; O2SAT 94–99
[2023-10-19] VITALS (14 sets, daily range): BP systolic 107–109; BP diastolic 64–72; TEMP 97.6–98; O2SAT 92–98
[2023-10-19] MEDS: POLYETHYLENE GLYCOL 3350 17 GM POWD.PACK GT SCH (17:14)
[2023-10-20] VITALS (13 sets, daily range): BP systolic 112–123; BP diastolic 76–99; TEMP 97.4–98; O2SAT 96–99
[2023-10-21] VITALS (13 sets, daily range): BP systolic 118; BP diastolic 71–75; TEMP 97.8–98.1; O2SAT 96–99
[2023-10-22] VITALS (12 sets, daily range): BP systolic 126–129; BP diastolic 79–81; TEMP 97.5; O2SAT 95–99
[2023-10-23] VITALS (16 sets, daily range): BP systolic 112–122; BP diastolic 71–75; TEMP 97.5–98.2; O2SAT 92–99
[2023-10-24] VITALS (13 sets, daily range): BP systolic 124–126; BP diastolic 72–80; TEMP 97.8–97.9; O2SAT 66–99
[2023-10-25] VITALS (11 sets, daily range): BP systolic 121–135; BP diastolic 73; TEMP 97.6–98; O2SAT 95–99
[2023-10-26] VITALS (18 sets, daily range): BP systolic 118–138; BP diastolic 75–81; TEMP 97.6–97.9; O2SAT 94–100
[2023-10-27] VITALS (12 sets, daily range): BP systolic 111–122; BP diastolic 63–71; TEMP 96.4–98.6; O2SAT 96–100
[2023-10-27] MEDS: BIOTENE MC SCH (21:26)
[2023-10-28] VITALS (13 sets, daily range): BP systolic 147; BP diastolic 73; TEMP 98.8; O2SAT 95–100
[2023-10-28] MEDS: BENAZEPRIL HCL 20 MG TABLET GT SCH (21:35)
[2023-10-29] VITALS (13 sets, daily range): BP systolic 119–121; BP diastolic 79–80; TEMP 97.4–98.1; O2SAT 96–99
[2023-10-30] VITALS (13 sets, daily range): BP systolic 109–136; BP diastolic 68–79; TEMP 97.9–98.8; O2SAT 95–100
[2023-10-31] VITALS (10 sets, daily range): BP systolic 129–134; BP diastolic 79–82; TEMP 97.5–98.8; O2SAT 96–100
[2023-10-31] MEDS: TUBERCULIN,PURIF.PROT.DERIV. 5 TU/0.1 ML VIAL ID SCH (14:57)
[2023-11-01] VITALS (13 sets, daily range): BP systolic 131; BP diastolic 69; TEMP 97.9; O2SAT 95–100
[2023-11-02] VITALS (14 sets, daily range): BP systolic 114–121; BP diastolic 70–79; TEMP 97.8–98; O2SAT 96–99
[2023-11-03] VITALS (13 sets, daily range): BP systolic 111–149; BP diastolic 67–82; TEMP 97.9–98; O2SAT 93–100
[2023-11-04] VITALS (15 sets, daily range): BP systolic 113–119; BP diastolic 68–76; TEMP 97.3–97.6; O2SAT 95–100
[2023-11-05] VITALS (14 sets, daily range): BP systolic 113–133; BP diastolic 68–72; TEMP 97.3; O2SAT 96–100
[2023-11-06] VITALS (13 sets, daily range): BP systolic 132; BP diastolic 78; RESP 18; TEMP 96.9; O2SAT 95–100
[2023-11-06] MEDS: TWOCAL HN 1,000 ML LIQUID GT PRN (17:32)
[2023-11-07] VITALS (13 sets, daily range): BP systolic 112–149; BP diastolic 73–79; TEMP 97.5–98; O2SAT 96–99
[2023-11-08] VITALS (15 sets, daily range): BP systolic 131–139; BP diastolic 71–76; TEMP 97.2–98; O2SAT 96–99
[2023-11-09] VITALS (14 sets, daily range): BP systolic 106–117; BP diastolic 69–79; TEMP 97.3–97.5; O2SAT 95–99
[2023-11-10] VITALS (14 sets, daily range): BP systolic 120–134; BP diastolic 63–72; TEMP 97.5–98.6; O2SAT 96–99
[2023-11-11] VITALS (15 sets, daily range): BP systolic 112–119; BP diastolic 76–85; TEMP 97.9–98.8; O2SAT 96–98
[2023-11-12] VITALS (14 sets, daily range): BP systolic 108–139; BP diastolic 66–77; TEMP 97.8–97.9; O2SAT 96–100
[2023-11-13] VITALS (16 sets, daily range): BP systolic 117–118; BP diastolic 65–79; TEMP 97.7–98.4; O2SAT 97–100
[2023-11-14] VITALS (12 sets, daily range): BP systolic 113–117; BP diastolic 73–76; TEMP 97.5–97.9; O2SAT 96–100
[2023-11-15] VITALS (15 sets, daily range): BP systolic 123; BP diastolic 93; TEMP 98; O2SAT 95–99
[2023-11-16] VITALS (14 sets, daily range): BP systolic 109–115; BP diastolic 76–79; TEMP 97–97.5; O2SAT 95–98
[2023-11-17] VITALS (14 sets, daily range): BP systolic 107–131; BP diastolic 67–79; TEMP 97.5–97.8; O2SAT 95–99
[2023-11-18] VITALS (15 sets, daily range): BP systolic 97–140; BP diastolic 62–80; TEMP 97.5–97.8; O2SAT 95–99
[2023-11-19] VITALS (13 sets, daily range): BP systolic 115–141; BP diastolic 73–78; TEMP 97.7–98.4; O2SAT 96–100
[2023-11-20] VITALS (13 sets, daily range): BP systolic 92–108; BP diastolic 66; TEMP 97.5–97.7; O2SAT 95–100
[2023-11-21] VITALS (13 sets, daily range): BP systolic 114–138; BP diastolic 71–76; TEMP 98; O2SAT 96–100
[2023-11-22] VITALS (13 sets, daily range): BP systolic 127–134; BP diastolic 70–90; TEMP 97.7–98; O2SAT 95–99
[2023-11-23] VITALS (11 sets, daily range): BP systolic 108–129; BP diastolic 72; TEMP 97.8–98; O2SAT 96–99
[2023-11-24] VITALS (11 sets, daily range): BP systolic 107–112; BP diastolic 74–75; TEMP 97.2–98.2; O2SAT 95–99
[2023-11-25] VITALS (14 sets, daily range): BP systolic 119–120; BP diastolic 66–94; TEMP 97.8–98.8; O2SAT 95–100
[2023-11-26] VITALS (12 sets, daily range): BP systolic 116–118; BP diastolic 74; TEMP 97.6–98; O2SAT 96–100
[2023-11-26] MEDS: ATROPINE SULFATE OPHTH SOLN 15 ML BOTTLE SL PRN (17:09)
[2023-11-27] VITALS (13 sets, daily range): BP systolic 110–127; BP diastolic 70–78; TEMP 97.3–98.4; O2SAT 96–100
[2023-11-28] VITALS (13 sets, daily range): BP systolic 116–132; BP diastolic 67–79; TEMP 97.8–98.3; O2SAT 94–100
[2023-11-29] VITALS (13 sets, daily range): BP systolic 99–100; BP diastolic 62–67; TEMP 97.5–97.7; O2SAT 95–100
[2023-11-30] VITALS (14 sets, daily range): BP systolic 105; BP diastolic 72–73; TEMP 97.3–97.9; O2SAT 95–100
[2023-12-01] VITALS (14 sets, daily range): BP systolic 103–130; BP diastolic 63–73; TEMP 97.5–97.8; O2SAT 93–100
[2023-12-02] VITALS (12 sets, daily range): BP systolic 101–108; BP diastolic 67–72; TEMP 98.1–98.3; O2SAT 96–100
[2023-12-02] MEDS: TWOCAL HN 1,000 ML LIQUID GT PRN (21:24)
[2023-12-03] VITALS (16 sets, daily range): BP systolic 117–138; BP diastolic 69–77; TEMP 97.6–97.8; O2SAT 96–100
[2023-12-04] VITALS (16 sets, daily range): BP systolic 114–117; BP diastolic 70–79; TEMP 97.3–97.9; O2SAT 95–100
[2023-12-04] MEDS: IPRATROPIUM NEB FS 0.5 MG/2.5 ML AMPUL.NEB NEB PRN (08:08)
[2023-12-05] VITALS (12 sets, daily range): BP systolic 118–135; BP diastolic 72–85; RESP 18; TEMP 97.5–98.1; O2SAT 92–99
[2023-12-06] VITALS (13 sets, daily range): BP systolic 119–131; BP diastolic 71–79; TEMP 97.3–98.8; O2SAT 95–100
[2023-12-07] VITALS (13 sets, daily range): BP systolic 90–102; BP diastolic 65–70; TEMP 97.2–97.3; O2SAT 95–98
[2023-12-07] MEDS: SENNOSIDES 8.6 MG TABLET GT SCH (09:32)
[2023-12-08] VITALS (13 sets, daily range): BP systolic 108–134; BP diastolic 70–72; TEMP 97.3–98.8; O2SAT 95–99
[2023-12-09] VITALS (13 sets, daily range): BP systolic 108–131; BP diastolic 74–79; TEMP 97.9–98.4; O2SAT 96–98
[2023-12-10] VITALS (13 sets, daily range): BP systolic 107–129; BP diastolic 72–78; TEMP 98.1; O2SAT 96–98
[2023-12-11] VITALS (14 sets, daily range): BP systolic 128–150; BP diastolic 78–83; TEMP 97.4–98.8; O2SAT 94–100
[2023-12-12] VITALS (13 sets, daily range): BP systolic 115–154; BP diastolic 75–87; TEMP 98.3–98.8; O2SAT 85–100
[2023-12-13] VITALS (13 sets, daily range): BP systolic 109–119; BP diastolic 69–78; TEMP 97.5–98.1; O2SAT 96–99
[2023-12-14] VITALS (14 sets, daily range): BP systolic 101–106; BP diastolic 72–79; TEMP 97.2–97.9; O2SAT 96–100
[2023-12-15] VITALS (13 sets, daily range): BP systolic 97; BP diastolic 70; TEMP 97.7; O2SAT 95–99
[2023-12-16] VITALS (15 sets, daily range): BP systolic 114–121; BP diastolic 71–72; TEMP 97.9; O2SAT 95–99
[2023-12-17] VITALS (12 sets, daily range): BP systolic 109–116; BP diastolic 70–87; TEMP 97.4–98; O2SAT 94–99
[2023-12-18] VITALS (14 sets, daily range): BP systolic 115–120; BP diastolic 74–81; TEMP 97.8–98.2; O2SAT 96–100
[2023-12-19] VITALS (15 sets, daily range): BP systolic 113–132; BP diastolic 69–82; TEMP 97.7–97.8; O2SAT 96–99
[2023-12-20] VITALS (14 sets, daily range): BP systolic 102–123; BP diastolic 75–76; TEMP 97.5–97.9; O2SAT 96–100
[2023-12-21] VITALS (13 sets, daily range): BP systolic 106–113; BP diastolic 73–75; TEMP 97.5–98.8; O2SAT 96–100
[2023-12-22] VITALS (14 sets, daily range): BP systolic 97–122; BP diastolic 64–77; TEMP 97.5–98.1; O2SAT 93–99
[2023-12-23] VITALS (14 sets, daily range): BP systolic 100–101; BP diastolic 67–74; TEMP 97.7–98; O2SAT 95–100
[2023-12-24] VITALS (14 sets, daily range): BP systolic 119–126; BP diastolic 79–85; TEMP 97.8; O2SAT 96–99
[2023-12-25] VITALS (14 sets, daily range): BP systolic 99–101; BP diastolic 56–63; TEMP 97.8–98; O2SAT 95–99
[2023-12-26] VITALS (14 sets, daily range): BP systolic 116–118; BP diastolic 74–78; TEMP 97.6–98.2; O2SAT 95–98
[2023-12-27] VITALS (13 sets, daily range): BP systolic 97–131; BP diastolic 62–65; TEMP 97.5–98.1; O2SAT 95–99
[2023-12-28] VITALS (13 sets, daily range): BP systolic 102–120; BP diastolic 66–71; TEMP 97.6–98; O2SAT 96–99
[2023-12-29] VITALS (14 sets, daily range): BP systolic 114; BP diastolic 71–72; TEMP 97.5; O2SAT 95–99
[2023-12-30] VITALS (13 sets, daily range): BP systolic 117; BP diastolic 75–84; TEMP 97.4–99.5; O2SAT 95–99
[2023-12-31] VITALS (12 sets, daily range): BP systolic 110–116; BP diastolic 68–83; TEMP 97.5–98.4; O2SAT 96–98
[2024-01-01] VITALS (13 sets, daily range): BP systolic 99–121; BP diastolic 69–84; TEMP 98.1; O2SAT 96–99
[2024-01-01] MEDS: VITAMINS A AND D 56.7 GM TUBE TP SCH (09:00)
[2024-01-02] VITALS (13 sets, daily range): BP systolic 107–118; BP diastolic 70–82; TEMP 98; O2SAT 95–99
[2024-01-02] MEDS: VITAMINS A AND D 56.7 GM TUBE TP SCH (05:33)
[2024-01-02] MEDS: VITS A AND D/WHITE PET/LANOLIN 5 GM PACKET TP SCH (09:42)
[2024-01-03] VITALS (14 sets, daily range): BP systolic 120–160; BP diastolic 71–74; TEMP 94.6–97.7; O2SAT 95–99
[2024-01-04] VITALS (15 sets, daily range): BP systolic 116–134; BP diastolic 66–80; TEMP 97.5–98; O2SAT 91–99
[2024-01-04] MEDS: VITS A AND D/WHITE PET/LANOLIN 5 GM PACKET TP SCH (09:28)
[2024-01-04 15:29] LABS: EOSINOPHILS # (AUTO) 0.2 K/uL (0.0-0.7); HEMATOCRIT 39 % (39-51); HEMOGLOBIN 13.3 g/dL (13.5-17.5); LYMPHOCYTES # (AUTO) 0.9 K/uL (0.8-4.8); MEAN CORPUSCULAR HEMOGLOBIN 32 PG (26.0-33.0); MEAN CORPUSCULAR HGB CONC 34 g/dl (31.0-36.0); MEAN CORPUSCULAR VOLUME 95 fL (80-96); MONOCYTES # (AUTO) 0.2 K/uL (0.1-1.30); MONOCYTES % (AUTO) 5.1 % (2.0-12.0); NEUTROPHILS # (AUTO) 3.2 K/uL (1.8-8.9); NEUTROPHILS % (AUTO) 69.9 % (43.0-81.0); PLATELET COUNT (AUTO) 184 K/uL (150-450); RED BLOOD CELL COUNT(AUTO) 4.15 MIL/uL (4.5-6.0); RED CELL DISTRIBUTION WIDTH 13.2 % (11.5-15.0); WHITE BLOOD COUNT (AUTO) 4.6 K/uL (4.3-11.0)
[2024-01-05] VITALS (14 sets, daily range): BP systolic 95–105; BP diastolic 65–88; RESP 18; TEMP 97.8–98.1; O2SAT 93–100
[2024-01-05 07:16] LABS: APPEARANCE,URINE SLIGHTLY CLOUDY (CLEAR); BILIRUBIN,URINE NEGATIVE (NEGATIVE); BLOOD, URINE TRACE-INTA Ery/uL (NEGATIVE); COLOR,URINE DARK YELLOW (YELLOW); KETONES,URINE NEGATIVE (NEGATIVE); LEUKOCYTE ESTERASE ,URINE 3+ (NEGATIVE); NITRITE, URINE NEGATIVE (NEGATIVE); PROTEIN,URINE 1+ mg/dl (NEGATIVE); UGLUCOSE NEGATIVE (NEGATIVE); UROBILINOGEN,URINE 0.2 EU/dL (0.2)
[2024-01-05 07:19] LABS: ADD URINE CULTURE YES; BACTERIA,URINE Moderate /HPF (None Seen); SQUAMOUS EPITHELIAL CELL,UR Rare /HPF (None Seen)
[2024-01-06] VITALS (13 sets, daily range): BP systolic 100; BP diastolic 73; TEMP 98.6; O2SAT 92–100
[2024-01-07] VITALS (14 sets, daily range): BP systolic 109–124; BP diastolic 70–73; TEMP 97.7–98; O2SAT 96–98
[2024-01-08] VITALS (14 sets, daily range): BP systolic 115–117; BP diastolic 77–79; TEMP 97.6–98.2; O2SAT 96–100
[2024-01-09] VITALS (13 sets, daily range): BP systolic 104–131; BP diastolic 72; TEMP 97.5; O2SAT 97–100
[2024-01-10] VITALS (11 sets, daily range): BP systolic 129–139; BP diastolic 78; TEMP 97.8–98.3; O2SAT 96–99
[2024-01-10 07:07] LABS: BASOPHILS % (AUTO) 0.5 % (0.0-2.0); EOSINOPHILS # (AUTO) 0.5 K/uL (0.0-0.7); EOSINOPHILS % (AUTO) 12.8 % (0.0-6.0); HEMATOCRIT 39 % (39-51); HEMOGLOBIN 13.4 g/dL (13.5-17.5); LYMPHOCYTES # (AUTO) 1.1 K/uL (0.8-4.8); LYMPHOCYTES % (AUTO) 27.3 % (20.0-44.0); MEAN CORPUSCULAR HEMOGLOBIN 33 PG (26.0-33.0); MEAN CORPUSCULAR HGB CONC 35 g/dl (31.0-36.0); MEAN CORPUSCULAR VOLUME 95 fL (80-96); MONOCYTES # (AUTO) 0.3 K/uL (0.1-1.30); MONOCYTES % (AUTO) 8.9 % (2.0-12.0); NEUTROPHILS % (AUTO) 50.5 % (43.0-81.0); PLATELET COUNT (AUTO) 151 K/uL (150-450); RED BLOOD CELL COUNT(AUTO) 4.11 MIL/uL (4.5-6.0); RED CELL DISTRIBUTION WIDTH 13.3 % (11.5-15.0); WHITE BLOOD COUNT (AUTO) 3.9 K/uL (4.3-11.0)
[2024-01-10 07:22] LABS: CALCIUM, SERUM 9.7 mg/dL (8.5-10.1); CHLORIDE 99 mmol/L (98-107); CREATININE 0.8 mg/dL (0.6-1.3); GLUCOSE 119 mg/dL (74-106); POTASSIUM 3.8 mmol/L (3.5-5.1); SODIUM SERUM 134 mmol/L (136-145); UREA NITROGEN, BLOOD 28 mg/dL (7-18)
[2024-01-10 07:38] LABS: CARBON DIOXIDE 29 mmol/L (21-32)
[2024-01-11] VITALS (12 sets, daily range): BP systolic 107; BP diastolic 77; TEMP 97.6; O2SAT 96–98
[2024-01-12] VITALS (14 sets, daily range): BP systolic 119–124; BP diastolic 75–78; TEMP 97.5–97.6; O2SAT 94–99
[2024-01-13] VITALS (14 sets, daily range): BP systolic 98–113; BP diastolic 65–78; TEMP 97.6–98.4; O2SAT 94–99
[2024-01-14] VITALS (14 sets, daily range): BP systolic 124; BP diastolic 74; TEMP 97.5; O2SAT 96–99
[2024-01-15] VITALS (13 sets, daily range): BP systolic 116–117; BP diastolic 76–83; TEMP 97.5–97.8; O2SAT 95–99
[2024-01-16] VITALS (17 sets, daily range): BP systolic 113–138; BP diastolic 73–76; TEMP 98.1–98.4; O2SAT 96–100
[2024-01-17] VITALS (12 sets, daily range): BP systolic 112–138; BP diastolic 72–79; TEMP 97.4–98.1; O2SAT 96–100
[2024-01-18] VITALS (13 sets, daily range): BP systolic 115–122; BP diastolic 77–81; TEMP 97.3–98; O2SAT 96–100
[2024-01-19] VITALS (13 sets, daily range): BP systolic 108–116; BP diastolic 66–79; TEMP 98–98.5; O2SAT 92–99
[2024-01-20] VITALS (14 sets, daily range): BP systolic 114–116; BP diastolic 76–83; TEMP 97.5–97.7; O2SAT 96–99
[2024-01-21] VITALS (16 sets, daily range): BP systolic 110–115; BP diastolic 72–80; TEMP 97.3–97.7; O2SAT 93–98
[2024-01-22] VITALS (13 sets, daily range): BP systolic 112–122; BP diastolic 69–80; TEMP 97.8–98; O2SAT 96–100
[2024-01-23] VITALS (12 sets, daily range): BP systolic 116–117; BP diastolic 82–83; TEMP 97.2–98.1; O2SAT 95–100
[2024-01-24] VITALS (12 sets, daily range): BP systolic 117–142; BP diastolic 75–82; TEMP 97.3–97.7; O2SAT 96–99
[2024-01-25] VITALS (13 sets, daily range): BP systolic 112–132; BP diastolic 75–78; TEMP 97.5–98.1; O2SAT 96–98
[2024-01-26] VITALS (12 sets, daily range): BP systolic 105–113; BP diastolic 66–75; TEMP 97.8–98.4; O2SAT 97–99
[2024-01-27] VITALS (14 sets, daily range): BP systolic 108–117; BP diastolic 70–75; TEMP 97.6–98.2; O2SAT 97–99
[2024-01-28] VITALS (17 sets, daily range): BP systolic 104–127; BP diastolic 72–76; TEMP 97.5; O2SAT 96–99
[2024-01-29] VITALS (13 sets, daily range): BP systolic 104–125; BP diastolic 76–82; TEMP 97.5–97.7; O2SAT 96–99
[2024-01-30] VITALS (13 sets, daily range): BP systolic 112–133; BP diastolic 77–85; TEMP 97.5–98; O2SAT 97–99
[2024-01-31] VITALS (13 sets, daily range): BP systolic 119–140; BP diastolic 76–79; TEMP 97.3–98.8; O2SAT 97–100
[2024-02-01] VITALS (15 sets, daily range): BP systolic 109–111; BP diastolic 71–75; TEMP 97.7–98.1; O2SAT 95–98
[2024-02-02] VITALS (12 sets, daily range): BP systolic 116; BP diastolic 77; TEMP 97.2; O2SAT 95–99
[2024-02-03] VITALS (14 sets, daily range): BP systolic 115–129; BP diastolic 76–79; TEMP 98.1–98.8; O2SAT 96–100
[2024-02-04] VITALS (15 sets, daily range): BP systolic 96–110; BP diastolic 67–76; RESP 20; TEMP 97.7–98.1; O2SAT 94–99
[2024-02-05] VITALS (13 sets, daily range): BP systolic 128–137; BP diastolic 74–82; TEMP 97.8–98.8; O2SAT 65–100
[2024-02-06] VITALS (13 sets, daily range): BP systolic 130–136; BP diastolic 72–76; TEMP 97.5–98.8; O2SAT 96–100
[2024-02-07] VITALS (15 sets, daily range): BP systolic 99–114; BP diastolic 74–77; TEMP 97.9–98; O2SAT 92–99
[2024-02-08] VITALS (13 sets, daily range): BP systolic 104–111; BP diastolic 64–70; TEMP 97.8–97.9; O2SAT 94–99
[2024-02-09] VITALS (15 sets, daily range): BP systolic 112–132; BP diastolic 62–78; TEMP 97.5–97.9; O2SAT 94–100
[2024-02-10] VITALS (13 sets, daily range): BP systolic 101–104; BP diastolic 67–72; TEMP 97.5–98.2; O2SAT 94–100
[2024-02-11] VITALS (12 sets, daily range): BP systolic 108–129; BP diastolic 76–78; TEMP 98.4–100; O2SAT 94–99
[2024-02-12] VITALS (14 sets, daily range): BP systolic 110; BP diastolic 71; TEMP 98.4–98.7; O2SAT 95–98
[2024-02-13] VITALS (12 sets, daily range): BP systolic 104–108; BP diastolic 65–69; TEMP 98.6–98.8; O2SAT 95–98
[2024-02-14] VITALS (13 sets, daily range): BP systolic 95–111; BP diastolic 62–63; TEMP 97.5–99.5; O2SAT 95–98
[2024-02-15] VITALS (13 sets, daily range): BP systolic 103–106; BP diastolic 70–74; TEMP 97.5–98.6; O2SAT 95–100
[2024-02-16] VITALS (13 sets, daily range): BP systolic 103–110; BP diastolic 67–69; TEMP 97.8–98.2; O2SAT 94–99
[2024-02-17] VITALS (13 sets, daily range): BP systolic 102–109; BP diastolic 65–87; TEMP 97.5–97.9; O2SAT 96–100
[2024-02-18] VITALS (12 sets, daily range): BP systolic 100–107; BP diastolic 79–84; TEMP 97.9–99.1; O2SAT 96–99
[2024-02-19] VITALS (12 sets, daily range): BP systolic 115–130; BP diastolic 74–75; TEMP 98.1–98.8; O2SAT 96–100
[2024-02-19] MEDS: VITAMINS A AND D 56.7 GM TUBE TP SCH (21:25)
[2024-02-20] VITALS (13 sets, daily range): BP systolic 130–135; BP diastolic 61–70; TEMP 97.3–98.3; O2SAT 96–100
[2024-02-20] MEDS: VITS A AND D/WHITE PET/LANOLIN 5 GM PACKET TP SCH (09:58)
[2024-02-21] VITALS (12 sets, daily range): BP systolic 132–134; BP diastolic 67–68; TEMP 98–98.3; O2SAT 95–99
[2024-02-21 09:46] LABS: BASOPHILS % (AUTO) 0.6 % (0.0-2.0); EOSINOPHILS # (AUTO) 0.2 K/uL (0.0-0.7); EOSINOPHILS % (AUTO) 3.8 % (0.0-6.0); HEMATOCRIT 39 % (39-51); MEAN CORPUSCULAR HEMOGLOBIN 31 PG (26.0-33.0); MEAN CORPUSCULAR HGB CONC 33 g/dl (31.0-36.0); MEAN CORPUSCULAR VOLUME 95 fL (80-96); MONOCYTES # (AUTO) 0.3 K/uL (0.1-1.30); MONOCYTES % (AUTO) 5.8 % (2.0-12.0); NEUTROPHILS # (AUTO) 3.3 K/uL (1.8-8.9); NEUTROPHILS % (AUTO) 68.8 % (43.0-81.0); PLATELET COUNT (AUTO) 173 K/uL (150-450); RED BLOOD CELL COUNT(AUTO) 4.17 MIL/uL (4.5-6.0); WHITE BLOOD COUNT (AUTO) 4.8 K/uL (4.3-11.0)
[2024-02-21 09:59] LABS: CALCIUM, SERUM 9.4 mg/dL (8.5-10.1); CARBON DIOXIDE 25 mmol/L (21-32); CHLORIDE 100 mmol/L (98-107); CREATININE 0.8 mg/dL (0.6-1.3); GLUCOSE 142 mg/dL (74-106); POTASSIUM 3.9 mmol/L (3.5-5.1); SODIUM SERUM 134 mmol/L (136-145); UREA NITROGEN, BLOOD 23 mg/dL (7-18)
[2024-02-22] VITALS (13 sets, daily range): BP systolic 98–119; BP diastolic 56–89; TEMP 97.5–98.2; O2SAT 95–99
[2024-02-23] VITALS (13 sets, daily range): BP systolic 112–130; BP diastolic 69–70; TEMP 98.1–98.3; O2SAT 95–98
[2024-02-24] VITALS (14 sets, daily range): BP systolic 112; BP diastolic 67–76; TEMP 97.7–97.9; O2SAT 96–98
[2024-02-25] VITALS (13 sets, daily range): BP systolic 107–113; BP diastolic 70–75; TEMP 97.7–97.9; O2SAT 97–99
[2024-02-26] VITALS (13 sets, daily range): BP systolic 95–116; BP diastolic 78–88; TEMP 97.5–98.2; O2SAT 94–100
[2024-02-26] MEDS: PETROLATUM,WHITE PACKET 5 GM PACKET TP SCH ×2 (08:05)
[2024-02-27] VITALS (14 sets, daily range): BP systolic 103–116; BP diastolic 69–71; TEMP 97.5–97.7; O2SAT 95–99
[2024-02-28] VITALS (13 sets, daily range): BP systolic 90–118; BP diastolic 61–79; TEMP 97.5–98; O2SAT 9–99
[2024-02-29] VITALS (11 sets, daily range): BP systolic 122; BP diastolic 76; TEMP 97.9; O2SAT 72–98
[2024-03-01] VITALS (13 sets, daily range): BP systolic 110–125; BP diastolic 62–81; TEMP 97.5–97.8; O2SAT 93–100
[2024-03-02] VITALS (12 sets, daily range): BP systolic 108–111; BP diastolic 69–75; TEMP 97.8–98.8; O2SAT 96–98
[2024-03-03] VITALS (13 sets, daily range): BP systolic 116–136; BP diastolic 72–74; TEMP 98–98.1; O2SAT 96–99
[2024-03-04] VITALS (13 sets, daily range): BP systolic 116–127; BP diastolic 78–80; TEMP 97.9–98.2; O2SAT 96–100
[2024-03-05] VITALS (13 sets, daily range): BP systolic 123–130; BP diastolic 64–77; TEMP 97.7–98; O2SAT 95–100
[2024-03-06] VITALS (13 sets, daily range): BP systolic 131–136; BP diastolic 64–78; RESP 18; TEMP 98.1–98.4; O2SAT 96–99
[2024-03-06] MEDS: BIOTIN 10000 MCG GT SCH (18:00)
[2024-03-07] VITALS (15 sets, daily range): BP systolic 120–136; BP diastolic 78–79; TEMP 98.1; O2SAT 96–99
[2024-03-07] MEDS: BIOTIN 10000 MCG GT SCH (05:32)
[2024-03-08] VITALS (13 sets, daily range): BP systolic 115; BP diastolic 72; TEMP 98.6; O2SAT 95–99
[2024-03-09] VITALS (11 sets, daily range): BP systolic 115; BP diastolic 68; TEMP 97.5; O2SAT 96–99
[2024-03-10] VITALS (11 sets, daily range): BP systolic 104–139; BP diastolic 66–71; TEMP 97.3–97.6; O2SAT 97–100
[2024-03-11] VITALS (13 sets, daily range): BP systolic 112–121; BP diastolic 73–77; TEMP 97.3–97.7; O2SAT 93–98
[2024-03-11] MEDS: CLOTRIMAZOLE 1% 15 GM TUBE TP SCH (09:00)
[2024-03-12] VITALS (13 sets, daily range): BP systolic 105–109; BP diastolic 62–72; TEMP 97.9–98.2; O2SAT 94–99
[2024-03-13] VITALS (12 sets, daily range): BP systolic 131–138; BP diastolic 78–82; TEMP 97.9–98.3; O2SAT 96–100
[2024-03-14] VITALS (14 sets, daily range): BP systolic 122–133; BP diastolic 64–67; TEMP 97.5–98.1; O2SAT 96–99
[2024-03-15] VITALS (13 sets, daily range): BP systolic 124–128; BP diastolic 62–71; TEMP 98–98.1; O2SAT 95–100
[2024-03-16] VITALS (12 sets, daily range): BP systolic 104–125; BP diastolic 71–77; TEMP 98.3–98.8; O2SAT 95–100
[2024-03-17] VITALS (12 sets, daily range): BP systolic 108–120; BP diastolic 69–83; TEMP 97.5–98.1; O2SAT 95–99
[2024-03-18] VITALS (13 sets, daily range): BP systolic 119–134; BP diastolic 64–79; TEMP 97.7–98.4; O2SAT 95–100
[2024-03-19] VITALS (12 sets, daily range): BP systolic 122–129; BP diastolic 67–71; TEMP 97.8–98.6; O2SAT 95–100
[2024-03-20] VITALS (11 sets, daily range): BP systolic 117; BP diastolic 85; TEMP 98.1; O2SAT 96–98
[2024-03-21] VITALS (12 sets, daily range): BP systolic 104–108; BP diastolic 71–77; TEMP 97.3–98.1; O2SAT 96–98
[2024-03-22] VITALS (12 sets, daily range): BP systolic 104–106; BP diastolic 59–72; TEMP 97.7–98.8; O2SAT 95–100
[2024-03-23] VITALS (11 sets, daily range): BP systolic 103–112; BP diastolic 63–68; TEMP 97.7–98.1; O2SAT 96–100
[2024-03-23] MEDS: [UNRECOGNIZED DRUG - OTHER] GT SCH (17:00)
[2024-03-24] VITALS (15 sets, daily range): BP systolic 121–136; BP diastolic 66–78; TEMP 97.6–98; O2SAT 95–99
[2024-03-25] VITALS (13 sets, daily range): BP systolic 106–111; BP diastolic 65–87; TEMP 97.7–98.1; O2SAT 95–99
[2024-03-26] VITALS (12 sets, daily range): BP systolic 115–120; BP diastolic 77; TEMP 97.3–97.7; O2SAT 95–99
[2024-03-27] VITALS (12 sets, daily range): BP systolic 122–144; BP diastolic 75–78; TEMP 97.3–97.6; O2SAT 96–99
[2024-03-28] VITALS (14 sets, daily range): BP systolic 101–109; BP diastolic 71–77; TEMP 97.6–98; O2SAT 96–100
[2024-03-29] VITALS (13 sets, daily range): BP systolic 113–145; BP diastolic 73–82; TEMP 97.7–97.8; O2SAT 95–100
[2024-03-30] VITALS (13 sets, daily range): BP systolic 116–130; BP diastolic 81; TEMP 97.8–97.9; O2SAT 96–100
[2024-03-31] VITALS (16 sets, daily range): BP systolic 104–129; BP diastolic 72–73; TEMP 97.2–98.2; O2SAT 95–99
[2024-04-01] VITALS (14 sets, daily range): BP systolic 113–120; BP diastolic 59–74; TEMP 97.5–97.9; O2SAT 93–100
[2024-04-02] VITALS (14 sets, daily range): BP systolic 110–114; BP diastolic 68–77; TEMP 97.3–98.6; O2SAT 96–100
[2024-04-03] VITALS (12 sets, daily range): BP systolic 109–114; BP diastolic 73–76; TEMP 97.3–98; O2SAT 96–99
[2024-04-04] VITALS (10 sets, daily range): BP systolic 101–107; BP diastolic 70–73; TEMP 98.1–98.3; O2SAT 93–99
[2024-04-05] VITALS (12 sets, daily range): BP systolic 126; BP diastolic 77; TEMP 98.2; O2SAT 96–99
[2024-04-06] VITALS (13 sets, daily range): BP systolic 119; BP diastolic 77–79; RESP 18; TEMP 97.7–98.3; O2SAT 97–100
[2024-04-06] MEDS: PETROLATUM,WHITE PACKET 5 GM PACKET TP SCH (09:48)
[2024-04-07] VITALS (13 sets, daily range): BP systolic 128–136; BP diastolic 72–73; TEMP 98.2–98.6; O2SAT 96–99
[2024-04-08] VITALS (11 sets, daily range): BP systolic 105–121; BP diastolic 78–80; TEMP 97.3–99; O2SAT 9–100
[2024-04-09] VITALS (12 sets, daily range): BP systolic 112–138; BP diastolic 72–79; TEMP 98–98.1; O2SAT 93–99
[2024-04-10] VITALS (13 sets, daily range): BP systolic 110–136; BP diastolic 76–78; TEMP 97.5–98; O2SAT 95–99
[2024-04-11] VITALS (13 sets, daily range): BP systolic 108–125; BP diastolic 76–78; TEMP 97.5–97.8; O2SAT 96–100
[2024-04-12] VITALS (12 sets, daily range): BP systolic 109–118; BP diastolic 68–80; TEMP 97.3–98.3; O2SAT 94–99
[2024-04-13] VITALS (12 sets, daily range): BP systolic 103–112; BP diastolic 74–75; TEMP 97.8; O2SAT 96–100
[2024-04-14] VITALS (17 sets, daily range): BP systolic 116–117; BP diastolic 74–85; TEMP 97.7–98; O2SAT 97–100
[2024-04-15] VITALS (13 sets, daily range): BP systolic 118–147; BP diastolic 72–87; TEMP 98–98.3; O2SAT 95–100
[2024-04-16] VITALS (14 sets, daily range): BP systolic 124–136; BP diastolic 72–77; TEMP 97.6–97.7; O2SAT 95–100
[2024-04-17] VITALS (14 sets, daily range): BP systolic 118–135; BP diastolic 78–83; TEMP 97.3–97.7; O2SAT 95–100
[2024-04-18] VITALS (12 sets, daily range): BP systolic 112–125; BP diastolic 67–83; TEMP 97.3–98; O2SAT 95–100
[2024-04-19] VITALS (13 sets, daily range): BP systolic 122–136; BP diastolic 77–84; TEMP 97.7–98.8; O2SAT 96–100
[2024-04-20] VITALS (13 sets, daily range): BP systolic 120–124; BP diastolic 79–84; TEMP 97.7; O2SAT 94–99
[2024-04-21] VITALS (11 sets, daily range): BP systolic 112–118; BP diastolic 65–73; TEMP 97.5–98.8; O2SAT 96–100
[2024-04-22] VITALS (14 sets, daily range): BP systolic 112–127; BP diastolic 80–83; TEMP 97.5–98; O2SAT 95–98
[2024-04-23] VITALS (13 sets, daily range): BP systolic 110; BP diastolic 66–72; TEMP 97.6–98.4; O2SAT 96–99
[2024-04-24] VITALS (12 sets, daily range): BP systolic 128–131; BP diastolic 62–65; TEMP 98.1–98.6; O2SAT 93–100
[2024-04-25] VITALS (14 sets, daily range): BP systolic 117; BP diastolic 75; TEMP 97.7; O2SAT 9–98
[2024-04-26] VITALS (12 sets, daily range): BP systolic 104–123; BP diastolic 71–81; TEMP 97.7–98.6; O2SAT 94–98
[2024-04-27] VITALS (11 sets, daily range): O2SAT 94–97
[2024-04-28] VITALS (11 sets, daily range): BP systolic 109; BP diastolic 65; TEMP 97.1; O2SAT 95–98
[2024-04-29] VITALS (13 sets, daily range): BP systolic 121–130; BP diastolic 80–87; TEMP 97.6–97.7; O2SAT 97–100
[2024-04-30] VITALS (14 sets, daily range): BP systolic 121–132; BP diastolic 67–81; TEMP 97.6–98.1; O2SAT 96–100
[2024-05-01] VITALS (13 sets, daily range): BP systolic 129–147; BP diastolic 76–78; TEMP 97.5–98.7; O2SAT 96–99
[2024-05-02] VITALS (13 sets, daily range): BP systolic 109–111; BP diastolic 69–82; TEMP 97.9–98; O2SAT 96–98
[2024-05-03] VITALS (12 sets, daily range): BP systolic 128–131; BP diastolic 69–72; TEMP 98.3–98.6; O2SAT 95–100
[2024-05-04] VITALS (15 sets, daily range): BP systolic 122–132; BP diastolic 83; TEMP 97.7–98.4; O2SAT 96–100
[2024-05-05] VITALS (13 sets, daily range): BP systolic 119–122; BP diastolic 74–87; TEMP 98–98.4; O2SAT 95–99
[2024-05-06] VITALS (11 sets, daily range): BP systolic 121–129; BP diastolic 77–84; TEMP 97.5–98; O2SAT 95–99
[2024-05-07] VITALS (13 sets, daily range): BP systolic 109–137; BP diastolic 69–70; RESP 18; TEMP 97.6–98.1; O2SAT 97–99
[2024-05-08] VITALS (13 sets, daily range): BP systolic 115–128; BP diastolic 61–69; TEMP 97.5–98; O2SAT 96–99
[2024-05-09] VITALS (12 sets, daily range): BP systolic 112–127; BP diastolic 62–72; TEMP 98–98.3; O2SAT 96–99
[2024-05-10] VITALS (12 sets, daily range): BP systolic 118–132; BP diastolic 58–71; TEMP 98.1–98.3; O2SAT 91–99
[2024-05-11] VITALS (13 sets, daily range): BP systolic 110–113; BP diastolic 77–78; TEMP 97.9–98; O2SAT 96–99
[2024-05-12] VITALS (12 sets, daily range): BP systolic 106–117; BP diastolic 72–85; TEMP 98.1–98.2; O2SAT 93–99
[2024-05-13] VITALS (12 sets, daily range): BP systolic 128–129; BP diastolic 72–74; TEMP 98.2–98.8; O2SAT 96–100
[2024-05-14] VITALS (12 sets, daily range): BP systolic 118–131; BP diastolic 75; TEMP 98–98.8; O2SAT 96–100
[2024-05-14] MEDS: VITAMINS A AND D 56.7 GM TUBE TP SCH (10:16)
[2024-05-15] VITALS (13 sets, daily range): BP systolic 104–118; BP diastolic 79–80; TEMP 97.3–98; O2SAT 96–98
[2024-05-16] VITALS (12 sets, daily range): BP systolic 108–120; BP diastolic 65–74; TEMP 97.3–97.7; O2SAT 95–98
[2024-05-17] VITALS (13 sets, daily range): BP systolic 122–125; BP diastolic 70–72; TEMP 97.5–97.9; O2SAT 93–100
[2024-05-18] VITALS (14 sets, daily range): BP systolic 113–116; BP diastolic 70–78; TEMP 97.5–97.7; O2SAT 96–100
[2024-05-19] VITALS (13 sets, daily range): BP systolic 126–139; BP diastolic 74–76; TEMP 97.7–98.1; O2SAT 98–100
[2024-05-20] VITALS (11 sets, daily range): BP systolic 111–121; BP diastolic 73–75; TEMP 97.2–98.3; O2SAT 96–100
[2024-05-21] VITALS (12 sets, daily range): BP systolic 111–123; BP diastolic 72–76; TEMP 97.3–98.4; O2SAT 94–98
[2024-05-22] VITALS (12 sets, daily range): BP systolic 132–136; BP diastolic 67–76; TEMP 97.5–98.4; O2SAT 96–99
[2024-05-23] VITALS (15 sets, daily range): BP systolic 103; BP diastolic 68; TEMP 97.3; O2SAT 96–98
[2024-05-24] VITALS (13 sets, daily range): BP systolic 109–123; BP diastolic 65–80; TEMP 97.5–98.8; O2SAT 92–99
[2024-05-25] VITALS (13 sets, daily range): BP systolic 109–117; BP diastolic 76–77; TEMP 96.8–98.1; O2SAT 94–99
[2024-05-26] VITALS (14 sets, daily range): BP systolic 109–125; BP diastolic 65–82; TEMP 98.1–98.2; O2SAT 95–99
[2024-05-27] VITALS (13 sets, daily range): BP systolic 101–122; BP diastolic 61–74; TEMP 97.3–98.2; O2SAT 96–99
[2024-05-28] VITALS (13 sets, daily range): BP systolic 110–128; BP diastolic 71–80; TEMP 98.1–98.7; O2SAT 97–99
[2024-05-29] VITALS (13 sets, daily range): BP systolic 120–124; BP diastolic 81–84; TEMP 98.8–99.3; O2SAT 95–99
[2024-05-29 12:48] LABS: CALCIUM, SERUM 9.5 mg/dL (8.5-10.1); CARBON DIOXIDE 32 mmol/L (21-32); CHLORIDE 94 mmol/L (98-107); GLUCOSE 107 mg/dL (74-106); POTASSIUM 4.3 mmol/L (3.5-5.1); SODIUM SERUM 130 mmol/L (136-145); UREA NITROGEN, BLOOD 30 mg/dL (7-18)
[2024-05-29 13:28] LABS: BASOPHILS % (AUTO) 0.3 % (0.0-2.0); EOSINOPHILS % (AUTO) 0.1 % (0.0-6.0); HEMATOCRIT 41 % (39-51); HEMOGLOBIN 13.6 g/dL (13.5-17.5); LYMPHOCYTES # (AUTO) 0.4 K/uL (0.8-4.8); LYMPHOCYTES % (AUTO) 9.1 % (20.0-44.0); MEAN CORPUSCULAR HEMOGLOBIN 32 PG (26.0-33.0); MEAN CORPUSCULAR HGB CONC 34 g/dl (31.0-36.0); MEAN CORPUSCULAR VOLUME 94 fL (80-96); MONOCYTES # (AUTO) 0.5 K/uL (0.1-1.30); MONOCYTES % (AUTO) 12.3 % (2.0-12.0); NEUTROPHILS # (AUTO) 3.1 K/uL (1.8-8.9); NEUTROPHILS % (AUTO) 78.2 % (43.0-81.0); PLATELET COUNT (AUTO) 126 K/uL (150-450); RED BLOOD CELL COUNT(AUTO) 4.31 MIL/uL (4.5-6.0); RED CELL DISTRIBUTION WIDTH 13.8 % (11.5-15.0); WHITE BLOOD COUNT (AUTO) 3.9 K/uL (4.3-11.0)
[2024-05-29] MEDS: FUROSEMIDE 40 MG/4 ML VIAL IV ONE (21:00)
[2024-05-30] VITALS (13 sets, daily range): BP systolic 100–117; BP diastolic 62–79; TEMP 98.1–98.3; O2SAT 94–100
[2024-05-30 07:24] LABS: CARBON DIOXIDE 30 mmol/L (21-32); CHLORIDE 93 mmol/L (98-107); GLUCOSE 127 mg/dL (74-106); POTASSIUM 3.9 mmol/L (3.5-5.1); SODIUM SERUM 130 mmol/L (136-145); UREA NITROGEN, BLOOD 29 mg/dL (7-18)
[2024-05-30] MEDS: FUROSEMIDE 20 MG/2 ML VIAL IV SCH (09:02)
[2024-05-31] VITALS (10 sets, daily range): BP systolic 101; BP diastolic 64; TEMP 98; O2SAT 9–98
[2024-05-31 07:36] LABS: CALCIUM, SERUM 8.9 mg/dL (8.5-10.1); CARBON DIOXIDE 30 mmol/L (21-32); CHLORIDE 91 mmol/L (98-107); GLUCOSE 105 mg/dL (74-106); SODIUM SERUM 131 mmol/L (136-145); UREA NITROGEN, BLOOD 37 mg/dL (7-18)
[2024-06-01] VITALS (12 sets, daily range): BP systolic 103–110; BP diastolic 68–75; TEMP 98–98.1; O2SAT 95–99
[2024-06-01 08:06] LABS: CALCIUM, SERUM 9.2 mg/dL (8.5-10.1); CARBON DIOXIDE 32 mmol/L (21-32); CHLORIDE 94 mmol/L (98-107); CREATININE 0.9 mg/dL (0.6-1.3); GLUCOSE 114 mg/dL (74-106); POTASSIUM 3.9 mmol/L (3.5-5.1); SODIUM SERUM 132 mmol/L (136-145); UREA NITROGEN, BLOOD 35 mg/dL (7-18)
[2024-06-02] VITALS (12 sets, daily range): BP systolic 116–166; BP diastolic 73–77; TEMP 97.6–98.2; O2SAT 96–100
[2024-06-02 07:44] LABS: CALCIUM, SERUM 9.2 mg/dL (8.5-10.1); CARBON DIOXIDE 30 mmol/L (21-32); CHLORIDE 94 mmol/L (98-107); CREATININE 0.9 mg/dL (0.6-1.3); GLUCOSE 101 mg/dL (74-106); SODIUM SERUM 132 mmol/L (136-145); UREA NITROGEN, BLOOD 35 mg/dL (7-18)
[2024-06-03] VITALS (12 sets, daily range): BP systolic 107–123; BP diastolic 67–81; TEMP 97.9–98; O2SAT 93–98
[2024-06-04] VITALS (13 sets, daily range): BP systolic 122–124; BP diastolic 78–80; TEMP 98–98.5; O2SAT 93–98
[2024-06-05] VITALS (12 sets, daily range): BP systolic 107–126; BP diastolic 70–73; TEMP 96.3–97.5; O2SAT 93–99
[2024-06-06] VITALS (12 sets, daily range): BP systolic 99–125; BP diastolic 58–83; TEMP 97.5–98.1; O2SAT 95–99
[2024-06-07] VITALS (12 sets, daily range): BP systolic 131; BP diastolic 67; RESP 18; TEMP 98.1; O2SAT 96–99
[2024-06-08] VITALS (13 sets, daily range): BP systolic 107–110; BP diastolic 69–80; TEMP 97.8–97.9; O2SAT 96–99
[2024-06-09] VITALS (12 sets, daily range): BP systolic 108–135; BP diastolic 72–78; TEMP 97.5–97.8; O2SAT 96–99
[2024-06-10] VITALS (12 sets, daily range): BP systolic 129–139; BP diastolic 65–69; TEMP 97.8–98.8; O2SAT 95–100
[2024-06-11] VITALS (13 sets, daily range): BP systolic 130–133; BP diastolic 72–75; TEMP 97.5–98.2; O2SAT 97–100
[2024-06-12] VITALS (12 sets, daily range): BP systolic 106–109; BP diastolic 68–70; TEMP 97.4–97.6; O2SAT 96–99
[2024-06-13] VITALS (12 sets, daily range): BP systolic 99–131; BP diastolic 58–88; TEMP 97.2–97.3; O2SAT 94–99
[2024-06-14] VITALS (13 sets, daily range): BP systolic 97–131; BP diastolic 65–83; TEMP 97.5–98.1; O2SAT 96–100
[2024-06-15] VITALS (12 sets, daily range): BP systolic 113–120; BP diastolic 70–73; TEMP 96.7–97.5; O2SAT 96–100
[2024-06-16] VITALS (13 sets, daily range): BP systolic 121–132; BP diastolic 81–84; TEMP 97.9–98.1; O2SAT 97–99
[2024-06-17] VITALS (13 sets, daily range): BP systolic 120–124; BP diastolic 65–83; TEMP 97.5–97.7; O2SAT 97–100
[2024-06-18] VITALS (12 sets, daily range): BP systolic 112–126; BP diastolic 76–78; TEMP 97.8–98; O2SAT 95–99
[2024-06-19] VITALS (15 sets, daily range): BP systolic 109–119; BP diastolic 75–81; TEMP 97.3–97.6; O2SAT 96–100
[2024-06-20] VITALS (10 sets, daily range): BP systolic 110–124; BP diastolic 75–82; TEMP 97.5–98.1; O2SAT 96–100
[2024-06-21] VITALS (13 sets, daily range): BP systolic 115; BP diastolic 71; TEMP 97.4; O2SAT 95–98
[2024-06-22] VITALS (12 sets, daily range): BP systolic 107–114; BP diastolic 65–69; TEMP 97.8–98.1; O2SAT 95–100
[2024-06-23] VITALS (13 sets, daily range): BP systolic 103–111; BP diastolic 69–73; TEMP 97.9–98.1; O2SAT 95–98
[2024-06-24] VITALS (14 sets, daily range): BP systolic 113–121; BP diastolic 73; TEMP 97.8–98.2; O2SAT 96–100
[2024-06-25] VITALS (13 sets, daily range): BP systolic 101–115; BP diastolic 79–80; TEMP 97.5–98.4; O2SAT 96–99
[2024-06-26] VITALS (12 sets, daily range): BP systolic 139; BP diastolic 70; TEMP 98; O2SAT 96–99
[2024-06-26 15:22] LABS: BASOPHILS % (AUTO) 0.8 % (0.0-2.0); EOSINOPHILS # (AUTO) 0.2 K/uL (0.0-0.7); EOSINOPHILS % (AUTO) 3.8 % (0.0-6.0); HEMATOCRIT 39 % (39-51); LYMPHOCYTES # (AUTO) 1.2 K/uL (0.8-4.8); LYMPHOCYTES % (AUTO) 26.1 % (20.0-44.0); MEAN CORPUSCULAR HEMOGLOBIN 32 PG (26.0-33.0); MEAN CORPUSCULAR HGB CONC 34 g/dl (31.0-36.0); MEAN CORPUSCULAR VOLUME 95 fL (80-96); MONOCYTES # (AUTO) 0.7 K/uL (0.1-1.30); MONOCYTES % (AUTO) 14.2 % (2.0-12.0); NEUTROPHILS # (AUTO) 2.6 K/uL (1.8-8.9); NEUTROPHILS % (AUTO) 55.1 % (43.0-81.0); PLATELET COUNT (AUTO) 107 K/uL (150-450); RED BLOOD CELL COUNT(AUTO) 4.07 MIL/uL (4.5-6.0); RED CELL DISTRIBUTION WIDTH 14.6 % (11.5-15.0); WHITE BLOOD COUNT (AUTO) 4.8 K/uL (4.3-11.0)
[2024-06-26 15:29] LABS: CALCIUM, SERUM 9.4 mg/dL (8.5-10.1); CARBON DIOXIDE 30 mmol/L (21-32); CHLORIDE 101 mmol/L (98-107); CREATININE 0.8 mg/dL (0.6-1.3); GLUCOSE 98 mg/dL (74-106); POTASSIUM 4.5 mmol/L (3.5-5.1); SODIUM SERUM 135 mmol/L (136-145); UREA NITROGEN, BLOOD 27 mg/dL (7-18)
[2024-06-26 21:36] LABS: APPEARANCE,URINE CLOUDY (CLEAR); COLOR,URINE DARK YELLOW (YELLOW)
[2024-06-26 21:37] LABS: BILIRUBIN,URINE NEGATIVE (NEGATIVE); BLOOD, URINE 3+ Ery/uL (NEGATIVE); KETONES,URINE NEGATIVE (NEGATIVE); PROTEIN,URINE 2+ mg/dl (NEGATIVE); UGLUCOSE NEGATIVE (NEGATIVE)
[2024-06-26 21:38] LABS: ADD URINE CULTURE YES; BACTERIA,URINE 3+ /HPF (None Seen); LEUKOCYTE ESTERASE ,URINE 3+ (NEGATIVE); NITRITE, URINE POSITIVE (NEGATIVE); SQUAMOUS EPITHELIAL CELL,UR Rare /HPF (None Seen); UROBILINOGEN,URINE 0.2 EU/dL (0.2); WBC,URINE 21-50 /HPF (0-3)
[2024-06-27] VITALS (11 sets, daily range): BP systolic 140; BP diastolic 71; TEMP 95.4; O2SAT 97–99
[2024-06-27 16:30] LABS: ABG BASE EXCESS 2.4 mmol/L (-2.0-3.0); ABG OXYGEN SATURATION 92.8 % (94.0-98.0); ABG PCO2 42.3 mmHg (35.0-48.0); ABG PH 7.425 (7.350-7.450); ABG PO2 65.9 mmHg (83.0-108.0); ABG TOTAL HEMOGLOBIN 13.5 G/dL (13.5-17.5); COHb 0.5 % (0.5-1.5); MetHb 0.2 % (0.0-1.5); O2Hb 92.2 % (94.0-97.0); SITE, ABG RIGHT RADIAL
[2024-06-28] VITALS (12 sets, daily range): BP systolic 111–125; BP diastolic 71–80; TEMP 97.2–98.6; O2SAT 94–99
[2024-06-29] VITALS (13 sets, daily range): BP systolic 113–120; BP diastolic 71–79; TEMP 97.3–98.4; O2SAT 97–99
[2024-06-30] VITALS (13 sets, daily range): BP systolic 111–139; BP diastolic 78–85; TEMP 97.4–97.9; O2SAT 97–100
[2024-07-01] VITALS (14 sets, daily range): BP systolic 106–122; BP diastolic 65–73; TEMP 97.5–98.4; O2SAT 96–99
[2024-07-02] VITALS (14 sets, daily range): BP systolic 108–123; BP diastolic 72–89; TEMP 97.9–98.3; O2SAT 95–100
[2024-07-03] VITALS (12 sets, daily range): BP systolic 112–124; BP diastolic 67–73; TEMP 97.3–98.8; O2SAT 75–100
[2024-07-04] VITALS (14 sets, daily range): BP systolic 115–129; BP diastolic 77–79; TEMP 97.5–97.7; O2SAT 97–100
[2024-07-05] VITALS (13 sets, daily range): BP systolic 120; BP diastolic 76–81; TEMP 97.8–97.9; O2SAT 93–100
[2024-07-06] VITALS (11 sets, daily range): BP systolic 118; BP diastolic 64; TEMP 97.5; O2SAT 95–98
[2024-07-07] VITALS (14 sets, daily range): BP systolic 113–119; BP diastolic 78–80; RESP 18; TEMP 97.3–98.1; O2SAT 96–100
[2024-07-08] VITALS (14 sets, daily range): BP systolic 108–119; BP diastolic 61–66; TEMP 97.6–98.4; O2SAT 94–100
[2024-07-09] VITALS (14 sets, daily range): BP systolic 117–124; BP diastolic 71–75; TEMP 97.6–97.9; O2SAT 96–98
[2024-07-10] VITALS (13 sets, daily range): BP systolic 103–140; BP diastolic 66–71; TEMP 97.5–97.7; O2SAT 96–99
[2024-07-11] VITALS (13 sets, daily range): BP systolic 119–145; BP diastolic 72–75; TEMP 97.5–98; O2SAT 96–99
[2024-07-12] VITALS (13 sets, daily range): BP systolic 110–121; BP diastolic 78–80; TEMP 97.9–98.6; O2SAT 95–100
[2024-07-13] VITALS (12 sets, daily range): BP systolic 108–128; BP diastolic 77–88; TEMP 97.9; O2SAT 96–98
[2024-07-14] VITALS (10 sets, daily range): BP systolic 113–145; BP diastolic 73; TEMP 97.5–97.9; O2SAT 97–99
[2024-07-15] VITALS (13 sets, daily range): BP systolic 110–121; BP diastolic 66–72; TEMP 97.7–97.9; O2SAT 94–100
[2024-07-16] VITALS (12 sets, daily range): BP systolic 121; BP diastolic 77; TEMP 98; O2SAT 95–99
[2024-07-17] VITALS (12 sets, daily range): BP systolic 131; BP diastolic 70; TEMP 97.6; O2SAT 95–99
[2024-07-18] VITALS (12 sets, daily range): BP systolic 122–129; BP diastolic 72–86; TEMP 97.6–98.1; O2SAT 96–99
[2024-07-19] VITALS (13 sets, daily range): BP systolic 103–115; BP diastolic 69–76; TEMP 97.5–98.4; O2SAT 94–99
[2024-07-20] VITALS (13 sets, daily range): BP systolic 105–125; BP diastolic 66–70; TEMP 97.5–98.4; O2SAT 95–98
[2024-07-21] VITALS (11 sets, daily range): BP systolic 113–136; BP diastolic 66–67; TEMP 97.6–97.9; O2SAT 94–98
[2024-07-22] VITALS (13 sets, daily range): BP systolic 113–118; BP diastolic 68–73; TEMP 98–98.6; O2SAT 95–98
[2024-07-23] VITALS (12 sets, daily range): BP systolic 124–131; BP diastolic 63–67; TEMP 97.5–99; O2SAT 97–100
[2024-07-24] VITALS (13 sets, daily range): BP systolic 99–132; BP diastolic 60–61; TEMP 97.5–98; O2SAT 97–99
[2024-07-25] VITALS (13 sets, daily range): BP systolic 109–130; BP diastolic 70–75; TEMP 97.6–97.8; O2SAT 96–99
[2024-07-26] VITALS (11 sets, daily range): BP systolic 119–132; BP diastolic 71–72; TEMP 97.5–98.6; O2SAT 97–99
[2024-07-27] VITALS (15 sets, daily range): BP systolic 114; BP diastolic 68–75; TEMP 97.9–98.1; O2SAT 94–98
[2024-07-28] VITALS (13 sets, daily range): BP systolic 116–118; BP diastolic 74–77; TEMP 96.8–98.1; O2SAT 97–100
[2024-07-29] VITALS (11 sets, daily range): BP systolic 111–122; BP diastolic 70–78; TEMP 97.5–97.9; O2SAT 96–100
[2024-07-30] VITALS (12 sets, daily range): BP systolic 120–135; BP diastolic 76–83; TEMP 97.4–97.7; O2SAT 96–100
[2024-07-31] VITALS (11 sets, daily range): BP systolic 121–136; BP diastolic 72–81; RESP 18; TEMP 97.1–97.7; O2SAT 96–99
[~2024-08-01] VITALS: Ht 172.7 cm; Wt 75.7 kg
[2024-08-01] VITALS (12 sets, daily range): BP systolic 101–127; BP diastolic 68–82; TEMP 97.6–98; O2SAT 96–100
[~2024-08-01 23:59] MED LIST changes: +ACETAMINOPHEN 650 MG/20 ML UDC- SA PATIENTS-FEVER ONLY GT PRN; +ALBUTEROL FS 2.5 MG/0.5 ML VIAL.NEB NEB PRN; +ALBUTEROL FS 2.5 MG/3 ML VIAL.NEB NEB PRN; +BIOTIN 5000 MCG GT SCH; +DIATR MEGLU/DIATRIZOATE SODIUM 30 ML BOTTLE (GASTROGRAPHIN) ONE; +HYDROGEN PEROXIDE 480 ML BOTTLE TP PRN; +IPRATROPIUM NEB FS 0.5 MG/2.5 ML AMPUL.NEB NEB PRN; +NITROGLYCERIN 0.4 MG/TAB BOTTLE SL PRN; +ONDANSETRON 4 MG TAB.RAPDIS GT PRN; +POLYETHYLENE GLYCOL 3350 17 GM POWD.PACK GT SCH; +TUBERCULIN,PURIF.PROT.DERIV. 5 TU/0.1 ML VIAL ID SCH
[2024-08-02] VITALS (14 sets, daily range): BP systolic 109–116; BP diastolic 68–76; TEMP 97.5–97.6; O2SAT 97–100
[2024-08-02] MEDS: JEVITY 1.5 CAL LIQUID 1,000 ML BOTTLE GT PRN (05:37)
[2024-08-03 01:41] VITALS: O2SAT 96
[2024-08-03 01:56] VITALS: O2SAT 97
== END | disposition still patient (30) | DRG 189 ==
LOC: SA 08-02 → UNDOADMIN 08-02
PROVIDERS: ADMIT Internal Medicine; ATTEND Internal Medicine
PROC: 0HBRXZZ Excision of Toe Nail, External Approach (ICD-10-PCS; principal; 2024-03-10)
DX: J96.11 Chronic respiratory failure with hypoxia (principal); F03.93 Unspecified dementia, unspecified severity, with mood disturbance; G93.40 Encephalopathy, unspecified; F03.92 Unspecified dementia, unspecified severity, with psychotic disturbance; I69.191 Dysphagia following nontraumatic intracerebral hemorrhage; I69.198 Other sequelae of nontraumatic intracerebral hemorrhage; I10 Essential (primary) hypertension; I49.5 Sick sinus syndrome; K74.60 Unspecified cirrhosis of liver; N40.1 Benign prostatic hyperplasia with lower urinary tract symptoms; K75.81 Nonalcoholic steatohepatitis (NASH); R13.10 Dysphagia, unspecified; Z93.1 Gastrostomy status; Z87.442 Personal history of urinary calculi; Z87.440 Personal history of urinary (tract) infections; F32.A Depression, unspecified; G43.909 Migraine, unspecified, not intractable, without status migrainosus; Z93.0 Tracheostomy status; B35.1 Tinea unguium; L60.0 Ingrowing nail; L60.3 Nail dystrophy; N20.0 Calculus of kidney; S50.812A Abrasion of left forearm, initial encounter; X58.XXXA Exposure to other specified factors, initial encounter; Y93.9 Activity, unspecified; Y92.230 Patient room in hospital as the place of occurrence of the external cause; Z74.09 Other reduced mobility
CPT/HCPCS: 31720; 36415; 36600; 70360-TC; 71045-TC; 74018; 80048-TC; 81001; 82140-TC; 82803-TC; 83880; 85025-TC; 86140-TC; 86580-TC; 87086-TC; 93307-TC; 94640-TC; 94664-TC; 94760-TC; 94761-TC; 94762-TC; 94799-TC; 97110-TC; 97760-TC; A4217; A4623; A7526; J1940; L8501; Q9963